=== PATIENT | male | born 1980 | race Caucasian/White ===

== ENCOUNTER 2017-08-29 12:37 | Inpatient (IN) | payer MEDICAID ==
[~2017-08-29] VITALS: Ht 165.1 cm; Wt 66.2 kg
[2017-08-29] VITALS (11 sets, daily range): BP systolic 74–160; BP diastolic 33–112
[2017-08-29] MEDS ORDERED: Acetaminophen 650 MG SUPP RECTAL ONE ×2 (12:42→12:45)
[2017-08-29] MEDS ORDERED: Cefepime HCl 1 GM in NS 55 ML IV STA (12:42)
[2017-08-29] MEDS ORDERED: Midazolam for drip 50 MG in NS 90 ML IV ONE (12:45)
[2017-08-29] MEDS ORDERED: Etomidate 40mg/20ml Inj IV ONE (12:45)
[2017-08-29] MEDS ORDERED: Vancomycin 1 GM in NS 275 ML IV ONE (12:45)
[2017-08-29] MEDS ORDERED: Midazolam 2mg/2ml Inj IVP ONE ×3 (12:45→16:00)
--- NOTE | 2017-08-29 13:05 | Emergency Room Report ---
History of Present Illness General Chief Complaint: Overdose Source: EMS Present Illness HPI Paramedics were called to patient's hotel room - possibly by demand generator manager. Patient found unresponsive with drug paraphernalia. Resp rate elevated, but still given Narcan with possible improvement. Glucose was in 50's and D50 given. Repeat glucose in 100's. Patient hot to touch. No evidence of trauma. No other history available. Allergies: Coded Allergies: UNABLE TO ASSESS (Unverified , 08/29/17) Patient History Limited by: medical condition Past Medical History: see triage record Social History: Reports: drug use Social History Narrative from hotel Reviewed Nursing Documentation: PMH: Agreed; PSxH: Agreed Nursing Documentation-PMH Past Medical History: Deferred Review of Systems All Other Systems: limited Physical Exam Vital Signs Date Time Temp Pulse Resp B/P (MAP) Pulse Ox O2 Delivery O2 Flow Rate FiO2 08/29/17 12:28 101.7 138 28 137/115 89 Non-Rebreather 15.0 101.7 Sp02 EP Interpretation: reviewed, abnormal - interpreted as low by me General Appearance: severe distress, Stupor Head: normocephalic, atraumatic Eyes: bilateral eye PERRL - 4 mm, bilateral eye Scleral Injection ENT: dry mucus membranes - gag present Neck: supple Respiratory: respiratory distress, decreased breath sounds Cardiovascular #1: tachycardia Cardiovascular #2: 2+ radial (L), 2+ femoral (R) Gastrointestinal: decreased bowel sounds, scaphoid Genitourinary: normal inspection Musculoskeletal: back normal, digits/nails normal Neurologic: other - stupor, occasionally moving all 4 - mostely at random Psychiatric: other - stupor Skin: other - fine erythematous rash dependent portions Procedures Critical Care Time Critical Care Time Total Critical Care Time: 120 min bedside evaluation and treatment excludes procedures (EKG, intubation, CVP). Reason for critical care: resp failure, severe sepsis, NSTEMI, rhabdomyolysis, hypotension, sedation Possible complications: hypotension, hypertension, MA, shock, arrhythmias, metabolic acidosis, end organ damage, respiratory failure. Interventions: sepsis resuscitation, repeat eval, intubation, antibiotics, bicarb drip. sedation, discussion with admitting MD and CC MD Course: Patient presents with ALOC, fever and hypoxia with h/o drug paraphernalia. Sepsis resuscitation initiated. Even though gag present, severe hypoxia with evidence of aspiration pneumonia. Intubated. Even on vent , hypoxia and acidosis on ABG. Vent changed. Improved oxygenation. Evidence of metabolic acidosis and rhabdo. Bicarb given. Multiple assessments for sedation on versed as well as sepsis re-evaluation. Hypotension - CVP started. Again fluid bolus as venous pressure by ultrasound low. Levophed begun. Improved mentation needing sedation. OG ordered for vomitus (no new aspiration around ET tube). MD at bedside helping with sedation. + troponin - aspirin given. Unable to give metoprolol and not advised to give heparin/lovanox. Discussed with admitting MD as well as critical career services assistant. Patient improved but critical. Consultations: nursing staff, EMS, admitting and CC MD Performed by: Dr. Gibson Tolerated well condition = critical Central Line Central Line : Consent: Emergent Central Line Lumen: triple Maximal Sterile Barrier Tech: yes cap, yes mask, yes sterile gown, yes sterile gloves, yes large sterile sheet, yes hand hygiene, yes chlorhexidine prep Central Line Postion: femoral (R) Anesthesia: Lidocaine cc's of anesthesia: 2 Complications: none Central Line Post Position: sutured, good blood return Attempts: One Patient Tolerated: Well Complications: None Intubation Intubation : Consent: Emergent Intubation Method: orotracheal Tube Size (cm): 7.5 Medications: Etomidate Breath Sounds after Intubation: equal Intubation Complications: no complications Post Intubation Xray: Yes Attempts: One Medical Decision Making Diagnostic Impression: Primary Impression: Severe sepsis Additional Impressions: Respiratory failure Qualified Codes: J96.01 - Acute respiratory failure with hypoxia NSTEMI (non-ST elevated myocardial infarction) Aspiration pneumonia Qualified Codes: J69.0 - Pneumonitis due to inhalation of food and vomit LUCRECIA (acute kidney injury) Rhabdomyolysis Qualified Codes: T79.6XXA - Traumatic ischemia of muscle, initial encounter Substance abuse ER Course Patient is febrile and tachypneic and unresponsive. Differential includes sepsis, pneumonia, bleed amongst others. The patient is in severe distress at this time and needs immediate intubation and sepsis resuscitation. Antibiotics will be started. The patient is intubated with etomidate.. Breath sounds bilaterally at 23 cm at the teeth. Initially O2 saturation was increased up to 98% and then look like it was decreasing possibly due to faulty sensor. Ventilator settings were ordered and a blood gas will be obtained and a half an hour. Based on ABG, vent changed inc peep and rate. Sats now 100%. BP dropped Bolus again and bicarb drip ordered. CVP started. Bicarb bolus. (Temporarily held versed) During CVP, venous pressure appears low - fluids continuing. BP better and Versed restart with bolus dose. Hypotensive again and levophed ordered. Admit Dr. Anaya and consultation with Dr. Andre. Discussed with both. BP better and 5/5 strength all 4 with eyes open. Vomit food. Versed bolus repeated. No new aspiration. OG ordered. Titrating levophed under my direct supervision. Patient to CT with RN and RT. No bleed. Admit ICU - critical. Laboratory Tests Test 08/29/17 10:50 08/29/17 12:45 08/29/17 13:20 08/29/17 13:48 Lactic Acid Level Pending 5.50 mmol/L (0.4-2.0) H White Blood Count 8.5 K/UL (4.8-10.8) Red Blood Count 5.95 M/UL (4.70-6.10) Hemoglobin 18.4 G/DL (14.2-18.0) *H Hematocrit 56.6 % (42.0-52.0) H Mean Corpuscular Volume 95 FL (80-99) Mean Corpuscular Hemoglobin 30.9 PG (27.0-31.0) Mean Corpuscular Hemoglobin Concent 32.5 G/DL (32.0-36.0) Red Cell Distribution Width 11.8 % (11.6-14.8) Platelet Count 359 K/UL (150-450) Mean Platelet Volume 7.7 FL (6.5-10.1) Neutrophils (%) (Auto) 75.7 % (45.0-75.0) H Lymphocytes (%) (Auto) 10.1 % (20.0-45.0) L Monocytes (%) (Auto) 13.3 % (1.0-10.0) H Eosinophils (%) (Auto) 0.1 % (0.0-3.0) Basophils (%) (Auto) 0.8 % (0.0-2.0) Prothrombin Time 12.2 SEC (9.30-11.50) H Prothrombin Time INR 1.2 (0.9-1.1) H PTT 24 SEC (23-33) Sodium Level 141 MMOL/L (136-145) Potassium Level 5.1 MMOL/L (3.5-5.1) Chloride Level 101 MMOL/L (98-107) Carbon Dioxide Level 22 MMOL/L (21-32) Anion Gap 19 mmol/L (5-15) H Blood Urea Nitrogen 31 mg/dL (7-18) H Creatinine 3.6 MG/DL (0.55-1.30) H Estimate Glomerular Filtration Rate 19.0 mL/min (>60) Glucose Level 99 MG/DL (74-106) Calcium Level 8.7 MG/DL (8.5-10.1) Total Bilirubin 1.2 MG/DL (0.2-1.0) H Direct Bilirubin 0.2 MG/DL (0.0-0.3) Aspartate Amino Transferase (AST) 478 U/L (15-37) H Alanine Aminotransferase (ALT) 159 U/L (12-78) H Alkaline Phosphatase 53 U/L (46-116) Total Creatine Kinase > 77589 U/L (26-308) H Troponin I 1.014 ng/mL (0.000-0.056) Pro-B-Type Natriuretic Peptide 2143 pg/mL (0-125) H Total Protein 7.4 G/DL (6.4-8.2) Albumin 4.0 G/DL (3.4-5.0) Globulin 3.4 g/dL Albumin/Globulin Ratio 1.2 (1.0-2.7) Lipase > 2000 U/L (73-393) H Salicylates Level < 0.2 ug/mL (2.8-20) L Acetaminophen Level < 2 MCG/ML (10-30) L Serum Alcohol < 3 mg/dL Urine Color Yellow Urine Appearance Clear Urine pH 7 (4.5-8.0) Urine Specific [place] 1.010 (1.005-1.035) Urine Protein 2+ (NEGATIVE) H Urine Glucose (UA) Negative (NEGATIVE) Urine Ketones 1+ (NEGATIVE) H Urine Occult Blood Negative (NEGATIVE) Urine Nitrite Negative (NEGATIVE) Urine Bilirubin Negative (NEGATIVE) Urine Urobilinogen Normal MG/DL (0.0-1.0) Urine Leukocyte Esterase 1+ (NEGATIVE) H Urine RBC 5-10 /HPF (0 - 0) H Urine WBC 5-10 /HPF (0 - 0) H Urine Squamous Epithelial Cells None /LPF (NONE/OCC) Urine Bacteria Few /HPF (NONE) Urine Opiates Screen Positive (NEGATIVE) H Urine Barbiturates Screen Negative (NEGATIVE) Phencyclidine (PCP) Screen Negative (NEGATIVE) Urine Amphetamines Screen Positive (NEGATIVE) H Urine Benzodiazepines Screen Negative (NEGATIVE) Urine Cocaine Screen Positive (NEGATIVE) H Urine Marijuana (THC) Screen Positive (NEGATIVE) H Arterial Blood pH 7.200 (7.350-7.450) Arterial Blood Partial Pressure CO2 44.6 mmHg (35.0-45.0) Arterial Blood Partial Pressure O2 38.3 mmHg (75.0-100.0) Arterial Blood HCO3 17.4 mmol/L (22.0-26.0) L Arterial Blood Oxygen Saturation 65.8 % (92.0-98.0) L Arterial Blood Base Excess -10.3 Miguel Test Positive Test 08/29/17 17:13 Lactic Acid Level 4.10 mmol/L (0.66-2.22) H EKG Diagnostic Results Rate: tachycardiac ST Segments: no acute changes Rhythm Strip Diag. Results EP Interpretation: yes Rhythm: no PVC's, no ectopy, other - ST Chest X-Ray Diagnostic Results Chest X-Ray Diagnostic Results : Chest X-Ray Ordered: Yes # of Views/Limited/Complete: 1 View Indication: Other EP Interpretation: Yes Interpretation: no effusion, no pneumothorax, other - R infiltrate Impression: Other Electronically Signed by: Electronically signed by Jean Gibson MD CT/MRI/US Diagnostic Results CT/MRI/US Diagnostic Results : Imaging Test Ordered: head Impression motion - no mass or bleed Last Vital Signs Date Time Temp Pulse Resp B/P (MAP) Pulse Ox O2 Delivery O2 Flow Rate FiO2 08/29/17 12:59 101.8 08/29/17 12:28 138 28 137/115 89 Non-Rebreather 15.0 Status: improved Disposition: ADMITTED INPATIENT Condition: Critical Scripts Unable to Obtain Active Prescriptions or Reported Meds Jean Gibson M.D. Aug 29, 2017 13:05
[2017-08-29 13:13] LABS: INR 1.2 (0.9-1.1)
[2017-08-29 13:15] LABS: BASOPHILS % (AUTO) 0.8 % (0.0-2.0); EOSINOPHILS % (AUTO) 0.1 % (0.0-3.0); HEMATOCRIT 56.6 % (42.0-52.0); LYMPHOCYTES % (AUTO) 10.1 % (20.0-45.0); MEAN CORPUSCULAR VOLUME 95 FL (80-99); MONOCYTES % (AUTO) 13.3 % (1.0-10.0); NEUTROPHILS % (AUTO) 75.7 % (45.0-75.0); PLATELET COUNT 359 K/UL (150-450); RED BLOOD COUNT 5.95 M/UL (4.70-6.10); RED CELL DISTRIBUTION WIDTH 11.8 % (11.6-14.8); WHITE BLOOD COUNT 8.5 K/UL (4.8-10.8)
[2017-08-29 13:23] LABS: ANION GAP 19 mmol/L (5-15); BLOOD UREA NITROGEN 31 mg/dL (7-18); CALCIUM 8.7 MG/DL (8.5-10.1); CARBON DIOXIDE 22 MMOL/L (21-32); CHLORIDE 101 MMOL/L (98-107); CREATININE 3.6 MG/DL (0.55-1.30); POTASSIUM 5.1 MMOL/L (3.5-5.1); SODIUM 141 MMOL/L (136-145)
[2017-08-29 13:24] LABS: HEMOGLOBIN 18.4 G/DL (14.2-18.0)
[2017-08-29 13:32] LABS: ALANINE AMINOTRANSFERASE 159 U/L (12-78); ALBUMIN/GLOBULIN RATIO 1.2 (1.0-2.7); ALKALINE PHOSPHATASE 53 U/L (46-116); ASPARTATE AMINO TRANSFERASE 478 U/L (15-37); BILIRUBIN,TOTAL 1.2 MG/DL (0.2-1.0)
[2017-08-29 13:42] LABS: BILIRUBIN,DIRECT 0.2 MG/DL (0.0-0.3)
[2017-08-29 13:51] LABS: CREATINE KINASE > 10000 U/L (26-308)
[2017-08-29 14:13] LABS: APPEARANCE,URINE CLEAR; BILIRUBIN, URINE NEGATIVE (NEGATIVE); GLUCOSE, URINE (UA) NEGATIVE (NEGATIVE); KETONES,URINE 1+ (NEGATIVE); LEUKOCYTE ESTERASE ,URINE 1+ (NEGATIVE); NITRITE,URINE NEGATIVE (NEGATIVE); PH,URINE 7 (4.5-8.0); PROTEIN,URINE 2+ (NEGATIVE); UROBILINOGEN,URINE NORMAL MG/DL (0.0-1.0)
[2017-08-29] MEDS ORDERED: Sodium Bicarbonate 100 ML in NS 1000ml 1,000 ML IV SCH (14:15)
[2017-08-29 14:25] LABS: COLOR,URINE YELLOW
[2017-08-29] MEDS ORDERED: Sodium Bicarbonate 50ml Carp IV ONE (14:30)
[2017-08-29] MEDS ORDERED: Midazolam 2mg/2ml Inj ONE (14:42)
[2017-08-29] MEDS ORDERED: Nitroglycerin Subl 0.4mg tab SL PRN (14:45)
[2017-08-29] MEDS ORDERED: Albuterol/Ipratropium 3ml neb HHN PRN (14:45)
[2017-08-29] MEDS ORDERED: Miralax 17gm pkt ORAL PRN (14:45)
--- NOTE | 2017-08-29 16:42 | Consultation ---
History of Present Illness General Date patient seen: Aug 29, 2017 Chief Complaint: Overdose Present Illness HPI 37 y/o M with unknown medical history is brought to ED from hotel bed on 08/29 after being found unresponsive, diaphoretic w/ drug paraphernalia on bed and restroom (empty heroin bags and needles). BG 53 and initial BP 67/15 per EMS. Given 2 doses of Narcan 2mg. Patient intubated in the ED. febrile up to 102.4. Allergies: Coded Allergies: UNABLE TO ASSESS (Unverified , 08/29/17) Medication History Unable to Obtain Active Prescriptions or Reported Meds Patient History Healthcare decision maker Resuscitation status Advanced Directive on File Patient History Narrative Pmhx: as above Shx: reviewed Fhx: non contributory Review of Systems ROS Narrative unable to obtain Physical Exam Physical Exam Narrative General: intubated, restless HEENT: ETT in place Heart: RRR, no murmurs Lungs: CTA x2 ABD: S+D, ND, BS+ Extremity no edema or cellulitis Last 24 Hour Vital Signs Date Time Temp Pulse Resp B/P (MAP) Pulse Ox O2 Delivery O2 Flow Rate FiO2 08/29/17 16:10 93/54 08/29/17 16:02 112/47 08/29/17 15:58 126/47 08/29/17 15:55 20 08/29/17 15:53 140/81 08/29/17 15:48 76/53 08/29/17 15:43 100 16 82/61 99 Endotracheal Tube 100 08/29/17 15:43 82/61 08/29/17 15:40 22 08/29/17 15:38 83/35 08/29/17 15:34 70/42 08/29/17 15:30 69/33 08/29/17 15:26 64/41 08/29/17 15:23 61/43 08/29/17 15:15 17 08/29/17 15:12 99 20 100 08/29/17 15:07 111 22 74/33 Endotracheal Tube 08/29/17 15:00 18 08/29/17 14:45 24 08/29/17 14:30 22 08/29/17 14:13 24 08/29/17 14:02 102.4 121 27 160/112 98 Mechanical Ventilator 100 102.4 08/29/17 13:53 27 08/29/17 13:38 30 08/29/17 13:23 28 08/29/17 13:10 132 34 Non-Rebreather 08/29/17 12:59 101.8 08/29/17 12:50 124 26 100 08/29/17 12:49 132 34 152/102 90 Non-Rebreather 15.0 08/29/17 12:28 101.7 138 28 137/115 89 Non-Rebreather 15.0 101.7 Laboratory Tests Test 08/29/17 12:45 08/29/17 13:20 08/29/17 13:48 White Blood Count 8.5 K/UL (4.8-10.8) Red Blood Count 5.95 M/UL (4.70-6.10) Hemoglobin 18.4 G/DL (14.2-18.0) *H Hematocrit 56.6 % (42.0-52.0) H Mean Corpuscular Volume 95 FL (80-99) Mean Corpuscular Hemoglobin 30.9 PG (27.0-31.0) Mean Corpuscular Hemoglobin Concent 32.5 G/DL (32.0-36.0) Red Cell Distribution Width 11.8 % (11.6-14.8) Platelet Count 359 K/UL (150-450) Mean Platelet Volume 7.7 FL (6.5-10.1) Neutrophils (%) (Auto) 75.7 % (45.0-75.0) H Lymphocytes (%) (Auto) 10.1 % (20.0-45.0) L Monocytes (%) (Auto) 13.3 % (1.0-10.0) H Eosinophils (%) (Auto) 0.1 % (0.0-3.0) Basophils (%) (Auto) 0.8 % (0.0-2.0) Prothrombin Time 12.2 SEC (9.30-11.50) H Prothromb Time International Ratio 1.2 (0.9-1.1) H Activated Partial Thromboplast Time 24 SEC (23-33) Sodium Level 141 MMOL/L (136-145) Potassium Level 5.1 MMOL/L (3.5-5.1) Chloride Level 101 MMOL/L (98-107) Carbon Dioxide Level 22 MMOL/L (21-32) Anion Gap 19 mmol/L (5-15) H Blood Urea Nitrogen 31 mg/dL (7-18) H Creatinine 3.6 MG/DL (0.55-1.30) H Estimat Glomerular Filtration Rate 19.0 mL/min (>60) Glucose Level 99 MG/DL (74-106) Lactic Acid Level 5.50 mmol/L (0.4-2.0) H Calcium Level 8.7 MG/DL (8.5-10.1) Total Bilirubin 1.2 MG/DL (0.2-1.0) H Direct Bilirubin 0.2 MG/DL (0.0-0.3) Aspartate Amino Transf (AST/SGOT) 478 U/L (15-37) H Alanine Aminotransferase (ALT/SGPT) 159 U/L (12-78) H Alkaline Phosphatase 53 U/L (46-116) Total Creatine Kinase > 76983 U/L (26-308) H Troponin I 1.014 ng/mL (0.000-0.056) Pro-B-Type Natriuretic Peptide 2143 pg/mL (0-125) H Total Protein 7.4 G/DL (6.4-8.2) Albumin 4.0 G/DL (3.4-5.0) Globulin 3.4 g/dL Albumin/Globulin Ratio 1.2 (1.0-2.7) Lipase > 2000 U/L (73-393) H Salicylates Level < 0.2 ug/mL (2.8-20) L Acetaminophen Level < 2 MCG/ML (10-30) L Serum Alcohol < 3 mg/dL Urine Color Yellow Urine Appearance Clear Urine pH 7 (4.5-8.0) Urine Specific [place] 1.010 (1.005-1.035) Urine Protein 2+ (NEGATIVE) H Urine Glucose (UA) Negative (NEGATIVE) Urine Ketones 1+ (NEGATIVE) H Urine Occult Blood Negative (NEGATIVE) Urine Nitrite Negative (NEGATIVE) Urine Bilirubin Negative (NEGATIVE) Urine Urobilinogen Normal MG/DL (0.0-1.0) Urine Leukocyte Esterase 1+ (NEGATIVE) H Urine RBC 5-10 /HPF (0 - 0) H Urine WBC 5-10 /HPF (0 - 0) H Urine Squamous Epithelial Cells None /LPF (NONE/OCC) Urine Bacteria Few /HPF (NONE) Urine Opiates Screen Positive (NEGATIVE) H Urine Barbiturates Screen Negative (NEGATIVE) Phencyclidine (PCP) Screen Negative (NEGATIVE) Urine Amphetamines Screen Positive (NEGATIVE) H Urine Benzodiazepines Screen Negative (NEGATIVE) Urine Cocaine Screen Positive (NEGATIVE) H Urine Marijuana (THC) Screen Positive (NEGATIVE) H Arterial Blood pH 7.200 (7.350-7.450) Arterial Blood Partial Pressure CO2 44.6 mmHg (35.0-45.0) Arterial Blood Partial Pressure O2 38.3 mmHg (75.0-100.0) Arterial Blood HCO3 17.4 mmol/L (22.0-26.0) L Arterial Blood Oxygen Saturation 65.8 % (92.0-98.0) L Arterial Blood Base Excess -10.3 Miguel Test Positive Height (Feet): 5 Height (Inches): 8.00 Weight (Pounds): 180 Medications Current Medications Medications (Trade) Dose Ordered Sig/Krystyna Route PRN Reason Start Time Stop Time Status Last Admin Dose Admin Acetaminophen (Tylenol) 650 mg Q4H PRN ORAL Fever (temp>100.5F) 08/29/17 14:45 09/28/17 14:44 Albuterol/ Ipratropium (Albuterol/ Ipratropium) 3 ml Q4H PRN HHN Shortness of Breath 08/29/17 14:45 09/03/17 14:44 Dextrose (Dextrose 50%) 25 ml STAT PRN IV Hypoglycemia 08/29/17 14:45 09/28/17 14:44 Dextrose (Dextrose 50%) 50 ml STAT PRN IV Hypoglycemia 08/29/17 16:00 09/28/17 15:59 Dextrose/Sodium Chloride 1,000 ml @ 75 mls/hr [id number] IV 08/29/17 14:41 09/28/17 14:40 UNV Heparin Sodium (Porcine) (Heparin 5000 units/ml) 5,000 units EVERY 12 HOURS SUBQ 08/29/17 21:00 09/28/17 20:59 UNV Lorazepam (Ativan 2mg/ml 1ml) 2 mg Q2H PRN IV agitation 08/29/17 14:45 09/05/17 14:44 Morphine Sulfate (Morphine Sulfate) 4 mg Q4H PRN IVP Severe Pain (Pain Scale 7-10) 08/29/17 14:45 09/05/17 14:44 Nitroglycerin (Ntg) 0.4 mg Q5M PRN SL Prn Chest Pain 08/29/17 14:45 09/28/17 14:44 Norepinephrine Bitartrate 4 mg/ Dextrose 250 ml @ 0 mls/hr Q24H IV 08/29/17 14:30 09/28/17 14:29 08/29/17 15:23 Ondansetron HCl (Zofran) 4 mg Q6H PRN IVP Nausea & Vomiting 08/29/17 14:45 09/28/17 14:44 Polyethylene Glycol (Miralax) 17 gm DAILYPRN PRN ORAL Constipation 08/29/17 14:45 09/28/17 14:44 Sodium Bicarbonate 100 ml/Sodium Chloride 1,100 ml @ 300 mls/hr Q3H40M IV 08/29/17 14:15 09/28/17 14:14 08/29/17 14:30 Assessment/Plan Assessment/Plan Abx: IV Vanco x1 08/29 Cefepime x1 08/29 Flagyl x1 08/29 Assessment: Shock Drug overdose -UDS + opiates, amphetaimines, THC, cocaine -+empty heroin bags/?needles (found on hotel room) Rule out sepsis -CXR p -u/a p -Bcx p Multiorgan failure -LUCRECIA -Transaminitis -VDRF (airway protection) Lactic acidosis Rhabdomyolisis Pancreatitis- drug induced -neg alcohol levels Plan: -Continue IV Vanco and Start IV Zosyn pending cultures -f/u cx (Bcx, u/a, ucx) -CXR -f/u cx -Monitor CBC/CMP, temperatures -ETT care -ICU care/support -aspiration precautions Thank you for this consultation. Will continue to follow along with you. Discussed with Krystal Garcia M.D. Aug 29, 2017 16:42
--- NOTE | 2017-08-29 17:05 | Diagnostic Imaging Report ---
Indication: Post intubation Technique: One view of the chest Comparison: None Findings: There is diffuse bilateral interstitial and airspace disease, more severe on the right than on the left. The pleural spaces are clear. The heart size is normal. There is an endotracheal tube in place, tip projecting approximately 6 cm above the alonzo. Impression: Satisfactory the tracheal intubation Bilateral interstitial and airspace disease, more severe on the right than on the left
--- NOTE | 2017-08-29 17:22 | Diagnostic Imaging Report ---
Indications: Altered mental status Technique: Spiral acquisitions obtained through the brain. Angled axial and coronal 5 x 5 mm slices were reconstructed. Total dose length product 2393 mGycm. CTDI vol(s) 70.38 x2 mGy. Dose reduction achieved using automated exposure control Comparison: None. Findings: There is considerable image degradation due to motion artifact despite repeat images obtained. No gross acute intracranial hemorrhage or edema, mass effect, nor midline shift. Normal-sized ventricles and extra axial CSF spaces. Normal white differentiation grossly. The calvarium is intact. Impression: Limited exam due to motion artifact. No gross acute intracranial bleed or mass effect The CT scanner at [facility] is accredited by the [employer] and the scans are performed using protocols designed to limit radiation exposure to as low as reasonably achievable to attain images of sufficient resolution adequate for diagnostic evaluation.
[2017-08-29] MEDS: LORazepam Inj 2mg/ml 1ml IV PRN (18:10)
[2017-08-29] MEDS: D5 1/2NS 1,000 ML IV SCH (18:10)
[2017-08-29] MEDS: Midazolam/D5W 100ml 100 ML IVPB PRN (18:49)
[2017-08-29] MEDS: Piperacillin/Tazobactam 3.375 GM in NS 110 ML IVPB SCH (20:57)
[2017-08-29] MEDS: Pantoprazole Inj IVP SCH (20:57)
[2017-08-29] MEDS: Heparin 5000 units/ml inj SUBQ SCH (20:59)
[2017-08-29] MEDS: Norepinephrine Bitartrate 8 MG in D5W 500ml 492 ML IV SCH (21:16)
--- NOTE | 2017-08-29 21:45 | History and Physical Report ---
DATE OF ADMISSION: 08/29/2017 CONSULTANTS: 1. Arpita Andre M.D. 2. Carl Carranza M.D. CHIEF COMPLAINT: Respiratory failure and sepsis. BRIEF HISTORY: The patient is a 37-year-old male, presents to [place] ER lethargic, currently intubated, sedated, lethargic in the ER, unable to obtain history, from chart. PAST MEDICAL HISTORY: Aspiration pneumonia, rhabdomyolysis, NSTEMI, LUCRECIA, and sepsis. PAST SURGICAL HISTORY: Unknown. MEDICATIONS: Heparin, dextrose, albuterol, Zofran, nitroglycerin, Tylenol, morphine, MiraLAX, and norepinephrine. ALLERGIES: Unable to obtain. SOCIAL HISTORY: Unable to obtain. PHYSICAL EXAMINATION: GENERAL: The patient is intubated, lethargic in the ER [place], unable to obtain history. VITAL SIGNS: Only thing we have is blood pressure currently 93/54. Other vitals are pending. CARDIOVASCULAR: Distant. LUNGS: Distant. ABDOMEN: Bowel sounds positive. Distant. EXTREMITIES: No cyanosis, clubbing, or edema. NEUROLOGIC: The patient is flaccid in bed, not following directions. LABORATORY AND DIAGNOSTIC DATA: Hemoglobin 18.4, otherwise CBC is normal. BMP shows BUN and creatinine 31/3.6, otherwise BMP is normal. Lactic acid 5.5. AST 478 and ALT 159. Troponin 1.014. BMP 2143. Lipase greater than 2000. INR is 1.2 and PTT 24. Urinalysis 2+ protein, 1+ glucose and 1+ leukocyte esterase. Urine toxicology positive for opiates, amphetamine, cocaine, and marijuana. ASSESSMENT: 1. Respiratory failure. 2. Sepsis. 3. Renal failure. 4. Aspiration pneumonia. 5. Non-ST segment elevation myocardial infarction. 6. Acute kidney injury. 7. Elevated liver function test . 8. Elevated troponin. PLAN: 1. troponin. 2. Antibiotic per Infectious Disease. 3. CBC and BMP in the morning. 4. IV fluids. 5. Dr. Andre, Dr. Carranza, Dr. Veloz, Dr. Chavez, and Dr. Mcdonough to consult. Reid Anaya, D.O. DR: YAHIR JOB#: [id number] CC:
[2017-08-29] MEDS: Morphine Sulfate 4mg/ml Inj (IV USE ONLY) IVP PRN (22:24)
[2017-08-30] VITALS (43 sets, daily range): BP systolic 86–127; BP diastolic 39–86
[2017-08-30] MEDS: LORazepam Inj 2mg/ml 1ml IV PRN ×6 (00:03→22:50)
[2017-08-30] MEDS: Midazolam/D5W 100ml 100 ML IVPB PRN ×3 (04:29→18:58)
[2017-08-30 05:48] LABS: HEMATOCRIT 46.5 % (42.0-52.0); HEMOGLOBIN 16.1 G/DL (14.2-18.0); MEAN CORPUSCULAR VOLUME 94 FL (80-99); PLATELET COUNT 219 K/UL (150-450); RED BLOOD COUNT 4.93 M/UL (4.70-6.10); RED CELL DISTRIBUTION WIDTH 12.3 % (11.6-14.8); WHITE BLOOD COUNT 14.6 K/UL (4.8-10.8)
[2017-08-30 05:51] LABS: INR 1.3 (0.9-1.1)
[2017-08-30 05:59] LABS: ANION GAP 10 mmol/L (5-15); BLOOD UREA NITROGEN 44 mg/dL (7-18); CARBON DIOXIDE 24 MMOL/L (21-32); CHLORIDE 109 MMOL/L (98-107); CREATININE 5.2 MG/DL (0.55-1.30); POTASSIUM 5.7 MMOL/L (3.5-5.1); SODIUM 143 MMOL/L (136-145)
[2017-08-30 06:12] LABS: ALANINE AMINOTRANSFERASE 796 U/L (12-78); ALBUMIN 2.6 G/DL (3.4-5.0); ALKALINE PHOSPHATASE 41 U/L (46-116); ASPARTATE AMINO TRANSFERASE 2439 U/L (15-37); BILIRUBIN,DIRECT 0.2 MG/DL (0.0-0.3); BILIRUBIN,TOTAL 1.2 MG/DL (0.2-1.0); LACTATE DEHYDROGENASE 2627 U/L (81-234); PHOSPHORUS 6.3 MG/DL (2.5-4.9)
[2017-08-30] MEDS: D5 1/2NS 1,000 ML IV SCH (06:50)
[2017-08-30] MEDS: Piperacillin/Tazobactam 3.375 GM in NS 110 ML IVPB SCH ×2 (09:23→21:00)
[2017-08-30] MEDS: Pantoprazole Inj IVP SCH ×2 (09:24→21:15)
[2017-08-30] MEDS: Heparin 5000 units/ml inj SUBQ SCH ×2 (09:26→21:16)
--- NOTE | 2017-08-30 09:54 | Infectious Diseases Prog Note ---
Assessment/Plan Assessment/Plan Abx: IV Vanco x1 08/29 Cefepime x1 08/29 Flagyl x1 08/29 Assessment: Shock Drug overdose -UDS + opiates, amphetamines, THC, cocaine -+empty heroin needles (found on hotel room) Aspiration PNA vs ARDS -CXR: Bilateral interstitial and airspace disease, more severe on the right than on the left Rule out sepsis -u/a wbc 5-10, nit neg, leuk +1; cx p -Bcx p Multiorgan failure -LUCRECIA, worsening -Transaminitis, worse (shock liver) -VDRF (airway protection) Lactic acidosis; improving Rhabdomyolisis Pancreatitis- drug induced -neg alcohol levels Plan: -Continue empiric IV Vanco and IV Zosyn #2 pending cultures -f/u cx (Bcx, ucx) -f/u cx -Monitor CBC/CMP, temperatures -ETT care -ICU care/support -aspiration precautions -CBC, CMP, CK, lipase, lactic acid am Thank you for this consultation. Will continue to follow along with you. Discussed with RN. Subjective Allergies: Coded Allergies: UNABLE TO ASSESS (Unverified , 08/29/17) Subjective Tm 102.4 levo on hold wbc 14 LFTs worsening Lactic acid improving Fio2 100% Objective Vital Signs Last 24 Hour Vital Signs Date Time Temp Pulse Resp B/P (MAP) Pulse Ox O2 Delivery O2 Flow Rate FiO2 08/30/17 09:24 20 08/30/17 09:20 111 30 100 08/30/17 08:00 100 08/30/17 08:00 107 08/30/17 08:00 100.0 111 25 109/57 (74) 97 100.0 08/30/17 08:00 Mechanical Ventilator 08/30/17 07:30 110 24 94/52 (66) 97 08/30/17 07:00 111 22 90/39 (56) 96 110 08/30/17 06:37 108 21 100 08/30/17 06:30 110 22 99/56 (70) 97 110 08/30/17 06:00 20 08/30/17 06:00 109 22 101/60 (74) 97 110 08/30/17 05:30 109 22 94/48 (63) 97 110 08/30/17 05:24 108 21 100 08/30/17 05:00 110 22 98/52 (67) 97 110 /20/18 05:00 98/52 720/18 05:00 20 [id number] 05:00 110 26 98/52 (67) 98 110 7/20/18 04:30 108 22 86/43 (57) 97 110 7/20/18 04:30 108 21 100/43 (62) 99 108 7/20/18 04:29 19 7/20/18 04:00 108 7/20/18 04:00 99.8 108 21 86/43 (57) 99 99.8 108 720/18 04:00 100 [id number] 04:00 85/44 720/18 04:00 Mechanical Ventilator 08/30/17 03:30 110 21 108/60 (76) 99 110 720/18 03:26 111 30 100 720/18 03:00 110 21 100/52 (68) 99 109 7/20/18 03:00 100/52 718 02:30 109 23 119/61 (80) 97 109 20/18 02:00 105/60 720/18 02:00 23 08/30/17 02:00 109 22 105/60 (75) 96 109 720/18 01:30 109 25 123/67 (85) 96 109 20/18 01:30 110 22 100 08/30/18 01:00 109/65 720/18 01:00 22 08/30/17 01:00 108 19 109/65 (80) 96 108 20/18 00:30 107 19 110/63 (79) 96 107 2018 00:00 100 2018 00:00 127/63 720/18 00:00 26 2018 00:00 99.9 108 19 127/63 (84) 96 99.9 108 20/18 00:00 107 2018 00:00 Mechanical Ventilator 08/29/17 23:30 122 21 122/67 (85) 96 106 08/29/18 23:23 108 20 100 7/18 23:00 107 19 112/67 (82) 96 107 18 23:00 112/67 7/18 23:00 19 7/18 22:00 118/70 7/19/18 22:00 108 21 118/70 (86) 96 108 7/19/18 21:30 109 20 106/58 (74) 96 109 7/19/18 21:16 124/63 7/19/18 21:16 21 7/19/18 21:00 111 21 124/63 (83) 96 111 7/19/18 20:38 111 22 100 7/19/18 20:30 109 19 124/68 (86) 96 109 7/19/18 20:00 100 19/18 20:00 138/80 719/18 20:00 18 7//18 20:00 Mechanical Ventilator 18 20:00 99.0 109 20 138/80 (99) 97 99.0 109 08/29/18 19:30 109 20 100 7/19/18 19:30 107 18 Mechanical Ventilator 100 18 19:00 139/77 719/18 18:49 18 7/18 18:45 109 19/18 18:35 86/45 719/18 18:00 60 7/19/18 17:52 Mechanical Ventilator 18 17:03 108 23 60 7/19/18 17:00 102.4 100 20 93/54 99 Endotracheal Tube 15.0 100 102.4 100 08/29/18 16:45 107 19 92 Endotracheal Tube 08/29/18 16:10 93/54 719/18 16:02 112/47 7/19/18 15:58 126/47 719/18 15:55 20 719/18 15:53 140/81 7/19/18 15:48 76/53 7/19/18 15:43 100 16 82/61 99 Endotracheal Tube 100 19/18 15:43 82/61 7/19/18 15:40 22 7/19/18 15:38 83/35 7/19/18 15:34 70/42 7/19/18 15:30 69/33 7/19/18 15:26 64/41 7/19/18 15:23 61/43 7/19/18 15:15 17 7/19/18 15:12 99 20 100 /19/18 15:07 111 22 74/33 Endotracheal Tube 19/18 15:00 18 7/19/18 14:45 24 08/29/17 14:30 22 08/29/17 14:13 24 08/29/17 14:02 102.4 121 27 160/112 98 Mechanical Ventilator 100 102.4 08/29/17 13:53 27 08/29/17 13:38 30 08/29/17 13:23 28 08/29/17 13:10 132 34 Non-Rebreather 08/29/17 12:59 101.8 08/29/17 12:50 124 26 100 08/29/17 12:49 132 34 152/102 90 Non-Rebreather 15.0 08/29/17 12:28 101.7 138 28 137/115 89 Non-Rebreather 15.0 101.7 Height (Feet): 5 Height (Inches): 8.00 Weight (Pounds): 165 Objective General: intubated, restless HEENT: ETT in place Heart: RRR, no murmurs Lungs: CTA x2 ABD: S+D, ND, BS+ Extremity no edema or cellulitis Laboratory Tests Test 08/29/17 12:45 08/29/17 13:20 08/29/17 13:48 08/29/17 17:13 White Blood Count 8.5 K/UL (4.8-10.8) Red Blood Count 5.95 M/UL (4.70-6.10) Hemoglobin 18.4 G/DL (14.2-18.0) *H Hematocrit 56.6 % (42.0-52.0) H Mean Corpuscular Volume 95 FL (80-99) Mean Corpuscular Hemoglobin 30.9 PG (27.0-31.0) Mean Corpuscular Hemoglobin Concent 32.5 G/DL (32.0-36.0) Red Cell Distribution Width 11.8 % (11.6-14.8) Platelet Count 359 K/UL (150-450) Mean Platelet Volume 7.7 FL (6.5-10.1) Neutrophils (%) (Auto) 75.7 % (45.0-75.0) H Lymphocytes (%) (Auto) 10.1 % (20.0-45.0) L Monocytes (%) (Auto) 13.3 % (1.0-10.0) H Eosinophils (%) (Auto) 0.1 % (0.0-3.0) Basophils (%) (Auto) 0.8 % (0.0-2.0) Prothrombin Time 12.2 SEC (9.30-11.50) H Prothromb Time International Ratio 1.2 (0.9-1.1) H Activated Partial Thromboplast Time 24 SEC (23-33) Sodium Level 141 MMOL/L (136-145) Potassium Level 5.1 MMOL/L (3.5-5.1) Chloride Level 101 MMOL/L (98-107) Carbon Dioxide Level 22 MMOL/L (21-32) Anion Gap 19 mmol/L (5-15) H Blood Urea Nitrogen 31 mg/dL (7-18) H Creatinine 3.6 MG/DL (0.55-1.30) H Estimat Glomerular Filtration Rate 19.0 mL/min (>60) Glucose Level 99 MG/DL (74-106) Lactic Acid Level 5.50 mmol/L (0.4-2.0) H 4.10 mmol/L (0.66-2.22) H Calcium Level 8.7 MG/DL (8.5-10.1) Total Bilirubin 1.2 MG/DL (0.2-1.0) H Direct Bilirubin 0.2 MG/DL (0.0-0.3) Aspartate Amino Transf (AST/SGOT) 478 U/L (15-37) H Alanine Aminotransferase (ALT/SGPT) 159 U/L (12-78) H Alkaline Phosphatase 53 U/L (46-116) Total Creatine Kinase > 31981 U/L (26-308) H Troponin I 1.014 ng/mL (0.000-0.056) Pro-B-Type Natriuretic Peptide 2143 pg/mL (0-125) H Total Protein 7.4 G/DL (6.4-8.2) Albumin 4.0 G/DL (3.4-5.0) Globulin 3.4 g/dL Albumin/Globulin Ratio 1.2 (1.0-2.7) Lipase > 2000 U/L (73-393) H Salicylates Level < 0.2 ug/mL (2.8-20) L Acetaminophen Level < 2 MCG/ML (10-30) L Serum Alcohol < 3 mg/dL Urine Color Yellow Urine Appearance Clear Urine pH 7 (4.5-8.0) Urine Specific [place] 1.010 (1.005-1.035) Urine Protein 2+ (NEGATIVE) H Urine Glucose (UA) Negative (NEGATIVE) Urine Ketones 1+ (NEGATIVE) H Urine Occult Blood Negative (NEGATIVE) Urine Nitrite Negative (NEGATIVE) Urine Bilirubin Negative (NEGATIVE) Urine Urobilinogen Normal MG/DL (0.0-1.0) Urine Leukocyte Esterase 1+ (NEGATIVE) H Urine RBC 5-10 /HPF (0 - 0) H Urine WBC 5-10 /HPF (0 - 0) H Urine Squamous Epithelial Cells None /LPF (NONE/OCC) Urine Bacteria Few /HPF (NONE) Urine Opiates Screen Positive (NEGATIVE) H Urine Barbiturates Screen Negative (NEGATIVE) Phencyclidine (PCP) Screen Negative (NEGATIVE) Urine Amphetamines Screen Positive (NEGATIVE) H Urine Benzodiazepines Screen Negative (NEGATIVE) Urine Cocaine Screen Positive (NEGATIVE) H Urine Marijuana (THC) Screen Positive (NEGATIVE) H Arterial Blood pH 7.200 (7.350-7.450) Arterial Blood Partial Pressure CO2 44.6 mmHg (35.0-45.0) Arterial Blood Partial Pressure O2 38.3 mmHg (75.0-100.0) Arterial Blood HCO3 17.4 mmol/L (22.0-26.0) L Arterial Blood Oxygen Saturation 65.8 % (92.0-98.0) L Arterial Blood Base Excess -10.3 Miguel Test Positive Test 08/29/17 22:50 08/30/17 05:20 Lactic Acid Level 5.10 mmol/L (0.4-2.0) H 3.30 mmol/L (0.4-2.0) H White Blood Count 14.6 K/UL (4.8-10.8) #H Red Blood Count 4.93 M/UL (4.70-6.10) Hemoglobin 16.1 G/DL (14.2-18.0) Hematocrit 46.5 % (42.0-52.0) Mean Corpuscular Volume 94 FL (80-99) Mean Corpuscular Hemoglobin 32.7 PG (27.0-31.0) H Mean Corpuscular Hemoglobin Concent 34.6 G/DL (32.0-36.0) Red Cell Distribution Width 12.3 % (11.6-14.8) Platelet Count 219 K/UL (150-450) Mean Platelet Volume 6.8 FL (6.5-10.1) Neutrophils (%) (Auto) % (45.0-75.0) Lymphocytes (%) (Auto) % (20.0-45.0) Monocytes (%) (Auto) % (1.0-10.0) Eosinophils (%) (Auto) % (0.0-3.0) Basophils (%) (Auto) % (0.0-2.0) Differential Total Cells Counted 100 Neutrophils % (Manual) 37 % (45-75) L Lymphocytes % (Manual) 8 % (20-45) L Monocytes % (Manual) 9 % (1-10) Eosinophils % (Manual) 0 % (0-3) Basophils % (Manual) 0 % (0-2) Metamyelocytes % 6 % (0-0) H Band Neutrophils 40 % (0-8) H Platelet Estimate Adequate Platelet Morphology Normal Red Blood Cell Morphology Normal Prothrombin Time 13.4 SEC (9.30-11.50) H Prothromb Time International Ratio 1.3 (0.9-1.1) H Activated Partial Thromboplast Time 32 SEC (23-33) Sodium Level 143 MMOL/L (136-145) Potassium Level 5.7 MMOL/L (3.5-5.1) H Chloride Level 109 MMOL/L (98-107) H Carbon Dioxide Level 24 MMOL/L (21-32) Anion Gap 10 mmol/L (5-15) Blood Urea Nitrogen 44 mg/dL (7-18) H Creatinine 5.2 MG/DL (0.55-1.30) H Estimat Glomerular Filtration Rate 12.4 mL/min (>60) Glucose Level 119 MG/DL (74-106) H Calcium Level 6.0 MG/DL (8.5-10.1) #L Phosphorus Level 6.3 MG/DL (2.5-4.9) H Total Bilirubin 1.2 MG/DL (0.2-1.0) H Direct Bilirubin 0.2 MG/DL (0.0-0.3) Aspartate Amino Transf (AST/SGOT) 2439 U/L (15-37) H Alanine Aminotransferase (ALT/SGPT) 796 U/L (12-78) H Alkaline Phosphatase 41 U/L (46-116) L Lactate Dehydrogenase 2627 U/L (81-234) H Total Protein 5.4 G/DL (6.4-8.2) L Albumin 2.6 G/DL (3.4-5.0) L Current Medications Medications (Trade) Dose Ordered Sig/Krystyna Route PRN Reason Start Time Stop Time Status Last Admin Dose Admin Acetaminophen (Tylenol) 650 mg Q4H PRN ORAL Fever (temp>100.5F) 08/29/17 14:45 09/28/17 14:44 Albuterol/ Ipratropium (Albuterol/ Ipratropium) 3 ml Q4H PRN HHN Shortness of Breath 08/29/17 14:45 09/03/17 14:44 Dextrose (Dextrose 50%) 25 ml STAT PRN IV Hypoglycemia 08/29/17 14:45 09/28/17 14:44 Dextrose (Dextrose 50%) 50 ml STAT PRN IV Hypoglycemia 08/29/17 16:00 09/28/17 15:59 Dextrose/Sodium Chloride 1,000 ml @ 75 mls/hr [id number] IV 08/29/17 18:00 09/28/17 17:59 08/30/17 06:50 Heparin Sodium (Porcine) (Heparin 5000 units/ml) 5,000 units EVERY 12 HOURS SUBQ 08/29/17 21:00 09/28/17 20:59 08/30/17 09:26 Lorazepam (Ativan 2mg/ml 1ml) 2 mg Q2H PRN IV agitation 08/29/17 14:45 09/05/17 14:44 08/30/17 09:41 Midazolam HCl 100 ml @ 0 mls/hr Q24H PRN IVPB See protocol text 08/29/17 18:30 09/05/17 18:29 08/30/17 09:24 Morphine Sulfate (Morphine Sulfate) 4 mg Q4H PRN IVP Severe Pain (Pain Scale 7-10) 08/29/17 14:45 09/05/17 14:44 08/29/17 22:24 Nitroglycerin (Ntg) 0.4 mg Q5M PRN SL Prn Chest Pain 08/29/17 14:45 09/28/17 14:44 Norepinephrine Bitartrate 8 mg/ Dextrose 500 ml @ 0 mls/hr Q24H IV 08/29/17 20:00 09/28/17 19:59 08/29/17 21:16 Ondansetron HCl (Zofran) 4 mg Q6H PRN IVP Nausea & Vomiting 08/29/17 14:45 09/28/17 14:44 08/29/17 18:23 Pantoprazole (Protonix) 40 mg EVERY 12 HOURS IVP 08/29/17 21:00 09/28/17 20:59 08/30/17 09:24 Piperacillin Sod/ Tazobactam Sod 3.375 gm/Sodium Chloride 110 ml @ 27.5 mls/hr EVERY 12 HOURS IVPB 08/29/17 21:00 09/03/17 20:59 08/30/17 09:23 Polyethylene Glycol (Miralax) 17 gm DAILYPRN PRN ORAL Constipation 08/29/17 14:45 09/28/17 14:44 Vancomycin HCl (Vanco rx to dose) 1 ea DAILY PRN MISC Per rx protocol 08/29/17 16:45 09/28/17 16:44 Vancomycin HCl/ Dextrose 250 ml @ 166.667 mls/hr Q36H IVPB 08/30/17 21:00 09/04/17 20:59 Krystal Romero M.D. Aug 30, 2017 09:54
--- NOTE | 2017-08-30 10:14 | Pulmonolgy Critical Care Note ---
Critical Care - Asmt/Plan Problems: (1) Respiratory failure (2) Aspiration pneumonia (3) Rhabdomyolysis (4) LUCRECIA (acute kidney injury) (5) NSTEMI (non-ST elevated myocardial infarction) (6) Substance abuse Respiratory: monitor respiratory rate, adjust FIO2, CXR Cardiac: continue to monitor HR/BP Renal: increase IV fluid Infectious Disease: check cultures Gastrointestinal: continue feedings/current rate Endocrine: check TSH, check HgA1C, continue sliding scale insulin Hematologic: transfuse if hgb<8.5 Neurologic: PRN Ativan, keep patient comfortable Notes Reviewed: r d manager, cardio Discussed with: nurses, consultants, protective services case workermanager club - Objective Last 24 Hour Vital Signs Date Time Temp Pulse Resp B/P (MAP) Pulse Ox O2 Delivery O2 Flow Rate FiO2 08/30/17 10:00 108 19 91/44 (60) 37 08/30/17 09:30 111 27 100/56 (71) 97 08/30/17 09:24 20 08/30/17 09:20 111 30 100 08/30/17 09:00 110 26 98/58 (71) 97 08/30/17 08:30 109 24 94/52 (66) 97 08/30/17 08:00 100 08/30/17 08:00 107 08/30/17 08:00 100.0 111 25 109/57 (74) 97 100.0 08/30/17 08:00 Mechanical Ventilator 08/30/17 07:30 110 24 94/52 (66) 97 08/30/17 07:00 111 22 90/39 (56) 96 110 08/30/17 06:37 108 21 100 08/30/17 06:30 110 22 99/56 (70) 97 110 08/30/17 06:00 20 08/30/17 06:00 109 22 101/60 (74) 97 110 08/30/17 05:30 109 22 94/48 (63) 97 110 08/30/17 05:24 108 21 100 08/30/17 05:00 110 22 98/52 (67) 97 110 08/30/17 05:00 98/52 08/30/17 05:00 20 08/30/17 05:00 110 26 98/52 (67) 98 110 08/30/17 04:30 108 22 86/43 (57) 97 110 7/20/18 04:30 108 21 100/43 (62) 99 108 7/20/18 04:29 19 7/20/18 04:00 108 7/20/18 04:00 99.8 108 21 86/43 (57) 99 99.8 108 20/18 04:00 100 2018 04:00 85/44 720/18 04:00 Mechanical Ventilator 08/30/17 03:30 110 21 108/60 (76) 99 110 720/18 03:26 111 30 100 720/18 03:00 110 21 100/52 (68) 99 109 20/18 03:00 100/52 720/18 02:30 109 23 119/61 (80) 97 109 08/30/ 02:00 105/60 08/30/ 02:00 23 08/30/17 02:00 109 22 105/60 (75) 96 109 08/30/17 01:30 109 25 123/67 (85) 96 109 08/30/17 01:30 110 22 100 18 01:00 109/65 720/18 01:00 22 18 01:00 108 19 109/65 (80) 96 108 20/18 00:30 107 19 110/63 (79) 96 107 2018 00:00 100 2018 00:00 127/63 2018 00:00 26 2018 00:00 99.9 108 19 127/63 (84) 96 99.9 108 2018 00:00 107 20 00:00 Mechanical Ventilator 08/29/17 23:30 122 21 122/67 (85) 96 106 19/18 23:23 108 20 100 19/18 23:00 107 19 112/67 (82) 96 107 08/29/18 23:00 112/67 08/29/18 23:00 19 719/18 22:00 118/70 719/18 22:00 108 21 118/70 (86) 96 108 19/18 21:30 109 20 106/58 (74) 96 109 19/18 21:16 124/63 719/18 21:16 21 7/18 21:00 111 21 124/63 (83) 96 111 7/19/18 20:38 111 22 100 719/18 20:30 109 19 124/68 (86) 96 109 719/18 20:00 100 19/18 20:00 138/80 719/18 20:00 18 7//18 20:00 Mechanical Ventilator 18 20:00 99.0 109 20 138/80 (99) 97 99.0 109 19/18 19:30 109 20 100 719/18 19:30 107 18 Mechanical Ventilator 100 18 19:00 139/77 719/18 18:49 18 7/18 18:45 109 08/29/18 18:35 86/45 7/18 18:00 60 08/29/18 17:52 Mechanical Ventilator 18 17:03 108 23 60 7/19/18 17:00 102.4 100 20 93/54 99 Endotracheal Tube 15.0 100 102.4 100 18 16:45 107 19 92 Endotracheal Tube 18 16:10 93/54 08/29/18 16:02 112/47 7/18 15:58 126/47 7/18 15:55 20 08/29/18 15:53 140/81 7/18 15:48 76/53 719/18 15:43 100 16 82/61 99 Endotracheal Tube 100 08/29/18 15:43 82/61 7/19/18 15:40 22 7/19/18 15:38 83/35 719/18 15:34 70/42 7/19/18 15:30 69/33 7/19/18 15:26 64/41 7/19/18 15:23 61/43 7/19/18 15:15 17 7//18 15:12 99 20 100 19/18 15:07 111 22 74/33 Endotracheal Tube 08/29/18 15:00 18 7/19/18 14:45 24 7/19/18 14:30 22 7/19/18 14:13 24 7/19/18 14:02 102.4 121 27 160/112 98 Mechanical Ventilator 100 102.4 19/18 13:53 27 7/19/18 13:38 30 7/19/18 13:23 28 08/29/17 13:10 132 34 Non-Rebreather 08/29/17 12:59 101.8 08/29/17 12:50 124 26 100 08/29/17 12:49 132 34 152/102 90 Non-Rebreather 15.0 08/29/17 12:28 101.7 138 28 137/115 89 Non-Rebreather 15.0 101.7 Status: obtunded Condition: critical HEENT: atraumatic Lungs: clear Heart: HR/BP unstable Abdomen: soft, non-tender Accucheck: 96 Critical Care - Subjective ROS Limited/Unobtainable: No Interval Events: 37 year old male brought in with ALOC. He was found with used needles next to him. He received Narcan in the filed with some response. He was intubated in ER and was transferred to ICU. Currently he is on Versed drip. His CXr showing RML and RLL infiltrate. FI02: 100 Vent Support Breath Rate: 16 Vent Support Mode: AC Vent Tidal Volume: 500 Sputum Amount: Small PEEP: 0.0 PIP: 18 Fluids: 1/2 NS 75 cc/hour I&O: Intake and Output 08/29/17 08/30/17 19:00 07:00 Intake Total 1485 ml 1236.90 ml Output Total 805 ml 810 ml Balance 680 ml 426.90 ml Intake Oral 0 ml IV Total 1455 ml 1236.90 ml Other 30 ml Output Urine Total 805 ml 660 ml Other 150 ml ET-Tube: 7.5 ET Position: 23 Labs: Laboratory Tests Test 08/29/17 12:45 08/29/17 13:20 08/29/17 13:48 08/29/17 17:13 White Blood Count 8.5 K/UL (4.8-10.8) Red Blood Count 5.95 M/UL (4.70-6.10) Hemoglobin 18.4 G/DL (14.2-18.0) *H Hematocrit 56.6 % (42.0-52.0) H Mean Corpuscular Volume 95 FL (80-99) Mean Corpuscular Hemoglobin 30.9 PG (27.0-31.0) Mean Corpuscular Hemoglobin Concent 32.5 G/DL (32.0-36.0) Red Cell Distribution Width 11.8 % (11.6-14.8) Platelet Count 359 K/UL (150-450) Mean Platelet Volume 7.7 FL (6.5-10.1) Neutrophils (%) (Auto) 75.7 % (45.0-75.0) H Lymphocytes (%) (Auto) 10.1 % (20.0-45.0) L Monocytes (%) (Auto) 13.3 % (1.0-10.0) H Eosinophils (%) (Auto) 0.1 % (0.0-3.0) Basophils (%) (Auto) 0.8 % (0.0-2.0) Prothrombin Time 12.2 SEC (9.30-11.50) H Prothromb Time International Ratio 1.2 (0.9-1.1) H Activated Partial Thromboplast Time 24 SEC (23-33) Sodium Level 141 MMOL/L (136-145) Potassium Level 5.1 MMOL/L (3.5-5.1) Chloride Level 101 MMOL/L (98-107) Carbon Dioxide Level 22 MMOL/L (21-32) Anion Gap 19 mmol/L (5-15) H Blood Urea Nitrogen 31 mg/dL (7-18) H Creatinine 3.6 MG/DL (0.55-1.30) H Estimat Glomerular Filtration Rate 19.0 mL/min (>60) Glucose Level 99 MG/DL (74-106) Lactic Acid Level 5.50 mmol/L (0.4-2.0) H 4.10 mmol/L (0.66-2.22) H Calcium Level 8.7 MG/DL (8.5-10.1) Total Bilirubin 1.2 MG/DL (0.2-1.0) H Direct Bilirubin 0.2 MG/DL (0.0-0.3) Aspartate Amino Transf (AST/SGOT) 478 U/L (15-37) H Alanine Aminotransferase (ALT/SGPT) 159 U/L (12-78) H Alkaline Phosphatase 53 U/L (46-116) Total Creatine Kinase > 52214 U/L (26-308) H Troponin I 1.014 ng/mL (0.000-0.056) Pro-B-Type Natriuretic Peptide 2143 pg/mL (0-125) H Total Protein 7.4 G/DL (6.4-8.2) Albumin 4.0 G/DL (3.4-5.0) Globulin 3.4 g/dL Albumin/Globulin Ratio 1.2 (1.0-2.7) Lipase > 2000 U/L (73-393) H Salicylates Level < 0.2 ug/mL (2.8-20) L Acetaminophen Level < 2 MCG/ML (10-30) L Serum Alcohol < 3 mg/dL Urine Color Yellow Urine Appearance Clear Urine pH 7 (4.5-8.0) Urine Specific [place] 1.010 (1.005-1.035) Urine Protein 2+ (NEGATIVE) H Urine Glucose (UA) Negative (NEGATIVE) Urine Ketones 1+ (NEGATIVE) H Urine Occult Blood Negative (NEGATIVE) Urine Nitrite Negative (NEGATIVE) Urine Bilirubin Negative (NEGATIVE) Urine Urobilinogen Normal MG/DL (0.0-1.0) Urine Leukocyte Esterase 1+ (NEGATIVE) H Urine RBC 5-10 /HPF (0 - 0) H Urine WBC 5-10 /HPF (0 - 0) H Urine Squamous Epithelial Cells None /LPF (NONE/OCC) Urine Bacteria Few /HPF (NONE) Urine Opiates Screen Positive (NEGATIVE) H Urine Barbiturates Screen Negative (NEGATIVE) Phencyclidine (PCP) Screen Negative (NEGATIVE) Urine Amphetamines Screen Positive (NEGATIVE) H Urine Benzodiazepines Screen Negative (NEGATIVE) Urine Cocaine Screen Positive (NEGATIVE) H Urine Marijuana (THC) Screen Positive (NEGATIVE) H Arterial Blood pH 7.200 (7.350-7.450) Arterial Blood Partial Pressure CO2 44.6 mmHg (35.0-45.0) Arterial Blood Partial Pressure O2 38.3 mmHg (75.0-100.0) Arterial Blood HCO3 17.4 mmol/L (22.0-26.0) L Arterial Blood Oxygen Saturation 65.8 % (92.0-98.0) L Arterial Blood Base Excess -10.3 Miguel Test Positive Test 08/29/17 22:50 08/30/17 05:20 Lactic Acid Level 5.10 mmol/L (0.4-2.0) H 3.30 mmol/L (0.4-2.0) H White Blood Count 14.6 K/UL (4.8-10.8) #H Red Blood Count 4.93 M/UL (4.70-6.10) Hemoglobin 16.1 G/DL (14.2-18.0) Hematocrit 46.5 % (42.0-52.0) Mean Corpuscular Volume 94 FL (80-99) Mean Corpuscular Hemoglobin 32.7 PG (27.0-31.0) H Mean Corpuscular Hemoglobin Concent 34.6 G/DL (32.0-36.0) Red Cell Distribution Width 12.3 % (11.6-14.8) Platelet Count 219 K/UL (150-450) Mean Platelet Volume 6.8 FL (6.5-10.1) Neutrophils (%) (Auto) % (45.0-75.0) Lymphocytes (%) (Auto) % (20.0-45.0) Monocytes (%) (Auto) % (1.0-10.0) Eosinophils (%) (Auto) % (0.0-3.0) Basophils (%) (Auto) % (0.0-2.0) Differential Total Cells Counted 100 Neutrophils % (Manual) 37 % (45-75) L Lymphocytes % (Manual) 8 % (20-45) L Monocytes % (Manual) 9 % (1-10) Eosinophils % (Manual) 0 % (0-3) Basophils % (Manual) 0 % (0-2) Metamyelocytes % 6 % (0-0) H Band Neutrophils 40 % (0-8) H Platelet Estimate Adequate Platelet Morphology Normal Red Blood Cell Morphology Normal Prothrombin Time 13.4 SEC (9.30-11.50) H Prothromb Time International Ratio 1.3 (0.9-1.1) H Activated Partial Thromboplast Time 32 SEC (23-33) Sodium Level 143 MMOL/L (136-145) Potassium Level 5.7 MMOL/L (3.5-5.1) H Chloride Level 109 MMOL/L (98-107) H Carbon Dioxide Level 24 MMOL/L (21-32) Anion Gap 10 mmol/L (5-15) Blood Urea Nitrogen 44 mg/dL (7-18) H Creatinine 5.2 MG/DL (0.55-1.30) H Estimat Glomerular Filtration Rate 12.4 mL/min (>60) Glucose Level 119 MG/DL (74-106) H Uric Acid Pending Calcium Level 6.0 MG/DL (8.5-10.1) #L Phosphorus Level 6.3 MG/DL (2.5-4.9) H Total Bilirubin 1.2 MG/DL (0.2-1.0) H Direct Bilirubin 0.2 MG/DL (0.0-0.3) Aspartate Amino Transf (AST/SGOT) 2439 U/L (15-37) H Alanine Aminotransferase (ALT/SGPT) 796 U/L (12-78) H Alkaline Phosphatase 41 U/L (46-116) L Lactate Dehydrogenase 2627 U/L (81-234) H Total Creatine Kinase Pending Total Protein 5.4 G/DL (6.4-8.2) L Albumin 2.6 G/DL (3.4-5.0) L Arpita Andre MD Aug 30, 2017 10:14
[2017-08-30] MEDS ORDERED: Haloperidol 5mg/ml Inj IVPB PRN (10:15)
--- NOTE | 2017-08-30 10:41 | Diagnostic Imaging Report ---
Indication: Post central line placement Technique: One view of the pelvis Comparison: none Findings: There is a right femoral central venous catheter, tip which projects at the level of the right common iliac vein just below the common iliac confluence. There is a Andersen catheter in place. The bones are grossly unremarkable Impression: Satisfactory right femoral central line placement This agrees with the preliminary interpretation provided overnight by [facility].
--- NOTE | 2017-08-30 10:43 | Diagnostic Imaging Report ---
Indication: Post nasogastric tube placement Technique: Supine view of the upper abdomen Comparison: None Findings: There is a nasogastric tube in place, tip which projects at the level gastric body, optimal port well beyond the gastroesophageal junction. The visualized bowel gas is grossly unremarkable. There is consolidation at the right lung base Impression: Satisfactory nasogastric intubation This agrees with the preliminary interpretation provided overnight by [facility].
[2017-08-30 10:53] LABS: APPEARANCE,URINE TURBID; BILIRUBIN, URINE NEGATIVE (NEGATIVE); GLUCOSE, URINE (UA) NEGATIVE (NEGATIVE); KETONES,URINE 1+ (NEGATIVE); LEUKOCYTE ESTERASE ,URINE 1+ (NEGATIVE); NITRITE,URINE POSITIVE (NEGATIVE); PH,URINE 5 (4.5-8.0); PROTEIN,URINE 3+ (NEGATIVE); UROBILINOGEN,URINE NORMAL MG/DL (0.0-1.0)
[2017-08-30 11:09] LABS: COLOR,URINE YELLOW
[2017-08-30] MEDS ORDERED: D5 1/2NS 1,000 ML IV SCH (11:30)
[2017-08-30 11:55] LABS: CREATINE KINASE > 10000 U/L (26-308)
--- NOTE | 2017-08-30 12:26 | General Progress Note ---
Assessment/Plan Problem List: (1) Substance abuse ICD Codes: F19.10 - Other psychoactive substance abuse, uncomplicated SNOMED: 14209530 (2) Respiratory failure ICD Codes: J96.90 - Respiratory failure, unspecified, unspecified whether with hypoxia or hypercapnia SNOMED: 817078821 Qualifiers: Qualified Codes: J96.01 - Acute respiratory failure with hypoxia (3) Rhabdomyolysis ICD Codes: M62.82 - Rhabdomyolysis SNOMED: 798479816 Qualifiers: Qualified Codes: T79.6XXA - Traumatic ischemia of muscle, initial encounter (4) NSTEMI (non-ST elevated myocardial infarction) ICD Codes: I21.4 - Non-ST elevation (NSTEMI) myocardial infarction SNOMED: 054260683 (5) LUCRECIA (acute kidney injury) ICD Codes: N17.9 - Acute kidney failure, unspecified SNOMED: 04365364 Status: unchanged Assessment/Plan vent abx cbc bmp am Subjective Constitutional: Reports: weakness Allergies: Coded Allergies: UNABLE TO ASSESS (Unverified , 08/29/17) All Systems: reviewed and negative except above Subjective intub sedated ng in icu Objective Last 24 Hour Vital Signs Date Time Temp Pulse Resp B/P (MAP) Pulse Ox O2 Delivery O2 Flow Rate FiO2 08/30/17 11:00 104 21 94/57 (69) 99 08/30/17 10:44 107 20 100 08/30/17 10:30 109 25 108/50 (69) 98 08/30/17 10:00 108 19 91/44 (60) 37 08/30/17 09:30 111 27 100/56 (71) 97 08/30/17 09:24 20 08/30/17 09:20 111 30 100 08/30/17 09:00 110 26 98/58 (71) 97 08/30/17 08:30 109 24 94/52 (66) 97 08/30/17 08:00 100 08/30/17 08:00 107 08/30/17 08:00 100.0 111 25 109/57 (74) 97 100.0 08/30/17 08:00 Mechanical Ventilator 08/30/17 07:30 110 24 94/52 (66) 97 08/30/17 07:00 111 22 90/39 (56) 96 110 08/30/17 06:37 108 21 100 7/20/18 06:30 110 22 99/56 (70) 97 110 7/20/18 06:00 20 7/20/18 06:00 109 22 101/60 (74) 97 110 7/20/18 05:30 109 22 94/48 (63) 97 110 7/20/18 05:24 108 21 100 7/20/18 05:00 110 22 98/52 (67) 97 110 7/20/18 05:00 98/52 7/20/18 05:00 20 7/20/18 05:00 110 26 98/52 (67) 98 110 7/20/18 04:30 108 22 86/43 (57) 97 110 7/20/18 04:30 108 21 100/43 (62) 99 108 7/20/18 04:29 19 7/20/18 04:00 108 7/20/18 04:00 99.8 108 21 86/43 (57) 99 99.8 108 7/20/18 04:00 100 7/20/18 04:00 85/44 720/18 04:00 Mechanical Ventilator 18 03:30 110 21 108/60 (76) 99 110 7/20/18 03:26 111 30 100 7/20/18 03:00 110 21 100/52 (68) 99 109 7/20/18 03:00 100/52 720/18 02:30 109 23 119/61 (80) 97 109 7/20/18 02:00 105/60 7/20/18 02:00 23 720/18 02:00 109 22 105/60 (75) 96 109 7/20/18 01:30 109 25 123/67 (85) 96 109 7/20/18 01:30 110 22 100 7/20/18 01:00 109/65 7/20/18 01:00 22 720/18 01:00 108 19 109/65 (80) 96 108 7/20/18 00:30 107 19 110/63 (79) 96 107 7/20/18 00:00 100 720/18 00:00 127/63 720/18 00:00 26 720/18 00:00 99.9 108 19 127/63 (84) 96 99.9 108 7/20/18 00:00 107 7/20/18 00:00 Mechanical Ventilator 18 23:30 122 21 122/67 (85) 96 106 7/19/18 23:23 108 20 100 7/19/18 23:00 107 19 112/67 (82) 96 107 /19/18 23:00 112/67 7/19/18 23:00 19 719/18 22:00 118/70 7/19/18 22:00 108 21 118/70 (86) 96 108 7/19/18 21:30 109 20 106/58 (74) 96 109 719/18 21:16 124/63 719/18 21:16 21 719/18 21:00 111 21 124/63 (83) 96 111 08/29/18 20:38 111 22 100 08/29/18 20:30 109 19 124/68 (86) 96 109 19/18 20:00 100 1918 20:00 138/80 19/18 20:00 18 18 20:00 Mechanical Ventilator 18 20:00 99.0 109 20 138/80 (99) 97 99.0 109 19/18 19:30 109 20 100 19/18 19:30 107 18 Mechanical Ventilator 100 18 19:00 139/77 08/29/18 18:49 18 08/29/18 18:45 109 19/18 18:35 86/45 08/29/18 18:00 60 19/18 17:52 Mechanical Ventilator 18 17:03 108 23 60 7/18 17:00 102.4 100 20 93/54 99 Endotracheal Tube 15.0 100 102.4 100 19/18 16:45 107 19 92 Endotracheal Tube 18 16:10 93/54 19/18 16:02 112/47 719/18 15:58 126/47 19/18 15:55 20 719/18 15:53 140/81 719/18 15:48 76/53 719/18 15:43 100 16 82/61 99 Endotracheal Tube 100 08/29/18 15:43 82/61 719/18 15:40 22 719/18 15:38 83/35 719/18 15:34 70/42 08/29/17 15:30 69/33 08/29/17 15:26 64/41 08/29/17 15:23 61/43 08/29/17 15:15 17 08/29/17 15:12 99 20 100 08/29/17 15:07 111 22 74/33 Endotracheal Tube 08/29/17 15:00 18 08/29/17 14:45 24 08/29/17 14:30 22 08/29/17 14:13 24 08/29/17 14:02 102.4 121 27 160/112 98 Mechanical Ventilator 100 102.4 08/29/17 13:53 27 08/29/17 13:38 30 08/29/17 13:23 28 08/29/17 13:10 132 34 Non-Rebreather 08/29/17 12:59 101.8 08/29/17 12:50 124 26 100 08/29/17 12:49 132 34 152/102 90 Non-Rebreather 15.0 08/29/17 12:28 101.7 138 28 137/115 89 Non-Rebreather 15.0 101.7 Intake and Output 08/29/17 08/30/17 19:00 07:00 Intake Total 1485 ml 1236.90 ml Output Total 805 ml 810 ml Balance 680 ml 426.90 ml Intake Oral 0 ml IV Total 1455 ml 1236.90 ml Other 30 ml Output Urine Total 805 ml 660 ml Other 150 ml Laboratory Tests 08/29/17 12:45: White Blood Count 8.5, Red Blood Count 5.95, Hemoglobin 18.4*H, Hematocrit 56.6H , Mean Corpuscular Volume 95, Mean Corpuscular Hemoglobin 30.9, Mean Corpuscular Hemoglobin Concent 32.5, Red Cell Distribution Width 11.8, Platelet Count 359, Mean Platelet Volume 7.7, Neutrophils (%) (Auto) 75.7H, Lymphocytes ( %) (Auto) 10.1L, Monocytes (%) (Auto) 13.3H, Eosinophils (%) (Auto) 0.1, Basophils (%) (Auto) 0.8, Prothrombin Time 12.2H, Prothromb Time International Ratio 1.2H, Activated Partial Thromboplast Time 24, Sodium Level 141, Potassium Level 5.1, Chloride Level 101, Carbon Dioxide Level 22, Anion Gap 19H, Blood Urea Nitrogen 31H, Creatinine 3.6H, Estimat Glomerular Filtration Rate 19.0, Glucose Level 99, Lactic Acid Level 5.50H, Calcium Level 8.7, Total Bilirubin 1.2H, Direct Bilirubin 0.2, Aspartate Amino Transf (AST/SGOT) 478H, Alanine Aminotransferase (ALT/SGPT) 159H, Alkaline Phosphatase 53, Total Creatine Kinase > 70923H, Troponin I 1.014H, Pro-B-Type Natriuretic Peptide 2143H, Total Protein 7.4, Albumin 4.0, Globulin 3.4, Albumin/Globulin Ratio 1.2, Lipase > 2000H, Salicylates Level < 0.2L, Acetaminophen Level < 2L, Serum Alcohol < 3 08/29/17 13:20: Urine Color Yellow, Urine Appearance Clear, Urine pH 7, Urine Specific [place] 1.010, Urine Protein 2+H, Urine Glucose (UA) Negative, Urine Ketones 1+H, Urine Occult Blood Negative, Urine Nitrite Negative, Urine Bilirubin Negative, Urine Urobilinogen Normal, Urine Leukocyte Esterase 1+H, Urine RBC 5-10H, Urine WBC 5- 10H, Urine Squamous Epithelial Cells None, Urine Bacteria Few, Urine Opiates Screen PositiveH, Urine Barbiturates Screen Negative, Phencyclidine (PCP) Screen Negative, Urine Amphetamines Screen PositiveH, Urine Benzodiazepines Screen Negative, Urine Cocaine Screen PositiveH, Urine Marijuana (THC) Screen PositiveH 08/29/17 13:48: Arterial Blood pH 7.200*L, Arterial Blood Partial Pressure CO2 44.6, Arterial Blood Partial Pressure O2 38.3*L, Arterial Blood HCO3 17.4L, Arterial Blood Oxygen Saturation 65.8L, Arterial Blood Base Excess -10.3, Miguel Test Positive 08/29/17 17:13: Lactic Acid Level 4.10H 08/29/17 22:50: Lactic Acid Level 5.10H 08/30/17 05:20: Lactic Acid Level 3.30H, White Blood Count 14.6#H, Red Blood Count 4.93, Hemoglobin 16.1, Hematocrit 46.5, Mean Corpuscular Volume 94, Mean Corpuscular Hemoglobin 32.7H, Mean Corpuscular Hemoglobin Concent 34.6, Red Cell Distribution Width 12.3, Platelet Count 219, Mean Platelet Volume 6.8, Neutrophils (%) (Auto) , Lymphocytes (%) (Auto) , Monocytes (%) (Auto) , Eosinophils (%) (Auto) , Basophils (%) (Auto) , Differential Total Cells Counted 100, Neutrophils % (Manual) 37L, Lymphocytes % (Manual) 8L, Monocytes % (Manual) 9, Eosinophils % (Manual) 0, Basophils % (Manual) 0, Metamyelocytes % 6H, Band Neutrophils 40H, Platelet Estimate Adequate, Platelet Morphology Normal , Red Blood Cell Morphology Normal, Prothrombin Time 13.4H, Prothromb Time International Ratio 1.3H, Activated Partial Thromboplast Time 32, Sodium Level 143, Potassium Level 5.7H, Chloride Level 109H, Carbon Dioxide Level 24, Anion Gap 10, Blood Urea Nitrogen 44H, Creatinine 5.2H, Estimat Glomerular Filtration Rate 12.4, Glucose Level 119H, Uric Acid 10.4H, Calcium Level 6.0#L, Phosphorus Level 6.3H, Total Bilirubin 1.2H, Direct Bilirubin 0.2, Aspartate Amino Transf ( AST/SGOT) 2439H, Alanine Aminotransferase (ALT/SGPT) 796H, Alkaline Phosphatase 41L, Lactate Dehydrogenase 2627H, Total Creatine Kinase > 74109W, Total Protein 5.4L, Albumin 2.6L 08/30/17 10:20: Urine Color Yellow, Urine Appearance Turbid, Urine pH 5, Urine Specific [place] 1.015, Urine Protein 3+H, Urine Glucose (UA) Negative, Urine Ketones 1+H, Urine Occult Blood 5+H, Urine Nitrite PositiveH, Urine Bilirubin Negative, Urine Urobilinogen Normal, Urine Leukocyte Esterase 1+H, Urine RBC 5-10H, Urine WBC 2- 4, Urine Squamous Epithelial Cells Few, Urine Amorphous Sediment ModerateH, Urine Bacteria ManyH, Urine Granular Casts 0-2H, Urine Eosinophils None seen, Urine Random Sodium 59, Urine Potassium Timed 63H, Chlamydia trachomatis RNA [ Pending], Neisseria gonorrhoeae RNA [Pending] 08/30/17 11:00: Lactic Acid Level 2.80H 08/30/17 12:10: Lactic Acid Level [Pending] Height (Feet): 5 Height (Inches): 8.00 Weight (Pounds): 165 General Appearance: lethargic EENT: normal ENT inspection Neck: normal alignment Cardiovascular: normal peripheral pulses, normal rate, regular rhythm Respiratory/Chest: chest wall non-tender, lungs clear, normal breath sounds Abdomen: normal bowel sounds, non tender, soft Extremities: normal inspection Edema: no edema noted Arm (L), no edema noted Arm (R), no edema noted Leg (L), no edema noted Leg (R), no edema noted Pedal (L), no edema noted Pedal (R), no edema noted Generalized Neurologic: motor weakness Skin: normal pigmentation, warm/dry Reid Anaya DO Aug 30, 2017 12:25
--- NOTE | 2017-08-30 14:08 | General Progress Note ---
Progress Note Progress Note Pt needs HD access. there is no family available to sing and pt is unable to sign the consent. Arpita Andre MD Aug 30, 2017 14:08
[2017-08-30] MEDS ORDERED: Heparin 2000 units/Ns 1000ml INJ SCH (14:15)
[2017-08-30] MEDS: SODIUM BICARBONATE IV SCH ×2 (14:31→21:16)
[2017-08-30] MEDS: D5 IV SCH ×2 (14:31→21:16)
[2017-08-30] MEDS: [UNRECOGNIZED DRUG - OTHER] IV SCH ×2 (14:31→21:16)
[2017-08-30] MEDS ORDERED: Lidocaine 1% Plain 30 ml INJ SCH (15:00)
--- NOTE | 2017-08-30 15:29 | General Progress Note ---
Progress Note Progress Note [id number] full consult dictated dialysis order was placed Aixa Veloz MD Aug 30, 2017 15:28
--- NOTE | 2017-08-30 16:15 | Diagnostic Imaging Report ---
Indication: Needs dialysis access Technique: Procedure performed at bedside. Procedural timeout performed. Total sterile technique, including sterile probe cover and sterile gel, sterile gloves, hand hygiene, hat, mask, sterile gown, large sterile drape, and preparation with 2% chlorhexidine utilized. Local anesthesia with 1% lidocaine. Under real-time ultrasound guidance, puncture right internal jugular vein using 21-gauge needle, passage 0.018 guidewire, insertion 4 [place] micropuncture introducer, passage 0.035 guidewire, over which was passed serial dilators and then a 13 [place] 15 cm triple-lumen temporary dialysis catheter. Guidewire was removed. Catheter ports were aspirated and flushed. The catheter was fixed to the skin. Patient tolerated procedure well. A chest x-ray was obtained, documents catheter tip position at the needle superior vena cava. Comparison: Chest Compare due to yesterday Findings: As above Impression: Successful bedside placement of right transjugular temporary dialysis catheter, as described.
--- NOTE | 2017-08-30 16:56 | Cardiology Report ---
APPROVED REPORT EKG Measurement Heart [id number] Sinus tachycardia Otherwise normal ECG
--- NOTE | 2017-08-30 18:31 | GI Initial Consult Note ---
History of Present Illness General Date patient seen: Aug 30, 2017 Time patient seen: 10:00 Reason for Hospitalization: Overdose Referring physician: MARCELL FERNANDO Reason for Consultation: TRANSAMINITIS Present Illness HPI The patient is a 37-year-old male, presents to [facility] lethargic, currently intubated, sedated, lethargic in the ER, unable to obtain history, from chart. GI consulted for transaminitis. ROS limited, Pt OD from polysubstance abuse as noted on urine toxicity. Found unresponsive in apartment. Currently intubated in the ICU. NGT placed. Presents today with transaminitis, elevated AST over 2K. No known history of endoscopy / colonoscopy. Home Meds Unable to Obtain Active Prescriptions or Reported Meds Med list reviewed/reconciled: Yes Allergies: Coded Allergies: UNABLE TO ASSESS (Unverified , 08/29/17) Patient History Limited by: medical condition History Provided By: Medical Record [facility] Narrative PAST MEDICAL HISTORY: Aspiration pneumonia, rhabdomyolysis, NSTEMI, LUCRECIA, and sepsis. PAST SURGICAL HISTORY: Unknown. Social History: Reports: drug use Review of Systems All Other Systems: limited Physical Exam Vital Signs Date Time Temp Pulse Resp B/P (MAP) Pulse Ox O2 Delivery O2 Flow Rate FiO2 08/29/17 12:28 101.7 138 28 137/115 89 Non-Rebreather 15.0 101.7 08/29/17 12:50 100 Sp02 EP Interpretation: reviewed, normal Labs Laboratory Tests Test 08/29/17 22:50 08/30/17 05:20 08/30/17 10:20 08/30/17 11:00 Lactic Acid Level 5.10 mmol/L (0.4-2.0) H 3.30 mmol/L (0.4-2.0) H 2.80 mmol/L (0.4-2.0) H White Blood Count 14.6 K/UL (4.8-10.8) #H Red Blood Count 4.93 M/UL (4.70-6.10) Hemoglobin 16.1 G/DL (14.2-18.0) Hematocrit 46.5 % (42.0-52.0) Mean Corpuscular Volume 94 FL (80-99) Mean Corpuscular Hemoglobin 32.7 PG (27.0-31.0) H Mean Corpuscular Hemoglobin Concent 34.6 G/DL (32.0-36.0) Red Cell Distribution Width 12.3 % (11.6-14.8) Platelet Count 219 K/UL (150-450) Mean Platelet Volume 6.8 FL (6.5-10.1) Neutrophils (%) (Auto) % (45.0-75.0) Lymphocytes (%) (Auto) % (20.0-45.0) Monocytes (%) (Auto) % (1.0-10.0) Eosinophils (%) (Auto) % (0.0-3.0) Basophils (%) (Auto) % (0.0-2.0) Differential Total Cells Counted 100 Neutrophils % (Manual) 37 % (45-75) L Lymphocytes % (Manual) 8 % (20-45) L Monocytes % (Manual) 9 % (1-10) Eosinophils % (Manual) 0 % (0-3) Basophils % (Manual) 0 % (0-2) Metamyelocytes % 6 % (0-0) H Band Neutrophils 40 % (0-8) H Platelet Estimate Adequate Platelet Morphology Normal Red Blood Cell Morphology Normal Prothrombin Time 13.4 SEC (9.30-11.50) H Prothromb Time International Ratio 1.3 (0.9-1.1) H Activated Partial Thromboplast Time 32 SEC (23-33) Sodium Level 143 MMOL/L (136-145) Potassium Level 5.7 MMOL/L (3.5-5.1) H Chloride Level 109 MMOL/L (98-107) H Carbon Dioxide Level 24 MMOL/L (21-32) Anion Gap 10 mmol/L (5-15) Blood Urea Nitrogen 44 mg/dL (7-18) H Creatinine 5.2 MG/DL (0.55-1.30) H Estimat Glomerular Filtration Rate 12.4 mL/min (>60) Glucose Level 119 MG/DL (74-106) H Uric Acid 10.4 MG/DL (2.6-7.2) H Calcium Level 6.0 MG/DL (8.5-10.1) #L Phosphorus Level 6.3 MG/DL (2.5-4.9) H Total Bilirubin 1.2 MG/DL (0.2-1.0) H Direct Bilirubin 0.2 MG/DL (0.0-0.3) Aspartate Amino Transf (AST/SGOT) 2439 U/L (15-37) H Alanine Aminotransferase (ALT/SGPT) 796 U/L (12-78) H Alkaline Phosphatase 41 U/L (46-116) L Lactate Dehydrogenase 2627 U/L (81-234) H Total Creatine Kinase > 17167 U/L (26-308) H Total Protein 5.4 G/DL (6.4-8.2) L Albumin 2.6 G/DL (3.4-5.0) L Urine Color Yellow Urine Appearance Turbid Urine pH 5 (4.5-8.0) Urine Specific [place] 1.015 (1.005-1.035) Urine Protein 3+ (NEGATIVE) H Urine Glucose (UA) Negative (NEGATIVE) Urine Ketones 1+ (NEGATIVE) H Urine Occult Blood 5+ (NEGATIVE) H Urine Nitrite Positive (NEGATIVE) H Urine Bilirubin Negative (NEGATIVE) Urine Urobilinogen Normal MG/DL (0.0-1.0) Urine Leukocyte Esterase 1+ (NEGATIVE) H Urine RBC 5-10 /HPF (0 - 0) H Urine WBC 2-4 /HPF (0 - 0) Urine Squamous Epithelial Cells Few /LPF (NONE/OCC) Urine Amorphous Sediment Moderate /LPF (NONE) H Urine Bacteria Many /HPF (NONE) H Urine Granular Casts 0-2 /LPF (NONE) H Urine Eosinophils None seen Urine Random Sodium 59 mmol/L (20-110) Urine Potassium Timed 63 mmol/L (12-62) H Chlamydia trachomatis RNA Pending Neisseria gonorrhoeae RNA Pending Test 08/30/17 12:10 08/30/17 17:55 Lactic Acid Level 2.40 mmol/L (0.66-2.22) H Pending Random Vancomycin Level Pending General Appearance: no apparent distress Head: normocephalic EENT: PERRL/EOMI, normal ENT inspection Neck: supple Respiratory: normal breath sounds, no respiratory distress Cardiovascular: normal rate Gastrointestinal: normal inspection, non tender, soft, normal bowel sounds, non -distended Rectal: deferred Genitourinary: deferred Skin: normal inspection, normal color, no rash, warm/dry, palpation normal, well hydrated Lymphatic: normal inspection, no adenopathy Current Medications Current Medications Medications (Trade) Dose Ordered Sig/Krystyna Route PRN Reason Start Time Stop Time Status Last Admin Dose Admin Acetaminophen (Tylenol) 650 mg Q4H PRN ORAL Fever (temp>100.5F) 08/29/17 14:45 09/28/17 14:44 08/30/17 16:10 Albuterol/ Ipratropium (Albuterol/ Ipratropium) 3 ml Q4H PRN HHN Shortness of Breath 08/29/17 14:45 09/03/17 14:44 Chlorhexidine Gluconate (Jyotsna-Hex 2%) 1 applic DAILY@2000 TOPIC 08/30/17 20:00 09/29/17 19:59 Dextrose (Dextrose 50%) 25 ml STAT PRN IV Hypoglycemia 08/29/17 14:45 09/28/17 14:44 Dextrose (Dextrose 50%) 50 ml STAT PRN IV Hypoglycemia 08/29/17 16:00 09/28/17 15:59 Haloperidol Lactate 5 mg/ Dextrose 56 ml @ 112 mls/hr Q1H PRN IVPB SEVERE AGITATION 08/30/17 11:30 09/29/17 11:29 Heparin Sodium (Porcine) (Heparin 5000 units/ml) 5,000 units EVERY 12 HOURS SUBQ 08/29/17 21:00 09/28/17 20:59 08/30/17 09:26 Heparin Sodium/ Sodium Chloride (Heparin 2000 units/Ns 1000ml premix) 2,000 unit ONCE INJ 08/30/17 14:15 09/01/17 14:14 08/30/17 14:30 Lidocaine HCl (Xylocaine 1% 30ml) 30 ml ONCE INJ 08/30/17 15:00 09/01/17 14:59 08/30/17 14:30 Lorazepam (Ativan 2mg/ml 1ml) 2 mg Q2H PRN IV agitation 08/29/17 14:45 09/05/17 14:44 08/30/17 17:50 Midazolam HCl 100 ml @ 0 mls/hr Q24H PRN IVPB See protocol text 08/29/17 18:30 09/05/17 18:29 08/30/17 09:24 Morphine Sulfate (Morphine Sulfate) 4 mg Q4H PRN IVP Severe Pain (Pain Scale 7-10) 08/29/17 14:45 09/05/17 14:44 7/19/18 22:24 Nitroglycerin (Ntg) 0.4 mg Q5M PRN SL Prn Chest Pain 08/29/17 14:45 09/28/17 14:44 Norepinephrine Bitartrate 8 mg/ Dextrose 500 ml @ 0 mls/hr Q24H IV 08/29/17 20:00 09/28/17 19:59 08/29/17 21:16 Ondansetron HCl (Zofran) 4 mg Q6H PRN IVP Nausea & Vomiting 08/29/17 14:45 09/28/17 14:44 08/29/17 18:23 Pantoprazole (Protonix) 40 mg EVERY 12 HOURS IVP 08/29/17 21:00 09/28/17 20:59 08/30/17 09:24 Piperacillin Sod/ Tazobactam Sod 3.375 gm/Sodium Chloride 110 ml @ 27.5 mls/hr EVERY 12 HOURS IVPB 08/29/17 21:00 09/03/17 20:59 08/30/17 09:23 Polyethylene Glycol (Miralax) 17 gm DAILYPRN PRN ORAL Constipation 08/29/17 14:45 09/28/17 14:44 Sodium Bicarbonate 50 ml/ Dextrose/Sodium Chloride 1,000 ml @ 125 mls/hr Q8H IV 08/30/17 13:30 09/29/17 13:29 08/30/17 14:31 Vancomycin HCl (Vanco rx to dose) 1 ea DAILY PRN MISC Per rx protocol 08/29/17 16:45 09/28/17 16:44 GI: Plan Problems: (1) Transaminitis (2) Severe sepsis (3) Rhabdomyolysis Plan drug induced transaminitis >> will r/o hepatitis defer any GI procedures at this time maintain NPO IV hydration electrolyte correction ppi fu labs, trend LFTs NGTFs when stable Discussed with Dr. Chavez. Thank you for this patient referral, we will follow. The patient was seen and examined at bedside and all new and available data was reviewed in the patients chart. I agree with the above findings, impression and plan. (Patient seen earlier today. Signature stamp does not reflect patient encounter time.). - MD Jessica Schneider,Karen-Joao ENGINEERING TECHNICAL WRITER Aug 30, 2017 18:31
[2017-08-30] MEDS: Dyna-Hex 2% Top Sol 2oz TOPIC SCH (20:00)
[2017-08-30] MEDS: Morphine Sulfate 4mg/ml Inj (IV USE ONLY) IVP PRN (20:00)
[2017-08-30] MEDS: Norepinephrine Bitartrate 8 MG in D5W 500ml 492 ML IV SCH (20:00)
--- NOTE | 2017-08-30 20:01 | Cardiology Progress Note ---
Assessment/Plan Assessment/Plan The patient is seen and examined, full consult note will be dictated. Objective Last 24 Hour Vital Signs Date Time Temp Pulse Resp B/P (MAP) Pulse Ox O2 Delivery O2 Flow Rate FiO2 08/30/17 19:00 101 28 119/57 (77) 99 72018 18:58 22 18 18:30 93 19 111/54 (73) 97 18 18:00 24 08/30/17 18:00 111 33 124/58 (80) 98 08/30/17 17:55 98.7 18 17:30 96 21 110/57 (74) 97 08/30/17 17:25 98 22 100 08/30/17 17:00 98 20 105/58 (74) 98 08/30/17 17:00 25 08/30/17 16:30 99 21 111/55 (73) 96 08/30/17 16:10 100.5 08/30/17 16:00 Mechanical Ventilator 08/30/17 16:00 100 08/30/17 16:00 100.5 102 23 118/60 (79) 96 100.5 08/30/17 16:00 105 08/30/17 16:00 24 08/30/17 15:40 Mechanical Ventilator 100 08/30/17 15:30 104 26 112/54 (73) 96 08/30/17 15:05 104 24 100 08/30/17 15:00 108 24 116/86 (96) 97 08/30/17 15:00 21 08/30/17 14:30 107 26 114/56 (75) 97 08/30/17 14:00 99 24 99/48 (65) 96 18 14:00 22 08/30/17 13:30 99 21 99/56 (70) 96 08/30/17 13:12 101 23 100 08/30/17 13:00 99 20 99/48 (65) 96 18 13:00 22 08/30/17 12:30 101 19 102/46 (64) 97 18 12:00 100 08/30/17 12:00 22 08/30/17 12:00 Mechanical Ventilator 08/30/17 12:00 99.1 102 19 92/55 (67) 97 99.1 7/20/18 12:00 103 7/20/18 11:30 103 21 100/54 (69) 98 7/20/18 11:00 104 21 94/57 (69) 99 7/20/18 11:00 23 7/20/18 10:44 107 20 100 7/20/18 10:30 109 25 108/50 (69) 98 7/20/18 10:00 108 19 91/44 (60) 37 7/20/18 10:00 23 7/20/18 09:30 111 27 100/56 (71) 97 7/20/18 09:24 20 7/20/18 09:20 111 30 100 7/20/18 09:00 110 26 98/58 (71) 97 7/20/18 09:00 19 7/20/18 08:30 109 24 94/52 (66) 97 7/20/18 08:00 100 7/20/18 08:00 107 7/20/18 08:00 100.0 111 25 109/57 (74) 97 100.0 720/18 08:00 24 7/20/18 08:00 Mechanical Ventilator 18 07:30 110 24 94/52 (66) 97 7/20/18 07:00 111 22 90/39 (56) 96 110 720/18 07:00 23 720/18 06:37 108 21 100 7/20/18 06:30 110 22 99/56 (70) 97 110 7/20/18 06:00 20 7/20/18 06:00 109 22 101/60 (74) 97 110 7/20/18 05:30 109 22 94/48 (63) 97 110 7/20/18 05:24 108 21 100 7/20/18 05:00 110 22 98/52 (67) 97 110 7/20/18 05:00 98/52 7/20/18 05:00 20 7/20/18 05:00 110 26 98/52 (67) 98 110 7/20/18 04:30 108 22 86/43 (57) 97 110 7/20/18 04:30 108 21 100/43 (62) 99 108 7/20/18 04:29 19 7/20/18 04:00 108 7/20/18 04:00 99.8 108 21 86/43 (57) 99 99.8 108 7/20/18 04:00 100 08/30/17 04:00 85/44 08/30/17 04:00 Mechanical Ventilator 08/30/17 03:30 110 21 108/60 (76) 99 110 08/30/17 03:26 111 30 100 08/30/17 03:00 110 21 100/52 (68) 99 109 08/30/17 03:00 100/52 08/30/17 02:30 109 23 119/61 (80) 97 109 08/30/17 02:00 105/60 08/30/17 02:00 23 08/30/17 02:00 109 22 105/60 (75) 96 109 08/30/17 01:30 109 25 123/67 (85) 96 109 08/30/17 01:30 110 22 100 08/30/17 01:00 109/65 08/30/17 01:00 22 08/30/17 01:00 108 19 109/65 (80) 96 108 08/30/17 00:30 107 19 110/63 (79) 96 107 08/30/17 00:00 100 08/30/17 00:00 127/63 08/30/17 00:00 26 08/30/17 00:00 99.9 108 19 127/63 (84) 96 99.9 108 08/30/17 00:00 107 08/30/17 00:00 Mechanical Ventilator 08/29/17 23:30 122 21 122/67 (85) 96 106 08/29/17 23:23 108 20 100 08/29/17 23:00 107 19 112/67 (82) 96 107 18 23:00 112/67 18 23:00 19 18 22:00 118/70 18 22:00 108 21 118/70 (86) 96 108 18 21:30 109 20 106/58 (74) 96 109 18 21:16 124/63 18 21:16 21 18 21:00 111 21 124/63 (83) 96 111 18 20:38 111 22 100 18 20:30 109 19 124/68 (86) 96 109 Intake and Output 08/29/17 08/30/17 19:00 07:00 Intake Total 1485 ml 1261.90 ml Output Total 805 ml 810 ml Balance 680 ml 451.90 ml Intake Oral 0 ml IV Total 1455 ml 1261.90 ml Other 30 ml Output Urine Total 805 ml 660 ml Other 150 ml Laboratory Tests Test 08/29/17 22:50 08/30/17 05:20 08/30/17 10:20 08/30/17 11:00 Lactic Acid Level 5.10 mmol/L (0.4-2.0) H 3.30 mmol/L (0.4-2.0) H 2.80 mmol/L (0.4-2.0) H White Blood Count 14.6 K/UL (4.8-10.8) #H Red Blood Count 4.93 M/UL (4.70-6.10) Hemoglobin 16.1 G/DL (14.2-18.0) Hematocrit 46.5 % (42.0-52.0) Mean Corpuscular Volume 94 FL (80-99) Mean Corpuscular Hemoglobin 32.7 PG (27.0-31.0) H Mean Corpuscular Hemoglobin Concent 34.6 G/DL (32.0-36.0) Red Cell Distribution Width 12.3 % (11.6-14.8) Platelet Count 219 K/UL (150-450) Mean Platelet Volume 6.8 FL (6.5-10.1) Neutrophils (%) (Auto) % (45.0-75.0) Lymphocytes (%) (Auto) % (20.0-45.0) Monocytes (%) (Auto) % (1.0-10.0) Eosinophils (%) (Auto) % (0.0-3.0) Basophils (%) (Auto) % (0.0-2.0) Differential Total Cells Counted 100 Neutrophils % (Manual) 37 % (45-75) L Lymphocytes % (Manual) 8 % (20-45) L Monocytes % (Manual) 9 % (1-10) Eosinophils % (Manual) 0 % (0-3) Basophils % (Manual) 0 % (0-2) Metamyelocytes % 6 % (0-0) H Band Neutrophils 40 % (0-8) H Platelet Estimate Adequate Platelet Morphology Normal Red Blood Cell Morphology Normal Prothrombin Time 13.4 SEC (9.30-11.50) H Prothromb Time International Ratio 1.3 (0.9-1.1) H Activated Partial Thromboplast Time 32 SEC (23-33) Sodium Level 143 MMOL/L (136-145) Potassium Level 5.7 MMOL/L (3.5-5.1) H Chloride Level 109 MMOL/L (98-107) H Carbon Dioxide Level 24 MMOL/L (21-32) Anion Gap 10 mmol/L (5-15) Blood Urea Nitrogen 44 mg/dL (7-18) H Creatinine 5.2 MG/DL (0.55-1.30) H Estimat Glomerular Filtration Rate 12.4 mL/min (>60) Glucose Level 119 MG/DL (74-106) H Uric Acid 10.4 MG/DL (2.6-7.2) H Calcium Level 6.0 MG/DL (8.5-10.1) #L Phosphorus Level 6.3 MG/DL (2.5-4.9) H Total Bilirubin 1.2 MG/DL (0.2-1.0) H Direct Bilirubin 0.2 MG/DL (0.0-0.3) Aspartate Amino Transf (AST/SGOT) 2439 U/L (15-37) H Alanine Aminotransferase (ALT/SGPT) 796 U/L (12-78) H Alkaline Phosphatase 41 U/L (46-116) L Lactate Dehydrogenase 2627 U/L (81-234) H Total Creatine Kinase > 05032 U/L (26-308) H Total Protein 5.4 G/DL (6.4-8.2) L Albumin 2.6 G/DL (3.4-5.0) L Urine Color Yellow Urine Appearance Turbid Urine pH 5 (4.5-8.0) Urine Specific [place] 1.015 (1.005-1.035) Urine Protein 3+ (NEGATIVE) H Urine Glucose (UA) Negative (NEGATIVE) Urine Ketones 1+ (NEGATIVE) H Urine Occult Blood 5+ (NEGATIVE) H Urine Nitrite Positive (NEGATIVE) H Urine Bilirubin Negative (NEGATIVE) Urine Urobilinogen Normal MG/DL (0.0-1.0) Urine Leukocyte Esterase 1+ (NEGATIVE) H Urine RBC 5-10 /HPF (0 - 0) H Urine WBC 2-4 /HPF (0 - 0) Urine Squamous Epithelial Cells Few /LPF (NONE/OCC) Urine Amorphous Sediment Moderate /LPF (NONE) H Urine Bacteria Many /HPF (NONE) H Urine Granular Casts 0-2 /LPF (NONE) H Urine Eosinophils None seen Urine Random Sodium 59 mmol/L (20-110) Urine Potassium Timed 63 mmol/L (12-62) H Chlamydia trachomatis RNA Pending Neisseria gonorrhoeae RNA Pending Test 08/30/17 12:10 08/30/17 17:55 Lactic Acid Level 2.40 mmol/L (0.66-2.22) H 3.00 mmol/L (0.4-2.0) H Random Vancomycin Level 4.8 ug/mL Jorge Mcdonough MD Aug 30, 2017 20:01
[2017-08-30] MEDS ORDERED: Vancomycin 1.5 GM/D5W 250ML IVPB ONE (20:15)
[2017-08-30] MEDS ORDERED: Vancomycin 1250mg/D5W 250ml IVPB SCH (21:00)
[2017-08-30] MEDS: Haloperidol Lactate 5 MG in D5W 55 ML IVPB PRN (23:34)
[2017-08-31] VITALS (30 sets, daily range): BP systolic 86–170; BP diastolic 41–104
--- NOTE | 2017-08-31 00:30 | Consultation ---
DATE OF CONSULTATION: 08/30/2017 CARDIOLOGY CONSULTATION CONSULTING PHYSICIAN: Jorge Mcdonough M.D. REFERRING PHYSICIAN: Reid Anaya D.O. REASON FOR CONSULTATION: Management of tachycardia. HISTORY OF PRESENT ILLNESS: The patient is a very unfortunate 37-year-old gentleman, who is brought in after he was found down in the hotel room, unresponsive with drug paraphernalia. He had some temporary response to Narcan. Blood sugar in the field was 50. D50 was given, which increased the blood sugar to 100. He was very warm to touch. There was no evidence of trauma. He was brought in to the emergency department in severe distress. Initial blood pressure was 137/115 mmHg, heart rate of 138, and temperature was 101.7 degrees Fahrenheit. A 12-lead electrocardiogram showed sinus tachycardia at the rate of 124 with normal QT interval and no acute ST and T-wave abnormalities. He was admitted to the intensive care unit for further evaluation and management of altered level of consciousness and prevention of cardiac arrhythmia. Cardiology consultation was made at the request of Dr. Anaya to assess and address sinus tachycardia. PAST MEDICAL HISTORY: Unknown. MEDICATIONS: List of medications in the outpatient setting, none. ALLERGIES: Unable to assess. FAMILY HISTORY: Unknown. SOCIAL HISTORY: Unclear. The patient has been using drugs. REVIEW OF SYSTEMS: A 12-system review cannot be obtained as the patient is comatose on the vent. PHYSICAL EXAMINATION: VITAL SIGNS: In the emergency department, blood pressure was 137/115, respirations 28, pulse of 138, temperature 101.7 degrees Fahrenheit, and O2 saturation of 89% on non-rebreather mask at 15 liter/minute. The patient was intubated in the emergency department. Central line was placed. GENERAL: Comatose with respiratory distress, on the vent, intubated. HEENT: Atraumatic and normocephalic. Pupils are equal, round, and reactive to light and accommodation. Scleral injection in both eyes. Dry mucosal membranes. NECK: JVP cannot be assessed due to positive inspiratory pressure of intubation on the ventilator. CVS: Normal S1, S2. Tachycardic. Cannot appreciate any murmurs, gallops, or rubs. LUNGS: Clear to auscultation bilaterally. ABDOMEN: Soft, nontender, and nondistended. No hepatosplenomegaly. Positive bowel sounds. EXTREMITIES: No evidence of edema, clubbing, or cyanosis. IMAGING DATA: CT of head showed no gross acute intracranial bleed or mass effect. A chest x-ray showed bilateral interstitial and airspace disease, severe on the right than the left. A 12-lead electrocardiogram, sinus tachycardia at the rate of 124, otherwise normal. LABORATORY FINDINGS: WBC was 8.5, hemoglobin 18.4, hematocrit of 56.6, and platelet count is 359,000. Chemistry showed sodium 141, potassium is 5.1, chloride 101, bicarbonate 22, BUN of 31, and creatinine 3.6. Glucose is 99. Calcium is 8.7. AST was 478 and ALT was 159. Troponin I was 1.01. ProBNP was 3143. INR was 1.2. Toxicology showed positive marijuana, cocaine, amphetamine, and opiates. Blood gas initially in the emergency department, pH was 7.2, pCO2 44.6, pO2 of 38.3, bicarbonate 17.4, and O2 saturation of 65.8. ASSESSMENT AND PLAN: The patient is a very unfortunate 37-year-old gentleman seen in Cardiology consultation at the request of Dr. Anaya. 1. Sinus tachycardia likely due to the increased adrenergic flow given cocaine and amphetamine drug over dose. The patient will benefit from calcium channel omer and nitrates if the blood pressure up. 2. 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 Conservative therapy and hemodynamic management with normal saline ideally with bicarbonate addition. We will continue to measure QT interval in this patient. I will obtain 2D echocardiography to assess left ventricular systolic function. I would like to thank, Dr. Anaya, for allowing me to participate in the care of this patient. Jorge Mcdonough M.D. DR: PAUL JOB#: [id number] CC:
[2017-08-31] MEDS: Morphine Sulfate 4mg/ml Inj (IV USE ONLY) IVP PRN ×4 (00:31→16:06)
[2017-08-31] MEDS: Midazolam/D5W 100ml 100 ML IVPB PRN ×4 (02:09→20:41)
--- NOTE | 2017-08-31 03:15 | Consultation ---
DATE OF CONSULTATION: 08/30/2017 NEPHROLOGY CONSULTATION CONSULTING PHYSICIAN: Aixa Veloz M.D. REFERRING PHYSICIAN: Reid Anaya D.O. REASON FOR CONSULTATION: Acute renal failure and hyperkalemia. HISTORY OF PRESENT ILLNESS: The patient is a 37-year-old male with a history of multiple drug abuse. The patient was found in the hotel bed at 7:19 after being found unresponsive and diaphoretic. The civil engineer helper was called. The patient was found to have an empty bag of heroin and needle in his room. The patient was brought into the emergency room. Initial blood glucose was 53 and blood pressure . The patient was given two amps of Narcan, intubated at the field, and brought into ICU. Apparently overnight, the patient was making urine, but this morning, the patient's urine continued to be decreasing and also the patient was found to be hyperkalemic and hyperuricemic. The patient was found to have severe rhabdo. CK-MB more than 10,000. The patient was found to have a shock liver and in unstable condition, I was called for management of renal disease and electrolyte imbalance. PAST MEDICAL HISTORY: Unknown. SOCIAL HISTORY: Based on the information from the chart, the patient has a history of cocaine, amphetamine, and heroin use. FAMILY HISTORY: Unknown. REVIEW OF SYSTEMS: Unable to obtain. The patient is intubated and unable to provide any history for me. PHYSICAL EXAMINATION: VITAL SIGNS: The patient had temperature of 98 degrees, blood pressure 112/74, pulse rate of 100, and respiratory rate of 18. HEAD AND NECK: No JVP. No LAD. G-tube is in place. Head is atraumatic and normocephalic. LUNGS: He has decreased breathing sounds on the both sides. CARDIAC: Regular rate and rhythm. S1 and S2. No murmur. No rub. ABDOMEN: Soft. Bowel sounds positive. EXTREMITIES: No edema. No clubbing. No cyanosis. LABORATORY AND DIAGNOSTIC DATA: The patient was found to have WBC count of 14,000, hemoglobin is 16, hematocrit of 46, and platelet count of 219,000. Chemistry was done revealed sodium of 143, potassium 5.7, chloride 109, bicarbonate 24, BUN of 44, creatinine of 5.2, glucose of 119, and calcium was 6. Uric acid was 10. Lactic acid was 2.4. CPK more than 10,000. The urine tox was positive for opiates, positive for amphetamine, and positive for cocaine and marijuana. UA reveals specific gravity of 1.015, protein 3+, ketones 1+, blood 5+, rbc's of 5 to 10, and wbc's of 2 to 4. Urine sodium of 59. ASSESSMENT: 1. Acute rhabdomyolysis. 2. Hypocalcemia. 3. Hyperkalemia. 4. Lactic acidosis. 5. Shock liver. 6. History of multiple drug use. PLAN: The patient this morning when I saw him, he did not have any urine output and based on the discussion I had with the social media marketing specialist, Dr. Andre, we decided to bolus the patient with normal saline about 3 liters. The patient did not respond to any IV fluids at this time and due to electrolyte abnormality, we decided to place the monitoring catheter and dialyze for electrolyte abnormality and anuria. I also changed the IV fluid to D5 half plus 1 amp of bicarb for alkalinizing the urine. I would like to order urine protein-creatinine 4+ protein, but clearly based on the urine test, the patient has rhabdo and based on the uric acid, hypocalcemia, and hyperkalemia. I would monitor the patient. I would declare that at this point, the patient is in very critical condition and poor prognosis due to multiorgan failure. I would consider dialyzing the patient and alkalinizing the urine and also urine study. Again, I would like to thank Dr. Reid Anaya for allowing me to participate in the care of this patient. Aixa Veloz M.D. DR: LEX JOB#: [id number] CC:
[2017-08-31] MEDS: LORazepam Inj 2mg/ml 1ml IV PRN ×3 (04:44→16:04)
[2017-08-31] MEDS: D5 IV SCH ×3 (04:58→18:15)
[2017-08-31] MEDS: [UNRECOGNIZED DRUG - OTHER] IV SCH ×3 (04:58→18:15)
[2017-08-31] MEDS: SODIUM BICARBONATE IV SCH ×3 (04:58→18:15)
[2017-08-31 05:30] LABS: HEMATOCRIT 41.1 % (42.0-52.0); MEAN CORPUSCULAR VOLUME 94 FL (80-99); PLATELET COUNT 184 K/UL (150-450); RED BLOOD COUNT 4.35 M/UL (4.70-6.10); RED CELL DISTRIBUTION WIDTH 11.7 % (11.6-14.8); WHITE BLOOD COUNT 16.2 K/UL (4.8-10.8)
[2017-08-31 05:38] LABS: PHOSPHORUS 6.6 MG/DL (2.5-4.9)
[2017-08-31] MEDS: Haloperidol Lactate 5 MG in D5W 55 ML IVPB PRN ×2 (05:52→20:33)
[2017-08-31 06:13] LABS: ALANINE AMINOTRANSFERASE 1124 U/L (12-78); ALBUMIN 2.4 G/DL (3.4-5.0); ALBUMIN/GLOBULIN RATIO 0.8 (1.0-2.7); ALKALINE PHOSPHATASE 60 U/L (46-116); ANION GAP 9 mmol/L (5-15); BILIRUBIN,TOTAL 1.4 MG/DL (0.2-1.0); BLOOD UREA NITROGEN 39 mg/dL (7-18); CALCIUM 6.5 MG/DL (8.5-10.1); CARBON DIOXIDE 26 MMOL/L (21-32); CHLORIDE 104 MMOL/L (98-107); CREATININE 4.7 MG/DL (0.55-1.30); POTASSIUM 4.8 MMOL/L (3.5-5.1); SODIUM 139 MMOL/L (136-145)
[2017-08-31 06:17] LABS: BILIRUBIN,DIRECT 0.3 MG/DL (0.0-0.3)
[2017-08-31 07:07] LABS: ASPARTATE AMINO TRANSFERASE 3755 U/L (15-37)
--- NOTE | 2017-08-31 07:17 | General Progress Note ---
Assessment/Plan Problem List: (1) Substance abuse ICD Codes: F19.10 - Other psychoactive substance abuse, uncomplicated SNOMED: 25515917 (2) Respiratory failure ICD Codes: J96.90 - Respiratory failure, unspecified, unspecified whether with hypoxia or hypercapnia SNOMED: 335000292 Qualifiers: Qualified Codes: J96.01 - Acute respiratory failure with hypoxia (3) Rhabdomyolysis ICD Codes: M62.82 - Rhabdomyolysis SNOMED: 639455976 Qualifiers: Qualified Codes: T79.6XXA - Traumatic ischemia of muscle, initial encounter (4) NSTEMI (non-ST elevated myocardial infarction) ICD Codes: I21.4 - Non-ST elevation (NSTEMI) myocardial infarction SNOMED: 603680295 (5) LUCRECIA (acute kidney injury) ICD Codes: N17.9 - Acute kidney failure, unspecified SNOMED: 76367730 Status: unchanged Assessment/Plan vent abx neuro psyc eval cbc bmp am Subjective Constitutional: Reports: weakness Allergies: Coded Allergies: UNABLE TO ASSESS (Unverified , 08/29/17) All Systems: reviewed and negative except above Subjective intub sedated ng in icu Objective Last 24 Hour Vital Signs Date Time Temp Pulse Resp B/P (MAP) Pulse Ox O2 Delivery O2 Flow Rate FiO2 08/31/17 07:10 93 34 100 08/31/17 07:00 100.0 92 25 122/61 (81) 91 100.0 08/31/17 07:00 20 08/31/17 06:00 99.9 101 29 142/80 (100) 90 99.9 08/31/17 06:00 24 08/31/17 05:12 98 30 100 08/31/17 05:00 96 30 136/73 (94) 91 08/31/17 04:00 Mechanical Ventilator 08/31/17 04:00 90 08/31/17 04:00 24 08/31/17 04:00 100 08/31/17 04:00 98.5 103 26 139/82 (101) 88 98.5 08/31/17 03:00 24 08/31/17 03:00 96 26 151/85 (107) 88 08/31/17 02:54 95 25 100 08/31/17 02:09 26 08/31/17 02:00 100.1 96 26 161/104 (123) 88 100.1 7/21/18 02:00 26 718 01:09 89 25 100 718 01:00 91 22 127/79 (95) 89 18 01:00 20 18 00:00 100 7/18 00:00 110 718 00:00 Mechanical Ventilator 08/31/17 00:00 22 08/31/17 00:00 99.0 91 34 170/79 (109) 88 99.0 2018 23:34 23 720/18 23:00 95 22 112/71 (85) 90 72018 23:00 24 18 22:55 96 28 100 18 22:00 20 18 22:00 93 25 115/63 (80) 96 2018 21:05 99 23 100 72018 21:00 109 34 92/50 (64) 99 18 21:00 25 18 20:00 103 2018 20:00 119/57 72018 20:00 20 2018 20:00 Mechanical Ventilator 08/30/17 20:00 100 718 20:00 102.8 112 30 100/53 (69) 97 102.8 720/18 19:00 101 28 119/57 (77) 99 7/20/18 18:58 22 7/18 18:45 Mechanical Ventilator 100 18 18:35 96 32 100 720/18 18:30 93 19 111/54 (73) 97 720/18 18:00 24 720/18 18:00 111 33 124/58 (80) 98 7/20/18 17:55 98.7 7/20/18 17:30 96 21 110/57 (74) 97 7/20/18 17:25 98 22 100 7/20/18 17:00 98 20 105/58 (74) 98 7/20/18 17:00 25 720/18 16:30 99 21 111/55 (73) 96 7/20/18 16:10 100.5 720/18 16:00 Mechanical Ventilator 18 16:00 100 720/18 16:00 100.5 102 23 118/60 (79) 96 100.5 7/20/18 16:00 105 7/20/18 16:00 24 7/20/18 15:40 Mechanical Ventilator 100 7/20/18 15:30 104 26 112/54 (73) 96 7/20/18 15:05 104 24 100 7/20/18 15:00 108 24 116/86 (96) 97 7/20/18 15:00 21 7/20/18 14:30 107 26 114/56 (75) 97 7/20/18 14:00 99 24 99/48 (65) 96 7/20/18 14:00 22 7/20/18 13:30 99 21 99/56 (70) 96 7/20/18 13:12 101 23 100 7/20/18 13:00 99 20 99/48 (65) 96 7/20/18 13:00 22 7/20/18 12:30 101 19 102/46 (64) 97 7/20/18 12:00 100 7/20/18 12:00 22 7/20/18 12:00 Mechanical Ventilator 72018 12:00 99.1 102 19 92/55 (67) 97 99.1 7/20/18 12:00 103 7/20/18 11:30 103 21 100/54 (69) 98 7/20/18 11:00 104 21 94/57 (69) 99 7/20/18 11:00 23 7/20/18 10:44 107 20 100 7/20/18 10:30 109 25 108/50 (69) 98 7/20/18 10:00 108 19 91/44 (60) 37 7/20/18 10:00 23 7/20/18 09:30 111 27 100/56 (71) 97 7/20/18 09:24 20 7/20/18 09:20 111 30 100 7/20/18 09:00 110 26 98/58 (71) 97 7/20/18 09:00 19 7/20/18 08:30 109 24 94/52 (66) 97 7/20/18 08:00 100 7/20/18 08:00 107 7/20/18 08:00 100.0 111 25 109/57 (74) 97 100.0 7/20/18 08:00 24 7/20/18 08:00 Mechanical Ventilator 08/30/17 07:30 110 24 94/52 (66) 97 Intake and Output 08/30/17 08/31/17 19:00 07:00 Intake Total 4435.0 ml 1572 ml Output Total 270 ml 115 ml Balance 4165.0 ml 1457 ml Free Water 200 ml IV Total 4125.0 ml 1572 ml Other 110 ml Output Urine Total 270 ml 115 ml Hemodialysis UF 0 ml Laboratory Tests 08/30/17 10:20: Urine Color Yellow, Urine Appearance Turbid, Urine pH 5, Urine Specific [place] 1.015, Urine Protein 3+H, Urine Glucose (UA) Negative, Urine Ketones 1+H, Urine Occult Blood 5+H, Urine Nitrite PositiveH, Urine Bilirubin Negative, Urine Urobilinogen Normal, Urine Leukocyte Esterase 1+H, Urine RBC 5-10H, Urine WBC 2- 4, Urine Squamous Epithelial Cells Few, Urine Amorphous Sediment ModerateH, Urine Bacteria ManyH, Urine Granular Casts 0-2H, Urine Eosinophils None seen, Urine Random Sodium 59, Urine Potassium Timed 63H, Chlamydia trachomatis RNA [ Pending], Neisseria gonorrhoeae RNA [Pending] 08/30/17 11:00: Lactic Acid Level 2.80H 08/30/17 12:10: Lactic Acid Level 2.40H 08/30/17 17:55: Lactic Acid Level 3.00H, Random Vancomycin Level 4.8 08/31/17 05:00: White Blood Count 16.2H, Red Blood Count 4.35L, Hemoglobin 14.0L, Hematocrit 41.1L, Mean Corpuscular Volume 94, Mean Corpuscular Hemoglobin 32.2H, Mean Corpuscular Hemoglobin Concent 34.1, Red Cell Distribution Width 11.7, Platelet Count 184, Mean Platelet Volume 6.9, Neutrophils (%) (Auto) , Lymphocytes (%) ( Auto) , Monocytes (%) (Auto) , Eosinophils (%) (Auto) , Basophils (%) (Auto) , Neutrophils % (Manual) [Pending], Lymphocytes % (Manual) [Pending], Platelet Estimate [Pending], Platelet Morphology [Pending], Sodium Level 139, Potassium Level 4.8, Chloride Level 104, Carbon Dioxide Level 26, Anion Gap 9, Blood Urea Nitrogen 39H, Creatinine 4.7H, Estimat Glomerular Filtration Rate 13.9, Glucose Level 133H, Lactic Acid Level 3.10H, Calcium Level 6.5L, Phosphorus Level 6.6H, Magnesium Level 2.0, Total Bilirubin 1.4H, Direct Bilirubin 0.3, Aspartate Amino Transf (AST/SGOT) 3755H, Alanine Aminotransferase (ALT/SGPT) 1124H, Alkaline Phosphatase 60, Total Creatine Kinase [Pending], Total Protein 5.5L, Albumin 2.4L, Globulin 3.1, Albumin/Globulin Ratio 0.8L, Lipase 452H, Rapid Plasma Reagin [Pending], Treponema pallidum Ab (FTA-ABS) [Pending], Hepatitis A IgM Antibody [Pending], Hepatitis A Antibody Total [Pending], Hepatitis B Surface Antigen [Pending], Hepatitis B Surface Antibody [Pending], Hepatitis B Core Total Antibody [Pending], Hepatitis B Core IgM Antibody [Pending], Hepatitis C Antibody [Pending], HIV-1 RNA (PCR) log10 Value [Pending], HIV-1 RNA Ultraquantitative (PCR) [Pending], HIV (1&2) Antibody Rapid Negative Height (Feet): 5 Height (Inches): 8.00 Weight (Pounds): 180 General Appearance: lethargic EENT: normal ENT inspection Neck: normal alignment Cardiovascular: normal peripheral pulses, normal rate, regular rhythm Respiratory/Chest: chest wall non-tender, lungs clear, normal breath sounds Abdomen: normal bowel sounds, non tender, soft Extremities: normal inspection Edema: no edema noted Arm (L), no edema noted Arm (R), no edema noted Leg (L), no edema noted Leg (R), no edema noted Pedal (L), no edema noted Pedal (R), no edema noted Generalized Neurologic: motor weakness Skin: normal pigmentation, warm/dry Reid Anaya DO Aug 31, 2017 07:17
[2017-08-31 08:13] LABS: CREATINE KINASE > 10000 U/L (26-308)
[2017-08-31] MEDS: Pantoprazole Inj IVP SCH ×2 (08:47→21:16)
[2017-08-31] MEDS: Heparin 5000 units/ml inj SUBQ SCH ×2 (08:50→21:19)
[2017-08-31] MEDS: Piperacillin/Tazobactam 3.375 GM in NS 110 ML IVPB SCH ×2 (09:04→21:17)
--- NOTE | 2017-08-31 10:04 | Pulmonolgy Critical Care Note ---
Critical Care - Asmt/Plan Problems: (1) Respiratory failure (2) Aspiration pneumonia (3) Rhabdomyolysis (4) LUCRECIA (acute kidney injury) (5) NSTEMI (non-ST elevated myocardial infarction) (6) Substance abuse Respiratory: monitor respiratory rate, adjust FIO2, CXR, other - severe pulmonary edema Cardiac: continue to monitor HR/BP, other - echo showing EF of 55 Renal: keep IV fluid Infectious Disease: check cultures, add antibiotics Gastrointestinal: continue feedings/current rate Endocrine: monitor blood sugar Hematologic: monitor H/H Neurologic: PRN Ativan, PRN Morphine Prophylaxis: Protonix, Heparin Notes Reviewed: cardio, renal Discussed with: nurses, consultants, case workermanager msw - Objective Last 24 Hour Vital Signs Date Time Temp Pulse Resp B/P (MAP) Pulse Ox O2 Delivery O2 Flow Rate FiO2 08/31/17 09:50 97.4 08/31/17 09:09 89 25 100 08/31/17 08:53 27 08/31/17 07:10 93 34 100 08/31/17 07:00 100.0 92 25 122/61 (81) 91 100.0 08/31/17 07:00 20 08/31/17 06:00 99.9 101 29 142/80 (100) 90 99.9 08/31/17 06:00 24 08/31/17 05:12 98 30 100 08/31/17 05:00 96 30 136/73 (94) 91 08/31/17 04:00 Mechanical Ventilator 08/31/17 04:00 90 08/31/17 04:00 24 08/31/17 04:00 100 08/31/17 04:00 98.5 103 26 139/82 (101) 88 98.5 08/31/17 03:00 24 08/31/17 03:00 96 26 151/85 (107) 88 08/31/17 02:54 95 25 100 08/31/17 02:09 26 08/31/17 02:00 100.1 96 26 161/104 (123) 88 100.1 08/31/17 02:00 26 08/31/17 01:09 89 25 100 08/31/17 01:00 91 22 127/79 (95) 89 08/31/17 01:00 20 08/31/17 00:00 100 7/21/18 00:00 110 7/21/18 00:00 Mechanical Ventilator 7/18 00:00 22 7//18 00:00 99.0 91 34 170/79 (109) 88 99.0 7/20/18 23:34 23 7/20/18 23:00 95 22 112/71 (85) 90 7/20/18 23:00 24 7/20/18 22:55 96 28 100 7/20/18 22:00 20 7/20/18 22:00 93 25 115/63 (80) 96 7/20/18 21:05 99 23 100 7/20/18 21:00 109 34 92/50 (64) 99 7/20/18 21:00 25 7/20/18 20:00 103 7/20/18 20:00 119/57 7/20/18 20:00 20 7/20/18 20:00 Mechanical Ventilator 720/18 20:00 100 7/20/18 20:00 102.8 112 30 100/53 (69) 97 102.8 7/20/18 19:00 101 28 119/57 (77) 99 7/20/18 18:58 22 7/20/18 18:45 Mechanical Ventilator 100 7/20/18 18:35 96 32 100 7/20/18 18:30 93 19 111/54 (73) 97 7/20/18 18:00 24 7/20/18 18:00 111 33 124/58 (80) 98 7/20/18 17:55 98.7 7/20/18 17:30 96 21 110/57 (74) 97 7/20/18 17:25 98 22 100 7/20/18 17:00 98 20 105/58 (74) 98 7/20/18 17:00 25 7/20/18 16:30 99 21 111/55 (73) 96 7/20/18 16:10 100.5 7/20/18 16:00 Mechanical Ventilator 7/20/18 16:00 100 7/20/18 16:00 100.5 102 23 118/60 (79) 96 100.5 7/20/18 16:00 105 7/20/18 16:00 24 7/20/18 15:40 Mechanical Ventilator 100 7/20/18 15:30 104 26 112/54 (73) 96 7/20/18 15:05 104 24 100 08/30/17 15:00 108 24 116/86 (96) 97 08/30/17 15:00 21 08/30/17 14:30 107 26 114/56 (75) 97 08/30/17 14:00 99 24 99/48 (65) 96 08/30/17 14:00 22 08/30/17 13:30 99 21 99/56 (70) 96 08/30/17 13:12 101 23 100 08/30/17 13:00 99 20 99/48 (65) 96 08/30/17 13:00 22 08/30/17 12:30 101 19 102/46 (64) 97 08/30/17 12:00 100 08/30/17 12:00 22 08/30/17 12:00 Mechanical Ventilator 08/30/17 12:00 99.1 102 19 92/55 (67) 97 99.1 08/30/17 12:00 103 08/30/17 11:30 103 21 100/54 (69) 98 08/30/17 11:00 104 21 94/57 (69) 99 08/30/17 11:00 23 08/30/17 10:44 107 20 100 08/30/17 10:30 109 25 108/50 (69) 98 Status: awake Condition: critical HEENT: atraumatic Lungs: clear, chest wall tender Heart: HR/BP stable Abdomen: soft Extremities: no C/C/E Decubiti: location Micro: Microbiology Date/Time Source Procedure Growth Status 08/29/17 12:45 Blood Blood Culture - Preliminary NO GROWTH AFTER 24 HOURS Resulted 08/29/17 12:35 Blood Blood Culture - Preliminary NO GROWTH AFTER 24 HOURS Resulted 08/29/17 17:50 Nasal Nares MRSA Culture - Final NO METHICILLIN RESISTANT STAPH AUREUS... Complete 08/30/17 10:20 Urine,Clean Catch Urine Culture - Preliminary NO GROWTH Resulted Accucheck: 96 Critical Care - Subjective ROS Limited/Unobtainable: Yes Condition: critical EKG Rhythm: Sinus Rhythm FI02: 100 Vent Support Breath Rate: 16 Vent Support Mode: AC Vent Tidal Volume: 500 Sputum Amount: Moderate PEEP: 0.0 PIP: 7 I&O: Intake and Output 08/30/17 08/31/17 19:00 07:00 Intake Total 4435.0 ml 1572 ml Output Total 270 ml 115 ml Balance 4165.0 ml 1457 ml Free Water 200 ml IV Total 4125.0 ml 1572 ml Other 110 ml Output Urine Total 270 ml 115 ml Hemodialysis UF 0 ml CXR: bilateral edema ET-Tube: 7.5 ET Position: 23 Labs: Laboratory Tests Test 08/30/17 10:20 08/30/17 11:00 08/30/17 12:10 08/30/17 17:55 Urine Color Yellow Urine Appearance Turbid Urine pH 5 (4.5-8.0) Urine Specific [place] 1.015 (1.005-1.035) Urine Protein 3+ (NEGATIVE) H Urine Glucose (UA) Negative (NEGATIVE) Urine Ketones 1+ (NEGATIVE) H Urine Occult Blood 5+ (NEGATIVE) H Urine Nitrite Positive (NEGATIVE) H Urine Bilirubin Negative (NEGATIVE) Urine Urobilinogen Normal MG/DL (0.0-1.0) Urine Leukocyte Esterase 1+ (NEGATIVE) H Urine RBC 5-10 /HPF (0 - 0) H Urine WBC 2-4 /HPF (0 - 0) Urine Squamous Epithelial Cells Few /LPF (NONE/OCC) Urine Amorphous Sediment Moderate /LPF (NONE) H Urine Bacteria Many /HPF (NONE) H Urine Granular Casts 0-2 /LPF (NONE) H Urine Eosinophils None seen Urine Random Sodium 59 mmol/L (20-110) Urine Potassium Timed 63 mmol/L (12-62) H Chlamydia trachomatis RNA Pending Neisseria gonorrhoeae RNA Pending Lactic Acid Level 2.80 mmol/L (0.4-2.0) H 2.40 mmol/L (0.66-2.22) H 3.00 mmol/L (0.4-2.0) H Random Vancomycin Level 4.8 ug/mL Test 08/31/17 04:00 08/31/17 05:00 08/31/17 09:30 Arterial Blood pH 7.316 (7.350-7.450) Arterial Blood Partial Pressure CO2 46.6 mmHg (35.0-45.0) H Arterial Blood Partial Pressure O2 48.5 mmHg (75.0-100.0) Arterial Blood HCO3 23.3 mmol/L (22.0-26.0) Arterial Blood Oxygen Saturation 83.3 % (92.0-98.0) L Arterial Blood Base Excess -3.1 Miguel Test Positive White Blood Count 16.2 K/UL (4.8-10.8) H Red Blood Count 4.35 M/UL (4.70-6.10) L Hemoglobin 14.0 G/DL (14.2-18.0) L Hematocrit 41.1 % (42.0-52.0) L Mean Corpuscular Volume 94 FL (80-99) Mean Corpuscular Hemoglobin 32.2 PG (27.0-31.0) H Mean Corpuscular Hemoglobin Concent 34.1 G/DL (32.0-36.0) Red Cell Distribution Width 11.7 % (11.6-14.8) Platelet Count 184 K/UL (150-450) Mean Platelet Volume 6.9 FL (6.5-10.1) Neutrophils (%) (Auto) % (45.0-75.0) Lymphocytes (%) (Auto) % (20.0-45.0) Monocytes (%) (Auto) % (1.0-10.0) Eosinophils (%) (Auto) % (0.0-3.0) Basophils (%) (Auto) % (0.0-2.0) Differential Total Cells Counted 100 Neutrophils % (Manual) 75 % (45-75) Lymphocytes % (Manual) 6 % (20-45) L Monocytes % (Manual) 6 % (1-10) Eosinophils % (Manual) 0 % (0-3) Basophils % (Manual) 0 % (0-2) Band Neutrophils 13 % (0-8) H Platelet Estimate Adequate Platelet Morphology Normal Red Blood Cell Morphology Normal Sodium Level 139 MMOL/L (136-145) Potassium Level 4.8 MMOL/L (3.5-5.1) Chloride Level 104 MMOL/L (98-107) Carbon Dioxide Level 26 MMOL/L (21-32) Anion Gap 9 mmol/L (5-15) Blood Urea Nitrogen 39 mg/dL (7-18) H Creatinine 4.7 MG/DL (0.55-1.30) H Estimat Glomerular Filtration Rate 13.9 mL/min (>60) Glucose Level 133 MG/DL (74-106) H Lactic Acid Level 3.10 mmol/L (0.4-2.0) H Pending Calcium Level 6.5 MG/DL (8.5-10.1) L Phosphorus Level 6.6 MG/DL (2.5-4.9) H Magnesium Level 2.0 MG/DL (1.8-2.4) Total Bilirubin 1.4 MG/DL (0.2-1.0) H Direct Bilirubin 0.3 MG/DL (0.0-0.3) Aspartate Amino Transf (AST/SGOT) 3755 U/L (15-37) H Alanine Aminotransferase (ALT/SGPT) 1124 U/L (12-78) H Alkaline Phosphatase 60 U/L (46-116) Total Creatine Kinase > 66178 U/L (26-308) H Total Protein 5.5 G/DL (6.4-8.2) L Albumin 2.4 G/DL (3.4-5.0) L Globulin 3.1 g/dL Albumin/Globulin Ratio 0.8 (1.0-2.7) L Lipase 452 U/L (73-393) H Rapid Plasma Reagin Pending Treponema pallidum Ab (FTA-ABS) Pending Hepatitis A IgM Antibody Pending Hepatitis A Antibody Total Pending Hepatitis B Surface Antigen Pending Hepatitis B Surface Antibody Pending Hepatitis B Core Total Antibody Pending Hepatitis B Core IgM Antibody Pending Hepatitis C Antibody Pending HIV-1 RNA (PCR) log10 Value Pending HIV-1 RNA Ultraquantitative (PCR) Pending HIV (1&2) Antibody Rapid Negative (NEGATIVE) Arpita Andre MD Aug 31, 2017 10:04
--- NOTE | 2017-08-31 10:23 | Diagnostic Imaging Report ---
History: DYSPNEA Exam: XR CXR 1 VIEW Comparison: 08/29/2017 FINDINGS/IMPRESSION: Endotracheal tube 4.5 cm above the alonzo. Nasogastric tube within the stomach and extends off inferior edge of the film. Right IJ line noted. More consolidated areas within the diffuse airspace opacity within the right lung and now possible right pleural effusion. The patient is rotated to the right. Interval increase in patchy left perihilar airspace opacities. May represent component of pulmonary edema or aspiration pneumonitis. There is now appearance of possible left pleural effusion.
--- NOTE | 2017-08-31 11:02 | Infectious Diseases Prog Note ---
Assessment/Plan Assessment/Plan Assessment: Shock Aspiration PNA vs ARDS -CXR:More consolidated areas within the diffuse airspace opacity within the right lung and now possible right pleural effusion. The patient is rotated to the right. Interval increase in patchy left perihilar airspace opacities. May represent component of pulmonary edema or aspiration pneumonitis. Rule out sepsis -u/a wbc 5-10, nit neg, leuk +1; cx p -Bcx p Drug overdose -UDS + opiates, amphetamines, THC, cocaine -+empty heroin needles (found on hotel room) Multiorgan failure -LUCRECIA, worsening -Transaminitis, worse (shock liver) -VDRF (airway protection) Lactic acidosis; improving Rhabdomyolisis Pancreatitis- drug induced -neg alcohol levels Plan: -Continue empiric IV Vanco and IV Zosyn # 3 pending cultures -f/u cx (Bcx, ucx) -Monitor CBC/CMP, temperatures -ETT care -ICU care/support -aspiration precautions -CBC, CMP, CK, lipase, lactic acid am Subjective Constitutional: Denies: no symptoms, fever, chills, fatigue, anorexia, drenching sweats, other Allergies: Coded Allergies: UNABLE TO ASSESS (Unverified , 08/29/17) Objective Vital Signs Last 24 Hour Vital Signs Date Time Temp Pulse Resp B/P (MAP) Pulse Ox O2 Delivery O2 Flow Rate FiO2 08/31/17 09:50 97.4 08/31/17 09:09 89 25 100 08/31/17 08:53 27 08/31/17 07:10 93 34 100 08/31/17 07:00 100.0 92 25 122/61 (81) 91 100.0 08/31/17 07:00 20 08/31/17 06:00 99.9 101 29 142/80 (100) 90 99.9 08/31/17 06:00 24 08/31/17 05:12 98 30 100 08/31/17 05:00 96 30 136/73 (94) 91 08/31/17 04:00 Mechanical Ventilator 08/31/17 04:00 90 08/31/17 04:00 24 08/31/17 04:00 100 08/31/17 04:00 98.5 103 26 139/82 (101) 88 98.5 08/31/17 03:00 24 08/31/17 03:00 96 26 151/85 (107) 88 718 02:54 95 25 100 18 02:09 26 08/31/17 02:00 100.1 96 26 161/104 (123) 88 100.1 18 02:00 26 08/31/17 01:09 89 25 100 18 01:00 91 22 127/79 (95) 89 08/31/17 01:00 20 08/31/17 00:00 100 08/31/17 00:00 110 08/31/17 00:00 Mechanical Ventilator 08/31/17 00:00 22 08/31/17 00:00 99.0 91 34 170/79 (109) 88 99.0 08/30/17 23:34 23 [id number] 23:00 95 22 112/71 (85) 90 08/30/17 23:00 24 20/18 22:55 96 28 100 20/18 22:00 20 18 22:00 93 25 115/63 (80) 96 720/18 21:05 99 23 100 720/18 21:00 109 34 92/50 (64) 99 7/20/18 21:00 25 720/18 20:00 103 7/20/18 20:00 119/57 720/18 20:00 20 7/20/18 20:00 Mechanical Ventilator 08/30/17 20:00 100 7/20/18 20:00 102.8 112 30 100/53 (69) 97 102.8 720/18 19:00 101 28 119/57 (77) 99 7/20/18 18:58 22 7/20/18 18:45 Mechanical Ventilator 100 7/20/18 18:35 96 32 100 7/20/18 18:30 93 19 111/54 (73) 97 7/20/18 18:00 24 7/20/18 18:00 111 33 124/58 (80) 98 7/20/18 17:55 98.7 7/20/18 17:30 96 21 110/57 (74) 97 7/20/18 17:25 98 22 100 7/20/18 17:00 98 20 105/58 (74) 98 7/20/18 17:00 25 7/20/18 16:30 99 21 111/55 (73) 96 08/30/17 16:10 100.5 08/30/17 16:00 Mechanical Ventilator 08/30/17 16:00 100 08/30/17 16:00 100.5 102 23 118/60 (79) 96 100.5 08/30/17 16:00 105 08/30/17 16:00 24 08/30/17 15:40 Mechanical Ventilator 100 08/30/17 15:30 104 26 112/54 (73) 96 08/30/17 15:05 104 24 100 08/30/17 15:00 108 24 116/86 (96) 97 08/30/17 15:00 21 08/30/17 14:30 107 26 114/56 (75) 97 08/30/17 14:00 99 24 99/48 (65) 96 08/30/17 14:00 22 08/30/17 13:30 99 21 99/56 (70) 96 08/30/17 13:12 101 23 100 08/30/17 13:00 99 20 99/48 (65) 96 08/30/17 13:00 22 08/30/17 12:30 101 19 102/46 (64) 97 08/30/17 12:00 100 08/30/17 12:00 22 08/30/17 12:00 Mechanical Ventilator 08/30/17 12:00 99.1 102 19 92/55 (67) 97 99.1 08/30/17 12:00 103 08/30/17 11:30 103 21 100/54 (69) 98 08/30/17 11:00 104 21 94/57 (69) 99 08/30/17 11:00 23 Height (Feet): 5 Height (Inches): 8.00 Weight (Pounds): 180 HEENT: anicteric Respiratory/Chest: no respiratory distress Cardiovascular: regular rhythm Abdomen: no organomegaly Microbiology Date/Time Source Procedure Growth Status 08/29/17 12:45 Blood Blood Culture - Preliminary NO GROWTH AFTER 24 HOURS Resulted 08/29/17 12:35 Blood Blood Culture - Preliminary NO GROWTH AFTER 24 HOURS Resulted 08/29/17 17:50 Nasal Nares MRSA Culture - Final NO METHICILLIN RESISTANT STAPH AUREUS... Complete 08/30/17 10:20 Urine,Clean Catch Urine Culture - Preliminary NO GROWTH Resulted 08/29/17 17:50 Rectum VRE Culture - Final NO VANCOMYCIN RESISTANT ENTEROCOCCUS ... Complete 08/29/17 17:50 Rectum - Final NO CARBAPENEM-RESISTANT ENTEROBACTERI... Complete Laboratory Tests Test 08/30/17 11:00 08/30/17 12:10 08/30/17 17:55 08/31/17 04:00 Lactic Acid Level 2.80 mmol/L (0.4-2.0) H 2.40 mmol/L (0.66-2.22) H 3.00 mmol/L (0.4-2.0) H Random Vancomycin Level 4.8 ug/mL Arterial Blood pH 7.316 (7.350-7.450) Arterial Blood Partial Pressure CO2 46.6 mmHg (35.0-45.0) H Arterial Blood Partial Pressure O2 48.5 mmHg (75.0-100.0) Arterial Blood HCO3 23.3 mmol/L (22.0-26.0) Arterial Blood Oxygen Saturation 83.3 % (92.0-98.0) L Arterial Blood Base Excess -3.1 Miguel Test Positive Test 08/31/17 05:00 08/31/17 09:30 White Blood Count 16.2 K/UL (4.8-10.8) H Red Blood Count 4.35 M/UL (4.70-6.10) L Hemoglobin 14.0 G/DL (14.2-18.0) L Hematocrit 41.1 % (42.0-52.0) L Mean Corpuscular Volume 94 FL (80-99) Mean Corpuscular Hemoglobin 32.2 PG (27.0-31.0) H Mean Corpuscular Hemoglobin Concent 34.1 G/DL (32.0-36.0) Red Cell Distribution Width 11.7 % (11.6-14.8) Platelet Count 184 K/UL (150-450) Mean Platelet Volume 6.9 FL (6.5-10.1) Neutrophils (%) (Auto) % (45.0-75.0) Lymphocytes (%) (Auto) % (20.0-45.0) Monocytes (%) (Auto) % (1.0-10.0) Eosinophils (%) (Auto) % (0.0-3.0) Basophils (%) (Auto) % (0.0-2.0) Differential Total Cells Counted 100 Neutrophils % (Manual) 75 % (45-75) Lymphocytes % (Manual) 6 % (20-45) L Monocytes % (Manual) 6 % (1-10) Eosinophils % (Manual) 0 % (0-3) Basophils % (Manual) 0 % (0-2) Band Neutrophils 13 % (0-8) H Platelet Estimate Adequate Platelet Morphology Normal Red Blood Cell Morphology Normal Sodium Level 139 MMOL/L (136-145) Potassium Level 4.8 MMOL/L (3.5-5.1) Chloride Level 104 MMOL/L (98-107) Carbon Dioxide Level 26 MMOL/L (21-32) Anion Gap 9 mmol/L (5-15) Blood Urea Nitrogen 39 mg/dL (7-18) H Creatinine 4.7 MG/DL (0.55-1.30) H Estimat Glomerular Filtration Rate 13.9 mL/min (>60) Glucose Level 133 MG/DL (74-106) H Lactic Acid Level 3.10 mmol/L (0.4-2.0) H Pending Calcium Level 6.5 MG/DL (8.5-10.1) L Phosphorus Level 6.6 MG/DL (2.5-4.9) H Magnesium Level 2.0 MG/DL (1.8-2.4) Total Bilirubin 1.4 MG/DL (0.2-1.0) H Direct Bilirubin 0.3 MG/DL (0.0-0.3) Aspartate Amino Transf (AST/SGOT) 3755 U/L (15-37) H Alanine Aminotransferase (ALT/SGPT) 1124 U/L (12-78) H Alkaline Phosphatase 60 U/L (46-116) Total Creatine Kinase > 44900 U/L (26-308) H Total Protein 5.5 G/DL (6.4-8.2) L Albumin 2.4 G/DL (3.4-5.0) L Globulin 3.1 g/dL Albumin/Globulin Ratio 0.8 (1.0-2.7) L Lipase 452 U/L (73-393) H Rapid Plasma Reagin Pending Treponema pallidum Ab (FTA-ABS) Pending Hepatitis A IgM Antibody Pending Hepatitis A Antibody Total Pending Hepatitis B Surface Antigen Pending Hepatitis B Surface Antibody Pending Hepatitis B Core Total Antibody Pending Hepatitis B Core IgM Antibody Pending Hepatitis C Antibody Pending HIV-1 RNA (PCR) log10 Value Pending HIV-1 RNA Ultraquantitative (PCR) Pending HIV (1&2) Antibody Rapid Negative (NEGATIVE) Current Medications Medications (Trade) Dose Ordered Sig/Krystyna Route PRN Reason Start Time Stop Time Status Last Admin Dose Admin Acetaminophen (Tylenol) 650 mg Q4H PRN ORAL Fever (temp>100.5F) 08/29/17 14:45 09/28/17 14:44 08/31/17 08:48 Albuterol/ Ipratropium (Albuterol/ Ipratropium) 3 ml Q4H PRN HHN Shortness of Breath 08/29/17 14:45 09/03/17 14:44 Chlorhexidine Gluconate (Jyotsna-Hex 2%) 1 applic DAILY@2000 TOPIC 08/30/17 20:00 09/29/17 19:59 08/30/17 20:00 Dextrose (Dextrose 50%) 25 ml STAT PRN IV Hypoglycemia 08/29/17 14:45 09/28/17 14:44 Dextrose (Dextrose 50%) 50 ml STAT PRN IV Hypoglycemia 08/29/17 16:00 09/28/17 15:59 Fentanyl Citrate 1000 mcg/Sodium Chloride 100 ml @ 0 mls/hr Q24H IV 08/31/17 11:00 09/07/17 10:59 Furosemide (Lasix) 100 mg EVERY 12 HOURS IV 08/31/17 10:30 09/30/17 10:29 Haloperidol Lactate 5 mg/ Dextrose 56 ml @ 112 mls/hr Q1H PRN IVPB SEVERE AGITATION 08/30/17 11:30 09/29/17 11:29 08/31/17 05:52 Heparin Sodium (Porcine) (Heparin 5000 units/ml) 5,000 units EVERY 12 HOURS SUBQ 08/29/17 21:00 09/28/17 20:59 08/31/17 08:50 Heparin Sodium/ Sodium Chloride (Heparin 2000 units/Ns 1000ml premix) 2,000 unit ONCE INJ 08/30/17 14:15 09/01/17 14:14 08/30/17 14:30 Lidocaine HCl (Xylocaine 1% 30ml) 30 ml ONCE INJ 08/30/17 15:00 09/01/17 14:59 08/30/17 14:30 Lorazepam (Ativan 2mg/ml 1ml) 2 mg Q2H PRN IV agitation 08/29/17 14:45 09/05/17 14:44 08/31/17 08:50 Midazolam HCl 100 ml @ 0 mls/hr Q24H PRN IVPB See protocol text 08/29/17 18:30 09/05/17 18:29 08/31/17 08:53 Morphine Sulfate (Morphine Sulfate) 4 mg Q4H PRN IVP Severe Pain (Pain Scale 7-10) 08/29/17 14:45 09/05/17 14:44 08/31/17 09:50 Nitroglycerin (Ntg) 0.4 mg Q5M PRN SL Prn Chest Pain 08/29/17 14:45 09/28/17 14:44 Norepinephrine Bitartrate 8 mg/ Dextrose 500 ml @ 0 mls/hr Q24H IV 08/29/17 20:00 09/28/17 19:59 08/29/17 21:16 Ondansetron HCl (Zofran) 4 mg Q6H PRN IVP Nausea & Vomiting 08/29/17 14:45 09/28/17 14:44 08/29/17 18:23 Pantoprazole (Protonix) 40 mg EVERY 12 HOURS IVP 08/29/17 21:00 09/28/17 20:59 08/31/17 08:47 Piperacillin Sod/ Tazobactam Sod 3.375 gm/Sodium Chloride 110 ml @ 27.5 mls/hr EVERY 12 HOURS IVPB 08/29/17 21:00 09/03/17 20:59 08/31/17 09:04 Polyethylene Glycol (Miralax) 17 gm DAILYPRN PRN ORAL Constipation 08/29/17 14:45 09/28/17 14:44 Sodium Bicarbonate 50 ml/ Dextrose/Sodium Chloride 1,000 ml @ 125 mls/hr Q8H IV 08/30/17 13:30 09/29/17 13:29 08/31/17 04:58 Vancomycin HCl (Vanco rx to dose) 1 ea DAILY PRN MISC Per rx protocol 08/29/17 16:45 09/28/17 16:44 Carl Carranza MD Aug 31, 2017 11:02
--- NOTE | 2017-08-31 11:37 | Nephrology Progress Note ---
Assessment/Plan Assessment 1. Acute rhabdomyolysis. 2. Hypocalcemia. 3. Hyperkalemia. 4. Lactic acidosis. 5. Shock liver. 6. History of multiple drug use. Plan continue bicarbonate drip daily dialysis monitoring renal function decrease ivf monitoring out put Subjective ROS Limited/Unobtainable: Yes Constitutional: Reports: no symptoms HEENT: Reports: no symptoms Genitourinary: Reports: no symptoms Neurologic/Psychiatric: Reports: no symptoms Subjective intubated had dialysis yesterday continue to have low urine out put Objective Objective Last 24 Hour Vital Signs Date Time Temp Pulse Resp B/P (MAP) Pulse Ox O2 Delivery O2 Flow Rate FiO2 08/31/17 11:17 21 08/31/17 11:06 81 26 65 08/31/17 09:50 97.4 08/31/17 09:47 97.4 08/31/17 09:23 97.4 08/31/17 09:23 97.4 08/31/17 09:09 89 25 100 08/31/17 08:53 27 08/31/17 07:10 93 34 100 08/31/17 07:00 100.0 92 25 122/61 (81) 91 100.0 08/31/17 07:00 20 08/31/17 06:00 99.9 101 29 142/80 (100) 90 99.9 08/31/17 06:00 24 08/31/17 05:12 98 30 100 08/31/17 05:00 96 30 136/73 (94) 91 08/31/17 04:00 Mechanical Ventilator 08/31/17 04:00 90 08/31/17 04:00 24 08/31/17 04:00 100 08/31/17 04:00 98.5 103 26 139/82 (101) 88 98.5 08/31/17 03:00 24 08/31/17 03:00 96 26 151/85 (107) 88 08/31/17 02:54 95 25 100 08/31/17 02:09 26 08/31/17 02:00 100.1 96 26 161/104 (123) 88 100.1 08/31/17 02:00 26 08/31/17 01:09 89 25 100 08/31/17 01:00 91 22 127/79 (95) 89 08/31/17 01:00 20 7/21/18 00:00 100 7/21/18 00:00 110 7/21/18 00:00 Mechanical Ventilator 718 00:00 22 7//18 00:00 99.0 91 34 170/79 (109) 88 99.0 7/20/18 23:34 23 7/20/18 23:00 95 22 112/71 (85) 90 7/20/18 23:00 24 7/20/18 22:55 96 28 100 7/20/18 22:00 20 7/20/18 22:00 93 25 115/63 (80) 96 7/20/18 21:05 99 23 100 7/20/18 21:00 109 34 92/50 (64) 99 7/20/18 21:00 25 7/20/18 20:00 103 7/20/18 20:00 119/57 7/20/18 20:00 20 7/20/18 20:00 Mechanical Ventilator 720/18 20:00 100 7/20/18 20:00 102.8 112 30 100/53 (69) 97 102.8 7/20/18 19:00 101 28 119/57 (77) 99 7/20/18 18:58 22 7/20/18 18:45 Mechanical Ventilator 100 720/18 18:35 96 32 100 7/20/18 18:30 93 19 111/54 (73) 97 7/20/18 18:00 24 7/20/18 18:00 111 33 124/58 (80) 98 7/20/18 17:30 96 21 110/57 (74) 97 7/20/18 17:25 98 22 100 7/20/18 17:00 98 20 105/58 (74) 98 7/20/18 17:00 25 7/20/18 16:30 99 21 111/55 (73) 96 7/20/18 16:10 100.5 7/20/18 16:00 Mechanical Ventilator 720/18 16:00 100 7/20/18 16:00 100.5 102 23 118/60 (79) 96 100.5 7/20/18 16:00 105 7/20/18 16:00 24 7/20/18 15:40 Mechanical Ventilator 100 7/20/18 15:30 104 26 112/54 (73) 96 7/20/18 15:05 104 24 100 08/30/17 15:00 108 24 116/86 (96) 97 08/30/17 15:00 21 08/30/17 14:30 107 26 114/56 (75) 97 08/30/17 14:00 99 24 99/48 (65) 96 08/30/17 14:00 22 08/30/17 13:30 99 21 99/56 (70) 96 08/30/17 13:12 101 23 100 08/30/17 13:00 99 20 99/48 (65) 96 08/30/17 13:00 22 08/30/17 12:30 101 19 102/46 (64) 97 08/30/17 12:00 100 08/30/17 12:00 22 08/30/17 12:00 Mechanical Ventilator 08/30/17 12:00 99.1 102 19 92/55 (67) 97 99.1 08/30/17 12:00 103 Intake and Output 08/30/17 08/31/17 19:00 07:00 Intake Total 4435.0 ml 1572 ml Output Total 270 ml 115 ml Balance 4165.0 ml 1457 ml Free Water 200 ml IV Total 4125.0 ml 1572 ml Other 110 ml Output Urine Total 270 ml 115 ml Hemodialysis UF 0 ml Laboratory Tests 08/30/17 12:10: Lactic Acid Level 2.40H 08/30/17 17:55: Lactic Acid Level 3.00H, Random Vancomycin Level 4.8 08/31/17 04:00: Arterial Blood pH 7.316L, Arterial Blood Partial Pressure CO2 46.6H, Arterial Blood Partial Pressure O2 48.5*L, Arterial Blood HCO3 23.3, Arterial Blood Oxygen Saturation 83.3L, Arterial Blood Base Excess -3.1, Miguel Test Positive 08/31/17 05:00: Lactic Acid Level 3.10H, White Blood Count 16.2H, Red Blood Count 4.35L, Hemoglobin 14.0L, Hematocrit 41.1L, Mean Corpuscular Volume 94, Mean Corpuscular Hemoglobin 32.2H, Mean Corpuscular Hemoglobin Concent 34.1, Red Cell Distribution Width 11.7, Platelet Count 184, Mean Platelet Volume 6.9, Neutrophils (%) (Auto) , Lymphocytes (%) (Auto) , Monocytes (%) (Auto) , Eosinophils (%) (Auto) , Basophils (%) (Auto) , Differential Total Cells Counted 100, Neutrophils % (Manual) 75, Lymphocytes % (Manual) 6L, Monocytes % ( Manual) 6, Eosinophils % (Manual) 0, Basophils % (Manual) 0, Band Neutrophils 13H, Platelet Estimate Adequate, Platelet Morphology Normal, Red Blood Cell Morphology Normal, Sodium Level 139, Potassium Level 4.8, Chloride Level 104, Carbon Dioxide Level 26, Anion Gap 9, Blood Urea Nitrogen 39H, Creatinine 4.7H, Estimat Glomerular Filtration Rate 13.9, Glucose Level 133H, Calcium Level 6.5L , Phosphorus Level 6.6H, Magnesium Level 2.0, Total Bilirubin 1.4H, Direct Bilirubin 0.3, Aspartate Amino Transf (AST/SGOT) 3755H, Alanine Aminotransferase (ALT/SGPT) 1124H, Alkaline Phosphatase 60, Total Creatine Kinase > 89014R, Total Protein 5.5L, Albumin 2.4L, Globulin 3.1, Albumin/ Globulin Ratio 0.8L, Lipase 452H, Rapid Plasma Reagin [Pending], Treponema pallidum Ab (FTA-ABS) [Pending], Hepatitis A IgM Antibody [Pending], Hepatitis A Antibody Total [Pending], Hepatitis B Surface Antigen [Pending], Hepatitis B Surface Antibody [Pending], Hepatitis B Core Total Antibody [Pending], Hepatitis B Core IgM Antibody [Pending], Hepatitis C Antibody [Pending], HIV-1 RNA (PCR) log10 Value [Pending], HIV-1 RNA Ultraquantitative (PCR) [Pending], HIV (1&2) Antibody Rapid Negative 08/31/17 09:30: Lactic Acid Level 2.90H Height (Feet): 5 Height (Inches): 8.00 Weight (Pounds): 180 Objective HEAD AND NECK: No JVP. No LAD. G-tube is in place. Head is atraumatic and normocephalic. LUNGS: He has decreased breathing sounds on the both sides. CARDIAC: Regular rate and rhythm. S1 and S2. No murmur. No rub. ABDOMEN: Soft. Bowel sounds positive. EXTREMITIES: No edema. No clubbing. No cyanosis. Aixa Veloz MD Aug 31, 2017 11:37
[2017-08-31] MEDS ORDERED: Sterile Water Irrig 1000ml IRRIG ONE (17:39)
[2017-08-31] MEDS ORDERED: Tubing IV Secondary IV ONE (17:39)
--- NOTE | 2017-08-31 18:44 | Cardiology Progress Note ---
Assessment/Plan Assessment/Plan 1. Sinus tachycardia, resolved likely due to SIRS, increased adrenergic flow in response to cocaine and amphetamine abuse. Continue hydration. 2. LUCRECIA due to rhabdomyolysis. 3. Shock liver 4. Acute pancreatitis with systemic inflammatory response disease. 5. Elevated troponin I level likely myocarditis, sepsis, or due to shock. Subjective Subjective Sinus rhythm at 80. HD initiated. Intubated on the ventilator. Objective Last 24 Hour Vital Signs Date Time Temp Pulse Resp B/P (MAP) Pulse Ox O2 Delivery O2 Flow Rate FiO2 08/31/17 18:00 18 08/31/17 17:16 88 24 65 08/31/17 17:00 90 26 103/55 (71) 100 08/31/17 17:00 20 08/31/17 16:06 99.0 08/31/17 16:00 99.2 91 26 125/63 (83) 100 99.2 08/31/17 16:00 18 08/31/17 16:00 Mechanical Ventilator 08/31/17 16:00 99.7 91 26 109/59 (76) 100 99.7 08/31/17 16:00 65 08/31/17 15:15 99.0 94 24 121/76 (91) 99.0 08/31/17 15:15 Mechanical Ventilator 55 08/31/17 15:05 97.0 08/31/17 15:00 99.1 96 26 121/76 (91) 100 99.1 08/31/17 15:00 24 08/31/17 14:37 97 29 65 08/31/17 14:35 24 08/31/17 14:00 98 26 112/66 (81) 100 08/31/17 14:00 30 08/31/17 13:00 6 08/31/17 13:00 96 25 113/71 (85) 97 08/31/17 13:00 98 28 65 08/31/17 12:00 95 25 122/66 (84) 97 08/31/17 12:00 93 08/31/17 12:00 23 08/31/17 12:00 65 08/31/17 12:00 Mechanical Ventilator 08/31/17 11:47 97.0 08/31/17 11:17 21 08/31/17 11:06 81 26 65 08/31/17 11:00 97.0 83 24 119/62 (81) 90 97.0 08/31/17 11:00 22 08/31/17 11:00 65 08/31/17 10:00 22 08/31/17 10:00 86 25 115/63 (80) 89 08/31/17 09:50 97.4 08/31/17 09:47 97.4 08/31/17 09:23 97.4 08/31/17 09:09 89 25 100 08/31/17 09:00 22 08/31/17 09:00 90 134/75 (94) 08/31/17 08:53 27 08/31/17 08:00 100 08/31/17 08:00 Mechanical Ventilator 08/31/17 08:00 109 08/31/17 08:00 90 25 124/66 (85) 89 08/31/17 07:10 93 34 100 08/31/17 07:00 100.0 92 25 122/61 (81) 91 100.0 08/31/17 07:00 20 08/31/17 06:00 99.9 101 29 142/80 (100) 90 99.9 08/31/17 06:00 24 08/31/17 05:12 98 30 100 08/31/17 05:00 96 30 136/73 (94) 91 08/31/17 04:00 Mechanical Ventilator 08/31/17 04:00 90 08/31/17 04:00 24 08/31/17 04:00 100 08/31/17 04:00 98.5 103 26 139/82 (101) 88 98.5 08/31/17 03:00 24 08/31/17 03:00 96 26 151/85 (107) 88 08/31/17 02:54 95 25 100 08/31/17 02:09 26 08/31/17 02:00 100.1 96 26 161/104 (123) 88 100.1 08/31/17 02:00 26 08/31/17 01:09 89 25 100 08/31/17 01:00 91 22 127/79 (95) 89 08/31/17 01:00 20 08/31/17 00:00 100 08/31/17 00:00 110 08/31/17 00:00 Mechanical Ventilator 08/31/17 00:00 22 08/31/17 00:00 99.0 91 34 170/79 (109) 88 99.0 08/30/17 23:34 23 08/30/17 23:00 95 22 112/71 (85) 90 08/30/17 23:00 24 08/30/17 22:55 96 28 100 08/30/17 22:00 20 08/30/17 22:00 93 25 115/63 (80) 96 08/30/17 21:05 99 23 100 08/30/17 21:00 109 34 92/50 (64) 99 08/30/17 21:00 25 08/30/17 20:00 103 08/30/17 20:00 119/57 08/30/17 20:00 20 08/30/17 20:00 Mechanical Ventilator 08/30/17 20:00 100 08/30/17 20:00 102.8 112 30 100/53 (69) 97 102.8 08/30/17 19:00 101 28 119/57 (77) 99 08/30/17 18:58 22 08/30/17 18:45 Mechanical Ventilator 100 Intake and Output 08/30/17 08/31/17 19:00 07:00 Intake Total 4435.0 ml 1572 ml Output Total 270 ml 115 ml Balance 4165.0 ml 1457 ml Free Water 200 ml IV Total 4125.0 ml 1572 ml Other 110 ml Output Urine Total 270 ml 115 ml Hemodialysis UF 0 ml 2D Echo: LVEF 55-60% Laboratory Tests Test 08/31/17 04:00 08/31/17 05:00 08/31/17 09:30 08/31/17 15:40 Arterial Blood pH 7.316 (7.350-7.450) Arterial Blood Partial Pressure CO2 46.6 mmHg (35.0-45.0) H Arterial Blood Partial Pressure O2 48.5 mmHg (75.0-100.0) Arterial Blood HCO3 23.3 mmol/L (22.0-26.0) Arterial Blood Oxygen Saturation 83.3 % (92.0-98.0) L Arterial Blood Base Excess -3.1 Miguel Test Positive White Blood Count 16.2 K/UL (4.8-10.8) H Red Blood Count 4.35 M/UL (4.70-6.10) L Hemoglobin 14.0 G/DL (14.2-18.0) L Hematocrit 41.1 % (42.0-52.0) L Mean Corpuscular Volume 94 FL (80-99) Mean Corpuscular Hemoglobin 32.2 PG (27.0-31.0) H Mean Corpuscular Hemoglobin Concent 34.1 G/DL (32.0-36.0) Red Cell Distribution Width 11.7 % (11.6-14.8) Platelet Count 184 K/UL (150-450) Mean Platelet Volume 6.9 FL (6.5-10.1) Neutrophils (%) (Auto) % (45.0-75.0) Lymphocytes (%) (Auto) % (20.0-45.0) Monocytes (%) (Auto) % (1.0-10.0) Eosinophils (%) (Auto) % (0.0-3.0) Basophils (%) (Auto) % (0.0-2.0) Differential Total Cells Counted 100 Neutrophils % (Manual) 75 % (45-75) Lymphocytes % (Manual) 6 % (20-45) L Monocytes % (Manual) 6 % (1-10) Eosinophils % (Manual) 0 % (0-3) Basophils % (Manual) 0 % (0-2) Band Neutrophils 13 % (0-8) H Platelet Estimate Adequate Platelet Morphology Normal Red Blood Cell Morphology Normal Sodium Level 139 MMOL/L (136-145) Potassium Level 4.8 MMOL/L (3.5-5.1) Chloride Level 104 MMOL/L (98-107) Carbon Dioxide Level 26 MMOL/L (21-32) Anion Gap 9 mmol/L (5-15) Blood Urea Nitrogen 39 mg/dL (7-18) H Creatinine 4.7 MG/DL (0.55-1.30) H Estimat Glomerular Filtration Rate 13.9 mL/min (>60) Glucose Level 133 MG/DL (74-106) H Lactic Acid Level 3.10 mmol/L (0.4-2.0) H 2.90 mmol/L (0.66-2.22) H 0.60 mmol/L (0.4-2.0) Calcium Level 6.5 MG/DL (8.5-10.1) L Phosphorus Level 6.6 MG/DL (2.5-4.9) H Magnesium Level 2.0 MG/DL (1.8-2.4) Total Bilirubin 1.4 MG/DL (0.2-1.0) H Direct Bilirubin 0.3 MG/DL (0.0-0.3) Aspartate Amino Transf (AST/SGOT) 3755 U/L (15-37) H Alanine Aminotransferase (ALT/SGPT) 1124 U/L (12-78) H Alkaline Phosphatase 60 U/L (46-116) Total Creatine Kinase > 98635 U/L (26-308) H Total Protein 5.5 G/DL (6.4-8.2) L Albumin 2.4 G/DL (3.4-5.0) L Globulin 3.1 g/dL Albumin/Globulin Ratio 0.8 (1.0-2.7) L Lipase 452 U/L (73-393) H Rapid Plasma Reagin Pending Treponema pallidum Ab (FTA-ABS) Pending Hepatitis A IgM Antibody Pending Hepatitis A Antibody Total Pending Hepatitis B Surface Antigen Pending Hepatitis B Surface Antibody Pending Hepatitis B Core Total Antibody Pending Hepatitis B Core IgM Antibody Pending Hepatitis C Antibody Pending HIV-1 RNA (PCR) log10 Value Pending HIV-1 RNA Ultraquantitative (PCR) Pending HIV (1&2) Antibody Rapid Negative (NEGATIVE) Microbiology Date/Time Source Procedure Growth Status 08/29/17 12:45 Blood Blood Culture - Preliminary NO GROWTH AFTER 24 HOURS Resulted 08/29/17 12:35 Blood Blood Culture - Preliminary NO GROWTH AFTER 24 HOURS Resulted 08/29/17 17:50 Nasal Nares MRSA Culture - Final NO METHICILLIN RESISTANT STAPH AUREUS... Complete 08/30/17 10:20 Urine,Clean Catch Urine Culture - Preliminary NO GROWTH Resulted 08/29/17 17:50 Rectum VRE Culture - Final NO VANCOMYCIN RESISTANT ENTEROCOCCUS ... Complete 08/29/17 17:50 Rectum - Final NO CARBAPENEM-RESISTANT ENTEROBACTERI... Complete Objective HEENT: Atraumatic and normocephalic. Pupils are equal, round, and reactive to light and accommodation. Scleral injection in both eyes. Dry mucosal membranes. NECK: JVP cannot be assessed due to positive inspiratory pressure of intubation on the ventilator. CVS: Normal S1, S2. Cannot appreciate any murmurs, gallops, or rubs. LUNGS: Clear to auscultation bilaterally. ABDOMEN: Soft, nontender, and nondistended. No hepatosplenomegaly. Positive bowel sounds. EXTREMITIES: No evidence of edema, clubbing, or cyanosis. Jorge Mcdonough MD Aug 31, 2017 18:44
[2017-08-31] MEDS: Norepinephrine Bitartrate 8 MG in D5W 500ml 492 ML IV SCH (20:00)
[2017-08-31] MEDS: Dyna-Hex 2% Top Sol 2oz TOPIC SCH (20:07)
[2017-09-01] VITALS (37 sets, daily range): BP systolic 90–134; BP diastolic 43–79
[2017-09-01] MEDS: Midazolam/D5W 100ml 100 ML IVPB PRN ×2 (01:51→08:03)
[2017-09-01] MEDS: Morphine Sulfate 4mg/ml Inj (IV USE ONLY) IVP PRN ×2 (04:29→18:53)
[2017-09-01 05:07] LABS: HEMATOCRIT 33.2 % (42.0-52.0); HEMOGLOBIN 11.7 G/DL (14.2-18.0); MEAN CORPUSCULAR VOLUME 92 FL (80-99); PLATELET COUNT 149 K/UL (150-450); RED CELL DISTRIBUTION WIDTH 11.5 % (11.6-14.8); WHITE BLOOD COUNT 17.2 K/UL (4.8-10.8)
[2017-09-01 05:15] LABS: PHOSPHORUS 4.8 MG/DL (2.5-4.9)
[2017-09-01 05:18] LABS: ALANINE AMINOTRANSFERASE 899 U/L (12-78); ALBUMIN 1.9 G/DL (3.4-5.0); ALBUMIN/GLOBULIN RATIO 0.6 (1.0-2.7); ALKALINE PHOSPHATASE 65 U/L (46-116); ANION GAP 9 mmol/L (5-15); ASPARTATE AMINO TRANSFERASE 1574 U/L (15-37); BILIRUBIN,TOTAL 1.9 MG/DL (0.2-1.0); BLOOD UREA NITROGEN 39 mg/dL (7-18); CALCIUM 7.3 MG/DL (8.5-10.1); CARBON DIOXIDE 27 MMOL/L (21-32); CHLORIDE 99 MMOL/L (98-107); POTASSIUM 4.6 MMOL/L (3.5-5.1); SODIUM 135 MMOL/L (136-145)
[2017-09-01 05:22] LABS: BILIRUBIN,DIRECT 0.4 MG/DL (0.0-0.3)
--- NOTE | 2017-09-01 06:39 | General Progress Note ---
Assessment/Plan Problem List: (1) Substance abuse ICD Codes: F19.10 - Other psychoactive substance abuse, uncomplicated SNOMED: 73562484 (2) Respiratory failure ICD Codes: J96.90 - Respiratory failure, unspecified, unspecified whether with hypoxia or hypercapnia SNOMED: 055068687 Qualifiers: Qualified Codes: J96.01 - Acute respiratory failure with hypoxia (3) Rhabdomyolysis ICD Codes: M62.82 - Rhabdomyolysis SNOMED: 510886474 Qualifiers: Qualified Codes: T79.6XXA - Traumatic ischemia of muscle, initial encounter (4) NSTEMI (non-ST elevated myocardial infarction) ICD Codes: I21.4 - Non-ST elevation (NSTEMI) myocardial infarction SNOMED: 408220681 (5) LUCRECIA (acute kidney injury) ICD Codes: N17.9 - Acute kidney failure, unspecified SNOMED: 45230061 Status: unchanged Assessment/Plan vent abx neuro psyc eval cbc bmp am Subjective Constitutional: Reports: weakness Allergies: Coded Allergies: UNABLE TO ASSESS (Unverified , 08/29/17) All Systems: reviewed and negative except above Subjective intub sedated ng in icu Objective Last 24 Hour Vital Signs Date Time Temp Pulse Resp B/P (MAP) Pulse Ox O2 Delivery O2 Flow Rate FiO2 09/01/17 06:00 21 09/01/17 06:00 21 09/01/17 05:30 91 23 115/66 (82) 100 09/01/17 05:00 87 23 127/66 (86) 100 09/01/17 05:00 17 09/01/17 05:00 17 09/01/17 04:40 87 24 40 09/01/17 04:30 88 23 134/64 (87) 100 09/01/17 04:00 65 09/01/17 04:00 136 09/01/17 04:00 23 09/01/17 04:00 23 09/01/17 04:00 99.0 91 23 105/63 (77) 100 99.0 09/01/17 04:00 Mechanical Ventilator 09/01/17 03:30 87 20 109/67 (81) 100 09/01/17 03:00 91 23 105/63 (77) 100 09/01/17 03:00 20 09/01/17 03:00 20 7/22/18 02:55 95 20 40 09/01/17 02:30 101.0 85 20 97/53 (68) 96 101.0 09/01/17 02:00 99 20 95/43 (60) 96 09/01/17 02:00 22 09/01/17 02:00 22 09/01/17 01:51 20 09/01/17 01:30 97 20 90/43 (59) 96 09/01/17 01:08 98 20 40 09/01/17 01:00 20 09/01/17 01:00 20 09/01/17 01:00 96 20 95/43 (60) 96 09/01/17 00:30 102.0 100 20 94/44 (61) 95 102.0 09/01/17 00:00 99 20 95/43 (60) 96 09/01/17 00:00 65 09/01/17 00:00 Mechanical Ventilator 09/01/17 00:00 99 09/01/17 00:00 21 09/01/17 00:00 20 08/31/17 23:30 97 20 92/41 (58) 97 08/31/17 23:00 20 08/31/17 23:00 20 08/31/17 23:00 97 20 93/41 (58) 97 08/31/17 22:59 96 20 40 08/31/17 22:30 97 20 91/46 (61) 95 08/31/17 22:00 97 20 94/51 (65) 95 08/31/17 22:00 20 08/31/17 22:00 20 08/31/17 22:00 20 08/31/17 21:30 96 21 99/51 (67) 93 18 21:06 95 20 40 18 21:00 19 08/31/17 21:00 20 08/31/17 21:00 20 08/31/17 21:00 93 20 93/43 (60) 93 18 20:41 20 18 20:30 96 20 86/47 (60) 95 18 20:00 65 18 20:00 18 18 20:00 20 08/31/17 20:00 92/41 08/31/17 20:00 19 08/31/17 20:00 101.0 95 19 88/52 (64) 93 101.0 08/31/17 20:00 86 08/31/17 20:00 Mechanical Ventilator 08/31/17 19:30 95 19 92/48 (63) 95 08/31/17 19:00 94 20 99/53 (68) 100 18 18:47 Mechanical Ventilator 55 18 18:45 97.7 92 24 106/66 (79) 97.7 08/31/17 18:35 95 20 55 08/31/17 18:00 18 08/31/17 17:16 88 24 65 08/31/17 17:00 90 26 103/55 (71) 100 08/31/17 17:00 20 08/31/17 16:36 97.7 08/31/17 16:06 99.0 08/31/17 16:00 101 08/31/17 16:00 99.2 91 26 125/63 (83) 100 99.2 08/31/17 16:00 18 08/31/17 16:00 18 08/31/17 16:00 Mechanical Ventilator 08/31/17 16:00 99.7 91 26 109/59 (76) 100 99.7 08/31/17 16:00 65 08/31/17 15:15 99.0 94 24 121/76 (91) 99.0 08/31/17 15:15 Mechanical Ventilator 55 08/31/17 15:05 97.0 08/31/17 15:00 99.1 96 26 121/76 (91) 100 99.1 08/31/17 15:00 24 08/31/17 15:00 24 08/31/17 14:37 97 29 65 08/31/17 14:35 24 08/31/17 14:00 98 26 112/66 (81) 100 08/31/17 14:00 30 08/31/17 14:00 30 08/31/17 13:00 20 08/31/17 13:00 6 08/31/17 13:00 96 25 113/71 (85) 97 08/31/17 13:00 98 28 65 08/31/17 12:00 95 25 122/66 (84) 97 08/31/17 12:00 93 08/31/17 12:00 20 08/31/17 12:00 23 08/31/17 12:00 65 08/31/17 12:00 Mechanical Ventilator 08/31/17 11:47 97.0 08/31/17 11:17 21 08/31/17 11:06 81 26 65 08/31/17 11:00 97.0 83 24 119/62 (81) 90 97.0 08/31/17 11:00 22 08/31/17 11:00 65 08/31/17 10:00 22 08/31/17 10:00 86 25 115/63 (80) 89 08/31/17 09:50 97.4 08/31/17 09:47 97.4 08/31/17 09:09 89 25 100 08/31/17 09:00 22 08/31/17 09:00 90 134/75 (94) 08/31/17 08:53 27 08/31/17 08:00 100 08/31/17 08:00 Mechanical Ventilator 08/31/17 08:00 109 08/31/17 08:00 90 25 124/66 (85) 89 08/31/17 07:10 93 34 100 08/31/17 07:00 100.0 92 25 122/61 (81) 91 100.0 08/31/17 07:00 20 Intake and Output 08/31/17 09/01/17 19:00 07:00 Intake Total 118 ml 1246.0 ml Output Total 2315 ml 270 ml Balance -2197 ml 976.0 ml IV Total 118 ml 1246.0 ml Output Urine Total 190 ml 270 ml Hemodialysis UF 2125 ml Laboratory Tests 08/31/17 09:30: Lactic Acid Level 2.90H 08/31/17 15:40: Lactic Acid Level 0.60 09/01/17 04:00: White Blood Count 17.2H, Red Blood Count 3.60L, Hemoglobin 11.7L, Hematocrit 33.2L, Mean Corpuscular Volume 92, Mean Corpuscular Hemoglobin 32.4H, Mean Corpuscular Hemoglobin Concent 35.1, Red Cell Distribution Width 11.5L, Platelet Count 149L, Mean Platelet Volume 7.2, Neutrophils (%) (Auto) , Lymphocytes (%) (Auto) , Monocytes (%) (Auto) , Eosinophils (%) (Auto) , Basophils (%) (Auto) , Neutrophils % (Manual) [Pending], Lymphocytes % (Manual) [Pending], Platelet Estimate [Pending], Platelet Morphology [Pending], Sodium Level 135L, Potassium Level 4.6, Chloride Level 99, Carbon Dioxide Level 27, Anion Gap 9, Blood Urea Nitrogen 39H, Creatinine 5.0H, Estimat Glomerular Filtration Rate 13.0, Glucose Level 110H, Calcium Level 7.3L, Phosphorus Level 4.8, Magnesium Level 2.0, Total Bilirubin 1.9H, Direct Bilirubin 0.4H, Aspartate Amino Transf (AST/SGOT) 1574H, Alanine Aminotransferase (ALT/SGPT) 899H, Alkaline Phosphatase 65, Total Protein 5.3L, Albumin 1.9L, Globulin 3.4, Albumin/Globulin Ratio 0.6L, Random Vancomycin Level 13.2 Height (Feet): 5 Height (Inches): 8.00 Weight (Pounds): 180 General Appearance: lethargic EENT: normal ENT inspection Neck: normal alignment Cardiovascular: normal peripheral pulses, normal rate, regular rhythm Respiratory/Chest: chest wall non-tender, lungs clear, normal breath sounds Abdomen: normal bowel sounds, non tender, soft Extremities: normal inspection Edema: no edema noted Arm (L), no edema noted Arm (R), no edema noted Leg (L), no edema noted Leg (R), no edema noted Pedal (L), no edema noted Pedal (R), no edema noted Generalized Neurologic: motor weakness Skin: normal pigmentation, warm/dry Reid Anaya DO Sep 01, 2017 06:39
[2017-09-01 07:02] LABS: ANION GAP 11 mmol/L (5-15); BLOOD UREA NITROGEN 39 mg/dL (7-18); CALCIUM 7.1 MG/DL (8.5-10.1); CARBON DIOXIDE 25 MMOL/L (21-32); CHLORIDE 99 MMOL/L (98-107); CREATININE 5.1 MG/DL (0.55-1.30); POTASSIUM 4.6 MMOL/L (3.5-5.1); SODIUM 135 MMOL/L (136-145)
[2017-09-01] MEDS ORDERED: Vancomycin 1.5 GM/D5W 250ML IVPB SCH (08:00)
[2017-09-01] MEDS: Piperacillin/Tazobactam 3.375 GM in NS 110 ML IVPB SCH ×2 (08:04→20:35)
[2017-09-01] MEDS: Heparin 5000 units/ml inj SUBQ SCH ×2 (08:39→20:38)
[2017-09-01] MEDS: Pantoprazole Inj IVP SCH ×2 (08:40→20:36)
[2017-09-01] MEDS: SODIUM BICARBONATE IV SCH ×2 (08:40→14:47)
[2017-09-01] MEDS: D5 IV SCH ×2 (08:40→14:47)
[2017-09-01] MEDS: [UNRECOGNIZED DRUG - OTHER] IV SCH ×2 (08:40→14:47)
--- NOTE | 2017-09-01 09:30 | General Progress Note ---
Assessment/Plan Problem List: (1) Rhabdomyolysis ICD Codes: M62.82 - Rhabdomyolysis SNOMED: 981096601 Qualifiers: Qualified Codes: T79.6XXA - Traumatic ischemia of muscle, initial encounter (2) Aspiration pneumonia ICD Codes: J69.0 - Pneumonitis due to inhalation of food and vomit SNOMED: 856433215 Qualifiers: Qualified Codes: J69.0 - Pneumonitis due to inhalation of food and vomit (3) Substance abuse ICD Codes: F19.10 - Other psychoactive substance abuse, uncomplicated SNOMED: 09443042 (4) Transaminitis ICD Codes: R74.0 - Nonspecific elevation of levels of transaminase and lactic acid dehydrogenase [LDH] SNOMED: 632016580, [id number] Assessment/Plan start NG fu labs supportive care Subjective ROS Limited/Unobtainable: No Allergies: Coded Allergies: UNABLE TO ASSESS (Unverified , 08/29/17) Objective Last 24 Hour Vital Signs Date Time Temp Pulse Resp B/P (MAP) Pulse Ox O2 Delivery O2 Flow Rate FiO2 09/01/17 09:20 20 09/01/17 08:03 22 09/01/17 06:37 81 26 40 09/01/17 06:30 91 23 124/63 (83) 100 09/01/17 06:00 21 09/01/17 06:00 21 09/01/17 06:00 98.4 91 23 115/66 (82) 100 98.4 09/01/17 05:30 91 23 115/66 (82) 100 09/01/17 05:00 87 23 127/66 (86) 100 09/01/17 05:00 17 09/01/17 05:00 17 09/01/17 04:40 87 24 40 09/01/17 04:30 88 23 134/64 (87) 100 09/01/17 04:00 65 09/01/17 04:00 136 09/01/17 04:00 23 09/01/17 04:00 23 09/01/17 04:00 99.0 91 23 105/63 (77) 100 99.0 09/01/17 04:00 Mechanical Ventilator 09/01/17 03:30 87 20 109/67 (81) 100 09/01/17 03:00 91 23 105/63 (77) 100 09/01/17 03:00 20 09/01/17 03:00 20 09/01/17 02:55 95 20 40 09/01/17 02:30 101.0 85 20 97/53 (68) 96 101.0 09/01/17 02:00 99 20 95/43 (60) 96 09/01/17 02:00 22 09/01/17 02:00 22 09/01/17 01:51 20 09/01/17 01:30 97 20 90/43 (59) 96 09/01/17 01:08 98 20 40 09/01/17 01:00 20 09/01/17 01:00 20 09/01/17 01:00 96 20 95/43 (60) 96 09/01/17 00:30 102.0 100 20 94/44 (61) 95 102.0 09/01/17 00:00 99 20 95/43 (60) 96 09/01/17 00:00 65 09/01/17 00:00 Mechanical Ventilator 09/01/17 00:00 99 09/01/17 00:00 21 09/01/17 00:00 20 08/31/17 23:30 97 20 92/41 (58) 97 08/31/17 23:00 20 08/31/17 23:00 20 08/31/17 23:00 97 20 93/41 (58) 97 08/31/17 22:59 96 20 40 08/31/17 22:30 97 20 91/46 (61) 95 08/31/17 22:00 97 20 94/51 (65) 95 08/31/17 22:00 20 08/31/17 22:00 20 08/31/17 22:00 20 08/31/17 21:30 96 21 99/51 (67) 93 08/31/17 21:06 95 20 40 08/31/17 21:00 19 08/31/17 21:00 20 08/31/17 21:00 20 08/31/17 21:00 93 20 93/43 (60) 93 18 20:41 20 08/31/17 20:30 96 20 86/47 (60) 95 18 20:00 65 08/31/17 20:00 18 08/31/17 20:00 20 08/31/17 20:00 92/41 08/31/17 20:00 19 08/31/17 20:00 101.0 95 19 88/52 (64) 93 101.0 08/31/17 20:00 86 08/31/17 20:00 Mechanical Ventilator 08/31/17 19:30 95 19 92/48 (63) 95 08/31/17 19:00 94 20 99/53 (68) 100 18 18:47 Mechanical Ventilator 55 08/31/17 18:45 97.7 92 24 106/66 (79) 97.7 08/31/17 18:35 95 20 55 08/31/17 18:00 18 08/31/17 17:16 88 24 65 08/31/17 17:00 90 26 103/55 (71) 100 08/31/17 17:00 20 08/31/17 16:36 97.7 08/31/17 16:06 99.0 08/31/17 16:00 101 08/31/17 16:00 99.2 91 26 125/63 (83) 100 99.2 08/31/17 16:00 18 08/31/17 16:00 18 08/31/17 16:00 Mechanical Ventilator 08/31/17 16:00 99.7 91 26 109/59 (76) 100 99.7 08/31/17 16:00 65 08/31/17 15:15 99.0 94 24 121/76 (91) 99.0 08/31/17 15:15 Mechanical Ventilator 55 08/31/17 15:05 97.0 08/31/17 15:00 99.1 96 26 121/76 (91) 100 99.1 08/31/17 15:00 24 08/31/17 15:00 24 08/31/17 14:37 97 29 65 08/31/17 14:35 24 08/31/17 14:00 98 26 112/66 (81) 100 08/31/17 14:00 30 08/31/17 14:00 30 08/31/17 13:00 20 08/31/17 13:00 6 08/31/17 13:00 96 25 113/71 (85) 97 08/31/17 13:00 98 28 65 08/31/17 12:00 95 25 122/66 (84) 97 7/21/18 12:00 93 08/31/17 12:00 20 08/31/17 12:00 23 08/31/17 12:00 65 08/31/17 12:00 Mechanical Ventilator 08/31/17 11:47 97.0 08/31/17 11:17 21 08/31/17 11:06 81 26 65 08/31/17 11:00 97.0 83 24 119/62 (81) 90 97.0 08/31/17 11:00 22 08/31/17 11:00 65 08/31/17 10:00 22 08/31/17 10:00 86 25 115/63 (80) 89 08/31/17 09:50 97.4 08/31/17 09:47 97.4 Intake and Output 08/31/17 09/01/17 19:00 07:00 Intake Total 118 ml 1246.0 ml Output Total 2315 ml 270 ml Balance -2197 ml 976.0 ml IV Total 118 ml 1246.0 ml Output Urine Total 190 ml 270 ml Hemodialysis UF 2125 ml Laboratory Tests 08/31/17 09:30: Lactic Acid Level 2.90H 08/31/17 15:40: Lactic Acid Level 0.60 09/01/17 04:00: White Blood Count 17.2H, Red Blood Count 3.60L, Hemoglobin 11.7L, Hematocrit 33.2L, Mean Corpuscular Volume 92, Mean Corpuscular Hemoglobin 32.4H, Mean Corpuscular Hemoglobin Concent 35.1, Red Cell Distribution Width 11.5L, Platelet Count 149L, Mean Platelet Volume 7.2, Neutrophils (%) (Auto) , Lymphocytes (%) (Auto) , Monocytes (%) (Auto) , Eosinophils (%) (Auto) , Basophils (%) (Auto) , Differential Total Cells Counted 100, Neutrophils % ( Manual) 75, Lymphocytes % (Manual) 8L, Monocytes % (Manual) 10, Eosinophils % ( Manual) 1, Basophils % (Manual) 0, Band Neutrophils 6, Platelet Estimate Adequate, Platelet Morphology Normal, Red Blood Cell Morphology Normal, Sodium Level 135L, Potassium Level 4.6, Chloride Level 99, Carbon Dioxide Level 27, Anion Gap 9, Blood Urea Nitrogen 39H, Creatinine 5.0H, Estimat Glomerular Filtration Rate 13.0, Glucose Level 110H, Calcium Level 7.3L, Phosphorus Level 4.8, Magnesium Level 2.0, Total Bilirubin 1.9H, Direct Bilirubin 0.4H, Aspartate Amino Transf (AST/SGOT) 1574H, Alanine Aminotransferase (ALT/SGPT) 899H, Alkaline Phosphatase 65, Total Protein 5.3L, Albumin 1.9L, Globulin 3.4, Albumin/Globulin Ratio 0.6L, Random Vancomycin Level 13.2 Height (Feet): 5 Height (Inches): 8.00 Weight (Pounds): 185 General Appearance: lethargic EENT: normal ENT inspection Neck: supple Cardiovascular: normal rate Respiratory/Chest: decreased breath sounds Abdomen: soft, hypoactive bowel sounds Extremities: non-tender Efrain Chavez MD Sep 01, 2017 09:30
--- NOTE | 2017-09-01 10:33 | Diagnostic Imaging Report ---
History: DYSPNEA Exam: XR CXR 1 VIEW Comparison: 08/29 and FINDINGS/IMPRESSION: Endotracheal and nasogastric tubes and right IJ line again noted. Interval resolution of bilateral perihilar ill-defined opacities with some decrease in the consolidation at the right lower lung. Some clearing of consolidation, opacity at the right upper lobe. Mild patchy opacity at the left base may represent atelectasis.
--- NOTE | 2017-09-01 12:14 | Pulmonolgy Critical Care Note ---
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, 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, 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0 09/01/17 06:37 81 26 40 09/01/17 06:30 91 23 124/63 (83) 100 09/01/17 06:00 21 09/01/17 06:00 21 09/01/17 06:00 98.4 91 23 115/66 (82) 100 98.4 09/01/17 05:30 91 23 115/66 (82) 100 09/01/17 05:00 87 23 127/66 (86) 100 09/01/17 05:00 17 09/01/17 05:00 17 09/01/17 04:40 87 24 40 09/01/17 04:30 88 23 134/64 (87) 100 09/01/17 04:00 65 09/01/17 04:00 136 09/01/17 04:00 23 09/01/17 04:00 23 09/01/17 04:00 99.0 91 23 105/63 (77) 100 99.0 09/01/17 04:00 Mechanical Ventilator 09/01/17 03:30 87 20 109/67 (81) 100 09/01/17 03:00 91 23 105/63 (77) 100 09/01/17 03:00 20 09/01/17 03:00 20 09/01/17 02:55 95 20 40 09/01/17 02:30 101.0 85 20 97/53 (68) 96 101.0 09/01/17 02:00 99 20 95/43 (60) 96 09/01/17 02:00 22 09/01/17 02:00 22 09/01/17 01:51 20 09/01/17 01:30 97 20 90/43 (59) 96 09/01/17 01:08 98 20 40 09/01/17 01:00 20 09/01/17 01:00 20 09/01/17 01:00 96 20 95/43 (60) 96 09/01/17 00:30 102.0 100 20 94/44 (61) 95 102.0 09/01/17 00:00 99 20 95/43 (60) 96 09/01/17 00:00 65 09/01/17 00:00 Mechanical Ventilator 09/01/17 00:00 99 09/01/17 00:00 21 09/01/17 00:00 20 08/31/17 23:30 97 20 92/41 (58) 97 18 23:00 20 08/31/17 23:00 20 08/31/17 23:00 97 20 93/41 (58) 97 18 22:59 96 20 40 08/31/17 22:30 97 20 91/46 (61) 95 08/31/17 22:00 97 20 94/51 (65) 95 08/31/17 22:00 20 08/31/17 22:00 20 08/31/17 22:00 20 08/31/17 21:30 96 21 99/51 (67) 93 08/31/17 21:06 95 20 40 08/31/17 21:00 19 18 21:00 20 08/31/17 21:00 20 08/31/17 21:00 93 20 93/43 (60) 93 08/31/17 20:41 20 18 20:30 96 20 86/47 (60) 95 18 20:00 65 18 20:00 18 08/31/17 20:00 20 08/31/17 20:00 92/41 08/31/17 20:00 19 08/31/17 20:00 101.0 95 19 88/52 (64) 93 101.0 08/31/17 20:00 86 08/31/17 20:00 Mechanical Ventilator 08/31/17 19:30 95 19 92/48 (63) 95 08/31/17 19:00 94 20 99/53 (68) 100 08/31/17 18:47 Mechanical Ventilator 55 08/31/17 18:45 97.7 92 24 106/66 (79) 97.7 08/31/17 18:35 95 20 55 08/31/17 18:00 18 08/31/17 17:16 88 24 65 08/31/17 17:00 90 26 103/55 (71) 100 08/31/17 17:00 20 08/31/17 16:36 97.7 08/31/17 16:06 99.0 08/31/17 16:00 101 08/31/17 16:00 99.2 91 26 125/63 (83) 100 99.2 08/31/17 16:00 18 08/31/17 16:00 18 08/31/17 16:00 Mechanical Ventilator 08/31/17 16:00 99.7 91 26 109/59 (76) 100 99.7 08/31/17 16:00 65 08/31/17 15:15 99.0 94 24 121/76 (91) 99.0 08/31/17 15:15 Mechanical Ventilator 55 08/31/17 15:00 99.1 96 26 121/76 (91) 100 99.1 08/31/17 15:00 24 18 15:00 24 18 14:37 97 29 65 18 14:35 24 08/31/17 14:00 98 26 112/66 (81) 100 08/31/17 14:00 30 08/31/17 14:00 30 08/31/17 13:00 20 08/31/17 13:00 6 08/31/17 13:00 96 25 113/71 (85) 97 08/31/17 13:00 98 28 65 Status: awake Condition: critical HEENT: atraumatic Heart: HR/BP stable, regular Abdomen: feeding tube Extremities: no C/C/E Micro: Microbiology Date/Time Source Procedure Growth Status 08/29/17 12:45 Blood Blood Culture - Preliminary NO GROWTH AFTER 48 HOURS Resulted 08/29/17 12:35 Blood Blood Culture - Preliminary NO GROWTH AFTER 48 HOURS Resulted 08/30/17 17:00 Sputum Induced Gram Stain - Final Resulted 08/30/17 17:00 Sputum Induced Sputum Culture - Preliminary NO GROWTH Resulted 08/29/17 17:50 Nasal Nares MRSA Culture - Final NO METHICILLIN RESISTANT STAPH AUREUS... Complete 08/30/17 10:20 Urine,Clean Catch Urine Culture - Preliminary NO GROWTH AFTER 24 HOURS Resulted 08/29/17 17:50 Rectum VRE Culture - Final NO VANCOMYCIN RESISTANT ENTEROCOCCUS ... Complete 08/29/17 17:50 Rectum - Final NO CARBAPENEM-RESISTANT ENTEROBACTERI... Complete Accucheck: 96 Critical Care - Subjective ROS Limited/Unobtainable: Yes Condition: critical FI02: 40 Vent Support Breath Rate: 20 Vent Support Mode: AC Vent Tidal Volume: 650 Sputum Amount: Large PEEP: 5.0 PIP: 38 I&O: Intake and Output 08/31/17 09/01/17 19:00 07:00 Intake Total 118 ml 1246.0 ml Output Total 2315 ml 290 ml Balance -2197 ml 956.0 ml IV Total 118 ml 1246.0 ml Output Urine Total 190 ml 290 ml Hemodialysis UF 2125 ml CXR: much better ET-Tube: 7.5 ET Position: 23 Labs: Laboratory Tests Test 08/31/17 15:40 09/01/17 04:00 Lactic Acid Level 0.60 mmol/L (0.4-2.0) White Blood Count 17.2 K/UL (4.8-10.8) H Red Blood Count 3.60 M/UL (4.70-6.10) L Hemoglobin 11.7 G/DL (14.2-18.0) L Hematocrit 33.2 % (42.0-52.0) L Mean Corpuscular Volume 92 FL (80-99) Mean Corpuscular Hemoglobin 32.4 PG (27.0-31.0) H Mean Corpuscular Hemoglobin Concent 35.1 G/DL (32.0-36.0) Red Cell Distribution Width 11.5 % (11.6-14.8) L Platelet Count 149 K/UL (150-450) L Mean Platelet Volume 7.2 FL (6.5-10.1) Neutrophils (%) (Auto) % (45.0-75.0) Lymphocytes (%) (Auto) % (20.0-45.0) Monocytes (%) (Auto) % (1.0-10.0) Eosinophils (%) (Auto) % (0.0-3.0) Basophils (%) (Auto) % (0.0-2.0) Differential Total Cells Counted 100 Neutrophils % (Manual) 75 % (45-75) Lymphocytes % (Manual) 8 % (20-45) L Monocytes % (Manual) 10 % (1-10) Eosinophils % (Manual) 1 % (0-3) Basophils % (Manual) 0 % (0-2) Band Neutrophils 6 % (0-8) Platelet Estimate Adequate Platelet Morphology Normal Red Blood Cell Morphology Normal Sodium Level 135 MMOL/L (136-145) L Potassium Level 4.6 MMOL/L (3.5-5.1) Chloride Level 99 MMOL/L (98-107) Carbon Dioxide Level 27 MMOL/L (21-32) Anion Gap 9 mmol/L (5-15) Blood Urea Nitrogen 39 mg/dL (7-18) H Creatinine 5.0 MG/DL (0.55-1.30) H Estimat Glomerular Filtration Rate 13.0 mL/min (>60) Glucose Level 110 MG/DL (74-106) H Calcium Level 7.3 MG/DL (8.5-10.1) L Phosphorus Level 4.8 MG/DL (2.5-4.9) Magnesium Level 2.0 MG/DL (1.8-2.4) Total Bilirubin 1.9 MG/DL (0.2-1.0) H Direct Bilirubin 0.4 MG/DL (0.0-0.3) H Aspartate Amino Transf (AST/SGOT) 1574 U/L (15-37) H Alanine Aminotransferase (ALT/SGPT) 899 U/L (12-78) H Alkaline Phosphatase 65 U/L (46-116) Total Protein 5.3 G/DL (6.4-8.2) L Albumin 1.9 G/DL (3.4-5.0) L Globulin 3.4 g/dL Albumin/Globulin Ratio 0.6 (1.0-2.7) L Random Vancomycin Level 13.2 ug/mL Arpita Andre MD Sep 01, 2017 12:14
--- NOTE | 2017-09-01 15:33 | Nephrology Progress Note ---
Assessment/Plan Assessment 1. Acute rhabdomyolysis. 2. Hypocalcemia. 3. Hyperkalemia. 4. Lactic acidosis. 5. Shock liver. 6. History of multiple drug use. Plan continue bicarbonate drip daily dialysis monitoring renal function decrease ivf monitoring out put Subjective HEENT: Reports: no symptoms Genitourinary: Reports: no symptoms Neurologic/Psychiatric: Reports: no symptoms Subjective intubated had dialysis yesterday continue to have low urine out put Objective Objective Last 24 Hour Vital Signs Date Time Temp Pulse Resp B/P (MAP) Pulse Ox O2 Delivery O2 Flow Rate FiO2 09/01/17 14:00 80 20 119/59 (79) 100 09/01/17 13:00 98.8 79 20 117/65 (82) 100 98.8 09/01/17 12:44 80 20 40 09/01/17 12:30 Mechanical Ventilator 15.0 40 09/01/17 12:00 Mechanical Ventilator 09/01/17 12:00 80 20 115/68 (84) 100 09/01/17 12:00 77 09/01/17 12:00 22 09/01/17 12:00 40 09/01/17 11:00 22 09/01/17 11:00 77 20 110/65 (80) 100 09/01/17 10:39 74 20 40 09/01/17 10:00 76 20 108/65 (79) 100 09/01/17 10:00 20 09/01/17 09:30 78 20 119/61 (80) 100 09/01/17 09:20 20 09/01/17 09:19 77 20 40 09/01/17 09:00 80 23 115/66 (82) 100 09/01/17 09:00 20 09/01/17 08:33 98.0 09/01/17 08:33 98.0 09/01/17 08:03 22 09/01/17 08:00 40 09/01/17 08:00 82 09/01/17 08:00 83 23 122/66 (84) 100 09/01/17 08:00 Mechanical Ventilator 09/01/17 07:00 98.0 83 20 120/65 (83) 100 98.0 09/01/17 07:00 20 09/01/17 06:37 81 26 40 09/01/17 06:30 91 23 124/63 (83) 100 09/01/17 06:00 21 09/01/17 06:00 21 09/01/17 06:00 98.4 91 23 115/66 (82) 100 98.4 09/01/17 05:30 91 23 115/66 (82) 100 09/01/17 05:00 87 23 127/66 (86) 100 09/01/17 05:00 17 09/01/17 05:00 17 09/01/17 04:40 87 24 40 09/01/17 04:30 88 23 134/64 (87) 100 09/01/17 04:00 65 09/01/17 04:00 136 09/01/17 04:00 23 09/01/17 04:00 23 09/01/17 04:00 99.0 91 23 105/63 (77) 100 99.0 09/01/17 04:00 Mechanical Ventilator 09/01/17 03:30 87 20 109/67 (81) 100 09/01/17 03:00 91 23 105/63 (77) 100 09/01/17 03:00 20 09/01/17 03:00 20 09/01/17 02:55 95 20 40 09/01/17 02:30 101.0 85 20 97/53 (68) 96 101.0 09/01/17 02:00 99 20 95/43 (60) 96 09/01/17 02:00 22 09/01/17 02:00 22 09/01/17 01:51 20 09/01/17 01:30 97 20 90/43 (59) 96 09/01/17 01:08 98 20 40 09/01/17 01:00 20 09/01/17 01:00 20 09/01/17 01:00 96 20 95/43 (60) 96 09/01/17 00:30 102.0 100 20 94/44 (61) 95 102.0 09/01/17 00:00 99 20 95/43 (60) 96 09/01/17 00:00 65 09/01/17 00:00 Mechanical Ventilator 09/01/17 00:00 99 09/01/17 00:00 21 09/01/17 00:00 20 08/31/17 23:30 97 20 92/41 (58) 97 08/31/17 23:00 20 08/31/17 23:00 20 08/31/17 23:00 97 20 93/41 (58) 97 18 22:59 96 20 40 08/31/17 22:30 97 20 91/46 (61) 95 08/31/17 22:00 97 20 94/51 (65) 95 18 22:00 20 08/31/17 22:00 20 18 22:00 20 08/31/17 21:30 96 21 99/51 (67) 93 08/31/17 21:06 95 20 40 08/31/17 21:00 19 08/31/17 21:00 20 08/31/17 21:00 20 08/31/17 21:00 93 20 93/43 (60) 93 08/31/17 20:41 20 08/31/17 20:30 96 20 86/47 (60) 95 08/31/17 20:00 65 08/31/17 20:00 18 08/31/17 20:00 20 08/31/17 20:00 92/41 08/31/17 20:00 19 08/31/17 20:00 101.0 95 19 88/52 (64) 93 101.0 08/31/17 20:00 86 08/31/17 20:00 Mechanical Ventilator 08/31/17 19:30 95 19 92/48 (63) 95 08/31/17 19:00 94 20 99/53 (68) 100 08/31/17 18:47 Mechanical Ventilator 55 08/31/17 18:45 97.7 92 24 106/66 (79) 97.7 08/31/17 18:35 95 20 55 08/31/17 18:00 18 08/31/17 17:16 88 24 65 08/31/17 17:00 90 26 103/55 (71) 100 08/31/17 17:00 20 08/31/17 16:36 97.7 08/31/17 16:06 99.0 08/31/17 16:00 101 08/31/17 16:00 99.2 91 26 125/63 (83) 100 99.2 08/31/17 16:00 18 08/31/17 16:00 18 08/31/17 16:00 Mechanical Ventilator 08/31/17 16:00 99.7 91 26 109/59 (76) 100 99.7 08/31/17 16:00 65 Intake and Output 08/31/17 09/01/17 19:00 07:00 Intake Total 118 ml 1256.0 ml Output Total 2315 ml 290 ml Balance -2197 ml 966.0 ml IV Total 118 ml 1256.0 ml Output Urine Total 190 ml 290 ml Hemodialysis UF 2125 ml Laboratory Tests 08/31/17 15:40: Lactic Acid Level 0.60 09/01/17 04:00: White Blood Count 17.2H, Red Blood Count 3.60L, Hemoglobin 11.7L, Hematocrit 33.2L, Mean Corpuscular Volume 92, Mean Corpuscular Hemoglobin 32.4H, Mean Corpuscular Hemoglobin Concent 35.1, Red Cell Distribution Width 11.5L, Platelet Count 149L, Mean Platelet Volume 7.2, Neutrophils (%) (Auto) , Lymphocytes (%) (Auto) , Monocytes (%) (Auto) , Eosinophils (%) (Auto) , Basophils (%) (Auto) , Differential Total Cells Counted 100, Neutrophils % ( Manual) 75, Lymphocytes % (Manual) 8L, Monocytes % (Manual) 10, Eosinophils % ( Manual) 1, Basophils % (Manual) 0, Band Neutrophils 6, Platelet Estimate Adequate, Platelet Morphology Normal, Red Blood Cell Morphology Normal, Sodium Level 135L, Potassium Level 4.6, Chloride Level 99, Carbon Dioxide Level 27, Anion Gap 9, Blood Urea Nitrogen 39H, Creatinine 5.0H, Estimat Glomerular Filtration Rate 13.0, Glucose Level 110H, Calcium Level 7.3L, Phosphorus Level 4.8, Magnesium Level 2.0, Total Bilirubin 1.9H, Direct Bilirubin 0.4H, Aspartate Amino Transf (AST/SGOT) 1574H, Alanine Aminotransferase (ALT/SGPT) 899H, Alkaline Phosphatase 65, Total Protein 5.3L, Albumin 1.9L, Globulin 3.4, Albumin/Globulin Ratio 0.6L, Random Vancomycin Level 13.2 Height (Feet): 5 Height (Inches): 8.00 Weight (Pounds): 185 Objective HEAD AND NECK: No JVP. No LAD. G-tube is in place. Head is atraumatic and normocephalic. LUNGS: He has decreased breathing sounds on the both sides. CARDIAC: Regular rate and rhythm. S1 and S2. No murmur. No rub. ABDOMEN: Soft. Bowel sounds positive. EXTREMITIES: No edema. No clubbing. No cyanosis. Aixa Veloz MD Sep 01, 2017 15:33
[2017-09-01] MEDS: Dyna-Hex 2% Top Sol 2oz TOPIC SCH (19:54)
[2017-09-01] MEDS: Haloperidol Lactate 5 MG in D5W 55 ML IVPB PRN ×2 (20:22→22:22)
--- NOTE | 2017-09-01 23:42 | Cardiology Progress Note ---
Assessment/Plan Assessment/Plan 1. Sinus tachycardia, resolved likely due to SIRS, increased adrenergic flow in response to cocaine and amphetamine abuse. Continue hydration. Repeat 12 lead ECG to check QT interval. 2. LUCRECIA due to rhabdomyolysis. 3. Shock liver 4. Acute pancreatitis with systemic inflammatory response disease. 5. Elevated troponin I level likely myocarditis, sepsis, or due to shock. Subjective Subjective Sinus rhythm at 83. Intubated on the ventilator. Objective Last 24 Hour Vital Signs Date Time Temp Pulse Resp B/P (MAP) Pulse Ox O2 Delivery O2 Flow Rate FiO2 09/01/17 22:53 83 20 40 09/01/17 22:00 83 20 119/55 (76) 100 09/01/17 22:00 20 09/01/17 21:30 85 20 113/58 (76) 100 09/01/17 21:04 88 20 40 09/01/17 21:00 85 20 104/51 (68) 100 09/01/17 21:00 20 09/01/17 20:30 78 20 113/62 (79) 100 09/01/17 20:00 Mechanical Ventilator 09/01/17 20:00 20 09/01/17 20:00 40 09/01/17 20:00 98.6 81 20 120/66 (84) 100 98.6 09/01/17 19:30 84 20 127/74 (91) 99 09/01/17 19:23 98.6 09/01/17 19:00 89 20 40 09/01/17 19:00 88 26 134/79 (97) 97 09/01/17 19:00 22 09/01/17 18:00 98.6 87 21 132/77 (95) 100 98.6 09/01/17 18:00 22 09/01/17 17:00 18 09/01/17 17:00 99.6 61 21 112/49 (70) 100 99.6 09/01/17 16:45 84 20 40 09/01/17 16:23 Mechanical Ventilator 15.0 40 09/01/17 16:00 Mechanical Ventilator 09/01/17 16:00 89 21 119/64 (82) 100 09/01/17 16:00 84 09/01/17 16:00 40 09/01/17 15:00 84 20 119/64 (82) 100 09/01/17 14:57 85 20 40 09/01/17 14:00 80 20 119/59 (79) 100 09/01/17 13:00 98.8 79 20 117/65 (82) 100 98.8 09/01/17 12:44 80 20 40 09/01/17 12:30 Mechanical Ventilator 15.0 40 09/01/17 12:00 Mechanical Ventilator 09/01/17 12:00 80 20 115/68 (84) 100 09/01/17 12:00 77 09/01/17 12:00 22 09/01/17 12:00 40 09/01/17 11:00 22 09/01/17 11:00 77 20 110/65 (80) 100 09/01/17 10:39 74 20 40 09/01/17 10:00 76 20 108/65 (79) 100 09/01/17 10:00 20 09/01/17 09:30 78 20 119/61 (80) 100 09/01/17 09:20 20 09/01/17 09:19 77 20 40 09/01/17 09:00 80 23 115/66 (82) 100 09/01/17 09:00 20 09/01/17 08:33 98.0 09/01/17 08:33 98.0 09/01/17 08:03 22 09/01/17 08:00 40 09/01/17 08:00 20 09/01/17 08:00 82 09/01/17 08:00 83 23 122/66 (84) 100 09/01/17 08:00 Mechanical Ventilator 09/01/17 07:00 98.0 83 20 120/65 (83) 100 98.0 09/01/17 07:00 20 09/01/17 07:00 20 09/01/17 06:37 81 26 40 09/01/17 06:30 91 23 124/63 (83) 100 09/01/17 06:00 21 09/01/17 06:00 21 09/01/17 06:00 98.4 91 23 115/66 (82) 100 98.4 09/01/17 05:30 91 23 115/66 (82) 100 09/01/17 05:00 87 23 127/66 (86) 100 09/01/17 05:00 17 09/01/17 05:00 17 7/22/18 04:40 87 24 40 09/01/17 04:30 88 23 134/64 (87) 100 09/01/17 04:00 65 09/01/17 04:00 136 09/01/17 04:00 23 09/01/17 04:00 23 09/01/17 04:00 99.0 91 23 105/63 (77) 100 99.0 09/01/17 04:00 Mechanical Ventilator 09/01/17 03:30 87 20 109/67 (81) 100 09/01/17 03:00 91 23 105/63 (77) 100 09/01/17 03:00 20 09/01/17 03:00 20 09/01/17 02:55 95 20 40 09/01/17 02:30 101.0 85 20 97/53 (68) 96 101.0 09/01/17 02:00 99 20 95/43 (60) 96 09/01/17 02:00 22 09/01/17 02:00 22 09/01/17 01:51 20 09/01/17 01:30 97 20 90/43 (59) 96 09/01/17 01:08 98 20 40 09/01/17 01:00 20 09/01/17 01:00 20 09/01/17 01:00 96 20 95/43 (60) 96 09/01/17 00:30 102.0 100 20 94/44 (61) 95 102.0 09/01/17 00:00 99 20 95/43 (60) 96 09/01/17 00:00 65 09/01/17 00:00 Mechanical Ventilator 09/01/17 00:00 99 09/01/17 00:00 21 09/01/17 00:00 20 Intake and Output 08/31/17 09/01/17 19:00 07:00 Intake Total 118 ml 1332.0 ml Output Total 2315 ml 290 ml Balance -2197 ml 1042.0 ml IV Total 118 ml 1332.0 ml Output Urine Total 190 ml 290 ml Hemodialysis UF 2125 ml 2D Echo: LVEF 55-60% Laboratory Tests Test 09/01/17 04:00 White Blood Count 17.2 K/UL (4.8-10.8) H Red Blood Count 3.60 M/UL (4.70-6.10) L Hemoglobin 11.7 G/DL (14.2-18.0) L Hematocrit 33.2 % (42.0-52.0) L Mean Corpuscular Volume 92 FL (80-99) Mean Corpuscular Hemoglobin 32.4 PG (27.0-31.0) H Mean Corpuscular Hemoglobin Concent 35.1 G/DL (32.0-36.0) Red Cell Distribution Width 11.5 % (11.6-14.8) L Platelet Count 149 K/UL (150-450) L Mean Platelet Volume 7.2 FL (6.5-10.1) Neutrophils (%) (Auto) % (45.0-75.0) Lymphocytes (%) (Auto) % (20.0-45.0) Monocytes (%) (Auto) % (1.0-10.0) Eosinophils (%) (Auto) % (0.0-3.0) Basophils (%) (Auto) % (0.0-2.0) Differential Total Cells Counted 100 Neutrophils % (Manual) 75 % (45-75) Lymphocytes % (Manual) 8 % (20-45) L Monocytes % (Manual) 10 % (1-10) Eosinophils % (Manual) 1 % (0-3) Basophils % (Manual) 0 % (0-2) Band Neutrophils 6 % (0-8) Platelet Estimate Adequate Platelet Morphology Normal Red Blood Cell Morphology Normal Sodium Level 135 MMOL/L (136-145) L Potassium Level 4.6 MMOL/L (3.5-5.1) Chloride Level 99 MMOL/L (98-107) Carbon Dioxide Level 27 MMOL/L (21-32) Anion Gap 9 mmol/L (5-15) Blood Urea Nitrogen 39 mg/dL (7-18) H Creatinine 5.0 MG/DL (0.55-1.30) H Estimat Glomerular Filtration Rate 13.0 mL/min (>60) Glucose Level 110 MG/DL (74-106) H Calcium Level 7.3 MG/DL (8.5-10.1) L Phosphorus Level 4.8 MG/DL (2.5-4.9) Magnesium Level 2.0 MG/DL (1.8-2.4) Total Bilirubin 1.9 MG/DL (0.2-1.0) H Direct Bilirubin 0.4 MG/DL (0.0-0.3) H Aspartate Amino Transf (AST/SGOT) 1574 U/L (15-37) H Alanine Aminotransferase (ALT/SGPT) 899 U/L (12-78) H Alkaline Phosphatase 65 U/L (46-116) Total Protein 5.3 G/DL (6.4-8.2) L Albumin 1.9 G/DL (3.4-5.0) L Globulin 3.4 g/dL Albumin/Globulin Ratio 0.6 (1.0-2.7) L Random Vancomycin Level 13.2 ug/mL Microbiology Date/Time Source Procedure Growth Status 08/30/17 17:00 Sputum Induced Gram Stain - Final Resulted 08/30/17 17:00 Sputum Induced Sputum Culture - Preliminary NO GROWTH Resulted 08/30/17 10:20 Urine,Clean Catch Urine Culture - Preliminary NO GROWTH AFTER 24 HOURS Resulted Objective HEENT: Atraumatic and normocephalic. Pupils are equal, round, and reactive to light and accommodation. Scleral injection in both eyes. Dry mucosal membranes. NECK: JVP cannot be assessed due to positive inspiratory pressure of intubation on the ventilator. CVS: Normal S1, S2. Cannot appreciate any murmurs, gallops, or rubs. LUNGS: Clear to auscultation bilaterally. ABDOMEN: Soft, nontender, and nondistended. No hepatosplenomegaly. Positive bowel sounds. EXTREMITIES: No evidence of edema, clubbing, or cyanosis. Jorge Mcdonough MD Sep 01, 2017 23:42
[2017-09-02] VITALS (36 sets, daily range): BP systolic 115–160; BP diastolic 50–90
[2017-09-02] MEDS: Haloperidol Lactate 5 MG in D5W 55 ML IVPB PRN ×3 (03:56→18:53)
[2017-09-02 06:08] LABS: BASOPHILS % (AUTO) 0.4 % (0.0-2.0); EOSINOPHILS % (AUTO) 2.6 % (0.0-3.0); HEMOGLOBIN 10.9 G/DL (14.2-18.0); LYMPHOCYTES % (AUTO) 8.4 % (20.0-45.0); MEAN CORPUSCULAR VOLUME 92 FL (80-99); MONOCYTES % (AUTO) 6.9 % (1.0-10.0); NEUTROPHILS % (AUTO) 81.7 % (45.0-75.0); PLATELET COUNT 164 K/UL (150-450); RED BLOOD COUNT 3.49 M/UL (4.70-6.10); RED CELL DISTRIBUTION WIDTH 11.7 % (11.6-14.8)
[2017-09-02 06:28] LABS: PHOSPHORUS 4.2 MG/DL (2.5-4.9)
[2017-09-02 06:38] LABS: ALANINE AMINOTRANSFERASE 772 U/L (12-78); ALBUMIN 1.8 G/DL (3.4-5.0); ALBUMIN/GLOBULIN RATIO 0.5 (1.0-2.7); ALKALINE PHOSPHATASE 175 U/L (46-116); ANION GAP 10 mmol/L (5-15); ASPARTATE AMINO TRANSFERASE 1123 U/L (15-37); BILIRUBIN,TOTAL 1.2 MG/DL (0.2-1.0); BLOOD UREA NITROGEN 46 mg/dL (7-18); CALCIUM 7.6 MG/DL (8.5-10.1); CARBON DIOXIDE 26 MMOL/L (21-32); CHLORIDE 99 MMOL/L (98-107); CREATININE 5.6 MG/DL (0.55-1.30); POTASSIUM 3.6 MMOL/L (3.5-5.1); SODIUM 135 MMOL/L (136-145)
[2017-09-02 06:49] LABS: BILIRUBIN,DIRECT 0.4 MG/DL (0.0-0.3)
[2017-09-02] MEDS: Pantoprazole Inj IVP SCH ×2 (08:53→21:04)
[2017-09-02] MEDS: Morphine Sulfate 4mg/ml Inj (IV USE ONLY) IVP PRN (08:53)
[2017-09-02] MEDS: Heparin 5000 units/ml inj SUBQ SCH ×2 (08:54→21:05)
--- NOTE | 2017-09-02 08:57 | Nephrology Progress Note ---
Assessment/Plan Assessment 1. Acute rhabdomyolysis.(anuric ) 2. Hypocalcemia. 3. Hyperkalemia. 4. Lactic acidosis. 5. Shock liver. 6. History of multiple drug use. Plan continue bicarbonate drip dialysis based on blood est monitoring renal function decrease ivf monitoring out put Subjective Constitutional: Reports: no symptoms HEENT: Reports: no symptoms Genitourinary: Reports: no symptoms Neurologic/Psychiatric: Reports: no symptoms Subjective intubated had dialysis yesterday removed 2.5 L continue to have low urine out put Objective Objective Last 24 Hour Vital Signs Date Time Temp Pulse Resp B/P (MAP) Pulse Ox O2 Delivery O2 Flow Rate FiO2 09/02/17 07:40 89 16 40 09/02/17 07:00 21 09/02/17 07:00 98 21 152/84 (106) 100 09/02/17 06:44 93 22 40 09/02/17 06:30 98 21 154/88 (110) 99 09/02/17 06:00 95 20 141/78 (99) 98 09/02/17 06:00 20 09/02/17 05:30 26 09/02/17 05:30 100 21 142/77 (98) 97 09/02/17 05:00 23 09/02/17 05:00 93 20 144/79 (100) 100 09/02/17 04:57 92 20 40 09/02/17 04:30 90 20 126/72 (90) 98 09/02/17 04:01 89 09/02/17 04:00 Mechanical Ventilator 09/02/17 04:00 20 09/02/17 04:00 99.8 90 20 137/67 (90) 99 99.8 09/02/17 04:00 40 09/02/17 03:30 89 20 139/73 (95) 98 09/02/17 03:21 89 20 40 09/02/17 03:00 20 09/02/17 03:00 88 20 125/67 (86) 100 09/02/17 02:30 84 20 115/50 (71) 100 09/02/17 02:00 20 09/02/17 02:00 87 20 125/67 (86) 100 09/02/17 01:30 85 20 115/59 (77) 100 09/02/17 01:05 80 20 40 09/02/17 01:00 86 20 119/64 (82) 100 09/02/17 01:00 20 09/02/17 00:30 84 20 123/65 (84) 100 09/02/17 00:01 84 09/02/17 00:00 20 09/02/17 00:00 99.1 79 20 123/65 (84) 100 99.1 09/02/17 00:00 Mechanical Ventilator 09/01/17 23:30 81 20 109/59 (76) 100 09/01/17 23:00 20 09/01/17 23:00 81 20 113/60 (77) 100 09/01/17 22:53 83 20 40 09/01/17 22:30 83 20 120/59 (79) 100 09/01/17 22:00 83 20 119/55 (76) 100 09/01/17 22:00 20 09/01/17 21:30 85 20 113/58 (76) 100 09/01/17 21:04 88 20 40 09/01/17 21:00 85 20 104/51 (68) 100 09/01/17 21:00 20 09/01/17 20:30 78 20 113/62 (79) 100 09/01/17 20:00 Mechanical Ventilator 09/01/17 20:00 79 09/01/17 20:00 20 09/01/17 20:00 40 09/01/17 20:00 98.6 81 20 120/66 (84) 100 98.6 09/01/17 19:30 84 20 127/74 (91) 99 09/01/17 19:23 98.6 09/01/17 19:00 89 20 40 09/01/17 19:00 88 26 134/79 (97) 97 09/01/17 19:00 22 09/01/17 18:00 98.6 87 21 132/77 (95) 100 98.6 09/01/17 18:00 22 09/01/17 17:00 18 09/01/17 17:00 99.6 61 21 112/49 (70) 100 99.6 09/01/17 16:45 84 20 40 09/01/17 16:23 Mechanical Ventilator 15.0 40 09/01/17 16:00 Mechanical Ventilator 09/01/17 16:00 89 21 119/64 (82) 100 09/01/17 16:00 84 09/01/17 16:00 40 09/01/17 15:00 84 20 119/64 (82) 100 09/01/17 14:57 85 20 40 09/01/17 14:00 80 20 119/59 (79) 100 09/01/17 13:00 98.8 79 20 117/65 (82) 100 98.8 09/01/17 12:44 80 20 40 09/01/17 12:30 Mechanical Ventilator 15.0 40 09/01/17 12:00 Mechanical Ventilator 09/01/17 12:00 80 20 115/68 (84) 100 09/01/17 12:00 77 09/01/17 12:00 22 09/01/17 12:00 40 09/01/17 11:00 22 09/01/17 11:00 77 20 110/65 (80) 100 09/01/17 10:39 74 20 40 09/01/17 10:00 76 20 108/65 (79) 100 09/01/17 10:00 20 09/01/17 09:30 78 20 119/61 (80) 100 09/01/17 09:20 20 09/01/17 09:19 77 20 40 09/01/17 09:00 80 23 115/66 (82) 100 09/01/17 09:00 20 Intake and Output 09/01/17 09/02/17 19:00 07:00 Intake Total 796.0 ml 1424.5 ml Output Total 2545 ml 20 ml Balance -1749.0 ml 1404.5 ml IV Total 612.0 ml 1002.5 ml Tube Feeding 184 ml 422 ml Output Urine Total 45 ml 20 ml Hemodialysis UF 2500 ml # Bowel Movements 1 2 Laboratory Tests 09/02/17 04:25: White Blood Count 13.0H, Red Blood Count 3.49L, Hemoglobin 10.9L, Hematocrit 32.0L, Mean Corpuscular Volume 92, Mean Corpuscular Hemoglobin 31.2H, Mean Corpuscular Hemoglobin Concent 34.0, Red Cell Distribution Width 11.7, Platelet Count 164, Mean Platelet Volume 7.3, Neutrophils (%) (Auto) 81.7H, Lymphocytes ( %) (Auto) 8.4L, Monocytes (%) (Auto) 6.9, Eosinophils (%) (Auto) 2.6, Basophils (%) (Auto) 0.4, Sodium Level 135L, Potassium Level 3.6, Chloride Level 99, Carbon Dioxide Level 26, Anion Gap 10, Blood Urea Nitrogen 46H, Creatinine 5.6H , Estimat Glomerular Filtration Rate 11.4, Glucose Level 110H, Calcium Level 7.6L, Phosphorus Level 4.2, Magnesium Level 2.4, Total Bilirubin 1.2H, Direct Bilirubin 0.4H, Aspartate Amino Transf (AST/SGOT) 1123H, Alanine Aminotransferase (ALT/SGPT) 772H, Alkaline Phosphatase 175H, Total Protein 5.3L , Albumin 1.8L, Globulin 3.5, Albumin/Globulin Ratio 0.5L, Random Vancomycin Level 22.4 Height (Feet): 5 Height (Inches): 8.00 Weight (Pounds): 187 Objective HEAD AND NECK: No JVP. No LAD. G-tube is in place. Head is atraumatic and normocephalic. LUNGS: He has decreased breathing sounds on the both sides. CARDIAC: Regular rate and rhythm. S1 and S2. No murmur. No rub. ABDOMEN: Soft. Bowel sounds positive. EXTREMITIES: No edema. No clubbing. No cyanosis. Aixa Veloz MD Sep 02, 2017 08:57
--- NOTE | 2017-09-02 09:53 | Consultation ---
Consult Note Consult Note NEUROLOGY CONSULTATION: Full note dictated #[id number] 37 y/o, CM of ?H who was found unconscious in a hotel room on 08/29/17. Paramedics were called to patient's hotel room. He found unresponsive with drug paraphernalia. Resp rate was elevated, but still given Narcan with possible improvement. Glucose was in 50's and D50 given. Repeat glucose in 100's. He was hot to touch. He was brought to the [facility] ER and was thought to have a drug OD and sepsis. He had to be intubated and sedated. He was treated for sepsis. He continues to have an altered MS and thus this consult. ON EXAM: On Fentanyl - cannot be aroused for more than a few seconds. Unable to cooperate for MS testing. No focal or lateralizing findings. CT of brain done on 08/29/17 benign. IMPRESSION: Altered MS due to toxic/metabolic encephalopathy. REC: Wean off mind-altering drugs. Rx of sepsis. W/U for other treatable encephalopathy. Chris Ricketts M.D., M.S.P.H. CHRIS RICKETTS Sep 02, 2017 09:53
--- NOTE | 2017-09-02 09:55 | Pulmonolgy Critical Care Note ---
Critical Care - Asmt/Plan Problems: (1) Respiratory failure (2) Aspiration pneumonia (3) Rhabdomyolysis (4) LUCRECIA (acute kidney injury) (5) NSTEMI (non-ST elevated myocardial infarction) (6) Substance abuse Assessment/Plan: didn't tolerate weaning earlier today, will try again later. off versed drip since yesterday afternoon. cut Fentanyl to half and use Haldol prn for agitation. 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 - Objective Last 24 Hour Vital Signs Date Time Temp Pulse Resp B/P (MAP) Pulse Ox O2 Delivery O2 Flow Rate FiO2 09/02/17 09:23 101.0 09/02/17 09:18 101.0 09/02/17 09:15 93 22 40 09/02/17 09:15 97 09/02/17 09:00 96 21 143/87 (105) 100 09/02/17 08:53 100.1 09/02/17 08:00 Mechanical Ventilator 09/02/17 08:00 103 09/02/17 08:00 40 09/02/17 08:00 99.6 90 20 124/68 (86) 99 99.6 09/02/17 07:40 89 16 40 09/02/17 07:00 21 09/02/17 07:00 98 21 152/84 (106) 100 09/02/17 06:44 93 22 40 09/02/17 06:30 98 21 154/88 (110) 99 09/02/17 06:00 95 20 141/78 (99) 98 09/02/17 06:00 20 09/02/17 05:30 26 09/02/17 05:30 100 21 142/77 (98) 97 09/02/17 05:00 23 09/02/17 05:00 93 20 144/79 (100) 100 09/02/17 04:57 92 20 40 09/02/17 04:30 90 20 126/72 (90) 98 09/02/17 04:01 89 09/02/17 04:00 Mechanical Ventilator 09/02/17 04:00 20 09/02/17 04:00 99.8 90 20 137/67 (90) 99 99.8 09/02/17 04:00 40 09/02/17 03:30 89 20 139/73 (95) 98 09/02/17 03:21 89 20 40 09/02/17 03:00 20 09/02/17 03:00 88 20 125/67 (86) 100 09/02/17 02:30 84 20 115/50 (71) 100 09/02/17 02:00 20 09/02/17 02:00 87 20 125/67 (86) 100 09/02/17 01:30 85 20 115/59 (77) 100 09/02/17 01:05 80 20 40 09/02/17 01:00 86 20 119/64 (82) 100 09/02/17 01:00 20 09/02/17 00:30 84 20 123/65 (84) 100 09/02/17 00:01 84 09/02/17 00:00 20 09/02/17 00:00 99.1 79 20 123/65 (84) 100 99.1 09/02/17 00:00 Mechanical Ventilator 09/01/17 23:30 81 20 109/59 (76) 100 09/01/17 23:00 20 09/01/17 23:00 81 20 113/60 (77) 100 09/01/17 22:53 83 20 40 09/01/17 22:30 83 20 120/59 (79) 100 09/01/17 22:00 83 20 119/55 (76) 100 09/01/17 22:00 20 09/01/17 21:30 85 20 113/58 (76) 100 09/01/17 21:04 88 20 40 09/01/17 21:00 85 20 104/51 (68) 100 09/01/17 21:00 20 09/01/17 20:30 78 20 113/62 (79) 100 09/01/17 20:00 Mechanical Ventilator 09/01/17 20:00 79 09/01/17 20:00 20 09/01/17 20:00 40 09/01/17 20:00 98.6 81 20 120/66 (84) 100 98.6 09/01/17 19:30 84 20 127/74 (91) 99 09/01/17 19:00 89 20 40 09/01/17 19:00 88 26 134/79 (97) 97 09/01/17 19:00 22 09/01/17 18:00 98.6 87 21 132/77 (95) 100 98.6 09/01/17 18:00 22 09/01/17 17:00 18 09/01/17 17:00 99.6 61 21 112/49 (70) 100 99.6 09/01/17 16:45 84 20 40 09/01/17 16:23 Mechanical Ventilator 15.0 40 09/01/17 16:00 Mechanical Ventilator 09/01/17 16:00 89 21 119/64 (82) 100 09/01/17 16:00 84 09/01/17 16:00 40 09/01/17 15:00 84 20 119/64 (82) 100 09/01/17 14:57 85 20 40 09/01/17 14:00 80 20 119/59 (79) 100 09/01/17 13:00 98.8 79 20 117/65 (82) 100 98.8 09/01/17 12:44 80 20 40 09/01/17 12:30 Mechanical Ventilator 15.0 40 09/01/17 12:00 Mechanical Ventilator 09/01/17 12:00 80 20 115/68 (84) 100 09/01/17 12:00 77 09/01/17 12:00 22 09/01/17 12:00 40 09/01/17 11:00 22 09/01/17 11:00 77 20 110/65 (80) 100 09/01/17 10:39 74 20 40 09/01/17 10:00 76 20 108/65 (79) 100 09/01/17 10:00 20 Status: awake Condition: critical HEENT: atraumatic Neck: full ROM Lungs: clear Heart: HR/BP stable Abdomen: soft, non-tender Extremities: no C/C/E Decubiti: location Micro: Microbiology Date/Time Source Procedure Growth Status 08/30/17 17:00 Sputum Induced Gram Stain - Final Complete 08/30/17 17:00 Sputum Induced Sputum Culture - Final NORMAL UPPER RESPIRATORY CLAUDIA PRESENT Complete 08/30/17 10:20 Urine,Clean Catch Urine Culture - Final NO GROWTH AFTER 48 HOURS Complete Accucheck: 96 Critical Care - Subjective ROS Limited/Unobtainable: No Condition: critical EKG Rhythm: Sinus Rhythm FI02: 40 Vent Support Breath Rate: 20 Vent Support Mode: AC Vent Tidal Volume: 650 Sputum Amount: Moderate PEEP: 5.0 PIP: 37 Tube Feeding Amount: 40 I&O: Intake and Output 09/01/17 09/02/17 19:00 07:00 Intake Total 796.0 ml 1424.5 ml Output Total 2545 ml 20 ml Balance -1749.0 ml 1404.5 ml IV Total 612.0 ml 1002.5 ml Tube Feeding 184 ml 422 ml Output Urine Total 45 ml 20 ml Hemodialysis UF 2500 ml # Bowel Movements 1 2 CXR: less edema, ET in good position ET-Tube: 7.5 ET Position: 23 Labs: Laboratory Tests Test 09/02/17 04:25 09/02/17 09:15 White Blood Count 13.0 K/UL (4.8-10.8) H Red Blood Count 3.49 M/UL (4.70-6.10) L Hemoglobin 10.9 G/DL (14.2-18.0) L Hematocrit 32.0 % (42.0-52.0) L Mean Corpuscular Volume 92 FL (80-99) Mean Corpuscular Hemoglobin 31.2 PG (27.0-31.0) H Mean Corpuscular Hemoglobin Concent 34.0 G/DL (32.0-36.0) Red Cell Distribution Width 11.7 % (11.6-14.8) Platelet Count 164 K/UL (150-450) Mean Platelet Volume 7.3 FL (6.5-10.1) Neutrophils (%) (Auto) 81.7 % (45.0-75.0) H Lymphocytes (%) (Auto) 8.4 % (20.0-45.0) L Monocytes (%) (Auto) 6.9 % (1.0-10.0) Eosinophils (%) (Auto) 2.6 % (0.0-3.0) Basophils (%) (Auto) 0.4 % (0.0-2.0) Sodium Level 135 MMOL/L (136-145) L Potassium Level 3.6 MMOL/L (3.5-5.1) Chloride Level 99 MMOL/L (98-107) Carbon Dioxide Level 26 MMOL/L (21-32) Anion Gap 10 mmol/L (5-15) Blood Urea Nitrogen 46 mg/dL (7-18) H Creatinine 5.6 MG/DL (0.55-1.30) H Estimat Glomerular Filtration Rate 11.4 mL/min (>60) Glucose Level 110 MG/DL (74-106) H Calcium Level 7.6 MG/DL (8.5-10.1) L Phosphorus Level 4.2 MG/DL (2.5-4.9) Magnesium Level 2.4 MG/DL (1.8-2.4) Total Bilirubin 1.2 MG/DL (0.2-1.0) H Direct Bilirubin 0.4 MG/DL (0.0-0.3) H Aspartate Amino Transf (AST/SGOT) 1123 U/L (15-37) H Alanine Aminotransferase (ALT/SGPT) 772 U/L (12-78) H Alkaline Phosphatase 175 U/L (46-116) H Total Protein 5.3 G/DL (6.4-8.2) L Albumin 1.8 G/DL (3.4-5.0) L Globulin 3.5 g/dL Albumin/Globulin Ratio 0.5 (1.0-2.7) L Random Vancomycin Level 22.4 ug/mL Arterial Blood pH 7.378 (7.350-7.450) Arterial Blood Partial Pressure CO2 41.2 mmHg (35.0-45.0) Arterial Blood Partial Pressure O2 85.9 mmHg (75.0-100.0) Arterial Blood HCO3 23.7 mmol/L (22.0-26.0) Arterial Blood Oxygen Saturation 96.5 % (92.0-98.0) Arterial Blood Base Excess -1.4 Miguel Test Positive Arpita Andre MD Sep 02, 2017 09:55
[2017-09-02] MEDS ORDERED: NS 275ml ONE (10:22)
[2017-09-02] MEDS ORDERED: Tubing IV Secondary IV ONE ×2 (10:22→10:32)
[2017-09-02] MEDS: Zosyn 2.25 gm in D5W 55ml IV SCH ×3 (10:29→21:52)
[2017-09-02] MEDS ORDERED: D5NS 1000ml IV ONE (10:32)
[2017-09-02] MEDS ORDERED: D5 1/2NS 1000ml IV ONE (10:32)
[2017-09-02] MEDS ORDERED: NS 500ML ONE (10:32)
[2017-09-02] MEDS ORDERED: Sterile Water Irrig 1000ml IRRIG ONE (10:32)
[2017-09-02] MEDS: D5 IV SCH (11:22)
[2017-09-02] MEDS: [UNRECOGNIZED DRUG - OTHER] IV SCH (11:22)
[2017-09-02] MEDS: SODIUM BICARBONATE IV SCH (11:22)
--- NOTE | 2017-09-02 11:35 | GI Progress Note ---
Assessment/Plan Problems: (1) Severe sepsis ICD Codes: A41.9 - Sepsis, unspecified organism; R65.20 - Severe sepsis without septic shock SNOMED: 02266639 (2) Rhabdomyolysis ICD Codes: M62.82 - Rhabdomyolysis SNOMED: 292758101 Qualifiers: Qualified Codes: T79.6XXA - Traumatic ischemia of muscle, initial encounter (3) Aspiration pneumonia ICD Codes: J69.0 - Pneumonitis due to inhalation of food and vomit SNOMED: 621645958 Qualifiers: Qualified Codes: J69.0 - Pneumonitis due to inhalation of food and vomit (4) Substance abuse ICD Codes: F19.10 - Other psychoactive substance abuse, uncomplicated SNOMED: 20481543 (5) Transaminitis ICD Codes: R74.0 - Nonspecific elevation of levels of transaminase and lactic acid dehydrogenase [LDH] SNOMED: 481175510, 912849858 Status: stable Status Narrative Discussed with Dr. Chavez. Assessment/Plan Hx of Hep A Hep C positive start NGTFs fu labs, trend LFTs supportive care outpatient Hep C tx The patient was seen and examined at bedside and all new and available data was reviewed in the patients chart. I agree with the above findings, impression and plan. (Patient seen earlier today. Signature stamp does not reflect patient encounter time.). - Efrain Chavez MD Subjective Subjective limited Objective Last 24 Hour Vital Signs Date Time Temp Pulse Resp B/P (MAP) Pulse Ox O2 Delivery O2 Flow Rate FiO2 09/02/17 11:22 20 09/02/17 11:00 89 21 136/66 (89) 99 09/02/17 10:17 100.3 09/02/17 10:00 100 21 116/66 (83) 97 09/02/17 09:23 101.0 09/02/17 09:18 101.0 09/02/17 09:15 93 22 40 09/02/17 09:15 97 09/02/17 09:00 96 21 143/87 (105) 100 09/02/17 08:53 100.1 09/02/17 08:00 Mechanical Ventilator 09/02/17 08:00 103 09/02/17 08:00 40 09/02/17 08:00 99.6 90 20 124/68 (86) 99 99.6 09/02/17 07:40 89 16 40 09/02/17 07:00 21 09/02/17 07:00 98 21 152/84 (106) 100 09/02/17 06:44 93 22 40 09/02/17 06:30 98 21 154/88 (110) 99 09/02/17 06:00 95 20 141/78 (99) 98 09/02/17 06:00 20 09/02/17 05:30 26 09/02/17 05:30 100 21 142/77 (98) 97 09/02/17 05:00 23 09/02/17 05:00 93 20 144/79 (100) 100 09/02/17 04:57 92 20 40 09/02/17 04:30 90 20 126/72 (90) 98 09/02/17 04:01 89 09/02/17 04:00 Mechanical Ventilator 09/02/17 04:00 20 09/02/17 04:00 99.8 90 20 137/67 (90) 99 99.8 09/02/17 04:00 40 09/02/17 03:30 89 20 139/73 (95) 98 09/02/17 03:21 89 20 40 09/02/17 03:00 20 09/02/17 03:00 88 20 125/67 (86) 100 09/02/17 02:30 84 20 115/50 (71) 100 09/02/17 02:00 20 09/02/17 02:00 87 20 125/67 (86) 100 09/02/17 01:30 85 20 115/59 (77) 100 09/02/17 01:05 80 20 40 09/02/17 01:00 86 20 119/64 (82) 100 09/02/17 01:00 20 09/02/17 00:30 84 20 123/65 (84) 100 09/02/17 00:01 84 09/02/17 00:00 20 09/02/17 00:00 99.1 79 20 123/65 (84) 100 99.1 09/02/17 00:00 Mechanical Ventilator 09/01/17 23:30 81 20 109/59 (76) 100 09/01/17 23:00 20 09/01/17 23:00 81 20 113/60 (77) 100 09/01/17 22:53 83 20 40 09/01/17 22:30 83 20 120/59 (79) 100 09/01/17 22:00 83 20 119/55 (76) 100 09/01/17 22:00 20 09/01/17 21:30 85 20 113/58 (76) 100 18 21:04 88 20 40 09/01/17 21:00 85 20 104/51 (68) 100 09/01/17 21:00 20 09/01/17 20:30 78 20 113/62 (79) 100 09/01/17 20:00 Mechanical Ventilator 09/01/17 20:00 79 09/01/17 20:00 20 09/01/17 20:00 40 09/01/17 20:00 98.6 81 20 120/66 (84) 100 98.6 09/01/17 19:30 84 20 127/74 (91) 99 09/01/17 19:00 89 20 40 09/01/17 19:00 88 26 134/79 (97) 97 09/01/17 19:00 22 09/01/17 18:00 98.6 87 21 132/77 (95) 100 98.6 09/01/17 18:00 22 09/01/17 17:00 18 09/01/17 17:00 99.6 61 21 112/49 (70) 100 99.6 09/01/17 16:45 84 20 40 09/01/17 16:23 Mechanical Ventilator 15.0 40 09/01/17 16:00 Mechanical Ventilator 09/01/17 16:00 89 21 119/64 (82) 100 09/01/17 16:00 84 09/01/17 16:00 40 09/01/17 15:00 84 20 119/64 (82) 100 09/01/17 14:57 85 20 40 09/01/17 14:00 80 20 119/59 (79) 100 09/01/17 13:00 98.8 79 20 117/65 (82) 100 98.8 09/01/17 12:44 80 20 40 09/01/17 12:30 Mechanical Ventilator 15.0 40 09/01/17 12:00 Mechanical Ventilator 09/01/17 12:00 80 20 115/68 (84) 100 09/01/17 12:00 77 09/01/17 12:00 22 09/01/17 12:00 40 Intake and Output 09/01/17 09/02/17 19:00 07:00 Intake Total 796.0 ml 1424.5 ml Output Total 2545 ml 20 ml Balance -1749.0 ml 1404.5 ml IV Total 612.0 ml 1002.5 ml Tube Feeding 184 ml 422 ml Output Urine Total 45 ml 20 ml Hemodialysis UF 2500 ml # Bowel Movements 1 2 Laboratory Tests Test 09/02/17 04:20 09/02/17 04:25 09/02/17 09:15 Erythrocyte Sedimentation Rate 99 MM/HR (0-15) H Hemoglobin A1c 5.3 % (4.3-6.0) Vitamin B12 Level 1571 PG/ML (193-986) H Vitamin D 25-Hydroxy Pending 25-Hydroxy Vitamin D2 Pending 25-Hydroxy Vitamin D3 Pending Folate 11.2 NG/ML (8.6-58.9) Thyroid Stimulating Hormone (TSH) 4.721 uiU/mL (0.358-3.740) White Blood Count 13.0 K/UL (4.8-10.8) H Red Blood Count 3.49 M/UL (4.70-6.10) L Hemoglobin 10.9 G/DL (14.2-18.0) L Hematocrit 32.0 % (42.0-52.0) L Mean Corpuscular Volume 92 FL (80-99) Mean Corpuscular Hemoglobin 31.2 PG (27.0-31.0) H Mean Corpuscular Hemoglobin Concent 34.0 G/DL (32.0-36.0) Red Cell Distribution Width 11.7 % (11.6-14.8) Platelet Count 164 K/UL (150-450) Mean Platelet Volume 7.3 FL (6.5-10.1) Neutrophils (%) (Auto) 81.7 % (45.0-75.0) H Lymphocytes (%) (Auto) 8.4 % (20.0-45.0) L Monocytes (%) (Auto) 6.9 % (1.0-10.0) Eosinophils (%) (Auto) 2.6 % (0.0-3.0) Basophils (%) (Auto) 0.4 % (0.0-2.0) Sodium Level 135 MMOL/L (136-145) L Potassium Level 3.6 MMOL/L (3.5-5.1) Chloride Level 99 MMOL/L (98-107) Carbon Dioxide Level 26 MMOL/L (21-32) Anion Gap 10 mmol/L (5-15) Blood Urea Nitrogen 46 mg/dL (7-18) H Creatinine 5.6 MG/DL (0.55-1.30) H Estimat Glomerular Filtration Rate 11.4 mL/min (>60) Glucose Level 110 MG/DL (74-106) H Calcium Level 7.6 MG/DL (8.5-10.1) L Phosphorus Level 4.2 MG/DL (2.5-4.9) Magnesium Level 2.4 MG/DL (1.8-2.4) Total Bilirubin 1.2 MG/DL (0.2-1.0) H Direct Bilirubin 0.4 MG/DL (0.0-0.3) H Aspartate Amino Transf (AST/SGOT) 1123 U/L (15-37) H Alanine Aminotransferase (ALT/SGPT) 772 U/L (12-78) H Alkaline Phosphatase 175 U/L (46-116) H Total Protein 5.3 G/DL (6.4-8.2) L Albumin 1.8 G/DL (3.4-5.0) L Globulin 3.5 g/dL Albumin/Globulin Ratio 0.5 (1.0-2.7) L Random Vancomycin Level 22.4 ug/mL Arterial Blood pH 7.378 (7.350-7.450) Arterial Blood Partial Pressure CO2 41.2 mmHg (35.0-45.0) Arterial Blood Partial Pressure O2 85.9 mmHg (75.0-100.0) Arterial Blood HCO3 23.7 mmol/L (22.0-26.0) Arterial Blood Oxygen Saturation 96.5 % (92.0-98.0) Arterial Blood Base Excess -1.4 Miguel Test Positive Height (Feet): 5 Height (Inches): 8.00 Weight (Pounds): 187 General Appearance: WD/WN, no apparent distress, alert Cardiovascular: normal rate Respiratory/Chest: normal breath sounds, no respiratory distress Abdominal Exam: normal bowel sounds, non tender, soft Extremities: normal range of motion, non-tender Carlos Lopez [employer] Sep 02, 2017 11:34
--- NOTE | 2017-09-02 14:21 | General Progress Note ---
Assessment/Plan Problem List: (1) Substance abuse ICD Codes: F19.10 - Other psychoactive substance abuse, uncomplicated SNOMED: 92159232 (2) Respiratory failure ICD Codes: J96.90 - Respiratory failure, unspecified, unspecified whether with hypoxia or hypercapnia SNOMED: 059371165 Qualifiers: Qualified Codes: J96.01 - Acute respiratory failure with hypoxia (3) Rhabdomyolysis ICD Codes: M62.82 - Rhabdomyolysis SNOMED: 183857431 Qualifiers: Qualified Codes: T79.6XXA - Traumatic ischemia of muscle, initial encounter (4) NSTEMI (non-ST elevated myocardial infarction) ICD Codes: I21.4 - Non-ST elevation (NSTEMI) myocardial infarction SNOMED: 429035388 (5) LUCRECIA (acute kidney injury) ICD Codes: N17.9 - Acute kidney failure, unspecified SNOMED: 08510073 Status: unchanged Assessment/Plan vent abx neuro psyc eval cbc bmp am Subjective Constitutional: Reports: weakness Allergies: Coded Allergies: UNABLE TO ASSESS (Unverified , 08/29/17) All Systems: reviewed and negative except above Subjective intub sedated ng in icu Objective Last 24 Hour Vital Signs Date Time Temp Pulse Resp B/P (MAP) Pulse Ox O2 Delivery O2 Flow Rate FiO2 09/02/17 13:04 86 20 40 09/02/17 13:00 21 09/02/17 13:00 92 21 131/78 (95) 99 09/02/17 12:00 103 09/02/17 12:00 Mechanical Ventilator 09/02/17 12:00 40 09/02/17 12:00 21 09/02/17 12:00 99.4 92 20 160/90 (113) 99 99.4 09/02/17 11:52 99.9 09/02/17 11:22 20 09/02/17 11:21 86 20 40 09/02/17 11:00 89 21 136/66 (89) 99 09/02/17 11:00 20 09/02/17 10:17 100.3 09/02/17 10:00 100 21 116/66 (83) 97 09/02/17 10:00 20 09/02/17 09:23 101.0 09/02/17 09:18 101.0 09/02/17 09:15 93 22 40 09/02/17 09:15 97 09/02/17 09:00 21 09/02/17 09:00 96 21 143/87 (105) 100 09/02/17 08:53 100.1 09/02/17 08:00 Mechanical Ventilator 09/02/17 08:00 20 09/02/17 08:00 103 09/02/17 08:00 40 09/02/17 08:00 99.6 90 20 124/68 (86) 99 99.6 09/02/17 07:40 89 16 40 09/02/17 07:00 21 09/02/17 07:00 98 21 152/84 (106) 100 09/02/17 06:44 93 22 40 09/02/17 06:30 98 21 154/88 (110) 99 09/02/17 06:00 95 20 141/78 (99) 98 09/02/17 06:00 20 09/02/17 05:30 26 09/02/17 05:30 100 21 142/77 (98) 97 09/02/17 05:00 23 09/02/17 05:00 93 20 144/79 (100) 100 09/02/17 04:57 92 20 40 09/02/17 04:30 90 20 126/72 (90) 98 09/02/17 04:01 89 09/02/17 04:00 Mechanical Ventilator 09/02/17 04:00 20 09/02/17 04:00 99.8 90 20 137/67 (90) 99 99.8 09/02/17 04:00 40 09/02/17 03:30 89 20 139/73 (95) 98 09/02/17 03:21 89 20 40 09/02/17 03:00 20 09/02/17 03:00 88 20 125/67 (86) 100 09/02/17 02:30 84 20 115/50 (71) 100 09/02/17 02:00 20 09/02/17 02:00 87 20 125/67 (86) 100 09/02/17 01:30 85 20 115/59 (77) 100 09/02/17 01:05 80 20 40 09/02/17 01:00 86 20 119/64 (82) 100 09/02/17 01:00 20 09/02/17 00:30 84 20 123/65 (84) 100 09/02/17 00:01 84 09/02/17 00:00 20 09/02/17 00:00 99.1 79 20 123/65 (84) 100 99.1 09/02/17 00:00 Mechanical Ventilator 09/01/17 23:30 81 20 109/59 (76) 100 09/01/17 23:00 20 09/01/17 23:00 81 20 113/60 (77) 100 09/01/17 22:53 83 20 40 09/01/17 22:30 83 20 120/59 (79) 100 09/01/17 22:00 83 20 119/55 (76) 100 09/01/17 22:00 20 09/01/17 21:30 85 20 113/58 (76) 100 09/01/17 21:04 88 20 40 09/01/17 21:00 85 20 104/51 (68) 100 09/01/17 21:00 20 09/01/17 20:30 78 20 113/62 (79) 100 09/01/17 20:00 Mechanical Ventilator 09/01/17 20:00 79 09/01/17 20:00 20 09/01/17 20:00 40 09/01/17 20:00 98.6 81 20 120/66 (84) 100 98.6 09/01/17 19:30 84 20 127/74 (91) 99 09/01/17 19:00 89 20 40 09/01/17 19:00 88 26 134/79 (97) 97 09/01/17 19:00 22 09/01/17 18:00 98.6 87 21 132/77 (95) 100 98.6 09/01/17 18:00 22 09/01/17 17:00 18 09/01/17 17:00 99.6 61 21 112/49 (70) 100 99.6 09/01/17 16:45 84 20 40 09/01/17 16:23 Mechanical Ventilator 15.0 40 09/01/17 16:00 Mechanical Ventilator 09/01/17 16:00 89 21 119/64 (82) 100 09/01/17 16:00 84 09/01/17 16:00 40 09/01/17 15:00 84 20 119/64 (82) 100 09/01/17 14:57 85 20 40 Intake and Output 09/01/17 09/02/17 19:00 07:00 Intake Total 796.0 ml 1424.5 ml Output Total 2545 ml 20 ml Balance -1749.0 ml 1404.5 ml IV Total 612.0 ml 1002.5 ml Tube Feeding 184 ml 422 ml Output Urine Total 45 ml 20 ml Hemodialysis UF 2500 ml # Bowel Movements 1 2 Laboratory Tests 09/02/17 04:20: Erythrocyte Sedimentation Rate 99H, Hemoglobin A1c 5.3, Vitamin B12 Level 1571H , Vitamin D 25-Hydroxy [Pending], 25-Hydroxy Vitamin D2 [Pending], 25-Hydroxy Vitamin D3 [Pending], Folate 11.2, Thyroid Stimulating Hormone (TSH) 4.721H 09/02/17 04:25: White Blood Count 13.0H, Red Blood Count 3.49L, Hemoglobin 10.9L, Hematocrit 32.0L, Mean Corpuscular Volume 92, Mean Corpuscular Hemoglobin 31.2H, Mean Corpuscular Hemoglobin Concent 34.0, Red Cell Distribution Width 11.7, Platelet Count 164, Mean Platelet Volume 7.3, Neutrophils (%) (Auto) 81.7H, Lymphocytes ( %) (Auto) 8.4L, Monocytes (%) (Auto) 6.9, Eosinophils (%) (Auto) 2.6, Basophils (%) (Auto) 0.4, Sodium Level 135L, Potassium Level 3.6, Chloride Level 99, Carbon Dioxide Level 26, Anion Gap 10, Blood Urea Nitrogen 46H, Creatinine 5.6H , Estimat Glomerular Filtration Rate 11.4, Glucose Level 110H, Calcium Level 7.6L, Phosphorus Level 4.2, Magnesium Level 2.4, Total Bilirubin 1.2H, Direct Bilirubin 0.4H, Aspartate Amino Transf (AST/SGOT) 1123H, Alanine Aminotransferase (ALT/SGPT) 772H, Alkaline Phosphatase 175H, Total Protein 5.3L , Albumin 1.8L, Globulin 3.5, Albumin/Globulin Ratio 0.5L, Random Vancomycin Level 22.4 09/02/17 09:15: Arterial Blood pH 7.378, Arterial Blood Partial Pressure CO2 41.2, Arterial Blood Partial Pressure O2 85.9, Arterial Blood HCO3 23.7, Arterial Blood Oxygen Saturation 96.5, Arterial Blood Base Excess -1.4, Miguel Test Positive Height (Feet): 5 Height (Inches): 8.00 Weight (Pounds): 187 General Appearance: lethargic EENT: normal ENT inspection Neck: normal alignment Cardiovascular: normal peripheral pulses, normal rate, regular rhythm Respiratory/Chest: chest wall non-tender, lungs clear, normal breath sounds Abdomen: normal bowel sounds, non tender, soft Extremities: normal inspection Edema: no edema noted Arm (L), no edema noted Arm (R), no edema noted Leg (L), no edema noted Leg (R), no edema noted Pedal (L), no edema noted Pedal (R), no edema noted Generalized Neurologic: motor weakness Skin: normal pigmentation, warm/dry Reid Anaya DO Sep 02, 2017 14:21
--- NOTE | 2017-09-02 15:29 | Diagnostic Imaging Report ---
Indication: Dyspnea Technique: XRAY Chest 1v Comparison: 09/01/2017 Findings: Endotracheal tube, noncontrasted analysis catheter and enteric tube unchanged. Heart size and mediastinal contours stable. Increasing patchy opacities in the right lung. No pneumothorax. Costophrenic sulci remain sharp. Osseous structures stable. IMPRESSION: Increasing right sided patchy opacities with evidence of right-sided volume loss compared to the prior exam likely related to atelectasis and worsening airspace disease.
--- NOTE | 2017-09-02 16:00 | Infectious Diseases Prog Note ---
Assessment/Plan Assessment/Plan Assessment: Shock, SP Aspiration PNA vs ARDS -CXR:More consolidated areas within the diffuse airspace opacity within the right lung and now possible right pleural effusion. The patient is rotated to the right. Interval increase in patchy left perihilar airspace opacities. May represent component of pulmonary edema or aspiration pneumonitis. -sp cx normal ann Rule out sepsis -u/a wbc 5-10, nit neg, leuk +1; cx neg -Bcx NTD -2d Echo (limited but no vegetations seen) Drug overdose -UDS + opiates, amphetamines, THC, cocaine -+empty heroin needles (found on hotel room) Multiorgan failure -LUCRECIA, worsening -Transaminitis, worse (shock liver) -VDRF (airway protection) Lactic acidosis; improving Rhabdomyolisis Pancreatitis- drug induced -neg alcohol levels Encephalopathy- 2ry to above- r.o ischemia, r/o abscess (fever, IVDA +) -CT head 08/29: Limited exam due to motion artifact. No gross acute intracranial bleed or mass effect Hep C +; VL pending -r/o chirrosis, malignancy -Hep A and B immune Plan: -Continue empiric IV Vanco and IV Zosyn # 5 for now and add IV Azithromycin for atypicals/legionella coverage -f/u cx -Repeat Bcx x2 and sp cx -legionella ag urine -Brain MRI to eval for ischemia and/or abscess (+persistent fevers, +IVDA) -Monitor CBC/CMP, temperatures -ETT care -ICU care/support -aspiration precautions -CBC, CMP, CK, lipase, lactic acid am -Neuro,c ardio, renal, GI f/u -Abd US Discussed with RN. Subjective Allergies: Coded Allergies: UNABLE TO ASSESS (Unverified , 08/29/17) Subjective continue to be febrile, Tm 101 Fio2 40% all cx NTD remains encephalopathic and anuric leukocytosis improving off pressors Objective Vital Signs Last 24 Hour Vital Signs Date Time Temp Pulse Resp B/P (MAP) Pulse Ox O2 Delivery O2 Flow Rate FiO2 09/02/17 13:04 86 20 40 09/02/17 13:00 21 09/02/17 13:00 92 21 131/78 (95) 99 09/02/17 12:00 103 09/02/17 12:00 Mechanical Ventilator 09/02/17 12:00 40 09/02/17 12:00 21 09/02/17 12:00 99.4 92 20 160/90 (113) 99 99.4 09/02/17 11:52 99.9 09/02/17 11:22 20 09/02/17 11:21 86 20 40 09/02/17 11:00 89 21 136/66 (89) 99 09/02/17 11:00 20 09/02/17 10:17 100.3 09/02/17 10:00 100 21 116/66 (83) 97 09/02/17 10:00 20 09/02/17 09:23 101.0 09/02/17 09:18 101.0 09/02/17 09:15 93 22 40 09/02/17 09:15 97 09/02/17 09:00 21 09/02/17 09:00 96 21 143/87 (105) 100 09/02/17 08:53 100.1 09/02/17 08:00 Mechanical Ventilator 09/02/17 08:00 20 09/02/17 08:00 103 09/02/17 08:00 40 09/02/17 08:00 99.6 90 20 124/68 (86) 99 99.6 09/02/17 07:40 89 16 40 09/02/17 07:00 21 09/02/17 07:00 98 21 152/84 (106) 100 09/02/17 06:44 93 22 40 09/02/17 06:30 98 21 154/88 (110) 99 09/02/17 06:00 95 20 141/78 (99) 98 09/02/17 06:00 20 09/02/17 05:30 26 09/02/17 05:30 100 21 142/77 (98) 97 09/02/17 05:00 23 09/02/17 05:00 93 20 144/79 (100) 100 09/02/17 04:57 92 20 40 09/02/17 04:30 90 20 126/72 (90) 98 09/02/17 04:01 89 09/02/17 04:00 Mechanical Ventilator 09/02/17 04:00 20 09/02/17 04:00 99.8 90 20 137/67 (90) 99 99.8 09/02/17 04:00 40 09/02/17 03:30 89 20 139/73 (95) 98 09/02/17 03:21 89 20 40 09/02/17 03:00 20 09/02/17 03:00 88 20 125/67 (86) 100 09/02/17 02:30 84 20 115/50 (71) 100 09/02/17 02:00 20 09/02/17 02:00 87 20 125/67 (86) 100 09/02/17 01:30 85 20 115/59 (77) 100 09/02/17 01:05 80 20 40 09/02/17 01:00 86 20 119/64 (82) 100 09/02/17 01:00 20 09/02/17 00:30 84 20 123/65 (84) 100 09/02/17 00:01 84 09/02/17 00:00 20 09/02/17 00:00 99.1 79 20 123/65 (84) 100 99.1 09/02/17 00:00 Mechanical Ventilator 09/01/17 23:30 81 20 109/59 (76) 100 09/01/17 23:00 20 09/01/17 23:00 81 20 113/60 (77) 100 09/01/17 22:53 83 20 40 09/01/17 22:30 83 20 120/59 (79) 100 09/01/17 22:00 83 20 119/55 (76) 100 09/01/17 22:00 20 09/01/17 21:30 85 20 113/58 (76) 100 09/01/17 21:04 88 20 40 09/01/17 21:00 85 20 104/51 (68) 100 09/01/17 21:00 20 09/01/17 20:30 78 20 113/62 (79) 100 09/01/17 20:00 Mechanical Ventilator 09/01/17 20:00 79 09/01/17 20:00 20 09/01/17 20:00 40 09/01/17 20:00 98.6 81 20 120/66 (84) 100 98.6 09/01/17 19:30 84 20 127/74 (91) 99 09/01/17 19:00 89 20 40 09/01/17 19:00 88 26 134/79 (97) 97 09/01/17 19:00 22 09/01/17 18:00 98.6 87 21 132/77 (95) 100 98.6 09/01/17 18:00 22 09/01/17 17:00 18 09/01/17 17:00 99.6 61 21 112/49 (70) 100 99.6 09/01/17 16:45 84 20 40 09/01/17 16:23 Mechanical Ventilator 15.0 40 09/01/17 16:00 Mechanical Ventilator 09/01/17 16:00 89 21 119/64 (82) 100 09/01/17 16:00 84 09/01/17 16:00 40 Height (Feet): 5 Height (Inches): 8.00 Weight (Pounds): 187 Objective General: intubated, restless HEENT: ETT in place Heart: RRR, no murmurs Lungs: CTA x2 ABD: S+D, ND, BS+ Extremity no edema or cellulitis Microbiology Date/Time Source Procedure Growth Status 08/30/17 17:00 Sputum Induced Gram Stain - Final Complete 08/30/17 17:00 Sputum Induced Sputum Culture - Final NORMAL UPPER RESPIRATORY ANN PRESENT Complete Laboratory Tests Test 09/02/17 04:20 09/02/17 04:25 09/02/17 09:15 Erythrocyte Sedimentation Rate 99 MM/HR (0-15) H Hemoglobin A1c 5.3 % (4.3-6.0) Vitamin B12 Level 1571 PG/ML (193-986) H Vitamin D 25-Hydroxy Pending 25-Hydroxy Vitamin D2 Pending 25-Hydroxy Vitamin D3 Pending Folate 11.2 NG/ML (8.6-58.9) Thyroid Stimulating Hormone (TSH) 4.721 uiU/mL (0.358-3.740) White Blood Count 13.0 K/UL (4.8-10.8) H Red Blood Count 3.49 M/UL (4.70-6.10) L Hemoglobin 10.9 G/DL (14.2-18.0) L Hematocrit 32.0 % (42.0-52.0) L Mean Corpuscular Volume 92 FL (80-99) Mean Corpuscular Hemoglobin 31.2 PG (27.0-31.0) H Mean Corpuscular Hemoglobin Concent 34.0 G/DL (32.0-36.0) Red Cell Distribution Width 11.7 % (11.6-14.8) Platelet Count 164 K/UL (150-450) Mean Platelet Volume 7.3 FL (6.5-10.1) Neutrophils (%) (Auto) 81.7 % (45.0-75.0) H Lymphocytes (%) (Auto) 8.4 % (20.0-45.0) L Monocytes (%) (Auto) 6.9 % (1.0-10.0) Eosinophils (%) (Auto) 2.6 % (0.0-3.0) Basophils (%) (Auto) 0.4 % (0.0-2.0) Sodium Level 135 MMOL/L (136-145) L Potassium Level 3.6 MMOL/L (3.5-5.1) Chloride Level 99 MMOL/L (98-107) Carbon Dioxide Level 26 MMOL/L (21-32) Anion Gap 10 mmol/L (5-15) Blood Urea Nitrogen 46 mg/dL (7-18) H Creatinine 5.6 MG/DL (0.55-1.30) H Estimat Glomerular Filtration Rate 11.4 mL/min (>60) Glucose Level 110 MG/DL (74-106) H Calcium Level 7.6 MG/DL (8.5-10.1) L Phosphorus Level 4.2 MG/DL (2.5-4.9) Magnesium Level 2.4 MG/DL (1.8-2.4) Total Bilirubin 1.2 MG/DL (0.2-1.0) H Direct Bilirubin 0.4 MG/DL (0.0-0.3) H Aspartate Amino Transf (AST/SGOT) 1123 U/L (15-37) H Alanine Aminotransferase (ALT/SGPT) 772 U/L (12-78) H Alkaline Phosphatase 175 U/L (46-116) H Total Protein 5.3 G/DL (6.4-8.2) L Albumin 1.8 G/DL (3.4-5.0) L Globulin 3.5 g/dL Albumin/Globulin Ratio 0.5 (1.0-2.7) L Random Vancomycin Level 22.4 ug/mL Arterial Blood pH 7.378 (7.350-7.450) Arterial Blood Partial Pressure CO2 41.2 mmHg (35.0-45.0) Arterial Blood Partial Pressure O2 85.9 mmHg (75.0-100.0) Arterial Blood HCO3 23.7 mmol/L (22.0-26.0) Arterial Blood Oxygen Saturation 96.5 % (92.0-98.0) Arterial Blood Base Excess -1.4 Miguel Test Positive Current Medications Medications (Trade) Dose Ordered Sig/Krystyna Route PRN Reason Start Time Stop Time Status Last Admin Dose Admin Acetaminophen (Tylenol) 650 mg Q4H PRN ORAL Fever (temp>100.5F) 08/29/17 14:45 09/28/17 14:44 09/02/17 09:18 Albuterol/ Ipratropium (Albuterol/ Ipratropium) 3 ml Q4H PRN HHN Shortness of Breath 08/29/17 14:45 09/03/17 14:44 Chlorhexidine Gluconate (Jyotsna-Hex 2%) 1 applic DAILY@2000 TOPIC 08/30/17 20:00 09/29/17 19:59 09/01/17 19:54 Dextrose (Dextrose 50%) 25 ml STAT PRN IV Hypoglycemia 08/29/17 14:45 09/28/17 14:44 Dextrose (Dextrose 50%) 50 ml STAT PRN IV Hypoglycemia 08/29/17 16:00 09/28/17 15:59 Fentanyl Citrate 1000 mcg/Sodium Chloride 100 ml @ 0 mls/hr Q24H IV 08/31/17 11:00 09/07/17 10:59 09/02/17 11:22 Haloperidol Lactate 5 mg/ Dextrose 56 ml @ 112 mls/hr Q1H PRN IVPB SEVERE AGITATION 08/30/17 11:30 09/29/17 11:29 09/02/17 05:18 Heparin Sodium (Porcine) (Heparin 5000 units/ml) 5,000 units EVERY 12 HOURS SUBQ 08/29/17 21:00 09/28/17 20:59 09/02/17 08:54 Midazolam HCl 100 ml @ 0 mls/hr Q24H PRN IVPB See protocol text 08/29/17 18:30 09/05/17 18:29 09/01/17 08:03 Morphine Sulfate (Morphine Sulfate) 4 mg Q4H PRN IVP Severe Pain (Pain Scale 7-10) 08/29/17 14:45 09/05/17 14:44 09/02/17 08:53 Nitroglycerin (Ntg) 0.4 mg Q5M PRN SL Prn Chest Pain 08/29/17 14:45 09/28/17 14:44 Pantoprazole (Protonix) 40 mg EVERY 12 HOURS IVP 08/29/17 21:00 09/28/17 20:59 09/02/17 08:53 Piperacillin Sod/ Tazobactam Sod 2.25 gm/Dextrose 55 ml @ 110 mls/hr Q8HR IV 09/02/17 10:00 09/07/17 09:59 09/02/17 15:33 Sodium Bicarbonate 50 ml/ Dextrose/Sodium Chloride 1,000 ml @ 50 mls/hr Q20H IV 09/01/17 14:00 09/30/17 13:59 09/02/17 11:22 Vancomycin HCl (Vanco rx to dose) 1 ea DAILY PRN MISC Per rx protocol 08/29/17 16:45 09/28/17 16:44 Vancomycin HCl 1 gm/Dextrose 275 ml @ 183.708 mls/hr ONCE ONCE IVPB 09/03/17 10:00 09/03/17 11:29 Krystal Romero M.D. Sep 02, 2017 16:00
--- NOTE | 2017-09-02 16:45 | Consultation ---
DATE OF CONSULTATION: 09/02/2017 NEUROLOGY CONSULTATION CONSULTING PHYSICIAN: Sohail Ricketts M.D. REQUESTING PHYSICIAN: Reid Anaya D.O. HISTORY: Mr. Enoch Stover is a 37-year-old, gentleman, of unknown handedness, who was found unconscious in a hotel room on 08/29/2017. The paramedics were called in to his room and he was found unresponsive with drug paraphernalia close by. He was breathing rapidly, but he was still given Narcan with some possible improvement in his mental state. His blood sugar was measured and was in the 50s. He was given an ampule of D50 and repeat blood glucose was in the 100s. He was hot to touch and was quite unwell. He was brought into the [facility] emergency room and was thought to be septic with a drug overdose. He had to be intubated and sedated and treated aggressively for sepsis. At this point in time, he is in an intensive care unit bed, unresponsive, but on a fentanyl drip. As per the nurse, when the fentanyl was discontinued earlier he was quite agitated. PAST MEDICAL HISTORY: Unavailable. FAMILY HISTORY: Unavailable. PERSONAL HISTORY: Unavailable. PRESENT MEDICATIONS: Vancomycin, piperacillin and tazobactam, fentanyl drip, Haldol, heparin for DVT prophylaxis, pantoprazole, midazolam - which has been discontinued now, DuoNeb inhaler, nitroglycerin p.r.n., Tylenol p.r.n., and morphine p.r.n. PHYSICAL EXAMINATION: GENERAL: He is a well-developed, well-nourished, gentleman, lying in an ICU bed, connected to a ventilator via an orotracheal tube. VITAL SIGNS: Pulse 93 per minute, blood pressure 152/84 mmHg, respirations 22 per minute, and temperature 101 degrees Fahrenheit. HEAD: Normocephalic and atraumatic. EENT: Examination benign. NECK: No neck rigidity was observed. NEUROLOGIC EXAMINATION: MENTAL STATUS EXAMINATION: He only responded to the pain with brief eye opening. He was unable to maintain arousal. Further mental status testing was impossible. SPEECH: Could not be tested. LANGUAGE: Could not be tested. CRANIAL NERVE EXAMINATION: II: When he was aroused briefly, he did blink to threat. III, IV & : The external ocular movements were present on oculocephalic maneuvers. The pupils were 3 mm in diameter and reactive sluggishly to light. V & VII: The corneal reflexes were present and equally brisk bilaterally. VIII: He did respond to sounds and had no nystagmus. IX & X: The gag reflex was subdued on manipulating the endotracheal tube. XI: The sternocleidomastoids and trapezii could not be tested adequately. XII: Could not be tested. MOTOR SYSTEM: The tone was normal in all four extremities. Examination of muscle mass revealed no focal wasting. Examination of power was difficult to perform because he was unable to cooperate. However, he did move all four extremities minimally on applying deep painful stimuli. SENSORY EXAMINATION: He responded appropriately to deep pain. Other sensory modalities could not be tested. REFLEXES: Trace+ and bilaterally symmetrical at the biceps, triceps, brachioradialis, and knees, 0 at both ankles. The plantar responses were flexor bilaterally. COORDINATION, STANCE & GAIT: Could not be tested. DIAGNOSTIC IMPRESSION: 1. Mr. Enoch Stover is a 37-year-old, gentleman, of unknown handedness, who was found unconscious in a hotel room on 08/29/2017 after he had used multiple drugs. He was found to be possibly febrile, hypoglycemic, and breathing rapidly. Since then, he has been hospitalized and treated for sepsis. When his sedation is diminished he becomes quite agitated. 2. On neurological examination, at this time, he is sedated with fentanyl. Even after the fentanyl is discontinued for a brief period of time, he is difficult to arouse for more than a few seconds. He is unable to cooperate for mental status testing. He does not show any cranial nerve focal dysfunction. He also does not demonstrate any definite focal or lateralizing neurological findings. 3. The CT scan of the brain performed on 08/29/2017 is benign for acute pathology. 4. Laboratory data obtained thus far revealed, on admission, his hemoglobin was elevated to 18.4, his WBC was normal at 8,500, but since then his WBCs have peaked to 17,200. His chemistry panel on admission revealed BUN elevated to 31, creatinine elevated to 3.6, lactic acid elevated to 5.5, bilirubin elevated at 1.2, AST elevated at 478, ALT elevated to 159, CK elevated to greater than 10,000, troponin elevated at 1.01, BNP elevated to 2143. His urine toxicology screen was positive for opiates, amphetamines, cocaine, and marijuana. His INR was elevated at 1.2. 5. The patient's history, neurological examination, laboratory data, and imaging studies are most compatible with an altered mental state due to a toxic metabolic encephalopathy. 6. The most likely etiology for the encephalopathy is the sepsis, possibly a period of hypoglycemia and ongoing multiple metabolic imbalances and the toxic imbalances. In addition the present fentanyl use is also causing a significant encephalopathy. RECOMMENDATIONS: 1. Agree with management thus far. 2. Would try to wean the patient off mind-altering drugs. 3. Continue aggressive treatment of the patient's sepsis. 4. The patient should be worked up thoroughly for other treatable causes of encephalopathy with an addition to the laboratory tests already done, a B12 level, folate level, vitamin D level, ESR, TSH, and glycohemoglobin. 5. The patient to be observed closely and depending on how he fares over the next day or so, further recommendations will be given. Thank you for entrusting me with the care of Mr. Stover. I shall follow him with you. Sohail Ricketts M.D., M.S.P.H. : KAREN JOB#: [id number] RAJNI
[2017-09-02] MEDS: Azithromycin 500 MG in D5W 275 ML IV SCH (18:06)
--- NOTE | 2017-09-02 20:23 | Cardiology Report ---
APPROVED REPORT EXAM: Two-dimensional and M-mode echocardiogram with Doppler and color Doppler. INDICATION Acute myocard infarction Technically difficult study due to poor acoustical windows. Patient on a vent and was on restrains. Normal left ventricular chamber size, systolic function and wall motion. M-mode measurements not obtainable due to cardiac structure. Left ventricular ejection fraction estimated to be 55-60%. No evidence of left ventricular hypertrophy. No evidence of pericardial or pleural effusion. All other cardiac chamber sizes are within normal limits. Focal aortic valve sclerosis with adequate cusp excursion. Normal mitral valve leaflets with normal excursion. Normal mitral annulus and aortic root calcification. Pulmonic valve not well visualized. Normal tricuspid valve structure. IVC is normal in size and collapsible with respiration. A color flow and spectral Doppler study was performed and revealed: No aortic regurgitation. No mitral regurgitation. Normal mitral diastolic function. No tricuspid regurgitation.
[2017-09-02] MEDS: Dyna-Hex 2% Top Sol 2oz TOPIC SCH (21:04)
[2017-09-03] VITALS (39 sets, daily range): BP systolic 96–156; BP diastolic 50–99
[2017-09-03] MEDS: Haloperidol Lactate 5 MG in D5W 55 ML IVPB PRN ×3 (00:08→07:58)
[2017-09-03] MEDS: Zosyn 2.25 gm in D5W 55ml IV SCH ×3 (05:21→22:04)
[2017-09-03] MEDS: [UNRECOGNIZED DRUG - OTHER] IV SCH (05:22)
[2017-09-03] MEDS: SODIUM BICARBONATE IV SCH (05:22)
[2017-09-03] MEDS: D5 IV SCH (05:22)
[2017-09-03 05:30] LABS: BASOPHILS % (AUTO) 0.7 % (0.0-2.0); EOSINOPHILS % (AUTO) 1.6 % (0.0-3.0); HEMATOCRIT 29.6 % (42.0-52.0); HEMOGLOBIN 10.1 G/DL (14.2-18.0); LYMPHOCYTES % (AUTO) 4.8 % (20.0-45.0); MEAN CORPUSCULAR VOLUME 93 FL (80-99); MONOCYTES % (AUTO) 10.6 % (1.0-10.0); NEUTROPHILS % (AUTO) 82.2 % (45.0-75.0); PLATELET COUNT 165 K/UL (150-450); RED BLOOD COUNT 3.19 M/UL (4.70-6.10); RED CELL DISTRIBUTION WIDTH 11.6 % (11.6-14.8)
[2017-09-03 05:52] LABS: ALANINE AMINOTRANSFERASE 716 U/L (12-78); ALBUMIN 1.8 G/DL (3.4-5.0); ALBUMIN/GLOBULIN RATIO 0.5 (1.0-2.7); ALKALINE PHOSPHATASE 212 U/L (46-116); ANION GAP 10 mmol/L (5-15); ASPARTATE AMINO TRANSFERASE 953 U/L (15-37); BLOOD UREA NITROGEN 68 mg/dL (7-18); CARBON DIOXIDE 26 MMOL/L (21-32); CHLORIDE 99 MMOL/L (98-107); PHOSPHORUS 4.6 MG/DL (2.5-4.9); POTASSIUM 3.9 MMOL/L (3.5-5.1); SODIUM 135 MMOL/L (136-145)
[2017-09-03 06:29] LABS: CREATINE KINASE 18992 U/L (26-308)
--- NOTE | 2017-09-03 07:36 | Nephrology Progress Note ---
Assessment/Plan Assessment 1. Acute rhabdomyolysis.(anuric ) 2. Hypocalcemia. 3. Hyperkalemia. 4. Lactic acidosis. 5. Shock liver. 6. History of multiple drug use. Plan continue bicarbonate drip dialysis today monitoring renal function monitoring out put Subjective ROS Limited/Unobtainable: Yes Subjective intubated 5cc of urine out put over night no changes in MS Objective Objective Last 24 Hour Vital Signs Date Time Temp Pulse Resp B/P (MAP) Pulse Ox O2 Delivery O2 Flow Rate FiO2 09/03/17 07:11 88 20 40 09/03/17 07:00 89 20 113/67 (82) 97 09/03/17 06:30 92 20 108/66 (80) 96 09/03/17 06:00 20 09/03/17 06:00 96 20 107/64 (78) 97 09/03/17 05:30 102 20 113/64 (80) 97 09/03/17 05:00 20 09/03/17 05:00 99 20 153/99 (117) 97 09/03/17 04:42 106 20 40 09/03/17 04:30 109 16 153/99 (117) 99 09/03/17 04:05 113 09/03/17 04:05 40 09/03/17 04:03 Mechanical Ventilator 09/03/17 04:00 20 09/03/17 04:00 98.7 114 14 153/99 (117) 100 98.7 09/03/17 03:49 20 09/03/17 03:30 92 20 125/69 (87) 98 09/03/17 03:18 92 20 40 09/03/17 03:00 93 20 118/68 (85) 98 09/03/17 03:00 20 09/03/17 02:30 96 20 113/64 (80) 98 09/03/17 02:00 101 20 120/66 (84) 97 09/03/17 02:00 20 09/03/17 01:30 105 20 130/69 (89) 96 09/03/17 01:00 20 09/03/17 01:00 99.9 09/03/17 01:00 103 20 132/74 (93) 97 09/03/17 00:35 117 24 40 09/03/17 00:30 100.8 117 24 135/97 (110) 98 100.8 09/03/17 00:00 93 09/03/17 00:00 40 09/03/17 00:00 Mechanical Ventilator 09/03/17 00:00 20 09/03/17 00:00 93 20 125/82 (96) 99 09/02/17 23:54 100.8 09/02/17 23:30 92 12 134/69 (90) 98 09/02/17 23:16 90 20 40 09/02/17 23:00 88 20 127/77 (94) 100 09/02/17 23:00 12 09/02/17 22:30 87 20 133/74 (93) 100 09/02/17 22:00 20 09/02/17 22:00 87 20 131/76 (94) 100 09/02/17 21:30 86 20 128/71 (90) 100 09/02/17 21:18 89 20 40 09/02/17 21:06 20 09/02/17 21:00 88 20 128/72 (90) 99 09/02/17 20:30 90 19 141/80 (100) 99 09/02/17 20:00 89 20 119/66 (83) 98 09/02/17 20:00 40 09/02/17 20:00 89 09/02/17 20:00 20 09/02/17 20:00 Mechanical Ventilator 09/02/17 19:30 99.0 92 20 118/69 (85) 96 99.0 09/02/17 19:16 91 20 40 09/02/17 19:00 20 09/02/17 19:00 98 20 118/61 (80) 96 09/02/17 18:00 87 25 136/64 (88) 99 18 18:00 22 09/02/17 17:02 91 20 40 09/02/17 17:00 89 25 134/71 (92) 97 09/02/17 17:00 21 09/02/17 16:00 40 09/02/17 16:00 Mechanical Ventilator 09/02/17 16:00 99.4 87 20 116/68 (84) 99 99.4 09/02/17 16:00 22 09/02/17 16:00 92 09/02/17 15:15 86 20 40 09/02/17 15:00 21 7/23/18 15:00 87 25 125/73 (90) 99 09/02/17 14:00 89 24 124/78 (93) 98 09/02/17 14:00 21 09/02/17 13:04 86 20 40 09/02/17 13:00 21 09/02/17 13:00 92 21 131/78 (95) 99 09/02/17 12:00 103 09/02/17 12:00 Mechanical Ventilator 09/02/17 12:00 40 09/02/17 12:00 21 09/02/17 12:00 99.4 92 20 160/90 (113) 99 99.4 09/02/17 11:52 99.9 09/02/17 11:22 20 09/02/17 11:21 86 20 40 09/02/17 11:00 89 21 136/66 (89) 99 09/02/17 11:00 20 09/02/17 10:00 100 21 116/66 (83) 97 09/02/17 10:00 20 09/02/17 09:23 101.0 09/02/17 09:18 101.0 09/02/17 09:15 93 22 40 09/02/17 09:15 97 09/02/17 09:00 21 09/02/17 09:00 96 21 143/87 (105) 100 09/02/17 08:53 100.1 09/02/17 08:00 Mechanical Ventilator 09/02/17 08:00 20 09/02/17 08:00 103 09/02/17 08:00 40 09/02/17 08:00 99.6 90 20 124/68 (86) 99 99.6 09/02/17 07:40 89 16 40 Intake and Output 09/02/17 09/03/17 19:00 07:00 Intake Total 1530.0 ml 1142 ml Output Total 35 ml 5 ml Balance 1495.0 ml 1137 ml IV Total 1050.0 ml 942 ml Tube Feeding 480 ml 200 ml Output Urine Total 35 ml 5 ml # Bowel Movements 4 3 Laboratory Tests 09/02/17 09:15: Arterial Blood pH 7.378, Arterial Blood Partial Pressure CO2 41.2, Arterial Blood Partial Pressure O2 85.9, Arterial Blood HCO3 23.7, Arterial Blood Oxygen Saturation 96.5, Arterial Blood Base Excess -1.4, Miguel Test Positive 09/02/17 16:30: Urine Legionella Antigen [Pending] 09/03/17 05:00: White Blood Count 12.0H, Red Blood Count 3.19L, Hemoglobin 10.1L, Hematocrit 29.6L, Mean Corpuscular Volume 93, Mean Corpuscular Hemoglobin 31.7H, Mean Corpuscular Hemoglobin Concent 34.1, Red Cell Distribution Width 11.6, Platelet Count 165, Mean Platelet Volume 6.4L, Neutrophils (%) (Auto) 82.2H, Lymphocytes (%) (Auto) 4.8L, Monocytes (%) (Auto) 10.6H, Eosinophils (%) (Auto) 1.6, Basophils (%) (Auto) 0.7, Sodium Level 135L, Potassium Level 3.9, Chloride Level 99, Carbon Dioxide Level 26, Anion Gap 10, Blood Urea Nitrogen 68H, Creatinine 8.0H, Estimat Glomerular Filtration Rate 7.5, Glucose Level 111H, Lactic Acid Level 1.10, Calcium Level 8.0L, Phosphorus Level 4.6, Magnesium Level 2.6H, Total Bilirubin 1.0, Aspartate Amino Transf (AST/SGOT) 953H, Alanine Aminotransferase (ALT/SGPT) 716H, Alkaline Phosphatase 212H, Total Creatine Kinase 01260N, C-Reactive Protein, Quantitative 12.2H, Total Protein 5.4L, Albumin 1.8L, Globulin 3.6, Albumin/Globulin Ratio 0.5L Height (Feet): 5 Height (Inches): 8.00 Weight (Pounds): 194 Objective HEAD AND NECK: No JVP. No LAD. G-tube is in place. Head is atraumatic and normocephalic. LUNGS: He has decreased breathing sounds on the both sides. CARDIAC: Regular rate and rhythm. S1 and S2. No murmur. No rub. ABDOMEN: Soft. Bowel sounds positive. EXTREMITIES: No edema. No clubbing. No cyanosis. Aixa Veloz MD Sep 03, 2017 07:36
[2017-09-03] MEDS: Morphine Sulfate 4mg/ml Inj (IV USE ONLY) IVP PRN ×2 (08:52→20:26)
--- NOTE | 2017-09-03 09:59 | Pulmonolgy Critical Care Note ---
Critical Care - Asmt/Plan Problems: (1) Respiratory failure (2) Aspiration pneumonia (3) Rhabdomyolysis (4) LUCRECIA (acute kidney injury) (5) NSTEMI (non-ST elevated myocardial infarction) (6) Substance abuse Assessment/Plan: will use haldol to keep pt comfortable and extubate today Respiratory: monitor respiratory rate, adjust FIO2, CXR, ABG, weaning trial Cardiac: continue to monitor HR/BP Renal: F/U I&O Infectious Disease: check cultures, continue antibiotics Gastrointestinal: continue feedings/current rate Endocrine: monitor blood sugar, check HgA1C Neurologic: PRN Ativan Affect: PRN ativan Prophylaxis: Heparin Time Spent (Minutes): 40 Notes Reviewed: community center worker, renal Discussed with: nurses, block and case makermanager home - Objective Last 24 Hour Vital Signs Date Time Temp Pulse Resp B/P (MAP) Pulse Ox O2 Delivery O2 Flow Rate FiO2 09/03/17 09:25 129 23 40 09/03/17 09:00 131 31 144/64 (90) 98 09/03/17 08:57 35 09/03/17 08:30 130 28 156/54 (88) 94 09/03/17 08:03 40 09/03/17 08:02 97 09/03/17 08:00 98.9 91 19 132/81 (98) 98 98.9 09/03/17 08:00 40 09/03/17 07:30 84 20 113/66 (82) 97 09/03/17 07:11 88 20 40 09/03/17 07:00 89 20 113/67 (82) 97 09/03/17 06:30 92 20 108/66 (80) 96 09/03/17 06:00 20 09/03/17 06:00 96 20 107/64 (78) 97 09/03/17 05:30 102 20 113/64 (80) 97 09/03/17 05:00 20 09/03/17 05:00 99 20 153/99 (117) 97 09/03/17 04:42 106 20 40 09/03/17 04:30 109 16 153/99 (117) 99 09/03/17 04:05 113 09/03/17 04:05 40 09/03/17 04:03 Mechanical Ventilator 09/03/17 04:00 20 09/03/17 04:00 98.7 114 14 153/99 (117) 100 98.7 09/03/17 03:49 20 09/03/17 03:30 92 20 125/69 (87) 98 09/03/17 03:18 92 20 40 09/03/17 03:00 93 20 118/68 (85) 98 09/03/17 03:00 20 09/03/17 02:30 96 20 113/64 (80) 98 09/03/17 02:00 101 20 120/66 (84) 97 09/03/17 02:00 20 09/03/17 01:30 105 20 130/69 (89) 96 09/03/17 01:00 20 09/03/17 01:00 99.9 09/03/17 01:00 103 20 132/74 (93) 97 09/03/17 00:35 117 24 40 09/03/17 00:30 100.8 117 24 135/97 (110) 98 100.8 09/03/17 00:00 93 09/03/17 00:00 40 09/03/17 00:00 Mechanical Ventilator 09/03/17 00:00 20 09/03/17 00:00 93 20 125/82 (96) 99 09/02/17 23:54 100.8 09/02/17 23:30 92 12 134/69 (90) 98 09/02/17 23:16 90 20 40 09/02/17 23:00 88 20 127/77 (94) 100 09/02/17 23:00 12 09/02/17 22:30 87 20 133/74 (93) 100 09/02/17 22:00 20 09/02/17 22:00 87 20 131/76 (94) 100 09/02/17 21:30 86 20 128/71 (90) 100 09/02/17 21:18 89 20 40 09/02/17 21:06 20 09/02/17 21:00 88 20 128/72 (90) 99 09/02/17 20:30 90 19 141/80 (100) 99 09/02/17 20:00 89 20 119/66 (83) 98 09/02/17 20:00 40 09/02/17 20:00 89 09/02/17 20:00 20 09/02/17 20:00 Mechanical Ventilator 09/02/17 19:30 99.0 92 20 118/69 (85) 96 99.0 09/02/17 19:16 91 20 40 09/02/17 19:00 20 09/02/17 19:00 98 20 118/61 (80) 96 09/02/17 18:00 87 25 136/64 (88) 99 09/02/17 18:00 22 09/02/17 17:02 91 20 40 09/02/17 17:00 89 25 134/71 (92) 97 09/02/17 17:00 21 09/02/17 16:00 40 09/02/17 16:00 Mechanical Ventilator 09/02/17 16:00 99.4 87 20 116/68 (84) 99 99.4 09/02/17 16:00 22 09/02/17 16:00 92 09/02/17 15:15 86 20 40 09/02/17 15:00 21 09/02/17 15:00 87 25 125/73 (90) 99 09/02/17 14:00 89 24 124/78 (93) 98 09/02/17 14:00 21 09/02/17 13:04 86 20 40 09/02/17 13:00 21 09/02/17 13:00 92 21 131/78 (95) 99 09/02/17 12:00 103 09/02/17 12:00 Mechanical Ventilator 09/02/17 12:00 40 09/02/17 12:00 21 09/02/17 12:00 99.4 92 20 160/90 (113) 99 99.4 09/02/17 11:52 99.9 09/02/17 11:22 20 09/02/17 11:21 86 20 40 09/02/17 11:00 89 21 136/66 (89) 99 09/02/17 11:00 20 09/02/17 10:00 100 21 116/66 (83) 97 09/02/17 10:00 20 Status: obtunded Condition: critical HEENT: atraumatic Lungs: chest wall tender Heart: HR/BP stable Abdomen: non-tender, active bowel sounds Extremities: no C/C/E, edema Micro: Microbiology Date/Time Source Procedure Growth Status 09/02/17 17:20 Sputum Gram Stain Pending Resulted 09/02/17 17:20 Sputum Culture - Preliminary Staphylococcus Aureus Resulted Accucheck: 96 Critical Care - Subjective ROS Limited/Unobtainable: Yes Condition: critical FI02: 40 Vent Support Breath Rate: 20 Vent Support Mode: AC Vent Tidal Volume: 650 Sputum Amount: Small PEEP: 5.0 PIP: 46 Tube Feeding Amount: 0 I&O: Intake and Output 09/02/17 09/03/17 19:00 07:00 Intake Total 1530.0 ml 1142 ml Output Total 35 ml 8 ml Balance 1495.0 ml 1134 ml IV Total 1050.0 ml 942 ml Tube Feeding 480 ml 200 ml Output Urine Total 35 ml 8 ml # Bowel Movements 4 3 CXR: clear, tube in good position ET-Tube: 7.5 ET Position: 23 Arpita Andre MD Sep 03, 2017 09:59
[2017-09-03] MEDS ORDERED: Vancomycin 1gm/D5W 275ml IVPB ONE ×2 (10:00)
[2017-09-03] MEDS: Haloperidol Lactate 10 MG in D5W 55 ML IVPB PRN ×2 (10:09→22:57)
[2017-09-03] MEDS: Pantoprazole Inj IVP SCH ×2 (10:47→22:15)
[2017-09-03] MEDS: Heparin 5000 units/ml inj SUBQ SCH ×2 (10:47→22:18)
--- NOTE | 2017-09-03 12:21 | Diagnostic Imaging Report ---
Indication: Dyspnea Technique: One view of the chest Comparison: 09/02/2017 Findings: Stable satisfactory positions of endotracheal and nasogastric tubes. Stable satisfactory position right jugular temporary dialysis catheter. The lungs and pleural spaces are clear; previously demonstrated bilateral pulmonary edema has essentially resolved. Impression: Marked improvement of previously demonstrated bilateral pulmonary edema, over one day Stable tube and line positions as described
--- NOTE | 2017-09-03 14:50 | GI Progress Note ---
Assessment/Plan Problems: (1) Severe sepsis ICD Codes: A41.9 - Sepsis, unspecified organism; R65.20 - Severe sepsis without septic shock SNOMED: 60513919 (2) Rhabdomyolysis ICD Codes: M62.82 - Rhabdomyolysis SNOMED: 182341155 Qualifiers: Qualified Codes: T79.6XXA - Traumatic ischemia of muscle, initial encounter (3) Aspiration pneumonia ICD Codes: J69.0 - Pneumonitis due to inhalation of food and vomit SNOMED: 475406758 Qualifiers: Qualified Codes: J69.0 - Pneumonitis due to inhalation of food and vomit (4) Substance abuse ICD Codes: F19.10 - Other psychoactive substance abuse, uncomplicated SNOMED: 98754555 (5) Transaminitis ICD Codes: R74.0 - Nonspecific elevation of levels of transaminase and lactic acid dehydrogenase [LDH] SNOMED: 506731336, 820715633 Status: unchanged Status Narrative Discussed with Dr. Chavez. Assessment/Plan Hx of Hep A Hep C positive NGTFs fu labs, trend LFTs supportive care outpatient Hep C tx The patient was seen and examined at bedside and all new and available data was reviewed in the patients chart. I agree with the above findings, impression and plan. (Patient seen earlier today. Signature stamp does not reflect patient encounter time.). - Efrain Chavez MD Subjective Subjective limited Objective Last 24 Hour Vital Signs Date Time Temp Pulse Resp B/P (MAP) Pulse Ox O2 Delivery O2 Flow Rate FiO2 09/03/17 13:23 88 20 40 09/03/17 12:00 40 09/03/17 12:00 Mechanical Ventilator 09/03/17 11:49 88 20 40 09/03/17 10:30 20 09/03/17 10:15 20 09/03/17 10:00 20 09/03/17 09:45 20 09/03/17 09:30 20 09/03/17 09:30 40 09/03/17 09:25 129 23 40 09/03/17 09:00 20 09/03/17 09:00 131 31 144/64 (90) 98 09/03/17 08:57 35 09/03/17 08:30 130 28 156/54 (88) 94 09/03/17 08:03 40 09/03/17 08:02 97 09/03/17 08:00 Mechanical Ventilator 09/03/17 08:00 98.9 91 19 132/81 (98) 98 98.9 09/03/17 08:00 40 18 08:00 24 09/03/17 07:30 84 20 113/66 (82) 97 09/03/17 07:11 88 20 40 18 07:00 89 20 113/67 (82) 97 09/03/17 07:00 20 09/03/17 06:30 92 20 108/66 (80) 96 09/03/17 06:00 20 09/03/17 06:00 96 20 107/64 (78) 97 09/03/17 05:30 102 20 113/64 (80) 97 09/03/17 05:00 20 09/03/17 05:00 99 20 153/99 (117) 97 09/03/17 04:42 106 20 40 09/03/17 04:30 109 16 153/99 (117) 99 09/03/17 04:05 113 09/03/17 04:05 40 09/03/17 04:03 Mechanical Ventilator 09/03/17 04:00 20 09/03/17 04:00 98.7 114 14 153/99 (117) 100 98.7 09/03/17 03:49 20 09/03/17 03:30 92 20 125/69 (87) 98 09/03/17 03:18 92 20 40 09/03/17 03:00 93 20 118/68 (85) 98 18 03:00 20 09/03/17 02:30 96 20 113/64 (80) 98 09/03/17 02:00 101 20 120/66 (84) 97 18 02:00 20 18 01:30 105 20 130/69 (89) 96 18 01:00 20 09/03/17 01:00 99.9 09/03/17 01:00 103 20 132/74 (93) 97 18 00:35 117 24 40 09/03/17 00:30 100.8 117 24 135/97 (110) 98 100.8 09/03/17 00:00 93 09/03/17 00:00 40 09/03/17 00:00 Mechanical Ventilator 09/03/17 00:00 20 09/03/17 00:00 93 20 125/82 (96) 99 09/02/17 23:54 100.8 09/02/17 23:30 92 12 134/69 (90) 98 09/02/17 23:16 90 20 40 09/02/17 23:00 88 20 127/77 (94) 100 09/02/17 23:00 12 09/02/17 22:30 87 20 133/74 (93) 100 09/02/17 22:00 20 09/02/17 22:00 87 20 131/76 (94) 100 09/02/17 21:30 86 20 128/71 (90) 100 09/02/17 21:18 89 20 40 09/02/17 21:06 20 09/02/17 21:00 88 20 128/72 (90) 99 09/02/17 20:30 90 19 141/80 (100) 99 09/02/17 20:00 89 20 119/66 (83) 98 09/02/17 20:00 40 09/02/17 20:00 89 09/02/17 20:00 20 09/02/17 20:00 Mechanical Ventilator 09/02/17 19:30 99.0 92 20 118/69 (85) 96 99.0 09/02/17 19:16 91 20 40 09/02/17 19:00 20 09/02/17 19:00 98 20 118/61 (80) 96 09/02/17 18:00 87 25 136/64 (88) 99 09/02/17 18:00 22 09/02/17 17:02 91 20 40 09/02/17 17:00 89 25 134/71 (92) 97 09/02/17 17:00 21 09/02/17 16:00 40 09/02/17 16:00 Mechanical Ventilator 09/02/17 16:00 99.4 87 20 116/68 (84) 99 99.4 09/02/17 16:00 22 09/02/17 16:00 92 09/02/17 15:15 86 20 40 09/02/17 15:00 21 09/02/17 15:00 87 25 125/73 (90) 99 Intake and Output 18 09/03/17 19:00 07:00 Intake Total 1530.0 ml 1192 ml Output Total 35 ml 8 ml Balance 1495.0 ml 1184 ml IV Total 1050.0 ml 992 ml Tube Feeding 480 ml 200 ml Output Urine Total 35 ml 8 ml # Bowel Movements 4 3 Laboratory Tests Test 09/02/17 16:30 09/03/17 05:00 09/03/17 09:00 Urine Legionella Antigen Pending White Blood Count 12.0 K/UL (4.8-10.8) H Red Blood Count 3.19 M/UL (4.70-6.10) L Hemoglobin 10.1 G/DL (14.2-18.0) L Hematocrit 29.6 % (42.0-52.0) L Mean Corpuscular Volume 93 FL (80-99) Mean Corpuscular Hemoglobin 31.7 PG (27.0-31.0) H Mean Corpuscular Hemoglobin Concent 34.1 G/DL (32.0-36.0) Red Cell Distribution Width 11.6 % (11.6-14.8) Platelet Count 165 K/UL (150-450) Mean Platelet Volume 6.4 FL (6.5-10.1) L Neutrophils (%) (Auto) 82.2 % (45.0-75.0) H Lymphocytes (%) (Auto) 4.8 % (20.0-45.0) L Monocytes (%) (Auto) 10.6 % (1.0-10.0) H Eosinophils (%) (Auto) 1.6 % (0.0-3.0) Basophils (%) (Auto) 0.7 % (0.0-2.0) Sodium Level 135 MMOL/L (136-145) L Potassium Level 3.9 MMOL/L (3.5-5.1) Chloride Level 99 MMOL/L (98-107) Carbon Dioxide Level 26 MMOL/L (21-32) Anion Gap 10 mmol/L (5-15) Blood Urea Nitrogen 68 mg/dL (7-18) H Creatinine 8.0 MG/DL (0.55-1.30) H Estimat Glomerular Filtration Rate 7.5 mL/min (>60) Glucose Level 111 MG/DL (74-106) H Lactic Acid Level 1.10 mmol/L (0.4-2.0) Calcium Level 8.0 MG/DL (8.5-10.1) L Phosphorus Level 4.6 MG/DL (2.5-4.9) Magnesium Level 2.6 MG/DL (1.8-2.4) H Total Bilirubin 1.0 MG/DL (0.2-1.0) Aspartate Amino Transf (AST/SGOT) 953 U/L (15-37) H Alanine Aminotransferase (ALT/SGPT) 716 U/L (12-78) H Alkaline Phosphatase 212 U/L (46-116) H Total Creatine Kinase 52184 U/L (26-308) H C-Reactive Protein, Quantitative 12.2 mg/dL (0.00-0.90) H Total Protein 5.4 G/DL (6.4-8.2) L Albumin 1.8 G/DL (3.4-5.0) L Globulin 3.6 g/dL Albumin/Globulin Ratio 0.5 (1.0-2.7) L Arterial Blood pH 7.168 (7.350-7.450) Arterial Blood Partial Pressure CO2 70.5 mmHg (35.0-45.0) *H Arterial Blood Partial Pressure O2 59.5 mmHg (75.0-100.0) L Arterial Blood HCO3 25.0 mmol/L (22.0-26.0) Arterial Blood Oxygen Saturation 84.5 % (92.0-98.0) L Arterial Blood Base Excess -4.5 Miguel Test Positive Microbiology Date/Time Source Procedure Growth Status 09/02/17 17:20 Sputum Gram Stain - Final Resulted 09/02/17 17:20 Sputum Culture - Preliminary Staphylococcus Aureus Resulted Height (Feet): 5 Height (Inches): 8.00 Weight (Pounds): 194 General Appearance: no apparent distress Cardiovascular: normal rate Respiratory/Chest: normal breath sounds, no respiratory distress, other - intubated Abdominal Exam: normal bowel sounds, non tender, soft, other - NGT Extremities: non-tender Carlos Lopez UX RESEARCHER Sep 03, 2017 14:50
--- NOTE | 2017-09-03 15:51 | General Progress Note ---
Assessment/Plan Problem List: (1) Substance abuse ICD Codes: F19.10 - Other psychoactive substance abuse, uncomplicated SNOMED: 76195631 (2) Respiratory failure ICD Codes: J96.90 - Respiratory failure, unspecified, unspecified whether with hypoxia or hypercapnia SNOMED: 131097729 Qualifiers: Qualified Codes: J96.01 - Acute respiratory failure with hypoxia (3) Rhabdomyolysis ICD Codes: M62.82 - Rhabdomyolysis SNOMED: 883024211 Qualifiers: Qualified Codes: T79.6XXA - Traumatic ischemia of muscle, initial encounter (4) NSTEMI (non-ST elevated myocardial infarction) ICD Codes: I21.4 - Non-ST elevation (NSTEMI) myocardial infarction SNOMED: 002748753 (5) LUCRECIA (acute kidney injury) ICD Codes: N17.9 - Acute kidney failure, unspecified SNOMED: 19348150 Status: stable, progressing Assessment/Plan vent abx neuro psyc eval cbc bmp am extubating Subjective Constitutional: Reports: weakness Allergies: Coded Allergies: NO KNOWN ALLERGIES (Verified Allergy, Unknown, 09/02/17) All Systems: reviewed and negative except above Subjective intub alert in icu Objective Last 24 Hour Vital Signs Date Time Temp Pulse Resp B/P (MAP) Pulse Ox O2 Delivery O2 Flow Rate FiO2 09/03/17 15:44 97 Nasal Cannula 3.0 32 09/03/17 15:44 Nasal Cannula 3.0 32 09/03/17 15:30 Nasal Cannula 3.0 32 09/03/17 13:23 88 20 40 09/03/17 13:00 86 19 133/75 (94) 100 09/03/17 12:30 91 19 142/83 (102) 92 09/03/17 12:00 40 09/03/17 12:00 Mechanical Ventilator 09/03/17 12:00 99.0 85 20 133/78 (96) 90 99.0 09/03/17 11:49 88 20 40 09/03/17 11:30 86 20 132/72 (92) 89 09/03/17 11:00 87 20 117/79 (92) 93 09/03/17 10:30 20 09/03/17 10:30 93 20 103/64 (77) 100 09/03/17 10:15 20 09/03/17 10:00 99 20 104/58 (73) 99 7/2418 10:00 20 72418 09:45 20 72418 09:30 20 72418 09:30 111 20 96/50 (65) 93 18 09:30 40 724/18 09:25 129 23 40 18 09:00 20 18 09:00 131 31 144/64 (90) 98 18 08:57 35 18 08:30 130 28 156/54 (88) 94 18 08:03 40 18 08:02 97 09/03/17 08:00 Mechanical Ventilator 09/03/17 08:00 98.9 91 19 132/81 (98) 98 98.9 09/03/17 08:00 40 18 08:00 24 09/03/17 07:30 84 20 113/66 (82) 97 18 07:11 88 20 40 09/03/17 07:00 89 20 113/67 (82) 97 18 07:00 20 18 06:30 92 20 108/66 (80) 96 18 06:00 20 18 06:00 96 20 107/64 (78) 97 18 05:30 102 20 113/64 (80) 97 18 05:00 20 18 05:00 99 20 153/99 (117) 97 18 04:42 106 20 40 18 04:30 109 16 153/99 (117) 99 18 04:05 113 18 04:05 40 18 04:03 Mechanical Ventilator 09/03/17 04:00 20 18 04:00 98.7 114 14 153/99 (117) 100 98.7 18 03:49 20 18 03:30 92 20 125/69 (87) 98 72418 03:18 92 20 40 18 03:00 93 20 118/68 (85) 98 18 03:00 20 18 02:30 96 20 113/64 (80) 98 7/24/18 02:00 101 20 120/66 (84) 97 09/03/17 02:00 20 09/03/17 01:30 105 20 130/69 (89) 96 09/03/17 01:00 20 09/03/17 01:00 99.9 09/03/17 01:00 103 20 132/74 (93) 97 09/03/17 00:35 117 24 40 09/03/17 00:30 100.8 117 24 135/97 (110) 98 100.8 09/03/17 00:00 93 09/03/17 00:00 40 09/03/17 00:00 Mechanical Ventilator 09/03/17 00:00 20 09/03/17 00:00 93 20 125/82 (96) 99 09/02/17 23:54 100.8 09/02/17 23:30 92 12 134/69 (90) 98 09/02/17 23:16 90 20 40 09/02/17 23:00 88 20 127/77 (94) 100 09/02/17 23:00 12 09/02/17 22:30 87 20 133/74 (93) 100 09/02/17 22:00 20 09/02/17 22:00 87 20 131/76 (94) 100 09/02/17 21:30 86 20 128/71 (90) 100 09/02/17 21:18 89 20 40 09/02/17 21:06 20 09/02/17 21:00 88 20 128/72 (90) 99 18 20:30 90 19 141/80 (100) 99 09/02/17 20:00 89 20 119/66 (83) 98 18 20:00 40 18 20:00 89 09/02/17 20:00 20 09/02/17 20:00 Mechanical Ventilator 09/02/17 19:30 99.0 92 20 118/69 (85) 96 99.0 09/02/17 19:16 91 20 40 09/02/17 19:00 20 09/02/17 19:00 98 20 118/61 (80) 96 09/02/17 18:00 87 25 136/64 (88) 99 09/02/17 18:00 22 09/02/17 17:02 91 20 40 09/02/17 17:00 89 25 134/71 (92) 97 09/02/17 17:00 21 09/02/17 16:00 40 09/02/17 16:00 Mechanical Ventilator 09/02/17 16:00 99.4 87 20 116/68 (84) 99 99.4 09/02/17 16:00 22 09/02/17 16:00 92 Intake and Output 09/02/17 09/03/17 19:00 07:00 Intake Total 1530.0 ml 1192 ml Output Total 35 ml 8 ml Balance 1495.0 ml 1184 ml IV Total 1050.0 ml 992 ml Tube Feeding 480 ml 200 ml Output Urine Total 35 ml 8 ml # Bowel Movements 4 3 Laboratory Tests 09/02/17 16:30: Urine Legionella Antigen [Pending] 09/03/17 05:00: White Blood Count 12.0H, Red Blood Count 3.19L, Hemoglobin 10.1L, Hematocrit 29.6L, Mean Corpuscular Volume 93, Mean Corpuscular Hemoglobin 31.7H, Mean Corpuscular Hemoglobin Concent 34.1, Red Cell Distribution Width 11.6, Platelet Count 165, Mean Platelet Volume 6.4L, Neutrophils (%) (Auto) 82.2H, Lymphocytes (%) (Auto) 4.8L, Monocytes (%) (Auto) 10.6H, Eosinophils (%) (Auto) 1.6, Basophils (%) (Auto) 0.7, Sodium Level 135L, Potassium Level 3.9, Chloride Level 99, Carbon Dioxide Level 26, Anion Gap 10, Blood Urea Nitrogen 68H, Creatinine 8.0H, Estimat Glomerular Filtration Rate 7.5, Glucose Level 111H, Lactic Acid Level 1.10, Calcium Level 8.0L, Phosphorus Level 4.6, Magnesium Level 2.6H, Total Bilirubin 1.0, Aspartate Amino Transf (AST/SGOT) 953H, Alanine Aminotransferase (ALT/SGPT) 716H, Alkaline Phosphatase 212H, Total Creatine Kinase 09897Y, C-Reactive Protein, Quantitative 12.2H, Total Protein 5.4L, Albumin 1.8L, Globulin 3.6, Albumin/Globulin Ratio 0.5L 09/03/17 09:00: Arterial Blood pH 7.168*L, Arterial Blood Partial Pressure CO2 70.5*H, Arterial Blood Partial Pressure O2 59.5L, Arterial Blood HCO3 25.0, Arterial Blood Oxygen Saturation 84.5L, Arterial Blood Base Excess -4.5, Miguel Test Positive Height (Feet): 5 Height (Inches): 8.00 Weight (Pounds): 194 General Appearance: alert EENT: normal ENT inspection Neck: normal alignment Cardiovascular: normal peripheral pulses, normal rate, regular rhythm Respiratory/Chest: chest wall non-tender, lungs clear, normal breath sounds Abdomen: normal bowel sounds, non tender, soft Extremities: normal inspection Edema: no edema noted Arm (L), no edema noted Arm (R), no edema noted Leg (L), no edema noted Leg (R), no edema noted Pedal (L), no edema noted Pedal (R), no edema noted Generalized Neurologic: motor weakness Skin: normal pigmentation, warm/dry Reid Anaya DO Sep 03, 2017 15:51
--- NOTE | 2017-09-03 16:30 | Infectious Diseases Prog Note ---
Assessment/Plan Assessment/Plan Assessment: Shock, SP Aspiration PNA -CXR 09/03: Marked improvement of previously demonstrated bilateral pulmonary edema, over one day -CXR:More consolidated areas within the diffuse airspace opacity within the right lung and now possible right pleural effusion. The patient is rotated to the right. Interval increase in patchy left perihilar airspace opacities. May represent component of pulmonary edema or aspiration pneumonitis. -sp cx normal ann; repeat sp cx S.aureus Rule out sepsis -u/a wbc 5-10, nit neg, leuk +1; cx neg -Bcx NTD -2d Echo (limited but no vegetations seen) Drug overdose -UDS + opiates, amphetamines, THC, cocaine -+empty heroin needles (found on hotel room) Multiorgan failure -LUCRECIA, worsening- on HD -Transaminitis, worse (shock liver) -VDRF (airway protection)- now extubaetd 09/03 Lactic acidosis; resolved Rhabdomyolisis Pancreatitis- drug induced -neg alcohol levels Encephalopathy- 2ry to above- r.o ischemia, r/o abscess (fever, IVDA +); much improved -CT head 08/29: Limited exam due to motion artifact. No gross acute intracranial bleed or mass effect Hep C +; VL pending -r/o chirrosis, malignancy -Hep A and B immune Plan: -Continue empiric IV Vanco # 6 pending S. aureus sensins and continue IV Azithromycin #2 for atypicals/legionella coverage -d/c Zosyn #6 -f/u cx ,legionella ag urine -f/u Brain MRI to eval for ischemia and/or abscess (+persistent fevers, +IVDA) -if persistent fevers and neg brain MRI and cultures may need KATELYN -Monitor CBC/CMP, temperatures -ICU care/support -aspiration precautions -Neuro,c ardio, renal, GI f/u -f/u Abd US, vd uplex Discussed with RN and mom at bedside. Subjective Allergies: Coded Allergies: NO KNOWN ALLERGIES (Verified Allergy, Unknown, 09/02/17) Subjective Tm 100.8 WBC improving repeat Bcx p extubated, now on 3L more awake, nodding to questions and following command Objective Vital Signs Last 24 Hour Vital Signs Date Time Temp Pulse Resp B/P (MAP) Pulse Ox O2 Delivery O2 Flow Rate FiO2 7/24/18 15:44 97 Nasal Cannula 3.0 32 18 15:44 Nasal Cannula 3.0 32 718 15:30 Nasal Cannula 3.0 32 18 13:23 88 20 40 18 13:00 86 19 133/75 (94) 100 7 12:30 91 19 142/83 (102) 92 09/03/17 12:00 40 09/03/17 12:00 Mechanical Ventilator 09/03/17 12:00 99.0 85 20 133/78 (96) 90 99.0 09/03/17 11:49 88 20 40 09/03/17 11:30 86 20 132/72 (92) 89 09/03/17 11:00 87 20 117/79 (92) 93 09/03/17 10:30 20 09/03/17 10:30 93 20 103/64 (77) 100 09/03/17 10:15 20 09/03/17 10:00 99 20 104/58 (73) 99 09/03/17 10:00 20 09/03/17 09:45 20 18 09:30 20 18 09:30 111 20 96/50 (65) 93 18 09:30 40 09/03/17 09:25 129 23 40 09/03/17 09:00 20 09/03/17 09:00 131 31 144/64 (90) 98 09/03/17 08:57 35 09/03/17 08:30 130 28 156/54 (88) 94 09/03/17 08:03 40 09/03/17 08:02 97 09/03/17 08:00 Mechanical Ventilator 09/03/17 08:00 98.9 91 19 132/81 (98) 98 98.9 09/03/17 08:00 40 18 08:00 24 09/03/17 07:30 84 20 113/66 (82) 97 18 07:11 88 20 40 18 07:00 89 20 113/67 (82) 97 18 07:00 20 09/03/17 06:30 92 20 108/66 (80) 96 09/03/17 06:00 20 09/03/17 06:00 96 20 107/64 (78) 97 7/24/18 05:30 102 20 113/64 (80) 97 18 05:00 20 09/03/17 05:00 99 20 153/99 (117) 97 09/03/17 04:42 106 20 40 18 04:30 109 16 153/99 (117) 99 18 04:05 113 09/03/17 04:05 40 09/03/17 04:03 Mechanical Ventilator 09/03/17 04:00 20 09/03/17 04:00 98.7 114 14 153/99 (117) 100 98.7 09/03/17 03:49 20 09/03/17 03:30 92 20 125/69 (87) 98 09/03/17 03:18 92 20 40 09/03/17 03:00 93 20 118/68 (85) 98 09/03/17 03:00 20 09/03/17 02:30 96 20 113/64 (80) 98 09/03/17 02:00 101 20 120/66 (84) 97 09/03/17 02:00 20 09/03/17 01:30 105 20 130/69 (89) 96 18 01:00 20 09/03/17 01:00 99.9 09/03/17 01:00 103 20 132/74 (93) 97 09/03/17 00:35 117 24 40 09/03/17 00:30 100.8 117 24 135/97 (110) 98 100.8 09/03/17 00:00 93 09/03/17 00:00 40 09/03/17 00:00 Mechanical Ventilator 09/03/17 00:00 20 09/03/17 00:00 93 20 125/82 (96) 99 09/02/17 23:54 100.8 09/02/17 23:30 92 12 134/69 (90) 98 09/02/17 23:16 90 20 40 09/02/17 23:00 88 20 127/77 (94) 100 18 23:00 12 09/02/17 22:30 87 20 133/74 (93) 100 18 22:00 20 09/02/17 22:00 87 20 131/76 (94) 100 09/02/17 21:30 86 20 128/71 (90) 100 09/02/17 21:18 89 20 40 09/02/17 21:06 20 09/02/17 21:00 88 20 128/72 (90) 99 09/02/17 20:30 90 19 141/80 (100) 99 09/02/17 20:00 89 20 119/66 (83) 98 09/02/17 20:00 40 09/02/17 20:00 89 09/02/17 20:00 20 09/02/17 20:00 Mechanical Ventilator 09/02/17 19:30 99.0 92 20 118/69 (85) 96 99.0 09/02/17 19:16 91 20 40 09/02/17 19:00 20 09/02/17 19:00 98 20 118/61 (80) 96 09/02/17 18:00 87 25 136/64 (88) 99 09/02/17 18:00 22 09/02/17 17:02 91 20 40 09/02/17 17:00 89 25 134/71 (92) 97 09/02/17 17:00 21 Height (Feet): 5 Height (Inches): 8.00 Weight (Pounds): 194 Objective General: intubated, restless HEENT: ETT in place Heart: RRR, no murmurs Lungs: CTA x2 ABD: S+D, ND, BS+ Extremity no edema or cellulitis Microbiology Date/Time Source Procedure Growth Status 09/02/17 17:20 Sputum Gram Stain - Final Resulted 09/02/17 17:20 Sputum Culture - Preliminary Staphylococcus Aureus Resulted Laboratory Tests Test 09/02/17 16:30 09/03/17 05:00 09/03/17 09:00 Urine Legionella Antigen Pending White Blood Count 12.0 K/UL (4.8-10.8) H Red Blood Count 3.19 M/UL (4.70-6.10) L Hemoglobin 10.1 G/DL (14.2-18.0) L Hematocrit 29.6 % (42.0-52.0) L Mean Corpuscular Volume 93 FL (80-99) Mean Corpuscular Hemoglobin 31.7 PG (27.0-31.0) H Mean Corpuscular Hemoglobin Concent 34.1 G/DL (32.0-36.0) Red Cell Distribution Width 11.6 % (11.6-14.8) Platelet Count 165 K/UL (150-450) Mean Platelet Volume 6.4 FL (6.5-10.1) L Neutrophils (%) (Auto) 82.2 % (45.0-75.0) H Lymphocytes (%) (Auto) 4.8 % (20.0-45.0) L Monocytes (%) (Auto) 10.6 % (1.0-10.0) H Eosinophils (%) (Auto) 1.6 % (0.0-3.0) Basophils (%) (Auto) 0.7 % (0.0-2.0) Sodium Level 135 MMOL/L (136-145) L Potassium Level 3.9 MMOL/L (3.5-5.1) Chloride Level 99 MMOL/L (98-107) Carbon Dioxide Level 26 MMOL/L (21-32) Anion Gap 10 mmol/L (5-15) Blood Urea Nitrogen 68 mg/dL (7-18) H Creatinine 8.0 MG/DL (0.55-1.30) H Estimat Glomerular Filtration Rate 7.5 mL/min (>60) Glucose Level 111 MG/DL (74-106) H Lactic Acid Level 1.10 mmol/L (0.4-2.0) Calcium Level 8.0 MG/DL (8.5-10.1) L Phosphorus Level 4.6 MG/DL (2.5-4.9) Magnesium Level 2.6 MG/DL (1.8-2.4) H Total Bilirubin 1.0 MG/DL (0.2-1.0) Aspartate Amino Transf (AST/SGOT) 953 U/L (15-37) H Alanine Aminotransferase (ALT/SGPT) 716 U/L (12-78) H Alkaline Phosphatase 212 U/L (46-116) H Total Creatine Kinase 91026 U/L (26-308) H C-Reactive Protein, Quantitative 12.2 mg/dL (0.00-0.90) H Total Protein 5.4 G/DL (6.4-8.2) L Albumin 1.8 G/DL (3.4-5.0) L Globulin 3.6 g/dL Albumin/Globulin Ratio 0.5 (1.0-2.7) L Arterial Blood pH 7.168 (7.350-7.450) Arterial Blood Partial Pressure CO2 70.5 mmHg (35.0-45.0) *H Arterial Blood Partial Pressure O2 59.5 mmHg (75.0-100.0) L Arterial Blood HCO3 25.0 mmol/L (22.0-26.0) Arterial Blood Oxygen Saturation 84.5 % (92.0-98.0) L Arterial Blood Base Excess -4.5 Miguel Test Positive Current Medications Medications (Trade) Dose Ordered Sig/Krystyna Route PRN Reason Start Time Stop Time Status Last Admin Dose Admin Acetaminophen (Tylenol) 650 mg Q4H PRN ORAL Fever (temp>100.5F) 08/29/17 14:45 09/28/17 14:44 09/02/17 23:54 Azithromycin 500 mg/Dextrose 275 ml @ 275 mls/hr Q24HRS IV 09/02/17 17:00 09/08/17 17:59 09/02/17 18:06 Chlorhexidine Gluconate (Jyotsna-Hex 2%) 1 applic DAILY@2000 TOPIC 08/30/17 20:00 09/29/17 19:59 09/02/17 21:04 Dextrose (Dextrose 50%) 25 ml STAT PRN IV Hypoglycemia 08/29/17 14:45 09/28/17 14:44 Dextrose (Dextrose 50%) 50 ml STAT PRN IV Hypoglycemia 08/29/17 16:00 09/28/17 15:59 Fentanyl Citrate 1000 mcg/Sodium Chloride 100 ml @ 0 mls/hr Q24H IV 08/31/17 11:00 09/07/17 10:59 09/03/17 08:57 Haloperidol Lactate 10 mg/ Dextrose 57 ml @ 112 mls/hr Q1H PRN IVPB SEVERE AGITATION 09/03/17 10:05 09/29/17 10:04 09/03/17 10:09 Heparin Sodium (Porcine) (Heparin 5000 units/ml) 5,000 units EVERY 12 HOURS SUBQ 08/29/17 21:00 09/28/17 20:59 09/03/17 10:47 Midazolam HCl 100 ml @ 0 mls/hr Q24H PRN IVPB See protocol text 08/29/17 18:30 09/05/17 18:29 09/01/17 08:03 Morphine Sulfate (Morphine Sulfate) 4 mg Q4H PRN IVP Severe Pain (Pain Scale 7-10) 08/29/17 14:45 09/05/17 14:44 09/03/17 08:52 Nitroglycerin (Ntg) 0.4 mg Q5M PRN SL Prn Chest Pain 08/29/17 14:45 09/28/17 14:44 Pantoprazole (Protonix) 40 mg EVERY 12 HOURS IVP 08/29/17 21:00 09/28/17 20:59 09/03/17 10:47 Piperacillin Sod/ Tazobactam Sod 2.25 gm/Dextrose 55 ml @ 110 mls/hr Q8HR IV 09/02/17 10:00 09/07/17 09:59 09/03/17 14:55 Sodium Bicarbonate 50 ml/ Dextrose/Sodium Chloride 1,000 ml @ 50 mls/hr Q20H IV 09/01/17 14:00 09/30/17 13:59 09/03/17 05:22 Vancomycin HCl (Vanco rx to dose) 1 ea DAILY PRN MISC Per rx protocol 08/29/17 16:45 09/28/17 16:44 Krsytal Romero M.D. Sep 03, 2017 16:30
--- NOTE | 2017-09-03 17:56 | Neurology Progress Note ---
Interim History Interim History Interim History Mr. Stover feels better today. He has been extubated. He could have been unconscious for ~ 12 hours before he was found. He is undergoing HD now. He says he was using alcohol, meth, cocaine and heroin prior to his hospitalization. He continues to be encephalopathic. Review of Systems Neuro Review of Systems Benign. Objective Physical Exam Last Vital Signs Date Time Temp Pulse Resp B/P (MAP) Pulse Ox O2 Delivery O2 Flow Rate FiO2 09/03/17 17:00 17 09/03/17 16:00 3.0 09/03/17 16:00 Mechanical Ventilator Nasal Cannula 09/03/17 15:44 97 32 09/03/17 13:23 88 09/03/17 13:00 133/75 (94) 09/03/17 12:00 99.0 99.0 Laboratory Tests Test 09/03/17 05:00 09/03/17 09:00 White Blood Count 12.0 K/UL (4.8-10.8) H Red Blood Count 3.19 M/UL (4.70-6.10) L Hemoglobin 10.1 G/DL (14.2-18.0) L Hematocrit 29.6 % (42.0-52.0) L Mean Corpuscular Volume 93 FL (80-99) Mean Corpuscular Hemoglobin 31.7 PG (27.0-31.0) H Mean Corpuscular Hemoglobin Concent 34.1 G/DL (32.0-36.0) Red Cell Distribution Width 11.6 % (11.6-14.8) Platelet Count 165 K/UL (150-450) Mean Platelet Volume 6.4 FL (6.5-10.1) L Neutrophils (%) (Auto) 82.2 % (45.0-75.0) H Lymphocytes (%) (Auto) 4.8 % (20.0-45.0) L Monocytes (%) (Auto) 10.6 % (1.0-10.0) H Eosinophils (%) (Auto) 1.6 % (0.0-3.0) Basophils (%) (Auto) 0.7 % (0.0-2.0) Sodium Level 135 MMOL/L (136-145) L Potassium Level 3.9 MMOL/L (3.5-5.1) Chloride Level 99 MMOL/L (98-107) Carbon Dioxide Level 26 MMOL/L (21-32) Anion Gap 10 mmol/L (5-15) Blood Urea Nitrogen 68 mg/dL (7-18) H Creatinine 8.0 MG/DL (0.55-1.30) H Estimat Glomerular Filtration Rate 7.5 mL/min (>60) Glucose Level 111 MG/DL (74-106) H Lactic Acid Level 1.10 mmol/L (0.4-2.0) Calcium Level 8.0 MG/DL (8.5-10.1) L Phosphorus Level 4.6 MG/DL (2.5-4.9) Magnesium Level 2.6 MG/DL (1.8-2.4) H Total Bilirubin 1.0 MG/DL (0.2-1.0) Aspartate Amino Transf (AST/SGOT) 953 U/L (15-37) H Alanine Aminotransferase (ALT/SGPT) 716 U/L (12-78) H Alkaline Phosphatase 212 U/L (46-116) H Total Creatine Kinase 52388 U/L (26-308) H C-Reactive Protein, Quantitative 12.2 mg/dL (0.00-0.90) H Total Protein 5.4 G/DL (6.4-8.2) L Albumin 1.8 G/DL (3.4-5.0) L Globulin 3.6 g/dL Albumin/Globulin Ratio 0.5 (1.0-2.7) L Arterial Blood pH 7.168 (7.350-7.450) Arterial Blood Partial Pressure CO2 70.5 mmHg (35.0-45.0) *H Arterial Blood Partial Pressure O2 59.5 mmHg (75.0-100.0) L Arterial Blood HCO3 25.0 mmol/L (22.0-26.0) Arterial Blood Oxygen Saturation 84.5 % (92.0-98.0) L Arterial Blood Base Excess -4.5 Miguel Test Positive Neurologic Exam Objective PHYSICAL EXAMINATION: GENERAL: He is a well-developed, well-nourished, gentleman, lying in an ICU bed undergoing HD. HEAD: Normocephalic and atraumatic. EENT: Examination benign. NECK: No neck rigidity was observed. NEUROLOGIC EXAMINATION: MENTAL STATUS EXAMINATION: He was awake but not completely alert. He was oriented to self and month only. Further mental status testing was impossible. SPEECH: He had no dysarthria. LANGUAGE: He had no aphasia. CRANIAL NERVE EXAMINATION: II: The visual dinh were intact on confrontation testing. III, IV & : The external ocular movements were present on oculocephalic maneuvers. The pupils were 3 mm in diameter and reactive sluggishly to light. V & VII: The corneal reflexes were present and equally brisk bilaterally. VIII: He did respond to sounds and had no nystagmus. IX & X: The gag reflex was subdued on manipulating the endotracheal tube. XI: The sternocleidomastoids and trapezii could not be tested adequately. XII: Could not be tested. MOTOR SYSTEM: The tone was normal in all four extremities. Examination of muscle mass revealed no focal wasting. Examination of power revealed G 5/5 power in all muscle groups. SENSORY EXAMINATION: He responded appropriately to light touch. REFLEXES: Trace+ and bilaterally symmetrical at the biceps, triceps, brachioradialis, and knees, 0 at both ankles. The plantar responses were flexor bilaterally. COORDINATION: He performed well on finger to nose testing. STANCE & GAIT: Could not be tested. Impression/Recommendations Diagnostic Impression 1. Mr. Enoch Stover is a 37-year-old, gentleman, of unknown handedness, who was found unconscious in a hotel room on 08/29/2017 after he had used multiple drugs. He was found to be possibly febrile, hypoglycemic, and breathing rapidly. Since then, he has been hospitalized and treated for sepsis. 2. He feels better today. He has been extubated. He could have been unconscious for ~ 12 hours before he was found. He is undergoing HD now. He says he was using alcohol, meth, cocaine and heroin prior to his hospitalization. He continues to be encephalopathic. 3. On neurological examination, at this time, he is awake but not completely alert. He is oriented to self and month only. Further mental status testing is impossible. His speech and language are normal. His cranial nerves are also functioning normally. His motor function is good and his sensations preserved. His deep tendon reflexes are diminished but his plntar responses are flexor. He also does not demonstrate any definite focal or lateralizing neurological findings. 4. The CT scan of the brain performed on 08/29/2017 is benign for acute pathology. 5. Laboratory data obtained thus far revealed, on admission, his hemoglobin was elevated to 18.4, his WBC was normal at 8,500, but since then his WBCs have peaked to 17,200. His chemistry panel on admission revealed BUN elevated to 31 , creatinine elevated to 3.6, lactic acid elevated to 5.5, bilirubin elevated at 1.2, AST elevated at 478, ALT elevated to 159, CK elevated to greater than 10 ,000, troponin elevated at 1.01, BNP elevated to 2143. His urine toxicology screen was positive for opiates, amphetamines, cocaine, and marijuana. His INR was elevated at 1.2. His TSH is elevated at 4.72 6. The patient's history, neurological examination, laboratory data, and imaging studies are most compatible with an altered mental state due to a toxic metabolic encephalopathy. 7. The most likely etiology for the encephalopathy is the sepsis, possibly a period of hypoglycemia and ongoing multiple metabolic imbalances and the toxic imbalances. In addition the present fentanyl use is also causing a significant encephalopathy. 8. His encephalopathy is improving. Recommendations 1.Continue present management. 2. Try to wean the patient off mind-altering drugs. 3. Continue aggressive treatment of the patient's sepsis. 4. Aggressive management of toxic/metabolic imbalances. 5. Check T3 and T4 as his TSH is elevated. 6. Observe closely. Chris Ricketts M.D., M.S.P.CHRIS GARDINER Sep 03, 2017 17:56
--- NOTE | 2017-09-03 19:44 | Cardiology Progress Note ---
Assessment/Plan Assessment/Plan 1. Sinus tachycardia, likely due to SIRS, increased adrenergic flow in response to cocaine and amphetamine abuse. Continue hydration. 2. LUCRECIA due to rhabdomyolysis. 3. Shock liver 4. Acute pancreatitis with systemic inflammatory response disease. 5. Elevated troponin I level likely myocarditis, sepsis, or due to shock. Subjective Subjective Sinus rhythm at 83. Extubated now on NC oxygen. Objective Last 24 Hour Vital Signs Date Time Temp Pulse Resp B/P (MAP) Pulse Ox O2 Delivery O2 Flow Rate FiO2 09/03/17 19:33 Nasal Cannula 3.0 32 09/03/17 19:00 17 09/03/17 18:00 83 19 124/67 (86) 95 09/03/17 18:00 17 09/03/17 17:30 89 19 144/80 (101) 95 09/03/17 17:00 17 09/03/17 17:00 88 18 141/77 (98) 96 09/03/17 16:30 92 19 132/73 (92) 97 09/03/17 16:30 17 09/03/17 16:00 97 09/03/17 16:00 3.0 09/03/17 16:00 Mechanical Ventilator 3.0 Nasal Cannula 09/03/17 16:00 98.9 96 22 138/85 (102) 96 98.9 09/03/17 15:44 97 Nasal Cannula 3.0 32 09/03/17 15:44 Nasal Cannula 3.0 32 09/03/17 15:30 Nasal Cannula 3.0 32 09/03/17 15:30 3.0 09/03/17 15:25 Mechanical Ventilator 15.0 40 09/03/17 15:00 89 20 142/88 (106) 100 09/03/17 14:00 85 20 134/77 (96) 100 09/03/17 13:30 85 20 140/75 (96) 100 09/03/17 13:23 88 20 40 09/03/17 13:00 86 19 133/75 (94) 100 09/03/17 12:30 91 19 142/83 (102) 92 09/03/17 12:00 40 09/03/17 12:00 Mechanical Ventilator 09/03/17 12:00 113 09/03/17 12:00 99.0 85 20 133/78 (96) 90 99.0 7/24/18 11:49 88 20 40 7/24/18 11:30 86 20 132/72 (92) 89 7/24/18 11:00 87 20 117/79 (92) 93 [id number] 10:30 20 7/24/18 10:30 93 20 103/64 (77) 100 7/2418 10:15 20 718 10:00 99 20 104/58 (73) 99 718 10:00 20 18 09:45 20 72418 09:30 20 724/18 09:30 111 20 96/50 (65) 93 718 09:30 40 718 09:25 129 23 40 09/03/17 09:00 20 18 09:00 131 31 144/64 (90) 98 718 08:57 35 09/03/17 08:30 130 28 156/54 (88) 94 09/03/17 08:03 40 09/03/17 08:02 97 09/03/17 08:00 Mechanical Ventilator 09/03/17 08:00 109 18 08:00 98.9 91 19 132/81 (98) 98 98.9 18 08:00 40 18 08:00 24 09/03/17 07:30 84 20 113/66 (82) 97 724/18 07:11 88 20 40 18 07:00 89 20 113/67 (82) 97 718 07:00 20 18 06:30 92 20 108/66 (80) 96 18 06:00 20 18 06:00 96 20 107/64 (78) 97 718 05:30 102 20 113/64 (80) 97 718 05:00 20 18 05:00 99 20 153/99 (117) 97 718 04:42 106 20 40 718 04:30 109 16 153/99 (117) 99 724/18 04:05 113 18 04:05 40 18 04:03 Mechanical Ventilator 09/03/17 04:00 20 18 04:00 98.7 114 14 153/99 (117) 100 98.7 09/03/17 03:49 20 09/03/17 03:30 92 20 125/69 (87) 98 09/03/17 03:18 92 20 40 09/03/17 03:00 93 20 118/68 (85) 98 09/03/17 03:00 20 09/03/17 02:30 96 20 113/64 (80) 98 09/03/17 02:00 101 20 120/66 (84) 97 09/03/17 02:00 20 09/03/17 01:30 105 20 130/69 (89) 96 09/03/17 01:00 20 09/03/17 01:00 99.9 09/03/17 01:00 103 20 132/74 (93) 97 09/03/17 00:35 117 24 40 09/03/17 00:30 100.8 117 24 135/97 (110) 98 100.8 09/03/17 00:00 93 09/03/17 00:00 40 09/03/17 00:00 Mechanical Ventilator 09/03/17 00:00 20 09/03/17 00:00 93 20 125/82 (96) 99 09/02/17 23:54 100.8 09/02/17 23:30 92 12 134/69 (90) 98 09/02/17 23:16 90 20 40 09/02/17 23:00 88 20 127/77 (94) 100 09/02/17 23:00 12 09/02/17 22:30 87 20 133/74 (93) 100 09/02/17 22:00 20 09/02/17 22:00 87 20 131/76 (94) 100 09/02/17 21:30 86 20 128/71 (90) 100 09/02/17 21:18 89 20 40 09/02/17 21:06 20 09/02/17 21:00 88 20 128/72 (90) 99 09/02/17 20:30 90 19 141/80 (100) 99 09/02/17 20:00 89 20 119/66 (83) 98 09/02/17 20:00 40 09/02/17 20:00 89 09/02/17 20:00 20 09/02/17 20:00 Mechanical Ventilator Intake and Output 09/02/17 09/03/17 19:00 07:00 Intake Total 1530.0 ml 1192 ml Output Total 35 ml 8 ml Balance 1495.0 ml 1184 ml IV Total 1050.0 ml 992 ml Tube Feeding 480 ml 200 ml Output Urine Total 35 ml 8 ml # Bowel Movements 4 3 2D Echo: LVEF 55-60% Laboratory Tests Test 09/03/17 05:00 09/03/17 09:00 White Blood Count 12.0 K/UL (4.8-10.8) H Red Blood Count 3.19 M/UL (4.70-6.10) L Hemoglobin 10.1 G/DL (14.2-18.0) L Hematocrit 29.6 % (42.0-52.0) L Mean Corpuscular Volume 93 FL (80-99) Mean Corpuscular Hemoglobin 31.7 PG (27.0-31.0) H Mean Corpuscular Hemoglobin Concent 34.1 G/DL (32.0-36.0) Red Cell Distribution Width 11.6 % (11.6-14.8) Platelet Count 165 K/UL (150-450) Mean Platelet Volume 6.4 FL (6.5-10.1) L Neutrophils (%) (Auto) 82.2 % (45.0-75.0) H Lymphocytes (%) (Auto) 4.8 % (20.0-45.0) L Monocytes (%) (Auto) 10.6 % (1.0-10.0) H Eosinophils (%) (Auto) 1.6 % (0.0-3.0) Basophils (%) (Auto) 0.7 % (0.0-2.0) Sodium Level 135 MMOL/L (136-145) L Potassium Level 3.9 MMOL/L (3.5-5.1) Chloride Level 99 MMOL/L (98-107) Carbon Dioxide Level 26 MMOL/L (21-32) Anion Gap 10 mmol/L (5-15) Blood Urea Nitrogen 68 mg/dL (7-18) H Creatinine 8.0 MG/DL (0.55-1.30) H Estimat Glomerular Filtration Rate 7.5 mL/min (>60) Glucose Level 111 MG/DL (74-106) H Lactic Acid Level 1.10 mmol/L (0.4-2.0) Calcium Level 8.0 MG/DL (8.5-10.1) L Phosphorus Level 4.6 MG/DL (2.5-4.9) Magnesium Level 2.6 MG/DL (1.8-2.4) H Total Bilirubin 1.0 MG/DL (0.2-1.0) Aspartate Amino Transf (AST/SGOT) 953 U/L (15-37) H Alanine Aminotransferase (ALT/SGPT) 716 U/L (12-78) H Alkaline Phosphatase 212 U/L (46-116) H Total Creatine Kinase 19642 U/L (26-308) H C-Reactive Protein, Quantitative 12.2 mg/dL (0.00-0.90) H Total Protein 5.4 G/DL (6.4-8.2) L Albumin 1.8 G/DL (3.4-5.0) L Globulin 3.6 g/dL Albumin/Globulin Ratio 0.5 (1.0-2.7) L Free Thyroxine Pending Free Triiodothyronine Pending Arterial Blood pH 7.168 (7.350-7.450) Arterial Blood Partial Pressure CO2 70.5 mmHg (35.0-45.0) *H Arterial Blood Partial Pressure O2 59.5 mmHg (75.0-100.0) L Arterial Blood HCO3 25.0 mmol/L (22.0-26.0) Arterial Blood Oxygen Saturation 84.5 % (92.0-98.0) L Arterial Blood Base Excess -4.5 Miguel Test Positive Microbiology Date/Time Source Procedure Growth Status 09/02/17 17:20 Sputum Gram Stain - Final Resulted 09/02/17 17:20 Sputum Culture - Preliminary Staphylococcus Aureus Resulted Objective HEENT: Atraumatic and normocephalic. Pupils are equal, round, and reactive to light and accommodation. Scleral injection in both eyes. Dry mucosal membranes. Extubated earlier today. NECK: JVP cannot be assessed. CVS: Normal S1, S2. Cannot appreciate any murmurs, gallops, or rubs. LUNGS: Clear to auscultation bilaterally. ABDOMEN: Soft, nontender, and nondistended. No hepatosplenomegaly. Positive bowel sounds. EXTREMITIES: No evidence of edema, clubbing, or cyanosis. Jorge Mcdonough MD Sep 03, 2017 19:44
[2017-09-03] MEDS: Azithromycin 500 MG in D5W 275 ML IV SCH (21:27)
[2017-09-03] MEDS: Dyna-Hex 2% Top Sol 2oz TOPIC SCH (21:28)
[2017-09-04] VITALS (20 sets, daily range): BP systolic 128–163; BP diastolic 67–89
[2017-09-04] MEDS: Morphine Sulfate 4mg/ml Inj (IV USE ONLY) IVP PRN ×2 (00:36→08:22)
[2017-09-04] MEDS: [UNRECOGNIZED DRUG - OTHER] IV SCH ×2 (00:46→23:09)
[2017-09-04] MEDS: D5 IV SCH ×2 (00:46→23:09)
[2017-09-04] MEDS: SODIUM BICARBONATE IV SCH ×2 (00:46→23:09)
[2017-09-04] MEDS: Haloperidol Lactate 10 MG in D5W 55 ML IVPB PRN (02:47)
[2017-09-04] MEDS: Zosyn 2.25 gm in D5W 55ml IV SCH (06:10)
[2017-09-04 06:33] LABS: BASOPHILS % (AUTO) 0.8 % (0.0-2.0); EOSINOPHILS % (AUTO) 1.7 % (0.0-3.0); HEMATOCRIT 28.4 % (42.0-52.0); HEMOGLOBIN 9.8 G/DL (14.2-18.0); LYMPHOCYTES % (AUTO) 6.1 % (20.0-45.0); MEAN CORPUSCULAR VOLUME 93 FL (80-99); MONOCYTES % (AUTO) 11.5 % (1.0-10.0); PLATELET COUNT 223 K/UL (150-450); RED BLOOD COUNT 3.07 M/UL (4.70-6.10); RED CELL DISTRIBUTION WIDTH 11.7 % (11.6-14.8); WHITE BLOOD COUNT 15.9 K/UL (4.8-10.8)
[2017-09-04 06:57] LABS: ALANINE AMINOTRANSFERASE 684 U/L (12-78); ALBUMIN 1.8 G/DL (3.4-5.0); ALBUMIN/GLOBULIN RATIO 0.5 (1.0-2.7); ALKALINE PHOSPHATASE 157 U/L (46-116); ANION GAP 10 mmol/L (5-15); ASPARTATE AMINO TRANSFERASE 736 U/L (15-37); BILIRUBIN,TOTAL 1.1 MG/DL (0.2-1.0); BLOOD UREA NITROGEN 58 mg/dL (7-18); CALCIUM 8.3 MG/DL (8.5-10.1); CARBON DIOXIDE 26 MMOL/L (21-32); CHLORIDE 99 MMOL/L (98-107); CREATININE 7.7 MG/DL (0.55-1.30); POTASSIUM 3.6 MMOL/L (3.5-5.1); SODIUM 135 MMOL/L (136-145)
[2017-09-04 07:14] LABS: BILIRUBIN,DIRECT 0.3 MG/DL (0.0-0.3)
--- NOTE | 2017-09-04 07:39 | Diagnostic Imaging Report ---
APPROVED REPORT CPT Code: 70299 Present Symptoms Shortness of breath BILATERAL: Imaging reveals a patent deep venous system bilaterally. There is no evidence of thrombus within the femoral, popliteal or tibial segments. The greater saphenous veins are also within normal limits. Doppler indicates normal spontaneous flow within these segments.
--- NOTE | 2017-09-04 09:46 | Pulmonolgy Critical Care Note ---
Critical Care - Asmt/Plan Problems: (1) Respiratory failure (2) Aspiration pneumonia (3) Rhabdomyolysis (4) LUCRECIA (acute kidney injury) (5) NSTEMI (non-ST elevated myocardial infarction) (6) Substance abuse Assessment/Plan: extubated, c/o buttock pain Respiratory: monitor respiratory rate, adjust FIO2, CXR Cardiac: continue to monitor HR/BP Renal: F/U I&O, keep IV fluid Infectious Disease: check cultures Gastrointestinal: start feedings Endocrine: monitor blood sugar Hematologic: monitor H/H Neurologic: PRN Ativan Affect: PRN ativan Prophylaxis: Heparin Notes Reviewed: ripsaw matcher, renal Discussed with: nurses, consultants, casework supervisordiabetes manager - Objective Last 24 Hour Vital Signs Date Time Temp Pulse Resp B/P (MAP) Pulse Ox O2 Delivery O2 Flow Rate FiO2 09/04/17 07:50 Room Air 09/04/17 07:49 95 Room Air 21 09/04/17 07:00 88 20 142/82 (102) 95 09/04/17 06:00 20 09/04/17 06:00 88 21 133/74 (93) 95 09/04/17 05:00 19 09/04/17 05:00 81 21 130/78 (95) 96 09/04/17 04:00 Room Air Room Air 09/04/17 04:00 86 09/04/17 04:00 20 09/04/17 04:00 98.0 86 20 139/78 (98) 96 98.0 09/04/17 03:00 85 21 128/67 (87) 99 09/04/17 03:00 20 09/04/17 02:00 93 22 130/76 (94) 97 09/04/17 02:00 21 09/04/17 01:00 19 09/04/17 01:00 80 22 134/76 (95) 96 09/04/17 00:46 21 09/04/17 00:00 90 09/04/17 00:00 Room Air Room Air 09/04/17 00:00 98.2 90 21 136/71 (92) 97 98.2 09/03/17 23:00 93 22 122/63 (82) 97 09/03/17 22:00 93 23 130/80 (97) 96 09/03/17 21:00 92 21 145/77 (99) 96 09/03/17 20:00 98.4 91 21 120/70 (87) 96 98.4 09/03/17 20:00 91 09/03/17 20:00 Room Air Room Air 09/03/17 19:33 Nasal Cannula 3.0 32 09/03/17 19:00 17 09/03/17 18:00 83 19 124/67 (86) 95 09/03/17 18:00 17 09/03/17 17:30 89 19 144/80 (101) 95 09/03/17 17:00 17 09/03/17 17:00 88 18 141/77 (98) 96 09/03/17 16:30 92 19 132/73 (92) 97 09/03/17 16:30 17 09/03/17 16:00 97 09/03/17 16:00 3.0 09/03/17 16:00 Mechanical Ventilator 3.0 Nasal Cannula 09/03/17 16:00 98.9 96 22 138/85 (102) 96 98.9 09/03/17 15:44 97 Nasal Cannula 3.0 32 09/03/17 15:44 Nasal Cannula 3.0 32 09/03/17 15:30 Nasal Cannula 3.0 32 09/03/17 15:30 3.0 09/03/17 15:25 Mechanical Ventilator 15.0 40 09/03/17 15:00 89 20 142/88 (106) 100 09/03/17 14:00 85 20 134/77 (96) 100 09/03/17 13:30 85 20 140/75 (96) 100 09/03/17 13:23 88 20 40 09/03/17 13:00 86 19 133/75 (94) 100 09/03/17 12:30 91 19 142/83 (102) 92 09/03/17 12:00 40 09/03/17 12:00 Mechanical Ventilator 09/03/17 12:00 113 09/03/17 12:00 99.0 85 20 133/78 (96) 90 99.0 09/03/17 11:49 88 20 40 09/03/17 11:30 86 20 132/72 (92) 89 09/03/17 11:00 87 20 117/79 (92) 93 09/03/17 10:30 20 09/03/17 10:30 93 20 103/64 (77) 100 09/03/17 10:15 20 09/03/17 10:00 99 20 104/58 (73) 99 09/03/17 10:00 20 09/03/17 09:45 20 Status: somnolent Condition: critical HEENT: atraumatic Lungs: clear Heart: HR/BP stable Abdomen: non-tender Extremities: no C/C/E, edema Micro: Microbiology Date/Time Source Procedure Growth Status 09/02/17 16:40 Blood Blood Culture - Preliminary NO GROWTH AFTER 24 HOURS Resulted 09/02/17 16:30 Blood Blood Culture - Preliminary NO GROWTH AFTER 24 HOURS Resulted 09/02/17 17:20 Sputum Gram Stain - Final Complete 09/02/17 17:20 Sputum Culture - Final Staphylococcus Aureus Complete Accucheck: 96 Critical Care - Subjective ROS Limited/Unobtainable: Yes ICU Day: 6 Intubation Day: extubated yesterday Condition: critical FI02: 21 Vent Support Breath Rate: 20 Vent Support Mode: AC Vent Tidal Volume: 650 Sputum Amount: Small PEEP: 5.0 PIP: 49 Tube Feeding Amount: 0 I&O: Intake and Output 09/03/17 09/04/17 19:00 07:00 Intake Total 1491.916 ml 620 ml Output Total 69 ml 2326 ml Balance 1422.916 ml -1706 ml Intake Oral 210 ml IV Total 1491.916 ml 410 ml Tube Feeding 0 ml 0 ml Output Urine Total 69 ml 26 ml Hemodialysis UF 2300 ml # Voids 3 # Bowel Movements 7 2 CXR: right sided infiltrate ET-Tube: 7.5 ET Position: 23 Labs: Laboratory Tests Test 09/04/17 05:00 09/04/17 08:50 White Blood Count 15.9 K/UL (4.8-10.8) H Red Blood Count 3.07 M/UL (4.70-6.10) L Hemoglobin 9.8 G/DL (14.2-18.0) L Hematocrit 28.4 % (42.0-52.0) L Mean Corpuscular Volume 93 FL (80-99) Mean Corpuscular Hemoglobin 32.1 PG (27.0-31.0) H Mean Corpuscular Hemoglobin Concent 34.6 G/DL (32.0-36.0) Red Cell Distribution Width 11.7 % (11.6-14.8) Platelet Count 223 K/UL (150-450) Mean Platelet Volume 7.9 FL (6.5-10.1) Neutrophils (%) (Auto) 80.0 % (45.0-75.0) H Lymphocytes (%) (Auto) 6.1 % (20.0-45.0) L Monocytes (%) (Auto) 11.5 % (1.0-10.0) H Eosinophils (%) (Auto) 1.7 % (0.0-3.0) Basophils (%) (Auto) 0.8 % (0.0-2.0) Sodium Level 135 MMOL/L (136-145) L Potassium Level 3.6 MMOL/L (3.5-5.1) Chloride Level 99 MMOL/L (98-107) Carbon Dioxide Level 26 MMOL/L (21-32) Anion Gap 10 mmol/L (5-15) Blood Urea Nitrogen 58 mg/dL (7-18) H Creatinine 7.7 MG/DL (0.55-1.30) H Estimat Glomerular Filtration Rate 7.9 mL/min (>60) Glucose Level 126 MG/DL (74-106) H Calcium Level 8.3 MG/DL (8.5-10.1) L Phosphorus Level 4.0 MG/DL (2.5-4.9) Magnesium Level 2.5 MG/DL (1.8-2.4) H Total Bilirubin 1.1 MG/DL (0.2-1.0) H Direct Bilirubin 0.3 MG/DL (0.0-0.3) Aspartate Amino Transf (AST/SGOT) 736 U/L (15-37) H Alanine Aminotransferase (ALT/SGPT) 684 U/L (12-78) H Alkaline Phosphatase 157 U/L (46-116) H Total Protein 5.3 G/DL (6.4-8.2) L Albumin 1.8 G/DL (3.4-5.0) L Globulin 3.5 g/dL Albumin/Globulin Ratio 0.5 (1.0-2.7) L Hepatitis C Antibody Pending Hepatitis C RNA (PCR) IUs/ml Pending Hepatitis C RNA (PCR) log IUs/ml Pending Arterial Blood pH 7.449 (7.350-7.450) Arterial Blood Partial Pressure CO2 31.6 mmHg (35.0-45.0) L Arterial Blood Partial Pressure O2 72.7 mmHg (75.0-100.0) L Arterial Blood HCO3 21.4 mmol/L (22.0-26.0) L Arterial Blood Oxygen Saturation 94.7 % (92.0-98.0) Arterial Blood Base Excess -1.9 Miguel Test Positive Arpita Andre MD Sep 04, 2017 09:46
[2017-09-04] MEDS: Heparin 5000 units/ml inj SUBQ SCH ×2 (09:52→20:47)
[2017-09-04] MEDS: Pantoprazole Inj IVP SCH ×2 (09:55→20:44)
[2017-09-04] MEDS ORDERED: Isovue-300 100ml vial INJ PRN (10:00)
--- NOTE | 2017-09-04 10:20 | Diagnostic Imaging Report ---
Indication: Abnormal liver function tests, abdominal distention, Technique: Pacheco-scale and duplex images of the upper abdomen were obtained Comparison: none Findings: Gallbladder demonstrates sludge. No stones, wall thickening, nor pericholecystic fluid. Sonographic Griggs's sign is negative. Common bile duct measures to mm in diameter. No intrahepatic biliary ductal dilatation. Liver demonstrates equivocally increased echogenicity. It is borderline enlarged. Portal vein and hepatic veins are patent. Pancreas is unremarkable. Spleen is unremarkable. Left kidney measures 12 cm in length. Right kidney measures 11.5 cm length. Both kidneys demonstrate mildly increased echogenicity There is no hydronephrosis. No focal abnormality . Non-aneurysmal abdominal aorta . Incidentally noted is a left pleural effusion Impression: Gallbladder sludge. Negative for gallstones or dilated ducts Equivocal increased hepatic echogenicity, if real could indicate hepatocellular disease such as fatty change. Borderline hepatomegaly Mildly increased renal echogenicity, could indicate medical renal disease. Correlate with renal function tests Left pleural effusion
--- NOTE | 2017-09-04 10:28 | Diagnostic Imaging Report ---
Indication: Cough Technique: One view of the chest Comparison: 09/03/2017 Findings: Interim extubation. Less optimal inspiration. Hazy interstitial and airspace disease is now present in the right lung somewhat diffusely. The left lung and bilateral pleural spaces remain clear. The heart size is normal. Right jugular temporary dialysis catheter remains Impression: Interim development of hazy interstitial and airspace disease in the right lung. This may to some extent be an artifact of less optimal inspiration, however. Interim extubation Other findings as noted
[2017-09-04] MEDS ORDERED: Isovue-370 150ml vial INJ PRN ×2 (12:30)
--- NOTE | 2017-09-04 13:45 | GI Progress Note ---
Assessment/Plan Problems: (1) Severe sepsis ICD Codes: A41.9 - Sepsis, unspecified organism; R65.20 - Severe sepsis without septic shock SNOMED: 53503215 (2) Rhabdomyolysis ICD Codes: M62.82 - Rhabdomyolysis SNOMED: 499455097 Qualifiers: Qualified Codes: T79.6XXA - Traumatic ischemia of muscle, initial encounter (3) Aspiration pneumonia ICD Codes: J69.0 - Pneumonitis due to inhalation of food and vomit SNOMED: 406839544 Qualifiers: Qualified Codes: J69.0 - Pneumonitis due to inhalation of food and vomit (4) Substance abuse ICD Codes: F19.10 - Other psychoactive substance abuse, uncomplicated SNOMED: 50290621 (5) Transaminitis ICD Codes: R74.0 - Nonspecific elevation of levels of transaminase and lactic acid dehydrogenase [LDH] SNOMED: 550574582, 897990524 Status: stable, progressing Status Narrative Discussed with Dr. Chavez. Assessment/Plan Hx of Hep A Hep C positive extubated transaminitis >> downtrending regular diet, tolerating fu labs, trend LFTs supportive care outpatient Hep C tx The patient was seen and examined at bedside and all new and available data was reviewed in the patients chart. I agree with the above findings, impression and plan. (Patient seen earlier today. Signature stamp does not reflect patient encounter time.). - Efrain Chavez MD Subjective Subjective limited Objective Last 24 Hour Vital Signs Date Time Temp Pulse Resp B/P (MAP) Pulse Ox O2 Delivery O2 Flow Rate FiO2 09/04/17 07:50 Room Air 09/04/17 07:49 95 Room Air 21 09/04/17 07:00 88 20 142/82 (102) 95 09/04/17 06:00 20 09/04/17 06:00 88 21 133/74 (93) 95 09/04/17 05:00 19 09/04/17 05:00 81 21 130/78 (95) 96 09/04/17 04:00 Room Air Room Air 09/04/17 04:00 86 09/04/17 04:00 20 09/04/17 04:00 98.0 86 20 139/78 (98) 96 98.0 09/04/17 03:00 85 21 128/67 (87) 99 09/04/17 03:00 20 09/04/17 02:00 93 22 130/76 (94) 97 09/04/17 02:00 21 09/04/17 01:00 19 09/04/17 01:00 80 22 134/76 (95) 96 09/04/17 00:46 21 09/04/17 00:00 90 09/04/17 00:00 Room Air Room Air 09/04/17 00:00 98.2 90 21 136/71 (92) 97 98.2 09/03/17 23:00 93 22 122/63 (82) 97 09/03/17 22:00 93 23 130/80 (97) 96 09/03/17 21:00 92 21 145/77 (99) 96 09/03/17 20:00 98.4 91 21 120/70 (87) 96 98.4 09/03/17 20:00 91 09/03/17 20:00 Room Air Room Air 09/03/17 19:33 Nasal Cannula 3.0 32 09/03/17 19:00 17 09/03/17 18:00 83 19 124/67 (86) 95 09/03/17 18:00 17 09/03/17 17:30 89 19 144/80 (101) 95 09/03/17 17:00 17 09/03/17 17:00 88 18 141/77 (98) 96 09/03/17 16:30 92 19 132/73 (92) 97 09/03/17 16:30 17 09/03/17 16:00 97 09/03/17 16:00 3.0 09/03/17 16:00 Mechanical Ventilator 3.0 Nasal Cannula 09/03/17 16:00 98.9 96 22 138/85 (102) 96 98.9 09/03/17 15:44 97 Nasal Cannula 3.0 32 09/03/17 15:44 Nasal Cannula 3.0 32 09/03/17 15:30 Nasal Cannula 3.0 32 09/03/17 15:30 3.0 09/03/17 15:25 Mechanical Ventilator 15.0 40 09/03/17 15:00 89 20 142/88 (106) 100 09/03/17 14:00 85 20 134/77 (96) 100 Intake and Output 09/03/17 09/04/17 18:59 06:59 Intake Total 1481.916 ml 680 ml Output Total 72 ml 2326 ml Balance 1409.916 ml -1646 ml Intake Oral 210 ml IV Total 1481.916 ml 470 ml Tube Feeding 0 ml 0 ml Output Urine Total 72 ml 26 ml Hemodialysis UF 2300 ml # Voids 3 # Bowel Movements 7 2 Laboratory Tests Test 09/04/17 05:00 09/04/17 08:50 White Blood Count 15.9 K/UL (4.8-10.8) H Red Blood Count 3.07 M/UL (4.70-6.10) L Hemoglobin 9.8 G/DL (14.2-18.0) L Hematocrit 28.4 % (42.0-52.0) L Mean Corpuscular Volume 93 FL (80-99) Mean Corpuscular Hemoglobin 32.1 PG (27.0-31.0) H Mean Corpuscular Hemoglobin Concent 34.6 G/DL (32.0-36.0) Red Cell Distribution Width 11.7 % (11.6-14.8) Platelet Count 223 K/UL (150-450) Mean Platelet Volume 7.9 FL (6.5-10.1) Neutrophils (%) (Auto) 80.0 % (45.0-75.0) H Lymphocytes (%) (Auto) 6.1 % (20.0-45.0) L Monocytes (%) (Auto) 11.5 % (1.0-10.0) H Eosinophils (%) (Auto) 1.7 % (0.0-3.0) Basophils (%) (Auto) 0.8 % (0.0-2.0) Sodium Level 135 MMOL/L (136-145) L Potassium Level 3.6 MMOL/L (3.5-5.1) Chloride Level 99 MMOL/L (98-107) Carbon Dioxide Level 26 MMOL/L (21-32) Anion Gap 10 mmol/L (5-15) Blood Urea Nitrogen 58 mg/dL (7-18) H Creatinine 7.7 MG/DL (0.55-1.30) H Estimat Glomerular Filtration Rate 7.9 mL/min (>60) Glucose Level 126 MG/DL (74-106) H Calcium Level 8.3 MG/DL (8.5-10.1) L Phosphorus Level 4.0 MG/DL (2.5-4.9) Magnesium Level 2.5 MG/DL (1.8-2.4) H Total Bilirubin 1.1 MG/DL (0.2-1.0) H Direct Bilirubin 0.3 MG/DL (0.0-0.3) Aspartate Amino Transf (AST/SGOT) 736 U/L (15-37) H Alanine Aminotransferase (ALT/SGPT) 684 U/L (12-78) H Alkaline Phosphatase 157 U/L (46-116) H Total Protein 5.3 G/DL (6.4-8.2) L Albumin 1.8 G/DL (3.4-5.0) L Globulin 3.5 g/dL Albumin/Globulin Ratio 0.5 (1.0-2.7) L Hepatitis C Antibody Pending Hepatitis C RNA (PCR) IUs/ml Pending Hepatitis C RNA (PCR) log IUs/ml Pending Arterial Blood pH 7.449 (7.350-7.450) Arterial Blood Partial Pressure CO2 31.6 mmHg (35.0-45.0) L Arterial Blood Partial Pressure O2 72.7 mmHg (75.0-100.0) L Arterial Blood HCO3 21.4 mmol/L (22.0-26.0) L Arterial Blood Oxygen Saturation 94.7 % (92.0-98.0) Arterial Blood Base Excess -1.9 Miguel Test Positive Height (Feet): 5 Height (Inches): 8.00 Weight (Pounds): 181 General Appearance: WD/WN, no apparent distress, alert Cardiovascular: normal rate Respiratory/Chest: normal breath sounds, no respiratory distress Abdominal Exam: normal bowel sounds, non tender, soft Extremities: non-tender Carlos Lopez DESCRIPTIVE CATALOG LIBRARIAN Sep 04, 2017 13:44
--- NOTE | 2017-09-04 14:25 | General Progress Note ---
Assessment/Plan Problem List: (1) Substance abuse ICD Codes: F19.10 - Other psychoactive substance abuse, uncomplicated SNOMED: 09316341 (2) Respiratory failure ICD Codes: J96.90 - Respiratory failure, unspecified, unspecified whether with hypoxia or hypercapnia SNOMED: 328280920 Qualifiers: Qualified Codes: J96.01 - Acute respiratory failure with hypoxia (3) Rhabdomyolysis ICD Codes: M62.82 - Rhabdomyolysis SNOMED: 649588717 Qualifiers: Qualified Codes: T79.6XXA - Traumatic ischemia of muscle, initial encounter (4) NSTEMI (non-ST elevated myocardial infarction) ICD Codes: I21.4 - Non-ST elevation (NSTEMI) myocardial infarction SNOMED: 892411877 (5) LUCRECIA (acute kidney injury) ICD Codes: N17.9 - Acute kidney failure, unspecified SNOMED: 80978083 Status: stable, progressing Assessment/Plan vent abx neuro psyc eval cbc bmp am Subjective Constitutional: Reports: weakness Allergies: Coded Allergies: NO KNOWN ALLERGIES (Verified Allergy, Unknown, 09/02/17) All Systems: reviewed and negative except above Subjective sl anxious in bed, wants to go home Objective Last 24 Hour Vital Signs Date Time Temp Pulse Resp B/P (MAP) Pulse Ox O2 Delivery O2 Flow Rate FiO2 09/04/17 12:00 Room Air Room Air 09/04/17 08:00 Room Air Room Air 09/04/17 07:50 Room Air 09/04/17 07:49 95 Room Air 21 09/04/17 07:00 88 20 142/82 (102) 95 09/04/17 06:00 20 09/04/17 06:00 88 21 133/74 (93) 95 09/04/17 05:00 19 09/04/17 05:00 81 21 130/78 (95) 96 09/04/17 04:00 Room Air Room Air 09/04/17 04:00 86 09/04/17 04:00 20 09/04/17 04:00 98.0 86 20 139/78 (98) 96 98.0 09/04/17 03:00 85 21 128/67 (87) 99 09/04/17 03:00 20 09/04/17 02:00 93 22 130/76 (94) 97 09/04/17 02:00 21 09/04/17 01:00 19 09/04/17 01:00 80 22 134/76 (95) 96 09/04/17 00:46 21 09/04/17 00:00 90 09/04/17 00:00 Room Air Room Air 09/04/17 00:00 98.2 90 21 136/71 (92) 97 98.2 09/03/17 23:00 93 22 122/63 (82) 97 09/03/17 22:00 93 23 130/80 (97) 96 09/03/17 21:00 92 21 145/77 (99) 96 09/03/17 20:00 98.4 91 21 120/70 (87) 96 98.4 09/03/17 20:00 91 09/03/17 20:00 Room Air Room Air 09/03/17 19:33 Nasal Cannula 3.0 32 09/03/17 19:00 17 09/03/17 18:00 83 19 124/67 (86) 95 09/03/17 18:00 17 09/03/17 17:30 89 19 144/80 (101) 95 09/03/17 17:00 17 09/03/17 17:00 88 18 141/77 (98) 96 09/03/17 16:30 92 19 132/73 (92) 97 09/03/17 16:30 17 09/03/17 16:00 97 09/03/17 16:00 3.0 09/03/17 16:00 Mechanical Ventilator 3.0 Nasal Cannula 09/03/17 16:00 98.9 96 22 138/85 (102) 96 98.9 09/03/17 15:44 97 Nasal Cannula 3.0 32 09/03/17 15:44 Nasal Cannula 3.0 32 09/03/17 15:30 Nasal Cannula 3.0 32 09/03/17 15:30 3.0 09/03/17 15:25 Mechanical Ventilator 15.0 40 09/03/17 15:00 89 20 142/88 (106) 100 Intake and Output 09/03/17 09/04/17 19:00 07:00 Intake Total 1491.916 ml 620 ml Output Total 69 ml 2326 ml Balance 1422.916 ml -1706 ml Intake Oral 210 ml IV Total 1491.916 ml 410 ml Tube Feeding 0 ml 0 ml Output Urine Total 69 ml 26 ml Hemodialysis UF 2300 ml # Voids 3 # Bowel Movements 7 2 Laboratory Tests 09/04/17 05:00: White Blood Count 15.9H, Red Blood Count 3.07L, Hemoglobin 9.8L, Hematocrit 28.4L, Mean Corpuscular Volume 93, Mean Corpuscular Hemoglobin 32.1H, Mean Corpuscular Hemoglobin Concent 34.6, Red Cell Distribution Width 11.7, Platelet Count 223, Mean Platelet Volume 7.9, Neutrophils (%) (Auto) 80.0H, Lymphocytes ( %) (Auto) 6.1L, Monocytes (%) (Auto) 11.5H, Eosinophils (%) (Auto) 1.7, Basophils (%) (Auto) 0.8, Sodium Level 135L, Potassium Level 3.6, Chloride Level 99, Carbon Dioxide Level 26, Anion Gap 10, Blood Urea Nitrogen 58H, Creatinine 7.7H, Estimat Glomerular Filtration Rate 7.9, Glucose Level 126H, Calcium Level 8.3L, Phosphorus Level 4.0, Magnesium Level 2.5H, Total Bilirubin 1.1H, Direct Bilirubin 0.3, Aspartate Amino Transf (AST/SGOT) 736H, Alanine Aminotransferase (ALT/SGPT) 684H, Alkaline Phosphatase 157H, Total Protein 5.3L , Albumin 1.8L, Globulin 3.5, Albumin/Globulin Ratio 0.5L, Hepatitis C Antibody [Pending], Hepatitis C RNA (PCR) IUs/ml [Pending], Hepatitis C RNA (PCR) log IUs /ml [Pending] 09/04/17 08:50: Arterial Blood pH 7.449, Arterial Blood Partial Pressure CO2 31.6L, Arterial Blood Partial Pressure O2 72.7L, Arterial Blood HCO3 21.4L, Arterial Blood Oxygen Saturation 94.7, Arterial Blood Base Excess -1.9, Miguel Test Positive Height (Feet): 5 Height (Inches): 8.00 Weight (Pounds): 181 General Appearance: alert EENT: normal ENT inspection Neck: normal alignment Cardiovascular: normal peripheral pulses, normal rate, regular rhythm Respiratory/Chest: chest wall non-tender, lungs clear, normal breath sounds Abdomen: normal bowel sounds, non tender, soft Extremities: normal inspection Edema: no edema noted Arm (L), no edema noted Arm (R), no edema noted Leg (L), no edema noted Leg (R), no edema noted Pedal (L), no edema noted Pedal (R), no edema noted Generalized Neurologic: responsive, motor weakness Skin: normal pigmentation, warm/dry Reid Anaya DO Sep 04, 2017 14:25
--- NOTE | 2017-09-04 15:11 | Diagnostic Imaging Report ---
Indications: Fall with head trauma Technique: Spiral acquisitions obtained through the brain. Angled axial and coronal 5 x 5 mm slices were reconstructed. Total dose length product 1470.63 mGycm. CTDI vol(s) 70.38 mGy. Dose reduction achieved using automated exposure control Comparison: 08/29/2017 Findings: Interim development of unusual thickening of the scalp at the vertex, symmetric and bilateral, which is lower in attenuation than is usually seen with a typical scalp contusion. No underlying calvarial fracture demonstrated. No acute intracranial hemorrhage or edema, mass effect, or midline shift demonstrated. Normal size ventricles and extra-axial CSF spaces. Normal cadena-white differentiation. There is minimal mastoid opacification on the right, not evident previously. There is sphenoid sinus disease. The orbits are unremarkable Impression: Unusual scalp contusion, new since prior study 08/29/2017. No evidence of underlying calvarial trauma Negative for acute intracranial bleed or mass effect The CT scanner at [facility] is accredited by the [employer] and the scans are performed using protocols designed to limit radiation exposure to as low as reasonably achievable to attain images of sufficient resolution adequate for diagnostic evaluation.
--- NOTE | 2017-09-04 15:41 | Cardiology Report ---
APPROVED REPORT EKG Measurement Heart [id number] MD [id number] and T wave abnormality Abnormal ECG
--- NOTE | 2017-09-04 15:43 | Nephrology Progress Note ---
Assessment/Plan Assessment 1. Acute rhabdomyolysis.(anuric ) 2. Hypocalcemia. 3. Hyperkalemia. 4. Lactic acidosis. 5. Shock liver. 6. History of multiple drug use. Plan continue bicarbonate drip dialysis today monitoring renal function monitoring out put Subjective Constitutional: Reports: no symptoms HEENT: Reports: no symptoms Genitourinary: Reports: no symptoms Neurologic/Psychiatric: Reports: no symptoms Subjective extubated alert and awake Objective Objective Last 24 Hour Vital Signs Date Time Temp Pulse Resp B/P (MAP) Pulse Ox O2 Delivery O2 Flow Rate FiO2 09/04/17 12:00 Room Air Room Air 09/04/17 08:00 Room Air Room Air 09/04/17 07:50 Room Air 09/04/17 07:49 95 Room Air 21 09/04/17 07:00 88 20 142/82 (102) 95 09/04/17 06:00 20 09/04/17 06:00 88 21 133/74 (93) 95 09/04/17 05:00 19 09/04/17 05:00 81 21 130/78 (95) 96 09/04/17 04:00 Room Air Room Air 09/04/17 04:00 86 09/04/17 04:00 20 09/04/17 04:00 98.0 86 20 139/78 (98) 96 98.0 09/04/17 03:00 85 21 128/67 (87) 99 09/04/17 03:00 20 09/04/17 02:00 93 22 130/76 (94) 97 09/04/17 02:00 21 09/04/17 01:00 19 09/04/17 01:00 80 22 134/76 (95) 96 09/04/17 00:46 21 09/04/17 00:00 90 09/04/17 00:00 Room Air Room Air 09/04/17 00:00 98.2 90 21 136/71 (92) 97 98.2 09/03/17 23:00 93 22 122/63 (82) 97 09/03/17 22:00 93 23 130/80 (97) 96 09/03/17 21:00 92 21 145/77 (99) 96 09/03/17 20:00 98.4 91 21 120/70 (87) 96 98.4 09/03/17 20:00 91 09/03/17 20:00 Room Air Room Air 09/03/17 19:33 Nasal Cannula 3.0 32 09/03/17 19:00 17 09/03/17 18:00 83 19 124/67 (86) 95 09/03/17 18:00 17 09/03/17 17:30 89 19 144/80 (101) 95 09/03/17 17:00 17 09/03/17 17:00 88 18 141/77 (98) 96 09/03/17 16:30 92 19 132/73 (92) 97 09/03/17 16:30 17 09/03/17 16:00 97 09/03/17 16:00 3.0 09/03/17 16:00 Mechanical Ventilator 3.0 Nasal Cannula 09/03/17 16:00 98.9 96 22 138/85 (102) 96 98.9 09/03/17 15:44 97 Nasal Cannula 3.0 32 09/03/17 15:44 Nasal Cannula 3.0 32 Intake and Output 09/03/17 09/04/17 19:00 07:00 Intake Total 1491.916 ml 620 ml Output Total 69 ml 2326 ml Balance 1422.916 ml -1706 ml Intake Oral 210 ml IV Total 1491.916 ml 410 ml Tube Feeding 0 ml 0 ml Output Urine Total 69 ml 26 ml Hemodialysis UF 2300 ml # Voids 3 # Bowel Movements 7 2 Laboratory Tests 09/04/17 05:00: White Blood Count 15.9H, Red Blood Count 3.07L, Hemoglobin 9.8L, Hematocrit 28.4L, Mean Corpuscular Volume 93, Mean Corpuscular Hemoglobin 32.1H, Mean Corpuscular Hemoglobin Concent 34.6, Red Cell Distribution Width 11.7, Platelet Count 223, Mean Platelet Volume 7.9, Neutrophils (%) (Auto) 80.0H, Lymphocytes ( %) (Auto) 6.1L, Monocytes (%) (Auto) 11.5H, Eosinophils (%) (Auto) 1.7, Basophils (%) (Auto) 0.8, Sodium Level 135L, Potassium Level 3.6, Chloride Level 99, Carbon Dioxide Level 26, Anion Gap 10, Blood Urea Nitrogen 58H, Creatinine 7.7H, Estimat Glomerular Filtration Rate 7.9, Glucose Level 126H, Calcium Level 8.3L, Phosphorus Level 4.0, Magnesium Level 2.5H, Total Bilirubin 1.1H, Direct Bilirubin 0.3, Aspartate Amino Transf (AST/SGOT) 736H, Alanine Aminotransferase (ALT/SGPT) 684H, Alkaline Phosphatase 157H, Total Protein 5.3L , Albumin 1.8L, Globulin 3.5, Albumin/Globulin Ratio 0.5L, Hepatitis C Antibody [Pending], Hepatitis C RNA (PCR) IUs/ml [Pending], Hepatitis C RNA (PCR) log IUs /ml [Pending] 09/04/17 08:50: Arterial Blood pH 7.449, Arterial Blood Partial Pressure CO2 31.6L, Arterial Blood Partial Pressure O2 72.7L, Arterial Blood HCO3 21.4L, Arterial Blood Oxygen Saturation 94.7, Arterial Blood Base Excess -1.9, Miguel Test Positive Height (Feet): 5 Height (Inches): 8.00 Weight (Pounds): 181 Objective HEAD AND NECK: No JVP. No LAD. G-tube is in place. Head is atraumatic and normocephalic. LUNGS: He has decreased breathing sounds on the both sides. CARDIAC: Regular rate and rhythm. S1 and S2. No murmur. No rub. ABDOMEN: Soft. Bowel sounds positive. EXTREMITIES: No edema. No clubbing. No cyanosis. Aixa Veloz MD Sep 04, 2017 15:43
--- NOTE | 2017-09-04 15:48 | Infectious Diseases Prog Note ---
Assessment/Plan Assessment/Plan Assessment: Shock, SP Aspiration PNA -CXR 09/04 : Interim development of hazy interstitial and airspace disease in the right lung. This may to some extent be an artifact of less optimal inspiration, however. Interim extubation -CXR 09/03: Marked improvement of previously demonstrated bilateral pulmonary edema, over one day -CXR:More consolidated areas within the diffuse airspace opacity within the right lung and now possible right pleural effusion. The patient is rotated to the right. Interval increase in patchy left perihilar airspace opacities. May represent component of pulmonary edema or aspiration pneumonitis. -sp cx normal ann; repeat sp cx MSSA -legionella ag urine neg Rule out sepsis -u/a wbc 5-10, nit neg, leuk +1; cx neg -Bcx NTD -2d Echo (limited but no vegetations seen) Fever/leukocytosis- suspect reactive and 2ry to PNA -v/duplex no DVT Drug overdose -UDS + opiates, amphetamines, THC, cocaine -+empty heroin needles (found on hotel room) -HIV ab sc and VL neg, RPR/FTA, GC/CL neg Multiorgan failure -LUCRECIA, worsening- on HD -Transaminitis, worse (shock liver) -VDRF (airway protection)- now extubaetd 09/03 Lactic acidosis; resolved Rhabdomyolisis Pancreatitis- drug induced -neg alcohol levels Encephalopathy- 2ry to above- r.o ischemia, r/o abscess (fever, IVDA +); much improved -CT head 09/04: Unusual scalp contusion, new since prior study 08/29/2017. No evidence of underlying calvarial trauma. Negative for acute intracranial bleed or mass effect -CT head 08/29: Limited exam due to motion artifact. No gross acute intracranial bleed or mass effect Hep C +; VL pending -ABD US: Gallbladder sludge. Negative for gallstones or dilated ducts. Equivocal increased hepatic echogenicity, if real could indicate hepatocellular disease such as fatty change. Borderline hepatomegaly. Mildly increased renal echogenicity, could indicate medical renal disease. Correlate with renal function tests. Left pleural effusion -Hep A and B immune Plan: -Switch IV Vanco # [id number] to IV Ancef for MSSA PNA -D/c IV Azithromycin #3 -09/03 SP Zosyn #6 -f/u cx -if persistent fevers may need KATELYN to eval for endocarditis given +IVDA -Monitor CBC/CMP, temperatures -ICU care/support -aspiration precautions -Neuro,c ardio, renal, GI f/u -if T>101, please obtain Bcx x2 -Cdiff if diarrhea Discussed with RN and mom at bedside. Subjective Allergies: Coded Allergies: NO KNOWN ALLERGIES (Verified Allergy, Unknown, 09/02/17) Subjective afebrile in 36hrs WBC increased BCx NTD Objective Vital Signs Last 24 Hour Vital Signs Date Time Temp Pulse Resp B/P (MAP) Pulse Ox O2 Delivery O2 Flow Rate FiO2 09/04/17 12:00 Room Air Room Air 09/04/17 08:00 Room Air Room Air 09/04/17 07:50 Room Air 09/04/17 07:49 95 Room Air 21 09/04/17 07:00 88 20 142/82 (102) 95 09/04/17 06:00 20 09/04/17 06:00 88 21 133/74 (93) 95 09/04/17 05:00 19 09/04/17 05:00 81 21 130/78 (95) 96 09/04/17 04:00 Room Air Room Air 09/04/17 04:00 86 09/04/17 04:00 20 09/04/17 04:00 98.0 86 20 139/78 (98) 96 98.0 09/04/17 03:00 85 21 128/67 (87) 99 09/04/17 03:00 20 09/04/17 02:00 93 22 130/76 (94) 97 09/04/17 02:00 21 09/04/17 01:00 19 09/04/17 01:00 80 22 134/76 (95) 96 09/04/17 00:46 21 09/04/17 00:00 90 09/04/17 00:00 Room Air Room Air 09/04/17 00:00 98.2 90 21 136/71 (92) 97 98.2 09/03/17 23:00 93 22 122/63 (82) 97 09/03/17 22:00 93 23 130/80 (97) 96 09/03/17 21:00 92 21 145/77 (99) 96 09/03/17 20:00 98.4 91 21 120/70 (87) 96 98.4 09/03/17 20:00 91 09/03/17 20:00 Room Air Room Air 09/03/17 19:33 Nasal Cannula 3.0 32 09/03/17 19:00 17 09/03/17 18:00 83 19 124/67 (86) 95 09/03/17 18:00 17 09/03/17 17:30 89 19 144/80 (101) 95 09/03/17 17:00 17 09/03/17 17:00 88 18 141/77 (98) 96 09/03/17 16:30 92 19 132/73 (92) 97 09/03/17 16:30 17 09/03/17 16:00 97 09/03/17 16:00 3.0 09/03/17 16:00 Mechanical Ventilator 3.0 Nasal Cannula 09/03/17 16:00 98.9 96 22 138/85 (102) 96 98.9 09/03/17 15:44 97 Nasal Cannula 3.0 32 09/03/17 15:44 Nasal Cannula 3.0 32 09/03/17 15:30 Nasal Cannula 3.0 32 09/03/17 15:30 3.0 09/03/17 15:25 Mechanical Ventilator 15.0 40 Height (Feet): 5 Height (Inches): 8.00 Weight (Pounds): 181 Objective General: intubated, restless HEENT: ETT in place Heart: RRR, no murmurs Lungs: CTA x2 ABD: S+D, ND, BS+ Extremity no edema or cellulitis Microbiology Date/Time Source Procedure Growth Status 09/02/17 16:40 Blood Blood Culture - Preliminary NO GROWTH AFTER 24 HOURS Resulted 09/02/17 16:30 Blood Blood Culture - Preliminary NO GROWTH AFTER 24 HOURS Resulted 09/02/17 17:20 Sputum Gram Stain - Final Complete 09/02/17 17:20 Sputum Culture - Final Staphylococcus Aureus Complete Laboratory Tests Test 09/04/17 05:00 09/04/17 08:50 White Blood Count 15.9 K/UL (4.8-10.8) H Red Blood Count 3.07 M/UL (4.70-6.10) L Hemoglobin 9.8 G/DL (14.2-18.0) L Hematocrit 28.4 % (42.0-52.0) L Mean Corpuscular Volume 93 FL (80-99) Mean Corpuscular Hemoglobin 32.1 PG (27.0-31.0) H Mean Corpuscular Hemoglobin Concent 34.6 G/DL (32.0-36.0) Red Cell Distribution Width 11.7 % (11.6-14.8) Platelet Count 223 K/UL (150-450) Mean Platelet Volume 7.9 FL (6.5-10.1) Neutrophils (%) (Auto) 80.0 % (45.0-75.0) H Lymphocytes (%) (Auto) 6.1 % (20.0-45.0) L Monocytes (%) (Auto) 11.5 % (1.0-10.0) H Eosinophils (%) (Auto) 1.7 % (0.0-3.0) Basophils (%) (Auto) 0.8 % (0.0-2.0) Sodium Level 135 MMOL/L (136-145) L Potassium Level 3.6 MMOL/L (3.5-5.1) Chloride Level 99 MMOL/L (98-107) Carbon Dioxide Level 26 MMOL/L (21-32) Anion Gap 10 mmol/L (5-15) Blood Urea Nitrogen 58 mg/dL (7-18) H Creatinine 7.7 MG/DL (0.55-1.30) H Estimat Glomerular Filtration Rate 7.9 mL/min (>60) Glucose Level 126 MG/DL (74-106) H Calcium Level 8.3 MG/DL (8.5-10.1) L Phosphorus Level 4.0 MG/DL (2.5-4.9) Magnesium Level 2.5 MG/DL (1.8-2.4) H Total Bilirubin 1.1 MG/DL (0.2-1.0) H Direct Bilirubin 0.3 MG/DL (0.0-0.3) Aspartate Amino Transf (AST/SGOT) 736 U/L (15-37) H Alanine Aminotransferase (ALT/SGPT) 684 U/L (12-78) H Alkaline Phosphatase 157 U/L (46-116) H Total Protein 5.3 G/DL (6.4-8.2) L Albumin 1.8 G/DL (3.4-5.0) L Globulin 3.5 g/dL Albumin/Globulin Ratio 0.5 (1.0-2.7) L Hepatitis C Antibody Pending Hepatitis C RNA (PCR) IUs/ml Pending Hepatitis C RNA (PCR) log IUs/ml Pending Arterial Blood pH 7.449 (7.350-7.450) Arterial Blood Partial Pressure CO2 31.6 mmHg (35.0-45.0) L Arterial Blood Partial Pressure O2 72.7 mmHg (75.0-100.0) L Arterial Blood HCO3 21.4 mmol/L (22.0-26.0) L Arterial Blood Oxygen Saturation 94.7 % (92.0-98.0) Arterial Blood Base Excess -1.9 Miguel Test Positive Current Medications Medications (Trade) Dose Ordered Sig/Krystyna Route PRN Reason Start Time Stop Time Status Last Admin Dose Admin Acetaminophen (Tylenol) 650 mg Q4H PRN ORAL Fever (temp>100.5F) 08/29/17 14:45 09/28/17 14:44 09/03/17 22:05 Azithromycin 500 mg/Dextrose 275 ml @ 275 mls/hr Q24HRS IV 09/02/17 17:00 09/08/17 17:59 09/03/17 21:27 Chlorhexidine Gluconate (Jyotsna-Hex 2%) 1 applic DAILY@2000 TOPIC 08/30/17 20:00 09/29/17 19:59 09/03/17 21:28 Dextrose (Dextrose 50%) 25 ml STAT PRN IV Hypoglycemia 08/29/17 14:45 09/28/17 14:44 Dextrose (Dextrose 50%) 50 ml STAT PRN IV Hypoglycemia 08/29/17 16:00 09/28/17 15:59 Fentanyl Citrate 1000 mcg/Sodium Chloride 100 ml @ 0 mls/hr Q24H IV 08/31/17 11:00 09/07/17 10:59 09/04/17 00:46 Haloperidol Lactate 10 mg/ Dextrose 57 ml @ 112 mls/hr Q1H PRN IVPB SEVERE AGITATION 09/03/17 10:05 09/29/17 10:04 09/04/17 02:47 Heparin Sodium (Porcine) (Heparin 5000 units/ml) 5,000 units EVERY 12 HOURS SUBQ 08/29/17 21:00 09/28/17 20:59 09/04/17 09:52 Iopamidol (Isovue-370 150ml) 150 ml NOW PRN INJ Radiology Procedure 09/04/17 12:30 09/05/17 12:29 Methadone HCl (Methadone HCl) 5 mg Q6H PRN ORAL For Pain 1-6 09/04/17 11:00 09/11/17 10:44 09/04/17 11:50 Midazolam HCl 100 ml @ 0 mls/hr Q24H PRN IVPB See protocol text 08/29/17 18:30 09/05/17 18:29 09/01/17 08:03 Morphine Sulfate (Morphine Sulfate) 4 mg Q4H PRN IVP Severe Pain (Pain Scale 7-10) 08/29/17 14:45 09/05/17 14:44 09/04/17 08:22 Nitroglycerin (Ntg) 0.4 mg Q5M PRN SL Prn Chest Pain 08/29/17 14:45 09/28/17 14:44 Pantoprazole (Protonix) 40 mg EVERY 12 HOURS IVP 08/29/17 21:00 09/28/17 20:59 09/04/17 09:55 Sodium Bicarbonate 50 ml/ Dextrose/Sodium Chloride 1,000 ml @ 50 mls/hr Q20H IV 09/01/17 14:00 09/30/17 13:59 09/04/17 00:46 Vancomycin HCl (Vanco rx to dose) 1 ea DAILY PRN MISC Per rx protocol 08/29/17 16:45 09/28/17 16:44 Krystal Romero M.D. Sep 04, 2017 15:48
[2017-09-04] MEDS ORDERED: cloNIDine 0.2mg Tab ORAL SCH (16:00)
--- NOTE | 2017-09-04 16:10 | Consultation ---
History of Present Illness General Date patient seen: Sep 04, 2017 Chief Complaint: Overdose Referring physician: MARCELL FERNANDO Reason for Consultation: TRANSAMINITIS Present Illness Allergies: Coded Allergies: NO KNOWN ALLERGIES (Verified Allergy, Unknown, 09/02/17) Medication History Unable to Obtain Active Prescriptions or Reported Meds Patient History Healthcare decision maker Resuscitation status Full Code Advanced Directive on File Physical Exam Last 24 Hour Vital Signs Date Time Temp Pulse Resp B/P (MAP) Pulse Ox O2 Delivery O2 Flow Rate FiO2 09/04/17 12:00 Room Air Room Air 09/04/17 08:00 Room Air Room Air 09/04/17 07:50 Room Air 09/04/17 07:49 95 Room Air 21 09/04/17 07:00 88 20 142/82 (102) 95 09/04/17 06:00 20 09/04/17 06:00 88 21 133/74 (93) 95 09/04/17 05:00 19 09/04/17 05:00 81 21 130/78 (95) 96 09/04/17 04:00 Room Air Room Air 09/04/17 04:00 86 09/04/17 04:00 20 09/04/17 04:00 98.0 86 20 139/78 (98) 96 98.0 09/04/17 03:00 85 21 128/67 (87) 99 09/04/17 03:00 20 09/04/17 02:00 93 22 130/76 (94) 97 09/04/17 02:00 21 09/04/17 01:00 19 09/04/17 01:00 80 22 134/76 (95) 96 09/04/17 00:46 21 09/04/17 00:00 90 09/04/17 00:00 Room Air Room Air 09/04/17 00:00 98.2 90 21 136/71 (92) 97 98.2 09/03/17 23:00 93 22 122/63 (82) 97 09/03/17 22:00 93 23 130/80 (97) 96 09/03/17 21:00 92 21 145/77 (99) 96 09/03/17 20:00 98.4 91 21 120/70 (87) 96 98.4 09/03/17 20:00 91 09/03/17 20:00 Room Air Room Air 09/03/17 19:33 Nasal Cannula 3.0 32 09/03/17 19:00 17 09/03/17 18:00 83 19 124/67 (86) 95 09/03/17 18:00 17 09/03/17 17:30 89 19 144/80 (101) 95 09/03/17 17:00 17 09/03/17 17:00 88 18 141/77 (98) 96 09/03/17 16:30 92 19 132/73 (92) 97 09/03/17 16:30 17 Intake and Output 09/03/17 09/04/17 19:00 07:00 Intake Total 1491.916 ml 620 ml Output Total 69 ml 2326 ml Balance 1422.916 ml -1706 ml Intake Oral 210 ml IV Total 1491.916 ml 410 ml Tube Feeding 0 ml 0 ml Output Urine Total 69 ml 26 ml Hemodialysis UF 2300 ml # Voids 3 # Bowel Movements 7 2 Laboratory Tests Test 09/04/17 05:00 09/04/17 08:50 White Blood Count 15.9 K/UL (4.8-10.8) H Red Blood Count 3.07 M/UL (4.70-6.10) L Hemoglobin 9.8 G/DL (14.2-18.0) L Hematocrit 28.4 % (42.0-52.0) L Mean Corpuscular Volume 93 FL (80-99) Mean Corpuscular Hemoglobin 32.1 PG (27.0-31.0) H Mean Corpuscular Hemoglobin Concent 34.6 G/DL (32.0-36.0) Red Cell Distribution Width 11.7 % (11.6-14.8) Platelet Count 223 K/UL (150-450) Mean Platelet Volume 7.9 FL (6.5-10.1) Neutrophils (%) (Auto) 80.0 % (45.0-75.0) H Lymphocytes (%) (Auto) 6.1 % (20.0-45.0) L Monocytes (%) (Auto) 11.5 % (1.0-10.0) H Eosinophils (%) (Auto) 1.7 % (0.0-3.0) Basophils (%) (Auto) 0.8 % (0.0-2.0) Sodium Level 135 MMOL/L (136-145) L Potassium Level 3.6 MMOL/L (3.5-5.1) Chloride Level 99 MMOL/L (98-107) Carbon Dioxide Level 26 MMOL/L (21-32) Anion Gap 10 mmol/L (5-15) Blood Urea Nitrogen 58 mg/dL (7-18) H Creatinine 7.7 MG/DL (0.55-1.30) H Estimat Glomerular Filtration Rate 7.9 mL/min (>60) Glucose Level 126 MG/DL (74-106) H Calcium Level 8.3 MG/DL (8.5-10.1) L Phosphorus Level 4.0 MG/DL (2.5-4.9) Magnesium Level 2.5 MG/DL (1.8-2.4) H Total Bilirubin 1.1 MG/DL (0.2-1.0) H Direct Bilirubin 0.3 MG/DL (0.0-0.3) Aspartate Amino Transf (AST/SGOT) 736 U/L (15-37) H Alanine Aminotransferase (ALT/SGPT) 684 U/L (12-78) H Alkaline Phosphatase 157 U/L (46-116) H Total Protein 5.3 G/DL (6.4-8.2) L Albumin 1.8 G/DL (3.4-5.0) L Globulin 3.5 g/dL Albumin/Globulin Ratio 0.5 (1.0-2.7) L Hepatitis C Antibody Pending Hepatitis C RNA (PCR) IUs/ml Pending Hepatitis C RNA (PCR) log IUs/ml Pending Arterial Blood pH 7.449 (7.350-7.450) Arterial Blood Partial Pressure CO2 31.6 mmHg (35.0-45.0) L Arterial Blood Partial Pressure O2 72.7 mmHg (75.0-100.0) L Arterial Blood HCO3 21.4 mmol/L (22.0-26.0) L Arterial Blood Oxygen Saturation 94.7 % (92.0-98.0) Arterial Blood Base Excess -1.9 Miguel Test Positive Height (Feet): 5 Height (Inches): 8.00 Weight (Pounds): 181 Medications Current Medications Medications (Trade) Dose Ordered Sig/Krystyna Route PRN Reason Start Time Stop Time Status Last Admin Dose Admin Acetaminophen (Tylenol) 650 mg Q4H PRN ORAL Fever (temp>100.5F) 08/29/17 14:45 09/28/17 14:44 09/03/17 22:05 Cefazolin Sodium 1 gm/Dextrose 55 ml @ 110 mls/hr Q24HRS IVPB 09/04/17 17:00 09/11/17 16:59 Chlorhexidine Gluconate (Jyotsna-Hex 2%) 1 applic DAILY@2000 TOPIC 08/30/17 20:00 09/29/17 19:59 09/03/17 21:28 Clonidine HCl (Catapres tab) 0.2 mg Q6H ORAL 09/04/17 16:00 10/04/17 15:59 Dextrose (Dextrose 50%) 25 ml STAT PRN IV Hypoglycemia 08/29/17 14:45 09/28/17 14:44 Dextrose (Dextrose 50%) 50 ml STAT PRN IV Hypoglycemia 08/29/17 16:00 09/28/17 15:59 Fentanyl Citrate 1000 mcg/Sodium Chloride 100 ml @ 0 mls/hr Q24H IV 08/31/17 11:00 09/07/17 10:59 09/04/17 00:46 Heparin Sodium (Porcine) (Heparin 5000 units/ml) 5,000 units EVERY 12 HOURS SUBQ 08/29/17 21:00 09/28/17 20:59 09/04/17 09:52 Iopamidol (Isovue-370 150ml) 150 ml NOW PRN INJ Radiology Procedure 09/04/17 12:30 09/05/17 12:29 Lorazepam (Ativan) 2 mg TIDPRN PRN ORAL Agitation 09/04/17 16:15 09/11/17 16:14 Methadone HCl (Methadone HCl) 10 mg Q6H PRN ORAL For Pain 1-6 09/04/17 17:00 09/11/17 16:59 Mirtazapine (Remeron) 15 mg BEDTIME ORAL 09/04/17 21:00 10/04/17 20:59 UNV Nitroglycerin (Ntg) 0.4 mg Q5M PRN SL Prn Chest Pain 08/29/17 14:45 09/28/17 14:44 Pantoprazole (Protonix) 40 mg EVERY 12 HOURS IVP 08/29/17 21:00 09/28/17 20:59 09/04/17 09:55 Sodium Bicarbonate 50 ml/ Dextrose/Sodium Chloride 1,000 ml @ 50 mls/hr Q20H IV 09/01/17 14:00 09/30/17 13:59 09/04/17 00:46 Assessment/Plan Assessment/Plan mdd polysubstance dependence opioid and benzo withdrawal -cont methadone increased the dose -cont clonidine -cont ativan prn -cont remeron -psych when medically cleared dc morphine dc midazolam spoke with Leida Irene MD Sep 04, 2017 16:10
[2017-09-04] MEDS ORDERED: LORazepam 1mg tab ORAL PRN ×2 (16:15→22:00)
--- NOTE | 2017-09-04 16:22 | Diagnostic Imaging Report ---
Indication: Pain, status post fall Technique: Supine view of the abdomen Comparison: 09/04/2017 limited upper abdomen Findings: Contrast is seen within the colon; uncertain as to the origin of this as no bowel contrast studies are seen in the patient's folder. Bowel gas pattern is unremarkable. There is a right femoral central venous catheter. No gross bony abnormality. A calcification projects in the epigastric region Impression: No gross acute process Bowel contrast, origin uncertain
[2017-09-04] MEDS ORDERED: ceFAZolin sod 1 GM in D5W 55 ML IVPB SCH (17:00)
--- NOTE | 2017-09-04 18:38 | Neurology Progress Note ---
Interim History Interim History Interim History Mr. Stover feels better today. As per his nurse he has been delirious. He got up on his own and fell earlier. He is now in 2 point soft restraints. He is behaving better now. He is aware that he was indulging in dangerous behavior prior to his hospitalization. Review of Systems Neuro Review of Systems Benign. Objective Physical Exam Last Vital Signs Date Time Temp Pulse Resp B/P (MAP) Pulse Ox O2 Delivery O2 Flow Rate FiO2 09/04/17 17:00 97 23 147/77 (100) 96 09/04/17 16:00 98.1 98.1 09/04/17 16:00 Room Air Room Air 09/04/17 07:49 21 09/03/17 19:33 3.0 Laboratory Tests Test 09/04/17 05:00 09/04/17 08:50 White Blood Count 15.9 K/UL (4.8-10.8) H Red Blood Count 3.07 M/UL (4.70-6.10) L Hemoglobin 9.8 G/DL (14.2-18.0) L Hematocrit 28.4 % (42.0-52.0) L Mean Corpuscular Volume 93 FL (80-99) Mean Corpuscular Hemoglobin 32.1 PG (27.0-31.0) H Mean Corpuscular Hemoglobin Concent 34.6 G/DL (32.0-36.0) Red Cell Distribution Width 11.7 % (11.6-14.8) Platelet Count 223 K/UL (150-450) Mean Platelet Volume 7.9 FL (6.5-10.1) Neutrophils (%) (Auto) 80.0 % (45.0-75.0) H Lymphocytes (%) (Auto) 6.1 % (20.0-45.0) L Monocytes (%) (Auto) 11.5 % (1.0-10.0) H Eosinophils (%) (Auto) 1.7 % (0.0-3.0) Basophils (%) (Auto) 0.8 % (0.0-2.0) Sodium Level 135 MMOL/L (136-145) L Potassium Level 3.6 MMOL/L (3.5-5.1) Chloride Level 99 MMOL/L (98-107) Carbon Dioxide Level 26 MMOL/L (21-32) Anion Gap 10 mmol/L (5-15) Blood Urea Nitrogen 58 mg/dL (7-18) H Creatinine 7.7 MG/DL (0.55-1.30) H Estimat Glomerular Filtration Rate 7.9 mL/min (>60) Glucose Level 126 MG/DL (74-106) H Calcium Level 8.3 MG/DL (8.5-10.1) L Phosphorus Level 4.0 MG/DL (2.5-4.9) Magnesium Level 2.5 MG/DL (1.8-2.4) H Total Bilirubin 1.1 MG/DL (0.2-1.0) H Direct Bilirubin 0.3 MG/DL (0.0-0.3) Aspartate Amino Transf (AST/SGOT) 736 U/L (15-37) H Alanine Aminotransferase (ALT/SGPT) 684 U/L (12-78) H Alkaline Phosphatase 157 U/L (46-116) H Total Protein 5.3 G/DL (6.4-8.2) L Albumin 1.8 G/DL (3.4-5.0) L Globulin 3.5 g/dL Albumin/Globulin Ratio 0.5 (1.0-2.7) L Hepatitis C Antibody Pending Hepatitis C RNA (PCR) IUs/ml Pending Hepatitis C RNA (PCR) log IUs/ml Pending Arterial Blood pH 7.449 (7.350-7.450) Arterial Blood Partial Pressure CO2 31.6 mmHg (35.0-45.0) L Arterial Blood Partial Pressure O2 72.7 mmHg (75.0-100.0) L Arterial Blood HCO3 21.4 mmol/L (22.0-26.0) L Arterial Blood Oxygen Saturation 94.7 % (92.0-98.0) Arterial Blood Base Excess -1.9 Miguel Test Positive Neurologic Exam Objective PHYSICAL EXAMINATION: GENERAL: He is a well-developed, well-nourished, gentleman, lying in an ICU bed undergoing HD. HEAD: Normocephalic and atraumatic. EENT: Examination benign. NECK: No neck rigidity was observed. NEUROLOGIC EXAMINATION: MENTAL STATUS EXAMINATION: He was awake and much more alert. He was oriented to self, [facility] and date. He was able to recll 3/3 words immediately, but could only remember 2/3 in 1 and 3 minutes. He was able to remember presidents Trump through Tao only. SPEECH: He had no dysarthria. LANGUAGE: He had no aphasia. CRANIAL NERVE EXAMINATION: II: The visual dinh were intact on confrontation testing. III, IV & : The external ocular movements were present on oculocephalic maneuvers. The pupils were 3 mm in diameter and reactive sluggishly to light. V & VII: The corneal reflexes were present and equally brisk bilaterally. VIII: He did respond to sounds and had no nystagmus. IX & X: The gag reflex was subdued on manipulating the endotracheal tube. XI: The sternocleidomastoids and trapezii could not be tested adequately. XII: Could not be tested. MOTOR SYSTEM: The tone was normal in all four extremities. Examination of muscle mass revealed no focal wasting. Examination of power revealed G 5/5 power in all muscle groups. SENSORY EXAMINATION: He responded appropriately to light touch. REFLEXES: Trace+ and bilaterally symmetrical at the biceps, triceps, brachioradialis, and knees, 0 at both ankles. The plantar responses were flexor bilaterally. COORDINATION: He performed well on finger to nose testing. STANCE & GAIT: Could not be tested. Impression/Recommendations Diagnostic Impression 1. Mr. Enoch Stover is a 37-year-old, gentleman, of unknown handedness, who was found unconscious in a hotel room on 08/29/2017 after he had used multiple drugs. He was found to be possibly febrile, hypoglycemic, and breathing rapidly. Since then, he has been hospitalized and treated for sepsis. 2. He feels better today. As per his nurse he has been delirious. He got up on his own and fell earlier. He is now in 2 point soft restraints. He is behaving better now. He is aware that he was indulging in dangerous behavior prior to his hospitalization. 3. On neurological examination, at this time, he is awake and much more alert. He is fully oriented. He does have problems with recent and remote memory. His speech and language are normal. His cranial nerves are also functioning normally. His motor function is good and his sensations preserved. His deep tendon reflexes are diminished but his plantar responses are flexor. He also does not demonstrate any definite focal or lateralizing neurological findings. 4. The CT scan of the brain performed on 08/29/2017 and repeated on 09/04/17 is benign for acute pathology. 5. Laboratory data obtained thus far revealed, on admission, his hemoglobin was elevated to 18.4, his WBC was normal at 8,500, but since then his WBCs have peaked to 17,200. His chemistry panel on admission revealed BUN elevated to 31 , creatinine elevated to 3.6, lactic acid elevated to 5.5, bilirubin elevated at 1.2, AST elevated at 478, ALT elevated to 159, CK elevated to greater than 10 ,000, troponin elevated at 1.01, BNP elevated to 2143. His urine toxicology screen was positive for opiates, amphetamines, cocaine, and marijuana. His INR was elevated at 1.2. His TSH is elevated at 4.72. The T3 is low but the T4 is normal. 6. The patient's history, neurological examination, laboratory data, and imaging studies are most compatible with an altered mental state due to a toxic metabolic encephalopathy. 7. The most likely etiology for the encephalopathy is the sepsis, possibly a period of hypoglycemia and ongoing multiple metabolic imbalances and the toxic imbalances. In addition the use of mind-altering drugs could also be contributing. 8. His encephalopathy is improving. Recommendations 1. Continue present management. 2. Try to wean the patient off mind-altering drugs. 3. Continue aggressive treatment of the patient's sepsis. 4. Aggressive management of toxic/metabolic imbalances. 5. Observe closely. Chris Ricketts M.D., M.S.P.CHRIS GARDINER Sep 04, 2017 18:38
[2017-09-04] MEDS: Dyna-Hex 2% Top Sol 2oz TOPIC SCH (20:44)
[2017-09-04] MEDS ORDERED: Nitroglycerin Subl 0.4mg tab SL PRN (21:45)
[2017-09-04] MEDS: cloNIDine 0.2mg Tab ORAL SCH (23:09)
[2017-09-05] VITALS (8 sets, daily range): BP systolic 115–166; BP diastolic 66–86
[2017-09-05] MEDS: cloNIDine 0.2mg Tab ORAL SCH ×4 (04:07→22:13)
[2017-09-05 05:17] LABS: HEMATOCRIT 28.8 % (42.0-52.0); HEMOGLOBIN 9.9 G/DL (14.2-18.0); MEAN CORPUSCULAR VOLUME 91 FL (80-99); PLATELET COUNT 312 K/UL (150-450); RED BLOOD COUNT 3.16 M/UL (4.70-6.10); RED CELL DISTRIBUTION WIDTH 11.4 % (11.6-14.8); WHITE BLOOD COUNT 20.1 K/UL (4.8-10.8)
[2017-09-05 05:48] LABS: ALANINE AMINOTRANSFERASE 529 U/L (12-78); ALBUMIN 1.8 G/DL (3.4-5.0); ALBUMIN/GLOBULIN RATIO 0.5 (1.0-2.7); ALKALINE PHOSPHATASE 145 U/L (46-116); ANION GAP 11 mmol/L (5-15); ASPARTATE AMINO TRANSFERASE 398 U/L (15-37); BILIRUBIN,TOTAL 0.7 MG/DL (0.2-1.0); BLOOD UREA NITROGEN 80 mg/dL (7-18); CALCIUM 8.3 MG/DL (8.5-10.1); CARBON DIOXIDE 23 MMOL/L (21-32); CHLORIDE 99 MMOL/L (98-107); CREATININE 10.2 MG/DL (0.55-1.30); PHOSPHORUS 4.5 MG/DL (2.5-4.9); SODIUM 133 MMOL/L (136-145)
[2017-09-05 06:20] LABS: CREATINE KINASE 6010 U/L (26-308)
[2017-09-05] MEDS ORDERED: Heparin 5000 units/ml inj SUBQ SCH (09:00)
[2017-09-05] MEDS ORDERED: Pantoprazole Inj IVP SCH (09:00)
--- NOTE | 2017-09-05 09:22 | Nephrology Progress Note ---
Assessment/Plan Assessment 1. Acute rhabdomyolysis.(anuric ) 2. Hypocalcemia. 3. Hyperkalemia. 4. Lactic acidosis. 5. Shock liver. 6. History of multiple drug use. Plan continue bicarbonate drip dialysis today monitoring renal function monitoring out put Subjective Subjective extubated alert and awake Objective Objective Last 24 Hour Vital Signs Date Time Temp Pulse Resp B/P (MAP) Pulse Ox O2 Delivery O2 Flow Rate FiO2 09/05/17 08:00 98.8 69 21 123/73 (90) 96 98.8 09/05/17 08:00 Room Air Room Air 09/05/17 04:07 115/66 09/05/17 04:00 Room Air Room Air 09/05/17 04:00 71 09/05/17 04:00 98.9 73 23 115/66 (82) 97 98.9 09/05/17 00:00 Room Air Room Air 09/05/17 00:00 89 09/05/17 00:00 98.9 79 20 126/75 (92) 97 98.9 09/04/17 23:09 140/74 09/04/17 20:00 98.6 94 20 140/74 (96) 97 98.6 09/04/17 20:00 81 09/04/17 20:00 Room Air Room Air 09/04/17 19:10 96 Room Air 21 09/04/17 19:10 Room Air 21 09/04/17 18:00 91 23 163/88 (113) 96 09/04/17 17:00 97 23 147/77 (100) 96 09/04/17 16:44 160/87 09/04/17 16:00 98.1 90 23 160/87 (111) 93 98.1 09/04/17 16:00 90 09/04/17 16:00 Room Air Room Air 09/04/17 15:00 92 23 142/78 (99) 93 09/04/17 14:00 92 23 148/85 (106) 93 09/04/17 13:00 80 21 148/72 (97) 96 09/04/17 12:00 80 09/04/17 12:00 98.3 81 23 154/89 (110) 94 98.3 09/04/17 12:00 Room Air Room Air 09/04/17 11:00 88 24 150/79 (102) 95 09/04/17 10:00 89 24 155/87 (109) 95 Intake and Output 09/04/17 09/05/17 19:00 07:00 Intake Total 1046 ml 550 ml Balance 1046 ml 550 ml Intake Oral 100 ml 150 ml IV Total 946 ml 400 ml Tube Feeding 0 ml # Voids 1 # Bowel Movements 6 4 Laboratory Tests 09/05/17 04:27: White Blood Count 20.1H, Red Blood Count 3.16L, Hemoglobin 9.9L, Hematocrit 28.8L, Mean Corpuscular Volume 91, Mean Corpuscular Hemoglobin 31.4H, Mean Corpuscular Hemoglobin Concent 34.5, Red Cell Distribution Width 11.4L, Platelet Count 312, Mean Platelet Volume 6.4L, Neutrophils (%) (Auto) , Lymphocytes (%) (Auto) , Monocytes (%) (Auto) , Eosinophils (%) (Auto) , Basophils (%) (Auto) , Neutrophils % (Manual) [Pending], Lymphocytes % (Manual) [Pending], Platelet Estimate [Pending], Platelet Morphology [Pending], Erythrocyte Sedimentation Rate 90H, Sodium Level 133L, Potassium Level 4.0, Chloride Level 99, Carbon Dioxide Level 23, Anion Gap 11, Blood Urea Nitrogen 80H, Creatinine 10.2H, Estimat Glomerular Filtration Rate 5.7, Glucose Level 112H, Calcium Level 8.3L, Phosphorus Level 4.5, Magnesium Level 2.9H, Total Bilirubin 0.7, Aspartate Amino Transf (AST/SGOT) 398H, Alanine Aminotransferase (ALT/SGPT) 529H, Alkaline Phosphatase 145H, Total Creatine Kinase 6010H, C- Reactive Protein, Quantitative 10.2H, Total Protein 5.3L, Albumin 1.8L, Globulin 3.5, Albumin/Globulin Ratio 0.5L Height (Feet): 5 Height (Inches): 8.00 Weight (Pounds): 182 Objective HEAD AND NECK: No JVP. No LAD. G-tube is in place. Head is atraumatic and normocephalic. LUNGS: He has decreased breathing sounds on the both sides. CARDIAC: Regular rate and rhythm. S1 and S2. No murmur. No rub. ABDOMEN: Soft. Bowel sounds positive. EXTREMITIES: No edema. No clubbing. No cyanosis. Aixa Veloz MD Sep 05, 2017 09:22
--- NOTE | 2017-09-05 11:35 | Pulmonolgy Critical Care Note ---
Critical Care - Asmt/Plan Problems: (1) Respiratory failure (2) Aspiration pneumonia (3) Rhabdomyolysis (4) LUCRECIA (acute kidney injury) (5) NSTEMI (non-ST elevated myocardial infarction) (6) Substance abuse Respiratory: monitor respiratory rate, adjust FIO2, CXR Cardiac: start pressors, continue pressors, continue to monitor HR/BP Renal: F/U I&O, check electrolytes Infectious Disease: check cultures Gastrointestinal: continue feedings/current rate, hold feedings Endocrine: monitor blood sugar, check TSH Hematologic: monitor H/H, transfuse if hgb<8.5 Neurologic: PRN Ativan, keep patient comfortable Affect: PRN ativan Prophylaxis: Protonix 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, 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 Discussed with: nurses, consultants, telephonic case managerindustrial relations manager - Objective Last 24 Hour Vital Signs Date Time Temp Pulse Resp B/P (MAP) Pulse Ox O2 Delivery O2 Flow Rate FiO2 09/05/17 10:00 107/62 09/05/17 08:00 71 09/05/17 08:00 98.8 69 21 123/73 (90) 96 98.8 09/05/17 08:00 Room Air Room Air 09/05/17 04:07 115/66 09/05/17 04:00 Room Air Room Air 09/05/17 04:00 71 09/05/17 04:00 98.9 73 23 115/66 (82) 97 98.9 09/05/17 00:00 Room Air Room Air 09/05/17 00:00 89 09/05/17 00:00 98.9 79 20 126/75 (92) 97 98.9 09/04/17 23:09 140/74 09/04/17 20:00 98.6 94 20 140/74 (96) 97 98.6 09/04/17 20:00 81 09/04/17 20:00 Room Air Room Air 09/04/17 19:10 96 Room Air 21 09/04/17 19:10 Room Air 21 09/04/17 18:00 91 23 163/88 (113) 96 09/04/17 17:00 97 23 147/77 (100) 96 09/04/17 16:44 160/87 09/04/17 16:00 98.1 90 23 160/87 (111) 93 98.1 09/04/17 16:00 90 09/04/17 16:00 Room Air Room Air 09/04/17 15:00 92 23 142/78 (99) 93 09/04/17 14:00 92 23 148/85 (106) 93 09/04/17 13:00 80 21 148/72 (97) 96 09/04/17 12:00 80 09/04/17 12:00 98.3 81 23 154/89 (110) 94 98.3 09/04/17 12:00 Room Air Room Air Status: awake Condition: critical HEENT: atraumatic Lungs: clear Heart: HR/BP stable, HR/BP unstable Abdomen: soft, active bowel sounds Decubiti: stage Micro: Microbiology Date/Time Source Procedure Growth Status 09/02/17 16:40 Blood Blood Culture - Preliminary NO GROWTH AFTER 48 HOURS Resulted 09/02/17 16:30 Blood Blood Culture - Preliminary NO GROWTH AFTER 48 HOURS Resulted 09/02/17 17:20 Sputum Gram Stain - Final Complete 09/02/17 17:20 Sputum Culture - Final Staphylococcus Aureus Complete 09/04/17 21:10 Stool Clostridium difficile Toxin Assay - Final Complete Accucheck: 96 Critical Care - Subjective ROS Limited/Unobtainable: No Condition: critical EKG Rhythm: Sinus Rhythm FI02: 21 Vent Support Breath Rate: 20 Vent Support Mode: AC Vent Tidal Volume: 650 Sputum Amount: Small PEEP: 5.0 PIP: 49 Tube Feeding Amount: 0 I&O: Intake and Output 09/04/17 09/05/17 19:00 07:00 Intake Total 1046 ml 550 ml Balance 1046 ml 550 ml Intake Oral 100 ml 150 ml IV Total 946 ml 400 ml Tube Feeding 0 ml # Voids 1 # Bowel Movements 6 4 ET-Tube: 7.5 ET Position: 23 Labs: Laboratory Tests Test 09/05/17 04:27 White Blood Count 20.1 K/UL (4.8-10.8) H Red Blood Count 3.16 M/UL (4.70-6.10) L Hemoglobin 9.9 G/DL (14.2-18.0) L Hematocrit 28.8 % (42.0-52.0) L Mean Corpuscular Volume 91 FL (80-99) Mean Corpuscular Hemoglobin 31.4 PG (27.0-31.0) H Mean Corpuscular Hemoglobin Concent 34.5 G/DL (32.0-36.0) Red Cell Distribution Width 11.4 % (11.6-14.8) L Platelet Count 312 K/UL (150-450) Mean Platelet Volume 6.4 FL (6.5-10.1) L Neutrophils (%) (Auto) % (45.0-75.0) Lymphocytes (%) (Auto) % (20.0-45.0) Monocytes (%) (Auto) % (1.0-10.0) Eosinophils (%) (Auto) % (0.0-3.0) Basophils (%) (Auto) % (0.0-2.0) Differential Total Cells Counted 100 Neutrophils % (Manual) 78 % (45-75) H Lymphocytes % (Manual) 5 % (20-45) L Monocytes % (Manual) 10 % (1-10) Eosinophils % (Manual) 1 % (0-3) Basophils % (Manual) 0 % (0-2) Band Neutrophils 6 % (0-8) Platelet Estimate Adequate Platelet Morphology Normal Red Blood Cell Morphology Normal Erythrocyte Sedimentation Rate 90 MM/HR (0-15) H Sodium Level 133 MMOL/L (136-145) L Potassium Level 4.0 MMOL/L (3.5-5.1) Chloride Level 99 MMOL/L (98-107) Carbon Dioxide Level 23 MMOL/L (21-32) Anion Gap 11 mmol/L (5-15) Blood Urea Nitrogen 80 mg/dL (7-18) H Creatinine 10.2 MG/DL (0.55-1.30) H Estimat Glomerular Filtration Rate 5.7 mL/min (>60) Glucose Level 112 MG/DL (74-106) H Calcium Level 8.3 MG/DL (8.5-10.1) L Phosphorus Level 4.5 MG/DL (2.5-4.9) Magnesium Level 2.9 MG/DL (1.8-2.4) H Total Bilirubin 0.7 MG/DL (0.2-1.0) Aspartate Amino Transf (AST/SGOT) 398 U/L (15-37) H Alanine Aminotransferase (ALT/SGPT) 529 U/L (12-78) H Alkaline Phosphatase 145 U/L (46-116) H Total Creatine Kinase 6010 U/L (26-308) H C-Reactive Protein, Quantitative 10.2 mg/dL (0.00-0.90) H Total Protein 5.3 G/DL (6.4-8.2) L Albumin 1.8 G/DL (3.4-5.0) L Globulin 3.5 g/dL Albumin/Globulin Ratio 0.5 (1.0-2.7) L Arpita Andre MD Sep 05, 2017 11:35
--- NOTE | 2017-09-05 12:15 | Diagnostic Imaging Report ---
Indication: Pain, Status post fall Technique: 2 views of the right ankle Comparison: none Findings: Exam is limited as only 2 views were obtained. No gross acute fractures or dislocations. Joint spaces are preserved. There is a small plantar spur No acute fractures. No dislocations. Joint spaces are preserved. Normal mineralization. No radiopaque foreign body. Impression: Somewhat limited exam. No gross acute bony trauma
--- NOTE | 2017-09-05 12:21 | Diagnostic Imaging Report ---
. Indication: Pain, status post fall Technique: 2 views right foot Comparison: None Findings: Exam is somewhat limited as only 2 views were obtained. There is mild metatarsus adductus and mild hallux valgus. No definite acute fractures. No dislocations. There is a small plantar spur. The joint spaces are preserved Impression: Negative
--- NOTE | 2017-09-05 13:33 | General Progress Note ---
Assessment/Plan Status: stable Assessment/Plan mdd polysubstance dependence opioid and benzo withdrawal -cont methadone increased the dose -cont clonidine/ decrease the dose -cont ativan prn -cont remeron -psych when medically cleared Subjective Date patient seen: Sep 05, 2017 Neurologic/Psychiatric: Reports: anxiety, depressed, emotional problems Allergies: Coded Allergies: NO KNOWN ALLERGIES (Verified Allergy, Unknown, 09/02/17) Subjective the pt is more stable. he stated that he was depressed per mom he has suicidal thought. the pt denied si " I just used too much." Objective Last 24 Hour Vital Signs Date Time Temp Pulse Resp B/P (MAP) Pulse Ox O2 Delivery O2 Flow Rate FiO2 09/05/17 12:00 98.6 75 15 130/79 (96) 97 98.6 09/05/17 12:00 Room Air Room Air 09/05/17 10:00 107/62 09/05/17 08:00 71 09/05/17 08:00 98.8 69 21 123/73 (90) 96 98.8 09/05/17 08:00 Room Air Room Air 09/05/17 04:07 115/66 09/05/17 04:00 Room Air Room Air 09/05/17 04:00 71 09/05/17 04:00 98.9 73 23 115/66 (82) 97 98.9 09/05/17 00:00 Room Air Room Air 09/05/17 00:00 89 09/05/17 00:00 98.9 79 20 126/75 (92) 97 98.9 09/04/17 23:09 140/74 09/04/17 20:00 98.6 94 20 140/74 (96) 97 98.6 09/04/17 20:00 81 09/04/17 20:00 Room Air Room Air 09/04/17 19:10 96 Room Air 21 09/04/17 19:10 Room Air 21 09/04/17 18:00 91 23 163/88 (113) 96 09/04/17 17:00 97 23 147/77 (100) 96 09/04/17 16:44 160/87 09/04/17 16:00 98.1 90 23 160/87 (111) 93 98.1 09/04/17 16:00 90 09/04/17 16:00 Room Air Room Air 09/04/17 15:00 92 23 142/78 (99) 93 09/04/17 14:00 92 23 148/85 (106) 93 Intake and Output 09/04/17 09/05/17 19:00 07:00 Intake Total 1046 ml 550 ml Balance 1046 ml 550 ml Intake Oral 100 ml 150 ml IV Total 946 ml 400 ml Tube Feeding 0 ml # Voids 1 # Bowel Movements 6 4 Laboratory Tests 09/05/17 04:27: White Blood Count 20.1H, Red Blood Count 3.16L, Hemoglobin 9.9L, Hematocrit 28.8L, Mean Corpuscular Volume 91, Mean Corpuscular Hemoglobin 31.4H, Mean Corpuscular Hemoglobin Concent 34.5, Red Cell Distribution Width 11.4L, Platelet Count 312, Mean Platelet Volume 6.4L, Neutrophils (%) (Auto) , Lymphocytes (%) (Auto) , Monocytes (%) (Auto) , Eosinophils (%) (Auto) , Basophils (%) (Auto) , Differential Total Cells Counted 100, Neutrophils % ( Manual) 78H, Lymphocytes % (Manual) 5L, Monocytes % (Manual) 10, Eosinophils % ( Manual) 1, Basophils % (Manual) 0, Band Neutrophils 6, Platelet Estimate Adequate, Platelet Morphology Normal, Red Blood Cell Morphology Normal, Erythrocyte Sedimentation Rate 90H, Sodium Level 133L, Potassium Level 4.0, Chloride Level 99, Carbon Dioxide Level 23, Anion Gap 11, Blood Urea Nitrogen 80H, Creatinine 10.2H, Estimat Glomerular Filtration Rate 5.7, Glucose Level 112H, Calcium Level 8.3L, Phosphorus Level 4.5, Magnesium Level 2.9H, Total Bilirubin 0.7, Aspartate Amino Transf (AST/SGOT) 398H, Alanine Aminotransferase (ALT/SGPT) 529H, Alkaline Phosphatase 145H, Total Creatine Kinase 6010H, C- Reactive Protein, Quantitative 10.2H, Total Protein 5.3L, Albumin 1.8L, Globulin 3.5, Albumin/Globulin Ratio 0.5L Height (Feet): 5 Height (Inches): 8.00 Weight (Pounds): 182 General Appearance: no apparent distress, alert Neurologic: oriented x 3, responsive Leida Decker MD Sep 05, 2017 13:33
--- NOTE | 2017-09-05 13:52 | General Progress Note ---
Assessment/Plan Problem List: (1) Substance abuse ICD Codes: F19.10 - Other psychoactive substance abuse, uncomplicated SNOMED: 63585390 (2) Respiratory failure ICD Codes: J96.90 - Respiratory failure, unspecified, unspecified whether with hypoxia or hypercapnia SNOMED: 317094517 Qualifiers: Qualified Codes: J96.01 - Acute respiratory failure with hypoxia (3) Rhabdomyolysis ICD Codes: M62.82 - Rhabdomyolysis SNOMED: 209280817 Qualifiers: Qualified Codes: T79.6XXA - Traumatic ischemia of muscle, initial encounter (4) NSTEMI (non-ST elevated myocardial infarction) ICD Codes: I21.4 - Non-ST elevation (NSTEMI) myocardial infarction SNOMED: 008496768 (5) LUCRECIA (acute kidney injury) ICD Codes: N17.9 - Acute kidney failure, unspecified SNOMED: 83129729 Status: stable, progressing Assessment/Plan vent abx neuro psyc eval cbc bmp am Subjective Allergies: Coded Allergies: NO KNOWN ALLERGIES (Verified Allergy, Unknown, 09/02/17) All Systems: reviewed and negative except above Subjective sl anxious in bed Objective Last 24 Hour Vital Signs Date Time Temp Pulse Resp B/P (MAP) Pulse Ox O2 Delivery O2 Flow Rate FiO2 09/05/17 12:00 98.6 75 15 130/79 (96) 97 98.6 09/05/17 12:00 Room Air Room Air 09/05/17 12:00 75 09/05/17 10:00 107/62 09/05/17 08:00 71 09/05/17 08:00 98.8 69 21 123/73 (90) 96 98.8 09/05/17 08:00 Room Air Room Air 09/05/17 04:07 115/66 09/05/17 04:00 Room Air Room Air 09/05/17 04:00 71 09/05/17 04:00 98.9 73 23 115/66 (82) 97 98.9 09/05/17 00:00 Room Air Room Air 09/05/17 00:00 89 09/05/17 00:00 98.9 79 20 126/75 (92) 97 98.9 09/04/17 23:09 140/74 09/04/17 20:00 98.6 94 20 140/74 (96) 97 98.6 09/04/17 20:00 81 09/04/17 20:00 Room Air Room Air 09/04/17 19:10 96 Room Air 21 09/04/17 19:10 Room Air 21 09/04/17 18:00 91 23 163/88 (113) 96 09/04/17 17:00 97 23 147/77 (100) 96 09/04/17 16:44 160/87 09/04/17 16:00 98.1 90 23 160/87 (111) 93 98.1 09/04/17 16:00 90 09/04/17 16:00 Room Air Room Air 09/04/17 15:00 92 23 142/78 (99) 93 09/04/17 14:00 92 23 148/85 (106) 93 Intake and Output 09/04/17 09/05/17 19:00 07:00 Intake Total 1046 ml 550 ml Balance 1046 ml 550 ml Intake Oral 100 ml 150 ml IV Total 946 ml 400 ml Tube Feeding 0 ml # Voids 1 # Bowel Movements 6 4 Laboratory Tests 09/05/17 04:27: White Blood Count 20.1H, Red Blood Count 3.16L, Hemoglobin 9.9L, Hematocrit 28.8L, Mean Corpuscular Volume 91, Mean Corpuscular Hemoglobin 31.4H, Mean Corpuscular Hemoglobin Concent 34.5, Red Cell Distribution Width 11.4L, Platelet Count 312, Mean Platelet Volume 6.4L, Neutrophils (%) (Auto) , Lymphocytes (%) (Auto) , Monocytes (%) (Auto) , Eosinophils (%) (Auto) , Basophils (%) (Auto) , Differential Total Cells Counted 100, Neutrophils % ( Manual) 78H, Lymphocytes % (Manual) 5L, Monocytes % (Manual) 10, Eosinophils % ( Manual) 1, Basophils % (Manual) 0, Band Neutrophils 6, Platelet Estimate Adequate, Platelet Morphology Normal, Red Blood Cell Morphology Normal, Erythrocyte Sedimentation Rate 90H, Sodium Level 133L, Potassium Level 4.0, Chloride Level 99, Carbon Dioxide Level 23, Anion Gap 11, Blood Urea Nitrogen 80H, Creatinine 10.2H, Estimat Glomerular Filtration Rate 5.7, Glucose Level 112H, Calcium Level 8.3L, Phosphorus Level 4.5, Magnesium Level 2.9H, Total Bilirubin 0.7, Aspartate Amino Transf (AST/SGOT) 398H, Alanine Aminotransferase (ALT/SGPT) 529H, Alkaline Phosphatase 145H, Total Creatine Kinase 6010H, C- Reactive Protein, Quantitative 10.2H, Total Protein 5.3L, Albumin 1.8L, Globulin 3.5, Albumin/Globulin Ratio 0.5L Height (Feet): 5 Height (Inches): 8.00 Weight (Pounds): 182 General Appearance: lethargic EENT: normal ENT inspection Neck: normal alignment Cardiovascular: normal peripheral pulses, normal rate, regular rhythm Respiratory/Chest: chest wall non-tender, lungs clear, normal breath sounds Abdomen: normal bowel sounds, non tender, soft Extremities: normal inspection Edema: no edema noted Arm (L), no edema noted Arm (R), no edema noted Leg (L), no edema noted Leg (R), no edema noted Pedal (L), no edema noted Pedal (R), no edema noted Generalized Neurologic: motor weakness Skin: normal pigmentation, warm/dry Reid Anaya DO Sep 05, 2017 13:52
--- NOTE | 2017-09-05 14:24 | GI Progress Note ---
Assessment/Plan Problems: (1) Severe sepsis ICD Codes: A41.9 - Sepsis, unspecified organism; R65.20 - Severe sepsis without septic shock SNOMED: 06637786 (2) Rhabdomyolysis ICD Codes: M62.82 - Rhabdomyolysis SNOMED: 230285557 Qualifiers: Qualified Codes: T79.6XXA - Traumatic ischemia of muscle, initial encounter (3) Aspiration pneumonia ICD Codes: J69.0 - Pneumonitis due to inhalation of food and vomit SNOMED: 386026412 Qualifiers: Qualified Codes: J69.0 - Pneumonitis due to inhalation of food and vomit (4) Substance abuse ICD Codes: F19.10 - Other psychoactive substance abuse, uncomplicated SNOMED: 24484949 (5) Transaminitis ICD Codes: R74.0 - Nonspecific elevation of levels of transaminase and lactic acid dehydrogenase [LDH] SNOMED: 136919605, 503828295 Status: progressing Status Narrative Discussed with Dr. Chavez. Assessment/Plan Hep A immunity Hep C positive extubated transaminitis >> downtrending regular diet, tolerating fu labs, trend LFTs supportive care outpatient Hep C tx The patient was seen and examined at bedside and all new and available data was reviewed in the patients chart. I agree with the above findings, impression and plan. (Patient seen earlier today. Signature stamp does not reflect patient encounter time.). - Efrain Chavez MD Subjective Subjective generalized weakness Objective Last 24 Hour Vital Signs Date Time Temp Pulse Resp B/P (MAP) Pulse Ox O2 Delivery O2 Flow Rate FiO2 09/05/17 12:00 98.6 75 15 130/79 (96) 97 98.6 09/05/17 12:00 Room Air Room Air 09/05/17 12:00 75 09/05/17 10:00 107/62 09/05/17 08:00 71 09/05/17 08:00 98.8 69 21 123/73 (90) 96 98.8 09/05/17 08:00 Room Air Room Air 09/05/17 04:07 115/66 09/05/17 04:00 Room Air Room Air 09/05/17 04:00 71 09/05/17 04:00 98.9 73 23 115/66 (82) 97 98.9 09/05/17 00:00 Room Air Room Air 09/05/17 00:00 89 09/05/17 00:00 98.9 79 20 126/75 (92) 97 98.9 09/04/17 23:09 140/74 09/04/17 20:00 98.6 94 20 140/74 (96) 97 98.6 09/04/17 20:00 81 09/04/17 20:00 Room Air Room Air 09/04/17 19:10 96 Room Air 21 09/04/17 19:10 Room Air 21 09/04/17 18:00 91 23 163/88 (113) 96 09/04/17 17:00 97 23 147/77 (100) 96 09/04/17 16:44 160/87 09/04/17 16:00 98.1 90 23 160/87 (111) 93 98.1 09/04/17 16:00 90 09/04/17 16:00 Room Air Room Air 09/04/17 15:00 92 23 142/78 (99) 93 Intake and Output 09/04/17 09/05/17 19:00 07:00 Intake Total 1046 ml 550 ml Balance 1046 ml 550 ml Intake Oral 100 ml 150 ml IV Total 946 ml 400 ml Tube Feeding 0 ml # Voids 1 # Bowel Movements 6 4 Laboratory Tests Test 09/05/17 04:27 White Blood Count 20.1 K/UL (4.8-10.8) H Red Blood Count 3.16 M/UL (4.70-6.10) L Hemoglobin 9.9 G/DL (14.2-18.0) L Hematocrit 28.8 % (42.0-52.0) L Mean Corpuscular Volume 91 FL (80-99) Mean Corpuscular Hemoglobin 31.4 PG (27.0-31.0) H Mean Corpuscular Hemoglobin Concent 34.5 G/DL (32.0-36.0) Red Cell Distribution Width 11.4 % (11.6-14.8) L Platelet Count 312 K/UL (150-450) Mean Platelet Volume 6.4 FL (6.5-10.1) L Neutrophils (%) (Auto) % (45.0-75.0) Lymphocytes (%) (Auto) % (20.0-45.0) Monocytes (%) (Auto) % (1.0-10.0) Eosinophils (%) (Auto) % (0.0-3.0) Basophils (%) (Auto) % (0.0-2.0) Differential Total Cells Counted 100 Neutrophils % (Manual) 78 % (45-75) H Lymphocytes % (Manual) 5 % (20-45) L Monocytes % (Manual) 10 % (1-10) Eosinophils % (Manual) 1 % (0-3) Basophils % (Manual) 0 % (0-2) Band Neutrophils 6 % (0-8) Platelet Estimate Adequate Platelet Morphology Normal Red Blood Cell Morphology Normal Erythrocyte Sedimentation Rate 90 MM/HR (0-15) H Sodium Level 133 MMOL/L (136-145) L Potassium Level 4.0 MMOL/L (3.5-5.1) Chloride Level 99 MMOL/L (98-107) Carbon Dioxide Level 23 MMOL/L (21-32) Anion Gap 11 mmol/L (5-15) Blood Urea Nitrogen 80 mg/dL (7-18) H Creatinine 10.2 MG/DL (0.55-1.30) H Estimat Glomerular Filtration Rate 5.7 mL/min (>60) Glucose Level 112 MG/DL (74-106) H Calcium Level 8.3 MG/DL (8.5-10.1) L Phosphorus Level 4.5 MG/DL (2.5-4.9) Magnesium Level 2.9 MG/DL (1.8-2.4) H Total Bilirubin 0.7 MG/DL (0.2-1.0) Aspartate Amino Transf (AST/SGOT) 398 U/L (15-37) H Alanine Aminotransferase (ALT/SGPT) 529 U/L (12-78) H Alkaline Phosphatase 145 U/L (46-116) H Total Creatine Kinase 6010 U/L (26-308) H C-Reactive Protein, Quantitative 10.2 mg/dL (0.00-0.90) H Total Protein 5.3 G/DL (6.4-8.2) L Albumin 1.8 G/DL (3.4-5.0) L Globulin 3.5 g/dL Albumin/Globulin Ratio 0.5 (1.0-2.7) L Microbiology Date/Time Source Procedure Growth Status 09/04/17 21:10 Stool Clostridium difficile Toxin Assay - Final Complete Height (Feet): 5 Height (Inches): 8.00 Weight (Pounds): 182 General Appearance: WD/WN, no apparent distress, alert Cardiovascular: normal rate Respiratory/Chest: normal breath sounds, no respiratory distress Abdominal Exam: normal bowel sounds, non tender, soft Extremities: normal range of motion, non-tender Carlos Lopez NP Sep 05, 2017 14:24
--- NOTE | 2017-09-05 15:53 | Diagnostic Imaging Report ---
Clinical Indication: Abdominal pain Technique: Patient given oral contrast. IV administration nonionic contrast. Venous phase spiral acquisition obtained through the abdomen and pelvis. Multiplanar reconstructions were generated. Total dose length product 723.05 mGycm. CTDIvol(s) 13.68 mGy. Dose reduction achieved using automated exposure control Comparison: none Findings: Exam is somewhat limited. The top of the liver was not included in the original imaging volume, and patient did not wish to have repeat images performed. There is also mild image degradation due to respiratory motion artifact. The appendix is not definitely identified, but no findings to suggest acute appendicitis are evident. Contrast is seen throughout the entirety of the small bowel and throughout the entirety of the colon. There is no evidence of diverticulosis or diverticulitis. No small bowel distention or small bowel wall thickening. There is trace free intraperitoneal fluid. No loculated fluid collections are demonstrated. No free intraperitoneal gas. The visualized portions of the liver, gallbladder, bile ducts, pancreas, spleen, adrenals, kidneys are all unremarkable. There are prominent although not frankly enlarged para-aortic lymph nodes.. No pelvic mass or adenopathy. There is gas within the bladder lumen There is diffuse edema of the subcutaneous, mesenteric, and retroperitoneal fat. There is fairly geographic and fairly symmetrical low attenuation of the lateral gluteus maximums muscles bilaterally, and much of the gluteus medius and minimus muscles. Uncertain as to whether this is a real finding versus artifact due to beam hardening. There is also slight thickening and low-attenuation of the left obturator internus muscle which is slightly asymmetric as compared to the right. There is a right groin central venous catheter. There is a small to moderate left pleural effusion. There is trace pleural fluid on the right. There are compressive atelectatic changes of both lung bases posteriorly. The bones are unremarkable except for mild degenerative spondylosis at the lumbosacral junction. Impression: Somewhat limited exam, as described Evidence of anasarca, with diffuse edema of the subcutaneous, mesenteric, and retroperitoneal fat, trace ascites fluid, and bilateral pleural effusions Very questionable low-attenuation of the bilateral gluteal musculature, as described, as well as slight thickening and low-attenuation of the left obturator internus muscle. This could be artifactual due to beam hardening. Nonetheless, the possibility of myositis should be considered. MRI of the pelvis may be useful to clarify if clinically indicated Compressive atelectasis at both lung bases Gas within the bladder lumen. Most likely due to recent instrumentation. If no recent instrumentation, then the possibility of emphysematous cystitis should be considered Right groin central venous catheter Incidental findings degenerative spondylosis The CT scanner at [facility] is accredited by the [employer] and the scans are performed using protocols designed to limit radiation exposure to as low as reasonably achievable to attain images of sufficient resolution adequate for diagnostic evaluation.
--- NOTE | 2017-09-05 16:45 | Infectious Diseases Prog Note ---
Assessment/Plan Assessment/Plan Assessment: Shock, SP Aspiration PNA -CXR 09/04 : Interim development of hazy interstitial and airspace disease in the right lung. This may to some extent be an artifact of less optimal inspiration, however. Interim extubation -CXR 09/03: Marked improvement of previously demonstrated bilateral pulmonary edema, over one day -CXR:More consolidated areas within the diffuse airspace opacity within the right lung and now possible right pleural effusion. The patient is rotated to the right. Interval increase in patchy left perihilar airspace opacities. May represent component of pulmonary edema or aspiration pneumonitis. -sp cx normal ann; repeat sp cx MSSA -legionella ag urine neg Rule out sepsis -u/a wbc 5-10, nit neg, leuk +1; cx neg -Bcx NTD -2d Echo (limited but no vegetations seen) Fever/leukocytosis- suspect reactive and 2ry to PNA; fever improving, Leukocytosis increasing -Cdiff neg -v/duplex no DVT Drug overdose -UDS + opiates, amphetamines, THC, cocaine -+empty heroin needles (found on hotel room) -HIV ab sc and VL neg, RPR/FTA, GC/CL neg Multiorgan failure -LUCRECIA, - on HD -Transaminitis, (shock liver); improving -VDRF (airway protection)- now extubaetd 09/03 Lactic acidosis; resolved Rhabdomyolisis; improving3 Pancreatitis- drug induced -neg alcohol levels Encephalopathy- 2ry to above- r.o ischemia, r/o abscess (fever, IVDA +); much improved -CT head 09/04: Unusual scalp contusion, new since prior study 08/29/2017. No evidence of underlying calvarial trauma. Negative for acute intracranial bleed or mass effect -CT head 08/29: Limited exam due to motion artifact. No gross acute intracranial bleed or mass effect Hep C +; VL pending -ABD US: Gallbladder sludge. Negative for gallstones or dilated ducts. Equivocal increased hepatic echogenicity, if real could indicate hepatocellular disease such as fatty change. Borderline hepatomegaly. Mildly increased renal echogenicity, could indicate medical renal disease. Correlate with renal function tests. Left pleural effusion -Hep A and B immune Plan: -Continue IV Ancef abx d # 8/10-14 for MSSA PNA -09/04 SP IV Azithromycin #3 -09/03 SP Zosyn #6 -Repeat Bcx x2 -f/u cx -if persistent fevers may need KATELYN to eval for endocarditis given +IVDA -Monitor CBC/CMP, temperatures -aspiration precautions -Neuro,c ardio, renal, GI f/u -if T>101, please obtain Bcx x2 -CXR am Discussed with RN and mom at bedside. Subjective Allergies: Coded Allergies: NO KNOWN ALLERGIES (Verified Allergy, Unknown, 09/02/17) Subjective afebrile in 48 hrs WBC increased BCx NTD transferred to [facility] Objective Vital Signs Last 24 Hour Vital Signs Date Time Temp Pulse Resp B/P (MAP) Pulse Ox O2 Delivery O2 Flow Rate FiO2 09/05/17 16:00 Room Air Room Air 09/05/17 14:30 Room Air 09/05/17 14:30 97.4 71 20 141/80 (100) 97.4 09/05/17 12:00 98.6 75 15 130/79 (96) 97 98.6 09/05/17 12:00 Room Air Room Air 09/05/17 12:00 75 09/05/17 10:00 107/62 09/05/17 08:00 71 09/05/17 08:00 98.8 69 21 123/73 (90) 96 98.8 09/05/17 08:00 Room Air Room Air 09/05/17 04:07 115/66 09/05/17 04:00 Room Air Room Air 09/05/17 04:00 71 09/05/17 04:00 98.9 73 23 115/66 (82) 97 98.9 09/05/17 00:00 Room Air Room Air 09/05/17 00:00 89 09/05/17 00:00 98.9 79 20 126/75 (92) 97 98.9 09/04/17 23:09 140/74 09/04/17 20:00 98.6 94 20 140/74 (96) 97 98.6 09/04/17 20:00 81 09/04/17 20:00 Room Air Room Air 09/04/17 19:10 96 Room Air 21 09/04/17 19:10 Room Air 21 09/04/17 18:00 91 23 163/88 (113) 96 09/04/17 17:00 97 23 147/77 (100) 96 09/04/17 16:44 160/87 Height (Feet): 5 Height (Inches): 8.00 Weight (Pounds): 182 Objective General: intubated, restless HEENT: ETT in place Heart: RRR, no murmurs Lungs: CTA x2 ABD: S+D, ND, BS+ Extremity no edema or cellulitis Microbiology Date/Time Source Procedure Growth Status 09/02/17 16:40 Blood Blood Culture - Preliminary NO GROWTH AFTER 48 HOURS Resulted 09/02/17 17:20 Sputum Gram Stain - Final Complete 09/02/17 17:20 Sputum Culture - Final Staphylococcus Aureus Complete 09/04/17 21:10 Stool Clostridium difficile Toxin Assay - Final Complete Laboratory Tests Test 09/05/17 04:27 White Blood Count 20.1 K/UL (4.8-10.8) H Red Blood Count 3.16 M/UL (4.70-6.10) L Hemoglobin 9.9 G/DL (14.2-18.0) L Hematocrit 28.8 % (42.0-52.0) L Mean Corpuscular Volume 91 FL (80-99) Mean Corpuscular Hemoglobin 31.4 PG (27.0-31.0) H Mean Corpuscular Hemoglobin Concent 34.5 G/DL (32.0-36.0) Red Cell Distribution Width 11.4 % (11.6-14.8) L Platelet Count 312 K/UL (150-450) Mean Platelet Volume 6.4 FL (6.5-10.1) L Neutrophils (%) (Auto) % (45.0-75.0) Lymphocytes (%) (Auto) % (20.0-45.0) Monocytes (%) (Auto) % (1.0-10.0) Eosinophils (%) (Auto) % (0.0-3.0) Basophils (%) (Auto) % (0.0-2.0) Differential Total Cells Counted 100 Neutrophils % (Manual) 78 % (45-75) H Lymphocytes % (Manual) 5 % (20-45) L Monocytes % (Manual) 10 % (1-10) Eosinophils % (Manual) 1 % (0-3) Basophils % (Manual) 0 % (0-2) Band Neutrophils 6 % (0-8) Platelet Estimate Adequate Platelet Morphology Normal Red Blood Cell Morphology Normal Erythrocyte Sedimentation Rate 90 MM/HR (0-15) H Sodium Level 133 MMOL/L (136-145) L Potassium Level 4.0 MMOL/L (3.5-5.1) Chloride Level 99 MMOL/L (98-107) Carbon Dioxide Level 23 MMOL/L (21-32) Anion Gap 11 mmol/L (5-15) Blood Urea Nitrogen 80 mg/dL (7-18) H Creatinine 10.2 MG/DL (0.55-1.30) H Estimat Glomerular Filtration Rate 5.7 mL/min (>60) Glucose Level 112 MG/DL (74-106) H Calcium Level 8.3 MG/DL (8.5-10.1) L Phosphorus Level 4.5 MG/DL (2.5-4.9) Magnesium Level 2.9 MG/DL (1.8-2.4) H Total Bilirubin 0.7 MG/DL (0.2-1.0) Aspartate Amino Transf (AST/SGOT) 398 U/L (15-37) H Alanine Aminotransferase (ALT/SGPT) 529 U/L (12-78) H Alkaline Phosphatase 145 U/L (46-116) H Total Creatine Kinase 6010 U/L (26-308) H C-Reactive Protein, Quantitative 10.2 mg/dL (0.00-0.90) H Total Protein 5.3 G/DL (6.4-8.2) L Albumin 1.8 G/DL (3.4-5.0) L Globulin 3.5 g/dL Albumin/Globulin Ratio 0.5 (1.0-2.7) L Current Medications Medications (Trade) Dose Ordered Sig/Krystyna Route PRN Reason Start Time Stop Time Status Last Admin Dose Admin Acetaminophen (Tylenol) 650 mg Q4H PRN ORAL Fever (temp>100.5F) 09/05/17 01:30 10/05/17 01:29 Cefazolin Sodium 1 gm/Dextrose 55 ml @ 110 mls/hr Q24HRS IVPB 09/05/17 17:00 09/11/17 16:59 Chlorhexidine Gluconate (Jyotsna-Hex 2%) 1 applic DAILY@2000 TOPIC 09/05/17 20:00 09/29/17 19:59 Clonidine HCl (Catapres tab) 0.2 mg Q6H ORAL 7/25/18 22:00 10/04/17 15:59 09/05/17 04:07 Dextrose (Dextrose 50%) 25 ml STAT PRN IV Hypoglycemia 09/04/17 22:00 10/04/17 21:59 Dextrose (Dextrose 50%) 50 ml STAT PRN IV Hypoglycemia 09/04/17 22:00 10/04/17 21:59 Heparin Sodium (Porcine) (Heparin 5000 units/ml) 5,000 units EVERY 12 HOURS SUBQ 09/05/17 09:00 09/28/17 20:59 09/05/17 08:49 Lorazepam (Ativan) 2 mg TIDPRN PRN ORAL Agitation 09/04/17 22:00 09/11/17 21:59 Methadone HCl (Methadone HCl) 10 mg Q6H PRN ORAL For Pain 1-6 09/04/17 22:00 09/11/17 21:59 Mirtazapine (Remeron) 15 mg BEDTIME ORAL 09/05/17 21:00 10/04/17 20:59 Nitroglycerin (Ntg) 0.4 mg Q5M PRN SL Prn Chest Pain 09/04/17 21:45 09/28/17 14:44 Pantoprazole (Protonix) 40 mg EVERY 12 HOURS IVP 09/05/17 09:00 09/28/17 20:59 09/05/17 08:47 Sodium Bicarbonate 50 ml/ Dextrose/Sodium Chloride 1,000 ml @ 50 mls/hr Q20H IV 09/04/17 21:45 09/30/17 13:59 09/04/17 23:09 Krystal Romero M.D. Sep 05, 2017 16:45
[2017-09-05] MEDS ORDERED: ceFAZolin sod 1 GM in D5W 55 ML IVPB SCH (17:00)
--- NOTE | 2017-09-05 17:01 | Neurology Progress Note ---
Interim History Interim History Interim History Mr. Stover feels better. He was transferred out of the ICU. As per his nurse he has been delirious. He has not been out of bed today. He is in 2 point soft restraints. He is undergoing HD now. He is behaving better now. He is aware that he was indulging in dangerous behavior prior to his hospitalization. Review of Systems Neuro Review of Systems Benign. Objective Physical Exam Last Vital Signs Date Time Temp Pulse Resp B/P (MAP) Pulse Ox O2 Delivery O2 Flow Rate FiO2 09/05/17 16:00 97.4 62 16 132/78 (96) 97 97.4 62 09/05/17 16:00 Room Air Room Air 09/04/17 19:10 21 09/03/17 19:33 3.0 Laboratory Tests Test 09/05/17 04:27 White Blood Count 20.1 K/UL (4.8-10.8) H Red Blood Count 3.16 M/UL (4.70-6.10) L Hemoglobin 9.9 G/DL (14.2-18.0) L Hematocrit 28.8 % (42.0-52.0) L Mean Corpuscular Volume 91 FL (80-99) Mean Corpuscular Hemoglobin 31.4 PG (27.0-31.0) H Mean Corpuscular Hemoglobin Concent 34.5 G/DL (32.0-36.0) Red Cell Distribution Width 11.4 % (11.6-14.8) L Platelet Count 312 K/UL (150-450) Mean Platelet Volume 6.4 FL (6.5-10.1) L Neutrophils (%) (Auto) % (45.0-75.0) Lymphocytes (%) (Auto) % (20.0-45.0) Monocytes (%) (Auto) % (1.0-10.0) Eosinophils (%) (Auto) % (0.0-3.0) Basophils (%) (Auto) % (0.0-2.0) Differential Total Cells Counted 100 Neutrophils % (Manual) 78 % (45-75) H Lymphocytes % (Manual) 5 % (20-45) L Monocytes % (Manual) 10 % (1-10) Eosinophils % (Manual) 1 % (0-3) Basophils % (Manual) 0 % (0-2) Band Neutrophils 6 % (0-8) Platelet Estimate Adequate Platelet Morphology Normal Red Blood Cell Morphology Normal Erythrocyte Sedimentation Rate 90 MM/HR (0-15) H Sodium Level 133 MMOL/L (136-145) L Potassium Level 4.0 MMOL/L (3.5-5.1) Chloride Level 99 MMOL/L (98-107) Carbon Dioxide Level 23 MMOL/L (21-32) Anion Gap 11 mmol/L (5-15) Blood Urea Nitrogen 80 mg/dL (7-18) H Creatinine 10.2 MG/DL (0.55-1.30) H Estimat Glomerular Filtration Rate 5.7 mL/min (>60) Glucose Level 112 MG/DL (74-106) H Calcium Level 8.3 MG/DL (8.5-10.1) L Phosphorus Level 4.5 MG/DL (2.5-4.9) Magnesium Level 2.9 MG/DL (1.8-2.4) H Total Bilirubin 0.7 MG/DL (0.2-1.0) Aspartate Amino Transf (AST/SGOT) 398 U/L (15-37) H Alanine Aminotransferase (ALT/SGPT) 529 U/L (12-78) H Alkaline Phosphatase 145 U/L (46-116) H Total Creatine Kinase 6010 U/L (26-308) H C-Reactive Protein, Quantitative 10.2 mg/dL (0.00-0.90) H Total Protein 5.3 G/DL (6.4-8.2) L Albumin 1.8 G/DL (3.4-5.0) L Globulin 3.5 g/dL Albumin/Globulin Ratio 0.5 (1.0-2.7) L Neurologic Exam Objective PHYSICAL EXAMINATION: GENERAL: He is a well-developed, well-nourished, gentleman, lying in bed undergoing HD. HEAD: Normocephalic and atraumatic. EENT: Examination benign. NECK: No neck rigidity was observed. NEUROLOGIC EXAMINATION: MENTAL STATUS EXAMINATION: He was awake and much more alert. He was oriented to self, hospital and August 2017 only. He was able to recll 3/3 words immediately, but could only remember 2/3 in 1 and 3 minutes. He was able to remember presidents Trump through Tao only. SPEECH: He had no dysarthria. LANGUAGE: He had no aphasia. CRANIAL NERVE EXAMINATION: II: The visual dnih were intact on confrontation testing. III, IV & : The external ocular movements were present. The pupils were 3 mm in diameter and reactive sluggishly to light. V & VII: The corneal reflexes were present and equally brisk bilaterally. VIII: He was able to hear well and had no nystagmus. IX & X: The gag reflex was subdued on manipulating the endotracheal tube. XI: The sternocleidomastoids and trapezii functioned well. XII: The tongue was in the midline. MOTOR SYSTEM: The tone was normal in all four extremities. Examination of muscle mass revealed no focal wasting. Examination of power revealed G 5/5 power in all muscle groups. SENSORY EXAMINATION: He responded appropriately to light touch. REFLEXES: Trace+ and bilaterally symmetrical at the biceps, triceps, brachioradialis, and knees, 0 at both ankles. The plantar responses were flexor bilaterally. COORDINATION: He performed well on finger to nose testing. STANCE & GAIT: Could not be tested. Impression/Recommendations Diagnostic Impression 1. Mr. Enoch Stover is a 37-year-old, gentleman, of unknown handedness, who was found unconscious in a hotel room on 08/29/2017 after he had used multiple drugs. He was found to be possibly febrile, hypoglycemic, and breathing rapidly. Since then, he has been hospitalized and treated for sepsis. 2. He feels better. He was transferred out of the ICU. As per his nurse he has been delirious. He has not been out of bed today. He is in 2 point soft restraints. He is undergoing HD now. He is behaving better now. He is aware that he was indulging in dangerous behavior prior to his hospitalization. 3. On neurological examination, at this time, he is awake but not completely alert. He is disoriented to the exact date and name of the hospital. He does have problems with recent and remote memory. His speech and language are normal. His cranial nerves are also functioning normally. His motor function is good and his sensations preserved. His deep tendon reflexes are diminished but his plantar responses are flexor. He also does not demonstrate any definite focal or lateralizing neurological findings. 4. The CT scan of the brain performed on 08/29/2017 and repeated on 09/04/17 is benign for acute pathology. 5. Laboratory data obtained thus far revealed, on admission, his hemoglobin was elevated to 18.4, his WBC was normal at 8,500, but since then his WBCs have peaked to 17,200. His chemistry panel on admission revealed BUN elevated to 31 , creatinine elevated to 3.6, lactic acid elevated to 5.5, bilirubin elevated at 1.2, AST elevated at 478, ALT elevated to 159, CK elevated to greater than 10 ,000, troponin elevated at 1.01, BNP elevated to 2143. His urine toxicology screen was positive for opiates, amphetamines, cocaine, and marijuana. His INR was elevated at 1.2. His TSH is elevated at 4.72. The T3 is low but the T4 is normal. 6. The patient's history, neurological examination, laboratory data, and imaging studies are most compatible with an altered mental state due to a toxic metabolic encephalopathy. 7. The most likely etiology for the encephalopathy is the sepsis, possibly a period of hypoglycemia and ongoing multiple metabolic imbalances and the toxic imbalances. In addition the use of mind-altering drugs could also be contributing. 8. His encephalopathy is still waxing and waning and is minimally worse today. Recommendations 1. Continue present management. 2. Try to wean the patient off mind-altering drugs. 3. Continue aggressive treatment of the patient's sepsis. 4. Aggressive management of toxic/metabolic imbalances. 5. Observe closely. Chris Ricketts M.D., M.S.P.CHRIS GARDINER Sep 05, 2017 17:01
[2017-09-05] MEDS: SODIUM BICARBONATE IV SCH ×2 (17:45→20:50)
[2017-09-05] MEDS: [UNRECOGNIZED DRUG - OTHER] IV SCH ×2 (17:45→20:50)
[2017-09-05] MEDS: D5 IV SCH ×2 (17:45→20:50)
[2017-09-05] MEDS ORDERED: LORazepam 1mg tab ORAL PRN (18:00)
[2017-09-05] MEDS ORDERED: Nitroglycerin Subl 0.4mg tab SL PRN (18:30)
[2017-09-05 18:52] LABS: ALANINE AMINOTRANSFERASE 443 U/L (12-78); ALBUMIN 2.1 G/DL (3.4-5.0); ALKALINE PHOSPHATASE 204 U/L (46-116); ASPARTATE AMINO TRANSFERASE 315 U/L (15-37); BILIRUBIN,DIRECT 0.3 MG/DL (0.0-0.3); BILIRUBIN,TOTAL 0.8 MG/DL (0.2-1.0)
[2017-09-05] MEDS ORDERED: Dyna-Hex 2% Top Sol 2oz TOPIC SCH (20:00)
[2017-09-05] MEDS: Dyna-Hex 2% Top Sol 2oz TOPIC SCH (20:50)
[2017-09-05] MEDS: Pantoprazole Inj IVP SCH (20:50)
[2017-09-05] MEDS: Heparin 5000 units/ml inj SUBQ SCH (20:51)
--- NOTE | 2017-09-05 23:16 | Cardiology Progress Note ---
Assessment/Plan Assessment/Plan 1. Sinus tachycardia, resolved likely due to SIRS, increased adrenergic flow in response to cocaine and amphetamine abuse. Continue hydration. Normal QT interval. 2. LUCRECIA due to rhabdomyolysis. 3. Shock liver 4. Acute pancreatitis with systemic inflammatory response disease. 5. Elevated troponin I level likely myocarditis, sepsis, or due to shock. Subjective Subjective Sinus rhythm at 83. Transferred to [facility]. Objective Last 24 Hour Vital Signs Date Time Temp Pulse Resp B/P (MAP) Pulse Ox O2 Delivery O2 Flow Rate FiO2 09/05/17 22:13 140/76 09/05/17 18:45 Room Air 09/05/17 18:43 98.2 83 20 166/86 (112) 98.2 09/05/17 16:00 97.4 62 16 132/78 (96) 97 97.4 62 09/05/17 16:00 Room Air Room Air 09/05/17 14:30 Room Air 09/05/17 14:30 97.4 71 20 141/80 (100) 97.4 09/05/17 12:00 98.6 75 15 130/79 (96) 97 98.6 09/05/17 12:00 Room Air Room Air 09/05/17 12:00 75 09/05/17 10:00 107/62 09/05/17 08:00 71 09/05/17 08:00 98.8 69 21 123/73 (90) 96 98.8 09/05/17 08:00 Room Air Room Air 09/05/17 04:07 115/66 09/05/17 04:00 Room Air Room Air 09/05/17 04:00 71 09/05/17 04:00 98.9 73 23 115/66 (82) 97 98.9 09/05/17 00:00 Room Air Room Air 09/05/17 00:00 89 09/05/17 00:00 98.9 79 20 126/75 (92) 97 98.9 Intake and Output 09/04/17 09/05/17 19:00 07:00 Intake Total 1046 ml 550 ml Balance 1046 ml 550 ml Intake Oral 100 ml 150 ml IV Total 946 ml 400 ml Tube Feeding 0 ml # Voids 1 # Bowel Movements 6 4 2D Echo: LVEF 55-60% Laboratory Tests Test 09/05/17 04:27 7/26/18 18:00 White Blood Count 20.1 K/UL (4.8-10.8) H Red Blood Count 3.16 M/UL (4.70-6.10) L Hemoglobin 9.9 G/DL (14.2-18.0) L Hematocrit 28.8 % (42.0-52.0) L Mean Corpuscular Volume 91 FL (80-99) Mean Corpuscular Hemoglobin 31.4 PG (27.0-31.0) H Mean Corpuscular Hemoglobin Concent 34.5 G/DL (32.0-36.0) Red Cell Distribution Width 11.4 % (11.6-14.8) L Platelet Count 312 K/UL (150-450) Mean Platelet Volume 6.4 FL (6.5-10.1) L Neutrophils (%) (Auto) % (45.0-75.0) Lymphocytes (%) (Auto) % (20.0-45.0) Monocytes (%) (Auto) % (1.0-10.0) Eosinophils (%) (Auto) % (0.0-3.0) Basophils (%) (Auto) % (0.0-2.0) Differential Total Cells Counted 100 Neutrophils % (Manual) 78 % (45-75) H Lymphocytes % (Manual) 5 % (20-45) L Monocytes % (Manual) 10 % (1-10) Eosinophils % (Manual) 1 % (0-3) Basophils % (Manual) 0 % (0-2) Band Neutrophils 6 % (0-8) Platelet Estimate Adequate Platelet Morphology Normal Red Blood Cell Morphology Normal Erythrocyte Sedimentation Rate 90 MM/HR (0-15) H Sodium Level 133 MMOL/L (136-145) L Potassium Level 4.0 MMOL/L (3.5-5.1) Chloride Level 99 MMOL/L (98-107) Carbon Dioxide Level 23 MMOL/L (21-32) Anion Gap 11 mmol/L (5-15) Blood Urea Nitrogen 80 mg/dL (7-18) H Creatinine 10.2 MG/DL (0.55-1.30) H Estimat Glomerular Filtration Rate 5.7 mL/min (>60) Glucose Level 112 MG/DL (74-106) H Calcium Level 8.3 MG/DL (8.5-10.1) L Phosphorus Level 4.5 MG/DL (2.5-4.9) Magnesium Level 2.9 MG/DL (1.8-2.4) H Total Bilirubin 0.7 MG/DL (0.2-1.0) 0.8 MG/DL (0.2-1.0) Aspartate Amino Transf (AST/SGOT) 398 U/L (15-37) H 315 U/L (15-37) H Alanine Aminotransferase (ALT/SGPT) 529 U/L (12-78) H 443 U/L (12-78) H Alkaline Phosphatase 145 U/L (46-116) H 204 U/L (46-116) H Total Creatine Kinase 6010 U/L (26-308) H C-Reactive Protein, Quantitative 10.2 mg/dL (0.00-0.90) H Total Protein 5.3 G/DL (6.4-8.2) L 5.4 G/DL (6.4-8.2) L Albumin 1.8 G/DL (3.4-5.0) L 2.1 G/DL (3.4-5.0) L Globulin 3.5 g/dL Albumin/Globulin Ratio 0.5 (1.0-2.7) L Direct Bilirubin 0.3 MG/DL (0.0-0.3) Microbiology Date/Time Source Procedure Growth Status 09/04/17 21:10 Stool Clostridium difficile Toxin Assay - Final Complete Objective HEENT: Atraumatic and normocephalic. Pupils are equal, round, and reactive to light and accommodation. Scleral injection in both eyes. Dry mucosal membranes. NECK: JVP cannot be assessed. CVS: Normal S1, S2. Cannot appreciate any murmurs, gallops, or rubs. LUNGS: Clear to auscultation bilaterally. ABDOMEN: Soft, nontender, and nondistended. No hepatosplenomegaly. Positive bowel sounds. EXTREMITIES: No evidence of edema, clubbing, or cyanosis. Jorge Mcdonough MD Sep 05, 2017 23:16
[2017-09-06] VITALS: BP 138/84
[2017-09-06 04:00] VITALS: BP 129/77
[2017-09-06] MEDS: cloNIDine 0.2mg Tab ORAL SCH ×4 (04:43→22:17)
[2017-09-06 06:38] LABS: HEMATOCRIT 28.1 % (42.0-52.0); HEMOGLOBIN 9.8 G/DL (14.2-18.0); MEAN CORPUSCULAR VOLUME 91 FL (80-99); PLATELET COUNT 420 K/UL (150-450); RED BLOOD COUNT 3.08 M/UL (4.70-6.10); RED CELL DISTRIBUTION WIDTH 11.7 % (11.6-14.8)
[2017-09-06 06:45] LABS: ANION GAP 13 mmol/L (5-15); BLOOD UREA NITROGEN 100 mg/dL (7-18); CALCIUM 8.2 MG/DL (8.5-10.1); CARBON DIOXIDE 22 MMOL/L (21-32); CHLORIDE 98 MMOL/L (98-107); CREATININE 12.1 MG/DL (0.55-1.30); POTASSIUM 4.3 MMOL/L (3.5-5.1); SODIUM 133 MMOL/L (136-145)
[2017-09-06 06:53] LABS: WHITE BLOOD COUNT 25.4 K/UL (4.8-10.8)
[2017-09-06 08:00] VITALS: BP 136/71
[2017-09-06] MEDS: Heparin 5000 units/ml inj SUBQ SCH ×2 (09:10→21:07)
[2017-09-06] MEDS: Pantoprazole Inj IVP SCH (09:11)
--- NOTE | 2017-09-06 09:52 | Diagnostic Imaging Report ---
Indication: Cough Technique: One view of the chest Comparison: 09/04/2017 Findings: Right jugular temporary dialysis catheter is again demonstrated. Interstitial and airspace disease in the right mid and upper lung is probably unchanged, allowing for differences in degree of inspiration. Left lung, bilateral pleural spaces remain clear. Heart size is normal. Impression: Unchanged right mid and upper lung infiltrates, over 2 days Other findings as noted
--- NOTE | 2017-09-06 10:49 | General Progress Note ---
Assessment/Plan Problem List: (1) Substance abuse ICD Codes: F19.10 - Other psychoactive substance abuse, uncomplicated SNOMED: 40710248 (2) Respiratory failure ICD Codes: J96.90 - Respiratory failure, unspecified, unspecified whether with hypoxia or hypercapnia SNOMED: 434977184 Qualifiers: Qualified Codes: J96.01 - Acute respiratory failure with hypoxia (3) Rhabdomyolysis ICD Codes: M62.82 - Rhabdomyolysis SNOMED: 990158864 Qualifiers: Qualified Codes: T79.6XXA - Traumatic ischemia of muscle, initial encounter (4) NSTEMI (non-ST elevated myocardial infarction) ICD Codes: I21.4 - Non-ST elevation (NSTEMI) myocardial infarction SNOMED: 899424311 (5) LUCRECIA (acute kidney injury) ICD Codes: N17.9 - Acute kidney failure, unspecified SNOMED: 53088338 Status: unchanged Assessment/Plan vent abx neuro psyc eval cbc bmp am Subjective Constitutional: Reports: weakness Allergies: Coded Allergies: NO KNOWN ALLERGIES (Verified Allergy, Unknown, 09/02/17) All Systems: reviewed and negative except above Subjective sleepy lethargic Objective Last 24 Hour Vital Signs Date Time Temp Pulse Resp B/P (MAP) Pulse Ox O2 Delivery O2 Flow Rate FiO2 09/06/17 09:10 136/71 09/06/17 08:45 Room Air 09/06/17 08:00 97.5 68 19 136/71 (92) 95 97.5 09/06/17 04:43 129/77 09/06/17 04:00 99.5 72 18 129/77 (94) 96 99.5 09/06/17 02:04 99.5 09/06/17 01:05 101.0 09/06/17 00:00 101.0 78 18 138/84 (102) 97 101.0 09/05/17 22:13 140/76 09/05/17 21:00 Room Air Room Air 09/05/17 20:00 99.7 90 18 140/76 (97) 96 99.7 09/05/17 18:45 Room Air 09/05/17 18:43 98.2 83 20 166/86 (112) 98.2 09/05/17 16:00 97.4 62 16 132/78 (96) 97 97.4 62 09/05/17 16:00 Room Air Room Air 09/05/17 14:30 Room Air 09/05/17 14:30 97.4 71 20 141/80 (100) 97.4 09/05/17 12:00 98.6 75 15 130/79 (96) 97 98.6 09/05/17 12:00 Room Air Room Air 09/05/17 12:00 75 Intake and Output 09/05/17 09/06/17 19:00 07:00 Intake Total 750 ml 500 ml Output Total 2000 ml Balance -1250 ml 500 ml Intake Oral 400 ml IV Total 350 ml 500 ml Hemodialysis UF 2000 ml # Voids 3 # Bowel Movements 5 3 Laboratory Tests 09/05/17 18:00: Total Bilirubin 0.8, Direct Bilirubin 0.3, Aspartate Amino Transf (AST/SGOT) 315H, Alanine Aminotransferase (ALT/SGPT) 443H, Alkaline Phosphatase 204H, Total Protein 5.4L, Albumin 2.1L 09/06/17 06:10: White Blood Count 25.4*H, Red Blood Count 3.08L, Hemoglobin 9.8L, Hematocrit 28.1L, Mean Corpuscular Volume 91, Mean Corpuscular Hemoglobin 32.0H, Mean Corpuscular Hemoglobin Concent 35.1, Red Cell Distribution Width 11.7, Platelet Count 420, Mean Platelet Volume 6.0L, Neutrophils (%) (Auto) , Lymphocytes (%) ( Auto) , Monocytes (%) (Auto) , Eosinophils (%) (Auto) , Basophils (%) (Auto) , Differential Total Cells Counted 100, Neutrophils % (Manual) 78H, Lymphocytes % (Manual) 4L, Monocytes % (Manual) 12H, Eosinophils % (Manual) 0, Basophils % ( Manual) 0, Metamyelocytes % 1H, Myelocytes % 3H, Band Neutrophils 2, Platelet Estimate Adequate, Platelet Morphology Normal, Hypochromasia 1+, Anisocytosis 1+ , Sodium Level 133L, Potassium Level 4.3, Chloride Level 98, Carbon Dioxide Level 22, Anion Gap 13, Blood Urea Nitrogen 100H, Creatinine 12.1H, Estimat Glomerular Filtration Rate 4.7, Glucose Level 130H, Calcium Level 8.2L Height (Feet): 5 Height (Inches): 8.00 Weight (Pounds): 183 General Appearance: lethargic EENT: normal ENT inspection Neck: normal alignment Cardiovascular: normal peripheral pulses, normal rate, regular rhythm Respiratory/Chest: chest wall non-tender, lungs clear, normal breath sounds Abdomen: normal bowel sounds, non tender, soft Extremities: normal inspection Edema: no edema noted Arm (L), no edema noted Arm (R), no edema noted Leg (L), no edema noted Leg (R), no edema noted Pedal (L), no edema noted Pedal (R), no edema noted Generalized Neurologic: motor weakness Skin: normal pigmentation, warm/dry Reid Anaya DO Sep 06, 2017 10:49
[2017-09-06] MEDS ORDERED: NS 500ML ONE (10:58)
[2017-09-06] MEDS ORDERED: NS 275ml ONE (10:58)
[2017-09-06] MEDS ORDERED: Tubing IV Secondary IV ONE (10:58)
[2017-09-06] MEDS ORDERED: D5NS 1000ml IV ONE (11:00)
--- NOTE | 2017-09-06 11:31 | Nephrology Progress Note ---
Assessment/Plan Assessment 1. Acute rhabdomyolysis.(anuric ) 2. Hypocalcemia. 3. Hyperkalemia. 4. Lactic acidosis. 5. Shock liver. 6. History of multiple drug use. Plan continue bicarbonate drip dialysis today monitoring renal function monitoring out put spoke to his sister and father regarding need for hemodialysis and cath placement they agreed on that Subjective Subjective extubated alert and awake Objective Objective Last 24 Hour Vital Signs Date Time Temp Pulse Resp B/P (MAP) Pulse Ox O2 Delivery O2 Flow Rate FiO2 09/06/17 09:10 136/71 09/06/17 08:45 Room Air 09/06/17 08:00 97.5 68 19 136/71 (92) 95 97.5 09/06/17 04:43 129/77 09/06/17 04:00 99.5 72 18 129/77 (94) 96 99.5 09/06/17 02:04 99.5 09/06/17 01:05 101.0 09/06/17 00:00 101.0 78 18 138/84 (102) 97 101.0 09/05/17 22:13 140/76 09/05/17 21:00 Room Air Room Air 09/05/17 20:00 99.7 90 18 140/76 (97) 96 99.7 09/05/17 18:45 Room Air 09/05/17 18:43 98.2 83 20 166/86 (112) 98.2 09/05/17 16:00 97.4 62 16 132/78 (96) 97 97.4 62 09/05/17 16:00 Room Air Room Air 09/05/17 14:30 Room Air 09/05/17 14:30 97.4 71 20 141/80 (100) 97.4 09/05/17 12:00 98.6 75 15 130/79 (96) 97 98.6 09/05/17 12:00 Room Air Room Air 09/05/17 12:00 75 Intake and Output 09/05/17 09/06/17 19:00 07:00 Intake Total 750 ml 500 ml Output Total 2000 ml Balance -1250 ml 500 ml Intake Oral 400 ml IV Total 350 ml 500 ml Hemodialysis UF 2000 ml # Voids 3 # Bowel Movements 5 3 Laboratory Tests 09/05/17 18:00: Total Bilirubin 0.8, Direct Bilirubin 0.3, Aspartate Amino Transf (AST/SGOT) 315H, Alanine Aminotransferase (ALT/SGPT) 443H, Alkaline Phosphatase 204H, Total Protein 5.4L, Albumin 2.1L 09/06/17 06:10: White Blood Count 25.4*H, Red Blood Count 3.08L, Hemoglobin 9.8L, Hematocrit 28.1L, Mean Corpuscular Volume 91, Mean Corpuscular Hemoglobin 32.0H, Mean Corpuscular Hemoglobin Concent 35.1, Red Cell Distribution Width 11.7, Platelet Count 420, Mean Platelet Volume 6.0L, Neutrophils (%) (Auto) , Lymphocytes (%) ( Auto) , Monocytes (%) (Auto) , Eosinophils (%) (Auto) , Basophils (%) (Auto) , Differential Total Cells Counted 100, Neutrophils % (Manual) 78H, Lymphocytes % (Manual) 4L, Monocytes % (Manual) 12H, Eosinophils % (Manual) 0, Basophils % ( Manual) 0, Metamyelocytes % 1H, Myelocytes % 3H, Band Neutrophils 2, Platelet Estimate Adequate, Platelet Morphology Normal, Hypochromasia 1+, Anisocytosis 1+ , Sodium Level 133L, Potassium Level 4.3, Chloride Level 98, Carbon Dioxide Level 22, Anion Gap 13, Blood Urea Nitrogen 100H, Creatinine 12.1H, Estimat Glomerular Filtration Rate 4.7, Glucose Level 130H, Calcium Level 8.2L Height (Feet): 5 Height (Inches): 8.00 Weight (Pounds): 183 Objective HEAD AND NECK: No JVP. No LAD. G-tube is in place. Head is atraumatic and normocephalic. LUNGS: He has decreased breathing sounds on the both sides. CARDIAC: Regular rate and rhythm. S1 and S2. No murmur. No rub. ABDOMEN: Soft. Bowel sounds positive. EXTREMITIES: No edema. No clubbing. No cyanosis. Aixa Veloz MD Sep 06, 2017 11:31
[2017-09-06 12:00] VITALS: BP 109/56
--- NOTE | 2017-09-06 13:22 | General Progress Note ---
Assessment/Plan Assessment/Plan mdd polysubstance dependence opioid and benzo withdrawal -cont methadone increased the dose -cont clonidine/ decrease the dose -cont valuim prn -cont remeron -psych when medically cleared Subjective Date patient seen: Sep 06, 2017 Neurologic/Psychiatric: Reports: anxiety Allergies: Coded Allergies: NO KNOWN ALLERGIES (Verified Allergy, Unknown, 09/02/17) Subjective the pt is more stable. the pt was agitated this am ativan was given Objective Last 24 Hour Vital Signs Date Time Temp Pulse Resp B/P (MAP) Pulse Ox O2 Delivery O2 Flow Rate FiO2 09/06/17 12:00 97.6 70 18 109/56 (73) 97 97.6 09/06/17 09:10 136/71 09/06/17 08:45 Room Air 09/06/17 08:00 97.5 68 19 136/71 (92) 95 97.5 09/06/17 04:43 129/77 09/06/17 04:00 99.5 72 18 129/77 (94) 96 99.5 09/06/17 02:04 99.5 09/06/17 01:05 101.0 09/06/17 00:00 101.0 78 18 138/84 (102) 97 101.0 09/05/17 22:13 140/76 09/05/17 21:00 Room Air Room Air 09/05/17 20:00 99.7 90 18 140/76 (97) 96 99.7 09/05/17 18:45 Room Air 09/05/17 18:43 98.2 83 20 166/86 (112) 98.2 09/05/17 16:00 97.4 62 16 132/78 (96) 97 97.4 62 09/05/17 16:00 Room Air Room Air 09/05/17 14:30 Room Air 09/05/17 14:30 97.4 71 20 141/80 (100) 97.4 Intake and Output 09/05/17 09/06/17 19:00 07:00 Intake Total 750 ml 500 ml Output Total 2000 ml Balance -1250 ml 500 ml Intake Oral 400 ml IV Total 350 ml 500 ml Hemodialysis UF 2000 ml # Voids 3 # Bowel Movements 5 3 Laboratory Tests 09/05/17 18:00: Total Bilirubin 0.8, Direct Bilirubin 0.3, Aspartate Amino Transf (AST/SGOT) 315H, Alanine Aminotransferase (ALT/SGPT) 443H, Alkaline Phosphatase 204H, Total Protein 5.4L, Albumin 2.1L 09/06/17 06:10: White Blood Count 25.4*H, Red Blood Count 3.08L, Hemoglobin 9.8L, Hematocrit 28.1L, Mean Corpuscular Volume 91, Mean Corpuscular Hemoglobin 32.0H, Mean Corpuscular Hemoglobin Concent 35.1, Red Cell Distribution Width 11.7, Platelet Count 420, Mean Platelet Volume 6.0L, Neutrophils (%) (Auto) , Lymphocytes (%) ( Auto) , Monocytes (%) (Auto) , Eosinophils (%) (Auto) , Basophils (%) (Auto) , Differential Total Cells Counted 100, Neutrophils % (Manual) 78H, Lymphocytes % (Manual) 4L, Monocytes % (Manual) 12H, Eosinophils % (Manual) 0, Basophils % ( Manual) 0, Metamyelocytes % 1H, Myelocytes % 3H, Band Neutrophils 2, Platelet Estimate Adequate, Platelet Morphology Normal, Hypochromasia 1+, Anisocytosis 1+ , Sodium Level 133L, Potassium Level 4.3, Chloride Level 98, Carbon Dioxide Level 22, Anion Gap 13, Blood Urea Nitrogen 100H, Creatinine 12.1H, Estimat Glomerular Filtration Rate 4.7, Glucose Level 130H, Calcium Level 8.2L Height (Feet): 5 Height (Inches): 8.00 Weight (Pounds): 183 General Appearance: no apparent distress, lethargic Leida Decker MD Sep 06, 2017 13:22
--- NOTE | 2017-09-06 13:45 | Pulmonology Progress Note ---
Assessment/Plan Problems: (1) Respiratory failure Assessment & Plan: improved (2) LUCRECIA (acute kidney injury) (3) Severe sepsis (4) Overdose Assessment/Plan stewart culture again, WBC increasing abx as per ID Subjective ROS Limited/Unobtainable: No Interval Events: agitated at times Allergies: Coded Allergies: NO KNOWN ALLERGIES (Verified Allergy, Unknown, 09/02/17) Objective Last 24 Hour Vital Signs Date Time Temp Pulse Resp B/P (MAP) Pulse Ox O2 Delivery O2 Flow Rate FiO2 09/06/17 12:00 97.6 70 18 109/56 (73) 97 97.6 09/06/17 09:10 136/71 09/06/17 08:45 Room Air 09/06/17 08:00 97.5 68 19 136/71 (92) 95 97.5 09/06/17 04:43 129/77 09/06/17 04:00 99.5 72 18 129/77 (94) 96 99.5 09/06/17 02:04 99.5 09/06/17 01:05 101.0 09/06/17 00:00 101.0 78 18 138/84 (102) 97 101.0 09/05/17 22:13 140/76 09/05/17 21:00 Room Air Room Air 09/05/17 20:00 99.7 90 18 140/76 (97) 96 99.7 09/05/17 18:45 Room Air 09/05/17 18:43 98.2 83 20 166/86 (112) 98.2 09/05/17 16:00 97.4 62 16 132/78 (96) 97 97.4 62 09/05/17 16:00 Room Air Room Air 09/05/17 14:30 Room Air 09/05/17 14:30 97.4 71 20 141/80 (100) 97.4 Intake and Output 09/05/17 09/06/17 19:00 07:00 Intake Total 750 ml 500 ml Output Total 2000 ml Balance -1250 ml 500 ml Intake Oral 400 ml IV Total 350 ml 500 ml Hemodialysis UF 2000 ml # Voids 3 # Bowel Movements 5 3 General Appearance: WD/WN HEENT: normocephalic Respiratory/Chest: chest wall non-tender, lungs clear Cardiovascular: normal peripheral pulses, regular rhythm Abdomen: normal bowel sounds, no organomegaly Genitourinary: normal external genitalia Extremities: no cyanosis Microbiology Date/Time Source Procedure Growth Status 09/04/17 21:10 Stool Clostridium difficile Toxin Assay - Final Complete Laboratory Tests 09/05/17 18:00: Total Bilirubin 0.8, Direct Bilirubin 0.3, Aspartate Amino Transf (AST/SGOT) 315H, Alanine Aminotransferase (ALT/SGPT) 443H, Alkaline Phosphatase 204H, Total Protein 5.4L, Albumin 2.1L 09/06/17 06:10: White Blood Count 25.4*H, Red Blood Count 3.08L, Hemoglobin 9.8L, Hematocrit 28.1L, Mean Corpuscular Volume 91, Mean Corpuscular Hemoglobin 32.0H, Mean Corpuscular Hemoglobin Concent 35.1, Red Cell Distribution Width 11.7, Platelet Count 420, Mean Platelet Volume 6.0L, Neutrophils (%) (Auto) , Lymphocytes (%) ( Auto) , Monocytes (%) (Auto) , Eosinophils (%) (Auto) , Basophils (%) (Auto) , Differential Total Cells Counted 100, Neutrophils % (Manual) 78H, Lymphocytes % (Manual) 4L, Monocytes % (Manual) 12H, Eosinophils % (Manual) 0, Basophils % ( Manual) 0, Metamyelocytes % 1H, Myelocytes % 3H, Band Neutrophils 2, Platelet Estimate Adequate, Platelet Morphology Normal, Hypochromasia 1+, Anisocytosis 1+ , Sodium Level 133L, Potassium Level 4.3, Chloride Level 98, Carbon Dioxide Level 22, Anion Gap 13, Blood Urea Nitrogen 100H, Creatinine 12.1H, Estimat Glomerular Filtration Rate 4.7, Glucose Level 130H, Calcium Level 8.2L Current Medications Medications (Trade) Dose Ordered Sig/Krystyna Route PRN Reason Start Time Stop Time Status Last Admin Dose Admin Acetaminophen (Tylenol) 650 mg Q4H PRN ORAL Fever (temp>100.5F) 09/05/17 18:30 10/05/17 18:29 09/06/17 01:05 Cefazolin Sodium 1 gm/Dextrose 55 ml @ 110 mls/hr Q24HRS IVPB 09/06/17 17:00 09/11/17 16:59 Chlorhexidine Gluconate (Jyotsna-Hex 2%) 1 applic DAILY@2000 TOPIC 09/05/17 20:00 09/29/17 19:59 09/05/17 20:50 Clonidine HCl (Catapres tab) 0.2 mg Q6H ORAL 09/05/17 22:00 10/04/17 15:59 09/06/17 09:10 Dextrose (Dextrose 50%) 25 ml STAT PRN IV Hypoglycemia 09/05/17 18:30 10/05/17 18:29 Dextrose (Dextrose 50%) 50 ml STAT PRN IV Hypoglycemia 09/05/17 18:30 10/05/17 18:29 Diazepam (Valium) 10 mg EVERY 4 HOURS PRN ORAL For Anxiety 09/06/17 13:15 09/13/17 13:14 Heparin Sodium (Porcine) (Heparin 5000 units/ml) 5,000 units EVERY 12 HOURS SUBQ 09/05/17 21:00 09/28/17 20:59 09/06/17 09:10 Methadone HCl (Methadone HCl) 10 mg Q6H PRN ORAL For Pain 1-6 09/05/17 18:00 09/11/17 17:59 Mirtazapine (Remeron) 15 mg BEDTIME ORAL 09/05/17 21:00 10/04/17 20:59 09/05/17 20:50 Nitroglycerin (Ntg) 0.4 mg Q5M PRN SL Prn Chest Pain 09/05/17 18:30 09/28/17 14:44 Pantoprazole (Protonix) 40 mg EVERY 12 HOURS IVP 09/05/17 21:00 09/28/17 20:59 09/06/17 09:11 Sodium Bicarbonate 50 ml/ Dextrose/Sodium Chloride 1,000 ml @ 50 mls/hr Q20H IV 09/05/17 20:00 09/30/17 19:59 09/05/17 20:50 Arpita Andre MD Sep 06, 2017 13:45
--- NOTE | 2017-09-06 14:00 | Infectious Diseases Prog Note ---
Assessment/Plan Assessment/Plan Assessment: Shock, SP Aspiration PNA -CXR 09/04 : Interim development of hazy interstitial and airspace disease in the right lung. This may to some extent be an artifact of less optimal inspiration, however. Interim extubation -CXR 09/03: Marked improvement of previously demonstrated bilateral pulmonary edema, over one day -CXR:More consolidated areas within the diffuse airspace opacity within the right lung and now possible right pleural effusion. The patient is rotated to the right. Interval increase in patchy left perihilar airspace opacities. May represent component of pulmonary edema or aspiration pneumonitis. -sp cx normal ann; repeat sp cx MSSA -legionella ag urine neg Rule out sepsis -u/a wbc 5-10, nit neg, leuk +1; cx neg -Bcx NTD -2d Echo (limited but no vegetations seen) Fever/leukocytosis- suspect reactive and 2ry to PNA; ongoing- r/o occult infection, endocarditis (+IVDA, possible myositis on CT), ?2ry to pancreatitis -Cdiff neg -v/duplex no DVT Drug overdose -UDS + opiates, amphetamines, THC, cocaine -+empty heroin needles (found on hotel room) -HIV ab sc and VL neg, RPR/FTA, GC/CL neg Multiorgan failure -LUCRECIA, - on HD -Transaminitis, (shock liver); improving -VDRF (airway protection)- now extubaetd 09/03 Lactic acidosis; resolved Rhabdomyolisis; improving3 Pancreatitis- drug induced -neg alcohol levels Encephalopathy- 2ry to above- r.o ischemia, r/o abscess (fever, IVDA +); much improved -CT head 09/04: Unusual scalp contusion, new since prior study 08/29/2017. No evidence of underlying calvarial trauma. Negative for acute intracranial bleed or mass effect -CT head 08/29: Limited exam due to motion artifact. No gross acute intracranial bleed or mass effect Hep C +; VL pending -ABD US: Gallbladder sludge. Negative for gallstones or dilated ducts. Equivocal increased hepatic echogenicity, if real could indicate hepatocellular disease such as fatty change. Borderline hepatomegaly. Mildly increased renal echogenicity, could indicate medical renal disease. Correlate with renal function tests. Left pleural effusion -Hep A and B immune Plan: -D/c IV Ancef abx d # 9 and start IV Vanco and Zosyn -09/04 SP IV Azithromycin #3 -09/03 SP Zosyn #6 -f/u Repeat Bcx x2 -u/a w/ reflex, Spcx -f/u cx - KATELYN to eval for endocarditis given +IVDA -WBC tagged scan to eval for occult infection -Monitor CBC/CMP, temperatures -aspiration precautions -Neuro,c ardio, renal, GI f/u Discussed with RN Subjective Allergies: Coded Allergies: NO KNOWN ALLERGIES (Verified Allergy, Unknown, 09/02/17) Subjective Tm 101 WBC incrased to 25 Bcx NTD at RA Objective Vital Signs Last 24 Hour Vital Signs Date Time Temp Pulse Resp B/P (MAP) Pulse Ox O2 Delivery O2 Flow Rate FiO2 09/06/17 12:00 97.6 70 18 109/56 (73) 97 97.6 09/06/17 09:10 136/71 09/06/17 08:45 Room Air 09/06/17 08:00 97.5 68 19 136/71 (92) 95 97.5 09/06/17 04:43 129/77 09/06/17 04:00 99.5 72 18 129/77 (94) 96 99.5 09/06/17 02:04 99.5 09/06/17 01:05 101.0 09/06/17 00:00 101.0 78 18 138/84 (102) 97 101.0 09/05/17 22:13 140/76 09/05/17 21:00 Room Air Room Air 09/05/17 20:00 99.7 90 18 140/76 (97) 96 99.7 09/05/17 18:45 Room Air 09/05/17 18:43 98.2 83 20 166/86 (112) 98.2 09/05/17 16:00 97.4 62 16 132/78 (96) 97 97.4 62 09/05/17 16:00 Room Air Room Air 09/05/17 14:30 Room Air 09/05/17 14:30 97.4 71 20 141/80 (100) 97.4 Height (Feet): 5 Height (Inches): 8.00 Weight (Pounds): 183 Objective General: intubated, restless HEENT: ETT in place Heart: RRR, no murmurs Lungs: CTA x2 ABD: S+D, ND, BS+ Extremity no edema or cellulitis Microbiology Date/Time Source Procedure Growth Status 09/04/17 21:10 Stool Clostridium difficile Toxin Assay - Final Complete Laboratory Tests Test 09/05/17 18:00 09/06/17 06:10 Total Bilirubin 0.8 MG/DL (0.2-1.0) Direct Bilirubin 0.3 MG/DL (0.0-0.3) Aspartate Amino Transf (AST/SGOT) 315 U/L (15-37) H Alanine Aminotransferase (ALT/SGPT) 443 U/L (12-78) H Alkaline Phosphatase 204 U/L (46-116) H Total Protein 5.4 G/DL (6.4-8.2) L Albumin 2.1 G/DL (3.4-5.0) L White Blood Count 25.4 K/UL (4.8-10.8) *H Red Blood Count 3.08 M/UL (4.70-6.10) L Hemoglobin 9.8 G/DL (14.2-18.0) L Hematocrit 28.1 % (42.0-52.0) L Mean Corpuscular Volume 91 FL (80-99) Mean Corpuscular Hemoglobin 32.0 PG (27.0-31.0) H Mean Corpuscular Hemoglobin Concent 35.1 G/DL (32.0-36.0) Red Cell Distribution Width 11.7 % (11.6-14.8) Platelet Count 420 K/UL (150-450) Mean Platelet Volume 6.0 FL (6.5-10.1) L Neutrophils (%) (Auto) % (45.0-75.0) Lymphocytes (%) (Auto) % (20.0-45.0) Monocytes (%) (Auto) % (1.0-10.0) Eosinophils (%) (Auto) % (0.0-3.0) Basophils (%) (Auto) % (0.0-2.0) Differential Total Cells Counted 100 Neutrophils % (Manual) 78 % (45-75) H Lymphocytes % (Manual) 4 % (20-45) L Monocytes % (Manual) 12 % (1-10) H Eosinophils % (Manual) 0 % (0-3) Basophils % (Manual) 0 % (0-2) Metamyelocytes % 1 % (0-0) H Myelocytes % 3 % (0-0) H Band Neutrophils 2 % (0-8) Platelet Estimate Adequate Platelet Morphology Normal Hypochromasia 1+ Anisocytosis 1+ Sodium Level 133 MMOL/L (136-145) L Potassium Level 4.3 MMOL/L (3.5-5.1) Chloride Level 98 MMOL/L (98-107) Carbon Dioxide Level 22 MMOL/L (21-32) Anion Gap 13 mmol/L (5-15) Blood Urea Nitrogen 100 mg/dL (7-18) H Creatinine 12.1 MG/DL (0.55-1.30) H Estimat Glomerular Filtration Rate 4.7 mL/min (>60) Glucose Level 130 MG/DL (74-106) H Calcium Level 8.2 MG/DL (8.5-10.1) L Current Medications Medications (Trade) Dose Ordered Sig/Krystyna Route PRN Reason Start Time Stop Time Status Last Admin Dose Admin Acetaminophen (Tylenol) 650 mg Q4H PRN ORAL Fever (temp>100.5F) 09/05/17 18:30 10/05/17 18:29 09/06/17 01:05 Cefazolin Sodium 1 gm/Dextrose 55 ml @ 110 mls/hr Q24HRS IVPB 09/06/17 17:00 09/11/17 16:59 Chlorhexidine Gluconate (Jyotsna-Hex 2%) 1 applic DAILY@2000 TOPIC 09/05/17 20:00 09/29/17 19:59 09/05/17 20:50 Clonidine HCl (Catapres tab) 0.2 mg Q6H ORAL 09/05/17 22:00 10/04/17 15:59 09/06/17 09:10 Dextrose (Dextrose 50%) 25 ml STAT PRN IV Hypoglycemia 09/05/17 18:30 10/05/17 18:29 Dextrose (Dextrose 50%) 50 ml STAT PRN IV Hypoglycemia 09/05/17 18:30 10/05/17 18:29 Diazepam (Valium) 10 mg EVERY 4 HOURS PRN ORAL For Anxiety 09/06/17 13:15 09/13/17 13:14 Heparin Sodium (Porcine) (Heparin 5000 units/ml) 5,000 units EVERY 12 HOURS SUBQ 09/05/17 21:00 09/28/17 20:59 09/06/17 09:10 Methadone HCl (Methadone HCl) 10 mg Q6H PRN ORAL For Pain 1-6 09/05/17 18:00 09/11/17 17:59 Mirtazapine (Remeron) 15 mg BEDTIME ORAL 09/05/17 21:00 10/04/17 20:59 09/05/17 20:50 Nitroglycerin (Ntg) 0.4 mg Q5M PRN SL Prn Chest Pain 09/05/17 18:30 09/28/17 14:44 Pantoprazole (Protonix) 40 mg EVERY 12 HOURS IVP 09/05/17 21:00 09/28/17 20:59 09/06/17 09:11 Sodium Bicarbonate 50 ml/ Dextrose/Sodium Chloride 1,000 ml @ 50 mls/hr Q20H IV 09/05/17 20:00 09/30/17 19:59 09/05/17 20:50 Krystal Romero M.D. Sep 06, 2017 14:00
[2017-09-06] MEDS ORDERED: Heparin 1000 units/ml 1ml Vial INJ SCH (15:00)
[2017-09-06] MEDS ORDERED: Sodium Chloride 3% 4ml Nebul Soln INH SCH (15:00)
--- NOTE | 2017-09-06 15:32 | Neurology Progress Note ---
Interim History Interim History Interim History Mr. Stover feels better. The mind is clearing up. He however is still forgetful. He has not been out of bed today. He is behaving better now. His appetite is better and he is eating more. He is still generally weak. He denies any new neurologic symptoms. He specifically denies any weakness on one side or the other, numbness on one side or the other, problems with speech, problems with language, or problems with vision. Review of Systems Neuro Review of Systems Benign. Objective Physical Exam Last Vital Signs Date Time Temp Pulse Resp B/P (MAP) Pulse Ox O2 Delivery O2 Flow Rate FiO2 09/06/17 12:00 97.6 70 18 109/56 (73) 97 97.6 09/06/17 08:45 Room Air 09/04/17 19:10 21 09/03/17 19:33 3.0 Laboratory Tests Test 09/05/17 18:00 09/06/17 06:10 Total Bilirubin 0.8 MG/DL (0.2-1.0) Direct Bilirubin 0.3 MG/DL (0.0-0.3) Aspartate Amino Transf (AST/SGOT) 315 U/L (15-37) H Alanine Aminotransferase (ALT/SGPT) 443 U/L (12-78) H Alkaline Phosphatase 204 U/L (46-116) H Total Protein 5.4 G/DL (6.4-8.2) L Albumin 2.1 G/DL (3.4-5.0) L White Blood Count 25.4 K/UL (4.8-10.8) *H Red Blood Count 3.08 M/UL (4.70-6.10) L Hemoglobin 9.8 G/DL (14.2-18.0) L Hematocrit 28.1 % (42.0-52.0) L Mean Corpuscular Volume 91 FL (80-99) Mean Corpuscular Hemoglobin 32.0 PG (27.0-31.0) H Mean Corpuscular Hemoglobin Concent 35.1 G/DL (32.0-36.0) Red Cell Distribution Width 11.7 % (11.6-14.8) Platelet Count 420 K/UL (150-450) Mean Platelet Volume 6.0 FL (6.5-10.1) L Neutrophils (%) (Auto) % (45.0-75.0) Lymphocytes (%) (Auto) % (20.0-45.0) Monocytes (%) (Auto) % (1.0-10.0) Eosinophils (%) (Auto) % (0.0-3.0) Basophils (%) (Auto) % (0.0-2.0) Differential Total Cells Counted 100 Neutrophils % (Manual) 78 % (45-75) H Lymphocytes % (Manual) 4 % (20-45) L Monocytes % (Manual) 12 % (1-10) H Eosinophils % (Manual) 0 % (0-3) Basophils % (Manual) 0 % (0-2) Metamyelocytes % 1 % (0-0) H Myelocytes % 3 % (0-0) H Band Neutrophils 2 % (0-8) Platelet Estimate Adequate Platelet Morphology Normal Hypochromasia 1+ Anisocytosis 1+ Sodium Level 133 MMOL/L (136-145) L Potassium Level 4.3 MMOL/L (3.5-5.1) Chloride Level 98 MMOL/L (98-107) Carbon Dioxide Level 22 MMOL/L (21-32) Anion Gap 13 mmol/L (5-15) Blood Urea Nitrogen 100 mg/dL (7-18) H Creatinine 12.1 MG/DL (0.55-1.30) H Estimat Glomerular Filtration Rate 4.7 mL/min (>60) Glucose Level 130 MG/DL (74-106) H Calcium Level 8.2 MG/DL (8.5-10.1) L Neurologic Exam Objective PHYSICAL EXAMINATION: GENERAL: He is a well-developed, well-nourished, gentleman, lying in bed undergoing HD. HEAD: Normocephalic and atraumatic. EENT: Examination benign. NECK: No neck rigidity was observed. NEUROLOGIC EXAMINATION: MENTAL STATUS EXAMINATION: He was awake and much more alert. He was oriented to self, hospital and August 2017 only. He was able to recall 3/3 words immediately, but could only remember 2/3 in 1 and 3 minutes. He was unable to remember any [place] presidents. SPEECH: He had no dysarthria. LANGUAGE: He had no aphasia. CRANIAL NERVE EXAMINATION: II: The visual dinh were intact on confrontation testing. III, IV & : The external ocular movements were present. The pupils were 3 mm in diameter and reactive sluggishly to light. V: He had normal facial sensations and the temporales, masseters and pterygoids functioned well. VII: He had normal facial expressions and no facial asymmetry. VIII: He was able to hear well and had no nystagmus. IX: The palate moved symmetrically on phonation. X: He had no hoarseness of voice. XI: The sternocleidomastoids and trapezii functioned well. XII: The tongue was in the midline. MOTOR SYSTEM: The tone was normal in all four extremities. Examination of muscle mass revealed no focal wasting. Examination of power revealed G 5/5 power in all muscle groups. SENSORY EXAMINATION: He responded appropriately to light touch. REFLEXES: Trace+ and bilaterally symmetrical at the biceps, triceps, brachioradialis, and knees, 0 at both ankles. The plantar responses were flexor bilaterally. COORDINATION: He performed well on finger to nose testing. STANCE & GAIT: Could not be tested. Impression/Recommendations Diagnostic Impression 1. Mr. Enoch Stover is a 37-year-old, gentleman, of unknown handedness, who was found unconscious in a hotel room on 08/29/2017 after he had used multiple drugs. He was found to be possibly febrile, hypoglycemic, and breathing rapidly. Since then, he has been hospitalized and treated for sepsis. 2. He feels better. The mind is clearing up. He however is still forgetful. He has not been out of bed today. He is behaving better now. His appetite is better and he is eating more. He is still generally weak. He denies any new neurologic symptoms. 3. On neurological examination, at this time, he is awake but not completely alert. He is disoriented to the exact date and name of the hospital. He does have problems with recent and remote memory. His speech and language are normal. His cranial nerves are also functioning normally. His motor function is good and his sensations preserved. His deep tendon reflexes are diminished but his plantar responses are flexor. He also does not demonstrate any definite focal or lateralizing neurological findings. 4. The CT scan of the brain performed on 08/29/2017 and repeated on 09/04/17 is benign for acute pathology. 5. Laboratory data obtained thus far revealed, on admission, his hemoglobin was elevated to 18.4, his WBC was normal at 8,500, but since then his WBCs have peaked to 17,200. His chemistry panel on admission revealed BUN elevated to 31 , creatinine elevated to 3.6, lactic acid elevated to 5.5, bilirubin elevated at 1.2, AST elevated at 478, ALT elevated to 159, CK elevated to greater than 10 ,000, troponin elevated at 1.01, BNP elevated to 2143. His urine toxicology screen was positive for opiates, amphetamines, cocaine, and marijuana. His INR was elevated at 1.2. His TSH is elevated at 4.72. The T3 is low but the T4 is normal. 6. The patient's history, neurological examination, laboratory data, and imaging studies are most compatible with an altered mental state due to a toxic metabolic encephalopathy. 7. The most likely etiology for the encephalopathy is the sepsis, possibly a period of hypoglycemia and ongoing multiple metabolic imbalances and the toxic imbalances. In addition the use of mind-altering drugs could have also been contributing. 8. His encephalopathy is still waxing and waning and is minimally worse today. Recommendations 1. Continue present management. 2. Try to wean the patient off mind-altering drugs. 3. Continue aggressive treatment of the patient's sepsis. 4. Aggressive management of toxic/metabolic imbalances. 5. Observe closely. Chris Ricketts M.D., M.S.P.H. CHRIS RICKETTS Sep 06, 2017 15:32
--- NOTE | 2017-09-06 15:35 | GI Progress Note ---
Assessment/Plan Problems: (1) Severe sepsis ICD Codes: A41.9 - Sepsis, unspecified organism; R65.20 - Severe sepsis without septic shock SNOMED: 64461647 (2) Rhabdomyolysis ICD Codes: M62.82 - Rhabdomyolysis SNOMED: 922275890 Qualifiers: Qualified Codes: T79.6XXA - Traumatic ischemia of muscle, initial encounter (3) Aspiration pneumonia ICD Codes: J69.0 - Pneumonitis due to inhalation of food and vomit SNOMED: 334211156 Qualifiers: Qualified Codes: J69.0 - Pneumonitis due to inhalation of food and vomit (4) Substance abuse ICD Codes: F19.10 - Other psychoactive substance abuse, uncomplicated SNOMED: 84794702 (5) Transaminitis ICD Codes: R74.0 - Nonspecific elevation of levels of transaminase and lactic acid dehydrogenase [LDH] SNOMED: 067338184, 219619982 Status: progressing Status Narrative Discussed with Dr. Chavez. Assessment/Plan Hep A immunity Hep C positive extubated transaminitis >> downtrending regular diet, tolerating fu labs, trend LFTs supportive care dc ppi, add H2B outpatient Hep C tx The patient was seen and examined at bedside and all new and available data was reviewed in the patients chart. I agree with the above findings, impression and plan. (Patient seen earlier today. Signature stamp does not reflect patient encounter time.). - Efrain Chavez MD Subjective Subjective generalized weakness Objective Last 24 Hour Vital Signs Date Time Temp Pulse Resp B/P (MAP) Pulse Ox O2 Delivery O2 Flow Rate FiO2 09/06/17 12:00 97.6 70 18 109/56 (73) 97 97.6 09/06/17 09:10 136/71 09/06/17 08:45 Room Air 09/06/17 08:00 97.5 68 19 136/71 (92) 95 97.5 09/06/17 04:43 129/77 09/06/17 04:00 99.5 72 18 129/77 (94) 96 99.5 09/06/17 02:04 99.5 09/06/17 01:05 101.0 09/06/17 00:00 101.0 78 18 138/84 (102) 97 101.0 09/05/17 22:13 140/76 09/05/17 21:00 Room Air Room Air 09/05/17 20:00 99.7 90 18 140/76 (97) 96 99.7 09/05/17 18:45 Room Air 09/05/17 18:43 98.2 83 20 166/86 (112) 98.2 09/05/17 16:00 97.4 62 16 132/78 (96) 97 97.4 62 09/05/17 16:00 Room Air Room Air Intake and Output 09/05/17 09/06/17 19:00 07:00 Intake Total 750 ml 500 ml Output Total 2000 ml Balance -1250 ml 500 ml Intake Oral 400 ml IV Total 350 ml 500 ml Hemodialysis UF 2000 ml # Voids 3 # Bowel Movements 5 3 Laboratory Tests Test 09/05/17 18:00 09/06/17 06:10 Total Bilirubin 0.8 MG/DL (0.2-1.0) Direct Bilirubin 0.3 MG/DL (0.0-0.3) Aspartate Amino Transf (AST/SGOT) 315 U/L (15-37) H Alanine Aminotransferase (ALT/SGPT) 443 U/L (12-78) H Alkaline Phosphatase 204 U/L (46-116) H Total Protein 5.4 G/DL (6.4-8.2) L Albumin 2.1 G/DL (3.4-5.0) L White Blood Count 25.4 K/UL (4.8-10.8) *H Red Blood Count 3.08 M/UL (4.70-6.10) L Hemoglobin 9.8 G/DL (14.2-18.0) L Hematocrit 28.1 % (42.0-52.0) L Mean Corpuscular Volume 91 FL (80-99) Mean Corpuscular Hemoglobin 32.0 PG (27.0-31.0) H Mean Corpuscular Hemoglobin Concent 35.1 G/DL (32.0-36.0) Red Cell Distribution Width 11.7 % (11.6-14.8) Platelet Count 420 K/UL (150-450) Mean Platelet Volume 6.0 FL (6.5-10.1) L Neutrophils (%) (Auto) % (45.0-75.0) Lymphocytes (%) (Auto) % (20.0-45.0) Monocytes (%) (Auto) % (1.0-10.0) Eosinophils (%) (Auto) % (0.0-3.0) Basophils (%) (Auto) % (0.0-2.0) Differential Total Cells Counted 100 Neutrophils % (Manual) 78 % (45-75) H Lymphocytes % (Manual) 4 % (20-45) L Monocytes % (Manual) 12 % (1-10) H Eosinophils % (Manual) 0 % (0-3) Basophils % (Manual) 0 % (0-2) Metamyelocytes % 1 % (0-0) H Myelocytes % 3 % (0-0) H Band Neutrophils 2 % (0-8) Platelet Estimate Adequate Platelet Morphology Normal Hypochromasia 1+ Anisocytosis 1+ Sodium Level 133 MMOL/L (136-145) L Potassium Level 4.3 MMOL/L (3.5-5.1) Chloride Level 98 MMOL/L (98-107) Carbon Dioxide Level 22 MMOL/L (21-32) Anion Gap 13 mmol/L (5-15) Blood Urea Nitrogen 100 mg/dL (7-18) H Creatinine 12.1 MG/DL (0.55-1.30) H Estimat Glomerular Filtration Rate 4.7 mL/min (>60) Glucose Level 130 MG/DL (74-106) H Calcium Level 8.2 MG/DL (8.5-10.1) L Height (Feet): 5 Height (Inches): 8.00 Weight (Pounds): 183 General Appearance: WD/WN, no apparent distress, alert, other - periods of confusion Cardiovascular: normal rate Respiratory/Chest: normal breath sounds, no respiratory distress Abdominal Exam: normal bowel sounds, non tender, soft Extremities: normal range of motion, non-tender Carlos Lopez NP Sep 06, 2017 15:35
[2017-09-06 16:00] VITALS: BP 119/65
[2017-09-06] MEDS ORDERED: Vancomycin 1500mg IVPB SCH (16:00)
[2017-09-06] MEDS: Piperacillin/Tazobactam 2.25 GM in D5W 55 ML IVPB SCH ×2 (16:04→22:17)
[2017-09-06] MEDS: SODIUM BICARBONATE IV SCH (16:26)
[2017-09-06] MEDS: D5 IV SCH (16:26)
[2017-09-06] MEDS: [UNRECOGNIZED DRUG - OTHER] IV SCH (16:26)
[2017-09-06] MEDS ORDERED: ceFAZolin sod 1 GM in D5W 55 ML IVPB SCH (17:00)
[2017-09-06 20:00] VITALS: BP 119/69
[2017-09-06] MEDS: Dyna-Hex 2% Top Sol 2oz TOPIC SCH (21:06)
--- NOTE | 2017-09-06 21:18 | Cardiology Progress Note ---
Assessment/Plan Assessment/Plan 1. Sinus tachycardia, resolved, continue hydration. 2. LUCRECIA due to rhabdomyolysis. 3. Shock liver 4. Acute pancreatitis with systemic inflammatory response disease. 5. Elevated troponin I level likely myocarditis, sepsis, or due to shock. 6. Sepsis, ? endocarditis, hx if IV drug abuse, will schedule for KATELYN next week. Subjective Subjective No cardiac events. Transferred to Med-surg unit. Objective Last 24 Hour Vital Signs Date Time Temp Pulse Resp B/P (MAP) Pulse Ox O2 Delivery O2 Flow Rate FiO2 09/06/17 20:26 Room Air 3.0 21 09/06/17 20:11 97 Room Air 21 09/06/17 20:11 Room Air 21 09/06/17 16:01 119/65 09/06/17 16:00 99.0 71 20 119/65 (83) 96 99.0 09/06/17 12:00 97.6 70 18 109/56 (73) 97 97.6 09/06/17 09:10 136/71 09/06/17 08:45 Room Air 09/06/17 08:00 97.5 68 19 136/71 (92) 95 97.5 09/06/17 04:43 129/77 09/06/17 04:00 99.5 72 18 129/77 (94) 96 99.5 09/06/17 02:04 99.5 09/06/17 01:05 101.0 09/06/17 00:00 101.0 78 18 138/84 (102) 97 101.0 09/05/17 22:13 140/76 Intake and Output 09/05/17 09/06/17 19:00 07:00 Intake Total 750 ml 500 ml Output Total 2000 ml Balance -1250 ml 500 ml Intake Oral 400 ml IV Total 350 ml 500 ml Hemodialysis UF 2000 ml # Voids 3 # Bowel Movements 5 3 2D Echo: LVEF 55-60% Laboratory Tests Test 09/06/17 06:10 White Blood Count 25.4 K/UL (4.8-10.8) *H Red Blood Count 3.08 M/UL (4.70-6.10) L Hemoglobin 9.8 G/DL (14.2-18.0) L Hematocrit 28.1 % (42.0-52.0) L Mean Corpuscular Volume 91 FL (80-99) Mean Corpuscular Hemoglobin 32.0 PG (27.0-31.0) H Mean Corpuscular Hemoglobin Concent 35.1 G/DL (32.0-36.0) Red Cell Distribution Width 11.7 % (11.6-14.8) Platelet Count 420 K/UL (150-450) Mean Platelet Volume 6.0 FL (6.5-10.1) L Neutrophils (%) (Auto) % (45.0-75.0) Lymphocytes (%) (Auto) % (20.0-45.0) Monocytes (%) (Auto) % (1.0-10.0) Eosinophils (%) (Auto) % (0.0-3.0) Basophils (%) (Auto) % (0.0-2.0) Differential Total Cells Counted 100 Neutrophils % (Manual) 78 % (45-75) H Lymphocytes % (Manual) 4 % (20-45) L Monocytes % (Manual) 12 % (1-10) H Eosinophils % (Manual) 0 % (0-3) Basophils % (Manual) 0 % (0-2) Metamyelocytes % 1 % (0-0) H Myelocytes % 3 % (0-0) H Band Neutrophils 2 % (0-8) Platelet Estimate Adequate Platelet Morphology Normal Hypochromasia 1+ Anisocytosis 1+ Sodium Level 133 MMOL/L (136-145) L Potassium Level 4.3 MMOL/L (3.5-5.1) Chloride Level 98 MMOL/L (98-107) Carbon Dioxide Level 22 MMOL/L (21-32) Anion Gap 13 mmol/L (5-15) Blood Urea Nitrogen 100 mg/dL (7-18) H Creatinine 12.1 MG/DL (0.55-1.30) H Estimat Glomerular Filtration Rate 4.7 mL/min (>60) Glucose Level 130 MG/DL (74-106) H Calcium Level 8.2 MG/DL (8.5-10.1) L Microbiology Date/Time Source Procedure Growth Status 09/04/17 21:10 Stool Clostridium difficile Toxin Assay - Final Complete Objective HEENT: Atraumatic and normocephalic. Pupils are equal, round, and reactive to light and accommodation. Scleral injection in both eyes. Dry mucosal membranes. NECK: JVP cannot be assessed. CVS: Normal S1, S2. Cannot appreciate any murmurs, gallops, or rubs. LUNGS: Clear to auscultation bilaterally. ABDOMEN: Soft, nontender, and nondistended. No hepatosplenomegaly. Positive bowel sounds. EXTREMITIES: No evidence of edema, clubbing, or cyanosis. Jorge Mcdonough MD Sep 06, 2017 21:18
[2017-09-07 00:32] VITALS: BP 143/69
[2017-09-07 04:00] VITALS: BP 124/71
[2017-09-07] MEDS: cloNIDine 0.2mg Tab ORAL SCH ×4 (04:33→22:00)
[2017-09-07] MEDS: Piperacillin/Tazobactam 2.25 GM in D5W 55 ML IVPB SCH ×3 (05:52→21:59)
[2017-09-07 06:29] LABS: HEMATOCRIT 27.9 % (42.0-52.0); HEMOGLOBIN 10.1 G/DL (14.2-18.0); MEAN CORPUSCULAR VOLUME 91 FL (80-99); PLATELET COUNT 485 K/UL (150-450); RED BLOOD COUNT 3.07 M/UL (4.70-6.10); RED CELL DISTRIBUTION WIDTH 11.3 % (11.6-14.8)
[2017-09-07 06:34] LABS: WHITE BLOOD COUNT 29.2 K/UL (4.8-10.8)
[2017-09-07 06:57] LABS: ALANINE AMINOTRANSFERASE 217 U/L (12-78); ALBUMIN 1.8 G/DL (3.4-5.0); ALBUMIN/GLOBULIN RATIO 0.5 (1.0-2.7); ALKALINE PHOSPHATASE 147 U/L (46-116); ANION GAP 16 mmol/L (5-15); ASPARTATE AMINO TRANSFERASE 161 U/L (15-37); BILIRUBIN,TOTAL 0.6 MG/DL (0.2-1.0); BLOOD UREA NITROGEN 113 mg/dL (7-18); CALCIUM 8.2 MG/DL (8.5-10.1); CARBON DIOXIDE 20 MMOL/L (21-32); CHLORIDE 95 MMOL/L (98-107); CREATININE 14.1 MG/DL (0.55-1.30); POTASSIUM 4.6 MMOL/L (3.5-5.1); SODIUM 130 MMOL/L (136-145)
[2017-09-07 08:00] VITALS: BP 137/68
[2017-09-07] MEDS: Heparin 5000 units/ml inj SUBQ SCH ×2 (09:19→21:16)
--- NOTE | 2017-09-07 11:29 | General Progress Note ---
Assessment/Plan Status: stable Assessment/Plan INTERNAL MEDICINE PROGRESS NOTE Covering for Dr. Anaya # Resp failure #Rhabdomyolysis # NSTEMI # LUCRECIA Assessment/Plan vent abx neuro psyc eval cbc bmp am Subjective Date patient seen: Sep 07, 2017 ROS Limited/Unobtainable: Yes Allergies: Coded Allergies: NO KNOWN ALLERGIES (Verified Allergy, Unknown, 09/02/17) All Systems: reviewed and negative except above Subjective Pt awake and alert. No acute events. WBC elevated, pt on IV abx. Objective Last 24 Hour Vital Signs Date Time Temp Pulse Resp B/P (MAP) Pulse Ox O2 Delivery O2 Flow Rate FiO2 09/07/17 09:17 137/68 09/07/17 09:00 Room Air 09/07/17 08:22 95 Room Air 21 09/07/17 08:22 Room Air 21 09/07/17 08:00 99.1 75 18 137/68 (91) 95 99.1 09/07/17 04:33 124/71 09/07/17 04:00 98.7 77 20 124/71 (88) 95 98.7 09/07/17 00:32 98.1 68 17 143/69 (93) 97 98.1 09/06/17 22:17 119/69 09/06/17 21:00 Room Air 09/06/17 20:26 Room Air 3.0 21 09/06/17 20:11 97 Room Air 21 09/06/17 20:11 Room Air 21 09/06/17 20:00 99.6 69 19 119/69 (86) 98 99.6 09/06/17 16:01 119/65 09/06/17 16:00 99.0 71 20 119/65 (83) 96 99.0 09/06/17 12:00 97.6 70 18 109/56 (73) 97 97.6 Intake and Output 09/06/17 09/07/17 19:00 07:00 Intake Total 1460 ml 730 ml Balance 1460 ml 730 ml Intake Oral 1110 ml 120 ml IV Total 350 ml 610 ml Laboratory Tests 09/07/17 06:00: White Blood Count 29.2*H, Red Blood Count 3.07L, Hemoglobin 10.1L, Hematocrit 27.9L, Mean Corpuscular Volume 91, Mean Corpuscular Hemoglobin 32.9H, Mean Corpuscular Hemoglobin Concent 36.2H, Red Cell Distribution Width 11.3L, Platelet Count 485H, Mean Platelet Volume 5.8L, Neutrophils (%) (Auto) , Lymphocytes (%) (Auto) , Monocytes (%) (Auto) , Eosinophils (%) (Auto) , Basophils (%) (Auto) , Differential Total Cells Counted 100, Neutrophils % ( Manual) 80H, Lymphocytes % (Manual) 5L, Monocytes % (Manual) 13H, Eosinophils % (Manual) 2, Basophils % (Manual) 0, Band Neutrophils 0, Platelet Estimate Adequate, Platelet Morphology Normal, Hypochromasia , Anisocytosis 1+, Sodium Level 130L, Potassium Level 4.6, Chloride Level 95L, Carbon Dioxide Level 20L, Anion Gap 16H, Blood Urea Nitrogen 113H, Creatinine 14.1H, Estimat Glomerular Filtration Rate 3.9, Glucose Level 104, Calcium Level 8.2L, Total Bilirubin 0.6 , Aspartate Amino Transf (AST/SGOT) 161H, Alanine Aminotransferase (ALT/SGPT) 217H, Alkaline Phosphatase 147H, Total Protein 5.6L, Albumin 1.8L, Globulin 3.8 , Albumin/Globulin Ratio 0.5L, Lipase 474H Height (Feet): 5 Height (Inches): 8.00 Weight (Pounds): 199 General Appearance: no apparent distress, alert EENT: PERRL/EOMI Neck: normal alignment, supple Cardiovascular: normal peripheral pulses Respiratory/Chest: no respiratory distress Abdomen: soft Diogenes Flores MD Sep 07, 2017 11:29
[2017-09-07 12:00] VITALS: BP 124/78
--- NOTE | 2017-09-07 12:29 | Infectious Diseases Prog Note ---
Assessment/Plan Assessment/Plan Assessment: Shock, SP Aspiration PNA -CXR 09/04 : Interim development of hazy interstitial and airspace disease in the right lung. This may to some extent be an artifact of less optimal inspiration, however. Interim extubation -CXR 09/03: Marked improvement of previously demonstrated bilateral pulmonary edema, over one day -CXR:More consolidated areas within the diffuse airspace opacity within the right lung and now possible right pleural effusion. The patient is rotated to the right. Interval increase in patchy left perihilar airspace opacities. May represent component of pulmonary edema or aspiration pneumonitis. -sp cx normal ann; repeat sp cx MSSA -legionella ag urine neg Rule out sepsis -u/a wbc 5-10, nit neg, leuk +1; cx neg -Bcx NTD -2d Echo (limited but no vegetations seen) Fever/leukocytosis- initially suspect reactive and 2ry to PNA; now ongoing, worsening leukocytosis- r/o occult infection, endocarditis (+IVDA, possible myositis on CT), ?2ry to pancreatitis -Cdiff neg -v/duplex no DVT Drug overdose -UDS + opiates, amphetamines, THC, cocaine -+empty heroin needles (found on hotel room) -HIV ab sc and VL neg, RPR/FTA, GC/CL neg Multiorgan failure -LUCRECIA, - on HD -Transaminitis, (shock liver); improving -VDRF (airway protection)- now extubaetd 09/03 Lactic acidosis; resolved Rhabdomyolisis; improving3 Pancreatitis- drug induced -neg alcohol levels Encephalopathy- 2ry to above- r.o ischemia, r/o abscess (fever, IVDA +); much improved -CT head 09/04: Unusual scalp contusion, new since prior study 08/29/2017. No evidence of underlying calvarial trauma. Negative for acute intracranial bleed or mass effect -CT head 08/29: Limited exam due to motion artifact. No gross acute intracranial bleed or mass effect Hep C +; VL pending -ABD US: Gallbladder sludge. Negative for gallstones or dilated ducts. Equivocal increased hepatic echogenicity, if real could indicate hepatocellular disease such as fatty change. Borderline hepatomegaly. Mildly increased renal echogenicity, could indicate medical renal disease. Correlate with renal function tests. Left pleural effusion -Hep A and B immune Plan: -Continue empiric IV Vanco and Zosyn #2 (abx d#10) and add IV Micafungin to cover for fungemia given prolonged abx and central line -09/06 SP IV Ancef #4 -09/04 SP IV Azithromycin #3 -09/03 SP Zosyn #6 -f/u Repeat Bcx x2 -u/a w/ reflex, Spcx -f/u cx - KATELYN to eval for endocarditis given +IVDA -WBC tagged scan to eval for occult infection -Monitor CBC/CMP, temperatures -aspiration precautions -Neuro,c ardio, renal, GI f/u Discussed with RN Subjective Allergies: Coded Allergies: NO KNOWN ALLERGIES (Verified Allergy, Unknown, 09/02/17) Subjective afebrile >24hrs WBC up to 29 Bcx NTD anuric Objective Vital Signs Last 24 Hour Vital Signs Date Time Temp Pulse Resp B/P (MAP) Pulse Ox O2 Delivery O2 Flow Rate FiO2 09/07/17 09:17 137/68 09/07/17 09:00 Room Air 09/07/17 08:22 95 Room Air 21 09/07/17 08:22 Room Air 21 09/07/17 08:00 99.1 75 18 137/68 (91) 95 99.1 09/07/17 04:33 124/71 09/07/17 04:00 98.7 77 20 124/71 (88) 95 98.7 09/07/17 00:32 98.1 68 17 143/69 (93) 97 98.1 09/06/17 22:17 119/69 09/06/17 21:00 Room Air 09/06/17 20:26 Room Air 3.0 21 09/06/17 20:11 97 Room Air 21 09/06/17 20:11 Room Air 21 09/06/17 20:00 99.6 69 19 119/69 (86) 98 99.6 09/06/17 16:01 119/65 09/06/17 16:00 99.0 71 20 119/65 (83) 96 99.0 Height (Feet): 5 Height (Inches): 8.00 Weight (Pounds): 199 Objective General: intubated, restless HEENT: ETT in place Heart: RRR, no murmurs Lungs: CTA x2 ABD: S+D, ND, BS+ Extremity no edema or cellulitis Microbiology Date/Time Source Procedure Growth Status 09/05/17 18:00 Blood Blood Culture - Preliminary NO GROWTH AFTER 24 HOURS Resulted 09/05/17 17:00 Blood Blood Culture - Preliminary NO GROWTH AFTER 24 HOURS Resulted 09/04/17 21:10 Stool Clostridium difficile Toxin Assay - Final Complete Laboratory Tests Test 09/07/17 06:00 White Blood Count 29.2 K/UL (4.8-10.8) *H Red Blood Count 3.07 M/UL (4.70-6.10) L Hemoglobin 10.1 G/DL (14.2-18.0) L Hematocrit 27.9 % (42.0-52.0) L Mean Corpuscular Volume 91 FL (80-99) Mean Corpuscular Hemoglobin 32.9 PG (27.0-31.0) H Mean Corpuscular Hemoglobin Concent 36.2 G/DL (32.0-36.0) H Red Cell Distribution Width 11.3 % (11.6-14.8) L Platelet Count 485 K/UL (150-450) H Mean Platelet Volume 5.8 FL (6.5-10.1) L Neutrophils (%) (Auto) % (45.0-75.0) Lymphocytes (%) (Auto) % (20.0-45.0) Monocytes (%) (Auto) % (1.0-10.0) Eosinophils (%) (Auto) % (0.0-3.0) Basophils (%) (Auto) % (0.0-2.0) Differential Total Cells Counted 100 Neutrophils % (Manual) 80 % (45-75) H Lymphocytes % (Manual) 5 % (20-45) L Monocytes % (Manual) 13 % (1-10) H Eosinophils % (Manual) 2 % (0-3) Basophils % (Manual) 0 % (0-2) Band Neutrophils 0 % (0-8) Platelet Estimate Adequate Platelet Morphology Normal Hypochromasia Anisocytosis 1+ Sodium Level 130 MMOL/L (136-145) L Potassium Level 4.6 MMOL/L (3.5-5.1) Chloride Level 95 MMOL/L (98-107) L Carbon Dioxide Level 20 MMOL/L (21-32) L Anion Gap 16 mmol/L (5-15) H Blood Urea Nitrogen 113 mg/dL (7-18) H Creatinine 14.1 MG/DL (0.55-1.30) H Estimat Glomerular Filtration Rate 3.9 mL/min (>60) Glucose Level 104 MG/DL (74-106) Calcium Level 8.2 MG/DL (8.5-10.1) L Total Bilirubin 0.6 MG/DL (0.2-1.0) Aspartate Amino Transf (AST/SGOT) 161 U/L (15-37) H Alanine Aminotransferase (ALT/SGPT) 217 U/L (12-78) H Alkaline Phosphatase 147 U/L (46-116) H Total Protein 5.6 G/DL (6.4-8.2) L Albumin 1.8 G/DL (3.4-5.0) L Globulin 3.8 g/dL Albumin/Globulin Ratio 0.5 (1.0-2.7) L Lipase 474 U/L (73-393) H Current Medications Medications (Trade) Dose Ordered Sig/Krystyna Route PRN Reason Start Time Stop Time Status Last Admin Dose Admin Acetaminophen (Tylenol) 650 mg Q4H PRN ORAL Fever (temp>100.5F) 09/05/17 18:30 10/05/17 18:29 09/06/17 01:05 Chlorhexidine Gluconate (Jyotsna-Hex 2%) 1 applic DAILY@1999 TOPIC 09/05/17 20:00 09/29/17 19:59 09/06/17 21:06 Clonidine HCl (Catapres tab) 0.2 mg Q6H ORAL 09/05/17 22:00 10/04/17 15:59 09/07/17 09:17 Dextrose (Dextrose 50%) 25 ml STAT PRN IV Hypoglycemia 09/05/17 18:30 10/05/17 18:29 Dextrose (Dextrose 50%) 50 ml STAT PRN IV Hypoglycemia 09/05/17 18:30 10/05/17 18:29 Diazepam (Valium) 10 mg EVERY 4 HOURS PRN ORAL For Anxiety 09/06/17 13:15 09/13/17 13:14 09/07/17 00:14 Famotidine (Pepcid) 20 mg DAILY ORAL 09/07/17 09:00 10/07/17 08:59 09/07/17 09:17 Heparin Sodium (Porcine) (Heparin 5000 units/ml) 5,000 units EVERY 12 HOURS SUBQ 09/05/17 21:00 09/28/17 20:59 09/07/17 09:19 Heparin Sodium (Porcine) (Heparin) 2,000 unit ONCE INJ 09/09/17 06:00 09/10/17 23:59 Methadone HCl (Methadone HCl) 10 mg Q6H PRN ORAL For Pain 1-6 09/05/17 18:00 09/11/17 17:59 09/07/17 01:34 Mirtazapine (Remeron) 15 mg BEDTIME ORAL 09/05/17 21:00 10/04/17 20:59 09/06/17 21:06 Nitroglycerin (Ntg) 0.4 mg Q5M PRN SL Prn Chest Pain 09/05/17 18:30 09/28/17 14:44 Piperacillin Sod/ Tazobactam Sod 2.25 gm/Dextrose 55 ml @ 110 mls/hr Q8HR IVPB 09/06/17 16:00 09/11/17 15:59 09/07/17 05:52 Sodium Bicarbonate 50 ml/ Dextrose/Sodium Chloride 1,000 ml @ 50 mls/hr Q20H IV 09/05/17 20:00 09/30/17 19:59 09/06/17 16:26 Vancomycin HCl (Vanco rx to dose) 1 ea DAILY PRN MISC Per rx protocol 09/06/17 15:00 10/06/17 14:59 Krystal Romero M.D. Sep 07, 2017 12:29
[2017-09-07] MEDS ORDERED: Sodium Chloride 3% 4ml Nebul Soln INH ONE (12:30)
[2017-09-07] MEDS: SODIUM BICARBONATE IV SCH (13:16)
[2017-09-07] MEDS: D5 IV SCH (13:16)
[2017-09-07] MEDS: Micafungin 100 MG in NS 110 ML IVPB SCH (13:16)
[2017-09-07] MEDS: [UNRECOGNIZED DRUG - OTHER] IV SCH (13:16)
--- NOTE | 2017-09-07 15:55 | Neurology Progress Note ---
Interim History Interim History Interim History Mr. Stover feels better. The mind is clearing up. He however is still forgetful. He got out of bed and took a few steps with the PT today. He is behaving better now. His appetite is better and he is eating more. He is still generally weak. He denies any new neurologic symptoms. He specifically denies any weakness on one side or the other, numbness on one side or the other, problems with speech, problems with language, or problems with vision. Review of Systems Neuro Review of Systems Benign. Objective Physical Exam Last Vital Signs Date Time Temp Pulse Resp B/P (MAP) Pulse Ox O2 Delivery O2 Flow Rate FiO2 09/07/17 12:00 99.2 72 18 124/78 (93) 95 99.2 09/07/17 09:00 Room Air 09/07/17 08:22 21 09/06/17 20:26 3.0 Laboratory Tests Test 09/07/17 06:00 White Blood Count 29.2 K/UL (4.8-10.8) *H Red Blood Count 3.07 M/UL (4.70-6.10) L Hemoglobin 10.1 G/DL (14.2-18.0) L Hematocrit 27.9 % (42.0-52.0) L Mean Corpuscular Volume 91 FL (80-99) Mean Corpuscular Hemoglobin 32.9 PG (27.0-31.0) H Mean Corpuscular Hemoglobin Concent 36.2 G/DL (32.0-36.0) H Red Cell Distribution Width 11.3 % (11.6-14.8) L Platelet Count 485 K/UL (150-450) H Mean Platelet Volume 5.8 FL (6.5-10.1) L Neutrophils (%) (Auto) % (45.0-75.0) Lymphocytes (%) (Auto) % (20.0-45.0) Monocytes (%) (Auto) % (1.0-10.0) Eosinophils (%) (Auto) % (0.0-3.0) Basophils (%) (Auto) % (0.0-2.0) Differential Total Cells Counted 100 Neutrophils % (Manual) 80 % (45-75) H Lymphocytes % (Manual) 5 % (20-45) L Monocytes % (Manual) 13 % (1-10) H Eosinophils % (Manual) 2 % (0-3) Basophils % (Manual) 0 % (0-2) Band Neutrophils 0 % (0-8) Platelet Estimate Adequate Platelet Morphology Normal Hypochromasia Anisocytosis 1+ Sodium Level 130 MMOL/L (136-145) L Potassium Level 4.6 MMOL/L (3.5-5.1) Chloride Level 95 MMOL/L (98-107) L Carbon Dioxide Level 20 MMOL/L (21-32) L Anion Gap 16 mmol/L (5-15) H Blood Urea Nitrogen 113 mg/dL (7-18) H Creatinine 14.1 MG/DL (0.55-1.30) H Estimat Glomerular Filtration Rate 3.9 mL/min (>60) Glucose Level 104 MG/DL (74-106) Calcium Level 8.2 MG/DL (8.5-10.1) L Total Bilirubin 0.6 MG/DL (0.2-1.0) Aspartate Amino Transf (AST/SGOT) 161 U/L (15-37) H Alanine Aminotransferase (ALT/SGPT) 217 U/L (12-78) H Alkaline Phosphatase 147 U/L (46-116) H Total Protein 5.6 G/DL (6.4-8.2) L Albumin 1.8 G/DL (3.4-5.0) L Globulin 3.8 g/dL Albumin/Globulin Ratio 0.5 (1.0-2.7) L Lipase 474 U/L (73-393) H Neurologic Exam Objective PHYSICAL EXAMINATION: GENERAL: He is a well-developed, well-nourished, gentleman, lying in bed. HEAD: Normocephalic and atraumatic. EENT: Examination benign. NECK: No neck rigidity was observed. NEUROLOGIC EXAMINATION: MENTAL STATUS EXAMINATION: He was awake and much more alert. He was oriented to self, hospital and August 2017 only. He was able to recall 3/3 words immediately, but could only remember 2/3 in 1 and 3 minutes. He was unable to remember any [place] presidents. SPEECH: He had no dysarthria. LANGUAGE: He had no aphasia. CRANIAL NERVE EXAMINATION: II: The visual dinh were intact on confrontation testing. III, IV & : The external ocular movements were present. The pupils were 3 mm in diameter and reactive sluggishly to light. V: He had normal facial sensations and the temporales, masseters and pterygoids functioned well. VII: He had normal facial expressions and no facial asymmetry. VIII: He was able to hear well and had no nystagmus. IX: The palate moved symmetrically on phonation. X: He had no hoarseness of voice. XI: The sternocleidomastoids and trapezii functioned well. XII: The tongue was in the midline. MOTOR SYSTEM: The tone was normal in all four extremities. Examination of muscle mass revealed no focal wasting. Examination of power revealed G 5/5 power in all muscle groups except for G 0/5 in the right ankle dorsiflexors and toe extensors, G 5-/5 in the left ankle dorsiflexors and toe extensors, and G 4/5 in the iliopsoas muscle bilaterally. SENSORY EXAMINATION: He was able to discern pin prick and light ouch but complained of altered sensations in the right peroneal distribution. REFLEXES: Trace+ and bilaterally symmetrical at the biceps, triceps, brachioradialis, and knees, 0 at both ankles. The plantar responses were flexor bilaterally. COORDINATION: He performed well on finger to nose testing. STANCE & GAIT: Could not be tested. Impression/Recommendations Diagnostic Impression 1. Mr. Enoch Stover is a 37-year-old, gentleman, of unknown handedness, who was found unconscious in a hotel room on 08/29/2017 after he had used multiple drugs. He was found to be possibly febrile, hypoglycemic, and breathing rapidly. Since then, he has been hospitalized and treated for sepsis. 2. He feels better. The mind is clearing up. He however is still forgetful. He got out of bed and took a few steps with the PT today. He is behaving better now. His appetite is better and he is eating more. He is still generally weak. He denies any new neurologic symptoms. 3. On neurological examination, at this time, he is awake but not completely alert. He is disoriented to the exact date and name of the hospital. He does have problems with recent and remote memory. His speech and language are normal. His cranial nerves are also functioning normally. His motor function is relatively good he however has mild proximal lower extremity weakness, and in addition right > left distal lower extremity weakness with a severe right peroneal neuropathy. His sensations are also altered in the right peroneal distribution. His deep tendon reflexes are diminished but his plantar responses are flexor. He also does not demonstrate any definite focal or lateralizing neurological findings. 4. The CT scan of the brain performed on 08/29/2017 and repeated on 09/04/17 is benign for acute pathology. 5. Laboratory data obtained thus far revealed, on admission, his hemoglobin was elevated to 18.4, his WBC was normal at 8,500, but since then his WBCs have peaked to 17,200. His chemistry panel on admission revealed BUN elevated to 31 , creatinine elevated to 3.6, lactic acid elevated to 5.5, bilirubin elevated at 1.2, AST elevated at 478, ALT elevated to 159, CK elevated to greater than 10 ,000, troponin elevated at 1.01, BNP elevated to 2143. His urine toxicology screen was positive for opiates, amphetamines, cocaine, and marijuana. His INR was elevated at 1.2. His TSH is elevated at 4.72. The T3 is low but the T4 is normal. 6. The patient's history, neurological examination, laboratory data, and imaging studies are most compatible with an altered mental state due to a toxic metabolic encephalopathy. 7. The most likely etiology for the encephalopathy is the sepsis, possibly a period of hypoglycemia and ongoing multiple metabolic imbalances and the toxic imbalances. In addition the use of mind-altering drugs could have also been contributing. 8. His encephalopathy is still waxing and waning and is minimally worse today. 9. He has also developed bilateral mild proximal lower extremity weakness, and in addition right > left distal lower extremity weakness with a severe right peroneal neuropathy. His sensations are also altered in the right peroneal distribution. Recommendations 1. Continue present management. 2. Continue aggressive treatment of the patient's sepsis. 3. Aggressive management of toxic/metabolic imbalances. 4. AFO for right foot drop. 5. PT/OT. 6. Observe closely. Chris Ricketts M.D., M.S.P.CHRIS GARDINER Sep 07, 2017 15:55
--- NOTE | 2017-09-07 15:56 | Cardiology Progress Note ---
Assessment/Plan Assessment/Plan 1. Sinus tachycardia, resolved, continue hydration. 2. LUCRECIA due to rhabdomyolysis. 3. Shock liver 4. Acute pancreatitis with systemic inflammatory response disease. 5. Elevated troponin I level likely myocarditis, sepsis, or due to shock. 6. Sepsis, ? endocarditis, hx if IV drug abuse, will schedule for [facility] for Saturday. Subjective Subjective No cardiac events. Denies chest pain or SOB. Objective Last 24 Hour Vital Signs Date Time Temp Pulse Resp B/P (MAP) Pulse Ox O2 Delivery O2 Flow Rate FiO2 09/07/17 12:00 99.2 72 18 124/78 (93) 95 99.2 09/07/17 09:17 137/68 09/07/17 09:00 Room Air 09/07/17 08:22 95 Room Air 21 09/07/17 08:22 Room Air 21 09/07/17 08:00 99.1 75 18 137/68 (91) 95 99.1 09/07/17 04:33 124/71 09/07/17 04:00 98.7 77 20 124/71 (88) 95 98.7 09/07/17 00:32 98.1 68 17 143/69 (93) 97 98.1 09/06/17 22:17 119/69 09/06/17 21:00 Room Air 09/06/17 20:26 Room Air 3.0 21 09/06/17 20:11 97 Room Air 21 09/06/17 20:11 Room Air 21 09/06/17 20:00 99.6 69 19 119/69 (86) 98 99.6 09/06/17 16:01 119/65 09/06/17 16:00 99.0 71 20 119/65 (83) 96 99.0 Intake and Output 09/06/17 09/07/17 19:00 07:00 Intake Total 1460 ml 730 ml Balance 1460 ml 730 ml Intake Oral 1110 ml 120 ml IV Total 350 ml 610 ml 2D Echo: LVEF 55-60% Laboratory Tests Test 09/07/17 06:00 White Blood Count 29.2 K/UL (4.8-10.8) *H Red Blood Count 3.07 M/UL (4.70-6.10) L Hemoglobin 10.1 G/DL (14.2-18.0) L Hematocrit 27.9 % (42.0-52.0) L Mean Corpuscular Volume 91 FL (80-99) Mean Corpuscular Hemoglobin 32.9 PG (27.0-31.0) H Mean Corpuscular Hemoglobin Concent 36.2 G/DL (32.0-36.0) H Red Cell Distribution Width 11.3 % (11.6-14.8) L Platelet Count 485 K/UL (150-450) H Mean Platelet Volume 5.8 FL (6.5-10.1) L Neutrophils (%) (Auto) % (45.0-75.0) Lymphocytes (%) (Auto) % (20.0-45.0) Monocytes (%) (Auto) % (1.0-10.0) Eosinophils (%) (Auto) % (0.0-3.0) Basophils (%) (Auto) % (0.0-2.0) Differential Total Cells Counted 100 Neutrophils % (Manual) 80 % (45-75) H Lymphocytes % (Manual) 5 % (20-45) L Monocytes % (Manual) 13 % (1-10) H Eosinophils % (Manual) 2 % (0-3) Basophils % (Manual) 0 % (0-2) Band Neutrophils 0 % (0-8) Platelet Estimate Adequate Platelet Morphology Normal Hypochromasia Anisocytosis 1+ Sodium Level 130 MMOL/L (136-145) L Potassium Level 4.6 MMOL/L (3.5-5.1) Chloride Level 95 MMOL/L (98-107) L Carbon Dioxide Level 20 MMOL/L (21-32) L Anion Gap 16 mmol/L (5-15) H Blood Urea Nitrogen 113 mg/dL (7-18) H Creatinine 14.1 MG/DL (0.55-1.30) H Estimat Glomerular Filtration Rate 3.9 mL/min (>60) Glucose Level 104 MG/DL (74-106) Calcium Level 8.2 MG/DL (8.5-10.1) L Total Bilirubin 0.6 MG/DL (0.2-1.0) Aspartate Amino Transf (AST/SGOT) 161 U/L (15-37) H Alanine Aminotransferase (ALT/SGPT) 217 U/L (12-78) H Alkaline Phosphatase 147 U/L (46-116) H Total Protein 5.6 G/DL (6.4-8.2) L Albumin 1.8 G/DL (3.4-5.0) L Globulin 3.8 g/dL Albumin/Globulin Ratio 0.5 (1.0-2.7) L Lipase 474 U/L (73-393) H Microbiology Date/Time Source Procedure Growth Status 09/05/17 18:00 Blood Blood Culture - Preliminary NO GROWTH AFTER 24 HOURS Resulted 09/05/17 17:00 Blood Blood Culture - Preliminary NO GROWTH AFTER 24 HOURS Resulted 09/04/17 21:10 Stool Clostridium difficile Toxin Assay - Final Complete Objective HEENT: Atraumatic and normocephalic. Pupils are equal, round, and reactive to light and accommodation. Scleral injection in both eyes. Dry mucosal membranes. NECK: JVP cannot be assessed. CVS: Normal S1, S2. Cannot appreciate any murmurs, gallops, or rubs. LUNGS: Clear to auscultation bilaterally. ABDOMEN: Soft, nontender, and nondistended. No hepatosplenomegaly. Positive bowel sounds. EXTREMITIES: No evidence of edema, clubbing, or cyanosis. Jorge Mcdonough MD Sep 07, 2017 15:56
[2017-09-07 16:00] VITALS: BP 122/66
--- NOTE | 2017-09-07 16:43 | General Progress Note ---
Assessment/Plan Assessment/Plan Assessment (1) Severe sepsis ICD Codes: A41.9 - Sepsis, unspecified organism; R65.20 - Severe sepsis without septic shock SNOMED: 67560238 (2) Rhabdomyolysis ICD Codes: M62.82 - Rhabdomyolysis SNOMED: 510424291 Qualifiers: Qualified Codes: T79.6XXA - Traumatic ischemia of muscle, initial encounter (3) Aspiration pneumonia ICD Codes: J69.0 - Pneumonitis due to inhalation of food and vomit SNOMED: 314692124 Qualifiers: Qualified Codes: J69.0 - Pneumonitis due to inhalation of food and vomit (4) Substance abuse ICD Codes: F19.10 - Other psychoactive substance abuse, uncomplicated SNOMED: 10309814 (5) Transaminitis ICD Codes: R74.0 - Nonspecific elevation of levels of transaminase and lactic acid dehydrogenase [LDH] SNOMED: 505425816, 518465255 Status: progressing Assessment/Plan Hep A immunity Hep C positive extubated transaminitis >> downtrending regular diet, tolerating fu labs, trend LFTs supportive care dc ppi, add H2B outpatient Hep C tx Subjective Allergies: Coded Allergies: NO KNOWN ALLERGIES (Verified Allergy, Unknown, 09/02/17) Subjective feel "OK" poor appetite Objective Last 24 Hour Vital Signs Date Time Temp Pulse Resp B/P (MAP) Pulse Ox O2 Delivery O2 Flow Rate FiO2 09/07/17 16:03 124/78 09/07/17 12:00 99.2 72 18 124/78 (93) 95 99.2 09/07/17 09:17 137/68 09/07/17 09:00 Room Air 09/07/17 08:22 95 Room Air 21 09/07/17 08:22 Room Air 21 09/07/17 08:00 99.1 75 18 137/68 (91) 95 99.1 09/07/17 04:33 124/71 09/07/17 04:00 98.7 77 20 124/71 (88) 95 98.7 09/07/17 00:32 98.1 68 17 143/69 (93) 97 98.1 09/06/17 22:17 119/69 09/06/17 21:00 Room Air 09/06/17 20:26 Room Air 3.0 21 09/06/17 20:11 97 Room Air 21 09/06/17 20:11 Room Air 21 09/06/17 20:00 99.6 69 19 119/69 (86) 98 99.6 Intake and Output 09/06/17 09/07/17 19:00 07:00 Intake Total 1460 ml 730 ml Balance 1460 ml 730 ml Intake Oral 1110 ml 120 ml IV Total 350 ml 610 ml Laboratory Tests 09/07/17 06:00: White Blood Count 29.2*H, Red Blood Count 3.07L, Hemoglobin 10.1L, Hematocrit 27.9L, Mean Corpuscular Volume 91, Mean Corpuscular Hemoglobin 32.9H, Mean Corpuscular Hemoglobin Concent 36.2H, Red Cell Distribution Width 11.3L, Platelet Count 485H, Mean Platelet Volume 5.8L, Neutrophils (%) (Auto) , Lymphocytes (%) (Auto) , Monocytes (%) (Auto) , Eosinophils (%) (Auto) , Basophils (%) (Auto) , Differential Total Cells Counted 100, Neutrophils % ( Manual) 80H, Lymphocytes % (Manual) 5L, Monocytes % (Manual) 13H, Eosinophils % (Manual) 2, Basophils % (Manual) 0, Band Neutrophils 0, Platelet Estimate Adequate, Platelet Morphology Normal, Hypochromasia , Anisocytosis 1+, Sodium Level 130L, Potassium Level 4.6, Chloride Level 95L, Carbon Dioxide Level 20L, Anion Gap 16H, Blood Urea Nitrogen 113H, Creatinine 14.1H, Estimat Glomerular Filtration Rate 3.9, Glucose Level 104, Calcium Level 8.2L, Total Bilirubin 0.6 , Aspartate Amino Transf (AST/SGOT) 161H, Alanine Aminotransferase (ALT/SGPT) 217H, Alkaline Phosphatase 147H, Total Protein 5.6L, Albumin 1.8L, Globulin 3.8 , Albumin/Globulin Ratio 0.5L, Lipase 474H Height (Feet): 5 Height (Inches): 8.00 Weight (Pounds): 199 Objective WDWN NCAT supple CTA RRR soft no edema Raffi Huang MD Sep 07, 2017 16:43
[2017-09-07] MEDS ORDERED: NS 275ml ONE (17:57)
[2017-09-07] MEDS ORDERED: Tubing IV Secondary IV ONE (17:57)
[2017-09-07 20:00] VITALS: BP 127/65
[2017-09-07] MEDS: Dyna-Hex 2% Top Sol 2oz TOPIC SCH (21:13)
[2017-09-08 04:00] VITALS: BP 134/74
[2017-09-08] MEDS: cloNIDine 0.2mg Tab ORAL SCH ×4 (04:29→21:45)
[2017-09-08] MEDS: Piperacillin/Tazobactam 2.25 GM in D5W 55 ML IVPB SCH ×3 (05:16→21:43)
[2017-09-08 07:02] LABS: CREATINE KINASE 1624 U/L (26-308)
[2017-09-08 08:00] VITALS: BP 114/70
[2017-09-08] MEDS: [UNRECOGNIZED DRUG - OTHER] IV SCH (08:27)
[2017-09-08] MEDS: SODIUM BICARBONATE IV SCH (08:27)
[2017-09-08] MEDS: D5 IV SCH (08:27)
[2017-09-08] MEDS: Heparin 5000 units/ml inj SUBQ SCH ×2 (08:29→21:45)
[2017-09-08 12:00] VITALS: BP 120/68
[2017-09-08] MEDS: Micafungin 100 MG in NS 110 ML IVPB SCH (12:06)
--- NOTE | 2017-09-08 13:04 | Neurology Progress Note ---
Interim History Interim History Interim History Mr. Stover feels better generally. The mind is clearing up. He however is still forgetful. He got out of bed and took a few steps with the PT today. He is behaving better now. His appetite is better and he is eating more. He is still generally weak. He denies any new neurologic symptoms. He specifically denies any weakness on one side or the other, numbness on one side or the other, problems with speech, problems with language, or problems with vision. Review of Systems Neuro Review of Systems Benign. Objective Physical Exam Last Vital Signs Date Time Temp Pulse Resp B/P (MAP) Pulse Ox O2 Delivery O2 Flow Rate FiO2 09/08/17 10:13 136/70 09/08/17 09:00 Room Air 09/08/17 08:00 98.6 84 20 95 98.6 09/07/17 19:14 3.0 21 Laboratory Tests Test 09/08/17 05:25 Total Creatine Kinase 1624 U/L (26-308) H Random Vancomycin Level 28.4 ug/mL Neurologic Exam Objective PHYSICAL EXAMINATION: GENERAL: He is a well-developed, well-nourished, gentleman, lying in bed. HEAD: Normocephalic and atraumatic. EENT: Examination benign. NECK: No neck rigidity was observed. NEUROLOGIC EXAMINATION: MENTAL STATUS EXAMINATION: He was awake and much more alert. He was oriented to self, hospital and August 2017 only. He was able to recall 3/3 words immediately, but could only remember 2/3 in 1 and 3 minutes. He was unable to remember any [place] presidents. SPEECH: He had no dysarthria. LANGUAGE: He had no aphasia. CRANIAL NERVE EXAMINATION: II: The visual dinh were intact on confrontation testing. III, IV & : The external ocular movements were present. The pupils were 3 mm in diameter and reactive sluggishly to light. V: He had normal facial sensations and the temporales, masseters and pterygoids functioned well. VII: He had normal facial expressions and no facial asymmetry. VIII: He was able to hear well and had no nystagmus. IX: The palate moved symmetrically on phonation. X: He had no hoarseness of voice. XI: The sternocleidomastoids and trapezii functioned well. XII: The tongue was in the midline. MOTOR SYSTEM: The tone was normal in all four extremities. Examination of muscle mass revealed no focal wasting. Examination of power revealed G 5/5 power in all muscle groups except for G 0/5 in the right ankle dorsiflexors and toe extensors, G 3+/5 in the right ankle plantar flexors and toe flexors, G 5-/5 in the left ankle dorsiflexors and toe extensors, and G 4/5 in the iliopsoas muscle bilaterally. SENSORY EXAMINATION: He was able to discern pin prick and light ouch but complained of altered sensations in the right peroneal distribution. REFLEXES: Trace+ and bilaterally symmetrical at the biceps, triceps, brachioradialis, and knees, 0 at both ankles. The plantar responses were flexor bilaterally. COORDINATION: He performed well on finger to nose testing. STANCE & GAIT: Could not be tested. Impression/Recommendations Diagnostic Impression 1. Mr. Enoch Stover is a 37-year-old, gentleman, of unknown handedness, who was found unconscious in a hotel room on 08/29/2017 after he had used multiple drugs. He was found to be possibly febrile, hypoglycemic, and breathing rapidly. Since then, he has been hospitalized and treated for sepsis. 2. He feels better generally. The mind is clearing up. He however is still forgetful. He got out of bed and took a few steps with the PT today. He is behaving better now. His appetite is better and he is eating more. He is still generally weak. He denies any new neurologic symptoms. 3. On neurological examination, at this time, he is awake but not completely alert. He is disoriented to the exact date and name of the hospital. He does have problems with recent and remote memory. His speech and language are normal. His cranial nerves are also functioning normally. His motor function is relatively good he however has mild proximal lower extremity weakness, and in addition right > left distal lower extremity weakness with a severe right peroneal nerve dysfunction and now some right tibial nerve dysfunction. His sensations are also altered in the right peroneal distribution. His deep tendon reflexes are diminished but his plantar responses are flexor. He also does not demonstrate any definite focal or lateralizing neurological findings. 4. The CT scan of the brain performed on 08/29/2017 and repeated on 09/04/17 is benign for acute pathology. 5. Laboratory data obtained thus far revealed, on admission, his hemoglobin was elevated to 18.4, his WBC was normal at 8,500, but since then his WBCs have peaked to 17,200. His chemistry panel on admission revealed BUN elevated to 31 , creatinine elevated to 3.6, lactic acid elevated to 5.5, bilirubin elevated at 1.2, AST elevated at 478, ALT elevated to 159, CK elevated to greater than 10 ,000, troponin elevated at 1.01, BNP elevated to 2143. His urine toxicology screen was positive for opiates, amphetamines, cocaine, and marijuana. His INR was elevated at 1.2. His TSH is elevated at 4.72. The T3 is low but the T4 is normal. 6. The patient's history, neurological examination, laboratory data, and imaging studies are most compatible with an altered mental state due to a toxic metabolic encephalopathy. 7. The most likely etiology for the encephalopathy is the sepsis, possibly a period of hypoglycemia and ongoing multiple metabolic imbalances and the toxic imbalances. In addition the use of mind-altering drugs could have also been contributing. 8. His encephalopathy is still waxing and waning and is stable today. 9. He has also developed bilateral mild proximal lower extremity weakness, and in addition right > left distal lower extremity weakness with a severe right peroneal nerve dysfunction and now some right tibial nerve dysfunction. His sensations are also altered in the right peroneal distribution. Recommendations 1. Continue present management. 2. Continue aggressive treatment of the patient's sepsis. 3. Aggressive management of toxic/metabolic imbalances. 4. AFO for right foot drop. 5. PT/OT. 6. Observe closely. Chris Ricketts M.D., M.S.P.CHRIS GARDINER Sep 08, 2017 13:04
[2017-09-08 16:00] VITALS: BP 127/72
--- NOTE | 2017-09-08 16:34 | General Progress Note ---
Assessment/Plan Assessment/Plan Assessment (1) Severe sepsis / leukocytosis - management per ID ICD Codes: A41.9 - Sepsis, unspecified organism; R65.20 - Severe sepsis without septic shock SNOMED: 41638194 (2) Rhabdomyolysis ICD Codes: M62.82 - Rhabdomyolysis SNOMED: 785861653 Qualifiers: Qualified Codes: T79.6XXA - Traumatic ischemia of muscle, initial encounter (3) Aspiration pneumonia ICD Codes: J69.0 - Pneumonitis due to inhalation of food and vomit SNOMED: 365945154 Qualifiers: Qualified Codes: J69.0 - Pneumonitis due to inhalation of food and vomit (4) Substance abuse ICD Codes: F19.10 - Other psychoactive substance abuse, uncomplicated SNOMED: 44248134 (5) Transaminitis ICD Codes: R74.0 - Nonspecific elevation of levels of transaminase and lactic acid dehydrogenase [LDH] SNOMED: 170966027, 650752879 Status: progressing Assessment/Plan Hep A immunity Hep C positive extubated transaminitis >> downtrending regular diet, tolerating fu labs, trend LFTs supportive care dc ppi, add H2B outpatient Hep C tx Subjective Allergies: Coded Allergies: NO KNOWN ALLERGIES (Verified Allergy, Unknown, 09/02/17) Subjective feel "OK" poor appetite d/w mother at bedside Objective Last 24 Hour Vital Signs Date Time Temp Pulse Resp B/P (MAP) Pulse Ox O2 Delivery O2 Flow Rate FiO2 09/08/17 12:00 97.9 80 20 120/68 (85) 95 97.9 09/08/17 10:13 136/70 09/08/17 09:00 Room Air 09/08/17 08:00 98.6 84 20 114/70 (85) 95 98.6 09/08/17 04:29 134/74 09/08/17 04:00 98.0 82 20 134/74 (94) 90 98.0 09/08/17 00:00 19 09/07/17 22:00 127/65 09/07/17 21:00 Room Air 09/07/17 20:00 98.6 83 18 127/65 (85) 96 98.6 09/07/17 19:14 Room Air 3.0 21 09/07/17 17:30 99.2 Intake and Output 09/07/17 09/08/17 19:00 07:00 Intake Total 50 ml 680 ml Output Total 2100 ml Balance 50 ml -1420 ml Intake Oral 120 ml IV Total 50 ml 560 ml Hemodialysis UF 2100 ml # Bowel Movements 2 2 Laboratory Tests 09/08/17 05:25: Total Creatine Kinase 1624H, Random Vancomycin Level 28.4 Height (Feet): 5 Height (Inches): 8.00 Weight (Pounds): 192 Objective WDWN NCAT supple CTA RRR soft no edema Raffi Huang MD Sep 08, 2017 16:34
--- NOTE | 2017-09-08 17:14 | General Progress Note ---
Assessment/Plan Status: stable Assessment/Plan INTERNAL MEDICINE PROGRESS NOTE Covering for Dr. Anaya # Leukocytosis. --> Closely monitor for improvement. --> WBC remains elevated over 2 days --> Cont IV abx # Anemia. --> Currently stable. No w/u required. Hgb above 11 --> Closely monitor. # Transaminitis. Trending downwards. Subjective Date patient seen: Sep 08, 2017 ROS Limited/Unobtainable: Yes Allergies: Coded Allergies: NO KNOWN ALLERGIES (Verified Allergy, Unknown, 09/02/17) All Systems: reviewed and negative except above Subjective Pt awake and alert. No acute events. WBC remains elevated, pt on IV abx. S/P HD. Objective Last 24 Hour Vital Signs Date Time Temp Pulse Resp B/P (MAP) Pulse Ox O2 Delivery O2 Flow Rate FiO2 09/08/17 16:31 127/72 09/08/17 12:00 97.9 80 20 120/68 (85) 95 97.9 09/08/17 10:13 136/70 09/08/17 09:00 Room Air 09/08/17 08:00 98.6 84 20 114/70 (85) 95 98.6 09/08/17 04:29 134/74 09/08/17 04:00 98.0 82 20 134/74 (94) 90 98.0 09/08/17 00:00 19 09/07/17 22:00 127/65 09/07/17 21:00 Room Air 09/07/17 20:00 98.6 83 18 127/65 (85) 96 98.6 09/07/17 19:14 Room Air 3.0 21 09/07/17 17:30 99.2 Intake and Output 09/07/17 09/08/17 19:00 07:00 Intake Total 50 ml 680 ml Output Total 2100 ml Balance 50 ml -1420 ml Intake Oral 120 ml IV Total 50 ml 560 ml Hemodialysis UF 2100 ml # Bowel Movements 2 2 Laboratory Tests 09/08/17 05:25: Total Creatine Kinase 1624H, Random Vancomycin Level 28.4 Height (Feet): 5 Height (Inches): 8.00 Weight (Pounds): 192 General Appearance: no apparent distress EENT: PERRL/EOMI Neck: normal alignment Cardiovascular: normal peripheral pulses Respiratory/Chest: no respiratory distress Abdomen: soft Kleynberg,Diogenes L. MD Sep 08, 2017 17:14
[2017-09-08 20:00] VITALS: BP 138/76
[2017-09-08] MEDS: Dyna-Hex 2% Top Sol 2oz TOPIC SCH (21:42)
--- NOTE | 2017-09-08 23:15 | Cardiology Progress Note ---
Assessment/Plan Assessment/Plan 1. Sinus tachycardia, resolved, continue hydration. 2. LUCRECIA due to rhabdomyolysis. 3. Shock liver 4. Acute pancreatitis with systemic inflammatory response disease. 5. Elevated troponin I level likely myocarditis, sepsis, or due to shock. 6. Sepsis, ? endocarditis, hx if IV drug abuse, will schedule for [facility] for Saturday. Subjective Subjective No cardiac events. Denies chest pain or SOB. Objective Last 24 Hour Vital Signs Date Time Temp Pulse Resp B/P (MAP) Pulse Ox O2 Delivery O2 Flow Rate FiO2 09/08/17 21:45 138/76 09/08/17 21:44 100.6 09/08/17 16:31 127/72 09/08/17 16:00 97.0 77 20 127/72 (90) 95 97.0 09/08/17 12:00 97.9 80 20 120/68 (85) 95 97.9 09/08/17 10:13 136/70 09/08/17 09:00 Room Air 09/08/17 08:00 98.6 84 20 114/70 (85) 95 98.6 09/08/17 04:29 134/74 09/08/17 04:00 98.0 82 20 134/74 (94) 90 98.0 09/08/17 00:00 19 Intake and Output 09/07/17 09/08/17 19:00 07:00 Intake Total 50 ml 680 ml Output Total 2100 ml Balance 50 ml -1420 ml Intake Oral 120 ml IV Total 50 ml 560 ml Hemodialysis UF 2100 ml # Bowel Movements 2 2 2D Echo: LVEF 55-60% Laboratory Tests Test 09/08/17 05:25 Total Creatine Kinase 1624 U/L (26-308) H Random Vancomycin Level 28.4 ug/mL Microbiology Date/Time Source Procedure Growth Status 09/06/17 12:40 Sputum Induced Gram Stain - Final Resulted 09/06/17 12:40 Sputum Induced Sputum Culture Pending Resulted Objective HEENT: Atraumatic and normocephalic. Pupils are equal, round, and reactive to light and accommodation. Scleral injection in both eyes. Dry mucosal membranes. NECK: JVP cannot be assessed. CVS: Normal S1, S2. Cannot appreciate any murmurs, gallops, or rubs. LUNGS: Clear to auscultation bilaterally. ABDOMEN: Soft, nontender, and nondistended. No hepatosplenomegaly. Positive bowel sounds. EXTREMITIES: No evidence of edema, clubbing, or cyanosis. Right lower extremity with decrease in both motor and sensory function. Jorge Mcdonough MD Sep 08, 2017 23:15
[2017-09-09] VITALS: BP 124/70
[2017-09-09] MEDS: D5 IV SCH (00:19)
[2017-09-09] MEDS: [UNRECOGNIZED DRUG - OTHER] IV SCH (00:19)
[2017-09-09] MEDS: SODIUM BICARBONATE IV SCH (00:19)
[2017-09-09 04:00] VITALS: BP 128/79
[2017-09-09] MEDS: cloNIDine 0.2mg Tab ORAL SCH ×4 (04:00→21:40)
[2017-09-09] MEDS: Heparin 1000 units/ml 1ml Vial INJ SCH (06:00)
[2017-09-09] MEDS: Piperacillin/Tazobactam 2.25 GM in D5W 55 ML IVPB SCH ×3 (06:32→21:40)
[2017-09-09 07:11] LABS: HEMATOCRIT 26.2 % (42.0-52.0); MEAN CORPUSCULAR VOLUME 92 FL (80-99); PLATELET COUNT 612 K/UL (150-450); RED BLOOD COUNT 2.84 M/UL (4.70-6.10); RED CELL DISTRIBUTION WIDTH 11.6 % (11.6-14.8)
[2017-09-09 07:18] LABS: WHITE BLOOD COUNT 25.5 K/UL (4.8-10.8)
[2017-09-09 07:55] LABS: ALANINE AMINOTRANSFERASE 111 U/L (12-78); ALBUMIN 1.8 G/DL (3.4-5.0); ALBUMIN/GLOBULIN RATIO 0.5 (1.0-2.7); ALKALINE PHOSPHATASE 115 U/L (46-116); ANION GAP 13 mmol/L (5-15); ASPARTATE AMINO TRANSFERASE 102 U/L (15-37); BILIRUBIN,TOTAL 0.6 MG/DL (0.2-1.0); BLOOD UREA NITROGEN 91 mg/dL (7-18); CARBON DIOXIDE 25 MMOL/L (21-32); CHLORIDE 97 MMOL/L (98-107); CREATININE 13.5 MG/DL (0.55-1.30); POTASSIUM 4.4 MMOL/L (3.5-5.1); SODIUM 135 MMOL/L (136-145)
[2017-09-09 08:00] VITALS: BP 152/75
[2017-09-09] MEDS: Heparin 5000 units/ml inj SUBQ SCH ×2 (09:27→21:41)
--- NOTE | 2017-09-09 10:34 | Infectious Diseases Prog Note ---
Assessment/Plan Assessment/Plan Shock, SP Aspiration PNA -CXR 09/04 : Interim development of hazy interstitial and airspace disease in the right lung. This may to some extent be an artifact of less optimal inspiration, however. Interim extubation -CXR 09/03: Marked improvement of previously demonstrated bilateral pulmonary edema, over one day -CXR:More consolidated areas within the diffuse airspace opacity within the right lung and now possible right pleural effusion. The patient is rotated to the right. Interval increase in patchy left perihilar airspace opacities. May represent component of pulmonary edema or aspiration pneumonitis. -sp cx normal ann; repeat sp cx MSSA -legionella ag urine neg Rule out sepsis -u/a wbc 5-10, nit neg, leuk +1; cx neg -Bcx NTD -2d Echo (limited but no vegetations seen) Fever/leukocytosis- initially suspect reactive and 2ry to PNA; now ongoing, worsening leukocytosis- r/o occult infection, endocarditis (+IVDA, possible myositis on CT), ?2ry to pancreatitis -Cdiff neg -v/duplex no DVT Drug overdose -UDS + opiates, amphetamines, THC, cocaine -+empty heroin needles (found on hotel room) -HIV ab sc and VL neg, RPR/FTA, GC/CL neg Multiorgan failure -LUCRECIA, - on HD -Transaminitis, (shock liver); improving -VDRF (airway protection)- now extubaetd 09/03 Lactic acidosis; resolved Rhabdomyolisis; improving3 Pancreatitis- drug induced -neg alcohol levels Encephalopathy- 2ry to above- r.o ischemia, r/o abscess (fever, IVDA +); much improved -CT head 09/04: Unusual scalp contusion, new since prior study 08/29/2017. No evidence of underlying calvarial trauma. Negative for acute intracranial bleed or mass effect -CT head 08/29: Limited exam due to motion artifact. No gross acute intracranial bleed or mass effect Hep C +; VL pending -ABD US: Gallbladder sludge. Negative for gallstones or dilated ducts. Equivocal increased hepatic echogenicity, if real could indicate hepatocellular disease such as fatty change. Borderline hepatomegaly. Mildly increased renal echogenicity, could indicate medical renal disease. Correlate with renal function tests. Left pleural effusion -Hep A and B immune Plan: -Continue empiric IV Vanco and Zosyn #4 (abx d#10) and add IV Micafungin #2 to cover for fungemia given prolonged abx and central line -09/06 SP IV Ancef #4 -09/04 SP IV Azithromycin #3 -09/03 SP Zosyn #6 -f/u Repeat Bcx x2 -u/a w/ reflex, Spcx -f/u cx -KATELYN to eval for endocarditis given +IVDA -WBC tagged scan to eval for occult infection -Monitor CBC/CMP, temperatures -aspiration precautions -Neuro,c ardio, renal, GI f/u Subjective Allergies: Coded Allergies: NO KNOWN ALLERGIES (Verified Allergy, Unknown, 09/02/17) Subjective Patient reports that he is sore all over. Poor insight No N/V/D or fever per patient. Did have low grade fever overnight. Objective Vital Signs Last 24 Hour Vital Signs Date Time Temp Pulse Resp B/P (MAP) Pulse Ox O2 Delivery O2 Flow Rate FiO2 09/09/17 04:00 99.3 72 20 128/79 (95) 100 99.3 09/09/17 04:00 128/79 09/09/17 00:00 99.1 67 20 124/70 (88) 94 99.1 09/08/17 22:43 99.1 09/08/17 21:45 138/76 09/08/17 21:44 100.6 09/08/17 21:00 Room Air 09/08/17 20:00 100.6 81 20 138/76 (96) 96 100.6 09/08/17 16:31 127/72 09/08/17 16:00 97.0 77 20 127/72 (90) 95 97.0 09/08/17 12:00 97.9 80 20 120/68 (85) 95 97.9 Height (Feet): 5 Height (Inches): 8.00 Weight (Pounds): 216 Objective General: Awake and talking, Poor insight HEENT: NCAT, MMM, EOMI, PERRL Heart: RRR, no murmurs Lungs: CTA x2 ABD: S+D, ND, BS+ Extremity no edema or cellulitis Microbiology Date/Time Source Procedure Growth Status 09/07/17 21:20 Blood Blood Culture - Preliminary NO GROWTH AFTER 24 HOURS Resulted 09/07/17 20:40 Blood Blood Culture - Preliminary NO GROWTH AFTER 24 HOURS Resulted 09/06/17 12:40 Sputum Induced Gram Stain - Final Resulted 09/06/17 12:40 Sputum Induced Sputum Culture - Preliminary NORMAL UPPER RESPIRATORY ANN AT 24 ... Resulted Laboratory Tests Test 09/09/17 06:05 White Blood Count 25.5 K/UL (4.8-10.8) *H Red Blood Count 2.84 M/UL (4.70-6.10) L Hemoglobin 9.0 G/DL (14.2-18.0) L Hematocrit 26.2 % (42.0-52.0) L Mean Corpuscular Volume 92 FL (80-99) Mean Corpuscular Hemoglobin 31.7 PG (27.0-31.0) H Mean Corpuscular Hemoglobin Concent 34.3 G/DL (32.0-36.0) Red Cell Distribution Width 11.6 % (11.6-14.8) Platelet Count 612 K/UL (150-450) H Mean Platelet Volume 5.5 FL (6.5-10.1) L Neutrophils (%) (Auto) % (45.0-75.0) Lymphocytes (%) (Auto) % (20.0-45.0) Monocytes (%) (Auto) % (1.0-10.0) Eosinophils (%) (Auto) % (0.0-3.0) Basophils (%) (Auto) % (0.0-2.0) Differential Total Cells Counted 100 Neutrophils % (Manual) 84 % (45-75) H Lymphocytes % (Manual) 7 % (20-45) L Monocytes % (Manual) 9 % (1-10) Eosinophils % (Manual) 0 % (0-3) Basophils % (Manual) 0 % (0-2) Band Neutrophils 0 % (0-8) Platelet Estimate Increased H Platelet Morphology Normal Sodium Level 135 MMOL/L (136-145) L Potassium Level 4.4 MMOL/L (3.5-5.1) Chloride Level 97 MMOL/L (98-107) L Carbon Dioxide Level 25 MMOL/L (21-32) Anion Gap 13 mmol/L (5-15) Blood Urea Nitrogen 91 mg/dL (7-18) H Creatinine 13.5 MG/DL (0.55-1.30) H Estimat Glomerular Filtration Rate 4.1 mL/min (>60) Glucose Level 117 MG/DL (74-106) H Calcium Level 8.0 MG/DL (8.5-10.1) L Total Bilirubin 0.6 MG/DL (0.2-1.0) Aspartate Amino Transf (AST/SGOT) 102 U/L (15-37) H Alanine Aminotransferase (ALT/SGPT) 111 U/L (12-78) H Alkaline Phosphatase 115 U/L (46-116) Total Protein 5.5 G/DL (6.4-8.2) L Albumin 1.8 G/DL (3.4-5.0) L Globulin 3.7 g/dL Albumin/Globulin Ratio 0.5 (1.0-2.7) L Random Vancomycin Level 26.7 ug/mL Current Medications Medications (Trade) Dose Ordered Sig/Krystyna Route PRN Reason Start Time Stop Time Status Last Admin Dose Admin Acetaminophen (Tylenol) 650 mg Q4H PRN ORAL Fever (temp>100.5F) 09/05/17 18:30 10/05/17 18:29 09/08/17 21:44 Chlorhexidine Gluconate (Jyotsna-Hex 2%) 1 applic DAILY@1999 TOPIC 09/05/17 20:00 09/29/17 19:59 09/08/17 21:42 Clonidine HCl (Catapres tab) 0.2 mg Q6H ORAL 09/05/17 22:00 10/04/17 15:59 09/08/17 21:45 Dextrose (Dextrose 50%) 25 ml STAT PRN IV Hypoglycemia 09/05/17 18:30 10/05/17 18:29 Dextrose (Dextrose 50%) 50 ml STAT PRN IV Hypoglycemia 09/05/17 18:30 10/05/17 18:29 Diazepam (Valium) 10 mg EVERY 4 HOURS PRN ORAL For Anxiety 09/06/17 13:15 09/13/17 13:14 09/07/17 22:00 Famotidine (Pepcid) 20 mg DAILY ORAL 09/07/17 09:00 10/07/17 08:59 09/09/17 09:25 Heparin Sodium (Porcine) (Heparin 5000 units/ml) 5,000 units EVERY 12 HOURS SUBQ 09/05/17 21:00 09/28/17 20:59 09/09/17 09:27 Heparin Sodium (Porcine) (Heparin) 2,000 unit ONCE INJ 09/09/17 06:00 09/10/17 23:59 Methadone HCl (Methadone HCl) 10 mg Q6H PRN ORAL For Pain 1-6 09/05/17 18:00 09/11/17 17:59 09/07/17 16:03 Micafungin Sodium 100 mg/Sodium Chloride 110 ml @ 110 mls/hr Q24H IVPB 09/07/17 13:00 09/14/17 12:59 09/08/17 12:06 Mirtazapine (Remeron) 15 mg BEDTIME ORAL 09/05/17 21:00 10/04/17 20:59 09/08/17 21:44 Mupirocin (Bactroban Oint) 1 applic BID TOPIC 09/08/17 18:00 09/13/17 17:59 09/09/17 09:29 Nitroglycerin (Ntg) 0.4 mg Q5M PRN SL Prn Chest Pain 09/05/17 18:30 09/28/17 14:44 Piperacillin Sod/ Tazobactam Sod 2.25 gm/Dextrose 55 ml @ 110 mls/hr Q8HR IVPB 09/06/17 16:00 09/11/17 15:59 09/09/17 06:32 Sodium Bicarbonate 50 ml/ Dextrose/Sodium Chloride 1,000 ml @ 50 mls/hr Q20H IV 09/05/17 20:00 09/30/17 19:59 09/09/17 00:19 Vancomycin HCl (Vanco rx to dose) 1 ea DAILY PRN MISC Per rx protocol 09/06/17 15:00 10/06/17 14:59 Jean Cervantes M.D. Sep 09, 2017 10:34
--- NOTE | 2017-09-09 10:53 | GI Progress Note ---
Assessment/Plan Problems: (1) Severe sepsis ICD Codes: A41.9 - Sepsis, unspecified organism; R65.20 - Severe sepsis without septic shock SNOMED: 68797003 (2) Rhabdomyolysis ICD Codes: M62.82 - Rhabdomyolysis SNOMED: 872898801 Qualifiers: Qualified Codes: T79.6XXA - Traumatic ischemia of muscle, initial encounter (3) Aspiration pneumonia ICD Codes: J69.0 - Pneumonitis due to inhalation of food and vomit SNOMED: 760056472 Qualifiers: Qualified Codes: J69.0 - Pneumonitis due to inhalation of food and vomit (4) Substance abuse ICD Codes: F19.10 - Other psychoactive substance abuse, uncomplicated SNOMED: 53468297 (5) Transaminitis ICD Codes: R74.0 - Nonspecific elevation of levels of transaminase and lactic acid dehydrogenase [LDH] SNOMED: 216979503, 697584158 Status: progressing Status Narrative Discussed with Dr. Chavez. Assessment/Plan Hep A immunity Hep C positive transaminitis >> downtrending cdiff negative regular diet, tolerating 50% fu labs, lipase, trend LFTs supportive care ppi outpatient Hep C tx The patient was seen and examined at bedside and all new and available data was reviewed in the patients chart. I agree with the above findings, impression and plan. (Patient seen earlier today. Signature stamp does not reflect patient encounter time.). - Efrain Chavez MD Subjective Subjective generalized weakness hip pain Objective Last 24 Hour Vital Signs Date Time Temp Pulse Resp B/P (MAP) Pulse Ox O2 Delivery O2 Flow Rate FiO2 09/09/17 04:00 99.3 72 20 128/79 (95) 100 99.3 09/09/17 04:00 128/79 09/09/17 00:00 99.1 67 20 124/70 (88) 94 99.1 09/08/17 22:43 99.1 09/08/17 21:45 138/76 09/08/17 21:44 100.6 09/08/17 21:00 Room Air 09/08/17 20:00 100.6 81 20 138/76 (96) 96 100.6 09/08/17 16:31 127/72 09/08/17 16:00 97.0 77 20 127/72 (90) 95 97.0 09/08/17 12:00 97.9 80 20 120/68 (85) 95 97.9 Intake and Output 09/08/17 09/09/17 19:00 07:00 Intake Total 290 ml 740 ml Balance 290 ml 740 ml Intake Oral 240 ml 150 ml IV Total 50 ml 590 ml # Voids 3 # Bowel Movements 4 Laboratory Tests Test 09/09/17 06:05 White Blood Count 25.5 K/UL (4.8-10.8) *H Red Blood Count 2.84 M/UL (4.70-6.10) L Hemoglobin 9.0 G/DL (14.2-18.0) L Hematocrit 26.2 % (42.0-52.0) L Mean Corpuscular Volume 92 FL (80-99) Mean Corpuscular Hemoglobin 31.7 PG (27.0-31.0) H Mean Corpuscular Hemoglobin Concent 34.3 G/DL (32.0-36.0) Red Cell Distribution Width 11.6 % (11.6-14.8) Platelet Count 612 K/UL (150-450) H Mean Platelet Volume 5.5 FL (6.5-10.1) L Neutrophils (%) (Auto) % (45.0-75.0) Lymphocytes (%) (Auto) % (20.0-45.0) Monocytes (%) (Auto) % (1.0-10.0) Eosinophils (%) (Auto) % (0.0-3.0) Basophils (%) (Auto) % (0.0-2.0) Differential Total Cells Counted 100 Neutrophils % (Manual) 84 % (45-75) H Lymphocytes % (Manual) 7 % (20-45) L Monocytes % (Manual) 9 % (1-10) Eosinophils % (Manual) 0 % (0-3) Basophils % (Manual) 0 % (0-2) Band Neutrophils 0 % (0-8) Platelet Estimate Increased H Platelet Morphology Normal Sodium Level 135 MMOL/L (136-145) L Potassium Level 4.4 MMOL/L (3.5-5.1) Chloride Level 97 MMOL/L (98-107) L Carbon Dioxide Level 25 MMOL/L (21-32) Anion Gap 13 mmol/L (5-15) Blood Urea Nitrogen 91 mg/dL (7-18) H Creatinine 13.5 MG/DL (0.55-1.30) H Estimat Glomerular Filtration Rate 4.1 mL/min (>60) Glucose Level 117 MG/DL (74-106) H Calcium Level 8.0 MG/DL (8.5-10.1) L Total Bilirubin 0.6 MG/DL (0.2-1.0) Aspartate Amino Transf (AST/SGOT) 102 U/L (15-37) H Alanine Aminotransferase (ALT/SGPT) 111 U/L (12-78) H Alkaline Phosphatase 115 U/L (46-116) Total Protein 5.5 G/DL (6.4-8.2) L Albumin 1.8 G/DL (3.4-5.0) L Globulin 3.7 g/dL Albumin/Globulin Ratio 0.5 (1.0-2.7) L Random Vancomycin Level 26.7 ug/mL Height (Feet): 5 Height (Inches): 8.00 Weight (Pounds): 216 General Appearance: WD/WN, no apparent distress, alert Cardiovascular: normal rate Respiratory/Chest: normal breath sounds, no respiratory distress Abdominal Exam: normal bowel sounds, non tender, soft Extremities: normal range of motion, non-tender Carlos Lopez NP Sep 09, 2017 10:53
[2017-09-09 12:00] VITALS: BP 134/79
[2017-09-09] MEDS: Micafungin 100 MG in NS 110 ML IVPB SCH (12:22)
--- NOTE | 2017-09-09 14:16 | General Progress Note ---
Assessment/Plan Status: unchanged Assessment/Plan INTERNAL MEDICINE PROGRESS NOTE Covering for Dr. Anaya # Leukocytosis. --> Closely monitor for improvement. --> WBC remains elevated over 2 days --> Cont IV abx --> 09/09 mild fever. # Anemia. --> Currently stable. No w/u required. Hgb above 11 --> Closely monitor. # Transaminitis. Trending downwards. Subjective Date patient seen: Sep 09, 2017 ROS Limited/Unobtainable: Yes Allergies: Coded Allergies: NO KNOWN ALLERGIES (Verified Allergy, Unknown, 09/02/17) All Systems: reviewed and negative except above Subjective Pt awake and alert. No acute events. WBC remains elevated, pt on IV abx. KATELYN scheduled for tomorrow. Objective Last 24 Hour Vital Signs Date Time Temp Pulse Resp B/P (MAP) Pulse Ox O2 Delivery O2 Flow Rate FiO2 09/09/17 12:22 134/79 09/09/17 12:00 98.5 72 18 134/79 (97) 98 98.5 09/09/17 09:00 Room Air 09/09/17 08:00 100.0 82 19 152/75 (100) 94 100.0 09/09/17 04:00 99.3 72 20 128/79 (95) 100 99.3 09/09/17 04:00 128/79 09/09/17 00:00 99.1 67 20 124/70 (88) 94 99.1 09/08/17 22:43 99.1 09/08/17 21:45 138/76 09/08/17 21:44 100.6 09/08/17 21:00 Room Air 09/08/17 20:00 100.6 81 20 138/76 (96) 96 100.6 09/08/17 16:31 127/72 09/08/17 16:00 97.0 77 20 127/72 (90) 95 97.0 Intake and Output 09/08/17 09/09/17 19:00 07:00 Intake Total 290 ml 740 ml Balance 290 ml 740 ml Intake Oral 240 ml 150 ml IV Total 50 ml 590 ml # Voids 3 # Bowel Movements 4 Laboratory Tests 09/09/17 06:05: White Blood Count 25.5*H, Red Blood Count 2.84L, Hemoglobin 9.0L, Hematocrit 26.2L, Mean Corpuscular Volume 92, Mean Corpuscular Hemoglobin 31.7H, Mean Corpuscular Hemoglobin Concent 34.3, Red Cell Distribution Width 11.6, Platelet Count 612H, Mean Platelet Volume 5.5L, Neutrophils (%) (Auto) , Lymphocytes (%) (Auto) , Monocytes (%) (Auto) , Eosinophils (%) (Auto) , Basophils (%) (Auto) , Differential Total Cells Counted 100, Neutrophils % (Manual) 84H, Lymphocytes % (Manual) 7L, Monocytes % (Manual) 9, Eosinophils % (Manual) 0, Basophils % ( Manual) 0, Band Neutrophils 0, Platelet Estimate IncreasedH, Platelet Morphology Normal, Sodium Level 135L, Potassium Level 4.4, Chloride Level 97L, Carbon Dioxide Level 25, Anion Gap 13, Blood Urea Nitrogen 91H, Creatinine 13.5H , Estimat Glomerular Filtration Rate 4.1, Glucose Level 117H, Calcium Level 8.0L , Total Bilirubin 0.6, Aspartate Amino Transf (AST/SGOT) 102H, Alanine Aminotransferase (ALT/SGPT) 111H, Alkaline Phosphatase 115, Total Protein 5.5L, Albumin 1.8L, Globulin 3.7, Albumin/Globulin Ratio 0.5L, Random Vancomycin Level 26.7 Height (Feet): 5 Height (Inches): 8.00 Weight (Pounds): 216 General Appearance: no apparent distress, alert EENT: PERRL/EOMI Neck: normal alignment Cardiovascular: normal peripheral pulses Respiratory/Chest: no respiratory distress Abdomen: soft Diogenes Flores MD Sep 09, 2017 14:16
--- NOTE | 2017-09-09 14:51 | Pulmonology Progress Note ---
Assessment/Plan Problems: (1) Respiratory failure Assessment & Plan: improved (2) LUCRECIA (acute kidney injury) (3) Severe sepsis (4) Overdose Assessment/Plan stewart culture again, WBC increasing continue abx antifungal were added Subjective ROS Limited/Unobtainable: Yes Interval Events: d/w mother at the bed site Allergies: Coded Allergies: NO KNOWN ALLERGIES (Verified Allergy, Unknown, 09/02/17) Objective Last 24 Hour Vital Signs Date Time Temp Pulse Resp B/P (MAP) Pulse Ox O2 Delivery O2 Flow Rate FiO2 09/09/17 12:22 134/79 09/09/17 12:00 98.5 72 18 134/79 (97) 98 98.5 09/09/17 09:00 Room Air 09/09/17 08:00 100.0 82 19 152/75 (100) 94 100.0 09/09/17 04:00 99.3 72 20 128/79 (95) 100 99.3 09/09/17 04:00 128/79 09/09/17 00:00 99.1 67 20 124/70 (88) 94 99.1 09/08/17 22:43 99.1 09/08/17 21:45 138/76 09/08/17 21:44 100.6 09/08/17 21:00 Room Air 09/08/17 20:00 100.6 81 20 138/76 (96) 96 100.6 09/08/17 16:31 127/72 09/08/17 16:00 97.0 77 20 127/72 (90) 95 97.0 Intake and Output 09/08/17 09/09/17 19:00 07:00 Intake Total 290 ml 740 ml Balance 290 ml 740 ml Intake Oral 240 ml 150 ml IV Total 50 ml 590 ml # Voids 3 # Bowel Movements 4 General Appearance: WD/WN HEENT: normocephalic, atraumatic Respiratory/Chest: chest wall non-tender, lungs clear Cardiovascular: normal peripheral pulses, normal rate Abdomen: normal bowel sounds, soft, non tender Genitourinary: normal external genitalia Skin: no rash 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 Lymphatic: no neck adenopathy Microbiology Date/Time Source Procedure Growth Status 09/07/17 21:20 Blood Blood Culture - Preliminary NO GROWTH AFTER 24 HOURS Resulted 09/07/17 20:40 Blood Blood Culture - Preliminary NO GROWTH AFTER 24 HOURS Resulted 09/07/17 18:00 Stool Stool Culture - Preliminary Resulted 09/08/17 17:20 Head Gram Stain - Final Resulted 09/08/17 17:20 Head Wound Culture - Preliminary Resulted Laboratory Tests 09/09/17 06:05: White Blood Count 25.5*H, Red Blood Count 2.84L, Hemoglobin 9.0L, Hematocrit 26.2L, Mean Corpuscular Volume 92, Mean Corpuscular Hemoglobin 31.7H, Mean Corpuscular Hemoglobin Concent 34.3, Red Cell Distribution Width 11.6, Platelet Count 612H, Mean Platelet Volume 5.5L, Neutrophils (%) (Auto) , Lymphocytes (%) (Auto) , Monocytes (%) (Auto) , Eosinophils (%) (Auto) , Basophils (%) (Auto) , Differential Total Cells Counted 100, Neutrophils % (Manual) 84H, Lymphocytes % (Manual) 7L, Monocytes % (Manual) 9, Eosinophils % (Manual) 0, Basophils % ( Manual) 0, Band Neutrophils 0, Platelet Estimate IncreasedH, Platelet Morphology Normal, Sodium Level 135L, Potassium Level 4.4, Chloride Level 97L, Carbon Dioxide Level 25, Anion Gap 13, Blood Urea Nitrogen 91H, Creatinine 13.5H , Estimat Glomerular Filtration Rate 4.1, Glucose Level 117H, Calcium Level 8.0L , Total Bilirubin 0.6, Aspartate Amino Transf (AST/SGOT) 102H, Alanine Aminotransferase (ALT/SGPT) 111H, Alkaline Phosphatase 115, Total Protein 5.5L, Albumin 1.8L, Globulin 3.7, Albumin/Globulin Ratio 0.5L, Random Vancomycin Level 26.7 Current Medications Medications (Trade) Dose Ordered Sig/Krystyna Route PRN Reason Start Time Stop Time Status Last Admin Dose Admin Acetaminophen (Tylenol) 650 mg Q4H PRN ORAL Fever (temp>100.5F) 09/05/17 18:30 10/05/17 18:29 09/08/17 21:44 Chlorhexidine Gluconate (Jyotsna-Hex 2%) 1 applic DAILY@1999 TOPIC 09/05/17 20:00 09/29/17 19:59 09/08/17 21:42 Clonidine HCl (Catapres tab) 0.2 mg Q6H ORAL 09/05/17 22:00 10/04/17 15:59 09/09/17 12:22 Dextrose (Dextrose 50%) 25 ml STAT PRN IV Hypoglycemia 09/05/17 18:30 10/05/17 18:29 Dextrose (Dextrose 50%) 50 ml STAT PRN IV Hypoglycemia 09/05/17 18:30 10/05/17 18:29 Diazepam (Valium) 10 mg EVERY 4 HOURS PRN ORAL For Anxiety 09/06/17 13:15 09/13/17 13:14 09/07/17 22:00 Famotidine (Pepcid) 20 mg DAILY ORAL 09/07/17 09:00 10/07/17 08:59 09/09/17 09:25 Heparin Sodium (Porcine) (Heparin 5000 units/ml) 5,000 units EVERY 12 HOURS SUBQ 09/05/17 21:00 09/28/17 20:59 09/09/17 09:27 Heparin Sodium (Porcine) (Heparin) 2,000 unit ONCE INJ 09/09/17 06:00 09/10/17 23:59 Methadone HCl (Methadone HCl) 10 mg Q6H PRN ORAL For Pain 1-6 09/05/17 18:00 09/11/17 17:59 09/09/17 12:59 Micafungin Sodium 100 mg/Sodium Chloride 110 ml @ 110 mls/hr Q24H IVPB 09/07/17 13:00 09/14/17 12:59 09/09/17 12:22 Mirtazapine (Remeron) 15 mg BEDTIME ORAL 09/05/17 21:00 10/04/17 20:59 09/08/17 21:44 Mupirocin (Bactroban Oint) 1 applic BID TOPIC 09/08/17 18:00 09/13/17 17:59 09/09/17 09:29 Nitroglycerin (Ntg) 0.4 mg Q5M PRN SL Prn Chest Pain 09/05/17 18:30 09/28/17 14:44 Piperacillin Sod/ Tazobactam Sod 2.25 gm/Dextrose 55 ml @ 110 mls/hr Q8HR IVPB 09/06/17 16:00 09/11/17 15:59 09/09/17 14:06 Sodium Bicarbonate 50 ml/ Dextrose/Sodium Chloride 1,000 ml @ 50 mls/hr Q20H IV 09/05/17 20:00 09/30/17 19:59 09/09/17 00:19 Vancomycin HCl (Vanco rx to dose) 1 ea DAILY PRN MISC Per rx protocol 09/06/17 15:00 10/06/17 14:59 Arpita Andre MD Sep 09, 2017 14:51
--- NOTE | 2017-09-09 15:06 | Nephrology Progress Note ---
Assessment/Plan Assessment 1. Acute rhabdomyolysis.(anuric ) 2. Hypocalcemia. 3. Hyperkalemia. 4. Lactic acidosis. 5. Shock liver. 6. History of multiple drug use. Plan continue bicarbonate drip dialysis dialysis monitoring renal function monitoring out put spoke to his sister and father regarding need for hemodialysis and cath placement they agreed on that Subjective Constitutional: Reports: no symptoms HEENT: Reports: no symptoms Genitourinary: Reports: no symptoms Neurologic/Psychiatric: Reports: no symptoms Subjective continue to have very low urine out put alert and awake Objective Objective Last 24 Hour Vital Signs Date Time Temp Pulse Resp B/P (MAP) Pulse Ox O2 Delivery O2 Flow Rate FiO2 09/09/17 12:22 134/79 09/09/17 12:00 98.5 72 18 134/79 (97) 98 98.5 09/09/17 09:00 Room Air 09/09/17 08:00 100.0 82 19 152/75 (100) 94 100.0 09/09/17 04:00 99.3 72 20 128/79 (95) 100 99.3 09/09/17 04:00 128/79 09/09/17 00:00 99.1 67 20 124/70 (88) 94 99.1 09/08/17 22:43 99.1 09/08/17 21:45 138/76 09/08/17 21:44 100.6 09/08/17 21:00 Room Air 09/08/17 20:00 100.6 81 20 138/76 (96) 96 100.6 09/08/17 16:31 127/72 09/08/17 16:00 97.0 77 20 127/72 (90) 95 97.0 Intake and Output 09/08/17 09/09/17 19:00 07:00 Intake Total 290 ml 740 ml Balance 290 ml 740 ml Intake Oral 240 ml 150 ml IV Total 50 ml 590 ml # Voids 3 # Bowel Movements 4 Laboratory Tests 09/09/17 06:05: White Blood Count 25.5*H, Red Blood Count 2.84L, Hemoglobin 9.0L, Hematocrit 26.2L, Mean Corpuscular Volume 92, Mean Corpuscular Hemoglobin 31.7H, Mean Corpuscular Hemoglobin Concent 34.3, Red Cell Distribution Width 11.6, Platelet Count 612H, Mean Platelet Volume 5.5L, Neutrophils (%) (Auto) , Lymphocytes (%) (Auto) , Monocytes (%) (Auto) , Eosinophils (%) (Auto) , Basophils (%) (Auto) , Differential Total Cells Counted 100, Neutrophils % (Manual) 84H, Lymphocytes % (Manual) 7L, Monocytes % (Manual) 9, Eosinophils % (Manual) 0, Basophils % ( Manual) 0, Band Neutrophils 0, Platelet Estimate IncreasedH, Platelet Morphology Normal, Sodium Level 135L, Potassium Level 4.4, Chloride Level 97L, Carbon Dioxide Level 25, Anion Gap 13, Blood Urea Nitrogen 91H, Creatinine 13.5H , Estimat Glomerular Filtration Rate 4.1, Glucose Level 117H, Calcium Level 8.0L , Total Bilirubin 0.6, Aspartate Amino Transf (AST/SGOT) 102H, Alanine Aminotransferase (ALT/SGPT) 111H, Alkaline Phosphatase 115, Total Protein 5.5L, Albumin 1.8L, Globulin 3.7, Albumin/Globulin Ratio 0.5L, Random Vancomycin Level 26.7 Height (Feet): 5 Height (Inches): 8.00 Weight (Pounds): 216 Objective HEAD AND NECK: No JVP. No LAD. G-tube is in place. Head is atraumatic and normocephalic. LUNGS: He has decreased breathing sounds on the both sides. CARDIAC: Regular rate and rhythm. S1 and S2. No murmur. No rub. ABDOMEN: Soft. Bowel sounds positive. EXTREMITIES: No edema. No clubbing. No cyanosis. Aixa Veloz MD Sep 09, 2017 15:06
[2017-09-09 16:00] VITALS: BP 145/77
--- NOTE | 2017-09-09 19:48 | Cardiology Report ---
APPROVED REPORT EKG Measurement Heart [id number] Normal sinus rhythm Nonspecific T wave abnormality Abnormal ECG
[2017-09-09 20:00] VITALS: BP 127/79
[2017-09-09] MEDS: Dyna-Hex 2% Top Sol 2oz TOPIC SCH (20:00)
--- NOTE | 2017-09-09 21:36 | Neurology Progress Note ---
Interim History Interim History Interim History Mr. Stover feels relatively well. He was sleeping when I went to see him but he could be aroused. He feels that his mind is clearing up. He however is still forgetful. He got out of bed and took a few steps with the PT today. He is behaving better. His appetite is better and he is eating more. He is still generally weak. He denies any new neurologic symptoms. He specifically denies any weakness on one side or the other, numbness on one side or the other, problems with speech, problems with language, or problems with vision. Review of Systems Neuro Review of Systems Benign. Objective Physical Exam Last Vital Signs Date Time Temp Pulse Resp B/P (MAP) Pulse Ox O2 Delivery O2 Flow Rate FiO2 09/09/17 20:00 97.6 71 20 127/79 (95) 88 97.6 09/09/17 09:00 Room Air 09/07/17 19:14 3.0 21 Laboratory Tests Test 09/09/17 06:05 White Blood Count 25.5 K/UL (4.8-10.8) *H Red Blood Count 2.84 M/UL (4.70-6.10) L Hemoglobin 9.0 G/DL (14.2-18.0) L Hematocrit 26.2 % (42.0-52.0) L Mean Corpuscular Volume 92 FL (80-99) Mean Corpuscular Hemoglobin 31.7 PG (27.0-31.0) H Mean Corpuscular Hemoglobin Concent 34.3 G/DL (32.0-36.0) Red Cell Distribution Width 11.6 % (11.6-14.8) Platelet Count 612 K/UL (150-450) H Mean Platelet Volume 5.5 FL (6.5-10.1) L Neutrophils (%) (Auto) % (45.0-75.0) Lymphocytes (%) (Auto) % (20.0-45.0) Monocytes (%) (Auto) % (1.0-10.0) Eosinophils (%) (Auto) % (0.0-3.0) Basophils (%) (Auto) % (0.0-2.0) Differential Total Cells Counted 100 Neutrophils % (Manual) 84 % (45-75) H Lymphocytes % (Manual) 7 % (20-45) L Monocytes % (Manual) 9 % (1-10) Eosinophils % (Manual) 0 % (0-3) Basophils % (Manual) 0 % (0-2) Band Neutrophils 0 % (0-8) Platelet Estimate Increased H Platelet Morphology Normal Sodium Level 135 MMOL/L (136-145) L Potassium Level 4.4 MMOL/L (3.5-5.1) Chloride Level 97 MMOL/L (98-107) L Carbon Dioxide Level 25 MMOL/L (21-32) Anion Gap 13 mmol/L (5-15) Blood Urea Nitrogen 91 mg/dL (7-18) H Creatinine 13.5 MG/DL (0.55-1.30) H Estimat Glomerular Filtration Rate 4.1 mL/min (>60) Glucose Level 117 MG/DL (74-106) H Calcium Level 8.0 MG/DL (8.5-10.1) L Total Bilirubin 0.6 MG/DL (0.2-1.0) Aspartate Amino Transf (AST/SGOT) 102 U/L (15-37) H Alanine Aminotransferase (ALT/SGPT) 111 U/L (12-78) H Alkaline Phosphatase 115 U/L (46-116) Total Protein 5.5 G/DL (6.4-8.2) L Albumin 1.8 G/DL (3.4-5.0) L Globulin 3.7 g/dL Albumin/Globulin Ratio 0.5 (1.0-2.7) L Random Vancomycin Level 26.7 ug/mL Neurologic Exam Objective PHYSICAL EXAMINATION: GENERAL: He is a well-developed, well-nourished, gentleman, lying in bed. HEAD: Normocephalic and atraumatic. EENT: Examination benign. NECK: No neck rigidity was observed. NEUROLOGIC EXAMINATION: MENTAL STATUS EXAMINATION: He was drowsy but could be aroused, When aroused he was awake and alert. He was oriented to self, hospital and August 2017 only. He was able to recall 3/3 words immediately, but could only remember 2/3 in 1 and 3 minutes. He was unable to remember any [place] presidents. SPEECH: He had no dysarthria. LANGUAGE: He had no aphasia. CRANIAL NERVE EXAMINATION: II: The visual dinh were intact on confrontation testing. III, IV & : The external ocular movements were present. The pupils were 3 mm in diameter and reactive sluggishly to light. V: He had normal facial sensations and the temporales, masseters and pterygoids functioned well. VII: He had normal facial expressions and no facial asymmetry. VIII: He was able to hear well and had no nystagmus. IX: The palate moved symmetrically on phonation. X: He had no hoarseness of voice. XI: The sternocleidomastoids and trapezii functioned well. XII: The tongue was in the midline. MOTOR SYSTEM: The tone was normal in all four extremities. Examination of muscle mass revealed no focal wasting. Examination of power revealed G 5/5 power in all muscle groups except for G 0/5 in the right ankle dorsiflexors and toe extensors, G 3+/5 in the right ankle plantar flexors and toe flexors, G 5-/5 in the left ankle dorsiflexors and toe extensors, and G 4/5 in the iliopsoas muscle bilaterally. SENSORY EXAMINATION: He was able to discern pin prick and light ouch but complained of altered sensations in the right peroneal distribution. REFLEXES: Trace+ and bilaterally symmetrical at the biceps, triceps, brachioradialis, and knees, 0 at both ankles. The plantar responses were flexor bilaterally. COORDINATION: He performed well on finger to nose testing. STANCE & GAIT: Could not be tested. Impression/Recommendations Status: unchanged Diagnostic Impression 1. Mr. Enoch Stover is a 37-year-old, gentleman, of unknown handedness, who was found unconscious in a hotel room on 08/29/2017 after he had used multiple drugs. He was found to be possibly febrile, hypoglycemic, and breathing rapidly. Since then, he has been hospitalized and treated for sepsis. 2. He feels relatively well. He was sleeping when I went to see him but he could be aroused. He feels that his mind is clearing up. He however is still forgetful. He got out of bed and took a few steps with the PT today. He is behaving better. His appetite is better and he is eating more. He is still generally weak. He denies any new neurologic symptoms. 3. On neurological examination, at this time, he is drowsy but can be aroused. When aroused he is awake but not completely alert. He is disoriented to the exact date and name of the hospital. He does have problems with recent and remote memory. His speech and language are normal. His cranial nerves are also functioning normally. His motor function is relatively good he however has mild proximal lower extremity weakness, and in addition right > left distal lower extremity weakness with a severe right peroneal nerve dysfunction and now some right tibial nerve dysfunction. His sensations are also altered in the right peroneal distribution. His deep tendon reflexes are diminished but his plantar responses are flexor. He also does not demonstrate any definite focal or lateralizing neurological findings. 4. The CT scan of the brain performed on 08/29/2017 and repeated on 09/04/17 is benign for acute pathology. 5. Laboratory data obtained thus far revealed, on admission, his hemoglobin was elevated to 18.4, his WBC was normal at 8,500, but since then his WBCs have peaked to 17,200. His chemistry panel on admission revealed BUN elevated to 31 , creatinine elevated to 3.6, lactic acid elevated to 5.5, bilirubin elevated at 1.2, AST elevated at 478, ALT elevated to 159, CK elevated to greater than 10 ,000, troponin elevated at 1.01, BNP elevated to 2143. His urine toxicology screen was positive for opiates, amphetamines, cocaine, and marijuana. His INR was elevated at 1.2. His TSH is elevated at 4.72. The T3 is low but the T4 is normal. 6. The patient's history, neurological examination, laboratory data, and imaging studies are most compatible with an altered mental state due to a toxic metabolic encephalopathy. 7. The most likely etiology for the encephalopathy is the sepsis, possibly a period of hypoglycemia and ongoing multiple metabolic imbalances and the toxic imbalances. In addition the use of mind-altering drugs could have also been contributing. 8. His encephalopathy is still waxing and waning and is stable today. 9. He has also developed bilateral mild proximal lower extremity weakness, and in addition right > left distal lower extremity weakness with a severe right peroneal nerve dysfunction and now some right tibial nerve dysfunction. His sensations are also altered in the right peroneal distribution. Recommendations 1. Continue present management. 2. Continue aggressive treatment of the patient's sepsis. 3. Aggressive management of toxic/metabolic imbalances. 4. AFO for right foot drop. 5. PT/OT. 6. Observe closely. Chris Ricketts M.D., M.S.P.H. CHRIS RICKETTS Sep 09, 2017 21:36
--- NOTE | 2017-09-09 23:00 | Cardiology Progress Note ---
Assessment/Plan Assessment/Plan 1. Sinus tachycardia, resolved, continue hydration. 2. LUCRECIA due to rhabdomyolysis. 3. Shock liver 4. Acute pancreatitis with systemic inflammatory response disease. 5. Elevated troponin I level likely myocarditis, sepsis, or due to shock. 6. Sepsis, ? endocarditis, hx if IV drug abuse, will schedule for KATELYN for Saturday. NPO from midnight. Subjective Subjective No cardiac events. Denies chest pain or SOB. Confused. Objective Last 24 Hour Vital Signs Date Time Temp Pulse Resp B/P (MAP) Pulse Ox O2 Delivery O2 Flow Rate FiO2 09/09/17 21:40 127/79 09/09/17 20:00 97.6 71 20 127/79 (95) 88 97.6 09/09/17 17:12 145/77 09/09/17 16:00 98.2 69 20 145/77 (99) 98 98.2 09/09/17 12:22 134/79 09/09/17 12:00 98.5 72 18 134/79 (97) 98 98.5 09/09/17 09:00 Room Air 09/09/17 08:00 100.0 82 19 152/75 (100) 94 100.0 09/09/17 04:00 99.3 72 20 128/79 (95) 100 99.3 09/09/17 04:00 128/79 09/09/17 00:00 99.1 67 20 124/70 (88) 94 99.1 Intake and Output 09/08/17 09/09/17 19:00 07:00 Intake Total 290 ml 740 ml Balance 290 ml 740 ml Intake Oral 240 ml 150 ml IV Total 50 ml 590 ml # Voids 3 # Bowel Movements 4 2D Echo: LVEF 55-60% Laboratory Tests Test 09/09/17 06:05 White Blood Count 25.5 K/UL (4.8-10.8) *H Red Blood Count 2.84 M/UL (4.70-6.10) L Hemoglobin 9.0 G/DL (14.2-18.0) L Hematocrit 26.2 % (42.0-52.0) L Mean Corpuscular Volume 92 FL (80-99) Mean Corpuscular Hemoglobin 31.7 PG (27.0-31.0) H Mean Corpuscular Hemoglobin Concent 34.3 G/DL (32.0-36.0) Red Cell Distribution Width 11.6 % (11.6-14.8) Platelet Count 612 K/UL (150-450) H Mean Platelet Volume 5.5 FL (6.5-10.1) L Neutrophils (%) (Auto) % (45.0-75.0) Lymphocytes (%) (Auto) % (20.0-45.0) Monocytes (%) (Auto) % (1.0-10.0) Eosinophils (%) (Auto) % (0.0-3.0) Basophils (%) (Auto) % (0.0-2.0) Differential Total Cells Counted 100 Neutrophils % (Manual) 84 % (45-75) H Lymphocytes % (Manual) 7 % (20-45) L Monocytes % (Manual) 9 % (1-10) Eosinophils % (Manual) 0 % (0-3) Basophils % (Manual) 0 % (0-2) Band Neutrophils 0 % (0-8) Platelet Estimate Increased H Platelet Morphology Normal Sodium Level 135 MMOL/L (136-145) L Potassium Level 4.4 MMOL/L (3.5-5.1) Chloride Level 97 MMOL/L (98-107) L Carbon Dioxide Level 25 MMOL/L (21-32) Anion Gap 13 mmol/L (5-15) Blood Urea Nitrogen 91 mg/dL (7-18) H Creatinine 13.5 MG/DL (0.55-1.30) H Estimat Glomerular Filtration Rate 4.1 mL/min (>60) Glucose Level 117 MG/DL (74-106) H Calcium Level 8.0 MG/DL (8.5-10.1) L Total Bilirubin 0.6 MG/DL (0.2-1.0) Aspartate Amino Transf (AST/SGOT) 102 U/L (15-37) H Alanine Aminotransferase (ALT/SGPT) 111 U/L (12-78) H Alkaline Phosphatase 115 U/L (46-116) Total Protein 5.5 G/DL (6.4-8.2) L Albumin 1.8 G/DL (3.4-5.0) L Globulin 3.7 g/dL Albumin/Globulin Ratio 0.5 (1.0-2.7) L Random Vancomycin Level 26.7 ug/mL Microbiology Date/Time Source Procedure Growth Status 09/07/17 21:20 Blood Blood Culture - Preliminary NO GROWTH AFTER 24 HOURS Resulted 09/07/17 20:40 Blood Blood Culture - Preliminary NO GROWTH AFTER 24 HOURS Resulted 09/07/17 18:00 Stool Stool Culture - Preliminary Resulted 09/08/17 17:20 Head Gram Stain - Final Resulted 09/08/17 17:20 Head Wound Culture - Preliminary Resulted Objective HEENT: Atraumatic and normocephalic. Pupils are equal, round, and reactive to light and accommodation. Scleral injection in both eyes. Dry mucosal membranes. NECK: JVP cannot be assessed. CVS: Normal S1, S2. Cannot appreciate any murmurs, gallops, or rubs. LUNGS: Clear to auscultation bilaterally. ABDOMEN: Soft, nontender, and nondistended. No hepatosplenomegaly. Positive bowel sounds. EXTREMITIES: No evidence of edema, clubbing, or cyanosis. Right lower extremity with decrease in both motor and sensory function. Jorge Mcdonough MD Sep 09, 2017 23:00
--- NOTE | 2017-09-09 23:30 | General Progress Note ---
Assessment/Plan Assessment/Plan mdd polysubstance dependence opioid and benzo withdrawal -cont methadone increased the dose -cont clonidine/ decrease the dose -cont valuim prn -cont remeron -psych when medically cleared Subjective Neurologic/Psychiatric: Reports: anxiety, depressed, emotional problems Allergies: Coded Allergies: NO KNOWN ALLERGIES (Verified Allergy, Unknown, 09/02/17) Subjective the pt is more stable. Objective Last 24 Hour Vital Signs Date Time Temp Pulse Resp B/P (MAP) Pulse Ox O2 Delivery O2 Flow Rate FiO2 09/09/17 21:40 127/79 09/09/17 20:00 97.6 71 20 127/79 (95) 88 97.6 09/09/17 17:12 145/77 09/09/17 16:00 98.2 69 20 145/77 (99) 98 98.2 09/09/17 12:22 134/79 09/09/17 12:00 98.5 72 18 134/79 (97) 98 98.5 09/09/17 09:00 Room Air 09/09/17 08:00 100.0 82 19 152/75 (100) 94 100.0 09/09/17 04:00 99.3 72 20 128/79 (95) 100 99.3 09/09/17 04:00 128/79 09/09/17 00:00 99.1 67 20 124/70 (88) 94 99.1 Intake and Output 09/08/17 09/09/17 19:00 07:00 Intake Total 290 ml 740 ml Balance 290 ml 740 ml Intake Oral 240 ml 150 ml IV Total 50 ml 590 ml # Voids 3 # Bowel Movements 4 Laboratory Tests 09/09/17 06:05: White Blood Count 25.5*H, Red Blood Count 2.84L, Hemoglobin 9.0L, Hematocrit 26.2L, Mean Corpuscular Volume 92, Mean Corpuscular Hemoglobin 31.7H, Mean Corpuscular Hemoglobin Concent 34.3, Red Cell Distribution Width 11.6, Platelet Count 612H, Mean Platelet Volume 5.5L, Neutrophils (%) (Auto) , Lymphocytes (%) (Auto) , Monocytes (%) (Auto) , Eosinophils (%) (Auto) , Basophils (%) (Auto) , Differential Total Cells Counted 100, Neutrophils % (Manual) 84H, Lymphocytes % (Manual) 7L, Monocytes % (Manual) 9, Eosinophils % (Manual) 0, Basophils % ( Manual) 0, Band Neutrophils 0, Platelet Estimate IncreasedH, Platelet Morphology Normal, Sodium Level 135L, Potassium Level 4.4, Chloride Level 97L, Carbon Dioxide Level 25, Anion Gap 13, Blood Urea Nitrogen 91H, Creatinine 13.5H , Estimat Glomerular Filtration Rate 4.1, Glucose Level 117H, Calcium Level 8.0L , Total Bilirubin 0.6, Aspartate Amino Transf (AST/SGOT) 102H, Alanine Aminotransferase (ALT/SGPT) 111H, Alkaline Phosphatase 115, Total Protein 5.5L, Albumin 1.8L, Globulin 3.7, Albumin/Globulin Ratio 0.5L, Random Vancomycin Level 26.7 Height (Feet): 5 Height (Inches): 8.00 Weight (Pounds): 216 Leida Decker MD Sep 09, 2017 23:30
[2017-09-10] VITALS (10 sets, daily range): BP systolic 121–147; BP diastolic 70–106
[2017-09-10] MEDS: D5 IV SCH ×2 (01:23→17:28)
[2017-09-10] MEDS: SODIUM BICARBONATE IV SCH ×2 (01:23→17:28)
[2017-09-10] MEDS: [UNRECOGNIZED DRUG - OTHER] IV SCH ×2 (01:23→17:28)
[2017-09-10] MEDS: cloNIDine 0.2mg Tab ORAL SCH ×4 (04:00→21:50)
[2017-09-10] MEDS: Piperacillin/Tazobactam 2.25 GM in D5W 55 ML IVPB SCH ×3 (05:38→20:52)
[2017-09-10] MEDS: Heparin 1000 units/ml 1ml Vial INJ SCH (06:00)
[2017-09-10 06:32] LABS: HEMATOCRIT 25.2 % (42.0-52.0); HEMOGLOBIN 8.8 G/DL (14.2-18.0); MEAN CORPUSCULAR VOLUME 93 FL (80-99); PLATELET COUNT 681 K/UL (150-450); RED BLOOD COUNT 2.72 M/UL (4.70-6.10); RED CELL DISTRIBUTION WIDTH 11.3 % (11.6-14.8)
[2017-09-10 06:40] LABS: WHITE BLOOD COUNT 23.6 K/UL (4.8-10.8)
[2017-09-10 06:58] LABS: ALANINE AMINOTRANSFERASE 103 U/L (12-78); ALBUMIN 1.9 G/DL (3.4-5.0); ALBUMIN/GLOBULIN RATIO 0.5 (1.0-2.7); ALKALINE PHOSPHATASE 103 U/L (46-116); ANION GAP 16 mmol/L (5-15); ASPARTATE AMINO TRANSFERASE 90 U/L (15-37); BILIRUBIN,TOTAL 0.7 MG/DL (0.2-1.0); BLOOD UREA NITROGEN 100 mg/dL (7-18); CALCIUM 7.9 MG/DL (8.5-10.1); CARBON DIOXIDE 23 MMOL/L (21-32); CHLORIDE 96 MMOL/L (98-107); CREATININE 15.6 MG/DL (0.55-1.30); POTASSIUM 4.7 MMOL/L (3.5-5.1); SODIUM 135 MMOL/L (136-145)
[2017-09-10] MEDS ORDERED: Midazolam 2mg/2ml Inj IVP PRN (07:45)
[2017-09-10] MEDS ORDERED: fentaNYL 100 mcg/2 mL IV PRN (07:45)
[2017-09-10] MEDS ORDERED: Atropine Inj 1mg/10ml Syr IV PRN (07:45)
[2017-09-10] MEDS ORDERED: DiphenhydrAMINE 50mg/ml Inj IVP PRN (07:45)
--- NOTE | 2017-09-10 07:50 | Anethesia Preoperative Eval ---
Anesthesia Pre-op PMH/ROS General Date of Evaluation: Sep 10, 2017 Time of Evaluation: 07:39 Anesthesiologist: leonila ASA Score: ASA 4 Mallampati Score Class I : Soft palate, uvula, fauces, pillars visible Class II: Soft palate, uvula, fauces visible Class III: Soft palate, base of uvula visible Class IV: Only hard plate visible Mallampati Classification: Class II Surgeon: shi Diagnosis: possible endocarditis Surgical Procedure: alex Anesthesia History: none Social History: drug use Family History: no anesthesia problems Allergies: Coded Allergies: NO KNOWN ALLERGIES (Verified Allergy, Unknown, 09/02/17) Medications: see eMAR Past Medical History Cardiovascular: Reports: [place], arrhythmia; Denies: HTN, CAD, valve dz, other Pulmonary: Reports: other - respiratory failure, aspiration pneumonia; Denies: asthma, COPD, ELIZABETH Gastrointestinal/Genitourinary: Reports: other - remi, dialysis, transaminitis, shock liver, acute pancreatitis; Denies: GERD, CRI, ESRD Neurologic/Psychiatric: Reports: depression/anxiety, other - overdose, opioid/ bnz withdrawal, polysubstance abuse; Denies: dementia, CVA, TIA Endocrine: Denies: DM, hypothyroidism, steroids, other HEENT: Denies: cataract (L), cataract (R), glaucoma, [place] (L), [place] (R), other Hematology/Immune: Reports: anemia, other - severe sepsis; Denies: DVT, bleeding disorder Musculoskeletal/Integumentary: Reports: other - rhabdomyolysis,; Denies: OA, RA, DJD, DDD, edema Anesthesia Pre-op Phys. Exam Physician Exam Last Vital Signs Date Time Temp Pulse Resp B/P (MAP) Pulse Ox O2 Delivery O2 Flow Rate FiO2 09/10/17 04:00 98.8 74 20 131/106 (114) 95 98.8 09/09/17 21:00 Room Air 09/07/17 19:14 3.0 21 Constitutional: NAD Neurologic: CN 2-12 intact Cardiovascular: RRR Respiratory: CTA Gastrointestinal: S/NT/ND Airway Exam Mallampati Score: Class II MO: full Neck: iván catheter TMD: 2fb ROM: full Teeth: intact Anesthesia Pre-op A/P Labs Hematology Test 09/10/17 05:20 White Blood Count 23.6 K/UL (4.8-10.8) *H Red Blood Count 2.72 M/UL (4.70-6.10) L Hemoglobin 8.8 G/DL (14.2-18.0) L Hematocrit 25.2 % (42.0-52.0) L Mean Corpuscular Volume 93 FL (80-99) Mean Corpuscular Hemoglobin 32.3 PG (27.0-31.0) H Mean Corpuscular Hemoglobin Concent 34.9 G/DL (32.0-36.0) Red Cell Distribution Width 11.3 % (11.6-14.8) L Platelet Count 681 K/UL (150-450) H Mean Platelet Volume 5.6 FL (6.5-10.1) L Neutrophils (%) (Auto) % (45.0-75.0) Lymphocytes (%) (Auto) % (20.0-45.0) Monocytes (%) (Auto) % (1.0-10.0) Eosinophils (%) (Auto) % (0.0-3.0) Basophils (%) (Auto) % (0.0-2.0) Neutrophils % (Manual) Pending Lymphocytes % (Manual) Pending Platelet Estimate Pending Platelet Morphology Pending Chemistry Test 09/10/17 05:20 Sodium Level 135 MMOL/L (136-145) L Potassium Level 4.7 MMOL/L (3.5-5.1) Chloride Level 96 MMOL/L (98-107) L Carbon Dioxide Level 23 MMOL/L (21-32) Anion Gap 16 mmol/L (5-15) H Blood Urea Nitrogen 100 mg/dL (7-18) H Creatinine 15.6 MG/DL (0.55-1.30) H Estimat Glomerular Filtration Rate 3.5 mL/min (>60) Glucose Level 97 MG/DL (74-106) Calcium Level 7.9 MG/DL (8.5-10.1) L Total Bilirubin 0.7 MG/DL (0.2-1.0) Aspartate Amino Transf (AST/SGOT) 90 U/L (15-37) H Alanine Aminotransferase (ALT/SGPT) 103 U/L (12-78) H Alkaline Phosphatase 103 U/L (46-116) Total Protein 5.7 G/DL (6.4-8.2) L Albumin 1.9 G/DL (3.4-5.0) L Globulin 3.8 g/dL Albumin/Globulin Ratio 0.5 (1.0-2.7) L Lipase 728 U/L (73-393) H Studies Pre-op Studies: EKG - Sinus tachycardia Risk Assessment & Plan Assessment: asa4 Plan: mac Status Change Before Surgery: No Pre-Antibiotics Drug: Glenna Palacios MD Sep 10, 2017 07:50
[2017-09-10] MEDS ORDERED: Propofol 200mg/20ml IV ONE (08:00)
[2017-09-10] MEDS ORDERED: Lidocaine 1% MPF 10mg/ml 5ml ONE (08:00)
--- NOTE | 2017-09-10 08:04 | Infectious Diseases Prog Note ---
Assessment/Plan Assessment/Plan Shock, SP Aspiration PNA -CXR 09/04 : Interim development of hazy interstitial and airspace disease in the right lung. This may to some extent be an artifact of less optimal inspiration, however. Interim extubation -CXR 09/03: Marked improvement of previously demonstrated bilateral pulmonary edema, over one day -CXR:More consolidated areas within the diffuse airspace opacity within the right lung and now possible right pleural effusion. The patient is rotated to the right. Interval increase in patchy left perihilar airspace opacities. May represent component of pulmonary edema or aspiration pneumonitis. -sp cx normal ann; repeat sp cx MSSA -legionella ag urine neg Rule out sepsis -u/a wbc 5-10, nit neg, leuk +1; cx neg -Bcx NTD (09/05 abd 09/07) -2d Echo (limited but no vegetations seen) Fever/leukocytosis- initially suspect reactive and 2ry to PNA; now ongoing, worsening leukocytosis- r/o occult infection, endocarditis (+IVDA, possible myositis on CT), ?2ry to pancreatitis -Cdiff neg -v/duplex no DVT Drug overdose -UDS + opiates, amphetamines, THC, cocaine -+empty heroin needles (found on hotel room) -HIV ab sc and VL neg, RPR/FTA, GC/CL neg Multiorgan failure -LUCRECIA, - on HD -Transaminitis, (shock liver); improving -VDRF (airway protection)- now extubaetd 09/03 Lactic acidosis; resolved Rhabdomyolisis; improving3 Pancreatitis- drug induced -neg alcohol levels Encephalopathy - 2ry to above- r.o ischemia, r/o abscess (fever, IVDA +); much improved -CT head 09/04: Unusual scalp contusion, new since prior study 08/29/2017. No evidence of underlying calvarial trauma. Negative for acute intracranial bleed or mass effect -CT head 08/29: Limited exam due to motion artifact. No gross acute intracranial bleed or mass effect Hep C +; VL pending -ABD US: Gallbladder sludge. Negative for gallstones or dilated ducts. Equivocal increased hepatic echogenicity, if real could indicate hepatocellular disease such as fatty change. Borderline hepatomegaly. Mildly increased renal echogenicity, could indicate medical renal disease. Correlate with renal function tests. Left pleural effusion -Hep A and B immune Plan: -Continue empiric IV Vanco and Zosyn #5 (abx d#10) and add IV Micafungin #3 to cover for fungemia given prolonged abx and central line -09/06 SP IV Ancef #4 -09/04 SP IV Azithromycin #3 -09/03 SP Zosyn #6 -f/u Repeat Bcx x2 -f/u KATELYN to eval for endocarditis given +IVDA -WBC tagged scan to eval for occult infection -Monitor CBC/CMP, temperatures -aspiration precautions -Neuro,c ardio, renal, GI f/u Subjective Allergies: Coded Allergies: NO KNOWN ALLERGIES (Verified Allergy, Unknown, 09/02/17) Subjective Patient reports that he is feeling better today. Less sore. He KATELYN this AM No N/V/D or fever per patient. Objective Vital Signs Last 24 Hour Vital Signs Date Time Temp Pulse Resp B/P (MAP) Pulse Ox O2 Delivery O2 Flow Rate FiO2 09/10/17 04:00 98.8 74 20 131/106 (114) 95 98.8 09/10/17 04:00 131/106 09/10/17 00:00 99.2 77 20 143/81 (101) 93 99.2 09/09/17 21:40 127/79 09/09/17 21:00 Room Air 09/09/17 20:00 97.6 71 20 127/79 (95) 88 97.6 09/09/17 17:12 145/77 09/09/17 16:00 98.2 69 20 145/77 (99) 98 98.2 09/09/17 12:22 134/79 09/09/17 12:00 98.5 72 18 134/79 (97) 98 98.5 09/09/17 09:00 Room Air Height (Feet): 5 Height (Inches): 5.00 Weight (Pounds): 216 Objective General: Awake and talking, Poor insight HEENT: NCAT, MMM, EOMI, PERRL Heart: RRR, no murmurs Lungs: CTA x2, No W/C ABD: S+D, ND, BS+ Extremity no edema or cellulitis Microbiology Date/Time Source Procedure Growth Status 09/07/17 21:20 Blood Blood Culture - Preliminary NO GROWTH AFTER 48 HOURS Resulted 09/07/17 20:40 Blood Blood Culture - Preliminary NO GROWTH AFTER 48 HOURS Resulted 09/07/17 18:00 Stool Stool Culture - Preliminary Resulted 09/08/17 17:20 Head Gram Stain - Final Resulted 09/08/17 17:20 Head Wound Culture - Preliminary Resulted Laboratory Tests Test 09/10/17 05:20 White Blood Count 23.6 K/UL (4.8-10.8) *H Red Blood Count 2.72 M/UL (4.70-6.10) L Hemoglobin 8.8 G/DL (14.2-18.0) L Hematocrit 25.2 % (42.0-52.0) L Mean Corpuscular Volume 93 FL (80-99) Mean Corpuscular Hemoglobin 32.3 PG (27.0-31.0) H Mean Corpuscular Hemoglobin Concent 34.9 G/DL (32.0-36.0) Red Cell Distribution Width 11.3 % (11.6-14.8) L Platelet Count 681 K/UL (150-450) H Mean Platelet Volume 5.6 FL (6.5-10.1) L Neutrophils (%) (Auto) % (45.0-75.0) Lymphocytes (%) (Auto) % (20.0-45.0) Monocytes (%) (Auto) % (1.0-10.0) Eosinophils (%) (Auto) % (0.0-3.0) Basophils (%) (Auto) % (0.0-2.0) Neutrophils % (Manual) Pending Lymphocytes % (Manual) Pending Platelet Estimate Pending Platelet Morphology Pending Sodium Level 135 MMOL/L (136-145) L Potassium Level 4.7 MMOL/L (3.5-5.1) Chloride Level 96 MMOL/L (98-107) L Carbon Dioxide Level 23 MMOL/L (21-32) Anion Gap 16 mmol/L (5-15) H Blood Urea Nitrogen 100 mg/dL (7-18) H Creatinine 15.6 MG/DL (0.55-1.30) H Estimat Glomerular Filtration Rate 3.5 mL/min (>60) Glucose Level 97 MG/DL (74-106) Calcium Level 7.9 MG/DL (8.5-10.1) L Total Bilirubin 0.7 MG/DL (0.2-1.0) Aspartate Amino Transf (AST/SGOT) 90 U/L (15-37) H Alanine Aminotransferase (ALT/SGPT) 103 U/L (12-78) H Alkaline Phosphatase 103 U/L (46-116) Total Protein 5.7 G/DL (6.4-8.2) L Albumin 1.9 G/DL (3.4-5.0) L Globulin 3.8 g/dL Albumin/Globulin Ratio 0.5 (1.0-2.7) L Lipase 728 U/L (73-393) H Current Medications Medications (Trade) Dose Ordered Sig/Krystyna Route PRN Reason Start Time Stop Time Status Last Admin Dose Admin Acetaminophen (Tylenol) 650 mg Q4H PRN ORAL Fever (temp>100.5F) 09/05/17 18:30 10/05/17 18:29 09/08/17 21:44 Al Hydroxide/Mg Hydroxide (Mylanta) 15 ml Q1H PRN ORAL gi upset 09/10/17 07:45 09/10/17 16:00 Atropine Sulfate (Atropine) 0.5 mg Q5M PRN IV bpm less than 45 09/10/17 07:45 09/10/17 16:00 Chlorhexidine Gluconate (Jyotsna-Hex 2%) 1 applic DAILY@2000 TOPIC 09/05/17 20:00 09/29/17 19:59 09/08/17 21:42 Clonidine HCl (Catapres tab) 0.1 mg Q6H ORAL 09/10/17 04:00 10/10/17 03:59 Dextrose (Dextrose 50%) 25 ml STAT PRN IV Hypoglycemia 09/05/17 18:30 10/05/17 18:29 Dextrose (Dextrose 50%) 50 ml STAT PRN IV Hypoglycemia 09/05/17 18:30 10/05/17 18:29 Diazepam (Valium) 10 mg EVERY 4 HOURS PRN ORAL For Anxiety 09/06/17 13:15 09/13/17 13:14 09/10/17 01:05 Diphenhydramine HCl (Benadryl) 25 mg Q15M PRN IVP Itching 09/10/17 07:45 09/10/17 16:00 Famotidine (Pepcid) 20 mg DAILY ORAL 09/07/17 09:00 10/07/17 08:59 09/09/17 09:25 Fentanyl Citrate (Sublimaze 100 mcg/2 mL) 25 mcg Q10M PRN IV Moderate Pain (Pain Scale 4-6) 09/10/17 07:45 09/10/17 16:00 Heparin Sodium (Porcine) (Heparin 5000 units/ml) 5,000 units EVERY 12 HOURS SUBQ 09/05/17 21:00 09/28/17 20:59 09/09/17 21:41 Heparin Sodium (Porcine) (Heparin) 2,000 unit ONCE INJ 09/09/17 06:00 09/10/17 23:59 Methadone HCl (Methadone HCl) 10 mg Q6H PRN ORAL For Pain 1-6 09/05/17 18:00 09/11/17 17:59 09/09/17 12:59 Micafungin Sodium 100 mg/Sodium Chloride 110 ml @ 110 mls/hr Q24H IVPB 09/07/17 13:00 09/14/17 12:59 09/09/17 12:22 Midazolam HCl (Versed 2mg/2ml vial) 1 mg Q15M PRN IVP For Anxiety 09/10/17 07:45 09/10/17 16:00 Mirtazapine (Remeron) 15 mg BEDTIME ORAL 09/05/17 21:00 10/04/17 20:59 09/09/17 21:40 Mupirocin (Bactroban Oint) 1 applic BID TOPIC 09/08/17 18:00 09/13/17 17:59 09/09/17 17:13 Nitroglycerin (Ntg) 0.4 mg Q5M PRN SL Prn Chest Pain 09/05/17 18:30 09/28/17 14:44 Ondansetron HCl (Zofran) 4 mg Q1H PRN IVP Nausea & Vomiting 09/10/17 07:45 09/10/17 16:00 Piperacillin Sod/ Tazobactam Sod 2.25 gm/Dextrose 55 ml @ 110 mls/hr Q8HR IVPB 09/06/17 16:00 09/11/17 15:59 09/10/17 05:38 Sodium Bicarbonate 50 ml/ Dextrose/Sodium Chloride 1,000 ml @ 50 mls/hr Q20H IV 09/09/17 22:00 10/09/17 21:59 09/10/17 01:23 Sodium Chloride 1,000 ml @ 10 mls/hr Q24H IVLG 09/10/17 07:37 09/10/17 16:00 Vancomycin HCl (Vanco rx to dose) 1 ea DAILY PRN MISC Per rx protocol 09/06/17 15:00 10/06/17 14:59 Jean Cervantes M.D. Sep 10, 2017 08:04
[2017-09-10] MEDS ORDERED: NS 500ML IVPB ONE (08:30)
--- NOTE | 2017-09-10 08:30 | Pre-Procedure Note/Attestation ---
Pre-Procedure Note/Attestation Complete Prior to Procedure Procedure Narrative: KATELYN Indications for Procedure Pre-Operative Diagnosis: Sepsis Attestation I attest that I discussed the nature of the procedure; its benefits; risks and complications; and alternatives (and the risks and benefits of such alternatives ), prior to the procedure, with the patient (or the patient's legal community health program representative). I attest that, if there was a reasonable possibility of needing a blood transfusion, the patient (or the patient's legal community health program representative) was given the [facility] standardized written summary, pursuant to the [place] Blood Safety Act ([place] Health and Safety Code # 1645, as amended). I attest that I re-evaluated the patient just prior to the surgery and that there has been no change in the patient's H&P, except as documented below: Jorge Mcdonough MD Sep 10, 2017 08:30
--- NOTE | 2017-09-10 08:54 | Brief Operative Note ---
Immediate Post Operative Note Operative Note Chief Complaint: Sepsis Pre-op Diagnosis: Sepsis Procedure: KATELYN Post-op Diagnosis: Sepsis Mild mitral regurgitation No valvular vegetations Post-op Diagnosis: same as pre-op Surgeon: Jorge mcdonough MD, [facility] Line Mechanic: None Anesthesiologist: Dr. Sahu Anesthesia: general Specimen: none Complications: none Condition: stable Fluids: None Estimated Blood Loss: none Drains: none Implant(s) used?: No Jorge Mcdonough MD Sep 10, 2017 08:54
--- NOTE | 2017-09-10 09:12 | Immediate Post-Op Evaluation ---
Immediate Post-Op Evalulation Immediate Post-Op Evalulation Procedure: alex Date of Evaluation: Sep 10, 2017 Time of Evaluation: 09:07 IV Fluids: 300ml 0.9ns Blood Products: none Estimated Blood Loss: negligible Blood Pressure Systolic: 140 Blood Pressure Diastolic: 80 Pulse Rate: 77 Respiratory Rate: 18 O2 Sat by Pulse Oximetry: 97 Temperature (Fahrenheit): 99.4 Pain Score (1-10): 0 Nausea: No Vomiting: No Complications none Patient Status: awake, reacts, patent Hydration Status: adequate Drug: Glenna Palacios MD Sep 10, 2017 09:12
--- NOTE | 2017-09-10 09:14 | 48 Hour Post Anesthesia Eval ---
Post Anesthesia Evaluation Procedure: alex Date of Evaluation: Sep 10, 2017 Time of Evaluation: 09:09 Blood Pressure Systolic: 140 0: 84 Pulse Rate: 80 Respiratory Rate: 18 Temperature (Fahrenheit): 99.4 O2 Sat by Pulse Oximetry: 97 Airway: patent Nausea: No Vomiting: No Pain Intensity: 0 Hydration Status: adequate Cardiopulmonary Status: stable Mental Status/LOC: patient returned to baseline Post-Anesthesia Complications: none Follow-up care needed: N/A Glenna Mason MD Sep 10, 2017 09:14
[2017-09-10] MEDS: Heparin 5000 units/ml inj SUBQ SCH ×2 (09:52→20:54)
--- NOTE | 2017-09-10 12:30 | Procedure Note ---
TRANSESOPHAGEAL ECHOCARDIOGRAPHY PROCEDURE ATTENDING SURGEON: Jorge Mcdonough M.D., [facility]. PREOPERATIVE DIAGNOSIS: Sepsis with upgoing WBC count with no evidence of growth in the blood cultures, history of drug use with encephalopathy. POSTOPERATIVE FINDINGS: 1. No valvular vegetations. 2. Mild mitral regurgitation. 3. No evidence of left atrial appendage thrombus. 4. Normal LV systolic and diastolic function. PLAN AND RECOMMENDATION: The patient does not have any evidence of infective endocarditis, continuation of IV antibiotic therapy per ID recommendations. DESCRIPTION OF PROCEDURE: After discussing the risks, benefits, and alternatives of the procedure and obtaining the informed consent from the patient, the patient was brought down to the GI laboratory in the fasting state. He was placed in the left lateral decubitus position. Bite block was placed. At the presence of anesthesiologist, while the patient was attached to the environmental monitoring specialist, use of the propofol as a general anesthetic agent, the transesophageal echocardiography probe was advanced through the bite block and was secured in the mid esophageal area at a distance of just about 35 cm from the incisors teeth. After review of the cardiac structures, the probe was removed. The patient tolerated the procedure well with no complications. At the time of exit from the GI laboratory, the patient was in stable condition. CONCLUSION: No evidence of infective endocarditis. Jorge Mcdonough M.D. DR: Thiago JOB#: [id number] CC:
--- NOTE | 2017-09-10 12:52 | Pulmonology Progress Note ---
Assessment/Plan Problems: (1) Respiratory failure Assessment & Plan: improved (2) LUCRECIA (acute kidney injury) (3) Severe sepsis (4) Overdose Assessment/Plan WBC scan done WBC still high stewart culture again, WBC increasing continue abx antifungal were added Subjective ROS Limited/Unobtainable: Yes Interval Events: less sedated Constitutional: Reports: no symptoms HEENT: Repors: no symptoms Respiratory: Reports: no symptoms Allergies: Coded Allergies: NO KNOWN ALLERGIES (Verified Allergy, Unknown, 09/02/17) Objective Last 24 Hour Vital Signs Date Time Temp Pulse Resp B/P (MAP) Pulse Ox O2 Delivery O2 Flow Rate FiO2 09/10/17 12:00 98.6 73 20 144/84 (104) 95 98.6 09/10/17 10:00 140/87 09/10/17 09:19 99 71 18 140/87 96 Room Air 99.0 09/10/17 09:14 68 21 121/76 96 Room Air 09/10/17 09:14 210.9 80 18 97 09/10/17 09:12 210.9 77 18 97 09/10/17 09:05 76 17 133/83 96 Room Air 09/10/17 09:00 73 18 127/78 96 Room Air 09/10/17 09:00 Room Air 09/10/17 08:55 99.4 77 18 140/80 97 Nasal Cannula 3 99.4 09/10/17 04:00 98.8 74 20 131/106 (114) 95 98.8 09/10/17 04:00 131/106 09/10/17 00:00 99.2 77 20 143/81 (101) 93 99.2 09/09/17 21:40 127/79 09/09/17 21:00 Room Air 09/09/17 20:00 97.6 71 20 127/79 (95) 88 97.6 09/09/17 17:12 145/77 09/09/17 16:00 98.2 69 20 145/77 (99) 98 98.2 Intake and Output 09/09/17 09/10/17 19:00 07:00 Intake Total 55 ml Balance 55 ml IV Total 55 ml # Voids 2 # Bowel Movements 3 General Appearance: WD/WN HEENT: normocephalic, atraumatic Respiratory/Chest: chest wall non-tender, lungs clear Cardiovascular: normal peripheral pulses, regular rhythm Abdomen: soft, non tender, no organomegaly Extremities: no cyanosis Skin: no rash Microbiology Date/Time Source Procedure Growth Status 09/07/17 21:20 Blood Blood Culture - Preliminary NO GROWTH AFTER 48 HOURS Resulted 09/07/17 20:40 Blood Blood Culture - Preliminary NO GROWTH AFTER 48 HOURS Resulted 09/07/17 18:00 Stool Stool Culture - Preliminary Resulted 09/08/17 17:20 Head Gram Stain - Final Resulted 09/08/17 17:20 Wound Culture - Preliminary Staphylococcus Sp Coag Neg Resulted Laboratory Tests 09/10/17 05:20: White Blood Count 23.6*H, Red Blood Count 2.72L, Hemoglobin 8.8L, Hematocrit 25.2L, Mean Corpuscular Volume 93, Mean Corpuscular Hemoglobin 32.3H, Mean Corpuscular Hemoglobin Concent 34.9, Red Cell Distribution Width 11.3L, Platelet Count 681H, Mean Platelet Volume 5.6L, Neutrophils (%) (Auto) , Lymphocytes (%) (Auto) , Monocytes (%) (Auto) , Eosinophils (%) (Auto) , Basophils (%) (Auto) , Differential Total Cells Counted 100, Neutrophils % ( Manual) 80H, Lymphocytes % (Manual) 9L, Monocytes % (Manual) 10, Eosinophils % ( Manual) 1, Basophils % (Manual) 0, Band Neutrophils 0, Platelet Estimate IncreasedH, Platelet Morphology Normal, Sodium Level 135L, Potassium Level 4.7, Chloride Level 96L, Carbon Dioxide Level 23, Anion Gap 16H, Blood Urea Nitrogen 100H, Creatinine 15.6H, Estimat Glomerular Filtration Rate 3.5, Glucose Level 97 , Calcium Level 7.9L, Total Bilirubin 0.7, Aspartate Amino Transf (AST/SGOT) 90H , Alanine Aminotransferase (ALT/SGPT) 103H, Alkaline Phosphatase 103, Total Protein 5.7L, Albumin 1.9L, Globulin 3.8, Albumin/Globulin Ratio 0.5L, Lipase 728H Current Medications Medications (Trade) Dose Ordered Sig/Krystyna Route PRN Reason Start Time Stop Time Status Last Admin Dose Admin Acetaminophen (Tylenol) 650 mg Q4H PRN ORAL Fever (temp>100.5F) 09/05/17 18:30 10/05/17 18:29 09/08/17 21:44 Al Hydroxide/Mg Hydroxide (Mylanta) 15 ml Q1H PRN ORAL gi upset 09/10/17 07:45 09/10/17 16:00 Atropine Sulfate (Atropine) 0.5 mg Q5M PRN IV bpm less than 45 09/10/17 07:45 09/10/17 16:00 Chlorhexidine Gluconate (Jyotsna-Hex 2%) 1 applic DAILY@2000 TOPIC 09/05/17 20:00 09/29/17 19:59 09/08/17 21:42 Clonidine HCl (Catapres tab) 0.1 mg Q6H ORAL 09/10/17 04:00 10/10/17 03:59 Dextrose (Dextrose 50%) 25 ml STAT PRN IV Hypoglycemia 09/05/17 18:30 10/05/17 18:29 Dextrose (Dextrose 50%) 50 ml STAT PRN IV Hypoglycemia 09/05/17 18:30 10/05/17 18:29 Diazepam (Valium) 10 mg EVERY 4 HOURS PRN ORAL For Anxiety 09/06/17 13:15 09/13/17 13:14 09/10/17 01:05 Diphenhydramine HCl (Benadryl) 25 mg Q15M PRN IVP Itching 09/10/17 07:45 09/10/17 16:00 Famotidine (Pepcid) 20 mg DAILY ORAL 09/07/17 09:00 10/07/17 08:59 09/09/17 09:25 Fentanyl Citrate (Sublimaze 100 mcg/2 mL) 25 mcg Q10M PRN IV Moderate Pain (Pain Scale 4-6) 09/10/17 07:45 09/10/17 16:00 Heparin Sodium (Porcine) (Heparin 5000 units/ml) 5,000 units EVERY 12 HOURS SUBQ 09/05/17 21:00 09/28/17 20:59 09/10/17 09:52 Heparin Sodium (Porcine) (Heparin) 2,000 unit ONCE INJ 09/09/17 06:00 09/10/17 23:59 Methadone HCl (Methadone HCl) 10 mg Q6H ORAL 09/10/17 12:00 09/16/17 21:00 09/10/17 11:15 Micafungin Sodium 100 mg/Sodium Chloride 110 ml @ 110 mls/hr Q24H IVPB 09/07/17 13:00 09/14/17 12:59 09/09/17 12:22 Midazolam HCl (Versed 2mg/2ml vial) 1 mg Q15M PRN IVP For Anxiety 09/10/17 07:45 09/10/17 16:00 Mirtazapine (Remeron) 15 mg BEDTIME ORAL 09/05/17 21:00 10/04/17 20:59 09/09/17 21:40 Mupirocin (Bactroban Oint) 1 applic BID TOPIC 09/08/17 18:00 09/13/17 17:59 09/10/17 09:51 Nitroglycerin (Ntg) 0.4 mg Q5M PRN SL Prn Chest Pain 09/05/17 18:30 09/28/17 14:44 Ondansetron HCl (Zofran) 4 mg Q1H PRN IVP Nausea & Vomiting 09/10/17 07:45 09/10/17 16:00 Piperacillin Sod/ Tazobactam Sod 2.25 gm/Dextrose 55 ml @ 110 mls/hr Q8HR IVPB 09/06/17 16:00 09/15/17 15:59 09/10/17 05:38 Sodium Bicarbonate 50 ml/ Dextrose/Sodium Chloride 1,000 ml @ 50 mls/hr Q20H IV 09/09/17 22:00 10/09/17 21:59 09/10/17 01:23 Sodium Chloride 1,000 ml @ 10 mls/hr Q24H IVLG 09/10/17 07:37 09/10/17 16:00 09/10/17 09:53 Vancomycin HCl (Vanco rx to dose) 1 ea DAILY PRN MISC Per rx protocol 09/06/17 15:00 10/06/17 14:59 Arpita Andre MD Sep 10, 2017 12:52
--- NOTE | 2017-09-10 13:15 | General Progress Note ---
Assessment/Plan Problem List: (1) Substance abuse ICD Codes: F19.10 - Other psychoactive substance abuse, uncomplicated SNOMED: 27097331 (2) Severe sepsis ICD Codes: A41.9 - Sepsis, unspecified organism; R65.20 - Severe sepsis without septic shock SNOMED: 32255131 (3) LUCRECIA (acute kidney injury) ICD Codes: N17.9 - Acute kidney failure, unspecified SNOMED: 71443802 Status: progressing Assessment/Plan afebrile reviewed chart sepsis no acute events check meds dependence on pain meds manged by dr key Subjective ROS Limited/Unobtainable: Yes Allergies: Coded Allergies: NO KNOWN ALLERGIES (Verified Allergy, Unknown, 09/02/17) Objective Last 24 Hour Vital Signs Date Time Temp Pulse Resp B/P (MAP) Pulse Ox O2 Delivery O2 Flow Rate FiO2 09/10/17 12:00 98.6 73 20 144/84 (104) 95 98.6 09/10/17 10:00 140/87 09/10/17 09:19 99 71 18 140/87 96 Room Air 99.0 09/10/17 09:14 68 21 121/76 96 Room Air 09/10/17 09:14 210.9 80 18 97 09/10/17 09:12 210.9 77 18 97 09/10/17 09:05 76 17 133/83 96 Room Air 09/10/17 09:00 73 18 127/78 96 Room Air 09/10/17 09:00 Room Air 09/10/17 08:55 99.4 77 18 140/80 97 Nasal Cannula 3 99.4 09/10/17 04:00 98.8 74 20 131/106 (114) 95 98.8 09/10/17 04:00 131/106 09/10/17 00:00 99.2 77 20 143/81 (101) 93 99.2 09/09/17 21:40 127/79 09/09/17 21:00 Room Air 09/09/17 20:00 97.6 71 20 127/79 (95) 88 97.6 09/09/17 17:12 145/77 09/09/17 16:00 98.2 69 20 145/77 (99) 98 98.2 Intake and Output 09/09/17 09/10/17 19:00 07:00 Intake Total 55 ml Balance 55 ml IV Total 55 ml # Voids 2 # Bowel Movements 3 Laboratory Tests 09/10/17 05:20: White Blood Count 23.6*H, Red Blood Count 2.72L, Hemoglobin 8.8L, Hematocrit 25.2L, Mean Corpuscular Volume 93, Mean Corpuscular Hemoglobin 32.3H, Mean Corpuscular Hemoglobin Concent 34.9, Red Cell Distribution Width 11.3L, Platelet Count 681H, Mean Platelet Volume 5.6L, Neutrophils (%) (Auto) , Lymphocytes (%) (Auto) , Monocytes (%) (Auto) , Eosinophils (%) (Auto) , Basophils (%) (Auto) , Differential Total Cells Counted 100, Neutrophils % ( Manual) 80H, Lymphocytes % (Manual) 9L, Monocytes % (Manual) 10, Eosinophils % ( Manual) 1, Basophils % (Manual) 0, Band Neutrophils 0, Platelet Estimate IncreasedH, Platelet Morphology Normal, Sodium Level 135L, Potassium Level 4.7, Chloride Level 96L, Carbon Dioxide Level 23, Anion Gap 16H, Blood Urea Nitrogen 100H, Creatinine 15.6H, Estimat Glomerular Filtration Rate 3.5, Glucose Level 97 , Calcium Level 7.9L, Total Bilirubin 0.7, Aspartate Amino Transf (AST/SGOT) 90H , Alanine Aminotransferase (ALT/SGPT) 103H, Alkaline Phosphatase 103, Total Protein 5.7L, Albumin 1.9L, Globulin 3.8, Albumin/Globulin Ratio 0.5L, Lipase 728H Height (Feet): 5 Height (Inches): 5.00 Weight (Pounds): 216 Cardiovascular: normal rate Respiratory/Chest: lungs clear Abdomen: soft Mode Dutta MD Sep 10, 2017 13:15
[2017-09-10] MEDS: Micafungin 100 MG in NS 110 ML IVPB SCH (13:27)
--- NOTE | 2017-09-10 14:19 | General Progress Note ---
Assessment/Plan Status: stable Assessment/Plan mdd polysubstance dependence opioid and benzo withdrawal -cont methadone increased the dose -cont clonidine/ decrease the dose -dc valuim prn -cont remeron -seroquel 50mg q4 prn Subjective Date patient seen: Sep 10, 2017 Neurologic/Psychiatric: Reports: anxiety, depressed, emotional problems Allergies: Coded Allergies: NO KNOWN ALLERGIES (Verified Allergy, Unknown, 09/02/17) Subjective the pt gets agitated around 6:30 everyday. Objective Last 24 Hour Vital Signs Date Time Temp Pulse Resp B/P (MAP) Pulse Ox O2 Delivery O2 Flow Rate FiO2 09/10/17 12:00 98.6 73 20 144/84 (104) 95 98.6 09/10/17 10:00 140/87 09/10/17 09:19 99 71 18 140/87 96 Room Air 99.0 09/10/17 09:14 68 21 121/76 96 Room Air 09/10/17 09:14 210.9 80 18 97 09/10/17 09:12 210.9 77 18 97 09/10/17 09:05 76 17 133/83 96 Room Air 09/10/17 09:00 73 18 127/78 96 Room Air 09/10/17 09:00 Room Air 09/10/17 08:55 99.4 77 18 140/80 97 Nasal Cannula 3 99.4 09/10/17 04:00 98.8 74 20 131/106 (114) 95 98.8 09/10/17 04:00 131/106 09/10/17 00:00 99.2 77 20 143/81 (101) 93 99.2 09/09/17 21:40 127/79 09/09/17 21:00 Room Air 09/09/17 20:00 97.6 71 20 127/79 (95) 88 97.6 09/09/17 17:12 145/77 09/09/17 16:00 98.2 69 20 145/77 (99) 98 98.2 Intake and Output 09/09/17 09/10/17 19:00 07:00 Intake Total 55 ml Balance 55 ml IV Total 55 ml # Voids 2 # Bowel Movements 3 Laboratory Tests 09/10/17 05:20: White Blood Count 23.6*H, Red Blood Count 2.72L, Hemoglobin 8.8L, Hematocrit 25.2L, Mean Corpuscular Volume 93, Mean Corpuscular Hemoglobin 32.3H, Mean Corpuscular Hemoglobin Concent 34.9, Red Cell Distribution Width 11.3L, Platelet Count 681H, Mean Platelet Volume 5.6L, Neutrophils (%) (Auto) , Lymphocytes (%) (Auto) , Monocytes (%) (Auto) , Eosinophils (%) (Auto) , Basophils (%) (Auto) , Differential Total Cells Counted 100, Neutrophils % ( Manual) 80H, Lymphocytes % (Manual) 9L, Monocytes % (Manual) 10, Eosinophils % ( Manual) 1, Basophils % (Manual) 0, Band Neutrophils 0, Platelet Estimate IncreasedH, Platelet Morphology Normal, Sodium Level 135L, Potassium Level 4.7, Chloride Level 96L, Carbon Dioxide Level 23, Anion Gap 16H, Blood Urea Nitrogen 100H, Creatinine 15.6H, Estimat Glomerular Filtration Rate 3.5, Glucose Level 97 , Calcium Level 7.9L, Total Bilirubin 0.7, Aspartate Amino Transf (AST/SGOT) 90H , Alanine Aminotransferase (ALT/SGPT) 103H, Alkaline Phosphatase 103, Total Protein 5.7L, Albumin 1.9L, Globulin 3.8, Albumin/Globulin Ratio 0.5L, Lipase 728H Height (Feet): 5 Height (Inches): 5.00 Weight (Pounds): 216 General Appearance: no apparent distress, lethargic Neurologic: oriented x 3, responsive, depressed affect Leida Decker MD Sep 10, 2017 14:19
--- NOTE | 2017-09-10 14:55 | General Progress Note ---
Assessment/Plan Status: unchanged Assessment/Plan # Leukocytosis. --> Closely monitor for improvement. --> WBC remains elevated over 3 days --> Cont IV abx --> 09/09 mild fever. # Anemia. --> Currently stable. No w/u required. Hgb above 11 --> Closely monitor. # Thrombocytosis. Likely reactive process an will improve. --> Closely monitor PLT count for improvement. # Transaminitis. Trending downwards. The time the note was entered does not necessarily correspond to the time the patient was seen. Subjective Date patient seen: Sep 10, 2017 ROS Limited/Unobtainable: Yes Hematologic/Lymphatic: Reports: anemia Allergies: Coded Allergies: NO KNOWN ALLERGIES (Verified Allergy, Unknown, 09/02/17) All Systems: reviewed and negative except above Subjective Pt awake and alert. No acute events. WBC remains elevated, pt on IV abx. S/P KATELYN , tolerated well. Objective Last 24 Hour Vital Signs Date Time Temp Pulse Resp B/P (MAP) Pulse Ox O2 Delivery O2 Flow Rate FiO2 09/10/17 12:00 98.6 73 20 144/84 (104) 95 98.6 09/10/17 10:00 140/87 09/10/17 09:19 99 71 18 140/87 96 Room Air 99.0 09/10/17 09:14 68 21 121/76 96 Room Air 09/10/17 09:14 210.9 80 18 97 09/10/17 09:12 210.9 77 18 97 09/10/17 09:05 76 17 133/83 96 Room Air 09/10/17 09:00 73 18 127/78 96 Room Air 09/10/17 09:00 Room Air 09/10/17 08:55 99.4 77 18 140/80 97 Nasal Cannula 3 99.4 09/10/17 04:00 98.8 74 20 131/106 (114) 95 98.8 09/10/17 04:00 131/106 09/10/17 00:00 99.2 77 20 143/81 (101) 93 99.2 09/09/17 21:40 127/79 09/09/17 21:00 Room Air 09/09/17 20:00 97.6 71 20 127/79 (95) 88 97.6 09/09/17 17:12 145/77 09/09/17 16:00 98.2 69 20 145/77 (99) 98 98.2 Intake and Output 09/09/17 09/10/17 19:00 07:00 Intake Total 55 ml Balance 55 ml IV Total 55 ml # Voids 2 # Bowel Movements 3 Laboratory Tests 09/10/17 05:20: White Blood Count 23.6*H, Red Blood Count 2.72L, Hemoglobin 8.8L, Hematocrit 25.2L, Mean Corpuscular Volume 93, Mean Corpuscular Hemoglobin 32.3H, Mean Corpuscular Hemoglobin Concent 34.9, Red Cell Distribution Width 11.3L, Platelet Count 681H, Mean Platelet Volume 5.6L, Neutrophils (%) (Auto) , Lymphocytes (%) (Auto) , Monocytes (%) (Auto) , Eosinophils (%) (Auto) , Basophils (%) (Auto) , Differential Total Cells Counted 100, Neutrophils % ( Manual) 80H, Lymphocytes % (Manual) 9L, Monocytes % (Manual) 10, Eosinophils % ( Manual) 1, Basophils % (Manual) 0, Band Neutrophils 0, Platelet Estimate IncreasedH, Platelet Morphology Normal, Sodium Level 135L, Potassium Level 4.7, Chloride Level 96L, Carbon Dioxide Level 23, Anion Gap 16H, Blood Urea Nitrogen 100H, Creatinine 15.6H, Estimat Glomerular Filtration Rate 3.5, Glucose Level 97 , Calcium Level 7.9L, Total Bilirubin 0.7, Aspartate Amino Transf (AST/SGOT) 90H , Alanine Aminotransferase (ALT/SGPT) 103H, Alkaline Phosphatase 103, Total Protein 5.7L, Albumin 1.9L, Globulin 3.8, Albumin/Globulin Ratio 0.5L, Lipase 728H Height (Feet): 5 Height (Inches): 5.00 Weight (Pounds): 216 General Appearance: no apparent distress, alert EENT: PERRL/EOMI Neck: normal alignment Cardiovascular: normal peripheral pulses Respiratory/Chest: no respiratory distress Abdomen: soft Diogenes Flores MD Sep 10, 2017 14:55
--- NOTE | 2017-09-10 15:33 | GI Progress Note ---
Assessment/Plan Problems: (1) Severe sepsis ICD Codes: A41.9 - Sepsis, unspecified organism; R65.20 - Severe sepsis without septic shock SNOMED: 91813134 (2) Rhabdomyolysis ICD Codes: M62.82 - Rhabdomyolysis SNOMED: 534611871 Qualifiers: Qualified Codes: T79.6XXA - Traumatic ischemia of muscle, initial encounter (3) Aspiration pneumonia ICD Codes: J69.0 - Pneumonitis due to inhalation of food and vomit SNOMED: 516774417 Qualifiers: Qualified Codes: J69.0 - Pneumonitis due to inhalation of food and vomit (4) Substance abuse ICD Codes: F19.10 - Other psychoactive substance abuse, uncomplicated SNOMED: 77461884 (5) Transaminitis ICD Codes: R74.0 - Nonspecific elevation of levels of transaminase and lactic acid dehydrogenase [LDH] SNOMED: 636803299, 673978029 Status: stable Status Narrative Discussed with Dr. Chavez. Assessment/Plan Hep A immunity Hep C positive transaminitis >> downtrending cdiff negative regular diet, tolerating 50% fu labs, lipase, trend LFTs supportive care ppi outpatient Hep C tx The patient was seen and examined at bedside and all new and available data was reviewed in the patients chart. I agree with the above findings, impression and plan. (Patient seen earlier today. Signature stamp does not reflect patient encounter time.). - Efrain Chavez MD Subjective Subjective generalized weakness hip pain Objective Last 24 Hour Vital Signs Date Time Temp Pulse Resp B/P (MAP) Pulse Ox O2 Delivery O2 Flow Rate FiO2 09/10/17 12:00 98.6 73 20 144/84 (104) 95 98.6 09/10/17 10:00 140/87 09/10/17 09:19 99 71 18 140/87 96 Room Air 99.0 09/10/17 09:14 68 21 121/76 96 Room Air 09/10/17 09:14 210.9 80 18 97 09/10/17 09:12 210.9 77 18 97 09/10/17 09:05 76 17 133/83 96 Room Air 09/10/17 09:00 73 18 127/78 96 Room Air 09/10/17 09:00 Room Air 09/10/17 08:55 99.4 77 18 140/80 97 Nasal Cannula 3 99.4 09/10/17 04:00 98.8 74 20 131/106 (114) 95 98.8 09/10/17 04:00 131/106 09/10/17 00:00 99.2 77 20 143/81 (101) 93 99.2 09/09/17 21:40 127/79 09/09/17 21:00 Room Air 09/09/17 20:00 97.6 71 20 127/79 (95) 88 97.6 09/09/17 17:12 145/77 09/09/17 16:00 98.2 69 20 145/77 (99) 98 98.2 Intake and Output 09/09/17 09/10/17 19:00 07:00 Intake Total 55 ml Balance 55 ml IV Total 55 ml # Voids 2 # Bowel Movements 3 Laboratory Tests Test 09/10/17 05:20 White Blood Count 23.6 K/UL (4.8-10.8) *H Red Blood Count 2.72 M/UL (4.70-6.10) L Hemoglobin 8.8 G/DL (14.2-18.0) L Hematocrit 25.2 % (42.0-52.0) L Mean Corpuscular Volume 93 FL (80-99) Mean Corpuscular Hemoglobin 32.3 PG (27.0-31.0) H Mean Corpuscular Hemoglobin Concent 34.9 G/DL (32.0-36.0) Red Cell Distribution Width 11.3 % (11.6-14.8) L Platelet Count 681 K/UL (150-450) H Mean Platelet Volume 5.6 FL (6.5-10.1) L Neutrophils (%) (Auto) % (45.0-75.0) Lymphocytes (%) (Auto) % (20.0-45.0) Monocytes (%) (Auto) % (1.0-10.0) Eosinophils (%) (Auto) % (0.0-3.0) Basophils (%) (Auto) % (0.0-2.0) Differential Total Cells Counted 100 Neutrophils % (Manual) 80 % (45-75) H Lymphocytes % (Manual) 9 % (20-45) L Monocytes % (Manual) 10 % (1-10) Eosinophils % (Manual) 1 % (0-3) Basophils % (Manual) 0 % (0-2) Band Neutrophils 0 % (0-8) Platelet Estimate Increased H Platelet Morphology Normal Sodium Level 135 MMOL/L (136-145) L Potassium Level 4.7 MMOL/L (3.5-5.1) Chloride Level 96 MMOL/L (98-107) L Carbon Dioxide Level 23 MMOL/L (21-32) Anion Gap 16 mmol/L (5-15) H Blood Urea Nitrogen 100 mg/dL (7-18) H Creatinine 15.6 MG/DL (0.55-1.30) H Estimat Glomerular Filtration Rate 3.5 mL/min (>60) Glucose Level 97 MG/DL (74-106) Calcium Level 7.9 MG/DL (8.5-10.1) L Total Bilirubin 0.7 MG/DL (0.2-1.0) Aspartate Amino Transf (AST/SGOT) 90 U/L (15-37) H Alanine Aminotransferase (ALT/SGPT) 103 U/L (12-78) H Alkaline Phosphatase 103 U/L (46-116) Total Protein 5.7 G/DL (6.4-8.2) L Albumin 1.9 G/DL (3.4-5.0) L Globulin 3.8 g/dL Albumin/Globulin Ratio 0.5 (1.0-2.7) L Lipase 728 U/L (73-393) H Height (Feet): 5 Height (Inches): 5.00 Weight (Pounds): 216 General Appearance: WD/WN, no apparent distress, alert Cardiovascular: normal rate Respiratory/Chest: normal breath sounds, no respiratory distress Abdominal Exam: normal bowel sounds, non tender, soft Extremities: non-tender Carlos Lopez HARNESS PULLER Sep 10, 2017 15:33
--- NOTE | 2017-09-10 17:48 | Diagnostic Imaging Report ---
WHITE BLOOD CELL SCAN TECHNIQUE: One day following IV administration of indium-111 labeled autologous white blood cells, anterior and posterior images were acquired. Dose 533 microCuries In-111 WBCs CLINICAL INFORMATION: Leukocytosis. Concern for occult infection. Comparison: None. FINDINGS Please note that per the nuclear medicine supervisor charting patient was extremely difficult to scan. He was uncooperative with exam positioning. This results in increased image noise. Within these limitations: Normal physiological tracer activity is noted in the liver and spleen and in the bone marrow of the axial and appendicular skeleton. No definite abnormal focus of radiotracer uptake identified. IMPRESSION Limited exam as above. No definite abnormal focus of radiotracer uptake.
--- NOTE | 2017-09-10 20:49 | Neurology Progress Note ---
Interim History Interim History Interim History Mr. Stover feels relatively well. He was undergoing HD when I went to see him. He was sleeping but he could be aroused. He feels that his mind is clearing up. He however is still forgetful. He is more confused and disoriented today. His appetite is better and he is eating more. He is still generally weak. He denies any new neurologic symptoms. He specifically denies any weakness on one side or the other, numbness on one side or the other, problems with speech, problems with language, or problems with vision. Review of Systems Neuro Review of Systems Benign. Objective Physical Exam Last Vital Signs Date Time Temp Pulse Resp B/P (MAP) Pulse Ox O2 Delivery O2 Flow Rate FiO2 09/10/17 17:29 138/80 09/10/17 16:00 98.8 71 20 95 98.8 09/10/17 09:19 Room Air 09/10/17 08:55 3 09/07/17 19:14 21 Laboratory Tests Test 09/10/17 05:20 09/10/17 16:00 White Blood Count 23.6 K/UL (4.8-10.8) *H Red Blood Count 2.72 M/UL (4.70-6.10) L Hemoglobin 8.8 G/DL (14.2-18.0) L Hematocrit 25.2 % (42.0-52.0) L Mean Corpuscular Volume 93 FL (80-99) Mean Corpuscular Hemoglobin 32.3 PG (27.0-31.0) H Mean Corpuscular Hemoglobin Concent 34.9 G/DL (32.0-36.0) Red Cell Distribution Width 11.3 % (11.6-14.8) L Platelet Count 681 K/UL (150-450) H Mean Platelet Volume 5.6 FL (6.5-10.1) L Neutrophils (%) (Auto) % (45.0-75.0) Lymphocytes (%) (Auto) % (20.0-45.0) Monocytes (%) (Auto) % (1.0-10.0) Eosinophils (%) (Auto) % (0.0-3.0) Basophils (%) (Auto) % (0.0-2.0) Differential Total Cells Counted 100 Neutrophils % (Manual) 80 % (45-75) H Lymphocytes % (Manual) 9 % (20-45) L Monocytes % (Manual) 10 % (1-10) Eosinophils % (Manual) 1 % (0-3) Basophils % (Manual) 0 % (0-2) Band Neutrophils 0 % (0-8) Platelet Estimate Increased H Platelet Morphology Normal Sodium Level 135 MMOL/L (136-145) L Potassium Level 4.7 MMOL/L (3.5-5.1) Chloride Level 96 MMOL/L (98-107) L Carbon Dioxide Level 23 MMOL/L (21-32) Anion Gap 16 mmol/L (5-15) H Blood Urea Nitrogen 100 mg/dL (7-18) H Creatinine 15.6 MG/DL (0.55-1.30) H Estimat Glomerular Filtration Rate 3.5 mL/min (>60) Glucose Level 97 MG/DL (74-106) Calcium Level 7.9 MG/DL (8.5-10.1) L Total Bilirubin 0.7 MG/DL (0.2-1.0) Aspartate Amino Transf (AST/SGOT) 90 U/L (15-37) H Alanine Aminotransferase (ALT/SGPT) 103 U/L (12-78) H Alkaline Phosphatase 103 U/L (46-116) Total Protein 5.7 G/DL (6.4-8.2) L Albumin 1.9 G/DL (3.4-5.0) L Globulin 3.8 g/dL Albumin/Globulin Ratio 0.5 (1.0-2.7) L Lipase 728 U/L (73-393) H Stool Occult Blood Pending Neurologic Exam Objective PHYSICAL EXAMINATION: GENERAL: He is a well-developed, well-nourished, gentleman, lying in bed. HEAD: Normocephalic and atraumatic. EENT: Examination benign. NECK: No neck rigidity was observed. NEUROLOGIC EXAMINATION: MENTAL STATUS EXAMINATION: He was drowsy but could be aroused, When aroused he was awake but not completely alert. He was oriented to self, hospital and August 2017 only. He was able to recall 3/3 words immediately, but could only remember 2/3 in 1 and 3 minutes. He was unable to remember any [place] presidents. SPEECH: He had no dysarthria. LANGUAGE: He had no aphasia. CRANIAL NERVE EXAMINATION: II: The visual dinh were intact on confrontation testing. III, IV & : The external ocular movements were present. The pupils were 3 mm in diameter and reactive sluggishly to light. V: He had normal facial sensations and the temporales, masseters and pterygoids functioned well. VII: He had normal facial expressions and no facial asymmetry. VIII: He was able to hear well and had no nystagmus. IX: The palate moved symmetrically on phonation. X: He had no hoarseness of voice. XI: The sternocleidomastoids and trapezii functioned well. XII: The tongue was in the midline. MOTOR SYSTEM: The tone was normal in all four extremities. Examination of muscle mass revealed no focal wasting. Examination of power revealed G 5/5 power in all muscle groups except for G 0/5 in the right ankle dorsiflexors and toe extensors, G 3+/5 in the right ankle plantar flexors and toe flexors, G 5-/5 in the left ankle dorsiflexors and toe extensors, and G 4/5 in the iliopsoas muscle bilaterally. SENSORY EXAMINATION: He was able to discern pin prick and light ouch but complained of altered sensations in the right peroneal distribution. REFLEXES: Trace+ and bilaterally symmetrical at the biceps, triceps, brachioradialis, and knees, 0 at both ankles. The plantar responses were flexor bilaterally. COORDINATION: He performed well on finger to nose testing. STANCE & GAIT: Could not be tested. Impression/Recommendations Diagnostic Impression 1. Mr. Enoch Stover is a 37-year-old, gentleman, of unknown handedness, who was found unconscious in a hotel room on 08/29/2017 after he had used multiple drugs. He was found to be possibly febrile, hypoglycemic, and breathing rapidly. Since then, he has been hospitalized and treated for sepsis. 2. He feels relatively well. He was undergoing HD when I went to see him. He was sleeping but he could be aroused. He feels that his mind is clearing up. He however is still forgetful. He is more confused and disoriented today. His appetite is better and he is eating more. He is still generally weak. He denies any new neurologic symptoms. 3. On neurological examination, at this time, he is drowsy but can be aroused. When aroused he is awake but not completely alert. He is disoriented to the exact date and name of the hospital. He does have problems with recent and remote memory. His speech and language are normal. His cranial nerves are also functioning normally. His motor function is relatively good he however has mild proximal lower extremity weakness, and in addition right > left distal lower extremity weakness with a severe right peroneal nerve dysfunction and now some right tibial nerve dysfunction. His sensations are also altered in the right peroneal distribution. His deep tendon reflexes are diminished but his plantar responses are flexor. He also does not demonstrate any definite focal or lateralizing neurological findings. 4. The CT scan of the brain performed on 08/29/2017 and repeated on 09/04/17 is benign for acute pathology. 5. Laboratory data obtained thus far revealed, on admission, his hemoglobin was elevated to 18.4, his WBC was normal at 8,500, but since then his WBCs have peaked to 17,200. His chemistry panel on admission revealed BUN elevated to 31 , creatinine elevated to 3.6, lactic acid elevated to 5.5, bilirubin elevated at 1.2, AST elevated at 478, ALT elevated to 159, CK elevated to greater than 10 ,000, troponin elevated at 1.01, BNP elevated to 2143. His urine toxicology screen was positive for opiates, amphetamines, cocaine, and marijuana. His INR was elevated at 1.2. His TSH is elevated at 4.72. The T3 is low but the T4 is normal. 6. The patient's history, neurological examination, laboratory data, and imaging studies are most compatible with an altered mental state due to a toxic metabolic encephalopathy. 7. The most likely etiology for the encephalopathy is the sepsis, possibly a period of hypoglycemia and ongoing multiple metabolic imbalances and the toxic imbalances. In addition the use of mind-altering drugs could have also been contributing. 8. His encephalopathy is still waxing and waning and is minimally worse today. 9. He has also developed bilateral mild proximal lower extremity weakness, and in addition right > left distal lower extremity weakness with a severe right peroneal nerve dysfunction and now some right tibial nerve dysfunction. His sensations are also altered in the right peroneal distribution. Recommendations 1. Continue present management. 2. Continue aggressive treatment of the patient's sepsis. 3. Aggressive management of toxic/metabolic imbalances. 4. AFO for right foot drop. 5. PT/OT. 6. Observe closely. Chris Ricketts M.D., M.S.P.H. CHRIS RICKETTS Sep 10, 2017 20:49
[2017-09-10] MEDS: Dyna-Hex 2% Top Sol 2oz TOPIC SCH (20:52)
--- NOTE | 2017-09-10 23:57 | Cardiology Progress Note ---
Assessment/Plan Assessment/Plan 1. Sepsis, no evidence of infective endocarditis. No bacteremia. Continue IV ABx per ID recs. 2. LUCRECIA due to rhabdomyolysis. 3. Shock liver 4. Acute pancreatitis with systemic inflammatory response disease. 5. Elevated troponin I level likely myocarditis, sepsis, or due to shock. 6. Sinus tachycardia, resolved, continue hydration. 7. Toxic metabolic encephalopathy Subjective Subjective No cardiac events. Lethargic s/p KATELYN this morning Objective Last 24 Hour Vital Signs Date Time Temp Pulse Resp B/P (MAP) Pulse Ox O2 Delivery O2 Flow Rate FiO2 09/10/17 21:50 147/70 09/10/17 21:00 Room Air 09/10/17 20:00 97.3 59 20 147/70 (95) 98 97.3 09/10/17 17:29 138/80 09/10/17 16:00 98.8 71 20 130/79 (96) 95 98.8 09/10/17 12:00 98.6 73 20 144/84 (104) 95 98.6 09/10/17 10:00 140/87 09/10/17 09:19 99 71 18 140/87 96 Room Air 99.0 09/10/17 09:14 68 21 121/76 96 Room Air 09/10/17 09:14 210.9 80 18 97 09/10/17 09:12 210.9 77 18 97 09/10/17 09:05 76 17 133/83 96 Room Air 09/10/17 09:00 73 18 127/78 96 Room Air 09/10/17 09:00 Room Air 09/10/17 08:55 99.4 77 18 140/80 97 Nasal Cannula 3 99.4 09/10/17 04:00 98.8 74 20 131/106 (114) 95 98.8 09/10/17 04:00 131/106 09/10/17 00:00 99.2 77 20 143/81 (101) 93 99.2 Intake and Output 09/09/17 09/10/17 19:00 07:00 Intake Total 55 ml Balance 55 ml IV Total 55 ml # Voids 2 # Bowel Movements 3 2D Echo: KATELYN: Nl LV systolic & diastolic function, Mild MR, No vegetations, Nl RVSP Laboratory Tests Test 09/10/17 05:20 09/10/17 16:00 White Blood Count 23.6 K/UL (4.8-10.8) *H Red Blood Count 2.72 M/UL (4.70-6.10) L Hemoglobin 8.8 G/DL (14.2-18.0) L Hematocrit 25.2 % (42.0-52.0) L Mean Corpuscular Volume 93 FL (80-99) Mean Corpuscular Hemoglobin 32.3 PG (27.0-31.0) H Mean Corpuscular Hemoglobin Concent 34.9 G/DL (32.0-36.0) Red Cell Distribution Width 11.3 % (11.6-14.8) L Platelet Count 681 K/UL (150-450) H Mean Platelet Volume 5.6 FL (6.5-10.1) L Neutrophils (%) (Auto) % (45.0-75.0) Lymphocytes (%) (Auto) % (20.0-45.0) Monocytes (%) (Auto) % (1.0-10.0) Eosinophils (%) (Auto) % (0.0-3.0) Basophils (%) (Auto) % (0.0-2.0) Differential Total Cells Counted 100 Neutrophils % (Manual) 80 % (45-75) H Lymphocytes % (Manual) 9 % (20-45) L Monocytes % (Manual) 10 % (1-10) Eosinophils % (Manual) 1 % (0-3) Basophils % (Manual) 0 % (0-2) Band Neutrophils 0 % (0-8) Platelet Estimate Increased H Platelet Morphology Normal Sodium Level 135 MMOL/L (136-145) L Potassium Level 4.7 MMOL/L (3.5-5.1) Chloride Level 96 MMOL/L (98-107) L Carbon Dioxide Level 23 MMOL/L (21-32) Anion Gap 16 mmol/L (5-15) H Blood Urea Nitrogen 100 mg/dL (7-18) H Creatinine 15.6 MG/DL (0.55-1.30) H Estimat Glomerular Filtration Rate 3.5 mL/min (>60) Glucose Level 97 MG/DL (74-106) Calcium Level 7.9 MG/DL (8.5-10.1) L Total Bilirubin 0.7 MG/DL (0.2-1.0) Aspartate Amino Transf (AST/SGOT) 90 U/L (15-37) H Alanine Aminotransferase (ALT/SGPT) 103 U/L (12-78) H Alkaline Phosphatase 103 U/L (46-116) Total Protein 5.7 G/DL (6.4-8.2) L Albumin 1.9 G/DL (3.4-5.0) L Globulin 3.8 g/dL Albumin/Globulin Ratio 0.5 (1.0-2.7) L Lipase 728 U/L (73-393) H Stool Occult Blood Pending Microbiology Date/Time Source Procedure Growth Status 09/08/17 17:20 Head Gram Stain - Final Resulted 09/08/17 17:20 Wound Culture - Preliminary Staphylococcus Sp Coag Neg Resulted Objective HEENT: Atraumatic and normocephalic. Pupils are equal, round, and reactive to light and accommodation. Scleral injection in both eyes. Dry mucosal membranes. NECK: JVP cannot be assessed. CVS: Normal S1, S2. Cannot appreciate any murmurs, gallops, or rubs. LUNGS: Clear to auscultation bilaterally. ABDOMEN: Soft, nontender, and nondistended. No hepatosplenomegaly. Positive bowel sounds. EXTREMITIES: No evidence of edema, clubbing, or cyanosis. Right lower extremity with decrease in both motor and sensory function. Jorge Mcdonough MD Sep 10, 2017 23:56
[2017-09-11] VITALS (16 sets, daily range): BP systolic 129–159; BP diastolic 67–92
[2017-09-11] MEDS: cloNIDine 0.2mg Tab ORAL SCH ×4 (04:48→21:56)
[2017-09-11] MEDS: Piperacillin/Tazobactam 2.25 GM in D5W 55 ML IVPB SCH ×3 (06:07→20:19)
[2017-09-11 07:27] LABS: HEMATOCRIT 25.9 % (42.0-52.0); HEMOGLOBIN 9.1 G/DL (14.2-18.0); MEAN CORPUSCULAR VOLUME 92 FL (80-99); PLATELET COUNT 807 K/UL (150-450); RED BLOOD COUNT 2.81 M/UL (4.70-6.10); RED CELL DISTRIBUTION WIDTH 11.2 % (11.6-14.8); WHITE BLOOD COUNT 21.3 K/UL (4.8-10.8)
[2017-09-11 07:31] LABS: PHOSPHORUS 8.8 MG/DL (2.5-4.9)
[2017-09-11 07:32] LABS: ALANINE AMINOTRANSFERASE 81 U/L (12-78); ALBUMIN 1.9 G/DL (3.4-5.0); ALBUMIN/GLOBULIN RATIO 0.5 (1.0-2.7); ALKALINE PHOSPHATASE 108 U/L (46-116); ANION GAP 15 mmol/L (5-15); ASPARTATE AMINO TRANSFERASE 72 U/L (15-37); BILIRUBIN,TOTAL 0.6 MG/DL (0.2-1.0); BLOOD UREA NITROGEN 72 mg/dL (7-18); CALCIUM 7.8 MG/DL (8.5-10.1); CARBON DIOXIDE 25 MMOL/L (21-32); CHLORIDE 93 MMOL/L (98-107); CREATININE 12.5 MG/DL (0.55-1.30); POTASSIUM 4.2 MMOL/L (3.5-5.1); SODIUM 133 MMOL/L (136-145)
--- NOTE | 2017-09-11 07:57 | Infectious Diseases Prog Note ---
Assessment/Plan Assessment/Plan Shock, SP Aspiration PNA -CXR 09/04 : Interim development of hazy interstitial and airspace disease in the right lung. This may to some extent be an artifact of less optimal inspiration, however. Interim extubation -CXR 09/03: Marked improvement of previously demonstrated bilateral pulmonary edema, over one day -CXR:More consolidated areas within the diffuse airspace opacity within the right lung and now possible right pleural effusion. The patient is rotated to the right. Interval increase in patchy left perihilar airspace opacities. May represent component of pulmonary edema or aspiration pneumonitis. -sp cx normal ann; repeat sp cx MSSA -legionella ag urine neg Rule out sepsis - Resolving - No new source found -u/a wbc 5-10, nit neg, leuk +1; cx neg -Bcx NTD (09/05 abd 09/07) -2d Echo (limited but no vegetations seen) - No Veg on KATELYN 09/10/17 - Tagged WBCs no focal uptake - MRI pelvis pending Fever/leukocytosis- Resolving - suspect reactive and 2ry to PNA; ?2ry to pancreatitis -Cdiff neg -v/duplex no DVT Drug overdose -UDS + opiates, amphetamines, THC, cocaine -+empty heroin needles (found on hotel room) -HIV ab sc and VL neg, RPR/FTA, GC/CL neg Multiorgan failure -LUCRECIA, - on HD -Transaminitis, (shock liver); improving -VDRF (airway protection)- now extubaetd 09/03 Lactic acidosis; resolved Rhabdomyolisis; improving3 Pancreatitis- drug induced -neg alcohol levels Encephalopathy - 2ry to above- r.o ischemia, r/o abscess (fever, IVDA +); much improved -CT head 09/04: Unusual scalp contusion, new since prior study 08/29/2017. No evidence of underlying calvarial trauma. Negative for acute intracranial bleed or mass effect -CT head 08/29: Limited exam due to motion artifact. No gross acute intracranial bleed or mass effect Hep C +; VL pending -ABD US: Gallbladder sludge. Negative for gallstones or dilated ducts. Equivocal increased hepatic echogenicity, if real could indicate hepatocellular disease such as fatty change. Borderline hepatomegaly. Mildly increased renal echogenicity, could indicate medical renal disease. Correlate with renal function tests. Left pleural effusion -Hep A and B immune Plan: -Continue empiric IV Vanco and Zosyn #6 (abx d#10) and add IV Micafungin #4 to cover for fungemia given prolonged abx and central line -09/06 SP IV Ancef #4 -09/04 SP IV Azithromycin #3 -09/03 SP Zosyn #6 - f/u MRI pelvis -Monitor CBC/CMP, temperatures -aspiration precautions -Neuro,c ardio, renal, GI f/u Patient due to have permacath placed. As his sepsis is resolving without evidence for bacteremia or other active untreated infection at this time placement is reasonable. ID can not grantee that occult infection that could affect the line in the future. Discussed with radiologist. Dr. Blandon Subjective Allergies: Coded Allergies: NO KNOWN ALLERGIES (Verified Allergy, Unknown, 09/02/17) Subjective Patient reports that could likely stay still for MRI today. No N/V/D or fever per patient. Objective Vital Signs Last 24 Hour Vital Signs Date Time Temp Pulse Resp B/P (MAP) Pulse Ox O2 Delivery O2 Flow Rate FiO2 09/11/17 04:48 140/78 09/11/17 04:00 97.5 74 20 142/80 (100) 97 97.5 09/11/17 00:00 97.5 83 20 140/78 (98) 98 97.5 09/10/17 21:50 147/70 09/10/17 21:00 Room Air 09/10/17 20:00 97.3 59 20 147/70 (95) 98 97.3 09/10/17 17:29 138/80 09/10/17 16:00 98.8 71 20 130/79 (96) 95 98.8 09/10/17 12:00 98.6 73 20 144/84 (104) 95 98.6 09/10/17 10:00 140/87 09/10/17 09:19 99 71 18 140/87 96 Room Air 99.0 09/10/17 09:14 68 21 121/76 96 Room Air 09/10/17 09:14 210.9 80 18 97 09/10/17 09:12 210.9 77 18 97 09/10/17 09:05 76 17 133/83 96 Room Air 09/10/17 09:00 73 18 127/78 96 Room Air 09/10/17 09:00 Room Air 09/10/17 08:55 99.4 77 18 140/80 97 Nasal Cannula 3 99.4 Height (Feet): 5 Height (Inches): 5.00 Weight (Pounds): 209 Objective General: Awake and talking, Tired, Poor insight HEENT: NCAT, MMM, EOMI, PERRL Heart: RRR, no murmurs, right HD line in place Lungs: CTA x2, No W/C ABD: S+D, ND, BS+ Extremity no edema or cellulitis Microbiology Date/Time Source Procedure Growth Status 09/08/17 17:20 Head Gram Stain - Final Resulted 09/08/17 17:20 Wound Culture - Preliminary Staphylococcus Sp Coag Neg Resulted Laboratory Tests Test 09/10/17 16:00 09/11/17 06:50 Stool Occult Blood Pending White Blood Count 21.3 K/UL (4.8-10.8) H Red Blood Count 2.81 M/UL (4.70-6.10) L Hemoglobin 9.1 G/DL (14.2-18.0) L Hematocrit 25.9 % (42.0-52.0) L Mean Corpuscular Volume 92 FL (80-99) Mean Corpuscular Hemoglobin 32.4 PG (27.0-31.0) H Mean Corpuscular Hemoglobin Concent 35.1 G/DL (32.0-36.0) Red Cell Distribution Width 11.2 % (11.6-14.8) L Platelet Count 807 K/UL (150-450) H Mean Platelet Volume 5.6 FL (6.5-10.1) L Neutrophils (%) (Auto) % (45.0-75.0) Lymphocytes (%) (Auto) % (20.0-45.0) Monocytes (%) (Auto) % (1.0-10.0) Eosinophils (%) (Auto) % (0.0-3.0) Basophils (%) (Auto) % (0.0-2.0) Neutrophils % (Manual) Pending Lymphocytes % (Manual) Pending Platelet Estimate Pending Platelet Morphology Pending Sodium Level 133 MMOL/L (136-145) L Potassium Level 4.2 MMOL/L (3.5-5.1) Chloride Level 93 MMOL/L (98-107) L Carbon Dioxide Level 25 MMOL/L (21-32) Anion Gap 15 mmol/L (5-15) Blood Urea Nitrogen 72 mg/dL (7-18) H Creatinine 12.5 MG/DL (0.55-1.30) H Estimat Glomerular Filtration Rate 4.5 mL/min (>60) Glucose Level 105 MG/DL (74-106) Calcium Level 7.8 MG/DL (8.5-10.1) L Phosphorus Level 8.8 MG/DL (2.5-4.9) H Magnesium Level 2.7 MG/DL (1.8-2.4) H Total Bilirubin 0.6 MG/DL (0.2-1.0) Aspartate Amino Transf (AST/SGOT) 72 U/L (15-37) H Alanine Aminotransferase (ALT/SGPT) 81 U/L (12-78) H Alkaline Phosphatase 108 U/L (46-116) Total Protein 5.9 G/DL (6.4-8.2) L Albumin 1.9 G/DL (3.4-5.0) L Globulin 4.0 g/dL Albumin/Globulin Ratio 0.5 (1.0-2.7) L Lipase 827 U/L (73-393) H Random Vancomycin Level 19.1 ug/mL Current Medications Medications (Trade) Dose Ordered Sig/Krystyna Route PRN Reason Start Time Stop Time Status Last Admin Dose Admin Acetaminophen (Tylenol) 650 mg Q4H PRN ORAL Fever (temp>100.5F) 09/05/17 18:30 10/05/17 18:29 09/08/17 21:44 Chlorhexidine Gluconate (Jyotsna-Hex 2%) 1 applic DAILY@1999 TOPIC 09/05/17 20:00 09/29/17 19:59 09/10/17 20:52 Clonidine HCl (Catapres tab) 0.1 mg Q6H ORAL 09/10/17 04:00 10/10/17 03:59 09/11/17 04:48 Dextrose (Dextrose 50%) 25 ml STAT PRN IV Hypoglycemia 09/05/17 18:30 10/05/17 18:29 Dextrose (Dextrose 50%) 50 ml STAT PRN IV Hypoglycemia 09/05/17 18:30 10/05/17 18:29 Famotidine (Pepcid) 20 mg DAILY ORAL 09/07/17 09:00 10/07/17 08:59 09/09/17 09:25 Heparin Sodium (Porcine) (Heparin 5000 units/ml) 5,000 units EVERY 12 HOURS SUBQ 09/05/17 21:00 09/28/17 20:59 09/10/17 20:54 Methadone HCl (Methadone HCl) 10 mg Q6H ORAL 09/10/17 12:00 09/16/17 21:00 09/11/17 06:07 Micafungin Sodium 100 mg/Sodium Chloride 110 ml @ 110 mls/hr Q24H IVPB 09/07/17 13:00 09/14/17 12:59 09/10/17 13:27 Mirtazapine (Remeron) 15 mg BEDTIME ORAL 09/05/17 21:00 10/04/17 20:59 09/10/17 20:52 Mupirocin (Bactroban Oint) 1 applic BID TOPIC 09/08/17 18:00 09/13/17 17:59 09/10/17 17:29 Nitroglycerin (Ntg) 0.4 mg Q5M PRN SL Prn Chest Pain 09/05/17 18:30 09/28/17 14:44 Piperacillin Sod/ Tazobactam Sod 2.25 gm/Dextrose 55 ml @ 110 mls/hr Q8HR IVPB 09/06/17 16:00 09/15/17 15:59 09/11/17 06:07 Quetiapine Fumarate (SEROquel) 50 mg Q4H PRN ORAL agitation 09/10/17 14:00 10/10/17 13:59 09/10/17 18:53 Sodium Bicarbonate 50 ml/ Dextrose/Sodium Chloride 1,000 ml @ 50 mls/hr Q20H IV 09/09/17 22:00 10/09/17 21:59 09/10/17 17:28 Vancomycin HCl (Vanco rx to dose) 1 ea DAILY PRN MISC Per rx protocol 09/06/17 15:00 10/06/17 14:59 Jean Cervantes M.D. Sep 11, 2017 07:57
--- NOTE | 2017-09-11 08:46 | Pre-Procedure Note/Attestation ---
Pre-Procedure Note/Attestation Complete Prior to Procedure Planned Procedure: not applicable Procedure Narrative: permacath Indications for Procedure Pre-Operative Diagnosis: renal failure Attestation I attest that I discussed the nature of the procedure; its benefits; risks and complications; and alternatives (and the risks and benefits of such alternatives ), prior to the procedure, with the patient (or the patient's legal applications sales representative). I attest that, if there was a reasonable possibility of needing a blood transfusion, the patient (or the patient's legal applications sales representative) was given the [facility] standardized written summary, pursuant to the Dontrell Evangelista Blood Safety Act ([place] Health and Safety Code # 1645, as amended). I attest that I re-evaluated the patient just prior to the surgery and that there has been no change in the patient's H&P, except as documented below: Discussed by phone with pt's mother Brook Henry at 0845 on 09/11/17 Jan Blandon MD Sep 11, 2017 08:46
--- NOTE | 2017-09-11 08:56 | Nephrology Progress Note ---
Assessment/Plan Assessment 1. Acute rhabdomyolysis.(anuric ) 2. Hypocalcemia. 3. Hyperkalemia. 4. Lactic acidosis. 5. Shock liver. 6. History of multiple drug use. Plan continue bicarbonate drip dialysis dialysis monitoring renal function monitoring out put spoke to his sister and father regarding need for hemodialysis and cath placement they agreed on that Subjective Constitutional: Reports: no symptoms HEENT: Reports: no symptoms Genitourinary: Reports: no symptoms Neurologic/Psychiatric: Reports: no symptoms Subjective continue to have very low urine out put alert and awake Objective Objective Last 24 Hour Vital Signs Date Time Temp Pulse Resp B/P (MAP) Pulse Ox O2 Delivery O2 Flow Rate FiO2 09/11/17 08:00 97.3 82 18 131/89 (103) 94 97.3 09/11/17 04:48 140/78 09/11/17 04:00 97.5 74 20 142/80 (100) 97 97.5 09/11/17 00:00 97.5 83 20 140/78 (98) 98 97.5 09/10/17 21:50 147/70 09/10/17 21:00 Room Air 09/10/17 20:00 97.3 59 20 147/70 (95) 98 97.3 09/10/17 17:29 138/80 09/10/17 16:00 98.8 71 20 130/79 (96) 95 98.8 09/10/17 12:00 98.6 73 20 144/84 (104) 95 98.6 09/10/17 10:00 140/87 09/10/17 09:19 99 71 18 140/87 96 Room Air 99.0 09/10/17 09:14 68 21 121/76 96 Room Air 09/10/17 09:14 210.9 80 18 97 09/10/17 09:12 210.9 77 18 97 09/10/17 09:05 76 17 133/83 96 Room Air 09/10/17 09:00 73 18 127/78 96 Room Air 09/10/17 09:00 Room Air Intake and Output 09/10/17 09/11/17 19:00 07:00 Intake Total 350 ml 855 ml Output Total 0 ml Balance 350 ml 855 ml Intake Oral 250 ml IV Total 350 ml 605 ml Estimated Blood Loss 0 ml # Voids 1 2 Laboratory Tests 09/10/17 16:00: Stool Occult Blood [Pending] 09/11/17 06:50: White Blood Count 21.3H, Red Blood Count 2.81L, Hemoglobin 9.1L, Hematocrit 25.9L, Mean Corpuscular Volume 92, Mean Corpuscular Hemoglobin 32.4H, Mean Corpuscular Hemoglobin Concent 35.1, Red Cell Distribution Width 11.2L, Platelet Count 807H, Mean Platelet Volume 5.6L, Neutrophils (%) (Auto) , Lymphocytes (%) (Auto) , Monocytes (%) (Auto) , Eosinophils (%) (Auto) , Basophils (%) (Auto) , Differential Total Cells Counted 100, Neutrophils % ( Manual) 82H, Lymphocytes % (Manual) 7L, Monocytes % (Manual) 10, Eosinophils % ( Manual) 0, Basophils % (Manual) 0, Band Neutrophils 1, Platelet Estimate IncreasedH, Platelet Morphology Normal, Hypochromasia 2+, Anisocytosis 1+, Spherocytes 1+, Sodium Level 133L, Potassium Level 4.2, Chloride Level 93L, Carbon Dioxide Level 25, Anion Gap 15, Blood Urea Nitrogen 72H, Creatinine 12.5H , Estimat Glomerular Filtration Rate 4.5, Glucose Level 105, Calcium Level 7.8L , Phosphorus Level 8.8H, Magnesium Level 2.7H, Total Bilirubin 0.6, Aspartate Amino Transf (AST/SGOT) 72H, Alanine Aminotransferase (ALT/SGPT) 81H, Alkaline Phosphatase 108, Total Protein 5.9L, Albumin 1.9L, Globulin 4.0, Albumin/ Globulin Ratio 0.5L, Lipase 827H, Random Vancomycin Level 19.1 Height (Feet): 5 Height (Inches): 5.00 Weight (Pounds): 209 Objective HEAD AND NECK: No JVP. No LAD. G-tube is in place. Head is atraumatic and normocephalic. LUNGS: He has decreased breathing sounds on the both sides. CARDIAC: Regular rate and rhythm. S1 and S2. No murmur. No rub. ABDOMEN: Soft. Bowel sounds positive. EXTREMITIES: No edema. No clubbing. No cyanosis. Aixa Veloz MD Sep 11, 2017 08:56
[2017-09-11] MEDS: Heparin 5000 units/ml inj SUBQ SCH ×2 (08:57→20:20)
--- NOTE | 2017-09-11 10:25 | GI Progress Note ---
Assessment/Plan Problems: (1) Severe sepsis ICD Codes: A41.9 - Sepsis, unspecified organism; R65.20 - Severe sepsis without septic shock SNOMED: 48706484 (2) Rhabdomyolysis ICD Codes: M62.82 - Rhabdomyolysis SNOMED: 379484750 Qualifiers: Qualified Codes: T79.6XXA - Traumatic ischemia of muscle, initial encounter (3) Aspiration pneumonia ICD Codes: J69.0 - Pneumonitis due to inhalation of food and vomit SNOMED: 470677147 Qualifiers: Qualified Codes: J69.0 - Pneumonitis due to inhalation of food and vomit (4) Substance abuse ICD Codes: F19.10 - Other psychoactive substance abuse, uncomplicated SNOMED: 14893329 (5) Transaminitis ICD Codes: R74.0 - Nonspecific elevation of levels of transaminase and lactic acid dehydrogenase [LDH] SNOMED: 913878205, 756274863 Status: progressing Status Narrative Discussed with Dr. Chavez. Assessment/Plan Hep A immunity Hep C positive transaminitis >> downtrending cdiff negative elevated lipase regular diet, tolerating about 25% fu labs, lipase, trend LFTs supportive care ppi outpatient Hep C tx The patient was seen and examined at bedside and all new and available data was reviewed in the patients chart. I agree with the above findings, impression and plan. (Patient seen earlier today. Signature stamp does not reflect patient encounter time.). - Efrain Chavez MD Subjective Subjective urge to urinate Objective Last 24 Hour Vital Signs Date Time Temp Pulse Resp B/P (MAP) Pulse Ox O2 Delivery O2 Flow Rate FiO2 09/11/17 09:04 131/89 09/11/17 08:00 97.3 82 18 131/89 (103) 94 97.3 09/11/17 04:48 140/78 09/11/17 04:00 97.5 74 20 142/80 (100) 97 97.5 09/11/17 00:00 97.5 83 20 140/78 (98) 98 97.5 09/10/17 21:50 147/70 09/10/17 21:00 Room Air 09/10/17 20:00 97.3 59 20 147/70 (95) 98 97.3 09/10/17 17:29 138/80 09/10/17 16:00 98.8 71 20 130/79 (96) 95 98.8 09/10/17 12:00 98.6 73 20 144/84 (104) 95 98.6 Intake and Output 09/10/17 09/11/17 19:00 07:00 Intake Total 350 ml 855 ml Output Total 0 ml Balance 350 ml 855 ml Intake Oral 250 ml IV Total 350 ml 605 ml Estimated Blood Loss 0 ml # Voids 1 2 Laboratory Tests Test 09/10/17 16:00 09/11/17 06:50 Stool Occult Blood Pending White Blood Count 21.3 K/UL (4.8-10.8) H Red Blood Count 2.81 M/UL (4.70-6.10) L Hemoglobin 9.1 G/DL (14.2-18.0) L Hematocrit 25.9 % (42.0-52.0) L Mean Corpuscular Volume 92 FL (80-99) Mean Corpuscular Hemoglobin 32.4 PG (27.0-31.0) H Mean Corpuscular Hemoglobin Concent 35.1 G/DL (32.0-36.0) Red Cell Distribution Width 11.2 % (11.6-14.8) L Platelet Count 807 K/UL (150-450) H Mean Platelet Volume 5.6 FL (6.5-10.1) L Neutrophils (%) (Auto) % (45.0-75.0) Lymphocytes (%) (Auto) % (20.0-45.0) Monocytes (%) (Auto) % (1.0-10.0) Eosinophils (%) (Auto) % (0.0-3.0) Basophils (%) (Auto) % (0.0-2.0) Differential Total Cells Counted 100 Neutrophils % (Manual) 82 % (45-75) H Lymphocytes % (Manual) 7 % (20-45) L Monocytes % (Manual) 10 % (1-10) Eosinophils % (Manual) 0 % (0-3) Basophils % (Manual) 0 % (0-2) Band Neutrophils 1 % (0-8) Platelet Estimate Increased H Platelet Morphology Normal Hypochromasia 2+ Anisocytosis 1+ Spherocytes 1+ Sodium Level 133 MMOL/L (136-145) L Potassium Level 4.2 MMOL/L (3.5-5.1) Chloride Level 93 MMOL/L (98-107) L Carbon Dioxide Level 25 MMOL/L (21-32) Anion Gap 15 mmol/L (5-15) Blood Urea Nitrogen 72 mg/dL (7-18) H Creatinine 12.5 MG/DL (0.55-1.30) H Estimat Glomerular Filtration Rate 4.5 mL/min (>60) Glucose Level 105 MG/DL (74-106) Calcium Level 7.8 MG/DL (8.5-10.1) L Phosphorus Level 8.8 MG/DL (2.5-4.9) H Magnesium Level 2.7 MG/DL (1.8-2.4) H Total Bilirubin 0.6 MG/DL (0.2-1.0) Aspartate Amino Transf (AST/SGOT) 72 U/L (15-37) H Alanine Aminotransferase (ALT/SGPT) 81 U/L (12-78) H Alkaline Phosphatase 108 U/L (46-116) Total Protein 5.9 G/DL (6.4-8.2) L Albumin 1.9 G/DL (3.4-5.0) L Globulin 4.0 g/dL Albumin/Globulin Ratio 0.5 (1.0-2.7) L Lipase 827 U/L (73-393) H Random Vancomycin Level 19.1 ug/mL Height (Feet): 5 Height (Inches): 5.00 Weight (Pounds): 209 General Appearance: WD/WN, no apparent distress, alert, other - periods of confusion Cardiovascular: normal rate Respiratory/Chest: normal breath sounds, no respiratory distress Abdominal Exam: normal bowel sounds, non tender, soft Extremities: non-tender, other - BLE anikasarca Carlos Lopez NP Sep 11, 2017 10:25
--- NOTE | 2017-09-11 12:59 | General Progress Note ---
Assessment/Plan Problem List: (1) Substance abuse ICD Codes: F19.10 - Other psychoactive substance abuse, uncomplicated SNOMED: 56544092 (2) Severe sepsis ICD Codes: A41.9 - Sepsis, unspecified organism; R65.20 - Severe sepsis without septic shock SNOMED: 30873774 (3) LUCRECIA (acute kidney injury) ICD Codes: N17.9 - Acute kidney failure, unspecified SNOMED: 33463040 Status: progressing Assessment/Plan reviewed chart and labs amd meds dependence on pain meds manged by dr key sepsis afebrile Subjective ROS Limited/Unobtainable: Yes Allergies: Coded Allergies: NO KNOWN ALLERGIES (Verified Allergy, Unknown, 09/02/17) Objective Last 24 Hour Vital Signs Date Time Temp Pulse Resp B/P (MAP) Pulse Ox O2 Delivery O2 Flow Rate FiO2 09/11/17 12:12 97.2 72 18 133/67 (89) 97 97.2 09/11/17 09:04 131/89 09/11/17 09:00 Room Air 09/11/17 08:00 97.3 82 18 131/89 (103) 94 97.3 09/11/17 04:48 140/78 09/11/17 04:00 97.5 74 20 142/80 (100) 97 97.5 09/11/17 00:00 97.5 83 20 140/78 (98) 98 97.5 09/10/17 21:50 147/70 09/10/17 21:00 Room Air 09/10/17 20:00 97.3 59 20 147/70 (95) 98 97.3 09/10/17 17:29 138/80 09/10/17 16:00 98.8 71 20 130/79 (96) 95 98.8 Intake and Output 09/10/17 09/11/17 19:00 07:00 Intake Total 350 ml 855 ml Output Total 0 ml Balance 350 ml 855 ml Intake Oral 250 ml IV Total 350 ml 605 ml Estimated Blood Loss 0 ml # Voids 1 2 Laboratory Tests 09/10/17 16:00: Stool Occult Blood Negative 09/11/17 06:50: White Blood Count 21.3H, Red Blood Count 2.81L, Hemoglobin 9.1L, Hematocrit 25.9L, Mean Corpuscular Volume 92, Mean Corpuscular Hemoglobin 32.4H, Mean Corpuscular Hemoglobin Concent 35.1, Red Cell Distribution Width 11.2L, Platelet Count 807H, Mean Platelet Volume 5.6L, Neutrophils (%) (Auto) , Lymphocytes (%) (Auto) , Monocytes (%) (Auto) , Eosinophils (%) (Auto) , Basophils (%) (Auto) , Differential Total Cells Counted 100, Neutrophils % ( Manual) 82H, Lymphocytes % (Manual) 7L, Monocytes % (Manual) 10, Eosinophils % ( Manual) 0, Basophils % (Manual) 0, Band Neutrophils 1, Platelet Estimate IncreasedH, Platelet Morphology Normal, Hypochromasia 2+, Anisocytosis 1+, Spherocytes 1+, Sodium Level 133L, Potassium Level 4.2, Chloride Level 93L, Carbon Dioxide Level 25, Anion Gap 15, Blood Urea Nitrogen 72H, Creatinine 12.5H , Estimat Glomerular Filtration Rate 4.5, Glucose Level 105, Calcium Level 7.8L , Phosphorus Level 8.8H, Magnesium Level 2.7H, Total Bilirubin 0.6, Aspartate Amino Transf (AST/SGOT) 72H, Alanine Aminotransferase (ALT/SGPT) 81H, Alkaline Phosphatase 108, Total Protein 5.9L, Albumin 1.9L, Globulin 4.0, Albumin/ Globulin Ratio 0.5L, Lipase 827H, Random Vancomycin Level 19.1 Height (Feet): 5 Height (Inches): 5.00 Weight (Pounds): 209 Cardiovascular: normal rate Respiratory/Chest: lungs clear Abdomen: soft Mode Dutta MD Sep 11, 2017 12:59
[2017-09-11] MEDS ORDERED: Propofol 200mg/20ml IV ONE (13:00)
[2017-09-11] MEDS ORDERED: Lidocaine 1% MPF 10mg/ml 5ml ONE (13:00)
--- NOTE | 2017-09-11 13:12 | Pulmonology Progress Note ---
Assessment/Plan Problems: (1) Respiratory failure Assessment & Plan: improved (2) LUCRECIA (acute kidney injury) (3) Severe sepsis (4) Overdose Assessment/Plan WBC scan done, was negative WBC still high, coming down slowly continue abx antifungal were added Subjective ROS Limited/Unobtainable: No Interval Events: pt is getting Mehurker catheter Allergies: Coded Allergies: NO KNOWN ALLERGIES (Verified Allergy, Unknown, 09/02/17) Objective Last 24 Hour Vital Signs Date Time Temp Pulse Resp B/P (MAP) Pulse Ox O2 Delivery O2 Flow Rate FiO2 09/11/17 12:12 97.2 72 18 133/67 (89) 97 97.2 09/11/17 09:04 131/89 09/11/17 09:00 Room Air 09/11/17 08:00 97.3 82 18 131/89 (103) 94 97.3 09/11/17 04:48 140/78 09/11/17 04:00 97.5 74 20 142/80 (100) 97 97.5 09/11/17 00:00 97.5 83 20 140/78 (98) 98 97.5 09/10/17 21:50 147/70 09/10/17 21:00 Room Air 09/10/17 20:00 97.3 59 20 147/70 (95) 98 97.3 09/10/17 17:29 138/80 09/10/17 16:00 98.8 71 20 130/79 (96) 95 98.8 Intake and Output 09/10/17 09/11/17 19:00 07:00 Intake Total 350 ml 855 ml Output Total 0 ml Balance 350 ml 855 ml Intake Oral 250 ml IV Total 350 ml 605 ml Estimated Blood Loss 0 ml # Voids 1 2 General Appearance: WD/WN HEENT: normocephalic, atraumatic Respiratory/Chest: chest wall non-tender, normal breath sounds Cardiovascular: normal peripheral pulses, regular rhythm Abdomen: normal bowel sounds, soft, non tender, no scars Extremities: no clubbing Skin: no lesions Microbiology Date/Time Source Procedure Growth Status 09/08/17 17:20 Head Gram Stain - Final Complete 09/08/17 17:20 Wound Culture - Final Staphylococcus Sp Coag Neg Complete Laboratory Tests 09/10/17 16:00: Stool Occult Blood Negative 09/11/17 06:50: White Blood Count 21.3H, Red Blood Count 2.81L, Hemoglobin 9.1L, Hematocrit 25.9L, Mean Corpuscular Volume 92, Mean Corpuscular Hemoglobin 32.4H, Mean Corpuscular Hemoglobin Concent 35.1, Red Cell Distribution Width 11.2L, Platelet Count 807H, Mean Platelet Volume 5.6L, Neutrophils (%) (Auto) , Lymphocytes (%) (Auto) , Monocytes (%) (Auto) , Eosinophils (%) (Auto) , Basophils (%) (Auto) , Differential Total Cells Counted 100, Neutrophils % ( Manual) 82H, Lymphocytes % (Manual) 7L, Monocytes % (Manual) 10, Eosinophils % ( Manual) 0, Basophils % (Manual) 0, Band Neutrophils 1, Platelet Estimate IncreasedH, Platelet Morphology Normal, Hypochromasia 2+, Anisocytosis 1+, Spherocytes 1+, Sodium Level 133L, Potassium Level 4.2, Chloride Level 93L, Carbon Dioxide Level 25, Anion Gap 15, Blood Urea Nitrogen 72H, Creatinine 12.5H , Estimat Glomerular Filtration Rate 4.5, Glucose Level 105, Calcium Level 7.8L , Phosphorus Level 8.8H, Magnesium Level 2.7H, Total Bilirubin 0.6, Aspartate Amino Transf (AST/SGOT) 72H, Alanine Aminotransferase (ALT/SGPT) 81H, Alkaline Phosphatase 108, Total Protein 5.9L, Albumin 1.9L, Globulin 4.0, Albumin/ Globulin Ratio 0.5L, Lipase 827H, Random Vancomycin Level 19.1 Current Medications Medications (Trade) Dose Ordered Sig/Krystyna Route PRN Reason Start Time Stop Time Status Last Admin Dose Admin Acetaminophen (Tylenol) 650 mg Q4H PRN ORAL Fever (temp>100.5F) 09/05/17 18:30 10/05/17 18:29 09/08/17 21:44 Chlorhexidine Gluconate (Jyotsna-Hex 2%) 1 applic DAILY@1999 TOPIC 09/05/17 20:00 09/29/17 19:59 09/10/17 20:52 Clonidine HCl (Catapres tab) 0.1 mg Q6H ORAL 09/10/17 04:00 10/10/17 03:59 09/11/17 09:04 Dextrose (Dextrose 50%) 25 ml STAT PRN IV Hypoglycemia 09/05/17 18:30 10/05/17 18:29 Dextrose (Dextrose 50%) 50 ml STAT PRN IV Hypoglycemia 09/05/17 18:30 10/05/17 18:29 Famotidine (Pepcid) 20 mg DAILY ORAL 09/07/17 09:00 10/07/17 08:59 09/11/17 09:01 Heparin Sodium (Porcine) (Heparin 5000 units/ml) 5,000 units EVERY 12 HOURS SUBQ 09/05/17 21:00 09/28/17 20:59 09/10/17 20:54 Methadone HCl (Methadone HCl) 10 mg Q6H ORAL 09/10/17 12:00 09/16/17 21:00 09/11/17 12:07 Micafungin Sodium 100 mg/Sodium Chloride 110 ml @ 110 mls/hr Q24H IVPB 09/07/17 13:00 09/14/17 12:59 09/10/17 13:27 Mirtazapine (Remeron) 15 mg BEDTIME ORAL 09/05/17 21:00 10/04/17 20:59 09/10/17 20:52 Mupirocin (Bactroban Oint) 1 applic BID TOPIC 09/08/17 18:00 09/13/17 17:59 09/11/17 09:01 Nitroglycerin (Ntg) 0.4 mg Q5M PRN SL Prn Chest Pain 09/05/17 18:30 09/28/17 14:44 Piperacillin Sod/ Tazobactam Sod 2.25 gm/Dextrose 55 ml @ 110 mls/hr Q8HR IVPB 09/06/17 16:00 09/15/17 15:59 09/11/17 06:07 Quetiapine Fumarate (SEROquel) 50 mg Q4H PRN ORAL agitation 09/10/17 14:00 10/10/17 13:59 09/11/17 09:19 Sodium Bicarbonate 50 ml/ Dextrose/Sodium Chloride 1,000 ml @ 50 mls/hr Q20H IV 09/09/17 22:00 10/09/17 21:59 09/10/17 17:28 Vancomycin HCl (Vanco rx to dose) 1 ea DAILY PRN MISC Per rx protocol 09/06/17 15:00 10/06/17 14:59 Arpita Andre MD Sep 11, 2017 13:12
--- NOTE | 2017-09-11 13:29 | Anethesia Preoperative Eval ---
Anesthesia Pre-op PMH/ROS General Date of Evaluation: Sep 11, 2017 Time of Evaluation: 13:00 Anesthesiologist: leonila ASA Score: ASA 4 Mallampati Score Class I : Soft palate, uvula, fauces, pillars visible Class II: Soft palate, uvula, fauces visible Class III: Soft palate, base of uvula visible Class IV: Only hard plate visible Mallampati Classification: Class II Surgeon: sterling nicole Diagnosis: need for av dialysis access Surgical Procedure: placement of perm a cath Anesthesia History: none Social History: drug use Family History: no anesthesia problems Allergies: Coded Allergies: NO KNOWN ALLERGIES (Verified Allergy, Unknown, 09/02/17) Medications: see eMAR Past Medical History Cardiovascular: Reports: AR, arrhythmia Pulmonary: Reports: other - aspiration pneumonia, respiratory failure Gastrointestinal/Genitourinary: Reports: other - remi, dialysis, shock liver, acute pancreatitis Neurologic/Psychiatric: Reports: other - polysubstance abuse Hematology/Immune: Reports: anemia, other - sepsis Musculoskeletal/Integumentary: Reports: other - rhabdomyolysis Anesthesia Pre-op Phys. Exam Physician Exam Last Vital Signs Date Time Temp Pulse Resp B/P (MAP) Pulse Ox O2 Delivery O2 Flow Rate FiO2 09/11/17 12:12 97.2 72 18 133/67 (89) 97 97.2 09/11/17 09:00 Room Air 09/10/17 08:55 3 09/07/17 19:14 21 Constitutional: NAD Neurologic: CN 2-12 intact Cardiovascular: RRR Respiratory: CTA Gastrointestinal: S/NT/ND Airway Exam Mallampati Score: Class II MO: full Neck: supple TMD: 2fb ROM: full Teeth: intact Anesthesia Pre-op A/P Labs Hematology Test 09/11/17 06:50 White Blood Count 21.3 K/UL (4.8-10.8) H Red Blood Count 2.81 M/UL (4.70-6.10) L Hemoglobin 9.1 G/DL (14.2-18.0) L Hematocrit 25.9 % (42.0-52.0) L Mean Corpuscular Volume 92 FL (80-99) Mean Corpuscular Hemoglobin 32.4 PG (27.0-31.0) H Mean Corpuscular Hemoglobin Concent 35.1 G/DL (32.0-36.0) Red Cell Distribution Width 11.2 % (11.6-14.8) L Platelet Count 807 K/UL (150-450) H Mean Platelet Volume 5.6 FL (6.5-10.1) L Neutrophils (%) (Auto) % (45.0-75.0) Lymphocytes (%) (Auto) % (20.0-45.0) Monocytes (%) (Auto) % (1.0-10.0) Eosinophils (%) (Auto) % (0.0-3.0) Basophils (%) (Auto) % (0.0-2.0) Differential Total Cells Counted 100 Neutrophils % (Manual) 82 % (45-75) H Lymphocytes % (Manual) 7 % (20-45) L Monocytes % (Manual) 10 % (1-10) Eosinophils % (Manual) 0 % (0-3) Basophils % (Manual) 0 % (0-2) Band Neutrophils 1 % (0-8) Platelet Estimate Increased H Platelet Morphology Normal Hypochromasia 2+ Anisocytosis 1+ Spherocytes 1+ Chemistry Test 09/11/17 06:50 Sodium Level 133 MMOL/L (136-145) L Potassium Level 4.2 MMOL/L (3.5-5.1) Chloride Level 93 MMOL/L (98-107) L Carbon Dioxide Level 25 MMOL/L (21-32) Anion Gap 15 mmol/L (5-15) Blood Urea Nitrogen 72 mg/dL (7-18) H Creatinine 12.5 MG/DL (0.55-1.30) H Estimat Glomerular Filtration Rate 4.5 mL/min (>60) Glucose Level 105 MG/DL (74-106) Calcium Level 7.8 MG/DL (8.5-10.1) L Phosphorus Level 8.8 MG/DL (2.5-4.9) H Magnesium Level 2.7 MG/DL (1.8-2.4) H Total Bilirubin 0.6 MG/DL (0.2-1.0) Aspartate Amino Transf (AST/SGOT) 72 U/L (15-37) H Alanine Aminotransferase (ALT/SGPT) 81 U/L (12-78) H Alkaline Phosphatase 108 U/L (46-116) Total Protein 5.9 G/DL (6.4-8.2) L Albumin 1.9 G/DL (3.4-5.0) L Globulin 4.0 g/dL Albumin/Globulin Ratio 0.5 (1.0-2.7) L Lipase 827 U/L (73-393) H Risk Assessment & Plan Assessment: [email or web address] Plan: mac Status Change Before Surgery: No Pre-Antibiotics Drug: Glenna Palacios MD Sep 11, 2017 13:29
[2017-09-11] MEDS ORDERED: DiphenhydrAMINE 50mg/ml Inj IVP PRN (13:45)
[2017-09-11] MEDS ORDERED: fentaNYL 100 mcg/2 mL IV PRN (13:45)
[2017-09-11] MEDS ORDERED: Midazolam 2mg/2ml Inj IVP PRN (13:45)
[2017-09-11] MEDS ORDERED: Atropine Inj 1mg/10ml Syr IV PRN (13:45)
[2017-09-11] MEDS ORDERED: Heparin Sod 1000 units/ml 10ml INJ SCH (14:00)
[2017-09-11] MEDS ORDERED: Heparin 2000 units/Ns 1000ml INJ SCH (14:00)
[2017-09-11] MEDS ORDERED: Lidocaine 2% 20mg/ml/Epi 0.005mg/ml 20ml vial INJ SCH (14:00)
--- NOTE | 2017-09-11 14:04 | Diagnostic Imaging Report ---
Indication: Reason For Exam: PAIN Technique: Coronal and axial T1 fast spin echo, coronal FSE IR, axial FSE STIR images of the pelvis Comparison: Reference made to CT scan dated 09/05/2017, 09/10/2017 Findings: Exam is considerably limited due to motion artifact The STIR images demonstrate extensive symmetric edema of essentially entirety of the buttock musculature, including the piriformis muscle. There is also edema of the pelvic sidewall musculature. There is a more discrete collection of fluid signal between the deep lateral aspect of the gluteus montez and the superficial aspect of the gluteus medius, which measures 3 x 3 x 7.3 cm, in retrospect identifiable as a subtle area of hypoattenuation on the recent CT. The iliopsoas, groin, and anterior thigh muscles do not appear edematous, nor does the abdominal wall musculature.. There is diffuse edema of the subcutaneous fat. There is scrotal edema. Due to motion artifact, the pelvic viscera are poorly visualized. No gross pelvic visceral abnormality demonstrated Impression: Diffuse symmetric edema of the bilateral buttock musculature, with sparing of the groin, anterior thigh, iliopsoas and abdominal wall musculature. This could be due to myositis, but absence of abnormal activity on recent white blood cell scan does not support this diagnosis. Alternatively, this could be edema of hemodynamic origin, presumably in view of the generalized edema of the surrounding subcutaneous fat. Why the other portions of the musculature are spared is uncertain, however. Discrete 3 x 3 x 7.3 cm fluid collection in the lateral left buttock musculature. While possibly an abscess, negative findings on recent tagged white blood cell scan indicate this is more likely a noninfected fluid collection
--- NOTE | 2017-09-11 14:59 | Immediate Post-Op Evaluation ---
Immediate Post-Op Evalulation Immediate Post-Op Evalulation Procedure: placement of perm a cath Date of Evaluation: Sep 11, 2017 Time of Evaluation: 14:49 IV Fluids: 500ml 0.9ns Blood Products: none Estimated Blood Loss: 35ml Blood Pressure Systolic: 155 Blood Pressure Diastolic: 81 Pulse Rate: 92 Respiratory Rate: 18 O2 Sat by Pulse Oximetry: 99 Temperature (Fahrenheit): 101.1 Pain Score (1-10): 0 Nausea: No Vomiting: No Complications none Patient Status: awake, reacts, patent Hydration Status: adequate Drug: Glenna Palacios MD Sep 11, 2017 14:59
--- NOTE | 2017-09-11 15:01 | 48 Hour Post Anesthesia Eval ---
Post Anesthesia Evaluation Procedure: placement of perm a cath Date of Evaluation: Sep 11, 2017 Time of Evaluation: 14:50 Blood Pressure Systolic: 155 0: 85 Pulse Rate: 93 Respiratory Rate: 18 Temperature (Fahrenheit): 101.1 O2 Sat by Pulse Oximetry: 99 Airway: patent Nausea: No Vomiting: No Pain Intensity: 0 Hydration Status: adequate Cardiopulmonary Status: stable Mental Status/LOC: patient returned to baseline Post-Anesthesia Complications: none Follow-up care needed: N/A Glenna Mason MD Sep 11, 2017 15:01
--- NOTE | 2017-09-11 15:13 | Diagnostic Imaging Report ---
Indications: Needs long-term dialysis access Technique: Informed consent obtained by phone from patient's mother. Procedural timeout performed. Total sterile technique, including sterile probe cover and sterile gel, sterile gloves, hand hygiene, hat, mask,, sterile gown, large sterile drape, and preparation with 2% chlorhexidine utilized. Local anesthesia with 1% lidocaine. Under real-time ultrasound guidance, puncture right internal jugular vein using 21-gauge micropuncture needle, passage 0.018 guidewire, exchange for 4 Kosovan micropuncture introducer. The guidewire was used to measure the appropriate catheter length, and was removed. The sheath was left in place. The subcutaneous tract was then anesthetized with 1% lidocaine. A chest dermatotomy was made . The tunneling device was used to pull a 14.5 Kosovan 23 cm BioFlo catheter through the subcutaneous tunnel to the neck dermatotomy. A guidewire was passed through the neck introducer into the inferior vena cava, and serial dilators were passed over it, followed by the introduction of a 14.5 Kosovan AirGuard peel-away sheath. The catheter was then introduced into the sheath, the peel-away sheath was removed. Digital radiograph documents satisfactory catheter tip position in the high right atrium, no kinking at the insertion site. Both catheter ports aspirated and flushed. Catheter was fixed to the skin. Patient tolerated procedure well without immediate complication. Total fluoroscopy time 0.5 minutes. Total dose area product 23 dGycm2 Total number images-1 Comparison: None. Findings: Completion radiograph documents satisfactory position and course of the catheter, catheter tip at the high right atrium. Impression: Successful placement of right transjugular tunneled dialysis catheter, as described above
--- NOTE | 2017-09-11 15:15 | Brief Operative Note ---
Immediate Post Operative Note Operative Note Pre-op Diagnosis: renal failure Procedure: R IJV permacath Post-op Diagnosis: same as pre-op Findings: consistent w/pre-op dx studies Surgeon: Ankur BLANDON Anesthesia: MAC Specimen: none Complications: none Condition: stable Fluids: none Estimated Blood Loss: none Drains: none Implant(s) used?: No Jan Blandon MD Sep 11, 2017 15:15
[2017-09-11] MEDS: [UNRECOGNIZED DRUG - OTHER] IV SCH (17:03)
[2017-09-11] MEDS: SODIUM BICARBONATE IV SCH (17:03)
[2017-09-11] MEDS: D5 IV SCH (17:03)
[2017-09-11] MEDS: Micafungin 100 MG in NS 110 ML IVPB SCH (17:04)
--- NOTE | 2017-09-11 17:04 | Cardiology Progress Note ---
Assessment/Plan Assessment/Plan 1. Sepsis, no evidence of infective endocarditis. No bacteremia. Continue IV ABx per ID recs. 2. LUCRECIA, s/p Mahurkar catheter placement. 3. Shock liver 4. Acute pancreatitis with systemic inflammatory response disease. 5. Elevated troponin I level likely myocarditis, sepsis, or due to shock. 6. Sinus tachycardia, resolved, continue hydration. 7. Toxic metabolic encephalopathy Subjective Subjective No cardiac events. s/p Mahurkar catheter placement Objective Last 24 Hour Vital Signs Date Time Temp Pulse Resp B/P (MAP) Pulse Ox O2 Delivery O2 Flow Rate FiO2 09/11/17 15:20 76 16 149/81 92 Room Air 09/11/17 15:15 90 16 149/77 92 Room Air 09/11/17 15:10 86 16 138/82 93 Room Air 09/11/17 15:05 80 16 131/80 92 Room Air 09/11/17 15:01 214.0 93 18 99 09/11/17 15:00 81 16 149/92 94 Room Air 09/11/17 14:59 214.0 92 18 99 09/11/17 14:55 89 16 151/84 98 Room Air 09/11/17 14:50 86 16 152/89 100 Simple Mask 10 09/11/17 14:45 83 16 159/81 100 Simple Mask 10 09/11/17 14:40 101.1 83 16 155/81 100 Simple Mask 10 101.1 09/11/17 14:07 86 16 09/11/17 12:12 97.2 72 18 133/67 (89) 97 97.2 09/11/17 09:04 131/89 09/11/17 09:00 Room Air 09/11/17 08:00 97.3 82 18 131/89 (103) 94 97.3 09/11/17 04:48 140/78 09/11/17 04:00 97.5 74 20 142/80 (100) 97 97.5 09/11/17 00:00 97.5 83 20 140/78 (98) 98 97.5 09/10/17 21:50 147/70 09/10/17 21:00 Room Air 09/10/17 20:00 97.3 59 20 147/70 (95) 98 97.3 09/10/17 17:29 138/80 Intake and Output 09/10/17 09/11/17 19:00 07:00 Intake Total 350 ml 855 ml Output Total 0 ml Balance 350 ml 855 ml Intake Oral 250 ml IV Total 350 ml 605 ml Estimated Blood Loss 0 ml # Voids 1 2 2D Echo: KATELYN: Nl LV systolic & diastolic function, Mild MR, No vegetations, Nl RVSP Laboratory Tests Test 09/11/17 06:50 White Blood Count 21.3 K/UL (4.8-10.8) H Red Blood Count 2.81 M/UL (4.70-6.10) L Hemoglobin 9.1 G/DL (14.2-18.0) L Hematocrit 25.9 % (42.0-52.0) L Mean Corpuscular Volume 92 FL (80-99) Mean Corpuscular Hemoglobin 32.4 PG (27.0-31.0) H Mean Corpuscular Hemoglobin Concent 35.1 G/DL (32.0-36.0) Red Cell Distribution Width 11.2 % (11.6-14.8) L Platelet Count 807 K/UL (150-450) H Mean Platelet Volume 5.6 FL (6.5-10.1) L Neutrophils (%) (Auto) % (45.0-75.0) Lymphocytes (%) (Auto) % (20.0-45.0) Monocytes (%) (Auto) % (1.0-10.0) Eosinophils (%) (Auto) % (0.0-3.0) Basophils (%) (Auto) % (0.0-2.0) Differential Total Cells Counted 100 Neutrophils % (Manual) 82 % (45-75) H Lymphocytes % (Manual) 7 % (20-45) L Monocytes % (Manual) 10 % (1-10) Eosinophils % (Manual) 0 % (0-3) Basophils % (Manual) 0 % (0-2) Band Neutrophils 1 % (0-8) Platelet Estimate Increased H Platelet Morphology Normal Hypochromasia 2+ Anisocytosis 1+ Spherocytes 1+ Sodium Level 133 MMOL/L (136-145) L Potassium Level 4.2 MMOL/L (3.5-5.1) Chloride Level 93 MMOL/L (98-107) L Carbon Dioxide Level 25 MMOL/L (21-32) Anion Gap 15 mmol/L (5-15) Blood Urea Nitrogen 72 mg/dL (7-18) H Creatinine 12.5 MG/DL (0.55-1.30) H Estimat Glomerular Filtration Rate 4.5 mL/min (>60) Glucose Level 105 MG/DL (74-106) Calcium Level 7.8 MG/DL (8.5-10.1) L Phosphorus Level 8.8 MG/DL (2.5-4.9) H Magnesium Level 2.7 MG/DL (1.8-2.4) H Total Bilirubin 0.6 MG/DL (0.2-1.0) Aspartate Amino Transf (AST/SGOT) 72 U/L (15-37) H Alanine Aminotransferase (ALT/SGPT) 81 U/L (12-78) H Alkaline Phosphatase 108 U/L (46-116) Total Protein 5.9 G/DL (6.4-8.2) L Albumin 1.9 G/DL (3.4-5.0) L Globulin 4.0 g/dL Albumin/Globulin Ratio 0.5 (1.0-2.7) L Lipase 827 U/L (73-393) H Random Vancomycin Level 19.1 ug/mL Microbiology Date/Time Source Procedure Growth Status 09/08/17 17:20 Head Gram Stain - Final Complete 09/08/17 17:20 Wound Culture - Final Staphylococcus Sp Coag Neg Complete Objective HEENT: Atraumatic and normocephalic. Pupils are equal, round, and reactive to light and accommodation. Scleral injection in both eyes. Dry mucosal membranes. NECK: JVP cannot be assessed. CVS: Normal S1, S2. Cannot appreciate any murmurs, gallops, or rubs. LUNGS: Clear to auscultation bilaterally. ABDOMEN: Soft, nontender, and nondistended. No hepatosplenomegaly. Positive bowel sounds. EXTREMITIES: No evidence of edema, clubbing, or cyanosis. Right lower extremity with decrease in both motor and sensory function. Jorge Mcdonough MD Sep 11, 2017 17:04
--- NOTE | 2017-09-11 18:42 | General Progress Note ---
Assessment/Plan Status: stable Assessment/Plan # Leukocytosis. --> Closely monitor for improvement. --> WBC imroving/trending downwards --> Cont IV abx --> 09/09 mild fever. # Anemia. --> Currently stable. No w/u required. Hgb above 11 --> Closely monitor. # Thrombocytosis. Likely reactive process an will improve. --> Closely monitor PLT count for improvement. # Transaminitis. Trending downwards. The time the note was entered does not necessarily correspond to the time the patient was seen. Subjective Date patient seen: Sep 11, 2017 ROS Limited/Unobtainable: Yes Hematologic/Lymphatic: Reports: anemia Allergies: Coded Allergies: NO KNOWN ALLERGIES (Verified Allergy, Unknown, 09/02/17) All Systems: reviewed and negative except above Subjective Pt awake and alert. S/P perm cath placement. WBC improving. MRI pelvis --> Diffuse symmetric edema of the bilateral buttock musculature, with sparing of the groin, anterior thigh, iliopsoas and abdominal wall musculature. HD scheduled for tomorrow. Objective Last 24 Hour Vital Signs Date Time Temp Pulse Resp B/P (MAP) Pulse Ox O2 Delivery O2 Flow Rate FiO2 09/11/17 16:00 97.9 83 20 141/86 (104) 94 97.9 09/11/17 15:20 76 16 149/81 92 Room Air 09/11/17 15:15 90 16 149/77 92 Room Air 09/11/17 15:10 86 16 138/82 93 Room Air 09/11/17 15:05 80 16 131/80 92 Room Air 09/11/17 15:01 214.0 93 18 99 09/11/17 15:00 81 16 149/92 94 Room Air 09/11/17 14:59 214.0 92 18 99 09/11/17 14:55 89 16 151/84 98 Room Air 09/11/17 14:50 86 16 152/89 100 Simple Mask 10 09/11/17 14:45 83 16 159/81 100 Simple Mask 10 09/11/17 14:40 101.1 83 16 155/81 100 Simple Mask 10 101.1 09/11/17 14:07 86 16 09/11/17 12:12 97.2 72 18 133/67 (89) 97 97.2 09/11/17 09:04 131/89 8/1/18 09:00 Room Air 09/11/17 08:00 97.3 82 18 131/89 (103) 94 97.3 09/11/17 04:48 140/78 09/11/17 04:00 97.5 74 20 142/80 (100) 97 97.5 09/11/17 00:00 97.5 83 20 140/78 (98) 98 97.5 09/10/17 21:50 147/70 09/10/17 21:00 Room Air 09/10/17 20:00 97.3 59 20 147/70 (95) 98 97.3 Intake and Output 09/10/17 09/11/17 19:00 07:00 Intake Total 350 ml 855 ml Output Total 0 ml Balance 350 ml 855 ml Intake Oral 250 ml IV Total 350 ml 605 ml Estimated Blood Loss 0 ml # Voids 1 2 Laboratory Tests 09/11/17 06:50: White Blood Count 21.3H, Red Blood Count 2.81L, Hemoglobin 9.1L, Hematocrit 25.9L, Mean Corpuscular Volume 92, Mean Corpuscular Hemoglobin 32.4H, Mean Corpuscular Hemoglobin Concent 35.1, Red Cell Distribution Width 11.2L, Platelet Count 807H, Mean Platelet Volume 5.6L, Neutrophils (%) (Auto) , Lymphocytes (%) (Auto) , Monocytes (%) (Auto) , Eosinophils (%) (Auto) , Basophils (%) (Auto) , Differential Total Cells Counted 100, Neutrophils % ( Manual) 82H, Lymphocytes % (Manual) 7L, Monocytes % (Manual) 10, Eosinophils % ( Manual) 0, Basophils % (Manual) 0, Band Neutrophils 1, Platelet Estimate IncreasedH, Platelet Morphology Normal, Hypochromasia 2+, Anisocytosis 1+, Spherocytes 1+, Sodium Level 133L, Potassium Level 4.2, Chloride Level 93L, Carbon Dioxide Level 25, Anion Gap 15, Blood Urea Nitrogen 72H, Creatinine 12.5H , Estimat Glomerular Filtration Rate 4.5, Glucose Level 105, Calcium Level 7.8L , Phosphorus Level 8.8H, Magnesium Level 2.7H, Total Bilirubin 0.6, Aspartate Amino Transf (AST/SGOT) 72H, Alanine Aminotransferase (ALT/SGPT) 81H, Alkaline Phosphatase 108, Total Protein 5.9L, Albumin 1.9L, Globulin 4.0, Albumin/ Globulin Ratio 0.5L, Lipase 827H, Random Vancomycin Level 19.1 Height (Feet): 5 Height (Inches): 5.00 Weight (Pounds): 209 General Appearance: no apparent distress EENT: PERRL/EOMI Neck: normal alignment Cardiovascular: normal peripheral pulses Respiratory/Chest: no respiratory distress Abdomen: soft Diogenes Flores MD Sep 11, 2017 18:42
--- NOTE | 2017-09-11 19:10 | Neurology Progress Note ---
Interim History Interim History Interim History Mr. Stover feels relatively well. He is bleeding from his HD access. He was sleeping but he could be aroused. He feels that his mind is clearing up. He however is still forgetful. He is more confused and disoriented today. His appetite is better and he is eating more. He is still generally weak. He denies any new neurologic symptoms. He specifically denies any weakness on one side or the other, numbness on one side or the other, problems with speech, problems with language, or problems with vision. Review of Systems Neuro Review of Systems Benign. Objective Physical Exam Last Vital Signs Date Time Temp Pulse Resp B/P (MAP) Pulse Ox O2 Delivery O2 Flow Rate FiO2 09/11/17 18:45 141/86 09/11/17 16:00 97.9 83 20 94 97.9 09/11/17 15:20 Room Air 09/11/17 14:50 10 09/07/17 19:14 21 Laboratory Tests Test 09/11/17 06:50 White Blood Count 21.3 K/UL (4.8-10.8) H Red Blood Count 2.81 M/UL (4.70-6.10) L Hemoglobin 9.1 G/DL (14.2-18.0) L Hematocrit 25.9 % (42.0-52.0) L Mean Corpuscular Volume 92 FL (80-99) Mean Corpuscular Hemoglobin 32.4 PG (27.0-31.0) H Mean Corpuscular Hemoglobin Concent 35.1 G/DL (32.0-36.0) Red Cell Distribution Width 11.2 % (11.6-14.8) L Platelet Count 807 K/UL (150-450) H Mean Platelet Volume 5.6 FL (6.5-10.1) L Neutrophils (%) (Auto) % (45.0-75.0) Lymphocytes (%) (Auto) % (20.0-45.0) Monocytes (%) (Auto) % (1.0-10.0) Eosinophils (%) (Auto) % (0.0-3.0) Basophils (%) (Auto) % (0.0-2.0) Differential Total Cells Counted 100 Neutrophils % (Manual) 82 % (45-75) H Lymphocytes % (Manual) 7 % (20-45) L Monocytes % (Manual) 10 % (1-10) Eosinophils % (Manual) 0 % (0-3) Basophils % (Manual) 0 % (0-2) Band Neutrophils 1 % (0-8) Platelet Estimate Increased H Platelet Morphology Normal Hypochromasia 2+ Anisocytosis 1+ Spherocytes 1+ Sodium Level 133 MMOL/L (136-145) L Potassium Level 4.2 MMOL/L (3.5-5.1) Chloride Level 93 MMOL/L (98-107) L Carbon Dioxide Level 25 MMOL/L (21-32) Anion Gap 15 mmol/L (5-15) Blood Urea Nitrogen 72 mg/dL (7-18) H Creatinine 12.5 MG/DL (0.55-1.30) H Estimat Glomerular Filtration Rate 4.5 mL/min (>60) Glucose Level 105 MG/DL (74-106) Calcium Level 7.8 MG/DL (8.5-10.1) L Phosphorus Level 8.8 MG/DL (2.5-4.9) H Magnesium Level 2.7 MG/DL (1.8-2.4) H Total Bilirubin 0.6 MG/DL (0.2-1.0) Aspartate Amino Transf (AST/SGOT) 72 U/L (15-37) H Alanine Aminotransferase (ALT/SGPT) 81 U/L (12-78) H Alkaline Phosphatase 108 U/L (46-116) Total Protein 5.9 G/DL (6.4-8.2) L Albumin 1.9 G/DL (3.4-5.0) L Globulin 4.0 g/dL Albumin/Globulin Ratio 0.5 (1.0-2.7) L Lipase 827 U/L (73-393) H Random Vancomycin Level 19.1 ug/mL Neurologic Exam Objective PHYSICAL EXAMINATION: GENERAL: He is a well-developed, well-nourished, gentleman, lying in bed. HEAD: Normocephalic and atraumatic. EENT: Examination benign. NECK: No neck rigidity was observed. NEUROLOGIC EXAMINATION: MENTAL STATUS EXAMINATION: He was drowsy but could be aroused. When aroused he was awake but not completely alert. He was oriented to self, and hospital only. He was able to recall 3/3 words immediately, but could only remember 2/3 in 1 and 3 minutes. He was unable to remember any [place] presidents. SPEECH: He had no dysarthria. LANGUAGE: He had no aphasia. CRANIAL NERVE EXAMINATION: II: The visual dinh were intact on confrontation testing. III, IV & : The external ocular movements were present. The pupils were 3 mm in diameter and reactive sluggishly to light. V: He had normal facial sensations and the temporales, masseters and pterygoids functioned well. VII: He had normal facial expressions and no facial asymmetry. VIII: He was able to hear well and had no nystagmus. IX: The palate moved symmetrically on phonation. X: He had no hoarseness of voice. XI: The sternocleidomastoids and trapezii functioned well. XII: The tongue was in the midline. MOTOR SYSTEM: The tone was normal in all four extremities. Examination of muscle mass revealed no focal wasting. Examination of power revealed G 5/5 power in all muscle groups except for G 0/5 in the right ankle dorsiflexors and toe extensors, G 3+/5 in the right ankle plantar flexors and toe flexors, G 5-/5 in the left ankle dorsiflexors and toe extensors, and G 4/5 in the iliopsoas muscle bilaterally. SENSORY EXAMINATION: He was able to discern pin prick and light ouch but complained of altered sensations in the right peroneal distribution. REFLEXES: Trace+ and bilaterally symmetrical at the biceps, triceps, brachioradialis, and knees, 0 at both ankles. The plantar responses were flexor bilaterally. COORDINATION: He performed well on finger to nose testing. STANCE & GAIT: Could not be tested. Impression/Recommendations Diagnostic Impression 1. Mr. Enoch Stover is a 37-year-old, gentleman, of unknown handedness, who was found unconscious in a hotel room on 08/29/2017 after he had used multiple drugs. He was found to be possibly febrile, hypoglycemic, and breathing rapidly. Since then, he has been hospitalized and treated for sepsis. 2. He feels relatively well. He is bleeding from his HD access. He was sleeping but he could be aroused. He feels that his mind is clearing up. He however is still forgetful. He is more confused and disoriented today. His appetite is better and he is eating more. He is still generally weak. He denies any new neurologic symptoms. 3. On neurological examination, at this time, he is drowsy but can be aroused. When aroused he is awake but not completely alert. He is disoriented to the date and name of the hospital. He does have problems with recent and remote memory. His speech and language are normal. His cranial nerves are also functioning normally. His motor function is relatively good he however has mild proximal lower extremity weakness, and in addition right > left distal lower extremity weakness with a severe right peroneal nerve dysfunction and now some right tibial nerve dysfunction. His sensations are also altered in the right peroneal distribution. His deep tendon reflexes are diminished but his plantar responses are flexor. He also does not demonstrate any definite focal or lateralizing neurological findings. 4. The CT scan of the brain performed on 08/29/2017 and repeated on 09/04/17 is benign for acute pathology. 5. Laboratory data obtained thus far revealed, on admission, his hemoglobin was elevated to 18.4, his WBC was normal at 8,500, but since then his WBCs have peaked to 17,200. His chemistry panel on admission revealed BUN elevated to 31 , creatinine elevated to 3.6, lactic acid elevated to 5.5, bilirubin elevated at 1.2, AST elevated at 478, ALT elevated to 159, CK elevated to greater than 10 ,000, troponin elevated at 1.01, BNP elevated to 2143. His urine toxicology screen was positive for opiates, amphetamines, cocaine, and marijuana. His INR was elevated at 1.2. His TSH is elevated at 4.72. The T3 is low but the T4 is normal. 6. The patient's history, neurological examination, laboratory data, and imaging studies are most compatible with an altered mental state due to a toxic metabolic encephalopathy. 7. The most likely etiology for the encephalopathy is the sepsis, possibly a period of hypoglycemia and ongoing multiple metabolic imbalances and the toxic imbalances. In addition the use of mind-altering drugs could have also been contributing. 8. His encephalopathy is still waxing and waning and is minimally worse today. 9. He has also developed bilateral mild proximal lower extremity weakness, and in addition right > left distal lower extremity weakness with a severe right peroneal nerve dysfunction and now some right tibial nerve dysfunction. His sensations are also altered in the right peroneal distribution. Recommendations 1. Continue present management. 2. Continue aggressive treatment of the patient's sepsis. 3. Aggressive management of toxic/metabolic imbalances. 4. AFO for right foot drop. 5. PT/OT. 6. Observe closely. Chris Ricketts M.D., M.S.[facility]. CHRIS RICKETTS Sep 11, 2017 19:10
[2017-09-11] MEDS: Dyna-Hex 2% Top Sol 2oz TOPIC SCH (20:19)
[2017-09-12] VITALS: BP 129/66
[2017-09-12 04:00] VITALS: BP 145/94
[2017-09-12] MEDS: Piperacillin/Tazobactam 2.25 GM in D5W 55 ML IVPB SCH ×3 (04:21→21:31)
[2017-09-12] MEDS: cloNIDine 0.2mg Tab ORAL SCH ×4 (04:40→23:52)
[2017-09-12 06:59] LABS: HEMOGLOBIN 8.2 G/DL (14.2-18.0); MEAN CORPUSCULAR VOLUME 93 FL (80-99); PLATELET COUNT 739 K/UL (150-450); RED BLOOD COUNT 2.58 M/UL (4.70-6.10); RED CELL DISTRIBUTION WIDTH 11.3 % (11.6-14.8)
[2017-09-12 07:20] LABS: ALANINE AMINOTRANSFERASE 62 U/L (12-78); ALBUMIN 1.8 G/DL (3.4-5.0); ALBUMIN/GLOBULIN RATIO 0.5 (1.0-2.7); ALKALINE PHOSPHATASE 100 U/L (46-116); ANION GAP 14 mmol/L (5-15); ASPARTATE AMINO TRANSFERASE 65 U/L (15-37); BILIRUBIN,TOTAL 0.6 MG/DL (0.2-1.0); BLOOD UREA NITROGEN 79 mg/dL (7-18); CALCIUM 7.3 MG/DL (8.5-10.1); CARBON DIOXIDE 27 MMOL/L (21-32); CHLORIDE 92 MMOL/L (98-107); CREATININE 13.7 MG/DL (0.55-1.30); POTASSIUM 4.3 MMOL/L (3.5-5.1); SODIUM 133 MMOL/L (136-145)
[2017-09-12 08:00] VITALS: BP 154/94
--- NOTE | 2017-09-12 08:58 | General Progress Note ---
Assessment/Plan Status: stable Assessment/Plan # Leukocytosis. --> Closely monitor for improvement. --> WBC improving/trending downwards --> Cont IV abx --> Currently afebrile. # Anemia. --> Currently stable. No w/u required. Hgb above 11 --> Closely monitor. # Thrombocytosis. Likely reactive process an will improve. --> Closely monitor PLT count for improvement. # Transaminitis. Trending downwards. The time the note was entered does not necessarily correspond to the time the patient was seen. Subjective Date patient seen: Sep 12, 2017 ROS Limited/Unobtainable: Yes Allergies: Coded Allergies: NO KNOWN ALLERGIES (Verified Allergy, Unknown, 09/02/17) All Systems: reviewed and negative except above Subjective Pt awake and confused. No acute events. Pt afebrile. Objective Last 24 Hour Vital Signs Date Time Temp Pulse Resp B/P (MAP) Pulse Ox O2 Delivery O2 Flow Rate FiO2 09/12/17 04:40 145/94 09/12/17 04:00 98.2 77 18 145/94 (111) 95 98.2 09/12/17 00:00 100.1 72 18 129/66 (87) 95 100.1 09/11/17 21:56 129/84 09/11/17 21:18 101.1 09/11/17 21:00 Room Air 09/11/17 20:19 102.1 09/11/17 20:15 102.1 88 17 129/84 (99) 94 102.1 09/11/17 18:45 141/86 09/11/17 16:00 97.9 83 20 141/86 (104) 94 97.9 09/11/17 15:20 76 16 149/81 92 Room Air 09/11/17 15:15 90 16 149/77 92 Room Air 09/11/17 15:10 86 16 138/82 93 Room Air 09/11/17 15:05 80 16 131/80 92 Room Air 09/11/17 15:01 214.0 93 18 99 09/11/17 15:00 81 16 149/92 94 Room Air 09/11/17 14:59 214.0 92 18 99 09/11/17 14:55 89 16 151/84 98 Room Air 09/11/17 14:50 86 16 152/89 100 Simple Mask 10 09/11/17 14:45 83 16 159/81 100 Simple Mask 10 09/11/17 14:40 101.1 83 16 155/81 100 Simple Mask 10 101.1 09/11/17 14:07 86 16 09/11/17 12:12 97.2 72 18 133/67 (89) 97 97.2 09/11/17 09:04 131/89 09/11/17 09:00 Room Air Intake and Output 09/11/17 09/12/17 19:00 07:00 Intake Total 850 ml 1010 ml Output Total 15 ml Balance 835 ml 1010 ml Intake Oral 250 ml 350 ml IV Total 600 ml 660 ml Estimated Blood Loss 15 ml # Voids 1 Laboratory Tests 09/12/17 05:41: White Blood Count 21.0H, Red Blood Count 2.58L, Hemoglobin 8.2L, Hematocrit 24.0L, Mean Corpuscular Volume 93, Mean Corpuscular Hemoglobin 31.8H, Mean Corpuscular Hemoglobin Concent 34.3, Red Cell Distribution Width 11.3L, Platelet Count 739H, Mean Platelet Volume 5.6L, Neutrophils (%) (Auto) , Lymphocytes (%) (Auto) , Monocytes (%) (Auto) , Eosinophils (%) (Auto) , Basophils (%) (Auto) , Differential Total Cells Counted 100, Neutrophils % ( Manual) 90H, Lymphocytes % (Manual) 5L, Monocytes % (Manual) 4, Eosinophils % ( Manual) 1, Basophils % (Manual) 0, Band Neutrophils 0, Platelet Estimate IncreasedH, Platelet Morphology Normal, Hypochromasia 2+, Spherocytes 1+, Sodium Level 133L, Potassium Level 4.3, Chloride Level 92L, Carbon Dioxide Level 27, Anion Gap 14, Blood Urea Nitrogen 79H, Creatinine 13.7H, Estimat Glomerular Filtration Rate 4.1, Glucose Level 271#H, Calcium Level 7.3L, Total Bilirubin 0.6, Aspartate Amino Transf (AST/SGOT) 65H, Alanine Aminotransferase ( ALT/SGPT) 62, Alkaline Phosphatase 100, Total Protein 5.7L, Albumin 1.8L, Globulin 3.9, Albumin/Globulin Ratio 0.5L Height (Feet): 5 Height (Inches): 5.00 Weight (Pounds): 214 General Appearance: no apparent distress EENT: PERRL/EOMI Neck: normal alignment Cardiovascular: normal peripheral pulses, irregularly irregular Respiratory/Chest: no respiratory distress Abdomen: soft Diogenes Flores MD Sep 12, 2017 08:58
[2017-09-12] MEDS: Heparin 5000 units/ml inj SUBQ SCH ×2 (09:00→21:33)
[2017-09-12] MEDS: SODIUM BICARBONATE IV SCH (09:24)
[2017-09-12] MEDS: D5 IV SCH (09:24)
[2017-09-12] MEDS: [UNRECOGNIZED DRUG - OTHER] IV SCH (09:24)
--- NOTE | 2017-09-12 10:31 | GI Progress Note ---
Assessment/Plan Problems: (1) Severe sepsis ICD Codes: A41.9 - Sepsis, unspecified organism; R65.20 - Severe sepsis without septic shock SNOMED: 43727507 (2) Rhabdomyolysis ICD Codes: M62.82 - Rhabdomyolysis SNOMED: 682844077 Qualifiers: Qualified Codes: T79.6XXA - Traumatic ischemia of muscle, initial encounter (3) Aspiration pneumonia ICD Codes: J69.0 - Pneumonitis due to inhalation of food and vomit SNOMED: 497609668 Qualifiers: Qualified Codes: J69.0 - Pneumonitis due to inhalation of food and vomit (4) Substance abuse ICD Codes: F19.10 - Other psychoactive substance abuse, uncomplicated SNOMED: 42277331 (5) Transaminitis ICD Codes: R74.0 - Nonspecific elevation of levels of transaminase and lactic acid dehydrogenase [LDH] SNOMED: 455788209, 013259556 Status: progressing Status Narrative Discussed with Dr. Chavez. Assessment/Plan Hep A immunity Hep C positive transaminitis >> downtrending, near normal levels cdiff negative stool culture >> gram negative bacillus elevated lipase OB stool negative regular diet, tolerating about 25% fu labs, lipase, trend LFTs abx supportive care ppi outpatient Hep C tx The patient was seen and examined at bedside and all new and available data was reviewed in the patients chart. I agree with the above findings, impression and plan. (Patient seen earlier today. Signature stamp does not reflect patient encounter time.). - Efrain Chavez MD Subjective Subjective urge to urinate Objective Last 24 Hour Vital Signs Date Time Temp Pulse Resp B/P (MAP) Pulse Ox O2 Delivery O2 Flow Rate FiO2 09/12/17 09:23 145/94 09/12/17 08:00 98.3 93 18 154/94 (114) 98 98.3 09/12/17 04:40 145/94 09/12/17 04:00 98.2 77 18 145/94 (111) 95 98.2 09/12/17 00:00 100.1 72 18 129/66 (87) 95 100.1 09/11/17 21:56 129/84 09/11/17 21:18 101.1 09/11/17 21:00 Room Air 09/11/17 20:19 102.1 09/11/17 20:15 102.1 88 17 129/84 (99) 94 102.1 09/11/17 18:45 141/86 09/11/17 16:00 97.9 83 20 141/86 (104) 94 97.9 09/11/17 15:20 76 16 149/81 92 Room Air 09/11/17 15:15 90 16 149/77 92 Room Air 09/11/17 15:10 86 16 138/82 93 Room Air 09/11/17 15:05 80 16 131/80 92 Room Air 09/11/17 15:01 214.0 93 18 99 09/11/17 15:00 81 16 149/92 94 Room Air 09/11/17 14:59 214.0 92 18 99 09/11/17 14:55 89 16 151/84 98 Room Air 09/11/17 14:50 86 16 152/89 100 Simple Mask 10 09/11/17 14:45 83 16 159/81 100 Simple Mask 10 09/11/17 14:40 101.1 83 16 155/81 100 Simple Mask 10 101.1 09/11/17 14:07 86 16 09/11/17 12:12 97.2 72 18 133/67 (89) 97 97.2 Intake and Output 09/11/17 09/12/17 19:00 07:00 Intake Total 850 ml 1010 ml Output Total 15 ml Balance 835 ml 1010 ml Intake Oral 250 ml 350 ml IV Total 600 ml 660 ml Estimated Blood Loss 15 ml # Voids 1 Laboratory Tests Test 09/12/17 05:41 White Blood Count 21.0 K/UL (4.8-10.8) H Red Blood Count 2.58 M/UL (4.70-6.10) L Hemoglobin 8.2 G/DL (14.2-18.0) L Hematocrit 24.0 % (42.0-52.0) L Mean Corpuscular Volume 93 FL (80-99) Mean Corpuscular Hemoglobin 31.8 PG (27.0-31.0) H Mean Corpuscular Hemoglobin Concent 34.3 G/DL (32.0-36.0) Red Cell Distribution Width 11.3 % (11.6-14.8) L Platelet Count 739 K/UL (150-450) H Mean Platelet Volume 5.6 FL (6.5-10.1) L Neutrophils (%) (Auto) % (45.0-75.0) Lymphocytes (%) (Auto) % (20.0-45.0) Monocytes (%) (Auto) % (1.0-10.0) Eosinophils (%) (Auto) % (0.0-3.0) Basophils (%) (Auto) % (0.0-2.0) Differential Total Cells Counted 100 Neutrophils % (Manual) 90 % (45-75) H Lymphocytes % (Manual) 5 % (20-45) L Monocytes % (Manual) 4 % (1-10) Eosinophils % (Manual) 1 % (0-3) Basophils % (Manual) 0 % (0-2) Band Neutrophils 0 % (0-8) Platelet Estimate Increased H Platelet Morphology Normal Hypochromasia 2+ Spherocytes 1+ Sodium Level 133 MMOL/L (136-145) L Potassium Level 4.3 MMOL/L (3.5-5.1) Chloride Level 92 MMOL/L (98-107) L Carbon Dioxide Level 27 MMOL/L (21-32) Anion Gap 14 mmol/L (5-15) Blood Urea Nitrogen 79 mg/dL (7-18) H Creatinine 13.7 MG/DL (0.55-1.30) H Estimat Glomerular Filtration Rate 4.1 mL/min (>60) Glucose Level 271 MG/DL (74-106) #H Calcium Level 7.3 MG/DL (8.5-10.1) L Total Bilirubin 0.6 MG/DL (0.2-1.0) Aspartate Amino Transf (AST/SGOT) 65 U/L (15-37) H Alanine Aminotransferase (ALT/SGPT) 62 U/L (12-78) Alkaline Phosphatase 100 U/L (46-116) Total Protein 5.7 G/DL (6.4-8.2) L Albumin 1.8 G/DL (3.4-5.0) L Globulin 3.9 g/dL Albumin/Globulin Ratio 0.5 (1.0-2.7) L Height (Feet): 5 Height (Inches): 5.00 Weight (Pounds): 214 General Appearance: WD/WN, no apparent distress, alert Cardiovascular: normal rate Respiratory/Chest: normal breath sounds, no respiratory distress Abdominal Exam: normal bowel sounds, non tender, soft Extremities: non-tender Carlos Lopez NP Sep 12, 2017 10:31
--- NOTE | 2017-09-12 10:57 | Neurology Progress Note ---
Interim History Interim History Interim History Mr. Stover feels better this morning. He is not bleeding from his HD access. He was easily aroused. He feels that his mind is clearing up. He however is still forgetful. He is less confused and better oriented today. His appetite is better and he is eating more. He is still generally weak. He denies any new neurologic symptoms. He specifically denies any weakness on one side or the other, numbness on one side or the other, problems with speech, problems with language, or problems with vision. Review of Systems Neuro Review of Systems Benign. Objective Physical Exam Last Vital Signs Date Time Temp Pulse Resp B/P (MAP) Pulse Ox O2 Delivery O2 Flow Rate FiO2 09/12/17 09:23 145/94 09/12/17 08:00 98.3 93 18 98 98.3 09/11/17 21:00 Room Air 09/11/17 14:50 10 09/07/17 19:14 21 Laboratory Tests Test 09/12/17 05:41 White Blood Count 21.0 K/UL (4.8-10.8) H Red Blood Count 2.58 M/UL (4.70-6.10) L Hemoglobin 8.2 G/DL (14.2-18.0) L Hematocrit 24.0 % (42.0-52.0) L Mean Corpuscular Volume 93 FL (80-99) Mean Corpuscular Hemoglobin 31.8 PG (27.0-31.0) H Mean Corpuscular Hemoglobin Concent 34.3 G/DL (32.0-36.0) Red Cell Distribution Width 11.3 % (11.6-14.8) L Platelet Count 739 K/UL (150-450) H Mean Platelet Volume 5.6 FL (6.5-10.1) L Neutrophils (%) (Auto) % (45.0-75.0) Lymphocytes (%) (Auto) % (20.0-45.0) Monocytes (%) (Auto) % (1.0-10.0) Eosinophils (%) (Auto) % (0.0-3.0) Basophils (%) (Auto) % (0.0-2.0) Differential Total Cells Counted 100 Neutrophils % (Manual) 90 % (45-75) H Lymphocytes % (Manual) 5 % (20-45) L Monocytes % (Manual) 4 % (1-10) Eosinophils % (Manual) 1 % (0-3) Basophils % (Manual) 0 % (0-2) Band Neutrophils 0 % (0-8) Platelet Estimate Increased H Platelet Morphology Normal Hypochromasia 2+ Spherocytes 1+ Sodium Level 133 MMOL/L (136-145) L Potassium Level 4.3 MMOL/L (3.5-5.1) Chloride Level 92 MMOL/L (98-107) L Carbon Dioxide Level 27 MMOL/L (21-32) Anion Gap 14 mmol/L (5-15) Blood Urea Nitrogen 79 mg/dL (7-18) H Creatinine 13.7 MG/DL (0.55-1.30) H Estimat Glomerular Filtration Rate 4.1 mL/min (>60) Glucose Level 271 MG/DL (74-106) #H Calcium Level 7.3 MG/DL (8.5-10.1) L Total Bilirubin 0.6 MG/DL (0.2-1.0) Aspartate Amino Transf (AST/SGOT) 65 U/L (15-37) H Alanine Aminotransferase (ALT/SGPT) 62 U/L (12-78) Alkaline Phosphatase 100 U/L (46-116) Total Protein 5.7 G/DL (6.4-8.2) L Albumin 1.8 G/DL (3.4-5.0) L Globulin 3.9 g/dL Albumin/Globulin Ratio 0.5 (1.0-2.7) L Neurologic Exam Objective PHYSICAL EXAMINATION: GENERAL: He is a well-developed, well-nourished, gentleman, lying in bed. HEAD: Normocephalic and atraumatic. EENT: Examination benign. NECK: No neck rigidity was observed. NEUROLOGIC EXAMINATION: MENTAL STATUS EXAMINATION: He was wawake and much more alert. He was oriented to [facility], [facility], and September only. He was able to recall 3/3 words immediately, but could only remember 2/3 in 1 and 3 minutes. He was able to remember Trump but could not remember other [place] presidents. SPEECH: He had no dysarthria. LANGUAGE: He had no aphasia. CRANIAL NERVE EXAMINATION: II: The visual dinh were intact on confrontation testing. III, IV & : The external ocular movements were present. The pupils were 3 mm in diameter and reactive sluggishly to light. V: He had normal facial sensations and the temporales, masseters and pterygoids functioned well. VII: He had normal facial expressions and no facial asymmetry. VIII: He was able to hear well and had no nystagmus. IX: The palate moved symmetrically on phonation. X: He had no hoarseness of voice. XI: The sternocleidomastoids and trapezii functioned well. XII: The tongue was in the midline. MOTOR SYSTEM: The tone was normal in all four extremities. Examination of muscle mass revealed no focal wasting. Examination of power revealed G 5/5 power in all muscle groups except for G 0/5 in the right ankle dorsiflexors and toe extensors, G 3+/5 in the right ankle plantar flexors and toe flexors, G 5-/5 in the left ankle dorsiflexors and toe extensors, and G 4/5 in the iliopsoas muscle bilaterally. SENSORY EXAMINATION: He was able to discern pin prick and light ouch but complained of altered sensations in the right peroneal distribution. REFLEXES: Trace+ and bilaterally symmetrical at the biceps, triceps, brachioradialis, and knees, 0 at both ankles. The plantar responses were flexor bilaterally. COORDINATION: He performed well on finger to nose testing. STANCE & GAIT: Could not be tested. Impression/Recommendations Diagnostic Impression 1. Mr. Enoch Stover is a 37-year-old, gentleman, of unknown handedness, who was found unconscious in a hotel room on 08/29/2017 after he had used multiple drugs. He was found to be possibly febrile, hypoglycemic, and breathing rapidly. Since then, he has been hospitalized and treated for sepsis. 2. He feels better this morning. He is not bleeding from his HD access. He was easily aroused. He feels that his mind is clearing up. He however is still forgetful. He is less confused and better oriented today. His appetite is better and he is eating more. He is still generally weak. He denies any new neurologic symptoms. 3. On neurological examination, at this time, he is awake and more alert. He is oriented to the month and name of the hospital. He does have problems with recent and remote memory. His speech and language are normal. His cranial nerves are also functioning normally. His motor function is relatively good he however has mild proximal lower extremity weakness, and in addition right > left distal lower extremity weakness with a severe right peroneal nerve dysfunction and now some right tibial nerve dysfunction. His sensations are also altered in the right peroneal distribution. His deep tendon reflexes are diminished but his plantar responses are flexor. He also does not demonstrate any definite focal or lateralizing neurological findings. 4. The CT scan of the brain performed on 08/29/2017 and repeated on 09/04/17 is benign for acute pathology. 5. Laboratory data obtained thus far revealed, on admission, his hemoglobin was elevated to 18.4, his WBC was normal at 8,500, but since then his WBCs have peaked to 17,200. His chemistry panel on admission revealed BUN elevated to 31 , creatinine elevated to 3.6, lactic acid elevated to 5.5, bilirubin elevated at 1.2, AST elevated at 478, ALT elevated to 159, CK elevated to greater than 10 ,000, troponin elevated at 1.01, BNP elevated to 2143. His urine toxicology screen was positive for opiates, amphetamines, cocaine, and marijuana. His INR was elevated at 1.2. His TSH is elevated at 4.72. The T3 is low but the T4 is normal. 6. The patient's history, neurological examination, laboratory data, and imaging studies are most compatible with an altered mental state due to a toxic metabolic encephalopathy. 7. The most likely etiology for the encephalopathy is the sepsis, possibly a period of hypoglycemia and ongoing multiple metabolic imbalances and the toxic imbalances. In addition the use of mind-altering drugs could have also been contributing. 8. His encephalopathy is still waxing and waning and is minimally worse today. 9. He has also developed bilateral mild proximal lower extremity weakness, and in addition right > left distal lower extremity weakness with a severe right peroneal nerve dysfunction and now some right tibial nerve dysfunction. His sensations are also altered in the right peroneal distribution. Recommendations 1. Continue present management. 2. Continue aggressive treatment of the patient's sepsis. 3. Aggressive management of toxic/metabolic imbalances. 4. AFO for right foot drop. 5. PT/OT. 6. Observe closely. Chris Ricketts M.D., M.S.[facility]. CHRIS RICKETTS Sep 12, 2017 10:57
[2017-09-12 12:00] VITALS: BP 129/83
[2017-09-12] MEDS: Micafungin 100 MG in NS 110 ML IVPB SCH (13:25)
--- NOTE | 2017-09-12 14:32 | Pulmonology Progress Note ---
Assessment/Plan Problems: (1) Respiratory failure Assessment & Plan: improved (2) LUCRECIA (acute kidney injury) (3) Severe sepsis (4) Overdose Assessment/Plan permacath is inserted on chronic HD now WBC scan done, was negative WBC still high, coming down slowly continue abx antifungal were added Subjective ROS Limited/Unobtainable: No Constitutional: Reports: no symptoms HEENT: Repors: no symptoms Respiratory: Reports: no symptoms Allergies: Coded Allergies: NO KNOWN ALLERGIES (Verified Allergy, Unknown, 09/02/17) Objective Last 24 Hour Vital Signs Date Time Temp Pulse Resp B/P (MAP) Pulse Ox O2 Delivery O2 Flow Rate FiO2 09/12/17 12:00 98.8 78 18 129/83 (98) 97 98.8 09/12/17 09:23 145/94 09/12/17 09:00 Room Air 09/12/17 08:00 98.3 93 18 154/94 (114) 98 98.3 09/12/17 04:40 145/94 09/12/17 04:00 98.2 77 18 145/94 (111) 95 98.2 09/12/17 00:00 100.1 72 18 129/66 (87) 95 100.1 09/11/17 21:56 129/84 09/11/17 21:18 101.1 09/11/17 21:00 Room Air 09/11/17 20:19 102.1 09/11/17 20:15 102.1 88 17 129/84 (99) 94 102.1 09/11/17 18:45 141/86 09/11/17 16:00 97.9 83 20 141/86 (104) 94 97.9 09/11/17 15:20 76 16 149/81 92 Room Air 09/11/17 15:15 90 16 149/77 92 Room Air 09/11/17 15:10 86 16 138/82 93 Room Air 09/11/17 15:05 80 16 131/80 92 Room Air 09/11/17 15:01 214.0 93 18 99 09/11/17 15:00 81 16 149/92 94 Room Air 09/11/17 14:59 214.0 92 18 99 09/11/17 14:55 89 16 151/84 98 Room Air 09/11/17 14:50 86 16 152/89 100 Simple Mask 10 09/11/17 14:45 83 16 159/81 100 Simple Mask 10 09/11/17 14:40 101.1 83 16 155/81 100 Simple Mask 10 101.1 Intake and Output 09/11/17 09/12/17 19:00 07:00 Intake Total 850 ml 1010 ml Output Total 15 ml Balance 835 ml 1010 ml Intake Oral 250 ml 350 ml IV Total 600 ml 660 ml Estimated Blood Loss 15 ml # Voids 1 General Appearance: WD/WN HEENT: normocephalic, atraumatic Respiratory/Chest: chest wall non-tender, lungs clear Cardiovascular: normal peripheral pulses, normal rate Abdomen: normal bowel sounds, no organomegaly Genitourinary: normal external genitalia Extremities: no clubbing Skin: no rash Laboratory Tests 09/12/17 05:41: White Blood Count 21.0H, Red Blood Count 2.58L, Hemoglobin 8.2L, Hematocrit 24.0L, Mean Corpuscular Volume 93, Mean Corpuscular Hemoglobin 31.8H, Mean Corpuscular Hemoglobin Concent 34.3, Red Cell Distribution Width 11.3L, Platelet Count 739H, Mean Platelet Volume 5.6L, Neutrophils (%) (Auto) , Lymphocytes (%) (Auto) , Monocytes (%) (Auto) , Eosinophils (%) (Auto) , Basophils (%) (Auto) , Differential Total Cells Counted 100, Neutrophils % ( Manual) 90H, Lymphocytes % (Manual) 5L, Monocytes % (Manual) 4, Eosinophils % ( Manual) 1, Basophils % (Manual) 0, Band Neutrophils 0, Platelet Estimate IncreasedH, Platelet Morphology Normal, Hypochromasia 2+, Spherocytes 1+, Sodium Level 133L, Potassium Level 4.3, Chloride Level 92L, Carbon Dioxide Level 27, Anion Gap 14, Blood Urea Nitrogen 79H, Creatinine 13.7H, Estimat Glomerular Filtration Rate 4.1, Glucose Level 271#H, Calcium Level 7.3L, Total Bilirubin 0.6, Aspartate Amino Transf (AST/SGOT) 65H, Alanine Aminotransferase ( ALT/SGPT) 62, Alkaline Phosphatase 100, Total Protein 5.7L, Albumin 1.8L, Globulin 3.9, Albumin/Globulin Ratio 0.5L Current Medications Medications (Trade) Dose Ordered Sig/Krystyna Route PRN Reason Start Time Stop Time Status Last Admin Dose Admin Acetaminophen (Tylenol) 650 mg Q4H PRN ORAL Fever (temp>100.5F) 09/05/17 18:30 10/05/17 18:29 09/11/17 20:19 Chlorhexidine Gluconate (Jyotsna-Hex 2%) 1 applic DAILY@2000 TOPIC 09/05/17 20:00 09/29/17 19:59 09/11/17 20:19 Clonidine HCl (Catapres tab) 0.1 mg Q6H ORAL 09/10/17 04:00 10/10/17 03:59 09/12/17 09:23 Dextrose (Dextrose 50%) 25 ml STAT PRN IV Hypoglycemia 09/05/17 18:30 10/05/17 18:29 Dextrose (Dextrose 50%) 50 ml STAT PRN IV Hypoglycemia 09/05/17 18:30 10/05/17 18:29 Famotidine (Pepcid) 20 mg DAILY ORAL 09/07/17 09:00 10/07/17 08:59 09/12/17 09:23 Heparin Sodium (Porcine) (Heparin 5000 units/ml) 5,000 units EVERY 12 HOURS SUBQ 09/05/17 21:00 09/28/17 20:59 09/10/17 20:54 Methadone HCl (Methadone HCl) 10 mg Q6H ORAL 09/10/17 12:00 09/16/17 21:00 09/12/17 12:50 Micafungin Sodium 100 mg/Sodium Chloride 110 ml @ 110 mls/hr Q24H IVPB 09/07/17 13:00 09/14/17 12:59 09/12/17 13:25 Mirtazapine (Remeron) 15 mg BEDTIME ORAL 09/05/17 21:00 10/04/17 20:59 09/11/17 20:19 Mupirocin (Bactroban Oint) 1 applic BID TOPIC 09/08/17 18:00 09/13/17 17:59 09/12/17 09:23 Nitroglycerin (Ntg) 0.4 mg Q5M PRN SL Prn Chest Pain 09/05/17 18:30 09/28/17 14:44 Piperacillin Sod/ Tazobactam Sod 2.25 gm/Dextrose 55 ml @ 110 mls/hr Q8HR IVPB 09/06/17 16:00 09/15/17 15:59 09/12/17 04:21 Quetiapine Fumarate (SEROquel) 50 mg Q4H PRN ORAL agitation 09/10/17 14:00 10/10/17 13:59 09/12/17 09:23 Sodium Bicarbonate 50 ml/ Dextrose/Sodium Chloride 1,000 ml @ 50 mls/hr Q20H IV 09/09/17 22:00 10/09/17 21:59 09/12/17 09:24 Vancomycin HCl (Vanco rx to dose) 1 ea DAILY PRN MISC Per rx protocol 09/06/17 15:00 10/06/17 14:59 Arpita Andre MD Sep 12, 2017 14:32
[2017-09-12 16:00] VITALS: BP 134/85
--- NOTE | 2017-09-12 16:48 | Cardiology Progress Note ---
Assessment/Plan Assessment/Plan 1. Sepsis, no evidence of infective endocarditis. No bacteremia. Continue IV ABx per ID recs. 2. LUCRECIA, s/p Mahurkar catheter placement. 3. Shock liver 4. Acute pancreatitis with systemic inflammatory response disease. 5. Elevated troponin I level likely myocarditis, sepsis, or due to shock. 6. Sinus tachycardia, resolved, continue hydration. 7. Toxic metabolic encephalopathy Subjective Subjective No cardiac events. s/p Mahurkar catheter placement Objective Last 24 Hour Vital Signs Date Time Temp Pulse Resp B/P (MAP) Pulse Ox O2 Delivery O2 Flow Rate FiO2 09/12/17 12:00 98.8 78 18 129/83 (98) 97 98.8 09/12/17 09:23 145/94 09/12/17 09:00 Room Air 09/12/17 08:00 98.3 93 18 154/94 (114) 98 98.3 09/12/17 04:40 145/94 09/12/17 04:00 98.2 77 18 145/94 (111) 95 98.2 09/12/17 00:00 100.1 72 18 129/66 (87) 95 100.1 09/11/17 21:56 129/84 09/11/17 21:18 101.1 09/11/17 21:00 Room Air 09/11/17 20:19 102.1 09/11/17 20:15 102.1 88 17 129/84 (99) 94 102.1 09/11/17 18:45 141/86 Intake and Output 09/11/17 09/12/17 19:00 07:00 Intake Total 850 ml 1010 ml Output Total 15 ml Balance 835 ml 1010 ml Intake Oral 250 ml 350 ml IV Total 600 ml 660 ml Estimated Blood Loss 15 ml # Voids 1 Laboratory Tests Test 09/12/17 05:41 White Blood Count 21.0 K/UL (4.8-10.8) H Red Blood Count 2.58 M/UL (4.70-6.10) L Hemoglobin 8.2 G/DL (14.2-18.0) L Hematocrit 24.0 % (42.0-52.0) L Mean Corpuscular Volume 93 FL (80-99) Mean Corpuscular Hemoglobin 31.8 PG (27.0-31.0) H Mean Corpuscular Hemoglobin Concent 34.3 G/DL (32.0-36.0) Red Cell Distribution Width 11.3 % (11.6-14.8) L Platelet Count 739 K/UL (150-450) H Mean Platelet Volume 5.6 FL (6.5-10.1) L Neutrophils (%) (Auto) % (45.0-75.0) Lymphocytes (%) (Auto) % (20.0-45.0) Monocytes (%) (Auto) % (1.0-10.0) Eosinophils (%) (Auto) % (0.0-3.0) Basophils (%) (Auto) % (0.0-2.0) Differential Total Cells Counted 100 Neutrophils % (Manual) 90 % (45-75) H Lymphocytes % (Manual) 5 % (20-45) L Monocytes % (Manual) 4 % (1-10) Eosinophils % (Manual) 1 % (0-3) Basophils % (Manual) 0 % (0-2) Band Neutrophils 0 % (0-8) Platelet Estimate Increased H Platelet Morphology Normal Hypochromasia 2+ Spherocytes 1+ Sodium Level 133 MMOL/L (136-145) L Potassium Level 4.3 MMOL/L (3.5-5.1) Chloride Level 92 MMOL/L (98-107) L Carbon Dioxide Level 27 MMOL/L (21-32) Anion Gap 14 mmol/L (5-15) Blood Urea Nitrogen 79 mg/dL (7-18) H Creatinine 13.7 MG/DL (0.55-1.30) H Estimat Glomerular Filtration Rate 4.1 mL/min (>60) Glucose Level 271 MG/DL (74-106) #H Calcium Level 7.3 MG/DL (8.5-10.1) L Total Bilirubin 0.6 MG/DL (0.2-1.0) Aspartate Amino Transf (AST/SGOT) 65 U/L (15-37) H Alanine Aminotransferase (ALT/SGPT) 62 U/L (12-78) Alkaline Phosphatase 100 U/L (46-116) Total Protein 5.7 G/DL (6.4-8.2) L Albumin 1.8 G/DL (3.4-5.0) L Globulin 3.9 g/dL Albumin/Globulin Ratio 0.5 (1.0-2.7) L Objective HEENT: Atraumatic and normocephalic. Pupils are equal, round, and reactive to light and accommodation. Scleral injection in both eyes. Dry mucosal membranes. NECK: JVP cannot be assessed. CVS: Normal S1, S2. Cannot appreciate any murmurs, gallops, or rubs. LUNGS: Clear to auscultation bilaterally. ABDOMEN: Soft, nontender, and nondistended. No hepatosplenomegaly. Positive bowel sounds. EXTREMITIES: No evidence of edema, clubbing, or cyanosis. Right lower extremity with decrease in both motor and sensory function. Jorge Mcdonough MD Sep 12, 2017 16:48
--- NOTE | 2017-09-12 17:40 | Infectious Diseases Prog Note ---
Assessment/Plan Assessment/Plan Shock, SP Aspiration PNA -CXR 09/04 : Interim development of hazy interstitial and airspace disease in the right lung. This may to some extent be an artifact of less optimal inspiration, however. Interim extubation -CXR 09/03: Marked improvement of previously demonstrated bilateral pulmonary edema, over one day -CXR:More consolidated areas within the diffuse airspace opacity within the right lung and now possible right pleural effusion. The patient is rotated to the right. Interval increase in patchy left perihilar airspace opacities. May represent component of pulmonary edema or aspiration pneumonitis. -sp cx normal ann; repeat sp cx MSSA -legionella ag urine neg Rule out sepsis - Resolving - No new source found -u/a wbc 5-10, nit neg, leuk +1; cx neg -Bcx NTD (09/05 abd 09/07) -2d Echo (limited but no vegetations seen) - No Veg on KATELYN 09/10/17 - Tagged WBCs no focal uptake - MRI pelvis 09/11/17 shows Diffuse symmetric edema of the bilateral buttock musculature , with sparing of the groin, anterior thigh, iliopsoas and abdominal wall musculature. This could be due to myositis, but absence of abnormal activity on recent white blood cell scan does not support this diagnosis. Alternatively, this could be edema of hemodynamic origin , presumably in view of the generalized edema of the surrounding subcutaneous fat. Why the other portions of the musculature are spared is uncertain, however. Discrete 3 x 3 x 7.3 cm fluid collection in the lateral left buttock musculature. While possibly an abscess, negative findings on recent tagged white blood cell scan indicate this is more likely a noninfected fluid collection Fever/leukocytosis- Resolving slowly - suspect reactive and 2ry to PNA; ?2ry to pancreatitis -Cdiff neg -v/duplex no DVT Drug overdose -UDS + opiates, amphetamines, THC, cocaine -+empty heroin needles (found on hotel room) -HIV ab sc and VL neg, RPR/FTA, GC/CL neg Multiorgan failure -LUCRECIA, - on HD -Transaminitis, (shock liver); improving -VDRF (airway protection)- now extubaetd 09/03 Lactic acidosis; resolved Rhabdomyolisis; improving3 Pancreatitis- drug induced -neg alcohol levels Encephalopathy - 2ry to above- r.o ischemia, r/o abscess (fever, IVDA +); much improved -CT head 09/04: Unusual scalp contusion, new since prior study 08/29/2017. No evidence of underlying calvarial trauma. Negative for acute intracranial bleed or mass effect -CT head 08/29: Limited exam due to motion artifact. No gross acute intracranial bleed or mass effect Hep C +; VL pending -ABD US: Gallbladder sludge. Negative for gallstones or dilated ducts. Equivocal increased hepatic echogenicity, if real could indicate hepatocellular disease such as fatty change. Borderline hepatomegaly. Mildly increased renal echogenicity, could indicate medical renal disease. Correlate with renal function tests. Left pleural effusion -Hep A and B immune Plan: -Continue empiric IV Vanco and Zosyn #7 (abx d#10) and add IV Micafungin #5/7 to cover for fungemia given prolonged abx and central line -09/06 SP IV Ancef #4 -09/04 SP IV Azithromycin #3 -09/03 SP Zosyn #6 -Consider IR drainage of buttock fluid collection if continued fever and leukocytosis -Monitor CBC/CMP, temperatures -aspiration precautions -Neuro,c ardio, renal, GI f/u Patient due to have permacath placed. As his sepsis is resolving without evidence for bacteremia or other active untreated infection at this time placement is reasonable. ID can not grantee that occult infection that could affect the line in the future. Discussed with radiologist. Dr. Blandon Subjective Allergies: Coded Allergies: NO KNOWN ALLERGIES (Verified Allergy, Unknown, 09/02/17) Subjective Got MRI yesterday Still with some whole body pain No N/V/D or fever per patient. Objective Vital Signs Last 24 Hour Vital Signs Date Time Temp Pulse Resp B/P (MAP) Pulse Ox O2 Delivery O2 Flow Rate FiO2 09/12/17 17:11 129/83 09/12/17 16:00 97.3 89 18 134/85 (101) 95 97.3 09/12/17 12:00 98.8 78 18 129/83 (98) 97 98.8 09/12/17 09:23 145/94 09/12/17 09:00 Room Air 09/12/17 08:00 98.3 93 18 154/94 (114) 98 98.3 09/12/17 04:40 145/94 09/12/17 04:00 98.2 77 18 145/94 (111) 95 98.2 09/12/17 00:00 100.1 72 18 129/66 (87) 95 100.1 09/11/17 21:56 129/84 09/11/17 21:18 101.1 09/11/17 21:00 Room Air 09/11/17 20:19 102.1 09/11/17 20:15 102.1 88 17 129/84 (99) 94 102.1 09/11/17 18:45 141/86 Height (Feet): 5 Height (Inches): 5.00 Weight (Pounds): 214 Objective General: Awake and talking, Poor insight, Getting HD HEENT: NCAT, MMM, EOMI, PERRL Heart: RRR, no murmurs, right HD line in place Lungs: CTA x2, No W/C, HD line right chest ABD: S+D, ND, BS+ Extremity no edema or cellulitis Laboratory Tests Test 09/12/17 05:41 White Blood Count 21.0 K/UL (4.8-10.8) H Red Blood Count 2.58 M/UL (4.70-6.10) L Hemoglobin 8.2 G/DL (14.2-18.0) L Hematocrit 24.0 % (42.0-52.0) L Mean Corpuscular Volume 93 FL (80-99) Mean Corpuscular Hemoglobin 31.8 PG (27.0-31.0) H Mean Corpuscular Hemoglobin Concent 34.3 G/DL (32.0-36.0) Red Cell Distribution Width 11.3 % (11.6-14.8) L Platelet Count 739 K/UL (150-450) H Mean Platelet Volume 5.6 FL (6.5-10.1) L Neutrophils (%) (Auto) % (45.0-75.0) Lymphocytes (%) (Auto) % (20.0-45.0) Monocytes (%) (Auto) % (1.0-10.0) Eosinophils (%) (Auto) % (0.0-3.0) Basophils (%) (Auto) % (0.0-2.0) Differential Total Cells Counted 100 Neutrophils % (Manual) 90 % (45-75) H Lymphocytes % (Manual) 5 % (20-45) L Monocytes % (Manual) 4 % (1-10) Eosinophils % (Manual) 1 % (0-3) Basophils % (Manual) 0 % (0-2) Band Neutrophils 0 % (0-8) Platelet Estimate Increased H Platelet Morphology Normal Hypochromasia 2+ Spherocytes 1+ Sodium Level 133 MMOL/L (136-145) L Potassium Level 4.3 MMOL/L (3.5-5.1) Chloride Level 92 MMOL/L (98-107) L Carbon Dioxide Level 27 MMOL/L (21-32) Anion Gap 14 mmol/L (5-15) Blood Urea Nitrogen 79 mg/dL (7-18) H Creatinine 13.7 MG/DL (0.55-1.30) H Estimat Glomerular Filtration Rate 4.1 mL/min (>60) Glucose Level 271 MG/DL (74-106) #H Calcium Level 7.3 MG/DL (8.5-10.1) L Total Bilirubin 0.6 MG/DL (0.2-1.0) Aspartate Amino Transf (AST/SGOT) 65 U/L (15-37) H Alanine Aminotransferase (ALT/SGPT) 62 U/L (12-78) Alkaline Phosphatase 100 U/L (46-116) Total Protein 5.7 G/DL (6.4-8.2) L Albumin 1.8 G/DL (3.4-5.0) L Globulin 3.9 g/dL Albumin/Globulin Ratio 0.5 (1.0-2.7) L Current Medications Medications (Trade) Dose Ordered Sig/Krystyna Route PRN Reason Start Time Stop Time Status Last Admin Dose Admin Acetaminophen (Tylenol) 650 mg Q4H PRN ORAL Fever (temp>100.5F) 09/05/17 18:30 10/05/17 18:29 09/11/17 20:19 Chlorhexidine Gluconate (Jyotsna-Hex 2%) 1 applic DAILY@1999 TOPIC 09/05/17 20:00 09/29/17 19:59 09/11/17 20:19 Clonidine HCl (Catapres tab) 0.1 mg Q6H ORAL 09/10/17 04:00 10/10/17 03:59 09/12/17 17:11 Dextrose (Dextrose 50%) 25 ml STAT PRN IV Hypoglycemia 09/05/17 18:30 10/05/17 18:29 Dextrose (Dextrose 50%) 50 ml STAT PRN IV Hypoglycemia 09/05/17 18:30 10/05/17 18:29 Famotidine (Pepcid) 20 mg DAILY ORAL 09/07/17 09:00 10/07/17 08:59 09/12/17 09:23 Heparin Sodium (Porcine) (Heparin 5000 units/ml) 5,000 units EVERY 12 HOURS SUBQ 09/05/17 21:00 09/28/17 20:59 09/10/17 20:54 Methadone HCl (Methadone HCl) 10 mg Q6H ORAL 09/10/17 12:00 09/16/17 21:00 09/12/17 17:12 Micafungin Sodium 100 mg/Sodium Chloride 110 ml @ 110 mls/hr Q24H IVPB 09/07/17 13:00 09/14/17 12:59 09/12/17 13:25 Mirtazapine (Remeron) 15 mg BEDTIME ORAL 09/05/17 21:00 10/04/17 20:59 09/11/17 20:19 Mupirocin (Bactroban Oint) 1 applic BID TOPIC 09/08/17 18:00 09/13/17 17:59 09/12/17 17:12 Nitroglycerin (Ntg) 0.4 mg Q5M PRN SL Prn Chest Pain 09/05/17 18:30 09/28/17 14:44 Piperacillin Sod/ Tazobactam Sod 2.25 gm/Dextrose 55 ml @ 110 mls/hr Q8HR IVPB 09/06/17 16:00 09/15/17 15:59 09/12/17 14:32 Quetiapine Fumarate (SEROquel) 50 mg Q4H PRN ORAL agitation 09/10/17 14:00 10/10/17 13:59 09/12/17 09:23 Sodium Bicarbonate 50 ml/ Dextrose/Sodium Chloride 1,000 ml @ 50 mls/hr Q20H IV 09/09/17 22:00 10/09/17 21:59 09/12/17 09:24 Vancomycin HCl (Vanco rx to dose) 1 ea DAILY PRN MISC Per rx protocol 09/06/17 15:00 10/06/17 14:59 Jean Cervantes M.D. Sep 12, 2017 17:40
[2017-09-12 20:00] VITALS: BP 161/67
--- NOTE | 2017-09-12 20:40 | General Progress Note ---
Assessment/Plan Assessment/Plan mdd polysubstance dependence opioid and benzo withdrawal -cont methadone increased the dose -cont clonidine/ decrease the dose -dc valuim prn -cont remeron -seroquel 50mg q4 prn -sroquel 25mg tid Subjective Date patient seen: Sep 12, 2017 Neurologic/Psychiatric: Reports: anxiety, depressed Allergies: Coded Allergies: NO KNOWN ALLERGIES (Verified Allergy, Unknown, 09/02/17) Subjective the pt gets agitated around 6:30 and dialysis the pt s nurse contacted me told to give another dose of Seroquel Objective Last 24 Hour Vital Signs Date Time Temp Pulse Resp B/P (MAP) Pulse Ox O2 Delivery O2 Flow Rate FiO2 09/12/17 20:13 Room Air 10.0 21 09/12/17 17:11 129/83 09/12/17 16:45 Room Air 10.0 21 09/12/17 16:00 97.3 89 18 134/85 (101) 95 97.3 09/12/17 12:00 98.8 78 18 129/83 (98) 97 98.8 09/12/17 09:23 145/94 09/12/17 09:00 Room Air 09/12/17 08:00 98.3 93 18 154/94 (114) 98 98.3 09/12/17 04:40 145/94 09/12/17 04:00 98.2 77 18 145/94 (111) 95 98.2 09/12/17 00:00 100.1 72 18 129/66 (87) 95 100.1 09/11/17 21:56 129/84 09/11/17 21:18 101.1 09/11/17 21:00 Room Air Intake and Output 09/11/17 09/12/17 19:00 07:00 Intake Total 850 ml 1010 ml Output Total 15 ml Balance 835 ml 1010 ml Intake Oral 250 ml 350 ml IV Total 600 ml 660 ml Estimated Blood Loss 15 ml # Voids 1 Laboratory Tests 09/12/17 05:41: White Blood Count 21.0H, Red Blood Count 2.58L, Hemoglobin 8.2L, Hematocrit 24.0L, Mean Corpuscular Volume 93, Mean Corpuscular Hemoglobin 31.8H, Mean Corpuscular Hemoglobin Concent 34.3, Red Cell Distribution Width 11.3L, Platelet Count 739H, Mean Platelet Volume 5.6L, Neutrophils (%) (Auto) , Lymphocytes (%) (Auto) , Monocytes (%) (Auto) , Eosinophils (%) (Auto) , Basophils (%) (Auto) , Differential Total Cells Counted 100, Neutrophils % ( Manual) 90H, Lymphocytes % (Manual) 5L, Monocytes % (Manual) 4, Eosinophils % ( Manual) 1, Basophils % (Manual) 0, Band Neutrophils 0, Platelet Estimate IncreasedH, Platelet Morphology Normal, Hypochromasia 2+, Spherocytes 1+, Sodium Level 133L, Potassium Level 4.3, Chloride Level 92L, Carbon Dioxide Level 27, Anion Gap 14, Blood Urea Nitrogen 79H, Creatinine 13.7H, Estimat Glomerular Filtration Rate 4.1, Glucose Level 271#H, Calcium Level 7.3L, Total Bilirubin 0.6, Aspartate Amino Transf (AST/SGOT) 65H, Alanine Aminotransferase ( ALT/SGPT) 62, Alkaline Phosphatase 100, Total Protein 5.7L, Albumin 1.8L, Globulin 3.9, Albumin/Globulin Ratio 0.5L Height (Feet): 5 Height (Inches): 5.00 Weight (Pounds): 214 General Appearance: no apparent distress, alert, agitated Leida Decker MD Sep 12, 2017 20:39
--- NOTE | 2017-09-12 21:17 | Cardiology Progress Note ---
Assessment/Plan Assessment/Plan 1. Sepsis, no evidence of infective endocarditis. No bacteremia. Continue IV ABx per ID recs. 2. LUCRECIA, s/p Mahurkar catheter placement. 3. Shock liver 4. Acute pancreatitis with systemic inflammatory response disease. 5. Elevated troponin I level likely myocarditis, sepsis, or due to shock. 6. Sinus tachycardia, resolved, continue hydration. 7. Toxic metabolic encephalopathy Subjective Subjective No cardiac events. Objective Last 24 Hour Vital Signs Date Time Temp Pulse Resp B/P (MAP) Pulse Ox O2 Delivery O2 Flow Rate FiO2 09/12/17 20:13 Room Air 10.0 21 09/12/17 17:11 129/83 09/12/17 16:45 Room Air 10.0 21 09/12/17 16:00 97.3 89 18 134/85 (101) 95 97.3 09/12/17 12:00 98.8 78 18 129/83 (98) 97 98.8 09/12/17 09:23 145/94 09/12/17 09:00 Room Air 09/12/17 08:00 98.3 93 18 154/94 (114) 98 98.3 09/12/17 04:40 145/94 09/12/17 04:00 98.2 77 18 145/94 (111) 95 98.2 09/12/17 00:00 100.1 72 18 129/66 (87) 95 100.1 09/11/17 21:56 129/84 09/11/17 21:18 101.1 Intake and Output 09/11/17 09/12/17 19:00 07:00 Intake Total 850 ml 1010 ml Output Total 15 ml Balance 835 ml 1010 ml Intake Oral 250 ml 350 ml IV Total 600 ml 660 ml Estimated Blood Loss 15 ml # Voids 1 2D Echo: KATELYN: Nl LV systolic & diastolic function, Mild MR, No vegetations, Nl RVSP Laboratory Tests Test 09/12/17 05:41 White Blood Count 21.0 K/UL (4.8-10.8) H Red Blood Count 2.58 M/UL (4.70-6.10) L Hemoglobin 8.2 G/DL (14.2-18.0) L Hematocrit 24.0 % (42.0-52.0) L Mean Corpuscular Volume 93 FL (80-99) Mean Corpuscular Hemoglobin 31.8 PG (27.0-31.0) H Mean Corpuscular Hemoglobin Concent 34.3 G/DL (32.0-36.0) Red Cell Distribution Width 11.3 % (11.6-14.8) L Platelet Count 739 K/UL (150-450) H Mean Platelet Volume 5.6 FL (6.5-10.1) L Neutrophils (%) (Auto) % (45.0-75.0) Lymphocytes (%) (Auto) % (20.0-45.0) Monocytes (%) (Auto) % (1.0-10.0) Eosinophils (%) (Auto) % (0.0-3.0) Basophils (%) (Auto) % (0.0-2.0) Differential Total Cells Counted 100 Neutrophils % (Manual) 90 % (45-75) H Lymphocytes % (Manual) 5 % (20-45) L Monocytes % (Manual) 4 % (1-10) Eosinophils % (Manual) 1 % (0-3) Basophils % (Manual) 0 % (0-2) Band Neutrophils 0 % (0-8) Platelet Estimate Increased H Platelet Morphology Normal Hypochromasia 2+ Spherocytes 1+ Sodium Level 133 MMOL/L (136-145) L Potassium Level 4.3 MMOL/L (3.5-5.1) Chloride Level 92 MMOL/L (98-107) L Carbon Dioxide Level 27 MMOL/L (21-32) Anion Gap 14 mmol/L (5-15) Blood Urea Nitrogen 79 mg/dL (7-18) H Creatinine 13.7 MG/DL (0.55-1.30) H Estimat Glomerular Filtration Rate 4.1 mL/min (>60) Glucose Level 271 MG/DL (74-106) #H Calcium Level 7.3 MG/DL (8.5-10.1) L Total Bilirubin 0.6 MG/DL (0.2-1.0) Aspartate Amino Transf (AST/SGOT) 65 U/L (15-37) H Alanine Aminotransferase (ALT/SGPT) 62 U/L (12-78) Alkaline Phosphatase 100 U/L (46-116) Total Protein 5.7 G/DL (6.4-8.2) L Albumin 1.8 G/DL (3.4-5.0) L Globulin 3.9 g/dL Albumin/Globulin Ratio 0.5 (1.0-2.7) L Objective HEENT: Atraumatic and normocephalic. Pupils are equal, round, and reactive to light and accommodation. Scleral injection in both eyes. Dry mucosal membranes. NECK: JVP cannot be assessed. CVS: Normal S1, S2. Cannot appreciate any murmurs, gallops, or rubs. LUNGS: Clear to auscultation bilaterally. ABDOMEN: Soft, nontender, and nondistended. No hepatosplenomegaly. Positive bowel sounds. EXTREMITIES: No evidence of edema, clubbing, or cyanosis. Right lower extremity with decrease in both motor and sensory function. Jorge Mcdonough MD Sep 12, 2017 21:17
--- NOTE | 2017-09-12 21:22 | General Progress Note ---
Assessment/Plan Problem List: (1) Substance abuse ICD Codes: F19.10 - Other psychoactive substance abuse, uncomplicated SNOMED: 68067391 (2) Severe sepsis ICD Codes: A41.9 - Sepsis, unspecified organism; R65.20 - Severe sepsis without septic shock SNOMED: 89706262 (3) LUCRECIA (acute kidney injury) ICD Codes: N17.9 - Acute kidney failure, unspecified SNOMED: 03181712 Status: unchanged Assessment/Plan reviewed chart and labs amd meds dependence on pain meds fluid collection close to buttock consulted dr ramirez for possible abscess collection afebrile Subjective ROS Limited/Unobtainable: Yes Allergies: Coded Allergies: NO KNOWN ALLERGIES (Verified Allergy, Unknown, 09/02/17) Objective Last 24 Hour Vital Signs Date Time Temp Pulse Resp B/P (MAP) Pulse Ox O2 Delivery O2 Flow Rate FiO2 09/12/17 20:13 Room Air 10.0 21 09/12/17 17:11 129/83 09/12/17 16:45 Room Air 10.0 21 09/12/17 16:00 97.3 89 18 134/85 (101) 95 97.3 09/12/17 12:00 98.8 78 18 129/83 (98) 97 98.8 09/12/17 09:23 145/94 09/12/17 09:00 Room Air 09/12/17 08:00 98.3 93 18 154/94 (114) 98 98.3 09/12/17 04:40 145/94 09/12/17 04:00 98.2 77 18 145/94 (111) 95 98.2 09/12/17 00:00 100.1 72 18 129/66 (87) 95 100.1 09/11/17 21:56 129/84 Intake and Output 09/11/17 09/12/17 19:00 07:00 Intake Total 850 ml 1010 ml Output Total 15 ml Balance 835 ml 1010 ml Intake Oral 250 ml 350 ml IV Total 600 ml 660 ml Estimated Blood Loss 15 ml # Voids 1 Laboratory Tests 09/12/17 05:41: White Blood Count 21.0H, Red Blood Count 2.58L, Hemoglobin 8.2L, Hematocrit 24.0L, Mean Corpuscular Volume 93, Mean Corpuscular Hemoglobin 31.8H, Mean Corpuscular Hemoglobin Concent 34.3, Red Cell Distribution Width 11.3L, Platelet Count 739H, Mean Platelet Volume 5.6L, Neutrophils (%) (Auto) , Lymphocytes (%) (Auto) , Monocytes (%) (Auto) , Eosinophils (%) (Auto) , Basophils (%) (Auto) , Differential Total Cells Counted 100, Neutrophils % ( Manual) 90H, Lymphocytes % (Manual) 5L, Monocytes % (Manual) 4, Eosinophils % ( Manual) 1, Basophils % (Manual) 0, Band Neutrophils 0, Platelet Estimate IncreasedH, Platelet Morphology Normal, Hypochromasia 2+, Spherocytes 1+, Sodium Level 133L, Potassium Level 4.3, Chloride Level 92L, Carbon Dioxide Level 27, Anion Gap 14, Blood Urea Nitrogen 79H, Creatinine 13.7H, Estimat Glomerular Filtration Rate 4.1, Glucose Level 271#H, Calcium Level 7.3L, Total Bilirubin 0.6, Aspartate Amino Transf (AST/SGOT) 65H, Alanine Aminotransferase ( ALT/SGPT) 62, Alkaline Phosphatase 100, Total Protein 5.7L, Albumin 1.8L, Globulin 3.9, Albumin/Globulin Ratio 0.5L Height (Feet): 5 Height (Inches): 5.00 Weight (Pounds): 214 Respiratory/Chest: lungs clear Abdomen: non tender Mode Dutta MD Sep 12, 2017 21:22
[2017-09-12] MEDS: Dyna-Hex 2% Top Sol 2oz TOPIC SCH (21:44)
[2017-09-13] VITALS (13 sets, daily range): BP systolic 137–159; BP diastolic 78–92
[2017-09-13] MEDS: cloNIDine 0.2mg Tab ORAL SCH ×4 (04:00→21:37)
[2017-09-13] MEDS: D5 IV SCH (05:52)
[2017-09-13] MEDS: SODIUM BICARBONATE IV SCH (05:52)
[2017-09-13] MEDS: [UNRECOGNIZED DRUG - OTHER] IV SCH (05:52)
[2017-09-13] MEDS: Piperacillin/Tazobactam 2.25 GM in D5W 55 ML IVPB SCH ×3 (05:53→21:36)
--- NOTE | 2017-09-13 07:44 | Infectious Diseases Prog Note ---
Assessment/Plan Assessment/Plan Shock, SP Aspiration PNA -CXR 09/04 : Interim development of hazy interstitial and airspace disease in the right lung. This may to some extent be an artifact of less optimal inspiration, however. Interim extubation -CXR 09/03: Marked improvement of previously demonstrated bilateral pulmonary edema, over one day -CXR:More consolidated areas within the diffuse airspace opacity within the right lung and now possible right pleural effusion. The patient is rotated to the right. Interval increase in patchy left perihilar airspace opacities. May represent component of pulmonary edema or aspiration pneumonitis. -sp cx normal ann; repeat sp cx MSSA -legionella ag urine neg Rule out sepsis - Resolving - No new source found -u/a wbc 5-10, nit neg, leuk +1; cx neg -Bcx NTD (09/05 abd 09/07) -2d Echo (limited but no vegetations seen) - No Veg on KATELYN 09/10/17 - Tagged WBCs no focal uptake - MRI pelvis 09/11/17 shows Diffuse symmetric edema of the bilateral buttock musculature , with sparing of the groin, anterior thigh, iliopsoas and abdominal wall musculature. This could be due to myositis, but absence of abnormal activity on recent white blood cell scan does not support this diagnosis. Alternatively, this could be edema of hemodynamic origin , presumably in view of the generalized edema of the surrounding subcutaneous fat. Why the other portions of the musculature are spared is uncertain, however. Discrete 3 x 3 x 7.3 cm fluid collection in the lateral left buttock musculature. While possibly an abscess, negative findings on recent tagged white blood cell scan indicate this is more likely a noninfected fluid collection Fever/leukocytosis- Resolving slowly - suspect reactive Rhabdo? and/or 2ry to PNA or 2ry to pancreatitis -Cdiff neg -v/duplex no DVT Drug overdose -UDS + opiates, amphetamines, THC, cocaine -+empty heroin needles (found on hotel room) -HIV ab sc and VL neg, RPR/FTA, GC/CL neg Multiorgan failure -LUCRECIA, - on HD -Transaminitis, (shock liver); improving -VDRF (airway protection)- now extubaetd 09/03 Lactic acidosis; resolved Rhabdomyolisis; improving3 Pancreatitis- drug induced -neg alcohol levels Encephalopathy - 2ry to above- r.o ischemia, r/o abscess (fever, IVDA +); much improved -CT head 09/04: Unusual scalp contusion, new since prior study 08/29/2017. No evidence of underlying calvarial trauma. Negative for acute intracranial bleed or mass effect -CT head 08/29: Limited exam due to motion artifact. No gross acute intracranial bleed or mass effect Hep C +; VL pending -ABD US: Gallbladder sludge. Negative for gallstones or dilated ducts. Equivocal increased hepatic echogenicity, if real could indicate hepatocellular disease such as fatty change. Borderline hepatomegaly. Mildly increased renal echogenicity, could indicate medical renal disease. Correlate with renal function tests. Left pleural effusion -Hep A and B immune Plan: -Continue empiric IV Vanco and Zosyn #8 (abx d#10) and add IV Micafungin #6/7 to cover for fungemia given prolonged abx and central line -09/06 SP IV Ancef #4 -09/04 SP IV Azithromycin #3 -09/03 SP Zosyn #6 -Consider IR drainage of buttock fluid collection if continued fever and leukocytosis -Monitor CBC/CMP, temperatures -aspiration precautions -Neuro,cardio, renal, GI f/u Subjective Allergies: Coded Allergies: NO KNOWN ALLERGIES (Verified Allergy, Unknown, 09/02/17) Subjective Got HD yesterday No Acute events No N/V/D or fever per patient. Objective Vital Signs Last 24 Hour Vital Signs Date Time Temp Pulse Resp B/P (MAP) Pulse Ox O2 Delivery O2 Flow Rate FiO2 09/13/17 05:52 151/86 09/13/17 04:00 97.6 86 18 151/86 (107) 95 97.6 09/13/17 04:00 151/86 09/13/17 00:00 97.9 89 18 148/78 (101) 96 97.9 09/12/17 23:52 161/67 09/12/17 22:29 97.9 09/12/17 21:30 100.6 09/12/17 21:00 Room Air 09/12/17 20:13 Room Air 10.0 21 09/12/17 20:00 100.6 82 18 161/67 (98) 96 100.6 09/12/17 17:11 129/83 09/12/17 16:45 Room Air 10.0 21 09/12/17 16:00 97.3 89 18 134/85 (101) 95 97.3 09/12/17 12:00 98.8 78 18 129/83 (98) 97 98.8 09/12/17 09:23 145/94 09/12/17 09:00 Room Air 09/12/17 08:00 98.3 93 18 154/94 (114) 98 98.3 Height (Feet): 5 Height (Inches): 5.00 Weight (Pounds): 206 Objective General: Awake and talking, Poor insight HEENT: NCAT, MMM, EOMI, PERRL Heart: RRR, no murmurs, right HD line in place Lungs: CTA x2, No W/C, HD line right chest ABD: S+D, ND, BS+ Extremity no edema or cellulitis Neuro: A/O x 4, Grossly nonfocal Current Medications Medications (Trade) Dose Ordered Sig/Krystyna Route PRN Reason Start Time Stop Time Status Last Admin Dose Admin Acetaminophen (Tylenol) 650 mg Q4H PRN ORAL Fever (temp>100.5F) 09/05/17 18:30 10/05/17 18:29 09/12/17 21:30 Chlorhexidine Gluconate (Jytosna-Hex 2%) 1 applic DAILY@1999 TOPIC 09/05/17 20:00 09/29/17 19:59 09/12/17 21:44 Clonidine HCl (Catapres tab) 0.1 mg Q6H ORAL 09/10/17 04:00 10/10/17 03:59 09/13/17 05:52 Dextrose (Dextrose 50%) 25 ml STAT PRN IV Hypoglycemia 09/05/17 18:30 10/05/17 18:29 Dextrose (Dextrose 50%) 50 ml STAT PRN IV Hypoglycemia 09/05/17 18:30 10/05/17 18:29 Famotidine (Pepcid) 20 mg DAILY ORAL 09/07/17 09:00 10/07/17 08:59 09/12/17 09:23 Heparin Sodium (Porcine) (Heparin 5000 units/ml) 5,000 units EVERY 12 HOURS SUBQ 09/05/17 21:00 09/28/17 20:59 09/12/17 21:33 Methadone HCl (Methadone HCl) 10 mg Q6H ORAL 09/10/17 12:00 09/16/17 21:00 09/13/17 05:51 Micafungin Sodium 100 mg/Sodium Chloride 110 ml @ 110 mls/hr Q24H IVPB 09/07/17 13:00 09/14/17 12:59 09/12/17 13:25 Mirtazapine (Remeron) 15 mg BEDTIME ORAL 09/05/17 21:00 10/04/17 20:59 09/12/17 21:29 Mupirocin (Bactroban Oint) 1 applic BID TOPIC 09/08/17 18:00 09/13/17 17:59 09/12/17 17:12 Nitroglycerin (Ntg) 0.4 mg Q5M PRN SL Prn Chest Pain 09/05/17 18:30 09/28/17 14:44 Piperacillin Sod/ Tazobactam Sod 2.25 gm/Dextrose 55 ml @ 110 mls/hr Q8HR IVPB 09/06/17 16:00 09/15/17 15:59 09/13/17 05:53 Quetiapine Fumarate (SEROquel) 25 mg TID ORAL 09/12/17 20:45 10/12/17 20:44 Quetiapine Fumarate (SEROquel) 50 mg Q4H PRN ORAL agitation 09/10/17 14:00 10/10/17 13:59 09/12/17 18:27 Sodium Bicarbonate 50 ml/ Dextrose/Sodium Chloride 1,000 ml @ 50 mls/hr Q20H IV 09/09/17 22:00 10/09/17 21:59 09/13/17 05:52 Vancomycin HCl (Vanco rx to dose) 1 ea DAILY PRN MISC Per rx protocol 09/06/17 15:00 10/06/17 14:59 Jean Cervantes M.D. Sep 13, 2017 07:44
[2017-09-13] MEDS: Heparin 5000 units/ml inj SUBQ SCH ×2 (09:00→21:35)
[2017-09-13 09:06] LABS: ANION GAP 10 mmol/L (5-15); BLOOD UREA NITROGEN 60 mg/dL (7-18); CALCIUM 7.6 MG/DL (8.5-10.1); CARBON DIOXIDE 31 MMOL/L (21-32); CHLORIDE 96 MMOL/L (98-107); CREATININE 11.3 MG/DL (0.55-1.30); SODIUM 136 MMOL/L (136-145)
--- NOTE | 2017-09-13 09:14 | General Progress Note ---
Assessment/Plan Status: unchanged Assessment/Plan # Leukocytosis. --> Closely monitor for improvement. --> 09/12: WBC 21.0 --> Cont IV abx --> Currently afebrile. # Anemia. --> Currently stable. No w/u required. Hgb above 11 --> Closely monitor. # Thrombocytosis. Likely reactive process an will improve. --> Closely monitor PLT count for improvement. # Transaminitis. Trending downwards. The time the note was entered does not necessarily correspond to the time the patient was seen. Subjective Date patient seen: Sep 13, 2017 ROS Limited/Unobtainable: Yes Hematologic/Lymphatic: Reports: anemia Allergies: Coded Allergies: NO KNOWN ALLERGIES (Verified Allergy, Unknown, 09/02/17) All Systems: reviewed and negative except above Subjective Pt awake and confused. No acute events. Pt afebrile. Family at bedside. Objective Last 24 Hour Vital Signs Date Time Temp Pulse Resp B/P (MAP) Pulse Ox O2 Delivery O2 Flow Rate FiO2 09/13/17 08:00 97.7 80 20 137/80 (99) 94 97.7 09/13/17 05:52 151/86 09/13/17 04:00 97.6 86 18 151/86 (107) 95 97.6 09/13/17 04:00 151/86 09/13/17 00:00 97.9 89 18 148/78 (101) 96 97.9 09/12/17 23:52 161/67 09/12/17 22:29 97.9 09/12/17 21:30 100.6 09/12/17 21:00 Room Air 09/12/17 20:13 Room Air 10.0 21 09/12/17 20:00 100.6 82 18 161/67 (98) 96 100.6 09/12/17 17:11 129/83 09/12/17 16:45 Room Air 10.0 21 09/12/17 16:00 97.3 89 18 134/85 (101) 95 97.3 09/12/17 12:00 98.8 78 18 129/83 (98) 97 98.8 09/12/17 09:23 145/94 Intake and Output 09/12/17 09/13/17 19:00 07:00 Intake Total 340 ml 55 ml Output Total 2300 ml Balance 340 ml -2245 ml Intake Oral 340 ml IV Total 55 ml Hemodialysis UF 2300 ml # Bowel Movements 4 2 Laboratory Tests 09/13/17 08:40: White Blood Count [Pending], Red Blood Count [Pending], Hemoglobin [Pending], Hematocrit [Pending], Mean Corpuscular Volume [Pending], Mean Corpuscular Hemoglobin [Pending], Mean Corpuscular Hemoglobin Concent [Pending], Red Cell Distribution Width [Pending], Platelet Count [Pending], Mean Platelet Volume [ Pending], Neutrophils (%) (Auto) [Pending], Lymphocytes (%) (Auto) [Pending], Monocytes (%) (Auto) [Pending], Eosinophils (%) (Auto) [Pending], Basophils (%) (Auto) [Pending], Sodium Level 136, Potassium Level 4.0, Chloride Level 96L, Carbon Dioxide Level 31, Anion Gap 10, Blood Urea Nitrogen 60H, Creatinine 11.3H , Estimat Glomerular Filtration Rate 5.1, Glucose Level 161#H, Calcium Level 7.6L, Lipase [Pending] Height (Feet): 5 Height (Inches): 5.00 Weight (Pounds): 206 General Appearance: no apparent distress, confused, agitated EENT: PERRL/EOMI Neck: normal alignment Cardiovascular: normal peripheral pulses Respiratory/Chest: no respiratory distress Abdomen: soft Diogenes Flores MD Sep 13, 2017 09:14
[2017-09-13 09:15] LABS: HEMATOCRIT 24.3 % (42.0-52.0); HEMOGLOBIN 8.2 G/DL (14.2-18.0); MEAN CORPUSCULAR VOLUME 93 FL (80-99); PLATELET COUNT 756 K/UL (150-450); RED BLOOD COUNT 2.62 M/UL (4.70-6.10); RED CELL DISTRIBUTION WIDTH 11.3 % (11.6-14.8)
[2017-09-13 09:17] LABS: WHITE BLOOD COUNT 22.5 K/UL (4.8-10.8)
--- NOTE | 2017-09-13 10:42 | General Progress Note ---
Progress Note Progress Note Surgery: 37M polysubstance abuse found down admitted for care and has been hospitalized since. Multiple medical problems since including renal insufficiency requiring HD, pancreatitis, rhabdo, please review chart. Continues to have intermittent fevers and persistent leukocytosis. recent pelvic MRI identified fluid collection. surgery called to evaluate. patient seen, chart reviewed, patient examined. Discrete 3 x 3 x 7.3 cm fluid collection in the lateral left buttock musculature. While possibly an abscess, negative findings on recent tagged white blood cell scan indicate this is more likely a noninfected fluid collection Images reviewed. exam benign. likely non infected fluid collection but given patients history, complex medical issues since admission, fevers, and persistent leukocytosis would benefit from fluid evaluation to ensure not infected. will see if possible for radiological image guided sample / drain of fluid collection. Vincent Schultz Sep 13, 2017 10:42
--- NOTE | 2017-09-13 10:50 | GI Progress Note ---
Assessment/Plan Problems: (1) Severe sepsis ICD Codes: A41.9 - Sepsis, unspecified organism; R65.20 - Severe sepsis without septic shock SNOMED: 91498474 (2) Rhabdomyolysis ICD Codes: M62.82 - Rhabdomyolysis SNOMED: 862552353 Qualifiers: Qualified Codes: T79.6XXA - Traumatic ischemia of muscle, initial encounter (3) Aspiration pneumonia ICD Codes: J69.0 - Pneumonitis due to inhalation of food and vomit SNOMED: 630324860 Qualifiers: Qualified Codes: J69.0 - Pneumonitis due to inhalation of food and vomit (4) Substance abuse ICD Codes: F19.10 - Other psychoactive substance abuse, uncomplicated SNOMED: 22865079 (5) Transaminitis ICD Codes: R74.0 - Nonspecific elevation of levels of transaminase and lactic acid dehydrogenase [LDH] SNOMED: 020362594, 899131390 Status: progressing Status Narrative Discussed with Dr. Chavez. Assessment/Plan Hep A immunity Hep C positive transaminitis >> downtrending, near normal levels cdiff negative stool culture >> gram negative bacillus elevated lipase >> downtrending OB stool negative regular diet, tolerating about 25% abx supportive care ppi fu labs, lipase, trend LFTs outpatient Hep C tx The patient was seen and examined at bedside and all new and available data was reviewed in the patients chart. I agree with the above findings, impression and plan. (Patient seen earlier today. Signature stamp does not reflect patient encounter time.). - Efrain Chavez MD Subjective Subjective limited, has periods of confusion Objective Last 24 Hour Vital Signs Date Time Temp Pulse Resp B/P (MAP) Pulse Ox O2 Delivery O2 Flow Rate FiO2 09/13/17 08:00 97.7 80 20 137/80 (99) 94 97.7 09/13/17 05:52 151/86 09/13/17 04:00 97.6 86 18 151/86 (107) 95 97.6 09/13/17 04:00 151/86 09/13/17 00:00 97.9 89 18 148/78 (101) 96 97.9 09/12/17 23:52 161/67 09/12/17 22:29 97.9 09/12/17 21:30 100.6 09/12/17 21:00 Room Air 09/12/17 20:13 Room Air 10.0 21 09/12/17 20:00 100.6 82 18 161/67 (98) 96 100.6 09/12/17 17:11 129/83 09/12/17 16:45 Room Air 10.0 21 09/12/17 16:00 97.3 89 18 134/85 (101) 95 97.3 09/12/17 12:00 98.8 78 18 129/83 (98) 97 98.8 Intake and Output 09/12/17 09/13/17 19:00 07:00 Intake Total 340 ml 55 ml Output Total 2300 ml Balance 340 ml -2245 ml Intake Oral 340 ml IV Total 55 ml Hemodialysis UF 2300 ml # Bowel Movements 4 2 Laboratory Tests Test 09/13/17 08:40 White Blood Count 22.5 K/UL (4.8-10.8) *H Red Blood Count 2.62 M/UL (4.70-6.10) L Hemoglobin 8.2 G/DL (14.2-18.0) L Hematocrit 24.3 % (42.0-52.0) L Mean Corpuscular Volume 93 FL (80-99) Mean Corpuscular Hemoglobin 31.3 PG (27.0-31.0) H Mean Corpuscular Hemoglobin Concent 33.9 G/DL (32.0-36.0) Red Cell Distribution Width 11.3 % (11.6-14.8) L Platelet Count 756 K/UL (150-450) H Mean Platelet Volume 5.7 FL (6.5-10.1) L Neutrophils (%) (Auto) % (45.0-75.0) Lymphocytes (%) (Auto) % (20.0-45.0) Monocytes (%) (Auto) % (1.0-10.0) Eosinophils (%) (Auto) % (0.0-3.0) Basophils (%) (Auto) % (0.0-2.0) Differential Total Cells Counted 100 Neutrophils % (Manual) 90 % (45-75) H Lymphocytes % (Manual) 4 % (20-45) L Monocytes % (Manual) 5 % (1-10) Eosinophils % (Manual) 0 % (0-3) Basophils % (Manual) 0 % (0-2) Band Neutrophils 1 % (0-8) Platelet Estimate Increased H Platelet Morphology Normal Hypochromasia 2+ Sodium Level 136 MMOL/L (136-145) Potassium Level 4.0 MMOL/L (3.5-5.1) Chloride Level 96 MMOL/L (98-107) L Carbon Dioxide Level 31 MMOL/L (21-32) Anion Gap 10 mmol/L (5-15) Blood Urea Nitrogen 60 mg/dL (7-18) H Creatinine 11.3 MG/DL (0.55-1.30) H Estimat Glomerular Filtration Rate 5.1 mL/min (>60) Glucose Level 161 MG/DL (74-106) #H Calcium Level 7.6 MG/DL (8.5-10.1) L Lipase 527 U/L (73-393) H Height (Feet): 5 Height (Inches): 5.00 Weight (Pounds): 206 General Appearance: alert, confused Cardiovascular: normal rate Respiratory/Chest: normal breath sounds, no respiratory distress Abdominal Exam: normal bowel sounds, non tender, soft Extremities: normal range of motion - unsteady gait Carlos Lopez NP Sep 13, 2017 10:50
[2017-09-13 11:23] LABS: INR 1.1 (0.9-1.1)
[2017-09-13 12:04] LABS: APPEARANCE,URINE TURBID; BILIRUBIN, URINE NEGATIVE (NEGATIVE); GLUCOSE, URINE (UA) NEGATIVE (NEGATIVE); KETONES,URINE NEGATIVE (NEGATIVE); LEUKOCYTE ESTERASE ,URINE 3+ (NEGATIVE); NITRITE,URINE NEGATIVE (NEGATIVE); PH,URINE 7 (4.5-8.0); PROTEIN,URINE 4+ (NEGATIVE); UROBILINOGEN,URINE NORMAL MG/DL (0.0-1.0)
[2017-09-13 12:05] LABS: COLOR,URINE YELLOW
--- NOTE | 2017-09-13 12:12 | Neurology Progress Note ---
Interim History Interim History Interim History Mr. Stover feels better this morning. He had an agitated night. He feels that his mind is clearing up. He however is still forgetful. He is still confused and not fully oriented. His appetite is better and he is eating more. He is still generally weak. He denies any new neurologic symptoms. He specifically denies any weakness on one side or the other, numbness on one side or the other, problems with speech, problems with language, or problems with vision. Review of Systems Neuro Review of Systems Benign. Objective Physical Exam Last Vital Signs Date Time Temp Pulse Resp B/P (MAP) Pulse Ox O2 Delivery O2 Flow Rate FiO2 09/13/17 09:00 Room Air 09/13/17 08:00 97.7 80 20 137/80 (99) 94 97.7 09/12/17 20:13 10.0 21 Laboratory Tests Test 09/13/17 08:40 09/13/17 11:48 White Blood Count 22.5 K/UL (4.8-10.8) *H Red Blood Count 2.62 M/UL (4.70-6.10) L Hemoglobin 8.2 G/DL (14.2-18.0) L Hematocrit 24.3 % (42.0-52.0) L Mean Corpuscular Volume 93 FL (80-99) Mean Corpuscular Hemoglobin 31.3 PG (27.0-31.0) H Mean Corpuscular Hemoglobin Concent 33.9 G/DL (32.0-36.0) Red Cell Distribution Width 11.3 % (11.6-14.8) L Platelet Count 756 K/UL (150-450) H Mean Platelet Volume 5.7 FL (6.5-10.1) L Neutrophils (%) (Auto) % (45.0-75.0) Lymphocytes (%) (Auto) % (20.0-45.0) Monocytes (%) (Auto) % (1.0-10.0) Eosinophils (%) (Auto) % (0.0-3.0) Basophils (%) (Auto) % (0.0-2.0) Differential Total Cells Counted 100 Neutrophils % (Manual) 90 % (45-75) H Lymphocytes % (Manual) 4 % (20-45) L Monocytes % (Manual) 5 % (1-10) Eosinophils % (Manual) 0 % (0-3) Basophils % (Manual) 0 % (0-2) Band Neutrophils 1 % (0-8) Platelet Estimate Increased H Platelet Morphology Normal Hypochromasia 2+ Prothrombin Time 12.0 SEC (9.30-11.50) H Prothromb Time International Ratio 1.1 (0.9-1.1) Activated Partial Thromboplast Time 31 SEC (23-33) Sodium Level 136 MMOL/L (136-145) Potassium Level 4.0 MMOL/L (3.5-5.1) Chloride Level 96 MMOL/L (98-107) L Carbon Dioxide Level 31 MMOL/L (21-32) Anion Gap 10 mmol/L (5-15) Blood Urea Nitrogen 60 mg/dL (7-18) H Creatinine 11.3 MG/DL (0.55-1.30) H Estimat Glomerular Filtration Rate 5.1 mL/min (>60) Glucose Level 161 MG/DL (74-106) #H Calcium Level 7.6 MG/DL (8.5-10.1) L Lipase 527 U/L (73-393) H Random Vancomycin Level Pending Urine Color Yellow Urine Appearance Turbid Urine pH 7 (4.5-8.0) Urine Specific [place] 1.005 (1.005-1.035) Urine Protein 4+ (NEGATIVE) H Urine Glucose (UA) Negative (NEGATIVE) Urine Ketones Negative (NEGATIVE) Urine Occult Blood 5+ (NEGATIVE) H Urine Nitrite Negative (NEGATIVE) Urine Bilirubin Negative (NEGATIVE) Urine Urobilinogen Normal MG/DL (0.0-1.0) Urine Leukocyte Esterase 3+ (NEGATIVE) H Urine RBC Pending Urine WBC Pending Urine Squamous Epithelial Cells Pending Urine Bacteria Pending Neurologic Exam Objective PHYSICAL EXAMINATION: GENERAL: He is a well-developed, well-nourished, gentleman, lying in bed. HEAD: Normocephalic and atraumatic. EENT: Examination benign. NECK: No neck rigidity was observed. NEUROLOGIC EXAMINATION: MENTAL STATUS EXAMINATION: He was wawake and much more alert. He was oriented to self, [facility], and September only. He was able to recall 3/3 words immediately, but could only remember 2/3 in 1 and 3 minutes. He was able to remember Trump but could not remember other [place] presidents. SPEECH: He had no dysarthria. LANGUAGE: He had no aphasia. CRANIAL NERVE EXAMINATION: II: The visual dinh were intact on confrontation testing. III, IV & : The external ocular movements were present. The pupils were 3 mm in diameter and reactive sluggishly to light. V: He had normal facial sensations and the temporales, masseters and pterygoids functioned well. VII: He had normal facial expressions and no facial asymmetry. VIII: He was able to hear well and had no nystagmus. IX: The palate moved symmetrically on phonation. X: He had no hoarseness of voice. XI: The sternocleidomastoids and trapezii functioned well. XII: The tongue was in the midline. MOTOR SYSTEM: The tone was normal in all four extremities. Examination of muscle mass revealed no focal wasting. Examination of power revealed G 5/5 power in all muscle groups except for G 0/5 in the right ankle dorsiflexors and toe extensors, G 3+/5 in the right ankle plantar flexors and toe flexors, G 5-/5 in the left ankle dorsiflexors and toe extensors, and G 4/5 in the iliopsoas muscle bilaterally. SENSORY EXAMINATION: He was able to discern pin prick and light ouch but complained of altered sensations in the right peroneal distribution. REFLEXES: Trace+ and bilaterally symmetrical at the biceps, triceps, brachioradialis, and knees, 0 at both ankles. The plantar responses were flexor bilaterally. COORDINATION: He performed well on finger to nose testing. STANCE & GAIT: Could not be tested. Impression/Recommendations Diagnostic Impression 1. Mr. Enoch Stover is a 37-year-old, gentleman, of unknown handedness, who was found unconscious in a hotel room on 08/29/2017 after he had used multiple drugs. He was found to be possibly febrile, hypoglycemic, and breathing rapidly. Since then, he has been hospitalized and treated for sepsis. 2. He feels better this morning. He had an agitated night. He feels that his mind is clearing up. He however is still forgetful. He is still confused and not fully oriented. His appetite is better and he is eating more. He is still generally weak. He denies any new neurologic symptoms. 3. On neurological examination, at this time, he is awake and alert. He is oriented to the month and name of the hospital. He does have problems with recent and remote memory. His speech and language are normal. His cranial nerves are also functioning normally. His motor function is relatively good he however has mild proximal lower extremity weakness, and in addition right > left distal lower extremity weakness with a severe right peroneal nerve dysfunction and now some right tibial nerve dysfunction. His sensations are also altered in the right peroneal distribution. His deep tendon reflexes are diminished but his plantar responses are flexor. He also does not demonstrate any definite focal or lateralizing neurological findings. 4. The CT scan of the brain performed on 08/29/2017 and repeated on 09/04/17 is benign for acute pathology. 5. Laboratory data obtained thus far revealed, on admission, his hemoglobin was elevated to 18.4, his WBC was normal at 8,500, but since then his WBCs have peaked to 17,200. His chemistry panel on admission revealed BUN elevated to 31 , creatinine elevated to 3.6, lactic acid elevated to 5.5, bilirubin elevated at 1.2, AST elevated at 478, ALT elevated to 159, CK elevated to greater than 10 ,000, troponin elevated at 1.01, BNP elevated to 2143. His urine toxicology screen was positive for opiates, amphetamines, cocaine, and marijuana. His INR was elevated at 1.2. His TSH is elevated at 4.72. The T3 is low but the T4 is normal. 6. The patient's history, neurological examination, laboratory data, and imaging studies are most compatible with an altered mental state due to a toxic metabolic encephalopathy. 7. The most likely etiology for the encephalopathy is the sepsis, possibly a period of hypoglycemia and ongoing multiple metabolic imbalances and the toxic imbalances. In addition the use of mind-altering drugs could have also been contributing. 8. His encephalopathy is still waxing and waning and is about the same as yesterday. 9. He has also developed bilateral mild proximal lower extremity weakness, and in addition right > left distal lower extremity weakness with a severe right peroneal nerve dysfunction and now some right tibial nerve dysfunction. His sensations are also altered in the right peroneal distribution. Recommendations 1. Continue present management. 2. Continue aggressive treatment of the patient's sepsis. 3. Aggressive management of toxic/metabolic imbalances. 4. AFO for right foot drop. 5. PT/OT. 6. Observe closely. Chris Ricketts M.D., M.S.P.H. CHRIS RICKETTS Sep 13, 2017 12:12
--- NOTE | 2017-09-13 12:12 | General Progress Note ---
Assessment/Plan Problem List: (1) Substance abuse ICD Codes: F19.10 - Other psychoactive substance abuse, uncomplicated SNOMED: 00991048 (2) Severe sepsis ICD Codes: A41.9 - Sepsis, unspecified organism; R65.20 - Severe sepsis without septic shock SNOMED: 04530138 (3) LUCRECIA (acute kidney injury) ICD Codes: N17.9 - Acute kidney failure, unspecified SNOMED: 55191117 Status: progressing Assessment/Plan no acute events abx per id sepsis check labs and reviewed chart fluid collection close to buttock consulted dr ramirez for possible abscess collection afebrile Subjective ROS Limited/Unobtainable: Yes Allergies: Coded Allergies: NO KNOWN ALLERGIES (Verified Allergy, Unknown, 09/02/17) Objective Last 24 Hour Vital Signs Date Time Temp Pulse Resp B/P (MAP) Pulse Ox O2 Delivery O2 Flow Rate FiO2 09/13/17 12:00 97.8 83 19 145/83 (103) 93 97.8 09/13/17 09:00 Room Air 09/13/17 08:00 97.7 80 20 137/80 (99) 94 97.7 09/13/17 05:52 151/86 09/13/17 04:00 97.6 86 18 151/86 (107) 95 97.6 09/13/17 04:00 151/86 09/13/17 00:00 97.9 89 18 148/78 (101) 96 97.9 09/12/17 23:52 161/67 09/12/17 22:29 97.9 09/12/17 21:30 100.6 09/12/17 21:00 Room Air 09/12/17 20:13 Room Air 10.0 21 09/12/17 20:00 100.6 82 18 161/67 (98) 96 100.6 09/12/17 17:11 129/83 09/12/17 16:45 Room Air 10.0 21 09/12/17 16:00 97.3 89 18 134/85 (101) 95 97.3 Intake and Output 09/12/17 09/13/17 19:00 07:00 Intake Total 340 ml 55 ml Output Total 2300 ml Balance 340 ml -2245 ml Intake Oral 340 ml IV Total 55 ml Hemodialysis UF 2300 ml # Bowel Movements 4 2 Laboratory Tests 09/13/17 08:40: White Blood Count 22.5*H, Red Blood Count 2.62L, Hemoglobin 8.2L, Hematocrit 24.3L, Mean Corpuscular Volume 93, Mean Corpuscular Hemoglobin 31.3H, Mean Corpuscular Hemoglobin Concent 33.9, Red Cell Distribution Width 11.3L, Platelet Count 756H, Mean Platelet Volume 5.7L, Neutrophils (%) (Auto) , Lymphocytes (%) (Auto) , Monocytes (%) (Auto) , Eosinophils (%) (Auto) , Basophils (%) (Auto) , Differential Total Cells Counted 100, Neutrophils % ( Manual) 90H, Lymphocytes % (Manual) 4L, Monocytes % (Manual) 5, Eosinophils % ( Manual) 0, Basophils % (Manual) 0, Band Neutrophils 1, Platelet Estimate IncreasedH, Platelet Morphology Normal, Hypochromasia 2+, Prothrombin Time 12.0H , Prothromb Time International Ratio 1.1, Activated Partial Thromboplast Time 31 , Sodium Level 136, Potassium Level 4.0, Chloride Level 96L, Carbon Dioxide Level 31, Anion Gap 10, Blood Urea Nitrogen 60H, Creatinine 11.3H, Estimat Glomerular Filtration Rate 5.1, Glucose Level 161#H, Calcium Level 7.6L, Lipase 527H, Random Vancomycin Level [Pending] 09/13/17 11:48: Urine Color Yellow, Urine Appearance Turbid, Urine pH 7, Urine Specific [place] 1.005, Urine Protein 4+H, Urine Glucose (UA) Negative, Urine Ketones Negative, Urine Occult Blood 5+H, Urine Nitrite Negative, Urine Bilirubin Negative, Urine Urobilinogen Normal, Urine Leukocyte Esterase 3+H, Urine RBC [Pending], Urine WBC [Pending], Urine Squamous Epithelial Cells [Pending], Urine Bacteria [ Pending] Height (Feet): 5 Height (Inches): 5.00 Weight (Pounds): 206 Mode Dutta MD Sep 13, 2017 12:12
--- NOTE | 2017-09-13 12:25 | Pulmonology Progress Note ---
Assessment/Plan Problems: (1) Respiratory failure Assessment & Plan: improved (2) LUCRECIA (acute kidney injury) (3) Severe sepsis (4) Overdose Assessment/Plan on chronic HD now WBC scan done, was negative WBC still high, pnn culture f/u id recommendations continue abx antifungal were added Subjective ROS Limited/Unobtainable: Yes Constitutional: Reports: no symptoms HEENT: Repors: no symptoms Allergies: Coded Allergies: NO KNOWN ALLERGIES (Verified Allergy, Unknown, 09/02/17) Objective Last 24 Hour Vital Signs Date Time Temp Pulse Resp B/P (MAP) Pulse Ox O2 Delivery O2 Flow Rate FiO2 09/13/17 12:00 97.8 83 19 145/83 (103) 93 97.8 09/13/17 09:00 Room Air 09/13/17 08:00 97.7 80 20 137/80 (99) 94 97.7 09/13/17 05:52 151/86 09/13/17 04:00 97.6 86 18 151/86 (107) 95 97.6 09/13/17 04:00 151/86 09/13/17 00:00 97.9 89 18 148/78 (101) 96 97.9 09/12/17 23:52 161/67 09/12/17 22:29 97.9 09/12/17 21:30 100.6 09/12/17 21:00 Room Air 09/12/17 20:13 Room Air 10.0 21 09/12/17 20:00 100.6 82 18 161/67 (98) 96 100.6 09/12/17 17:11 129/83 09/12/17 16:45 Room Air 10.0 21 09/12/17 16:00 97.3 89 18 134/85 (101) 95 97.3 Intake and Output 09/12/17 09/13/17 19:00 07:00 Intake Total 340 ml 55 ml Output Total 2300 ml Balance 340 ml -2245 ml Intake Oral 340 ml IV Total 55 ml Hemodialysis UF 2300 ml # Bowel Movements 4 2 General Appearance: WD/WN HEENT: normocephalic, atraumatic Respiratory/Chest: chest wall non-tender, normal breath sounds Cardiovascular: normal peripheral pulses, regular rhythm Abdomen: normal bowel sounds, no organomegaly Extremities: no clubbing Laboratory Tests 09/13/17 08:40: White Blood Count 22.5*H, Red Blood Count 2.62L, Hemoglobin 8.2L, Hematocrit 24.3L, Mean Corpuscular Volume 93, Mean Corpuscular Hemoglobin 31.3H, Mean Corpuscular Hemoglobin Concent 33.9, Red Cell Distribution Width 11.3L, Platelet Count 756H, Mean Platelet Volume 5.7L, Neutrophils (%) (Auto) , Lymphocytes (%) (Auto) , Monocytes (%) (Auto) , Eosinophils (%) (Auto) , Basophils (%) (Auto) , Differential Total Cells Counted 100, Neutrophils % ( Manual) 90H, Lymphocytes % (Manual) 4L, Monocytes % (Manual) 5, Eosinophils % ( Manual) 0, Basophils % (Manual) 0, Band Neutrophils 1, Platelet Estimate IncreasedH, Platelet Morphology Normal, Hypochromasia 2+, Prothrombin Time 12.0H , Prothromb Time International Ratio 1.1, Activated Partial Thromboplast Time 31 , Sodium Level 136, Potassium Level 4.0, Chloride Level 96L, Carbon Dioxide Level 31, Anion Gap 10, Blood Urea Nitrogen 60H, Creatinine 11.3H, Estimat Glomerular Filtration Rate 5.1, Glucose Level 161#H, Calcium Level 7.6L, Lipase 527H, Random Vancomycin Level 11.9 09/13/17 11:48: Urine Color Yellow, Urine Appearance Turbid, Urine pH 7, Urine Specific [place] 1.005, Urine Protein 4+H, Urine Glucose (UA) Negative, Urine Ketones Negative, Urine Occult Blood 5+H, Urine Nitrite Negative, Urine Bilirubin Negative, Urine Urobilinogen Normal, Urine Leukocyte Esterase 3+H, Urine RBC 30-40H, Urine WBC TntcH, Urine Squamous Epithelial Cells ModerateH, Urine Bacteria Few, Urine Granular Casts 0-2H Current Medications Medications (Trade) Dose Ordered Sig/Krystyna Route PRN Reason Start Time Stop Time Status Last Admin Dose Admin Acetaminophen (Tylenol) 650 mg Q4H PRN ORAL Fever (temp>100.5F) 09/05/17 18:30 10/05/17 18:29 09/12/17 21:30 Chlorhexidine Gluconate (Jyotsna-Hex 2%) 1 applic DAILY@2000 TOPIC 09/05/17 20:00 09/29/17 19:59 09/12/17 21:44 Clonidine HCl (Catapres tab) 0.1 mg Q6H ORAL 09/10/17 04:00 10/10/17 03:59 09/13/17 05:52 Dextrose (Dextrose 50%) 25 ml STAT PRN IV Hypoglycemia 09/05/17 18:30 10/05/17 18:29 Dextrose (Dextrose 50%) 50 ml STAT PRN IV Hypoglycemia 09/05/17 18:30 10/05/17 18:29 Famotidine (Pepcid) 20 mg DAILY ORAL 09/07/17 09:00 10/07/17 08:59 09/13/17 09:02 Heparin Sodium (Porcine) (Heparin 5000 units/ml) 5,000 units EVERY 12 HOURS SUBQ 09/05/17 21:00 09/28/17 20:59 09/12/17 21:33 Methadone HCl (Methadone HCl) 10 mg Q6H ORAL 09/10/17 12:00 09/16/17 21:00 09/13/17 05:51 Micafungin Sodium 100 mg/Sodium Chloride 110 ml @ 110 mls/hr Q24H IVPB 09/07/17 13:00 09/14/17 12:59 09/12/17 13:25 Mirtazapine (Remeron) 15 mg BEDTIME ORAL 09/05/17 21:00 10/04/17 20:59 09/12/17 21:29 Mupirocin (Bactroban Oint) 1 applic BID TOPIC 09/08/17 18:00 09/13/17 17:59 09/13/17 09:03 Nitroglycerin (Ntg) 0.4 mg Q5M PRN SL Prn Chest Pain 09/05/17 18:30 09/28/17 14:44 Piperacillin Sod/ Tazobactam Sod 2.25 gm/Dextrose 55 ml @ 110 mls/hr Q8HR IVPB 09/06/17 16:00 09/15/17 15:59 09/13/17 05:53 Quetiapine Fumarate (SEROquel) 25 mg TID ORAL 09/12/17 20:45 10/12/17 20:44 09/13/17 09:02 Quetiapine Fumarate (SEROquel) 50 mg Q4H PRN ORAL agitation 09/10/17 14:00 10/10/17 13:59 09/12/17 18:27 Sodium Bicarbonate 50 ml/ Dextrose/Sodium Chloride 1,000 ml @ 50 mls/hr Q20H IV 09/09/17 22:00 10/09/17 21:59 09/13/17 05:52 Vancomycin HCl (Vanco rx to dose) 1 ea DAILY PRN MISC Per rx protocol 09/06/17 15:00 10/06/17 14:59 Vancomycin HCl/ Dextrose 250 ml @ 125 mls/hr ONCE ONCE IVPB 09/13/17 13:00 09/13/17 14:59 Arpita Andre MD Sep 13, 2017 12:25
[2017-09-13] MEDS ORDERED: Vancomycin 1500mg IVPB ONE (13:00)
[2017-09-13] MEDS ORDERED: fentaNYL 100 mcg/2 mL IV ONE (13:17)
[2017-09-13] MEDS ORDERED: Propofol 200mg/20ml IV ONE (13:17)
[2017-09-13] MEDS ORDERED: Midazolam 2mg/2ml Inj ONE (13:17)
[2017-09-13] MEDS: Micafungin 100 MG in NS 110 ML IVPB SCH (13:20)
[2017-09-13] MEDS ORDERED: Lidocaine 1% Plain 30 ml INJ ONE (13:30)
--- NOTE | 2017-09-13 14:29 | Pre-Procedure Note/Attestation ---
Pre-Procedure Note/Attestation Complete Prior to Procedure Planned Procedure: left Procedure Narrative: buttock/hip region aspiration under CT Indications for Procedure Pre-Operative Diagnosis: Possible L hip collection Attestation I attest that I discussed the nature of the procedure; its benefits; risks and complications; and alternatives (and the risks and benefits of such alternatives ), prior to the procedure, with the patient (or the patient's legal marketing development representative). I attest that, if there was a reasonable possibility of needing a blood transfusion, the patient (or the patient's legal marketing development representative) was given the [facility] standardized written summary, pursuant to the [place] Blood Safety Act ([place] Health and Safety Code # 1645, as amended). I attest that I re-evaluated the patient just prior to the surgery and that there has been no change in the patient's H&P, except as documented below: Jan Blandon MD Sep 13, 2017 14:29
--- NOTE | 2017-09-13 14:51 | Anethesia Preoperative Eval ---
Anesthesia Pre-op PMH/ROS General Date of Evaluation: Sep 13, 2017 Time of Evaluation: 13:20 Anesthesiologist: Yovani ASA Score: ASA 3 Mallampati Score Class I : Soft palate, uvula, fauces, pillars visible Class II: Soft palate, uvula, fauces visible Class III: Soft palate, base of uvula visible Class IV: Only hard plate visible Mallampati Classification: Class II Surgeon: Vernell Diagnosis: Sepsis Surgical Procedure: CT guided drainage of L gluteal abscess Anesthesia History: none Social History: drug use - IVDA Family History: no anesthesia problems Allergies: Coded Allergies: NO KNOWN ALLERGIES (Verified Allergy, Unknown, 09/02/17) Past Medical History Cardiovascular: Denies: HTN, CAD, IA, valve dz, arrhythmia, other Pulmonary: Reports: other - respiratory failure; Denies: asthma, COPD, ELIZABETH Gastrointestinal/Genitourinary: Reports: other - ARF on dialysis; Denies: GERD, CRI, ESRD Neurologic/Psychiatric: Reports: other - delerious; Denies: dementia, CVA, depression/anxiety, TIA Endocrine: Denies: DM, hypothyroidism, steroids, other HEENT: Denies: cataract (L), cataract (R), glaucoma, [place] (L), [place] (R), other Hematology/Immune: Reports: anemia; Denies: DVT, bleeding disorder, other Musculoskeletal/Integumentary: Denies: OA, RA, DJD, DDD, edema, other PMH Narrative: as above PSxH Narrative: See H&P Anesthesia Pre-op Phys. Exam Physician Exam Last Vital Signs Date Time Temp Pulse Resp B/P (MAP) Pulse Ox O2 Delivery O2 Flow Rate FiO2 09/13/17 12:00 97.8 83 19 145/83 (103) 93 97.8 09/13/17 09:00 Room Air 09/12/17 20:13 10.0 21 Constitutional: NAD Neurologic: other - unable to obtaine Cardiovascular: RRR Respiratory: CTA Gastrointestinal: S/NT/ND Airway Exam Mallampati Score: Class III MO: limited Neck: stiff ROM: limited Teeth: missing Dentures: no upper, no lower Anesthesia Pre-op A/P Labs Hematology Test 09/13/17 08:40 White Blood Count 22.5 K/UL (4.8-10.8) *H Red Blood Count 2.62 M/UL (4.70-6.10) L Hemoglobin 8.2 G/DL (14.2-18.0) L Hematocrit 24.3 % (42.0-52.0) L Mean Corpuscular Volume 93 FL (80-99) Mean Corpuscular Hemoglobin 31.3 PG (27.0-31.0) H Mean Corpuscular Hemoglobin Concent 33.9 G/DL (32.0-36.0) Red Cell Distribution Width 11.3 % (11.6-14.8) L Platelet Count 756 K/UL (150-450) H Mean Platelet Volume 5.7 FL (6.5-10.1) L Neutrophils (%) (Auto) % (45.0-75.0) Lymphocytes (%) (Auto) % (20.0-45.0) Monocytes (%) (Auto) % (1.0-10.0) Eosinophils (%) (Auto) % (0.0-3.0) Basophils (%) (Auto) % (0.0-2.0) Differential Total Cells Counted 100 Neutrophils % (Manual) 90 % (45-75) H Lymphocytes % (Manual) 4 % (20-45) L Monocytes % (Manual) 5 % (1-10) Eosinophils % (Manual) 0 % (0-3) Basophils % (Manual) 0 % (0-2) Band Neutrophils 1 % (0-8) Platelet Estimate Increased H Platelet Morphology Normal Hypochromasia 2+ Coagulation Test 09/13/17 08:40 Prothrombin Time 12.0 SEC (9.30-11.50) H Prothromb Time International Ratio 1.1 (0.9-1.1) Activated Partial Thromboplast Time 31 SEC (23-33) Chemistry Test 09/13/17 08:40 Sodium Level 136 MMOL/L (136-145) Potassium Level 4.0 MMOL/L (3.5-5.1) Chloride Level 96 MMOL/L (98-107) L Carbon Dioxide Level 31 MMOL/L (21-32) Anion Gap 10 mmol/L (5-15) Blood Urea Nitrogen 60 mg/dL (7-18) H Creatinine 11.3 MG/DL (0.55-1.30) H Estimat Glomerular Filtration Rate 5.1 mL/min (>60) Glucose Level 161 MG/DL (74-106) #H Calcium Level 7.6 MG/DL (8.5-10.1) L Lipase 527 U/L (73-393) H Risk Assessment & Plan Assessment: ASA 3 Plan: MAC Status Change Before Surgery: No Pre-Antibiotics Drug: as scheduled Salazar Pina MD Sep 13, 2017 14:51
--- NOTE | 2017-09-13 14:54 | Immediate Post-Op Evaluation ---
Immediate Post-Op Evalulation Immediate Post-Op Evalulation Procedure: CT guided drainege of L gluteal abscess Date of Evaluation: Sep 13, 2017 Time of Evaluation: 14:52 IV Fluids: 300 Blood Products: none Estimated Blood Loss: <50 Urinary Output: none Blood Pressure Systolic: 146 Blood Pressure Diastolic: 72 Pulse Rate: 82 Respiratory Rate: 20 O2 Sat by Pulse Oximetry: 98 Temperature (Fahrenheit): 100.8 Pain Score (1-10): 1 Nausea: No Vomiting: No Complications none Patient Status: reacts, patent, none Hydration Status: adequate Salazar Pina MD Sep 13, 2017 14:54
--- NOTE | 2017-09-13 14:56 | 48 Hour Post Anesthesia Eval ---
Post Anesthesia Evaluation Procedure: CT guided drainege of L gluteal abscess Date of Evaluation: Sep 13, 2017 Time of Evaluation: 15:45 Blood Pressure Systolic: 140 0: 72 Pulse Rate: 68 Respiratory Rate: 22 Temperature (Fahrenheit): 97.6 O2 Sat by Pulse Oximetry: 99 Airway: patent Nausea: No Vomiting: No Pain Intensity: 2 Hydration Status: adequate Cardiopulmonary Status: stable Mental Status/LOC: patient returned to baseline Follow-up Care/Observations: n/a Post-Anesthesia Complications: none Follow-up care needed: N/A Salazar Pina MD Sep 13, 2017 14:56
--- NOTE | 2017-09-13 15:19 | Diagnostic Imaging Report ---
Indication: Possible left buttock fluid collection seen on recent MRI and CT Technique: Prior imaging studies reviewed. Informed consent obtained prior to commencement of the procedure from patient's mother. Areas of interest initially scanned in real-time with ultrasound, showing no discernible fluid collection. Spiral acquisitions obtained through the hip regions. In venipuncture site was marked, localized, sterilely prepped and draped. Local anesthesia with ultrasound lidocaine. Yueh needle advanced into the suspected abnormality. Stylet removed. Yueh needle aspirated, only a few drops of blood aspirated. The 17-gauge guide needle from a biopsy gun was then advanced into the collection. This yielded a few cc of blood. No pus was aspirated.. Specimen was sent to the lab for microbial analysis Total dose length product 1180 mGycm. CTDIvol(s) 18, 19 x 4 mGy. Radiation dose was minimized using automated exposure control. Procedure performed under monitored anesthesia care. The patient tolerated the procedure well, without immediate complication. Comparison: MRI dated 09/11/2017, CT scan dated 09/05/2017 Findings: Images confirm needle placement in the area of suspected abnormality Impression: No purulent material aspirated. Only small amount of blood aspirated. Given this and the absence of visible collection on ultrasound, imaging findings most likely represent an area of cellulitis, possibly with a small component of hematoma The CT scanner at [facility] is accredited by the [employer] and the scans are performed using protocols designed to limit radiation exposure to as low as reasonably achievable to attain images of sufficient resolution adequate for diagnostic evaluation.
[2017-09-13] MEDS: Dyna-Hex 2% Top Sol 2oz TOPIC SCH (21:34)
--- NOTE | 2017-09-13 23:52 | Cardiology Progress Note ---
Assessment/Plan Assessment/Plan 1. Sepsis, no evidence of infective endocarditis. No bacteremia. Continue IV ABx per ID recs. 2. LUCRECIA, s/p Mahurkar catheter placement. 3. Shock liver, resolved. 4. Acute pancreatitis with systemic inflammatory response disease, downtrending lipase. 5. Elevated troponin I level likely due to myocarditis, sepsis, or due to shock. 6. Sinus tachycardia, resolved, continue hydration. 7. Toxic metabolic encephalopathy Subjective Subjective No cardiac events. On non-tele bed. Objective Last 24 Hour Vital Signs Date Time Temp Pulse Resp B/P (MAP) Pulse Ox O2 Delivery O2 Flow Rate FiO2 09/13/17 21:37 150/82 09/13/17 16:09 139/85 09/13/17 16:00 99.3 91 20 139/85 (103) 95 99.3 09/13/17 15:30 99.8 90 16 157/89 97 Nasal Cannula 3 99.8 09/13/17 15:15 89 15 149/84 93 Nasal Cannula 3 09/13/17 15:00 84 12 145/83 92 Nasal Cannula 3 09/13/17 14:56 207.7 68 22 99 09/13/17 14:54 213.4 82 20 98 09/13/17 14:50 86 11 148/87 93 Nasal Cannula 3 09/13/17 14:40 86 11 159/92 95 Simple Mask 6 09/13/17 14:35 81 10 152/89 96 Simple Mask 6 09/13/17 14:32 100.9 83 12 144/89 97 Simple Mask 6 100.9 09/13/17 12:00 97.8 83 19 145/83 (103) 93 97.8 09/13/17 09:00 Room Air 09/13/17 08:00 97.7 80 20 137/80 (99) 94 97.7 09/13/17 05:52 151/86 09/13/17 04:00 97.6 86 18 151/86 (107) 95 97.6 09/13/17 04:00 151/86 09/13/17 00:00 97.9 89 18 148/78 (101) 96 97.9 Intake and Output 09/12/17 09/13/17 19:00 07:00 Intake Total 340 ml 135 ml Output Total 2300 ml Balance 340 ml -2165 ml Intake Oral 340 ml IV Total 135 ml Hemodialysis UF 2300 ml # Bowel Movements 4 2 2D Echo: KATELYN: Nl LV systolic & diastolic function, Mild MR, No vegetations, Nl RVSP Laboratory Tests Test 09/13/17 08:40 09/13/17 11:48 White Blood Count 22.5 K/UL (4.8-10.8) *H Red Blood Count 2.62 M/UL (4.70-6.10) L Hemoglobin 8.2 G/DL (14.2-18.0) L Hematocrit 24.3 % (42.0-52.0) L Mean Corpuscular Volume 93 FL (80-99) Mean Corpuscular Hemoglobin 31.3 PG (27.0-31.0) H Mean Corpuscular Hemoglobin Concent 33.9 G/DL (32.0-36.0) Red Cell Distribution Width 11.3 % (11.6-14.8) L Platelet Count 756 K/UL (150-450) H Mean Platelet Volume 5.7 FL (6.5-10.1) L Neutrophils (%) (Auto) % (45.0-75.0) Lymphocytes (%) (Auto) % (20.0-45.0) Monocytes (%) (Auto) % (1.0-10.0) Eosinophils (%) (Auto) % (0.0-3.0) Basophils (%) (Auto) % (0.0-2.0) Differential Total Cells Counted 100 Neutrophils % (Manual) 90 % (45-75) H Lymphocytes % (Manual) 4 % (20-45) L Monocytes % (Manual) 5 % (1-10) Eosinophils % (Manual) 0 % (0-3) Basophils % (Manual) 0 % (0-2) Band Neutrophils 1 % (0-8) Platelet Estimate Increased H Platelet Morphology Normal Hypochromasia 2+ Prothrombin Time 12.0 SEC (9.30-11.50) H Prothromb Time International Ratio 1.1 (0.9-1.1) Activated Partial Thromboplast Time 31 SEC (23-33) Sodium Level 136 MMOL/L (136-145) Potassium Level 4.0 MMOL/L (3.5-5.1) Chloride Level 96 MMOL/L (98-107) L Carbon Dioxide Level 31 MMOL/L (21-32) Anion Gap 10 mmol/L (5-15) Blood Urea Nitrogen 60 mg/dL (7-18) H Creatinine 11.3 MG/DL (0.55-1.30) H Estimat Glomerular Filtration Rate 5.1 mL/min (>60) Glucose Level 161 MG/DL (74-106) #H Calcium Level 7.6 MG/DL (8.5-10.1) L Lipase 527 U/L (73-393) H Random Vancomycin Level 11.9 ug/mL Urine Color Yellow Urine Appearance Turbid Urine pH 7 (4.5-8.0) Urine Specific [place] 1.005 (1.005-1.035) Urine Protein 4+ (NEGATIVE) H Urine Glucose (UA) Negative (NEGATIVE) Urine Ketones Negative (NEGATIVE) Urine Occult Blood 5+ (NEGATIVE) H Urine Nitrite Negative (NEGATIVE) Urine Bilirubin Negative (NEGATIVE) Urine Urobilinogen Normal MG/DL (0.0-1.0) Urine Leukocyte Esterase 3+ (NEGATIVE) H Urine RBC 30-40 /HPF (0 - 0) H Urine WBC Tntc /HPF (0 - 0) H Urine Squamous Epithelial Cells Moderate /LPF (NONE/OCC) H Urine Bacteria Few /HPF (NONE) Urine Granular Casts 0-2 /LPF (NONE) H Objective HEENT: Atraumatic and normocephalic. Pupils are equal, round, and reactive to light and accommodation. Scleral injection in both eyes. Dry mucosal membranes. NECK: JVP cannot be assessed. CVS: Normal S1, S2. Cannot appreciate any murmurs, gallops, or rubs. LUNGS: Clear to auscultation bilaterally. ABDOMEN: Soft, nontender, and nondistended. No hepatosplenomegaly. Positive bowel sounds. EXTREMITIES: No evidence of edema, clubbing, or cyanosis. Right lower extremity with decrease in both motor and sensory function. Jorge Mcdonough MD Sep 13, 2017 23:52
[2017-09-14] VITALS (7 sets, daily range): BP systolic 130–166; BP diastolic 69–95
--- NOTE | 2017-09-14 00:51 | Diagnostic Imaging Report ---
EXAM: XR Left Hip With Pelvis When Performed, 1 View CLINICAL HISTORY: PAIN TECHNIQUE: Frontal view of the left hip, with pelvis when performed. COMPARISON: No relevant prior studies available. FINDINGS: Bones/joints: Unremarkable. No acute fracture. No dislocation. Soft tissues: Unremarkable. IMPRESSION: No radiographic evidence of acute fracture or dislocation.
--- NOTE | 2017-09-14 00:51 | Diagnostic Imaging Report ---
EXAM: XR Pelvis, 1 or 2 Views CLINICAL HISTORY: PAIN TECHNIQUE: Frontal view of the pelvis. COMPARISON: No relevant prior studies available. FINDINGS: Bones/joints: Unremarkable. No acute fracture. No dislocation. Soft tissues: Unremarkable. IMPRESSION: No radiographic evidence of acute fracture or dislocation.
--- NOTE | 2017-09-14 00:52 | Diagnostic Imaging Report ---
EXAM: XR Right Hip With Pelvis When Performed, 1 View CLINICAL HISTORY: PAIN TECHNIQUE: Frontal view of the right hip, with pelvis when performed. COMPARISON: No relevant prior studies available. FINDINGS: Bones/joints: Unremarkable. No acute fracture. No dislocation. Soft tissues: Unremarkable. IMPRESSION: No radiographic evidence of acute fracture or dislocation.
[2017-09-14] MEDS: D5 IV SCH ×2 (01:50→20:54)
[2017-09-14] MEDS: [UNRECOGNIZED DRUG - OTHER] IV SCH ×2 (01:50→20:54)
[2017-09-14] MEDS: SODIUM BICARBONATE IV SCH ×2 (01:50→20:54)
[2017-09-14] MEDS: cloNIDine 0.2mg Tab ORAL SCH ×4 (04:00→22:20)
[2017-09-14] MEDS: Piperacillin/Tazobactam 2.25 GM in D5W 55 ML IVPB SCH ×2 (05:42→14:19)
[2017-09-14 06:16] LABS: HEMOGLOBIN 7.2 G/DL (14.2-18.0); MEAN CORPUSCULAR VOLUME 94 FL (80-99); PLATELET COUNT 659 K/UL (150-450); RED BLOOD COUNT 2.13 M/UL (4.70-6.10); RED CELL DISTRIBUTION WIDTH 11.4 % (11.6-14.8); WHITE BLOOD COUNT 21.3 K/UL (4.8-10.8)
[2017-09-14 06:55] LABS: ALANINE AMINOTRANSFERASE 58 U/L (12-78); ALBUMIN 1.9 G/DL (3.4-5.0); ALBUMIN/GLOBULIN RATIO 0.4 (1.0-2.7); ALKALINE PHOSPHATASE 90 U/L (46-116); ANION GAP 14 mmol/L (5-15); ASPARTATE AMINO TRANSFERASE 61 U/L (15-37); BILIRUBIN,TOTAL 0.5 MG/DL (0.2-1.0); BLOOD UREA NITROGEN 73 mg/dL (7-18); CALCIUM 7.7 MG/DL (8.5-10.1); CARBON DIOXIDE 28 MMOL/L (21-32); CHLORIDE 96 MMOL/L (98-107); CREATININE 12.3 MG/DL (0.55-1.30); POTASSIUM 4.1 MMOL/L (3.5-5.1); SODIUM 138 MMOL/L (136-145)
--- NOTE | 2017-09-14 09:52 | Pulmonology Progress Note ---
Assessment/Plan Problems: (1) Respiratory failure Assessment & Plan: improved (2) LUCRECIA (acute kidney injury) (3) Severe sepsis (4) Overdose Assessment/Plan on chronic HD now WBC scan done, was negative WBC still high, pnn culture f/u id recommendations continue abx antifungal were added Subjective ROS Limited/Unobtainable: No Constitutional: Reports: no symptoms HEENT: Repors: no symptoms Respiratory: Reports: no symptoms Allergies: Coded Allergies: NO KNOWN ALLERGIES (Verified Allergy, Unknown, 09/02/17) Objective Last 24 Hour Vital Signs Date Time Temp Pulse Resp B/P (MAP) Pulse Ox O2 Delivery O2 Flow Rate FiO2 09/14/17 07:45 97.2 83 21 146/92 (110) 95 97.2 09/14/17 06:44 98.1 98.1 09/14/17 04:00 100.0 81 18 144/84 (104) 93 100.0 09/14/17 04:00 144/84 09/14/17 00:00 101.8 81 18 144/95 (111) 92 101.8 09/13/17 21:37 150/82 09/13/17 21:00 Nasal Cannula 4.0 09/13/17 20:00 99.9 84 18 150/82 (104) 96 99.9 09/13/17 16:09 139/85 09/13/17 16:00 99.3 91 20 139/85 (103) 95 99.3 09/13/17 15:30 99.8 90 16 157/89 97 Nasal Cannula 3 99.8 09/13/17 15:15 89 15 149/84 93 Nasal Cannula 3 09/13/17 15:00 84 12 145/83 92 Nasal Cannula 3 09/13/17 14:56 207.7 68 22 99 09/13/17 14:54 213.4 82 20 98 09/13/17 14:50 86 11 148/87 93 Nasal Cannula 3 09/13/17 14:40 86 11 159/92 95 Simple Mask 6 09/13/17 14:35 81 10 152/89 96 Simple Mask 6 09/13/17 14:32 100.9 83 12 144/89 97 Simple Mask 6 100.9 09/13/17 12:00 97.8 83 19 145/83 (103) 93 97.8 Intake and Output 09/13/17 09/14/17 19:00 07:00 Intake Total 1700 ml 660 ml Output Total 0 ml Balance 1700 ml 660 ml Intake Oral 400 ml IV Total 1300 ml 660 ml Estimated Blood Loss 0 ml # Voids 1 3 # Bowel Movements 2 6 General Appearance: WD/WN HEENT: normocephalic Respiratory/Chest: chest wall non-tender, lungs clear Cardiovascular: normal peripheral pulses, regular rhythm Abdomen: soft, non tender, non distended Genitourinary: normal external genitalia Skin: no rash Microbiology Date/Time Source Procedure Growth Status 09/13/17 14:20 Drainage Fluid Gram Stain - Final Resulted 09/13/17 14:20 Drainage Fluid Body Fluid Culture - Preliminary NO GROWTH Resulted 09/13/17 11:48 Urine,Clean Catch Urine Culture - Preliminary NO GROWTH Resulted Laboratory Tests 09/13/17 11:48: Urine Color Yellow, Urine Appearance Turbid, Urine pH 7, Urine Specific [place] 1.005, Urine Protein 4+H, Urine Glucose (UA) Negative, Urine Ketones Negative, Urine Occult Blood 5+H, Urine Nitrite Negative, Urine Bilirubin Negative, Urine Urobilinogen Normal, Urine Leukocyte Esterase 3+H, Urine RBC 30-40H, Urine WBC TntcH, Urine Squamous Epithelial Cells ModerateH, Urine Bacteria Few, Urine Granular Casts 0-2H 09/14/17 05:35: White Blood Count 21.3H, Red Blood Count 2.13L, Hemoglobin 7.2L, Hematocrit 20.0L, Mean Corpuscular Volume 94, Mean Corpuscular Hemoglobin 33.7H, Mean Corpuscular Hemoglobin Concent 35.9, Red Cell Distribution Width 11.4L, Platelet Count 659H, Mean Platelet Volume 5.8L, Neutrophils (%) (Auto) , Lymphocytes (%) (Auto) , Monocytes (%) (Auto) , Eosinophils (%) (Auto) , Basophils (%) (Auto) , Differential Total Cells Counted 100, Neutrophils % ( Manual) 88H, Lymphocytes % (Manual) 5L, Monocytes % (Manual) 7, Eosinophils % ( Manual) 0, Basophils % (Manual) 0, Band Neutrophils 0, Platelet Estimate IncreasedH, Platelet Morphology Normal, Hypochromasia 3+, Anisocytosis 1+, Spherocytes 2+, Sodium Level 138, Potassium Level 4.1, Chloride Level 96L, Carbon Dioxide Level 28, Anion Gap 14, Blood Urea Nitrogen 73H, Creatinine 12.3H , Estimat Glomerular Filtration Rate 4.6, Glucose Level 130H, Calcium Level 7.7L , Total Bilirubin 0.5, Aspartate Amino Transf (AST/SGOT) 61H, Alanine Aminotransferase (ALT/SGPT) 58, Alkaline Phosphatase 90, Total Protein 6.2L, Albumin 1.9L, Globulin 4.3, Albumin/Globulin Ratio 0.4L Current Medications Medications (Trade) Dose Ordered Sig/Krystyna Route PRN Reason Start Time Stop Time Status Last Admin Dose Admin Acetaminophen (Tylenol) 650 mg Q4H PRN ORAL Fever (temp>100.5F) 09/05/17 18:30 10/05/17 18:29 09/12/17 21:30 Chlorhexidine Gluconate (Jyotsna-Hex 2%) 1 applic DAILY@2000 TOPIC 09/05/17 20:00 09/29/17 19:59 09/13/17 21:34 Clonidine HCl (Catapres tab) 0.1 mg Q6H ORAL 09/10/17 04:00 10/10/17 03:59 09/13/17 21:37 Dextrose (Dextrose 50%) 25 ml STAT PRN IV Hypoglycemia 09/05/17 18:30 10/05/17 18:29 Dextrose (Dextrose 50%) 50 ml STAT PRN IV Hypoglycemia 09/05/17 18:30 10/05/17 18:29 Famotidine (Pepcid) 20 mg DAILY ORAL 09/07/17 09:00 10/07/17 08:59 09/13/17 09:02 Heparin Sodium (Porcine) (Heparin 5000 units/ml) 5,000 units EVERY 12 HOURS SUBQ 09/05/17 21:00 09/28/17 20:59 09/13/17 21:35 Methadone HCl (Methadone HCl) 10 mg Q6H ORAL 09/10/17 12:00 09/16/17 21:00 09/13/17 17:29 Micafungin Sodium 100 mg/Sodium Chloride 110 ml @ 110 mls/hr Q24H IVPB 09/07/17 13:00 09/14/17 12:59 09/13/17 13:20 Mirtazapine (Remeron) 15 mg BEDTIME ORAL 09/05/17 21:00 10/04/17 20:59 09/13/17 21:34 Nitroglycerin (Ntg) 0.4 mg Q5M PRN SL Prn Chest Pain 09/05/17 18:30 09/28/17 14:44 Piperacillin Sod/ Tazobactam Sod 2.25 gm/Dextrose 55 ml @ 110 mls/hr Q8HR IVPB 09/06/17 16:00 09/15/17 15:59 09/14/17 05:42 Quetiapine Fumarate (SEROquel) 25 mg TID ORAL 09/12/17 20:45 10/12/17 20:44 09/13/17 17:28 Quetiapine Fumarate (SEROquel) 50 mg Q4H PRN ORAL agitation 09/10/17 14:00 10/10/17 13:59 09/12/17 18:27 Sodium Bicarbonate 50 ml/ Dextrose/Sodium Chloride 1,000 ml @ 50 mls/hr Q20H IV 09/09/17 22:00 10/09/17 21:59 09/14/17 01:50 Vancomycin HCl (Vanco rx to dose) 1 ea DAILY PRN MISC Per rx protocol 09/06/17 15:00 10/06/17 14:59 Arpita Andre MD Sep 14, 2017 09:52
[2017-09-14] MEDS: Heparin 5000 units/ml inj SUBQ SCH ×2 (10:09→20:56)
--- NOTE | 2017-09-14 12:10 | General Progress Note ---
Assessment/Plan Problem List: (1) Substance abuse ICD Codes: F19.10 - Other psychoactive substance abuse, uncomplicated SNOMED: 81811172 (2) Severe sepsis ICD Codes: A41.9 - Sepsis, unspecified organism; R65.20 - Severe sepsis without septic shock SNOMED: 14290266 (3) LUCRECIA (acute kidney injury) ICD Codes: N17.9 - Acute kidney failure, unspecified SNOMED: 45869474 Status: progressing Assessment/Plan abx per id afebrile fluid collection close to buttock consulted dr ramirez for possible abscess collection poly substance use azotemia Subjective ROS Limited/Unobtainable: Yes Allergies: Coded Allergies: NO KNOWN ALLERGIES (Verified Allergy, Unknown, 09/02/17) Objective Last 24 Hour Vital Signs Date Time Temp Pulse Resp B/P (MAP) Pulse Ox O2 Delivery O2 Flow Rate FiO2 09/14/17 10:08 130/79 09/14/17 10:06 81 130/79 (96) 09/14/17 09:00 Room Air 09/14/17 07:45 97.2 83 21 146/92 (110) 95 97.2 09/14/17 06:44 98.1 98.1 09/14/17 04:00 100.0 81 18 144/84 (104) 93 100.0 09/14/17 04:00 144/84 09/14/17 00:00 101.8 81 18 144/95 (111) 92 101.8 09/13/17 21:37 150/82 09/13/17 21:00 Nasal Cannula 4.0 09/13/17 20:00 99.9 84 18 150/82 (104) 96 99.9 09/13/17 16:09 139/85 09/13/17 16:00 99.3 91 20 139/85 (103) 95 99.3 09/13/17 15:30 99.8 90 16 157/89 97 Nasal Cannula 3 99.8 09/13/17 15:15 89 15 149/84 93 Nasal Cannula 3 09/13/17 15:00 84 12 145/83 92 Nasal Cannula 3 09/13/17 14:56 207.7 68 22 99 09/13/17 14:54 213.4 82 20 98 09/13/17 14:50 86 11 148/87 93 Nasal Cannula 3 09/13/17 14:40 86 11 159/92 95 Simple Mask 6 09/13/17 14:35 81 10 152/89 96 Simple Mask 6 09/13/17 14:32 100.9 83 12 144/89 97 Simple Mask 6 100.9 Intake and Output 09/13/17 09/14/17 19:00 07:00 Intake Total 1700 ml 660 ml Output Total 0 ml Balance 1700 ml 660 ml Intake Oral 400 ml IV Total 1300 ml 660 ml Estimated Blood Loss 0 ml # Voids 1 3 # Bowel Movements 2 6 Laboratory Tests 09/14/17 05:35: White Blood Count 21.3H, Red Blood Count 2.13L, Hemoglobin 7.2L, Hematocrit 20.0L, Mean Corpuscular Volume 94, Mean Corpuscular Hemoglobin 33.7H, Mean Corpuscular Hemoglobin Concent 35.9, Red Cell Distribution Width 11.4L, Platelet Count 659H, Mean Platelet Volume 5.8L, Neutrophils (%) (Auto) , Lymphocytes (%) (Auto) , Monocytes (%) (Auto) , Eosinophils (%) (Auto) , Basophils (%) (Auto) , Differential Total Cells Counted 100, Neutrophils % ( Manual) 88H, Lymphocytes % (Manual) 5L, Monocytes % (Manual) 7, Eosinophils % ( Manual) 0, Basophils % (Manual) 0, Band Neutrophils 0, Platelet Estimate IncreasedH, Platelet Morphology Normal, Hypochromasia 3+, Anisocytosis 1+, Spherocytes 2+, Sodium Level 138, Potassium Level 4.1, Chloride Level 96L, Carbon Dioxide Level 28, Anion Gap 14, Blood Urea Nitrogen 73H, Creatinine 12.3H , Estimat Glomerular Filtration Rate 4.6, Glucose Level 130H, Calcium Level 7.7L , Total Bilirubin 0.5, Aspartate Amino Transf (AST/SGOT) 61H, Alanine Aminotransferase (ALT/SGPT) 58, Alkaline Phosphatase 90, Total Protein 6.2L, Albumin 1.9L, Globulin 4.3, Albumin/Globulin Ratio 0.4L Height (Feet): 5 Height (Inches): 5.00 Weight (Pounds): 207 Respiratory/Chest: lungs clear Abdomen: soft Mode Dutta MD Sep 14, 2017 12:10
[2017-09-14] MEDS: Micafungin 100 MG in NS 110 ML IVPB SCH (13:11)
--- NOTE | 2017-09-14 13:33 | Infectious Diseases Prog Note ---
Assessment/Plan Assessment/Plan A: Aspiration PNA -CXR 09/04 : Interim development of hazy interstitial and airspace disease in the right lung. This may to some extent be an artifact of less optimal inspiration, however. Interim extubation -sp cx normal ann; repeat sp cx MSSA -legionella ag urine neg Sp sepsis - Leukocytosis No source found -u/a wbc 5-10, nit neg, leuk +1; cx neg -Bcx NTD (09/05 abd 09/07) -2d Echo (limited but no vegetations seen) - No Veg on KATELYN 09/10/17 - Tagged WBCs no focal uptake - MRI pelvis 09/11/17 : Diffuse symmetric edema of the bilateral buttock musculature , ? Myositis Discrete 3 x 3 x 7.3 cm fluid collection in the lateral left buttock musculature 09/13 SP No purulent material aspirated. Only small amount of blood aspirated Cx : P Fever: soruce ? Rhabdo vs pancreatitis -Cdiff neg -v/duplex no DVT -HIV ab sc and VL neg, RPR/FTA, GC/CL neg Hep C +; VL pending -ABD US: Gallbladder sludge. Negative for gallstones or dilated ducts. Equivocal increased hepatic echogenicity, if real could indicate hepatocellular disease such as fatty change. Borderline hepatomegaly. Mildly increased renal echogenicity, could indicate medical renal disease. Correlate with renal function tests. Left pleural effusion -Hep A and B immune Drug overdose -UDS + opiates, amphetamines, THC, cocaine -+empty heroin needles (found on hotel room) Multiorgan failure -LUCRECIA, - on HD -Transaminitis, (shock liver); improving -VDRF (airway protection)- extubaetd 09/03 Lactic acidosis; resolved Rhabdomyolisis; improving Pancreatitis- drug induced -neg alcohol levels Encephalopathy - improved -CT head 09/04: Unusual scalp contusion, new since prior study 08/29/2017. No evidence of underlying calvarial trauma. Negative for acute intracranial bleed or mass effect Plan: -Continue IV Micafungin # /-10 ( Emperic coverage of fungemia ) add IV Dapto d# 1 ( may stop Dapto if CK worsen or more than 10x Nl ) and Merrem d# 1 ( empirically ) and DC empiric IV Vanco and Zosyn # 9 -09/04 SP IV Azithromycin #3 -09/03 SP Zosyn #6 - Blood Cx - monitor Buttock drainage Cx -Monitor CBC/CMP, temperatures -aspiration precautions - P Smear in AM -CRP - Monitor CK -Neuro,cardio, renal, GI f/u Subjective Allergies: Coded Allergies: NO KNOWN ALLERGIES (Verified Allergy, Unknown, 09/02/17) Subjective Febrile SP aspiration of non purulent material Objective Vital Signs Last 24 Hour Vital Signs Date Time Temp Pulse Resp B/P (MAP) Pulse Ox O2 Delivery O2 Flow Rate FiO2 09/14/17 12:51 100.8 09/14/17 12:09 100.8 86 22 135/69 (91) 95 100.8 09/14/17 10:08 130/79 09/14/17 10:06 81 130/79 (96) 09/14/17 09:00 Room Air 09/14/17 07:45 97.2 83 21 146/92 (110) 95 97.2 09/14/17 06:44 98.1 98.1 09/14/17 04:00 100.0 81 18 144/84 (104) 93 100.0 09/14/17 04:00 144/84 09/14/17 00:00 101.8 81 18 144/95 (111) 92 101.8 09/13/17 21:37 150/82 09/13/17 21:00 Nasal Cannula 4.0 09/13/17 20:00 99.9 84 18 150/82 (104) 96 99.9 09/13/17 16:09 139/85 09/13/17 16:00 99.3 91 20 139/85 (103) 95 99.3 09/13/17 15:30 99.8 90 16 157/89 97 Nasal Cannula 3 99.8 09/13/17 15:15 89 15 149/84 93 Nasal Cannula 3 09/13/17 15:00 84 12 145/83 92 Nasal Cannula 3 09/13/17 14:56 207.7 68 22 99 09/13/17 14:54 213.4 82 20 98 09/13/17 14:50 86 11 148/87 93 Nasal Cannula 3 09/13/17 14:40 86 11 159/92 95 Simple Mask 6 09/13/17 14:35 81 10 152/89 96 Simple Mask 6 09/13/17 14:32 100.9 83 12 144/89 97 Simple Mask 6 100.9 Height (Feet): 5 Height (Inches): 5.00 Weight (Pounds): 207 HEENT: anicteric Respiratory/Chest: normal breath sounds Cardiovascular: normal peripheral pulses Abdomen: non distended Microbiology Date/Time Source Procedure Growth Status 09/13/17 14:20 Drainage Fluid Gram Stain - Final Resulted 09/13/17 14:20 Drainage Fluid Body Fluid Culture - Preliminary NO GROWTH Resulted 09/13/17 11:48 Urine,Clean Catch Urine Culture - Preliminary NO GROWTH Resulted Laboratory Tests Test 09/14/17 05:35 White Blood Count 21.3 K/UL (4.8-10.8) H Red Blood Count 2.13 M/UL (4.70-6.10) L Hemoglobin 7.2 G/DL (14.2-18.0) L Hematocrit 20.0 % (42.0-52.0) L Mean Corpuscular Volume 94 FL (80-99) Mean Corpuscular Hemoglobin 33.7 PG (27.0-31.0) H Mean Corpuscular Hemoglobin Concent 35.9 G/DL (32.0-36.0) Red Cell Distribution Width 11.4 % (11.6-14.8) L Platelet Count 659 K/UL (150-450) H Mean Platelet Volume 5.8 FL (6.5-10.1) L Neutrophils (%) (Auto) % (45.0-75.0) Lymphocytes (%) (Auto) % (20.0-45.0) Monocytes (%) (Auto) % (1.0-10.0) Eosinophils (%) (Auto) % (0.0-3.0) Basophils (%) (Auto) % (0.0-2.0) Differential Total Cells Counted 100 Neutrophils % (Manual) 88 % (45-75) H Lymphocytes % (Manual) 5 % (20-45) L Monocytes % (Manual) 7 % (1-10) Eosinophils % (Manual) 0 % (0-3) Basophils % (Manual) 0 % (0-2) Band Neutrophils 0 % (0-8) Platelet Estimate Increased H Platelet Morphology Normal Hypochromasia 3+ Anisocytosis 1+ Spherocytes 2+ Sodium Level 138 MMOL/L (136-145) Potassium Level 4.1 MMOL/L (3.5-5.1) Chloride Level 96 MMOL/L (98-107) L Carbon Dioxide Level 28 MMOL/L (21-32) Anion Gap 14 mmol/L (5-15) Blood Urea Nitrogen 73 mg/dL (7-18) H Creatinine 12.3 MG/DL (0.55-1.30) H Estimat Glomerular Filtration Rate 4.6 mL/min (>60) Glucose Level 130 MG/DL (74-106) H Calcium Level 7.7 MG/DL (8.5-10.1) L Total Bilirubin 0.5 MG/DL (0.2-1.0) Aspartate Amino Transf (AST/SGOT) 61 U/L (15-37) H Alanine Aminotransferase (ALT/SGPT) 58 U/L (12-78) Alkaline Phosphatase 90 U/L (46-116) Total Protein 6.2 G/DL (6.4-8.2) L Albumin 1.9 G/DL (3.4-5.0) L Globulin 4.3 g/dL Albumin/Globulin Ratio 0.4 (1.0-2.7) L Current Medications Medications (Trade) Dose Ordered Sig/Krystyna Route PRN Reason Start Time Stop Time Status Last Admin Dose Admin Acetaminophen (Tylenol) 650 mg Q4H PRN ORAL Fever (temp>100.5F) 09/05/17 18:30 10/05/17 18:29 09/14/17 12:51 Chlorhexidine Gluconate (Jyotsna-Hex 2%) 1 applic DAILY@1999 TOPIC 09/05/17 20:00 09/29/17 19:59 09/13/17 21:34 Clonidine HCl (Catapres tab) 0.1 mg Q6H ORAL 09/10/17 04:00 10/10/17 03:59 09/14/17 10:08 Dextrose (Dextrose 50%) 25 ml STAT PRN IV Hypoglycemia 09/05/17 18:30 10/05/17 18:29 Dextrose (Dextrose 50%) 50 ml STAT PRN IV Hypoglycemia 09/05/17 18:30 10/05/17 18:29 Famotidine (Pepcid) 20 mg DAILY ORAL 09/07/17 09:00 10/07/17 08:59 09/14/17 10:08 Heparin Sodium (Porcine) (Heparin 5000 units/ml) 5,000 units EVERY 12 HOURS SUBQ 09/05/17 21:00 09/28/17 20:59 09/14/17 10:09 Methadone HCl (Methadone HCl) 10 mg Q6H ORAL 09/10/17 12:00 09/16/17 21:00 09/13/17 17:29 Micafungin Sodium 100 mg/Sodium Chloride 110 ml @ 110 mls/hr Q24H IVPB 09/07/17 13:00 09/14/17 23:59 09/14/17 13:11 Mirtazapine (Remeron) 15 mg BEDTIME ORAL 09/05/17 21:00 10/04/17 20:59 09/13/17 21:34 Nitroglycerin (Ntg) 0.4 mg Q5M PRN SL Prn Chest Pain 09/05/17 18:30 09/28/17 14:44 Piperacillin Sod/ Tazobactam Sod 2.25 gm/Dextrose 55 ml @ 110 mls/hr Q8HR IVPB 09/06/17 16:00 09/15/17 23:59 09/14/17 05:42 Quetiapine Fumarate (SEROquel) 25 mg TID ORAL 09/12/17 20:45 10/12/17 20:44 09/14/17 10:08 Quetiapine Fumarate (SEROquel) 50 mg Q4H PRN ORAL agitation 09/10/17 14:00 10/10/17 13:59 09/12/17 18:27 Sodium Bicarbonate 50 ml/ Dextrose/Sodium Chloride 1,000 ml @ 50 mls/hr Q20H IV 09/09/17 22:00 10/09/17 21:59 09/14/17 01:50 Vancomycin HCl (Vanco rx to dose) 1 ea DAILY PRN MISC Per rx protocol 09/06/17 15:00 10/06/17 14:59 Carl Carranza MD Sep 14, 2017 13:33
--- NOTE | 2017-09-14 13:51 | Neurology Progress Note ---
Interim History Interim History Interim History Mr. Stover feels better. He slept relatively well last night. He feels that his mind is clearing up. He however is still forgetful. He is still gets confused and has problems with orientation. His appetite is better and he is eating more. He is generally stronger and walked with the help of his therapist today. He denies any new neurologic symptoms. He specifically denies any weakness on one side or the other, numbness on one side or the other, problems with speech, problems with language, or problems with vision. Review of Systems Neuro Review of Systems Benign. Objective Physical Exam Last Vital Signs Date Time Temp Pulse Resp B/P (MAP) Pulse Ox O2 Delivery O2 Flow Rate FiO2 09/14/17 12:51 100.8 09/14/17 12:09 86 22 135/69 (91) 95 09/14/17 09:00 Room Air 09/13/17 21:00 4.0 09/12/17 20:13 21 Laboratory Tests Test 09/14/17 05:35 White Blood Count 21.3 K/UL (4.8-10.8) H Red Blood Count 2.13 M/UL (4.70-6.10) L Hemoglobin 7.2 G/DL (14.2-18.0) L Hematocrit 20.0 % (42.0-52.0) L Mean Corpuscular Volume 94 FL (80-99) Mean Corpuscular Hemoglobin 33.7 PG (27.0-31.0) H Mean Corpuscular Hemoglobin Concent 35.9 G/DL (32.0-36.0) Red Cell Distribution Width 11.4 % (11.6-14.8) L Platelet Count 659 K/UL (150-450) H Mean Platelet Volume 5.8 FL (6.5-10.1) L Neutrophils (%) (Auto) % (45.0-75.0) Lymphocytes (%) (Auto) % (20.0-45.0) Monocytes (%) (Auto) % (1.0-10.0) Eosinophils (%) (Auto) % (0.0-3.0) Basophils (%) (Auto) % (0.0-2.0) Differential Total Cells Counted 100 Neutrophils % (Manual) 88 % (45-75) H Lymphocytes % (Manual) 5 % (20-45) L Monocytes % (Manual) 7 % (1-10) Eosinophils % (Manual) 0 % (0-3) Basophils % (Manual) 0 % (0-2) Band Neutrophils 0 % (0-8) Platelet Estimate Increased H Platelet Morphology Normal Hypochromasia 3+ Anisocytosis 1+ Spherocytes 2+ Sodium Level 138 MMOL/L (136-145) Potassium Level 4.1 MMOL/L (3.5-5.1) Chloride Level 96 MMOL/L (98-107) L Carbon Dioxide Level 28 MMOL/L (21-32) Anion Gap 14 mmol/L (5-15) Blood Urea Nitrogen 73 mg/dL (7-18) H Creatinine 12.3 MG/DL (0.55-1.30) H Estimat Glomerular Filtration Rate 4.6 mL/min (>60) Glucose Level 130 MG/DL (74-106) H Calcium Level 7.7 MG/DL (8.5-10.1) L Total Bilirubin 0.5 MG/DL (0.2-1.0) Aspartate Amino Transf (AST/SGOT) 61 U/L (15-37) H Alanine Aminotransferase (ALT/SGPT) 58 U/L (12-78) Alkaline Phosphatase 90 U/L (46-116) Total Protein 6.2 G/DL (6.4-8.2) L Albumin 1.9 G/DL (3.4-5.0) L Globulin 4.3 g/dL Albumin/Globulin Ratio 0.4 (1.0-2.7) L Neurologic Exam Objective PHYSICAL EXAMINATION: GENERAL: He is a well-developed, well-nourished, gentleman, lying in bed. HEAD: Normocephalic and atraumatic. EENT: Examination benign. NECK: No neck rigidity was observed. NEUROLOGIC EXAMINATION: MENTAL STATUS EXAMINATION: He was awake and much more alert. He was oriented to self, and September 2017. He did not know the exact date and name of the hospital. He was able to recall 3/3 words immediately, but could only remember 2/3 in 1 and 3 minutes. He was able to remember Trump but could not remember other [place] presidents. SPEECH: He had no dysarthria. LANGUAGE: He had no aphasia. CRANIAL NERVE EXAMINATION: II: The visual dinh were intact on confrontation testing. III, IV & : The external ocular movements were present. The pupils were 3 mm in diameter and reactive sluggishly to light. V: He had normal facial sensations and the temporales, masseters and pterygoids functioned well. VII: He had normal facial expressions and no facial asymmetry. VIII: He was able to hear well and had no nystagmus. IX: The palate moved symmetrically on phonation. X: He had no hoarseness of voice. XI: The sternocleidomastoids and trapezii functioned well. XII: The tongue was in the midline. MOTOR SYSTEM: The tone was normal in all four extremities. Examination of muscle mass revealed no focal wasting. Examination of power revealed G 5/5 power in all muscle groups except for G 0/5 in the right ankle dorsiflexors and toe extensors, G 3+/5 in the right ankle plantar flexors and toe flexors, G 5-/5 in the left ankle dorsiflexors and toe extensors, and G 4/5 in the iliopsoas muscle bilaterally. SENSORY EXAMINATION: He was able to discern pin prick and light ouch but complained of altered sensations in the right peroneal distribution. REFLEXES: Trace+ and bilaterally symmetrical at the biceps, triceps, brachioradialis, and knees, 0 at both ankles. The plantar responses were flexor bilaterally. COORDINATION: He performed well on finger to nose testing. STANCE & GAIT: Could not be tested. Impression/Recommendations Diagnostic Impression 1. Mr. Enoch Stover is a 37-year-old, gentleman, of unknown handedness, who was found unconscious in a hotel room on 08/29/2017 after he had used multiple drugs. He was found to be possibly febrile, hypoglycemic, and breathing rapidly. Since then, he has been hospitalized and treated for sepsis. 2. He feels better. He slept relatively well last night. He feels that his mind is clearing up. He however is still forgetful. He is still gets confused and has problems with orientation. His appetite is better and he is eating more. He is generally stronger and walked with the help of his therapist today. He denies any new neurologic symptoms. 3. On neurological examination, at this time, he is awake and alert. He is oriented to the month and year, but not to the exact date and the name of the hospital. He does have problems with recent and remote memory. His speech and language are normal. His cranial nerves are also functioning normally. His motor function is relatively good he however has mild proximal lower extremity weakness, and in addition right > left distal lower extremity weakness with a severe right peroneal nerve dysfunction and now some right tibial nerve dysfunction. His sensations are also altered in the right peroneal distribution. His deep tendon reflexes are diminished but his plantar responses are flexor. He also does not demonstrate any definite focal or lateralizing neurological findings. 4. The CT scan of the brain performed on 08/29/2017 and repeated on 09/04/17 is benign for acute pathology. 5. Laboratory data obtained thus far revealed, on admission, his hemoglobin was elevated to 18.4, his WBC was normal at 8,500, but since then his WBCs have peaked to 17,200. His chemistry panel on admission revealed BUN elevated to 31 , creatinine elevated to 3.6, lactic acid elevated to 5.5, bilirubin elevated at 1.2, AST elevated at 478, ALT elevated to 159, CK elevated to greater than 10 ,000, troponin elevated at 1.01, BNP elevated to 2143. His urine toxicology screen was positive for opiates, amphetamines, cocaine, and marijuana. His INR was elevated at 1.2. His TSH is elevated at 4.72. The T3 is low but the T4 is normal. 6. The patient's history, neurological examination, laboratory data, and imaging studies are most compatible with an altered mental state due to a toxic metabolic encephalopathy. 7. The most likely etiology for the encephalopathy is the sepsis, possibly a period of hypoglycemia and ongoing multiple metabolic imbalances and the toxic imbalances. In addition the use of mind-altering drugs could have also been contributing. 8. His encephalopathy is still waxing and waning and is better today. 9. He has also developed bilateral mild proximal lower extremity weakness, and in addition right > left distal lower extremity weakness with a severe right peroneal nerve dysfunction and now some right tibial nerve dysfunction. His sensations are also altered in the right peroneal distribution. Recommendations 1. Continue present management. 2. Continue aggressive treatment of the patient's infectious process. 3. Aggressive management of toxic/metabolic imbalances. 4. AFO for right foot drop. 5. PT/OT. 6. Observe closely. Chris Ricketts M.D., M.S.[facility].H. CHRIS RICKETTS Sep 14, 2017 13:51
[2017-09-14] MEDS ORDERED: Meropenem 1 GM in NS 55 ML IVPB ONE (16:00)
[2017-09-14] MEDS ORDERED: DAPTOmycin 550 MG in NS 55 ML IV SCH (17:00)
[2017-09-14] MEDS ORDERED: Meropenem 1 GM in NS 55 ML IVPB SCH (20:00)
[2017-09-14] MEDS: DAPTOmycin 550 MG in NS 55 ML IV SCH (20:53)
[2017-09-14] MEDS: Dyna-Hex 2% Top Sol 2oz TOPIC SCH (20:55)
[2017-09-15] VITALS: BP 141/81
[2017-09-15 04:00] VITALS: BP 147/79
[2017-09-15] MEDS: cloNIDine 0.2mg Tab ORAL SCH ×4 (04:56→21:23)
[2017-09-15 07:21] VITALS: BP 138/71
[2017-09-15 07:54] LABS: HEMATOCRIT 20.5 % (42.0-52.0); HEMOGLOBIN 6.8 G/DL (14.2-18.0); MEAN CORPUSCULAR VOLUME 95 FL (80-99); PLATELET COUNT 702 K/UL (150-450); RED BLOOD COUNT 2.16 M/UL (4.70-6.10); RED CELL DISTRIBUTION WIDTH 11.7 % (11.6-14.8); WHITE BLOOD COUNT 19.4 K/UL (4.8-10.8)
[2017-09-15 08:22] LABS: CREATINE KINASE 471 U/L (26-308)
--- NOTE | 2017-09-15 08:23 | General Progress Note ---
Assessment/Plan Problem List: (1) Substance abuse ICD Codes: F19.10 - Other psychoactive substance abuse, uncomplicated SNOMED: 20412423 (2) Respiratory failure ICD Codes: J96.90 - Respiratory failure, unspecified, unspecified whether with hypoxia or hypercapnia SNOMED: 577712066 Qualifiers: Qualified Codes: J96.01 - Acute respiratory failure with hypoxia (3) Rhabdomyolysis ICD Codes: M62.82 - Rhabdomyolysis SNOMED: 110392882 Qualifiers: Qualified Codes: T79.6XXA - Traumatic ischemia of muscle, initial encounter (4) NSTEMI (non-ST elevated myocardial infarction) ICD Codes: I21.4 - Non-ST elevation (NSTEMI) myocardial infarction SNOMED: 214747913 (5) LUCRECIA (acute kidney injury) ICD Codes: N17.9 - Acute kidney failure, unspecified SNOMED: 02167885 Status: unchanged Assessment/Plan vent abx neuro psyc eval cbc bmp am Subjective Constitutional: Reports: weakness Allergies: Coded Allergies: NO KNOWN ALLERGIES (Verified Allergy, Unknown, 09/02/17) All Systems: reviewed and negative except above Subjective sleepy lethargic Objective Last 24 Hour Vital Signs Date Time Temp Pulse Resp B/P (MAP) Pulse Ox O2 Delivery O2 Flow Rate FiO2 09/15/17 07:21 98.8 86 21 138/71 (93) 97 98.8 09/15/17 04:56 147/79 09/15/17 04:00 99.8 82 22 147/79 (101) 95 99.8 09/15/17 00:00 100.3 89 21 141/81 (101) 93 100.3 09/14/17 23:22 100.0 09/14/17 22:23 101.6 09/14/17 22:20 166/91 09/14/17 21:00 Room Air 09/14/17 20:33 Room Air 4.0 21 09/14/17 20:00 99.1 71 21 166/91 (116) 100 99.1 09/14/17 16:00 149/87 09/14/17 15:47 99.1 87 18 149/87 (107) 94 99.1 09/14/17 15:10 Room Air 4.0 21 09/14/17 12:51 100.8 09/14/17 12:09 100.8 86 22 135/69 (91) 95 100.8 09/14/17 10:08 130/79 09/14/17 10:06 81 130/79 (96) 09/14/17 09:00 Room Air Intake and Output 09/14/17 09/15/17 19:00 07:00 Intake Total 1220 ml 505 ml Output Total 2800 ml Balance 1220 ml -2295 ml Intake Oral 620 ml IV Total 500 ml 505 ml Other 100 ml Output Urine Total 500 ml Hemodialysis UF 2300 ml # Voids 2 # Bowel Movements 2 Laboratory Tests 09/15/17 05:45: White Blood Count 19.4H, Red Blood Count 2.16L, Hemoglobin 6.8*L, Hematocrit 20.5L, Mean Corpuscular Volume 95, Mean Corpuscular Hemoglobin 31.7H, Mean Corpuscular Hemoglobin Concent 33.4, Red Cell Distribution Width 11.7, Platelet Count 702H, Mean Platelet Volume 5.8L, Neutrophils (%) (Auto) , Lymphocytes (%) (Auto) , Monocytes (%) (Auto) , Eosinophils (%) (Auto) , Basophils (%) (Auto) , Neutrophils % (Manual) [Pending], Lymphocytes % (Manual) [Pending], Platelet Estimate [Pending], Platelet Morphology [Pending], Total Creatine Kinase [ Pending], C-Reactive Protein, Quantitative [Pending] Height (Feet): 5 Height (Inches): 5.00 Weight (Pounds): 218 General Appearance: lethargic EENT: normal ENT inspection Neck: normal alignment Cardiovascular: normal peripheral pulses Respiratory/Chest: chest wall non-tender, lungs clear, normal breath sounds Abdomen: normal bowel sounds, non tender, soft Extremities: normal inspection Edema: no edema noted Arm (L), no edema noted Arm (R), no edema noted Leg (L), no edema noted Leg (R), no edema noted Pedal (L), no edema noted Pedal (R), no edema noted Generalized Neurologic: motor weakness Skin: normal pigmentation, warm/dry Reid Anaya DO Sep 15, 2017 08:23
[2017-09-15] MEDS: Heparin 5000 units/ml inj SUBQ SCH ×2 (09:00→21:26)
[2017-09-15] MEDS ORDERED: Tubing IV Secondary IV ONE (09:08)
[2017-09-15 12:00] VITALS: BP 146/79
--- NOTE | 2017-09-15 13:41 | Neurology Progress Note ---
Interim History Interim History Interim History Mr. Stover feels better. He slept well last night. He feels more energetic. He just got a RBC transfusion. He feels that his mind is clearing up. He however is still forgetful. He is still gets confused and has problems with orientation. His appetite is better and he is eating more. He is generally stronger. He has not walked today. He denies any new neurologic symptoms. He specifically denies any weakness on one side or the other, numbness on one side or the other, problems with speech, problems with language, or problems with vision. Review of Systems Neuro Review of Systems Benign. Objective Physical Exam Last Vital Signs Date Time Temp Pulse Resp B/P (MAP) Pulse Ox O2 Delivery O2 Flow Rate FiO2 09/15/17 12:00 97.5 76 20 146/79 (101) 96 97.5 09/14/17 21:00 Room Air 09/14/17 20:33 4.0 21 Laboratory Tests Test 09/15/17 05:45 White Blood Count 19.4 K/UL (4.8-10.8) H Red Blood Count 2.16 M/UL (4.70-6.10) L Hemoglobin 6.8 G/DL (14.2-18.0) *L Hematocrit 20.5 % (42.0-52.0) L Mean Corpuscular Volume 95 FL (80-99) Mean Corpuscular Hemoglobin 31.7 PG (27.0-31.0) H Mean Corpuscular Hemoglobin Concent 33.4 G/DL (32.0-36.0) Red Cell Distribution Width 11.7 % (11.6-14.8) Platelet Count 702 K/UL (150-450) H Mean Platelet Volume 5.8 FL (6.5-10.1) L Neutrophils (%) (Auto) % (45.0-75.0) Lymphocytes (%) (Auto) % (20.0-45.0) Monocytes (%) (Auto) % (1.0-10.0) Eosinophils (%) (Auto) % (0.0-3.0) Basophils (%) (Auto) % (0.0-2.0) Differential Total Cells Counted 100 Neutrophils % (Manual) 86 % (45-75) H Lymphocytes % (Manual) 3 % (20-45) L Monocytes % (Manual) 10 % (1-10) Eosinophils % (Manual) 1 % (0-3) Basophils % (Manual) 0 % (0-2) Band Neutrophils 0 % (0-8) Platelet Estimate Increased H Platelet Morphology Normal Hypochromasia 1+ Total Creatine Kinase 471 U/L (26-308) H C-Reactive Protein, Quantitative 25.0 mg/dL (0.00-0.90) H Neurologic Exam Objective PHYSICAL EXAMINATION: GENERAL: He is a well-developed, well-nourished, gentleman, lying in bed. HEAD: Normocephalic and atraumatic. EENT: Examination benign. NECK: No neck rigidity was observed. NEUROLOGIC EXAMINATION: MENTAL STATUS EXAMINATION: He was awake and alert. He was oriented to [facility] and September 2017. He did not know the exact date. He was able to recall 3/3 words immediately, but could only remember 2/3 in 1 and 3 minutes. He was able to remember Trump but could not remember other [place] presidents. SPEECH: He had no dysarthria. LANGUAGE: He had no aphasia. CRANIAL NERVE EXAMINATION: II: The visual dinh were intact on confrontation testing. III, IV & : The external ocular movements were present. The pupils were 3 mm in diameter and reactive sluggishly to light. V: He had normal facial sensations and the temporales, masseters and pterygoids functioned well. VII: He had normal facial expressions and no facial asymmetry. VIII: He was able to hear well and had no nystagmus. IX: The palate moved symmetrically on phonation. X: He had no hoarseness of voice. XI: The sternocleidomastoids and trapezii functioned well. XII: The tongue was in the midline. MOTOR SYSTEM: The tone was normal in all four extremities. Examination of muscle mass revealed no focal wasting. Examination of power revealed G 5/5 power in all muscle groups except for G 0/5 in the right ankle dorsiflexors, toe extensors, ankle plantar flexors and toe flexors, G 5-/5 in the left ankle dorsiflexors and toe extensors, and G 4/5 in the iliopsoas muscle bilaterally. SENSORY EXAMINATION: He was able to discern pin prick and light touch but complained of altered sensations in the right peroneal distribution. REFLEXES: Trace+ and bilaterally symmetrical at the biceps, triceps, brachioradialis, and knees, 0 at both ankles. The plantar responses were flexor bilaterally. COORDINATION: He performed well on finger to nose testing. STANCE & GAIT: Could not be tested. Impression/Recommendations Diagnostic Impression 1. Mr. Enoch Stover is a 37-year-old, gentleman, of unknown handedness, who was found unconscious in a hotel room on 08/29/2017 after he had used multiple drugs. He was found to be possibly febrile, hypoglycemic, and breathing rapidly. Since then, he has been hospitalized and treated for sepsis. 2. He feels feels better. He slept well last night. He feels more energetic. He just got a RBC transfusion. He feels that his mind is clearing up. He however is still forgetful. He is still gets confused and has problems with orientation. His appetite is better and he is eating more. He is generally stronger. He has not walked today. He denies any new neurologic symptoms. 3. On neurological examination, at this time, he is awake and alert. He is well oriented except to the exact date. He does have problems with recent and remote memory. His speech and language are normal. His cranial nerves are also functioning normally. His motor function is relatively good he however has mild proximal lower extremity weakness, and mild distal left lower extremity weakness with no movement in the right ankle and toes. His sensations are altered in the right peroneal distribution. His deep tendon reflexes are diminished but his plantar responses are flexor. He also does not demonstrate any definite focal or lateralizing neurological findings. 4. The CT scan of the brain performed on 08/29/2017 and repeated on 09/04/17 is benign for acute pathology. 5. Laboratory data obtained thus far revealed, on admission, his hemoglobin was elevated to 18.4, his WBC was normal at 8,500, but since then his WBCs have peaked to 17,200. His chemistry panel on admission revealed BUN elevated to 31 , creatinine elevated to 3.6, lactic acid elevated to 5.5, bilirubin elevated at 1.2, AST elevated at 478, ALT elevated to 159, CK elevated to greater than 10 ,000, troponin elevated at 1.01, BNP elevated to 2143. His urine toxicology screen was positive for opiates, amphetamines, cocaine, and marijuana. His INR was elevated at 1.2. His TSH is elevated at 4.72. The T3 is low but the T4 is normal. 6. The patient's history, neurological examination, laboratory data, and imaging studies are most compatible with an altered mental state due to a toxic metabolic encephalopathy. 7. The most likely etiology for the encephalopathy is the sepsis, possibly a period of hypoglycemia and ongoing multiple metabolic imbalances and the toxic imbalances. In addition the use of mind-altering drugs could have also been contributing. 8. His encephalopathy is still waxing and waning and is better today. 9. He has also developed bilateral mild proximal lower extremity weakness, and in addition severe right distal lower extremity weakness with severe right peroneal and tibial nerve dysfunction. His sensations are also altered in the right peroneal distribution. Recommendations 1. Continue present management. 2. Continue aggressive treatment of the patient's infectious process. 3. Aggressive management of toxic/metabolic imbalances. 4. AFO for right foot drop. 5. PT/OT. 6. Observe closely. Chris Ricketts M.D., M.S.P.CHRIS GARDINER Sep 15, 2017 13:41
[2017-09-15 16:00] VITALS: BP 142/87
[2017-09-15] MEDS: Meropenem 500mg/NS 55ml IVPB SCH ×2 (16:50)
[2017-09-15] MEDS: D5 IV SCH ×2 (18:38→22:30)
[2017-09-15] MEDS: [UNRECOGNIZED DRUG - OTHER] IV SCH ×2 (18:38→22:30)
[2017-09-15] MEDS: SODIUM BICARBONATE IV SCH ×2 (18:38→22:30)
[2017-09-15 20:00] VITALS: BP 151/83
--- NOTE | 2017-09-15 20:46 | General Progress Note ---
Assessment/Plan Assessment/Plan # Leukocytosis. due to infection, however no source is found --> Closely monitor for improvement. --> 09/12: WBC 21.0 --> Cont IV abx as per ID --> Currently afebrile. # Anemia of chronic disease --> Currently stable. --> obtain further workup with ferritin and tibc --> Closely monitor. # Thrombocytosis. Likely reactive process to anemia --> Closely monitor PLT count for improvement. --> should improve with improvement in anemia as well # Transaminitis. Trending downwards. The time the note was entered does not necessarily correspond to the time the patient was seen. Subjective Date patient seen: Sep 14, 2017 Allergies: Coded Allergies: NO KNOWN ALLERGIES (Verified Allergy, Unknown, 09/02/17) All Systems: reviewed and negative except above Subjective Pt awake and confused. No acute events. Pt afebrile. Family at bedside. Objective Last 24 Hour Vital Signs Date Time Temp Pulse Resp B/P (MAP) Pulse Ox O2 Delivery O2 Flow Rate FiO2 09/15/17 20:00 100.7 85 21 151/83 (105) 94 100.7 09/15/17 18:10 99.7 09/15/17 17:11 101.2 09/15/17 16:53 142/87 09/15/17 16:00 101.2 87 20 142/87 (105) 96 101.2 09/15/17 12:00 97.5 76 20 146/79 (101) 96 97.5 09/15/17 10:09 99.1 09/15/17 09:28 138/71 09/15/17 09:00 Room Air 09/15/17 07:21 98.8 86 21 138/71 (93) 97 98.8 09/15/17 04:56 147/79 09/15/17 04:00 99.8 82 22 147/79 (101) 95 99.8 09/15/17 00:00 100.3 89 21 141/81 (101) 93 100.3 09/14/17 22:23 101.6 09/14/17 22:20 166/91 09/14/17 21:00 Room Air Intake and Output 09/14/17 09/15/17 19:00 07:00 Intake Total 1220 ml 505 ml Output Total 2800 ml Balance 1220 ml -2295 ml Intake Oral 620 ml IV Total 500 ml 505 ml Other 100 ml Output Urine Total 500 ml Hemodialysis UF 2300 ml # Voids 2 # Bowel Movements 2 Laboratory Tests 09/15/17 05:45: White Blood Count 19.4H, Red Blood Count 2.16L, Hemoglobin 6.8*L, Hematocrit 20.5L, Mean Corpuscular Volume 95, Mean Corpuscular Hemoglobin 31.7H, Mean Corpuscular Hemoglobin Concent 33.4, Red Cell Distribution Width 11.7, Platelet Count 702H, Mean Platelet Volume 5.8L, Neutrophils (%) (Auto) , Lymphocytes (%) (Auto) , Monocytes (%) (Auto) , Eosinophils (%) (Auto) , Basophils (%) (Auto) , Differential Total Cells Counted 100, Neutrophils % (Manual) 86H, Lymphocytes % (Manual) 3L, Monocytes % (Manual) 10, Eosinophils % (Manual) 1, Basophils % ( Manual) 0, Band Neutrophils 0, Platelet Estimate IncreasedH, Platelet Morphology Normal, Hypochromasia 1+, Total Creatine Kinase 471H, C-Reactive Protein, Quantitative 25.0H Height (Feet): 5 Height (Inches): 5.00 Weight (Pounds): 218 General Appearance: alert EENT: TMs normal Cardiovascular: normal rate Respiratory/Chest: no respiratory distress Abdomen: non tender Extremities: non-tender Neurologic: alert Skin: normal pigmentation Diogenes Flores MD Sep 15, 2017 20:46
[2017-09-15] MEDS: Dyna-Hex 2% Top Sol 2oz TOPIC SCH (21:22)
[2017-09-15 21:32] LABS: % IRON SATURATION 19 % (15-50); IRON 24 ug/dL (50-175); TOTAL IRON BINDING CAPACITY 126 ug/dL (250-450)
[2017-09-15 21:45] LABS: FERRITIN 1053 NG/ML (8-388)
[2017-09-16] VITALS: BP 145/88
[2017-09-16 04:00] VITALS: BP 137/87
[2017-09-16] MEDS: cloNIDine 0.2mg Tab ORAL SCH ×4 (04:16→21:10)
[2017-09-16 06:18] LABS: HEMATOCRIT 21.8 % (42.0-52.0); HEMOGLOBIN 7.4 G/DL (14.2-18.0); MEAN CORPUSCULAR VOLUME 94 FL (80-99); PLATELET COUNT 634 K/UL (150-450); RED BLOOD COUNT 2.32 M/UL (4.70-6.10); RED CELL DISTRIBUTION WIDTH 12.2 % (11.6-14.8); WHITE BLOOD COUNT 17.2 K/UL (4.8-10.8)
[2017-09-16 06:26] LABS: ANION GAP 9 mmol/L (5-15); BLOOD UREA NITROGEN 57 mg/dL (7-18); CALCIUM 8.3 MG/DL (8.5-10.1); CARBON DIOXIDE 32 MMOL/L (21-32); CHLORIDE 99 MMOL/L (98-107); CREATININE 9.7 MG/DL (0.55-1.30); POTASSIUM 3.5 MMOL/L (3.5-5.1); SODIUM 140 MMOL/L (136-145)
[2017-09-16 08:00] VITALS: BP 130/84
[2017-09-16] MEDS: Heparin 5000 units/ml inj SUBQ SCH ×2 (09:00→21:12)
--- NOTE | 2017-09-16 09:54 | General Progress Note ---
Assessment/Plan Status: stable Assessment/Plan # Anemia of chronic disease. --> Continue to closely monitor for stability. --> Obtain further workup with ferritin and tibc --> Hgb goal above >7 --> 09/15 1 unit PRBC. # Leukocytosis. due to infection, however no source is found --> Closely monitor for improvement. --> 09/15: WBC 19.4 --> Currently not on abx. --> Currently afebrile. # Thrombocytosis. Likely reactive process to anemia --> Closely monitor PLT count for improvement. --> should improve with improvement in anemia as well --> 09/15: PLT count of 702, remains elevated. # Transaminitis. Trending downwards. The time the note was entered does not necessarily correspond to the time the patient was seen. Subjective Date patient seen: Sep 15, 2017 ROS Limited/Unobtainable: Yes Hematologic/Lymphatic: Reports: anemia Allergies: Coded Allergies: NO KNOWN ALLERGIES (Verified Allergy, Unknown, 09/02/17) All Systems: reviewed and negative except above Subjective Pt awake and confused. Hgb of 6.8, blood tx planned. Objective Last 24 Hour Vital Signs Date Time Temp Pulse Resp B/P (MAP) Pulse Ox O2 Delivery O2 Flow Rate FiO2 09/16/17 09:00 Room Air 09/16/17 08:00 98.7 66 20 130/84 (99) 93 98.7 09/16/17 04:16 137/87 09/16/17 04:00 98.4 65 21 137/87 (104) 91 98.4 09/16/17 00:00 98.2 71 21 145/88 (107) 92 98.2 09/15/17 22:22 98.2 09/15/17 21:23 151/83 09/15/17 21:23 100.7 09/15/17 21:00 Room Air 09/15/17 20:00 100.7 85 21 151/83 (105) 94 100.7 09/15/17 17:11 101.2 09/15/17 16:53 142/87 09/15/17 16:00 101.2 87 20 142/87 (105) 96 101.2 09/15/17 12:00 97.5 76 20 146/79 (101) 96 97.5 09/15/17 10:09 99.1 Intake and Output 09/15/17 09/16/17 19:00 07:00 Intake Total 370 ml 550 ml Output Total 250 ml 650 ml Balance 120 ml -100 ml Intake Oral 320 ml IV Total 50 ml 550 ml Output Urine Total 250 ml 650 ml # Voids 3 # Bowel Movements 4 2 Laboratory Tests 09/16/17 05:25: White Blood Count 17.2H, Red Blood Count 2.32L, Hemoglobin 7.4L, Hematocrit 21.8L, Mean Corpuscular Volume 94, Mean Corpuscular Hemoglobin 31.9H, Mean Corpuscular Hemoglobin Concent 34.0, Red Cell Distribution Width 12.2, Platelet Count 634H, Mean Platelet Volume 5.9L, Neutrophils (%) (Auto) , Lymphocytes (%) (Auto) , Monocytes (%) (Auto) , Eosinophils (%) (Auto) , Basophils (%) (Auto) , Differential Total Cells Counted 100, Neutrophils % (Manual) 80H, Lymphocytes % (Manual) 10L, Monocytes % (Manual) 8, Eosinophils % (Manual) 2, Basophils % ( Manual) 0, Band Neutrophils 0, Platelet Estimate IncreasedH, Platelet Morphology Normal, Hypochromasia 3+, Anisocytosis 1+, Sodium Level 140, Potassium Level 3.5, Chloride Level 99, Carbon Dioxide Level 32, Anion Gap 9, Blood Urea Nitrogen 57H, Creatinine 9.7H, Estimat Glomerular Filtration Rate 6.0 , Glucose Level 105, Calcium Level 8.3L Height (Feet): 5 Height (Inches): 5.00 Weight (Pounds): 210 General Appearance: no apparent distress EENT: PERRL/EOMI Neck: normal alignment Cardiovascular: normal peripheral pulses Respiratory/Chest: no respiratory distress Abdomen: soft Diogenes Flores MD Sep 16, 2017 09:54
--- NOTE | 2017-09-16 10:08 | GI Progress Note ---
Assessment/Plan Problems: (1) Severe sepsis ICD Codes: A41.9 - Sepsis, unspecified organism; R65.20 - Severe sepsis without septic shock SNOMED: 12474556 (2) Rhabdomyolysis ICD Codes: M62.82 - Rhabdomyolysis SNOMED: 783447294 Qualifiers: Qualified Codes: T79.6XXA - Traumatic ischemia of muscle, initial encounter (3) Aspiration pneumonia ICD Codes: J69.0 - Pneumonitis due to inhalation of food and vomit SNOMED: 554432287 Qualifiers: Qualified Codes: J69.0 - Pneumonitis due to inhalation of food and vomit (4) Substance abuse ICD Codes: F19.10 - Other psychoactive substance abuse, uncomplicated SNOMED: 90949518 (5) Transaminitis ICD Codes: R74.0 - Nonspecific elevation of levels of transaminase and lactic acid dehydrogenase [LDH] SNOMED: 505821923, 800157716 Status: progressing Status Narrative Discussed with Dr. Chavez. Assessment/Plan Hep A immunity Hep C positive transaminitis >> downtrending, near normal levels cdiff negative stool culture >> gram negative bacillus elevated lipase >> downtrending OB stool negative renal diet abx supportive care ppi fu labs, lipase, trend LFTs outpatient Hep C tx The patient was seen and examined at bedside and all new and available data was reviewed in the patients chart. I agree with the above findings, impression and plan. (Patient seen earlier today. Signature stamp does not reflect patient encounter time.). - Efrain Chavez MD Subjective Subjective limited, has periods of confusion Objective Last 24 Hour Vital Signs Date Time Temp Pulse Resp B/P (MAP) Pulse Ox O2 Delivery O2 Flow Rate FiO2 09/16/17 10:03 140/73 09/16/17 09:00 Room Air 09/16/17 08:00 98.7 66 20 130/84 (99) 93 98.7 09/16/17 04:16 137/87 09/16/17 04:00 98.4 65 21 137/87 (104) 91 98.4 09/16/17 00:00 98.2 71 21 145/88 (107) 92 98.2 09/15/17 22:22 98.2 09/15/17 21:23 151/83 09/15/17 21:23 100.7 09/15/17 21:00 Room Air 09/15/17 20:00 100.7 85 21 151/83 (105) 94 100.7 09/15/17 17:11 101.2 09/15/17 16:53 142/87 09/15/17 16:00 101.2 87 20 142/87 (105) 96 101.2 09/15/17 12:00 97.5 76 20 146/79 (101) 96 97.5 09/15/17 10:09 99.1 Intake and Output 09/15/17 09/16/17 19:00 07:00 Intake Total 370 ml 550 ml Output Total 250 ml 650 ml Balance 120 ml -100 ml Intake Oral 320 ml IV Total 50 ml 550 ml Output Urine Total 250 ml 650 ml # Voids 3 # Bowel Movements 4 2 Laboratory Tests Test 09/16/17 05:25 White Blood Count 17.2 K/UL (4.8-10.8) H Red Blood Count 2.32 M/UL (4.70-6.10) L Hemoglobin 7.4 G/DL (14.2-18.0) L Hematocrit 21.8 % (42.0-52.0) L Mean Corpuscular Volume 94 FL (80-99) Mean Corpuscular Hemoglobin 31.9 PG (27.0-31.0) H Mean Corpuscular Hemoglobin Concent 34.0 G/DL (32.0-36.0) Red Cell Distribution Width 12.2 % (11.6-14.8) Platelet Count 634 K/UL (150-450) H Mean Platelet Volume 5.9 FL (6.5-10.1) L Neutrophils (%) (Auto) % (45.0-75.0) Lymphocytes (%) (Auto) % (20.0-45.0) Monocytes (%) (Auto) % (1.0-10.0) Eosinophils (%) (Auto) % (0.0-3.0) Basophils (%) (Auto) % (0.0-2.0) Differential Total Cells Counted 100 Neutrophils % (Manual) 80 % (45-75) H Lymphocytes % (Manual) 10 % (20-45) L Monocytes % (Manual) 8 % (1-10) Eosinophils % (Manual) 2 % (0-3) Basophils % (Manual) 0 % (0-2) Band Neutrophils 0 % (0-8) Platelet Estimate Increased H Platelet Morphology Normal Hypochromasia 3+ Anisocytosis 1+ Sodium Level 140 MMOL/L (136-145) Potassium Level 3.5 MMOL/L (3.5-5.1) Chloride Level 99 MMOL/L (98-107) Carbon Dioxide Level 32 MMOL/L (21-32) Anion Gap 9 mmol/L (5-15) Blood Urea Nitrogen 57 mg/dL (7-18) H Creatinine 9.7 MG/DL (0.55-1.30) H Estimat Glomerular Filtration Rate 6.0 mL/min (>60) Glucose Level 105 MG/DL (74-106) Calcium Level 8.3 MG/DL (8.5-10.1) L Height (Feet): 5 Height (Inches): 5.00 Weight (Pounds): 210 General Appearance: WD/WN, no apparent distress, alert Cardiovascular: normal rate Respiratory/Chest: normal breath sounds, no respiratory distress Abdominal Exam: normal bowel sounds, non tender, soft Extremities: non-tender Carlos Lopez [employer]IDENT[employer] HOUSEKEEPER Sep 16, 2017 10:08
--- NOTE | 2017-09-16 10:54 | Infectious Diseases Prog Note ---
Assessment/Plan Assessment/Plan Aspiration PNA -CXR 09/04 : Interim development of hazy interstitial and airspace disease in the right lung. This may to some extent be an artifact of less optimal inspiration, however. Interim extubation -sp cx normal ann; repeat sp cx MSSA -legionella ag urine neg Sp sepsis - Leukocytosis - Improving - No source found - Pancreatitis ? -u/a wbc 5-10, nit neg, leuk +1; cx neg -Bcx NTD (09/05 abd 09/07) -2d Echo (limited but no vegetations seen) - No Veg on KATELYN 09/10/17 - Tagged WBCs no focal uptake - MRI pelvis 09/11/17 : Diffuse symmetric edema of the bilateral buttock musculature , ? Myositis Discrete 3 x 3 x 7.3 cm fluid collection in the lateral left buttock musculature 09/13 SP No purulent material aspirated. Only small amount of blood aspirated Cx : P Fever: soruce ? Rhabdo vs pancreatitis -Cdiff neg -v/duplex no DVT -HIV ab sc and VL neg, RPR/FTA, GC/CL neg Hep C +; VL pending -ABD US: Gallbladder sludge. Negative for gallstones or dilated ducts. Equivocal increased hepatic echogenicity, if real could indicate hepatocellular disease such as fatty change. Borderline hepatomegaly. Mildly increased renal echogenicity, could indicate medical renal disease. Correlate with renal function tests. Left pleural effusion -Hep A and B immune Drug overdose -UDS + opiates, amphetamines, THC, cocaine -+empty heroin needles (found on hotel room) Multiorgan failure -LUCRECIA, - on HD -Transaminitis, (shock liver); improving -VDRF (airway protection)- extubaetd 09/03 Lactic acidosis; resolved Rhabdomyolisis; improving Pancreatitis- drug induced -neg alcohol levels Encephalopathy - improved -CT head 09/04: Unusual scalp contusion, new since prior study 08/29/2017. No evidence of underlying calvarial trauma. Negative for acute intracranial bleed or mass effect Plan: - Contuinue IV Dapto d# 3 ( may stop Dapto if CK worsen or more than 10x Nl ) and Merrem d# 3 ( empirically ) - 09/14/17 - SP IV Micafungin # 7 ( Emperic coverage of fungemia ) -09/14/17 - S/P IV Vanco and Zosyn # 9 -7/25 SP IV Azithromycin #3 -09/03 SP Zosyn #6 - Blood Cx - monitor Buttock drainage Cx -Monitor CBC/CMP, temperatures -aspiration precautions - P Smear in AM -CRP - Monitor CK -Neuro,cardio, renal, GI f/u Subjective Allergies: Coded Allergies: NO KNOWN ALLERGIES (Verified Allergy, Unknown, 09/02/17) Subjective No Acute events, Says he has more energy today No N/V/D or fever. Objective Vital Signs Last 24 Hour Vital Signs Date Time Temp Pulse Resp B/P (MAP) Pulse Ox O2 Delivery O2 Flow Rate FiO2 09/16/17 10:03 140/73 09/16/17 09:00 Room Air 09/16/17 08:00 98.7 66 20 130/84 (99) 93 98.7 09/16/17 04:16 137/87 09/16/17 04:00 98.4 65 21 137/87 (104) 91 98.4 09/16/17 00:00 98.2 71 21 145/88 (107) 92 98.2 09/15/17 22:22 98.2 09/15/17 21:23 151/83 09/15/17 21:23 100.7 09/15/17 21:00 Room Air 09/15/17 20:00 100.7 85 21 151/83 (105) 94 100.7 09/15/17 17:11 101.2 09/15/17 16:53 142/87 09/15/17 16:00 101.2 87 20 142/87 (105) 96 101.2 09/15/17 12:00 97.5 76 20 146/79 (101) 96 97.5 Height (Feet): 5 Height (Inches): 5.00 Weight (Pounds): 210 Objective General: Awake and talking, Poor insight but seems to have more energy today. HEENT: NCAT, MMM, EOMI Heart: RRR, no murmurs, right HD line in place CLISA = 0 Lungs: CTA x2, No W/C, HD line right chest ABD: Soft, NT, ND, BS+ Extremity: no edema or cellulitis Neuro: A/O x 4, Grossly nonfocal Microbiology Date/Time Source Procedure Growth Status 09/13/17 14:20 Drainage Fluid Gram Stain - Final Resulted 09/13/17 14:20 Drainage Fluid Body Fluid Culture - Preliminary Resulted 09/13/17 11:48 Urine,Clean Catch Urine Culture - Final Maggie Parapsilosis Complete Laboratory Tests Test 09/16/17 05:25 White Blood Count 17.2 K/UL (4.8-10.8) H Red Blood Count 2.32 M/UL (4.70-6.10) L Hemoglobin 7.4 G/DL (14.2-18.0) L Hematocrit 21.8 % (42.0-52.0) L Mean Corpuscular Volume 94 FL (80-99) Mean Corpuscular Hemoglobin 31.9 PG (27.0-31.0) H Mean Corpuscular Hemoglobin Concent 34.0 G/DL (32.0-36.0) Red Cell Distribution Width 12.2 % (11.6-14.8) Platelet Count 634 K/UL (150-450) H Mean Platelet Volume 5.9 FL (6.5-10.1) L Neutrophils (%) (Auto) % (45.0-75.0) Lymphocytes (%) (Auto) % (20.0-45.0) Monocytes (%) (Auto) % (1.0-10.0) Eosinophils (%) (Auto) % (0.0-3.0) Basophils (%) (Auto) % (0.0-2.0) Differential Total Cells Counted 100 Neutrophils % (Manual) 80 % (45-75) H Lymphocytes % (Manual) 10 % (20-45) L Monocytes % (Manual) 8 % (1-10) Eosinophils % (Manual) 2 % (0-3) Basophils % (Manual) 0 % (0-2) Band Neutrophils 0 % (0-8) Platelet Estimate Increased H Platelet Morphology Normal Hypochromasia 3+ Anisocytosis 1+ Sodium Level 140 MMOL/L (136-145) Potassium Level 3.5 MMOL/L (3.5-5.1) Chloride Level 99 MMOL/L (98-107) Carbon Dioxide Level 32 MMOL/L (21-32) Anion Gap 9 mmol/L (5-15) Blood Urea Nitrogen 57 mg/dL (7-18) H Creatinine 9.7 MG/DL (0.55-1.30) H Estimat Glomerular Filtration Rate 6.0 mL/min (>60) Glucose Level 105 MG/DL (74-106) Calcium Level 8.3 MG/DL (8.5-10.1) L Current Medications Medications (Trade) Dose Ordered Sig/Krystyna Route PRN Reason Start Time Stop Time Status Last Admin Dose Admin Acetaminophen (Tylenol) 650 mg Q4H PRN ORAL Fever (temp>100.5F) 09/05/17 18:30 10/05/17 18:29 09/15/17 21:23 Chlorhexidine Gluconate (Jyotsna-Hex 2%) 1 applic DAILY@2000 TOPIC 09/05/17 20:00 09/29/17 19:59 09/15/17 21:22 Clonidine HCl (Catapres tab) 0.1 mg Q6H ORAL 09/10/17 04:00 10/10/17 03:59 09/16/17 10:03 Daptomycin 550 mg/ Sodium Chloride 55 ml @ 100 mls/hr Q48H IV 09/14/17 19:00 09/21/17 18:59 09/14/17 20:53 Dextrose (Dextrose 50%) 25 ml STAT PRN IV Hypoglycemia 09/05/17 18:30 10/05/17 18:29 Dextrose (Dextrose 50%) 50 ml STAT PRN IV Hypoglycemia 09/05/17 18:30 10/05/17 18:29 Famotidine (Pepcid) 20 mg DAILY ORAL 09/07/17 09:00 10/07/17 08:59 09/16/17 09:02 Heparin Sodium (Porcine) (Heparin 5000 units/ml) 5,000 units EVERY 12 HOURS SUBQ 09/05/17 21:00 09/28/17 20:59 09/15/17 21:26 Meropenem 500 mg/ Sodium Chloride 55 ml @ 110 mls/hr Q24H IVPB 09/15/17 16:00 09/20/17 15:59 09/15/17 16:50 Methadone HCl (Methadone HCl) 10 mg Q6H ORAL 09/10/17 12:00 09/16/17 21:00 09/16/17 05:42 Mirtazapine (Remeron) 15 mg BEDTIME ORAL 09/05/17 21:00 10/04/17 20:59 09/15/17 21:23 Nitroglycerin (Ntg) 0.4 mg Q5M PRN SL Prn Chest Pain 09/05/17 18:30 09/28/17 14:44 Quetiapine Fumarate (SEROquel) 25 mg TID ORAL 09/12/17 20:45 10/12/17 20:44 09/16/17 09:01 Quetiapine Fumarate (SEROquel) 50 mg Q4H PRN ORAL agitation 09/10/17 14:00 10/10/17 13:59 09/12/17 18:27 Sodium Bicarbonate 50 ml/ Dextrose/Sodium Chloride 1,000 ml @ 50 mls/hr Q20H IV 09/09/17 22:00 10/09/17 21:59 09/15/17 22:30 Jean Cervantes M.D. Sep 16, 2017 10:54
--- NOTE | 2017-09-16 11:22 | General Progress Note ---
Assessment/Plan Problem List: (1) Substance abuse ICD Codes: F19.10 - Other psychoactive substance abuse, uncomplicated SNOMED: 13085307 (2) Respiratory failure ICD Codes: J96.90 - Respiratory failure, unspecified, unspecified whether with hypoxia or hypercapnia SNOMED: 753558379 Qualifiers: Qualified Codes: J96.01 - Acute respiratory failure with hypoxia (3) Rhabdomyolysis ICD Codes: M62.82 - Rhabdomyolysis SNOMED: 808217541 Qualifiers: Qualified Codes: T79.6XXA - Traumatic ischemia of muscle, initial encounter (4) NSTEMI (non-ST elevated myocardial infarction) ICD Codes: I21.4 - Non-ST elevation (NSTEMI) myocardial infarction SNOMED: 017220127 (5) LUCRECIA (acute kidney injury) ICD Codes: N17.9 - Acute kidney failure, unspecified SNOMED: 44454370 Status: stable, progressing Assessment/Plan ot pt diet abx neuro psyc eval cbc bmp am Subjective Constitutional: Reports: weakness Allergies: Coded Allergies: NO KNOWN ALLERGIES (Verified Allergy, Unknown, 09/02/17) All Systems: reviewed and negative except above Subjective calm in bed Objective Last 24 Hour Vital Signs Date Time Temp Pulse Resp B/P (MAP) Pulse Ox O2 Delivery O2 Flow Rate FiO2 09/16/17 10:03 140/73 09/16/17 09:00 Room Air 09/16/17 08:00 98.7 66 20 130/84 (99) 93 98.7 09/16/17 04:16 137/87 09/16/17 04:00 98.4 65 21 137/87 (104) 91 98.4 09/16/17 00:00 98.2 71 21 145/88 (107) 92 98.2 09/15/17 22:22 98.2 09/15/17 21:23 151/83 09/15/17 21:23 100.7 09/15/17 21:00 Room Air 09/15/17 20:00 100.7 85 21 151/83 (105) 94 100.7 09/15/17 17:11 101.2 09/15/17 16:53 142/87 09/15/17 16:00 101.2 87 20 142/87 (105) 96 101.2 09/15/17 12:00 97.5 76 20 146/79 (101) 96 97.5 Intake and Output 09/15/17 09/16/17 19:00 07:00 Intake Total 370 ml 550 ml Output Total 250 ml 650 ml Balance 120 ml -100 ml Intake Oral 320 ml IV Total 50 ml 550 ml Output Urine Total 250 ml 650 ml # Voids 3 # Bowel Movements 4 2 Laboratory Tests 09/16/17 05:25: White Blood Count 17.2H, Red Blood Count 2.32L, Hemoglobin 7.4L, Hematocrit 21.8L, Mean Corpuscular Volume 94, Mean Corpuscular Hemoglobin 31.9H, Mean Corpuscular Hemoglobin Concent 34.0, Red Cell Distribution Width 12.2, Platelet Count 634H, Mean Platelet Volume 5.9L, Neutrophils (%) (Auto) , Lymphocytes (%) (Auto) , Monocytes (%) (Auto) , Eosinophils (%) (Auto) , Basophils (%) (Auto) , Differential Total Cells Counted 100, Neutrophils % (Manual) 80H, Lymphocytes % (Manual) 10L, Monocytes % (Manual) 8, Eosinophils % (Manual) 2, Basophils % ( Manual) 0, Band Neutrophils 0, Platelet Estimate IncreasedH, Platelet Morphology Normal, Hypochromasia 3+, Anisocytosis 1+, Sodium Level 140, Potassium Level 3.5, Chloride Level 99, Carbon Dioxide Level 32, Anion Gap 9, Blood Urea Nitrogen 57H, Creatinine 9.7H, Estimat Glomerular Filtration Rate 6.0 , Glucose Level 105, Calcium Level 8.3L Height (Feet): 5 Height (Inches): 5.00 Weight (Pounds): 210 General Appearance: alert EENT: normal ENT inspection Neck: normal alignment Cardiovascular: normal peripheral pulses, normal rate, regular rhythm Respiratory/Chest: chest wall non-tender, lungs clear, normal breath sounds Abdomen: normal bowel sounds, non tender, soft Extremities: normal inspection Edema: no edema noted Arm (L), no edema noted Arm (R), no edema noted Leg (L), no edema noted Leg (R), no edema noted Pedal (L), no edema noted Pedal (R), no edema noted Generalized Neurologic: responsive, motor weakness Skin: normal pigmentation, warm/dry Reid Anaya DO Sep 16, 2017 11:22
[2017-09-16 12:00] VITALS: BP 139/78
--- NOTE | 2017-09-16 12:24 | General Progress Note ---
Assessment/Plan Status: stable Assessment/Plan mdd polysubstance dependence opioid and benzo withdrawal -cont methadone increased the dose -cont clonidine/ decrease the dose -dc Remeron -Seroquel 50mg q4 prn -Seroquel 50mg bid -Seroquel 100mg qhs Subjective Date patient seen: Sep 16, 2017 Neurologic/Psychiatric: Reports: anxiety, depressed Allergies: Coded Allergies: NO KNOWN ALLERGIES (Verified Allergy, Unknown, 09/02/17) Subjective the pt is calm and cooperative. The pt more lucid. the pt fell on Saturday when the sitter was in the room. the pt was agitated and psychotic the MD was not notified. The was able to answer the questions appropriately today. Objective Last 24 Hour Vital Signs Date Time Temp Pulse Resp B/P (MAP) Pulse Ox O2 Delivery O2 Flow Rate FiO2 09/16/17 12:00 97.9 60 20 139/78 (98) 93 97.9 09/16/17 10:03 140/73 09/16/17 09:00 Room Air 09/16/17 08:00 98.7 66 20 130/84 (99) 93 98.7 09/16/17 04:16 137/87 09/16/17 04:00 98.4 65 21 137/87 (104) 91 98.4 09/16/17 00:00 98.2 71 21 145/88 (107) 92 98.2 09/15/17 22:22 98.2 09/15/17 21:23 151/83 09/15/17 21:23 100.7 09/15/17 21:00 Room Air 09/15/17 20:00 100.7 85 21 151/83 (105) 94 100.7 09/15/17 17:11 101.2 09/15/17 16:53 142/87 09/15/17 16:00 101.2 87 20 142/87 (105) 96 101.2 Intake and Output 09/15/17 09/16/17 19:00 07:00 Intake Total 370 ml 550 ml Output Total 250 ml 650 ml Balance 120 ml -100 ml Intake Oral 320 ml IV Total 50 ml 550 ml Output Urine Total 250 ml 650 ml # Voids 3 # Bowel Movements 4 2 Laboratory Tests 09/16/17 05:25: White Blood Count 17.2H, Red Blood Count 2.32L, Hemoglobin 7.4L, Hematocrit 21.8L, Mean Corpuscular Volume 94, Mean Corpuscular Hemoglobin 31.9H, Mean Corpuscular Hemoglobin Concent 34.0, Red Cell Distribution Width 12.2, Platelet Count 634H, Mean Platelet Volume 5.9L, Neutrophils (%) (Auto) , Lymphocytes (%) (Auto) , Monocytes (%) (Auto) , Eosinophils (%) (Auto) , Basophils (%) (Auto) , Differential Total Cells Counted 100, Neutrophils % (Manual) 80H, Lymphocytes % (Manual) 10L, Monocytes % (Manual) 8, Eosinophils % (Manual) 2, Basophils % ( Manual) 0, Band Neutrophils 0, Platelet Estimate IncreasedH, Platelet Morphology Normal, Hypochromasia 3+, Anisocytosis 1+, Sodium Level 140, Potassium Level 3.5, Chloride Level 99, Carbon Dioxide Level 32, Anion Gap 9, Blood Urea Nitrogen 57H, Creatinine 9.7H, Estimat Glomerular Filtration Rate 6.0 , Glucose Level 105, Calcium Level 8.3L Height (Feet): 5 Height (Inches): 5.00 Weight (Pounds): 210 General Appearance: no apparent distress, alert Neurologic: oriented x 3, responsive, depressed affect Leida Decker MD Sep 16, 2017 12:24
[2017-09-16] MEDS: [UNRECOGNIZED DRUG - OTHER] IV SCH (14:00)
[2017-09-16] MEDS: SODIUM BICARBONATE IV SCH (14:00)
[2017-09-16] MEDS: D5 IV SCH (14:00)
[2017-09-16 16:00] VITALS: BP 129/81
[2017-09-16] MEDS: Meropenem 500mg/NS 55ml IVPB SCH ×2 (16:58)
--- NOTE | 2017-09-16 18:01 | General Progress Note ---
Assessment/Plan Status: stable Assessment/Plan # Anemia of chronic disease. --> Continue to closely monitor for stability. --> Obtain further workup with ferritin and tibc --> Hgb goal above >7 --> 09/15 1 unit PRBC. --> 09/16: Hgb at 7.4 # Leukocytosis. due to infection, however no source is found --> Closely monitor for improvement. --> 09/16: WBC 17.2, trending downwards. --> Currently on IV abx. --> Currently afebrile. # Thrombocytosis. Likely reactive process to anemia --> Closely monitor PLT count for improvement. --> should improve with improvement in anemia as well --> 09/16: PLT count of 634, remains elevated. # Transaminitis. Trending downwards. The time the note was entered does not necessarily correspond to the time the patient was seen. Subjective Date patient seen: Sep 16, 2017 ROS Limited/Unobtainable: Yes Hematologic/Lymphatic: Reports: anemia Allergies: Coded Allergies: NO KNOWN ALLERGIES (Verified Allergy, Unknown, 09/02/17) All Systems: reviewed and negative except above Subjective Pt awake and confused. S/P 1 unit PRBC, tolerated well. Hgb improved to 7.4. DC planning. Objective Last 24 Hour Vital Signs Date Time Temp Pulse Resp B/P (MAP) Pulse Ox O2 Delivery O2 Flow Rate FiO2 09/16/17 16:57 129/81 09/16/17 16:00 97.9 67 20 129/81 (97) 94 97.9 09/16/17 12:00 97.9 60 20 139/78 (98) 93 97.9 09/16/17 10:03 140/73 09/16/17 09:00 Room Air 09/16/17 08:00 98.7 66 20 130/84 (99) 93 98.7 09/16/17 04:16 137/87 09/16/17 04:00 98.4 65 21 137/87 (104) 91 98.4 09/16/17 00:00 98.2 71 21 145/88 (107) 92 98.2 09/15/17 22:22 98.2 09/15/17 21:23 151/83 09/15/17 21:23 100.7 09/15/17 21:00 Room Air 09/15/17 20:00 100.7 85 21 151/83 (105) 94 100.7 Intake and Output 09/15/17 09/16/17 19:00 07:00 Intake Total 370 ml 550 ml Output Total 250 ml 650 ml Balance 120 ml -100 ml Intake Oral 320 ml IV Total 50 ml 550 ml Output Urine Total 250 ml 650 ml # Voids 3 # Bowel Movements 4 2 Laboratory Tests 09/16/17 05:25: White Blood Count 17.2H, Red Blood Count 2.32L, Hemoglobin 7.4L, Hematocrit 21.8L, Mean Corpuscular Volume 94, Mean Corpuscular Hemoglobin 31.9H, Mean Corpuscular Hemoglobin Concent 34.0, Red Cell Distribution Width 12.2, Platelet Count 634H, Mean Platelet Volume 5.9L, Neutrophils (%) (Auto) , Lymphocytes (%) (Auto) , Monocytes (%) (Auto) , Eosinophils (%) (Auto) , Basophils (%) (Auto) , Differential Total Cells Counted 100, Neutrophils % (Manual) 80H, Lymphocytes % (Manual) 10L, Monocytes % (Manual) 8, Eosinophils % (Manual) 2, Basophils % ( Manual) 0, Band Neutrophils 0, Platelet Estimate IncreasedH, Platelet Morphology Normal, Hypochromasia 3+, Anisocytosis 1+, Sodium Level 140, Potassium Level 3.5, Chloride Level 99, Carbon Dioxide Level 32, Anion Gap 9, Blood Urea Nitrogen 57H, Creatinine 9.7H, Estimat Glomerular Filtration Rate 6.0 , Glucose Level 105, Calcium Level 8.3L Height (Feet): 5 Height (Inches): 5.00 Weight (Pounds): 210 General Appearance: no apparent distress EENT: PERRL/EOMI Neck: normal alignment Cardiovascular: normal peripheral pulses Respiratory/Chest: no respiratory distress Abdomen: soft Diogenes Flores MD Sep 16, 2017 18:01
[2017-09-16] MEDS: DAPTOmycin 550 MG in NS 55 ML IV SCH (18:57)
[2017-09-16 20:00] VITALS: BP 153/92
--- NOTE | 2017-09-16 20:34 | Neurology Progress Note ---
Interim History Interim History Interim History Mr. Stover feels better generally. He is a little more confused and agitated this evening. He was delusional and thought he was in a usp. He however could be easily redirected. He feels more energetic. He feels that his mind is relatively clear. He however is still forgetful. He is still gets confused and has problems with orientation. His appetite is better and he is eating more. He is generally stronger. He has not walked today. He denies any new neurologic symptoms. He specifically denies any weakness on one side or the other, numbness on one side or the other, problems with speech, problems with language, or problems with vision. Review of Systems Neuro Review of Systems Benign. Objective Physical Exam Last Vital Signs Date Time Temp Pulse Resp B/P (MAP) Pulse Ox O2 Delivery O2 Flow Rate FiO2 09/16/17 20:00 98.8 85 21 153/92 (112) 96 98.8 09/16/17 09:00 Room Air 09/14/17 20:33 4.0 21 Laboratory Tests Test 09/16/17 05:25 White Blood Count 17.2 K/UL (4.8-10.8) H Red Blood Count 2.32 M/UL (4.70-6.10) L Hemoglobin 7.4 G/DL (14.2-18.0) L Hematocrit 21.8 % (42.0-52.0) L Mean Corpuscular Volume 94 FL (80-99) Mean Corpuscular Hemoglobin 31.9 PG (27.0-31.0) H Mean Corpuscular Hemoglobin Concent 34.0 G/DL (32.0-36.0) Red Cell Distribution Width 12.2 % (11.6-14.8) Platelet Count 634 K/UL (150-450) H Mean Platelet Volume 5.9 FL (6.5-10.1) L Neutrophils (%) (Auto) % (45.0-75.0) Lymphocytes (%) (Auto) % (20.0-45.0) Monocytes (%) (Auto) % (1.0-10.0) Eosinophils (%) (Auto) % (0.0-3.0) Basophils (%) (Auto) % (0.0-2.0) Differential Total Cells Counted 100 Neutrophils % (Manual) 80 % (45-75) H Lymphocytes % (Manual) 10 % (20-45) L Monocytes % (Manual) 8 % (1-10) Eosinophils % (Manual) 2 % (0-3) Basophils % (Manual) 0 % (0-2) Band Neutrophils 0 % (0-8) Platelet Estimate Increased H Platelet Morphology Normal Hypochromasia 3+ Anisocytosis 1+ Sodium Level 140 MMOL/L (136-145) Potassium Level 3.5 MMOL/L (3.5-5.1) Chloride Level 99 MMOL/L (98-107) Carbon Dioxide Level 32 MMOL/L (21-32) Anion Gap 9 mmol/L (5-15) Blood Urea Nitrogen 57 mg/dL (7-18) H Creatinine 9.7 MG/DL (0.55-1.30) H Estimat Glomerular Filtration Rate 6.0 mL/min (>60) Glucose Level 105 MG/DL (74-106) Calcium Level 8.3 MG/DL (8.5-10.1) L Neurologic Exam Objective PHYSICAL EXAMINATION: GENERAL: He is a well-developed, well-nourished, gentleman, lying in bed. HEAD: Normocephalic and atraumatic. EENT: Examination benign. NECK: No neck rigidity was observed. NEUROLOGIC EXAMINATION: MENTAL STATUS EXAMINATION: He was awake and alert. He was oriented to [facility] and September 2017. He did not know the exact date. He was able to recall 3/3 words immediately, but could only remember 2/3 in 1 and 3 minutes. He was able to remember Trump but could not remember other [place] presidents. He was delusional. SPEECH: He had no dysarthria. LANGUAGE: He had no aphasia. CRANIAL NERVE EXAMINATION: II: The visual dinh were intact on confrontation testing. III, IV & : The external ocular movements were present. The pupils were 3 mm in diameter and reactive sluggishly to light. V: He had normal facial sensations and the temporales, masseters and pterygoids functioned well. VII: He had normal facial expressions and no facial asymmetry. VIII: He was able to hear well and had no nystagmus. IX: The palate moved symmetrically on phonation. X: He had no hoarseness of voice. XI: The sternocleidomastoids and trapezii functioned well. XII: The tongue was in the midline. MOTOR SYSTEM: The tone was normal in all four extremities. Examination of muscle mass revealed no focal wasting. Examination of power revealed G 5/5 power in all muscle groups except for G 0/5 in the right ankle dorsiflexors, toe extensors, ankle plantar flexors and toe flexors, G 5-/5 in the left ankle dorsiflexors and toe extensors, and G 4/5 in the iliopsoas muscle bilaterally. SENSORY EXAMINATION: He had altered sensations in the right peroneal distribution. REFLEXES: Trace+ and bilaterally symmetrical at the biceps, triceps, brachioradialis, and knees, 0 at both ankles. The plantar responses were flexor bilaterally. COORDINATION: He performed well on finger to nose testing. STANCE & GAIT: Could not be tested. Impression/Recommendations Diagnostic Impression 1. Mr. Enoch Stover is a 37-year-old, gentleman, of unknown handedness, who was found unconscious in a hotel room on 08/29/2017 after he had used multiple drugs. He was found to be possibly febrile, hypoglycemic, and breathing rapidly. Since then, he has been hospitalized and treated for sepsis. 2. He feels better generally. He is a little more confused and agitated this evening. He was delusional and thought he was in a usp. He however could be easily redirected. He feels more energetic. He feels that his mind is relatively clear. He however is still forgetful. He is still gets confused and has problems with orientation. His appetite is better and he is eating more. He is generally stronger. He has not walked today. He denies any new neurologic symptoms. 3. On neurological examination, at this time, he is awake and alert. He is well oriented except to the exact date. He does have problems with recent and remote memory. he is delusional. His speech and language are normal. His cranial nerves are also functioning normally. His motor function is relatively good he however has mild proximal lower extremity weakness, and mild distal left lower extremity weakness with no movement in the right ankle and toes. His sensations are altered in the right peroneal distribution. His deep tendon reflexes are diminished but his plantar responses are flexor. He also does not demonstrate any definite focal or lateralizing neurological findings. 4. The CT scan of the brain performed on 08/29/2017 and repeated on 09/04/17 is benign for acute pathology. 5. Laboratory data obtained thus far revealed, on admission, his hemoglobin was elevated to 18.4, his WBC was normal at 8,500, but since then his WBCs have peaked to 17,200. His chemistry panel on admission revealed BUN elevated to 31 , creatinine elevated to 3.6, lactic acid elevated to 5.5, bilirubin elevated at 1.2, AST elevated at 478, ALT elevated to 159, CK elevated to greater than 10 ,000, troponin elevated at 1.01, BNP elevated to 2143. His urine toxicology screen was positive for opiates, amphetamines, cocaine, and marijuana. His INR was elevated at 1.2. His TSH is elevated at 4.72. The T3 is low but the T4 is normal. 6. The patient's history, neurological examination, laboratory data, and imaging studies are most compatible with an altered mental state due to a toxic metabolic encephalopathy. 7. The most likely etiology for the encephalopathy is the sepsis, possibly a period of hypoglycemia and ongoing multiple metabolic imbalances and the toxic imbalances. In addition the use of mind-altering drugs could have also been contributing. 8. His encephalopathy is still waxing and waning. 9. He has also developed bilateral mild proximal lower extremity weakness, and in addition severe right distal lower extremity weakness with severe right peroneal and tibial nerve dysfunction. His sensations are also altered in the right peroneal distribution. Recommendations 1. Continue present management. 2. Continue aggressive treatment of the patient's infectious process. 3. Aggressive management of toxic/metabolic imbalances. 4. AFO for right foot drop. 5. PT/OT. 6. If patient develops delusions re-direct him. 7. Observe closely. Chris Ricketts M.D., M.S.P.Luz. CHRIS RICKETTS Sep 16, 2017 20:34
[2017-09-16] MEDS: Dyna-Hex 2% Top Sol 2oz TOPIC SCH (21:10)
[2017-09-17] MEDS: SODIUM BICARBONATE IV SCH (00:49)
[2017-09-17] MEDS: [UNRECOGNIZED DRUG - OTHER] IV SCH (00:49)
[2017-09-17] MEDS: D5 IV SCH (00:49)
[2017-09-17 04:00] VITALS: BP 137/75
[2017-09-17 05:37] LABS: APPEARANCE,URINE CLEAR; BILIRUBIN, URINE NEGATIVE (NEGATIVE); COLOR,URINE PALE YELLOW; GLUCOSE, URINE (UA) NEGATIVE (NEGATIVE); KETONES,URINE NEGATIVE (NEGATIVE); LEUKOCYTE ESTERASE ,URINE 3+ (NEGATIVE); NITRITE,URINE NEGATIVE (NEGATIVE); PH,URINE 8 (4.5-8.0); PROTEIN,URINE 3+ (NEGATIVE); UROBILINOGEN,URINE NORMAL (NORMAL)
[2017-09-17] MEDS: cloNIDine 0.2mg Tab ORAL SCH ×2 (06:12→09:27)
[2017-09-17 06:21] LABS: HEMATOCRIT 22.5 % (42.0-52.0); HEMOGLOBIN 7.5 G/DL (14.2-18.0); MEAN CORPUSCULAR VOLUME 95 FL (80-99); PLATELET COUNT 595 K/UL (150-450); RED BLOOD COUNT 2.38 M/UL (4.70-6.10); RED CELL DISTRIBUTION WIDTH 12.1 % (11.6-14.8); WHITE BLOOD COUNT 15.6 K/UL (4.8-10.8)
[2017-09-17 07:01] LABS: ANION GAP 11 mmol/L (5-15); BLOOD UREA NITROGEN 66 mg/dL (7-18); CALCIUM 8.3 MG/DL (8.5-10.1); CARBON DIOXIDE 31 MMOL/L (21-32); CHLORIDE 101 MMOL/L (98-107); CREATININE 10.4 MG/DL (0.55-1.30); POTASSIUM 3.6 MMOL/L (3.5-5.1); SODIUM 143 MMOL/L (136-145)
--- NOTE | 2017-09-17 07:58 | Infectious Diseases Prog Note ---
Assessment/Plan Assessment/Plan Aspiration PNA -CXR 09/04 : Interim development of hazy interstitial and airspace disease in the right lung. This may to some extent be an artifact of less optimal inspiration, however. Interim extubation -sp cx normal ann; repeat sp cx MSSA -legionella ag urine neg Sp sepsis - Leukocytosis - Improving - No source found - Pancreatitis ? -u/a wbc 5-10, nit neg, leuk +1; cx neg -Bcx NTD (09/05 abd 09/07) -2d Echo (limited but no vegetations seen) - No Veg on KATELYN 09/10/17 - Tagged WBCs no focal uptake - MRI pelvis 09/11/17 : Diffuse symmetric edema of the bilateral buttock musculature , ? Myositis Discrete 3 x 3 x 7.3 cm fluid collection in the lateral left buttock musculature 09/13 SP No purulent material aspirated. Only small amount of blood aspirated Cx : P Fever: soruce ? Rhabdo vs pancreatitis -Cdiff neg -v/duplex no DVT -HIV ab sc and VL neg, RPR/FTA, GC/CL neg Hep C +; VL pending -ABD US: Gallbladder sludge. Negative for gallstones or dilated ducts. Equivocal increased hepatic echogenicity, if real could indicate hepatocellular disease such as fatty change. Borderline hepatomegaly. Mildly increased renal echogenicity, could indicate medical renal disease. Correlate with renal function tests. Left pleural effusion -Hep A and B immune Drug overdose -UDS + opiates, amphetamines, THC, cocaine -+empty heroin needles (found on hotel room) Multiorgan failure -LUCRECIA, - on HD -Transaminitis, (shock liver); improving -VDRF (airway protection)- extubaetd 09/03 Lactic acidosis; resolved Rhabdomyolisis; improving Pancreatitis- drug induced -neg alcohol levels Encephalopathy - improved -CT head 09/04: Unusual scalp contusion, new since prior study 08/29/2017. No evidence of underlying calvarial trauma. Negative for acute intracranial bleed or mass effect Plan: - Contuinue IV Dapto d# 4/ ( may stop Dapto if CK worsen or more than 10x Nl ) and Merrem d# 4/7 ( empirically ) - 09/14/17 - SP IV Micafungin # 7 ( Emperic coverage of fungemia ) -09/14/17 - S/P IV Vanco and Zosyn # 9 -09/04 SP IV Azithromycin #3 -09/03 SP Zosyn #6 -Monitor Buttock drainage Cx - Monitor CBC/CMP, temperatures - aspiration precautions - P Smear in AM - CRP - Monitor CK - Neuro,cardio, renal, GI f/u Subjective Allergies: Coded Allergies: NO KNOWN ALLERGIES (Verified Allergy, Unknown, 09/02/17) Subjective No Acute events over night No N/V/D or fever. Objective Vital Signs Last 24 Hour Vital Signs Date Time Temp Pulse Resp B/P (MAP) Pulse Ox O2 Delivery O2 Flow Rate FiO2 09/17/17 06:12 137/75 09/17/17 04:00 98.8 77 21 137/75 (95) 93 98.8 09/16/17 21:10 153/92 09/16/17 21:00 Room Air 09/16/17 20:00 98.8 85 21 153/92 (112) 96 98.8 09/16/17 16:57 129/81 09/16/17 16:00 97.9 67 20 129/81 (97) 94 97.9 09/16/17 12:00 97.9 60 20 139/78 (98) 93 97.9 09/16/17 10:03 140/73 09/16/17 09:00 Room Air 09/16/17 08:00 98.7 66 20 130/84 (99) 93 98.7 Height (Feet): 5 Height (Inches): 5.00 Weight (Pounds): 207 Objective General: NAD, Awake and talking, HEENT: NCAT, MMM, EOMI Heart: RRR, no murmurs, right HD line in place CLISA = 0 Lungs: CTA x2, No W/C, HD line right chest ABD: Soft, NT, ND, BS+ Extremity: no edema or cellulitis Neuro: A/O x 4, Grossly nonfocal Laboratory Tests Test 09/17/17 05:00 09/17/17 05:40 Urine Color Pale yellow Urine Appearance Clear Urine pH 8 (4.5-8.0) Urine Specific [place] 1.010 (1.005-1.035) Urine Protein 3+ (NEGATIVE) H Urine Glucose (UA) Negative (NEGATIVE) Urine Ketones Negative (NEGATIVE) Urine Occult Blood 4+ (NEGATIVE) H Urine Nitrite Negative (NEGATIVE) Urine Bilirubin Negative (NEGATIVE) Urine Urobilinogen Normal MG/DL (NORMAL) Urine Leukocyte Esterase 3+ (NEGATIVE) H Urine RBC 2-4 /HPF (0 - 0) H Urine WBC 10-15 /HPF (0 - 0) H Urine Squamous Epithelial Cells Occasional /LPF Urine Bacteria Occasional /HPF (NONE) White Blood Count 15.6 K/UL (4.8-10.8) H Red Blood Count 2.38 M/UL (4.70-6.10) L Hemoglobin 7.5 G/DL (14.2-18.0) L Hematocrit 22.5 % (42.0-52.0) L Mean Corpuscular Volume 95 FL (80-99) Mean Corpuscular Hemoglobin 31.5 PG (27.0-31.0) H Mean Corpuscular Hemoglobin Concent 33.2 G/DL (32.0-36.0) Red Cell Distribution Width 12.1 % (11.6-14.8) Platelet Count 595 K/UL (150-450) H Mean Platelet Volume 5.9 FL (6.5-10.1) L Neutrophils (%) (Auto) % (45.0-75.0) Lymphocytes (%) (Auto) % (20.0-45.0) Monocytes (%) (Auto) % (1.0-10.0) Eosinophils (%) (Auto) % (0.0-3.0) Basophils (%) (Auto) % (0.0-2.0) Sodium Level 143 MMOL/L (136-145) Potassium Level 3.6 MMOL/L (3.5-5.1) Chloride Level 101 MMOL/L (98-107) Carbon Dioxide Level 31 MMOL/L (21-32) Anion Gap 11 mmol/L (5-15) Blood Urea Nitrogen 66 mg/dL (7-18) H Creatinine 10.4 MG/DL (0.55-1.30) H Estimat Glomerular Filtration Rate 5.6 mL/min (>60) Glucose Level 110 MG/DL (74-106) H Calcium Level 8.3 MG/DL (8.5-10.1) L Current Medications Medications (Trade) Dose Ordered Sig/Krystyna Route PRN Reason Start Time Stop Time Status Last Admin Dose Admin Acetaminophen (Tylenol) 650 mg Q4H PRN ORAL Fever (temp>100.5F) 09/05/17 18:30 10/05/17 18:29 09/15/17 21:23 Chlorhexidine Gluconate (Jyotsna-Hex 2%) 1 applic DAILY@2000 TOPIC 09/05/17 20:00 09/29/17 19:59 09/16/17 21:10 Clonidine HCl (Catapres tab) 0.1 mg Q6H ORAL 09/10/17 04:00 10/10/17 03:59 09/17/17 06:12 Daptomycin 550 mg/ Sodium Chloride 55 ml @ 100 mls/hr Q48H IV 09/14/17 19:00 09/21/17 18:59 09/16/17 18:57 Dextrose (Dextrose 50%) 25 ml STAT PRN IV Hypoglycemia 09/05/17 18:30 10/05/17 18:29 Dextrose (Dextrose 50%) 50 ml STAT PRN IV Hypoglycemia 09/05/17 18:30 10/05/17 18:29 Famotidine (Pepcid) 20 mg DAILY ORAL 09/07/17 09:00 10/07/17 08:59 09/16/17 09:02 Heparin Sodium (Porcine) (Heparin 5000 units/ml) 5,000 units EVERY 12 HOURS SUBQ 09/05/17 21:00 09/28/17 20:59 09/16/17 21:12 Meropenem 500 mg/ Sodium Chloride 55 ml @ 110 mls/hr Q24H IVPB 09/15/17 16:00 09/20/17 15:59 09/16/17 16:58 Mirtazapine (Remeron) 15 mg BEDTIME ORAL 09/05/17 21:00 10/04/17 20:59 09/16/17 21:09 Nitroglycerin (Ntg) 0.4 mg Q5M PRN SL Prn Chest Pain 09/05/17 18:30 09/28/17 14:44 Quetiapine Fumarate (SEROquel) 50 mg DAILY ORAL 09/17/17 09:00 10/17/17 08:59 Quetiapine Fumarate (SEROquel) 50 mg Q4H PRN ORAL agitation 09/10/17 14:00 10/10/17 13:59 09/16/17 16:57 Quetiapine Fumarate (SEROquel) 50 mg QLUNCH ORAL 09/17/17 11:30 10/17/17 11:29 Quetiapine Fumarate (SEROquel) 100 mg BEDTIME ORAL 09/16/17 21:00 10/16/17 20:59 09/16/17 21:09 Sodium Bicarbonate 50 ml/ Dextrose/Sodium Chloride 1,000 ml @ 50 mls/hr Q20H IV 09/09/17 22:00 10/09/17 21:59 09/17/17 00:49 Jean Cervantes M.D. Sep 17, 2017 07:58
[2017-09-17 08:00] VITALS: BP 138/78
[2017-09-17] MEDS: Heparin 5000 units/ml inj SUBQ SCH (09:31)
--- NOTE | 2017-09-17 11:24 | Nephrology Progress Note ---
Assessment/Plan Problem List: (1) LUCRECIA (acute kidney injury) (2) Overdose (3) Rhabdomyolysis Assessment . Acute renal failure- On HD . Acute rhabdomyolysis.(anuric ) On admit . Hypocalcemia. . Hyperkalemia. Lactic acidosis. . Shock liver. . History of multiple drug use. Plan HD today check labs adjust meds Subjective ROS Limited/Unobtainable: No Constitutional: Reports: malaise, weakness - coverage for Dr Veloz Objective Objective Last 24 Hour Vital Signs Date Time Temp Pulse Resp B/P (MAP) Pulse Ox O2 Delivery O2 Flow Rate FiO2 09/17/17 09:27 138/78 09/17/17 09:00 Room Air 09/17/17 08:00 97.8 77 19 138/78 (98) 96 97.8 09/17/17 06:12 137/75 09/17/17 04:00 98.8 77 21 137/75 (95) 93 98.8 09/16/17 21:10 153/92 09/16/17 21:00 Room Air 09/16/17 20:00 98.8 85 21 153/92 (112) 96 98.8 09/16/17 16:57 129/81 09/16/17 16:00 97.9 67 20 129/81 (97) 94 97.9 09/16/17 12:00 97.9 60 20 139/78 (98) 93 97.9 Intake and Output 09/16/17 09/17/17 19:00 07:00 Intake Total 1250 ml 250 ml Balance 1250 ml 250 ml Intake Oral 540 ml IV Total 710 ml 250 ml # Voids 5 5 # Bowel Movements 2 Laboratory Tests 09/17/17 05:00: Urine Color Pale yellow, Urine Appearance Clear, Urine pH 8, Urine Specific [place] 1.010, Urine Protein 3+H, Urine Glucose (UA) Negative, Urine Ketones Negative, Urine Occult Blood 4+H, Urine Nitrite Negative, Urine Bilirubin Negative, Urine Urobilinogen Normal, Urine Leukocyte Esterase 3+H, Urine RBC 2- 4H, Urine WBC 10-15H, Urine Squamous Epithelial Cells Occasional, Urine Bacteria Occasional 09/17/17 05:40: White Blood Count 15.6H, Red Blood Count 2.38L, Hemoglobin 7.5L, Hematocrit 22.5L, Mean Corpuscular Volume 95, Mean Corpuscular Hemoglobin 31.5H, Mean Corpuscular Hemoglobin Concent 33.2, Red Cell Distribution Width 12.1, Platelet Count 595H, Mean Platelet Volume 5.9L, Neutrophils (%) (Auto) , Lymphocytes (%) (Auto) , Monocytes (%) (Auto) , Eosinophils (%) (Auto) , Basophils (%) (Auto) , Sodium Level 143, Potassium Level 3.6, Chloride Level 101, Carbon Dioxide Level 31, Anion Gap 11, Blood Urea Nitrogen 66H, Creatinine 10.4H, Estimat Glomerular Filtration Rate 5.6, Glucose Level 110H, Calcium Level 8.3L Height (Feet): 5 Height (Inches): 5.00 Weight (Pounds): 207 General Appearance: no apparent distress Cardiovascular: normal rate Respiratory/Chest: decreased breath sounds Abdomen: soft Ernesto Santillan MD Sep 17, 2017 11:24
--- NOTE | 2017-09-17 11:38 | General Progress Note ---
Progress Note Progress Note Surgery: improving. right tunneled line clean without bleeding. cultures from buttock drainage negative. recent blood cultures negative. no drain or I&D necessary. exam benign. cognitively improved no n/v/f/c labs reviewed no acute surgical intervention necessary thank you Vincent Schultz Sep 17, 2017 11:38
[2017-09-17 11:48] LABS: ALANINE AMINOTRANSFERASE 77 U/L (12-78); ALKALINE PHOSPHATASE 71 U/L (46-116); ASPARTATE AMINO TRANSFERASE 39 U/L (15-37); BILIRUBIN,DIRECT 0.2 MG/DL (0.0-0.3); BILIRUBIN,TOTAL 0.5 MG/DL (0.2-1.0); PHOSPHORUS 8.3 MG/DL (2.5-4.9)
[2017-09-17 12:00] VITALS: BP 133/81
[2017-09-17 12:08] LABS: CREATINE KINASE 326 U/L (26-308); GAMMA GLUTAMYL TRANSPEPTIDASE 119 U/L (5-85)
[2017-09-17] MEDS: Docusate 100mg cap ORAL SCH ×2 (12:10→18:31)
--- NOTE | 2017-09-17 13:17 | GI Progress Note ---
Assessment/Plan Problems: (1) Severe sepsis ICD Codes: A41.9 - Sepsis, unspecified organism; R65.20 - Severe sepsis without septic shock SNOMED: 94293933 (2) Rhabdomyolysis ICD Codes: M62.82 - Rhabdomyolysis SNOMED: 449830929 Qualifiers: Qualified Codes: T79.6XXA - Traumatic ischemia of muscle, initial encounter (3) Aspiration pneumonia ICD Codes: J69.0 - Pneumonitis due to inhalation of food and vomit SNOMED: 848129414 Qualifiers: Qualified Codes: J69.0 - Pneumonitis due to inhalation of food and vomit (4) Substance abuse ICD Codes: F19.10 - Other psychoactive substance abuse, uncomplicated SNOMED: 30248035 (5) Transaminitis ICD Codes: R74.0 - Nonspecific elevation of levels of transaminase and lactic acid dehydrogenase [LDH] SNOMED: 705652205, 785614742 Status: stable Status Narrative Discussed with Dr. Chavez. Assessment/Plan Hep A immunity Hep C positive transaminitis >> downtrending, near normal levels cdiff negative stool culture >> gram negative bacillus elevated lipase >> downtrending OB stool negative renal diet abx supportive care ppi fu labs, lipase, trend LFTs outpatient Hep C tx The patient was seen and examined at bedside and all new and available data was reviewed in the patients chart. I agree with the above findings, impression and plan. (Patient seen earlier today. Signature stamp does not reflect patient encounter time.). - Efrain Chavez MD Subjective Subjective limited, has periods of confusion Objective Last 24 Hour Vital Signs Date Time Temp Pulse Resp B/P (MAP) Pulse Ox O2 Delivery O2 Flow Rate FiO2 09/17/17 12:15 100.5 09/17/17 12:00 100.5 85 20 133/81 (98) 96 100.5 09/17/17 09:27 138/78 09/17/17 09:00 Room Air 09/17/17 08:00 97.8 77 19 138/78 (98) 96 97.8 09/17/17 06:12 137/75 09/17/17 04:00 98.8 77 21 137/75 (95) 93 98.8 09/16/17 21:10 153/92 09/16/17 21:00 Room Air 09/16/17 20:00 98.8 85 21 153/92 (112) 96 98.8 09/16/17 16:57 129/81 09/16/17 16:00 97.9 67 20 129/81 (97) 94 97.9 Intake and Output 09/16/17 09/17/17 19:00 07:00 Intake Total 1250 ml 250 ml Balance 1250 ml 250 ml Intake Oral 540 ml IV Total 710 ml 250 ml # Voids 5 5 # Bowel Movements 2 Laboratory Tests Test 09/17/17 05:00 09/17/17 05:40 Urine Color Pale yellow Urine Appearance Clear Urine pH 8 (4.5-8.0) Urine Specific [place] 1.010 (1.005-1.035) Urine Protein 3+ (NEGATIVE) H Urine Glucose (UA) Negative (NEGATIVE) Urine Ketones Negative (NEGATIVE) Urine Occult Blood 4+ (NEGATIVE) H Urine Nitrite Negative (NEGATIVE) Urine Bilirubin Negative (NEGATIVE) Urine Urobilinogen Normal MG/DL (NORMAL) Urine Leukocyte Esterase 3+ (NEGATIVE) H Urine RBC 2-4 /HPF (0 - 0) H Urine WBC 10-15 /HPF (0 - 0) H Urine Squamous Epithelial Cells Occasional /LPF Urine Bacteria Occasional /HPF (NONE) White Blood Count 15.6 K/UL (4.8-10.8) H Red Blood Count 2.38 M/UL (4.70-6.10) L Hemoglobin 7.5 G/DL (14.2-18.0) L Hematocrit 22.5 % (42.0-52.0) L Mean Corpuscular Volume 95 FL (80-99) Mean Corpuscular Hemoglobin 31.5 PG (27.0-31.0) H Mean Corpuscular Hemoglobin Concent 33.2 G/DL (32.0-36.0) Red Cell Distribution Width 12.1 % (11.6-14.8) Platelet Count 595 K/UL (150-450) H Mean Platelet Volume 5.9 FL (6.5-10.1) L Neutrophils (%) (Auto) % (45.0-75.0) Lymphocytes (%) (Auto) % (20.0-45.0) Monocytes (%) (Auto) % (1.0-10.0) Eosinophils (%) (Auto) % (0.0-3.0) Basophils (%) (Auto) % (0.0-2.0) Sodium Level 143 MMOL/L (136-145) Potassium Level 3.6 MMOL/L (3.5-5.1) Chloride Level 101 MMOL/L (98-107) Carbon Dioxide Level 31 MMOL/L (21-32) Anion Gap 11 mmol/L (5-15) Blood Urea Nitrogen 66 mg/dL (7-18) H Creatinine 10.4 MG/DL (0.55-1.30) H Estimat Glomerular Filtration Rate 5.6 mL/min (>60) Glucose Level 110 MG/DL (74-106) H Uric Acid 7.4 MG/DL (2.6-7.2) H Calcium Level 8.3 MG/DL (8.5-10.1) L Phosphorus Level 8.3 MG/DL (2.5-4.9) H Magnesium Level 2.5 MG/DL (1.8-2.4) H Total Bilirubin 0.5 MG/DL (0.2-1.0) Direct Bilirubin 0.2 MG/DL (0.0-0.3) Gamma Glutamyl Transpeptidase 119 U/L (5-85) H Aspartate Amino Transf (AST/SGOT) 39 U/L (15-37) H Alanine Aminotransferase (ALT/SGPT) 77 U/L (12-78) Alkaline Phosphatase 71 U/L (46-116) Total Creatine Kinase 326 U/L (26-308) H Total Protein 6.7 G/DL (6.4-8.2) Albumin 2.0 G/DL (3.4-5.0) L Height (Feet): 5 Height (Inches): 5.00 Weight (Pounds): 207 General Appearance: WD/WN, no apparent distress, alert Cardiovascular: normal rate Respiratory/Chest: normal breath sounds, no respiratory distress Abdominal Exam: normal bowel sounds, non tender, soft Extremities: normal range of motion, non-tender Carlos Lopez NP Sep 17, 2017 13:17
--- NOTE | 2017-09-17 14:34 | General Progress Note ---
Assessment/Plan Problem List: (1) Substance abuse ICD Codes: F19.10 - Other psychoactive substance abuse, uncomplicated SNOMED: 11758433 (2) Respiratory failure ICD Codes: J96.90 - Respiratory failure, unspecified, unspecified whether with hypoxia or hypercapnia SNOMED: 045428528 Qualifiers: Qualified Codes: J96.01 - Acute respiratory failure with hypoxia (3) Rhabdomyolysis ICD Codes: M62.82 - Rhabdomyolysis SNOMED: 652863843 Qualifiers: Qualified Codes: T79.6XXA - Traumatic ischemia of muscle, initial encounter (4) NSTEMI (non-ST elevated myocardial infarction) ICD Codes: I21.4 - Non-ST elevation (NSTEMI) myocardial infarction SNOMED: 362864339 (5) LUCRECIA (acute kidney injury) ICD Codes: N17.9 - Acute kidney failure, unspecified SNOMED: 83665683 Status: unchanged Assessment/Plan ot pt diet abx neuro psyc eval cbc bmp am Subjective Constitutional: Reports: weakness Allergies: Coded Allergies: NO KNOWN ALLERGIES (Verified Allergy, Unknown, 09/02/17) All Systems: reviewed and negative except above Subjective calm in bed Objective Last 24 Hour Vital Signs Date Time Temp Pulse Resp B/P (MAP) Pulse Ox O2 Delivery O2 Flow Rate FiO2 09/17/17 13:14 100.7 09/17/17 12:15 100.5 09/17/17 12:00 100.5 85 20 133/81 (98) 96 100.5 09/17/17 09:27 138/78 09/17/17 09:00 Room Air 09/17/17 08:00 97.8 77 19 138/78 (98) 96 97.8 09/17/17 06:12 137/75 09/17/17 04:00 98.8 77 21 137/75 (95) 93 98.8 09/16/17 21:10 153/92 09/16/17 21:00 Room Air 09/16/17 20:00 98.8 85 21 153/92 (112) 96 98.8 09/16/17 16:57 129/81 09/16/17 16:00 97.9 67 20 129/81 (97) 94 97.9 Intake and Output 09/16/17 09/17/17 19:00 07:00 Intake Total 1250 ml 250 ml Balance 1250 ml 250 ml Intake Oral 540 ml IV Total 710 ml 250 ml # Voids 5 5 # Bowel Movements 2 Laboratory Tests 09/17/17 05:00: Urine Color Pale yellow, Urine Appearance Clear, Urine pH 8, Urine Specific [place] 1.010, Urine Protein 3+H, Urine Glucose (UA) Negative, Urine Ketones Negative, Urine Occult Blood 4+H, Urine Nitrite Negative, Urine Bilirubin Negative, Urine Urobilinogen Normal, Urine Leukocyte Esterase 3+H, Urine RBC 2- 4H, Urine WBC 10-15H, Urine Squamous Epithelial Cells Occasional, Urine Bacteria Occasional 09/17/17 05:40: White Blood Count 15.6H, Red Blood Count 2.38L, Hemoglobin 7.5L, Hematocrit 22.5L, Mean Corpuscular Volume 95, Mean Corpuscular Hemoglobin 31.5H, Mean Corpuscular Hemoglobin Concent 33.2, Red Cell Distribution Width 12.1, Platelet Count 595H, Mean Platelet Volume 5.9L, Neutrophils (%) (Auto) , Lymphocytes (%) (Auto) , Monocytes (%) (Auto) , Eosinophils (%) (Auto) , Basophils (%) (Auto) , Sodium Level 143, Potassium Level 3.6, Chloride Level 101, Carbon Dioxide Level 31, Anion Gap 11, Blood Urea Nitrogen 66H, Creatinine 10.4H, Estimat Glomerular Filtration Rate 5.6, Glucose Level 110H, Uric Acid 7.4H, Calcium Level 8.3L, Phosphorus Level 8.3H, Magnesium Level 2.5H, Total Bilirubin 0.5, Direct Bilirubin 0.2, Gamma Glutamyl Transpeptidase 119H, Aspartate Amino Transf (AST/ SGOT) 39H, Alanine Aminotransferase (ALT/SGPT) 77, Alkaline Phosphatase 71, Total Creatine Kinase 326H, Total Protein 6.7, Albumin 2.0L Height (Feet): 5 Height (Inches): 5.00 Weight (Pounds): 207 General Appearance: lethargic EENT: normal ENT inspection Neck: normal alignment Cardiovascular: normal peripheral pulses, normal rate, regular rhythm Respiratory/Chest: chest wall non-tender, lungs clear, normal breath sounds Abdomen: normal bowel sounds, non tender, soft Extremities: normal inspection Edema: no edema noted Arm (L), no edema noted Arm (R), no edema noted Leg (L), no edema noted Leg (R), no edema noted Pedal (L), no edema noted Pedal (R), no edema noted Generalized Neurologic: motor weakness Skin: normal pigmentation, warm/dry Reid Anaya DO Sep 17, 2017 14:34
--- NOTE | 2017-09-17 15:25 | General Progress Note ---
Assessment/Plan Status: unchanged Assessment/Plan # Anemia of chronic disease. --> Continue to closely monitor for stability. --> Obtain further workup with ferritin and tibc --> Hgb goal above >7 --> 09/15 1 unit PRBC. --> 09/17: Hgb at 7.5 # Leukocytosis. due to infection, however no source is found --> Closely monitor for improvement. --> 09/17: WBC 15.6, trending downwards. --> Currently on IV abx. --> 09/17: Currently febrile at 102.4 # Thrombocytosis. Likely reactive process to anemia --> Closely monitor PLT count for improvement. --> should improve with improvement in anemia as well --> 09/17: PLT count of 595, remains elevated but trending downwards. # Transaminitis. Trending downwards. The time the note was entered does not necessarily correspond to the time the patient was seen. Subjective Date patient seen: Sep 17, 2017 ROS Limited/Unobtainable: Yes Constitutional: Reports: fever Hematologic/Lymphatic: Reports: anemia Allergies: Coded Allergies: NO KNOWN ALLERGIES (Verified Allergy, Unknown, 09/02/17) All Systems: reviewed and negative except above Subjective Pt awake and confused. Pt febrile at 102.4. HD planned for today. Objective Last 24 Hour Vital Signs Date Time Temp Pulse Resp B/P (MAP) Pulse Ox O2 Delivery O2 Flow Rate FiO2 09/17/17 13:14 100.7 09/17/17 12:15 100.5 09/17/17 12:00 100.5 85 20 133/81 (98) 96 100.5 09/17/17 09:27 138/78 09/17/17 09:00 Room Air 09/17/17 08:00 97.8 77 19 138/78 (98) 96 97.8 09/17/17 06:12 137/75 09/17/17 04:00 98.8 77 21 137/75 (95) 93 98.8 09/16/17 21:10 153/92 09/16/17 21:00 Room Air 09/16/17 20:00 98.8 85 21 153/92 (112) 96 98.8 09/16/17 16:57 129/81 09/16/17 16:00 97.9 67 20 129/81 (97) 94 97.9 Intake and Output 09/16/17 09/17/17 19:00 07:00 Intake Total 1250 ml 250 ml Balance 1250 ml 250 ml Intake Oral 540 ml IV Total 710 ml 250 ml # Voids 5 5 # Bowel Movements 2 Laboratory Tests 09/17/17 05:00: Urine Color Pale yellow, Urine Appearance Clear, Urine pH 8, Urine Specific [place] 1.010, Urine Protein 3+H, Urine Glucose (UA) Negative, Urine Ketones Negative, Urine Occult Blood 4+H, Urine Nitrite Negative, Urine Bilirubin Negative, Urine Urobilinogen Normal, Urine Leukocyte Esterase 3+H, Urine RBC 2- 4H, Urine WBC 10-15H, Urine Squamous Epithelial Cells Occasional, Urine Bacteria Occasional 09/17/17 05:40: White Blood Count 15.6H, Red Blood Count 2.38L, Hemoglobin 7.5L, Hematocrit 22.5L, Mean Corpuscular Volume 95, Mean Corpuscular Hemoglobin 31.5H, Mean Corpuscular Hemoglobin Concent 33.2, Red Cell Distribution Width 12.1, Platelet Count 595H, Mean Platelet Volume 5.9L, Neutrophils (%) (Auto) , Lymphocytes (%) (Auto) , Monocytes (%) (Auto) , Eosinophils (%) (Auto) , Basophils (%) (Auto) , Sodium Level 143, Potassium Level 3.6, Chloride Level 101, Carbon Dioxide Level 31, Anion Gap 11, Blood Urea Nitrogen 66H, Creatinine 10.4H, Estimat Glomerular Filtration Rate 5.6, Glucose Level 110H, Uric Acid 7.4H, Calcium Level 8.3L, Phosphorus Level 8.3H, Magnesium Level 2.5H, Total Bilirubin 0.5, Direct Bilirubin 0.2, Gamma Glutamyl Transpeptidase 119H, Aspartate Amino Transf (AST/ SGOT) 39H, Alanine Aminotransferase (ALT/SGPT) 77, Alkaline Phosphatase 71, Total Creatine Kinase 326H, Total Protein 6.7, Albumin 2.0L Height (Feet): 5 Height (Inches): 5.00 Weight (Pounds): 207 General Appearance: no apparent distress, confused EENT: PERRL/EOMI Neck: normal alignment Cardiovascular: normal peripheral pulses Respiratory/Chest: no respiratory distress Abdomen: soft Diogenes Flores MD Sep 17, 2017 15:25
--- NOTE | 2017-09-17 15:38 | General Progress Note ---
Assessment/Plan Status: unchanged Assessment/Plan mdd polysubstance dependence opioid and benzo withdrawal -cont methadone increased the dose -cont clonidine/ decrease the dose -dc Remeron -Seroquel 50mg q4 prn -Seroquel 50mg bid -Seroquel 100mg qhs Subjective Date patient seen: Sep 17, 2017 Neurologic/Psychiatric: Reports: anxiety, depressed Allergies: Coded Allergies: NO KNOWN ALLERGIES (Verified Allergy, Unknown, 09/02/17) Subjective the pt is more confused not agitated. Objective Last 24 Hour Vital Signs Date Time Temp Pulse Resp B/P (MAP) Pulse Ox O2 Delivery O2 Flow Rate FiO2 09/17/17 13:14 100.7 09/17/17 12:15 100.5 09/17/17 12:00 100.5 85 20 133/81 (98) 96 100.5 09/17/17 09:27 138/78 09/17/17 09:00 Room Air 09/17/17 08:00 97.8 77 19 138/78 (98) 96 97.8 09/17/17 06:12 137/75 09/17/17 04:00 98.8 77 21 137/75 (95) 93 98.8 09/16/17 21:10 153/92 09/16/17 21:00 Room Air 09/16/17 20:00 98.8 85 21 153/92 (112) 96 98.8 09/16/17 16:57 129/81 09/16/17 16:00 97.9 67 20 129/81 (97) 94 97.9 Intake and Output 09/16/17 09/17/17 19:00 07:00 Intake Total 1250 ml 250 ml Balance 1250 ml 250 ml Intake Oral 540 ml IV Total 710 ml 250 ml # Voids 5 5 # Bowel Movements 2 Laboratory Tests 09/17/17 05:00: Urine Color Pale yellow, Urine Appearance Clear, Urine pH 8, Urine Specific [place] 1.010, Urine Protein 3+H, Urine Glucose (UA) Negative, Urine Ketones Negative, Urine Occult Blood 4+H, Urine Nitrite Negative, Urine Bilirubin Negative, Urine Urobilinogen Normal, Urine Leukocyte Esterase 3+H, Urine RBC 2- 4H, Urine WBC 10-15H, Urine Squamous Epithelial Cells Occasional, Urine Bacteria Occasional 09/17/17 05:40: White Blood Count 15.6H, Red Blood Count 2.38L, Hemoglobin 7.5L, Hematocrit 22.5L, Mean Corpuscular Volume 95, Mean Corpuscular Hemoglobin 31.5H, Mean Corpuscular Hemoglobin Concent 33.2, Red Cell Distribution Width 12.1, Platelet Count 595H, Mean Platelet Volume 5.9L, Neutrophils (%) (Auto) , Lymphocytes (%) (Auto) , Monocytes (%) (Auto) , Eosinophils (%) (Auto) , Basophils (%) (Auto) , Sodium Level 143, Potassium Level 3.6, Chloride Level 101, Carbon Dioxide Level 31, Anion Gap 11, Blood Urea Nitrogen 66H, Creatinine 10.4H, Estimat Glomerular Filtration Rate 5.6, Glucose Level 110H, Uric Acid 7.4H, Calcium Level 8.3L, Phosphorus Level 8.3H, Magnesium Level 2.5H, Total Bilirubin 0.5, Direct Bilirubin 0.2, Gamma Glutamyl Transpeptidase 119H, Aspartate Amino Transf (AST/ SGOT) 39H, Alanine Aminotransferase (ALT/SGPT) 77, Alkaline Phosphatase 71, Total Creatine Kinase 326H, Total Protein 6.7, Albumin 2.0L Height (Feet): 5 Height (Inches): 5.00 Weight (Pounds): 207 General Appearance: no apparent distress, alert, confused Leida Decker MD Sep 17, 2017 15:38
[2017-09-17] MEDS: Meropenem 500mg/NS 55ml IVPB SCH ×2 (15:48)
[2017-09-17 16:00] VITALS: BP 147/88
--- NOTE | 2017-09-17 18:40 | Neurology Progress Note ---
Interim History Interim History Interim History Mr. Stover feels unwell today. He feels hot and has a fever. He is more confused and agitated. He feels less energetic. He feels that his mind is less clear. He is still forgetful. He is still gets confused and has problems with orientation. His appetite is poor. He is generally weaker. He has not walked today. He denies any new neurologic symptoms. He specifically denies any weakness on one side or the other, numbness on one side or the other, problems with speech, problems with language, or problems with vision. Review of Systems Neuro Review of Systems Benign. Objective Physical Exam Last Vital Signs Date Time Temp Pulse Resp B/P (MAP) Pulse Ox O2 Delivery O2 Flow Rate FiO2 09/17/17 18:31 147/88 09/17/17 18:00 100.8 100.8 09/17/17 16:00 98 21 97 09/17/17 09:00 Room Air 09/14/17 20:33 4.0 21 Laboratory Tests Test 09/17/17 05:00 09/17/17 05:40 Urine Color Pale yellow Urine Appearance Clear Urine pH 8 (4.5-8.0) Urine Specific [place] 1.010 (1.005-1.035) Urine Protein 3+ (NEGATIVE) H Urine Glucose (UA) Negative (NEGATIVE) Urine Ketones Negative (NEGATIVE) Urine Occult Blood 4+ (NEGATIVE) H Urine Nitrite Negative (NEGATIVE) Urine Bilirubin Negative (NEGATIVE) Urine Urobilinogen Normal MG/DL (NORMAL) Urine Leukocyte Esterase 3+ (NEGATIVE) H Urine RBC 2-4 /HPF (0 - 0) H Urine WBC 10-15 /HPF (0 - 0) H Urine Squamous Epithelial Cells Occasional /LPF Urine Bacteria Occasional /HPF (NONE) White Blood Count 15.6 K/UL (4.8-10.8) H Red Blood Count 2.38 M/UL (4.70-6.10) L Hemoglobin 7.5 G/DL (14.2-18.0) L Hematocrit 22.5 % (42.0-52.0) L Mean Corpuscular Volume 95 FL (80-99) Mean Corpuscular Hemoglobin 31.5 PG (27.0-31.0) H Mean Corpuscular Hemoglobin Concent 33.2 G/DL (32.0-36.0) Red Cell Distribution Width 12.1 % (11.6-14.8) Platelet Count 595 K/UL (150-450) H Mean Platelet Volume 5.9 FL (6.5-10.1) L Neutrophils (%) (Auto) % (45.0-75.0) Lymphocytes (%) (Auto) % (20.0-45.0) Monocytes (%) (Auto) % (1.0-10.0) Eosinophils (%) (Auto) % (0.0-3.0) Basophils (%) (Auto) % (0.0-2.0) Sodium Level 143 MMOL/L (136-145) Potassium Level 3.6 MMOL/L (3.5-5.1) Chloride Level 101 MMOL/L (98-107) Carbon Dioxide Level 31 MMOL/L (21-32) Anion Gap 11 mmol/L (5-15) Blood Urea Nitrogen 66 mg/dL (7-18) H Creatinine 10.4 MG/DL (0.55-1.30) H Estimat Glomerular Filtration Rate 5.6 mL/min (>60) Glucose Level 110 MG/DL (74-106) H Uric Acid 7.4 MG/DL (2.6-7.2) H Calcium Level 8.3 MG/DL (8.5-10.1) L Phosphorus Level 8.3 MG/DL (2.5-4.9) H Magnesium Level 2.5 MG/DL (1.8-2.4) H Total Bilirubin 0.5 MG/DL (0.2-1.0) Direct Bilirubin 0.2 MG/DL (0.0-0.3) Gamma Glutamyl Transpeptidase 119 U/L (5-85) H Aspartate Amino Transf (AST/SGOT) 39 U/L (15-37) H Alanine Aminotransferase (ALT/SGPT) 77 U/L (12-78) Alkaline Phosphatase 71 U/L (46-116) Total Creatine Kinase 326 U/L (26-308) H Total Protein 6.7 G/DL (6.4-8.2) Albumin 2.0 G/DL (3.4-5.0) L Neurologic Exam Objective PHYSICAL EXAMINATION: GENERAL: He is a well-developed, well-nourished, gentleman, lying in bed. HEAD: Normocephalic and atraumatic. EENT: Examination benign. NECK: No neck rigidity was observed. NEUROLOGIC EXAMINATION: MENTAL STATUS EXAMINATION: He was awake and alert. He was oriented to self, and [facility] only He was able to recall 3/3 words immediately, but could only could not remember any of them in 1 and 3 minutes. He was unable to remember any [place] presidents. SPEECH: He had no dysarthria. LANGUAGE: He had a moderate anomia. CRANIAL NERVE EXAMINATION: II: The visual dinh were intact on confrontation testing. III, IV & : The external ocular movements were present. The pupils were 3 mm in diameter and reactive sluggishly to light. V: He had normal facial sensations and the temporales, masseters and pterygoids functioned well. VII: He had normal facial expressions and no facial asymmetry. VIII: He was able to hear well and had no nystagmus. IX: The palate moved symmetrically on phonation. X: He had no hoarseness of voice. XI: The sternocleidomastoids and trapezii functioned well. XII: The tongue was in the midline. MOTOR SYSTEM: The tone was normal in all four extremities. Examination of muscle mass revealed no focal wasting. Examination of power revealed G 5/5 power in all muscle groups except for G 0/5 in the right ankle dorsiflexors, toe extensors, ankle plantar flexors and toe flexors, G 5-/5 in the left ankle dorsiflexors and toe extensors, and G 4/5 in the iliopsoas muscle bilaterally. SENSORY EXAMINATION: He had altered sensations in the right peroneal distribution. REFLEXES: Trace+ and bilaterally symmetrical at the biceps, triceps, brachioradialis, and knees, 0 at both ankles. The plantar responses were flexor bilaterally. COORDINATION: He performed well on finger to nose testing. STANCE & GAIT: Could not be tested. Impression/Recommendations Diagnostic Impression 1. Mr. Enoch Stover is a 37-year-old, gentleman, of unknown handedness, who was found unconscious in a hotel room on 08/29/2017 after he had used multiple drugs. He was found to be possibly febrile, hypoglycemic, and breathing rapidly. Since then, he has been hospitalized and treated for sepsis. 2. He feels unwell today. He feels hot and has a fever. He is more confused and agitated. He feels less energetic. He feels that his mind is less clear. He is still forgetful. He is still gets confused and has problems with orientation. His appetite is poor. He is generally weaker. He has not walked today. He denies any new neurologic symptoms. 3. On neurological examination, at this time, he is awake but not alert. He is well oriented to self and place only. His problems with recent and remote memory are significantly worse. His speech is normal. He has a moderate anomia.His cranial nerves are also functioning normally. His motor function is relatively good he however has mild proximal lower extremity weakness, and mild distal left lower extremity weakness with no movement in the right ankle and toes. His sensations are altered in the right peroneal distribution. His deep tendon reflexes are diminished but his plantar responses are flexor. He also does not demonstrate any definite focal or lateralizing neurological findings. 4. The CT scan of the brain performed on 08/29/2017 and repeated on 09/04/17 is benign for acute pathology. 5. Laboratory data obtained thus far revealed, on admission, his hemoglobin was elevated to 18.4, his WBC was normal at 8,500, but since then his WBCs have peaked to 17,200. His chemistry panel on admission revealed BUN elevated to 31 , creatinine elevated to 3.6, lactic acid elevated to 5.5, bilirubin elevated at 1.2, AST elevated at 478, ALT elevated to 159, CK elevated to greater than 10 ,000, troponin elevated at 1.01, BNP elevated to 2143. His urine toxicology screen was positive for opiates, amphetamines, cocaine, and marijuana. His INR was elevated at 1.2. His TSH is elevated at 4.72. The T3 is low but the T4 is normal. 6. The patient's history, neurological examination, laboratory data, and imaging studies are most compatible with an altered mental state due to a toxic metabolic encephalopathy. 7. The most likely etiology for the encephalopathy is the sepsis, possibly a period of hypoglycemia and ongoing multiple metabolic imbalances and the toxic imbalances. In addition the use of mind-altering drugs could have also been contributing. 8. His encephalopathy is still waxing and waning and significantly worse today most probably due to his toxic state. 9. He has also developed bilateral mild proximal lower extremity weakness, and in addition severe right distal lower extremity weakness with severe right peroneal and tibial nerve dysfunction. His sensations are also altered in the right peroneal distribution. Recommendations 1. Continue present management. 2. Continue aggressive treatment of the patient's infectious process. 3. Aggressive management of toxic/metabolic imbalances. 4. AFO for right foot drop. 5. PT/OT. 6. Observe closely. Chris Rikcetts M.D., M.S.P.H. CHRIS RICKETTS Sep 17, 2017 18:40
[2017-09-17 20:12] VITALS: BP 162/87
[2017-09-17 20:30] VITALS: BP 162/91
--- NOTE | 2017-09-17 21:30 | Consultation ---
DATE OF CONSULTATION: 09/17/2017 REASON FOR CONSULTATION: Scrotal swelling. HISTORY OF PRESENT ILLNESS: The patient is a 37-year-old male, who was admitted to the hospital and found unresponsive and is going through multiple different evaluations. He developed scrotal edema. ALLERGIES: We are unable to access his history. Also medical history was unobtainable. REVIEW OF SYMPTOMS: Essentially as above except he has an enlarged scrotum and complaints. PHYSICAL EXAM: VITAL SIGNS: He is afebrile. Vital signs stable. NEUROLOGICAL: As above. LUNGS: Clear. CARDIOVASCULAR: Regular rate and rhythm. ABDOMEN: Soft. Slightly distended in the suprapubic area. GENITOURINARY: Scrotum was enlarged and swollen. No transillumination. LABORATORY DATA: Reviewed. Showed a white count of 15.6, hematocrit is 22.5, and creatinine of 10.4. ASSESSMENT/PLAN: The patient has scrotal edema, which is interstitial and relates to the third spacing. I recommend scrotal elevation and observation. No aggressive procedures needs to be done at this point. Karan Bhatia M.D. DR: DAISY JOB#: [id number] CC:
[2017-09-18] VITALS (7 sets, daily range): BP systolic 112–158; BP diastolic 75–90
[2017-09-18] MEDS: Dyna-Hex 2% Top Sol 2oz TOPIC SCH ×2 (00:51→21:37)
[2017-09-18] MEDS: Heparin 5000 units/ml inj SUBQ SCH ×3 (00:52→21:38)
[2017-09-18 06:13] LABS: HEMATOCRIT 18.2 % (42.0-52.0); MEAN CORPUSCULAR VOLUME 93 FL (80-99); PLATELET COUNT 475 K/UL (150-450); RED BLOOD COUNT 1.96 M/UL (4.70-6.10); RED CELL DISTRIBUTION WIDTH 11.4 % (11.6-14.8)
[2017-09-18 06:26] LABS: HEMOGLOBIN 6.2 G/DL (14.2-18.0); WHITE BLOOD COUNT 29.6 K/UL (4.8-10.8)
[2017-09-18 06:36] LABS: ANION GAP 12 mmol/L (5-15); BLOOD UREA NITROGEN 69 mg/dL (7-18); CALCIUM 7.9 MG/DL (8.5-10.1); CARBON DIOXIDE 27 MMOL/L (21-32); CHLORIDE 101 MMOL/L (98-107); POTASSIUM 3.5 MMOL/L (3.5-5.1); SODIUM 140 MMOL/L (136-145)
[2017-09-18 06:49] LABS: APPEARANCE,URINE CLEAR; BILIRUBIN, URINE NEGATIVE (NEGATIVE); COLOR,URINE PALE YELLOW; GLUCOSE, URINE (UA) NEGATIVE (NEGATIVE); KETONES,URINE NEGATIVE (NEGATIVE); LEUKOCYTE ESTERASE ,URINE 3+ (NEGATIVE); NITRITE,URINE NEGATIVE (NEGATIVE); PH,URINE 8 (4.5-8.0); PROTEIN,URINE 3+ (NEGATIVE); UROBILINOGEN,URINE NORMAL (NORMAL)
[2017-09-18] MEDS: Docusate 100mg cap ORAL SCH ×3 (09:14→18:00)
--- NOTE | 2017-09-18 10:16 | GI Progress Note ---
Assessment/Plan Problems: (1) Severe sepsis ICD Codes: A41.9 - Sepsis, unspecified organism; R65.20 - Severe sepsis without septic shock SNOMED: 04190819 (2) Rhabdomyolysis ICD Codes: M62.82 - Rhabdomyolysis SNOMED: 382165639 Qualifiers: Qualified Codes: T79.6XXA - Traumatic ischemia of muscle, initial encounter (3) Aspiration pneumonia ICD Codes: J69.0 - Pneumonitis due to inhalation of food and vomit SNOMED: 834270221 Qualifiers: Qualified Codes: J69.0 - Pneumonitis due to inhalation of food and vomit (4) Substance abuse ICD Codes: F19.10 - Other psychoactive substance abuse, uncomplicated SNOMED: 84300934 (5) Transaminitis ICD Codes: R74.0 - Nonspecific elevation of levels of transaminase and lactic acid dehydrogenase [LDH] SNOMED: 982248607, 680643262 Status: stable Status Narrative Discussed with Dr. Chavez. Assessment/Plan Hep A immunity Hep C positive transaminitis >> downtrending, near normal levels cdiff negative stool culture >> gram negative bacillus elevated lipase >> now normal OB stool negative drop in Hgb today send for addition OB stool prn transfusions renal diet abx supportive care ppi fu labs, lipase, trend LFTs outpatient Hep C tx The patient was seen and examined at bedside and all new and available data was reviewed in the patients chart. I agree with the above findings, impression and plan. (Patient seen earlier today. Signature stamp does not reflect patient encounter time.). - Efrain Chavez MD Subjective Subjective limited, has periods of confusion Objective Last 24 Hour Vital Signs Date Time Temp Pulse Resp B/P (MAP) Pulse Ox O2 Delivery O2 Flow Rate FiO2 09/18/17 09:14 145/85 09/18/17 08:47 98.6 09/18/17 07:48 101.7 09/18/17 07:27 101.7 94 19 145/85 (105) 96 101.7 09/18/17 04:09 99.9 104 20 147/90 (109) 93 99.9 09/18/17 02:42 143/91 09/18/17 01:01 102.7 09/18/17 00:27 99.5 102 17 145/75 (98) 95 99.5 09/18/17 00:00 99.5 78 16 158/77 (104) 99.5 09/18/17 00:00 Room Air 09/17/17 21:00 Room Air 09/17/17 20:30 Room Air 09/17/17 20:30 99.0 102 16 162/91 (114) 99.0 09/17/17 20:12 98.2 62 20 162/87 (112) 100 98.2 09/17/17 18:31 147/88 09/17/17 18:00 100.8 100.8 09/17/17 16:00 101.8 98 21 147/88 (107) 97 101.8 09/17/17 15:49 102.4 09/17/17 12:15 100.5 09/17/17 12:00 100.5 85 20 133/81 (98) 96 100.5 Intake and Output 09/17/17 09/18/17 19:00 07:00 Intake Total 460 ml Output Total 1090 ml Balance 460 ml -1090 ml Intake Oral 150 ml IV Total 310 ml Hemodialysis UF 1090 ml # Voids 4 # Bowel Movements 1 Laboratory Tests Test 09/18/17 05:35 White Blood Count 29.6 K/UL (4.8-10.8) #*H Red Blood Count 1.96 M/UL (4.70-6.10) L Hemoglobin 6.2 G/DL (14.2-18.0) *L Hematocrit 18.2 % (42.0-52.0) L Mean Corpuscular Volume 93 FL (80-99) Mean Corpuscular Hemoglobin 31.5 PG (27.0-31.0) H Mean Corpuscular Hemoglobin Concent 33.9 G/DL (32.0-36.0) Red Cell Distribution Width 11.4 % (11.6-14.8) L Platelet Count 475 K/UL (150-450) H Mean Platelet Volume 5.8 FL (6.5-10.1) L Neutrophils (%) (Auto) % (45.0-75.0) Lymphocytes (%) (Auto) % (20.0-45.0) Monocytes (%) (Auto) % (1.0-10.0) Eosinophils (%) (Auto) % (0.0-3.0) Basophils (%) (Auto) % (0.0-2.0) Differential Total Cells Counted 100 Neutrophils % (Manual) 87 % (45-75) H Lymphocytes % (Manual) 7 % (20-45) L Monocytes % (Manual) 5 % (1-10) Eosinophils % (Manual) 0 % (0-3) Basophils % (Manual) 0 % (0-2) Band Neutrophils 1 % (0-8) Platelet Estimate Increased H Platelet Morphology Normal Red Blood Cell Morphology Hypochromasia 1+ Sodium Level 140 MMOL/L (136-145) Potassium Level 3.5 MMOL/L (3.5-5.1) Chloride Level 101 MMOL/L (98-107) Carbon Dioxide Level 27 MMOL/L (21-32) Anion Gap 12 mmol/L (5-15) Blood Urea Nitrogen 69 mg/dL (7-18) H Creatinine 10.0 MG/DL (0.55-1.30) H Estimat Glomerular Filtration Rate 5.8 mL/min (>60) Glucose Level 115 MG/DL (74-106) H Calcium Level 7.9 MG/DL (8.5-10.1) L Lipase 361 U/L (73-393) Height (Feet): 5 Height (Inches): 5.00 Weight (Pounds): 210 General Appearance: WD/WN, no apparent distress, alert Cardiovascular: normal rate Respiratory/Chest: normal breath sounds, no respiratory distress Abdominal Exam: normal bowel sounds, non tender, soft Extremities: normal range of motion, non-tender Carlos Lopez NP Sep 18, 2017 10:16
--- NOTE | 2017-09-18 11:50 | Infectious Diseases Prog Note ---
Assessment/Plan Assessment/Plan Aspiration PNA -CXR 09/04 : Interim development of hazy interstitial and airspace disease in the right lung. This may to some extent be an artifact of less optimal inspiration, however. Interim extubation -sp cx normal ann; repeat sp cx MSSA -legionella ag urine neg Sp sepsis - Leukocytosis - Improving - No source found - Pancreatitis ? -u/a wbc 5-10, nit neg, leuk +1; cx neg -Bcx NTD (09/05 abd 09/07) -2d Echo (limited but no vegetations seen) - No Veg on KATELYN 09/10/17 - Tagged WBCs no focal uptake - MRI pelvis 09/11/17 : Diffuse symmetric edema of the bilateral buttock musculature , ? Myositis Discrete 3 x 3 x 7.3 cm fluid collection in the lateral left buttock musculature 09/13 SP No purulent material aspirated. Only small amount of blood aspirated Cx : Negative Fever: soruce ? Rhabdo vs pancreatitis -Cdiff neg -v/duplex no DVT -HIV ab sc and VL neg, RPR/FTA, GC/CL neg Hep C +; VL pending -ABD US: Gallbladder sludge. Negative for gallstones or dilated ducts. Equivocal increased hepatic echogenicity, if real could indicate hepatocellular disease such as fatty change. Borderline hepatomegaly. Mildly increased renal echogenicity, could indicate medical renal disease. Correlate with renal function tests. Left pleural effusion -Hep A and B immune Drug overdose -UDS + opiates, amphetamines, THC, cocaine -+empty heroin needles (found on hotel room) Multiorgan failure -LUCRECIA, - on HD -Transaminitis, (shock liver); improving -VDRF (airway protection)- extubaetd 09/03 Lactic acidosis; resolved Rhabdomyolisis; improving Pancreatitis- drug induced -neg alcohol levels Encephalopathy - improved -CT head 09/04: Unusual scalp contusion, new since prior study 08/29/2017. No evidence of underlying calvarial trauma. Negative for acute intracranial bleed or mass effect Plan: - If has another fever or leukocytosis not down trending will likely restart antifungal - F/U Cultures - Contuinue IV Dapto d# 5/7 ( may stop Dapto if CK worsen or more than 10x Nl ) and Merrem d# 5/7 ( empirically ) - 09/14/17 - SP IV Micafungin # 7 ( Emperic coverage of fungemia ) -09/14/17 - S/P IV Vanco and Zosyn # 9 -09/04 SP IV Azithromycin #3 -09/03 SP Zosyn #6 - Monitor CBC/CMP, temperatures - aspiration precautions - CRP - Monitor CK - Neuro,cardio, renal, GI f/u Subjective Allergies: Coded Allergies: NO KNOWN ALLERGIES (Verified Allergy, Unknown, 09/02/17) Subjective Patient spike fever yesterday now resolved. No N/V/D, No Pain. Objective Vital Signs Last 24 Hour Vital Signs Date Time Temp Pulse Resp B/P (MAP) Pulse Ox O2 Delivery O2 Flow Rate FiO2 09/18/17 11:25 99.0 105 19 112/76 (88) 95 99.0 09/18/17 09:14 145/85 09/18/17 08:47 98.6 09/18/17 08:30 Room Air 09/18/17 07:48 101.7 09/18/17 07:27 101.7 94 19 145/85 (105) 96 101.7 09/18/17 04:09 99.9 104 20 147/90 (109) 93 99.9 09/18/17 02:42 143/91 09/18/17 01:01 102.7 09/18/17 00:27 99.5 102 17 145/75 (98) 95 99.5 09/18/17 00:00 99.5 78 16 158/77 (104) 99.5 09/18/17 00:00 Room Air 09/17/17 21:00 Room Air 09/17/17 20:30 Room Air 09/17/17 20:30 99.0 102 16 162/91 (114) 99.0 09/17/17 20:12 98.2 62 20 162/87 (112) 100 98.2 09/17/17 18:31 147/88 09/17/17 18:00 100.8 100.8 09/17/17 16:00 101.8 98 21 147/88 (107) 97 101.8 09/17/17 15:49 102.4 09/17/17 12:15 100.5 09/17/17 12:00 100.5 85 20 133/81 (98) 96 100.5 Height (Feet): 5 Height (Inches): 5.00 Weight (Pounds): 210 Objective General: NAD, Awake and talking HEENT: NCAT, MMM, EOMI, PERRL Heart: RRR, no m/r/g, right HD line in place CLISA = 0 Lungs: CTA x2, No W/C, HD line right chest ABD: Soft, NT, ND, BS+ Extremity: no edema or cellulitis Neuro: A/O x 4, Grossly nonfocal Microbiology Date/Time Source Procedure Growth Status 09/17/17 05:00 Urine,Clean Catch Urine Culture - Preliminary Gram Negative Bacillus 1 Resulted Laboratory Tests Test 09/18/17 05:35 White Blood Count 29.6 K/UL (4.8-10.8) #*H Red Blood Count 1.96 M/UL (4.70-6.10) L Hemoglobin 6.2 G/DL (14.2-18.0) *L Hematocrit 18.2 % (42.0-52.0) L Mean Corpuscular Volume 93 FL (80-99) Mean Corpuscular Hemoglobin 31.5 PG (27.0-31.0) H Mean Corpuscular Hemoglobin Concent 33.9 G/DL (32.0-36.0) Red Cell Distribution Width 11.4 % (11.6-14.8) L Platelet Count 475 K/UL (150-450) H Mean Platelet Volume 5.8 FL (6.5-10.1) L Neutrophils (%) (Auto) % (45.0-75.0) Lymphocytes (%) (Auto) % (20.0-45.0) Monocytes (%) (Auto) % (1.0-10.0) Eosinophils (%) (Auto) % (0.0-3.0) Basophils (%) (Auto) % (0.0-2.0) Differential Total Cells Counted 100 Neutrophils % (Manual) 87 % (45-75) H Lymphocytes % (Manual) 7 % (20-45) L Monocytes % (Manual) 5 % (1-10) Eosinophils % (Manual) 0 % (0-3) Basophils % (Manual) 0 % (0-2) Band Neutrophils 1 % (0-8) Platelet Estimate Increased H Platelet Morphology Normal Red Blood Cell Morphology Hypochromasia 1+ Sodium Level 140 MMOL/L (136-145) Potassium Level 3.5 MMOL/L (3.5-5.1) Chloride Level 101 MMOL/L (98-107) Carbon Dioxide Level 27 MMOL/L (21-32) Anion Gap 12 mmol/L (5-15) Blood Urea Nitrogen 69 mg/dL (7-18) H Creatinine 10.0 MG/DL (0.55-1.30) H Estimat Glomerular Filtration Rate 5.8 mL/min (>60) Glucose Level 115 MG/DL (74-106) H Calcium Level 7.9 MG/DL (8.5-10.1) L Lipase 361 U/L (73-393) Current Medications Medications (Trade) Dose Ordered Sig/Krystyna Route PRN Reason Start Time Stop Time Status Last Admin Dose Admin Acetaminophen (Tylenol) 650 mg Q4H PRN ORAL Fever (temp>100.5F) 09/05/17 18:30 10/05/17 18:29 09/18/17 07:48 Chlorhexidine Gluconate (Jyotsna-Hex 2%) 1 applic DAILY@2000 TOPIC 09/05/17 20:00 09/29/17 19:59 09/18/17 00:51 Clonidine HCl (Catapres Tab) 0.1 mg Q8H ORAL 09/17/17 18:00 10/10/17 03:59 09/18/17 09:14 Daptomycin 550 mg/ Sodium Chloride 55 ml @ 100 mls/hr Q48H IV 09/14/17 19:00 09/21/17 18:59 09/16/17 18:57 Dextrose (Dextrose 50%) 25 ml STAT PRN IV Hypoglycemia 09/05/17 18:30 10/05/17 18:29 Dextrose (Dextrose 50%) 50 ml STAT PRN IV Hypoglycemia 09/05/17 18:30 10/05/17 18:29 Docusate Sodium (Colace) 100 mg TID ORAL 09/17/17 13:00 10/17/17 12:59 09/18/17 09:14 Famotidine (Pepcid) 20 mg DAILY ORAL 09/07/17 09:00 10/07/17 08:59 09/18/17 09:14 Heparin Sodium (Porcine) (Heparin 5000 units/ml) 5,000 units EVERY 12 HOURS SUBQ 09/05/17 21:00 09/28/17 20:59 8/8/18 09:14 Meropenem 500 mg/ Sodium Chloride 55 ml @ 110 mls/hr Q24H IVPB 09/15/17 16:00 09/20/17 15:59 09/17/17 15:48 Mirtazapine (Remeron) 15 mg BEDTIME ORAL 09/05/17 21:00 10/04/17 20:59 09/18/17 00:51 Nitroglycerin (Ntg) 0.4 mg Q5M PRN SL Prn Chest Pain 09/05/17 18:30 09/28/17 14:44 Quetiapine Fumarate (SEROquel) 50 mg DAILY ORAL 09/17/17 09:00 10/17/17 08:59 09/18/17 09:13 Quetiapine Fumarate (SEROquel) 50 mg Q4H PRN ORAL agitation 09/10/17 14:00 10/10/17 13:59 09/18/17 01:47 Quetiapine Fumarate (SEROquel) 50 mg QLUNCH ORAL 09/17/17 11:30 10/17/17 11:29 09/17/17 12:10 Quetiapine Fumarate (SEROquel) 100 mg BEDTIME ORAL 09/16/17 21:00 10/16/17 20:59 09/17/17 20:19 Sevelamer Carbonate (Renvela) 1,600 mg THREE TIMES A DAY ORAL 09/18/17 09:00 10/18/17 08:59 09/18/17 09:14 Jean Cervantes M.D. Sep 18, 2017 11:50
--- NOTE | 2017-09-18 12:22 | General Progress Note ---
Assessment/Plan Problem List: (1) Substance abuse ICD Codes: F19.10 - Other psychoactive substance abuse, uncomplicated SNOMED: 57139271 (2) Respiratory failure ICD Codes: J96.90 - Respiratory failure, unspecified, unspecified whether with hypoxia or hypercapnia SNOMED: 750316964 Qualifiers: Qualified Codes: J96.01 - Acute respiratory failure with hypoxia (3) Rhabdomyolysis ICD Codes: M62.82 - Rhabdomyolysis SNOMED: 149318838 Qualifiers: Qualified Codes: T79.6XXA - Traumatic ischemia of muscle, initial encounter (4) NSTEMI (non-ST elevated myocardial infarction) ICD Codes: I21.4 - Non-ST elevation (NSTEMI) myocardial infarction SNOMED: 871255941 (5) LUCRECIA (acute kidney injury) ICD Codes: N17.9 - Acute kidney failure, unspecified SNOMED: 47662612 Status: unchanged Assessment/Plan ot pt diet abx neuro psyc eval cbc bmp am Subjective Constitutional: Reports: weakness Allergies: Coded Allergies: NO KNOWN ALLERGIES (Verified Allergy, Unknown, 09/02/17) All Systems: reviewed and negative except above Subjective calm in bed sleepy Objective Last 24 Hour Vital Signs Date Time Temp Pulse Resp B/P (MAP) Pulse Ox O2 Delivery O2 Flow Rate FiO2 09/18/17 11:25 99.0 105 19 112/76 (88) 95 99.0 09/18/17 09:14 145/85 09/18/17 08:47 98.6 09/18/17 08:30 Room Air 09/18/17 07:48 101.7 09/18/17 07:27 101.7 94 19 145/85 (105) 96 101.7 09/18/17 04:09 99.9 104 20 147/90 (109) 93 99.9 09/18/17 02:42 143/91 09/18/17 01:01 102.7 09/18/17 00:27 99.5 102 17 145/75 (98) 95 99.5 09/18/17 00:00 99.5 78 16 158/77 (104) 99.5 09/18/17 00:00 Room Air 09/17/17 21:00 Room Air 09/17/17 20:30 Room Air 09/17/17 20:30 99.0 102 16 162/91 (114) 99.0 8/7/18 20:12 98.2 62 20 162/87 (112) 100 98.2 09/17/17 18:31 147/88 09/17/17 18:00 100.8 100.8 09/17/17 16:00 101.8 98 21 147/88 (107) 97 101.8 09/17/17 15:49 102.4 Intake and Output 09/17/17 09/18/17 19:00 07:00 Intake Total 460 ml Output Total 1090 ml Balance 460 ml -1090 ml Intake Oral 150 ml IV Total 310 ml Hemodialysis UF 1090 ml # Voids 4 # Bowel Movements 1 Laboratory Tests 09/18/17 05:35: White Blood Count 29.6#*H, Red Blood Count 1.96L, Hemoglobin 6.2*L, Hematocrit 18.2L, Mean Corpuscular Volume 93, Mean Corpuscular Hemoglobin 31.5H, Mean Corpuscular Hemoglobin Concent 33.9, Red Cell Distribution Width 11.4L, Platelet Count 475H, Mean Platelet Volume 5.8L, Neutrophils (%) (Auto) , Lymphocytes (%) (Auto) , Monocytes (%) (Auto) , Eosinophils (%) (Auto) , Basophils (%) (Auto) , Differential Total Cells Counted 100, Neutrophils % ( Manual) 87H, Lymphocytes % (Manual) 7L, Monocytes % (Manual) 5, Eosinophils % ( Manual) 0, Basophils % (Manual) 0, Band Neutrophils 1, Platelet Estimate IncreasedH, Platelet Morphology Normal, Red Blood Cell Morphology , Hypochromasia 1+, Sodium Level 140, Potassium Level 3.5, Chloride Level 101, Carbon Dioxide Level 27, Anion Gap 12, Blood Urea Nitrogen 69H, Creatinine 10.0H , Estimat Glomerular Filtration Rate 5.8, Glucose Level 115H, Calcium Level 7.9L , Lipase 361 Height (Feet): 5 Height (Inches): 5.00 Weight (Pounds): 210 General Appearance: lethargic EENT: normal ENT inspection Neck: normal alignment Cardiovascular: normal peripheral pulses, normal rate, regular rhythm Respiratory/Chest: chest wall non-tender, lungs clear, normal breath sounds Abdomen: normal bowel sounds, non tender, soft Extremities: normal inspection Edema: no edema noted Arm (L), no edema noted Arm (R), no edema noted Leg (L), no edema noted Leg (R), no edema noted Pedal (L), no edema noted Pedal (R), no edema noted Generalized Reid Anaya DO Sep 18, 2017 12:22
--- NOTE | 2017-09-18 13:24 | Nephrology Progress Note ---
Assessment/Plan Problem List: (1) LUCRECIA (acute kidney injury) (2) Overdose (3) Rhabdomyolysis Assessment . Acute renal failure- On HD . Acute rhabdomyolysis.(anuric ) On admit . Hypocalcemia. . Hyperkalemia. Lactic acidosis. . Shock liver. . History of multiple drug use. Plan HD in am- check labs adjust meds- Phos binders- stool softner TRANSFUSION , RN notified and ordered Subjective ROS Limited/Unobtainable: No Constitutional: Reports: malaise Objective Objective Last 24 Hour Vital Signs Date Time Temp Pulse Resp B/P (MAP) Pulse Ox O2 Delivery O2 Flow Rate FiO2 09/18/17 11:25 99.0 105 19 112/76 (88) 95 99.0 09/18/17 09:14 145/85 09/18/17 08:47 98.6 09/18/17 08:30 Room Air 09/18/17 07:48 101.7 09/18/17 07:27 101.7 94 19 145/85 (105) 96 101.7 09/18/17 04:09 99.9 104 20 147/90 (109) 93 99.9 09/18/17 02:42 143/91 09/18/17 01:01 102.7 09/18/17 00:27 99.5 102 17 145/75 (98) 95 99.5 09/18/17 00:00 99.5 78 16 158/77 (104) 99.5 09/18/17 00:00 Room Air 09/17/17 21:00 Room Air 09/17/17 20:30 Room Air 09/17/17 20:30 99.0 102 16 162/91 (114) 99.0 09/17/17 20:12 98.2 62 20 162/87 (112) 100 98.2 09/17/17 18:31 147/88 09/17/17 18:00 100.8 100.8 09/17/17 16:00 101.8 98 21 147/88 (107) 97 101.8 09/17/17 15:49 102.4 Intake and Output 09/17/17 09/18/17 19:00 07:00 Intake Total 460 ml Output Total 1090 ml Balance 460 ml -1090 ml Intake Oral 150 ml IV Total 310 ml Hemodialysis UF 1090 ml # Voids 4 # Bowel Movements 1 Laboratory Tests 8/8/18 05:35: White Blood Count 29.6#*H, Red Blood Count 1.96L, Hemoglobin 6.2*L, Hematocrit 18.2L, Mean Corpuscular Volume 93, Mean Corpuscular Hemoglobin 31.5H, Mean Corpuscular Hemoglobin Concent 33.9, Red Cell Distribution Width 11.4L, Platelet Count 475H, Mean Platelet Volume 5.8L, Neutrophils (%) (Auto) , Lymphocytes (%) (Auto) , Monocytes (%) (Auto) , Eosinophils (%) (Auto) , Basophils (%) (Auto) , Differential Total Cells Counted 100, Neutrophils % ( Manual) 87H, Lymphocytes % (Manual) 7L, Monocytes % (Manual) 5, Eosinophils % ( Manual) 0, Basophils % (Manual) 0, Band Neutrophils 1, Platelet Estimate IncreasedH, Platelet Morphology Normal, Red Blood Cell Morphology , Hypochromasia 1+, Sodium Level 140, Potassium Level 3.5, Chloride Level 101, Carbon Dioxide Level 27, Anion Gap 12, Blood Urea Nitrogen 69H, Creatinine 10.0H , Estimat Glomerular Filtration Rate 5.8, Glucose Level 115H, Calcium Level 7.9L , Lipase 361 Height (Feet): 5 Height (Inches): 5.00 Weight (Pounds): 210 General Appearance: no apparent distress Cardiovascular: tachycardia Respiratory/Chest: decreased breath sounds Abdomen: soft Objective no change Ernesto Santillan MD Sep 18, 2017 13:24
[2017-09-18] MEDS ORDERED: Acetaminophen 500mg (ES) tab ORAL PRN (13:45)
[2017-09-18] MEDS: Aluminum Hydroxide Gel Susp 15ml ORAL SCH ×2 (14:33→22:35)
[2017-09-18] MEDS: Meropenem 500mg/NS 55ml IVPB SCH ×2 (15:56)
--- NOTE | 2017-09-18 16:34 | Neurology Progress Note ---
Interim History Interim History Interim History Mr. Stover feels relatively well. He is less confused and agitated. He feels more energetic. He feels that his mind is clearer. He is still forgetful. He is still gets confused and has problems with orientation. His appetite is better. He is generally stronger. He stood up with the PT and took a few steps. He denies any new neurologic symptoms. He specifically denies any weakness on one side or the other, numbness on one side or the other, problems with speech, problems with language, or problems with vision. Review of Systems Neuro Review of Systems Benign. Objective Physical Exam Last Vital Signs Date Time Temp Pulse Resp B/P (MAP) Pulse Ox O2 Delivery O2 Flow Rate FiO2 09/18/17 15:32 99.0 09/18/17 11:25 105 19 112/76 (88) 95 09/18/17 08:30 Room Air 09/14/17 20:33 4.0 21 Laboratory Tests Test 09/18/17 05:35 White Blood Count 29.6 K/UL (4.8-10.8) #*H Red Blood Count 1.96 M/UL (4.70-6.10) L Hemoglobin 6.2 G/DL (14.2-18.0) *L Hematocrit 18.2 % (42.0-52.0) L Mean Corpuscular Volume 93 FL (80-99) Mean Corpuscular Hemoglobin 31.5 PG (27.0-31.0) H Mean Corpuscular Hemoglobin Concent 33.9 G/DL (32.0-36.0) Red Cell Distribution Width 11.4 % (11.6-14.8) L Platelet Count 475 K/UL (150-450) H Mean Platelet Volume 5.8 FL (6.5-10.1) L Neutrophils (%) (Auto) % (45.0-75.0) Lymphocytes (%) (Auto) % (20.0-45.0) Monocytes (%) (Auto) % (1.0-10.0) Eosinophils (%) (Auto) % (0.0-3.0) Basophils (%) (Auto) % (0.0-2.0) Differential Total Cells Counted 100 Neutrophils % (Manual) 87 % (45-75) H Lymphocytes % (Manual) 7 % (20-45) L Monocytes % (Manual) 5 % (1-10) Eosinophils % (Manual) 0 % (0-3) Basophils % (Manual) 0 % (0-2) Band Neutrophils 1 % (0-8) Platelet Estimate Increased H Platelet Morphology Normal Red Blood Cell Morphology Hypochromasia 1+ Sodium Level 140 MMOL/L (136-145) Potassium Level 3.5 MMOL/L (3.5-5.1) Chloride Level 101 MMOL/L (98-107) Carbon Dioxide Level 27 MMOL/L (21-32) Anion Gap 12 mmol/L (5-15) Blood Urea Nitrogen 69 mg/dL (7-18) H Creatinine 10.0 MG/DL (0.55-1.30) H Estimat Glomerular Filtration Rate 5.8 mL/min (>60) Glucose Level 115 MG/DL (74-106) H Calcium Level 7.9 MG/DL (8.5-10.1) L Lipase 361 U/L (73-393) Neurologic Exam Objective PHYSICAL EXAMINATION: GENERAL: He is a well-developed, well-nourished, gentleman, lying in bed. HEAD: Normocephalic and atraumatic. EENT: Examination benign. NECK: No neck rigidity was observed. NEUROLOGIC EXAMINATION: MENTAL STATUS EXAMINATION: He was awake and alert. He was oriented to self, and [facility] and September 2017. He was able to recall 3/3 words immediately, but could only could only remember 1/3 in 1 and 3 minutes. He was able to remember presidents Trump and Obama only. SPEECH: He had no dysarthria. LANGUAGE: He had a moderate anomia. CRANIAL NERVE EXAMINATION: II: The visual dinh were intact on confrontation testing. III, IV & : The external ocular movements were present. The pupils were 3 mm in diameter and reactive sluggishly to light. V: He had normal facial sensations and the temporales, masseters and pterygoids functioned well. VII: He had normal facial expressions and no facial asymmetry. VIII: He was able to hear well and had no nystagmus. IX: The palate moved symmetrically on phonation. X: He had no hoarseness of voice. XI: The sternocleidomastoids and trapezii functioned well. XII: The tongue was in the midline. MOTOR SYSTEM: The tone was normal in all four extremities. Examination of muscle mass revealed no focal wasting. Examination of power revealed G 5/5 power in all muscle groups except for G 0/5 in the right ankle dorsiflexors, toe extensors, ankle plantar flexors and toe flexors, G 5-/5 in the left ankle dorsiflexors and toe extensors, and G 4/5 in the iliopsoas muscle bilaterally. SENSORY EXAMINATION: He had altered sensations in the right peroneal distribution. REFLEXES: Trace+ and bilaterally symmetrical at the biceps, triceps, brachioradialis, and knees, 0 at both ankles. The plantar responses were flexor bilaterally. COORDINATION: He performed well on finger to nose testing. STANCE & GAIT: Could not be tested. Impression/Recommendations Diagnostic Impression 1. Mr. Enoch Stover is a 37-year-old, gentleman, of unknown handedness, who was found unconscious in a hotel room on 08/29/2017 after he had used multiple drugs. He was found to be possibly febrile, hypoglycemic, and breathing rapidly. Since then, he has been hospitalized and treated for sepsis. 2. He feels relatively well. He is less confused and agitated. He feels more energetic. He feels that his mind is clearer. He is still forgetful. He is still gets confused and has problems with orientation. His appetite is better. He is generally stronger. He stood up with the PT and took a few steps. He denies any new neurologic symptoms. 3. On neurological examination, at this time, he is awake but not alert. He is well oriented except to the exact date. His problems with recent and remote memory are better. His speech is normal. He has a moderate anomia. His cranial nerves are functioning normally. His motor function is relatively good he however has mild proximal lower extremity weakness, and mild distal left lower extremity weakness with no movement in the right ankle and toes. His sensations are altered in the right peroneal distribution. His deep tendon reflexes are diminished but his plantar responses are flexor. He also does not demonstrate any definite focal or lateralizing neurological findings. 4. The CT scan of the brain performed on 08/29/2017 and repeated on 09/04/17 is benign for acute pathology. 5. Laboratory data obtained thus far revealed, on admission, his hemoglobin was elevated to 18.4, his WBC was normal at 8,500, but since then his WBCs have peaked to 17,200. His chemistry panel on admission revealed BUN elevated to 31 , creatinine elevated to 3.6, lactic acid elevated to 5.5, bilirubin elevated at 1.2, AST elevated at 478, ALT elevated to 159, CK elevated to greater than 10 ,000, troponin elevated at 1.01, BNP elevated to 2143. His urine toxicology screen was positive for opiates, amphetamines, cocaine, and marijuana. His INR was elevated at 1.2. His TSH is elevated at 4.72. The T3 is low but the T4 is normal. 6. The patient's history, neurological examination, laboratory data, and imaging studies are most compatible with an altered mental state due to a toxic metabolic encephalopathy. 7. The most likely etiology for the encephalopathy is the sepsis, possibly a period of hypoglycemia and ongoing multiple metabolic imbalances and the toxic imbalances. In addition the use of mind-altering drugs could have also been contributing. 8. His encephalopathy is still waxing and waning but is better today. 9. He has also developed bilateral mild proximal lower extremity weakness, and in addition severe right distal lower extremity weakness with severe right peroneal and tibial nerve dysfunction. His sensations are also altered in the right peroneal distribution. Recommendations 1. Continue present management. 2. Continue aggressive treatment of the patient's infectious process. 3. Aggressive management of toxic/metabolic imbalances. 4. AFO for right foot drop. 5. PT/OT. 6. Observe closely. Chris Ricketts M.D., M.S.P.H. CHRIS RICKETTS Sep 18, 2017 16:34
[2017-09-18 17:47] LABS: HEMATOCRIT 17.5 % (42.0-52.0); MEAN CORPUSCULAR VOLUME 92 FL (80-99); PLATELET COUNT 482 K/UL (150-450); RED CELL DISTRIBUTION WIDTH 11.3 % (11.6-14.8)
[2017-09-18] MEDS: Micafungin 100 MG in NS 110 ML IVPB SCH (18:03)
[2017-09-18 18:05] LABS: HEMOGLOBIN 6.2 G/DL (14.2-18.0); WHITE BLOOD COUNT 28.2 K/UL (4.8-10.8)
[2017-09-18] MEDS: DAPTOmycin 550 MG in NS 55 ML IV SCH (19:14)
[2017-09-19] VITALS (7 sets, daily range): BP systolic 94–163; BP diastolic 59–93
[2017-09-19] MEDS: Aluminum Hydroxide Gel Susp 15ml ORAL SCH ×3 (06:21→23:06)
[2017-09-19 06:23] LABS: HEMATOCRIT 22.4 % (42.0-52.0); HEMOGLOBIN 7.9 G/DL (14.2-18.0); MEAN CORPUSCULAR VOLUME 92 FL (80-99); PLATELET COUNT 434 K/UL (150-450); RED BLOOD COUNT 2.45 M/UL (4.70-6.10); RED CELL DISTRIBUTION WIDTH 11.8 % (11.6-14.8)
[2017-09-19 06:27] LABS: WHITE BLOOD COUNT 23.9 K/UL (4.8-10.8)
[2017-09-19 07:22] LABS: ALANINE AMINOTRANSFERASE 29 U/L (12-78); ALBUMIN 1.8 G/DL (3.4-5.0); ALBUMIN/GLOBULIN RATIO 0.4 (1.0-2.7); ALKALINE PHOSPHATASE 67 U/L (46-116); ANION GAP 13 mmol/L (5-15); ASPARTATE AMINO TRANSFERASE 27 U/L (15-37); BILIRUBIN,TOTAL 0.8 MG/DL (0.2-1.0); BLOOD UREA NITROGEN 72 mg/dL (7-18); CALCIUM 8.2 MG/DL (8.5-10.1); CARBON DIOXIDE 28 MMOL/L (21-32); CHLORIDE 102 MMOL/L (98-107); CREATININE 9.6 MG/DL (0.55-1.30); PHOSPHORUS 7.8 MG/DL (2.5-4.9); POTASSIUM 3.2 MMOL/L (3.5-5.1); SODIUM 142 MMOL/L (136-145)
[2017-09-19] MEDS: Docusate 100mg cap ORAL SCH ×3 (08:37→18:00)
[2017-09-19] MEDS: Heparin 5000 units/ml inj SUBQ SCH ×2 (08:38→21:08)
--- NOTE | 2017-09-19 09:37 | Infectious Diseases Prog Note ---
Assessment/Plan Assessment/Plan Aspiration PNA -CXR 09/04 : Interim development of hazy interstitial and airspace disease in the right lung. This may to some extent be an artifact of less optimal inspiration, however. Interim extubation -sp cx normal ann; repeat sp cx MSSA -legionella ag urine neg Sp sepsis - Leukocytosis - Improving - No source found - Pancreatitis ? -u/a wbc 5-10, nit neg, leuk +1; cx neg -Bcx NTD (09/05 abd 09/07) -2d Echo (limited but no vegetations seen) - No Veg on KATELYN 09/10/17 - Tagged WBCs no focal uptake - MRI pelvis 09/11/17 : Diffuse symmetric edema of the bilateral buttock musculature , ? Myositis Discrete 3 x 3 x 7.3 cm fluid collection in the lateral left buttock musculature 09/13 SP No purulent material aspirated. Only small amount of blood aspirated Cx : Negative Blood Cx 09/18/17 - NGTD Urine Cx 09/18/17 - NGTD Fever: soruce ? Rhabdo vs pancreatitis -Cdiff neg -v/duplex no DVT -HIV ab sc and VL neg, RPR/FTA, GC/CL neg Hep C +; VL pending -ABD US: Gallbladder sludge. Negative for gallstones or dilated ducts. Equivocal increased hepatic echogenicity, if real could indicate hepatocellular disease such as fatty change. Borderline hepatomegaly. Mildly increased renal echogenicity, could indicate medical renal disease. Correlate with renal function tests. Left pleural effusion -Hep A and B immune Drug overdose -UDS + opiates, amphetamines, THC, cocaine -+empty heroin needles (found on hotel room) Multiorgan failure -LUCRECIA, - on HD -Transaminitis, (shock liver); improving -VDRF (airway protection)- extubaetd 09/03 Lactic acidosis; resolved Rhabdomyolisis; improving Pancreatitis- drug induced -neg alcohol levels Encephalopathy - improved -CT head 09/04: Unusual scalp contusion, new since prior study 08/29/2017. No evidence of underlying calvarial trauma. Negative for acute intracranial bleed or mass effect Plan: - Leukocytosis improving - Continue to monitor - F/U Cultures - Contuinue IV Dapto d# 6/10 ( may stop Dapto if CK worsen or more than 10x Nl ) and Merrem d# 6/10 ( empirically ) - Continue Micafungin #2/7 - 09/14/17 - SP IV Micafungin # 7 ( Emperic coverage of fungemia ) -09/14/17 - S/P IV Vanco and Zosyn # 9 -09/04 SP IV Azithromycin #3 -09/03 SP Zosyn #6 - Monitor CBC/CMP, temperatures - aspiration precautions - CRP - Monitor CK - Neuro,cardio, renal, GI f/u Subjective Allergies: Coded Allergies: NO KNOWN ALLERGIES (Verified Allergy, Unknown, 09/02/17) Subjective Patient with continued low grade fever Got transfusion last night. No N/V/D, No Pain. Objective Vital Signs Last 24 Hour Vital Signs Date Time Temp Pulse Resp B/P (MAP) Pulse Ox O2 Delivery O2 Flow Rate FiO2 09/19/17 09:04 163/93 09/19/17 09:04 100.4 09/19/17 08:00 100.7 84 21 163/93 (116) 95 100.7 09/19/17 04:00 98.4 89 19 126/88 (101) 97 98.4 09/19/17 02:20 144/90 09/19/17 00:00 99.7 90 19 124/79 (94) 96 99.7 09/18/17 22:51 99.7 09/18/17 21:52 100.6 09/18/17 21:00 Room Air 09/18/17 20:00 98.6 85 19 125/79 (94) 96 98.6 09/18/17 18:03 125/74 09/18/17 16:38 100.4 86 19 128/87 (101) 100.4 09/18/17 15:32 99.0 09/18/17 11:25 99.0 105 19 112/76 (88) 95 99.0 Height (Feet): 5 Height (Inches): 5.00 Weight (Pounds): 202 Objective General: NAD, Awake and talking HEENT: NCAT, MMM, EOMI, No oral lesions. Heart: RRR, no m/r/g, right HD line in place CLISA = 0 Lungs: CTA x2, No W/C, HD line right chest ABD: Soft, NT, ND, BS+ Extremity: no edema or cellulitis Neuro: A/O x 4, Grossly nonfocal Microbiology Date/Time Source Procedure Growth Status 09/17/17 15:30 Blood Blood Culture - Preliminary NO GROWTH AFTER 24 HOURS Resulted 09/17/17 15:30 Blood Blood Culture - Preliminary NO GROWTH AFTER 24 HOURS Resulted 09/17/17 05:55 Urine,Clean Catch Urine Culture - Preliminary NO GROWTH Resulted 09/17/17 05:00 Urine,Clean Catch Urine Culture - Final Acinetobacter Baumannii Complx Complete Laboratory Tests Test 09/18/17 17:20 09/18/17 18:30 09/19/17 05:55 White Blood Count 28.2 K/UL (4.8-10.8) *H 23.9 K/UL (4.8-10.8) *H Red Blood Count 1.90 M/UL (4.70-6.10) L 2.45 M/UL (4.70-6.10) L Hemoglobin 6.2 G/DL (14.2-18.0) *L 7.9 G/DL (14.2-18.0) L Hematocrit 17.5 % (42.0-52.0) L 22.4 % (42.0-52.0) L Mean Corpuscular Volume 92 FL (80-99) 92 FL (80-99) Mean Corpuscular Hemoglobin 32.6 PG (27.0-31.0) H 32.3 PG (27.0-31.0) H Mean Corpuscular Hemoglobin Concent 35.4 G/DL (32.0-36.0) 35.3 G/DL (32.0-36.0) Red Cell Distribution Width 11.3 % (11.6-14.8) L 11.8 % (11.6-14.8) Platelet Count 482 K/UL (150-450) H 434 K/UL (150-450) Mean Platelet Volume 5.6 FL (6.5-10.1) L 5.9 FL (6.5-10.1) L Neutrophils (%) (Auto) % (45.0-75.0) % (45.0-75.0) Lymphocytes (%) (Auto) % (20.0-45.0) % (20.0-45.0) Monocytes (%) (Auto) % (1.0-10.0) % (1.0-10.0) Eosinophils (%) (Auto) % (0.0-3.0) % (0.0-3.0) Basophils (%) (Auto) % (0.0-2.0) % (0.0-2.0) Differential Total Cells Counted 100 100 Neutrophils % (Manual) 78 % (45-75) H 84 % (45-75) H Lymphocytes % (Manual) 11 % (20-45) L 7 % (20-45) L Monocytes % (Manual) 7 % (1-10) 7 % (1-10) Eosinophils % (Manual) 2 % (0-3) 1 % (0-3) Basophils % (Manual) 0 % (0-2) 0 % (0-2) Band Neutrophils 2 % (0-8) 1 % (0-8) Platelet Estimate Increased H Increased H Platelet Morphology Normal Normal Hypochromasia 1+ 1+ Anisocytosis 1+ Stool Occult Blood Negative (NEGATIVE) Sodium Level 142 MMOL/L (136-145) Potassium Level 3.2 MMOL/L (3.5-5.1) L Chloride Level 102 MMOL/L (98-107) Carbon Dioxide Level 28 MMOL/L (21-32) Anion Gap 13 mmol/L (5-15) Blood Urea Nitrogen 72 mg/dL (7-18) H Creatinine 9.6 MG/DL (0.55-1.30) H Estimat Glomerular Filtration Rate 6.1 mL/min (>60) Glucose Level 106 MG/DL (74-106) Uric Acid 9.0 MG/DL (2.6-7.2) H Calcium Level 8.2 MG/DL (8.5-10.1) L Phosphorus Level 7.8 MG/DL (2.5-4.9) H Magnesium Level 2.4 MG/DL (1.8-2.4) Total Bilirubin 0.8 MG/DL (0.2-1.0) Aspartate Amino Transf (AST/SGOT) 27 U/L (15-37) Alanine Aminotransferase (ALT/SGPT) 29 U/L (12-78) Alkaline Phosphatase 67 U/L (46-116) C-Reactive Protein, Quantitative 30.3 mg/dL (0.00-0.90) H Pro-B-Type Natriuretic Peptide 9332 pg/mL (0-125) H Total Protein 6.1 G/DL (6.4-8.2) L Albumin 1.8 G/DL (3.4-5.0) L Globulin 4.3 g/dL Albumin/Globulin Ratio 0.4 (1.0-2.7) L Current Medications Medications (Trade) Dose Ordered Sig/Krystyna Route PRN Reason Start Time Stop Time Status Last Admin Dose Admin Acetaminophen (Tylenol) 650 mg Q4H PRN ORAL Fever (temp>100.5F) 09/05/17 18:30 10/05/17 18:29 09/19/17 09:04 Aluminum Hydroxide (Amphojel) 1,920 mg Q8H ORAL 09/18/17 15:00 10/18/17 14:59 09/19/17 06:21 Chlorhexidine Gluconate (Jyotsna-Hex 2%) 1 applic DAILY@2000 TOPIC 09/05/17 20:00 09/29/17 19:59 09/18/17 21:37 Clonidine HCl (Catapres Tab) 0.1 mg Q8H ORAL 09/17/17 18:00 10/10/17 03:59 09/19/17 09:04 Daptomycin 550 mg/ Sodium Chloride 55 ml @ 100 mls/hr Q48H IV 09/14/17 19:00 09/21/17 18:59 09/18/17 19:14 Dextrose (Dextrose 50%) 25 ml STAT PRN IV Hypoglycemia 09/05/17 18:30 10/05/17 18:29 Dextrose (Dextrose 50%) 50 ml STAT PRN IV Hypoglycemia 09/05/17 18:30 10/05/17 18:29 Docusate Sodium (Colace) 100 mg TID ORAL 09/17/17 13:00 10/17/17 12:59 09/19/17 08:37 Heparin Sodium (Porcine) (Heparin 5000 units/ml) 5,000 units EVERY 12 HOURS SUBQ 09/05/17 21:00 09/28/17 20:59 09/19/17 08:38 Meropenem 500 mg/ Sodium Chloride 55 ml @ 110 mls/hr Q24H IVPB 09/15/17 16:00 09/20/17 15:59 09/18/17 15:56 Micafungin Sodium 100 mg/Sodium Chloride 110 ml @ 110 mls/hr Q24H IVPB 09/18/17 18:00 09/25/17 17:59 09/18/17 18:03 Mirtazapine (Remeron) 15 mg BEDTIME ORAL 09/05/17 21:00 10/04/17 20:59 09/18/17 21:37 Nitroglycerin (Ntg) 0.4 mg Q5M PRN SL Prn Chest Pain 09/05/17 18:30 09/28/17 14:44 Pantoprazole (Protonix) 40 mg Q12HR ORAL 09/18/17 14:00 10/18/17 13:59 09/19/17 08:37 Quetiapine Fumarate (SEROquel) 50 mg DAILY ORAL 09/17/17 09:00 10/17/17 08:59 09/19/17 08:37 Quetiapine Fumarate (SEROquel) 50 mg Q4H PRN ORAL agitation 09/10/17 14:00 10/10/17 13:59 09/18/17 01:47 Quetiapine Fumarate (SEROquel) 50 mg QLUNCH ORAL 09/17/17 11:30 10/17/17 11:29 09/17/17 12:10 Quetiapine Fumarate (SEROquel) 100 mg BEDTIME ORAL 09/16/17 21:00 10/16/17 20:59 09/18/17 21:37 Sevelamer Carbonate (Renvela) 1,600 mg THREE TIMES A DAY ORAL 09/18/17 09:00 10/18/17 08:59 09/19/17 08:37 Jean Cervantes M.D. Sep 19, 2017 09:37
--- NOTE | 2017-09-19 10:42 | General Progress Note ---
Assessment/Plan Problem List: (1) Rhabdomyolysis ICD Codes: M62.82 - Rhabdomyolysis SNOMED: 751087456 Qualifiers: Qualified Codes: T79.6XXA - Traumatic ischemia of muscle, initial encounter (2) Aspiration pneumonia ICD Codes: J69.0 - Pneumonitis due to inhalation of food and vomit SNOMED: 711817822 Qualifiers: Qualified Codes: J69.0 - Pneumonitis due to inhalation of food and vomit (3) Substance abuse ICD Codes: F19.10 - Other psychoactive substance abuse, uncomplicated SNOMED: 45709178 (4) Transaminitis ICD Codes: R74.0 - Nonspecific elevation of levels of transaminase and lactic acid dehydrogenase [LDH] SNOMED: 000544733, 222615742 Assessment/Plan Hep A immunity Hep C positive transaminitis >> downtrending, near normal levels cdiff negative stool culture >> gram negative bacillus elevated lipase >> now normal OB stool negative drop in Hgb today send for addition OB stool prn transfusions renal diet abx supportive care ppi fu labs, lipase, trend LFTs outpatient Hep C tx Subjective ROS Limited/Unobtainable: No Allergies: Coded Allergies: NO KNOWN ALLERGIES (Verified Allergy, Unknown, 09/02/17) Objective Last 24 Hour Vital Signs Date Time Temp Pulse Resp B/P (MAP) Pulse Ox O2 Delivery O2 Flow Rate FiO2 09/19/17 10:03 98.6 09/19/17 09:04 163/93 09/19/17 09:04 100.4 09/19/17 09:00 Room Air 09/19/17 08:00 100.7 84 21 163/93 (116) 95 100.7 09/19/17 04:00 98.4 89 19 126/88 (101) 97 98.4 09/19/17 02:20 144/90 09/19/17 00:00 99.7 90 19 124/79 (94) 96 99.7 09/18/17 21:52 100.6 09/18/17 21:00 Room Air 09/18/17 20:00 98.6 85 19 125/79 (94) 96 98.6 09/18/17 18:03 125/74 09/18/17 16:38 100.4 86 19 128/87 (101) 100.4 09/18/17 15:32 99.0 09/18/17 11:25 99.0 105 19 112/76 (88) 95 99.0 Intake and Output 09/18/17 09/19/17 19:00 07:00 Intake Total 900 ml 55 ml Output Total 300 ml 1000 ml Balance 600 ml -945 ml IV Total 55 ml Other 900 ml Output Urine Total 300 ml 1000 ml # Voids 8 # Bowel Movements 2 3 Laboratory Tests 09/18/17 17:20: White Blood Count 28.2*H, Red Blood Count 1.90L, Hemoglobin 6.2*L, Hematocrit 17.5L, Mean Corpuscular Volume 92, Mean Corpuscular Hemoglobin 32.6H, Mean Corpuscular Hemoglobin Concent 35.4, Red Cell Distribution Width 11.3L, Platelet Count 482H, Mean Platelet Volume 5.6L, Neutrophils (%) (Auto) , Lymphocytes (%) (Auto) , Monocytes (%) (Auto) , Eosinophils (%) (Auto) , Basophils (%) (Auto) , Differential Total Cells Counted 100, Neutrophils % ( Manual) 78H, Lymphocytes % (Manual) 11L, Monocytes % (Manual) 7, Eosinophils % ( Manual) 2, Basophils % (Manual) 0, Band Neutrophils 2, Platelet Estimate IncreasedH, Platelet Morphology Normal, Hypochromasia 1+, Anisocytosis 1+ 09/18/17 18:30: Stool Occult Blood Negative 09/19/17 05:55: White Blood Count 23.9*H, Red Blood Count 2.45L, Hemoglobin 7.9L, Hematocrit 22.4L, Mean Corpuscular Volume 92, Mean Corpuscular Hemoglobin 32.3H, Mean Corpuscular Hemoglobin Concent 35.3, Red Cell Distribution Width 11.8, Platelet Count 434, Mean Platelet Volume 5.9L, Neutrophils (%) (Auto) , Lymphocytes (%) ( Auto) , Monocytes (%) (Auto) , Eosinophils (%) (Auto) , Basophils (%) (Auto) , Differential Total Cells Counted 100, Neutrophils % (Manual) 84H, Lymphocytes % (Manual) 7L, Monocytes % (Manual) 7, Eosinophils % (Manual) 1, Basophils % ( Manual) 0, Band Neutrophils 1, Platelet Estimate IncreasedH, Platelet Morphology Normal, Hypochromasia 1+, Sodium Level 142, Potassium Level 3.2L, Chloride Level 102, Carbon Dioxide Level 28, Anion Gap 13, Blood Urea Nitrogen 72H, Creatinine 9.6H, Estimat Glomerular Filtration Rate 6.1, Glucose Level 106 , Uric Acid 9.0H, Calcium Level 8.2L, Phosphorus Level 7.8H, Magnesium Level 2.4 , Total Bilirubin 0.8, Aspartate Amino Transf (AST/SGOT) 27, Alanine Aminotransferase (ALT/SGPT) 29, Alkaline Phosphatase 67, C-Reactive Protein, Quantitative 30.3H, Pro-B-Type Natriuretic Peptide 9332H, Total Protein 6.1L, Albumin 1.8L, Globulin 4.3, Albumin/Globulin Ratio 0.4L Height (Feet): 5 Height (Inches): 5.00 Weight (Pounds): 202 General Appearance: no apparent distress EENT: normal ENT inspection Neck: supple Cardiovascular: normal rate Respiratory/Chest: decreased breath sounds Abdomen: non tender, soft, hypoactive bowel sounds Extremities: non-tender Efrain Chavez MD Sep 19, 2017 10:42
--- NOTE | 2017-09-19 10:53 | Nephrology Progress Note ---
Assessment/Plan Assessment 1. Acute rhabdomyolysis.(anuric ) 2. Hypocalcemia. 3. Hyperkalemia. 4. Lactic acidosis. 5. Shock liver. 6. History of multiple drug use. Plan dialysis as schedule monitoring renal function monitoring out put Subjective Subjective continue to have very low urine out put alert and awake Objective Objective Last 24 Hour Vital Signs Date Time Temp Pulse Resp B/P (MAP) Pulse Ox O2 Delivery O2 Flow Rate FiO2 09/19/17 10:03 98.6 09/19/17 09:04 163/93 09/19/17 09:04 100.4 09/19/17 09:00 Room Air 09/19/17 08:00 100.7 84 21 163/93 (116) 95 100.7 09/19/17 04:00 98.4 89 19 126/88 (101) 97 98.4 09/19/17 02:20 144/90 09/19/17 00:00 99.7 90 19 124/79 (94) 96 99.7 09/18/17 21:52 100.6 09/18/17 21:00 Room Air 09/18/17 20:00 98.6 85 19 125/79 (94) 96 98.6 09/18/17 18:03 125/74 09/18/17 16:38 100.4 86 19 128/87 (101) 100.4 09/18/17 15:32 99.0 09/18/17 11:25 99.0 105 19 112/76 (88) 95 99.0 Intake and Output 09/18/17 09/19/17 19:00 07:00 Intake Total 900 ml 55 ml Output Total 300 ml 1000 ml Balance 600 ml -945 ml IV Total 55 ml Other 900 ml Output Urine Total 300 ml 1000 ml # Voids 8 # Bowel Movements 2 3 Laboratory Tests 09/18/17 17:20: White Blood Count 28.2*H, Red Blood Count 1.90L, Hemoglobin 6.2*L, Hematocrit 17.5L, Mean Corpuscular Volume 92, Mean Corpuscular Hemoglobin 32.6H, Mean Corpuscular Hemoglobin Concent 35.4, Red Cell Distribution Width 11.3L, Platelet Count 482H, Mean Platelet Volume 5.6L, Neutrophils (%) (Auto) , Lymphocytes (%) (Auto) , Monocytes (%) (Auto) , Eosinophils (%) (Auto) , Basophils (%) (Auto) , Differential Total Cells Counted 100, Neutrophils % ( Manual) 78H, Lymphocytes % (Manual) 11L, Monocytes % (Manual) 7, Eosinophils % ( Manual) 2, Basophils % (Manual) 0, Band Neutrophils 2, Platelet Estimate IncreasedH, Platelet Morphology Normal, Hypochromasia 1+, Anisocytosis 1+ 09/18/17 18:30: Stool Occult Blood Negative 09/19/17 05:55: White Blood Count 23.9*H, Red Blood Count 2.45L, Hemoglobin 7.9L, Hematocrit 22.4L, Mean Corpuscular Volume 92, Mean Corpuscular Hemoglobin 32.3H, Mean Corpuscular Hemoglobin Concent 35.3, Red Cell Distribution Width 11.8, Platelet Count 434, Mean Platelet Volume 5.9L, Neutrophils (%) (Auto) , Lymphocytes (%) ( Auto) , Monocytes (%) (Auto) , Eosinophils (%) (Auto) , Basophils (%) (Auto) , Differential Total Cells Counted 100, Neutrophils % (Manual) 84H, Lymphocytes % (Manual) 7L, Monocytes % (Manual) 7, Eosinophils % (Manual) 1, Basophils % ( Manual) 0, Band Neutrophils 1, Platelet Estimate IncreasedH, Platelet Morphology Normal, Hypochromasia 1+, Sodium Level 142, Potassium Level 3.2L, Chloride Level 102, Carbon Dioxide Level 28, Anion Gap 13, Blood Urea Nitrogen 72H, Creatinine 9.6H, Estimat Glomerular Filtration Rate 6.1, Glucose Level 106 , Uric Acid 9.0H, Calcium Level 8.2L, Phosphorus Level 7.8H, Magnesium Level 2.4 , Total Bilirubin 0.8, Aspartate Amino Transf (AST/SGOT) 27, Alanine Aminotransferase (ALT/SGPT) 29, Alkaline Phosphatase 67, C-Reactive Protein, Quantitative 30.3H, Pro-B-Type Natriuretic Peptide 9332H, Total Protein 6.1L, Albumin 1.8L, Globulin 4.3, Albumin/Globulin Ratio 0.4L Height (Feet): 5 Height (Inches): 5.00 Weight (Pounds): 202 Objective HEAD AND NECK: No JVP. No LAD. G-tube is in place. Head is atraumatic and normocephalic. LUNGS: He has decreased breathing sounds on the both sides. CARDIAC: Regular rate and rhythm. S1 and S2. No murmur. No rub. ABDOMEN: Soft. Bowel sounds positive. EXTREMITIES: No edema. No clubbing. No cyanosis. Aixa Veloz MD Sep 19, 2017 10:53
--- NOTE | 2017-09-19 11:50 | Neurology Progress Note ---
Interim History Interim History Interim History Mr. Stover feels better today. The mind is clearer. He feels less confused. He feels more energetic. He is less forgetful. He is still gets confused but is better oriented. His appetite is better. He is generally stronger. He stood up with the PT and took a few steps yesterday but has not been out of bed today. He denies any new neurologic symptoms. He specifically denies any weakness on one side or the other, numbness on one side or the other, problems with speech, problems with language, or problems with vision. Review of Systems Neuro Review of Systems Benign. Objective Physical Exam Last Vital Signs Date Time Temp Pulse Resp B/P (MAP) Pulse Ox O2 Delivery O2 Flow Rate FiO2 09/19/17 10:03 98.6 09/19/17 09:04 163/93 09/19/17 09:00 Room Air 09/19/17 08:00 84 21 95 09/14/17 20:33 4.0 21 Laboratory Tests Test 09/18/17 17:20 09/18/17 18:30 09/19/17 05:55 White Blood Count 28.2 K/UL (4.8-10.8) *H 23.9 K/UL (4.8-10.8) *H Red Blood Count 1.90 M/UL (4.70-6.10) L 2.45 M/UL (4.70-6.10) L Hemoglobin 6.2 G/DL (14.2-18.0) *L 7.9 G/DL (14.2-18.0) L Hematocrit 17.5 % (42.0-52.0) L 22.4 % (42.0-52.0) L Mean Corpuscular Volume 92 FL (80-99) 92 FL (80-99) Mean Corpuscular Hemoglobin 32.6 PG (27.0-31.0) H 32.3 PG (27.0-31.0) H Mean Corpuscular Hemoglobin Concent 35.4 G/DL (32.0-36.0) 35.3 G/DL (32.0-36.0) Red Cell Distribution Width 11.3 % (11.6-14.8) L 11.8 % (11.6-14.8) Platelet Count 482 K/UL (150-450) H 434 K/UL (150-450) Mean Platelet Volume 5.6 FL (6.5-10.1) L 5.9 FL (6.5-10.1) L Neutrophils (%) (Auto) % (45.0-75.0) % (45.0-75.0) Lymphocytes (%) (Auto) % (20.0-45.0) % (20.0-45.0) Monocytes (%) (Auto) % (1.0-10.0) % (1.0-10.0) Eosinophils (%) (Auto) % (0.0-3.0) % (0.0-3.0) Basophils (%) (Auto) % (0.0-2.0) % (0.0-2.0) Differential Total Cells Counted 100 100 Neutrophils % (Manual) 78 % (45-75) H 84 % (45-75) H Lymphocytes % (Manual) 11 % (20-45) L 7 % (20-45) L Monocytes % (Manual) 7 % (1-10) 7 % (1-10) Eosinophils % (Manual) 2 % (0-3) 1 % (0-3) Basophils % (Manual) 0 % (0-2) 0 % (0-2) Band Neutrophils 2 % (0-8) 1 % (0-8) Platelet Estimate Increased H Increased H Platelet Morphology Normal Normal Hypochromasia 1+ 1+ Anisocytosis 1+ Stool Occult Blood Negative (NEGATIVE) Sodium Level 142 MMOL/L (136-145) Potassium Level 3.2 MMOL/L (3.5-5.1) L Chloride Level 102 MMOL/L (98-107) Carbon Dioxide Level 28 MMOL/L (21-32) Anion Gap 13 mmol/L (5-15) Blood Urea Nitrogen 72 mg/dL (7-18) H Creatinine 9.6 MG/DL (0.55-1.30) H Estimat Glomerular Filtration Rate 6.1 mL/min (>60) Glucose Level 106 MG/DL (74-106) Uric Acid 9.0 MG/DL (2.6-7.2) H Calcium Level 8.2 MG/DL (8.5-10.1) L Phosphorus Level 7.8 MG/DL (2.5-4.9) H Magnesium Level 2.4 MG/DL (1.8-2.4) Total Bilirubin 0.8 MG/DL (0.2-1.0) Aspartate Amino Transf (AST/SGOT) 27 U/L (15-37) Alanine Aminotransferase (ALT/SGPT) 29 U/L (12-78) Alkaline Phosphatase 67 U/L (46-116) C-Reactive Protein, Quantitative 30.3 mg/dL (0.00-0.90) H Pro-B-Type Natriuretic Peptide 9332 pg/mL (0-125) H Total Protein 6.1 G/DL (6.4-8.2) L Albumin 1.8 G/DL (3.4-5.0) L Globulin 4.3 g/dL Albumin/Globulin Ratio 0.4 (1.0-2.7) L Neurologic Exam Objective PHYSICAL EXAMINATION: GENERAL: He is a well-developed, well-nourished, gentleman, lying in bed. HEAD: Normocephalic and atraumatic. EENT: Examination benign. NECK: No neck rigidity was observed. NEUROLOGIC EXAMINATION: MENTAL STATUS EXAMINATION: He was awake and alert. He was oriented to [facility], and [facility] and September 19, 2017. He was able to recall 3/3 words immediately, and could remember them in 1 and 3 minutes. He was able to remember presidents Trump through [employer] with hints. His mathematical skills were minimally impaired. His visuospatial function was good. SPEECH: He had no dysarthria. LANGUAGE: He had a moderate anomia. CRANIAL NERVE EXAMINATION: II: The visual dinh were intact on confrontation testing. III, IV & : The external ocular movements were present. The pupils were 3 mm in diameter and reactive sluggishly to light. V: He had normal facial sensations and the temporales, masseters and pterygoids functioned well. VII: He had normal facial expressions and no facial asymmetry. VIII: He was able to hear well and had no nystagmus. IX: The palate moved symmetrically on phonation. X: He had no hoarseness of voice. XI: The sternocleidomastoids and trapezii functioned well. XII: The tongue was in the midline. MOTOR SYSTEM: The tone was normal in all four extremities. Examination of muscle mass revealed no focal wasting. Examination of power revealed G 5/5 power in all muscle groups except for G 0/5 in the right ankle dorsiflexors, toe extensors, ankle plantar flexors and toe flexors, G 5-/5 in the left ankle dorsiflexors and toe extensors, and G 4/5 in the iliopsoas muscle bilaterally. SENSORY EXAMINATION: He had altered sensations in the right peroneal distribution. REFLEXES: Trace+ and bilaterally symmetrical at the biceps, triceps, brachioradialis, and knees, 0 at both ankles. The plantar responses were flexor bilaterally. COORDINATION: He performed well on finger to nose testing. STANCE & GAIT: Could not be tested. Impression/Recommendations Diagnostic Impression 1. Mr. Enoch Stover is a 37-year-old, gentleman, of unknown handedness, who was found unconscious in a hotel room on 08/29/2017 after he had used multiple drugs. He was found to be possibly febrile, hypoglycemic, and breathing rapidly. Since then, he has been hospitalized and treated for sepsis. 2. He feels better today. The mind is clearer. He feels less confused. He feels more energetic. He is less forgetful. He is still gets confused but is better oriented. His appetite is better. He is generally stronger. He stood up with the PT and took a few steps yesterday but has not been out of bed today. He denies any new neurologic symptoms. 3. On neurological examination, at this time, he is awake and alert. He is fully oriented. His problems with recent and remote memory are significantly better. His speech is normal. He has a moderate anomia. His cranial nerves are functioning normally. His motor function is relatively good he however has mild proximal lower extremity weakness, and mild distal left lower extremity weakness with no movement in the right ankle and toes. His sensations are altered in the right peroneal distribution. His deep tendon reflexes are diminished but his plantar responses are flexor. He also does not demonstrate any definite focal or lateralizing neurological findings. 4. The CT scan of the brain performed on 08/29/2017 and repeated on 09/04/17 is benign for acute pathology. 5. Laboratory data obtained thus far revealed, on admission, his hemoglobin was elevated to 18.4, his WBC was normal at 8,500, but since then his WBCs have peaked to 17,200. His chemistry panel on admission revealed BUN elevated to 31 , creatinine elevated to 3.6, lactic acid elevated to 5.5, bilirubin elevated at 1.2, AST elevated at 478, ALT elevated to 159, CK elevated to greater than 10 ,000, troponin elevated at 1.01, BNP elevated to 2143. His urine toxicology screen was positive for opiates, amphetamines, cocaine, and marijuana. His INR was elevated at 1.2. His TSH is elevated at 4.72. The T3 is low but the T4 is normal. 6. The patient's history, neurological examination, laboratory data, and imaging studies are most compatible with an altered mental state due to a toxic metabolic encephalopathy. 7. The most likely etiology for the encephalopathy is the sepsis, possibly a period of hypoglycemia and ongoing multiple metabolic imbalances and the toxic imbalances. In addition the use of mind-altering drugs could have also been contributing. 8. His encephalopathy is still waxing and waning but is better today. 9. He has also developed bilateral mild proximal lower extremity weakness, and in addition severe right distal lower extremity weakness with severe right peroneal and tibial nerve dysfunction. His sensations are also altered in the right peroneal distribution. Recommendations 1. Continue present management. 2. Continue aggressive treatment of the patient's infectious process. 3. Aggressive management of toxic/metabolic imbalances. 4. AFO for right foot drop. 5. PT/OT. 6. Observe closely. Chris Gomez M.D., M.S.P.H. CHRIS GOMEZ Sep 19, 2017 11:50
--- NOTE | 2017-09-19 12:18 | Diagnostic Imaging Report ---
Indication: Reason For Exam: ABSCESS Technique: Spiral acquisitions obtained through the abdomen and pelvis. No oral contrast utilized, per emergency room physician request No IV contrast utilized, per referring physician request.. Multiplanar reconstructions were generated. Total dose length product 1174.88 mGycm. CTDIvol(s) 14.36,19.28 mGy. Dose reduction achieved using automated exposure control Comparison: 09/05/2017 Findings: Previously described low-attenuation within the bilateral buttock musculature is less striking than on the previous exam. There is some higher attenuation within the right gluteal musculature, predominantly within the fat between the gluteus montez and gluteus medius but also within the body of the gluteus montez, likely a small hematoma. This continues caudad beyond the imaging volume. This area measures approximately 6 cm transverse by 3.5 cm AP by at least 11 cm craniocaudad, extending beyond the imaging volume as mentioned before. Again demonstrated is diffuse and extensive edema of the subcutaneous fat and intra-abdominal and retroperitoneal fat. There is increasing bilateral pleural fluid, and increasing and progressive bilateral basilar pulmonary parenchymal atelectasis. There is also diffuse mild groundglass opacity throughout the lung bases which is a new finding. The tip of the patient's dialysis catheter is seen within the right atrium. The lack of IV contrast limits assessment of the solid organs. The gallbladder contains some higher attenuation material dependently, not evident previously and possibly representing sludge. There is a 12 mm focus of low attenuation within the dome of the right hepatic lobe which may have been excluded from the prior imaging volume. This is not clearly cystic. No other focal hepatic abnormality demonstrated. The bile ducts, pancreas, spleen, adrenals, kidneys are unremarkable. The bladder is massively distended. There is moderate amount retained stool within the distal colon. However, contrast is seen throughout the entirety of the small bowel and most of the way through the colon. There are scattered colonic diverticula. No evidence of diverticulitis. The appendix is probably normal. No small bowel distention. No free intraperitoneal gas or fluid is evident. The distal esophagus, stomach, duodenum are unremarkable. The bones are unremarkable except for degenerative spondylosis changes at the lumbosacral junction.. Impression: Interim development of what is probably a right buttock hematoma, measuring 6 x 3.5 by at least 11 cm Previously demonstrated low attenuation of the bilateral gluteal musculature is less striking currently. This is probably due to the lack of IV contrast administration on the current exam Worsening anasarca, with increased edema of the subcutaneous and abdominal fat and increasing bilateral pleural effusions Mild pulmonary groundglass opacity, likely represents pulmonary edema 12 mm focus of low attenuation within the dome of the right hepatic lobe. Not evident previously although likely excluded from the prior imaging volume. This is not clearly cystic, could represent a complex cyst, early hepatic abscess, less likely neoplasm given patient's age. Consider further evaluation with sonography to see if this is sonographically visible Distended bladder Probable sludge within the gallbladder Diverticulosis. No evidence of diverticulitis Other findings as noted, including degenerative spondylosis, dialysis catheter The CT scanner at [facility] is accredited by the [employer] and the scans are performed using protocols designed to limit radiation exposure to as low as reasonably achievable to attain images of sufficient resolution adequate for diagnostic evaluation.
--- NOTE | 2017-09-19 13:42 | General Progress Note ---
Assessment/Plan Problem List: (1) Substance abuse ICD Codes: F19.10 - Other psychoactive substance abuse, uncomplicated SNOMED: 08503277 (2) Respiratory failure ICD Codes: J96.90 - Respiratory failure, unspecified, unspecified whether with hypoxia or hypercapnia SNOMED: 762303120 Qualifiers: Qualified Codes: J96.01 - Acute respiratory failure with hypoxia (3) Rhabdomyolysis ICD Codes: M62.82 - Rhabdomyolysis SNOMED: 029783399 Qualifiers: Qualified Codes: T79.6XXA - Traumatic ischemia of muscle, initial encounter (4) NSTEMI (non-ST elevated myocardial infarction) ICD Codes: I21.4 - Non-ST elevation (NSTEMI) myocardial infarction SNOMED: 759776862 (5) LUCRECIA (acute kidney injury) ICD Codes: N17.9 - Acute kidney failure, unspecified SNOMED: 33200465 Status: unchanged Assessment/Plan ot pt diet abx neuro psyc eval cbc bmp am Subjective Constitutional: Reports: weakness Allergies: Coded Allergies: NO KNOWN ALLERGIES (Verified Allergy, Unknown, 09/02/17) All Systems: reviewed and negative except above Subjective calm in bed sleepy Objective Last 24 Hour Vital Signs Date Time Temp Pulse Resp B/P (MAP) Pulse Ox O2 Delivery O2 Flow Rate FiO2 09/19/17 12:00 100.2 72 22 129/78 (95) 97 100.2 09/19/17 10:03 98.6 09/19/17 09:04 163/93 09/19/17 09:04 100.4 09/19/17 09:00 Room Air 09/19/17 08:00 100.7 84 21 163/93 (116) 95 100.7 09/19/17 04:00 98.4 89 19 126/88 (101) 97 98.4 09/19/17 02:20 144/90 09/19/17 00:00 99.7 90 19 124/79 (94) 96 99.7 09/18/17 21:52 100.6 09/18/17 21:00 Room Air 09/18/17 20:00 98.6 85 19 125/79 (94) 96 98.6 09/18/17 18:03 125/74 09/18/17 16:38 100.4 86 19 128/87 (101) 100.4 09/18/17 15:32 99.0 Intake and Output 09/18/17 09/19/17 19:00 07:00 Intake Total 900 ml 55 ml Output Total 300 ml 1000 ml Balance 600 ml -945 ml IV Total 55 ml Other 900 ml Output Urine Total 300 ml 1000 ml # Voids 8 # Bowel Movements 2 3 Laboratory Tests 09/18/17 17:20: White Blood Count 28.2*H, Red Blood Count 1.90L, Hemoglobin 6.2*L, Hematocrit 17.5L, Mean Corpuscular Volume 92, Mean Corpuscular Hemoglobin 32.6H, Mean Corpuscular Hemoglobin Concent 35.4, Red Cell Distribution Width 11.3L, Platelet Count 482H, Mean Platelet Volume 5.6L, Neutrophils (%) (Auto) , Lymphocytes (%) (Auto) , Monocytes (%) (Auto) , Eosinophils (%) (Auto) , Basophils (%) (Auto) , Differential Total Cells Counted 100, Neutrophils % ( Manual) 78H, Lymphocytes % (Manual) 11L, Monocytes % (Manual) 7, Eosinophils % ( Manual) 2, Basophils % (Manual) 0, Band Neutrophils 2, Platelet Estimate IncreasedH, Platelet Morphology Normal, Hypochromasia 1+, Anisocytosis 1+ 09/18/17 18:30: Stool Occult Blood Negative 09/19/17 05:55: White Blood Count 23.9*H, Red Blood Count 2.45L, Hemoglobin 7.9L, Hematocrit 22.4L, Mean Corpuscular Volume 92, Mean Corpuscular Hemoglobin 32.3H, Mean Corpuscular Hemoglobin Concent 35.3, Red Cell Distribution Width 11.8, Platelet Count 434, Mean Platelet Volume 5.9L, Neutrophils (%) (Auto) , Lymphocytes (%) ( Auto) , Monocytes (%) (Auto) , Eosinophils (%) (Auto) , Basophils (%) (Auto) , Differential Total Cells Counted 100, Neutrophils % (Manual) 84H, Lymphocytes % (Manual) 7L, Monocytes % (Manual) 7, Eosinophils % (Manual) 1, Basophils % ( Manual) 0, Band Neutrophils 1, Platelet Estimate IncreasedH, Platelet Morphology Normal, Hypochromasia 1+, Sodium Level 142, Potassium Level 3.2L, Chloride Level 102, Carbon Dioxide Level 28, Anion Gap 13, Blood Urea Nitrogen 72H, Creatinine 9.6H, Estimat Glomerular Filtration Rate 6.1, Glucose Level 106 , Uric Acid 9.0H, Calcium Level 8.2L, Phosphorus Level 7.8H, Magnesium Level 2.4 , Total Bilirubin 0.8, Aspartate Amino Transf (AST/SGOT) 27, Alanine Aminotransferase (ALT/SGPT) 29, Alkaline Phosphatase 67, C-Reactive Protein, Quantitative 30.3H, Pro-B-Type Natriuretic Peptide 9332H, Total Protein 6.1L, Albumin 1.8L, Globulin 4.3, Albumin/Globulin Ratio 0.4L Height (Feet): 5 Height (Inches): 5.00 Weight (Pounds): 202 General Appearance: lethargic EENT: normal ENT inspection Neck: normal alignment Cardiovascular: normal peripheral pulses, normal rate, regular rhythm Respiratory/Chest: chest wall non-tender, lungs clear, normal breath sounds Abdomen: normal bowel sounds, non tender, soft Extremities: normal inspection Edema: no edema noted Arm (L), no edema noted Arm (R), no edema noted Leg (L), no edema noted Leg (R), no edema noted Pedal (L), no edema noted Pedal (R), no edema noted Generalized Neurologic: motor weakness Skin: normal pigmentation, warm/dry Reid Anaya DO Sep 19, 2017 13:42
--- NOTE | 2017-09-19 15:33 | General Surgery Progress Note ---
General Surgery-Progress Note Subjective Symptoms: improved Additional Comments looks better today. ambulatory. holds conversation. Objective Last 24 Hour Vital Signs Date Time Temp Pulse Resp B/P (MAP) Pulse Ox O2 Delivery O2 Flow Rate FiO2 09/19/17 12:00 100.2 72 22 129/78 (95) 97 100.2 09/19/17 10:03 98.6 09/19/17 09:04 163/93 09/19/17 09:04 100.4 09/19/17 09:00 Room Air 09/19/17 08:00 100.7 84 21 163/93 (116) 95 100.7 09/19/17 04:00 98.4 89 19 126/88 (101) 97 98.4 09/19/17 02:20 144/90 09/19/17 00:00 99.7 90 19 124/79 (94) 96 99.7 09/18/17 21:52 100.6 09/18/17 21:00 Room Air 09/18/17 20:00 98.6 85 19 125/79 (94) 96 98.6 09/18/17 18:03 125/74 09/18/17 16:38 100.4 86 19 128/87 (101) 100.4 09/18/17 15:32 99.0 I&O Intake and Output 09/18/17 09/19/17 19:00 07:00 Intake Total 900 ml 55 ml Output Total 300 ml 1000 ml Balance 600 ml -945 ml IV Total 55 ml Other 900 ml Output Urine Total 300 ml 1000 ml # Voids 8 # Bowel Movements 2 3 Drains: none Cardiovascular: RSR Respiratory: clear Abdomen: soft, flat Extremities: no cyanosis Laboratory Tests Test 09/18/17 17:20 09/18/17 18:30 09/19/17 05:55 White Blood Count 28.2 K/UL (4.8-10.8) *H 23.9 K/UL (4.8-10.8) *H Red Blood Count 1.90 M/UL (4.70-6.10) L 2.45 M/UL (4.70-6.10) L Hemoglobin 6.2 G/DL (14.2-18.0) *L 7.9 G/DL (14.2-18.0) L Hematocrit 17.5 % (42.0-52.0) L 22.4 % (42.0-52.0) L Mean Corpuscular Volume 92 FL (80-99) 92 FL (80-99) Mean Corpuscular Hemoglobin 32.6 PG (27.0-31.0) H 32.3 PG (27.0-31.0) H Mean Corpuscular Hemoglobin Concent 35.4 G/DL (32.0-36.0) 35.3 G/DL (32.0-36.0) Red Cell Distribution Width 11.3 % (11.6-14.8) L 11.8 % (11.6-14.8) Platelet Count 482 K/UL (150-450) H 434 K/UL (150-450) Mean Platelet Volume 5.6 FL (6.5-10.1) L 5.9 FL (6.5-10.1) L Neutrophils (%) (Auto) % (45.0-75.0) % (45.0-75.0) Lymphocytes (%) (Auto) % (20.0-45.0) % (20.0-45.0) Monocytes (%) (Auto) % (1.0-10.0) % (1.0-10.0) Eosinophils (%) (Auto) % (0.0-3.0) % (0.0-3.0) Basophils (%) (Auto) % (0.0-2.0) % (0.0-2.0) Differential Total Cells Counted 100 100 Neutrophils % (Manual) 78 % (45-75) H 84 % (45-75) H Lymphocytes % (Manual) 11 % (20-45) L 7 % (20-45) L Monocytes % (Manual) 7 % (1-10) 7 % (1-10) Eosinophils % (Manual) 2 % (0-3) 1 % (0-3) Basophils % (Manual) 0 % (0-2) 0 % (0-2) Band Neutrophils 2 % (0-8) 1 % (0-8) Platelet Estimate Increased H Increased H Platelet Morphology Normal Normal Hypochromasia 1+ 1+ Anisocytosis 1+ Stool Occult Blood Negative (NEGATIVE) Sodium Level 142 MMOL/L (136-145) Potassium Level 3.2 MMOL/L (3.5-5.1) L Chloride Level 102 MMOL/L (98-107) Carbon Dioxide Level 28 MMOL/L (21-32) Anion Gap 13 mmol/L (5-15) Blood Urea Nitrogen 72 mg/dL (7-18) H Creatinine 9.6 MG/DL (0.55-1.30) H Estimat Glomerular Filtration Rate 6.1 mL/min (>60) Glucose Level 106 MG/DL (74-106) Uric Acid 9.0 MG/DL (2.6-7.2) H Calcium Level 8.2 MG/DL (8.5-10.1) L Phosphorus Level 7.8 MG/DL (2.5-4.9) H Magnesium Level 2.4 MG/DL (1.8-2.4) Total Bilirubin 0.8 MG/DL (0.2-1.0) Aspartate Amino Transf (AST/SGOT) 27 U/L (15-37) Alanine Aminotransferase (ALT/SGPT) 29 U/L (12-78) Alkaline Phosphatase 67 U/L (46-116) C-Reactive Protein, Quantitative 30.3 mg/dL (0.00-0.90) H Pro-B-Type Natriuretic Peptide 9332 pg/mL (0-125) H Total Protein 6.1 G/DL (6.4-8.2) L Albumin 1.8 G/DL (3.4-5.0) L Globulin 4.3 g/dL Albumin/Globulin Ratio 0.4 (1.0-2.7) L Plan Problems: (1) Severe sepsis Assessment & Plan: leukocytosis improving CT reviewed. hematoma in buttock. fluid collection simple. anasarca. no etiology of wbc identified. blood cultures negative. urine culture noted. no acute surgical intervention necessary at this time. thank Vincent Velasquez Sep 19, 2017 15:33
[2017-09-19] MEDS: Meropenem 500mg/NS 55ml IVPB SCH ×2 (16:02)
[2017-09-19] MEDS: Micafungin 100 MG in NS 110 ML IVPB SCH (18:36)
[2017-09-19] MEDS: Dyna-Hex 2% Top Sol 2oz TOPIC SCH (21:07)
[2017-09-20 04:00] VITALS: BP 157/98
[2017-09-20] MEDS: Aluminum Hydroxide Gel Susp 15ml ORAL SCH ×3 (06:04→22:20)
[2017-09-20 06:22] LABS: HEMATOCRIT 24.1 % (42.0-52.0); HEMOGLOBIN 8.2 G/DL (14.2-18.0); MEAN CORPUSCULAR VOLUME 92 FL (80-99); PLATELET COUNT 458 K/UL (150-450); RED BLOOD COUNT 2.62 M/UL (4.70-6.10); WHITE BLOOD COUNT 18.5 K/UL (4.8-10.8)
[2017-09-20 06:30] LABS: ANION GAP 8 mmol/L (5-15); BLOOD UREA NITROGEN 58 mg/dL (7-18); CARBON DIOXIDE 31 MMOL/L (21-32); CHLORIDE 101 MMOL/L (98-107); POTASSIUM 2.9 MMOL/L (3.5-5.1); SODIUM 140 MMOL/L (136-145)
--- NOTE | 2017-09-20 07:53 | General Progress Note ---
Assessment/Plan Status: unchanged Assessment/Plan # Anemia of chronic disease. --> Continue to closely monitor for stability. --> Obtain further workup with ferritin and tibc --> Hgb goal above >7 --> 09/15 1 unit PRBC, 09/19: 1 unit, --> 09/19: Hgb at 7.9 # Leukocytosis. due to infection, however no source is found --> Closely monitor for improvement. --> 09/19: WBC 23.9 trending upwards. --> Currently on IV abx. --> 09/19: Currently febrile at 99.9 # Thrombocytosis. Likely reactive process to anemia --> Closely monitor PLT count for improvement. --> should improve with improvement in anemia as well --> 09/19: PLT count of 434, wnl # Transaminitis. Trending downwards. The time the note was entered does not necessarily correspond to the time the patient was seen. Subjective Date patient seen: Sep 19, 2017 ROS Limited/Unobtainable: Yes Constitutional: Reports: fever Hematologic/Lymphatic: Reports: anemia Allergies: Coded Allergies: NO KNOWN ALLERGIES (Verified Allergy, Unknown, 09/02/17) All Systems: reviewed and negative except above Subjective Pt S/P 1 unit PRBC, tolerated well. Hgb improved to 7.9 CT today shows: worsening anasarca and mild pulmonary groundglass opacity, likely represents pulmonary edema. Objective Last 24 Hour Vital Signs Date Time Temp Pulse Resp B/P (MAP) Pulse Ox O2 Delivery O2 Flow Rate FiO2 09/20/17 06:05 98.2 98.2 09/20/17 04:00 99.1 88 18 157/98 (117) 95 99.1 09/20/17 02:53 143/87 09/19/17 23:45 99.7 76 16 143/87 (105) 99.7 09/19/17 23:45 Room Air 09/19/17 21:00 Room Air 09/19/17 20:00 100.0 84 94/59 (71) 100.0 09/19/17 20:00 Room Air 09/19/17 20:00 100.9 84 16 94/59 (71) 100.9 09/19/17 18:37 138/84 09/19/17 15:52 100.1 76 21 138/84 (102) 99 100.1 09/19/17 12:00 100.2 72 22 129/78 (95) 97 100.2 09/19/17 10:03 98.6 09/19/17 09:04 163/93 09/19/17 09:04 100.4 09/19/17 09:00 Room Air 09/19/17 08:00 100.7 84 21 163/93 (116) 95 100.7 Intake and Output 09/19/17 09/20/17 19:00 07:00 Intake Total 535 ml 110 ml Output Total 3150 ml Balance 535 ml -3040 ml Intake Oral 480 ml IV Total 55 ml 110 ml Output Urine Total 1150 ml Hemodialysis UF 2000 ml # Bowel Movements 3 2 Laboratory Tests 09/20/17 05:10: White Blood Count 18.5H, Red Blood Count 2.62L, Hemoglobin 8.2L, Hematocrit 24.1L, Mean Corpuscular Volume 92, Mean Corpuscular Hemoglobin 31.4H, Mean Corpuscular Hemoglobin Concent 34.1, Red Cell Distribution Width 12.0, Platelet Count 458H, Mean Platelet Volume 6.0L, Neutrophils (%) (Auto) , Lymphocytes (%) (Auto) , Monocytes (%) (Auto) , Eosinophils (%) (Auto) , Basophils (%) (Auto) , Neutrophils % (Manual) [Pending], Lymphocytes % (Manual) [Pending], Platelet Estimate [Pending], Platelet Morphology [Pending], Sodium Level 140, Potassium Level 2.9L, Chloride Level 101, Carbon Dioxide Level 31, Anion Gap 8, Blood Urea Nitrogen 58H, Creatinine 7.0H, Estimat Glomerular Filtration Rate 8.8, Glucose Level 104, Calcium Level 8.0L Height (Feet): 5 Height (Inches): 5.00 Weight (Pounds): 202 General Appearance: no apparent distress EENT: PERRL/EOMI Neck: normal alignment Cardiovascular: normal peripheral pulses Respiratory/Chest: no respiratory distress Abdomen: soft Diogenes Flores MD Sep 20, 2017 07:53
[2017-09-20 08:00] VITALS: BP 141/55
--- NOTE | 2017-09-20 09:08 | Infectious Diseases Prog Note ---
Assessment/Plan Assessment/Plan Aspiration PNA -CXR 09/04 : Interim development of hazy interstitial and airspace disease in the right lung. This may to some extent be an artifact of less optimal inspiration, however. Interim extubation -sp cx normal ann; repeat sp cx MSSA -legionella ag urine neg Sp sepsis - Leukocytosis - Improving - No source found - Pancreatitis ? -u/a wbc 5-10, nit neg, leuk +1; cx neg -Bcx NTD (09/05 abd 09/07) -2d Echo (limited but no vegetations seen) - No Veg on KATELYN 09/10/17 - Tagged WBCs no focal uptake - MRI pelvis 09/11/17 : Diffuse symmetric edema of the bilateral buttock musculature , ? Myositis Discrete 3 x 3 x 7.3 cm fluid collection in the lateral left buttock musculature 09/13 SP No purulent material aspirated. Only small amount of blood aspirated Cx : Negative Blood Cx 09/18/17 - NGTD Urine Cx 09/18/17 - Low counts Fever: soruce ? Rhabdo vs pancreatitis - CT scan 09/19/17 - Interim development of what is probably a right buttock hematoma, measuring 6 x 3.5 by at least 11 cm, Worsening anasarca, Mild pulmonary groundglass opacity, likely represents pulmonary edema, 12 mm focus of low attenuation within the dome of the right hepatic lobe. Complex cyst , early hepatic abscess, less likely neoplasm given patient's age. Consider further evaluation with sonography to see if this is sonographically visible Diverticulosis. No evidence of diverticulitis -Cdiff neg -v/duplex no DVT -HIV ab sc and VL neg, RPR/FTA, GC/CL neg Hep C +; VL pending -ABD US: Gallbladder sludge. Negative for gallstones or dilated ducts. Equivocal increased hepatic echogenicity, if real could indicate hepatocellular disease such as fatty change. Borderline hepatomegaly. Mildly increased renal echogenicity, could indicate medical renal disease. Correlate with renal function tests. Left pleural effusion -Hep A and B immune Drug overdose -UDS + opiates, amphetamines, THC, cocaine -+empty heroin needles (found on hotel room) Multiorgan failure -LUCRECIA, - on HD -Transaminitis, (shock liver); improving -VDRF (airway protection)- extubaetd 09/03 Lactic acidosis; resolved Rhabdomyolisis; improving Pancreatitis- drug induced -neg alcohol levels Encephalopathy - improved -CT head 09/04: Unusual scalp contusion, new since prior study 08/29/2017. No evidence of underlying calvarial trauma. Negative for acute intracranial bleed or mass effect Plan: - Leukocytosis improving - Continue to monitor - F/U Cultures - Contuinue IV Dapto d# / ( may stop Dapto if CK worsen or more than 10x Nl ) and Merrem d# / ( empirically ) - Continue Micafungin #2/7 - 09/14/17 - SP IV Micafungin # 7 ( Emperic coverage of fungemia ) -09/14/17 - S/P IV Vanco and Zosyn # 9 -09/04 SP IV Azithromycin #3 -09/03 SP Zosyn #6 - Monitor CBC/CMP, temperatures - aspiration precautions - CRP - Monitor CK - Neuro,cardio, renal, GI f/u - Consider liver abscess if leukocytosis does not resolve. Subjective Allergies: Coded Allergies: NO KNOWN ALLERGIES (Verified Allergy, Unknown, 09/02/17) Subjective No acute events Patient with continued low grade fever No N/V/D, No Pain. Objective Vital Signs Last 24 Hour Vital Signs Date Time Temp Pulse Resp B/P (MAP) Pulse Ox O2 Delivery O2 Flow Rate FiO2 09/20/17 08:00 99.7 68 18 141/55 (83) 94 99.7 09/20/17 06:05 98.2 98.2 09/20/17 04:00 99.1 88 18 157/98 (117) 95 99.1 09/20/17 02:53 143/87 09/19/17 23:45 99.7 76 16 143/87 (105) 99.7 09/19/17 23:45 Room Air 09/19/17 21:00 Room Air 09/19/17 20:00 100.0 84 94/59 (71) 100.0 09/19/17 20:00 Room Air 09/19/17 20:00 100.9 84 16 94/59 (71) 100.9 09/19/17 18:37 138/84 09/19/17 15:52 100.1 76 21 138/84 (102) 99 100.1 09/19/17 12:00 100.2 72 22 129/78 (95) 97 100.2 09/19/17 10:03 98.6 Height (Feet): 5 Height (Inches): 5.00 Weight (Pounds): 202 Objective General: NAD, Awake and talking HEENT: NCAT, MMM, EOMI, No oral lesions. Heart: RRR, no m/r/g, right HD line in place CLISA = 0 Lungs: CTA x2, No W/C ABD: Soft, NT, ND, BS+ Extremity: no edema or cellulitis Neuro: A/O x 4, Grossly nonfocal Microbiology Date/Time Source Procedure Growth Status 09/17/17 15:30 Blood Blood Culture - Preliminary NO GROWTH AFTER 48 HOURS Resulted 09/17/17 15:30 Blood Blood Culture - Preliminary NO GROWTH AFTER 48 HOURS Resulted Laboratory Tests Test 09/20/17 05:10 White Blood Count 18.5 K/UL (4.8-10.8) H Red Blood Count 2.62 M/UL (4.70-6.10) L Hemoglobin 8.2 G/DL (14.2-18.0) L Hematocrit 24.1 % (42.0-52.0) L Mean Corpuscular Volume 92 FL (80-99) Mean Corpuscular Hemoglobin 31.4 PG (27.0-31.0) H Mean Corpuscular Hemoglobin Concent 34.1 G/DL (32.0-36.0) Red Cell Distribution Width 12.0 % (11.6-14.8) Platelet Count 458 K/UL (150-450) H Mean Platelet Volume 6.0 FL (6.5-10.1) L Neutrophils (%) (Auto) % (45.0-75.0) Lymphocytes (%) (Auto) % (20.0-45.0) Monocytes (%) (Auto) % (1.0-10.0) Eosinophils (%) (Auto) % (0.0-3.0) Basophils (%) (Auto) % (0.0-2.0) Differential Total Cells Counted 100 Neutrophils % (Manual) 81 % (45-75) H Lymphocytes % (Manual) 9 % (20-45) L Monocytes % (Manual) 9 % (1-10) Eosinophils % (Manual) 0 % (0-3) Basophils % (Manual) 1 % (0-2) Band Neutrophils 0 % (0-8) Platelet Estimate Increased H Platelet Morphology Normal Sodium Level 140 MMOL/L (136-145) Potassium Level 2.9 MMOL/L (3.5-5.1) L Chloride Level 101 MMOL/L (98-107) Carbon Dioxide Level 31 MMOL/L (21-32) Anion Gap 8 mmol/L (5-15) Blood Urea Nitrogen 58 mg/dL (7-18) H Creatinine 7.0 MG/DL (0.55-1.30) H Estimat Glomerular Filtration Rate 8.8 mL/min (>60) Glucose Level 104 MG/DL (74-106) Calcium Level 8.0 MG/DL (8.5-10.1) L Current Medications Medications (Trade) Dose Ordered Sig/Krystyna Route PRN Reason Start Time Stop Time Status Last Admin Dose Admin Acetaminophen (Tylenol) 650 mg Q4H PRN ORAL Fever (temp>100.5F) 09/05/17 18:30 10/05/17 18:29 09/19/17 09:04 Aluminum Hydroxide (Amphojel) 1,920 mg Q8H ORAL 09/18/17 15:00 10/18/17 14:59 09/20/17 06:04 Chlorhexidine Gluconate (Jyotsna-Hex 2%) 1 applic DAILY@1999 TOPIC 09/05/17 20:00 09/29/17 19:59 09/19/17 21:07 Clonidine HCl (Catapres Tab) 0.1 mg Q8H ORAL 09/17/17 18:00 10/10/17 03:59 09/20/17 02:53 Daptomycin 550 mg/ Sodium Chloride 55 ml @ 100 mls/hr Q48H IV 09/14/17 19:00 09/21/17 18:59 09/18/17 19:14 Dextrose (Dextrose 50%) 25 ml STAT PRN IV Hypoglycemia 09/05/17 18:30 10/05/17 18:29 Dextrose (Dextrose 50%) 50 ml STAT PRN IV Hypoglycemia 09/05/17 18:30 10/05/17 18:29 Docusate Sodium (Colace) 100 mg TID ORAL 09/17/17 13:00 10/17/17 12:59 09/19/17 08:37 Heparin Sodium (Porcine) (Heparin 5000 units/ml) 5,000 units EVERY 12 HOURS SUBQ 09/05/17 21:00 09/28/17 20:59 09/19/17 21:08 Meropenem 500 mg/ Sodium Chloride 55 ml @ 110 mls/hr Q24H IVPB 09/15/17 16:00 09/24/17 15:59 09/19/17 16:02 Micafungin Sodium 100 mg/Sodium Chloride 110 ml @ 110 mls/hr Q24H IVPB 09/18/17 18:00 09/25/17 17:59 09/19/17 18:36 Mirtazapine (Remeron) 15 mg BEDTIME ORAL 09/05/17 21:00 10/04/17 20:59 09/19/17 21:07 Nitroglycerin (Ntg) 0.4 mg Q5M PRN SL Prn Chest Pain 09/05/17 18:30 09/28/17 14:44 Pantoprazole (Protonix) 40 mg Q12HR ORAL 09/18/17 14:00 10/18/17 13:59 09/19/17 21:07 Quetiapine Fumarate (SEROquel) 50 mg DAILY ORAL 09/17/17 09:00 10/17/17 08:59 09/19/17 08:37 Quetiapine Fumarate (SEROquel) 50 mg Q4H PRN ORAL agitation 09/10/17 14:00 10/10/17 13:59 09/18/17 01:47 Quetiapine Fumarate (SEROquel) 50 mg QLUNCH ORAL 09/17/17 11:30 10/17/17 11:29 09/19/17 11:20 Quetiapine Fumarate (SEROquel) 100 mg BEDTIME ORAL 09/16/17 21:00 10/16/17 20:59 09/19/17 21:07 Sevelamer Carbonate (Renvela) 1,600 mg THREE TIMES A DAY ORAL 09/18/17 09:00 10/18/17 08:59 09/19/17 18:36 Jean Cervantes M.D. Sep 20, 2017 09:08
[2017-09-20] MEDS: Docusate 100mg cap ORAL SCH ×3 (09:28→18:12)
[2017-09-20] MEDS: Heparin 5000 units/ml inj SUBQ SCH ×2 (09:29→20:39)
--- NOTE | 2017-09-20 10:09 | General Progress Note ---
Assessment/Plan Problem List: (1) Rhabdomyolysis ICD Codes: M62.82 - Rhabdomyolysis SNOMED: 763448369 Qualifiers: Qualified Codes: T79.6XXA - Traumatic ischemia of muscle, initial encounter (2) Aspiration pneumonia ICD Codes: J69.0 - Pneumonitis due to inhalation of food and vomit SNOMED: 655245134 Qualifiers: Qualified Codes: J69.0 - Pneumonitis due to inhalation of food and vomit (3) Substance abuse ICD Codes: F19.10 - Other psychoactive substance abuse, uncomplicated SNOMED: 87614513 (4) Transaminitis ICD Codes: R74.0 - Nonspecific elevation of levels of transaminase and lactic acid dehydrogenase [LDH] SNOMED: 242720832, 015861494 Assessment/Plan Hep A immunity Hep C positive transaminitis >> downtrending, near normal levels cdiff negative stool culture >> gram negative bacillus elevated lipase >> now normal OB stool negative x2 prn transfusions renal diet abx supportive care ppi fu labs, lipase, trend LFTs outpatient Hep C tx Subjective Allergies: Coded Allergies: NO KNOWN ALLERGIES (Verified Allergy, Unknown, 09/02/17) Objective Last 24 Hour Vital Signs Date Time Temp Pulse Resp B/P (MAP) Pulse Ox O2 Delivery O2 Flow Rate FiO2 09/20/17 08:00 99.7 68 18 141/55 (83) 94 99.7 09/20/17 06:05 98.2 98.2 09/20/17 04:00 99.1 88 18 157/98 (117) 95 99.1 09/20/17 02:53 143/87 09/19/17 23:45 99.7 76 16 143/87 (105) 99.7 09/19/17 23:45 Room Air 09/19/17 21:00 Room Air 09/19/17 20:00 100.0 84 94/59 (71) 100.0 09/19/17 20:00 Room Air 09/19/17 20:00 100.9 84 16 94/59 (71) 100.9 09/19/17 18:37 138/84 09/19/17 15:52 100.1 76 21 138/84 (102) 99 100.1 09/19/17 12:00 100.2 72 22 129/78 (95) 97 100.2 Intake and Output 09/19/17 09/20/17 19:00 07:00 Intake Total 535 ml 110 ml Output Total 3150 ml Balance 535 ml -3040 ml Intake Oral 480 ml IV Total 55 ml 110 ml Output Urine Total 1150 ml Hemodialysis UF 2000 ml # Bowel Movements 3 2 Laboratory Tests 09/20/17 05:10: White Blood Count 18.5H, Red Blood Count 2.62L, Hemoglobin 8.2L, Hematocrit 24.1L, Mean Corpuscular Volume 92, Mean Corpuscular Hemoglobin 31.4H, Mean Corpuscular Hemoglobin Concent 34.1, Red Cell Distribution Width 12.0, Platelet Count 458H, Mean Platelet Volume 6.0L, Neutrophils (%) (Auto) , Lymphocytes (%) (Auto) , Monocytes (%) (Auto) , Eosinophils (%) (Auto) , Basophils (%) (Auto) , Differential Total Cells Counted 100, Neutrophils % (Manual) 81H, Lymphocytes % (Manual) 9L, Monocytes % (Manual) 9, Eosinophils % (Manual) 0, Basophils % ( Manual) 1, Band Neutrophils 0, Platelet Estimate IncreasedH, Platelet Morphology Normal, Sodium Level 140, Potassium Level 2.9L, Chloride Level 101, Carbon Dioxide Level 31, Anion Gap 8, Blood Urea Nitrogen 58H, Creatinine 7.0H, Estimat Glomerular Filtration Rate 8.8, Glucose Level 104, Calcium Level 8.0L Height (Feet): 5 Height (Inches): 5.00 Weight (Pounds): 202 General Appearance: no apparent distress EENT: normal ENT inspection Neck: supple Cardiovascular: normal rate Respiratory/Chest: decreased breath sounds Abdomen: normal bowel sounds, non tender, soft Extremities: non-tender Efrain Chavez MD Sep 20, 2017 10:09
--- NOTE | 2017-09-20 11:08 | Nephrology Progress Note ---
Assessment/Plan Assessment 1. Acute rhabdomyolysis.(anuric ),dialysis dependent 2. Hypocalcemia. 3. Hyperkalemia. 4. Lactic acidosis. 5. Shock liver. 6. History of multiple drug use. Plan dialysis as schedule monitoring renal function monitoring out put Subjective Constitutional: Reports: no symptoms HEENT: Reports: no symptoms Neurologic/Psychiatric: Reports: no symptoms Subjective alert and awake Objective Objective Last 24 Hour Vital Signs Date Time Temp Pulse Resp B/P (MAP) Pulse Ox O2 Delivery O2 Flow Rate FiO2 09/20/17 10:18 141/55 09/20/17 08:00 99.7 68 18 141/55 (83) 94 99.7 09/20/17 06:05 98.2 98.2 09/20/17 04:00 99.1 88 18 157/98 (117) 95 99.1 09/20/17 02:53 143/87 09/19/17 23:45 99.7 76 16 143/87 (105) 99.7 09/19/17 23:45 Room Air 09/19/17 21:00 Room Air 09/19/17 20:00 100.0 84 94/59 (71) 100.0 09/19/17 20:00 Room Air 09/19/17 20:00 100.9 84 16 94/59 (71) 100.9 09/19/17 18:37 138/84 09/19/17 15:52 100.1 76 21 138/84 (102) 99 100.1 09/19/17 12:00 100.2 72 22 129/78 (95) 97 100.2 Intake and Output 09/19/17 09/20/17 19:00 07:00 Intake Total 535 ml 110 ml Output Total 3150 ml Balance 535 ml -3040 ml Intake Oral 480 ml IV Total 55 ml 110 ml Output Urine Total 1150 ml Hemodialysis UF 2000 ml # Bowel Movements 3 2 Laboratory Tests 09/20/17 05:10: White Blood Count 18.5H, Red Blood Count 2.62L, Hemoglobin 8.2L, Hematocrit 24.1L, Mean Corpuscular Volume 92, Mean Corpuscular Hemoglobin 31.4H, Mean Corpuscular Hemoglobin Concent 34.1, Red Cell Distribution Width 12.0, Platelet Count 458H, Mean Platelet Volume 6.0L, Neutrophils (%) (Auto) , Lymphocytes (%) (Auto) , Monocytes (%) (Auto) , Eosinophils (%) (Auto) , Basophils (%) (Auto) , Differential Total Cells Counted 100, Neutrophils % (Manual) 81H, Lymphocytes % (Manual) 9L, Monocytes % (Manual) 9, Eosinophils % (Manual) 0, Basophils % ( Manual) 1, Band Neutrophils 0, Platelet Estimate IncreasedH, Platelet Morphology Normal, Sodium Level 140, Potassium Level 2.9L, Chloride Level 101, Carbon Dioxide Level 31, Anion Gap 8, Blood Urea Nitrogen 58H, Creatinine 7.0H, Estimat Glomerular Filtration Rate 8.8, Glucose Level 104, Calcium Level 8.0L Height (Feet): 5 Height (Inches): 5.00 Weight (Pounds): 202 Objective HEAD AND NECK: No JVP. No LAD. G-tube is in place. Head is atraumatic and normocephalic. LUNGS: He has decreased breathing sounds on the both sides. CARDIAC: Regular rate and rhythm. S1 and S2. No murmur. No rub. ABDOMEN: Soft. Bowel sounds positive. EXTREMITIES: No edema. No clubbing. No cyanosis. Aixa Veloz MD Sep 20, 2017 11:08
--- NOTE | 2017-09-20 11:19 | General Progress Note ---
Assessment/Plan Problem List: (1) Substance abuse ICD Codes: F19.10 - Other psychoactive substance abuse, uncomplicated SNOMED: 81412165 (2) Respiratory failure ICD Codes: J96.90 - Respiratory failure, unspecified, unspecified whether with hypoxia or hypercapnia SNOMED: 766467773 Qualifiers: Qualified Codes: J96.01 - Acute respiratory failure with hypoxia (3) Rhabdomyolysis ICD Codes: M62.82 - Rhabdomyolysis SNOMED: 410047886 Qualifiers: Qualified Codes: T79.6XXA - Traumatic ischemia of muscle, initial encounter (4) NSTEMI (non-ST elevated myocardial infarction) ICD Codes: I21.4 - Non-ST elevation (NSTEMI) myocardial infarction SNOMED: 485908121 (5) LUCRECIA (acute kidney injury) ICD Codes: N17.9 - Acute kidney failure, unspecified SNOMED: 64592049 Status: unchanged Assessment/Plan ot pt diet abx neuro psyc eval cbc bmp am aru eval Subjective Constitutional: Reports: weakness Allergies: Coded Allergies: NO KNOWN ALLERGIES (Verified Allergy, Unknown, 09/02/17) All Systems: reviewed and negative except above Subjective calm in bed sleepy Objective Last 24 Hour Vital Signs Date Time Temp Pulse Resp B/P (MAP) Pulse Ox O2 Delivery O2 Flow Rate FiO2 09/20/17 10:18 141/55 09/20/17 08:00 99.7 68 18 141/55 (83) 94 99.7 09/20/17 06:05 98.2 98.2 09/20/17 04:00 99.1 88 18 157/98 (117) 95 99.1 09/20/17 02:53 143/87 09/19/17 23:45 99.7 76 16 143/87 (105) 99.7 09/19/17 23:45 Room Air 09/19/17 21:00 Room Air 09/19/17 20:00 100.0 84 94/59 (71) 100.0 09/19/17 20:00 Room Air 09/19/17 20:00 100.9 84 16 94/59 (71) 100.9 09/19/17 18:37 138/84 09/19/17 15:52 100.1 76 21 138/84 (102) 99 100.1 09/19/17 12:00 100.2 72 22 129/78 (95) 97 100.2 Intake and Output 09/19/17 09/20/17 19:00 07:00 Intake Total 535 ml 110 ml Output Total 3150 ml Balance 535 ml -3040 ml Intake Oral 480 ml IV Total 55 ml 110 ml Output Urine Total 1150 ml Hemodialysis UF 2000 ml # Bowel Movements 3 2 Laboratory Tests 09/20/17 05:10: White Blood Count 18.5H, Red Blood Count 2.62L, Hemoglobin 8.2L, Hematocrit 24.1L, Mean Corpuscular Volume 92, Mean Corpuscular Hemoglobin 31.4H, Mean Corpuscular Hemoglobin Concent 34.1, Red Cell Distribution Width 12.0, Platelet Count 458H, Mean Platelet Volume 6.0L, Neutrophils (%) (Auto) , Lymphocytes (%) (Auto) , Monocytes (%) (Auto) , Eosinophils (%) (Auto) , Basophils (%) (Auto) , Differential Total Cells Counted 100, Neutrophils % (Manual) 81H, Lymphocytes % (Manual) 9L, Monocytes % (Manual) 9, Eosinophils % (Manual) 0, Basophils % ( Manual) 1, Band Neutrophils 0, Platelet Estimate IncreasedH, Platelet Morphology Normal, Sodium Level 140, Potassium Level 2.9L, Chloride Level 101, Carbon Dioxide Level 31, Anion Gap 8, Blood Urea Nitrogen 58H, Creatinine 7.0H, Estimat Glomerular Filtration Rate 8.8, Glucose Level 104, Calcium Level 8.0L Height (Feet): 5 Height (Inches): 5.00 Weight (Pounds): 202 General Appearance: lethargic EENT: normal ENT inspection Neck: normal alignment Cardiovascular: normal peripheral pulses, normal rate, regular rhythm Respiratory/Chest: chest wall non-tender, lungs clear, normal breath sounds Abdomen: normal bowel sounds, non tender, soft Extremities: normal inspection Edema: 1+ Arm (L), 1+ Arm (R), 1+ Leg (L), 1+ Leg (R), 1+ Pedal (L), 1+ Pedal ( R), 1+ Generalized Edema: trace edema Neurologic: responsive, motor weakness Skin: normal pigmentation, warm/dry Reid Anaya DO Sep 20, 2017 11:18
[2017-09-20 11:59] VITALS: BP 135/79
[2017-09-20] MEDS: Tamsulosin 0.4mg cap ORAL SCH ×2 (12:41→20:37)
--- NOTE | 2017-09-20 13:45 | Neurology Progress Note ---
Interim History Interim History Interim History Mr. Stover feels better. He was sleeping when I javier to see him. The mind is clearer. He feels less confused. He however still gets agitated at times. He feels more energetic. He is less forgetful. He is still gets confused but is better oriented. His appetite is better. He is generally stronger. He stood up with the PT and took a few steps yesterday but has not been out of bed today. He denies any new neurologic symptoms. He specifically denies any weakness on one side or the other, numbness on one side or the other, problems with speech, problems with language, or problems with vision. Review of Systems Neuro Review of Systems Benign. Objective Physical Exam Last Vital Signs Date Time Temp Pulse Resp B/P (MAP) Pulse Ox O2 Delivery O2 Flow Rate FiO2 09/20/17 11:59 99.3 72 18 135/79 (97) 94 99.3 09/20/17 08:10 Room Air 09/14/17 20:33 4.0 21 Laboratory Tests Test 09/20/17 05:10 White Blood Count 18.5 K/UL (4.8-10.8) H Red Blood Count 2.62 M/UL (4.70-6.10) L Hemoglobin 8.2 G/DL (14.2-18.0) L Hematocrit 24.1 % (42.0-52.0) L Mean Corpuscular Volume 92 FL (80-99) Mean Corpuscular Hemoglobin 31.4 PG (27.0-31.0) H Mean Corpuscular Hemoglobin Concent 34.1 G/DL (32.0-36.0) Red Cell Distribution Width 12.0 % (11.6-14.8) Platelet Count 458 K/UL (150-450) H Mean Platelet Volume 6.0 FL (6.5-10.1) L Neutrophils (%) (Auto) % (45.0-75.0) Lymphocytes (%) (Auto) % (20.0-45.0) Monocytes (%) (Auto) % (1.0-10.0) Eosinophils (%) (Auto) % (0.0-3.0) Basophils (%) (Auto) % (0.0-2.0) Differential Total Cells Counted 100 Neutrophils % (Manual) 81 % (45-75) H Lymphocytes % (Manual) 9 % (20-45) L Monocytes % (Manual) 9 % (1-10) Eosinophils % (Manual) 0 % (0-3) Basophils % (Manual) 1 % (0-2) Band Neutrophils 0 % (0-8) Platelet Estimate Increased H Platelet Morphology Normal Sodium Level 140 MMOL/L (136-145) Potassium Level 2.9 MMOL/L (3.5-5.1) L Chloride Level 101 MMOL/L (98-107) Carbon Dioxide Level 31 MMOL/L (21-32) Anion Gap 8 mmol/L (5-15) Blood Urea Nitrogen 58 mg/dL (7-18) H Creatinine 7.0 MG/DL (0.55-1.30) H Estimat Glomerular Filtration Rate 8.8 mL/min (>60) Glucose Level 104 MG/DL (74-106) Calcium Level 8.0 MG/DL (8.5-10.1) L Neurologic Exam Objective PHYSICAL EXAMINATION: GENERAL: He is a well-developed, well-nourished, gentleman, lying in bed. HEAD: Normocephalic and atraumatic. EENT: Examination benign. NECK: No neck rigidity was observed. NEUROLOGIC EXAMINATION: MENTAL STATUS EXAMINATION: He was awake and alert. He was oriented to [facility], and [facility] and September 20, 2017. He was able to recall 3/3 words immediately, and could remember them in 1 and 3 minutes. He was able to remember presidents Trump through [employer] with hints. His mathematical skills were minimally impaired. His visuospatial function was good. SPEECH: He had no dysarthria. LANGUAGE: He had a moderate anomia. CRANIAL NERVE EXAMINATION: II: The visual dinh were intact on confrontation testing. III, IV & : The external ocular movements were present. The pupils were 3 mm in diameter and reactive sluggishly to light. V: He had normal facial sensations and the temporales, masseters and pterygoids functioned well. VII: He had normal facial expressions and no facial asymmetry. VIII: He was able to hear well and had no nystagmus. IX: The palate moved symmetrically on phonation. X: He had no hoarseness of voice. XI: The sternocleidomastoids and trapezii functioned well. XII: The tongue was in the midline. MOTOR SYSTEM: The tone was normal in all four extremities. Examination of muscle mass revealed no focal wasting. Examination of power revealed G 5/5 power in all muscle groups except for G 0/5 in the right ankle dorsiflexors, toe extensors, ankle plantar flexors and toe flexors, G 5-/5 in the left ankle dorsiflexors and toe extensors, and G 4/5 in the iliopsoas muscle bilaterally. SENSORY EXAMINATION: He had altered sensations in the right peroneal distribution. REFLEXES: Trace+ and bilaterally symmetrical at the biceps, triceps, brachioradialis, and knees, 0 at both ankles. The plantar responses were flexor bilaterally. COORDINATION: He performed well on finger to nose testing. STANCE & GAIT: Could not be tested. Impression/Recommendations Diagnostic Impression 1. Mr. Enoch Stover is a 37-year-old, gentleman, of unknown handedness, who was found unconscious in a hotel room on 08/29/2017 after he had used multiple drugs. He was found to be possibly febrile, hypoglycemic, and breathing rapidly. Since then, he has been hospitalized and treated for sepsis. 2. He feels better. He was sleeping when I went to see him. The mind is clearer. He feels less confused. He however still gets agitated at times. He feels more energetic. He is less forgetful. He is still gets confused but is better oriented. His appetite is better. He is generally stronger. He stood up with the PT and took a few steps yesterday but has not been out of bed today. He denies any new neurologic symptoms. 3. On neurological examination, at this time, he is awake and alert. He is fully oriented. His problems with recent and remote memory are significantly better. His speech is normal. He has a moderate anomia. His cranial nerves are functioning normally. His motor function is relatively good he however has mild proximal lower extremity weakness, and mild distal left lower extremity weakness with no movement in the right ankle and toes. His sensations are altered in the right peroneal distribution. His deep tendon reflexes are diminished but his plantar responses are flexor. He also does not demonstrate any definite focal or lateralizing neurological findings. 4. The CT scan of the brain performed on 08/29/2017 and repeated on 09/04/17 is benign for acute pathology. 5. Laboratory data obtained thus far revealed, on admission, his hemoglobin was elevated to 18.4, his WBC was normal at 8,500, but since then his WBCs have peaked to 17,200. His chemistry panel on admission revealed BUN elevated to 31 , creatinine elevated to 3.6, lactic acid elevated to 5.5, bilirubin elevated at 1.2, AST elevated at 478, ALT elevated to 159, CK elevated to greater than 10 ,000, troponin elevated at 1.01, BNP elevated to 2143. His urine toxicology screen was positive for opiates, amphetamines, cocaine, and marijuana. His INR was elevated at 1.2. His TSH is elevated at 4.72. The T3 is low but the T4 is normal. 6. The patient's history, neurological examination, laboratory data, and imaging studies are most compatible with an altered mental state due to a toxic metabolic encephalopathy. 7. The most likely etiology for the encephalopathy is the sepsis, possibly a period of hypoglycemia and ongoing multiple metabolic imbalances and the toxic imbalances. In addition the use of mind-altering drugs could have also been contributing. 8. His encephalopathy is still waxing and waning but is better today. 9. He has also developed bilateral mild proximal lower extremity weakness, and in addition severe right distal lower extremity weakness with severe right peroneal and tibial nerve dysfunction. His sensations are also altered in the right peroneal distribution. Recommendations 1. Continue present management. 2. Continue aggressive treatment of the patient's infectious process. 3. Aggressive management of toxic/metabolic imbalances. 4. AFO for right foot drop. 5. PT/OT. 6. Observe closely. Chris Gomez M.D., M.S.P.Luz. CHRIS GOMEZ Sep 20, 2017 13:45
[2017-09-20 16:00] VITALS: BP 120/65
--- NOTE | 2017-09-20 16:50 | Diagnostic Imaging Report ---
APPROVED REPORT CPT Code: 37664 Present Symptoms Comments: Swelling of right arm Hx of Line RIGHT UPPER EXTREMITY: Imaging reveals patency of the internal jugular, subclavian, axillary and brachial veins. The cephalic and basilic veins are also within normal limits. The Doppler indicates normal spontaneous flow within these venous segments.
--- NOTE | 2017-09-20 16:50 | Diagnostic Imaging Report ---
APPROVED REPORT CPT Code: 05069 Present Symptoms Lower Extremity Edema: Bilateral Comments: Pain BILATERAL: Imaging reveals a patent deep venous system bilaterally. There is no evidence of thrombus within the femoral, popliteal or tibial segments. The greater saphenous veins are also within normal limits. Doppler indicates normal spontaneous flow within these segments. Note: Common femoral veins were not completely compressed, due to bilateral enlarged lymph nodes and pain.
[2017-09-20] MEDS: Meropenem 500mg/NS 55ml IVPB SCH ×2 (17:01)
--- NOTE | 2017-09-20 18:11 | Cardiology Progress Note ---
Assessment/Plan Assessment/Plan 1. Sepsis, no evidence of infective endocarditis. No bacteremia. Continue IV ABx per ID recs. 2. LUCRECIA, s/p Mahurkar catheter placement. 3. Shock liver, resolved. 4. Acute pancreatitis with systemic inflammatory response disease, downtrending lipase. 5. Elevated troponin I level likely due to myocarditis, sepsis, or due to shock. 6. Sinus tachycardia, resolved, continue hydration. 7. Toxic metabolic encephalopathy Subjective Subjective No cardiac events. Objective Last 24 Hour Vital Signs Date Time Temp Pulse Resp B/P (MAP) Pulse Ox O2 Delivery O2 Flow Rate FiO2 09/20/17 16:31 Room Air 09/20/17 16:00 97.6 70 21 120/65 (83) 97 97.6 09/20/17 11:59 99.3 72 18 135/79 (97) 94 99.3 09/20/17 10:18 141/55 09/20/17 08:10 Room Air 09/20/17 08:00 99.7 68 18 141/55 (83) 94 99.7 09/20/17 06:05 98.2 98.2 09/20/17 04:00 99.1 88 18 157/98 (117) 95 99.1 09/20/17 02:53 143/87 09/19/17 23:45 99.7 76 16 143/87 (105) 99.7 09/19/17 23:45 Room Air 09/19/17 21:00 Room Air 09/19/17 20:00 100.0 84 94/59 (71) 100.0 09/19/17 20:00 Room Air 09/19/17 20:00 100.9 84 16 94/59 (71) 100.9 09/19/17 18:37 138/84 Intake and Output 09/19/17 09/20/17 19:00 07:00 Intake Total 535 ml 110 ml Output Total 3150 ml Balance 535 ml -3040 ml Intake Oral 480 ml IV Total 55 ml 110 ml Output Urine Total 1150 ml Hemodialysis UF 2000 ml # Bowel Movements 3 2 2D Echo: KATELYN: Nl LV systolic & diastolic function, Mild MR, No vegetations, Nl RVSP Laboratory Tests Test 09/20/17 05:10 White Blood Count 18.5 K/UL (4.8-10.8) H Red Blood Count 2.62 M/UL (4.70-6.10) L Hemoglobin 8.2 G/DL (14.2-18.0) L Hematocrit 24.1 % (42.0-52.0) L Mean Corpuscular Volume 92 FL (80-99) Mean Corpuscular Hemoglobin 31.4 PG (27.0-31.0) H Mean Corpuscular Hemoglobin Concent 34.1 G/DL (32.0-36.0) Red Cell Distribution Width 12.0 % (11.6-14.8) Platelet Count 458 K/UL (150-450) H Mean Platelet Volume 6.0 FL (6.5-10.1) L Neutrophils (%) (Auto) % (45.0-75.0) Lymphocytes (%) (Auto) % (20.0-45.0) Monocytes (%) (Auto) % (1.0-10.0) Eosinophils (%) (Auto) % (0.0-3.0) Basophils (%) (Auto) % (0.0-2.0) Differential Total Cells Counted 100 Neutrophils % (Manual) 81 % (45-75) H Lymphocytes % (Manual) 9 % (20-45) L Monocytes % (Manual) 9 % (1-10) Eosinophils % (Manual) 0 % (0-3) Basophils % (Manual) 1 % (0-2) Band Neutrophils 0 % (0-8) Platelet Estimate Increased H Platelet Morphology Normal Sodium Level 140 MMOL/L (136-145) Potassium Level 2.9 MMOL/L (3.5-5.1) L Chloride Level 101 MMOL/L (98-107) Carbon Dioxide Level 31 MMOL/L (21-32) Anion Gap 8 mmol/L (5-15) Blood Urea Nitrogen 58 mg/dL (7-18) H Creatinine 7.0 MG/DL (0.55-1.30) H Estimat Glomerular Filtration Rate 8.8 mL/min (>60) Glucose Level 104 MG/DL (74-106) Calcium Level 8.0 MG/DL (8.5-10.1) L Objective HEENT: Atraumatic and normocephalic. Pupils are equal, round, and reactive to light and accommodation. Scleral injection in both eyes. Dry mucosal membranes. NECK: JVP cannot be assessed. CVS: Normal S1, S2. Cannot appreciate any murmurs, gallops, or rubs. LUNGS: Clear to auscultation bilaterally. ABDOMEN: Soft, nontender, and nondistended. No hepatosplenomegaly. Positive bowel sounds. EXTREMITIES: No evidence of edema, clubbing, or cyanosis. Right lower extremity with decrease in both motor and sensory function. Jorge Mcdonough MD Sep 20, 2017 18:11
[2017-09-20] MEDS: Micafungin 100 MG in NS 110 ML IVPB SCH (18:13)
[2017-09-20] MEDS: DAPTOmycin 550 MG in NS 55 ML IV SCH (19:11)
[2017-09-20 20:00] VITALS: BP 150/88
[2017-09-20] MEDS: Dyna-Hex 2% Top Sol 2oz TOPIC SCH (20:37)
[2017-09-21] VITALS (7 sets, daily range): BP systolic 136–148; BP diastolic 77–88
[2017-09-21 06:19] LABS: HEMATOCRIT 21.5 % (42.0-52.0); HEMOGLOBIN 7.6 G/DL (14.2-18.0); MEAN CORPUSCULAR VOLUME 92 FL (80-99); PLATELET COUNT 416 K/UL (150-450); RED BLOOD COUNT 2.33 M/UL (4.70-6.10); RED CELL DISTRIBUTION WIDTH 11.7 % (11.6-14.8); WHITE BLOOD COUNT 13.5 K/UL (4.8-10.8)
[2017-09-21] MEDS: Aluminum Hydroxide Gel Susp 15ml ORAL SCH ×3 (06:23→23:07)
[2017-09-21 06:37] LABS: ANION GAP 9 mmol/L (5-15); BLOOD UREA NITROGEN 55 mg/dL (7-18); CALCIUM 8.6 MG/DL (8.5-10.1); CARBON DIOXIDE 30 MMOL/L (21-32); CHLORIDE 107 MMOL/L (98-107); CREATININE 5.8 MG/DL (0.55-1.30); POTASSIUM 3.5 MMOL/L (3.5-5.1); SODIUM 145 MMOL/L (136-145)
--- NOTE | 2017-09-21 08:38 | Infectious Diseases Prog Note ---
Assessment/Plan Assessment/Plan Aspiration PNA -CXR 09/04 : Interim development of hazy interstitial and airspace disease in the right lung. This may to some extent be an artifact of less optimal inspiration, however. Interim extubation -sp cx normal ann; repeat sp cx MSSA -legionella ag urine neg Sp sepsis - Leukocytosis - Improving - No source found - Pancreatitis ? -u/a wbc 5-10, nit neg, leuk +1; cx neg -Bcx NTD (09/05 abd 09/07) -2d Echo (limited but no vegetations seen) - No Veg on KATELYN 09/10/17 - Tagged WBCs no focal uptake - MRI pelvis 09/11/17 : Diffuse symmetric edema of the bilateral buttock musculature , ? Myositis Discrete 3 x 3 x 7.3 cm fluid collection in the lateral left buttock musculature 09/13 SP No purulent material aspirated. Only small amount of blood aspirated Cx : Negative Blood Cx 09/18/17 - NGTD Urine Cx 09/18/17 - Low counts Fever: soruce ? Rhabdo vs pancreatitis - CT scan 09/19/17 - Interim development of what is probably a right buttock hematoma, measuring 6 x 3.5 by at least 11 cm, Worsening anasarca, Mild pulmonary groundglass opacity, likely represents pulmonary edema, 12 mm focus of low attenuation within the dome of the right hepatic lobe. Complex cyst , early hepatic abscess, less likely neoplasm given patient's age. Consider further evaluation with sonography to see if this is sonographically visible Diverticulosis. No evidence of diverticulitis -Cdiff neg -v/duplex no DVT -HIV ab sc and VL neg, RPR/FTA, GC/CL neg Hep C +; VL pending -ABD US: Gallbladder sludge. Negative for gallstones or dilated ducts. Equivocal increased hepatic echogenicity, if real could indicate hepatocellular disease such as fatty change. Borderline hepatomegaly. Mildly increased renal echogenicity, could indicate medical renal disease. Correlate with renal function tests. Left pleural effusion -Hep A and B immune Drug overdose -UDS + opiates, amphetamines, THC, cocaine -+empty heroin needles (found on hotel room) Multiorgan failure -LUCRECIA, - on HD -Transaminitis, (shock liver); improving -VDRF (airway protection)- extubaetd 09/03 Lactic acidosis; resolved Rhabdomyolisis; improving Pancreatitis- drug induced -neg alcohol levels Encephalopathy - improved -CT head 09/04: Unusual scalp contusion, new since prior study 08/29/2017. No evidence of underlying calvarial trauma. Negative for acute intracranial bleed or mass effect Plan: - Leukocytosis improving - Continue to monitor - Afebrile - Contuinue IV Dapto d# 08/20 ( may stop Dapto if CK worsen or more than 10x Nl ) and Merrem d# 08/20 ( empirically ) - Continue Micafungin #3/6 - 09/14/17 - SP IV Micafungin # 7 ( Emperic coverage of fungemia ) -09/14/17 - S/P IV Vanco and Zosyn # 9 -09/04 SP IV Azithromycin #3 -09/03 SP Zosyn #6 - Monitor CBC/CMP, temperatures - aspiration precautions - CRP - Monitor CK - Neuro,cardio, renal, GI f/u - Consider liver abscess if leukocytosis does not resolve. Subjective Allergies: Coded Allergies: NO KNOWN ALLERGIES (Verified Allergy, Unknown, 09/02/17) Subjective No acute events Patient afebrile No N/V/D, No Pain. Objective Vital Signs Last 24 Hour Vital Signs Date Time Temp Pulse Resp B/P (MAP) Pulse Ox O2 Delivery O2 Flow Rate FiO2 09/21/17 08:00 99.3 70 18 139/80 (99) 94 99.3 09/21/17 04:00 97.2 56 19 147/85 (105) 97 97.2 09/21/17 02:09 136/81 09/21/17 00:00 98.5 62 19 136/81 (99) 95 98.5 09/20/17 21:00 Room Air 09/20/17 20:00 98.0 73 19 150/88 (108) 97 98.0 09/20/17 18:00 120/65 09/20/17 16:31 Room Air 09/20/17 16:00 97.6 70 21 120/65 (83) 97 97.6 09/20/17 11:59 99.3 72 18 135/79 (97) 94 99.3 09/20/17 10:18 141/55 Height (Feet): 5 Height (Inches): 5.00 Weight (Pounds): 198 Objective General: NAD, Awake and talking, sitting up in bed HEENT: NCAT, MMM, EOMI, No oral lesions. Heart: RRR, no m/r/g, right HD line in place CLISA = 0 Lungs: CTA x2, No W/C ABD: Soft, NT, ND, BS+ Extremity: no edema or cellulitis Neuro: A/O x 4, Grossly nonfocal Microbiology Date/Time Source Procedure Growth Status 09/20/17 16:20 Indwelling Cath Urine Culture - Preliminary NO GROWTH Resulted Laboratory Tests Test 09/21/17 05:25 White Blood Count 13.5 K/UL (4.8-10.8) H Red Blood Count 2.33 M/UL (4.70-6.10) L Hemoglobin 7.6 G/DL (14.2-18.0) L Hematocrit 21.5 % (42.0-52.0) L Mean Corpuscular Volume 92 FL (80-99) Mean Corpuscular Hemoglobin 32.8 PG (27.0-31.0) H Mean Corpuscular Hemoglobin Concent 35.4 G/DL (32.0-36.0) Red Cell Distribution Width 11.7 % (11.6-14.8) Platelet Count 416 K/UL (150-450) Mean Platelet Volume 6.0 FL (6.5-10.1) L Neutrophils (%) (Auto) % (45.0-75.0) Lymphocytes (%) (Auto) % (20.0-45.0) Monocytes (%) (Auto) % (1.0-10.0) Eosinophils (%) (Auto) % (0.0-3.0) Basophils (%) (Auto) % (0.0-2.0) Neutrophils % (Manual) Pending Lymphocytes % (Manual) Pending Platelet Estimate Pending Platelet Morphology Pending Sodium Level 145 MMOL/L (136-145) Potassium Level 3.5 MMOL/L (3.5-5.1) Chloride Level 107 MMOL/L (98-107) Carbon Dioxide Level 30 MMOL/L (21-32) Anion Gap 9 mmol/L (5-15) Blood Urea Nitrogen 55 mg/dL (7-18) H Creatinine 5.8 MG/DL (0.55-1.30) H Estimat Glomerular Filtration Rate 10.9 mL/min (>60) Glucose Level 120 MG/DL (74-106) H Calcium Level 8.6 MG/DL (8.5-10.1) Current Medications Medications (Trade) Dose Ordered Sig/Krystyna Route PRN Reason Start Time Stop Time Status Last Admin Dose Admin Acetaminophen (Tylenol) 650 mg Q4H PRN ORAL Fever (temp>100.5F) 09/05/17 18:30 10/05/17 18:29 09/19/17 09:04 Aluminum Hydroxide (Amphojel) 1,920 mg Q8H ORAL 09/18/17 15:00 10/18/17 14:59 09/21/17 06:23 Chlorhexidine Gluconate (Jyotsna-Hex 2%) 1 applic DAILY@2000 TOPIC 09/05/17 20:00 09/29/17 19:59 09/20/17 20:37 Clonidine HCl (Catapres Tab) 0.1 mg Q8H ORAL 09/17/17 18:00 10/10/17 03:59 09/21/17 02:09 Daptomycin 550 mg/ Sodium Chloride 55 ml @ 100 mls/hr Q48H IV 09/14/17 19:00 09/21/17 18:59 09/20/17 19:11 Dextrose (Dextrose 50%) 25 ml STAT PRN IV Hypoglycemia 09/05/17 18:30 10/05/17 18:29 Dextrose (Dextrose 50%) 50 ml STAT PRN IV Hypoglycemia 09/05/17 18:30 10/05/17 18:29 Docusate Sodium (Colace) 100 mg TID ORAL 09/17/17 13:00 10/17/17 12:59 09/20/17 18:12 Heparin Sodium (Porcine) (Heparin 5000 units/ml) 5,000 units EVERY 12 HOURS SUBQ 09/05/17 21:00 09/28/17 20:59 09/20/17 20:39 Meropenem 500 mg/ Sodium Chloride 55 ml @ 110 mls/hr Q24H IVPB 09/15/17 16:00 09/24/17 15:59 09/20/17 17:01 Micafungin Sodium 100 mg/Sodium Chloride 110 ml @ 110 mls/hr Q24H IVPB 09/18/17 18:00 09/25/17 17:59 09/20/17 18:13 Mirtazapine (Remeron) 15 mg BEDTIME ORAL 09/05/17 21:00 10/04/17 20:59 09/20/17 20:37 Nitroglycerin (Ntg) 0.4 mg Q5M PRN SL Prn Chest Pain 09/05/17 18:30 09/28/17 14:44 Pantoprazole (Protonix) 40 mg Q12HR ORAL 09/18/17 14:00 10/18/17 13:59 09/20/17 20:37 Quetiapine Fumarate (SEROquel) 50 mg DAILY ORAL 09/17/17 09:00 10/17/17 08:59 09/20/17 09:28 Quetiapine Fumarate (SEROquel) 50 mg Q4H PRN ORAL agitation 09/10/17 14:00 10/10/17 13:59 09/18/17 01:47 Quetiapine Fumarate (SEROquel) 50 mg QLUNCH ORAL 09/17/17 11:30 10/17/17 11:29 09/20/17 11:11 Quetiapine Fumarate (SEROquel) 100 mg BEDTIME ORAL 09/16/17 21:00 10/16/17 20:59 09/20/17 20:37 Sevelamer Carbonate (Renvela) 1,600 mg THREE TIMES A DAY ORAL 09/18/17 09:00 10/18/17 08:59 09/20/17 18:12 Tamsulosin HCl (Flomax) 0.4 mg BEDTIME ORAL 09/20/17 12:00 10/20/17 11:59 09/20/17 20:37 Jean Cervantes M.D. Sep 21, 2017 08:38
--- NOTE | 2017-09-21 08:59 | General Progress Note ---
Assessment/Plan Problem List: (1) Substance abuse ICD Codes: F19.10 - Other psychoactive substance abuse, uncomplicated SNOMED: 35347186 (2) Respiratory failure ICD Codes: J96.90 - Respiratory failure, unspecified, unspecified whether with hypoxia or hypercapnia SNOMED: 936400645 Qualifiers: Qualified Codes: J96.01 - Acute respiratory failure with hypoxia (3) Rhabdomyolysis ICD Codes: M62.82 - Rhabdomyolysis SNOMED: 603103461 Qualifiers: Qualified Codes: T79.6XXA - Traumatic ischemia of muscle, initial encounter (4) NSTEMI (non-ST elevated myocardial infarction) ICD Codes: I21.4 - Non-ST elevation (NSTEMI) myocardial infarction SNOMED: 783339830 (5) LUCRECIA (acute kidney injury) ICD Codes: N17.9 - Acute kidney failure, unspecified SNOMED: 77470846 Status: stable, progressing Assessment/Plan ot pt diet abx neuro psyc eval cbc bmp am aru eval Subjective Constitutional: Reports: weakness Allergies: Coded Allergies: NO KNOWN ALLERGIES (Verified Allergy, Unknown, 09/02/17) All Systems: reviewed and negative except above Subjective calm in bed sleepy Objective Last 24 Hour Vital Signs Date Time Temp Pulse Resp B/P (MAP) Pulse Ox O2 Delivery O2 Flow Rate FiO2 09/21/17 08:00 99.3 70 18 139/80 (99) 94 99.3 09/21/17 04:00 97.2 56 19 147/85 (105) 97 97.2 09/21/17 02:09 136/81 09/21/17 00:00 98.5 62 19 136/81 (99) 95 98.5 09/20/17 21:00 Room Air 09/20/17 20:00 98.0 73 19 150/88 (108) 97 98.0 09/20/17 18:00 120/65 09/20/17 16:31 Room Air 09/20/17 16:00 97.6 70 21 120/65 (83) 97 97.6 09/20/17 11:59 99.3 72 18 135/79 (97) 94 99.3 09/20/17 10:18 141/55 Intake and Output 09/20/17 09/21/17 19:00 07:00 Intake Total 330 ml Output Total 2700 ml 5775 ml Balance -2370 ml -5775 ml Intake Oral 330 ml Output Urine Total 2700 ml 5775 ml Laboratory Tests 09/21/17 05:25: White Blood Count 13.5H, Red Blood Count 2.33L, Hemoglobin 7.6L, Hematocrit 21.5L, Mean Corpuscular Volume 92, Mean Corpuscular Hemoglobin 32.8H, Mean Corpuscular Hemoglobin Concent 35.4, Red Cell Distribution Width 11.7, Platelet Count 416, Mean Platelet Volume 6.0L, Neutrophils (%) (Auto) , Lymphocytes (%) ( Auto) , Monocytes (%) (Auto) , Eosinophils (%) (Auto) , Basophils (%) (Auto) , Neutrophils % (Manual) [Pending], Lymphocytes % (Manual) [Pending], Platelet Estimate [Pending], Platelet Morphology [Pending], Sodium Level 145, Potassium Level 3.5, Chloride Level 107, Carbon Dioxide Level 30, Anion Gap 9, Blood Urea Nitrogen 55H, Creatinine 5.8H, Estimat Glomerular Filtration Rate 10.9, Glucose Level 120H, Calcium Level 8.6 Height (Feet): 5 Height (Inches): 5.00 Weight (Pounds): 198 General Appearance: lethargic EENT: normal ENT inspection Neck: normal alignment Cardiovascular: normal peripheral pulses, normal rate, regular rhythm Respiratory/Chest: chest wall non-tender, lungs clear, normal breath sounds Abdomen: normal bowel sounds, non tender, soft Extremities: normal inspection Edema: 1+ Arm (L), 1+ Arm (R), 1+ Leg (L), 1+ Leg (R), 1+ Pedal (L), 1+ Pedal ( R), 1+ Generalized Edema: trace edema Neurologic: motor weakness Skin: normal pigmentation, warm/dry Reid Anaya DO Sep 21, 2017 08:59
[2017-09-21] MEDS: Docusate 100mg cap ORAL SCH ×3 (09:00→17:22)
[2017-09-21] MEDS: Heparin 5000 units/ml inj SUBQ SCH ×2 (09:52→20:59)
--- NOTE | 2017-09-21 10:18 | General Progress Note ---
Assessment/Plan Status: stable Assessment/Plan # Anemia of chronic disease. Anemia w/u has been reviewed. Will trend CBC daily. --> Continue to closely monitor for stability. --> Ferritin and tibc reviewed, consistent with anemia of chronic disease --> Hgb goal above >7 --> 09/15 1 unit PRBC, 09/19: 1 unit, --> 09/21: Hgb at 7.6 --> given elev Cr, will start low dose epogen once a week dosing # Leukocytosis. due to infection, however no source is found --> Closely monitor for improvement. --> 09/21: WBC 13.5, IMPROVING --> Currently on IV abx. --> 09/21: Mild grade fever of 99.3 # Thrombocytosis. Likely reactive process to anemia --> Closely monitor PLT count for improvement. --> should improve with improvement in anemia as well --> 09/21: PLT count of 416, wnl # Transaminitis. Trending downwards. The time the note was entered does not necessarily correspond to the time the patient was seen. Subjective Date patient seen: Sep 21, 2017 ROS Limited/Unobtainable: Yes Hematologic/Lymphatic: Reports: anemia Allergies: Coded Allergies: NO KNOWN ALLERGIES (Verified Allergy, Unknown, 09/02/17) All Systems: reviewed and negative except above Subjective Pt awake and alert. No acute events. WBC improving. Objective Last 24 Hour Vital Signs Date Time Temp Pulse Resp B/P (MAP) Pulse Ox O2 Delivery O2 Flow Rate FiO2 09/21/17 08:00 99.3 70 18 139/80 (99) 94 99.3 09/21/17 04:00 97.2 56 19 147/85 (105) 97 97.2 09/21/17 02:09 136/81 09/21/17 00:00 98.5 62 19 136/81 (99) 95 98.5 09/20/17 21:00 Room Air 09/20/17 20:00 98.0 73 19 150/88 (108) 97 98.0 09/20/17 18:00 120/65 09/20/17 16:31 Room Air 09/20/17 16:00 97.6 70 21 120/65 (83) 97 97.6 09/20/17 11:59 99.3 72 18 135/79 (97) 94 99.3 09/20/17 10:18 141/55 Intake and Output 09/20/17 09/21/17 19:00 07:00 Intake Total 330 ml Output Total 2700 ml 5775 ml Balance -2370 ml -5775 ml Intake Oral 330 ml Output Urine Total 2700 ml 5775 ml Laboratory Tests 09/21/17 05:25: White Blood Count 13.5H, Red Blood Count 2.33L, Hemoglobin 7.6L, Hematocrit 21.5L, Mean Corpuscular Volume 92, Mean Corpuscular Hemoglobin 32.8H, Mean Corpuscular Hemoglobin Concent 35.4, Red Cell Distribution Width 11.7, Platelet Count 416, Mean Platelet Volume 6.0L, Neutrophils (%) (Auto) , Lymphocytes (%) ( Auto) , Monocytes (%) (Auto) , Eosinophils (%) (Auto) , Basophils (%) (Auto) , Differential Total Cells Counted 100, Neutrophils % (Manual) 82H, Lymphocytes % (Manual) 7L, Monocytes % (Manual) 11H, Eosinophils % (Manual) 0, Basophils % ( Manual) 0, Band Neutrophils 0, Platelet Estimate Adequate, Platelet Morphology Normal, Sodium Level 145, Potassium Level 3.5, Chloride Level 107, Carbon Dioxide Level 30, Anion Gap 9, Blood Urea Nitrogen 55H, Creatinine 5.8H, Estimat Glomerular Filtration Rate 10.9, Glucose Level 120H, Calcium Level 8.6 Height (Feet): 5 Height (Inches): 5.00 Weight (Pounds): 198 General Appearance: no apparent distress EENT: PERRL/EOMI Neck: normal alignment Cardiovascular: normal peripheral pulses Respiratory/Chest: no respiratory distress Abdomen: normal bowel sounds Diogenes Flores MD Sep 21, 2017 10:18
--- NOTE | 2017-09-21 13:04 | Neurology Progress Note ---
Interim History Interim History Interim History Mr. Stover feels well. He was sleeping when I javier to see him but could be easily aroused. He was getting agitated when people in the room were talking to his roommate as he could not comprehend if they were talking to him or someone else. The mind is clearer. He feels less confused. He however still gets agitated at times. He feels more energetic. He is less forgetful. His appetite is better. He is generally stronger. He has not been out of bed today. He denies any new neurologic symptoms. He specifically denies any weakness on one side or the other, numbness on one side or the other, problems with speech, problems with language, or problems with vision. Review of Systems Neuro Review of Systems Benign. Objective Physical Exam Last Vital Signs Date Time Temp Pulse Resp B/P (MAP) Pulse Ox O2 Delivery O2 Flow Rate FiO2 09/21/17 08:00 99.3 70 18 139/80 (99) 94 99.3 09/20/17 21:00 Room Air 09/14/17 20:33 4.0 21 Laboratory Tests Test 09/21/17 05:25 White Blood Count 13.5 K/UL (4.8-10.8) H Red Blood Count 2.33 M/UL (4.70-6.10) L Hemoglobin 7.6 G/DL (14.2-18.0) L Hematocrit 21.5 % (42.0-52.0) L Mean Corpuscular Volume 92 FL (80-99) Mean Corpuscular Hemoglobin 32.8 PG (27.0-31.0) H Mean Corpuscular Hemoglobin Concent 35.4 G/DL (32.0-36.0) Red Cell Distribution Width 11.7 % (11.6-14.8) Platelet Count 416 K/UL (150-450) Mean Platelet Volume 6.0 FL (6.5-10.1) L Neutrophils (%) (Auto) % (45.0-75.0) Lymphocytes (%) (Auto) % (20.0-45.0) Monocytes (%) (Auto) % (1.0-10.0) Eosinophils (%) (Auto) % (0.0-3.0) Basophils (%) (Auto) % (0.0-2.0) Differential Total Cells Counted 100 Neutrophils % (Manual) 82 % (45-75) H Lymphocytes % (Manual) 7 % (20-45) L Monocytes % (Manual) 11 % (1-10) H Eosinophils % (Manual) 0 % (0-3) Basophils % (Manual) 0 % (0-2) Band Neutrophils 0 % (0-8) Platelet Estimate Adequate Platelet Morphology Normal Sodium Level 145 MMOL/L (136-145) Potassium Level 3.5 MMOL/L (3.5-5.1) Chloride Level 107 MMOL/L (98-107) Carbon Dioxide Level 30 MMOL/L (21-32) Anion Gap 9 mmol/L (5-15) Blood Urea Nitrogen 55 mg/dL (7-18) H Creatinine 5.8 MG/DL (0.55-1.30) H Estimat Glomerular Filtration Rate 10.9 mL/min (>60) Glucose Level 120 MG/DL (74-106) H Calcium Level 8.6 MG/DL (8.5-10.1) Neurologic Exam Objective PHYSICAL EXAMINATION: GENERAL: He is a well-developed, well-nourished, gentleman, lying in bed. HEAD: Normocephalic and atraumatic. EENT: Examination benign. NECK: No neck rigidity was observed. NEUROLOGIC EXAMINATION: MENTAL STATUS EXAMINATION: He was awake and alert. He was oriented to self, and [facility] and September 21, 2017. He was able to recall 3/3 words immediately, and could remember them in 1 and 3 minutes. He was able to remember presidents Trump through [employer] with hints. His mathematical skills were minimally impaired. His visuospatial function was good. SPEECH: He had no dysarthria. LANGUAGE: He had a moderate anomia. CRANIAL NERVE EXAMINATION: II: The visual dinh were intact on confrontation testing. III, IV & : The external ocular movements were present. The pupils were 3 mm in diameter and reactive sluggishly to light. V: He had normal facial sensations and the temporales, masseters and pterygoids functioned well. VII: He had normal facial expressions and no facial asymmetry. VIII: He was able to hear well and had no nystagmus. IX: The palate moved symmetrically on phonation. X: He had no hoarseness of voice. XI: The sternocleidomastoids and trapezii functioned well. XII: The tongue was in the midline. MOTOR SYSTEM: The tone was normal in all four extremities. Examination of muscle mass revealed no focal wasting. Examination of power revealed G 5/5 power in all muscle groups except for G 0/5 in the right ankle dorsiflexors, toe extensors, ankle plantar flexors and toe flexors, G 5-/5 in the left ankle dorsiflexors and toe extensors, and G 4/5 in the iliopsoas muscle bilaterally. SENSORY EXAMINATION: He had altered sensations in the right peroneal distribution. REFLEXES: Trace+ and bilaterally symmetrical at the biceps, triceps, brachioradialis, and knees, 0 at both ankles. The plantar responses were flexor bilaterally. COORDINATION: He performed well on finger to nose testing. STANCE & GAIT: Could not be tested. Impression/Recommendations Diagnostic Impression 1. Mr. Enoch Stover is a 37-year-old, gentleman, of unknown handedness, who was found unconscious in a hotel room on 08/29/2017 after he had used multiple drugs. He was found to be possibly febrile, hypoglycemic, and breathing rapidly. Since then, he has been hospitalized and treated for sepsis. 2. He feels well. He was sleeping when I when to see him but could be easily aroused. He was getting agitated when people in the room were talking to his roommate as he could not comprehend if they were talking to him or someone else. The mind is clearer. He feels less confused. He however still gets agitated at times. He feels more energetic. He is less forgetful. His appetite is better. He is generally stronger. He has not been out of bed today. He denies any new neurologic symptoms. He specifically denies any weakness on one side or the other, numbness on one side or the other, problems with speech, problems with language, or problems with vision. 3. On neurological examination, at this time, he is awake and alert. He is fully oriented. His problems with recent and remote memory are significantly better. His speech is normal. He has a moderate anomia. His cranial nerves are functioning normally. His motor function is relatively good he however has mild proximal lower extremity weakness, and mild distal left lower extremity weakness with no movement in the right ankle and toes. His sensations are altered in the right peroneal distribution. His deep tendon reflexes are diminished but his plantar responses are flexor. He also does not demonstrate any definite focal or lateralizing neurological findings. 4. The CT scan of the brain performed on 08/29/2017 and repeated on 09/04/17 is benign for acute pathology. 5. Laboratory data obtained thus far revealed, on admission, his hemoglobin was elevated to 18.4, his WBC was normal at 8,500, but since then his WBCs have peaked to 17,200. His chemistry panel on admission revealed BUN elevated to 31 , creatinine elevated to 3.6, lactic acid elevated to 5.5, bilirubin elevated at 1.2, AST elevated at 478, ALT elevated to 159, CK elevated to greater than 10 ,000, troponin elevated at 1.01, BNP elevated to 2143. His urine toxicology screen was positive for opiates, amphetamines, cocaine, and marijuana. His INR was elevated at 1.2. His TSH is elevated at 4.72. The T3 is low but the T4 is normal. 6. The patient's history, neurological examination, laboratory data, and imaging studies are most compatible with an altered mental state due to a toxic metabolic encephalopathy. 7. The most likely etiology for the encephalopathy is the sepsis, possibly a period of hypoglycemia and ongoing multiple metabolic imbalances and the toxic imbalances. In addition the use of mind-altering drugs could have also been contributing. 8. His encephalopathy is still waxing and waning but is better today. 9. He has also developed bilateral mild proximal lower extremity weakness, and in addition severe right distal lower extremity weakness with severe right peroneal and tibial nerve dysfunction. His sensations are also altered in the right peroneal distribution. Recommendations 1. Continue present management. 2. Continue aggressive treatment of the patient's infectious process. 3. Aggressive management of toxic/metabolic imbalances. 4. AFO for right foot drop. 5. PT/OT. 6. Observe closely. Chris Gomez M.D., M.S.Isabela.Luz. CHRIS GOMEZ Sep 21, 2017 13:04
--- NOTE | 2017-09-21 16:39 | Nephrology Progress Note ---
Assessment/Plan Assessment 1. Acute rhabdomyolysis yesterday rivera cath was placed had more than 3000 ml of urine out continue to have good urine out put 2. Hypocalcemia. 3. Hyperkalemia. 4. Lactic acidosis. 5. Shock liver. 6. History of multiple drug use. Plan hold dialysis monitoring renal function monitoring out put Subjective Constitutional: Reports: no symptoms HEENT: Reports: no symptoms Subjective alert and awake Objective Objective Last 24 Hour Vital Signs Date Time Temp Pulse Resp B/P (MAP) Pulse Ox O2 Delivery O2 Flow Rate FiO2 09/21/17 16:00 99.1 56 18 144/77 (99) 95 99.1 09/21/17 14:07 138/78 09/21/17 12:00 99.2 68 20 138/78 (98) 96 99.2 09/21/17 09:00 Room Air 09/21/17 08:00 99.3 70 18 139/80 (99) 94 99.3 09/21/17 04:00 97.2 56 19 147/85 (105) 97 97.2 09/21/17 02:09 136/81 09/21/17 00:00 98.5 62 19 136/81 (99) 95 98.5 09/20/17 21:00 Room Air 09/20/17 20:00 98.0 73 19 150/88 (108) 97 98.0 09/20/17 18:00 120/65 Intake and Output 09/20/17 09/21/17 19:00 07:00 Intake Total 330 ml Output Total 2700 ml 5775 ml Balance -2370 ml -5775 ml Intake Oral 330 ml Output Urine Total 2700 ml 5775 ml Laboratory Tests 09/21/17 05:25: White Blood Count 13.5H, Red Blood Count 2.33L, Hemoglobin 7.6L, Hematocrit 21.5L, Mean Corpuscular Volume 92, Mean Corpuscular Hemoglobin 32.8H, Mean Corpuscular Hemoglobin Concent 35.4, Red Cell Distribution Width 11.7, Platelet Count 416, Mean Platelet Volume 6.0L, Neutrophils (%) (Auto) , Lymphocytes (%) ( Auto) , Monocytes (%) (Auto) , Eosinophils (%) (Auto) , Basophils (%) (Auto) , Differential Total Cells Counted 100, Neutrophils % (Manual) 82H, Lymphocytes % (Manual) 7L, Monocytes % (Manual) 11H, Eosinophils % (Manual) 0, Basophils % ( Manual) 0, Band Neutrophils 0, Platelet Estimate Adequate, Platelet Morphology Normal, Sodium Level 145, Potassium Level 3.5, Chloride Level 107, Carbon Dioxide Level 30, Anion Gap 9, Blood Urea Nitrogen 55H, Creatinine 5.8H, Estimat Glomerular Filtration Rate 10.9, Glucose Level 120H, Calcium Level 8.6 Height (Feet): 5 Height (Inches): 5.00 Weight (Pounds): 198 Objective HEAD AND NECK: No JVP. No LAD. G-tube is in place. Head is atraumatic and normocephalic. LUNGS: He has decreased breathing sounds on the both sides. CARDIAC: Regular rate and rhythm. S1 and S2. No murmur. No rub. ABDOMEN: Soft. Bowel sounds positive. EXTREMITIES: No edema. No clubbing. No cyanosis. Aixa Veloz MD Sep 21, 2017 16:38
[2017-09-21] MEDS: Micafungin 100 MG in NS 110 ML IVPB SCH ×2 (17:22→18:27)
--- NOTE | 2017-09-21 17:22 | Cardiology Progress Note ---
Assessment/Plan Assessment/Plan 1. Sepsis, no evidence of infective endocarditis. No bacteremia. Continue IV ABx per ID recs. 2. LUCRECIA, on HD. 3. Shock liver, resolved. 4. Acute pancreatitis with systemic inflammatory response disease, downtrending lipase. 5. Elevated troponin I level likely due to myocarditis, sepsis, or due to shock. 6. Sinus tachycardia, resolved, continue hydration. 7. Toxic metabolic encephalopathy Subjective Subjective No chest pain or SOB. Objective Last 24 Hour Vital Signs Date Time Temp Pulse Resp B/P (MAP) Pulse Ox O2 Delivery O2 Flow Rate FiO2 09/21/17 16:00 99.1 56 18 144/77 (99) 95 99.1 09/21/17 14:07 138/78 09/21/17 12:00 99.2 68 20 138/78 (98) 96 99.2 09/21/17 09:00 Room Air 09/21/17 08:00 99.3 70 18 139/80 (99) 94 99.3 09/21/17 04:00 97.2 56 19 147/85 (105) 97 97.2 09/21/17 02:09 136/81 09/21/17 00:00 98.5 62 19 136/81 (99) 95 98.5 09/20/17 21:00 Room Air 09/20/17 20:00 98.0 73 19 150/88 (108) 97 98.0 09/20/17 18:00 120/65 Intake and Output 09/20/17 09/21/17 19:00 07:00 Intake Total 330 ml Output Total 2700 ml 5775 ml Balance -2370 ml -5775 ml Intake Oral 330 ml Output Urine Total 2700 ml 5775 ml 2D Echo: KATELYN: Nl LV systolic & diastolic function, Mild MR, No vegetations, Nl RVSP Laboratory Tests Test 09/21/17 05:25 White Blood Count 13.5 K/UL (4.8-10.8) H Red Blood Count 2.33 M/UL (4.70-6.10) L Hemoglobin 7.6 G/DL (14.2-18.0) L Hematocrit 21.5 % (42.0-52.0) L Mean Corpuscular Volume 92 FL (80-99) Mean Corpuscular Hemoglobin 32.8 PG (27.0-31.0) H Mean Corpuscular Hemoglobin Concent 35.4 G/DL (32.0-36.0) Red Cell Distribution Width 11.7 % (11.6-14.8) Platelet Count 416 K/UL (150-450) Mean Platelet Volume 6.0 FL (6.5-10.1) L Neutrophils (%) (Auto) % (45.0-75.0) Lymphocytes (%) (Auto) % (20.0-45.0) Monocytes (%) (Auto) % (1.0-10.0) Eosinophils (%) (Auto) % (0.0-3.0) Basophils (%) (Auto) % (0.0-2.0) Differential Total Cells Counted 100 Neutrophils % (Manual) 82 % (45-75) H Lymphocytes % (Manual) 7 % (20-45) L Monocytes % (Manual) 11 % (1-10) H Eosinophils % (Manual) 0 % (0-3) Basophils % (Manual) 0 % (0-2) Band Neutrophils 0 % (0-8) Platelet Estimate Adequate Platelet Morphology Normal Sodium Level 145 MMOL/L (136-145) Potassium Level 3.5 MMOL/L (3.5-5.1) Chloride Level 107 MMOL/L (98-107) Carbon Dioxide Level 30 MMOL/L (21-32) Anion Gap 9 mmol/L (5-15) Blood Urea Nitrogen 55 mg/dL (7-18) H Creatinine 5.8 MG/DL (0.55-1.30) H Estimat Glomerular Filtration Rate 10.9 mL/min (>60) Glucose Level 120 MG/DL (74-106) H Calcium Level 8.6 MG/DL (8.5-10.1) Microbiology Date/Time Source Procedure Growth Status 09/20/17 16:20 Indwelling Cath Urine Culture - Preliminary NO GROWTH Resulted Objective HEENT: Atraumatic and normocephalic. Pupils are equal, round, and reactive to light and accommodation. Scleral injection in both eyes. Dry mucosal membranes. NECK: JVP cannot be assessed. CVS: Normal S1, S2. Cannot appreciate any murmurs, gallops, or rubs. LUNGS: Clear to auscultation bilaterally. ABDOMEN: Soft, nontender, and nondistended. No hepatosplenomegaly. Positive bowel sounds. EXTREMITIES: No evidence of edema, clubbing, or cyanosis. Right lower extremity with decrease in both motor and sensory function. Jorge Mcdonough MD Sep 21, 2017 17:22
[2017-09-21] MEDS: Meropenem 500mg/NS 55ml IVPB SCH ×2 (17:24)
[2017-09-21] MEDS: Dyna-Hex 2% Top Sol 2oz TOPIC SCH (20:56)
[2017-09-21] MEDS: Tamsulosin 0.4mg cap ORAL SCH (20:57)
[2017-09-21] MEDS ORDERED: NS 275ml ONE (21:11)
[2017-09-21] MEDS ORDERED: Tubing IV Secondary IV ONE (21:11)
[2017-09-21] MEDS ORDERED: Tubing Blood Filter IV ONE (21:11)
[2017-09-22] VITALS: BP 158/95
[2017-09-22 04:00] VITALS: BP 139/83
[2017-09-22 06:56] LABS: HEMATOCRIT 22.1 % (42.0-52.0); HEMOGLOBIN 7.4 G/DL (14.2-18.0); MEAN CORPUSCULAR VOLUME 93 FL (80-99); PLATELET COUNT 415 K/UL (150-450); RED BLOOD COUNT 2.37 M/UL (4.70-6.10); RED CELL DISTRIBUTION WIDTH 11.6 % (11.6-14.8); WHITE BLOOD COUNT 14.5 K/UL (4.8-10.8)
[2017-09-22 07:07] LABS: ALANINE AMINOTRANSFERASE 26 U/L (12-78); ALBUMIN 2.3 G/DL (3.4-5.0); ALBUMIN/GLOBULIN RATIO 0.5 (1.0-2.7); ALKALINE PHOSPHATASE 65 U/L (46-116); ANION GAP 12 mmol/L (5-15); ASPARTATE AMINO TRANSFERASE 34 U/L (15-37); BILIRUBIN,TOTAL 0.6 MG/DL (0.2-1.0); BLOOD UREA NITROGEN 44 mg/dL (7-18); CALCIUM 8.7 MG/DL (8.5-10.1); CARBON DIOXIDE 28 MMOL/L (21-32); CHLORIDE 107 MMOL/L (98-107); CREATININE 3.7 MG/DL (0.55-1.30); POTASSIUM 2.9 MMOL/L (3.5-5.1); SODIUM 147 MMOL/L (136-145)
[2017-09-22] MEDS: Aluminum Hydroxide Gel Susp 15ml ORAL SCH ×3 (07:24→23:07)
[2017-09-22 08:00] VITALS: BP 143/85
[2017-09-22] MEDS: Heparin 5000 units/ml inj SUBQ SCH ×2 (08:43→20:32)
[2017-09-22] MEDS: Docusate 100mg cap ORAL SCH ×3 (08:49→17:33)
--- NOTE | 2017-09-22 08:58 | General Progress Note ---
Assessment/Plan Problem List: (1) Substance abuse ICD Codes: F19.10 - Other psychoactive substance abuse, uncomplicated SNOMED: 13589438 (2) Respiratory failure ICD Codes: J96.90 - Respiratory failure, unspecified, unspecified whether with hypoxia or hypercapnia SNOMED: 598104047 Qualifiers: Qualified Codes: J96.01 - Acute respiratory failure with hypoxia (3) Rhabdomyolysis ICD Codes: M62.82 - Rhabdomyolysis SNOMED: 054212776 Qualifiers: Qualified Codes: T79.6XXA - Traumatic ischemia of muscle, initial encounter (4) NSTEMI (non-ST elevated myocardial infarction) ICD Codes: I21.4 - Non-ST elevation (NSTEMI) myocardial infarction SNOMED: 516598600 (5) LUCRECIA (acute kidney injury) ICD Codes: N17.9 - Acute kidney failure, unspecified SNOMED: 93305874 Status: stable, progressing Assessment/Plan ot pt diet abx neuro psyc eval cbc bmp am aru eval Subjective Constitutional: Reports: weakness Allergies: Coded Allergies: NO KNOWN ALLERGIES (Verified Allergy, Unknown, 09/02/17) All Systems: reviewed and negative except above Subjective calm in bed sleepy Objective Last 24 Hour Vital Signs Date Time Temp Pulse Resp B/P (MAP) Pulse Ox O2 Delivery O2 Flow Rate FiO2 09/22/17 08:42 101.5 09/22/17 08:00 101.5 56 18 143/85 (104) 98 101.5 09/22/17 04:00 98.6 57 20 139/83 (101) 97 98.6 09/22/17 00:00 98.4 53 20 158/95 (116) 98 98.4 09/21/17 21:57 99.0 09/21/17 21:00 Room Air 09/21/17 20:58 100.4 09/21/17 20:00 100.4 54 18 148/86 (106) 94 100.4 09/21/17 18:25 52 148/88 (108) 96 09/21/17 18:00 148/88 09/21/17 16:00 99.1 56 18 144/77 (99) 95 99.1 09/21/17 14:07 138/78 09/21/17 12:00 99.2 68 20 138/78 (98) 96 99.2 09/21/17 09:00 Room Air Intake and Output 09/21/17 09/22/17 19:00 07:00 Intake Total 55 ml Output Total 2900 ml 2050 ml Balance -2845 ml -2050 ml IV Total 55 ml Output Urine Total 2900 ml 2050 ml # Bowel Movements 2 2 Laboratory Tests 09/22/17 05:50: White Blood Count 14.5H, Red Blood Count 2.37L, Hemoglobin 7.4L, Hematocrit 22.1L, Mean Corpuscular Volume 93, Mean Corpuscular Hemoglobin 31.5H, Mean Corpuscular Hemoglobin Concent 33.7, Red Cell Distribution Width 11.6, Platelet Count 415, Mean Platelet Volume 6.1L, Neutrophils (%) (Auto) , Lymphocytes (%) ( Auto) , Monocytes (%) (Auto) , Eosinophils (%) (Auto) , Basophils (%) (Auto) , Neutrophils % (Manual) [Pending], Lymphocytes % (Manual) [Pending], Platelet Estimate [Pending], Platelet Morphology [Pending], Sodium Level 147H, Potassium Level 2.9L, Chloride Level 107, Carbon Dioxide Level 28, Anion Gap 12, Blood Urea Nitrogen 44H, Creatinine 3.7H, Estimat Glomerular Filtration Rate 18.4, Glucose Level 110H, Calcium Level 8.7, Total Bilirubin 0.6, Aspartate Amino Transf (AST/SGOT) 34, Alanine Aminotransferase (ALT/SGPT) 26, Alkaline Phosphatase 65, Total Protein 7.0, Albumin 2.3L, Globulin 4.7, Albumin/Globulin Ratio 0.5L Height (Feet): 5 Height (Inches): 5.00 Weight (Pounds): 196 General Appearance: lethargic EENT: normal ENT inspection Neck: normal alignment Cardiovascular: normal peripheral pulses, normal rate, regular rhythm Respiratory/Chest: chest wall non-tender, lungs clear, normal breath sounds Abdomen: normal bowel sounds, non tender, soft Extremities: normal inspection Edema: no edema noted Arm (L), no edema noted Arm (R), no edema noted Leg (L), no edema noted Leg (R), no edema noted Pedal (L), no edema noted Pedal (R), no edema noted Generalized Neurologic: motor weakness Skin: normal pigmentation, warm/dry Reid Anaya DO Sep 22, 2017 08:58
--- NOTE | 2017-09-22 09:50 | General Progress Note ---
Assessment/Plan Status: unchanged Assessment/Plan # Anemia of chronic disease. Anemia w/u has been reviewed. Will trend CBC daily. --> Continue to closely monitor for stability. --> Ferritin and tibc reviewed, consistent with anemia of chronic disease --> Hgb goal above >7 --> 09/15 1 unit PRBC, 09/19: 1 unit, --> 09/22: Hgb at 7.4 --> given elev Cr, will start low dose epogen once a week dosing # Leukocytosis. due to infection, however no source is found --> Closely monitor for improvement. --> 09/22: WBC 14.5, IMPROVING --> Currently on IV abx. --> 09/22: fever of 101.5 # Thrombocytosis. Likely reactive process to anemia --> Closely monitor PLT count for improvement. --> should improve with improvement in anemia as well --> 09/22: PLT count of 415, wnl # Transaminitis. Trending downwards. The time the note was entered does not necessarily correspond to the time the patient was seen. Subjective Date patient seen: Sep 22, 2017 ROS Limited/Unobtainable: Yes Constitutional: Reports: fever Hematologic/Lymphatic: Reports: anemia Allergies: Coded Allergies: NO KNOWN ALLERGIES (Verified Allergy, Unknown, 09/02/17) All Systems: reviewed and negative except above Subjective Pt awake and alert. WBC improving. Pt febrile with temp of 101.5. Bradycardia. Hgb of 7.4, no new orders. Objective Last 24 Hour Vital Signs Date Time Temp Pulse Resp B/P (MAP) Pulse Ox O2 Delivery O2 Flow Rate FiO2 09/22/17 08:42 101.5 09/22/17 08:00 101.5 56 18 143/85 (104) 98 101.5 09/22/17 04:00 98.6 57 20 139/83 (101) 97 98.6 09/22/17 00:00 98.4 53 20 158/95 (116) 98 98.4 09/21/17 21:57 99.0 09/21/17 21:00 Room Air 09/21/17 20:58 100.4 09/21/17 20:00 100.4 54 18 148/86 (106) 94 100.4 09/21/17 18:25 52 148/88 (108) 96 09/21/17 18:00 148/88 09/21/17 16:00 99.1 56 18 144/77 (99) 95 99.1 09/21/17 14:07 138/78 09/21/17 12:00 99.2 68 20 138/78 (98) 96 99.2 Intake and Output 09/21/17 09/22/17 19:00 07:00 Intake Total 55 ml Output Total 2900 ml 2050 ml Balance -2845 ml -2050 ml IV Total 55 ml Output Urine Total 2900 ml 2050 ml # Bowel Movements 2 2 Laboratory Tests 09/22/17 05:50: White Blood Count 14.5H, Red Blood Count 2.37L, Hemoglobin 7.4L, Hematocrit 22.1L, Mean Corpuscular Volume 93, Mean Corpuscular Hemoglobin 31.5H, Mean Corpuscular Hemoglobin Concent 33.7, Red Cell Distribution Width 11.6, Platelet Count 415, Mean Platelet Volume 6.1L, Neutrophils (%) (Auto) , Lymphocytes (%) ( Auto) , Monocytes (%) (Auto) , Eosinophils (%) (Auto) , Basophils (%) (Auto) , Differential Total Cells Counted 100, Neutrophils % (Manual) 80H, Lymphocytes % (Manual) 10L, Monocytes % (Manual) 9, Eosinophils % (Manual) 1, Basophils % ( Manual) 0, Band Neutrophils 0, Platelet Estimate Adequate, Platelet Morphology Normal, Hypochromasia 1+, Sodium Level 147H, Potassium Level 2.9L, Chloride Level 107, Carbon Dioxide Level 28, Anion Gap 12, Blood Urea Nitrogen 44H, Creatinine 3.7H, Estimat Glomerular Filtration Rate 18.4, Glucose Level 110H, Calcium Level 8.7, Total Bilirubin 0.6, Aspartate Amino Transf (AST/SGOT) 34, Alanine Aminotransferase (ALT/SGPT) 26, Alkaline Phosphatase 65, Total Protein 7.0, Albumin 2.3L, Globulin 4.7, Albumin/Globulin Ratio 0.5L Height (Feet): 5 Height (Inches): 5.00 Weight (Pounds): 196 General Appearance: no apparent distress EENT: PERRL/EOMI Neck: normal alignment Cardiovascular: bradycardia Respiratory/Chest: no respiratory distress Abdomen: soft Diogenes Flores MD Sep 22, 2017 09:50
[2017-09-22 12:00] VITALS: BP 137/80
--- NOTE | 2017-09-22 12:21 | Neurology Progress Note ---
Interim History Interim History Interim History Mr. Stover feels better. He was awake and alert. The mind is clearer. He feels less confused. He still gets agitated at times. He feels more energetic. He is less forgetful. His appetite is better. He is generally stronger. He says he stood up and took a few steps today. He denies any new neurologic symptoms. He specifically denies any increased weakness on one side or the other, numbness on one side or the other, problems with speech, problems with language , or problems with vision. Review of Systems Neuro Review of Systems Benign. Review of Systems Neuro Review of Systems Benign. Objective Physical Exam Last Vital Signs Date Time Temp Pulse Resp B/P (MAP) Pulse Ox O2 Delivery O2 Flow Rate FiO2 09/22/17 10:00 143/85 09/22/17 09:41 98.2 09/22/17 08:00 56 18 98 09/21/17 21:00 Room Air 09/14/17 20:33 4.0 21 Laboratory Tests Test 09/22/17 05:50 White Blood Count 14.5 K/UL (4.8-10.8) H Red Blood Count 2.37 M/UL (4.70-6.10) L Hemoglobin 7.4 G/DL (14.2-18.0) L Hematocrit 22.1 % (42.0-52.0) L Mean Corpuscular Volume 93 FL (80-99) Mean Corpuscular Hemoglobin 31.5 PG (27.0-31.0) H Mean Corpuscular Hemoglobin Concent 33.7 G/DL (32.0-36.0) Red Cell Distribution Width 11.6 % (11.6-14.8) Platelet Count 415 K/UL (150-450) Mean Platelet Volume 6.1 FL (6.5-10.1) L Neutrophils (%) (Auto) % (45.0-75.0) Lymphocytes (%) (Auto) % (20.0-45.0) Monocytes (%) (Auto) % (1.0-10.0) Eosinophils (%) (Auto) % (0.0-3.0) Basophils (%) (Auto) % (0.0-2.0) Differential Total Cells Counted 100 Neutrophils % (Manual) 80 % (45-75) H Lymphocytes % (Manual) 10 % (20-45) L Monocytes % (Manual) 9 % (1-10) Eosinophils % (Manual) 1 % (0-3) Basophils % (Manual) 0 % (0-2) Band Neutrophils 0 % (0-8) Platelet Estimate Adequate Platelet Morphology Normal Hypochromasia 1+ Sodium Level 147 MMOL/L (136-145) H Potassium Level 2.9 MMOL/L (3.5-5.1) L Chloride Level 107 MMOL/L (98-107) Carbon Dioxide Level 28 MMOL/L (21-32) Anion Gap 12 mmol/L (5-15) Blood Urea Nitrogen 44 mg/dL (7-18) H Creatinine 3.7 MG/DL (0.55-1.30) H Estimat Glomerular Filtration Rate 18.4 mL/min (>60) Glucose Level 110 MG/DL (74-106) H Calcium Level 8.7 MG/DL (8.5-10.1) Total Bilirubin 0.6 MG/DL (0.2-1.0) Aspartate Amino Transf (AST/SGOT) 34 U/L (15-37) Alanine Aminotransferase (ALT/SGPT) 26 U/L (12-78) Alkaline Phosphatase 65 U/L (46-116) Total Protein 7.0 G/DL (6.4-8.2) Albumin 2.3 G/DL (3.4-5.0) L Globulin 4.7 g/dL Albumin/Globulin Ratio 0.5 (1.0-2.7) L Neurologic Exam Objective PHYSICAL EXAMINATION: GENERAL: He is a well-developed, well-nourished, gentleman, lying in bed. HEAD: Normocephalic and atraumatic. EENT: Examination benign. NECK: No neck rigidity was observed. NEUROLOGIC EXAMINATION: MENTAL STATUS EXAMINATION: He was awake and alert. He was oriented to self, and [facility] and September 22, 2017. He was able to recall 3/3 words immediately, but could only remember 2/3 in 1 and 3 minutes. He was able to remember presidents Trump through [employer]. His mathematical skills were minimally impaired. His visuospatial function was good. SPEECH: He had no dysarthria. LANGUAGE: He had a moderate anomia. CRANIAL NERVE EXAMINATION: II: The visual dinh were intact on confrontation testing. III, IV & : The external ocular movements were present. The pupils were 3 mm in diameter and reactive sluggishly to light. V: He had normal facial sensations and the temporales, masseters and pterygoids functioned well. VII: He had normal facial expressions and no facial asymmetry. VIII: He was able to hear well and had no nystagmus. IX: The palate moved symmetrically on phonation. X: He had no hoarseness of voice. XI: The sternocleidomastoids and trapezii functioned well. XII: The tongue was in the midline. MOTOR SYSTEM: The tone was normal in all four extremities. Examination of muscle mass revealed no focal wasting. Examination of power revealed G 5/5 power in all muscle groups except for G 0/5 in the right ankle dorsiflexors, toe extensors, ankle plantar flexors and toe flexors, G 5-/5 in the left ankle dorsiflexors and toe extensors, and G 4/5 in the iliopsoas muscle bilaterally. SENSORY EXAMINATION: He had altered sensations in the right peroneal distribution. REFLEXES: Trace+ and bilaterally symmetrical at the biceps, triceps, brachioradialis, and knees, 0 at both ankles. The plantar responses were flexor bilaterally. COORDINATION: He performed well on finger to nose testing. STANCE & GAIT: Could not be tested. Impression/Recommendations Diagnostic Impression 1. Mr. Enoch Stover is a 37-year-old, gentleman, of unknown handedness, who was found unconscious in a hotel room on 08/29/2017 after he had used multiple drugs. He was found to be possibly febrile, hypoglycemic, and breathing rapidly. Since then, he has been hospitalized and treated for sepsis. 2. He feels better. He was awake and alert. The mind is clearer. He feels less confused. He still gets agitated at times. He feels more energetic. He is less forgetful. His appetite is better. He is generally stronger. He says he stood up and took a few steps today. He denies any new neurologic symptoms. 3. On neurological examination, at this time, he is awake and alert. He is fully oriented. He has mild problems with memory. His speech is normal. He has a mild anomia. His cranial nerves are functioning normally. His motor function is relatively good he however has mild proximal lower extremity weakness, and mild distal left lower extremity weakness with no movement in the right ankle and toes. His sensations are altered in the right peroneal distribution. His deep tendon reflexes are diminished but his plantar responses are flexor. He also does not demonstrate any definite focal or lateralizing neurological findings. 4. The CT scan of the brain performed on 08/29/2017 and repeated on 09/04/17 is benign for acute pathology. 5. Laboratory data obtained thus far revealed, on admission, his hemoglobin was elevated to 18.4, his WBC was normal at 8,500, but since then his WBCs have peaked to 17,200. His chemistry panel on admission revealed BUN elevated to 31 , creatinine elevated to 3.6, lactic acid elevated to 5.5, bilirubin elevated at 1.2, AST elevated at 478, ALT elevated to 159, CK elevated to greater than 10 ,000, troponin elevated at 1.01, BNP elevated to 2143. His urine toxicology screen was positive for opiates, amphetamines, cocaine, and marijuana. His INR was elevated at 1.2. His TSH is elevated at 4.72. The T3 is low but the T4 is normal. 6. The patient's history, neurological examination, laboratory data, and imaging studies are most compatible with an altered mental state due to a toxic metabolic encephalopathy. 7. The most likely etiology for the encephalopathy is the sepsis, possibly a period of hypoglycemia and ongoing multiple metabolic imbalances and the toxic imbalances. In addition the use of mind-altering drugs could have also been contributing. 8. His encephalopathy is still waxing and waning but is better today. 9. He has also developed bilateral mild proximal lower extremity weakness, and in addition severe right distal lower extremity weakness with severe right peroneal and tibial nerve dysfunction. His sensations are also altered in the right peroneal distribution. Recommendations 1. Continue present management. 2. Continue aggressive treatment of the patient's infectious process. 3. Aggressive management of toxic/metabolic imbalances. 4. AFO for right foot drop. 5. PT/OT. 6. Observe closely. Chris Ricketts M.D., M.S.P.CHRIS GARDINER Sep 22, 2017 12:21
--- NOTE | 2017-09-22 12:27 | Nephrology Progress Note ---
Assessment/Plan Assessment 1. Acute rhabdomyolysis yesterday rivera cath was placed had more than 3000 ml of urine out continue to have good urine out put 2. Hypocalcemia. 3. Hypokalemia Plan hold dialysis monitoring renal function monitoring out put Subjective Constitutional: Reports: no symptoms Subjective alert and awake continue to have good urine out put Objective Objective Last 24 Hour Vital Signs Date Time Temp Pulse Resp B/P (MAP) Pulse Ox O2 Delivery O2 Flow Rate FiO2 09/22/17 10:00 143/85 09/22/17 09:41 98.2 09/22/17 09:00 98.2 98.2 09/22/17 08:42 101.5 09/22/17 08:00 101.5 56 18 143/85 (104) 98 101.5 09/22/17 04:00 98.6 57 20 139/83 (101) 97 98.6 09/22/17 00:00 98.4 53 20 158/95 (116) 98 98.4 09/21/17 21:00 Room Air 09/21/17 20:58 100.4 09/21/17 20:00 100.4 54 18 148/86 (106) 94 100.4 09/21/17 18:25 52 148/88 (108) 96 09/21/17 18:00 148/88 09/21/17 16:00 99.1 56 18 144/77 (99) 95 99.1 09/21/17 14:07 138/78 Intake and Output 09/21/17 09/22/17 19:00 07:00 Intake Total 55 ml Output Total 2900 ml 2050 ml Balance -2845 ml -2050 ml IV Total 55 ml Output Urine Total 2900 ml 2050 ml # Bowel Movements 2 2 Laboratory Tests 09/22/17 05:50: White Blood Count 14.5H, Red Blood Count 2.37L, Hemoglobin 7.4L, Hematocrit 22.1L, Mean Corpuscular Volume 93, Mean Corpuscular Hemoglobin 31.5H, Mean Corpuscular Hemoglobin Concent 33.7, Red Cell Distribution Width 11.6, Platelet Count 415, Mean Platelet Volume 6.1L, Neutrophils (%) (Auto) , Lymphocytes (%) ( Auto) , Monocytes (%) (Auto) , Eosinophils (%) (Auto) , Basophils (%) (Auto) , Differential Total Cells Counted 100, Neutrophils % (Manual) 80H, Lymphocytes % (Manual) 10L, Monocytes % (Manual) 9, Eosinophils % (Manual) 1, Basophils % ( Manual) 0, Band Neutrophils 0, Platelet Estimate Adequate, Platelet Morphology Normal, Hypochromasia 1+, Sodium Level 147H, Potassium Level 2.9L, Chloride Level 107, Carbon Dioxide Level 28, Anion Gap 12, Blood Urea Nitrogen 44H, Creatinine 3.7H, Estimat Glomerular Filtration Rate 18.4, Glucose Level 110H, Calcium Level 8.7, Total Bilirubin 0.6, Aspartate Amino Transf (AST/SGOT) 34, Alanine Aminotransferase (ALT/SGPT) 26, Alkaline Phosphatase 65, Total Protein 7.0, Albumin 2.3L, Globulin 4.7, Albumin/Globulin Ratio 0.5L Height (Feet): 5 Height (Inches): 5.00 Weight (Pounds): 196 Objective HEAD AND NECK: No JVP. No LAD. G-tube is in place. Head is atraumatic and normocephalic. LUNGS: He has decreased breathing sounds on the both sides. CARDIAC: Regular rate and rhythm. S1 and S2. No murmur. No rub. ABDOMEN: Soft. Bowel sounds positive. EXTREMITIES: No edema. No clubbing. No cyanosis. Aixa Veloz MD Sep 22, 2017 12:27
[2017-09-22 16:00] VITALS: BP 150/96
[2017-09-22] MEDS: Meropenem 500mg/NS 55ml IVPB SCH ×2 (16:13)
[2017-09-22] MEDS: Micafungin 100 MG in NS 110 ML IVPB SCH (18:16)
[2017-09-22] MEDS: DAPTOmycin 550 MG in NS 55 ML IV SCH (18:56)
[2017-09-22] MEDS: Dyna-Hex 2% Top Sol 2oz TOPIC SCH (20:00)
[2017-09-22 20:13] VITALS: BP 150/95
[2017-09-22] MEDS: Tamsulosin 0.4mg cap ORAL SCH (20:30)
--- NOTE | 2017-09-22 23:06 | Cardiology Progress Note ---
Assessment/Plan Assessment/Plan 1. Sepsis, Continue IV ABx per ID recs. 2. Elevated troponin I level likely due to myocarditis, sepsis, or due to shock. Continue conservative management. 3. Sinus tachycardia, resolved, continue hydration. 4. HTN, start amlodipine 2.5mg daily. 5. Acute pancreatitis with systemic inflammatory response disease. 6. LUCRCEIA, on HD. 7. Shock liver, resolved. 8. Toxic metabolic encephalopathy Subjective Subjective No chest pain or SOB. Objective Last 24 Hour Vital Signs Date Time Temp Pulse Resp B/P (MAP) Pulse Ox O2 Delivery O2 Flow Rate FiO2 09/22/17 20:13 99.9 61 18 150/95 (113) 96 99.9 09/22/17 17:32 150/96 09/22/17 16:00 98.2 64 18 150/96 (114) 95 98.2 09/22/17 12:00 98.2 67 18 137/80 (99) 97 98.2 09/22/17 10:00 143/85 09/22/17 09:41 98.2 09/22/17 09:00 98.2 98.2 09/22/17 08:42 101.5 09/22/17 08:00 101.5 56 18 143/85 (104) 98 101.5 09/22/17 04:00 98.6 57 20 139/83 (101) 97 98.6 09/22/17 00:00 98.4 53 20 158/95 (116) 98 98.4 Intake and Output 09/21/17 09/22/17 19:00 07:00 Intake Total 55 ml Output Total 2900 ml 2050 ml Balance -2845 ml -2050 ml IV Total 55 ml Output Urine Total 2900 ml 2050 ml # Bowel Movements 2 2 2D Echo: KATELYN: Nl LV systolic & diastolic function, Mild MR, No vegetations, Nl RVSP Laboratory Tests Test 09/22/17 05:50 White Blood Count 14.5 K/UL (4.8-10.8) H Red Blood Count 2.37 M/UL (4.70-6.10) L Hemoglobin 7.4 G/DL (14.2-18.0) L Hematocrit 22.1 % (42.0-52.0) L Mean Corpuscular Volume 93 FL (80-99) Mean Corpuscular Hemoglobin 31.5 PG (27.0-31.0) H Mean Corpuscular Hemoglobin Concent 33.7 G/DL (32.0-36.0) Red Cell Distribution Width 11.6 % (11.6-14.8) Platelet Count 415 K/UL (150-450) Mean Platelet Volume 6.1 FL (6.5-10.1) L Neutrophils (%) (Auto) % (45.0-75.0) Lymphocytes (%) (Auto) % (20.0-45.0) Monocytes (%) (Auto) % (1.0-10.0) Eosinophils (%) (Auto) % (0.0-3.0) Basophils (%) (Auto) % (0.0-2.0) Differential Total Cells Counted 100 Neutrophils % (Manual) 80 % (45-75) H Lymphocytes % (Manual) 10 % (20-45) L Monocytes % (Manual) 9 % (1-10) Eosinophils % (Manual) 1 % (0-3) Basophils % (Manual) 0 % (0-2) Band Neutrophils 0 % (0-8) Platelet Estimate Adequate Platelet Morphology Normal Hypochromasia 1+ Sodium Level 147 MMOL/L (136-145) H Potassium Level 2.9 MMOL/L (3.5-5.1) L Chloride Level 107 MMOL/L (98-107) Carbon Dioxide Level 28 MMOL/L (21-32) Anion Gap 12 mmol/L (5-15) Blood Urea Nitrogen 44 mg/dL (7-18) H Creatinine 3.7 MG/DL (0.55-1.30) H Estimat Glomerular Filtration Rate 18.4 mL/min (>60) Glucose Level 110 MG/DL (74-106) H Calcium Level 8.7 MG/DL (8.5-10.1) Total Bilirubin 0.6 MG/DL (0.2-1.0) Aspartate Amino Transf (AST/SGOT) 34 U/L (15-37) Alanine Aminotransferase (ALT/SGPT) 26 U/L (12-78) Alkaline Phosphatase 65 U/L (46-116) Total Protein 7.0 G/DL (6.4-8.2) Albumin 2.3 G/DL (3.4-5.0) L Globulin 4.7 g/dL Albumin/Globulin Ratio 0.5 (1.0-2.7) L Microbiology Date/Time Source Procedure Growth Status 09/20/17 16:20 Indwelling Cath Urine Culture - Preliminary NO GROWTH AFTER 24 HOURS Resulted Objective HEENT: Atraumatic and normocephalic. Pupils are equal, round, and reactive to light and accommodation. NECK: JVP cannot be assessed. CVS: Normal S1, S2. Cannot appreciate any murmurs, gallops, or rubs. LUNGS: Clear to auscultation bilaterally. ABDOMEN: Soft, nontender, and nondistended. No hepatosplenomegaly. Positive bowel sounds. EXTREMITIES: No evidence of edema, clubbing, or cyanosis. Right lower extremity with decrease in both motor and sensory function. Jorge Mcdonough MD Sep 22, 2017 23:06
[2017-09-23] VITALS (7 sets, daily range): BP systolic 143–155; BP diastolic 84–101
[2017-09-23] MEDS: Aluminum Hydroxide Gel Susp 15ml ORAL SCH ×3 (07:32→23:44)
[2017-09-23] MEDS: Docusate 100mg cap ORAL SCH ×3 (09:00→17:42)
[2017-09-23] MEDS: Heparin 5000 units/ml inj SUBQ SCH ×2 (09:24→21:47)
[2017-09-23 09:32] LABS: ALANINE AMINOTRANSFERASE 29 U/L (12-78); ALBUMIN 2.5 G/DL (3.4-5.0); ALBUMIN/GLOBULIN RATIO 0.5 (1.0-2.7); ALKALINE PHOSPHATASE 71 U/L (46-116); ANION GAP 12 mmol/L (5-15); ASPARTATE AMINO TRANSFERASE 38 U/L (15-37); BILIRUBIN,TOTAL 0.6 MG/DL (0.2-1.0); BLOOD UREA NITROGEN 33 mg/dL (7-18); CALCIUM 8.4 MG/DL (8.5-10.1); CARBON DIOXIDE 25 MMOL/L (21-32); CHLORIDE 107 MMOL/L (98-107); CREATININE 2.3 MG/DL (0.55-1.30); POTASSIUM 3.3 MMOL/L (3.5-5.1); SODIUM 144 MMOL/L (136-145)
--- NOTE | 2017-09-23 09:35 | Infectious Diseases Prog Note ---
Assessment/Plan Assessment/Plan Aspiration PNA -CXR 09/04 : Interim development of hazy interstitial and airspace disease in the right lung. This may to some extent be an artifact of less optimal inspiration, however. Interim extubation -sp cx normal ann; repeat sp cx MSSA -legionella ag urine neg Sp sepsis - Leukocytosis - Improving - No source found - Pancreatitis ? -u/a wbc 5-10, nit neg, leuk +1; cx neg -Bcx NTD (09/05 abd 09/07) -2d Echo (limited but no vegetations seen) - No Veg on KATELYN 09/10/17 - Tagged WBCs no focal uptake - MRI pelvis 09/11/17 : Diffuse symmetric edema of the bilateral buttock musculature , ? Myositis Discrete 3 x 3 x 7.3 cm fluid collection in the lateral left buttock musculature 09/13 SP No purulent material aspirated. Only small amount of blood aspirated Cx : Negative Blood Cx 09/18/17 - NGTD Urine Cx 09/18/17 - Low counts Fever: soruce ? Rhabdo vs pancreatitis - CT scan 09/19/17 - Interim development of what is probably a right buttock hematoma, measuring 6 x 3.5 by at least 11 cm, Worsening anasarca, Mild pulmonary groundglass opacity, likely represents pulmonary edema, 12 mm focus of low attenuation within the dome of the right hepatic lobe. Complex cyst , early hepatic abscess, less likely neoplasm given patient's age. Consider further evaluation with sonography to see if this is sonographically visible Diverticulosis. No evidence of diverticulitis -Cdiff neg -v/duplex no DVT -HIV ab sc and VL neg, RPR/FTA, GC/CL neg Hep C +; VL pending -ABD US: Gallbladder sludge. Negative for gallstones or dilated ducts. Equivocal increased hepatic echogenicity, if real could indicate hepatocellular disease such as fatty change. Borderline hepatomegaly. Mildly increased renal echogenicity, could indicate medical renal disease. Correlate with renal function tests. Left pleural effusion -Hep A and B immune Drug overdose -UDS + opiates, amphetamines, THC, cocaine -+empty heroin needles (found on hotel room) Multiorgan failure -LUCRECIA, - on HD -Transaminitis, (shock liver); improving -VDRF (airway protection)- extubaetd 09/03 Lactic acidosis; resolved Rhabdomyolisis; improving Pancreatitis- drug induced -neg alcohol levels Encephalopathy - improved -CT head 09/04: Unusual scalp contusion, new since prior study 08/29/2017. No evidence of underlying calvarial trauma. Negative for acute intracranial bleed or mass effect Plan: - Leukocytosis improving - Continue to monitor - Afebrile today - Contuinue IV Dapto d# 9/10 ( may stop Dapto if CK worsen or more than 10x Nl ) and Merrem d# 9/10 ( empirically ) - Continue Micafungin #5/6 - 09/14/17 - SP IV Micafungin # 7 ( Emperic coverage of fungemia ) -09/14/17 - S/P IV Vanco and Zosyn # 9 -09/04 SP IV Azithromycin #3 -09/03 SP Zosyn #6 - Monitor CBC/CMP, temperatures - aspiration precautions - CRP - Monitor CK - Neuro,cardio, renal, GI f/u - Consider liver abscess if leukocytosis does not resolve. Subjective Allergies: Coded Allergies: NO KNOWN ALLERGIES (Verified Allergy, Unknown, 09/02/17) Subjective No acute events Patient afebrile No abdominal pain N/V/D. Objective Vital Signs Last 24 Hour Vital Signs Date Time Temp Pulse Resp B/P (MAP) Pulse Ox O2 Delivery O2 Flow Rate FiO2 09/23/17 09:23 61 143/84 09/23/17 09:23 143/84 09/23/17 08:02 99.3 61 18 143/84 (103) 98 99.3 09/23/17 04:00 98.6 75 17 152/93 (112) 96 98.6 09/23/17 02:28 151/93 09/23/17 00:00 99.5 67 18 151/93 (112) 96 99.5 09/22/17 20:13 99.9 61 18 150/95 (113) 96 99.9 09/22/17 17:32 150/96 09/22/17 16:00 98.2 64 18 150/96 (114) 95 98.2 09/22/17 12:00 98.2 67 18 137/80 (99) 97 98.2 09/22/17 10:00 143/85 09/22/17 09:41 98.2 Height (Feet): 5 Height (Inches): 5.00 Weight (Pounds): 191 Objective General: NAD, Awake and talking, sitting up in bed HEENT: NCAT, MMM, EOMI, PERRL Heart: RRR, no m/r/g, right HD line in place CLISA = 0 Lungs: CTAB, No W/C ABD: Soft, NT, ND, BS+ Extremity: no edema or cellulitis Neuro: A/O x 4, Grossly nonfocal Microbiology Date/Time Source Procedure Growth Status 09/20/17 16:20 Indwelling Cath Urine Culture - Final NO GROWTH AFTER 48 HOURS Complete Laboratory Tests Test 09/23/17 07:50 Sodium Level Pending Potassium Level Pending Chloride Level Pending Carbon Dioxide Level Pending Anion Gap 12 mmol/L (5-15) Blood Urea Nitrogen Pending Creatinine Pending Estimat Glomerular Filtration Rate Pending Glucose Level Pending Calcium Level Pending Total Bilirubin 0.6 MG/DL (0.2-1.0) Aspartate Amino Transf (AST/SGOT) 38 U/L (15-37) H Alanine Aminotransferase (ALT/SGPT) 29 U/L (12-78) Alkaline Phosphatase 71 U/L (46-116) Total Protein 7.2 G/DL (6.4-8.2) Albumin 2.5 G/DL (3.4-5.0) L Globulin 4.7 g/dL Albumin/Globulin Ratio 0.5 (1.0-2.7) L Current Medications Medications (Trade) Dose Ordered Sig/Krystyna Route PRN Reason Start Time Stop Time Status Last Admin Dose Admin Acetaminophen (Tylenol) 650 mg Q4H PRN ORAL Fever (temp>100.5F) 09/05/17 18:30 10/05/17 18:29 09/22/17 08:42 Aluminum Hydroxide (Amphojel) 1,920 mg Q8H ORAL 09/18/17 15:00 10/18/17 14:59 09/23/17 07:32 Amlodipine Besylate (Norvasc) 2.5 mg DAILY ORAL 09/23/17 09:00 10/23/17 08:59 09/23/17 09:23 Chlorhexidine Gluconate (Jyotsna-Hex 2%) 1 applic DAILY@2000 TOPIC 09/05/17 20:00 09/29/17 19:59 09/21/17 20:56 Clonidine HCl (Catapres Tab) 0.1 mg Q8H ORAL 09/17/17 18:00 10/10/17 03:59 09/23/17 09:23 Daptomycin 550 mg/ Sodium Chloride 55 ml @ 100 mls/hr Q48H IV 09/14/17 19:00 09/24/17 23:59 09/22/17 18:56 Dextrose (Dextrose 50%) 25 ml STAT PRN IV Hypoglycemia 09/05/17 18:30 10/05/17 18:29 Dextrose (Dextrose 50%) 50 ml STAT PRN IV Hypoglycemia 09/05/17 18:30 10/05/17 18:29 Docusate Sodium (Colace) 100 mg TID ORAL 09/17/17 13:00 10/17/17 12:59 09/20/17 18:12 Epoetin Joel (Procrit (for non ESRD use)) 3,000 units SAT-SAT-SAT SUBQ 09/23/17 21:00 10/23/17 20:59 Heparin Sodium (Porcine) (Heparin 5000 units/ml) 5,000 units EVERY 12 HOURS SUBQ 09/05/17 21:00 09/28/17 20:59 09/23/17 09:24 Meropenem 500 mg/ Sodium Chloride 55 ml @ 110 mls/hr Q24H IVPB 09/15/17 16:00 09/24/17 23:59 09/22/17 16:13 Micafungin Sodium 100 mg/Sodium Chloride 110 ml @ 110 mls/hr Q24H IVPB 09/18/17 18:00 09/25/17 17:59 09/22/17 18:16 Mirtazapine (Remeron) 15 mg BEDTIME ORAL 09/05/17 21:00 10/04/17 20:59 09/22/17 20:30 Nitroglycerin (Ntg) 0.4 mg Q5M PRN SL Prn Chest Pain 09/05/17 18:30 09/28/17 14:44 Pantoprazole (Protonix) 40 mg Q12HR ORAL 09/18/17 14:00 10/18/17 13:59 09/23/17 09:23 Potassium Chloride (K-Dur) 40 meq TWICE A DAY GT 09/22/17 18:00 10/22/17 17:59 09/23/17 09:23 Quetiapine Fumarate (SEROquel) 50 mg DAILY ORAL 09/17/17 09:00 10/17/17 08:59 09/23/17 09:23 Quetiapine Fumarate (SEROquel) 50 mg Q4H PRN ORAL agitation 09/10/17 14:00 10/10/17 13:59 09/18/17 01:47 Quetiapine Fumarate (SEROquel) 50 mg QLUNCH ORAL 09/17/17 11:30 10/17/17 11:29 09/22/17 12:08 Quetiapine Fumarate (SEROquel) 100 mg BEDTIME ORAL 09/16/17 21:00 10/16/17 20:59 09/22/17 20:30 Sevelamer Carbonate (Renvela) 1,600 mg THREE TIMES A DAY ORAL 09/18/17 09:00 10/18/17 08:59 09/23/17 09:23 Tamsulosin HCl (Flomax) 0.4 mg BEDTIME ORAL 09/20/17 12:00 10/20/17 11:59 09/22/17 20:30 Jean Cervantes M.D. Sep 23, 2017 09:35
[2017-09-23 09:58] LABS: ANION GAP 13 mmol/L (5-15); BLOOD UREA NITROGEN 34 mg/dL (7-18); CALCIUM 8.3 MG/DL (8.5-10.1); CARBON DIOXIDE 26 MMOL/L (21-32); CHLORIDE 107 MMOL/L (98-107); CREATININE 2.4 MG/DL (0.55-1.30); POTASSIUM 3.3 MMOL/L (3.5-5.1); SODIUM 145 MMOL/L (136-145)
--- NOTE | 2017-09-23 10:16 | General Progress Note ---
Assessment/Plan Status: stable Assessment/Plan # Anemia of chronic disease. Anemia w/u has been reviewed. Will trend CBC daily. --> Continue to closely monitor for stability. --> Ferritin and tibc reviewed, consistent with anemia of chronic disease --> Hgb goal above >7 --> 09/15 1 unit PRBC, 09/19: 1 unit, --> 09/22: Hgb at 7.4 --> given elev Cr, will start low dose epogen once a week dosing # Leukocytosis. due to infection, however no source is found. AFEBRILE --> Closely monitor for improvement. --> 09/22: WBC 14.5, IMPROVING --> Currently on IV abx. --> Consider liver abscess if leukocytosis does not resolve. # Thrombocytosis. Likely reactive process to anemia --> Closely monitor PLT count for improvement. --> should improve with improvement in anemia as well --> 09/22: PLT count of 415, wnl # Transaminitis. Trending downwards. The time the note was entered does not necessarily correspond to the time the patient was seen. Subjective Date patient seen: Sep 23, 2017 ROS Limited/Unobtainable: Yes Hematologic/Lymphatic: Reports: anemia Allergies: Coded Allergies: NO KNOWN ALLERGIES (Verified Allergy, Unknown, 09/02/17) All Systems: reviewed and negative except above Subjective Pt awake and alert. No acute events. H/H stable. Objective Last 24 Hour Vital Signs Date Time Temp Pulse Resp B/P (MAP) Pulse Ox O2 Delivery O2 Flow Rate FiO2 09/23/17 09:23 61 143/84 09/23/17 09:23 143/84 09/23/17 08:02 99.3 61 18 143/84 (103) 98 99.3 09/23/17 04:00 98.6 75 17 152/93 (112) 96 98.6 09/23/17 02:28 151/93 09/23/17 00:00 99.5 67 18 151/93 (112) 96 99.5 09/22/17 20:13 99.9 61 18 150/95 (113) 96 99.9 09/22/17 17:32 150/96 09/22/17 16:00 98.2 64 18 150/96 (114) 95 98.2 09/22/17 12:00 98.2 67 18 137/80 (99) 97 98.2 Intake and Output 09/22/17 09/23/17 19:00 07:00 Intake Total 480 ml 295 ml Output Total 2000 ml 1950 ml Balance -1520 ml -1655 ml Intake Oral 480 ml 240 ml IV Total 55 ml Output Urine Total 2000 ml 1950 ml # Bowel Movements 2 Laboratory Tests 09/23/17 07:50: Sodium Level 145, Potassium Level 3.3L, Chloride Level 107, Carbon Dioxide Level 26, Anion Gap 13, Blood Urea Nitrogen 34H, Creatinine 2.4H, Estimat Glomerular Filtration Rate 30.3, Glucose Level 148H, Calcium Level 8.3L, Total Bilirubin 0.6, Aspartate Amino Transf (AST/SGOT) 38H, Alanine Aminotransferase ( ALT/SGPT) 29, Alkaline Phosphatase 71, Total Protein 7.2, Albumin 2.5L, Globulin 4.7, Albumin/Globulin Ratio 0.5L Height (Feet): 5 Height (Inches): 5.00 Weight (Pounds): 191 General Appearance: no apparent distress EENT: PERRL/EOMI Neck: normal alignment Cardiovascular: normal peripheral pulses Respiratory/Chest: no respiratory distress Abdomen: soft Diogenes Flores MD Sep 23, 2017 10:16
--- NOTE | 2017-09-23 10:41 | GI Progress Note ---
Assessment/Plan Problems: (1) Severe sepsis ICD Codes: A41.9 - Sepsis, unspecified organism; R65.20 - Severe sepsis without septic shock SNOMED: 06207131 (2) Rhabdomyolysis ICD Codes: M62.82 - Rhabdomyolysis SNOMED: 202158089 Qualifiers: Qualified Codes: T79.6XXA - Traumatic ischemia of muscle, initial encounter (3) Aspiration pneumonia ICD Codes: J69.0 - Pneumonitis due to inhalation of food and vomit SNOMED: 020291186 Qualifiers: Qualified Codes: J69.0 - Pneumonitis due to inhalation of food and vomit (4) Substance abuse ICD Codes: F19.10 - Other psychoactive substance abuse, uncomplicated SNOMED: 41077047 (5) Transaminitis ICD Codes: R74.0 - Nonspecific elevation of levels of transaminase and lactic acid dehydrogenase [LDH] SNOMED: 231361071, 578669177 Status: stable, progressing Status Narrative Discussed with Dr. Chavez. Assessment/Plan Hep A immunity Hep C positive transaminitis >> downtrending, near normal levels cdiff negative stool culture >> gram negative bacillus elevated lipase >> now normal OB stool negative x2 supportive care prn transfusions renal diet abx supportive care ppi fu labs, lipase, trend LFTs outpatient Hep C tx The patient was seen and examined at bedside and all new and available data was reviewed in the patients chart. I agree with the above findings, impression and plan. (Patient seen earlier today. Signature stamp does not reflect patient encounter time.). - Efrain Chavez MD Subjective Gastrointestinal/Abdominal: Reports: no symptoms Objective Last 24 Hour Vital Signs Date Time Temp Pulse Resp B/P (MAP) Pulse Ox O2 Delivery O2 Flow Rate FiO2 09/23/17 09:23 61 143/84 09/23/17 09:23 143/84 09/23/17 08:02 99.3 61 18 143/84 (103) 98 99.3 09/23/17 04:00 98.6 75 17 152/93 (112) 96 98.6 09/23/17 02:28 151/93 09/23/17 00:00 99.5 67 18 151/93 (112) 96 99.5 09/22/17 20:13 99.9 61 18 150/95 (113) 96 99.9 09/22/17 17:32 150/96 09/22/17 16:00 98.2 64 18 150/96 (114) 95 98.2 09/22/17 12:00 98.2 67 18 137/80 (99) 97 98.2 Intake and Output 09/22/17 09/23/17 19:00 07:00 Intake Total 480 ml 295 ml Output Total 2000 ml 1950 ml Balance -1520 ml -1655 ml Intake Oral 480 ml 240 ml IV Total 55 ml Output Urine Total 2000 ml 1950 ml # Bowel Movements 2 Laboratory Tests Test 09/23/17 07:50 Sodium Level 145 MMOL/L (136-145) Potassium Level 3.3 MMOL/L (3.5-5.1) L Chloride Level 107 MMOL/L (98-107) Carbon Dioxide Level 26 MMOL/L (21-32) Anion Gap 13 mmol/L (5-15) Blood Urea Nitrogen 34 mg/dL (7-18) H Creatinine 2.4 MG/DL (0.55-1.30) H Estimat Glomerular Filtration Rate 30.3 mL/min (>60) Glucose Level 148 MG/DL (74-106) H Calcium Level 8.3 MG/DL (8.5-10.1) L Total Bilirubin 0.6 MG/DL (0.2-1.0) Aspartate Amino Transf (AST/SGOT) 38 U/L (15-37) H Alanine Aminotransferase (ALT/SGPT) 29 U/L (12-78) Alkaline Phosphatase 71 U/L (46-116) Total Protein 7.2 G/DL (6.4-8.2) Albumin 2.5 G/DL (3.4-5.0) L Globulin 4.7 g/dL Albumin/Globulin Ratio 0.5 (1.0-2.7) L Height (Feet): 5 Height (Inches): 5.00 Weight (Pounds): 191 General Appearance: WD/WN, no apparent distress, alert Cardiovascular: normal rate Respiratory/Chest: normal breath sounds, no respiratory distress Abdominal Exam: normal bowel sounds, non tender, soft Extremities: normal range of motion, non-tender Carlos Lopez NP Sep 23, 2017 10:41
--- NOTE | 2017-09-23 11:44 | Neurology Progress Note ---
Interim History Interim History Interim History Mr. Stover feels well today. He was sleeping when I went to see him but could be easily aroused. The mind is clearer. He feels less confused. He still gets agitated at times. He feels more energetic. He is less forgetful. His appetite is better. He is generally stronger. He says he stood up and took a few steps yesterday. He denies any new neurologic symptoms. He specifically denies any increased weakness on one side or the other, numbness on one side or the other, problems with speech, problems with language , or problems with vision. Review of Systems Neuro Review of Systems Benign. Objective Physical Exam Last Vital Signs Date Time Temp Pulse Resp B/P (MAP) Pulse Ox O2 Delivery O2 Flow Rate FiO2 09/23/17 09:23 61 143/84 09/23/17 08:02 99.3 18 98 99.3 09/21/17 21:00 Room Air 09/14/17 20:33 4.0 21 Laboratory Tests Test 09/23/17 07:50 Sodium Level 145 MMOL/L (136-145) Potassium Level 3.3 MMOL/L (3.5-5.1) L Chloride Level 107 MMOL/L (98-107) Carbon Dioxide Level 26 MMOL/L (21-32) Anion Gap 13 mmol/L (5-15) Blood Urea Nitrogen 34 mg/dL (7-18) H Creatinine 2.4 MG/DL (0.55-1.30) H Estimat Glomerular Filtration Rate 30.3 mL/min (>60) Glucose Level 148 MG/DL (74-106) H Calcium Level 8.3 MG/DL (8.5-10.1) L Total Bilirubin 0.6 MG/DL (0.2-1.0) Aspartate Amino Transf (AST/SGOT) 38 U/L (15-37) H Alanine Aminotransferase (ALT/SGPT) 29 U/L (12-78) Alkaline Phosphatase 71 U/L (46-116) Total Protein 7.2 G/DL (6.4-8.2) Albumin 2.5 G/DL (3.4-5.0) L Globulin 4.7 g/dL Albumin/Globulin Ratio 0.5 (1.0-2.7) L Neurologic Exam Objective PHYSICAL EXAMINATION: GENERAL: He is a well-developed, well-nourished, gentleman, lying in bed. HEAD: Normocephalic and atraumatic. EENT: Examination benign. NECK: No neck rigidity was observed. NEUROLOGIC EXAMINATION: MENTAL STATUS EXAMINATION: He was awake and alert, when aroused. He was oriented to self, and [facility] and September 2017. He did not know the exact date. He was able to recall 3/3 words immediately, but could only remember 2/3 in 1 and 3 minutes. He was able to remember presidents Trump through [employer]. His mathematical skills were minimally impaired. His visuospatial function was good. SPEECH: He had no dysarthria. LANGUAGE: He had a moderate anomia. CRANIAL NERVE EXAMINATION: II: The visual dinh were intact on confrontation testing. III, IV & : The external ocular movements were present. The pupils were 3 mm in diameter and reactive sluggishly to light. V: He had normal facial sensations and the temporales, masseters and pterygoids functioned well. VII: He had normal facial expressions and no facial asymmetry. VIII: He was able to hear well and had no nystagmus. IX: The palate moved symmetrically on phonation. X: He had no hoarseness of voice. XI: The sternocleidomastoids and trapezii functioned well. XII: The tongue was in the midline. MOTOR SYSTEM: The tone was normal in all four extremities. Examination of muscle mass revealed no focal wasting. Examination of power revealed G 5/5 power in all muscle groups except for G 0/5 in the right ankle dorsiflexors, toe extensors, ankle plantar flexors and toe flexors, G 5-/5 in the left ankle dorsiflexors and toe extensors, and G 4/5 in the iliopsoas muscle bilaterally. SENSORY EXAMINATION: He had altered sensations in the right peroneal distribution. REFLEXES: Trace+ and bilaterally symmetrical at the biceps, triceps, brachioradialis, and knees, 0 at both ankles. The plantar responses were flexor bilaterally. COORDINATION: He performed well on finger to nose testing. STANCE & GAIT: Could not be tested. Impression/Recommendations Diagnostic Impression 1. Mr. Enoch Stover is a 37-year-old, gentleman, of unknown handedness, who was found unconscious in a hotel room on 08/29/2017 after he had used multiple drugs. He was found to be possibly febrile, hypoglycemic, and breathing rapidly. Since then, he has been hospitalized and treated for sepsis. 2. He feels well today. He was sleeping when I went to see him but could be easily aroused. The mind is clearer. He feels less confused. He still gets agitated at times. He feels more energetic. He is less forgetful. His appetite is better. He is generally stronger. He says he stood up and took a few steps yesterday. He denies any new neurologic symptoms. 3. On neurological examination, at this time, he is awake and alert. He is well oriented, except for the exact date. He has mild problems with memory. His speech is normal. He has a mild anomia. His cranial nerves are functioning normally. His motor function is relatively good, he however has mild proximal lower extremity weakness, and mild distal left lower extremity weakness with no movement in the right ankle and toes. His sensations are altered in the right peroneal distribution. His deep tendon reflexes are diminished but his plantar responses are flexor. He also does not demonstrate any definite focal or lateralizing neurological findings. 4. The CT scan of the brain performed on 08/29/2017 and repeated on 09/04/17 is benign for acute pathology. 5. Laboratory data obtained thus far revealed, on admission, his hemoglobin was elevated to 18.4, his WBC was normal at 8,500, but since then his WBCs have peaked to 17,200. His chemistry panel on admission revealed BUN elevated to 31 , creatinine elevated to 3.6, lactic acid elevated to 5.5, bilirubin elevated at 1.2, AST elevated at 478, ALT elevated to 159, CK elevated to greater than 10 ,000, troponin elevated at 1.01, BNP elevated to 2143. His urine toxicology screen was positive for opiates, amphetamines, cocaine, and marijuana. His INR was elevated at 1.2. His TSH is elevated at 4.72. The T3 is low but the T4 is normal. 6. The patient's history, neurological examination, laboratory data, and imaging studies are most compatible with an altered mental state due to a toxic metabolic encephalopathy. 7. The most likely etiology for the encephalopathy is the sepsis, possibly a period of hypoglycemia and ongoing multiple metabolic imbalances and the toxic imbalances. In addition the use of mind-altering drugs could have also been contributing. 8. His encephalopathy is still waxing and waning. 9. He has also developed bilateral mild proximal lower extremity weakness, and in addition severe right distal lower extremity weakness with severe right peroneal and tibial nerve dysfunction. His sensations are also altered in the right peroneal distribution. Recommendations 1. Continue present management. 2. Continue aggressive treatment of the patient's infectious process. 3. Aggressive management of toxic/metabolic imbalances. 4. AFO for right foot drop. 5. Make sure that his legs are not kept on any hard surface. 6. PT/OT. 7. Observe closely. Chris Gomez M.D., M.S.P.H. CHRIS GOMEZ Sep 23, 2017 11:44
--- NOTE | 2017-09-23 12:50 | General Progress Note ---
Assessment/Plan Problem List: (1) Substance abuse ICD Codes: F19.10 - Other psychoactive substance abuse, uncomplicated SNOMED: 10066751 (2) Respiratory failure ICD Codes: J96.90 - Respiratory failure, unspecified, unspecified whether with hypoxia or hypercapnia SNOMED: 817828264 Qualifiers: Qualified Codes: J96.01 - Acute respiratory failure with hypoxia (3) Rhabdomyolysis ICD Codes: M62.82 - Rhabdomyolysis SNOMED: 423438200 Qualifiers: Qualified Codes: T79.6XXA - Traumatic ischemia of muscle, initial encounter (4) NSTEMI (non-ST elevated myocardial infarction) ICD Codes: I21.4 - Non-ST elevation (NSTEMI) myocardial infarction SNOMED: 694354913 (5) LUCRECIA (acute kidney injury) ICD Codes: N17.9 - Acute kidney failure, unspecified SNOMED: 80652577 Status: stable, progressing Assessment/Plan ot pt diet abx neuro psyc eval cbc bmp am aru eval Subjective Constitutional: Reports: weakness Allergies: Coded Allergies: NO KNOWN ALLERGIES (Verified Allergy, Unknown, 09/02/17) All Systems: reviewed and negative except above Subjective calm in bed sleepy Objective Last 24 Hour Vital Signs Date Time Temp Pulse Resp B/P (MAP) Pulse Ox O2 Delivery O2 Flow Rate FiO2 09/23/17 12:10 101.7 09/23/17 12:00 101.7 57 16 146/95 (112) 96 101.7 09/23/17 09:23 61 143/84 09/23/17 09:23 143/84 09/23/17 08:02 99.3 61 18 143/84 (103) 98 99.3 09/23/17 04:00 98.6 75 17 152/93 (112) 96 98.6 09/23/17 02:28 151/93 09/23/17 00:00 99.5 67 18 151/93 (112) 96 99.5 09/22/17 20:13 99.9 61 18 150/95 (113) 96 99.9 09/22/17 17:32 150/96 09/22/17 16:00 98.2 64 18 150/96 (114) 95 98.2 Intake and Output 09/22/17 09/23/17 19:00 07:00 Intake Total 480 ml 295 ml Output Total 2000 ml 1950 ml Balance -1520 ml -1655 ml Intake Oral 480 ml 240 ml IV Total 55 ml Output Urine Total 2000 ml 1950 ml # Bowel Movements 2 Laboratory Tests 09/23/17 07:50: Sodium Level 145, Potassium Level 3.3L, Chloride Level 107, Carbon Dioxide Level 26, Anion Gap 13, Blood Urea Nitrogen 34H, Creatinine 2.4H, Estimat Glomerular Filtration Rate 30.3, Glucose Level 148H, Calcium Level 8.3L, Total Bilirubin 0.6, Aspartate Amino Transf (AST/SGOT) 38H, Alanine Aminotransferase ( ALT/SGPT) 29, Alkaline Phosphatase 71, Total Protein 7.2, Albumin 2.5L, Globulin 4.7, Albumin/Globulin Ratio 0.5L Height (Feet): 5 Height (Inches): 5.00 Weight (Pounds): 191 General Appearance: lethargic EENT: normal ENT inspection Neck: normal alignment Cardiovascular: normal peripheral pulses, normal rate, regular rhythm Respiratory/Chest: chest wall non-tender, lungs clear, normal breath sounds Abdomen: normal bowel sounds, non tender, soft Extremities: normal inspection Edema: no edema noted Arm (L), no edema noted Arm (R), no edema noted Leg (L), no edema noted Leg (R), no edema noted Pedal (L), no edema noted Pedal (R), no edema noted Generalized Neurologic: responsive, motor weakness Skin: normal pigmentation, warm/dry Reid Anaya DO Sep 23, 2017 12:50
[2017-09-23] MEDS: Meropenem 500mg/NS 55ml IVPB SCH ×2 (16:07)
[2017-09-23] MEDS: Micafungin 100 MG in NS 110 ML IVPB SCH (18:18)
--- NOTE | 2017-09-23 19:51 | Nephrology Progress Note ---
Assessment/Plan Assessment 1. Acute rhabdomyolysis yesterday rivera cath was placed had more than 3000 ml of urine out continue to have good urine out put 2. Hypocalcemia. 3. Hypokalemia Plan hold dialysis monitoring renal function monitoring out put Subjective Subjective alert and awake continue to have good urine out put Objective Objective Last 24 Hour Vital Signs Date Time Temp Pulse Resp B/P (MAP) Pulse Ox O2 Delivery O2 Flow Rate FiO2 09/23/17 19:32 99.1 60 18 147/96 (113) 99 99.1 09/23/17 17:38 147/88 09/23/17 16:00 98.6 64 18 147/88 (107) 95 98.6 09/23/17 13:36 100.6 100.6 09/23/17 13:09 100.6 09/23/17 12:10 101.7 09/23/17 12:00 101.7 57 16 146/95 (112) 96 101.7 09/23/17 09:23 61 143/84 09/23/17 09:23 143/84 09/23/17 08:02 99.3 61 18 143/84 (103) 98 99.3 09/23/17 04:00 98.6 75 17 152/93 (112) 96 98.6 09/23/17 02:28 151/93 09/23/17 00:00 99.5 67 18 151/93 (112) 96 99.5 09/22/17 20:13 99.9 61 18 150/95 (113) 96 99.9 Intake and Output 09/22/17 09/23/17 19:00 07:00 Intake Total 480 ml 295 ml Output Total 2000 ml 1950 ml Balance -1520 ml -1655 ml Intake Oral 480 ml 240 ml IV Total 55 ml Output Urine Total 2000 ml 1950 ml # Bowel Movements 2 Laboratory Tests 09/23/17 07:50: Sodium Level 145, Potassium Level 3.3L, Chloride Level 107, Carbon Dioxide Level 26, Anion Gap 13, Blood Urea Nitrogen 34H, Creatinine 2.4H, Estimat Glomerular Filtration Rate 30.3, Glucose Level 148H, Calcium Level 8.3L, Total Bilirubin 0.6, Aspartate Amino Transf (AST/SGOT) 38H, Alanine Aminotransferase ( ALT/SGPT) 29, Alkaline Phosphatase 71, Total Protein 7.2, Albumin 2.5L, Globulin 4.7, Albumin/Globulin Ratio 0.5L Height (Feet): 5 Height (Inches): 5.00 Weight (Pounds): 191 Objective HEAD AND NECK: No JVP. No LAD. G-tube is in place. Head is atraumatic and normocephalic. LUNGS: He has decreased breathing sounds on the both sides. CARDIAC: Regular rate and rhythm. S1 and S2. No murmur. No rub. ABDOMEN: Soft. Bowel sounds positive. EXTREMITIES: No edema. No clubbing. No cyanosis. Aixa Veloz MD Sep 23, 2017 19:51
[2017-09-23] MEDS: Dyna-Hex 2% Top Sol 2oz TOPIC SCH (20:00)
[2017-09-23] MEDS: Epogen (for non ESRD use) SUBQ SCH (21:45)
[2017-09-23] MEDS: Tamsulosin 0.4mg cap ORAL SCH (21:45)
--- NOTE | 2017-09-23 23:52 | Cardiology Progress Note ---
Assessment/Plan Assessment/Plan 1. Sepsis, Continue IV ABx per ID recs. 2. Elevated troponin I level likely due to myocarditis, sepsis, or due to shock. Continue conservative management. 3. Sinus tachycardia, resolved, continue hydration. 4. HTN, continue amlodipine daily. 5. Acute pancreatitis with systemic inflammatory response disease. 6. LUCRECIA, on HD. 7. Shock liver, resolved. 8. Toxic metabolic encephalopathy Subjective Subjective No cardiac events noted. Objective Last 24 Hour Vital Signs Date Time Temp Pulse Resp B/P (MAP) Pulse Ox O2 Delivery O2 Flow Rate FiO2 09/23/17 19:32 99.1 60 18 147/96 (113) 99 99.1 09/23/17 17:38 147/88 09/23/17 16:00 98.6 64 18 147/88 (107) 95 98.6 09/23/17 13:36 100.6 100.6 09/23/17 13:09 100.6 09/23/17 12:10 101.7 09/23/17 12:00 101.7 57 16 146/95 (112) 96 101.7 09/23/17 09:23 61 143/84 09/23/17 09:23 143/84 09/23/17 08:02 99.3 61 18 143/84 (103) 98 99.3 09/23/17 04:00 98.6 75 17 152/93 (112) 96 98.6 09/23/17 02:28 151/93 09/23/17 00:00 99.5 67 18 151/93 (112) 96 99.5 Intake and Output 09/22/17 09/23/17 19:00 07:00 Intake Total 480 ml 295 ml Output Total 2000 ml 1950 ml Balance -1520 ml -1655 ml Intake Oral 480 ml 240 ml IV Total 55 ml Output Urine Total 2000 ml 1950 ml # Bowel Movements 2 2D Echo: KATELYN: Nl LV systolic & diastolic function, Mild MR, No vegetations, Nl RVSP Laboratory Tests Test 09/23/17 07:50 Sodium Level 145 MMOL/L (136-145) Potassium Level 3.3 MMOL/L (3.5-5.1) L Chloride Level 107 MMOL/L (98-107) Carbon Dioxide Level 26 MMOL/L (21-32) Anion Gap 13 mmol/L (5-15) Blood Urea Nitrogen 34 mg/dL (7-18) H Creatinine 2.4 MG/DL (0.55-1.30) H Estimat Glomerular Filtration Rate 30.3 mL/min (>60) Glucose Level 148 MG/DL (74-106) H Calcium Level 8.3 MG/DL (8.5-10.1) L Total Bilirubin 0.6 MG/DL (0.2-1.0) Aspartate Amino Transf (AST/SGOT) 38 U/L (15-37) H Alanine Aminotransferase (ALT/SGPT) 29 U/L (12-78) Alkaline Phosphatase 71 U/L (46-116) Total Protein 7.2 G/DL (6.4-8.2) Albumin 2.5 G/DL (3.4-5.0) L Globulin 4.7 g/dL Albumin/Globulin Ratio 0.5 (1.0-2.7) L Objective HEENT: Atraumatic and normocephalic. Pupils are equal, round, and reactive to light and accommodation. NECK: JVP cannot be assessed. CVS: Normal S1, S2. Cannot appreciate any murmurs, gallops, or rubs. LUNGS: Clear to auscultation bilaterally. ABDOMEN: Soft, nontender, and nondistended. No hepatosplenomegaly. Positive bowel sounds. EXTREMITIES: No evidence of edema, clubbing, or cyanosis. Right lower extremity with decrease in both motor and sensory function. Jorge Mcdonough MD Sep 23, 2017 23:52
[2017-09-24 04:00] VITALS: BP 148/88
[2017-09-24] MEDS: Aluminum Hydroxide Gel Susp 15ml ORAL SCH ×3 (06:21→23:57)
[2017-09-24 07:15] LABS: BASOPHILS % (AUTO) 1.3 % (0.0-2.0); EOSINOPHILS % (AUTO) 1.3 % (0.0-3.0); HEMATOCRIT 23.7 % (42.0-52.0); HEMOGLOBIN 8.2 G/DL (14.2-18.0); LYMPHOCYTES % (AUTO) 9.3 % (20.0-45.0); MEAN CORPUSCULAR VOLUME 93 FL (80-99); MONOCYTES % (AUTO) 8.9 % (1.0-10.0); NEUTROPHILS % (AUTO) 79.1 % (45.0-75.0); PLATELET COUNT 481 K/UL (150-450); RED BLOOD COUNT 2.55 M/UL (4.70-6.10); RED CELL DISTRIBUTION WIDTH 11.8 % (11.6-14.8)
[2017-09-24 07:36] LABS: ALANINE AMINOTRANSFERASE 27 U/L (12-78); ALBUMIN 2.4 G/DL (3.4-5.0); ALBUMIN/GLOBULIN RATIO 0.5 (1.0-2.7); ALKALINE PHOSPHATASE 73 U/L (46-116); ANION GAP 10 mmol/L (5-15); ASPARTATE AMINO TRANSFERASE 36 U/L (15-37); BILIRUBIN,TOTAL 0.6 MG/DL (0.2-1.0); BLOOD UREA NITROGEN 28 mg/dL (7-18); CALCIUM 8.7 MG/DL (8.5-10.1); CARBON DIOXIDE 25 MMOL/L (21-32); CHLORIDE 109 MMOL/L (98-107); CREATININE 1.8 MG/DL (0.55-1.30); POTASSIUM 3.8 MMOL/L (3.5-5.1); SODIUM 144 MMOL/L (136-145)
[2017-09-24 08:00] VITALS: BP 147/85
[2017-09-24] MEDS: Heparin 5000 units/ml inj SUBQ SCH ×2 (08:56→20:35)
[2017-09-24] MEDS: Docusate 100mg cap ORAL SCH ×3 (09:00→17:56)
--- NOTE | 2017-09-24 09:51 | Infectious Diseases Prog Note ---
Assessment/Plan Assessment/Plan Aspiration PNA -CXR 09/04 : Interim development of hazy interstitial and airspace disease in the right lung. This may to some extent be an artifact of less optimal inspiration, however. Interim extubation -sp cx normal ann; repeat sp cx MSSA -legionella ag urine neg Sp sepsis - Leukocytosis - Improving - No source found - Pancreatitis ? -u/a wbc 5-10, nit neg, leuk +1; cx neg -Bcx NTD (09/05 abd 09/07) -2d Echo (limited but no vegetations seen) - No Veg on KATELYN 09/10/17 - Tagged WBCs no focal uptake - MRI pelvis 09/11/17 : Diffuse symmetric edema of the bilateral buttock musculature , ? Myositis Discrete 3 x 3 x 7.3 cm fluid collection in the lateral left buttock musculature 09/13 SP No purulent material aspirated. Only small amount of blood aspirated Cx : Negative Blood Cx 09/18/17 - NGTD Urine Cx 09/18/17 - Low counts Fever: soruce ? Rhabdo vs pancreatitis - CT scan 09/19/17 - Interim development of what is probably a right buttock hematoma, measuring 6 x 3.5 by at least 11 cm, Worsening anasarca, Mild pulmonary groundglass opacity, likely represents pulmonary edema, 12 mm focus of low attenuation within the dome of the right hepatic lobe. Complex cyst , early hepatic abscess, less likely neoplasm given patient's age. Consider further evaluation with sonography to see if this is sonographically visible Diverticulosis. No evidence of diverticulitis -Cdiff neg -v/duplex no DVT -HIV ab sc and VL neg, RPR/FTA, GC/CL neg Hep C +; VL pending -ABD US: Gallbladder sludge. Negative for gallstones or dilated ducts. Equivocal increased hepatic echogenicity, if real could indicate hepatocellular disease such as fatty change. Borderline hepatomegaly. Mildly increased renal echogenicity, could indicate medical renal disease. Correlate with renal function tests. Left pleural effusion -Hep A and B immune Drug overdose -UDS + opiates, amphetamines, THC, cocaine -+empty heroin needles (found on hotel room) Multiorgan failure -LUCRECIA, - on HD -Transaminitis, (shock liver); improving -VDRF (airway protection)- extubaetd 09/03 Lactic acidosis; resolved Rhabdomyolisis; improving Pancreatitis- drug induced -neg alcohol levels Encephalopathy - improved -CT head 09/04: Unusual scalp contusion, new since prior study 08/29/2017. No evidence of underlying calvarial trauma. Negative for acute intracranial bleed or mass effect Plan: - Leukocytosis generally improving - Continue to monitor - Afebrile today Will stop Abx tomorrow if patient stable - Contuinue IV Dapto d# 10/ ( may stop Dapto if CK worsen or more than 10x Nl ) and Merrem d# 10/10 ( empirically ) - Continue Micafungin #6/6 - 09/14/17 - SP IV Micafungin # 7 ( Emperic coverage of fungemia ) -09/14/17 - S/P IV Vanco and Zosyn # 9 -09/04 SP IV Azithromycin #3 -09/03 SP Zosyn #6 - Monitor CBC/CMP, temperatures - aspiration precautions - CRP - Monitor CK - Neuro,cardio, renal, GI f/u - Consider liver abscess if leukocytosis does not resolve. Subjective Allergies: Coded Allergies: NO KNOWN ALLERGIES (Verified Allergy, Unknown, 09/02/17) Subjective No acute events Patient afebrile No abdominal pain Objective Vital Signs Last 24 Hour Vital Signs Date Time Temp Pulse Resp B/P (MAP) Pulse Ox O2 Delivery O2 Flow Rate FiO2 09/24/17 08:50 86 147/85 09/24/17 08:00 98.8 86 20 147/85 (105) 96 98.8 09/24/17 04:00 99.9 53 18 148/88 (108) 99 99.9 09/24/17 01:45 155/101 09/23/17 23:59 97.0 77 18 155/101 (119) 97 97.0 09/23/17 19:32 99.1 60 18 147/96 (113) 99 99.1 09/23/17 17:38 147/88 09/23/17 16:00 98.6 64 18 147/88 (107) 95 98.6 09/23/17 13:36 100.6 100.6 09/23/17 13:09 100.6 09/23/17 12:10 101.7 09/23/17 12:00 101.7 57 16 146/95 (112) 96 101.7 Height (Feet): 5 Height (Inches): 5.00 Weight (Pounds): 190 Objective General: NAD, Awake and talking HEENT: NCAT, MMM, EOMI Heart: RRR, no m/r/g, right HD line in place CLISA = 0 Lungs: CTAB, No W/C ABD: Soft, NT, ND, BS+ Extremity: no edema or cellulitis Neuro: A/O x 4, Grossly nonfocal Laboratory Tests Test 09/24/17 05:30 White Blood Count 17.0 K/UL (4.8-10.8) H Red Blood Count 2.55 M/UL (4.70-6.10) L Hemoglobin 8.2 G/DL (14.2-18.0) L Hematocrit 23.7 % (42.0-52.0) L Mean Corpuscular Volume 93 FL (80-99) Mean Corpuscular Hemoglobin 32.1 PG (27.0-31.0) H Mean Corpuscular Hemoglobin Concent 34.5 G/DL (32.0-36.0) Red Cell Distribution Width 11.8 % (11.6-14.8) Platelet Count 481 K/UL (150-450) H Mean Platelet Volume 6.3 FL (6.5-10.1) L Neutrophils (%) (Auto) 79.1 % (45.0-75.0) H Lymphocytes (%) (Auto) 9.3 % (20.0-45.0) L Monocytes (%) (Auto) 8.9 % (1.0-10.0) Eosinophils (%) (Auto) 1.3 % (0.0-3.0) Basophils (%) (Auto) 1.3 % (0.0-2.0) Sodium Level 144 MMOL/L (136-145) Potassium Level 3.8 MMOL/L (3.5-5.1) Chloride Level 109 MMOL/L (98-107) H Carbon Dioxide Level 25 MMOL/L (21-32) Anion Gap 10 mmol/L (5-15) Blood Urea Nitrogen 28 mg/dL (7-18) H Creatinine 1.8 MG/DL (0.55-1.30) H Estimat Glomerular Filtration Rate 42.2 mL/min (>60) Glucose Level 100 MG/DL (74-106) Calcium Level 8.7 MG/DL (8.5-10.1) Total Bilirubin 0.6 MG/DL (0.2-1.0) Aspartate Amino Transf (AST/SGOT) 36 U/L (15-37) Alanine Aminotransferase (ALT/SGPT) 27 U/L (12-78) Alkaline Phosphatase 73 U/L (46-116) Total Protein 7.1 G/DL (6.4-8.2) Albumin 2.4 G/DL (3.4-5.0) L Globulin 4.7 g/dL Albumin/Globulin Ratio 0.5 (1.0-2.7) L Current Medications Medications (Trade) Dose Ordered Sig/Krystyna Route PRN Reason Start Time Stop Time Status Last Admin Dose Admin Acetaminophen (Tylenol) 650 mg Q4H PRN ORAL Fever (temp>100.5F) 09/05/17 18:30 10/05/17 18:29 09/23/17 12:10 Aluminum Hydroxide (Amphojel) 1,920 mg Q8H ORAL 09/18/17 15:00 10/18/17 14:59 09/23/17 23:44 Amlodipine Besylate (Norvasc) 2.5 mg DAILY ORAL 09/23/17 09:00 10/23/17 08:59 09/24/17 08:50 Chlorhexidine Gluconate (Jyotsna-Hex 2%) 1 applic DAILY@2000 TOPIC 09/05/17 20:00 09/29/17 19:59 09/21/17 20:56 Clonidine HCl (Catapres Tab) 0.1 mg Q8H ORAL 09/17/17 18:00 10/10/17 03:59 09/24/17 01:45 Daptomycin 550 mg/ Sodium Chloride 55 ml @ 100 mls/hr Q48H IV 09/14/17 19:00 09/24/17 23:59 09/22/17 18:56 Dextrose (Dextrose 50%) 25 ml STAT PRN IV Hypoglycemia 09/05/17 18:30 10/05/17 18:29 Dextrose (Dextrose 50%) 50 ml STAT PRN IV Hypoglycemia 09/05/17 18:30 10/05/17 18:29 Docusate Sodium (Colace) 100 mg TID ORAL 09/17/17 13:00 10/17/17 12:59 09/23/17 12:10 Epoetin Joel (Procrit (for non ESRD use)) 3,000 units SAT-SAT-SAT SUBQ 09/23/17 21:00 10/23/17 20:59 09/23/17 21:45 Heparin Sodium (Porcine) (Heparin 5000 units/ml) 5,000 units EVERY 12 HOURS SUBQ 09/05/17 21:00 09/28/17 20:59 09/24/17 08:56 Meropenem 500 mg/ Sodium Chloride 55 ml @ 110 mls/hr Q24H IVPB 09/15/17 16:00 09/24/17 23:59 09/23/17 16:07 Micafungin Sodium 100 mg/Sodium Chloride 110 ml @ 110 mls/hr Q24H IVPB 09/18/17 18:00 09/25/17 17:59 09/23/17 18:18 Mirtazapine (Remeron) 15 mg BEDTIME ORAL 09/05/17 21:00 10/04/17 20:59 09/23/17 21:45 Nitroglycerin (Ntg) 0.4 mg Q5M PRN SL Prn Chest Pain 09/05/17 18:30 09/28/17 14:44 Pantoprazole (Protonix) 40 mg Q12HR ORAL 09/18/17 14:00 10/18/17 13:59 09/24/17 08:50 Potassium Chloride (K-Dur) 40 meq TWICE A DAY GT 09/22/17 18:00 10/22/17 17:59 09/24/17 08:50 Quetiapine Fumarate (SEROquel) 50 mg DAILY ORAL 09/17/17 09:00 10/17/17 08:59 09/24/17 08:50 Quetiapine Fumarate (SEROquel) 50 mg Q4H PRN ORAL agitation 09/10/17 14:00 10/10/17 13:59 09/18/17 01:47 Quetiapine Fumarate (SEROquel) 50 mg QLUNCH ORAL 09/17/17 11:30 10/17/17 11:29 09/23/17 12:10 Quetiapine Fumarate (SEROquel) 100 mg BEDTIME ORAL 09/16/17 21:00 10/16/17 20:59 09/23/17 21:45 Sevelamer Carbonate (Renvela) 1,600 mg THREE TIMES A DAY ORAL 09/18/17 09:00 10/18/17 08:59 09/24/17 08:50 Tamsulosin HCl (Flomax) 0.4 mg BEDTIME ORAL 09/20/17 12:00 10/20/17 11:59 09/23/17 21:45 Jean Cervantes M.D. Sep 24, 2017 09:51
--- NOTE | 2017-09-24 11:53 | Pulmonology Progress Note ---
Assessment/Plan Problems: (1) Respiratory failure Assessment & Plan: improved (2) LUCERCIA (acute kidney injury) (3) Severe sepsis (4) Overdose Assessment/Plan renal failure improving WBC still high, pnn culture f/u id recommendations pt/ot Subjective ROS Limited/Unobtainable: No Constitutional: Reports: no symptoms HEENT: Repors: no symptoms Respiratory: Reports: no symptoms Cardiovascular: Reports: no symptoms Gastrointestinal/Abdominal: Reports: no symptoms Allergies: Coded Allergies: NO KNOWN ALLERGIES (Verified Allergy, Unknown, 09/02/17) Objective Last 24 Hour Vital Signs Date Time Temp Pulse Resp B/P (MAP) Pulse Ox O2 Delivery O2 Flow Rate FiO2 09/24/17 11:09 148/94 09/24/17 08:50 86 147/85 09/24/17 08:00 98.8 86 20 147/85 (105) 96 98.8 09/24/17 04:00 99.9 53 18 148/88 (108) 99 99.9 09/24/17 01:45 155/101 09/23/17 23:59 97.0 77 18 155/101 (119) 97 97.0 09/23/17 19:32 99.1 60 18 147/96 (113) 99 99.1 09/23/17 17:38 147/88 09/23/17 16:00 98.6 64 18 147/88 (107) 95 98.6 09/23/17 13:36 100.6 100.6 09/23/17 13:09 100.6 09/23/17 12:10 101.7 09/23/17 12:00 101.7 57 16 146/95 (112) 96 101.7 Intake and Output 09/23/17 09/24/17 19:00 07:00 Intake Total 600 ml 110 ml Output Total 1200 ml 2800 ml Balance -600 ml -2690 ml Intake Oral 600 ml IV Total 110 ml Output Urine Total 1200 ml 2800 ml # Bowel Movements 5 General Appearance: WD/WN HEENT: normocephalic Respiratory/Chest: chest wall non-tender, lungs clear Cardiovascular: normal peripheral pulses, normal rate Abdomen: normal bowel sounds, soft, non tender Genitourinary: normal external genitalia 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 Lymphatic: no neck adenopathy Laboratory Tests 09/24/17 05:30: White Blood Count 17.0H, Red Blood Count 2.55L, Hemoglobin 8.2L, Hematocrit 23.7L, Mean Corpuscular Volume 93, Mean Corpuscular Hemoglobin 32.1H, Mean Corpuscular Hemoglobin Concent 34.5, Red Cell Distribution Width 11.8, Platelet Count 481H, Mean Platelet Volume 6.3L, Neutrophils (%) (Auto) 79.1H, Lymphocytes (%) (Auto) 9.3L, Monocytes (%) (Auto) 8.9, Eosinophils (%) (Auto) 1.3, Basophils (%) (Auto) 1.3, Sodium Level 144, Potassium Level 3.8, Chloride Level 109H, Carbon Dioxide Level 25, Anion Gap 10, Blood Urea Nitrogen 28H, Creatinine 1.8H, Estimat Glomerular Filtration Rate 42.2, Glucose Level 100, Calcium Level 8.7, Total Bilirubin 0.6, Aspartate Amino Transf (AST/SGOT) 36, Alanine Aminotransferase (ALT/SGPT) 27, Alkaline Phosphatase 73, Total Protein 7.1, Albumin 2.4L, Globulin 4.7, Albumin/Globulin Ratio 0.5L Current Medications Medications (Trade) Dose Ordered Sig/Krystyna Route PRN Reason Start Time Stop Time Status Last Admin Dose Admin Acetaminophen (Tylenol) 650 mg Q4H PRN ORAL Fever (temp>100.5F) 09/05/17 18:30 10/05/17 18:29 09/23/17 12:10 Aluminum Hydroxide (Amphojel) 1,920 mg Q8H ORAL 09/18/17 15:00 10/18/17 14:59 09/23/17 23:44 Amlodipine Besylate (Norvasc) 2.5 mg DAILY ORAL 09/23/17 09:00 10/23/17 08:59 09/24/17 08:50 Chlorhexidine Gluconate (Jyotsna-Hex 2%) 1 applic DAILY@2000 TOPIC 09/05/17 20:00 09/29/17 19:59 09/21/17 20:56 Clonidine HCl (Catapres Tab) 0.1 mg Q8H ORAL 09/17/17 18:00 10/10/17 03:59 09/24/17 11:09 Daptomycin 550 mg/ Sodium Chloride 55 ml @ 100 mls/hr Q48H IV 09/14/17 19:00 09/24/17 23:59 09/22/17 18:56 Dextrose (Dextrose 50%) 25 ml STAT PRN IV Hypoglycemia 09/05/17 18:30 10/05/17 18:29 Dextrose (Dextrose 50%) 50 ml STAT PRN IV Hypoglycemia 09/05/17 18:30 10/05/17 18:29 Docusate Sodium (Colace) 100 mg TID ORAL 09/17/17 13:00 10/17/17 12:59 09/23/17 12:10 Epoetin Joel (Procrit (for non ESRD use)) 3,000 units SAT-SAT-SAT SUBQ 09/23/17 21:00 10/23/17 20:59 09/23/17 21:45 Heparin Sodium (Porcine) (Heparin 5000 units/ml) 5,000 units EVERY 12 HOURS SUBQ 09/05/17 21:00 09/28/17 20:59 09/24/17 08:56 Meropenem 500 mg/ Sodium Chloride 55 ml @ 110 mls/hr Q24H IVPB 09/15/17 16:00 09/24/17 23:59 09/23/17 16:07 Micafungin Sodium 100 mg/Sodium Chloride 110 ml @ 110 mls/hr Q24H IVPB 09/18/17 18:00 09/25/17 17:59 09/23/17 18:18 Mirtazapine (Remeron) 15 mg BEDTIME ORAL 09/05/17 21:00 10/04/17 20:59 09/23/17 21:45 Nitroglycerin (Ntg) 0.4 mg Q5M PRN SL Prn Chest Pain 09/05/17 18:30 09/28/17 14:44 Pantoprazole (Protonix) 40 mg Q12HR ORAL 09/18/17 14:00 10/18/17 13:59 09/24/17 08:50 Potassium Chloride (K-Dur) 40 meq TWICE A DAY GT 09/22/17 18:00 10/22/17 17:59 09/24/17 08:50 Quetiapine Fumarate (SEROquel) 50 mg DAILY ORAL 09/17/17 09:00 10/17/17 08:59 09/24/17 08:50 Quetiapine Fumarate (SEROquel) 50 mg Q4H PRN ORAL agitation 09/10/17 14:00 10/10/17 13:59 09/18/17 01:47 Quetiapine Fumarate (SEROquel) 50 mg QLUNCH ORAL 09/17/17 11:30 10/17/17 11:29 09/24/17 11:09 Quetiapine Fumarate (SEROquel) 100 mg BEDTIME ORAL 09/16/17 21:00 10/16/17 20:59 09/23/17 21:45 Sevelamer Carbonate (Renvela) 1,600 mg THREE TIMES A DAY ORAL 09/18/17 09:00 10/18/17 08:59 09/24/17 08:50 Tamsulosin HCl (Flomax) 0.4 mg BEDTIME ORAL 09/20/17 12:00 10/20/17 11:59 09/23/17 21:45 Arpita Andre MD Sep 24, 2017 11:53
[2017-09-24 12:00] VITALS: BP 148/94
--- NOTE | 2017-09-24 12:27 | General Progress Note ---
Assessment/Plan Status: stable Assessment/Plan # Anemia of chronic disease. Anemia w/u has been reviewed. Will trend CBC daily. --> Continue to closely monitor for stability. --> Ferritin and tibc reviewed, consistent with anemia of chronic disease --> Hgb goal above >7 --> 09/15: 1 unit PRBC, 09/19: 1 unit, --> 09/24: Hgb at 8.2 --> given elev Cr, will start low dose epogen once a week dosing # Leukocytosis. due to infection, however no source is found. AFEBRILE --> Closely monitor for improvement. --> 09/24: WBC 17.0, elevated --> Currently on IV abx. --> Consider liver abscess if leukocytosis does not resolve. # Thrombocytosis. Likely reactive process to anemia --> Closely monitor PLT count for improvement. --> should improve with improvement in anemia as well --> 09/24: PLT count of 481, elevated. # Transaminitis. Trending downwards. The time the note was entered does not necessarily correspond to the time the patient was seen. Subjective Date patient seen: Sep 24, 2017 ROS Limited/Unobtainable: Yes Hematologic/Lymphatic: Reports: anemia Allergies: Coded Allergies: NO KNOWN ALLERGIES (Verified Allergy, Unknown, 09/02/17) All Systems: reviewed and negative except above Subjective Pt awake and alert. No acute events. H/H stable. Objective Last 24 Hour Vital Signs Date Time Temp Pulse Resp B/P (MAP) Pulse Ox O2 Delivery O2 Flow Rate FiO2 09/24/17 11:09 148/94 09/24/17 08:50 86 147/85 09/24/17 08:00 98.8 86 20 147/85 (105) 96 98.8 09/24/17 04:00 99.9 53 18 148/88 (108) 99 99.9 09/24/17 01:45 155/101 09/23/17 23:59 97.0 77 18 155/101 (119) 97 97.0 09/23/17 19:32 99.1 60 18 147/96 (113) 99 99.1 09/23/17 17:38 147/88 09/23/17 16:00 98.6 64 18 147/88 (107) 95 98.6 09/23/17 13:36 100.6 100.6 09/23/17 13:09 100.6 Intake and Output 09/23/17 09/24/17 19:00 07:00 Intake Total 600 ml 110 ml Output Total 1200 ml 2800 ml Balance -600 ml -2690 ml Intake Oral 600 ml IV Total 110 ml Output Urine Total 1200 ml 2800 ml # Bowel Movements 5 Laboratory Tests 09/24/17 05:30: White Blood Count 17.0H, Red Blood Count 2.55L, Hemoglobin 8.2L, Hematocrit 23.7L, Mean Corpuscular Volume 93, Mean Corpuscular Hemoglobin 32.1H, Mean Corpuscular Hemoglobin Concent 34.5, Red Cell Distribution Width 11.8, Platelet Count 481H, Mean Platelet Volume 6.3L, Neutrophils (%) (Auto) 79.1H, Lymphocytes (%) (Auto) 9.3L, Monocytes (%) (Auto) 8.9, Eosinophils (%) (Auto) 1.3, Basophils (%) (Auto) 1.3, Sodium Level 144, Potassium Level 3.8, Chloride Level 109H, Carbon Dioxide Level 25, Anion Gap 10, Blood Urea Nitrogen 28H, Creatinine 1.8H, Estimat Glomerular Filtration Rate 42.2, Glucose Level 100, Calcium Level 8.7, Total Bilirubin 0.6, Aspartate Amino Transf (AST/SGOT) 36, Alanine Aminotransferase (ALT/SGPT) 27, Alkaline Phosphatase 73, Total Protein 7.1, Albumin 2.4L, Globulin 4.7, Albumin/Globulin Ratio 0.5L Height (Feet): 5 Height (Inches): 5.00 Weight (Pounds): 190 General Appearance: no apparent distress EENT: PERRL/EOMI Neck: normal alignment Cardiovascular: normal peripheral pulses Respiratory/Chest: no respiratory distress Abdomen: soft Diogenes Flores MD Sep 24, 2017 12:27
--- NOTE | 2017-09-24 14:14 | General Progress Note ---
Assessment/Plan Problem List: (1) Substance abuse ICD Codes: F19.10 - Other psychoactive substance abuse, uncomplicated SNOMED: 31680541 (2) Respiratory failure ICD Codes: J96.90 - Respiratory failure, unspecified, unspecified whether with hypoxia or hypercapnia SNOMED: 595064329 Qualifiers: Qualified Codes: J96.01 - Acute respiratory failure with hypoxia (3) Rhabdomyolysis ICD Codes: M62.82 - Rhabdomyolysis SNOMED: 167837927 Qualifiers: Qualified Codes: T79.6XXA - Traumatic ischemia of muscle, initial encounter (4) NSTEMI (non-ST elevated myocardial infarction) ICD Codes: I21.4 - Non-ST elevation (NSTEMI) myocardial infarction SNOMED: 056212457 (5) LUCRECIA (acute kidney injury) ICD Codes: N17.9 - Acute kidney failure, unspecified SNOMED: 83101746 Status: stable, progressing Assessment/Plan ot pt diet abx neuro psyc eval cbc bmp am aru eval Subjective Constitutional: Reports: weakness Allergies: Coded Allergies: NO KNOWN ALLERGIES (Verified Allergy, Unknown, 09/02/17) All Systems: reviewed and negative except above Subjective calm in bed sleepy Objective Last 24 Hour Vital Signs Date Time Temp Pulse Resp B/P (MAP) Pulse Ox O2 Delivery O2 Flow Rate FiO2 09/24/17 12:00 98.6 64 19 148/94 (112) 97 98.6 09/24/17 11:09 148/94 09/24/17 08:50 86 147/85 09/24/17 08:00 98.8 86 20 147/85 (105) 96 98.8 09/24/17 04:00 99.9 53 18 148/88 (108) 99 99.9 09/24/17 01:45 155/101 09/23/17 23:59 97.0 77 18 155/101 (119) 97 97.0 09/23/17 19:32 99.1 60 18 147/96 (113) 99 99.1 09/23/17 17:38 147/88 09/23/17 16:00 98.6 64 18 147/88 (107) 95 98.6 Intake and Output 09/23/17 09/24/17 19:00 07:00 Intake Total 600 ml 110 ml Output Total 1200 ml 2800 ml Balance -600 ml -2690 ml Intake Oral 600 ml IV Total 110 ml Output Urine Total 1200 ml 2800 ml # Bowel Movements 5 Laboratory Tests 09/24/17 05:30: White Blood Count 17.0H, Red Blood Count 2.55L, Hemoglobin 8.2L, Hematocrit 23.7L, Mean Corpuscular Volume 93, Mean Corpuscular Hemoglobin 32.1H, Mean Corpuscular Hemoglobin Concent 34.5, Red Cell Distribution Width 11.8, Platelet Count 481H, Mean Platelet Volume 6.3L, Neutrophils (%) (Auto) 79.1H, Lymphocytes (%) (Auto) 9.3L, Monocytes (%) (Auto) 8.9, Eosinophils (%) (Auto) 1.3, Basophils (%) (Auto) 1.3, Sodium Level 144, Potassium Level 3.8, Chloride Level 109H, Carbon Dioxide Level 25, Anion Gap 10, Blood Urea Nitrogen 28H, Creatinine 1.8H, Estimat Glomerular Filtration Rate 42.2, Glucose Level 100, Calcium Level 8.7, Total Bilirubin 0.6, Aspartate Amino Transf (AST/SGOT) 36, Alanine Aminotransferase (ALT/SGPT) 27, Alkaline Phosphatase 73, Total Protein 7.1, Albumin 2.4L, Globulin 4.7, Albumin/Globulin Ratio 0.5L Height (Feet): 5 Height (Inches): 5.00 Weight (Pounds): 190 General Appearance: lethargic EENT: normal ENT inspection Neck: normal alignment Cardiovascular: normal peripheral pulses, normal rate, regular rhythm Respiratory/Chest: chest wall non-tender, lungs clear, normal breath sounds Abdomen: normal bowel sounds, non tender, soft Extremities: normal inspection Edema: no edema noted Arm (L), no edema noted Arm (R), no edema noted Leg (L), no edema noted Leg (R), no edema noted Pedal (L), no edema noted Pedal (R), no edema noted Generalized Neurologic: motor weakness Skin: normal pigmentation, warm/dry Reid Anaya DO Sep 24, 2017 14:14
--- NOTE | 2017-09-24 14:49 | GI Progress Note ---
Assessment/Plan Problems: (1) Severe sepsis ICD Codes: A41.9 - Sepsis, unspecified organism; R65.20 - Severe sepsis without septic shock SNOMED: 52437656 (2) Rhabdomyolysis ICD Codes: M62.82 - Rhabdomyolysis SNOMED: 382700341 Qualifiers: Qualified Codes: T79.6XXA - Traumatic ischemia of muscle, initial encounter (3) Aspiration pneumonia ICD Codes: J69.0 - Pneumonitis due to inhalation of food and vomit SNOMED: 987409259 Qualifiers: Qualified Codes: J69.0 - Pneumonitis due to inhalation of food and vomit (4) Substance abuse ICD Codes: F19.10 - Other psychoactive substance abuse, uncomplicated SNOMED: 49119142 (5) Transaminitis ICD Codes: R74.0 - Nonspecific elevation of levels of transaminase and lactic acid dehydrogenase [LDH] SNOMED: 036559847, 403474439 Status: stable, progressing Status Narrative Discussed with Dr. Chavez. Assessment/Plan Hep A immunity Hep C positive transaminitis >> downtrending, near normal levels cdiff negative stool culture >> gram negative bacillus elevated lipase >> now normal OB stool negative x2 supportive care prn transfusions renal diet abx supportive care ppi fu labs, lipase, trend LFTs outpatient Hep C tx The patient was seen and examined at bedside and all new and available data was reviewed in the patients chart. I agree with the above findings, impression and plan. (Patient seen earlier today. Signature stamp does not reflect patient encounter time.). - Efrain Chavez MD Subjective Gastrointestinal/Abdominal: Reports: no symptoms Objective Last 24 Hour Vital Signs Date Time Temp Pulse Resp B/P (MAP) Pulse Ox O2 Delivery O2 Flow Rate FiO2 09/24/17 12:00 98.6 64 19 148/94 (112) 97 98.6 09/24/17 11:09 148/94 09/24/17 08:50 86 147/85 09/24/17 08:00 98.8 86 20 147/85 (105) 96 98.8 09/24/17 04:00 99.9 53 18 148/88 (108) 99 99.9 09/24/17 01:45 155/101 09/23/17 23:59 97.0 77 18 155/101 (119) 97 97.0 09/23/17 19:32 99.1 60 18 147/96 (113) 99 99.1 09/23/17 17:38 147/88 09/23/17 16:00 98.6 64 18 147/88 (107) 95 98.6 Intake and Output 09/23/17 09/24/17 19:00 07:00 Intake Total 600 ml 110 ml Output Total 1200 ml 2800 ml Balance -600 ml -2690 ml Intake Oral 600 ml IV Total 110 ml Output Urine Total 1200 ml 2800 ml # Bowel Movements 5 Laboratory Tests Test 09/24/17 05:30 White Blood Count 17.0 K/UL (4.8-10.8) H Red Blood Count 2.55 M/UL (4.70-6.10) L Hemoglobin 8.2 G/DL (14.2-18.0) L Hematocrit 23.7 % (42.0-52.0) L Mean Corpuscular Volume 93 FL (80-99) Mean Corpuscular Hemoglobin 32.1 PG (27.0-31.0) H Mean Corpuscular Hemoglobin Concent 34.5 G/DL (32.0-36.0) Red Cell Distribution Width 11.8 % (11.6-14.8) Platelet Count 481 K/UL (150-450) H Mean Platelet Volume 6.3 FL (6.5-10.1) L Neutrophils (%) (Auto) 79.1 % (45.0-75.0) H Lymphocytes (%) (Auto) 9.3 % (20.0-45.0) L Monocytes (%) (Auto) 8.9 % (1.0-10.0) Eosinophils (%) (Auto) 1.3 % (0.0-3.0) Basophils (%) (Auto) 1.3 % (0.0-2.0) Sodium Level 144 MMOL/L (136-145) Potassium Level 3.8 MMOL/L (3.5-5.1) Chloride Level 109 MMOL/L (98-107) H Carbon Dioxide Level 25 MMOL/L (21-32) Anion Gap 10 mmol/L (5-15) Blood Urea Nitrogen 28 mg/dL (7-18) H Creatinine 1.8 MG/DL (0.55-1.30) H Estimat Glomerular Filtration Rate 42.2 mL/min (>60) Glucose Level 100 MG/DL (74-106) Calcium Level 8.7 MG/DL (8.5-10.1) Total Bilirubin 0.6 MG/DL (0.2-1.0) Aspartate Amino Transf (AST/SGOT) 36 U/L (15-37) Alanine Aminotransferase (ALT/SGPT) 27 U/L (12-78) Alkaline Phosphatase 73 U/L (46-116) Total Protein 7.1 G/DL (6.4-8.2) Albumin 2.4 G/DL (3.4-5.0) L Globulin 4.7 g/dL Albumin/Globulin Ratio 0.5 (1.0-2.7) L Height (Feet): 5 Height (Inches): 5.00 Weight (Pounds): 190 General Appearance: WD/WN, no apparent distress, alert Cardiovascular: normal rate Respiratory/Chest: normal breath sounds, no respiratory distress Abdominal Exam: normal bowel sounds, non tender, soft Extremities: normal range of motion, non-tender Carlos Lopez NP Sep 24, 2017 14:49
[2017-09-24] MEDS: Meropenem 500mg/NS 55ml IVPB SCH ×2 (15:41)
[2017-09-24 15:42] VITALS: BP 137/94
[2017-09-24] MEDS: Micafungin 100 MG in NS 110 ML IVPB SCH (17:55)
--- NOTE | 2017-09-24 18:40 | Neurology Progress Note ---
Interim History Interim History Interim History Mr. Stover feels well. He was awake and alert. The mind is clearer. He feels less confused. He denies any agitation. He feels more energetic. He is less forgetful. His appetite is better. He is generally stronger. He says he stood up and took a few steps. He denies any new neurologic symptoms. He specifically denies any increased weakness on one side or the other, numbness on one side or the other, problems with speech, problems with language , or problems with vision. Review of Systems Neuro Review of Systems Benign. Objective Physical Exam Last Vital Signs Date Time Temp Pulse Resp B/P (MAP) Pulse Ox O2 Delivery O2 Flow Rate FiO2 09/24/17 17:58 98.6 09/24/17 17:56 137/94 09/24/17 15:42 65 19 97 09/21/17 21:00 Room Air Laboratory Tests Test 09/24/17 05:30 White Blood Count 17.0 K/UL (4.8-10.8) H Red Blood Count 2.55 M/UL (4.70-6.10) L Hemoglobin 8.2 G/DL (14.2-18.0) L Hematocrit 23.7 % (42.0-52.0) L Mean Corpuscular Volume 93 FL (80-99) Mean Corpuscular Hemoglobin 32.1 PG (27.0-31.0) H Mean Corpuscular Hemoglobin Concent 34.5 G/DL (32.0-36.0) Red Cell Distribution Width 11.8 % (11.6-14.8) Platelet Count 481 K/UL (150-450) H Mean Platelet Volume 6.3 FL (6.5-10.1) L Neutrophils (%) (Auto) 79.1 % (45.0-75.0) H Lymphocytes (%) (Auto) 9.3 % (20.0-45.0) L Monocytes (%) (Auto) 8.9 % (1.0-10.0) Eosinophils (%) (Auto) 1.3 % (0.0-3.0) Basophils (%) (Auto) 1.3 % (0.0-2.0) Sodium Level 144 MMOL/L (136-145) Potassium Level 3.8 MMOL/L (3.5-5.1) Chloride Level 109 MMOL/L (98-107) H Carbon Dioxide Level 25 MMOL/L (21-32) Anion Gap 10 mmol/L (5-15) Blood Urea Nitrogen 28 mg/dL (7-18) H Creatinine 1.8 MG/DL (0.55-1.30) H Estimat Glomerular Filtration Rate 42.2 mL/min (>60) Glucose Level 100 MG/DL (74-106) Calcium Level 8.7 MG/DL (8.5-10.1) Total Bilirubin 0.6 MG/DL (0.2-1.0) Aspartate Amino Transf (AST/SGOT) 36 U/L (15-37) Alanine Aminotransferase (ALT/SGPT) 27 U/L (12-78) Alkaline Phosphatase 73 U/L (46-116) Total Protein 7.1 G/DL (6.4-8.2) Albumin 2.4 G/DL (3.4-5.0) L Globulin 4.7 g/dL Albumin/Globulin Ratio 0.5 (1.0-2.7) L Neurologic Exam Objective PHYSICAL EXAMINATION: GENERAL: He is a well-developed, well-nourished, gentleman, lying in bed. HEAD: Normocephalic and atraumatic. EENT: Examination benign. NECK: No neck rigidity was observed. NEUROLOGIC EXAMINATION: MENTAL STATUS EXAMINATION: He was awake and alert, when aroused. He was oriented to self, and [facility] and September 24, 2017. He was able to recall 3/3 words immediately, but could only remember 2/3 in 1 and 3 minutes. He was able to remember presidents Trump through [employer]. His mathematical skills were minimally impaired. His visuospatial function was good. SPEECH: He had no dysarthria. LANGUAGE: He had a moderate anomia. CRANIAL NERVE EXAMINATION: II: The visual dinh were intact on confrontation testing. III, IV & : The external ocular movements were present. The pupils were 3 mm in diameter and reactive sluggishly to light. V: He had normal facial sensations and the temporales, masseters and pterygoids functioned well. VII: He had normal facial expressions and no facial asymmetry. VIII: He was able to hear well and had no nystagmus. IX: The palate moved symmetrically on phonation. X: He had no hoarseness of voice. XI: The sternocleidomastoids and trapezii functioned well. XII: The tongue was in the midline. MOTOR SYSTEM: The tone was normal in all four extremities. Examination of muscle mass revealed no focal wasting. Examination of power revealed G 5/5 power in all muscle groups except for G 0/5 in the right ankle dorsiflexors, toe extensors, ankle plantar flexors and toe flexors, G 5-/5 in the left ankle dorsiflexors and toe extensors, and G 4/5 in the iliopsoas muscle bilaterally. SENSORY EXAMINATION: He had altered sensations in the right peroneal distribution. REFLEXES: Trace+ and bilaterally symmetrical at the biceps, triceps, brachioradialis, and knees, 0 at both ankles. The plantar responses were flexor bilaterally. COORDINATION: He performed well on finger to nose testing. STANCE & GAIT: Could not be tested. Impression/Recommendations Diagnostic Impression 1. Mr. Enoch Stover is a 37-year-old, gentleman, of unknown handedness, who was found unconscious in a hotel room on 08/29/2017 after he had used multiple drugs. He was found to be possibly febrile, hypoglycemic, and breathing rapidly. Since then, he has been hospitalized and treated for sepsis. 2. He feels well. He was awake and alert. The mind is clearer. He feels less confused. He denies any agitation. He feels more energetic. He is less forgetful. His appetite is better. He is generally stronger. He says he stood up and took a few steps. He denies any new neurologic symptoms. 3. On neurological examination, at this time, he is awake and alert. He is fully oriented. He has mild problems with memory. His speech is normal. He has a mild anomia. His cranial nerves are functioning normally. His motor function is relatively good, he however has mild proximal lower extremity weakness, and mild distal left lower extremity weakness with no movement in the right ankle and toes. His sensations are altered in the right peroneal distribution. His deep tendon reflexes are diminished but his plantar responses are flexor. He also does not demonstrate any definite focal or lateralizing neurological findings. 4. The CT scan of the brain performed on 08/29/2017 and repeated on 09/04/17 is benign for acute pathology. 5. Laboratory data obtained thus far revealed, on admission, his hemoglobin was elevated to 18.4, his WBC was normal at 8,500, but since then his WBCs have peaked to 17,200. His chemistry panel on admission revealed BUN elevated to 31 , creatinine elevated to 3.6, lactic acid elevated to 5.5, bilirubin elevated at 1.2, AST elevated at 478, ALT elevated to 159, CK elevated to greater than 10 ,000, troponin elevated at 1.01, BNP elevated to 2143. His urine toxicology screen was positive for opiates, amphetamines, cocaine, and marijuana. His INR was elevated at 1.2. His TSH is elevated at 4.72. The T3 is low but the T4 is normal. 6. The patient's history, neurological examination, laboratory data, and imaging studies are most compatible with an altered mental state due to a toxic metabolic encephalopathy. 7. The most likely etiology for the encephalopathy is the sepsis, possibly a period of hypoglycemia and ongoing multiple metabolic imbalances and the toxic imbalances. In addition the use of mind-altering drugs could have also been contributing. 8. His encephalopathy is improving. 9. He has also developed bilateral mild proximal lower extremity weakness, and in addition severe right distal lower extremity weakness with severe right peroneal and tibial nerve dysfunction. His sensations are also altered in the right peroneal distribution. Recommendations 1. Continue present management. 2. Continue aggressive treatment of the patient's infectious process. 3. Aggressive management of toxic/metabolic imbalances. 4. AFO for right foot drop. 5. Make sure that his legs are not kept on any hard surface. 6. PT/OT. 7. Observe closely. Chris Ricketts M.D., M.S.P.CHRIS GARDINER Sep 24, 2017 18:40
[2017-09-24 20:00] VITALS: BP 148/96
--- NOTE | 2017-09-24 20:16 | Nephrology Progress Note ---
Assessment/Plan Assessment 1. Acute rhabdomyolysis yesterday rivera cath was placed had more than 3000 ml of urine out continue to have good urine out put 2. Hypocalcemia. 3. Hypokalemia Plan hold dialysis monitoring renal function monitoring out put Subjective Subjective alert and awake continue to have good urine out put Objective Objective Last 24 Hour Vital Signs Date Time Temp Pulse Resp B/P (MAP) Pulse Ox O2 Delivery O2 Flow Rate FiO2 09/24/17 18:57 98.6 09/24/17 17:58 98.6 09/24/17 17:56 137/94 09/24/17 15:42 98.6 65 19 137/94 (108) 97 98.6 09/24/17 12:00 98.6 64 19 148/94 (112) 97 98.6 09/24/17 11:09 148/94 09/24/17 08:50 86 147/85 09/24/17 08:00 98.8 86 20 147/85 (105) 96 98.8 09/24/17 04:00 99.9 53 18 148/88 (108) 99 99.9 09/24/17 01:45 155/101 09/23/17 23:59 97.0 77 18 155/101 (119) 97 97.0 Intake and Output 09/23/17 09/24/17 19:00 07:00 Intake Total 600 ml 110 ml Output Total 1200 ml 2800 ml Balance -600 ml -2690 ml Intake Oral 600 ml IV Total 110 ml Output Urine Total 1200 ml 2800 ml # Bowel Movements 5 Laboratory Tests 09/24/17 05:30: White Blood Count 17.0H, Red Blood Count 2.55L, Hemoglobin 8.2L, Hematocrit 23.7L, Mean Corpuscular Volume 93, Mean Corpuscular Hemoglobin 32.1H, Mean Corpuscular Hemoglobin Concent 34.5, Red Cell Distribution Width 11.8, Platelet Count 481H, Mean Platelet Volume 6.3L, Neutrophils (%) (Auto) 79.1H, Lymphocytes (%) (Auto) 9.3L, Monocytes (%) (Auto) 8.9, Eosinophils (%) (Auto) 1.3, Basophils (%) (Auto) 1.3, Sodium Level 144, Potassium Level 3.8, Chloride Level 109H, Carbon Dioxide Level 25, Anion Gap 10, Blood Urea Nitrogen 28H, Creatinine 1.8H, Estimat Glomerular Filtration Rate 42.2, Glucose Level 100, Calcium Level 8.7, Total Bilirubin 0.6, Aspartate Amino Transf (AST/SGOT) 36, Alanine Aminotransferase (ALT/SGPT) 27, Alkaline Phosphatase 73, Total Protein 7.1, Albumin 2.4L, Globulin 4.7, Albumin/Globulin Ratio 0.5L Height (Feet): 5 Height (Inches): 5.00 Weight (Pounds): 190 Objective HEAD AND NECK: No JVP. No LAD. G-tube is in place. Head is atraumatic and normocephalic. LUNGS: He has decreased breathing sounds on the both sides. CARDIAC: Regular rate and rhythm. S1 and S2. No murmur. No rub. ABDOMEN: Soft. Bowel sounds positive. EXTREMITIES: No edema. No clubbing. No cyanosis. Aixa Veloz MD Sep 24, 2017 20:16
[2017-09-24] MEDS: Tamsulosin 0.4mg cap ORAL SCH (20:30)
[2017-09-24] MEDS: Dyna-Hex 2% Top Sol 2oz TOPIC SCH (20:30)
[2017-09-24] MEDS: DAPTOmycin 550 MG in NS 55 ML IV SCH (20:30)
--- NOTE | 2017-09-24 23:57 | Cardiology Progress Note ---
Assessment/Plan Assessment/Plan 1. Sepsis, Continue IV ABx per ID recs. 2. Elevated troponin I level likely due to myocarditis, sepsis, or due to shock. Continue conservative management. 3. Sinus tachycardia, resolved, continue hydration. 4. HTN, continue amlodipine daily. 5. Acute pancreatitis with systemic inflammatory response disease. 6. LUCRECIA, on HD, improving. 7. Shock liver, resolved. 8. Toxic metabolic encephalopathy Subjective Subjective No cardiac events noted. Denies chest pain or SOB. Objective Last 24 Hour Vital Signs Date Time Temp Pulse Resp B/P (MAP) Pulse Ox O2 Delivery O2 Flow Rate FiO2 09/24/17 20:00 98.2 66 19 148/96 (113) 100 98.2 09/24/17 18:57 98.6 09/24/17 17:58 98.6 09/24/17 17:56 137/94 09/24/17 15:42 98.6 65 19 137/94 (108) 97 98.6 09/24/17 12:00 98.6 64 19 148/94 (112) 97 98.6 09/24/17 11:09 148/94 09/24/17 08:50 86 147/85 09/24/17 08:00 98.8 86 20 147/85 (105) 96 98.8 09/24/17 04:00 99.9 53 18 148/88 (108) 99 99.9 09/24/17 01:45 155/101 09/23/17 23:59 97.0 77 18 155/101 (119) 97 97.0 Intake and Output 09/23/17 09/24/17 19:00 07:00 Intake Total 600 ml 110 ml Output Total 1200 ml 2800 ml Balance -600 ml -2690 ml Intake Oral 600 ml IV Total 110 ml Output Urine Total 1200 ml 2800 ml # Bowel Movements 5 2D Echo: KATELYN: Nl LV systolic & diastolic function, Mild MR, No vegetations, Nl RVSP Laboratory Tests Test 09/24/17 05:30 White Blood Count 17.0 K/UL (4.8-10.8) H Red Blood Count 2.55 M/UL (4.70-6.10) L Hemoglobin 8.2 G/DL (14.2-18.0) L Hematocrit 23.7 % (42.0-52.0) L Mean Corpuscular Volume 93 FL (80-99) Mean Corpuscular Hemoglobin 32.1 PG (27.0-31.0) H Mean Corpuscular Hemoglobin Concent 34.5 G/DL (32.0-36.0) Red Cell Distribution Width 11.8 % (11.6-14.8) Platelet Count 481 K/UL (150-450) H Mean Platelet Volume 6.3 FL (6.5-10.1) L Neutrophils (%) (Auto) 79.1 % (45.0-75.0) H Lymphocytes (%) (Auto) 9.3 % (20.0-45.0) L Monocytes (%) (Auto) 8.9 % (1.0-10.0) Eosinophils (%) (Auto) 1.3 % (0.0-3.0) Basophils (%) (Auto) 1.3 % (0.0-2.0) Sodium Level 144 MMOL/L (136-145) Potassium Level 3.8 MMOL/L (3.5-5.1) Chloride Level 109 MMOL/L (98-107) H Carbon Dioxide Level 25 MMOL/L (21-32) Anion Gap 10 mmol/L (5-15) Blood Urea Nitrogen 28 mg/dL (7-18) H Creatinine 1.8 MG/DL (0.55-1.30) H Estimat Glomerular Filtration Rate 42.2 mL/min (>60) Glucose Level 100 MG/DL (74-106) Calcium Level 8.7 MG/DL (8.5-10.1) Total Bilirubin 0.6 MG/DL (0.2-1.0) Aspartate Amino Transf (AST/SGOT) 36 U/L (15-37) Alanine Aminotransferase (ALT/SGPT) 27 U/L (12-78) Alkaline Phosphatase 73 U/L (46-116) Total Protein 7.1 G/DL (6.4-8.2) Albumin 2.4 G/DL (3.4-5.0) L Globulin 4.7 g/dL Albumin/Globulin Ratio 0.5 (1.0-2.7) L Objective HEENT: Atraumatic and normocephalic. Pupils are equal, round, and reactive to light and accommodation. NECK: JVP cannot be assessed. CVS: Normal S1, S2. Cannot appreciate any murmurs, gallops, or rubs. LUNGS: Clear to auscultation bilaterally. ABDOMEN: Soft, nontender, and nondistended. No hepatosplenomegaly. Positive bowel sounds. EXTREMITIES: No evidence of edema, clubbing, or cyanosis. Right lower extremity with decrease in both motor and sensory function. Jorge Mcdonough MD Sep 24, 2017 23:57
[2017-09-25] VITALS: BP 147/96
[2017-09-25 04:00] VITALS: BP 145/93
[2017-09-25] MEDS: Aluminum Hydroxide Gel Susp 15ml ORAL SCH ×2 (06:28→15:34)
[2017-09-25 06:46] LABS: BASOPHILS % (AUTO) 1.2 % (0.0-2.0); EOSINOPHILS % (AUTO) 1.5 % (0.0-3.0); HEMATOCRIT 25.3 % (42.0-52.0); HEMOGLOBIN 8.5 G/DL (14.2-18.0); LYMPHOCYTES % (AUTO) 14.4 % (20.0-45.0); MEAN CORPUSCULAR VOLUME 94 FL (80-99); MONOCYTES % (AUTO) 5.3 % (1.0-10.0); NEUTROPHILS % (AUTO) 77.6 % (45.0-75.0); PLATELET COUNT 501 K/UL (150-450); RED CELL DISTRIBUTION WIDTH 11.5 % (11.6-14.8)
[2017-09-25 07:10] LABS: ANION GAP 11 mmol/L (5-15); BLOOD UREA NITROGEN 25 mg/dL (7-18); CALCIUM 8.7 MG/DL (8.5-10.1); CARBON DIOXIDE 22 MMOL/L (21-32); CHLORIDE 109 MMOL/L (98-107); CREATININE 1.4 MG/DL (0.55-1.30); POTASSIUM 3.7 MMOL/L (3.5-5.1); SODIUM 142 MMOL/L (136-145)
[2017-09-25 08:12] VITALS: BP 147/89
--- NOTE | 2017-09-25 08:35 | Nephrology Progress Note ---
Assessment/Plan Assessment 1. Acute rhabdomyolysis yesterday rivera cath was placed had more than 3000 ml of urine out continue to have good urine out put 2. Hypocalcemia. 3. Hypokalemia Plan hold dialysis monitoring renal function monitoring out put Subjective Subjective alert and awake continue to have good urine out put Objective Objective Last 24 Hour Vital Signs Date Time Temp Pulse Resp B/P (MAP) Pulse Ox O2 Delivery O2 Flow Rate FiO2 09/25/17 08:12 97.9 79 18 147/89 (108) 96 97.9 09/25/17 04:00 98.0 60 18 145/93 (110) 98 98.0 09/25/17 02:55 147/96 09/25/17 00:00 97.9 63 18 147/96 (113) 98 97.9 09/24/17 20:00 98.2 66 19 148/96 (113) 100 98.2 09/24/17 18:57 98.6 09/24/17 17:58 98.6 09/24/17 17:56 137/94 09/24/17 15:42 98.6 65 19 137/94 (108) 97 98.6 09/24/17 12:00 98.6 64 19 148/94 (112) 97 98.6 09/24/17 11:09 148/94 09/24/17 08:50 86 147/85 Intake and Output 09/24/17 09/25/17 19:00 07:00 Intake Total 600 ml 500 ml Output Total 2100 ml 2350 ml Balance -1500 ml -1850 ml Intake Oral 600 ml 400 ml IV Total 100 ml Output Urine Total 2100 ml 2350 ml # Bowel Movements 3 3 Laboratory Tests 09/25/17 06:05: White Blood Count 15.0H, Red Blood Count 2.70L, Hemoglobin 8.5L, Hematocrit 25.3L, Mean Corpuscular Volume 94, Mean Corpuscular Hemoglobin 31.6H, Mean Corpuscular Hemoglobin Concent 33.7, Red Cell Distribution Width 11.5L, Platelet Count 501H, Mean Platelet Volume 6.0L, Neutrophils (%) (Auto) 77.6H, Lymphocytes (%) (Auto) 14.4L, Monocytes (%) (Auto) 5.3, Eosinophils (%) (Auto) 1.5, Basophils (%) (Auto) 1.2, Sodium Level 142, Potassium Level 3.7, Chloride Level 109H, Carbon Dioxide Level 22, Anion Gap 11, Blood Urea Nitrogen 25H, Creatinine 1.4H, Estimat Glomerular Filtration Rate 56.4, Glucose Level 104, Calcium Level 8.7 Height (Feet): 5 Height (Inches): 5.00 Weight (Pounds): 185 Objective HEAD AND NECK: No JVP. No LAD. G-tube is in place. Head is atraumatic and normocephalic. LUNGS: He has decreased breathing sounds on the both sides. CARDIAC: Regular rate and rhythm. S1 and S2. No murmur. No rub. ABDOMEN: Soft. Bowel sounds positive. EXTREMITIES: No edema. No clubbing. No cyanosis. Aixa Veloz MD Sep 25, 2017 08:34
[2017-09-25] MEDS: Docusate 100mg cap ORAL SCH ×3 (09:48→17:34)
[2017-09-25] MEDS: Heparin 5000 units/ml inj SUBQ SCH ×2 (09:50→21:32)
[2017-09-25] MEDS ORDERED: Lidocaine 2% 20mg/ml/Epi 0.005mg/ml 20ml vial INJ ONE (10:45)
--- NOTE | 2017-09-25 11:30 | GI Progress Note ---
Assessment/Plan Problems: (1) Severe sepsis ICD Codes: A41.9 - Sepsis, unspecified organism; R65.20 - Severe sepsis without septic shock SNOMED: 71392972 (2) Rhabdomyolysis ICD Codes: M62.82 - Rhabdomyolysis SNOMED: 560634484 Qualifiers: Qualified Codes: T79.6XXA - Traumatic ischemia of muscle, initial encounter (3) Aspiration pneumonia ICD Codes: J69.0 - Pneumonitis due to inhalation of food and vomit SNOMED: 957918340 Qualifiers: Qualified Codes: J69.0 - Pneumonitis due to inhalation of food and vomit (4) Substance abuse ICD Codes: F19.10 - Other psychoactive substance abuse, uncomplicated SNOMED: 76571273 (5) Transaminitis ICD Codes: R74.0 - Nonspecific elevation of levels of transaminase and lactic acid dehydrogenase [LDH] SNOMED: 082892563, 960100541 Status: stable, progressing Status Narrative Discussed with Dr. Chavez. Assessment/Plan Hep A immunity Hep C positive transaminitis >> resolved cdiff negative stool culture >> gram negative bacillus elevated lipase >> now normal OB stool negative x2 supportive care prn transfusions renal diet abx supportive care ppi fu labs, lipase, trend LFTs outpatient Hep C tx The patient was seen and examined at bedside and all new and available data was reviewed in the patients chart. I agree with the above findings, impression and plan. (Patient seen earlier today. Signature stamp does not reflect patient encounter time.). - Efrain Chavez MD Subjective Gastrointestinal/Abdominal: Reports: no symptoms Objective Last 24 Hour Vital Signs Date Time Temp Pulse Resp B/P (MAP) Pulse Ox O2 Delivery O2 Flow Rate FiO2 09/25/17 11:24 147/89 09/25/17 09:48 79 147/89 09/25/17 08:12 97.9 79 18 147/89 (108) 96 97.9 09/25/17 04:00 98.0 60 18 145/93 (110) 98 98.0 09/25/17 02:55 147/96 09/25/17 00:00 97.9 63 18 147/96 (113) 98 97.9 09/24/17 20:00 98.2 66 19 148/96 (113) 100 98.2 09/24/17 18:57 98.6 09/24/17 17:58 98.6 09/24/17 17:56 137/94 09/24/17 15:42 98.6 65 19 137/94 (108) 97 98.6 09/24/17 12:00 98.6 64 19 148/94 (112) 97 98.6 Intake and Output 09/24/17 09/25/17 19:00 07:00 Intake Total 600 ml 500 ml Output Total 2100 ml 2350 ml Balance -1500 ml -1850 ml Intake Oral 600 ml 400 ml IV Total 100 ml Output Urine Total 2100 ml 2350 ml # Bowel Movements 3 3 Laboratory Tests Test 09/25/17 06:05 White Blood Count 15.0 K/UL (4.8-10.8) H Red Blood Count 2.70 M/UL (4.70-6.10) L Hemoglobin 8.5 G/DL (14.2-18.0) L Hematocrit 25.3 % (42.0-52.0) L Mean Corpuscular Volume 94 FL (80-99) Mean Corpuscular Hemoglobin 31.6 PG (27.0-31.0) H Mean Corpuscular Hemoglobin Concent 33.7 G/DL (32.0-36.0) Red Cell Distribution Width 11.5 % (11.6-14.8) L Platelet Count 501 K/UL (150-450) H Mean Platelet Volume 6.0 FL (6.5-10.1) L Neutrophils (%) (Auto) 77.6 % (45.0-75.0) H Lymphocytes (%) (Auto) 14.4 % (20.0-45.0) L Monocytes (%) (Auto) 5.3 % (1.0-10.0) Eosinophils (%) (Auto) 1.5 % (0.0-3.0) Basophils (%) (Auto) 1.2 % (0.0-2.0) Sodium Level 142 MMOL/L (136-145) Potassium Level 3.7 MMOL/L (3.5-5.1) Chloride Level 109 MMOL/L (98-107) H Carbon Dioxide Level 22 MMOL/L (21-32) Anion Gap 11 mmol/L (5-15) Blood Urea Nitrogen 25 mg/dL (7-18) H Creatinine 1.4 MG/DL (0.55-1.30) H Estimat Glomerular Filtration Rate 56.4 mL/min (>60) Glucose Level 104 MG/DL (74-106) Calcium Level 8.7 MG/DL (8.5-10.1) Height (Feet): 5 Height (Inches): 5.00 Weight (Pounds): 185 General Appearance: WD/WN, no apparent distress, alert Cardiovascular: normal rate Respiratory/Chest: normal breath sounds, no respiratory distress Abdominal Exam: normal bowel sounds, non tender, soft Extremities: normal range of motion, non-tender Carlos Lopez NP Sep 25, 2017 11:30
--- NOTE | 2017-09-25 12:32 | Infectious Diseases Prog Note ---
Assessment/Plan Assessment/Plan Aspiration PNA -CXR 09/04 : Interim development of hazy interstitial and airspace disease in the right lung. This may to some extent be an artifact of less optimal inspiration, however. Interim extubation -sp cx normal ann; repeat sp cx MSSA -legionella ag urine neg Sp sepsis - Leukocytosis - Improving - No source found - Pancreatitis ? -u/a wbc 5-10, nit neg, leuk +1; cx neg -Bcx NTD (09/05 abd 09/07) -2d Echo (limited but no vegetations seen) - No Veg on KATELYN 09/10/17 - Tagged WBCs no focal uptake - MRI pelvis 09/11/17 : Diffuse symmetric edema of the bilateral buttock musculature , ? Myositis Discrete 3 x 3 x 7.3 cm fluid collection in the lateral left buttock musculature 09/13 SP No purulent material aspirated. Only small amount of blood aspirated Cx : Negative Blood Cx 09/18/17 - NGTD Urine Cx 09/18/17 - Low counts Fever: soruce ? Rhabdo vs pancreatitis - CT scan 09/19/17 - Interim development of what is probably a right buttock hematoma, measuring 6 x 3.5 by at least 11 cm, Worsening anasarca, Mild pulmonary groundglass opacity, likely represents pulmonary edema, 12 mm focus of low attenuation within the dome of the right hepatic lobe. Complex cyst , early hepatic abscess, less likely neoplasm given patient's age. Consider further evaluation with sonography to see if this is sonographically visible Diverticulosis. No evidence of diverticulitis -Cdiff neg -v/duplex no DVT -HIV ab sc and VL neg, RPR/FTA, GC/CL neg Hep C +; VL pending -ABD US: Gallbladder sludge. Negative for gallstones or dilated ducts. Equivocal increased hepatic echogenicity, if real could indicate hepatocellular disease such as fatty change. Borderline hepatomegaly. Mildly increased renal echogenicity, could indicate medical renal disease. Correlate with renal function tests. Left pleural effusion -Hep A and B immune Drug overdose -UDS + opiates, amphetamines, THC, cocaine -+empty heroin needles (found on hotel room) Multiorgan failure -LUCRECIA, - on HD -Transaminitis, (shock liver); improving -VDRF (airway protection)- extubaetd 09/03 Lactic acidosis; resolved Rhabdomyolisis; improving Pancreatitis- drug induced -neg alcohol levels Encephalopathy - improved -CT head 09/04: Unusual scalp contusion, new since prior study 08/29/2017. No evidence of underlying calvarial trauma. Negative for acute intracranial bleed or mass effect Plan: - Leukocytosis generally improving - Continue to monitor - Afebrile today Continue to monitor off abx Stop Abx 09/25 SP Dapto d#10, Merrem d#10, Micafungin #6 - 09/14/17 - SP IV Micafungin # 7 ( Emperic coverage of fungemia ) -09/14/17 - S/P IV Vanco and Zosyn # 9 -09/04 SP IV Azithromycin #3 -09/03 SP Zosyn #6 - Monitor CBC/CMP, temperatures - aspiration precautions - CRP - Monitor CK - Neuro,cardio, renal, GI f/u - Consider liver abscess if leukocytosis does not resolve. Subjective Allergies: Coded Allergies: NO KNOWN ALLERGIES (Verified Allergy, Unknown, 09/02/17) Subjective Patient afebrile No N/V/D or fever Objective Vital Signs Last 24 Hour Vital Signs Date Time Temp Pulse Resp B/P (MAP) Pulse Ox O2 Delivery O2 Flow Rate FiO2 09/25/17 11:24 147/89 09/25/17 09:48 79 147/89 09/25/17 08:12 97.9 79 18 147/89 (108) 96 97.9 09/25/17 04:00 98.0 60 18 145/93 (110) 98 98.0 09/25/17 02:55 147/96 09/25/17 00:00 97.9 63 18 147/96 (113) 98 97.9 09/24/17 20:00 98.2 66 19 148/96 (113) 100 98.2 09/24/17 18:57 98.6 09/24/17 17:58 98.6 09/24/17 17:56 137/94 09/24/17 15:42 98.6 65 19 137/94 (108) 97 98.6 Height (Feet): 5 Height (Inches): 5.00 Weight (Pounds): 185 Objective General: NAD, Awake and talking, Laying in bed HEENT: NCAT, MMM, EOMI Heart: RRR, no m/r/g, right HD line in place CLISA = 0 Lungs: CTAB, No W/C ABD: Soft, NT, ND, BS+ Extremity: no edema or cellulitis Neuro: A/O x 4, Grossly nonfocal Laboratory Tests Test 09/25/17 06:05 White Blood Count 15.0 K/UL (4.8-10.8) H Red Blood Count 2.70 M/UL (4.70-6.10) L Hemoglobin 8.5 G/DL (14.2-18.0) L Hematocrit 25.3 % (42.0-52.0) L Mean Corpuscular Volume 94 FL (80-99) Mean Corpuscular Hemoglobin 31.6 PG (27.0-31.0) H Mean Corpuscular Hemoglobin Concent 33.7 G/DL (32.0-36.0) Red Cell Distribution Width 11.5 % (11.6-14.8) L Platelet Count 501 K/UL (150-450) H Mean Platelet Volume 6.0 FL (6.5-10.1) L Neutrophils (%) (Auto) 77.6 % (45.0-75.0) H Lymphocytes (%) (Auto) 14.4 % (20.0-45.0) L Monocytes (%) (Auto) 5.3 % (1.0-10.0) Eosinophils (%) (Auto) 1.5 % (0.0-3.0) Basophils (%) (Auto) 1.2 % (0.0-2.0) Sodium Level 142 MMOL/L (136-145) Potassium Level 3.7 MMOL/L (3.5-5.1) Chloride Level 109 MMOL/L (98-107) H Carbon Dioxide Level 22 MMOL/L (21-32) Anion Gap 11 mmol/L (5-15) Blood Urea Nitrogen 25 mg/dL (7-18) H Creatinine 1.4 MG/DL (0.55-1.30) H Estimat Glomerular Filtration Rate 56.4 mL/min (>60) Glucose Level 104 MG/DL (74-106) Calcium Level 8.7 MG/DL (8.5-10.1) Current Medications Medications (Trade) Dose Ordered Sig/Krystyna Route PRN Reason Start Time Stop Time Status Last Admin Dose Admin Acetaminophen (Tylenol) 650 mg Q4H PRN ORAL Fever (temp>100.5F) 09/05/17 18:30 10/05/17 18:29 09/24/17 17:58 Aluminum Hydroxide (Amphojel) 1,920 mg Q8H ORAL 09/18/17 15:00 10/18/17 14:59 09/25/17 06:28 Amlodipine Besylate (Norvasc) 2.5 mg DAILY ORAL 09/23/17 09:00 10/23/17 08:59 09/25/17 09:48 Chlorhexidine Gluconate (Jyotsna-Hex 2%) 1 applic DAILY@2000 TOPIC 09/05/17 20:00 09/29/17 19:59 09/24/17 20:30 Clonidine HCl (Catapres Tab) 0.1 mg Q8H ORAL 09/17/17 18:00 10/10/17 03:59 09/25/17 11:24 Daptomycin 550 mg/ Sodium Chloride 55 ml @ 100 mls/hr Q48H IV 09/14/17 19:00 09/25/17 18:59 09/24/17 20:30 Dextrose (Dextrose 50%) 25 ml STAT PRN IV Hypoglycemia 09/05/17 18:30 10/05/17 18:29 Dextrose (Dextrose 50%) 50 ml STAT PRN IV Hypoglycemia 09/05/17 18:30 10/05/17 18:29 Docusate Sodium (Colace) 100 mg TID ORAL 09/17/17 13:00 10/17/17 12:59 09/25/17 09:48 Epoetin Joel (Procrit (for non ESRD use)) 3,000 units SAT-SAT-SAT SUBQ 09/23/17 21:00 10/23/17 20:59 09/23/17 21:45 Heparin Sodium (Porcine) (Heparin 5000 units/ml) 5,000 units EVERY 12 HOURS SUBQ 09/05/17 21:00 09/28/17 20:59 09/25/17 09:50 Meropenem 500 mg/ Sodium Chloride 55 ml @ 110 mls/hr Q24H IVPB 09/15/17 16:00 09/25/17 15:59 09/24/17 15:41 Micafungin Sodium 100 mg/Sodium Chloride 110 ml @ 110 mls/hr Q24H IVPB 8/8/18 18:00 09/25/17 17:59 09/24/17 17:55 Mirtazapine (Remeron) 15 mg BEDTIME ORAL 09/05/17 21:00 10/04/17 20:59 09/24/17 20:30 Nitroglycerin (Ntg) 0.4 mg Q5M PRN SL Prn Chest Pain 09/05/17 18:30 09/28/17 14:44 Pantoprazole (Protonix) 40 mg Q12HR ORAL 09/18/17 14:00 10/18/17 13:59 09/25/17 09:48 Potassium Chloride (K-Dur) 40 meq TWICE A DAY GT 09/22/17 18:00 10/22/17 17:59 09/25/17 09:49 Quetiapine Fumarate (SEROquel) 50 mg DAILY ORAL 09/17/17 09:00 10/17/17 08:59 09/25/17 09:48 Quetiapine Fumarate (SEROquel) 50 mg Q4H PRN ORAL agitation 09/10/17 14:00 10/10/17 13:59 09/18/17 01:47 Quetiapine Fumarate (SEROquel) 50 mg QLUNCH ORAL 09/17/17 11:30 10/17/17 11:29 09/24/17 11:09 Quetiapine Fumarate (SEROquel) 100 mg BEDTIME ORAL 09/16/17 21:00 10/16/17 20:59 09/24/17 20:30 Sevelamer Carbonate (Renvela) 1,600 mg THREE TIMES A DAY ORAL 09/18/17 09:00 10/18/17 08:59 09/25/17 09:48 Tamsulosin HCl (Flomax) 0.4 mg BEDTIME ORAL 09/20/17 12:00 10/20/17 11:59 09/24/17 20:30 Jean Cervantes M.D. Sep 25, 2017 12:32
[2017-09-25 12:36] VITALS: BP 151/98
--- NOTE | 2017-09-25 13:32 | Pre-Procedure Note/Attestation ---
Pre-Procedure Note/Attestation Complete Prior to Procedure Planned Procedure: not applicable Procedure Narrative: Permacath removal Indications for Procedure Pre-Operative Diagnosis: recovery from acute renal failure; no longer needed Attestation I attest that I discussed the nature of the procedure; its benefits; risks and complications; and alternatives (and the risks and benefits of such alternatives ), prior to the procedure, with the patient (or the patient's legal medical office representative). I attest that, if there was a reasonable possibility of needing a blood transfusion, the patient (or the patient's legal medical office representative) was given the [facility] standardized written summary, pursuant to the Dontrell Braswell Blood Safety Act ([place] Health and Safety Code # 1645, as amended). I attest that I re-evaluated the patient just prior to the surgery and that there has been no change in the patient's H&P, except as documented below: D/W pts mother by phone at 1134 a.m. Jan Blandon MD Sep 25, 2017 13:32
--- NOTE | 2017-09-25 14:23 | General Progress Note ---
Assessment/Plan Problem List: (1) Substance abuse ICD Codes: F19.10 - Other psychoactive substance abuse, uncomplicated SNOMED: 46774716 (2) Respiratory failure ICD Codes: J96.90 - Respiratory failure, unspecified, unspecified whether with hypoxia or hypercapnia SNOMED: 248812285 Qualifiers: Qualified Codes: J96.01 - Acute respiratory failure with hypoxia (3) Rhabdomyolysis ICD Codes: M62.82 - Rhabdomyolysis SNOMED: 258185129 Qualifiers: Qualified Codes: T79.6XXA - Traumatic ischemia of muscle, initial encounter (4) NSTEMI (non-ST elevated myocardial infarction) ICD Codes: I21.4 - Non-ST elevation (NSTEMI) myocardial infarction SNOMED: 289059984 (5) LUCRECIA (acute kidney injury) ICD Codes: N17.9 - Acute kidney failure, unspecified SNOMED: 18475125 Status: stable, progressing Assessment/Plan ot pt diet abx neuro psyc eval cbc bmp am aru eval Subjective Constitutional: Reports: weakness Allergies: Coded Allergies: NO KNOWN ALLERGIES (Verified Allergy, Unknown, 09/02/17) All Systems: reviewed and negative except above Subjective calm in bed sleepy Objective Last 24 Hour Vital Signs Date Time Temp Pulse Resp B/P (MAP) Pulse Ox O2 Delivery O2 Flow Rate FiO2 09/25/17 12:38 97.3 09/25/17 12:36 97.3 75 18 151/98 (115) 97.3 09/25/17 11:24 147/89 09/25/17 09:48 79 147/89 09/25/17 08:12 97.9 79 18 147/89 (108) 96 97.9 09/25/17 04:00 98.0 60 18 145/93 (110) 98 98.0 09/25/17 02:55 147/96 09/25/17 00:00 97.9 63 18 147/96 (113) 98 97.9 09/24/17 20:00 98.2 66 19 148/96 (113) 100 98.2 09/24/17 18:57 98.6 09/24/17 17:58 98.6 09/24/17 17:56 137/94 09/24/17 15:42 98.6 65 19 137/94 (108) 97 98.6 Intake and Output 09/24/17 09/25/17 19:00 07:00 Intake Total 600 ml 500 ml Output Total 2100 ml 2350 ml Balance -1500 ml -1850 ml Intake Oral 600 ml 400 ml IV Total 100 ml Output Urine Total 2100 ml 2350 ml # Bowel Movements 3 3 Laboratory Tests 09/25/17 06:05: White Blood Count 15.0H, Red Blood Count 2.70L, Hemoglobin 8.5L, Hematocrit 25.3L, Mean Corpuscular Volume 94, Mean Corpuscular Hemoglobin 31.6H, Mean Corpuscular Hemoglobin Concent 33.7, Red Cell Distribution Width 11.5L, Platelet Count 501H, Mean Platelet Volume 6.0L, Neutrophils (%) (Auto) 77.6H, Lymphocytes (%) (Auto) 14.4L, Monocytes (%) (Auto) 5.3, Eosinophils (%) (Auto) 1.5, Basophils (%) (Auto) 1.2, Sodium Level 142, Potassium Level 3.7, Chloride Level 109H, Carbon Dioxide Level 22, Anion Gap 11, Blood Urea Nitrogen 25H, Creatinine 1.4H, Estimat Glomerular Filtration Rate 56.4, Glucose Level 104, Calcium Level 8.7 Height (Feet): 5 Height (Inches): 5.00 Weight (Pounds): 185 General Appearance: lethargic EENT: normal ENT inspection Neck: normal alignment Cardiovascular: normal peripheral pulses, normal rate, regular rhythm Respiratory/Chest: chest wall non-tender, lungs clear, normal breath sounds Abdomen: normal bowel sounds, non tender, soft Extremities: normal inspection Edema: no edema noted Arm (L), no edema noted Arm (R), no edema noted Leg (L), no edema noted Leg (R), no edema noted Pedal (L), no edema noted Pedal (R), no edema noted Generalized Neurologic: motor weakness Skin: normal pigmentation, warm/dry Reid Anaya DO Sep 25, 2017 14:23
[2017-09-25 16:23] VITALS: BP 142/91
--- NOTE | 2017-09-25 16:33 | Brief Operative Note ---
Immediate Post Operative Note Operative Note Pre-op Diagnosis: recovery from acute renal failure; no longer needed Procedure: permacath removal Post-op Diagnosis: same as pre-op Surgeon: Ankur BLANDON Anesthesia: local Specimen: none Complications: none Fluids: none Implant(s) used?: No Jan Blandon MD Sep 25, 2017 16:33
--- NOTE | 2017-09-25 16:58 | Diagnostic Imaging Report ---
Indications: Restored renal function, permacath no longer needed Technique: Sterile prepping and draping right chest. Using gentle traction the catheter was removed. Digital fluoroscopic spot radiographs document position of the catheter preremoval, and document complete removal of the catheter on the post removal images. The patient tolerated the procedure well, without immediate complication. Comparison: None. Findings: Preremoval images demonstrate a tunneled dialysis catheter in the expected position. Completion digital fluoroscopy spot radiograph documents complete removal of the tunneled dialysis catheter. Impression: Successful removal of tunneled dialysis catheter, as noted.
--- NOTE | 2017-09-25 17:58 | Neurology Progress Note ---
Interim History Interim History Interim History Mr. Stover feels very well. He is awake and brighter. The mind is clearer. He feels less confused. He denies any agitation. He feels more energetic. He is less forgetful. His appetite is better. He is generally stronger. He says he stood up and took a few walks today. He denies any new neurologic symptoms. He specifically denies any increased weakness on one side or the other, numbness on one side or the other, problems with speech, problems with language , or problems with vision. Review of Systems Neuro Review of Systems Benign. Objective Physical Exam Last Vital Signs Date Time Temp Pulse Resp B/P (MAP) Pulse Ox O2 Delivery O2 Flow Rate FiO2 09/25/17 16:23 97.5 65 18 142/91 (108) 98 97.5 09/21/17 21:00 Room Air Laboratory Tests Test 09/25/17 06:05 White Blood Count 15.0 K/UL (4.8-10.8) H Red Blood Count 2.70 M/UL (4.70-6.10) L Hemoglobin 8.5 G/DL (14.2-18.0) L Hematocrit 25.3 % (42.0-52.0) L Mean Corpuscular Volume 94 FL (80-99) Mean Corpuscular Hemoglobin 31.6 PG (27.0-31.0) H Mean Corpuscular Hemoglobin Concent 33.7 G/DL (32.0-36.0) Red Cell Distribution Width 11.5 % (11.6-14.8) L Platelet Count 501 K/UL (150-450) H Mean Platelet Volume 6.0 FL (6.5-10.1) L Neutrophils (%) (Auto) 77.6 % (45.0-75.0) H Lymphocytes (%) (Auto) 14.4 % (20.0-45.0) L Monocytes (%) (Auto) 5.3 % (1.0-10.0) Eosinophils (%) (Auto) 1.5 % (0.0-3.0) Basophils (%) (Auto) 1.2 % (0.0-2.0) Sodium Level 142 MMOL/L (136-145) Potassium Level 3.7 MMOL/L (3.5-5.1) Chloride Level 109 MMOL/L (98-107) H Carbon Dioxide Level 22 MMOL/L (21-32) Anion Gap 11 mmol/L (5-15) Blood Urea Nitrogen 25 mg/dL (7-18) H Creatinine 1.4 MG/DL (0.55-1.30) H Estimat Glomerular Filtration Rate 56.4 mL/min (>60) Glucose Level 104 MG/DL (74-106) Calcium Level 8.7 MG/DL (8.5-10.1) Neurologic Exam Objective PHYSICAL EXAMINATION: GENERAL: He is a well-developed, well-nourished, gentleman, lying in bed. HEAD: Normocephalic and atraumatic. EENT: Examination benign. NECK: No neck rigidity was observed. NEUROLOGIC EXAMINATION: MENTAL STATUS EXAMINATION: He was awake and alert. He was oriented to self, and [facility] and September 25, 2017. He was able to recall 3/3 words immediately, but could only remember them in 1 and 3 minutes with minimal hints. He was able to remember presidents Trump through [employer]. His mathematical skills were minimally impaired. His visuospatial function was good. SPEECH: He had no dysarthria. LANGUAGE: He had a mild anomia for low frequency words. CRANIAL NERVE EXAMINATION: II: The visual dinh were intact on confrontation testing. III, IV & : The external ocular movements were present. The pupils were 3 mm in diameter and reactive sluggishly to light. V: He had normal facial sensations and the temporales, masseters and pterygoids functioned well. VII: He had normal facial expressions and no facial asymmetry. VIII: He was able to hear well and had no nystagmus. IX: The palate moved symmetrically on phonation. X: He had no hoarseness of voice. XI: The sternocleidomastoids and trapezii functioned well. XII: The tongue was in the midline. MOTOR SYSTEM: The tone was normal in all four extremities. Examination of muscle mass revealed no focal wasting. Examination of power revealed G 5/5 power in all muscle groups except for G 0/5 in the right ankle dorsiflexors, toe extensors, ankle plantar flexors and toe flexors, G 5-/5 in the left ankle dorsiflexors and toe extensors, and G 4/5 in the iliopsoas muscle bilaterally. SENSORY EXAMINATION: He had altered sensations in the right peroneal distribution. REFLEXES: Trace+ and bilaterally symmetrical at the biceps, triceps, brachioradialis, and knees, 0 at both ankles. The plantar responses were flexor bilaterally. COORDINATION: He performed well on finger to nose testing. STANCE & GAIT: Could not be tested. Impression/Recommendations Diagnostic Impression 1. Mr. Enoch Stover is a 37-year-old, gentleman, of unknown handedness, who was found unconscious in a hotel room on 08/29/2017 after he had used multiple drugs. He was found to be possibly febrile, hypoglycemic, and breathing rapidly. Since then, he has been hospitalized and treated for sepsis. 2. He feels well. He is awake and brighter. The mind is clearer. He feels less confused. He denies any agitation. He feels more energetic. He is less forgetful. His appetite is better. He is generally stronger. He says he stood up and walked a little. He denies any new neurologic symptoms. 3. On neurological examination, at this time, he is awake and alert. He is fully oriented. He has mild problems with memory. His speech is normal. He has a mild anomia. His cranial nerves are functioning normally. His motor function is relatively good, he however has mild proximal lower extremity weakness, and mild distal left lower extremity weakness with no movement in the right ankle and toes. His sensations are altered in the right peroneal distribution. His deep tendon reflexes are diminished but his plantar responses are flexor. He also does not demonstrate any definite focal or lateralizing neurological findings. 4. The CT scan of the brain performed on 08/29/2017 and repeated on 09/04/17 is benign for acute pathology. 5. Laboratory data obtained thus far revealed, on admission, his hemoglobin was elevated to 18.4, his WBC was normal at 8,500, but since then his WBCs have peaked to 17,200. His chemistry panel on admission revealed BUN elevated to 31 , creatinine elevated to 3.6, lactic acid elevated to 5.5, bilirubin elevated at 1.2, AST elevated at 478, ALT elevated to 159, CK elevated to greater than 10 ,000, troponin elevated at 1.01, BNP elevated to 2143. His urine toxicology screen was positive for opiates, amphetamines, cocaine, and marijuana. His INR was elevated at 1.2. His TSH is elevated at 4.72. The T3 is low but the T4 is normal. 6. The patient's history, neurological examination, laboratory data, and imaging studies are most compatible with an altered mental state due to a toxic metabolic encephalopathy. 7. The most likely etiology for the encephalopathy is the sepsis, possibly a period of hypoglycemia and ongoing multiple metabolic imbalances and the toxic imbalances. In addition the use of mind-altering drugs could have also been contributing. 8. His encephalopathy is improving. 9. He has also developed bilateral mild proximal lower extremity weakness, and in addition severe right distal lower extremity weakness with severe right peroneal and tibial nerve dysfunction. His sensations are also altered in the right peroneal distribution. Recommendations 1. Continue present management. 2. Continue aggressive treatment of the patient's infectious process. 3. Aggressive management of toxic/metabolic imbalances. 4. AFO for right foot drop. 5. Make sure that his legs are not kept on any hard surface. 6. PT/OT. 7. Observe closely. Chris Ricketts M.D., M.S.P.CHRIS GARDINER Sep 25, 2017 17:58
--- NOTE | 2017-09-25 18:00 | General Progress Note ---
Assessment/Plan Status: stable Assessment/Plan # Anemia of chronic disease. Anemia w/u has been reviewed. Will trend CBC daily. --> Continue to closely monitor for stability. --> Ferritin and tibc reviewed, consistent with anemia of chronic disease --> Hgb goal above >7 --> 8: 1 unit PRBC, 09/19: 1 unit, --> 09/25: Hgb at 8.5 --> given elev Cr, will start low dose epogen once a week dosing # Leukocytosis. due to infection, however no source is found. AFEBRILE --> Closely monitor for improvement. --> 09/25: WBC 15.0, improving --> Currently on IV abx. --> Consider liver abscess if leukocytosis does not resolve. # Thrombocytosis. Likely reactive process to anemia --> Closely monitor PLT count for improvement. --> should improve with improvement in anemia as well --> 09/25: PLT count of 501, elevated. # Transaminitis. Trending downwards. The time the note was entered does not necessarily correspond to the time the patient was seen. Subjective Date patient seen: Sep 25, 2017 ROS Limited/Unobtainable: Yes Hematologic/Lymphatic: Reports: anemia Allergies: Coded Allergies: NO KNOWN ALLERGIES (Verified Allergy, Unknown, 09/02/17) All Systems: reviewed and negative except above Subjective Pt awake and alert. No acute events. H/H stable. Objective Last 24 Hour Vital Signs Date Time Temp Pulse Resp B/P (MAP) Pulse Ox O2 Delivery O2 Flow Rate FiO2 09/25/17 16:23 97.5 65 18 142/91 (108) 98 97.5 09/25/17 13:37 97.3 09/25/17 12:38 97.3 09/25/17 12:36 97.3 75 18 151/98 (115) 97.3 09/25/17 11:24 147/89 09/25/17 09:48 79 147/89 09/25/17 08:12 97.9 79 18 147/89 (108) 96 97.9 09/25/17 04:00 98.0 60 18 145/93 (110) 98 98.0 09/25/17 02:55 147/96 09/25/17 00:00 97.9 63 18 147/96 (113) 98 97.9 09/24/17 20:00 98.2 66 19 148/96 (113) 100 98.2 Intake and Output 09/24/17 09/25/17 19:00 07:00 Intake Total 600 ml 500 ml Output Total 2100 ml 2350 ml Balance -1500 ml -1850 ml Intake Oral 600 ml 400 ml IV Total 100 ml Output Urine Total 2100 ml 2350 ml # Bowel Movements 3 3 Laboratory Tests 09/25/17 06:05: White Blood Count 15.0H, Red Blood Count 2.70L, Hemoglobin 8.5L, Hematocrit 25.3L, Mean Corpuscular Volume 94, Mean Corpuscular Hemoglobin 31.6H, Mean Corpuscular Hemoglobin Concent 33.7, Red Cell Distribution Width 11.5L, Platelet Count 501H, Mean Platelet Volume 6.0L, Neutrophils (%) (Auto) 77.6H, Lymphocytes (%) (Auto) 14.4L, Monocytes (%) (Auto) 5.3, Eosinophils (%) (Auto) 1.5, Basophils (%) (Auto) 1.2, Sodium Level 142, Potassium Level 3.7, Chloride Level 109H, Carbon Dioxide Level 22, Anion Gap 11, Blood Urea Nitrogen 25H, Creatinine 1.4H, Estimat Glomerular Filtration Rate 56.4, Glucose Level 104, Calcium Level 8.7 Height (Feet): 5 Height (Inches): 5.00 Weight (Pounds): 185 General Appearance: no apparent distress EENT: PERRL/EOMI Neck: normal alignment Cardiovascular: irregularly irregular Respiratory/Chest: no respiratory distress Abdomen: soft Diogenes Flores MD Sep 25, 2017 18:00
[2017-09-25 20:00] VITALS: BP 145/92
[2017-09-25] MEDS: Dyna-Hex 2% Top Sol 2oz TOPIC SCH (20:00)
[2017-09-25] MEDS: Epogen (for non ESRD use) SUBQ SCH (21:00)
[2017-09-25] MEDS: Tamsulosin 0.4mg cap ORAL SCH (21:30)
--- NOTE | 2017-09-25 23:45 | Cardiology Progress Note ---
Assessment/Plan Assessment/Plan 1. Sepsis, Continue IV ABx per ID recs. 2. Elevated troponin I level likely due to myocarditis, sepsis, or due to shock. Continue conservative management. 3. Sinus tachycardia, resolved, continue hydration. 4. HTN, continue amlodipine daily. 5. Acute pancreatitis with systemic inflammatory response disease. 6. LUCRECIA, improving, off HD. Creat down to 1.4. 7. Shock liver, resolved. 8. Toxic metabolic encephalopathy Subjective Subjective No cardiac events noted. Objective Last 24 Hour Vital Signs Date Time Temp Pulse Resp B/P (MAP) Pulse Ox O2 Delivery O2 Flow Rate FiO2 09/25/17 18:57 142/91 09/25/17 16:23 97.5 65 18 142/91 (108) 98 97.5 09/25/17 13:37 97.3 09/25/17 12:38 97.3 09/25/17 12:36 97.3 75 18 151/98 (115) 97.3 09/25/17 11:24 147/89 09/25/17 09:48 79 147/89 09/25/17 08:12 97.9 79 18 147/89 (108) 96 97.9 09/25/17 04:00 98.0 60 18 145/93 (110) 98 98.0 09/25/17 02:55 147/96 09/25/17 00:00 97.9 63 18 147/96 (113) 98 97.9 Intake and Output 09/24/17 09/25/17 19:00 07:00 Intake Total 600 ml 500 ml Output Total 2100 ml 2350 ml Balance -1500 ml -1850 ml Intake Oral 600 ml 400 ml IV Total 100 ml Output Urine Total 2100 ml 2350 ml # Bowel Movements 3 3 2D Echo: KATELYN: Nl LV systolic & diastolic function, Mild MR, No vegetations, Nl RVSP Laboratory Tests Test 09/25/17 06:05 White Blood Count 15.0 K/UL (4.8-10.8) H Red Blood Count 2.70 M/UL (4.70-6.10) L Hemoglobin 8.5 G/DL (14.2-18.0) L Hematocrit 25.3 % (42.0-52.0) L Mean Corpuscular Volume 94 FL (80-99) Mean Corpuscular Hemoglobin 31.6 PG (27.0-31.0) H Mean Corpuscular Hemoglobin Concent 33.7 G/DL (32.0-36.0) Red Cell Distribution Width 11.5 % (11.6-14.8) L Platelet Count 501 K/UL (150-450) H Mean Platelet Volume 6.0 FL (6.5-10.1) L Neutrophils (%) (Auto) 77.6 % (45.0-75.0) H Lymphocytes (%) (Auto) 14.4 % (20.0-45.0) L Monocytes (%) (Auto) 5.3 % (1.0-10.0) Eosinophils (%) (Auto) 1.5 % (0.0-3.0) Basophils (%) (Auto) 1.2 % (0.0-2.0) Sodium Level 142 MMOL/L (136-145) Potassium Level 3.7 MMOL/L (3.5-5.1) Chloride Level 109 MMOL/L (98-107) H Carbon Dioxide Level 22 MMOL/L (21-32) Anion Gap 11 mmol/L (5-15) Blood Urea Nitrogen 25 mg/dL (7-18) H Creatinine 1.4 MG/DL (0.55-1.30) H Estimat Glomerular Filtration Rate 56.4 mL/min (>60) Glucose Level 104 MG/DL (74-106) Calcium Level 8.7 MG/DL (8.5-10.1) Objective HEENT: Atraumatic and normocephalic. Pupils are equal, round, and reactive to light and accommodation. NECK: JVP cannot be assessed. CVS: Normal S1, S2. Cannot appreciate any murmurs, gallops, or rubs. LUNGS: Clear to auscultation bilaterally. ABDOMEN: Soft, nontender, and nondistended. No hepatosplenomegaly. Positive bowel sounds. EXTREMITIES: No evidence of edema, clubbing, or cyanosis. Right lower extremity with decrease in both motor and sensory function. Jorge Mcdonough MD Sep 25, 2017 23:45
[2017-09-26] VITALS (7 sets, daily range): BP systolic 137–146; BP diastolic 78–89
[2017-09-26] MEDS: Aluminum Hydroxide Gel Susp 15ml ORAL SCH ×4 (00:19→23:33)
[2017-09-26 06:48] LABS: BASOPHILS % (AUTO) 1.3 % (0.0-2.0); EOSINOPHILS % (AUTO) 1.6 % (0.0-3.0); HEMATOCRIT 23.9 % (42.0-52.0); HEMOGLOBIN 8.1 G/DL (14.2-18.0); LYMPHOCYTES % (AUTO) 12.2 % (20.0-45.0); MEAN CORPUSCULAR VOLUME 92 FL (80-99); MONOCYTES % (AUTO) 8.2 % (1.0-10.0); NEUTROPHILS % (AUTO) 76.7 % (45.0-75.0); PLATELET COUNT 560 K/UL (150-450); RED BLOOD COUNT 2.59 M/UL (4.70-6.10); RED CELL DISTRIBUTION WIDTH 11.4 % (11.6-14.8); WHITE BLOOD COUNT 12.6 K/UL (4.8-10.8)
[2017-09-26 07:18] LABS: ALANINE AMINOTRANSFERASE 24 U/L (12-78); ALBUMIN 2.7 G/DL (3.4-5.0); ALBUMIN/GLOBULIN RATIO 0.6 (1.0-2.7); ALKALINE PHOSPHATASE 82 U/L (46-116); ANION GAP 9 mmol/L (5-15); ASPARTATE AMINO TRANSFERASE 27 U/L (15-37); BILIRUBIN,TOTAL 0.5 MG/DL (0.2-1.0); BLOOD UREA NITROGEN 24 mg/dL (7-18); CALCIUM 8.8 MG/DL (8.5-10.1); CARBON DIOXIDE 23 MMOL/L (21-32); CHLORIDE 109 MMOL/L (98-107); CREATININE 1.4 MG/DL (0.55-1.30); PHOSPHORUS 2.6 MG/DL (2.5-4.9); POTASSIUM 4.1 MMOL/L (3.5-5.1); SODIUM 141 MMOL/L (136-145)
--- NOTE | 2017-09-26 08:41 | Nephrology Progress Note ---
Assessment/Plan Assessment 1.LUCRECIA resolving off dialysis 2.Drug overdose 3.hypomagnesemia Plan replace mg monitoring renal function monitoring out put Subjective Constitutional: Reports: no symptoms HEENT: Reports: no symptoms Genitourinary: Reports: no symptoms Neurologic/Psychiatric: Reports: no symptoms Subjective perm cath was removed Objective Objective Last 24 Hour Vital Signs Date Time Temp Pulse Resp B/P (MAP) Pulse Ox O2 Delivery O2 Flow Rate FiO2 09/26/17 07:42 99.7 79 20 139/78 (98) 98 99.7 09/26/17 04:00 97.0 18 146/83 (104) 98 97.0 09/26/17 02:56 142/89 09/26/17 00:00 97.5 69 18 142/89 (106) 97 97.5 09/25/17 20:00 97.0 66 18 145/92 (109) 98 97.0 09/25/17 18:57 142/91 09/25/17 16:23 97.5 65 18 142/91 (108) 98 97.5 09/25/17 13:37 97.3 09/25/17 12:38 97.3 09/25/17 12:36 97.3 75 18 151/98 (115) 97.3 09/25/17 11:24 147/89 09/25/17 09:48 79 147/89 Intake and Output 09/25/17 09/26/17 19:00 07:00 Intake Total 480 ml Output Total 1500 ml 1900 ml Balance -1020 ml -1900 ml Intake Oral 480 ml Output Urine Total 1500 ml 1900 ml # Bowel Movements 3 1 Laboratory Tests 09/26/17 05:55: White Blood Count 12.6H, Red Blood Count 2.59L, Hemoglobin 8.1L, Hematocrit 23.9L, Mean Corpuscular Volume 92, Mean Corpuscular Hemoglobin 31.4H, Mean Corpuscular Hemoglobin Concent 33.9, Red Cell Distribution Width 11.4L, Platelet Count 560H, Mean Platelet Volume 6.3L, Neutrophils (%) (Auto) 76.7H, Lymphocytes (%) (Auto) 12.2L, Monocytes (%) (Auto) 8.2, Eosinophils (%) (Auto) 1.6, Basophils (%) (Auto) 1.3, Sodium Level 141, Potassium Level 4.1, Chloride Level 109H, Carbon Dioxide Level 23, Anion Gap 9, Blood Urea Nitrogen 24H, Creatinine 1.4H, Estimat Glomerular Filtration Rate 56.4, Glucose Level 102, Calcium Level 8.8, Phosphorus Level 2.6, Magnesium Level 1.6L, Total Bilirubin 0.5, Aspartate Amino Transf (AST/SGOT) 27, Alanine Aminotransferase (ALT/SGPT) 24, Alkaline Phosphatase 82, Total Protein 7.2, Albumin 2.7L, Globulin 4.5, Albumin/Globulin Ratio 0.6L Height (Feet): 5 Height (Inches): 5.00 Weight (Pounds): 161 Objective HEAD AND NECK: No JVP. No LAD. G-tube is in place. Head is atraumatic and normocephalic. LUNGS: He has decreased breathing sounds on the both sides. CARDIAC: Regular rate and rhythm. S1 and S2. No murmur. No rub. ABDOMEN: Soft. Bowel sounds positive. EXTREMITIES: No edema. No clubbing. No cyanosis. Aixa Veloz MD Sep 26, 2017 08:41
[2017-09-26] MEDS: Docusate 100mg cap ORAL SCH ×3 (09:00→18:00)
[2017-09-26] MEDS: Heparin 5000 units/ml inj SUBQ SCH ×2 (09:26→20:54)
--- NOTE | 2017-09-26 10:35 | GI Progress Note ---
Assessment/Plan Problems: (1) Severe sepsis ICD Codes: A41.9 - Sepsis, unspecified organism; R65.20 - Severe sepsis without septic shock SNOMED: 41142381 (2) Rhabdomyolysis ICD Codes: M62.82 - Rhabdomyolysis SNOMED: 225318867 Qualifiers: Qualified Codes: T79.6XXA - Traumatic ischemia of muscle, initial encounter (3) Aspiration pneumonia ICD Codes: J69.0 - Pneumonitis due to inhalation of food and vomit SNOMED: 565204591 Qualifiers: Qualified Codes: J69.0 - Pneumonitis due to inhalation of food and vomit (4) Substance abuse ICD Codes: F19.10 - Other psychoactive substance abuse, uncomplicated SNOMED: 02884885 (5) Transaminitis ICD Codes: R74.0 - Nonspecific elevation of levels of transaminase and lactic acid dehydrogenase [LDH] SNOMED: 295819680, 953707474 Status: doing well, stable Status Narrative Discussed with Dr. Chavez. Assessment/Plan Hep A immunity Hep C positive transaminitis >> resolved cdiff negative stool culture >> gram negative bacillus elevated lipase >> now normal OB stool negative x2 supportive care prn transfusions renal diet abx ppi fu labs outpatient Hep C tx The patient was seen and examined at bedside and all new and available data was reviewed in the patients chart. I agree with the above findings, impression and plan. (Patient seen earlier today. Signature stamp does not reflect patient encounter time.). - Efrain Chavez MD Subjective Gastrointestinal/Abdominal: Reports: no symptoms Objective Last 24 Hour Vital Signs Date Time Temp Pulse Resp B/P (MAP) Pulse Ox O2 Delivery O2 Flow Rate FiO2 09/26/17 09:24 81 140/86 09/26/17 09:14 81 140/86 (104) 09/26/17 07:42 99.7 79 20 139/78 (98) 98 99.7 09/26/17 04:00 97.0 18 146/83 (104) 98 97.0 09/26/17 02:56 142/89 09/26/17 00:00 97.5 69 18 142/89 (106) 97 97.5 09/25/17 20:00 97.0 66 18 145/92 (109) 98 97.0 09/25/17 18:57 142/91 09/25/17 16:23 97.5 65 18 142/91 (108) 98 97.5 09/25/17 13:37 97.3 09/25/17 12:38 97.3 09/25/17 12:36 97.3 75 18 151/98 (115) 97.3 09/25/17 11:24 147/89 Intake and Output 09/25/17 09/26/17 19:00 07:00 Intake Total 480 ml Output Total 1500 ml 1900 ml Balance -1020 ml -1900 ml Intake Oral 480 ml Output Urine Total 1500 ml 1900 ml # Bowel Movements 3 1 Laboratory Tests Test 09/26/17 05:55 White Blood Count 12.6 K/UL (4.8-10.8) H Red Blood Count 2.59 M/UL (4.70-6.10) L Hemoglobin 8.1 G/DL (14.2-18.0) L Hematocrit 23.9 % (42.0-52.0) L Mean Corpuscular Volume 92 FL (80-99) Mean Corpuscular Hemoglobin 31.4 PG (27.0-31.0) H Mean Corpuscular Hemoglobin Concent 33.9 G/DL (32.0-36.0) Red Cell Distribution Width 11.4 % (11.6-14.8) L Platelet Count 560 K/UL (150-450) H Mean Platelet Volume 6.3 FL (6.5-10.1) L Neutrophils (%) (Auto) 76.7 % (45.0-75.0) H Lymphocytes (%) (Auto) 12.2 % (20.0-45.0) L Monocytes (%) (Auto) 8.2 % (1.0-10.0) Eosinophils (%) (Auto) 1.6 % (0.0-3.0) Basophils (%) (Auto) 1.3 % (0.0-2.0) Sodium Level 141 MMOL/L (136-145) Potassium Level 4.1 MMOL/L (3.5-5.1) Chloride Level 109 MMOL/L (98-107) H Carbon Dioxide Level 23 MMOL/L (21-32) Anion Gap 9 mmol/L (5-15) Blood Urea Nitrogen 24 mg/dL (7-18) H Creatinine 1.4 MG/DL (0.55-1.30) H Estimat Glomerular Filtration Rate 56.4 mL/min (>60) Glucose Level 102 MG/DL (74-106) Calcium Level 8.8 MG/DL (8.5-10.1) Phosphorus Level 2.6 MG/DL (2.5-4.9) Magnesium Level 1.6 MG/DL (1.8-2.4) L Total Bilirubin 0.5 MG/DL (0.2-1.0) Aspartate Amino Transf (AST/SGOT) 27 U/L (15-37) Alanine Aminotransferase (ALT/SGPT) 24 U/L (12-78) Alkaline Phosphatase 82 U/L (46-116) Total Protein 7.2 G/DL (6.4-8.2) Albumin 2.7 G/DL (3.4-5.0) L Globulin 4.5 g/dL Albumin/Globulin Ratio 0.6 (1.0-2.7) L Height (Feet): 5 Height (Inches): 5.00 Weight (Pounds): 161 General Appearance: WD/WN, no apparent distress, alert Cardiovascular: normal rate Respiratory/Chest: normal breath sounds, no respiratory distress Abdominal Exam: normal bowel sounds, non tender, soft Extremities: normal range of motion, non-tender Carlos Lopez NP Sep 26, 2017 10:35
--- NOTE | 2017-09-26 12:08 | Infectious Diseases Prog Note ---
Assessment/Plan Assessment/Plan Assessment/Plan Leukocytosis - Improving - No source found - Pancreatitis ?, R gluteal hematoma -u/a wbc 5-10, nit neg, leuk +1; cx neg -Bcx NTD (09/05 abd 09/07) -2d Echo (limited but no vegetations seen) - No Veg on KATELYN 09/10/17 - Tagged WBCs no focal uptake - MRI pelvis 09/11/17 : Diffuse symmetric edema of the bilateral buttock musculature , ? Myositis Discrete 3 x 3 x 7.3 cm fluid collection in the lateral left buttock musculature 09/13 SP No purulent material aspirated. Only small amount of blood aspirated Cx : Negative Blood Cx 09/17/17 - Neg Urine Cx 09/18/17 - Low counts MDR ABC (colonizers) Fever:; resolving- source ? Rhabdo vs pancreatitis, R gluteal hemotoma - CT scan 09/19/17 - Interim development of what is probably a right buttock hematoma, measuring 6 x 3.5 by at least 11 cm, Worsening anasarca, Mild pulmonary groundglass opacity, likely represents pulmonary edema, 12 mm focus of low attenuation within the dome of the right hepatic lobe. Complex cyst , early hepatic abscess, less likely neoplasm given patient's age. Consider further evaluation with sonography to see if this is sonographically visible Diverticulosis. No evidence of diverticulitis -Cdiff neg -v/duplex no DVT -HIV ab sc and VL neg, RPR/FTA, GC/CL neg Aspiration PNA , s/p Rx -CXR 09/04 : Interim development of hazy interstitial and airspace disease in the right lung. This may to some extent be an artifact of less optimal inspiration, however. Interim extubation -sp cx normal ann; repeat sp cx MSSA -legionella ag urine neg Sp sepsis - Hep C +; VL ND -ABD US: Gallbladder sludge. Negative for gallstones or dilated ducts. Equivocal increased hepatic echogenicity, if real could indicate hepatocellular disease such as fatty change. Borderline hepatomegaly. Mildly increased renal echogenicity, could indicate medical renal disease. Correlate with renal function tests. Left pleural effusion -Hep A and B immune Drug overdose -UDS + opiates, amphetamines, THC, cocaine -+empty heroin needles (found on hotel room) Multiorgan failure -LUCRECIA, - on HD; now off HD, permacath removed 09/25 -Transaminitis, (shock liver); improving -VDRF (airway protection)- extubated 09/03 Lactic acidosis; resolved Rhabdomyolisis; improving Pancreatitis- drug induced -neg alcohol levels Encephalopathy - improved -CT head 09/04: Unusual scalp contusion, new since prior study 08/29/2017. No evidence of underlying calvarial trauma. Negative for acute intracranial bleed or mass effect Plan: - Leukocytosis generally improving - Continue to monitor - Afebrile in >48hrs Continue to monitor off abx 09/25 SP Dapto d#10, Merrem d#10, Micafungin #6 - 09/14/17 - SP IV Micafungin # 7 ( Emperic coverage of fungemia ) -09/14/17 - S/P IV Vanco and Zosyn # 9 -09/04 SP IV Azithromycin #3 -09/03 SP Zosyn #6 - Monitor CBC/CMP, temperatures - aspiration precautions - CRP - Monitor CK - Neuro,cardio, renal, GI f/u - Consider liver abscess if leukocytosis does not resolve. Subjective Allergies: Coded Allergies: NO KNOWN ALLERGIES (Verified Allergy, Unknown, 09/02/17) Subjective afebrile >48hrs leukocytosis and Cr improving HD cath removed now off HD Objective Vital Signs Last 24 Hour Vital Signs Date Time Temp Pulse Resp B/P (MAP) Pulse Ox O2 Delivery O2 Flow Rate FiO2 09/26/17 11:12 147/89 09/26/17 09:24 81 140/86 09/26/17 09:14 81 140/86 (104) 09/26/17 07:42 99.7 79 20 139/78 (98) 98 99.7 09/26/17 04:00 97.0 18 146/83 (104) 98 97.0 09/26/17 02:56 142/89 09/26/17 00:00 97.5 69 18 142/89 (106) 97 97.5 09/25/17 20:00 97.0 66 18 145/92 (109) 98 97.0 09/25/17 18:57 142/91 09/25/17 16:23 97.5 65 18 142/91 (108) 98 97.5 09/25/17 13:37 97.3 09/25/17 12:38 97.3 09/25/17 12:36 97.3 75 18 151/98 (115) 97.3 Height (Feet): 5 Height (Inches): 5.00 Weight (Pounds): 161 Objective General: intubated, restless HEENT: ETT in place Heart: RRR, no murmurs Lungs: CTA x2 ABD: S+D, ND, BS+ Extremity no edema or cellulitis Laboratory Tests Test 09/26/17 05:55 White Blood Count 12.6 K/UL (4.8-10.8) H Red Blood Count 2.59 M/UL (4.70-6.10) L Hemoglobin 8.1 G/DL (14.2-18.0) L Hematocrit 23.9 % (42.0-52.0) L Mean Corpuscular Volume 92 FL (80-99) Mean Corpuscular Hemoglobin 31.4 PG (27.0-31.0) H Mean Corpuscular Hemoglobin Concent 33.9 G/DL (32.0-36.0) Red Cell Distribution Width 11.4 % (11.6-14.8) L Platelet Count 560 K/UL (150-450) H Mean Platelet Volume 6.3 FL (6.5-10.1) L Neutrophils (%) (Auto) 76.7 % (45.0-75.0) H Lymphocytes (%) (Auto) 12.2 % (20.0-45.0) L Monocytes (%) (Auto) 8.2 % (1.0-10.0) Eosinophils (%) (Auto) 1.6 % (0.0-3.0) Basophils (%) (Auto) 1.3 % (0.0-2.0) Sodium Level 141 MMOL/L (136-145) Potassium Level 4.1 MMOL/L (3.5-5.1) Chloride Level 109 MMOL/L (98-107) H Carbon Dioxide Level 23 MMOL/L (21-32) Anion Gap 9 mmol/L (5-15) Blood Urea Nitrogen 24 mg/dL (7-18) H Creatinine 1.4 MG/DL (0.55-1.30) H Estimat Glomerular Filtration Rate 56.4 mL/min (>60) Glucose Level 102 MG/DL (74-106) Calcium Level 8.8 MG/DL (8.5-10.1) Phosphorus Level 2.6 MG/DL (2.5-4.9) Magnesium Level 1.6 MG/DL (1.8-2.4) L Total Bilirubin 0.5 MG/DL (0.2-1.0) Aspartate Amino Transf (AST/SGOT) 27 U/L (15-37) Alanine Aminotransferase (ALT/SGPT) 24 U/L (12-78) Alkaline Phosphatase 82 U/L (46-116) Total Protein 7.2 G/DL (6.4-8.2) Albumin 2.7 G/DL (3.4-5.0) L Globulin 4.5 g/dL Albumin/Globulin Ratio 0.6 (1.0-2.7) L Current Medications Medications (Trade) Dose Ordered Sig/Krystyna Route PRN Reason Start Time Stop Time Status Last Admin Dose Admin Acetaminophen (Tylenol) 650 mg Q4H PRN ORAL Fever (temp>100.5F) 09/05/17 18:30 10/05/17 18:29 09/25/17 21:31 Aluminum Hydroxide (Amphojel) 1,920 mg Q8H ORAL 09/18/17 15:00 10/18/17 14:59 09/26/17 06:31 Amlodipine Besylate (Norvasc) 2.5 mg DAILY ORAL 09/23/17 09:00 10/23/17 08:59 09/26/17 09:24 Chlorhexidine Gluconate (Jyotsna-Hex 2%) 1 applic DAILY@1999 TOPIC 09/05/17 20:00 09/29/17 19:59 09/24/17 20:30 Clonidine HCl (Catapres Tab) 0.1 mg Q8H ORAL 09/17/17 18:00 10/10/17 03:59 09/26/17 11:12 Dextrose (Dextrose 50%) 25 ml STAT PRN IV Hypoglycemia 09/05/17 18:30 10/05/17 18:29 Dextrose (Dextrose 50%) 50 ml STAT PRN IV Hypoglycemia 09/05/17 18:30 10/05/17 18:29 Docusate Sodium (Colace) 100 mg TID ORAL 09/17/17 13:00 10/17/17 12:59 09/25/17 17:34 Epoetin Joel (Procrit (for non ESRD use)) 3,000 units SAT-SAT-SAT SUBQ 09/23/17 21:00 10/23/17 20:59 09/23/17 21:45 Heparin Sodium (Porcine) (Heparin 5000 units/ml) 5,000 units EVERY 12 HOURS SUBQ 09/05/17 21:00 09/28/17 20:59 09/26/17 09:26 Magnesium Sulfate 100 ml @ 100 mls/hr Q1H IVPB 09/26/17 10:00 09/26/17 11:59 09/26/17 11:04 Mirtazapine (Remeron) 15 mg BEDTIME ORAL 09/05/17 21:00 10/04/17 20:59 09/25/17 21:30 Nitroglycerin (Ntg) 0.4 mg Q5M PRN SL Prn Chest Pain 09/05/17 18:30 09/28/17 14:44 Pantoprazole (Protonix) 40 mg Q12HR ORAL 09/18/17 14:00 10/18/17 13:59 09/26/17 09:25 Potassium Chloride (K-Dur) 40 meq TWICE A DAY GT 09/22/17 18:00 10/22/17 17:59 09/26/17 09:33 Quetiapine Fumarate (SEROquel) 50 mg DAILY ORAL 09/17/17 09:00 10/17/17 08:59 09/26/17 09:25 Quetiapine Fumarate (SEROquel) 50 mg Q4H PRN ORAL agitation 09/10/17 14:00 10/10/17 13:59 09/18/17 01:47 Quetiapine Fumarate (SEROquel) 50 mg QLUNCH ORAL 09/17/17 11:30 10/17/17 11:29 09/25/17 12:37 Quetiapine Fumarate (SEROquel) 100 mg BEDTIME ORAL 09/16/17 21:00 10/16/17 20:59 09/25/17 21:30 Sevelamer Carbonate (Renvela) 1,600 mg THREE TIMES A DAY ORAL 09/18/17 09:00 10/18/17 08:59 09/26/17 09:25 Tamsulosin HCl (Flomax) 0.4 mg BEDTIME ORAL 8/10/18 12:00 10/20/17 11:59 09/25/17 21:30 Krystal Romero M.D. Sep 26, 2017 12:08
--- NOTE | 2017-09-26 13:31 | General Progress Note ---
Assessment/Plan Status: stable Assessment/Plan # Anemia of chronic disease. Anemia w/u has been reviewed. Will trend CBC daily. --> Continue to closely monitor for stability. --> Ferritin and tibc reviewed, consistent with anemia of chronic disease --> Hgb goal above >7 --> 09/15: 1 unit PRBC, 09/19: 1 unit, --> 09/26: Hgb at 8.1 --> given elev Cr, will start low dose epogen once a week dosing # Leukocytosis. due to infection, however no source is found. AFEBRILE --> Closely monitor for improvement. --> 09/26: WBC 12.6, elevated but improving --> Currently on IV abx. --> Consider liver abscess if leukocytosis does not resolve. # Thrombocytosis. Likely reactive process to anemia --> Closely monitor PLT count for improvement. --> should improve with improvement in anemia as well --> 09/26: PLT count of 560, elevated. # Transaminitis. Trending downwards. The time the note was entered does not necessarily correspond to the time the patient was seen. Subjective Date patient seen: Sep 26, 2017 ROS Limited/Unobtainable: Yes Hematologic/Lymphatic: Reports: anemia Allergies: Coded Allergies: NO KNOWN ALLERGIES (Verified Allergy, Unknown, 09/02/17) All Systems: reviewed and negative except above Subjective Pt awake and alert. No acute events. H/H stable. Objective Last 24 Hour Vital Signs Date Time Temp Pulse Resp B/P (MAP) Pulse Ox O2 Delivery O2 Flow Rate FiO2 09/26/17 12:00 99.0 82 20 137/88 (104) 97 99.0 09/26/17 11:12 147/89 09/26/17 09:24 81 140/86 09/26/17 09:14 81 140/86 (104) 09/26/17 07:42 99.7 79 20 139/78 (98) 98 99.7 09/26/17 04:00 97.0 18 146/83 (104) 98 97.0 09/26/17 02:56 142/89 09/26/17 00:00 97.5 69 18 142/89 (106) 97 97.5 09/25/17 20:00 97.0 66 18 145/92 (109) 98 97.0 09/25/17 18:57 142/91 09/25/17 16:23 97.5 65 18 142/91 (108) 98 97.5 09/25/17 13:37 97.3 Intake and Output 09/25/17 09/26/17 19:00 07:00 Intake Total 480 ml Output Total 1500 ml 1900 ml Balance -1020 ml -1900 ml Intake Oral 480 ml Output Urine Total 1500 ml 1900 ml # Bowel Movements 3 1 Laboratory Tests 09/26/17 05:55: White Blood Count 12.6H, Red Blood Count 2.59L, Hemoglobin 8.1L, Hematocrit 23.9L, Mean Corpuscular Volume 92, Mean Corpuscular Hemoglobin 31.4H, Mean Corpuscular Hemoglobin Concent 33.9, Red Cell Distribution Width 11.4L, Platelet Count 560H, Mean Platelet Volume 6.3L, Neutrophils (%) (Auto) 76.7H, Lymphocytes (%) (Auto) 12.2L, Monocytes (%) (Auto) 8.2, Eosinophils (%) (Auto) 1.6, Basophils (%) (Auto) 1.3, Sodium Level 141, Potassium Level 4.1, Chloride Level 109H, Carbon Dioxide Level 23, Anion Gap 9, Blood Urea Nitrogen 24H, Creatinine 1.4H, Estimat Glomerular Filtration Rate 56.4, Glucose Level 102, Calcium Level 8.8, Phosphorus Level 2.6, Magnesium Level 1.6L, Total Bilirubin 0.5, Aspartate Amino Transf (AST/SGOT) 27, Alanine Aminotransferase (ALT/SGPT) 24, Alkaline Phosphatase 82, Total Protein 7.2, Albumin 2.7L, Globulin 4.5, Albumin/Globulin Ratio 0.6L Height (Feet): 5 Height (Inches): 5.00 Weight (Pounds): 161 General Appearance: no apparent distress EENT: PERRL/EOMI Neck: normal alignment Cardiovascular: normal peripheral pulses, irregularly irregular Respiratory/Chest: no respiratory distress Abdomen: soft Diogenes Flores MD Sep 26, 2017 13:31
--- NOTE | 2017-09-26 15:47 | General Progress Note ---
Assessment/Plan Problem List: (1) Substance abuse ICD Codes: F19.10 - Other psychoactive substance abuse, uncomplicated SNOMED: 17385206 (2) Respiratory failure ICD Codes: J96.90 - Respiratory failure, unspecified, unspecified whether with hypoxia or hypercapnia SNOMED: 703926060 Qualifiers: Qualified Codes: J96.01 - Acute respiratory failure with hypoxia (3) Rhabdomyolysis ICD Codes: M62.82 - Rhabdomyolysis SNOMED: 173515053 Qualifiers: Qualified Codes: T79.6XXA - Traumatic ischemia of muscle, initial encounter (4) NSTEMI (non-ST elevated myocardial infarction) ICD Codes: I21.4 - Non-ST elevation (NSTEMI) myocardial infarction SNOMED: 495728688 (5) LUCRECIA (acute kidney injury) ICD Codes: N17.9 - Acute kidney failure, unspecified SNOMED: 25520237 Status: stable, progressing Assessment/Plan ot pt diet abx neuro psyc eval cbc bmp am dc plan snf Subjective Constitutional: Reports: weakness Allergies: Coded Allergies: NO KNOWN ALLERGIES (Verified Allergy, Unknown, 09/02/17) All Systems: reviewed and negative except above Subjective calm in bed sleepy Objective Last 24 Hour Vital Signs Date Time Temp Pulse Resp B/P (MAP) Pulse Ox O2 Delivery O2 Flow Rate FiO2 09/26/17 12:00 99.0 82 20 137/88 (104) 97 99.0 09/26/17 11:12 147/89 09/26/17 09:24 81 140/86 09/26/17 09:14 81 140/86 (104) 09/26/17 07:42 99.7 79 20 139/78 (98) 98 99.7 09/26/17 04:00 97.0 18 146/83 (104) 98 97.0 09/26/17 02:56 142/89 09/26/17 00:00 97.5 69 18 142/89 (106) 97 97.5 09/25/17 20:00 97.0 66 18 145/92 (109) 98 97.0 09/25/17 18:57 142/91 09/25/17 16:23 97.5 65 18 142/91 (108) 98 97.5 Intake and Output 09/25/17 09/26/17 19:00 07:00 Intake Total 480 ml Output Total 1500 ml 1900 ml Balance -1020 ml -1900 ml Intake Oral 480 ml Output Urine Total 1500 ml 1900 ml # Bowel Movements 3 1 Laboratory Tests 09/26/17 05:55: White Blood Count 12.6H, Red Blood Count 2.59L, Hemoglobin 8.1L, Hematocrit 23.9L, Mean Corpuscular Volume 92, Mean Corpuscular Hemoglobin 31.4H, Mean Corpuscular Hemoglobin Concent 33.9, Red Cell Distribution Width 11.4L, Platelet Count 560H, Mean Platelet Volume 6.3L, Neutrophils (%) (Auto) 76.7H, Lymphocytes (%) (Auto) 12.2L, Monocytes (%) (Auto) 8.2, Eosinophils (%) (Auto) 1.6, Basophils (%) (Auto) 1.3, Sodium Level 141, Potassium Level 4.1, Chloride Level 109H, Carbon Dioxide Level 23, Anion Gap 9, Blood Urea Nitrogen 24H, Creatinine 1.4H, Estimat Glomerular Filtration Rate 56.4, Glucose Level 102, Calcium Level 8.8, Phosphorus Level 2.6, Magnesium Level 1.6L, Total Bilirubin 0.5, Aspartate Amino Transf (AST/SGOT) 27, Alanine Aminotransferase (ALT/SGPT) 24, Alkaline Phosphatase 82, Total Protein 7.2, Albumin 2.7L, Globulin 4.5, Albumin/Globulin Ratio 0.6L Height (Feet): 5 Height (Inches): 5.00 Weight (Pounds): 161 General Appearance: lethargic EENT: normal ENT inspection Neck: normal alignment Cardiovascular: normal peripheral pulses, normal rate, regular rhythm Respiratory/Chest: chest wall non-tender, lungs clear, normal breath sounds Abdomen: normal bowel sounds, non tender, soft Extremities: normal inspection Edema: no edema noted Arm (L), no edema noted Arm (R), no edema noted Leg (L), no edema noted Leg (R), no edema noted Pedal (L), no edema noted Pedal (R), no edema noted Generalized Neurologic: responsive, motor weakness Skin: normal pigmentation, warm/dry Reid Anaya DO Sep 26, 2017 15:47
--- NOTE | 2017-09-26 18:45 | Neurology Progress Note ---
Interim History Interim History Interim History Mr. Stover feels well. He is now alert and bright throughout the day. The mind is clear. He denies any agitation. His energy level is close to normal. His memory is also close to normal. His appetite is better. He is generally stronger. He says he stood up and took a few walks today. He denies any new neurologic symptoms. He specifically denies any increased weakness on one side or the other, numbness on one side or the other, problems with speech, problems with language , or problems with vision. Review of Systems Neuro Review of Systems Benign. Objective Physical Exam Last Vital Signs Date Time Temp Pulse Resp B/P (MAP) Pulse Ox O2 Delivery O2 Flow Rate FiO2 09/26/17 15:52 99.5 71 20 137/87 (104) 98 99.5 09/21/17 21:00 Room Air Laboratory Tests Test 09/26/17 05:55 White Blood Count 12.6 K/UL (4.8-10.8) H Red Blood Count 2.59 M/UL (4.70-6.10) L Hemoglobin 8.1 G/DL (14.2-18.0) L Hematocrit 23.9 % (42.0-52.0) L Mean Corpuscular Volume 92 FL (80-99) Mean Corpuscular Hemoglobin 31.4 PG (27.0-31.0) H Mean Corpuscular Hemoglobin Concent 33.9 G/DL (32.0-36.0) Red Cell Distribution Width 11.4 % (11.6-14.8) L Platelet Count 560 K/UL (150-450) H Mean Platelet Volume 6.3 FL (6.5-10.1) L Neutrophils (%) (Auto) 76.7 % (45.0-75.0) H Lymphocytes (%) (Auto) 12.2 % (20.0-45.0) L Monocytes (%) (Auto) 8.2 % (1.0-10.0) Eosinophils (%) (Auto) 1.6 % (0.0-3.0) Basophils (%) (Auto) 1.3 % (0.0-2.0) Sodium Level 141 MMOL/L (136-145) Potassium Level 4.1 MMOL/L (3.5-5.1) Chloride Level 109 MMOL/L (98-107) H Carbon Dioxide Level 23 MMOL/L (21-32) Anion Gap 9 mmol/L (5-15) Blood Urea Nitrogen 24 mg/dL (7-18) H Creatinine 1.4 MG/DL (0.55-1.30) H Estimat Glomerular Filtration Rate 56.4 mL/min (>60) Glucose Level 102 MG/DL (74-106) Calcium Level 8.8 MG/DL (8.5-10.1) Phosphorus Level 2.6 MG/DL (2.5-4.9) Magnesium Level 1.6 MG/DL (1.8-2.4) L Total Bilirubin 0.5 MG/DL (0.2-1.0) Aspartate Amino Transf (AST/SGOT) 27 U/L (15-37) Alanine Aminotransferase (ALT/SGPT) 24 U/L (12-78) Alkaline Phosphatase 82 U/L (46-116) Total Protein 7.2 G/DL (6.4-8.2) Albumin 2.7 G/DL (3.4-5.0) L Globulin 4.5 g/dL Albumin/Globulin Ratio 0.6 (1.0-2.7) L Neurologic Exam Objective PHYSICAL EXAMINATION: GENERAL: He is a well-developed, well-nourished, gentleman, lying in bed. HEAD: Normocephalic and atraumatic. EENT: Examination benign. NECK: No neck rigidity was observed. NEUROLOGIC EXAMINATION: MENTAL STATUS EXAMINATION: He was awake and alert. He was oriented to self, and [facility] and September 26, 2017. He was able to recall 3/3 words immediately, and could remember them in 1 and 3 minutes. He was able to remember presidents Trump through [employer]. His mathematical skills were good. His visuospatial function was good. SPEECH: He had no dysarthria. LANGUAGE: He had a mild anomia for low frequency words. CRANIAL NERVE EXAMINATION: II: The visual dinh were intact on confrontation testing. III, IV & : The external ocular movements were present. The pupils were 3 mm in diameter and reactive sluggishly to light. V: He had normal facial sensations and the temporales, masseters and pterygoids functioned well. VII: He had normal facial expressions and no facial asymmetry. VIII: He was able to hear well and had no nystagmus. IX: The palate moved symmetrically on phonation. X: He had no hoarseness of voice. XI: The sternocleidomastoids and trapezii functioned well. XII: The tongue was in the midline. MOTOR SYSTEM: The tone was normal in all four extremities. Examination of muscle mass revealed no focal wasting. Examination of power revealed G 5/5 power in all muscle groups except for G 0/5 in the right ankle dorsiflexors, toe extensors, ankle plantar flexors and toe flexors, G 5-/5 in the left ankle dorsiflexors and toe extensors, and G 4/5 in the iliopsoas muscle bilaterally. SENSORY EXAMINATION: He had altered sensations in the right peroneal distribution. REFLEXES: Trace+ and bilaterally symmetrical at the biceps, triceps, brachioradialis, and knees, 0 at both ankles. The plantar responses were flexor bilaterally. COORDINATION: He performed well on finger to nose and heel to jolley testing. STANCE & GAIT: Could not be tested. Impression/Recommendations Diagnostic Impression 1. Mr. Enoch Stover is a 37-year-old, gentleman, of unknown handedness, who was found unconscious in a hotel room on 08/29/2017 after he had used multiple drugs. He was found to be possibly febrile, hypoglycemic, and breathing rapidly. Since then, he has been hospitalized and treated for sepsis. 2. He feels well. He is now alert and bright throughout the day. The mind is clear. He denies any agitation. His energy level is close to normal. His memory is also close to normal. His appetite is better. He is generally stronger. He says he stood up and took a few walks today. He denies any new neurologic symptoms. 3. On neurological examination, at this time, he is awake and alert. He is fully oriented. His memory has normalized. His speech is normal. He has a mild anomia. His cranial nerves are functioning normally. His motor function is relatively good, he however has mild proximal lower extremity weakness, and mild distal left lower extremity weakness with no movement in the right ankle and toes. His sensations are altered in the right peroneal distribution. His deep tendon reflexes are diminished but his plantar responses are flexor. He also does not demonstrate any definite focal or lateralizing neurological findings. 4. The CT scan of the brain performed on 08/29/2017 and repeated on 09/04/17 is benign for acute pathology. 5. Laboratory data obtained thus far revealed, on admission, his hemoglobin was elevated to 18.4, his WBC was normal at 8,500, but since then his WBCs have peaked to 17,200. His chemistry panel on admission revealed BUN elevated to 31 , creatinine elevated to 3.6, lactic acid elevated to 5.5, bilirubin elevated at 1.2, AST elevated at 478, ALT elevated to 159, CK elevated to greater than 10 ,000, troponin elevated at 1.01, BNP elevated to 2143. His urine toxicology screen was positive for opiates, amphetamines, cocaine, and marijuana. His INR was elevated at 1.2. His TSH is elevated at 4.72. The T3 is low but the T4 is normal. 6. The patient's history, neurological examination, laboratory data, and imaging studies are most compatible with an altered mental state due to a toxic metabolic encephalopathy. 7. The most likely etiology for the encephalopathy was the sepsis, possibly a period of hypoglycemia and ongoing multiple metabolic imbalances and the toxic imbalances. In addition the use of mind-altering drugs could have also been contributing. 8. His encephalopathy has improved markedly and continues to improve. 9. He has also developed bilateral mild proximal lower extremity weakness, and in addition severe right distal lower extremity weakness with severe right peroneal and tibial nerve dysfunction. His sensations are also altered in the right peroneal distribution. Recommendations 1. Continue present management. 2. Continue aggressive treatment of the patient's infectious process. 3. Aggressive management of toxic/metabolic imbalances. 4. AFO for right foot drop. 5. PT/OT. 6. Observe closely. Chris Ricketts M.D., M.S.P.CHRIS GARDINER Sep 26, 2017 18:45
[2017-09-26] MEDS: Dyna-Hex 2% Top Sol 2oz TOPIC SCH (20:00)
[2017-09-26] MEDS: Tamsulosin 0.4mg cap ORAL SCH (20:52)
--- NOTE | 2017-09-26 23:57 | Cardiology Progress Note ---
Assessment/Plan Assessment/Plan 1. Elevated troponin I level likely due to myocarditis, sepsis, or due to shock. Continue conservative management. 2. Sepsis, Continue IV ABx per ID recs. 3. Sinus tachycardia, resolved, continue hydration. 4. HTN, continue amlodipine daily. 5. Acute pancreatitis with systemic inflammatory response disease. 6. LUCRECIA, on HD, improving. 7. Shock liver, resolved. 8. Toxic metabolic encephalopathy Subjective Subjective No cardiac events noted. Denies chest pain or SOB. Objective Last 24 Hour Vital Signs Date Time Temp Pulse Resp B/P (MAP) Pulse Ox O2 Delivery O2 Flow Rate FiO2 09/26/17 20:52 100.2 09/26/17 20:00 100.2 72 18 141/86 (104) 97 100.2 09/26/17 18:40 143/92 09/26/17 15:52 99.5 71 20 137/87 (104) 98 99.5 09/26/17 12:00 99.0 82 20 137/88 (104) 97 99.0 09/26/17 11:12 147/89 09/26/17 09:24 81 140/86 09/26/17 09:14 81 140/86 (104) 09/26/17 07:42 99.7 79 20 139/78 (98) 98 99.7 09/26/17 04:00 97.0 18 146/83 (104) 98 97.0 09/26/17 02:56 142/89 09/26/17 00:00 97.5 69 18 142/89 (106) 97 97.5 Intake and Output 09/25/17 09/26/17 19:00 07:00 Intake Total 480 ml Output Total 1500 ml 1900 ml Balance -1020 ml -1900 ml Intake Oral 480 ml Output Urine Total 1500 ml 1900 ml # Bowel Movements 3 1 2D Echo: KATELYN: Nl LV systolic & diastolic function, Mild MR, No vegetations, Nl RVSP Laboratory Tests Test 09/26/17 05:55 White Blood Count 12.6 K/UL (4.8-10.8) H Red Blood Count 2.59 M/UL (4.70-6.10) L Hemoglobin 8.1 G/DL (14.2-18.0) L Hematocrit 23.9 % (42.0-52.0) L Mean Corpuscular Volume 92 FL (80-99) Mean Corpuscular Hemoglobin 31.4 PG (27.0-31.0) H Mean Corpuscular Hemoglobin Concent 33.9 G/DL (32.0-36.0) Red Cell Distribution Width 11.4 % (11.6-14.8) L Platelet Count 560 K/UL (150-450) H Mean Platelet Volume 6.3 FL (6.5-10.1) L Neutrophils (%) (Auto) 76.7 % (45.0-75.0) H Lymphocytes (%) (Auto) 12.2 % (20.0-45.0) L Monocytes (%) (Auto) 8.2 % (1.0-10.0) Eosinophils (%) (Auto) 1.6 % (0.0-3.0) Basophils (%) (Auto) 1.3 % (0.0-2.0) Sodium Level 141 MMOL/L (136-145) Potassium Level 4.1 MMOL/L (3.5-5.1) Chloride Level 109 MMOL/L (98-107) H Carbon Dioxide Level 23 MMOL/L (21-32) Anion Gap 9 mmol/L (5-15) Blood Urea Nitrogen 24 mg/dL (7-18) H Creatinine 1.4 MG/DL (0.55-1.30) H Estimat Glomerular Filtration Rate 56.4 mL/min (>60) Glucose Level 102 MG/DL (74-106) Calcium Level 8.8 MG/DL (8.5-10.1) Phosphorus Level 2.6 MG/DL (2.5-4.9) Magnesium Level 1.6 MG/DL (1.8-2.4) L Total Bilirubin 0.5 MG/DL (0.2-1.0) Aspartate Amino Transf (AST/SGOT) 27 U/L (15-37) Alanine Aminotransferase (ALT/SGPT) 24 U/L (12-78) Alkaline Phosphatase 82 U/L (46-116) Total Protein 7.2 G/DL (6.4-8.2) Albumin 2.7 G/DL (3.4-5.0) L Globulin 4.5 g/dL Albumin/Globulin Ratio 0.6 (1.0-2.7) L Objective HEENT: Atraumatic and normocephalic. Pupils are equal, round, and reactive to light and accommodation. NECK: JVP cannot be assessed. CVS: Normal S1, S2. Cannot appreciate any murmurs, gallops, or rubs. LUNGS: Clear to auscultation bilaterally. ABDOMEN: Soft, nontender, and nondistended. No hepatosplenomegaly. Positive bowel sounds. EXTREMITIES: No evidence of edema, clubbing, or cyanosis. Right lower extremity with decrease in both motor and sensory function. Jorge Mcdonough MD Sep 26, 2017 23:57
[2017-09-27] VITALS: BP 148/94
[2017-09-27 04:00] VITALS: BP 146/89
[2017-09-27] MEDS: Aluminum Hydroxide Gel Susp 15ml ORAL SCH ×3 (06:57→21:59)
[2017-09-27 07:01] LABS: BASOPHILS % (AUTO) 0.9 % (0.0-2.0); EOSINOPHILS % (AUTO) 1.4 % (0.0-3.0); HEMATOCRIT 26.6 % (42.0-52.0); LYMPHOCYTES % (AUTO) 11.7 % (20.0-45.0); MEAN CORPUSCULAR VOLUME 93 FL (80-99); MONOCYTES % (AUTO) 6.8 % (1.0-10.0); NEUTROPHILS % (AUTO) 79.2 % (45.0-75.0); PLATELET COUNT 624 K/UL (150-450); RED BLOOD COUNT 2.86 M/UL (4.70-6.10); RED CELL DISTRIBUTION WIDTH 11.6 % (11.6-14.8); WHITE BLOOD COUNT 15.4 K/UL (4.8-10.8)
[2017-09-27 07:28] LABS: ANION GAP 10 mmol/L (5-15); BLOOD UREA NITROGEN 25 mg/dL (7-18); CALCIUM 8.8 MG/DL (8.5-10.1); CARBON DIOXIDE 23 MMOL/L (21-32); CHLORIDE 108 MMOL/L (98-107); CREATININE 1.3 MG/DL (0.55-1.30); POTASSIUM 4.2 MMOL/L (3.5-5.1); SODIUM 141 MMOL/L (136-145)
[2017-09-27 08:00] VITALS: BP 139/88
--- NOTE | 2017-09-27 08:04 | General Progress Note ---
Assessment/Plan Problem List: (1) Substance abuse ICD Codes: F19.10 - Other psychoactive substance abuse, uncomplicated SNOMED: 36697013 (2) Respiratory failure ICD Codes: J96.90 - Respiratory failure, unspecified, unspecified whether with hypoxia or hypercapnia SNOMED: 840164550 Qualifiers: Qualified Codes: J96.01 - Acute respiratory failure with hypoxia (3) Rhabdomyolysis ICD Codes: M62.82 - Rhabdomyolysis SNOMED: 685943462 Qualifiers: Qualified Codes: T79.6XXA - Traumatic ischemia of muscle, initial encounter (4) NSTEMI (non-ST elevated myocardial infarction) ICD Codes: I21.4 - Non-ST elevation (NSTEMI) myocardial infarction SNOMED: 608686661 (5) LUCRECIA (acute kidney injury) ICD Codes: N17.9 - Acute kidney failure, unspecified SNOMED: 45462595 Status: stable, progressing Assessment/Plan ot pt diet abx neuro psyc eval cbc bmp am dc plan snf Subjective Constitutional: Reports: weakness Allergies: Coded Allergies: NO KNOWN ALLERGIES (Verified Allergy, Unknown, 09/02/17) All Systems: reviewed and negative except above Subjective calm in bed sleepy Objective Last 24 Hour Vital Signs Date Time Temp Pulse Resp B/P (MAP) Pulse Ox O2 Delivery O2 Flow Rate FiO2 09/27/17 04:00 98.2 67 18 146/89 (108) 97 98.2 09/27/17 03:07 148/94 09/27/17 00:00 99.0 64 18 148/94 (112) 97 99.0 09/26/17 21:51 99.0 09/26/17 20:52 100.2 09/26/17 20:00 100.2 72 18 141/86 (104) 97 100.2 09/26/17 18:40 143/92 09/26/17 15:52 99.5 71 20 137/87 (104) 98 99.5 09/26/17 12:00 99.0 82 20 137/88 (104) 97 99.0 09/26/17 11:12 147/89 09/26/17 09:24 81 140/86 09/26/17 09:14 81 140/86 (104) Intake and Output 09/26/17 09/27/17 19:00 07:00 Intake Total 720 ml 200 ml Output Total 1600 ml 1650 ml Balance -880 ml -1450 ml Intake Oral 720 ml 200 ml Output Urine Total 1600 ml 1650 ml Stool Total 0 ml # Bowel Movements 2 Laboratory Tests 09/27/17 05:55: White Blood Count 15.4H, Red Blood Count 2.86L, Hemoglobin 9.0L, Hematocrit 26.6L, Mean Corpuscular Volume 93, Mean Corpuscular Hemoglobin 31.6H, Mean Corpuscular Hemoglobin Concent 33.9, Red Cell Distribution Width 11.6, Platelet Count 624H, Mean Platelet Volume 5.9L, Neutrophils (%) (Auto) 79.2H, Lymphocytes (%) (Auto) 11.7L, Monocytes (%) (Auto) 6.8, Eosinophils (%) (Auto) 1.4, Basophils (%) (Auto) 0.9, Sodium Level 141, Potassium Level 4.2, Chloride Level 108H, Carbon Dioxide Level 23, Anion Gap 10, Blood Urea Nitrogen 25H, Creatinine 1.3, Estimat Glomerular Filtration Rate > 60, Glucose Level 96, Calcium Level 8.8 Height (Feet): 5 Height (Inches): 5.00 Weight (Pounds): 155 General Appearance: lethargic EENT: normal ENT inspection Neck: normal alignment Cardiovascular: normal peripheral pulses, normal rate, regular rhythm Respiratory/Chest: chest wall non-tender, lungs clear, normal breath sounds Abdomen: normal bowel sounds, non tender, soft Extremities: normal inspection Edema: no edema noted Arm (L), no edema noted Arm (R), no edema noted Leg (L), no edema noted Leg (R), no edema noted Pedal (L), no edema noted Pedal (R), no edema noted Generalized Neurologic: responsive, motor weakness Skin: normal pigmentation, warm/dry Reid Anaya DO Sep 27, 2017 08:04
[2017-09-27] MEDS: Docusate 100mg cap ORAL SCH ×4 (09:37→17:27)
[2017-09-27] MEDS: Heparin 5000 units/ml inj SUBQ SCH ×2 (09:39→20:29)
--- NOTE | 2017-09-27 09:46 | General Progress Note ---
Assessment/Plan Status: stable Assessment/Plan # Anemia of chronic disease. Anemia w/u has been reviewed. Will trend CBC daily. --> Continue to closely monitor for stability. --> Ferritin and tibc reviewed, consistent with anemia of chronic disease --> Hgb goal above >7 --> 09/15: 1 unit PRBC, 09/18: 1 unit, 09/19: 1 unit, --> 09/27: Hgb at 9.0 --> given elev Cr, will start low dose epogen once a week dosing # Leukocytosis. due to infection, however no source is found. AFEBRILE --> Closely monitor for improvement. --> 09/27: WBC 15.4, elevated but improving --> Currently on IV abx. --> Consider liver abscess if leukocytosis does not resolve. # Thrombocytosis. Likely reactive process to anemia --> Closely monitor PLT count for improvement. --> should improve with improvement in anemia as well --> 09/27: PLT count of 624, elevated. # Transaminitis. Trending downwards. The time the note was entered does not necessarily correspond to the time the patient was seen. Subjective Date patient seen: Sep 27, 2017 ROS Limited/Unobtainable: Yes Constitutional: Reports: fever Hematologic/Lymphatic: Reports: anemia Allergies: Coded Allergies: NO KNOWN ALLERGIES (Verified Allergy, Unknown, 09/02/17) All Systems: reviewed and negative except above Subjective Pt awake and alert. Pt with fever overnight, temp currently at 98.6 . H/H stable. DC planning. Objective Last 24 Hour Vital Signs Date Time Temp Pulse Resp B/P (MAP) Pulse Ox O2 Delivery O2 Flow Rate FiO2 09/27/17 09:38 76 139/88 09/27/17 08:00 98.6 76 20 139/88 (105) 98 98.6 09/27/17 04:00 98.2 67 18 146/89 (108) 97 98.2 09/27/17 03:07 148/94 09/27/17 00:00 99.0 64 18 148/94 (112) 97 99.0 09/26/17 21:51 99.0 09/26/17 20:52 100.2 09/26/17 20:00 100.2 72 18 141/86 (104) 97 100.2 09/26/17 18:40 143/92 09/26/17 15:52 99.5 71 20 137/87 (104) 98 99.5 09/26/17 12:00 99.0 82 20 137/88 (104) 97 99.0 09/26/17 11:12 147/89 Intake and Output 09/26/17 09/27/17 18:59 06:59 Intake Total 720 ml 200 ml Output Total 1600 ml 1650 ml Balance -880 ml -1450 ml Intake Oral 720 ml 200 ml Output Urine Total 1600 ml 1650 ml Stool Total 0 ml # Bowel Movements 2 Laboratory Tests 09/27/17 05:55: White Blood Count 15.4H, Red Blood Count 2.86L, Hemoglobin 9.0L, Hematocrit 26.6L, Mean Corpuscular Volume 93, Mean Corpuscular Hemoglobin 31.6H, Mean Corpuscular Hemoglobin Concent 33.9, Red Cell Distribution Width 11.6, Platelet Count 624H, Mean Platelet Volume 5.9L, Neutrophils (%) (Auto) 79.2H, Lymphocytes (%) (Auto) 11.7L, Monocytes (%) (Auto) 6.8, Eosinophils (%) (Auto) 1.4, Basophils (%) (Auto) 0.9, Sodium Level 141, Potassium Level 4.2, Chloride Level 108H, Carbon Dioxide Level 23, Anion Gap 10, Blood Urea Nitrogen 25H, Creatinine 1.3, Estimat Glomerular Filtration Rate > 60, Glucose Level 96, Calcium Level 8.8 Height (Feet): 5 Height (Inches): 5.00 Weight (Pounds): 155 General Appearance: no apparent distress EENT: PERRL/EOMI Neck: normal alignment Cardiovascular: normal peripheral pulses Respiratory/Chest: no respiratory distress Abdomen: soft Diogenes Flores MD Sep 27, 2017 09:46
--- NOTE | 2017-09-27 10:41 | General Progress Note ---
Assessment/Plan Problem List: (1) Rhabdomyolysis ICD Codes: M62.82 - Rhabdomyolysis SNOMED: 292002308 Qualifiers: Qualified Codes: T79.6XXA - Traumatic ischemia of muscle, initial encounter (2) Aspiration pneumonia ICD Codes: J69.0 - Pneumonitis due to inhalation of food and vomit SNOMED: 065282137 Qualifiers: Qualified Codes: J69.0 - Pneumonitis due to inhalation of food and vomit (3) Substance abuse ICD Codes: F19.10 - Other psychoactive substance abuse, uncomplicated SNOMED: 37470286 (4) Transaminitis ICD Codes: R74.0 - Nonspecific elevation of levels of transaminase and lactic acid dehydrogenase [LDH] SNOMED: 880374783, 114398460 Assessment/Plan Hep A immunity Hep C positive transaminitis >> downtrending, near normal levels cdiff negative stool culture >> gram negative bacillus elevated lipase >> now normal OB stool negative x2 prn transfusions renal diet abx supportive care ppi fu labs, lipase, trend LFTs outpatient Hep C tx Subjective ROS Limited/Unobtainable: Yes Allergies: Coded Allergies: NO KNOWN ALLERGIES (Verified Allergy, Unknown, 09/02/17) Objective Last 24 Hour Vital Signs Date Time Temp Pulse Resp B/P (MAP) Pulse Ox O2 Delivery O2 Flow Rate FiO2 09/27/17 10:10 139/88 09/27/17 09:38 76 139/88 09/27/17 08:00 98.6 76 20 139/88 (105) 98 98.6 09/27/17 04:00 98.2 67 18 146/89 (108) 97 98.2 09/27/17 03:07 148/94 09/27/17 00:00 99.0 64 18 148/94 (112) 97 99.0 09/26/17 21:51 99.0 09/26/17 20:52 100.2 09/26/17 20:00 100.2 72 18 141/86 (104) 97 100.2 09/26/17 18:40 143/92 09/26/17 15:52 99.5 71 20 137/87 (104) 98 99.5 09/26/17 12:00 99.0 82 20 137/88 (104) 97 99.0 09/26/17 11:12 147/89 Intake and Output 09/26/17 09/27/17 19:00 07:00 Intake Total 720 ml 200 ml Output Total 1600 ml 1650 ml Balance -880 ml -1450 ml Intake Oral 720 ml 200 ml Output Urine Total 1600 ml 1650 ml Stool Total 0 ml # Bowel Movements 2 Laboratory Tests 09/27/17 05:55: White Blood Count 15.4H, Red Blood Count 2.86L, Hemoglobin 9.0L, Hematocrit 26.6L, Mean Corpuscular Volume 93, Mean Corpuscular Hemoglobin 31.6H, Mean Corpuscular Hemoglobin Concent 33.9, Red Cell Distribution Width 11.6, Platelet Count 624H, Mean Platelet Volume 5.9L, Neutrophils (%) (Auto) 79.2H, Lymphocytes (%) (Auto) 11.7L, Monocytes (%) (Auto) 6.8, Eosinophils (%) (Auto) 1.4, Basophils (%) (Auto) 0.9, Sodium Level 141, Potassium Level 4.2, Chloride Level 108H, Carbon Dioxide Level 23, Anion Gap 10, Blood Urea Nitrogen 25H, Creatinine 1.3, Estimat Glomerular Filtration Rate > 60, Glucose Level 96, Calcium Level 8.8 Height (Feet): 5 Height (Inches): 5.00 Weight (Pounds): 155 General Appearance: no apparent distress EENT: normal ENT inspection Neck: supple Cardiovascular: normal rate Respiratory/Chest: decreased breath sounds Abdomen: normal bowel sounds, non tender, soft Extremities: non-tender Efrain Chavez MD Sep 27, 2017 10:41
--- NOTE | 2017-09-27 11:53 | Nephrology Progress Note ---
Assessment/Plan Assessment 1.LUCRECIA resolving off dialysis 2.Drug overdose 3.hypomagnesemia Plan replace mg monitoring renal function monitoring out put Subjective Constitutional: Reports: no symptoms HEENT: Reports: no symptoms Genitourinary: Reports: no symptoms Neurologic/Psychiatric: Reports: no symptoms Subjective no complaints Objective Objective Last 24 Hour Vital Signs Date Time Temp Pulse Resp B/P (MAP) Pulse Ox O2 Delivery O2 Flow Rate FiO2 09/27/17 10:10 139/88 09/27/17 09:38 76 139/88 09/27/17 08:00 98.6 76 20 139/88 (105) 98 98.6 09/27/17 04:00 98.2 67 18 146/89 (108) 97 98.2 09/27/17 03:07 148/94 09/27/17 00:00 99.0 64 18 148/94 (112) 97 99.0 09/26/17 21:51 99.0 09/26/17 20:52 100.2 09/26/17 20:00 100.2 72 18 141/86 (104) 97 100.2 09/26/17 18:40 143/92 09/26/17 15:52 99.5 71 20 137/87 (104) 98 99.5 09/26/17 12:00 99.0 82 20 137/88 (104) 97 99.0 Intake and Output 09/26/17 09/27/17 19:00 07:00 Intake Total 720 ml 200 ml Output Total 1600 ml 1650 ml Balance -880 ml -1450 ml Intake Oral 720 ml 200 ml Output Urine Total 1600 ml 1650 ml Stool Total 0 ml # Bowel Movements 2 Laboratory Tests 09/27/17 05:55: White Blood Count 15.4H, Red Blood Count 2.86L, Hemoglobin 9.0L, Hematocrit 26.6L, Mean Corpuscular Volume 93, Mean Corpuscular Hemoglobin 31.6H, Mean Corpuscular Hemoglobin Concent 33.9, Red Cell Distribution Width 11.6, Platelet Count 624H, Mean Platelet Volume 5.9L, Neutrophils (%) (Auto) 79.2H, Lymphocytes (%) (Auto) 11.7L, Monocytes (%) (Auto) 6.8, Eosinophils (%) (Auto) 1.4, Basophils (%) (Auto) 0.9, Sodium Level 141, Potassium Level 4.2, Chloride Level 108H, Carbon Dioxide Level 23, Anion Gap 10, Blood Urea Nitrogen 25H, Creatinine 1.3, Estimat Glomerular Filtration Rate > 60, Glucose Level 96, Calcium Level 8.8 Height (Feet): 5 Height (Inches): 5.00 Weight (Pounds): 155 Objective HEAD AND NECK: No JVP. No LAD. G-tube is in place. Head is atraumatic and normocephalic. LUNGS: He has decreased breathing sounds on the both sides. CARDIAC: Regular rate and rhythm. S1 and S2. No murmur. No rub. ABDOMEN: Soft. Bowel sounds positive. EXTREMITIES: No edema. No clubbing. No cyanosis. Aixa Veloz MD Sep 27, 2017 11:52
[2017-09-27 12:00] VITALS: BP 133/86
--- NOTE | 2017-09-27 13:42 | Neurology Progress Note ---
Interim History Interim History Interim History Mr. Stover feels well. He is alert and bright now. Earlier he was sedated after he got Seroquel. The mind is clear. He denies any agitation. His energy level is close to normal. His memory is also close to normal. His appetite is better. He is generally stronger. He has not walked much today. The left foot is painful. He denies any new neurologic symptoms. He specifically denies any increased weakness on one side or the other, numbness on one side or the other, problems with speech, problems with language , or problems with vision. Review of Systems Neuro Review of Systems Benign. Objective Physical Exam Last Vital Signs Date Time Temp Pulse Resp B/P (MAP) Pulse Ox O2 Delivery O2 Flow Rate FiO2 09/27/17 12:00 97.9 82 18 133/86 (102) 98 97.9 09/21/17 21:00 Room Air Laboratory Tests Test 09/27/17 05:55 White Blood Count 15.4 K/UL (4.8-10.8) H Red Blood Count 2.86 M/UL (4.70-6.10) L Hemoglobin 9.0 G/DL (14.2-18.0) L Hematocrit 26.6 % (42.0-52.0) L Mean Corpuscular Volume 93 FL (80-99) Mean Corpuscular Hemoglobin 31.6 PG (27.0-31.0) H Mean Corpuscular Hemoglobin Concent 33.9 G/DL (32.0-36.0) Red Cell Distribution Width 11.6 % (11.6-14.8) Platelet Count 624 K/UL (150-450) H Mean Platelet Volume 5.9 FL (6.5-10.1) L Neutrophils (%) (Auto) 79.2 % (45.0-75.0) H Lymphocytes (%) (Auto) 11.7 % (20.0-45.0) L Monocytes (%) (Auto) 6.8 % (1.0-10.0) Eosinophils (%) (Auto) 1.4 % (0.0-3.0) Basophils (%) (Auto) 0.9 % (0.0-2.0) Sodium Level 141 MMOL/L (136-145) Potassium Level 4.2 MMOL/L (3.5-5.1) Chloride Level 108 MMOL/L (98-107) H Carbon Dioxide Level 23 MMOL/L (21-32) Anion Gap 10 mmol/L (5-15) Blood Urea Nitrogen 25 mg/dL (7-18) H Creatinine 1.3 MG/DL (0.55-1.30) Estimat Glomerular Filtration Rate > 60 mL/min (>60) Glucose Level 96 MG/DL (74-106) Calcium Level 8.8 MG/DL (8.5-10.1) Neurologic Exam Objective PHYSICAL EXAMINATION: GENERAL: He is a well-developed, well-nourished, gentleman, lying in bed. HEAD: Normocephalic and atraumatic. EENT: Examination benign. NECK: No neck rigidity was observed. NEUROLOGIC EXAMINATION: MENTAL STATUS EXAMINATION: He was awake and alert. He was oriented to self, and [facility] and September 27, 2017. He was able to recall 3/3 words immediately, and could remember them in 1 and 3 minutes. He was able to remember presidents Trump through [employer]. His mathematical skills were good. His visuospatial function was good. SPEECH: He had no dysarthria. LANGUAGE: He had a mild anomia for low frequency words. CRANIAL NERVE EXAMINATION: II: The visual dinh were intact on confrontation testing. III, IV & : The external ocular movements were present. The pupils were 3 mm in diameter and reactive sluggishly to light. V: He had normal facial sensations and the temporales, masseters and pterygoids functioned well. VII: He had normal facial expressions and no facial asymmetry. VIII: He was able to hear well and had no nystagmus. IX: The palate moved symmetrically on phonation. X: He had no hoarseness of voice. XI: The sternocleidomastoids and trapezii functioned well. XII: The tongue was in the midline. MOTOR SYSTEM: The tone was normal in all four extremities. Examination of muscle mass revealed no focal wasting. Examination of power revealed G 5/5 power in all muscle groups except for G 0/5 in the right ankle dorsiflexors, toe extensors, ankle plantar flexors and toe flexors, G 5-/5 in the left ankle dorsiflexors and toe extensors, and G 4/5 in the iliopsoas muscle bilaterally. SENSORY EXAMINATION: He had altered sensations in the right peroneal distribution. REFLEXES: Trace+ and bilaterally symmetrical at the biceps, triceps, brachioradialis, and knees, 0 at both ankles. The plantar responses were flexor bilaterally. COORDINATION: He performed well on finger to nose and heel to jolley testing. STANCE & GAIT: Could not be tested. Impression/Recommendations Diagnostic Impression 1. Mr. Enoch Stover is a 37-year-old, gentleman, of unknown handedness, who was found unconscious in a hotel room on 08/29/2017 after he had used multiple drugs. He was found to be possibly febrile, hypoglycemic, and breathing rapidly. Since then, he has been hospitalized and treated for sepsis. 2. He feels well. He is alert and bright now. Earlier he was sedated after he got Seroquel. The mind is clear. He denies any agitation. His energy level is close to normal. His memory is also close to normal. His appetite is better. He is generally stronger. He has not walked much today. The left foot is painful. He denies any new neurologic symptoms. 3. On neurological examination, at this time, he is awake and alert. He is fully oriented. His memory has normalized. His speech is normal. He has a mild anomia. His cranial nerves are functioning normally. His motor function is relatively good, he however has mild proximal lower extremity weakness, and mild distal left lower extremity weakness with no movement in the right ankle and toes. His sensations are altered in the right peroneal distribution. His deep tendon reflexes are diminished but his plantar responses are flexor. He also does not demonstrate any definite focal or lateralizing neurological findings. 4. The CT scan of the brain performed on 08/29/2017 and repeated on 09/04/17 is benign for acute pathology. 5. Laboratory data obtained thus far revealed, on admission, his hemoglobin was elevated to 18.4, his WBC was normal at 8,500, but since then his WBCs have peaked to 17,200. His chemistry panel on admission revealed BUN elevated to 31 , creatinine elevated to 3.6, lactic acid elevated to 5.5, bilirubin elevated at 1.2, AST elevated at 478, ALT elevated to 159, CK elevated to greater than 10 ,000, troponin elevated at 1.01, BNP elevated to 2143. His urine toxicology screen was positive for opiates, amphetamines, cocaine, and marijuana. His INR was elevated at 1.2. His TSH is elevated at 4.72. The T3 is low but the T4 is normal. 6. The patient's history, neurological examination, laboratory data, and imaging studies are most compatible with an altered mental state due to a toxic metabolic encephalopathy. 7. The most likely etiology for the encephalopathy was the sepsis, possibly a period of hypoglycemia and ongoing multiple metabolic imbalances and the toxic imbalances. In addition the use of mind-altering drugs could have also been contributing. 8. His encephalopathy has improved markedly and continues to improve. 9. He has also developed bilateral mild proximal lower extremity weakness, and in addition severe right distal lower extremity weakness with severe right peroneal and tibial nerve dysfunction. His sensations are also altered in the right peroneal distribution. He is bothered by left foot pain for the last day or two. Recommendations 1. Continue present management. 2. Continue aggressive treatment of the patient's infectious process. 3. Aggressive management of toxic/metabolic imbalances. 4. AFO for right foot drop. 5. PT/OT. 6. Observe closely. Chris Gomez M.D., M.S.P.Luz. CHRIS GOMEZ Sep 27, 2017 13:42
[2017-09-27 16:00] VITALS: BP 136/78
--- NOTE | 2017-09-27 17:49 | Infectious Diseases Prog Note ---
Assessment/Plan Assessment/Plan Assessment/Plan Leukocytosis - Improving - No source found - Pancreatitis ?, R gluteal hematoma -u/a wbc 5-10, nit neg, leuk +1; cx neg -Bcx NTD (09/05 abd 09/07) -2d Echo (limited but no vegetations seen) - No Veg on KATELYN 09/10/17 - Tagged WBCs no focal uptake - MRI pelvis 09/11/17 : Diffuse symmetric edema of the bilateral buttock musculature , ? Myositis Discrete 3 x 3 x 7.3 cm fluid collection in the lateral left buttock musculature 09/13 SP No purulent material aspirated. Only small amount of blood aspirated Cx : Negative Blood Cx 09/17/17 - Neg Urine Cx 09/18/17 - Low counts MDR ABC (colonizers) Fever:; resolving- source ? Rhabdo vs pancreatitis, R gluteal hemotoma - CT scan 09/19/17 - Interim development of what is probably a right buttock hematoma, measuring 6 x 3.5 by at least 11 cm, Worsening anasarca, Mild pulmonary groundglass opacity, likely represents pulmonary edema, 12 mm focus of low attenuation within the dome of the right hepatic lobe. Complex cyst , early hepatic abscess, less likely neoplasm given patient's age. Consider further evaluation with sonography to see if this is sonographically visible Diverticulosis. No evidence of diverticulitis -Cdiff neg -v/duplex no DVT -HIV ab sc and VL neg, RPR/FTA, GC/CL neg Aspiration PNA , s/p Rx -CXR 09/04 : Interim development of hazy interstitial and airspace disease in the right lung. This may to some extent be an artifact of less optimal inspiration, however. Interim extubation -sp cx normal ann; repeat sp cx MSSA -legionella ag urine neg Sp sepsis - Hep C +; VL ND -ABD US: Gallbladder sludge. Negative for gallstones or dilated ducts. Equivocal increased hepatic echogenicity, if real could indicate hepatocellular disease such as fatty change. Borderline hepatomegaly. Mildly increased renal echogenicity, could indicate medical renal disease. Correlate with renal function tests. Left pleural effusion -Hep A and B immune Drug overdose -UDS + opiates, amphetamines, THC, cocaine -+empty heroin needles (found on hotel room) Multiorgan failure -LUCRECIA, - on HD; now off HD, permacath removed 09/25 -Transaminitis, (shock liver); improving -VDRF (airway protection)- extubated 09/03 Lactic acidosis; resolved Rhabdomyolisis; improving Pancreatitis- drug induced -neg alcohol levels Encephalopathy - improved -CT head 09/04: Unusual scalp contusion, new since prior study 08/29/2017. No evidence of underlying calvarial trauma. Negative for acute intracranial bleed or mass effect Plan: Continue to monitor off abx 09/25 SP Dapto d#10, Merrem d#10, Micafungin #6 - 09/14/17 - SP IV Micafungin # 7 ( Emperic coverage of fungemia ) -09/14/17 - S/P IV Vanco and Zosyn # 9 -09/04 SP IV Azithromycin #3 -09/03 SP Zosyn #6 -May need repeat CT abd/p if persistent fevers and leukocytosis - Monitor CBC/CMP, temperatures - aspiration precautions - CRP - Monitor CK - Neuro,cardio, renal, GI f/u - Consider liver abscess if leukocytosis does not resolve. -Bcx x2, CXR 2v am Subjective Allergies: Coded Allergies: NO KNOWN ALLERGIES (Verified Allergy, Unknown, 09/02/17) Subjective Tm 100.2 wbc 15.4 Cr improving Objective Vital Signs Last 24 Hour Vital Signs Date Time Temp Pulse Resp B/P (MAP) Pulse Ox O2 Delivery O2 Flow Rate FiO2 09/27/17 17:27 136/78 09/27/17 16:00 98.4 80 17 136/78 (97) 98 98.4 09/27/17 12:00 97.9 82 18 133/86 (102) 98 97.9 09/27/17 10:10 139/88 09/27/17 09:38 76 139/88 09/27/17 08:00 98.6 76 20 139/88 (105) 98 98.6 09/27/17 04:00 98.2 67 18 146/89 (108) 97 98.2 09/27/17 03:07 148/94 09/27/17 00:00 99.0 64 18 148/94 (112) 97 99.0 09/26/17 21:51 99.0 09/26/17 20:52 100.2 09/26/17 20:00 100.2 72 18 141/86 (104) 97 100.2 09/26/17 18:40 143/92 Height (Feet): 5 Height (Inches): 5.00 Weight (Pounds): 155 Objective General: intubated, restless HEENT: ETT in place Heart: RRR, no murmurs Lungs: CTA x2 ABD: S+D, ND, BS+ Extremity no edema or cellulitis Laboratory Tests Test 09/27/17 05:55 White Blood Count 15.4 K/UL (4.8-10.8) H Red Blood Count 2.86 M/UL (4.70-6.10) L Hemoglobin 9.0 G/DL (14.2-18.0) L Hematocrit 26.6 % (42.0-52.0) L Mean Corpuscular Volume 93 FL (80-99) Mean Corpuscular Hemoglobin 31.6 PG (27.0-31.0) H Mean Corpuscular Hemoglobin Concent 33.9 G/DL (32.0-36.0) Red Cell Distribution Width 11.6 % (11.6-14.8) Platelet Count 624 K/UL (150-450) H Mean Platelet Volume 5.9 FL (6.5-10.1) L Neutrophils (%) (Auto) 79.2 % (45.0-75.0) H Lymphocytes (%) (Auto) 11.7 % (20.0-45.0) L Monocytes (%) (Auto) 6.8 % (1.0-10.0) Eosinophils (%) (Auto) 1.4 % (0.0-3.0) Basophils (%) (Auto) 0.9 % (0.0-2.0) Sodium Level 141 MMOL/L (136-145) Potassium Level 4.2 MMOL/L (3.5-5.1) Chloride Level 108 MMOL/L (98-107) H Carbon Dioxide Level 23 MMOL/L (21-32) Anion Gap 10 mmol/L (5-15) Blood Urea Nitrogen 25 mg/dL (7-18) H Creatinine 1.3 MG/DL (0.55-1.30) Estimat Glomerular Filtration Rate > 60 mL/min (>60) Glucose Level 96 MG/DL (74-106) Calcium Level 8.8 MG/DL (8.5-10.1) Current Medications Medications (Trade) Dose Ordered Sig/Krystyna Route PRN Reason Start Time Stop Time Status Last Admin Dose Admin Acetaminophen (Tylenol) 650 mg Q4H PRN ORAL Fever (temp>100.5F) 09/05/17 18:30 10/05/17 18:29 09/27/17 11:35 Aluminum Hydroxide (Amphojel) 1,920 mg Q8H ORAL 09/18/17 15:00 10/18/17 14:59 09/27/17 15:25 Amlodipine Besylate (Norvasc) 2.5 mg DAILY ORAL 09/23/17 09:00 10/23/17 08:59 09/27/17 09:38 Chlorhexidine Gluconate (Jyotsna-Hex 2%) 1 applic DAILY@1999 TOPIC 09/05/17 20:00 09/29/17 19:59 09/24/17 20:30 Clonidine HCl (Catapres Tab) 0.1 mg Q8H ORAL 09/17/17 18:00 10/10/17 03:59 09/27/17 17:27 Dextrose (Dextrose 50%) 25 ml STAT PRN IV Hypoglycemia 09/05/17 18:30 10/05/17 18:29 Dextrose (Dextrose 50%) 50 ml STAT PRN IV Hypoglycemia 09/05/17 18:30 10/05/17 18:29 Docusate Sodium (Colace) 100 mg TID ORAL 09/17/17 13:00 10/17/17 12:59 09/25/17 17:34 Epoetin Joel (Procrit (for non ESRD use)) 3,000 units SAT-SAT-SAT SUBQ 09/23/17 21:00 10/23/17 20:59 09/23/17 21:45 Heparin Sodium (Porcine) (Heparin 5000 units/ml) 5,000 units EVERY 12 HOURS SUBQ 09/05/17 21:00 09/28/17 20:59 09/27/17 09:39 Mirtazapine (Remeron) 15 mg BEDTIME ORAL 09/05/17 21:00 10/04/17 20:59 09/26/17 20:51 Nitroglycerin (Ntg) 0.4 mg Q5M PRN SL Prn Chest Pain 09/05/17 18:30 09/28/17 14:44 Pantoprazole (Protonix) 40 mg Q12HR ORAL 09/18/17 14:00 10/18/17 13:59 09/27/17 09:37 Potassium Chloride (K-Dur) 40 meq TWICE A DAY GT 09/22/17 18:00 10/22/17 17:59 09/27/17 17:27 Quetiapine Fumarate (SEROquel) 50 mg DAILY ORAL 09/17/17 09:00 10/17/17 08:59 09/27/17 09:37 Quetiapine Fumarate (SEROquel) 50 mg Q4H PRN ORAL agitation 09/10/17 14:00 10/10/17 13:59 09/18/17 01:47 Quetiapine Fumarate (SEROquel) 50 mg QLUNCH ORAL 09/17/17 11:30 10/17/17 11:29 09/27/17 11:34 Quetiapine Fumarate (SEROquel) 100 mg BEDTIME ORAL 09/16/17 21:00 10/16/17 20:59 09/26/17 20:52 Sevelamer Carbonate (Renvela) 1,600 mg THREE TIMES A DAY ORAL 09/18/17 09:00 10/18/17 08:59 09/27/17 17:26 Tamsulosin HCl (Flomax) 0.4 mg BEDTIME ORAL 09/20/17 12:00 10/20/17 11:59 09/26/17 20:52 Krystal Romero M.D. Sep 27, 2017 17:49
[2017-09-27 20:00] VITALS: BP 140/84
[2017-09-27] MEDS: Tamsulosin 0.4mg cap ORAL SCH (20:26)
[2017-09-27] MEDS: Dyna-Hex 2% Top Sol 2oz TOPIC SCH (20:27)
[2017-09-27] MEDS: Epogen (for non ESRD use) SUBQ SCH (22:00)
[2017-09-28] VITALS: BP 128/80
[2017-09-28 04:00] VITALS: BP 138/92
[2017-09-28] MEDS: Aluminum Hydroxide Gel Susp 15ml ORAL SCH ×3 (07:00→23:00)
[2017-09-28 07:38] LABS: HEMATOCRIT 28.1 % (42.0-52.0); HEMOGLOBIN 9.3 G/DL (14.2-18.0); MEAN CORPUSCULAR VOLUME 94 FL (80-99); PLATELET COUNT 711 K/UL (150-450); RED CELL DISTRIBUTION WIDTH 11.8 % (11.6-14.8); WHITE BLOOD COUNT 18.5 K/UL (4.8-10.8)
[2017-09-28 07:46] LABS: ANION GAP 11 mmol/L (5-15); BLOOD UREA NITROGEN 27 mg/dL (7-18); CALCIUM 9.5 MG/DL (8.5-10.1); CARBON DIOXIDE 25 MMOL/L (21-32); CHLORIDE 106 MMOL/L (98-107); CREATININE 1.4 MG/DL (0.55-1.30); POTASSIUM 4.9 MMOL/L (3.5-5.1); SODIUM 142 MMOL/L (136-145)
[2017-09-28 07:55] VITALS: BP 141/92
--- NOTE | 2017-09-28 08:10 | General Progress Note ---
Assessment/Plan Problem List: (1) Rhabdomyolysis ICD Codes: M62.82 - Rhabdomyolysis SNOMED: 943475030 Qualifiers: Qualified Codes: T79.6XXA - Traumatic ischemia of muscle, initial encounter (2) Aspiration pneumonia ICD Codes: J69.0 - Pneumonitis due to inhalation of food and vomit SNOMED: 248042232 Qualifiers: Qualified Codes: J69.0 - Pneumonitis due to inhalation of food and vomit (3) Substance abuse ICD Codes: F19.10 - Other psychoactive substance abuse, uncomplicated SNOMED: 99220751 (4) Transaminitis ICD Codes: R74.0 - Nonspecific elevation of levels of transaminase and lactic acid dehydrogenase [LDH] SNOMED: 240150997, 489874355 Assessment/Plan Hep A immunity Hep C positive transaminitis >> downtrending, near normal levels cdiff negative stool culture >> gram negative bacillus elevated lipase >> now normal OB stool negative x2 prn transfusions renal diet abx supportive care ppi fu labs, lipase, trend LFTs outpatient Hep C tx Subjective ROS Limited/Unobtainable: Yes Allergies: Coded Allergies: NO KNOWN ALLERGIES (Verified Allergy, Unknown, 09/02/17) Objective Last 24 Hour Vital Signs Date Time Temp Pulse Resp B/P (MAP) Pulse Ox O2 Delivery O2 Flow Rate FiO2 09/28/17 07:55 98.2 85 20 141/92 (108) 97 98.2 09/28/17 04:00 98.0 75 20 138/92 (107) 98 98.0 09/28/17 01:59 127/73 09/28/17 00:00 98.1 62 19 128/80 (96) 97 98.1 09/27/17 20:00 98.4 69 19 140/84 (102) 98 98.4 09/27/17 17:27 136/78 09/27/17 16:00 98.4 80 17 136/78 (97) 98 98.4 09/27/17 12:00 97.9 82 18 133/86 (102) 98 97.9 09/27/17 10:10 139/88 09/27/17 09:38 76 139/88 Intake and Output 09/27/17 09/28/17 19:00 07:00 Intake Total 1200 ml Output Total 1800 ml 2750 ml Balance -1800 ml -1550 ml Intake Oral 1200 ml Output Urine Total 1800 ml 2750 ml # Voids 2 # Bowel Movements 1 Laboratory Tests 09/28/17 07:00: White Blood Count 18.5H, Red Blood Count 3.00L, Hemoglobin 9.3L, Hematocrit 28.1L, Mean Corpuscular Volume 94, Mean Corpuscular Hemoglobin 31.0, Mean Corpuscular Hemoglobin Concent 33.1, Red Cell Distribution Width 11.8, Platelet Count 711H, Mean Platelet Volume 6.0L, Neutrophils (%) (Auto) , Lymphocytes (%) (Auto) , Monocytes (%) (Auto) , Eosinophils (%) (Auto) , Basophils (%) (Auto) , Neutrophils % (Manual) [Pending], Lymphocytes % (Manual) [Pending], Platelet Estimate [Pending], Platelet Morphology [Pending], Sodium Level 142, Potassium Level 4.9, Chloride Level 106, Carbon Dioxide Level 25, Anion Gap 11, Blood Urea Nitrogen 27H, Creatinine 1.4H, Estimat Glomerular Filtration Rate 56.4, Glucose Level 95, Calcium Level 9.5 Height (Feet): 5 Height (Inches): 5.00 Weight (Pounds): 154 General Appearance: alert EENT: normal ENT inspection Neck: supple Cardiovascular: normal rate Respiratory/Chest: decreased breath sounds Abdomen: normal bowel sounds, non tender, soft Extremities: non-tender Efrain Chavez MD Sep 28, 2017 08:10
[2017-09-28] MEDS: Docusate 100mg cap ORAL SCH ×3 (09:00→17:27)
--- NOTE | 2017-09-28 09:00 | General Progress Note ---
Assessment/Plan Problem List: (1) Substance abuse ICD Codes: F19.10 - Other psychoactive substance abuse, uncomplicated SNOMED: 19466625 (2) Respiratory failure ICD Codes: J96.90 - Respiratory failure, unspecified, unspecified whether with hypoxia or hypercapnia SNOMED: 253572360 Qualifiers: Qualified Codes: J96.01 - Acute respiratory failure with hypoxia (3) Rhabdomyolysis ICD Codes: M62.82 - Rhabdomyolysis SNOMED: 301786266 Qualifiers: Qualified Codes: T79.6XXA - Traumatic ischemia of muscle, initial encounter (4) NSTEMI (non-ST elevated myocardial infarction) ICD Codes: I21.4 - Non-ST elevation (NSTEMI) myocardial infarction SNOMED: 438190149 (5) LUCRECIA (acute kidney injury) ICD Codes: N17.9 - Acute kidney failure, unspecified SNOMED: 95144195 Status: stable, progressing Assessment/Plan ot pt diet abx neuro psyc eval cbc bmp am dc plan snf Subjective Constitutional: Reports: weakness Allergies: Coded Allergies: NO KNOWN ALLERGIES (Verified Allergy, Unknown, 09/02/17) All Systems: reviewed and negative except above Subjective calm in bed sleepy Objective Last 24 Hour Vital Signs Date Time Temp Pulse Resp B/P (MAP) Pulse Ox O2 Delivery O2 Flow Rate FiO2 09/28/17 07:55 98.2 85 20 141/92 (108) 97 98.2 09/28/17 04:00 98.0 75 20 138/92 (107) 98 98.0 09/28/17 01:59 127/73 09/28/17 00:00 98.1 62 19 128/80 (96) 97 98.1 09/27/17 20:00 98.4 69 19 140/84 (102) 98 98.4 09/27/17 17:27 136/78 09/27/17 16:00 98.4 80 17 136/78 (97) 98 98.4 09/27/17 12:00 97.9 82 18 133/86 (102) 98 97.9 09/27/17 10:10 139/88 09/27/17 09:38 76 139/88 Intake and Output 09/27/17 09/28/17 19:00 07:00 Intake Total 1200 ml Output Total 1800 ml 2750 ml Balance -1800 ml -1550 ml Intake Oral 1200 ml Output Urine Total 1800 ml 2750 ml # Voids 2 # Bowel Movements 1 Laboratory Tests 09/28/17 07:00: White Blood Count 18.5H, Red Blood Count 3.00L, Hemoglobin 9.3L, Hematocrit 28.1L, Mean Corpuscular Volume 94, Mean Corpuscular Hemoglobin 31.0, Mean Corpuscular Hemoglobin Concent 33.1, Red Cell Distribution Width 11.8, Platelet Count 711H, Mean Platelet Volume 6.0L, Neutrophils (%) (Auto) , Lymphocytes (%) (Auto) , Monocytes (%) (Auto) , Eosinophils (%) (Auto) , Basophils (%) (Auto) , Neutrophils % (Manual) [Pending], Lymphocytes % (Manual) [Pending], Platelet Estimate [Pending], Platelet Morphology [Pending], Sodium Level 142, Potassium Level 4.9, Chloride Level 106, Carbon Dioxide Level 25, Anion Gap 11, Blood Urea Nitrogen 27H, Creatinine 1.4H, Estimat Glomerular Filtration Rate 56.4, Glucose Level 95, Calcium Level 9.5 Height (Feet): 5 Height (Inches): 5.00 Weight (Pounds): 154 General Appearance: lethargic EENT: normal ENT inspection Neck: normal alignment Cardiovascular: normal peripheral pulses, normal rate, regular rhythm Respiratory/Chest: chest wall non-tender, lungs clear, normal breath sounds Abdomen: normal bowel sounds, non tender, soft Extremities: normal inspection Edema: no edema noted Arm (L), no edema noted Arm (R), no edema noted Leg (L), no edema noted Leg (R), no edema noted Pedal (L), no edema noted Pedal (R), no edema noted Generalized Neurologic: responsive, motor weakness Skin: normal pigmentation, warm/dry Reid Anaya DO Sep 28, 2017 09:00
[2017-09-28] MEDS: Heparin 5000 units/ml inj SUBQ SCH (09:08)
--- NOTE | 2017-09-28 10:31 | Diagnostic Imaging Report ---
Chest PA and lateral views INDICATION: Cough COMPARISON: Chest x-ray dated 09/06/17 FINDINGS: PA and lateral views of the chest are obtained. Removal of right internal jugular catheter. Improved aeration of the right lung. The cardiomediastinal silhouette is within normal limits. Increased pulmonary markings. No pleural effusions. Bony elements are within normal limits. IMPRESSION: Increased pulmonary markings suggestive of congestion. Otherwise, no acute cardiopulmonary disease.
--- NOTE | 2017-09-28 11:18 | Nephrology Progress Note ---
Assessment/Plan Assessment 1.LUCRECIA resolving off dialysis 2.Drug overdose 3.hypomagnesemia Plan replace electrolyte as need it monitoring renal function monitoring out put Subjective Constitutional: Reports: no symptoms HEENT: Reports: no symptoms Neurologic/Psychiatric: Reports: no symptoms Subjective no complaints Objective Objective Last 24 Hour Vital Signs Date Time Temp Pulse Resp B/P (MAP) Pulse Ox O2 Delivery O2 Flow Rate FiO2 09/28/17 09:09 141/92 09/28/17 09:06 85 141/92 09/28/17 07:55 98.2 85 20 141/92 (108) 97 98.2 09/28/17 04:00 98.0 75 20 138/92 (107) 98 98.0 09/28/17 01:59 127/73 09/28/17 00:00 98.1 62 19 128/80 (96) 97 98.1 09/27/17 20:00 98.4 69 19 140/84 (102) 98 98.4 09/27/17 17:27 136/78 09/27/17 16:00 98.4 80 17 136/78 (97) 98 98.4 09/27/17 12:00 97.9 82 18 133/86 (102) 98 97.9 Intake and Output 09/27/17 09/28/17 19:00 07:00 Intake Total 1200 ml Output Total 1800 ml 2750 ml Balance -1800 ml -1550 ml Intake Oral 1200 ml Output Urine Total 1800 ml 2750 ml # Voids 2 # Bowel Movements 1 Laboratory Tests 09/28/17 07:00: White Blood Count 18.5H, Red Blood Count 3.00L, Hemoglobin 9.3L, Hematocrit 28.1L, Mean Corpuscular Volume 94, Mean Corpuscular Hemoglobin 31.0, Mean Corpuscular Hemoglobin Concent 33.1, Red Cell Distribution Width 11.8, Platelet Count 711H, Mean Platelet Volume 6.0L, Neutrophils (%) (Auto) , Lymphocytes (%) (Auto) , Monocytes (%) (Auto) , Eosinophils (%) (Auto) , Basophils (%) (Auto) , Differential Total Cells Counted 100, Neutrophils % (Manual) 85H, Lymphocytes % (Manual) 13L, Monocytes % (Manual) 1, Eosinophils % (Manual) 0, Basophils % ( Manual) 1, Band Neutrophils 0, Platelet Estimate IncreasedH, Platelet Morphology Normal, Hypochromasia 2+, Anisocytosis 1+, Spherocytes 1+, Sodium Level 142, Potassium Level 4.9, Chloride Level 106, Carbon Dioxide Level 25, Anion Gap 11, Blood Urea Nitrogen 27H, Creatinine 1.4H, Estimat Glomerular Filtration Rate 56.4, Glucose Level 95, Calcium Level 9.5 Height (Feet): 5 Height (Inches): 5.00 Weight (Pounds): 154 Objective HEAD AND NECK: No JVP. No LAD. G-tube is in place. Head is atraumatic and normocephalic. LUNGS: He has decreased breathing sounds on the both sides. CARDIAC: Regular rate and rhythm. S1 and S2. No murmur. No rub. ABDOMEN: Soft. Bowel sounds positive. EXTREMITIES: No edema. No clubbing. No cyanosis. Aixa Veloz MD Sep 28, 2017 11:18
[2017-09-28] MEDS ORDERED: D5NS 1000ml IV ONE (11:25)
[2017-09-28] MEDS ORDERED: NS 275ml ONE (11:25)
[2017-09-28 11:59] VITALS: BP 149/81
--- NOTE | 2017-09-28 12:45 | Infectious Diseases Prog Note ---
Assessment/Plan Assessment/Plan Assessment/Plan Leukocytosis No source found - Pancreatitis ?, R gluteal hematoma vs liver abscess; increased now -Bcx 09/27 p CXR: Increased pulmonary markings suggestive of congestion. Otherwise, no acute cardiopulmonary disease. -u/a wbc 5-10, nit neg, leuk +1; cx neg -Bcx NTD (09/05 abd 09/07) -2d Echo (limited but no vegetations seen) - No Veg on KATELYN 09/10/17 - Tagged WBCs no focal uptake - MRI pelvis 09/11/17 : Diffuse symmetric edema of the bilateral buttock musculature , ? Myositis Discrete 3 x 3 x 7.3 cm fluid collection in the lateral left buttock musculature 09/13 SP No purulent material aspirated. Only small amount of blood aspirated Cx : Negative Blood Cx 09/17/17 - Neg Urine Cx 09/18/17 - Low counts MDR ABC (colonizers) Fever:; resolving- source ? Rhabdo vs pancreatitis, R gluteal hemotoma - CT scan 09/19/17 - Interim development of what is probably a right buttock hematoma, measuring 6 x 3.5 by at least 11 cm, Worsening anasarca, Mild pulmonary groundglass opacity, likely represents pulmonary edema, 12 mm focus of low attenuation within the dome of the right hepatic lobe. Complex cyst , early hepatic abscess, less likely neoplasm given patient's age. Consider further evaluation with sonography to see if this is sonographically visible Diverticulosis. No evidence of diverticulitis -Cdiff neg -v/duplex no DVT -HIV ab sc and VL neg, RPR/FTA, GC/CL neg Aspiration PNA , s/p Rx -CXR 09/04 : Interim development of hazy interstitial and airspace disease in the right lung. This may to some extent be an artifact of less optimal inspiration, however. Interim extubation -sp cx normal ann; repeat sp cx MSSA -legionella ag urine neg Sp sepsis - Hep C +; VL ND -ABD US: Gallbladder sludge. Negative for gallstones or dilated ducts. Equivocal increased hepatic echogenicity, if real could indicate hepatocellular disease such as fatty change. Borderline hepatomegaly. Mildly increased renal echogenicity, could indicate medical renal disease. Correlate with renal function tests. Left pleural effusion -Hep A and B immune Drug overdose -UDS + opiates, amphetamines, THC, cocaine -+empty heroin needles (found on hotel room) Multiorgan failure -LUCRECIA, - on HD; now off HD, permacath removed 09/25 -Transaminitis, (shock liver); improving -VDRF (airway protection)- extubated 09/03 Lactic acidosis; resolved Rhabdomyolisis; improving Pancreatitis- drug induced -neg alcohol levels Encephalopathy - improved -CT head 09/04: Unusual scalp contusion, new since prior study 08/29/2017. No evidence of underlying calvarial trauma. Negative for acute intracranial bleed or mass effect Plan: Continue to monitor off abx unless increased fever, WBC 09/25 SP Dapto d#10, Merrem d#10, Micafungin #6 - 09/14/17 - SP IV Micafungin # 7 ( Emperic coverage of fungemia ) -09/14/17 - S/P IV Vanco and Zosyn # 9 -09/04 SP IV Azithromycin #3 -09/03 SP Zosyn #6 -May need repeat CT abd/p if persistent fevers and leukocytosis - Monitor CBC/CMP, temperatures - aspiration precautions - Monitor CK - Neuro,cardio, renal, GI f/u - Consider liver abscess if leukocytosis does not resolve. -f/u repeat Bcx x2 -CBC, CMP, CRP am Subjective Allergies: Coded Allergies: NO KNOWN ALLERGIES (Verified Allergy, Unknown, 09/02/17) Subjective afebrile in 36hrs no cbc today Bcx p Objective Vital Signs Last 24 Hour Vital Signs Date Time Temp Pulse Resp B/P (MAP) Pulse Ox O2 Delivery O2 Flow Rate FiO2 09/28/17 11:59 97.7 81 20 149/81 (103) 99 97.7 09/28/17 09:09 141/92 09/28/17 09:06 85 141/92 09/28/17 07:55 98.2 85 20 141/92 (108) 97 98.2 09/28/17 04:00 98.0 75 20 138/92 (107) 98 98.0 09/28/17 01:59 127/73 09/28/17 00:00 98.1 62 19 128/80 (96) 97 98.1 09/27/17 20:00 98.4 69 19 140/84 (102) 98 98.4 09/27/17 17:27 136/78 09/27/17 16:00 98.4 80 17 136/78 (97) 98 98.4 Height (Feet): 5 Height (Inches): 5.00 Weight (Pounds): 154 Objective General: intubated, restless HEENT: ETT in place Heart: RRR, no murmurs Lungs: CTA x2 ABD: S+D, ND, BS+ Extremity no edema or cellulitis Laboratory Tests Test 09/28/17 07:00 White Blood Count 18.5 K/UL (4.8-10.8) H Red Blood Count 3.00 M/UL (4.70-6.10) L Hemoglobin 9.3 G/DL (14.2-18.0) L Hematocrit 28.1 % (42.0-52.0) L Mean Corpuscular Volume 94 FL (80-99) Mean Corpuscular Hemoglobin 31.0 PG (27.0-31.0) Mean Corpuscular Hemoglobin Concent 33.1 G/DL (32.0-36.0) Red Cell Distribution Width 11.8 % (11.6-14.8) Platelet Count 711 K/UL (150-450) H Mean Platelet Volume 6.0 FL (6.5-10.1) L Neutrophils (%) (Auto) % (45.0-75.0) Lymphocytes (%) (Auto) % (20.0-45.0) Monocytes (%) (Auto) % (1.0-10.0) Eosinophils (%) (Auto) % (0.0-3.0) Basophils (%) (Auto) % (0.0-2.0) Differential Total Cells Counted 100 Neutrophils % (Manual) 85 % (45-75) H Lymphocytes % (Manual) 13 % (20-45) L Monocytes % (Manual) 1 % (1-10) Eosinophils % (Manual) 0 % (0-3) Basophils % (Manual) 1 % (0-2) Band Neutrophils 0 % (0-8) Platelet Estimate Increased H Platelet Morphology Normal Hypochromasia 2+ Anisocytosis 1+ Spherocytes 1+ Sodium Level 142 MMOL/L (136-145) Potassium Level 4.9 MMOL/L (3.5-5.1) Chloride Level 106 MMOL/L (98-107) Carbon Dioxide Level 25 MMOL/L (21-32) Anion Gap 11 mmol/L (5-15) Blood Urea Nitrogen 27 mg/dL (7-18) H Creatinine 1.4 MG/DL (0.55-1.30) H Estimat Glomerular Filtration Rate 56.4 mL/min (>60) Glucose Level 95 MG/DL (74-106) Calcium Level 9.5 MG/DL (8.5-10.1) Current Medications Medications (Trade) Dose Ordered Sig/Krystyna Route PRN Reason Start Time Stop Time Status Last Admin Dose Admin Acetaminophen (Tylenol) 650 mg Q4H PRN ORAL Fever (temp>100.5F) 09/05/17 18:30 10/05/17 18:29 09/27/17 20:28 Aluminum Hydroxide (Amphojel) 1,920 mg Q8H ORAL 09/18/17 15:00 10/18/17 14:59 09/27/17 21:59 Amlodipine Besylate (Norvasc) 2.5 mg DAILY ORAL 09/23/17 09:00 10/23/17 08:59 09/28/17 09:06 Chlorhexidine Gluconate (Jyotsna-Hex 2%) 1 applic DAILY@2000 TOPIC 09/05/17 20:00 09/29/17 19:59 09/27/17 20:27 Clonidine HCl (Catapres Tab) 0.1 mg Q8H ORAL 09/17/17 18:00 10/10/17 03:59 09/28/17 09:09 Dextrose (Dextrose 50%) 25 ml STAT PRN IV Hypoglycemia 09/05/17 18:30 10/05/17 18:29 Dextrose (Dextrose 50%) 50 ml STAT PRN IV Hypoglycemia 09/05/17 18:30 10/05/17 18:29 Docusate Sodium (Colace) 100 mg TID ORAL 09/17/17 13:00 10/17/17 12:59 09/25/17 17:34 Epoetin Joel (Procrit (for non ESRD use)) 3,000 units SAT-SAT-SAT SUBQ 09/23/17 21:00 10/23/17 20:59 09/27/17 22:00 Heparin Sodium (Porcine) (Heparin 5000 units/ml) 5,000 units EVERY 12 HOURS SUBQ 09/05/17 21:00 09/28/17 20:59 09/28/17 09:08 Mirtazapine (Remeron) 15 mg BEDTIME ORAL 09/05/17 21:00 10/04/17 20:59 09/27/17 20:27 Nitroglycerin (Ntg) 0.4 mg Q5M PRN SL Prn Chest Pain 09/05/17 18:30 09/28/17 14:44 Pantoprazole (Protonix) 40 mg Q12HR ORAL 09/18/17 14:00 10/18/17 13:59 09/28/17 09:07 Potassium Chloride (K-Dur) 40 meq TWICE A DAY GT 09/22/17 18:00 10/22/17 17:59 09/28/17 09:06 Quetiapine Fumarate (SEROquel) 50 mg DAILY ORAL 09/17/17 09:00 10/17/17 08:59 09/27/17 09:37 Quetiapine Fumarate (SEROquel) 50 mg Q4H PRN ORAL agitation 09/10/17 14:00 10/10/17 13:59 09/18/17 01:47 Quetiapine Fumarate (SEROquel) 50 mg QLUNCH ORAL 09/17/17 11:30 10/17/17 11:29 09/27/17 11:34 Quetiapine Fumarate (SEROquel) 100 mg BEDTIME ORAL 09/16/17 21:00 10/16/17 20:59 09/27/17 20:27 Sevelamer Carbonate (Renvela) 1,600 mg THREE TIMES A DAY ORAL 09/18/17 09:00 10/18/17 08:59 09/28/17 09:06 Tamsulosin HCl (Flomax) 0.4 mg BEDTIME ORAL 09/20/17 12:00 10/20/17 11:59 09/27/17 20:26 Krystal Romero M.D. Sep 28, 2017 12:45
--- NOTE | 2017-09-28 14:40 | General Progress Note ---
Assessment/Plan Status: stable Assessment/Plan # Anemia of chronic disease. Anemia w/u has been reviewed. Will trend CBC daily. --> Continue to closely monitor for stability. --> Ferritin and tibc reviewed, consistent with anemia of chronic disease --> Hgb goal above >7 --> 8/5: 1 unit PRBC, 88: 1 unit, 09/19: 1 unit, --> CURRENT Hgb at 9.3 --> given elev Cr, will start low dose epogen once a week dosing # Leukocytosis. due to infection, however no source is found. AFEBRILE --> Closely monitor for improvement. --> CURRENT WBC 18.5, elevated --> Currently on IV abx. --> Consider liver abscess if leukocytosis does not resolve. # Thrombocytosis. Likely reactive process to anemia --> Closely monitor PLT count for improvement. --> should improve with improvement in anemia as well --> CURRENT PLT count of 711, elevated. # Transaminitis. Trending downwards. The time the note was entered does not necessarily correspond to the time the patient was seen. Subjective Date patient seen: Sep 28, 2017 ROS Limited/Unobtainable: Yes Hematologic/Lymphatic: Reports: anemia Allergies: Coded Allergies: NO KNOWN ALLERGIES (Verified Allergy, Unknown, 09/02/17) All Systems: reviewed and negative except above Subjective Pt awake and alert. No acute events. H/H stable. DC planning. Objective Last 24 Hour Vital Signs Date Time Temp Pulse Resp B/P (MAP) Pulse Ox O2 Delivery O2 Flow Rate FiO2 09/28/17 11:59 97.7 81 20 149/81 (103) 99 97.7 09/28/17 09:09 141/92 09/28/17 09:06 85 141/92 09/28/17 07:55 98.2 85 20 141/92 (108) 97 98.2 09/28/17 04:00 98.0 75 20 138/92 (107) 98 98.0 09/28/17 01:59 127/73 09/28/17 00:00 98.1 62 19 128/80 (96) 97 98.1 09/27/17 20:00 98.4 69 19 140/84 (102) 98 98.4 09/27/17 17:27 136/78 09/27/17 16:00 98.4 80 17 136/78 (97) 98 98.4 Intake and Output 09/27/17 09/28/17 19:00 07:00 Intake Total 1200 ml Output Total 1800 ml 2750 ml Balance -1800 ml -1550 ml Intake Oral 1200 ml Output Urine Total 1800 ml 2750 ml # Voids 2 # Bowel Movements 1 Laboratory Tests 09/28/17 07:00: White Blood Count 18.5H, Red Blood Count 3.00L, Hemoglobin 9.3L, Hematocrit 28.1L, Mean Corpuscular Volume 94, Mean Corpuscular Hemoglobin 31.0, Mean Corpuscular Hemoglobin Concent 33.1, Red Cell Distribution Width 11.8, Platelet Count 711H, Mean Platelet Volume 6.0L, Neutrophils (%) (Auto) , Lymphocytes (%) (Auto) , Monocytes (%) (Auto) , Eosinophils (%) (Auto) , Basophils (%) (Auto) , Differential Total Cells Counted 100, Neutrophils % (Manual) 85H, Lymphocytes % (Manual) 13L, Monocytes % (Manual) 1, Eosinophils % (Manual) 0, Basophils % ( Manual) 1, Band Neutrophils 0, Platelet Estimate IncreasedH, Platelet Morphology Normal, Hypochromasia 2+, Anisocytosis 1+, Spherocytes 1+, Sodium Level 142, Potassium Level 4.9, Chloride Level 106, Carbon Dioxide Level 25, Anion Gap 11, Blood Urea Nitrogen 27H, Creatinine 1.4H, Estimat Glomerular Filtration Rate 56.4, Glucose Level 95, Calcium Level 9.5 Height (Feet): 5 Height (Inches): 5.00 Weight (Pounds): 154 General Appearance: no apparent distress EENT: PERRL/EOMI Neck: normal alignment Cardiovascular: normal peripheral pulses Respiratory/Chest: no respiratory distress Abdomen: soft Diogenes Flores MD Sep 28, 2017 14:40
[2017-09-28 15:57] VITALS: BP 139/94
--- NOTE | 2017-09-28 16:48 | Diagnostic Imaging Report ---
EXAM: XR Left Foot Complete, 3 or More Views CLINICAL HISTORY: PAIN TECHNIQUE: Frontal, lateral and oblique views of the left foot. COMPARISON: No relevant prior studies available. FINDINGS: Bones/joints: Unremarkable. No visible displaced fracture. No dislocation. No osseous erosions. Visualized joint spaces appear unremarkable. Soft tissues: Unremarkable. No radiopaque foreign body. IMPRESSION: Unremarkable left foot x-rays.
--- NOTE | 2017-09-28 16:58 | Neurology Progress Note ---
Interim History Interim History Interim History Mr. Stover feels relatively well. The left foot is painful when there is any pressure on the sole of the foot. X-Rays of the left foot have been taken but the results are pending. He is alert and bright. The mind is clear. He denies any agitation. His energy level is close to normal. His memory is also close to normal. His appetite is better. He is generally stronger. He has not walked much today. He denies any new neurologic symptoms. He specifically denies any increased weakness on one side or the other, numbness on one side or the other, problems with speech, problems with language , or problems with vision. Review of Systems Neuro Review of Systems Benign. Objective Physical Exam Last Vital Signs Date Time Temp Pulse Resp B/P (MAP) Pulse Ox O2 Delivery O2 Flow Rate FiO2 09/28/17 15:57 97.9 87 20 139/94 (109) 99 97.9 09/21/17 21:00 Room Air Laboratory Tests Test 09/28/17 07:00 White Blood Count 18.5 K/UL (4.8-10.8) H Red Blood Count 3.00 M/UL (4.70-6.10) L Hemoglobin 9.3 G/DL (14.2-18.0) L Hematocrit 28.1 % (42.0-52.0) L Mean Corpuscular Volume 94 FL (80-99) Mean Corpuscular Hemoglobin 31.0 PG (27.0-31.0) Mean Corpuscular Hemoglobin Concent 33.1 G/DL (32.0-36.0) Red Cell Distribution Width 11.8 % (11.6-14.8) Platelet Count 711 K/UL (150-450) H Mean Platelet Volume 6.0 FL (6.5-10.1) L Neutrophils (%) (Auto) % (45.0-75.0) Lymphocytes (%) (Auto) % (20.0-45.0) Monocytes (%) (Auto) % (1.0-10.0) Eosinophils (%) (Auto) % (0.0-3.0) Basophils (%) (Auto) % (0.0-2.0) Differential Total Cells Counted 100 Neutrophils % (Manual) 85 % (45-75) H Lymphocytes % (Manual) 13 % (20-45) L Monocytes % (Manual) 1 % (1-10) Eosinophils % (Manual) 0 % (0-3) Basophils % (Manual) 1 % (0-2) Band Neutrophils 0 % (0-8) Platelet Estimate Increased H Platelet Morphology Normal Hypochromasia 2+ Anisocytosis 1+ Spherocytes 1+ Sodium Level 142 MMOL/L (136-145) Potassium Level 4.9 MMOL/L (3.5-5.1) Chloride Level 106 MMOL/L (98-107) Carbon Dioxide Level 25 MMOL/L (21-32) Anion Gap 11 mmol/L (5-15) Blood Urea Nitrogen 27 mg/dL (7-18) H Creatinine 1.4 MG/DL (0.55-1.30) H Estimat Glomerular Filtration Rate 56.4 mL/min (>60) Glucose Level 95 MG/DL (74-106) Calcium Level 9.5 MG/DL (8.5-10.1) Neurologic Exam Objective PHYSICAL EXAMINATION: GENERAL: He is a well-developed, well-nourished, gentleman, lying in bed. HEAD: Normocephalic and atraumatic. EENT: Examination benign. NECK: No neck rigidity was observed. NEUROLOGIC EXAMINATION: MENTAL STATUS EXAMINATION: He was awake and alert. He was oriented to [facility], and [facility] and September 27, 2017. He was able to recall 3/3 words immediately, and could remember them in 1 and 3 minutes. He was able to remember presidents Trump through [employer]. His mathematical skills were good. His visuospatial function was good. SPEECH: He had no dysarthria. LANGUAGE: He had a mild anomia for low frequency words. CRANIAL NERVE EXAMINATION: II: The visual dinh were intact on confrontation testing. III, IV & : The external ocular movements were present. The pupils were 3 mm in diameter and reactive sluggishly to light. V: He had normal facial sensations and the temporales, masseters and pterygoids functioned well. VII: He had normal facial expressions and no facial asymmetry. VIII: He was able to hear well and had no nystagmus. IX: The palate moved symmetrically on phonation. X: He had no hoarseness of voice. XI: The sternocleidomastoids and trapezii functioned well. XII: The tongue was in the midline. MOTOR SYSTEM: The tone was normal in all four extremities. Examination of muscle mass revealed no focal wasting. Examination of power revealed G 5/5 power in all muscle groups except for G 0/5 in the right ankle dorsiflexors, toe extensors, ankle plantar flexors and toe flexors, G 5-/5 in the left ankle dorsiflexors and toe extensors, and G 4/5 in the iliopsoas muscle bilaterally. SENSORY EXAMINATION: He had altered sensations in the right peroneal distribution. He had tenderness with possibly neuropathic pain in the sole of his left foot. REFLEXES: Trace+ and bilaterally symmetrical at the biceps, triceps, brachioradialis, and knees, 0 at both ankles. The plantar responses were flexor bilaterally. COORDINATION: He performed well on finger to nose and heel to jolley testing. STANCE & GAIT: Could not be tested. Impression/Recommendations Diagnostic Impression 1. Mr. Enoch Stover is a 37-year-old, gentleman, of unknown handedness, who was found unconscious in a hotel room on 08/29/2017 after he had used multiple drugs. He was found to be possibly febrile, hypoglycemic, and breathing rapidly. Since then, he has been hospitalized and treated for sepsis. 2. He feels relatively well. The left foot is painful when there is any pressure on the sole of the foot. X-Rays of the left foot have been taken but the results are pending. He is alert and bright. The mind is clear. He denies any agitation. His energy level is close to normal. His memory is also close to normal. His appetite is better. He is generally stronger. He has not walked much today. He denies any new neurologic symptoms. 3. On neurological examination, at this time, he is awake and alert. He is fully oriented. His memory has normalized. His speech is normal. He has a mild anomia. His cranial nerves are functioning normally. His motor function is relatively good, he however has mild proximal lower extremity weakness, and mild distal left lower extremity weakness with no movement in the right ankle and toes. His sensations are altered in the right peroneal distribution. In addition the middle of the left sole of the foot is tender and he complains of neuropathic pain . His deep tendon reflexes are diminished but his plantar responses are flexor. He also does not demonstrate any definite focal or lateralizing neurological findings. 4. The CT scan of the brain performed on 08/29/2017 and repeated on 09/04/17 is benign for acute pathology. 5. Laboratory data obtained thus far revealed, on admission, his hemoglobin was elevated to 18.4, his WBC was normal at 8,500, but since then his WBCs have peaked to 17,200. His chemistry panel on admission revealed BUN elevated to 31 , creatinine elevated to 3.6, lactic acid elevated to 5.5, bilirubin elevated at 1.2, AST elevated at 478, ALT elevated to 159, CK elevated to greater than 10 ,000, troponin elevated at 1.01, BNP elevated to 2143. His urine toxicology screen was positive for opiates, amphetamines, cocaine, and marijuana. His INR was elevated at 1.2. His TSH is elevated at 4.72. The T3 is low but the T4 is normal. 6. The patient's history, neurological examination, laboratory data, and imaging studies are most compatible with an altered mental state due to a toxic metabolic encephalopathy. 7. The most likely etiology for the encephalopathy was the sepsis, possibly a period of hypoglycemia and ongoing multiple metabolic imbalances and the toxic imbalances. In addition the use of mind-altering drugs could have also been contributing. 8. His encephalopathy has improved markedly and continues to improve. 9. He has also developed bilateral mild proximal lower extremity weakness, and in addition severe right distal lower extremity weakness with severe right peroneal and tibial nerve dysfunction. His sensations are also altered in the right peroneal distribution. He is bothered by left foot pain for the last day or two. 10. Since 09/27/17 he has developed pain in the middle of the left sole of the foot and neuropathic pain when pressure is applied to the mid sole. Recommendations 1. Continue present management. 2. Continue aggressive treatment of the patient's infectious process. 3. Aggressive management of toxic/metabolic imbalances. 4. AFO for right foot drop. 5. PT/OT. 6. Await results of left foot X-Rays. 7. Observe closely. Chris Ricketts M.D., M.S.P.CHRIS GARDINER Sep 28, 2017 16:58
[2017-09-28 20:00] VITALS: BP 139/91
[2017-09-28] MEDS: Tamsulosin 0.4mg cap ORAL SCH (20:24)
[2017-09-28] MEDS: Dyna-Hex 2% Top Sol 2oz TOPIC SCH (20:24)
[2017-09-29] VITALS: BP 138/80
[2017-09-29 04:00] VITALS: BP 133/79
[2017-09-29] MEDS: Aluminum Hydroxide Gel Susp 15ml ORAL SCH ×3 (06:17→22:36)
--- NOTE | 2017-09-29 07:17 | General Progress Note ---
Assessment/Plan Problem List: (1) Rhabdomyolysis ICD Codes: M62.82 - Rhabdomyolysis SNOMED: 260051355 Qualifiers: Qualified Codes: T79.6XXA - Traumatic ischemia of muscle, initial encounter (2) Aspiration pneumonia ICD Codes: J69.0 - Pneumonitis due to inhalation of food and vomit SNOMED: 905843220 Qualifiers: Qualified Codes: J69.0 - Pneumonitis due to inhalation of food and vomit (3) Substance abuse ICD Codes: F19.10 - Other psychoactive substance abuse, uncomplicated SNOMED: 30759186 (4) Transaminitis ICD Codes: R74.0 - Nonspecific elevation of levels of transaminase and lactic acid dehydrogenase [LDH] SNOMED: 562506557, 223901649 Assessment/Plan Hep A immunity Hep C positive transaminitis >> downtrending, near normal levels cdiff negative stool culture >> gram negative bacillus elevated lipase >> now normal OB stool negative x2 prn transfusions renal diet abx supportive care ppi fu labs, lipase, trend LFTs outpatient Hep C tx Subjective ROS Limited/Unobtainable: Yes Allergies: Coded Allergies: NO KNOWN ALLERGIES (Verified Allergy, Unknown, 09/02/17) Subjective no event over night Objective Last 24 Hour Vital Signs Date Time Temp Pulse Resp B/P (MAP) Pulse Ox O2 Delivery O2 Flow Rate FiO2 09/29/17 04:00 98.2 79 20 133/79 (97) 98 98.2 09/29/17 02:00 128/76 09/29/17 00:00 98.2 86 20 138/80 (99) 96 98.2 09/28/17 20:00 98.4 83 20 139/91 (107) 98 98.4 09/28/17 17:31 139/94 09/28/17 15:57 97.9 87 20 139/94 (109) 99 97.9 09/28/17 11:59 97.7 81 20 149/81 (103) 99 97.7 09/28/17 09:09 141/92 09/28/17 09:06 85 141/92 09/28/17 07:55 98.2 85 20 141/92 (108) 97 98.2 Intake and Output 09/28/17 09/29/17 19:00 07:00 Intake Total 1250 ml Output Total 1800 ml 2100 ml Balance -550 ml -2100 ml Intake Oral 1250 ml Output Urine Total 1800 ml 2100 ml # Bowel Movements 4 Laboratory Tests 09/29/17 06:00: White Blood Count [Pending], Red Blood Count [Pending], Hemoglobin [Pending], Hematocrit [Pending], Mean Corpuscular Volume [Pending], Mean Corpuscular Hemoglobin [Pending], Mean Corpuscular Hemoglobin Concent [Pending], Red Cell Distribution Width [Pending], Platelet Count [Pending], Mean Platelet Volume [ Pending], Neutrophils (%) (Auto) [Pending], Lymphocytes (%) (Auto) [Pending], Monocytes (%) (Auto) [Pending], Eosinophils (%) (Auto) [Pending], Basophils (%) (Auto) [Pending], Sodium Level [Pending], Potassium Level [Pending], Chloride Level [Pending], Carbon Dioxide Level [Pending], Blood Urea Nitrogen [Pending], Creatinine [Pending], Estimat Glomerular Filtration Rate [Pending], Glucose Level [Pending], Calcium Level [Pending], Total Bilirubin [Pending], Aspartate Amino Transf (AST/SGOT) [Pending], Alanine Aminotransferase (ALT/SGPT) [Pending] , Alkaline Phosphatase [Pending], C-Reactive Protein, Quantitative [Pending], Total Protein [Pending], Albumin [Pending], Globulin [Pending] Height (Feet): 5 Height (Inches): 5.00 Weight (Pounds): 149 General Appearance: alert EENT: normal ENT inspection Neck: supple Cardiovascular: normal rate Respiratory/Chest: decreased breath sounds Abdomen: normal bowel sounds, non tender, soft Extremities: non-tender Efrain Chavez MD Sep 29, 2017 07:17
[2017-09-29 07:22] LABS: HEMATOCRIT 26.8 % (42.0-52.0); HEMOGLOBIN 9.4 G/DL (14.2-18.0); MEAN CORPUSCULAR VOLUME 94 FL (80-99); PLATELET COUNT 677 K/UL (150-450); RED BLOOD COUNT 2.84 M/UL (4.70-6.10); RED CELL DISTRIBUTION WIDTH 12.8 % (11.6-14.8); WHITE BLOOD COUNT 19.8 K/UL (4.8-10.8)
[2017-09-29 07:50] LABS: ALANINE AMINOTRANSFERASE 22 U/L (12-78); ALBUMIN 3.2 G/DL (3.4-5.0); ALBUMIN/GLOBULIN RATIO 0.6 (1.0-2.7); ALKALINE PHOSPHATASE 99 U/L (46-116); ANION GAP 12 mmol/L (5-15); ASPARTATE AMINO TRANSFERASE 18 U/L (15-37); BILIRUBIN,TOTAL 0.5 MG/DL (0.2-1.0); BLOOD UREA NITROGEN 26 mg/dL (7-18); CALCIUM 9.5 MG/DL (8.5-10.1); CARBON DIOXIDE 25 MMOL/L (21-32); CHLORIDE 104 MMOL/L (98-107); CREATININE 1.4 MG/DL (0.55-1.30); POTASSIUM 4.7 MMOL/L (3.5-5.1); SODIUM 141 MMOL/L (136-145)
[2017-09-29 08:00] VITALS: BP 134/72
[2017-09-29] MEDS: Docusate 100mg cap ORAL SCH ×3 (08:27→17:39)
--- NOTE | 2017-09-29 11:40 | Neurology Progress Note ---
Interim History Interim History Interim History Mr. Stover feels relatively well. The left foot pain is better. X-Rays of the left foot are benign by report. He is alert and bright. The mind is clear. He denies any agitation. His energy level is close to normal. His memory is also close to normal. His appetite is better. He is generally stronger. He has not walked much today. He denies any new neurologic symptoms. He specifically denies any increased weakness on one side or the other, numbness on one side or the other, problems with speech, problems with language , or problems with vision. Review of Systems Neuro Review of Systems Benign. Objective Physical Exam Last Vital Signs Date Time Temp Pulse Resp B/P (MAP) Pulse Ox O2 Delivery O2 Flow Rate FiO2 09/29/17 10:52 140/82 09/29/17 08:32 92 09/29/17 08:00 98.2 21 95 98.2 09/21/17 21:00 Room Air Laboratory Tests Test 09/29/17 06:00 White Blood Count 19.8 K/UL (4.8-10.8) H Red Blood Count 2.84 M/UL (4.70-6.10) L Hemoglobin 9.4 G/DL (14.2-18.0) L Hematocrit 26.8 % (42.0-52.0) L Mean Corpuscular Volume 94 FL (80-99) Mean Corpuscular Hemoglobin 33.0 PG (27.0-31.0) H Mean Corpuscular Hemoglobin Concent 34.9 G/DL (32.0-36.0) Red Cell Distribution Width 12.8 % (11.6-14.8) Platelet Count 677 K/UL (150-450) H Mean Platelet Volume 5.8 FL (6.5-10.1) L Neutrophils (%) (Auto) % (45.0-75.0) Lymphocytes (%) (Auto) % (20.0-45.0) Monocytes (%) (Auto) % (1.0-10.0) Eosinophils (%) (Auto) % (0.0-3.0) Basophils (%) (Auto) % (0.0-2.0) Differential Total Cells Counted 100 Neutrophils % (Manual) 90 % (45-75) H Lymphocytes % (Manual) 5 % (20-45) L Monocytes % (Manual) 5 % (1-10) Eosinophils % (Manual) 0 % (0-3) Basophils % (Manual) 0 % (0-2) Band Neutrophils 0 % (0-8) Platelet Estimate Increased H Platelet Morphology Normal Hypochromasia 1+ Sodium Level 141 MMOL/L (136-145) Potassium Level 4.7 MMOL/L (3.5-5.1) Chloride Level 104 MMOL/L (98-107) Carbon Dioxide Level 25 MMOL/L (21-32) Anion Gap 12 mmol/L (5-15) Blood Urea Nitrogen 26 mg/dL (7-18) H Creatinine 1.4 MG/DL (0.55-1.30) H Estimat Glomerular Filtration Rate 56.4 mL/min (>60) Glucose Level 94 MG/DL (74-106) Calcium Level 9.5 MG/DL (8.5-10.1) Total Bilirubin 0.5 MG/DL (0.2-1.0) Aspartate Amino Transf (AST/SGOT) 18 U/L (15-37) Alanine Aminotransferase (ALT/SGPT) 22 U/L (12-78) Alkaline Phosphatase 99 U/L (46-116) C-Reactive Protein, Quantitative 1.8 mg/dL (0.00-0.90) H Total Protein 8.3 G/DL (6.4-8.2) H Albumin 3.2 G/DL (3.4-5.0) L Globulin 5.1 g/dL Albumin/Globulin Ratio 0.6 (1.0-2.7) L Neurologic Exam Objective PHYSICAL EXAMINATION: GENERAL: He is a well-developed, well-nourished, gentleman, lying in bed. HEAD: Normocephalic and atraumatic. EENT: Examination benign. NECK: No neck rigidity was observed. NEUROLOGIC EXAMINATION: MENTAL STATUS EXAMINATION: He was awake and alert. He was oriented to self, and [facility] and September 29, 2017. He was able to recall 3/3 words immediately, and could remember them in 1 and 3 minutes. He was able to remember presidents Trump through [employer]. His mathematical skills were good. His visuospatial function was good. SPEECH: He had no dysarthria. LANGUAGE: He had a mild anomia for low frequency words. CRANIAL NERVE EXAMINATION: II: The visual dinh were intact on confrontation testing. III, IV & : The external ocular movements were present. The pupils were 3 mm in diameter and reactive sluggishly to light. V: He had normal facial sensations and the temporales, masseters and pterygoids functioned well. VII: He had normal facial expressions and no facial asymmetry. VIII: He was able to hear well and had no nystagmus. IX: The palate moved symmetrically on phonation. X: He had no hoarseness of voice. XI: The sternocleidomastoids and trapezii functioned well. XII: The tongue was in the midline. MOTOR SYSTEM: The tone was normal in all four extremities. Examination of muscle mass revealed no focal wasting. Examination of power revealed G 5/5 power in all muscle groups except for G 0/5 in the right ankle dorsiflexors, toe extensors, ankle plantar flexors and toe flexors, G 5-/5 in the left ankle dorsiflexors and toe extensors, and G 4/5 in the iliopsoas muscle bilaterally. SENSORY EXAMINATION: He had altered sensations in the right peroneal distribution. He had mild tenderness with possibly neuropathic pain in the sole of his left foot. REFLEXES: Trace+ and bilaterally symmetrical at the biceps, triceps, brachioradialis, and knees, 0 at both ankles. The plantar responses were flexor bilaterally. COORDINATION: He performed well on finger to nose and heel to jolley testing. STANCE & GAIT: Could not be tested. Impression/Recommendations Diagnostic Impression 1. Mr. Enoch Stover is a 37-year-old, gentleman, of unknown handedness, who was found unconscious in a hotel room on 08/29/2017 after he had used multiple drugs. He was found to be possibly febrile, hypoglycemic, and breathing rapidly. Since then, he has been hospitalized and treated for sepsis. 2. He feels relatively well. The left foot pain is better. X-Rays of the left foot are benign by report. He is alert and bright. The mind is clear. He denies any agitation. His energy level is close to normal. His memory is also close to normal. His appetite is better. He is generally stronger. He has not walked much today. He denies any new neurologic symptoms. 3. On neurological examination, at this time, he is awake and alert. He is fully oriented. His memory has normalized. His speech is normal. He has a mild anomia. His cranial nerves are functioning normally. His motor function is relatively good, he however has mild proximal lower extremity weakness, and mild distal left lower extremity weakness with no movement in the right ankle and toes. His sensations are altered in the right peroneal distribution. In addition the middle of the left sole of the foot is tender and he complains of neuropathic pain however it is less severe today. His deep tendon reflexes are diminished but his plantar responses are flexor. He also does not demonstrate any definite focal or lateralizing neurological findings. 4. The CT scan of the brain performed on 08/29/2017 and repeated on 09/04/17 is benign for acute pathology. 5. Laboratory data obtained thus far revealed, on admission, his hemoglobin was elevated to 18.4, his WBC was normal at 8,500, but since then his WBCs have peaked to 17,200. His chemistry panel on admission revealed BUN elevated to 31 , creatinine elevated to 3.6, lactic acid elevated to 5.5, bilirubin elevated at 1.2, AST elevated at 478, ALT elevated to 159, CK elevated to greater than 10 ,000, troponin elevated at 1.01, BNP elevated to 2143. His urine toxicology screen was positive for opiates, amphetamines, cocaine, and marijuana. His INR was elevated at 1.2. His TSH is elevated at 4.72. The T3 is low but the T4 is normal. 6. The patient's history, neurological examination, laboratory data, and imaging studies are most compatible with an altered mental state due to a toxic metabolic encephalopathy. 7. The most likely etiology for the encephalopathy was the sepsis, possibly a period of hypoglycemia and ongoing multiple metabolic imbalances and the toxic imbalances. In addition the use of mind-altering drugs could have also been contributing. 8. His encephalopathy has improved markedly and continues to improve. 9. He has also developed bilateral mild proximal lower extremity weakness, and in addition severe right distal lower extremity weakness with severe right peroneal and tibial nerve dysfunction. His sensations are also altered in the right peroneal distribution. He is bothered by left foot pain for the last day or two. 10. Since 09/27/17 he has developed pain in the middle of the left sole of the foot and neuropathic pain when pressure is applied to the mid sole. Recommendations 1. Continue present management. 2. Continue aggressive treatment of the patient's infectious process. 3. Aggressive management of toxic/metabolic imbalances. 4. AFO for right foot drop. 5. PT/OT. 6. Observe closely. Chris Gomez M.D., M.S.P.H. CHRIS GOMEZ Sep 29, 2017 11:39
[2017-09-29 12:00] VITALS: BP 131/79
--- NOTE | 2017-09-29 14:52 | General Progress Note ---
Assessment/Plan Problem List: (1) Substance abuse ICD Codes: F19.10 - Other psychoactive substance abuse, uncomplicated SNOMED: 15229732 (2) Severe sepsis ICD Codes: A41.9 - Sepsis, unspecified organism; R65.20 - Severe sepsis without septic shock SNOMED: 88980249 (3) LUCRECIA (acute kidney injury) ICD Codes: N17.9 - Acute kidney failure, unspecified SNOMED: 21224905 Status: progressing Assessment/Plan sepsis afebrile abx per id no acute events abscess collection poly substance use azotemia Subjective ROS Limited/Unobtainable: Yes Allergies: Coded Allergies: NO KNOWN ALLERGIES (Verified Allergy, Unknown, 09/02/17) Objective Last 24 Hour Vital Signs Date Time Temp Pulse Resp B/P (MAP) Pulse Ox O2 Delivery O2 Flow Rate FiO2 09/29/17 12:00 98.6 95 22 131/79 (96) 99 98.6 09/29/17 10:52 140/82 09/29/17 08:32 92 09/29/17 08:26 105 134/72 09/29/17 08:00 98.2 105 21 134/72 (92) 95 98.2 09/29/17 04:00 98.2 79 20 133/79 (97) 98 98.2 09/29/17 02:00 128/76 09/29/17 00:00 98.2 86 20 138/80 (99) 96 98.2 09/28/17 20:00 98.4 83 20 139/91 (107) 98 98.4 09/28/17 17:31 139/94 09/28/17 15:57 97.9 87 20 139/94 (109) 99 97.9 Intake and Output 09/28/17 09/29/17 19:00 07:00 Intake Total 1250 ml Output Total 1800 ml 2100 ml Balance -550 ml -2100 ml Intake Oral 1250 ml Output Urine Total 1800 ml 2100 ml # Bowel Movements 4 Laboratory Tests 09/29/17 06:00: White Blood Count 19.8H, Red Blood Count 2.84L, Hemoglobin 9.4L, Hematocrit 26.8L, Mean Corpuscular Volume 94, Mean Corpuscular Hemoglobin 33.0H, Mean Corpuscular Hemoglobin Concent 34.9, Red Cell Distribution Width 12.8, Platelet Count 677H, Mean Platelet Volume 5.8L, Neutrophils (%) (Auto) , Lymphocytes (%) (Auto) , Monocytes (%) (Auto) , Eosinophils (%) (Auto) , Basophils (%) (Auto) , Differential Total Cells Counted 100, Neutrophils % (Manual) 90H, Lymphocytes % (Manual) 5L, Monocytes % (Manual) 5, Eosinophils % (Manual) 0, Basophils % ( Manual) 0, Band Neutrophils 0, Platelet Estimate IncreasedH, Platelet Morphology Normal, Hypochromasia 1+, Sodium Level 141, Potassium Level 4.7, Chloride Level 104, Carbon Dioxide Level 25, Anion Gap 12, Blood Urea Nitrogen 26H, Creatinine 1.4H, Estimat Glomerular Filtration Rate 56.4, Glucose Level 94 , Calcium Level 9.5, Total Bilirubin 0.5, Aspartate Amino Transf (AST/SGOT) 18, Alanine Aminotransferase (ALT/SGPT) 22, Alkaline Phosphatase 99, C-Reactive Protein, Quantitative 1.8H, Total Protein 8.3H, Albumin 3.2L, Globulin 5.1, Albumin/Globulin Ratio 0.6L Height (Feet): 5 Height (Inches): 5.00 Weight (Pounds): 149 Cardiovascular: regular rhythm Respiratory/Chest: lungs clear Abdomen: soft Mode Dutta MD Sep 29, 2017 14:52
[2017-09-29 16:00] VITALS: BP 140/89
[2017-09-29 20:00] VITALS: BP 140/98
[2017-09-29] MEDS: Tamsulosin 0.4mg cap ORAL SCH (21:10)
[2017-09-29] MEDS: Analgesic Balm 15gm TOPIC PRN (21:13)
--- NOTE | 2017-09-29 22:44 | Nephrology Progress Note ---
Assessment/Plan Assessment 1.LUCRECIA resolving off dialysis 2.Drug overdose 3.hypomagnesemia Plan replace electrolyte as need it monitoring renal function monitoring out put Subjective Constitutional: Reports: no symptoms HEENT: Reports: no symptoms Genitourinary: Reports: no symptoms Neurologic/Psychiatric: Reports: no symptoms Subjective no complaints Objective Objective Last 24 Hour Vital Signs Date Time Temp Pulse Resp B/P (MAP) Pulse Ox O2 Delivery O2 Flow Rate FiO2 09/29/17 22:12 98.9 09/29/17 21:13 99.4 09/29/17 20:00 99.4 88 20 140/98 (112) 98 99.4 09/29/17 17:49 144/86 09/29/17 16:00 98.2 86 23 140/89 (106) 97 98.2 09/29/17 12:00 98.6 95 22 131/79 (96) 99 98.6 09/29/17 10:52 140/82 09/29/17 08:32 92 09/29/17 08:26 105 134/72 09/29/17 08:00 98.2 105 21 134/72 (92) 95 98.2 09/29/17 04:00 98.2 79 20 133/79 (97) 98 98.2 09/29/17 02:00 128/76 09/29/17 00:00 98.2 86 20 138/80 (99) 96 98.2 Intake and Output 09/28/17 09/29/17 19:00 07:00 Intake Total 1250 ml Output Total 1800 ml 2100 ml Balance -550 ml -2100 ml Intake Oral 1250 ml Output Urine Total 1800 ml 2100 ml # Bowel Movements 4 Laboratory Tests 09/29/17 06:00: White Blood Count 19.8H, Red Blood Count 2.84L, Hemoglobin 9.4L, Hematocrit 26.8L, Mean Corpuscular Volume 94, Mean Corpuscular Hemoglobin 33.0H, Mean Corpuscular Hemoglobin Concent 34.9, Red Cell Distribution Width 12.8, Platelet Count 677H, Mean Platelet Volume 5.8L, Neutrophils (%) (Auto) , Lymphocytes (%) (Auto) , Monocytes (%) (Auto) , Eosinophils (%) (Auto) , Basophils (%) (Auto) , Differential Total Cells Counted 100, Neutrophils % (Manual) 90H, Lymphocytes % (Manual) 5L, Monocytes % (Manual) 5, Eosinophils % (Manual) 0, Basophils % ( Manual) 0, Band Neutrophils 0, Platelet Estimate IncreasedH, Platelet Morphology Normal, Hypochromasia 1+, Sodium Level 141, Potassium Level 4.7, Chloride Level 104, Carbon Dioxide Level 25, Anion Gap 12, Blood Urea Nitrogen 26H, Creatinine 1.4H, Estimat Glomerular Filtration Rate 56.4, Glucose Level 94 , Calcium Level 9.5, Total Bilirubin 0.5, Aspartate Amino Transf (AST/SGOT) 18, Alanine Aminotransferase (ALT/SGPT) 22, Alkaline Phosphatase 99, C-Reactive Protein, Quantitative 1.8H, Total Protein 8.3H, Albumin 3.2L, Globulin 5.1, Albumin/Globulin Ratio 0.6L Height (Feet): 5 Height (Inches): 5.00 Weight (Pounds): 149 Objective HEAD AND NECK: No JVP. No LAD. G-tube is in place. Head is atraumatic and normocephalic. LUNGS: He has decreased breathing sounds on the both sides. CARDIAC: Regular rate and rhythm. S1 and S2. No murmur. No rub. ABDOMEN: Soft. Bowel sounds positive. EXTREMITIES: No edema. No clubbing. No cyanosis. Aixa Veloz MD Sep 29, 2017 22:44
--- NOTE | 2017-09-29 23:48 | Cardiology Progress Note ---
Assessment/Plan Assessment/Plan 1. Elevated troponin I level likely due to myocarditis, sepsis, or due to shock. Continue conservative management. 2. Sinus tachycardia, resolved, continue hydration. 3. HTN, well controlled, continue amlodipine. Subjective Subjective No cardiac events noted. Not on tele bed. Objective Last 24 Hour Vital Signs Date Time Temp Pulse Resp B/P (MAP) Pulse Ox O2 Delivery O2 Flow Rate FiO2 09/29/17 22:12 98.9 09/29/17 21:13 99.4 09/29/17 20:00 99.4 88 20 140/98 (112) 98 99.4 09/29/17 17:49 144/86 09/29/17 16:00 98.2 86 23 140/89 (106) 97 98.2 09/29/17 12:00 98.6 95 22 131/79 (96) 99 98.6 09/29/17 10:52 140/82 09/29/17 08:32 92 09/29/17 08:26 105 134/72 09/29/17 08:00 98.2 105 21 134/72 (92) 95 98.2 09/29/17 04:00 98.2 79 20 133/79 (97) 98 98.2 09/29/17 02:00 128/76 09/29/17 00:00 98.2 86 20 138/80 (99) 96 98.2 Intake and Output 09/28/17 09/29/17 19:00 07:00 Intake Total 1250 ml Output Total 1800 ml 2100 ml Balance -550 ml -2100 ml Intake Oral 1250 ml Output Urine Total 1800 ml 2100 ml # Bowel Movements 4 2D Echo: KATELYN: Nl LV systolic & diastolic function, Mild MR, No vegetations, Nl RVSP Laboratory Tests Test 09/29/17 06:00 White Blood Count 19.8 K/UL (4.8-10.8) H Red Blood Count 2.84 M/UL (4.70-6.10) L Hemoglobin 9.4 G/DL (14.2-18.0) L Hematocrit 26.8 % (42.0-52.0) L Mean Corpuscular Volume 94 FL (80-99) Mean Corpuscular Hemoglobin 33.0 PG (27.0-31.0) H Mean Corpuscular Hemoglobin Concent 34.9 G/DL (32.0-36.0) Red Cell Distribution Width 12.8 % (11.6-14.8) Platelet Count 677 K/UL (150-450) H Mean Platelet Volume 5.8 FL (6.5-10.1) L Neutrophils (%) (Auto) % (45.0-75.0) Lymphocytes (%) (Auto) % (20.0-45.0) Monocytes (%) (Auto) % (1.0-10.0) Eosinophils (%) (Auto) % (0.0-3.0) Basophils (%) (Auto) % (0.0-2.0) Differential Total Cells Counted 100 Neutrophils % (Manual) 90 % (45-75) H Lymphocytes % (Manual) 5 % (20-45) L Monocytes % (Manual) 5 % (1-10) Eosinophils % (Manual) 0 % (0-3) Basophils % (Manual) 0 % (0-2) Band Neutrophils 0 % (0-8) Platelet Estimate Increased H Platelet Morphology Normal Hypochromasia 1+ Sodium Level 141 MMOL/L (136-145) Potassium Level 4.7 MMOL/L (3.5-5.1) Chloride Level 104 MMOL/L (98-107) Carbon Dioxide Level 25 MMOL/L (21-32) Anion Gap 12 mmol/L (5-15) Blood Urea Nitrogen 26 mg/dL (7-18) H Creatinine 1.4 MG/DL (0.55-1.30) H Estimat Glomerular Filtration Rate 56.4 mL/min (>60) Glucose Level 94 MG/DL (74-106) Calcium Level 9.5 MG/DL (8.5-10.1) Total Bilirubin 0.5 MG/DL (0.2-1.0) Aspartate Amino Transf (AST/SGOT) 18 U/L (15-37) Alanine Aminotransferase (ALT/SGPT) 22 U/L (12-78) Alkaline Phosphatase 99 U/L (46-116) C-Reactive Protein, Quantitative 1.8 mg/dL (0.00-0.90) H Total Protein 8.3 G/DL (6.4-8.2) H Albumin 3.2 G/DL (3.4-5.0) L Globulin 5.1 g/dL Albumin/Globulin Ratio 0.6 (1.0-2.7) L Microbiology Date/Time Source Procedure Growth Status 09/27/17 18:40 Blood Blood Culture - Preliminary NO GROWTH AFTER 24 HOURS Resulted 09/27/17 18:35 Blood Blood Culture - Preliminary NO GROWTH AFTER 24 HOURS Resulted Objective HEENT: Atraumatic and normocephalic. Pupils are equal, round, and reactive to light and accommodation. NECK: JVP cannot be assessed. CVS: Normal S1, S2. Cannot appreciate any murmurs, gallops, or rubs. LUNGS: Clear to auscultation bilaterally. ABDOMEN: Soft, nontender, and nondistended. No hepatosplenomegaly. Positive bowel sounds. EXTREMITIES: No evidence of edema, clubbing, or cyanosis. Right lower extremity with decrease in both motor and sensory function. Jorge Mcdonough MD Sep 29, 2017 23:48
[2017-09-30] VITALS: BP 145/80
[2017-09-30 04:00] VITALS: BP 138/94
[2017-09-30] MEDS: Aluminum Hydroxide Gel Susp 15ml ORAL SCH ×3 (06:22→23:12)
[2017-09-30 08:08] VITALS: BP 135/90
[2017-09-30] MEDS: Docusate 100mg cap ORAL SCH ×3 (08:24→17:02)
--- NOTE | 2017-09-30 10:20 | GI Progress Note ---
Assessment/Plan Problems: (1) Severe sepsis ICD Codes: A41.9 - Sepsis, unspecified organism; R65.20 - Severe sepsis without septic shock SNOMED: 42505244 (2) Rhabdomyolysis ICD Codes: M62.82 - Rhabdomyolysis SNOMED: 666324321 Qualifiers: Qualified Codes: T79.6XXA - Traumatic ischemia of muscle, initial encounter (3) Aspiration pneumonia ICD Codes: J69.0 - Pneumonitis due to inhalation of food and vomit SNOMED: 432449641 Qualifiers: Qualified Codes: J69.0 - Pneumonitis due to inhalation of food and vomit (4) Substance abuse ICD Codes: F19.10 - Other psychoactive substance abuse, uncomplicated SNOMED: 25472226 (5) Transaminitis ICD Codes: R74.0 - Nonspecific elevation of levels of transaminase and lactic acid dehydrogenase [LDH] SNOMED: 747397565, 363296563 Status: stable Status Narrative Discussed with Dr. Chavez. Assessment/Plan Hep A immunity Hep C positive transaminitis >> resolved cdiff negative stool culture >> gram negative bacillus elevated lipase >> now normal OB stool negative x2 supportive care prn transfusions renal diet abx ppi fu labs outpatient Hep C tx The patient was seen and examined at bedside and all new and available data was reviewed in the patients chart. I agree with the above findings, impression and plan. (Patient seen earlier today. Signature stamp does not reflect patient encounter time.). - Efrain Chavez MD Subjective Gastrointestinal/Abdominal: Reports: no symptoms Objective Last 24 Hour Vital Signs Date Time Temp Pulse Resp B/P (MAP) Pulse Ox O2 Delivery O2 Flow Rate FiO2 09/30/17 08:22 96 135/90 09/30/17 08:08 98.2 96 18 135/90 (105) 97 98.2 09/30/17 04:00 99.1 89 20 138/94 (109) 94 99.1 09/30/17 00:00 97.6 88 20 145/80 (101) 97 97.6 09/29/17 22:12 98.9 09/29/17 21:13 99.4 09/29/17 20:00 99.4 88 20 140/98 (112) 98 99.4 09/29/17 17:49 144/86 09/29/17 16:00 98.2 86 23 140/89 (106) 97 98.2 09/29/17 12:00 98.6 95 22 131/79 (96) 99 98.6 09/29/17 10:52 140/82 Intake and Output 09/29/17 09/30/17 18:59 06:59 Intake Total 960 ml Output Total 850 ml Balance 110 ml Intake Oral 960 ml Output Urine Total 850 ml # Voids 4 4 # Bowel Movements 1 Height (Feet): 5 Height (Inches): 5.00 Weight (Pounds): 156 General Appearance: WD/WN, no apparent distress, alert Cardiovascular: normal rate Respiratory/Chest: normal breath sounds, no respiratory distress Abdominal Exam: normal bowel sounds, non tender, soft Extremities: normal range of motion, non-tender Carlos Lopez NP Sep 30, 2017 10:20
[2017-09-30 12:20] VITALS: BP 139/97
--- NOTE | 2017-09-30 13:02 | Infectious Diseases Prog Note ---
Assessment/Plan Assessment/Plan Assessment/Plan Leukocytosis,persistent No source found - Pancreatitis ?, R gluteal hematoma vs liver abscess; increased now -Bcx 09/27 NTD CXR: Increased pulmonary markings suggestive of congestion. Otherwise, no acute cardiopulmonary disease. -u/a wbc 5-10, nit neg, leuk +1; cx neg -Bcx NTD (09/05 abd 09/07) -2d Echo (limited but no vegetations seen) - No Veg on KATELYN 09/10/17 - Tagged WBCs no focal uptake - MRI pelvis 09/11/17 : Diffuse symmetric edema of the bilateral buttock musculature , ? Myositis Discrete 3 x 3 x 7.3 cm fluid collection in the lateral left buttock musculature 09/13 SP No purulent material aspirated. Only small amount of blood aspirated Cx : Negative Blood Cx 09/17/17 - Neg Urine Cx 09/18/17 - Low counts MDR ABC (colonizers) Fever:; resolving- source ? Rhabdo vs pancreatitis, R gluteal hemotoma - CT scan 09/19/17 - Interim development of what is probably a right buttock hematoma, measuring 6 x 3.5 by at least 11 cm, Worsening anasarca, Mild pulmonary groundglass opacity, likely represents pulmonary edema, 12 mm focus of low attenuation within the dome of the right hepatic lobe. Complex cyst , early hepatic abscess, less likely neoplasm given patient's age. Consider further evaluation with sonography to see if this is sonographically visible Diverticulosis. No evidence of diverticulitis -Cdiff neg -v/duplex no DVT -HIV ab sc and VL neg, RPR/FTA, GC/CL neg Aspiration PNA , s/p Rx -CXR 09/04 : Interim development of hazy interstitial and airspace disease in the right lung. This may to some extent be an artifact of less optimal inspiration, however. Interim extubation -sp cx normal ann; repeat sp cx MSSA -legionella ag urine neg Sp sepsis - Hep C +; VL ND -ABD US: Gallbladder sludge. Negative for gallstones or dilated ducts. Equivocal increased hepatic echogenicity, if real could indicate hepatocellular disease such as fatty change. Borderline hepatomegaly. Mildly increased renal echogenicity, could indicate medical renal disease. Correlate with renal function tests. Left pleural effusion -Hep A and B immune Drug overdose -UDS + opiates, amphetamines, THC, cocaine -+empty heroin needles (found on hotel room) Multiorgan failure -LUCRECIA, - on HD; now off HD, permacath removed 09/25 -Transaminitis, (shock liver); improving -VDRF (airway protection)- extubated 09/03 Lactic acidosis; resolved Rhabdomyolisis; improving Pancreatitis- drug induced -neg alcohol levels Encephalopathy - improved -CT head 09/04: Unusual scalp contusion, new since prior study 08/29/2017. No evidence of underlying calvarial trauma. Negative for acute intracranial bleed or mass effect Plan: Continue to monitor off abx unless increased fever, WBC 09/25 SP Dapto d#10, Merrem d#10, Micafungin #6 - 09/14/17 - SP IV Micafungin # 7 ( Emperic coverage of fungemia ) -09/14/17 - S/P IV Vanco and Zosyn # 9 -09/04 SP IV Azithromycin #3 -09/03 SP Zosyn #6 -May need repeat CT abd/p or MRI w/ if persistent fevers and leukocytosis - Monitor CBC/CMP, temperatures - aspiration precautions - Monitor CK - Neuro,cardio, renal, GI f/u - Consider liver abscess if leukocytosis does not resolve. -f/u repeat Bcx x2 Subjective Allergies: Coded Allergies: NO KNOWN ALLERGIES (Verified Allergy, Unknown, 09/02/17) Subjective afebrile BCx NTD wbc increased Objective Vital Signs Last 24 Hour Vital Signs Date Time Temp Pulse Resp B/P (MAP) Pulse Ox O2 Delivery O2 Flow Rate FiO2 09/30/17 12:20 97.2 95 18 139/97 (111) 98 97.2 09/30/17 12:06 139/97 09/30/17 08:22 96 135/90 09/30/17 08:08 98.2 96 18 135/90 (105) 97 98.2 09/30/17 04:00 99.1 89 20 138/94 (109) 94 99.1 09/30/17 00:00 97.6 88 20 145/80 (101) 97 97.6 09/29/17 22:12 98.9 09/29/17 21:13 99.4 09/29/17 20:00 99.4 88 20 140/98 (112) 98 99.4 09/29/17 17:49 144/86 09/29/17 16:00 98.2 86 23 140/89 (106) 97 98.2 Height (Feet): 5 Height (Inches): 5.00 Weight (Pounds): 156 Objective General: intubated, restless HEENT: ETT in place Heart: RRR, no murmurs Lungs: CTA x2 ABD: S+D, ND, BS+ Extremity no edema or cellulitis Microbiology Date/Time Source Procedure Growth Status 09/27/17 18:40 Blood Blood Culture - Preliminary NO GROWTH AFTER 48 HOURS Resulted 09/27/17 18:35 Blood Blood Culture - Preliminary NO GROWTH AFTER 48 HOURS Resulted Current Medications Medications (Trade) Dose Ordered Sig/Krystyna Route PRN Reason Start Time Stop Time Status Last Admin Dose Admin Acetaminophen (Tylenol) 650 mg Q4H PRN ORAL Fever (temp>100.5F) 09/05/17 18:30 10/05/17 18:29 09/29/17 21:13 Aluminum Hydroxide (Amphojel) 1,920 mg Q8H ORAL 09/18/17 15:00 10/18/17 14:59 09/30/17 06:22 Amlodipine Besylate (Norvasc) 2.5 mg DAILY ORAL 09/23/17 09:00 10/23/17 08:59 09/30/17 08:22 Clonidine HCl (Catapres Tab) 0.1 mg Q8H ORAL 09/17/17 18:00 10/10/17 03:59 09/30/17 12:06 Dextrose (Dextrose 50%) 25 ml STAT PRN IV Hypoglycemia 09/05/17 18:30 10/05/17 18:29 Dextrose (Dextrose 50%) 50 ml STAT PRN IV Hypoglycemia 09/05/17 18:30 10/05/17 18:29 Docusate Sodium (Colace) 100 mg TID ORAL 09/17/17 13:00 10/17/17 12:59 09/25/17 17:34 Epoetin Joel (Procrit (for non ESRD use)) 3,000 units MON-WED-FRI SUBQ 09/23/17 21:00 10/23/17 20:59 09/27/17 22:00 Menthol/Methyl Salicylate (Bengay) 1 applic Q6H PRN TOPIC For Pain 09/28/17 14:15 10/28/17 14:14 09/29/17 21:13 Mirtazapine (Remeron) 15 mg BEDTIME ORAL 09/05/17 21:00 10/04/17 20:59 09/29/17 21:10 Pantoprazole (Protonix) 40 mg Q12HR ORAL 09/18/17 14:00 10/18/17 13:59 09/30/17 08:22 Potassium Chloride (K-Dur) 40 meq TWICE A DAY GT 09/22/17 18:00 10/22/17 17:59 09/29/17 08:27 Quetiapine Fumarate (SEROquel) 50 mg DAILY ORAL 09/17/17 09:00 10/17/17 08:59 09/29/17 08:26 Quetiapine Fumarate (SEROquel) 50 mg Q4H PRN ORAL agitation 09/10/17 14:00 10/10/17 13:59 09/18/17 01:47 Quetiapine Fumarate (SEROquel) 50 mg QLUNCH ORAL 09/17/17 11:30 10/17/17 11:29 09/27/17 11:34 Quetiapine Fumarate (SEROquel) 100 mg BEDTIME ORAL 09/16/17 21:00 10/16/17 20:59 09/29/17 21:10 Sevelamer Carbonate (Renvela) 1,600 mg THREE TIMES A DAY ORAL 09/18/17 09:00 10/18/17 08:59 09/29/17 12:13 Tamsulosin HCl (Flomax) 0.4 mg BEDTIME ORAL 09/20/17 12:00 10/20/17 11:59 09/29/17 21:10 Krystal Romero M.D. Sep 30, 2017 13:02
[2017-09-30 15:23] VITALS: BP 134/80
--- NOTE | 2017-09-30 18:31 | Neurology Progress Note ---
Interim History Interim History Interim History Mr. Stover feels well. He is on good spirits. The left foot pain is better. He is alert and bright. The mind is clear. He denies any agitation. His energy level is close to normal. His memory is also close to normal. His appetite is better. He is generally stronger. He has not walked much today. He denies any new neurologic symptoms. He specifically denies any increased weakness on one side or the other, numbness on one side or the other, problems with speech, problems with language , or problems with vision. Review of Systems Neuro Review of Systems Benign. Objective Physical Exam Last Vital Signs Date Time Temp Pulse Resp B/P (MAP) Pulse Ox O2 Delivery O2 Flow Rate FiO2 09/30/17 15:23 98.1 94 18 134/80 (98) 98 98.1 09/21/17 21:00 Room Air Neurologic Exam Objective PHYSICAL EXAMINATION: GENERAL: He is a well-developed, well-nourished, gentleman, lying in bed. HEAD: Normocephalic and atraumatic. EENT: Examination benign. NECK: No neck rigidity was observed. NEUROLOGIC EXAMINATION: MENTAL STATUS EXAMINATION: He was awake and alert. He was oriented to [facility], and [facility] and September 30, 2017. He was able to recall 3/3 words immediately, and could remember them in 1 and 3 minutes. He was able to remember presidents Trump through [employer]. His mathematical skills were good. His visuospatial function was good. SPEECH: He had no dysarthria. LANGUAGE: He had a mild anomia for low frequency words. CRANIAL NERVE EXAMINATION: II: The visual dinh were intact on confrontation testing. III, IV & : The external ocular movements were present. The pupils were 3 mm in diameter and reactive sluggishly to light. V: He had normal facial sensations and the temporales, masseters and pterygoids functioned well. VII: He had normal facial expressions and no facial asymmetry. VIII: He was able to hear well and had no nystagmus. IX: The palate moved symmetrically on phonation. X: He had no hoarseness of voice. XI: The sternocleidomastoids and trapezii functioned well. XII: The tongue was in the midline. MOTOR SYSTEM: The tone was normal in all four extremities. Examination of muscle mass revealed no focal wasting. Examination of power revealed G 5/5 power in all muscle groups except for G 0/5 in the right ankle dorsiflexors, toe extensors, ankle plantar flexors and toe flexors, G 5-/5 in the left ankle dorsiflexors and toe extensors, and G 4/5 in the iliopsoas muscle bilaterally. SENSORY EXAMINATION: He had altered sensations in the right peroneal distribution. He had mild tenderness with possibly neuropathic pain in the sole of his left foot. REFLEXES: Trace+ and bilaterally symmetrical at the biceps, triceps, brachioradialis, and knees, 0 at both ankles. The plantar responses were flexor bilaterally. COORDINATION: He performed well on finger to nose and heel to jolley testing. STANCE & GAIT: Could not be tested. Impression/Recommendations Diagnostic Impression 1. Mr. Enoch Stover is a 37-year-old, gentleman, of unknown handedness, who was found unconscious in a hotel room on 08/29/2017 after he had used multiple drugs. He was found to be possibly febrile, hypoglycemic, and breathing rapidly. Since then, he has been hospitalized and treated for sepsis. 2. He feels well. He is on good spirits. The left foot pain is better. He is alert and bright. The mind is clear. He denies any agitation. His energy level is close to normal. His memory is also close to normal. His appetite is better. He is generally stronger. He has not walked much today. He denies any new neurologic symptoms. 3. On neurological examination, at this time, he is awake and alert. He is fully oriented. His memory has normalized. His speech is normal. He has a mild anomia. His cranial nerves are functioning normally. His motor function is relatively good, he however has mild proximal lower extremity weakness, and mild distal left lower extremity weakness with no movement in the right ankle and toes. His sensations are altered in the right peroneal distribution. In addition the middle of the left sole of the foot is tender and he complains of neuropathic pain however it is less severe today. His deep tendon reflexes are diminished but his plantar responses are flexor. He also does not demonstrate any definite focal or lateralizing neurological findings. 4. The CT scan of the brain performed on 08/29/2017 and repeated on 09/04/17 is benign for acute pathology. 5. Laboratory data obtained thus far revealed, on admission, his hemoglobin was elevated to 18.4, his WBC was normal at 8,500, but since then his WBCs have peaked to 17,200. His chemistry panel on admission revealed BUN elevated to 31 , creatinine elevated to 3.6, lactic acid elevated to 5.5, bilirubin elevated at 1.2, AST elevated at 478, ALT elevated to 159, CK elevated to greater than 10 ,000, troponin elevated at 1.01, BNP elevated to 2143. His urine toxicology screen was positive for opiates, amphetamines, cocaine, and marijuana. His INR was elevated at 1.2. His TSH is elevated at 4.72. The T3 is low but the T4 is normal. 6. The patient's history, neurological examination, laboratory data, and imaging studies are most compatible with an altered mental state due to a toxic metabolic encephalopathy. 7. The most likely etiology for the encephalopathy was the sepsis, possibly a period of hypoglycemia and ongoing multiple metabolic imbalances and the toxic imbalances. In addition the use of mind-altering drugs could have also been contributing. 8. His encephalopathy has improved markedly and continues to improve. 9. He has also developed bilateral mild proximal lower extremity weakness, and in addition severe right distal lower extremity weakness with severe right peroneal and tibial nerve dysfunction. His sensations are also altered in the right peroneal distribution. He is bothered by left foot pain for the last day or two. 10. Since 09/27/17 he has developed pain in the middle of the left sole of the foot and neuropathic pain when pressure is applied to the mid sole. This pain is better. Recommendations 1. Continue present management. 2. Continue aggressive treatment of the patient's infectious process. 3. Aggressive management of toxic/metabolic imbalances. 4. AFO for right foot drop. 5. PT/OT. 6. Observe closely. Chris Gomez M.D., M.S.P.H. CHRIS GOMEZ Sep 30, 2017 18:31
[2017-09-30 20:00] VITALS: BP 124/80
[2017-09-30] MEDS: Epogen (for non ESRD use) SUBQ SCH (21:38)
[2017-09-30] MEDS: Tamsulosin 0.4mg cap ORAL SCH (21:39)
--- NOTE | 2017-09-30 22:25 | General Progress Note ---
Assessment/Plan Problem List: (1) Substance abuse ICD Codes: F19.10 - Other psychoactive substance abuse, uncomplicated SNOMED: 06902840 (2) Severe sepsis ICD Codes: A41.9 - Sepsis, unspecified organism; R65.20 - Severe sepsis without septic shock SNOMED: 58280783 (3) LUCRECIA (acute kidney injury) ICD Codes: N17.9 - Acute kidney failure, unspecified SNOMED: 80751666 Status: stable Assessment/Plan sepsis abx per id no acute events abscess collection poly substance chronic pain Subjective ROS Limited/Unobtainable: Yes Allergies: Coded Allergies: NO KNOWN ALLERGIES (Verified Allergy, Unknown, 09/02/17) Objective Last 24 Hour Vital Signs Date Time Temp Pulse Resp B/P (MAP) Pulse Ox O2 Delivery O2 Flow Rate FiO2 09/30/17 15:23 98.1 94 18 134/80 (98) 98 98.1 09/30/17 12:20 97.2 95 18 139/97 (111) 98 97.2 09/30/17 12:06 139/97 09/30/17 08:22 96 135/90 09/30/17 08:08 98.2 96 18 135/90 (105) 97 98.2 09/30/17 04:00 99.1 89 20 138/94 (109) 94 99.1 09/30/17 00:00 97.6 88 20 145/80 (101) 97 97.6 Intake and Output 09/29/17 09/30/17 19:00 07:00 Intake Total 960 ml Output Total 850 ml Balance 110 ml Intake Oral 960 ml Output Urine Total 850 ml # Voids 4 4 # Bowel Movements 1 Height (Feet): 5 Height (Inches): 5.00 Weight (Pounds): 156 Mode Dutta MD Sep 30, 2017 22:25
--- NOTE | 2017-09-30 23:52 | Cardiology Progress Note ---
Assessment/Plan Assessment/Plan 1. Elevated troponin I level likely due to myocarditis, sepsis, or due to shock. Continue conservative management. 2. Sinus tachycardia, resolved, continue hydration. 3. HTN, well controlled, continue amlodipine. Subjective Subjective No cardiac events noted. Not on telemetry bed. Objective Last 24 Hour Vital Signs Date Time Temp Pulse Resp B/P (MAP) Pulse Ox O2 Delivery O2 Flow Rate FiO2 09/30/17 20:00 99.2 87 20 124/80 (95) 97 99.2 09/30/17 15:23 98.1 94 18 134/80 (98) 98 98.1 09/30/17 12:20 97.2 95 18 139/97 (111) 98 97.2 09/30/17 12:06 139/97 09/30/17 08:22 96 135/90 09/30/17 08:08 98.2 96 18 135/90 (105) 97 98.2 09/30/17 04:00 99.1 89 20 138/94 (109) 94 99.1 09/30/17 00:00 97.6 88 20 145/80 (101) 97 97.6 Intake and Output 09/29/17 09/30/17 19:00 07:00 Intake Total 960 ml Output Total 850 ml Balance 110 ml Intake Oral 960 ml Output Urine Total 850 ml # Voids 4 4 # Bowel Movements 1 2D Echo: KATELYN: Nl LV systolic & diastolic function, Mild MR, No vegetations, Nl RVSP Objective HEENT: Atraumatic and normocephalic. Pupils are equal, round, and reactive to light and accommodation. NECK: JVP cannot be assessed. CVS: Normal S1, S2. tachycardic, do not appreciate any murmurs, gallops, or rubs. LUNGS: Clear to auscultation bilaterally. ABDOMEN: Soft, nontender, and nondistended. No hepatosplenomegaly. Positive bowel sounds. EXTREMITIES: No evidence of edema, clubbing, or cyanosis. Right lower extremity with decrease in both motor and sensory function. Jorge Mcdonough MD Sep 30, 2017 23:52
[2017-10-01] VITALS: BP 138/79
[2017-10-01 04:00] VITALS: BP 133/81
[2017-10-01] MEDS: Aluminum Hydroxide Gel Susp 15ml ORAL SCH ×3 (07:55→23:56)
[2017-10-01 08:00] VITALS: BP 145/81
[2017-10-01 08:02] LABS: EOSINOPHILS % (AUTO) 1.1 % (0.0-3.0); HEMATOCRIT 29.9 % (42.0-52.0); HEMOGLOBIN 9.9 G/DL (14.2-18.0); MEAN CORPUSCULAR VOLUME 94 FL (80-99); MONOCYTES % (AUTO) 7.3 % (1.0-10.0); NEUTROPHILS % (AUTO) 78.6 % (45.0-75.0); PLATELET COUNT 678 K/UL (150-450); RED BLOOD COUNT 3.17 M/UL (4.70-6.10); RED CELL DISTRIBUTION WIDTH 13.2 % (11.6-14.8); WHITE BLOOD COUNT 14.2 K/UL (4.8-10.8)
--- NOTE | 2017-10-01 08:07 | Podiatric Progress Note ---
Assessment/Plan Patient Enoch Stover is a 37 year old male who was admitted on Aug 29, 2017 at 14 :14 with Assessment/Plan A/ Non specific left foot pain possible 2/2 to disuse LUCRECIA - NSAIDS CI P/ Will order MRI of left foot to assess Patient requested cortisone injection but unclear where source of his pain is 2/ 2 diffuse history of pain Subjective Constitutional: no symptoms Allergies: Coded Allergies: NO KNOWN ALLERGIES (Verified Allergy, Unknown, 09/02/17) Subjective Patient complains of pain in left foot from midfoot to toes. He has been here for one month recovery from overdose and sepsis. He states that he began PT and was doing fine but after about 5 days started to feel the pain in the left foot. He is unable to bear weight on it. Admits to drop foot RLE 2/2 laying unconscious. Objective Exam Last 24 Hour Vital Signs Date Time Temp Pulse Resp B/P (MAP) Pulse Ox O2 Delivery O2 Flow Rate FiO2 10/01/17 04:00 98.5 84 18 133/81 (98) 97 98.5 10/01/17 02:00 138/79 10/01/17 00:00 98.9 95 19 138/79 (98) 96 98.9 09/30/17 20:00 99.2 87 20 124/80 (95) 97 99.2 09/30/17 15:23 98.1 94 18 134/80 (98) 98 98.1 09/30/17 12:20 97.2 95 18 139/97 (111) 98 97.2 09/30/17 12:06 139/97 09/30/17 08:22 96 135/90 09/30/17 08:08 98.2 96 18 135/90 (105) 97 98.2 Laboratory Tests Test 10/01/17 07:30 White Blood Count Pending Red Blood Count Pending Hemoglobin Pending Hematocrit Pending Mean Corpuscular Volume Pending Mean Corpuscular Hemoglobin Pending Mean Corpuscular Hemoglobin Concent Pending Red Cell Distribution Width Pending Platelet Count Pending Mean Platelet Volume Pending Neutrophils (%) (Auto) Pending Lymphocytes (%) (Auto) Pending Monocytes (%) (Auto) Pending Eosinophils (%) (Auto) Pending Basophils (%) (Auto) Pending Sodium Level Pending Potassium Level Pending Chloride Level Pending Carbon Dioxide Level Pending Blood Urea Nitrogen Pending Creatinine Pending Estimat Glomerular Filtration Rate Pending Glucose Level Pending Calcium Level Pending Microbiology Date/Time Source Procedure Growth Status 09/27/17 18:40 Blood Blood Culture - Preliminary NO GROWTH AFTER 72 HOURS Resulted 09/13/17 14:20 Drainage Fluid Gram Stain - Final Complete 09/13/17 14:20 Drainage Fluid Body Fluid Culture - Final NO GROWTH Complete 09/06/17 12:40 Sputum Induced Gram Stain - Final Complete 09/06/17 12:40 Sputum Induced Sputum Culture - Final NORMAL UPPER RESPIRATORY CLAUDIA PRESENT Complete 09/07/17 18:00 Stool Stool Culture - Final NO SALMONELLA,SHIGELLA,OR CAMPYLOBACT... Complete 09/20/17 16:20 Indwelling Cath Urine Culture - Final NO GROWTH AFTER 48 HOURS Complete 09/08/17 17:20 Head Gram Stain - Final Complete 09/08/17 17:20 Wound Culture - Final Staphylococcus Sp Coag Neg Complete General Appearance: WD/WN, no apparent distress Musculoskeletal Muscle strength grading: grade 4 - muscle strength of LLE in all quadrants. Has drop foot RLE Assistive devices: wheelchair Vascular Pulses: 2 dorsalis pedis (R), 2 dorsalis pedis (L), 2 posterior tibial (R), 2 posterior tibial (L) Edema: no edema noted foot (L), no edema noted foot (R), no edema noted ankle ( L), no edema noted ankle (R), no edema noted leg (L), no edema noted leg (R) Temperature: within normal limits Dermatological Dermatological Narrative no open wounds or signs of infection Ranulfo Marie DPM Oct 01, 2017 08:07
[2017-10-01 08:18] LABS: ANION GAP 13 mmol/L (5-15); BLOOD UREA NITROGEN 27 mg/dL (7-18); CALCIUM 9.6 MG/DL (8.5-10.1); CARBON DIOXIDE 22 MMOL/L (21-32); CHLORIDE 103 MMOL/L (98-107); CREATININE 1.2 MG/DL (0.55-1.30); POTASSIUM 4.3 MMOL/L (3.5-5.1); SODIUM 138 MMOL/L (136-145)
[2017-10-01] MEDS: Docusate 100mg cap ORAL SCH ×3 (08:21→17:45)
[2017-10-01 12:00] VITALS: BP 126/90
--- NOTE | 2017-10-01 12:15 | Infectious Diseases Prog Note ---
Assessment/Plan Assessment/Plan Assessment/Plan Leukocytosis,persistent ; now improving No source found - Pancreatitis ?, R gluteal hematoma vs liver abscess (doubt, no pain, clinically improved) -Bcx 09/27 NTD CXR: Increased pulmonary markings suggestive of congestion. Otherwise, no acute cardiopulmonary disease. -u/a wbc 5-10, nit neg, leuk +1; cx neg -Bcx NTD (09/05 abd 09/07) -2d Echo (limited but no vegetations seen) - No Veg on KATELYN 09/10/17 - Tagged WBCs no focal uptake - MRI pelvis 09/11/17 : Diffuse symmetric edema of the bilateral buttock musculature , ? Myositis Discrete 3 x 3 x 7.3 cm fluid collection in the lateral left buttock musculature 09/13 SP No purulent material aspirated. Only small amount of blood aspirated Cx : Negative Blood Cx 09/17/17 - Neg Urine Cx 09/18/17 - Low counts MDR ABC (colonizers) Fever:; resolving- source ? Rhabdo vs pancreatitis, R gluteal hemotoma - CT scan 09/19/17 - Interim development of what is probably a right buttock hematoma, measuring 6 x 3.5 by at least 11 cm, Worsening anasarca, Mild pulmonary groundglass opacity, likely represents pulmonary edema, 12 mm focus of low attenuation within the dome of the right hepatic lobe. Complex cyst , early hepatic abscess, less likely neoplasm given patient's age. Consider further evaluation with sonography to see if this is sonographically visible Diverticulosis. No evidence of diverticulitis -Cdiff neg -v/duplex no DVT -HIV ab sc and VL neg, RPR/FTA, GC/CL neg Aspiration PNA , s/p Rx -CXR 09/04 : Interim development of hazy interstitial and airspace disease in the right lung. This may to some extent be an artifact of less optimal inspiration, however. Interim extubation -sp cx normal ann; repeat sp cx MSSA -legionella ag urine neg Sp sepsis - Hep C +; VL ND -ABD US: Gallbladder sludge. Negative for gallstones or dilated ducts. Equivocal increased hepatic echogenicity, if real could indicate hepatocellular disease such as fatty change. Borderline hepatomegaly. Mildly increased renal echogenicity, could indicate medical renal disease. Correlate with renal function tests. Left pleural effusion -Hep A and B immune Drug overdose -UDS + opiates, amphetamines, THC, cocaine -+empty heroin needles (found on hotel room) Multiorgan failure -LUCRECIA, - on HD; now off HD, permacath removed 09/25 -Transaminitis, (shock liver); improving -VDRF (airway protection)- extubated 09/03 Lactic acidosis; resolved Rhabdomyolisis; improving Pancreatitis- drug induced -neg alcohol levels Encephalopathy - improved -CT head 09/04: Unusual scalp contusion, new since prior study 08/29/2017. No evidence of underlying calvarial trauma. Negative for acute intracranial bleed or mass effect Plan: Continue to monitor off abx unless increased fever, WBC 09/25 SP Dapto d#10, Merrem d#10, Micafungin #6 - 09/14/17 - SP IV Micafungin # 7 ( Emperic coverage of fungemia ) -09/14/17 - S/P IV Vanco and Zosyn # 9 -09/04 SP IV Azithromycin #3 -09/03 SP Zosyn #6 -May need repeat CT abd/p or MRI w/ if persistent fevers and leukocytosis - Monitor CBC/CMP, temperatures - aspiration precautions - Monitor CK - Neuro,cardio, renal, GI f/u - Consider liver abscess if leukocytosis does not resolve. -f/u repeat Bcx x2 Subjective Allergies: Coded Allergies: NO KNOWN ALLERGIES (Verified Allergy, Unknown, 09/02/17) Subjective afebrile BCx NTD wbc improved eval for podiatry; MRI foot ordered Objective Vital Signs Last 24 Hour Vital Signs Date Time Temp Pulse Resp B/P (MAP) Pulse Ox O2 Delivery O2 Flow Rate FiO2 10/01/17 08:23 98 148/79 10/01/17 08:00 97.7 97 19 145/81 (102) 100 97.7 10/01/17 04:00 98.5 84 18 133/81 (98) 97 98.5 10/01/17 02:00 138/79 10/01/17 00:00 98.9 95 19 138/79 (98) 96 98.9 09/30/17 20:00 99.2 87 20 124/80 (95) 97 99.2 09/30/17 15:23 98.1 94 18 134/80 (98) 98 98.1 09/30/17 12:20 97.2 95 18 139/97 (111) 98 97.2 Height (Feet): 5 Height (Inches): 5.00 Weight (Pounds): 156 Objective General: intubated, restless HEENT: ETT in place Heart: RRR, no murmurs Lungs: CTA x2 ABD: S+D, ND, BS+ Extremity no edema or cellulitis Laboratory Tests Test 10/01/17 07:30 White Blood Count 14.2 K/UL (4.8-10.8) H Red Blood Count 3.17 M/UL (4.70-6.10) L Hemoglobin 9.9 G/DL (14.2-18.0) L Hematocrit 29.9 % (42.0-52.0) L Mean Corpuscular Volume 94 FL (80-99) Mean Corpuscular Hemoglobin 31.3 PG (27.0-31.0) H Mean Corpuscular Hemoglobin Concent 33.1 G/DL (32.0-36.0) Red Cell Distribution Width 13.2 % (11.6-14.8) Platelet Count 678 K/UL (150-450) H Mean Platelet Volume 5.8 FL (6.5-10.1) L Neutrophils (%) (Auto) 78.6 % (45.0-75.0) H Lymphocytes (%) (Auto) 12.0 % (20.0-45.0) L Monocytes (%) (Auto) 7.3 % (1.0-10.0) Eosinophils (%) (Auto) 1.1 % (0.0-3.0) Basophils (%) (Auto) 1.0 % (0.0-2.0) Sodium Level 138 MMOL/L (136-145) Potassium Level 4.3 MMOL/L (3.5-5.1) Chloride Level 103 MMOL/L (98-107) Carbon Dioxide Level 22 MMOL/L (21-32) Anion Gap 13 mmol/L (5-15) Blood Urea Nitrogen 27 mg/dL (7-18) H Creatinine 1.2 MG/DL (0.55-1.30) Estimat Glomerular Filtration Rate > 60 mL/min (>60) Glucose Level 141 MG/DL (74-106) H Calcium Level 9.6 MG/DL (8.5-10.1) Current Medications Medications (Trade) Dose Ordered Sig/Krystyna Route PRN Reason Start Time Stop Time Status Last Admin Dose Admin Acetaminophen (Tylenol) 650 mg Q4H PRN ORAL Fever (temp>100.5F) 09/05/17 18:30 10/05/17 18:29 09/29/17 21:13 Aluminum Hydroxide (Amphojel) 1,920 mg Q8H ORAL 09/18/17 15:00 10/18/17 14:59 10/01/17 07:55 Amlodipine Besylate (Norvasc) 2.5 mg DAILY ORAL 09/23/17 09:00 10/23/17 08:59 10/01/17 08:23 Clonidine HCl (Catapres Tab) 0.1 mg Q8H ORAL 09/17/17 18:00 10/10/17 03:59 09/30/17 12:06 Dextrose (Dextrose 50%) 25 ml STAT PRN IV Hypoglycemia 09/05/17 18:30 10/05/17 18:29 Dextrose (Dextrose 50%) 50 ml STAT PRN IV Hypoglycemia 09/05/17 18:30 10/05/17 18:29 Docusate Sodium (Colace) 100 mg TID ORAL 09/17/17 13:00 10/17/17 12:59 09/25/17 17:34 Epoetin Joel (Procrit (for non ESRD use)) 3,000 units SAT-SAT-SAT SUBQ 09/23/17 21:00 10/23/17 20:59 09/30/17 21:38 Menthol/Methyl Salicylate (Bengay) 1 applic Q6H PRN TOPIC For Pain 09/28/17 14:15 10/28/17 14:14 09/29/17 21:13 Mirtazapine (Remeron) 15 mg BEDTIME ORAL 09/05/17 21:00 10/04/17 20:59 09/30/17 21:38 Pantoprazole (Protonix) 40 mg Q12HR ORAL 09/18/17 14:00 10/18/17 13:59 10/01/17 08:23 Potassium Chloride (K-Dur) 40 meq TWICE A DAY GT 09/22/17 18:00 10/22/17 17:59 09/29/17 08:27 Quetiapine Fumarate (SEROquel) 50 mg DAILY ORAL 09/17/17 09:00 10/17/17 08:59 10/01/17 08:22 Quetiapine Fumarate (SEROquel) 50 mg Q4H PRN ORAL agitation 09/10/17 14:00 10/10/17 13:59 09/18/17 01:47 Quetiapine Fumarate (SEROquel) 50 mg QLUNCH ORAL 09/17/17 11:30 10/17/17 11:29 09/27/17 11:34 Quetiapine Fumarate (SEROquel) 100 mg BEDTIME ORAL 09/16/17 21:00 10/16/17 20:59 09/30/17 21:38 Tamsulosin HCl (Flomax) 0.4 mg BEDTIME ORAL 09/20/17 12:00 10/20/17 11:59 09/30/17 21:39 Krystal Romero M.D. Oct 01, 2017 12:15
--- NOTE | 2017-10-01 13:13 | GI Progress Note ---
Assessment/Plan Problems: (1) Severe sepsis ICD Codes: A41.9 - Sepsis, unspecified organism; R65.20 - Severe sepsis without septic shock SNOMED: 37484466 (2) Rhabdomyolysis ICD Codes: M62.82 - Rhabdomyolysis SNOMED: 567714034 Qualifiers: Qualified Codes: T79.6XXA - Traumatic ischemia of muscle, initial encounter (3) Aspiration pneumonia ICD Codes: J69.0 - Pneumonitis due to inhalation of food and vomit SNOMED: 085983022 Qualifiers: Qualified Codes: J69.0 - Pneumonitis due to inhalation of food and vomit (4) Substance abuse ICD Codes: F19.10 - Other psychoactive substance abuse, uncomplicated SNOMED: 66261999 (5) Transaminitis ICD Codes: R74.0 - Nonspecific elevation of levels of transaminase and lactic acid dehydrogenase [LDH] SNOMED: 536151648, 426681120 Status: doing well, stable Status Narrative Discussed with Dr. Chavez. Assessment/Plan Hep A immunity Hep C positive, 2nd draw was negative transaminitis >> resolved cdiff negative stool culture >> gram negative bacillus elevated lipase >> now normal OB stool negative x2 supportive care prn transfusions change to regular diet, tolerating abx ppi fu labs dc planning The patient was seen and examined at bedside and all new and available data was reviewed in the patients chart. I agree with the above findings, impression and plan. (Patient seen earlier today. Signature stamp does not reflect patient encounter time.). - Efrain Chavez MD Subjective Gastrointestinal/Abdominal: Reports: no symptoms Objective Last 24 Hour Vital Signs Date Time Temp Pulse Resp B/P (MAP) Pulse Ox O2 Delivery O2 Flow Rate FiO2 10/01/17 12:00 97.5 105 20 126/90 (102) 97.5 10/01/17 09:00 Room Air 10/01/17 08:23 98 148/79 10/01/17 08:00 97.7 97 19 145/81 (102) 100 97.7 10/01/17 04:00 98.5 84 18 133/81 (98) 97 98.5 10/01/17 02:00 138/79 10/01/17 00:00 98.9 95 19 138/79 (98) 96 98.9 09/30/17 20:00 99.2 87 20 124/80 (95) 97 99.2 09/30/17 15:23 98.1 94 18 134/80 (98) 98 98.1 Intake and Output 09/30/17 10/01/17 19:00 07:00 Intake Total 360 ml Balance 360 ml Intake Oral 360 ml # Voids 3 4 Laboratory Tests Test 10/01/17 07:30 White Blood Count 14.2 K/UL (4.8-10.8) H Red Blood Count 3.17 M/UL (4.70-6.10) L Hemoglobin 9.9 G/DL (14.2-18.0) L Hematocrit 29.9 % (42.0-52.0) L Mean Corpuscular Volume 94 FL (80-99) Mean Corpuscular Hemoglobin 31.3 PG (27.0-31.0) H Mean Corpuscular Hemoglobin Concent 33.1 G/DL (32.0-36.0) Red Cell Distribution Width 13.2 % (11.6-14.8) Platelet Count 678 K/UL (150-450) H Mean Platelet Volume 5.8 FL (6.5-10.1) L Neutrophils (%) (Auto) 78.6 % (45.0-75.0) H Lymphocytes (%) (Auto) 12.0 % (20.0-45.0) L Monocytes (%) (Auto) 7.3 % (1.0-10.0) Eosinophils (%) (Auto) 1.1 % (0.0-3.0) Basophils (%) (Auto) 1.0 % (0.0-2.0) Sodium Level 138 MMOL/L (136-145) Potassium Level 4.3 MMOL/L (3.5-5.1) Chloride Level 103 MMOL/L (98-107) Carbon Dioxide Level 22 MMOL/L (21-32) Anion Gap 13 mmol/L (5-15) Blood Urea Nitrogen 27 mg/dL (7-18) H Creatinine 1.2 MG/DL (0.55-1.30) Estimat Glomerular Filtration Rate > 60 mL/min (>60) Glucose Level 141 MG/DL (74-106) H Calcium Level 9.6 MG/DL (8.5-10.1) Height (Feet): 5 Height (Inches): 5.00 Weight (Pounds): 156 General Appearance: WD/WN, no apparent distress, alert Cardiovascular: normal rate Respiratory/Chest: normal breath sounds, no respiratory distress Abdominal Exam: normal bowel sounds, non tender, soft Extremities: normal range of motion, non-tender Carlos Lopez NP Oct 01, 2017 13:13
--- NOTE | 2017-10-01 15:40 | Diagnostic Imaging Report ---
Indication: Abdominal distention Technique: Supine view of the abdomen Comparison: 09/04/2017 Findings: There is persistent although decreased contrast in the ascending colon. Bowel gas pattern is unremarkable. Previously demonstrated right groin central line is again demonstrated. Impression: Decreased colonic contrast, otherwise little change coordinator 3 days, findings as noted
[2017-10-01 16:00] VITALS: BP 148/86
--- NOTE | 2017-10-01 17:05 | Diagnostic Imaging Report ---
Indication: Chronic left forefoot pain Technique: Sagittal and coronal T1 fast spin echo, sagittal T2 fat saturated, axial proton density, axial proton density fat saturated, coronal fast spin echo STIR images of the left forefoot Comparison: Plain radiographs dated 09/28/2017 Findings: There is apparent increased STIR and T2 signal within the distal phalanges, but the corresponding T1 signal is normal, suspect that this is artifactual due to inhomogeneous fat saturation. No other definite marrow signal abnormality is evident. No focal drainable fluid collection demonstrated. Apparent edema of the deep compartments on the STIR images is likewise probably artifactual. A small cyst is seen in the base of the third metatarsal. The tendons are grossly intact. There is mild metatarsus adductus Impression: No acute or significant abnormality demonstrated Small cyst, probably degenerative, at the base of the third metatarsal.
--- NOTE | 2017-10-01 19:15 | Nephrology Progress Note ---
Assessment/Plan Assessment 1.LUCRECIA resolving off dialysis 2.Drug overdose 3.hypomagnesemia Plan replace electrolyte as need it monitoring renal function monitoring out put Subjective Constitutional: Reports: no symptoms HEENT: Reports: no symptoms Genitourinary: Reports: no symptoms Neurologic/Psychiatric: Reports: no symptoms Subjective no complaints Objective Objective Last 24 Hour Vital Signs Date Time Temp Pulse Resp B/P (MAP) Pulse Ox O2 Delivery O2 Flow Rate FiO2 10/01/17 17:45 148/86 10/01/17 16:00 98.2 98 18 148/86 (106) 96 98.2 10/01/17 12:00 97.5 105 20 126/90 (102) 97.5 10/01/17 09:00 Room Air 10/01/17 08:23 98 148/79 10/01/17 08:00 97.7 97 19 145/81 (102) 100 97.7 10/01/17 04:00 98.5 84 18 133/81 (98) 97 98.5 10/01/17 02:00 138/79 10/01/17 00:00 98.9 95 19 138/79 (98) 96 98.9 09/30/17 20:00 99.2 87 20 124/80 (95) 97 99.2 Intake and Output 09/30/17 10/01/17 19:00 07:00 Intake Total 360 ml Balance 360 ml Intake Oral 360 ml # Voids 3 4 Laboratory Tests 10/01/17 07:30: White Blood Count 14.2H, Red Blood Count 3.17L, Hemoglobin 9.9L, Hematocrit 29.9L, Mean Corpuscular Volume 94, Mean Corpuscular Hemoglobin 31.3H, Mean Corpuscular Hemoglobin Concent 33.1, Red Cell Distribution Width 13.2, Platelet Count 678H, Mean Platelet Volume 5.8L, Neutrophils (%) (Auto) 78.6H, Lymphocytes (%) (Auto) 12.0L, Monocytes (%) (Auto) 7.3, Eosinophils (%) (Auto) 1.1, Basophils (%) (Auto) 1.0, Sodium Level 138, Potassium Level 4.3, Chloride Level 103, Carbon Dioxide Level 22, Anion Gap 13, Blood Urea Nitrogen 27H, Creatinine 1.2, Estimat Glomerular Filtration Rate > 60, Glucose Level 141H, Calcium Level 9.6 Height (Feet): 5 Height (Inches): 5.00 Weight (Pounds): 156 Objective HEAD AND NECK: No JVP. No LAD. G-tube is in place. Head is atraumatic and normocephalic. LUNGS: He has decreased breathing sounds on the both sides. CARDIAC: Regular rate and rhythm. S1 and S2. No murmur. No rub. ABDOMEN: Soft. Bowel sounds positive. EXTREMITIES: No edema. No clubbing. No cyanosis. Aixa Veloz MD Oct 01, 2017 19:15
--- NOTE | 2017-10-01 19:52 | Neurology Progress Note ---
Interim History Interim History Interim History Mr. Stover feels better generally. He is in good spirits. The left foot pain is better - it is now localized to just anterior to his heel pad. In addition the neuropathic component is much less marked. He is alert and bright. The mind is clear. He denies any agitation. His energy level is close to normal. His memory is also close to normal. His appetite is better. He is generally stronger. He walked a little today but it was difficult. He denies any new neurologic symptoms. He specifically denies any increased weakness on one side or the other, numbness on one side or the other, problems with speech, problems with language , or problems with vision. Review of Systems Neuro Review of Systems Benign. Objective Physical Exam Last Vital Signs Date Time Temp Pulse Resp B/P (MAP) Pulse Ox O2 Delivery O2 Flow Rate FiO2 10/01/17 17:45 148/86 10/01/17 16:00 98.2 98 18 96 98.2 10/01/17 09:00 Room Air Laboratory Tests Test 10/01/17 07:30 White Blood Count 14.2 K/UL (4.8-10.8) H Red Blood Count 3.17 M/UL (4.70-6.10) L Hemoglobin 9.9 G/DL (14.2-18.0) L Hematocrit 29.9 % (42.0-52.0) L Mean Corpuscular Volume 94 FL (80-99) Mean Corpuscular Hemoglobin 31.3 PG (27.0-31.0) H Mean Corpuscular Hemoglobin Concent 33.1 G/DL (32.0-36.0) Red Cell Distribution Width 13.2 % (11.6-14.8) Platelet Count 678 K/UL (150-450) H Mean Platelet Volume 5.8 FL (6.5-10.1) L Neutrophils (%) (Auto) 78.6 % (45.0-75.0) H Lymphocytes (%) (Auto) 12.0 % (20.0-45.0) L Monocytes (%) (Auto) 7.3 % (1.0-10.0) Eosinophils (%) (Auto) 1.1 % (0.0-3.0) Basophils (%) (Auto) 1.0 % (0.0-2.0) Sodium Level 138 MMOL/L (136-145) Potassium Level 4.3 MMOL/L (3.5-5.1) Chloride Level 103 MMOL/L (98-107) Carbon Dioxide Level 22 MMOL/L (21-32) Anion Gap 13 mmol/L (5-15) Blood Urea Nitrogen 27 mg/dL (7-18) H Creatinine 1.2 MG/DL (0.55-1.30) Estimat Glomerular Filtration Rate > 60 mL/min (>60) Glucose Level 141 MG/DL (74-106) H Calcium Level 9.6 MG/DL (8.5-10.1) Neurologic Exam Objective PHYSICAL EXAMINATION: GENERAL: He is a well-developed, well-nourished, gentleman, lying in bed. HEAD: Normocephalic and atraumatic. EENT: Examination benign. NECK: No neck rigidity was observed. NEUROLOGIC EXAMINATION: MENTAL STATUS EXAMINATION: He was awake and alert. He was oriented to self, and [facility] and October 01, 2017. He was able to recall 3/3 words immediately, and could remember them in 1 and 3 minutes. He was able to remember presidents Trump through [employer]. His mathematical skills were good. His visuospatial function was good. SPEECH: He had no dysarthria. LANGUAGE: He had a mild anomia for low frequency words. CRANIAL NERVE EXAMINATION: II: The visual dinh were intact on confrontation testing. III, IV & : The external ocular movements were present. The pupils were 3 mm in diameter and reactive sluggishly to light. V: He had normal facial sensations and the temporales, masseters and pterygoids functioned well. VII: He had normal facial expressions and no facial asymmetry. VIII: He was able to hear well and had no nystagmus. IX: The palate moved symmetrically on phonation. X: He had no hoarseness of voice. XI: The sternocleidomastoids and trapezii functioned well. XII: The tongue was in the midline. MOTOR SYSTEM: The tone was normal in all four extremities. Examination of muscle mass revealed no focal wasting. Examination of power revealed G 5/5 power in all muscle groups except for G 0/5 in the right ankle dorsiflexors, toe extensors, ankle plantar flexors and toe flexors, G 5-/5 in the left ankle dorsiflexors and toe extensors, and G 4/5 in the iliopsoas muscle bilaterally. SENSORY EXAMINATION: He had altered sensations in the right peroneal distribution. In the left foot, he had moderate tenderness at the insertion of the plantar fascia. The neuropathic component to the pain was markedly diminished. REFLEXES: Trace+ and bilaterally symmetrical at the biceps, triceps, brachioradialis, and knees, 0 at both ankles. The plantar responses were flexor bilaterally. COORDINATION: He performed well on finger to nose and heel to jolley testing. STANCE & GAIT: Could not be tested. Impression/Recommendations Diagnostic Impression 1. Mr. Enoch Stover is a 37-year-old, gentleman, of unknown handedness, who was found unconscious in a hotel room on 08/29/2017 after he had used multiple drugs. He was found to be possibly febrile, hypoglycemic, and breathing rapidly. Since then, he has been hospitalized and treated for sepsis. 2. He feels better generally. He is in good spirits. The left foot pain is better - it is now localized to just anterior to his heel pad. In addition the neuropathic component is much less marked. He is alert and bright. The mind is clear. He denies any agitation. His energy level is close to normal. His memory is also close to normal. His appetite is better. He is generally stronger. He walked a little today but it was difficult. He denies any new neurologic symptoms. 3. On neurological examination, at this time, he is awake and alert. He is fully oriented. His memory has normalized. His speech is normal. He has a mild anomia. His cranial nerves are functioning normally. His motor function is relatively good, he however has mild proximal lower extremity weakness, and mild distal left lower extremity weakness with no movement in the right ankle and toes. His sensations are altered in the right peroneal distribution. In the left foot, he had moderate tenderness at the insertion of the plantar fascia. The neuropathic component to the pain was markedly diminished. His deep tendon reflexes are diminished but his plantar responses are flexor. He also does not demonstrate any definite focal or lateralizing neurological findings. 4. The CT scan of the brain performed on 08/29/2017 and repeated on 09/04/17 is benign for acute pathology. 5. Laboratory data obtained thus far revealed, on admission, his hemoglobin was elevated to 18.4, his WBC was normal at 8,500, but since then his WBCs have peaked to 17,200. His chemistry panel on admission revealed BUN elevated to 31 , creatinine elevated to 3.6, lactic acid elevated to 5.5, bilirubin elevated at 1.2, AST elevated at 478, ALT elevated to 159, CK elevated to greater than 10 ,000, troponin elevated at 1.01, BNP elevated to 2143. His urine toxicology screen was positive for opiates, amphetamines, cocaine, and marijuana. His INR was elevated at 1.2. His TSH is elevated at 4.72. The T3 is low but the T4 is normal. 6. The patient's history, neurological examination, laboratory data, and imaging studies are most compatible with an altered mental state due to a toxic metabolic encephalopathy. 7. The most likely etiology for the encephalopathy was the sepsis, possibly a period of hypoglycemia and ongoing multiple metabolic imbalances and the toxic imbalances. In addition the use of mind-altering drugs could have also been contributing. 8. His encephalopathy has improved markedly and continues to improve. 9. He has also developed bilateral mild proximal lower extremity weakness, and in addition severe right distal lower extremity weakness with severe right peroneal and tibial nerve dysfunction. His sensations are also altered in the right peroneal distribution. He is bothered by left foot pain for the last day or two. 10. Since 09/27/17 he has developed pain in the sole of the left foot. In the left foot, he has moderate tenderness at the insertion of the plantar fascia. The neuropathic component to the pain has markedly diminished. Recommendations 1. Continue present management. 2. Continue aggressive treatment of the patient's infectious process. 3. Aggressive management of toxic/metabolic imbalances. 4. AFO for right foot drop. 5. Consider having plantar fascia injected. 6. PT/OT. 7. Would refrain from use of anticonvulsant drugs to treat foot pain as it will slow down his brain recovery. 8. Observe closely. Chris Ricketts M.D., M.S.P.CHRIS GARDINER Oct 01, 2017 19:52
[2017-10-01 20:00] VITALS: BP 146/94
--- NOTE | 2017-10-01 20:09 | General Progress Note ---
Progress Note Progress Note Podiatry Follow up note from today MRI reviewed - no pathology noted Likely disuse atrophy and pain. Recommend continued PT to manage, possibly with therapeutic ultrasound and contrast baths Will follow peripherally Ranulfo Marie DPM Oct 01, 2017 20:09
[2017-10-01] MEDS: Tamsulosin 0.4mg cap ORAL SCH (21:43)
--- NOTE | 2017-10-01 21:59 | General Progress Note ---
Assessment/Plan Problem List: (1) Substance abuse ICD Codes: F19.10 - Other psychoactive substance abuse, uncomplicated SNOMED: 18967670 (2) Severe sepsis ICD Codes: A41.9 - Sepsis, unspecified organism; R65.20 - Severe sepsis without septic shock SNOMED: 65778903 (3) LUCRECIA (acute kidney injury) ICD Codes: N17.9 - Acute kidney failure, unspecified SNOMED: 40939140 Status: progressing Assessment/Plan leukocytosis is improving no fever antibiotic per id no acute events abscess collection poly substance chronic pain Subjective ROS Limited/Unobtainable: Yes Allergies: Coded Allergies: NO KNOWN ALLERGIES (Verified Allergy, Unknown, 09/02/17) Objective Last 24 Hour Vital Signs Date Time Temp Pulse Resp B/P (MAP) Pulse Ox O2 Delivery O2 Flow Rate FiO2 10/01/17 20:00 98.6 94 18 146/94 (111) 98 98.6 10/01/17 17:45 148/86 10/01/17 16:00 98.2 98 18 148/86 (106) 96 98.2 10/01/17 12:00 97.5 105 20 126/90 (102) 97.5 10/01/17 09:00 Room Air 10/01/17 08:23 98 148/79 10/01/17 08:00 97.7 97 19 145/81 (102) 100 97.7 10/01/17 04:00 98.5 84 18 133/81 (98) 97 98.5 10/01/17 02:00 138/79 10/01/17 00:00 98.9 95 19 138/79 (98) 96 98.9 Intake and Output 09/30/17 10/01/17 19:00 07:00 Intake Total 360 ml Balance 360 ml Intake Oral 360 ml # Voids 3 4 Laboratory Tests 10/01/17 07:30: White Blood Count 14.2H, Red Blood Count 3.17L, Hemoglobin 9.9L, Hematocrit 29.9L, Mean Corpuscular Volume 94, Mean Corpuscular Hemoglobin 31.3H, Mean Corpuscular Hemoglobin Concent 33.1, Red Cell Distribution Width 13.2, Platelet Count 678H, Mean Platelet Volume 5.8L, Neutrophils (%) (Auto) 78.6H, Lymphocytes (%) (Auto) 12.0L, Monocytes (%) (Auto) 7.3, Eosinophils (%) (Auto) 1.1, Basophils (%) (Auto) 1.0, Sodium Level 138, Potassium Level 4.3, Chloride Level 103, Carbon Dioxide Level 22, Anion Gap 13, Blood Urea Nitrogen 27H, Creatinine 1.2, Estimat Glomerular Filtration Rate > 60, Glucose Level 141H, Calcium Level 9.6 Height (Feet): 5 Height (Inches): 5.00 Weight (Pounds): 156 Mode Dutta MD Oct 01, 2017 21:59
--- NOTE | 2017-10-01 23:55 | Cardiology Progress Note ---
Assessment/Plan Assessment/Plan 1. Elevated troponin I level likely due to myocarditis, sepsis, or due to shock. Continue conservative management. 2. Sinus tachycardia, resolved, continue hydration. 3. HTN, well controlled, continue amlodipine. Subjective Subjective No cardiac events noted. Clinically the same. Objective Last 24 Hour Vital Signs Date Time Temp Pulse Resp B/P (MAP) Pulse Ox O2 Delivery O2 Flow Rate FiO2 10/01/17 21:00 Room Air 10/01/17 20:00 98.6 94 18 146/94 (111) 98 98.6 10/01/17 17:45 148/86 10/01/17 16:00 98.2 98 18 148/86 (106) 96 98.2 10/01/17 12:00 97.5 105 20 126/90 (102) 97.5 10/01/17 09:00 Room Air 10/01/17 08:23 98 148/79 10/01/17 08:00 97.7 97 19 145/81 (102) 100 97.7 10/01/17 04:00 98.5 84 18 133/81 (98) 97 98.5 10/01/17 02:00 138/79 10/01/17 00:00 98.9 95 19 138/79 (98) 96 98.9 Intake and Output 09/30/17 10/01/17 19:00 07:00 Intake Total 360 ml Balance 360 ml Intake Oral 360 ml # Voids 3 4 2D Echo: KATELYN: Nl LV systolic & diastolic function, Mild MR, No vegetations, Nl RVSP Laboratory Tests Test 10/01/17 07:30 White Blood Count 14.2 K/UL (4.8-10.8) H Red Blood Count 3.17 M/UL (4.70-6.10) L Hemoglobin 9.9 G/DL (14.2-18.0) L Hematocrit 29.9 % (42.0-52.0) L Mean Corpuscular Volume 94 FL (80-99) Mean Corpuscular Hemoglobin 31.3 PG (27.0-31.0) H Mean Corpuscular Hemoglobin Concent 33.1 G/DL (32.0-36.0) Red Cell Distribution Width 13.2 % (11.6-14.8) Platelet Count 678 K/UL (150-450) H Mean Platelet Volume 5.8 FL (6.5-10.1) L Neutrophils (%) (Auto) 78.6 % (45.0-75.0) H Lymphocytes (%) (Auto) 12.0 % (20.0-45.0) L Monocytes (%) (Auto) 7.3 % (1.0-10.0) Eosinophils (%) (Auto) 1.1 % (0.0-3.0) Basophils (%) (Auto) 1.0 % (0.0-2.0) Sodium Level 138 MMOL/L (136-145) Potassium Level 4.3 MMOL/L (3.5-5.1) Chloride Level 103 MMOL/L (98-107) Carbon Dioxide Level 22 MMOL/L (21-32) Anion Gap 13 mmol/L (5-15) Blood Urea Nitrogen 27 mg/dL (7-18) H Creatinine 1.2 MG/DL (0.55-1.30) Estimat Glomerular Filtration Rate > 60 mL/min (>60) Glucose Level 141 MG/DL (74-106) H Calcium Level 9.6 MG/DL (8.5-10.1) Objective HEENT: Atraumatic and normocephalic. Pupils are equal, round, and reactive to light and accommodation. NECK: JVP cannot be assessed. CVS: Normal S1, S2, regular rate and rhythm, no murmurs, gallops, or rubs. LUNGS: Clear to auscultation bilaterally. ABDOMEN: Soft, nontender, and nondistended. No hepatosplenomegaly. Positive bowel sounds. EXTREMITIES: No evidence of edema, clubbing, or cyanosis. Right lower extremity with decrease in both motor and sensory function. Jorge Mcdonough MD Oct 01, 2017 23:55
[2017-10-02 00:29] VITALS: BP 139/97
[2017-10-02 04:00] VITALS: BP 138/90
[2017-10-02] MEDS: Aluminum Hydroxide Gel Susp 15ml ORAL SCH ×2 (07:45→15:26)
[2017-10-02] MEDS: Docusate 100mg cap ORAL SCH ×3 (07:59→17:22)
[2017-10-02 08:00] VITALS: BP 124/84
[2017-10-02 12:00] VITALS: BP 131/90
--- NOTE | 2017-10-02 12:20 | GI Progress Note ---
Assessment/Plan Problems: (1) Severe sepsis ICD Codes: A41.9 - Sepsis, unspecified organism; R65.20 - Severe sepsis without septic shock SNOMED: 08810703 (2) Rhabdomyolysis ICD Codes: M62.82 - Rhabdomyolysis SNOMED: 113829611 Qualifiers: Qualified Codes: T79.6XXA - Traumatic ischemia of muscle, initial encounter (3) Aspiration pneumonia ICD Codes: J69.0 - Pneumonitis due to inhalation of food and vomit SNOMED: 436652739 Qualifiers: Qualified Codes: J69.0 - Pneumonitis due to inhalation of food and vomit (4) Substance abuse ICD Codes: F19.10 - Other psychoactive substance abuse, uncomplicated SNOMED: 72313185 (5) Transaminitis ICD Codes: R74.0 - Nonspecific elevation of levels of transaminase and lactic acid dehydrogenase [LDH] SNOMED: 454320429, 282752534 Status: doing well, stable Status Narrative Discussed with Dr. Chavez. Assessment/Plan Hep A immunity Hep C positive, 2nd draw was negative transaminitis >> resolved cdiff negative stool culture >> gram negative bacillus elevated lipase >> now normal OB stool negative x2 supportive care prn transfusions change to regular diet, tolerating abx ppi fu labs dc planning The patient was seen and examined at bedside and all new and available data was reviewed in the patients chart. I agree with the above findings, impression and plan. (Patient seen earlier today. Signature stamp does not reflect patient encounter time.). - Efrain Chavez MD Subjective Gastrointestinal/Abdominal: Reports: no symptoms Objective Last 24 Hour Vital Signs Date Time Temp Pulse Resp B/P (MAP) Pulse Ox O2 Delivery O2 Flow Rate FiO2 10/02/17 12:00 98.2 88 19 131/90 (104) 98.2 10/02/17 09:00 Room Air 10/02/17 08:00 97.7 109 20 124/84 (97) 97 97.7 10/02/17 04:00 97.7 96 19 138/90 (106) 98 97.7 10/02/17 02:12 139/97 10/02/17 00:29 98.2 88 16 139/97 (111) 98 98.2 10/01/17 21:00 Room Air 10/01/17 20:00 98.6 94 18 146/94 (111) 98 98.6 10/01/17 17:45 148/86 10/01/17 16:00 98.2 98 18 148/86 (106) 96 98.2 Intake and Output 10/01/17 10/02/17 18:59 06:59 Intake Total 520 ml 300 ml Output Total 400 ml Balance 520 ml -100 ml Intake Oral 520 ml 300 ml Output Urine Total 400 ml # Bowel Movements 1 1 Height (Feet): 5 Height (Inches): 5.00 Weight (Pounds): 148 General Appearance: WD/WN, no apparent distress, alert Cardiovascular: normal rate Respiratory/Chest: normal breath sounds, no respiratory distress Abdominal Exam: normal bowel sounds, non tender, soft Extremities: normal range of motion, non-tender Carlos Lopez NP Oct 02, 2017 12:20
--- NOTE | 2017-10-02 12:24 | General Progress Note ---
Progress Note Progress Note Surgery: doing well. no acute events. states feels much better. no n/v/f/c. pending placement no pain, no unhealed wounds, no abscess noted. leukocytosis improved cultures negative micro reviewed. buttock without wounds and resolving scalp wound healing okay to d/c from surgical standpoint stable for d/c wounds healing Vincent Schultz Oct 02, 2017 12:24
[2017-10-02 15:23] VITALS: BP 133/87
--- NOTE | 2017-10-02 15:55 | General Progress Note ---
Assessment/Plan Problem List: (1) Substance abuse ICD Codes: F19.10 - Other psychoactive substance abuse, uncomplicated SNOMED: 18983456 (2) Severe sepsis ICD Codes: A41.9 - Sepsis, unspecified organism; R65.20 - Severe sepsis without septic shock SNOMED: 76845325 (3) LUCRECIA (acute kidney injury) ICD Codes: N17.9 - Acute kidney failure, unspecified SNOMED: 59666192 Status: progressing Assessment/Plan foot pain consulted dr hamm for pain management afebrile abscess collection poly substance chronic pain Subjective ROS Limited/Unobtainable: Yes Allergies: Coded Allergies: NO KNOWN ALLERGIES (Verified Allergy, Unknown, 09/02/17) Objective Last 24 Hour Vital Signs Date Time Temp Pulse Resp B/P (MAP) Pulse Ox O2 Delivery O2 Flow Rate FiO2 10/02/17 15:23 98.5 97 20 133/87 (102) 98 98.5 10/02/17 12:00 98.2 88 19 131/90 (104) 98.2 10/02/17 09:00 Room Air 10/02/17 08:00 97.7 109 20 124/84 (97) 97 97.7 10/02/17 04:00 97.7 96 19 138/90 (106) 98 97.7 10/02/17 02:12 139/97 10/02/17 00:29 98.2 88 16 139/97 (111) 98 98.2 10/01/17 21:00 Room Air 10/01/17 20:00 98.6 94 18 146/94 (111) 98 98.6 10/01/17 17:45 148/86 10/01/17 16:00 98.2 98 18 148/86 (106) 96 98.2 Intake and Output 10/01/17 10/02/17 19:00 07:00 Intake Total 520 ml 300 ml Output Total 400 ml Balance 520 ml -100 ml Intake Oral 520 ml 300 ml Output Urine Total 400 ml # Bowel Movements 1 1 Height (Feet): 5 Height (Inches): 5.00 Weight (Pounds): 148 Neck: supple Cardiovascular: normal rate Respiratory/Chest: lungs clear Abdomen: soft Mode Dutta MD Oct 02, 2017 15:55
--- NOTE | 2017-10-02 16:35 | Infectious Diseases Prog Note ---
Assessment/Plan Assessment/Plan Assessment/Plan Leukocytosis,persistent ; now improving No source found - Pancreatitis ?, R gluteal hematoma vs liver abscess (doubt, no pain, clinically improved) -Bcx 09/27 NTD CXR: Increased pulmonary markings suggestive of congestion. Otherwise, no acute cardiopulmonary disease. -u/a wbc 5-10, nit neg, leuk +1; cx neg -Bcx NTD (09/05 abd 09/07) -2d Echo (limited but no vegetations seen) - No Veg on KATELYN 09/10/17 - Tagged WBCs no focal uptake - MRI pelvis 09/11/17 : Diffuse symmetric edema of the bilateral buttock musculature , ? Myositis Discrete 3 x 3 x 7.3 cm fluid collection in the lateral left buttock musculature 09/13 SP No purulent material aspirated. Only small amount of blood aspirated Cx : Negative Blood Cx 09/17/17 - Neg Urine Cx 09/18/17 - Low counts MDR ABC (colonizers) Fever:; resolving- source ? Rhabdo vs pancreatitis, R gluteal hemotoma - CT scan 09/19/17 - Interim development of what is probably a right buttock hematoma, measuring 6 x 3.5 by at least 11 cm, Worsening anasarca, Mild pulmonary groundglass opacity, likely represents pulmonary edema, 12 mm focus of low attenuation within the dome of the right hepatic lobe. Complex cyst , early hepatic abscess, less likely neoplasm given patient's age. Consider further evaluation with sonography to see if this is sonographically visible Diverticulosis. No evidence of diverticulitis -Cdiff neg -v/duplex no DVT -HIV ab sc and VL neg, RPR/FTA, GC/CL neg Aspiration PNA , s/p Rx -CXR 09/04 : Interim development of hazy interstitial and airspace disease in the right lung. This may to some extent be an artifact of less optimal inspiration, however. Interim extubation -sp cx normal ann; repeat sp cx MSSA -legionella ag urine neg Sp sepsis - L foot pain 2ry to cyst vs component of plantar fascitis -MRI R foot: No acute or significant abnormality demonstrated. Small cyst, probably degenerative, at the base of the third metatarsal. Hep C +; VL ND -ABD US: Gallbladder sludge. Negative for gallstones or dilated ducts. Equivocal increased hepatic echogenicity, if real could indicate hepatocellular disease such as fatty change. Borderline hepatomegaly. Mildly increased renal echogenicity, could indicate medical renal disease. Correlate with renal function tests. Left pleural effusion -Hep A and B immune Drug overdose -UDS + opiates, amphetamines, THC, cocaine -+empty heroin needles (found on hotel room) Multiorgan failure -LUCRECIA, - on HD; now off HD, permacath removed 09/25 -Transaminitis, (shock liver); improving -VDRF (airway protection)- extubated 09/03 Lactic acidosis; resolved Rhabdomyolisis; improving Pancreatitis- drug induced -neg alcohol levels Encephalopathy - improved -CT head 09/04: Unusual scalp contusion, new since prior study 08/29/2017. No evidence of underlying calvarial trauma. Negative for acute intracranial bleed or mass effect Plan: Continue to monitor off abx unless increased fever, WBC 09/25 SP Dapto d#10, Merrem d#10, Micafungin #6 - 09/14/17 - SP IV Micafungin # 7 ( Emperic coverage of fungemia ) -09/14/17 - S/P IV Vanco and Zosyn # 9 -09/04 SP IV Azithromycin #3 -09/03 SP Zosyn #6 -May need repeat CT abd/p or MRI w/ if persistent fevers and leukocytosis - Monitor CBC/CMP, temperatures - aspiration precautions - Monitor CK - Neuro,cardio, renal, GI f/u - Consider liver abscess if leukocytosis does not resolve. -f/u repeat Bcx x2 -Podiatry f/u Subjective Allergies: Coded Allergies: NO KNOWN ALLERGIES (Verified Allergy, Unknown, 09/02/17) Subjective afebrile BCx NTD wbc improved; no cbc today Objective Vital Signs Last 24 Hour Vital Signs Date Time Temp Pulse Resp B/P (MAP) Pulse Ox O2 Delivery O2 Flow Rate FiO2 10/02/17 15:23 98.5 97 20 133/87 (102) 98 98.5 10/02/17 12:00 98.2 88 19 131/90 (104) 98.2 10/02/17 09:00 Room Air 10/02/17 08:00 97.7 109 20 124/84 (97) 97 97.7 10/02/17 04:00 97.7 96 19 138/90 (106) 98 97.7 10/02/17 02:12 139/97 10/02/17 00:29 98.2 88 16 139/97 (111) 98 98.2 10/01/17 21:00 Room Air 10/01/17 20:00 98.6 94 18 146/94 (111) 98 98.6 10/01/17 17:45 148/86 Height (Feet): 5 Height (Inches): 5.00 Weight (Pounds): 148 Objective General: intubated, restless HEENT: ETT in place Heart: RRR, no murmurs Lungs: CTA x2 ABD: S+D, ND, BS+ Extremity no edema or cellulitis Current Medications Medications (Trade) Dose Ordered Sig/Krystyna Route PRN Reason Start Time Stop Time Status Last Admin Dose Admin Acetaminophen (Tylenol) 650 mg Q4H PRN ORAL Fever (temp>100.5F) 09/05/17 18:30 10/05/17 18:29 09/29/17 21:13 Aluminum Hydroxide (Amphojel) 1,920 mg Q8H ORAL 09/18/17 15:00 10/18/17 14:59 10/02/17 15:26 Amlodipine Besylate (Norvasc) 2.5 mg DAILY ORAL 09/23/17 09:00 10/23/17 08:59 10/01/17 08:23 Clonidine HCl (Catapres Tab) 0.1 mg Q8H ORAL 09/17/17 18:00 10/10/17 03:59 10/02/17 02:12 Dextrose (Dextrose 50%) 25 ml STAT PRN IV Hypoglycemia 09/05/17 18:30 10/05/17 18:29 Dextrose (Dextrose 50%) 50 ml STAT PRN IV Hypoglycemia 09/05/17 18:30 10/05/17 18:29 Docusate Sodium (Colace) 100 mg TID ORAL 09/17/17 13:00 10/17/17 12:59 09/25/17 17:34 Epoetin Joel (Procrit (for non ESRD use)) 3,000 units MON-WED-FRI SUBQ 09/23/17 21:00 10/23/17 20:59 09/30/17 21:38 Menthol/Methyl Salicylate (Bengay) 1 applic Q6H PRN TOPIC For Pain 09/28/17 14:15 10/28/17 14:14 09/29/17 21:13 Mirtazapine (Remeron) 15 mg BEDTIME ORAL 09/05/17 21:00 10/04/17 20:59 10/01/17 21:43 Pantoprazole (Protonix) 40 mg Q12HR ORAL 09/18/17 14:00 10/18/17 13:59 10/02/17 08:01 Potassium Chloride (K-Dur) 40 meq TWICE A DAY GT 09/22/17 18:00 10/22/17 17:59 09/29/17 08:27 Quetiapine Fumarate (SEROquel) 50 mg DAILY ORAL 09/17/17 09:00 10/17/17 08:59 10/01/17 08:22 Quetiapine Fumarate (SEROquel) 50 mg Q4H PRN ORAL agitation 09/10/17 14:00 10/10/17 13:59 09/18/17 01:47 Quetiapine Fumarate (SEROquel) 50 mg QLUNCH ORAL 09/17/17 11:30 10/17/17 11:29 09/27/17 11:34 Quetiapine Fumarate (SEROquel) 100 mg BEDTIME ORAL 09/16/17 21:00 10/16/17 20:59 10/01/17 21:44 Tamsulosin HCl (Flomax) 0.4 mg BEDTIME ORAL 09/20/17 12:00 10/20/17 11:59 10/01/17 21:43 Krystal Romero M.D. Oct 02, 2017 16:35
--- NOTE | 2017-10-02 17:09 | Neurology Progress Note ---
Interim History Interim History Interim History Mr. Stover feels better. He is in good spirits. The left foot pain is still bothersome - it is now localized to just anterior to his heel pad. In addition the neuropathic component is much less marked. He is alert and bright. The mind is clear. He denies any agitation. His energy level is close to normal. His memory is also close to normal. His appetite is better. He is generally stronger. He walked a little today but it was difficult. He denies any new neurologic symptoms. He specifically denies any increased weakness on one side or the other, numbness on one side or the other, problems with speech, problems with language , or problems with vision. He was fitted for his right AFO today. Review of Systems Neuro Review of Systems Benign. Objective Physical Exam Last Vital Signs Date Time Temp Pulse Resp B/P (MAP) Pulse Ox O2 Delivery O2 Flow Rate FiO2 10/02/17 15:23 98.5 97 20 133/87 (102) 98 98.5 10/02/17 09:00 Room Air Neurologic Exam Objective PHYSICAL EXAMINATION: GENERAL: He is a well-developed, well-nourished, gentleman, lying in bed. HEAD: Normocephalic and atraumatic. EENT: Examination benign. NECK: No neck rigidity was observed. NEUROLOGIC EXAMINATION: MENTAL STATUS EXAMINATION: He was awake and alert. He was oriented to self, and [facility] and October 01, 2017. He was able to recall 3/3 words immediately, and could remember them in 1 and 3 minutes. He was able to remember presidents Trump through [employer]. His mathematical skills were good. His visuospatial function was good. SPEECH: He had no dysarthria. LANGUAGE: He had a mild anomia for low frequency words. CRANIAL NERVE EXAMINATION: II: The visual dinh were intact on confrontation testing. III, IV & : The external ocular movements were present. The pupils were 3 mm in diameter and reactive sluggishly to light. V: He had normal facial sensations and the temporales, masseters and pterygoids functioned well. VII: He had normal facial expressions and no facial asymmetry. VIII: He was able to hear well and had no nystagmus. IX: The palate moved symmetrically on phonation. X: He had no hoarseness of voice. XI: The sternocleidomastoids and trapezii functioned well. XII: The tongue was in the midline. MOTOR SYSTEM: The tone was normal in all four extremities. Examination of muscle mass revealed no focal wasting. Examination of power revealed G 5/5 power in all muscle groups except for G 0/5 in the right ankle dorsiflexors, toe extensors, ankle plantar flexors and toe flexors, G 5-/5 in the left ankle dorsiflexors and toe extensors, and G 4/5 in the iliopsoas muscle bilaterally. SENSORY EXAMINATION: He had altered sensations in the right peroneal distribution. In the left foot, he had moderate tenderness at the insertion of the plantar fascia. The neuropathic component to the pain was markedly diminished. REFLEXES: Trace+ and bilaterally symmetrical at the biceps, triceps, brachioradialis, and knees, 0 at both ankles. The plantar responses were flexor bilaterally. COORDINATION: He performed well on finger to nose and heel to jolley testing. STANCE & GAIT: Could not be tested. Impression/Recommendations Diagnostic Impression 1. Mr. Enoch Stover is a 37-year-old, gentleman, of unknown handedness, who was found unconscious in a hotel room on 08/29/2017 after he had used multiple drugs. He was found to be possibly febrile, hypoglycemic, and breathing rapidly. Since then, he has been hospitalized and treated for sepsis. 2. He feels better. He is in good spirits. The left foot pain is still bothersome - it is now localized to just anterior to his heel pad. In addition the neuropathic component is much less marked. He is alert and bright. The mind is clear. He denies any agitation. His energy level is close to normal. His memory is also close to normal. His appetite is better. He is generally stronger. He walked a little today but it was difficult. He denies any new neurologic symptoms. 3. On neurological examination, at this time, he is awake and alert. He is fully oriented. His memory has normalized. His speech is normal. He has a mild anomia. His cranial nerves are functioning normally. His motor function is relatively good, he however has mild proximal lower extremity weakness, and mild distal left lower extremity weakness with no movement in the right ankle and toes. His sensations are altered in the right peroneal distribution. In the left foot, he had moderate tenderness at the insertion of the plantar fascia. The neuropathic component to the pain was markedly diminished. His deep tendon reflexes are diminished but his plantar responses are flexor. He also does not demonstrate any definite focal or lateralizing neurological findings. 4. The CT scan of the brain performed on 08/29/2017 and repeated on 09/04/17 is benign for acute pathology. 5. Laboratory data obtained thus far revealed, on admission, his hemoglobin was elevated to 18.4, his WBC was normal at 8,500, but since then his WBCs have peaked to 17,200. His chemistry panel on admission revealed BUN elevated to 31 , creatinine elevated to 3.6, lactic acid elevated to 5.5, bilirubin elevated at 1.2, AST elevated at 478, ALT elevated to 159, CK elevated to greater than 10 ,000, troponin elevated at 1.01, BNP elevated to 2143. His urine toxicology screen was positive for opiates, amphetamines, cocaine, and marijuana. His INR was elevated at 1.2. His TSH is elevated at 4.72. The T3 is low but the T4 is normal. 6. The patient's history, neurological examination, laboratory data, and imaging studies are most compatible with an altered mental state due to a toxic metabolic encephalopathy. 7. The most likely etiology for the encephalopathy was the sepsis, possibly a period of hypoglycemia and ongoing multiple metabolic imbalances and the toxic imbalances. In addition the use of mind-altering drugs could have also been contributing. 8. His encephalopathy has improved markedly and continues to improve. 9. He has also developed bilateral mild proximal lower extremity weakness, and in addition severe right distal lower extremity weakness with severe right peroneal and tibial nerve dysfunction. His sensations are also altered in the right peroneal distribution. He is bothered by left foot pain for the last day or two. 10. Since 09/27/17 he has developed pain in the sole of the left foot. In the left foot, he has moderate tenderness at the insertion of the plantar fascia. The neuropathic component to the pain has markedly diminished. Recommendations 1. Continue present management. 2. Continue aggressive treatment of the patient's infectious process. 3. Aggressive management of toxic/metabolic imbalances. 4. AFO for right foot drop. 5. Consider having plantar fascia injected. 6. PT/OT. 7. Would refrain from use of anticonvulsant drugs to treat foot pain as it will slow down his brain recovery. 8. Observe closely. Chris Gomez M.D., M.S.P.H. CHRIS GOMEZ Oct 02, 2017 17:09
[2017-10-02 20:00] VITALS: BP 139/96
[2017-10-02] MEDS: Tamsulosin 0.4mg cap ORAL SCH (20:52)
[2017-10-02] MEDS: Epogen (for non ESRD use) SUBQ SCH (20:52)
--- NOTE | 2017-10-02 23:51 | Cardiology Progress Note ---
Assessment/Plan Assessment/Plan 1. Elevated troponin I level likely due to myocarditis, sepsis, or due to shock. Continue conservative management. 2. Sinus tachycardia, resolved, continue hydration. 3. HTN, well controlled, continue amlodipine. Subjective Subjective No cardiac events noted. Objective Last 24 Hour Vital Signs Date Time Temp Pulse Resp B/P (MAP) Pulse Ox O2 Delivery O2 Flow Rate FiO2 10/02/17 21:00 Room Air 10/02/17 20:00 98.8 95 19 139/96 (110) 97 98.8 10/02/17 15:23 98.5 97 20 133/87 (102) 98 98.5 10/02/17 12:00 98.2 88 19 131/90 (104) 98.2 10/02/17 09:00 Room Air 10/02/17 08:00 97.7 109 20 124/84 (97) 97 97.7 10/02/17 04:00 97.7 96 19 138/90 (106) 98 97.7 10/02/17 02:12 139/97 10/02/17 00:29 98.2 88 16 139/97 (111) 98 98.2 Intake and Output 10/01/17 10/02/17 19:00 07:00 Intake Total 520 ml 300 ml Output Total 400 ml Balance 520 ml -100 ml Intake Oral 520 ml 300 ml Output Urine Total 400 ml # Bowel Movements 1 1 2D Echo: KATELYN: Nl LV systolic & diastolic function, Mild MR, No vegetations, Nl RVSP Objective HEENT: Atraumatic and normocephalic. Pupils are equal, round, and reactive to light and accommodation. NECK: JVP cannot be assessed. CVS: Normal S1, S2, regular rate and rhythm, no murmurs, gallops, or rubs. LUNGS: Clear to auscultation bilaterally. ABDOMEN: Soft, nontender, and nondistended. No hepatosplenomegaly. Positive bowel sounds. EXTREMITIES: No evidence of edema, clubbing, or cyanosis. Right lower extremity with decrease in both motor and sensory function. Jorge Mcdonough MD Oct 02, 2017 23:51
[2017-10-03] VITALS: BP 127/79
[2017-10-03 04:00] VITALS: BP 140/98
[2017-10-03 07:31] LABS: BASOPHILS % (AUTO) 1.4 % (0.0-2.0); EOSINOPHILS % (AUTO) 2.3 % (0.0-3.0); HEMATOCRIT 30.1 % (42.0-52.0); LYMPHOCYTES % (AUTO) 15.6 % (20.0-45.0); MEAN CORPUSCULAR VOLUME 95 FL (80-99); MONOCYTES % (AUTO) 8.9 % (1.0-10.0); NEUTROPHILS % (AUTO) 71.9 % (45.0-75.0); PLATELET COUNT 596 K/UL (150-450); RED BLOOD COUNT 3.19 M/UL (4.70-6.10); RED CELL DISTRIBUTION WIDTH 12.7 % (11.6-14.8); WHITE BLOOD COUNT 9.2 K/UL (4.8-10.8)
[2017-10-03 07:33] LABS: ANION GAP 12 mmol/L (5-15); BLOOD UREA NITROGEN 27 mg/dL (7-18); CALCIUM 9.3 MG/DL (8.5-10.1); CARBON DIOXIDE 24 MMOL/L (21-32); CHLORIDE 104 MMOL/L (98-107); CREATININE 1.1 MG/DL (0.55-1.30); PHOSPHORUS 3.5 MG/DL (2.5-4.9); POTASSIUM 4.3 MMOL/L (3.5-5.1); SODIUM 140 MMOL/L (136-145)
[2017-10-03 08:00] VITALS: BP 139/81
[2017-10-03] MEDS: Docusate 100mg cap ORAL SCH ×3 (08:11→18:00)
[2017-10-03] MEDS: Aluminum Hydroxide Gel Susp 15ml ORAL SCH ×2 (08:25→16:27)
--- NOTE | 2017-10-03 11:47 | Infectious Diseases Prog Note ---
Assessment/Plan Assessment/Plan Assessment/Plan Leukocytosis,persistent ; now improving No source found - Pancreatitis ?, R gluteal hematoma vs liver abscess (doubt, no pain, clinically improved) -Bcx 09/27 Neg CXR: Increased pulmonary markings suggestive of congestion. Otherwise, no acute cardiopulmonary disease. -u/a wbc 5-10, nit neg, leuk +1; cx neg -Bcx NTD (09/05 abd 09/07) -2d Echo (limited but no vegetations seen) - No Veg on KATELYN 09/10/17 - Tagged WBCs no focal uptake - MRI pelvis 09/11/17 : Diffuse symmetric edema of the bilateral buttock musculature , ? Myositis Discrete 3 x 3 x 7.3 cm fluid collection in the lateral left buttock musculature 09/13 SP No purulent material aspirated. Only small amount of blood aspirated Cx : Negative Blood Cx 09/17/17 - Neg Urine Cx 09/18/17 - Low counts MDR ABC (colonizers) Fever:; resolving- source ? Rhabdo vs pancreatitis, R gluteal hemotoma - CT scan 09/19/17 - Interim development of what is probably a right buttock hematoma, measuring 6 x 3.5 by at least 11 cm, Worsening anasarca, Mild pulmonary groundglass opacity, likely represents pulmonary edema, 12 mm focus of low attenuation within the dome of the right hepatic lobe. Complex cyst , early hepatic abscess, less likely neoplasm given patient's age. Consider further evaluation with sonography to see if this is sonographically visible Diverticulosis. No evidence of diverticulitis -Cdiff neg -v/duplex no DVT -HIV ab sc and VL neg, RPR/FTA, GC/CL neg Aspiration PNA , s/p Rx -CXR 09/04 : Interim development of hazy interstitial and airspace disease in the right lung. This may to some extent be an artifact of less optimal inspiration, however. Interim extubation -sp cx normal ann; repeat sp cx MSSA -legionella ag urine neg Sp sepsis - L foot pain 2ry to cyst vs component of plantar fascitis -MRI R foot: No acute or significant abnormality demonstrated. Small cyst, probably degenerative, at the base of the third metatarsal. Hep C +; VL ND -ABD US: Gallbladder sludge. Negative for gallstones or dilated ducts. Equivocal increased hepatic echogenicity, if real could indicate hepatocellular disease such as fatty change. Borderline hepatomegaly. Mildly increased renal echogenicity, could indicate medical renal disease. Correlate with renal function tests. Left pleural effusion -Hep A and B immune Drug overdose -UDS + opiates, amphetamines, THC, cocaine -+empty heroin needles (found on hotel room) Multiorgan failure -LUCRECIA, - on HD; now off HD, permacath removed 09/25 -Transaminitis, (shock liver); improving -VDRF (airway protection)- extubated 09/03 Lactic acidosis; resolved Rhabdomyolisis; improving Pancreatitis- drug induced -neg alcohol levels Encephalopathy - improved -CT head 09/04: Unusual scalp contusion, new since prior study 08/29/2017. No evidence of underlying calvarial trauma. Negative for acute intracranial bleed or mass effect Plan: Continue to monitor off abx unless increased fever, WBC 09/25 SP Dapto d#10, Merrem d#10, Micafungin #6 - 09/14/17 - SP IV Micafungin # 7 ( Emperic coverage of fungemia ) -09/14/17 - S/P IV Vanco and Zosyn # 9 -09/04 SP IV Azithromycin #3 -09/03 SP Zosyn #6 -May need repeat CT abd/p or MRI w/ if persistent fevers and leukocytosis - Monitor CBC/CMP, temperatures - aspiration precautions - Monitor CK - Neuro,cardio, renal, GI f/u - Consider liver abscess if leukocytosis does not resolve. -Podiatry f/u Subjective Allergies: Coded Allergies: NO KNOWN ALLERGIES (Verified Allergy, Unknown, 09/02/17) Subjective afebrile BCx NTD wbc improved; no cbc today Objective Vital Signs Last 24 Hour Vital Signs Date Time Temp Pulse Resp B/P (MAP) Pulse Ox O2 Delivery O2 Flow Rate FiO2 10/03/17 08:00 97.3 82 20 139/81 (100) 97 97.3 10/03/17 04:00 98.0 92 19 140/98 (112) 98 98.0 10/03/17 01:33 127/79 10/03/17 00:00 98.9 86 19 127/79 (95) 97 98.9 10/02/17 21:00 Room Air 10/02/17 20:00 98.8 95 19 139/96 (110) 97 98.8 10/02/17 15:23 98.5 97 20 133/87 (102) 98 98.5 10/02/17 12:00 98.2 88 19 131/90 (104) 98.2 Height (Feet): 5 Height (Inches): 5.00 Weight (Pounds): 149 Objective General: intubated, restless HEENT: ETT in place Heart: RRR, no murmurs Lungs: CTA x2 ABD: S+D, ND, BS+ Extremity no edema or cellulitis Laboratory Tests Test 10/03/17 06:45 White Blood Count 9.2 K/UL (4.8-10.8) Red Blood Count 3.19 M/UL (4.70-6.10) L Hemoglobin 10.0 G/DL (14.2-18.0) L Hematocrit 30.1 % (42.0-52.0) L Mean Corpuscular Volume 95 FL (80-99) Mean Corpuscular Hemoglobin 31.4 PG (27.0-31.0) H Mean Corpuscular Hemoglobin Concent 33.2 G/DL (32.0-36.0) Red Cell Distribution Width 12.7 % (11.6-14.8) Platelet Count 596 K/UL (150-450) H Mean Platelet Volume 5.8 FL (6.5-10.1) L Neutrophils (%) (Auto) 71.9 % (45.0-75.0) Lymphocytes (%) (Auto) 15.6 % (20.0-45.0) L Monocytes (%) (Auto) 8.9 % (1.0-10.0) Eosinophils (%) (Auto) 2.3 % (0.0-3.0) Basophils (%) (Auto) 1.4 % (0.0-2.0) Sodium Level 140 MMOL/L (136-145) Potassium Level 4.3 MMOL/L (3.5-5.1) Chloride Level 104 MMOL/L (98-107) Carbon Dioxide Level 24 MMOL/L (21-32) Anion Gap 12 mmol/L (5-15) Blood Urea Nitrogen 27 mg/dL (7-18) H Creatinine 1.1 MG/DL (0.55-1.30) Estimat Glomerular Filtration Rate > 60 mL/min (>60) Glucose Level 104 MG/DL (74-106) Calcium Level 9.3 MG/DL (8.5-10.1) Phosphorus Level 3.5 MG/DL (2.5-4.9) Magnesium Level 1.8 MG/DL (1.8-2.4) Current Medications Medications (Trade) Dose Ordered Sig/Krystyna Route PRN Reason Start Time Stop Time Status Last Admin Dose Admin Acetaminophen (Tylenol) 650 mg Q4H PRN ORAL Fever (temp>100.5F) 09/05/17 18:30 10/05/17 18:29 10/02/17 20:54 Aluminum Hydroxide (Amphojel) 1,920 mg Q8H ORAL 10/03/17 09:00 11/02/17 08:59 10/03/17 08:25 Amlodipine Besylate (Norvasc) 2.5 mg DAILY ORAL 09/23/17 09:00 10/23/17 08:59 10/01/17 08:23 Clonidine HCl (Catapres Tab) 0.1 mg Q8H ORAL 09/17/17 18:00 10/10/17 03:59 10/03/17 01:33 Dextrose (Dextrose 50%) 25 ml STAT PRN IV Hypoglycemia 09/05/17 18:30 10/05/17 18:29 Dextrose (Dextrose 50%) 50 ml STAT PRN IV Hypoglycemia 09/05/17 18:30 10/05/17 18:29 Docusate Sodium (Colace) 100 mg TID ORAL 09/17/17 13:00 10/17/17 12:59 09/25/17 17:34 Epoetin Joel (Procrit (for non ESRD use)) 3,000 units SAT-SAT-SAT SUBQ 09/23/17 21:00 10/23/17 20:59 10/02/17 20:52 Menthol/Methyl Salicylate (Bengay) 1 applic Q6H PRN TOPIC For Pain 09/28/17 14:15 10/28/17 14:14 09/29/17 21:13 Mirtazapine (Remeron) 15 mg BEDTIME ORAL 09/05/17 21:00 10/04/17 20:59 10/02/17 20:52 Pantoprazole (Protonix) 40 mg Q12HR ORAL 09/18/17 14:00 10/18/17 13:59 10/03/17 08:24 Potassium Chloride (K-Dur) 40 meq TWICE A DAY GT 09/22/17 18:00 10/22/17 17:59 09/29/17 08:27 Quetiapine Fumarate (SEROquel) 50 mg DAILY ORAL 09/17/17 09:00 10/17/17 08:59 10/01/17 08:22 Quetiapine Fumarate (SEROquel) 50 mg Q4H PRN ORAL agitation 09/10/17 14:00 10/10/17 13:59 09/18/17 01:47 Quetiapine Fumarate (SEROquel) 50 mg QLUNCH ORAL 09/17/17 11:30 10/17/17 11:29 09/27/17 11:34 Quetiapine Fumarate (SEROquel) 100 mg BEDTIME ORAL 09/16/17 21:00 10/16/17 20:59 10/02/17 20:52 Tamsulosin HCl (Flomax) 0.4 mg BEDTIME ORAL 09/20/17 12:00 10/20/17 11:59 10/02/17 20:52 Krystal Romero M.D. Oct 03, 2017 11:47
[2017-10-03 12:00] VITALS: BP 146/68
--- NOTE | 2017-10-03 12:34 | GI Progress Note ---
Assessment/Plan Problems: (1) Severe sepsis ICD Codes: A41.9 - Sepsis, unspecified organism; R65.20 - Severe sepsis without septic shock SNOMED: 80212572 (2) Rhabdomyolysis ICD Codes: M62.82 - Rhabdomyolysis SNOMED: 681438763 Qualifiers: Qualified Codes: T79.6XXA - Traumatic ischemia of muscle, initial encounter (3) Aspiration pneumonia ICD Codes: J69.0 - Pneumonitis due to inhalation of food and vomit SNOMED: 923674705 Qualifiers: Qualified Codes: J69.0 - Pneumonitis due to inhalation of food and vomit (4) Substance abuse ICD Codes: F19.10 - Other psychoactive substance abuse, uncomplicated SNOMED: 38280698 (5) Transaminitis ICD Codes: R74.0 - Nonspecific elevation of levels of transaminase and lactic acid dehydrogenase [LDH] SNOMED: 813531895, 369039471 Status: doing well Status Narrative Discussed with Dr. Chavez. Assessment/Plan Hep A immunity Hep C positive, 2nd draw was negative transaminitis >> resolved cdiff negative stool culture >> gram negative bacillus elevated lipase >> now normal OB stool negative x2 supportive care prn transfusions change to regular diet, tolerating abx ppi fu labs dc planning The patient was seen and examined at bedside and all new and available data was reviewed in the patients chart. I agree with the above findings, impression and plan. (Patient seen earlier today. Signature stamp does not reflect patient encounter time.). - Efrain Chavez MD Subjective Subjective BLE weakness Objective Last 24 Hour Vital Signs Date Time Temp Pulse Resp B/P (MAP) Pulse Ox O2 Delivery O2 Flow Rate FiO2 10/03/17 12:00 97.7 91 18 146/68 (94) 98 97.7 10/03/17 08:00 97.3 82 20 139/81 (100) 97 97.3 10/03/17 04:00 98.0 92 19 140/98 (112) 98 98.0 10/03/17 01:33 127/79 10/03/17 00:00 98.9 86 19 127/79 (95) 97 98.9 10/02/17 21:00 Room Air 10/02/17 20:00 98.8 95 19 139/96 (110) 97 98.8 10/02/17 15:23 98.5 97 20 133/87 (102) 98 98.5 Intake and Output 10/02/17 10/03/17 19:00 07:00 Intake Total 960 ml 250 ml Output Total 700 ml Balance 960 ml -450 ml Intake Oral 960 ml 250 ml Output Urine Total 700 ml # Voids 3 2 # Bowel Movements 2 Laboratory Tests Test 10/03/17 06:45 White Blood Count 9.2 K/UL (4.8-10.8) Red Blood Count 3.19 M/UL (4.70-6.10) L Hemoglobin 10.0 G/DL (14.2-18.0) L Hematocrit 30.1 % (42.0-52.0) L Mean Corpuscular Volume 95 FL (80-99) Mean Corpuscular Hemoglobin 31.4 PG (27.0-31.0) H Mean Corpuscular Hemoglobin Concent 33.2 G/DL (32.0-36.0) Red Cell Distribution Width 12.7 % (11.6-14.8) Platelet Count 596 K/UL (150-450) H Mean Platelet Volume 5.8 FL (6.5-10.1) L Neutrophils (%) (Auto) 71.9 % (45.0-75.0) Lymphocytes (%) (Auto) 15.6 % (20.0-45.0) L Monocytes (%) (Auto) 8.9 % (1.0-10.0) Eosinophils (%) (Auto) 2.3 % (0.0-3.0) Basophils (%) (Auto) 1.4 % (0.0-2.0) Sodium Level 140 MMOL/L (136-145) Potassium Level 4.3 MMOL/L (3.5-5.1) Chloride Level 104 MMOL/L (98-107) Carbon Dioxide Level 24 MMOL/L (21-32) Anion Gap 12 mmol/L (5-15) Blood Urea Nitrogen 27 mg/dL (7-18) H Creatinine 1.1 MG/DL (0.55-1.30) Estimat Glomerular Filtration Rate > 60 mL/min (>60) Glucose Level 104 MG/DL (74-106) Calcium Level 9.3 MG/DL (8.5-10.1) Phosphorus Level 3.5 MG/DL (2.5-4.9) Magnesium Level 1.8 MG/DL (1.8-2.4) Height (Feet): 5 Height (Inches): 5.00 Weight (Pounds): 149 General Appearance: WD/WN, no apparent distress, alert Cardiovascular: normal rate Respiratory/Chest: normal breath sounds, no respiratory distress Abdominal Exam: normal bowel sounds, non tender, soft Extremities: non-tender Carlos Lopez NP Oct 03, 2017 12:34
--- NOTE | 2017-10-03 12:36 | General Progress Note ---
Assessment/Plan Problem List: (1) Substance abuse ICD Codes: F19.10 - Other psychoactive substance abuse, uncomplicated SNOMED: 99130207 (2) Severe sepsis ICD Codes: A41.9 - Sepsis, unspecified organism; R65.20 - Severe sepsis without septic shock SNOMED: 78535909 (3) LUCRECIA (acute kidney injury) ICD Codes: N17.9 - Acute kidney failure, unspecified SNOMED: 07350603 Status: progressing Assessment/Plan afebrile sepsis is improving antibiotic per id no acute events abscess collection poly substance chronic pain Subjective ROS Limited/Unobtainable: Yes Allergies: Coded Allergies: NO KNOWN ALLERGIES (Verified Allergy, Unknown, 09/02/17) Objective Last 24 Hour Vital Signs Date Time Temp Pulse Resp B/P (MAP) Pulse Ox O2 Delivery O2 Flow Rate FiO2 10/03/17 12:00 97.7 91 18 146/68 (94) 98 97.7 10/03/17 08:00 97.3 82 20 139/81 (100) 97 97.3 10/03/17 04:00 98.0 92 19 140/98 (112) 98 98.0 10/03/17 01:33 127/79 10/03/17 00:00 98.9 86 19 127/79 (95) 97 98.9 10/02/17 21:00 Room Air 10/02/17 20:00 98.8 95 19 139/96 (110) 97 98.8 10/02/17 15:23 98.5 97 20 133/87 (102) 98 98.5 Intake and Output 10/02/17 10/03/17 19:00 07:00 Intake Total 960 ml 250 ml Output Total 700 ml Balance 960 ml -450 ml Intake Oral 960 ml 250 ml Output Urine Total 700 ml # Voids 3 2 # Bowel Movements 2 Laboratory Tests 10/03/17 06:45: White Blood Count 9.2, Red Blood Count 3.19L, Hemoglobin 10.0L, Hematocrit 30.1L , Mean Corpuscular Volume 95, Mean Corpuscular Hemoglobin 31.4H, Mean Corpuscular Hemoglobin Concent 33.2, Red Cell Distribution Width 12.7, Platelet Count 596H, Mean Platelet Volume 5.8L, Neutrophils (%) (Auto) 71.9, Lymphocytes (%) (Auto) 15.6L, Monocytes (%) (Auto) 8.9, Eosinophils (%) (Auto) 2.3, Basophils (%) (Auto) 1.4, Sodium Level 140, Potassium Level 4.3, Chloride Level 104, Carbon Dioxide Level 24, Anion Gap 12, Blood Urea Nitrogen 27H, Creatinine 1.1, Estimat Glomerular Filtration Rate > 60, Glucose Level 104, Calcium Level 9.3, Phosphorus Level 3.5, Magnesium Level 1.8 Height (Feet): 5 Height (Inches): 5.00 Weight (Pounds): 149 Neck: supple Cardiovascular: normal rate Respiratory/Chest: lungs clear Abdomen: soft Mode Dutta MD Oct 03, 2017 12:36
--- NOTE | 2017-10-03 15:41 | Nephrology Progress Note ---
Assessment/Plan Assessment 1.LUCRECIA resolved 2.Drug overdose 3.hypomagnesemia Plan replace electrolyte as need it monitoring renal function monitoring out put Subjective Constitutional: Reports: no symptoms HEENT: Reports: no symptoms Genitourinary: Reports: no symptoms Neurologic/Psychiatric: Reports: no symptoms Subjective no complaints Objective Objective Last 24 Hour Vital Signs Date Time Temp Pulse Resp B/P (MAP) Pulse Ox O2 Delivery O2 Flow Rate FiO2 10/03/17 12:00 97.7 91 18 146/68 (94) 98 97.7 10/03/17 09:00 Room Air 10/03/17 08:00 97.3 82 20 139/81 (100) 97 97.3 10/03/17 04:00 98.0 92 19 140/98 (112) 98 98.0 10/03/17 01:33 127/79 10/03/17 00:00 98.9 86 19 127/79 (95) 97 98.9 10/02/17 21:00 Room Air 10/02/17 20:00 98.8 95 19 139/96 (110) 97 98.8 Intake and Output 10/02/17 10/03/17 19:00 07:00 Intake Total 960 ml 250 ml Output Total 700 ml Balance 960 ml -450 ml Intake Oral 960 ml 250 ml Output Urine Total 700 ml # Voids 3 2 # Bowel Movements 2 Laboratory Tests 10/03/17 06:45: White Blood Count 9.2, Red Blood Count 3.19L, Hemoglobin 10.0L, Hematocrit 30.1L , Mean Corpuscular Volume 95, Mean Corpuscular Hemoglobin 31.4H, Mean Corpuscular Hemoglobin Concent 33.2, Red Cell Distribution Width 12.7, Platelet Count 596H, Mean Platelet Volume 5.8L, Neutrophils (%) (Auto) 71.9, Lymphocytes (%) (Auto) 15.6L, Monocytes (%) (Auto) 8.9, Eosinophils (%) (Auto) 2.3, Basophils (%) (Auto) 1.4, Sodium Level 140, Potassium Level 4.3, Chloride Level 104, Carbon Dioxide Level 24, Anion Gap 12, Blood Urea Nitrogen 27H, Creatinine 1.1, Estimat Glomerular Filtration Rate > 60, Glucose Level 104, Calcium Level 9.3, Phosphorus Level 3.5, Magnesium Level 1.8 Height (Feet): 5 Height (Inches): 5.00 Weight (Pounds): 149 Objective HEAD AND NECK: No JVP. No LAD. G-tube is in place. Head is atraumatic and normocephalic. LUNGS: He has decreased breathing sounds on the both sides. CARDIAC: Regular rate and rhythm. S1 and S2. No murmur. No rub. ABDOMEN: Soft. Bowel sounds positive. EXTREMITIES: No edema. No clubbing. No cyanosis. Aixa Veloz MD Oct 03, 2017 15:41
[2017-10-03 16:00] VITALS: BP 128/85
--- NOTE | 2017-10-03 17:23 | Consultation ---
History of Present Illness General Date patient seen: Oct 03, 2017 Present Illness Allergies: Coded Allergies: NO KNOWN ALLERGIES (Verified Allergy, Unknown, 09/02/17) Medication History Unable to Obtain Active Prescriptions or Reported Meds Patient History Healthcare decision maker Resuscitation status Full Code Advanced Directive on File Physical Exam Last 24 Hour Vital Signs Date Time Temp Pulse Resp B/P (MAP) Pulse Ox O2 Delivery O2 Flow Rate FiO2 10/03/17 16:00 98.4 104 23 128/85 (99) 97 98.4 10/03/17 12:00 97.7 91 18 146/68 (94) 98 97.7 10/03/17 09:00 Room Air 10/03/17 08:00 97.3 82 20 139/81 (100) 97 97.3 10/03/17 04:00 98.0 92 19 140/98 (112) 98 98.0 10/03/17 01:33 127/79 10/03/17 00:00 98.9 86 19 127/79 (95) 97 98.9 10/02/17 21:00 Room Air 10/02/17 20:00 98.8 95 19 139/96 (110) 97 98.8 Intake and Output 10/02/17 10/03/17 19:00 07:00 Intake Total 960 ml 250 ml Output Total 700 ml Balance 960 ml -450 ml Intake Oral 960 ml 250 ml Output Urine Total 700 ml # Voids 3 2 # Bowel Movements 2 Laboratory Tests Test 10/03/17 06:45 White Blood Count 9.2 K/UL (4.8-10.8) Red Blood Count 3.19 M/UL (4.70-6.10) L Hemoglobin 10.0 G/DL (14.2-18.0) L Hematocrit 30.1 % (42.0-52.0) L Mean Corpuscular Volume 95 FL (80-99) Mean Corpuscular Hemoglobin 31.4 PG (27.0-31.0) H Mean Corpuscular Hemoglobin Concent 33.2 G/DL (32.0-36.0) Red Cell Distribution Width 12.7 % (11.6-14.8) Platelet Count 596 K/UL (150-450) H Mean Platelet Volume 5.8 FL (6.5-10.1) L Neutrophils (%) (Auto) 71.9 % (45.0-75.0) Lymphocytes (%) (Auto) 15.6 % (20.0-45.0) L Monocytes (%) (Auto) 8.9 % (1.0-10.0) Eosinophils (%) (Auto) 2.3 % (0.0-3.0) Basophils (%) (Auto) 1.4 % (0.0-2.0) Sodium Level 140 MMOL/L (136-145) Potassium Level 4.3 MMOL/L (3.5-5.1) Chloride Level 104 MMOL/L (98-107) Carbon Dioxide Level 24 MMOL/L (21-32) Anion Gap 12 mmol/L (5-15) Blood Urea Nitrogen 27 mg/dL (7-18) H Creatinine 1.1 MG/DL (0.55-1.30) Estimat Glomerular Filtration Rate > 60 mL/min (>60) Glucose Level 104 MG/DL (74-106) Calcium Level 9.3 MG/DL (8.5-10.1) Phosphorus Level 3.5 MG/DL (2.5-4.9) Magnesium Level 1.8 MG/DL (1.8-2.4) Height (Feet): 5 Height (Inches): 5.00 Weight (Pounds): 149 Medications Current Medications Medications (Trade) Dose Ordered Sig/Krystyna Route PRN Reason Start Time Stop Time Status Last Admin Dose Admin Acetaminophen (Tylenol) 650 mg Q4H PRN ORAL Fever (temp>100.5F) 09/05/17 18:30 10/05/17 18:29 10/02/17 20:54 Aluminum Hydroxide (Amphojel) 1,920 mg Q8H ORAL 10/03/17 09:00 11/02/17 08:59 10/03/17 16:27 Amlodipine Besylate (Norvasc) 2.5 mg DAILY ORAL 09/23/17 09:00 10/23/17 08:59 10/01/17 08:23 Clonidine HCl (Catapres Tab) 0.1 mg Q8H ORAL 09/17/17 18:00 10/10/17 03:59 10/03/17 01:33 Dextrose (Dextrose 50%) 25 ml STAT PRN IV Hypoglycemia 09/05/17 18:30 10/05/17 18:29 Dextrose (Dextrose 50%) 50 ml STAT PRN IV Hypoglycemia 09/05/17 18:30 10/05/17 18:29 Docusate Sodium (Colace) 100 mg TID ORAL 09/17/17 13:00 10/17/17 12:59 09/25/17 17:34 Epoetin Joel (Procrit (for non ESRD use)) 3,000 units SAT-SAT-SAT SUBQ 09/23/17 21:00 10/23/17 20:59 10/02/17 20:52 Menthol/Methyl Salicylate (Bengay) 1 applic Q6H PRN TOPIC For Pain 09/28/17 14:15 10/28/17 14:14 09/29/17 21:13 Mirtazapine (Remeron) 15 mg BEDTIME ORAL 09/05/17 21:00 10/04/17 20:59 10/02/17 20:52 Pantoprazole (Protonix) 40 mg Q12HR ORAL 09/18/17 14:00 10/18/17 13:59 10/03/17 08:24 Potassium Chloride (K-Dur) 40 meq TWICE A DAY GT 09/22/17 18:00 10/22/17 17:59 09/29/17 08:27 Quetiapine Fumarate (SEROquel) 50 mg DAILY ORAL 09/17/17 09:00 10/17/17 08:59 10/01/17 08:22 Quetiapine Fumarate (SEROquel) 50 mg Q4H PRN ORAL agitation 09/10/17 14:00 10/10/17 13:59 09/18/17 01:47 Quetiapine Fumarate (SEROquel) 50 mg QLUNCH ORAL 09/17/17 11:30 10/17/17 11:29 09/27/17 11:34 Quetiapine Fumarate (SEROquel) 100 mg BEDTIME ORAL 09/16/17 21:00 10/16/17 20:59 10/02/17 20:52 Tamsulosin HCl (Flomax) 0.4 mg BEDTIME ORAL 09/20/17 12:00 10/20/17 11:59 10/02/17 20:52 Assessment/Plan Assessment/Plan (1) Polysubstance abuse (2) S/p Drug overdose (3) Rhabdomyolysis (4) Neuropathic pain (5) Left foot pain (6) Right foot drop due to peroneal and tibial nerve dysfunction seen dictated. Cruz Jean Oct 03, 2017 17:23
--- NOTE | 2017-10-03 19:18 | Neurology Progress Note ---
Interim History Interim History Interim History Mr. Stover feels better. He is in good spirits. The left foot pain is still bothersome - it is now localized to just anterior to his heel pad. In addition the neuropathic component is much less marked. He is alert and bright. The mind is clear. He denies any agitation. His energy level is close to normal. His memory is also close to normal. His appetite is better. He is generally stronger. He walked a little today but it was difficult. He denies any new neurologic symptoms. He specifically denies any increased weakness on one side or the other, numbness on one side or the other, problems with speech, problems with language , or problems with vision. He was fitted for his right AFO today. Review of Systems Neuro Review of Systems Benign. Objective Physical Exam Last Vital Signs Date Time Temp Pulse Resp B/P (MAP) Pulse Ox O2 Delivery O2 Flow Rate FiO2 10/03/17 18:00 128/85 10/03/17 16:00 98.4 104 23 97 98.4 10/03/17 09:00 Room Air Laboratory Tests Test 10/03/17 06:45 White Blood Count 9.2 K/UL (4.8-10.8) Red Blood Count 3.19 M/UL (4.70-6.10) L Hemoglobin 10.0 G/DL (14.2-18.0) L Hematocrit 30.1 % (42.0-52.0) L Mean Corpuscular Volume 95 FL (80-99) Mean Corpuscular Hemoglobin 31.4 PG (27.0-31.0) H Mean Corpuscular Hemoglobin Concent 33.2 G/DL (32.0-36.0) Red Cell Distribution Width 12.7 % (11.6-14.8) Platelet Count 596 K/UL (150-450) H Mean Platelet Volume 5.8 FL (6.5-10.1) L Neutrophils (%) (Auto) 71.9 % (45.0-75.0) Lymphocytes (%) (Auto) 15.6 % (20.0-45.0) L Monocytes (%) (Auto) 8.9 % (1.0-10.0) Eosinophils (%) (Auto) 2.3 % (0.0-3.0) Basophils (%) (Auto) 1.4 % (0.0-2.0) Sodium Level 140 MMOL/L (136-145) Potassium Level 4.3 MMOL/L (3.5-5.1) Chloride Level 104 MMOL/L (98-107) Carbon Dioxide Level 24 MMOL/L (21-32) Anion Gap 12 mmol/L (5-15) Blood Urea Nitrogen 27 mg/dL (7-18) H Creatinine 1.1 MG/DL (0.55-1.30) Estimat Glomerular Filtration Rate > 60 mL/min (>60) Glucose Level 104 MG/DL (74-106) Calcium Level 9.3 MG/DL (8.5-10.1) Phosphorus Level 3.5 MG/DL (2.5-4.9) Magnesium Level 1.8 MG/DL (1.8-2.4) Neurologic Exam Objective PHYSICAL EXAMINATION: GENERAL: He is a well-developed, well-nourished, gentleman, lying in bed. HEAD: Normocephalic and atraumatic. EENT: Examination benign. NECK: No neck rigidity was observed. NEUROLOGIC EXAMINATION: MENTAL STATUS EXAMINATION: He was awake and alert. He was oriented to [facility], and [facility] and October 03, 2017. He was able to recall 3/3 words immediately, and could remember them in 1 and 3 minutes. He was able to remember presidents Trump through [employer]. His mathematical skills were good. His visuospatial function was good. SPEECH: He had no dysarthria. LANGUAGE: He had a mild anomia for low frequency words. CRANIAL NERVE EXAMINATION: II: The visual dinh were intact on confrontation testing. III, IV & : The external ocular movements were present. The pupils were 3 mm in diameter and reactive sluggishly to light. V: He had normal facial sensations and the temporales, masseters and pterygoids functioned well. VII: He had normal facial expressions and no facial asymmetry. VIII: He was able to hear well and had no nystagmus. IX: The palate moved symmetrically on phonation. X: He had no hoarseness of voice. XI: The sternocleidomastoids and trapezii functioned well. XII: The tongue was in the midline. MOTOR SYSTEM: The tone was normal in all four extremities. Examination of muscle mass revealed no focal wasting. Examination of power revealed G 5/5 power in all muscle groups except for G 0/5 in the right ankle dorsiflexors, toe extensors, ankle plantar flexors and toe flexors, G 5-/5 in the left ankle dorsiflexors and toe extensors, and G 4/5 in the iliopsoas muscle bilaterally. SENSORY EXAMINATION: He had altered sensations in the right peroneal distribution. In the left foot, he had moderate tenderness at the insertion of the plantar fascia. The neuropathic component to the pain was markedly diminished. REFLEXES: Trace+ and bilaterally symmetrical at the biceps, triceps, brachioradialis, and knees, 0 at both ankles. The plantar responses were flexor bilaterally. COORDINATION: He performed well on finger to nose and heel to jolley testing. STANCE & GAIT: Could not be tested. Impression/Recommendations Diagnostic Impression 1. Mr. Enoch Stover is a 37-year-old, gentleman, of unknown handedness, who was found unconscious in a hotel room on 08/29/2017 after he had used multiple drugs. He was found to be possibly febrile, hypoglycemic, and breathing rapidly. Since then, he has been hospitalized and treated for sepsis. 2. He feels better. He is in good spirits. The left foot pain is still bothersome - it is now localized to just anterior to his heel pad. In addition the neuropathic component is much less marked. He is alert and bright. The mind is clear. He denies any agitation. His energy level is close to normal. His memory is also close to normal. His appetite is better. He is generally stronger. He walked a little today but it was difficult. He denies any new neurologic symptoms. 3. On neurological examination, at this time, he is awake and alert. He is fully oriented. His memory has normalized. His speech is normal. He has a mild anomia. His cranial nerves are functioning normally. His motor function is relatively good, he however has mild proximal lower extremity weakness, and mild distal left lower extremity weakness with no movement in the right ankle and toes. His sensations are altered in the right peroneal distribution. In the left foot, he had moderate tenderness at the insertion of the plantar fascia. The neuropathic component to the pain was markedly diminished. His deep tendon reflexes are diminished but his plantar responses are flexor. He also does not demonstrate any definite focal or lateralizing neurological findings. 4. The CT scan of the brain performed on 08/29/2017 and repeated on 09/04/17 is benign for acute pathology. 5. Laboratory data obtained thus far revealed, on admission, his hemoglobin was elevated to 18.4, his WBC was normal at 8,500, but since then his WBCs have peaked to 17,200. His chemistry panel on admission revealed BUN elevated to 31 , creatinine elevated to 3.6, lactic acid elevated to 5.5, bilirubin elevated at 1.2, AST elevated at 478, ALT elevated to 159, CK elevated to greater than 10 ,000, troponin elevated at 1.01, BNP elevated to 2143. His urine toxicology screen was positive for opiates, amphetamines, cocaine, and marijuana. His INR was elevated at 1.2. His TSH is elevated at 4.72. The T3 is low but the T4 is normal. 6. The patient's history, neurological examination, laboratory data, and imaging studies are most compatible with an altered mental state due to a toxic metabolic encephalopathy. 7. The most likely etiology for the encephalopathy was the sepsis, possibly a period of hypoglycemia and ongoing multiple metabolic imbalances and the toxic imbalances. In addition the use of mind-altering drugs could have also been contributing. 8. His encephalopathy has improved markedly and continues to improve. 9. He has also developed bilateral mild proximal lower extremity weakness, and in addition severe right distal lower extremity weakness with severe right peroneal and tibial nerve dysfunction. His sensations are also altered in the right peroneal distribution. He is bothered by left foot pain for the last day or two. 10. Since 09/27/17 he has developed pain in the sole of the left foot. In the left foot, he has moderate tenderness at the insertion of the plantar fascia. The neuropathic component to the pain has markedly diminished. Recommendations 1. Continue present management. 2. Continue aggressive treatment of the patient's infectious process. 3. Aggressive management of toxic/metabolic imbalances. 4. AFO for right foot drop. 5. Consider having plantar fascia injected. 6. PT/OT. 7. Would refrain from use of anticonvulsant drugs to treat foot pain as it will slow down his brain recovery. 8. Observe closely. Chris Gomez M.D., M.S.P.Luz. CHRIS GOMEZ Oct 03, 2017 19:18
[2017-10-03 20:00] VITALS: BP 137/93
[2017-10-03] MEDS: Tamsulosin 0.4mg cap ORAL SCH (20:50)
[2017-10-04] VITALS: BP 127/81
[2017-10-04] MEDS: Aluminum Hydroxide Gel Susp 15ml ORAL SCH ×3 (01:00→18:32)
[2017-10-04 04:36] VITALS: BP 142/87
--- NOTE | 2017-10-04 06:00 | Consultation ---
DATE OF CONSULTATION: 10/03/2017 CONSULTING PHYSICIAN: Pavel Vigil M.D. REFERRING PHYSICIAN: Mode Dutta MD PHYSICIAN TOUCH UP PAINTER: Jesus Ferris CHIEF COMPLAINT: Bilateral lower extremity pain. HISTORY OF PRESENT ILLNESS: The patient is a 37-year-old male who is being seen on the Medical/Surgical floor of [facility] for initial comprehensive pain management consultation. The patient was admitted to the hospital on 08/29/2017, status post polysubstance abuse, overdose, rhabdomyolysis, and sepsis. The patient is having acute toxic encephalopathy and was having a long journey through his recovery, having found to have marked weakness in the lower extremity, more so on the right than the left, now having complaints of left lower extremity pain with right lower extremity footdrop and numbness. We were consulted, so the patient will have adequate pain control while here in the hospital. At this time, the patient is on Benjay for the foot pain with minimal pain relief. I discussed with the patient about the options for lidocaine patch to be applied to the the left lower extremity at the site of the pain, he was thought to have plantar fasciitis and a java core developer needs to be consulted. MRI was be done showing no acute or significant abnormality being demonstrated. We then discussed with the patient that this could have no past elements and discussed with the patient about the option of starting on gabapentin. The patient was very reluctant due to fear of slowed down. I discussed with the patient about starting on a low dose 100 mg 3 times a day. He understands and agrees, and he has no other complaints. PAST MEDICAL HISTORY: Substance abuse. SOCIAL HISTORY: He smokes tobacco, marijuana, cocaine, methamphetamine, and heroin. ALLERGIES: No known drug allergies. REVIEW OF SYSTEMS: Denies rash, fever, chills, sweating, dizziness, drowsiness, blurred vision, sore throat, or change in his weight. No nausea, vomiting, diarrhea, or blood in the stool or urine. No bowel or bladder incontinence. No dysuria. He complains of bilateral lower extremity pain. PHYSICAL EXAMINATION: GENERAL: Alert, awake, and oriented x3. VITAL SIGNS: Blood pressure 128/85, heart rate is 104, oxygen saturation is 99%, respiratory rate is 23, and temperature 98.4 degrees Fahrenheit. HEENT: PERRLA. NECK: Range of motion is full in all directions. No tenderness. No adenopathy. LUNGS: Clear bilaterally to auscultation. HEART: S1 and S2, regular. ABDOMEN: Benign. BACK: Range of motion is full on flexion and extension. No tenderness to paraspinous muscles, trapezius, or rhomboid muscles. EXTREMITIES: Upper extremity range of motion is full in all directions. No cyanosis. No clubbing. No edema. Sensory is intact. ROM decreased due to patient condition. Sensory is reduced. Right footdrop noted. Tenderness to palpation in the left foot at the base of his foot and not the heel. No cyanosis. No clubbing. ASSESSMENT AND PLAN: This is a 37-year-old male with polysubstance abuse, status post drug overdose, rhabdomyolysis, left foot pain, neuropathic pain, and right footdrop. The patient will be started on Neurontin 100 mg tablet 3 times a day with Lidoderm patch to be applied to the left foot at the site of the pain 12 hours on and 12 hours off. The patient was discussed with Dr. Vigil and Dr. Vigil concurred. We will follow the patient. Thank you very much for the courtesy of this consultation. Pavel Vigil M.D. DORINDA Ferris DR: FIDELIA JOB#: [id number] CC: [id number]
[2017-10-04 06:39] LABS: BASOPHILS % (AUTO) 1.3 % (0.0-2.0); EOSINOPHILS % (AUTO) 1.7 % (0.0-3.0); HEMATOCRIT 29.6 % (42.0-52.0); HEMOGLOBIN 9.8 G/DL (14.2-18.0); LYMPHOCYTES % (AUTO) 14.5 % (20.0-45.0); MEAN CORPUSCULAR VOLUME 95 FL (80-99); MONOCYTES % (AUTO) 8.2 % (1.0-10.0); NEUTROPHILS % (AUTO) 74.3 % (45.0-75.0); PLATELET COUNT 561 K/UL (150-450); RED BLOOD COUNT 3.11 M/UL (4.70-6.10); RED CELL DISTRIBUTION WIDTH 12.8 % (11.6-14.8); WHITE BLOOD COUNT 9.9 K/UL (4.8-10.8)
[2017-10-04 07:20] LABS: ANION GAP 12 mmol/L (5-15); BLOOD UREA NITROGEN 21 mg/dL (7-18); CALCIUM 9.3 MG/DL (8.5-10.1); CARBON DIOXIDE 25 MMOL/L (21-32); CHLORIDE 104 MMOL/L (98-107); POTASSIUM 4.1 MMOL/L (3.5-5.1); SODIUM 141 MMOL/L (136-145)
[2017-10-04 08:00] VITALS: BP 123/79
[2017-10-04] MEDS: Docusate 100mg cap ORAL SCH ×3 (08:31→17:00)
[2017-10-04 12:00] VITALS: BP 143/95
--- NOTE | 2017-10-04 12:04 | GI Progress Note ---
Assessment/Plan Problems: (1) Severe sepsis ICD Codes: A41.9 - Sepsis, unspecified organism; R65.20 - Severe sepsis without septic shock SNOMED: 98242735 (2) Rhabdomyolysis ICD Codes: M62.82 - Rhabdomyolysis SNOMED: 302615410 Qualifiers: Qualified Codes: T79.6XXA - Traumatic ischemia of muscle, initial encounter (3) Aspiration pneumonia ICD Codes: J69.0 - Pneumonitis due to inhalation of food and vomit SNOMED: 477229031 Qualifiers: Qualified Codes: J69.0 - Pneumonitis due to inhalation of food and vomit (4) Substance abuse ICD Codes: F19.10 - Other psychoactive substance abuse, uncomplicated SNOMED: 73688914 (5) Transaminitis ICD Codes: R74.0 - Nonspecific elevation of levels of transaminase and lactic acid dehydrogenase [LDH] SNOMED: 467946307, 731453521 Status: stable Status Narrative Discussed with Dr. Chavez. Assessment/Plan Hep A immunity Hep C positive, 2nd draw was negative transaminitis >> resolved cdiff negative stool culture >> gram negative bacillus elevated lipase >> now normal OB stool negative x2 supportive care prn transfusions change to regular diet, tolerating abx ppi fu labs dc planning The patient was seen and examined at bedside and all new and available data was reviewed in the patients chart. I agree with the above findings, impression and plan. (Patient seen earlier today. Signature stamp does not reflect patient encounter time.). - Efrain Chavez MD Subjective Subjective BLE weakness Objective Last 24 Hour Vital Signs Date Time Temp Pulse Resp B/P (MAP) Pulse Ox O2 Delivery O2 Flow Rate FiO2 10/04/17 10:00 123/79 10/04/17 09:00 Room Air 10/04/17 08:00 98.2 107 20 123/79 (94) 98 98.2 10/04/17 04:36 97.6 99 18 142/87 (105) 97 97.6 10/04/17 02:00 124/69 10/04/17 00:00 98.9 92 18 127/81 (96) 96 98.9 10/03/17 21:00 Room Air 10/03/17 20:00 99.5 91 18 137/93 (108) 97 99.5 10/03/17 18:00 128/85 10/03/17 16:00 98.4 104 23 128/85 (99) 97 98.4 Intake and Output 10/03/17 10/04/17 19:00 07:00 Intake Total 960 ml 360 ml Output Total 600 ml Balance 960 ml -240 ml Intake Oral 960 ml 360 ml Output Urine Total 600 ml # Voids 3 # Bowel Movements 1 Laboratory Tests Test 10/04/17 05:45 White Blood Count 9.9 K/UL (4.8-10.8) Red Blood Count 3.11 M/UL (4.70-6.10) L Hemoglobin 9.8 G/DL (14.2-18.0) L Hematocrit 29.6 % (42.0-52.0) L Mean Corpuscular Volume 95 FL (80-99) Mean Corpuscular Hemoglobin 31.6 PG (27.0-31.0) H Mean Corpuscular Hemoglobin Concent 33.2 G/DL (32.0-36.0) Red Cell Distribution Width 12.8 % (11.6-14.8) Platelet Count 561 K/UL (150-450) H Mean Platelet Volume 5.9 FL (6.5-10.1) L Neutrophils (%) (Auto) 74.3 % (45.0-75.0) Lymphocytes (%) (Auto) 14.5 % (20.0-45.0) L Monocytes (%) (Auto) 8.2 % (1.0-10.0) Eosinophils (%) (Auto) 1.7 % (0.0-3.0) Basophils (%) (Auto) 1.3 % (0.0-2.0) Sodium Level 141 MMOL/L (136-145) Potassium Level 4.1 MMOL/L (3.5-5.1) Chloride Level 104 MMOL/L (98-107) Carbon Dioxide Level 25 MMOL/L (21-32) Anion Gap 12 mmol/L (5-15) Blood Urea Nitrogen 21 mg/dL (7-18) H Creatinine 1.0 MG/DL (0.55-1.30) Estimat Glomerular Filtration Rate > 60 mL/min (>60) Glucose Level 120 MG/DL (74-106) H Calcium Level 9.3 MG/DL (8.5-10.1) Height (Feet): 5 Height (Inches): 5.00 Weight (Pounds): 149 General Appearance: WD/WN, no apparent distress, alert Cardiovascular: normal rate Respiratory/Chest: normal breath sounds, no respiratory distress Abdominal Exam: normal bowel sounds, non tender, soft Extremities: non-tender Carlos Lopez NP Oct 04, 2017 12:04
--- NOTE | 2017-10-04 13:46 | Nephrology Progress Note ---
Assessment/Plan Assessment 1.LUCRECIA resolved 2.Drug overdose 3.hypomagnesemia Plan replace electrolyte as need it monitoring renal function monitoring out put Subjective Subjective no complaints Objective Objective Last 24 Hour Vital Signs Date Time Temp Pulse Resp B/P (MAP) Pulse Ox O2 Delivery O2 Flow Rate FiO2 10/04/17 10:00 123/79 10/04/17 09:00 Room Air 10/04/17 08:00 98.2 107 20 123/79 (94) 98 98.2 10/04/17 04:36 97.6 99 18 142/87 (105) 97 97.6 10/04/17 02:00 124/69 10/04/17 00:00 98.9 92 18 127/81 (96) 96 98.9 10/03/17 21:00 Room Air 10/03/17 20:00 99.5 91 18 137/93 (108) 97 99.5 10/03/17 18:00 128/85 10/03/17 16:00 98.4 104 23 128/85 (99) 97 98.4 Intake and Output 10/03/17 10/04/17 19:00 07:00 Intake Total 960 ml 360 ml Output Total 600 ml Balance 960 ml -240 ml Intake Oral 960 ml 360 ml Output Urine Total 600 ml # Voids 3 # Bowel Movements 1 Laboratory Tests 10/04/17 05:45: White Blood Count 9.9, Red Blood Count 3.11L, Hemoglobin 9.8L, Hematocrit 29.6L , Mean Corpuscular Volume 95, Mean Corpuscular Hemoglobin 31.6H, Mean Corpuscular Hemoglobin Concent 33.2, Red Cell Distribution Width 12.8, Platelet Count 561H, Mean Platelet Volume 5.9L, Neutrophils (%) (Auto) 74.3, Lymphocytes (%) (Auto) 14.5L, Monocytes (%) (Auto) 8.2, Eosinophils (%) (Auto) 1.7, Basophils (%) (Auto) 1.3, Sodium Level 141, Potassium Level 4.1, Chloride Level 104, Carbon Dioxide Level 25, Anion Gap 12, Blood Urea Nitrogen 21H, Creatinine 1.0, Estimat Glomerular Filtration Rate > 60, Glucose Level 120H, Calcium Level 9.3 Height (Feet): 5 Height (Inches): 5.00 Weight (Pounds): 149 Objective HEAD AND NECK: No JVP. No LAD. G-tube is in place. Head is atraumatic and normocephalic. LUNGS: He has decreased breathing sounds on the both sides. CARDIAC: Regular rate and rhythm. S1 and S2. No murmur. No rub. ABDOMEN: Soft. Bowel sounds positive. EXTREMITIES: No edema. No clubbing. No cyanosis. Aixa Veloz MD Oct 04, 2017 13:46
--- NOTE | 2017-10-04 13:49 | General Progress Note ---
Assessment/Plan Problem List: (1) Substance abuse ICD Codes: F19.10 - Other psychoactive substance abuse, uncomplicated SNOMED: 49882496 (2) Respiratory failure ICD Codes: J96.90 - Respiratory failure, unspecified, unspecified whether with hypoxia or hypercapnia SNOMED: 061472611 Qualifiers: Qualified Codes: J96.01 - Acute respiratory failure with hypoxia (3) Rhabdomyolysis ICD Codes: M62.82 - Rhabdomyolysis SNOMED: 209834132 Qualifiers: Qualified Codes: T79.6XXA - Traumatic ischemia of muscle, initial encounter (4) NSTEMI (non-ST elevated myocardial infarction) ICD Codes: I21.4 - Non-ST elevation (NSTEMI) myocardial infarction SNOMED: 490036597 (5) LUCRECIA (acute kidney injury) ICD Codes: N17.9 - Acute kidney failure, unspecified SNOMED: 35435943 Status: stable, progressing Assessment/Plan ot pt diet abx neuro psyc eval cbc bmp am dc plan snf Subjective Constitutional: Reports: weakness Allergies: Coded Allergies: NO KNOWN ALLERGIES (Verified Allergy, Unknown, 09/02/17) All Systems: reviewed and negative except above Subjective calm in wc in room Objective Last 24 Hour Vital Signs Date Time Temp Pulse Resp B/P (MAP) Pulse Ox O2 Delivery O2 Flow Rate FiO2 10/04/17 10:00 123/79 10/04/17 09:00 Room Air 10/04/17 08:00 98.2 107 20 123/79 (94) 98 98.2 10/04/17 04:36 97.6 99 18 142/87 (105) 97 97.6 10/04/17 02:00 124/69 10/04/17 00:00 98.9 92 18 127/81 (96) 96 98.9 10/03/17 21:00 Room Air 10/03/17 20:00 99.5 91 18 137/93 (108) 97 99.5 10/03/17 18:00 128/85 10/03/17 16:00 98.4 104 23 128/85 (99) 97 98.4 Intake and Output 10/03/17 10/04/17 19:00 07:00 Intake Total 960 ml 360 ml Output Total 600 ml Balance 960 ml -240 ml Intake Oral 960 ml 360 ml Output Urine Total 600 ml # Voids 3 # Bowel Movements 1 Laboratory Tests 10/04/17 05:45: White Blood Count 9.9, Red Blood Count 3.11L, Hemoglobin 9.8L, Hematocrit 29.6L , Mean Corpuscular Volume 95, Mean Corpuscular Hemoglobin 31.6H, Mean Corpuscular Hemoglobin Concent 33.2, Red Cell Distribution Width 12.8, Platelet Count 561H, Mean Platelet Volume 5.9L, Neutrophils (%) (Auto) 74.3, Lymphocytes (%) (Auto) 14.5L, Monocytes (%) (Auto) 8.2, Eosinophils (%) (Auto) 1.7, Basophils (%) (Auto) 1.3, Sodium Level 141, Potassium Level 4.1, Chloride Level 104, Carbon Dioxide Level 25, Anion Gap 12, Blood Urea Nitrogen 21H, Creatinine 1.0, Estimat Glomerular Filtration Rate > 60, Glucose Level 120H, Calcium Level 9.3 Height (Feet): 5 Height (Inches): 5.00 Weight (Pounds): 149 General Appearance: alert EENT: normal ENT inspection Neck: normal alignment Cardiovascular: normal peripheral pulses, normal rate, regular rhythm Respiratory/Chest: chest wall non-tender, lungs clear, normal breath sounds Abdomen: normal bowel sounds, non tender, soft Extremities: normal inspection Edema: no edema noted Arm (L), no edema noted Arm (R), no edema noted Leg (L), no edema noted Leg (R), no edema noted Pedal (L), no edema noted Pedal (R), no edema noted Generalized Neurologic: responsive, motor weakness Skin: normal pigmentation, warm/dry Reid Anaya Oct 04, 2017 13:49
[2017-10-04 16:00] VITALS: BP 144/92
--- NOTE | 2017-10-04 17:44 | Infectious Diseases Prog Note ---
Assessment/Plan Assessment/Plan Assessment/Plan Leukocytosis,persistent ; now improving No source found - Pancreatitis ?, R gluteal hematoma vs liver abscess (doubt, no pain, clinically improved) -Bcx 09/27 Neg CXR: Increased pulmonary markings suggestive of congestion. Otherwise, no acute cardiopulmonary disease. -u/a wbc 5-10, nit neg, leuk +1; cx neg -Bcx NTD (09/05 abd 09/07) -2d Echo (limited but no vegetations seen) - No Veg on KATELYN 09/10/17 - Tagged WBCs no focal uptake - MRI pelvis 09/11/17 : Diffuse symmetric edema of the bilateral buttock musculature , ? Myositis Discrete 3 x 3 x 7.3 cm fluid collection in the lateral left buttock musculature 09/13 SP No purulent material aspirated. Only small amount of blood aspirated Cx : Negative Blood Cx 09/17/17 - Neg Urine Cx 09/18/17 - Low counts MDR ABC (colonizers) Fever:; resolving- source ? Rhabdo vs pancreatitis, R gluteal hemotoma - CT scan 09/19/17 - Interim development of what is probably a right buttock hematoma, measuring 6 x 3.5 by at least 11 cm, Worsening anasarca, Mild pulmonary groundglass opacity, likely represents pulmonary edema, 12 mm focus of low attenuation within the dome of the right hepatic lobe. Complex cyst , early hepatic abscess, less likely neoplasm given patient's age. Consider further evaluation with sonography to see if this is sonographically visible Diverticulosis. No evidence of diverticulitis -Cdiff neg -v/duplex no DVT -HIV ab sc and VL neg, RPR/FTA, GC/CL neg Aspiration PNA , s/p Rx -CXR 09/04 : Interim development of hazy interstitial and airspace disease in the right lung. This may to some extent be an artifact of less optimal inspiration, however. Interim extubation -sp cx normal ann; repeat sp cx MSSA -legionella ag urine neg Sp sepsis - L foot pain 2ry to cyst vs component of plantar fascitis; neuropathic pain component -MRI R foot: No acute or significant abnormality demonstrated. Small cyst, probably degenerative, at the base of the third metatarsal. Hep C +; VL ND -ABD US: Gallbladder sludge. Negative for gallstones or dilated ducts. Equivocal increased hepatic echogenicity, if real could indicate hepatocellular disease such as fatty change. Borderline hepatomegaly. Mildly increased renal echogenicity, could indicate medical renal disease. Correlate with renal function tests. Left pleural effusion -Hep A and B immune Drug overdose -UDS + opiates, amphetamines, THC, cocaine -+empty heroin needles (found on hotel room) Multiorgan failure -LUCRECIA, - on HD; now off HD, permacath removed 09/25 -Transaminitis, (shock liver); improving -VDRF (airway protection)- extubated 09/03 Lactic acidosis; resolved Rhabdomyolisis; improving Pancreatitis- drug induced -neg alcohol levels Encephalopathy - improved -CT head 09/04: Unusual scalp contusion, new since prior study 08/29/2017. No evidence of underlying calvarial trauma. Negative for acute intracranial bleed or mass effect Plan: Continue to monitor off abx unless increased fever, WBC 09/25 SP Dapto d#10, Merrem d#10, Micafungin #6 - 09/14/17 - SP IV Micafungin # 7 ( Emperic coverage of fungemia ) -09/14/17 - S/P IV Vanco and Zosyn # 9 -09/04 SP IV Azithromycin #3 -09/03 SP Zosyn #6 - Monitor CBC/CMP, temperatures - aspiration precautions - Monitor CK - Neuro,cardio, renal, GI f/u. -Podiatry, pain management f/u Subjective Allergies: Coded Allergies: NO KNOWN ALLERGIES (Verified Allergy, Unknown, 09/02/17) Subjective afebrile BCx NTD leukocytosis resolved started on low dose gapabentin Objective Vital Signs Last 24 Hour Vital Signs Date Time Temp Pulse Resp B/P (MAP) Pulse Ox O2 Delivery O2 Flow Rate FiO2 10/04/17 16:00 98.1 91 19 144/92 (109) 99 98.1 10/04/17 12:00 97.9 94 20 143/95 (111) 99 97.9 10/04/17 10:00 123/79 10/04/17 09:00 Room Air 10/04/17 08:00 98.2 107 20 123/79 (94) 98 98.2 10/04/17 04:36 97.6 99 18 142/87 (105) 97 97.6 10/04/17 02:00 124/69 10/04/17 00:00 98.9 92 18 127/81 (96) 96 98.9 10/03/17 21:00 Room Air 10/03/17 20:00 99.5 91 18 137/93 (108) 97 99.5 10/03/17 18:00 128/85 Height (Feet): 5 Height (Inches): 5.00 Weight (Pounds): 136 Objective General: intubated, restless HEENT: ETT in place Heart: RRR, no murmurs Lungs: CTA x2 ABD: S+D, ND, BS+ Extremity no edema or cellulitis Laboratory Tests Test 10/04/17 05:45 White Blood Count 9.9 K/UL (4.8-10.8) Red Blood Count 3.11 M/UL (4.70-6.10) L Hemoglobin 9.8 G/DL (14.2-18.0) L Hematocrit 29.6 % (42.0-52.0) L Mean Corpuscular Volume 95 FL (80-99) Mean Corpuscular Hemoglobin 31.6 PG (27.0-31.0) H Mean Corpuscular Hemoglobin Concent 33.2 G/DL (32.0-36.0) Red Cell Distribution Width 12.8 % (11.6-14.8) Platelet Count 561 K/UL (150-450) H Mean Platelet Volume 5.9 FL (6.5-10.1) L Neutrophils (%) (Auto) 74.3 % (45.0-75.0) Lymphocytes (%) (Auto) 14.5 % (20.0-45.0) L Monocytes (%) (Auto) 8.2 % (1.0-10.0) Eosinophils (%) (Auto) 1.7 % (0.0-3.0) Basophils (%) (Auto) 1.3 % (0.0-2.0) Sodium Level 141 MMOL/L (136-145) Potassium Level 4.1 MMOL/L (3.5-5.1) Chloride Level 104 MMOL/L (98-107) Carbon Dioxide Level 25 MMOL/L (21-32) Anion Gap 12 mmol/L (5-15) Blood Urea Nitrogen 21 mg/dL (7-18) H Creatinine 1.0 MG/DL (0.55-1.30) Estimat Glomerular Filtration Rate > 60 mL/min (>60) Glucose Level 120 MG/DL (74-106) H Calcium Level 9.3 MG/DL (8.5-10.1) Current Medications Medications (Trade) Dose Ordered Sig/Krystyna Route PRN Reason Start Time Stop Time Status Last Admin Dose Admin Acetaminophen (Tylenol) 650 mg Q4H PRN ORAL Fever (temp>100.5F) 09/05/17 18:30 10/05/17 18:29 10/02/17 20:54 Aluminum Hydroxide (Amphojel) 1,920 mg Q8H ORAL 10/03/17 09:00 11/02/17 08:59 10/04/17 08:21 Amlodipine Besylate (Norvasc) 2.5 mg DAILY ORAL 09/23/17 09:00 10/23/17 08:59 10/01/17 08:23 Clonidine HCl (Catapres Tab) 0.1 mg Q8H ORAL 09/17/17 18:00 10/10/17 03:59 10/03/17 01:33 Dextrose (Dextrose 50%) 25 ml STAT PRN IV Hypoglycemia 09/05/17 18:30 10/05/17 18:29 Dextrose (Dextrose 50%) 50 ml STAT PRN IV Hypoglycemia 09/05/17 18:30 10/05/17 18:29 Docusate Sodium (Colace) 100 mg TID ORAL 09/17/17 13:00 10/17/17 12:59 09/25/17 17:34 Epoetin Joel (Procrit (for non ESRD use)) 3,000 units SAT-SAT-SAT SUBQ 09/23/17 21:00 10/23/17 20:59 10/02/17 20:52 Gabapentin (Neurontin) 100 mg THREE TIMES A DAY ORAL 10/03/17 18:00 11/02/17 17:59 10/04/17 13:40 Lidocaine (Lidoderm 5% PATCH) 1 patch DAILY TDERMAL 10/04/17 09:00 11/03/17 08:59 10/04/17 08:19 Menthol/Methyl Salicylate (Bengay) 1 applic Q6H PRN TOPIC For Pain 09/28/17 14:15 10/28/17 14:14 09/29/17 21:13 Mirtazapine (Remeron) 15 mg BEDTIME ORAL 09/05/17 21:00 10/04/17 20:59 10/03/17 20:50 Pantoprazole (Protonix) 40 mg Q12HR ORAL 09/18/17 14:00 10/18/17 13:59 10/04/17 08:20 Potassium Chloride (K-Dur) 40 meq TWICE A DAY GT 09/22/17 18:00 10/22/17 17:59 09/29/17 08:27 Quetiapine Fumarate (SEROquel) 50 mg DAILY ORAL 09/17/17 09:00 10/17/17 08:59 10/01/17 08:22 Quetiapine Fumarate (SEROquel) 50 mg Q4H PRN ORAL agitation 09/10/17 14:00 10/10/17 13:59 09/18/17 01:47 Quetiapine Fumarate (SEROquel) 50 mg QLUNCH ORAL 09/17/17 11:30 10/17/17 11:29 09/27/17 11:34 Quetiapine Fumarate (SEROquel) 100 mg BEDTIME ORAL 09/16/17 21:00 10/16/17 20:59 10/03/17 20:50 Tamsulosin HCl (Flomax) 0.4 mg BEDTIME ORAL 09/20/17 12:00 10/20/17 11:59 10/03/17 20:50 Krystal Romero M.D. Oct 04, 2017 17:44
[2017-10-04 20:00] VITALS: BP 135/92
[2017-10-04] MEDS: Epogen (for non ESRD use) SUBQ SCH (20:16)
[2017-10-04] MEDS: Tamsulosin 0.4mg cap ORAL SCH (20:16)
--- NOTE | 2017-10-04 23:51 | Cardiology Progress Note ---
Assessment/Plan Assessment/Plan 1. Elevated troponin I level likely due to myocarditis, sepsis, or due to shock. Continue conservative management. 2. Sinus tachycardia, resolved, continue hydration. 3. HTN, well controlled, continue amlodipine. Subjective Subjective No cardiac events noted. Objective Last 24 Hour Vital Signs Date Time Temp Pulse Resp B/P (MAP) Pulse Ox O2 Delivery O2 Flow Rate FiO2 10/04/17 20:00 99.3 92 17 135/92 (106) 98 99.3 10/04/17 18:31 144/92 10/04/17 16:00 98.1 91 19 144/92 (109) 99 98.1 10/04/17 12:00 97.9 94 20 143/95 (111) 99 97.9 10/04/17 10:00 123/79 10/04/17 09:00 Room Air 10/04/17 08:00 98.2 107 20 123/79 (94) 98 98.2 10/04/17 04:36 97.6 99 18 142/87 (105) 97 97.6 10/04/17 02:00 124/69 10/04/17 00:00 98.9 92 18 127/81 (96) 96 98.9 Intake and Output 10/03/17 10/04/17 19:00 07:00 Intake Total 960 ml 360 ml Output Total 600 ml Balance 960 ml -240 ml Intake Oral 960 ml 360 ml Output Urine Total 600 ml # Voids 3 # Bowel Movements 1 2D Echo: KATELYN: Nl LV systolic & diastolic function, Mild MR, No vegetations, Nl RVSP Laboratory Tests Test 10/04/17 05:45 White Blood Count 9.9 K/UL (4.8-10.8) Red Blood Count 3.11 M/UL (4.70-6.10) L Hemoglobin 9.8 G/DL (14.2-18.0) L Hematocrit 29.6 % (42.0-52.0) L Mean Corpuscular Volume 95 FL (80-99) Mean Corpuscular Hemoglobin 31.6 PG (27.0-31.0) H Mean Corpuscular Hemoglobin Concent 33.2 G/DL (32.0-36.0) Red Cell Distribution Width 12.8 % (11.6-14.8) Platelet Count 561 K/UL (150-450) H Mean Platelet Volume 5.9 FL (6.5-10.1) L Neutrophils (%) (Auto) 74.3 % (45.0-75.0) Lymphocytes (%) (Auto) 14.5 % (20.0-45.0) L Monocytes (%) (Auto) 8.2 % (1.0-10.0) Eosinophils (%) (Auto) 1.7 % (0.0-3.0) Basophils (%) (Auto) 1.3 % (0.0-2.0) Sodium Level 141 MMOL/L (136-145) Potassium Level 4.1 MMOL/L (3.5-5.1) Chloride Level 104 MMOL/L (98-107) Carbon Dioxide Level 25 MMOL/L (21-32) Anion Gap 12 mmol/L (5-15) Blood Urea Nitrogen 21 mg/dL (7-18) H Creatinine 1.0 MG/DL (0.55-1.30) Estimat Glomerular Filtration Rate > 60 mL/min (>60) Glucose Level 120 MG/DL (74-106) H Calcium Level 9.3 MG/DL (8.5-10.1) Objective HEENT: Atraumatic and normocephalic. Pupils are equal, round, and reactive to light and accommodation. NECK: JVP cannot be assessed. CVS: Normal S1, S2, regular rate and rhythm, no murmurs, gallops, or rubs. LUNGS: Clear to auscultation bilaterally. ABDOMEN: Soft, nontender, and nondistended. No hepatosplenomegaly. Positive bowel sounds. EXTREMITIES: No evidence of edema, clubbing, or cyanosis. Right lower extremity with decrease in both motor and sensory function. Jorge Mcdonough MD Oct 04, 2017 23:51
[2017-10-05] VITALS: BP 128/87
[2017-10-05] MEDS: Aluminum Hydroxide Gel Susp 15ml ORAL SCH ×3 (01:00→17:22)
[2017-10-05 04:00] VITALS: BP 130/95
[2017-10-05 04:36] LABS: BASOPHILS % (AUTO) 1.8 % (0.0-2.0); EOSINOPHILS % (AUTO) 2.8 % (0.0-3.0); HEMATOCRIT 27.9 % (42.0-52.0); HEMOGLOBIN 9.3 G/DL (14.2-18.0); LYMPHOCYTES % (AUTO) 16.9 % (20.0-45.0); MEAN CORPUSCULAR VOLUME 94 FL (80-99); MONOCYTES % (AUTO) 9.1 % (1.0-10.0); NEUTROPHILS % (AUTO) 69.4 % (45.0-75.0); PLATELET COUNT 492 K/UL (150-450); RED BLOOD COUNT 2.96 M/UL (4.70-6.10); RED CELL DISTRIBUTION WIDTH 12.6 % (11.6-14.8); WHITE BLOOD COUNT 9.7 K/UL (4.8-10.8)
[2017-10-05 04:50] LABS: ANION GAP 8 mmol/L (5-15); BLOOD UREA NITROGEN 25 mg/dL (7-18); CALCIUM 9.6 MG/DL (8.5-10.1); CARBON DIOXIDE 29 MMOL/L (21-32); CHLORIDE 104 MMOL/L (98-107); CREATININE 1.1 MG/DL (0.55-1.30); POTASSIUM 4.2 MMOL/L (3.5-5.1); SODIUM 141 MMOL/L (136-145)
[2017-10-05 08:00] VITALS: BP 134/90
[2017-10-05] MEDS: Docusate 100mg cap ORAL SCH ×4 (09:00→17:27)
--- NOTE | 2017-10-05 10:31 | General Progress Note ---
Assessment/Plan Problem List: (1) Substance abuse ICD Codes: F19.10 - Other psychoactive substance abuse, uncomplicated SNOMED: 34441228 (2) Respiratory failure ICD Codes: J96.90 - Respiratory failure, unspecified, unspecified whether with hypoxia or hypercapnia SNOMED: 515592325 Qualifiers: Qualified Codes: J96.01 - Acute respiratory failure with hypoxia (3) Rhabdomyolysis ICD Codes: M62.82 - Rhabdomyolysis SNOMED: 552714835 Qualifiers: Qualified Codes: T79.6XXA - Traumatic ischemia of muscle, initial encounter (4) NSTEMI (non-ST elevated myocardial infarction) ICD Codes: I21.4 - Non-ST elevation (NSTEMI) myocardial infarction SNOMED: 827712073 (5) LUCRECIA (acute kidney injury) ICD Codes: N17.9 - Acute kidney failure, unspecified SNOMED: 48560747 Status: stable, progressing Assessment/Plan ot pt diet abx neuro psyc eval cbc bmp am dc plan snf Subjective Constitutional: Reports: weakness Allergies: Coded Allergies: NO KNOWN ALLERGIES (Verified Allergy, Unknown, 09/02/17) All Systems: reviewed and negative except above Subjective calm in bed Objective Last 24 Hour Vital Signs Date Time Temp Pulse Resp B/P (MAP) Pulse Ox O2 Delivery O2 Flow Rate FiO2 10/05/17 09:26 91 134/90 10/05/17 08:00 98.4 91 18 134/90 (105) 98 98.4 10/05/17 04:00 98.5 102 17 130/95 (107) 97 98.5 10/05/17 01:43 128/87 10/05/17 00:00 98.9 90 16 128/87 (101) 98.9 10/04/17 21:00 Room Air 10/04/17 20:00 99.3 92 17 135/92 (106) 98 99.3 10/04/17 18:31 144/92 10/04/17 16:00 98.1 91 19 144/92 (109) 99 98.1 10/04/17 12:00 97.9 94 20 143/95 (111) 99 97.9 Intake and Output 10/04/17 10/05/17 19:00 07:00 Intake Total 890 ml 500 ml Balance 890 ml 500 ml Intake Oral 890 ml 500 ml # Voids 3 # Bowel Movements 1 Laboratory Tests 10/05/17 04:00: White Blood Count 9.7, Red Blood Count 2.96L, Hemoglobin 9.3L, Hematocrit 27.9L , Mean Corpuscular Volume 94, Mean Corpuscular Hemoglobin 31.6H, Mean Corpuscular Hemoglobin Concent 33.4, Red Cell Distribution Width 12.6, Platelet Count 492H, Mean Platelet Volume 5.8L, Neutrophils (%) (Auto) 69.4, Lymphocytes (%) (Auto) 16.9L, Monocytes (%) (Auto) 9.1, Eosinophils (%) (Auto) 2.8, Basophils (%) (Auto) 1.8, Sodium Level 141, Potassium Level 4.2, Chloride Level 104, Carbon Dioxide Level 29, Anion Gap 8, Blood Urea Nitrogen 25H, Creatinine 1.1, Estimat Glomerular Filtration Rate > 60, Glucose Level 102, Calcium Level 9.6 Height (Feet): 5 Height (Inches): 5.00 Weight (Pounds): 135 General Appearance: alert EENT: normal ENT inspection Neck: normal alignment Cardiovascular: normal peripheral pulses, normal rate, regular rhythm Respiratory/Chest: chest wall non-tender, lungs clear, normal breath sounds Abdomen: normal bowel sounds, non tender, soft Extremities: normal inspection Edema: no edema noted Arm (L), no edema noted Arm (R), no edema noted Leg (L), no edema noted Leg (R), no edema noted Pedal (L), no edema noted Pedal (R), no edema noted Generalized Neurologic: responsive, motor weakness Skin: normal pigmentation, warm/dry Reid Anaya DO Oct 05, 2017 10:31
[2017-10-05 12:00] VITALS: BP 130/94
--- NOTE | 2017-10-05 13:05 | Infectious Diseases Prog Note ---
Assessment/Plan Assessment/Plan Leukocytosis, sp -Bcx 09/27 Neg CXR: Increased pulmonary markings suggestive of congestion. Otherwise, no acute cardiopulmonary disease. -u/a wbc 5-10, nit neg, leuk +1; cx neg -Bcx NTD (09/05 abd 09/07) -2d Echo (limited but no vegetations seen) - No Veg on KATELYN 09/10/17 - Tagged WBCs no focal uptake - MRI pelvis 09/11/17 : Diffuse symmetric edema of the bilateral buttock musculature , ? Myositis Discrete 3 x 3 x 7.3 cm fluid collection in the lateral left buttock musculature 09/13 SP No purulent material aspirated. Only small amount of blood aspirated Cx : Negative Blood Cx 09/17/17 - Neg Urine Cx 09/18/17 - Low counts MDR ABC (colonizers) Fever:; resolving- source ? Rhabdo vs pancreatitis, R gluteal hemotoma - CT scan 09/19/17 - Interim development of what is probably a right buttock hematoma, measuring 6 x 3.5 by at least 11 cm, Worsening anasarca, Mild pulmonary groundglass opacity, likely represents pulmonary edema, 12 mm focus of low attenuation within the dome of the right hepatic lobe. Complex cyst , early hepatic abscess, less likely neoplasm given patient's age. Consider further evaluation with sonography to see if this is sonographically visible Diverticulosis. No evidence of diverticulitis -Cdiff neg -v/duplex no DVT -HIV ab sc and VL neg, RPR/FTA, GC/CL neg Aspiration PNA , s/p Rx -CXR 09/04 : Interim development of hazy interstitial and airspace disease in the right lung. This may to some extent be an artifact of less optimal inspiration, however. Interim extubation -sp cx normal ann; repeat sp cx MSSA -legionella ag urine neg Sp sepsis - L foot pain 2ry to cyst vs component of plantar fascitis; neuropathic pain component -MRI R foot: No acute or significant abnormality demonstrated. Small cyst, probably degenerative, at the base of the third metatarsal. Hep C +; VL ND -ABD US: Gallbladder sludge. Negative for gallstones or dilated ducts. Equivocal increased hepatic echogenicity, if real could indicate hepatocellular disease such as fatty change. Borderline hepatomegaly. Mildly increased renal echogenicity, could indicate medical renal disease. Correlate with renal function tests. Left pleural effusion -Hep A and B immune Drug overdose -UDS + opiates, amphetamines, THC, cocaine -+empty heroin needles (found on hotel room) Multiorgan failure -LUCRECIA, - on HD; now off HD, permacath removed 09/25 -Transaminitis, (shock liver); improving -VDRF (airway protection)- extubated 09/03 Lactic acidosis; resolved Rhabdomyolisis; improving Pancreatitis- drug induced -neg alcohol levels Encephalopathy - improved -CT head 09/04: Unusual scalp contusion, new since prior study 08/29/2017. No evidence of underlying calvarial trauma. Negative for acute intracranial bleed or mass effect Plan: Continue to monitor off abx unless increased fever, WBC 09/25 SP Dapto d#10, Merrem d#10, Micafungin #6 - 09/14/17 - SP IV Micafungin # 7 ( Emperic coverage of fungemia ) -09/14/17 - S/P IV Vanco and Zosyn # 9 -09/04 SP IV Azithromycin #3 -09/03 SP Zosyn #6 - Monitor CBC/CMP, temperatures - aspiration precautions - Monitor CK - Neuro,cardio, renal, GI f/u. -Podiatry, pain management f/u Subjective Constitutional: Denies: no symptoms, fever, chills, fatigue, anorexia, drenching sweats, other Allergies: Coded Allergies: NO KNOWN ALLERGIES (Verified Allergy, Unknown, 09/02/17) Subjective .no new complain Objective Vital Signs Last 24 Hour Vital Signs Date Time Temp Pulse Resp B/P (MAP) Pulse Ox O2 Delivery O2 Flow Rate FiO2 10/05/17 12:00 99.1 98 18 130/94 (106) 99 99.1 10/05/17 10:59 136/98 10/05/17 09:26 91 134/90 10/05/17 09:00 Room Air 10/05/17 08:00 98.4 91 18 134/90 (105) 98 98.4 10/05/17 04:00 98.5 102 17 130/95 (107) 97 98.5 10/05/17 01:43 128/87 10/05/17 00:00 98.9 90 16 128/87 (101) 98.9 10/04/17 21:00 Room Air 10/04/17 20:00 99.3 92 17 135/92 (106) 98 99.3 10/04/17 18:31 144/92 10/04/17 16:00 98.1 91 19 144/92 (109) 99 98.1 Height (Feet): 5 Height (Inches): 5.00 Weight (Pounds): 135 HEENT: anicteric Respiratory/Chest: normal breath sounds Cardiovascular: regular rhythm Abdomen: no organomegaly Laboratory Tests Test 10/05/17 04:00 White Blood Count 9.7 K/UL (4.8-10.8) Red Blood Count 2.96 M/UL (4.70-6.10) L Hemoglobin 9.3 G/DL (14.2-18.0) L Hematocrit 27.9 % (42.0-52.0) L Mean Corpuscular Volume 94 FL (80-99) Mean Corpuscular Hemoglobin 31.6 PG (27.0-31.0) H Mean Corpuscular Hemoglobin Concent 33.4 G/DL (32.0-36.0) Red Cell Distribution Width 12.6 % (11.6-14.8) Platelet Count 492 K/UL (150-450) H Mean Platelet Volume 5.8 FL (6.5-10.1) L Neutrophils (%) (Auto) 69.4 % (45.0-75.0) Lymphocytes (%) (Auto) 16.9 % (20.0-45.0) L Monocytes (%) (Auto) 9.1 % (1.0-10.0) Eosinophils (%) (Auto) 2.8 % (0.0-3.0) Basophils (%) (Auto) 1.8 % (0.0-2.0) Sodium Level 141 MMOL/L (136-145) Potassium Level 4.2 MMOL/L (3.5-5.1) Chloride Level 104 MMOL/L (98-107) Carbon Dioxide Level 29 MMOL/L (21-32) Anion Gap 8 mmol/L (5-15) Blood Urea Nitrogen 25 mg/dL (7-18) H Creatinine 1.1 MG/DL (0.55-1.30) Estimat Glomerular Filtration Rate > 60 mL/min (>60) Glucose Level 102 MG/DL (74-106) Calcium Level 9.6 MG/DL (8.5-10.1) Current Medications Medications (Trade) Dose Ordered Sig/Krystyna Route PRN Reason Start Time Stop Time Status Last Admin Dose Admin Acetaminophen (Tylenol) 650 mg Q4H PRN ORAL Fever (temp>100.5F) 09/05/17 18:30 10/05/17 18:29 10/02/17 20:54 Aluminum Hydroxide (Amphojel) 1,920 mg Q8H ORAL 10/03/17 09:00 11/02/17 08:59 10/05/17 09:47 Amlodipine Besylate (Norvasc) 2.5 mg DAILY ORAL 09/23/17 09:00 10/23/17 08:59 10/05/17 09:26 Clonidine HCl (Catapres Tab) 0.1 mg Q8H ORAL 09/17/17 18:00 10/10/17 03:59 10/05/17 10:59 Dextrose (Dextrose 50%) 25 ml STAT PRN IV Hypoglycemia 09/05/17 18:30 10/05/17 18:29 Dextrose (Dextrose 50%) 50 ml STAT PRN IV Hypoglycemia 09/05/17 18:30 10/05/17 18:29 Docusate Sodium (Colace) 100 mg TID ORAL 09/17/17 13:00 10/17/17 12:59 09/25/17 17:34 Epoetin Joel (Procrit (for non ESRD use)) 3,000 units SAT-SAT-SAT SUBQ 09/23/17 21:00 10/23/17 20:59 10/04/17 20:16 Gabapentin (Neurontin) 100 mg THREE TIMES A DAY ORAL 10/03/17 18:00 11/02/17 17:59 10/05/17 12:20 Lidocaine (Lidoderm 5% PATCH) 1 patch DAILY TDERMAL 10/04/17 09:00 11/03/17 08:59 10/05/17 09:29 Menthol/Methyl Salicylate (Bengay) 1 applic Q6H PRN TOPIC For Pain 09/28/17 14:15 10/28/17 14:14 09/29/17 21:13 Pantoprazole (Protonix) 40 mg Q12HR ORAL 09/18/17 14:00 10/18/17 13:59 10/05/17 09:26 Potassium Chloride (K-Dur) 40 meq TWICE A DAY GT 09/22/17 18:00 10/22/17 17:59 09/29/17 08:27 Quetiapine Fumarate (SEROquel) 50 mg DAILY ORAL 09/17/17 09:00 10/17/17 08:59 10/01/17 08:22 Quetiapine Fumarate (SEROquel) 50 mg Q4H PRN ORAL agitation 09/10/17 14:00 10/10/17 13:59 09/18/17 01:47 Quetiapine Fumarate (SEROquel) 50 mg QLUNCH ORAL 09/17/17 11:30 10/17/17 11:29 09/27/17 11:34 Quetiapine Fumarate (SEROquel) 100 mg BEDTIME ORAL 09/16/17 21:00 10/16/17 20:59 10/04/17 20:15 Tamsulosin HCl (Flomax) 0.4 mg BEDTIME ORAL 09/20/17 12:00 10/20/17 11:59 10/04/17 20:16 Carl Carranza MD Oct 05, 2017 13:05
[2017-10-05 16:00] VITALS: BP 137/90
--- NOTE | 2017-10-05 18:07 | Nephrology Progress Note ---
Assessment/Plan Assessment 1.LUCRECIA resolved 2.Drug overdose 3.hypomagnesemia Plan replace electrolyte as need it monitoring renal function monitoring out put Subjective Subjective no complaints Objective Objective Last 24 Hour Vital Signs Date Time Temp Pulse Resp B/P (MAP) Pulse Ox O2 Delivery O2 Flow Rate FiO2 10/05/17 16:00 98.1 96 16 137/90 (106) 98 98.1 10/05/17 12:00 99.1 98 18 130/94 (106) 99 99.1 10/05/17 10:59 136/98 10/05/17 09:26 91 134/90 10/05/17 09:00 Room Air 10/05/17 08:00 98.4 91 18 134/90 (105) 98 98.4 10/05/17 04:00 98.5 102 17 130/95 (107) 97 98.5 10/05/17 01:43 128/87 10/05/17 00:00 98.9 90 16 128/87 (101) 98.9 10/04/17 21:00 Room Air 10/04/17 20:00 99.3 92 17 135/92 (106) 98 99.3 10/04/17 18:31 144/92 Intake and Output 10/04/17 10/05/17 19:00 07:00 Intake Total 890 ml 500 ml Balance 890 ml 500 ml Intake Oral 890 ml 500 ml # Voids 3 # Bowel Movements 1 Laboratory Tests 10/05/17 04:00: White Blood Count 9.7, Red Blood Count 2.96L, Hemoglobin 9.3L, Hematocrit 27.9L , Mean Corpuscular Volume 94, Mean Corpuscular Hemoglobin 31.6H, Mean Corpuscular Hemoglobin Concent 33.4, Red Cell Distribution Width 12.6, Platelet Count 492H, Mean Platelet Volume 5.8L, Neutrophils (%) (Auto) 69.4, Lymphocytes (%) (Auto) 16.9L, Monocytes (%) (Auto) 9.1, Eosinophils (%) (Auto) 2.8, Basophils (%) (Auto) 1.8, Sodium Level 141, Potassium Level 4.2, Chloride Level 104, Carbon Dioxide Level 29, Anion Gap 8, Blood Urea Nitrogen 25H, Creatinine 1.1, Estimat Glomerular Filtration Rate > 60, Glucose Level 102, Calcium Level 9.6 Height (Feet): 5 Height (Inches): 5.00 Weight (Pounds): 135 Objective HEAD AND NECK: No JVP. No LAD. G-tube is in place. Head is atraumatic and normocephalic. LUNGS: He has decreased breathing sounds on the both sides. CARDIAC: Regular rate and rhythm. S1 and S2. No murmur. No rub. ABDOMEN: Soft. Bowel sounds positive. EXTREMITIES: No edema. No clubbing. No cyanosis. Aixa Veloz MD Oct 05, 2017 18:07
[2017-10-05 20:00] VITALS: BP 141/97
[2017-10-05] MEDS: Tamsulosin 0.4mg cap ORAL SCH (21:09)
[2017-10-05] MEDS: Analgesic Balm 15gm TOPIC PRN (22:15)
--- NOTE | 2017-10-05 23:24 | Cardiology Progress Note ---
Assessment/Plan Assessment/Plan 1. Elevated troponin I level likely due to myocarditis, sepsis, or due to shock. Continue conservative management. 2. Sinus tachycardia, resolved, continue hydration. 3. HTN, well controlled, continue amlodipine. 4. Right gluteal hematoma 5. HCV infection. 6. Polysubstance abuse Subjective Subjective No cardiac events noted. Objective Last 24 Hour Vital Signs Date Time Temp Pulse Resp B/P (MAP) Pulse Ox O2 Delivery O2 Flow Rate FiO2 10/05/17 21:00 Room Air 10/05/17 20:00 97.7 96 18 141/97 (112) 98 97.7 10/05/17 19:03 137/90 10/05/17 16:00 98.1 96 16 137/90 (106) 98 98.1 10/05/17 12:00 99.1 98 18 130/94 (106) 99 99.1 10/05/17 10:59 136/98 10/05/17 09:26 91 134/90 10/05/17 09:00 Room Air 10/05/17 08:00 98.4 91 18 134/90 (105) 98 98.4 10/05/17 04:00 98.5 102 17 130/95 (107) 97 98.5 10/05/17 01:43 128/87 10/05/17 00:00 98.9 90 16 128/87 (101) 98.9 Intake and Output 10/04/17 10/05/17 19:00 07:00 Intake Total 890 ml 500 ml Balance 890 ml 500 ml Intake Oral 890 ml 500 ml # Voids 3 # Bowel Movements 1 2D Echo: KATELYN: Nl LV systolic & diastolic function, Mild MR, No vegetations, Nl RVSP Laboratory Tests Test 10/05/17 04:00 White Blood Count 9.7 K/UL (4.8-10.8) Red Blood Count 2.96 M/UL (4.70-6.10) L Hemoglobin 9.3 G/DL (14.2-18.0) L Hematocrit 27.9 % (42.0-52.0) L Mean Corpuscular Volume 94 FL (80-99) Mean Corpuscular Hemoglobin 31.6 PG (27.0-31.0) H Mean Corpuscular Hemoglobin Concent 33.4 G/DL (32.0-36.0) Red Cell Distribution Width 12.6 % (11.6-14.8) Platelet Count 492 K/UL (150-450) H Mean Platelet Volume 5.8 FL (6.5-10.1) L Neutrophils (%) (Auto) 69.4 % (45.0-75.0) Lymphocytes (%) (Auto) 16.9 % (20.0-45.0) L Monocytes (%) (Auto) 9.1 % (1.0-10.0) Eosinophils (%) (Auto) 2.8 % (0.0-3.0) Basophils (%) (Auto) 1.8 % (0.0-2.0) Sodium Level 141 MMOL/L (136-145) Potassium Level 4.2 MMOL/L (3.5-5.1) Chloride Level 104 MMOL/L (98-107) Carbon Dioxide Level 29 MMOL/L (21-32) Anion Gap 8 mmol/L (5-15) Blood Urea Nitrogen 25 mg/dL (7-18) H Creatinine 1.1 MG/DL (0.55-1.30) Estimat Glomerular Filtration Rate > 60 mL/min (>60) Glucose Level 102 MG/DL (74-106) Calcium Level 9.6 MG/DL (8.5-10.1) Objective HEENT: Atraumatic and normocephalic. Pupils are equal, round, and reactive to light and accommodation. NECK: JVP cannot be assessed. CVS: Normal S1, S2, regular rate and rhythm, no murmurs, gallops, or rubs. LUNGS: Clear to auscultation bilaterally. ABDOMEN: Soft, nontender, and nondistended. No hepatosplenomegaly. Positive bowel sounds. EXTREMITIES: No evidence of edema, clubbing, or cyanosis. Right lower extremity with decrease in both motor and sensory function. Jorge Mcdonough MD Oct 05, 2017 23:24
[2017-10-06] MEDS: Aluminum Hydroxide Gel Susp 15ml ORAL SCH ×3 (01:00→17:00)
[2017-10-06 04:00] VITALS: BP 127/79
[2017-10-06 07:55] LABS: BASOPHILS % (AUTO) 1.8 % (0.0-2.0); HEMATOCRIT 30.7 % (42.0-52.0); HEMOGLOBIN 9.9 G/DL (14.2-18.0); LYMPHOCYTES % (AUTO) 14.7 % (20.0-45.0); MEAN CORPUSCULAR VOLUME 95 FL (80-99); MONOCYTES % (AUTO) 9.7 % (1.0-10.0); NEUTROPHILS % (AUTO) 70.8 % (45.0-75.0); PLATELET COUNT 460 K/UL (150-450); RED BLOOD COUNT 3.22 M/UL (4.70-6.10); RED CELL DISTRIBUTION WIDTH 12.9 % (11.6-14.8); WHITE BLOOD COUNT 9.3 K/UL (4.8-10.8)
[2017-10-06 08:00] VITALS: BP 120/79
[2017-10-06 08:12] LABS: ANION GAP 9 mmol/L (5-15); BLOOD UREA NITROGEN 21 mg/dL (7-18); CALCIUM 9.7 MG/DL (8.5-10.1); CARBON DIOXIDE 28 MMOL/L (21-32); CHLORIDE 103 MMOL/L (98-107); POTASSIUM 4.3 MMOL/L (3.5-5.1); SODIUM 140 MMOL/L (136-145)
[2017-10-06] MEDS: Docusate 100mg cap ORAL SCH (09:00)
--- NOTE | 2017-10-06 09:43 | General Progress Note ---
Assessment/Plan Problem List: (1) Substance abuse ICD Codes: F19.10 - Other psychoactive substance abuse, uncomplicated SNOMED: 53352803 (2) Respiratory failure ICD Codes: J96.90 - Respiratory failure, unspecified, unspecified whether with hypoxia or hypercapnia SNOMED: 351096146 Qualifiers: Qualified Codes: J96.01 - Acute respiratory failure with hypoxia (3) Rhabdomyolysis ICD Codes: M62.82 - Rhabdomyolysis SNOMED: 102386195 Qualifiers: Qualified Codes: T79.6XXA - Traumatic ischemia of muscle, initial encounter (4) NSTEMI (non-ST elevated myocardial infarction) ICD Codes: I21.4 - Non-ST elevation (NSTEMI) myocardial infarction SNOMED: 261343853 (5) LUCRECIA (acute kidney injury) ICD Codes: N17.9 - Acute kidney failure, unspecified SNOMED: 92242999 Status: stable, progressing Assessment/Plan ot pt diet abx neuro psyc eval cbc bmp am dc plan snf Subjective Constitutional: Reports: weakness Allergies: Coded Allergies: NO KNOWN ALLERGIES (Verified Allergy, Unknown, 09/02/17) All Systems: reviewed and negative except above Subjective calm in bed Objective Last 24 Hour Vital Signs Date Time Temp Pulse Resp B/P (MAP) Pulse Ox O2 Delivery O2 Flow Rate FiO2 10/06/17 09:22 90 120/79 10/06/17 09:21 120/79 10/06/17 08:00 98.0 90 20 120/79 (93) 99 98.0 10/06/17 04:00 98.2 98 20 127/79 (95) 99 98.2 10/06/17 02:33 141/97 10/05/17 21:00 Room Air 10/05/17 20:00 97.7 96 18 141/97 (112) 98 97.7 10/05/17 19:03 137/90 10/05/17 16:00 98.1 96 16 137/90 (106) 98 98.1 10/05/17 12:00 99.1 98 18 130/94 (106) 99 99.1 10/05/17 10:59 136/98 Intake and Output 10/05/17 10/06/17 19:00 07:00 Intake Total 800 ml 600 ml Balance 800 ml 600 ml Intake Oral 800 ml 600 ml # Voids 2 # Bowel Movements 1 Laboratory Tests 10/06/17 06:45: White Blood Count 9.3, Red Blood Count 3.22L, Hemoglobin 9.9L, Hematocrit 30.7L , Mean Corpuscular Volume 95, Mean Corpuscular Hemoglobin 30.9, Mean Corpuscular Hemoglobin Concent 32.4, Red Cell Distribution Width 12.9, Platelet Count 460H, Mean Platelet Volume 5.8L, Neutrophils (%) (Auto) 70.8, Lymphocytes (%) (Auto) 14.7L, Monocytes (%) (Auto) 9.7, Eosinophils (%) (Auto) 3.0, Basophils (%) (Auto) 1.8, Sodium Level 140, Potassium Level 4.3, Chloride Level 103, Carbon Dioxide Level 28, Anion Gap 9, Blood Urea Nitrogen 21H, Creatinine 1.0, Estimat Glomerular Filtration Rate > 60, Glucose Level 98, Calcium Level 9.7 Height (Feet): 5 Height (Inches): 5.00 Weight (Pounds): 140 General Appearance: alert EENT: normal ENT inspection Neck: normal alignment Cardiovascular: normal peripheral pulses, normal rate, regular rhythm Respiratory/Chest: chest wall non-tender, lungs clear, normal breath sounds Abdomen: normal bowel sounds, non tender, soft Extremities: normal inspection Edema: no edema noted Arm (L), no edema noted Arm (R), no edema noted Leg (L), no edema noted Leg (R), no edema noted Pedal (L), no edema noted Pedal (R), no edema noted Generalized Neurologic: responsive, motor weakness Skin: normal pigmentation, warm/dry Reid Anaya DO Oct 06, 2017 09:43
--- NOTE | 2017-10-06 11:25 | General Progress Note ---
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 D/w Dr. Vigil and he concurred. Subjective Date patient seen: Oct 06, 2017 Time patient seen: 10:15 - AM Constitutional: Reports: no symptoms HEENT: Reports: no symptoms Cardiovascular: Reports: no symptoms Respiratory: Reports: no symptoms Gastrointestinal/Abdominal: Reports: no symptoms Genitourinary: Reports: no symptoms Neurologic/Psychiatric: Reports: headache, numbness, weakness Endocrine: Reports: no symptoms Hematologic/Lymphatic: Reports: no symptoms Allergies: Coded Allergies: NO KNOWN ALLERGIES (Verified Allergy, Unknown, 09/02/17) Subjective Patient is sitting in wheel chair and ready to start PT. He reports that the Neurontin has helped in reducing with his pain minimally with no c/o SE. Willing to increase it to 300mg TID. Objective Last 24 Hour Vital Signs Date Time Temp Pulse Resp B/P (MAP) Pulse Ox O2 Delivery O2 Flow Rate FiO2 10/06/17 09:22 90 120/79 10/06/17 09:21 120/79 10/06/17 09:00 Room Air 10/06/17 08:00 98.0 90 20 120/79 (93) 99 98.0 10/06/17 04:00 98.2 98 20 127/79 (95) 99 98.2 10/06/17 02:33 141/97 10/05/17 21:00 Room Air 10/05/17 20:00 97.7 96 18 141/97 (112) 98 97.7 10/05/17 19:03 137/90 10/05/17 16:00 98.1 96 16 137/90 (106) 98 98.1 10/05/17 12:00 99.1 98 18 130/94 (106) 99 99.1 Intake and Output 10/05/17 10/06/17 19:00 07:00 Intake Total 800 ml 600 ml Balance 800 ml 600 ml Intake Oral 800 ml 600 ml # Voids 2 # Bowel Movements 1 Laboratory Tests 10/06/17 06:45: White Blood Count 9.3, Red Blood Count 3.22L, Hemoglobin 9.9L, Hematocrit 30.7L , Mean Corpuscular Volume 95, Mean Corpuscular Hemoglobin 30.9, Mean Corpuscular Hemoglobin Concent 32.4, Red Cell Distribution Width 12.9, Platelet Count 460H, Mean Platelet Volume 5.8L, Neutrophils (%) (Auto) 70.8, Lymphocytes (%) (Auto) 14.7L, Monocytes (%) (Auto) 9.7, Eosinophils (%) (Auto) 3.0, Basophils (%) (Auto) 1.8, Sodium Level 140, Potassium Level 4.3, Chloride Level 103, Carbon Dioxide Level 28, Anion Gap 9, Blood Urea Nitrogen 21H, Creatinine 1.0, Estimat Glomerular Filtration Rate > 60, Glucose Level 98, Calcium Level 9.7 Height (Feet): 5 Height (Inches): 5.00 Weight (Pounds): 140 General Appearance: no apparent distress, alert EENT: PERRL/EOMI, normal ENT inspection Neck: normal alignment, supple Cardiovascular: normal rate, regular rhythm Respiratory/Chest: lungs clear, normal breath sounds Abdomen: normal bowel sounds, non tender, soft Extremities: non-tender - right foot drop noted Edema: no edema noted Arm (L), no edema noted Arm (R), no edema noted Leg (L), no edema noted Leg (R), no edema noted Pedal (L), no edema noted Pedal (R), no edema noted Generalized Neurologic: alert, oriented x 3 Skin: normal pigmentation Cruz Jean Oct 06, 2017 11:25
[2017-10-06 12:00] VITALS: BP 126/86
[2017-10-06 16:00] VITALS: BP 126/86
--- NOTE | 2017-10-06 18:15 | General Progress Note ---
Assessment/Plan Status: stable Assessment/Plan # Anemia of chronic disease. Anemia w/u has been reviewed. Will trend CBC daily. --> Continue to closely monitor for stability. --> Ferritin and tibc reviewed, consistent with anemia of chronic disease --> Hgb goal above >7 --> 8/5: 1 unit PRBC, 8/8: 1 unit, 8/9: 1 unit, --> CURRENT Hgb of 9.9, stable. --> given elev Cr, will start low dose epogen once a week dosing # Leukocytosis. due to infection, however no source is found. AFEBRILE --> Closely monitor for improvement. --> CURRENT WBC 9.3, stable. --> Pt has completed IV abx. --> Consider liver abscess if leukocytosis does not resolve. # Thrombocytosis. Likely reactive process to anemia --> Closely monitor PLT count for improvement. --> should improve with improvement in anemia as well --> CURRENT PLT count of 460, elevated. # Transaminitis. Improved. The time the note was entered does not necessarily correspond to the time the patient was seen. Subjective Date patient seen: Oct 06, 2017 ROS Limited/Unobtainable: Yes Hematologic/Lymphatic: Reports: anemia Allergies: Coded Allergies: NO KNOWN ALLERGIES (Verified Allergy, Unknown, 09/02/17) All Systems: reviewed and negative except above Subjective Pt awake and alert. No acute events. H/H stable. Pt c/o pain. Objective Last 24 Hour Vital Signs Date Time Temp Pulse Resp B/P (MAP) Pulse Ox O2 Delivery O2 Flow Rate FiO2 10/06/17 16:00 98.7 87 20 126/86 (99) 99 98.7 10/06/17 12:00 98.7 87 20 126/86 (99) 99 98.7 10/06/17 09:22 90 120/79 10/06/17 09:21 120/79 10/06/17 09:00 Room Air 10/06/17 08:00 98.0 90 20 120/79 (93) 99 98.0 10/06/17 04:00 98.2 98 20 127/79 (95) 99 98.2 10/06/17 02:33 141/97 10/05/17 21:00 Room Air 10/05/17 20:00 97.7 96 18 141/97 (112) 98 97.7 10/05/17 19:03 137/90 Intake and Output 10/05/17 10/06/17 19:00 07:00 Intake Total 800 ml 600 ml Balance 800 ml 600 ml Intake Oral 800 ml 600 ml # Voids 2 # Bowel Movements 1 Laboratory Tests 10/06/17 06:45: White Blood Count 9.3, Red Blood Count 3.22L, Hemoglobin 9.9L, Hematocrit 30.7L , Mean Corpuscular Volume 95, Mean Corpuscular Hemoglobin 30.9, Mean Corpuscular Hemoglobin Concent 32.4, Red Cell Distribution Width 12.9, Platelet Count 460H, Mean Platelet Volume 5.8L, Neutrophils (%) (Auto) 70.8, Lymphocytes (%) (Auto) 14.7L, Monocytes (%) (Auto) 9.7, Eosinophils (%) (Auto) 3.0, Basophils (%) (Auto) 1.8, Sodium Level 140, Potassium Level 4.3, Chloride Level 103, Carbon Dioxide Level 28, Anion Gap 9, Blood Urea Nitrogen 21H, Creatinine 1.0, Estimat Glomerular Filtration Rate > 60, Glucose Level 98, Calcium Level 9.7 Height (Feet): 5 Height (Inches): 5.00 Weight (Pounds): 140 General Appearance: no apparent distress EENT: PERRL/EOMI Neck: normal alignment Cardiovascular: normal peripheral pulses Respiratory/Chest: no respiratory distress Abdomen: soft Diogenes Flores MD Oct 06, 2017 18:15
[2017-10-06 20:00] VITALS: BP 130/77
[2017-10-06] MEDS: Tamsulosin 0.4mg cap ORAL SCH (20:17)
--- NOTE | 2017-10-06 23:05 | Nephrology Progress Note ---
Assessment/Plan Assessment 1.LUCRECIA resolved 2.Drug overdose 3.hypomagnesemia Plan replace electrolyte as need it monitoring renal function monitoring out put Subjective Subjective no complaints Objective Objective Last 24 Hour Vital Signs Date Time Temp Pulse Resp B/P (MAP) Pulse Ox O2 Delivery O2 Flow Rate FiO2 10/06/17 21:00 Room Air 10/06/17 20:00 98.2 103 20 130/77 (94) 98 98.2 10/06/17 18:00 126/86 10/06/17 16:00 98.7 87 20 126/86 (99) 99 98.7 10/06/17 12:00 98.7 87 20 126/86 (99) 99 98.7 10/06/17 09:22 90 120/79 10/06/17 09:21 120/79 10/06/17 09:00 Room Air 10/06/17 08:00 98.0 90 20 120/79 (93) 99 98.0 10/06/17 04:00 98.2 98 20 127/79 (95) 99 98.2 10/06/17 02:33 141/97 Intake and Output 10/05/17 10/06/17 19:00 07:00 Intake Total 800 ml 600 ml Balance 800 ml 600 ml Intake Oral 800 ml 600 ml # Voids 2 # Bowel Movements 1 Laboratory Tests 10/06/17 06:45: White Blood Count 9.3, Red Blood Count 3.22L, Hemoglobin 9.9L, Hematocrit 30.7L , Mean Corpuscular Volume 95, Mean Corpuscular Hemoglobin 30.9, Mean Corpuscular Hemoglobin Concent 32.4, Red Cell Distribution Width 12.9, Platelet Count 460H, Mean Platelet Volume 5.8L, Neutrophils (%) (Auto) 70.8, Lymphocytes (%) (Auto) 14.7L, Monocytes (%) (Auto) 9.7, Eosinophils (%) (Auto) 3.0, Basophils (%) (Auto) 1.8, Sodium Level 140, Potassium Level 4.3, Chloride Level 103, Carbon Dioxide Level 28, Anion Gap 9, Blood Urea Nitrogen 21H, Creatinine 1.0, Estimat Glomerular Filtration Rate > 60, Glucose Level 98, Calcium Level 9.7 Height (Feet): 5 Height (Inches): 5.00 Weight (Pounds): 140 Objective HEAD AND NECK: No JVP. No LAD. G-tube is in place. Head is atraumatic and normocephalic. LUNGS: He has decreased breathing sounds on the both sides. CARDIAC: Regular rate and rhythm. S1 and S2. No murmur. No rub. ABDOMEN: Soft. Bowel sounds positive. EXTREMITIES: No edema. No clubbing. No cyanosis. Aixa Veloz MD Oct 06, 2017 23:05
--- NOTE | 2017-10-06 23:10 | Cardiology Progress Note ---
Assessment/Plan Assessment/Plan 1. Elevated troponin I level likely due to myocarditis, sepsis, or due to shock. Continue conservative management. 2. Sinus tachycardia, resolved, continue hydration. 3. HTN, well controlled, continue amlodipine. 4. Right gluteal hematoma 5. HCV infection. 6. Polysubstance abuse 7. Anemia Subjective Subjective No cardiac events noted. Clinically the same. Objective Last 24 Hour Vital Signs Date Time Temp Pulse Resp B/P (MAP) Pulse Ox O2 Delivery O2 Flow Rate FiO2 10/06/17 21:00 Room Air 10/06/17 20:00 98.2 103 20 130/77 (94) 98 98.2 10/06/17 18:00 126/86 10/06/17 16:00 98.7 87 20 126/86 (99) 99 98.7 10/06/17 12:00 98.7 87 20 126/86 (99) 99 98.7 10/06/17 09:22 90 120/79 10/06/17 09:21 120/79 10/06/17 09:00 Room Air 10/06/17 08:00 98.0 90 20 120/79 (93) 99 98.0 10/06/17 04:00 98.2 98 20 127/79 (95) 99 98.2 10/06/17 02:33 141/97 Intake and Output 10/05/17 10/06/17 19:00 07:00 Intake Total 800 ml 600 ml Balance 800 ml 600 ml Intake Oral 800 ml 600 ml # Voids 2 # Bowel Movements 1 2D Echo: KATELYN: Nl LV systolic & diastolic function, Mild MR, No vegetations, Nl RVSP Laboratory Tests Test 10/06/17 06:45 White Blood Count 9.3 K/UL (4.8-10.8) Red Blood Count 3.22 M/UL (4.70-6.10) L Hemoglobin 9.9 G/DL (14.2-18.0) L Hematocrit 30.7 % (42.0-52.0) L Mean Corpuscular Volume 95 FL (80-99) Mean Corpuscular Hemoglobin 30.9 PG (27.0-31.0) Mean Corpuscular Hemoglobin Concent 32.4 G/DL (32.0-36.0) Red Cell Distribution Width 12.9 % (11.6-14.8) Platelet Count 460 K/UL (150-450) H Mean Platelet Volume 5.8 FL (6.5-10.1) L Neutrophils (%) (Auto) 70.8 % (45.0-75.0) Lymphocytes (%) (Auto) 14.7 % (20.0-45.0) L Monocytes (%) (Auto) 9.7 % (1.0-10.0) Eosinophils (%) (Auto) 3.0 % (0.0-3.0) Basophils (%) (Auto) 1.8 % (0.0-2.0) Sodium Level 140 MMOL/L (136-145) Potassium Level 4.3 MMOL/L (3.5-5.1) Chloride Level 103 MMOL/L (98-107) Carbon Dioxide Level 28 MMOL/L (21-32) Anion Gap 9 mmol/L (5-15) Blood Urea Nitrogen 21 mg/dL (7-18) H Creatinine 1.0 MG/DL (0.55-1.30) Estimat Glomerular Filtration Rate > 60 mL/min (>60) Glucose Level 98 MG/DL (74-106) Calcium Level 9.7 MG/DL (8.5-10.1) Objective HEENT: Atraumatic and normocephalic. Pupils are equal, round, and reactive to light and accommodation. NECK: JVP cannot be assessed. CVS: Normal S1, S2, regular rate and rhythm, no murmurs, gallops, or rubs. LUNGS: Clear to auscultation bilaterally. ABDOMEN: Soft, nontender, and nondistended. No hepatosplenomegaly. Positive bowel sounds. EXTREMITIES: No evidence of edema, clubbing, or cyanosis. Right lower extremity with decrease in both motor and sensory function. Jorge Mcdonough MD Oct 06, 2017 23:10
[2017-10-07] MEDS: Aluminum Hydroxide Gel Susp 15ml ORAL SCH ×2 (03:28→08:40)
[2017-10-07 04:00] VITALS: BP 126/88
[2017-10-07 08:00] VITALS: BP 128/89
[2017-10-07 08:49] LABS: BASOPHILS % (AUTO) 1.1 % (0.0-2.0); EOSINOPHILS % (AUTO) 3.2 % (0.0-3.0); LYMPHOCYTES % (AUTO) 17.6 % (20.0-45.0); MEAN CORPUSCULAR VOLUME 96 FL (80-99); MONOCYTES % (AUTO) 7.5 % (1.0-10.0); NEUTROPHILS % (AUTO) 70.7 % (45.0-75.0); PLATELET COUNT 480 K/UL (150-450); RED BLOOD COUNT 3.44 M/UL (4.70-6.10); RED CELL DISTRIBUTION WIDTH 13.2 % (11.6-14.8); WHITE BLOOD COUNT 9.4 K/UL (4.8-10.8)
[2017-10-07 09:21] LABS: ANION GAP 12 mmol/L (5-15); BLOOD UREA NITROGEN 21 mg/dL (7-18); CALCIUM 9.7 MG/DL (8.5-10.1); CARBON DIOXIDE 25 MMOL/L (21-32); CHLORIDE 102 MMOL/L (98-107); CREATININE 0.8 MG/DL (0.55-1.30); SODIUM 139 MMOL/L (136-145)
--- NOTE | 2017-10-07 10:27 | GI Progress Note ---
Assessment/Plan Problems: (1) Severe sepsis ICD Codes: A41.9 - Sepsis, unspecified organism; R65.20 - Severe sepsis without septic shock SNOMED: 66544911 (2) Rhabdomyolysis ICD Codes: M62.82 - Rhabdomyolysis SNOMED: 329243582 Qualifiers: Qualified Codes: T79.6XXA - Traumatic ischemia of muscle, initial encounter (3) Aspiration pneumonia ICD Codes: J69.0 - Pneumonitis due to inhalation of food and vomit SNOMED: 839755638 Qualifiers: Qualified Codes: J69.0 - Pneumonitis due to inhalation of food and vomit (4) Substance abuse ICD Codes: F19.10 - Other psychoactive substance abuse, uncomplicated SNOMED: 82757704 (5) Transaminitis ICD Codes: R74.0 - Nonspecific elevation of levels of transaminase and lactic acid dehydrogenase [LDH] SNOMED: 588243671, 356404223 Status: stable Status Narrative Discussed with Dr. Chavez. Assessment/Plan Hep A immunity Hep C positive, 2nd draw was negative transaminitis >> resolved cdiff negative stool culture >> gram negative bacillus elevated lipase >> now normal OB stool negative x2 supportive care prn transfusions change to regular diet, tolerating abx ppi fu labs dc planning The patient was seen and examined at bedside and all new and available data was reviewed in the patients chart. I agree with the above findings, impression and plan. (Patient seen earlier today. Signature stamp does not reflect patient encounter time.). - Efrain Chavez MD Subjective Subjective BLE weakness Objective Last 24 Hour Vital Signs Date Time Temp Pulse Resp B/P (MAP) Pulse Ox O2 Delivery O2 Flow Rate FiO2 10/07/17 10:00 128/89 10/07/17 08:39 100 128/89 10/07/17 08:00 98.4 100 20 128/89 (102) 97 98.4 10/07/17 04:00 98.7 94 20 126/88 (101) 97 98.7 10/07/17 03:28 130/77 10/06/17 21:00 Room Air 10/06/17 20:00 98.2 103 20 130/77 (94) 98 98.2 10/06/17 18:00 126/86 10/06/17 16:00 98.7 87 20 126/86 (99) 99 98.7 10/06/17 12:00 98.7 87 20 126/86 (99) 99 98.7 Intake and Output 10/06/17 10/07/17 19:00 07:00 Intake Total 1000 ml 500 ml Output Total 300 ml Balance 1000 ml 200 ml Intake Oral 1000 ml 500 ml Output Urine Total 300 ml # Voids 2 Laboratory Tests Test 10/07/17 07:40 White Blood Count 9.4 K/UL (4.8-10.8) Red Blood Count 3.44 M/UL (4.70-6.10) L Hemoglobin 11.0 G/DL (14.2-18.0) L Hematocrit 33.0 % (42.0-52.0) L Mean Corpuscular Volume 96 FL (80-99) Mean Corpuscular Hemoglobin 31.9 PG (27.0-31.0) H Mean Corpuscular Hemoglobin Concent 33.4 G/DL (32.0-36.0) Red Cell Distribution Width 13.2 % (11.6-14.8) Platelet Count 480 K/UL (150-450) H Mean Platelet Volume 5.9 FL (6.5-10.1) L Neutrophils (%) (Auto) 70.7 % (45.0-75.0) Lymphocytes (%) (Auto) 17.6 % (20.0-45.0) L Monocytes (%) (Auto) 7.5 % (1.0-10.0) Eosinophils (%) (Auto) 3.2 % (0.0-3.0) H Basophils (%) (Auto) 1.1 % (0.0-2.0) Sodium Level 139 MMOL/L (136-145) Potassium Level 4.0 MMOL/L (3.5-5.1) Chloride Level 102 MMOL/L (98-107) Carbon Dioxide Level 25 MMOL/L (21-32) Anion Gap 12 mmol/L (5-15) Blood Urea Nitrogen 21 mg/dL (7-18) H Creatinine 0.8 MG/DL (0.55-1.30) Estimat Glomerular Filtration Rate > 60 mL/min (>60) Glucose Level 137 MG/DL (74-106) H Calcium Level 9.7 MG/DL (8.5-10.1) Height (Feet): 5 Height (Inches): 5.00 Weight (Pounds): 146 General Appearance: WD/WN, no apparent distress, alert Cardiovascular: normal rate Respiratory/Chest: normal breath sounds, no respiratory distress Abdominal Exam: normal bowel sounds, non tender, soft Extremities: non-tender Carlos Lopez NP Oct 07, 2017 10:27
[2017-10-07 12:00] VITALS: BP 135/89
[2017-10-07] MEDS ORDERED: NORVASC2.5 MG ORAL (12:54)
[2017-10-07] MEDS ORDERED: NEURONTIN300 MG ORAL (12:54)
[2017-10-07] MEDS ORDERED: SEROQUEL100 MG ORAL (12:54)
[2017-10-07] MEDS ORDERED: SEROQUEL25 MG ORAL (12:54)
--- NOTE | 2017-10-07 12:56 | Pulmonology Progress Note ---
Assessment/Plan Problems: (1) Respiratory failure Assessment & Plan: improved (2) LUCRECIA (acute kidney injury) (3) Severe sepsis (4) Overdose Assessment/Plan renal failure improving off dialysis ready to go home pt/ot prescription written Subjective ROS Limited/Unobtainable: No Allergies: Coded Allergies: NO KNOWN ALLERGIES (Verified Allergy, Unknown, 09/02/17) Objective Last 24 Hour Vital Signs Date Time Temp Pulse Resp B/P (MAP) Pulse Ox O2 Delivery O2 Flow Rate FiO2 10/07/17 12:00 97.6 105 20 135/89 (104) 97 97.6 10/07/17 10:00 128/89 10/07/17 09:00 Room Air 10/07/17 08:39 100 128/89 10/07/17 08:00 98.4 100 20 128/89 (102) 97 98.4 10/07/17 04:00 98.7 94 20 126/88 (101) 97 98.7 10/07/17 03:28 130/77 10/06/17 21:00 Room Air 10/06/17 20:00 98.2 103 20 130/77 (94) 98 98.2 10/06/17 18:00 126/86 10/06/17 16:00 98.7 87 20 126/86 (99) 99 98.7 Intake and Output 10/06/17 10/07/17 19:00 07:00 Intake Total 1000 ml 500 ml Output Total 300 ml Balance 1000 ml 200 ml Intake Oral 1000 ml 500 ml Output Urine Total 300 ml # Voids 2 General Appearance: WD/WN HEENT: normocephalic, atraumatic Respiratory/Chest: chest wall non-tender, normal breath sounds Cardiovascular: normal rate, regular rhythm Abdomen: soft, non tender, non distended Skin: no rash, no ulcers Neurologic/Psychiatric: no motor/sensory deficits Lymphatic: no neck adenopathy, no groin adenopathy Musculoskeletal: normal muscle bulk Laboratory Tests 10/07/17 07:40: White Blood Count 9.4, Red Blood Count 3.44L, Hemoglobin 11.0L, Hematocrit 33.0L , Mean Corpuscular Volume 96, Mean Corpuscular Hemoglobin 31.9H, Mean Corpuscular Hemoglobin Concent 33.4, Red Cell Distribution Width 13.2, Platelet Count 480H, Mean Platelet Volume 5.9L, Neutrophils (%) (Auto) 70.7, Lymphocytes (%) (Auto) 17.6L, Monocytes (%) (Auto) 7.5, Eosinophils (%) (Auto) 3.2H, Basophils (%) (Auto) 1.1, Sodium Level 139, Potassium Level 4.0, Chloride Level 102, Carbon Dioxide Level 25, Anion Gap 12, Blood Urea Nitrogen 21H, Creatinine 0.8, Estimat Glomerular Filtration Rate > 60, Glucose Level 137H, Calcium Level 9.7 Current Medications Medications (Trade) Dose Ordered Sig/Krystyna Route PRN Reason Start Time Stop Time Status Last Admin Dose Admin Acetaminophen (Tylenol) 650 mg Q4H PRN ORAL Mild Pain/Temp > 100.5 10/06/17 11:15 11/05/17 11:14 10/07/17 08:40 Aluminum Hydroxide (Amphojel) 1,920 mg Q8H ORAL 10/03/17 09:00 11/02/17 08:59 10/07/17 08:40 Amlodipine Besylate (Norvasc) 2.5 mg DAILY ORAL 09/23/17 09:00 10/23/17 08:59 10/07/17 08:39 Clonidine HCl (Catapres Tab) 0.1 mg Q8H ORAL 09/17/17 18:00 10/10/17 03:59 10/07/17 03:28 Epoetin Joel (Procrit (for non ESRD use)) 3,000 units SAT-SAT-SAT SUBQ 09/23/17 21:00 10/23/17 20:59 10/04/17 20:16 Gabapentin (Neurontin) 300 mg THREE TIMES A DAY ORAL 10/06/17 13:00 11/02/17 17:59 10/07/17 12:15 Lidocaine (Lidoderm 5% PATCH) 1 patch DAILY TDERMAL 10/04/17 09:00 11/03/17 08:59 10/07/17 08:41 Menthol/Methyl Salicylate (Bengay) 1 applic Q6H PRN TOPIC For Pain 09/28/17 14:15 10/28/17 14:14 10/05/17 22:15 Pantoprazole (Protonix) 40 mg Q12HR ORAL 09/18/17 14:00 10/18/17 13:59 10/07/17 08:39 Quetiapine Fumarate (SEROquel) 50 mg DAILY ORAL 09/17/17 09:00 10/17/17 08:59 10/01/17 08:22 Quetiapine Fumarate (SEROquel) 50 mg Q4H PRN ORAL agitation 09/10/17 14:00 10/10/17 13:59 09/18/17 01:47 Quetiapine Fumarate (SEROquel) 50 mg QLUNCH ORAL 09/17/17 11:30 10/17/17 11:29 09/27/17 11:34 Quetiapine Fumarate (SEROquel) 100 mg BEDTIME ORAL 09/16/17 21:00 10/16/17 20:59 10/06/17 20:17 Tamsulosin HCl (Flomax) 0.4 mg BEDTIME ORAL 09/20/17 12:00 10/20/17 11:59 10/06/17 20:17 Arpita Andre MD Oct 07, 2017 12:56
--- NOTE | 2017-10-07 13:05 | Infectious Diseases Prog Note ---
Assessment/Plan Assessment/Plan Leukocytosis, sp -Bcx 09/27 Neg CXR: Increased pulmonary markings suggestive of congestion. Otherwise, no acute cardiopulmonary disease. -u/a wbc 5-10, nit neg, leuk +1; cx neg -Bcx NTD (09/05 abd 09/07) -2d Echo (limited but no vegetations seen) - No Veg on KATELYN 09/10/17 - Tagged WBCs no focal uptake - MRI pelvis 09/11/17 : Diffuse symmetric edema of the bilateral buttock musculature , ? Myositis Discrete 3 x 3 x 7.3 cm fluid collection in the lateral left buttock musculature 09/13 SP No purulent material aspirated. Only small amount of blood aspirated Cx : Negative Blood Cx 09/17/17 - Neg Urine Cx 09/18/17 - Low counts MDR ABC (colonizers) Fever:; resolving- source ? Rhabdo vs pancreatitis, R gluteal hemotoma - CT scan 09/19/17 - Interim development of what is probably a right buttock hematoma, measuring 6 x 3.5 by at least 11 cm, Worsening anasarca, Mild pulmonary groundglass opacity, likely represents pulmonary edema, 12 mm focus of low attenuation within the dome of the right hepatic lobe. Complex cyst , early hepatic abscess, less likely neoplasm given patient's age. Consider further evaluation with sonography to see if this is sonographically visible Diverticulosis. No evidence of diverticulitis -Cdiff neg -v/duplex no DVT -HIV ab sc and VL neg, RPR/FTA, GC/CL neg Aspiration PNA , s/p Rx -CXR 09/04 : Interim development of hazy interstitial and airspace disease in the right lung. This may to some extent be an artifact of less optimal inspiration, however. Interim extubation -sp cx normal ann; repeat sp cx MSSA -legionella ag urine neg Sp sepsis - L foot pain 2ry to cyst vs component of plantar fascitis; neuropathic pain component -MRI R foot: No acute or significant abnormality demonstrated. Small cyst, probably degenerative, at the base of the third metatarsal. Hep C +; VL ND -ABD US: Gallbladder sludge. Negative for gallstones or dilated ducts. Equivocal increased hepatic echogenicity, if real could indicate hepatocellular disease such as fatty change. Borderline hepatomegaly. Mildly increased renal echogenicity, could indicate medical renal disease. Correlate with renal function tests. Left pleural effusion -Hep A and B immune Drug overdose -UDS + opiates, amphetamines, THC, cocaine -+empty heroin needles (found on hotel room) Multiorgan failure -LUCRECIA, - on HD; now off HD, permacath removed 09/25 -Transaminitis, (shock liver); improving -VDRF (airway protection)- extubated 09/03 Lactic acidosis; resolved Rhabdomyolisis; improving Pancreatitis- drug induced -neg alcohol levels Encephalopathy - improved -CT head 09/04: Unusual scalp contusion, new since prior study 08/29/2017. No evidence of underlying calvarial trauma. Negative for acute intracranial bleed or mass effect Plan: Continue to monitor off abx unless increased fever, WBC 09/25 SP Dapto d#10, Merrem d#10, Micafungin #6 - 09/14/17 - SP IV Micafungin # 7 ( Emperic coverage of fungemia ) -09/14/17 - S/P IV Vanco and Zosyn # 9 -09/04 SP IV Azithromycin #3 -09/03 SP Zosyn #6 - Monitor CBC/CMP, temperatures - aspiration precautions - Monitor CK - Neuro,cardio, renal, GI f/u. -Podiatry, pain management f/u Subjective Allergies: Coded Allergies: NO KNOWN ALLERGIES (Verified Allergy, Unknown, 09/02/17) Subjective afebrile no leukocytosis R foot pain improving Objective Vital Signs Last 24 Hour Vital Signs Date Time Temp Pulse Resp B/P (MAP) Pulse Ox O2 Delivery O2 Flow Rate FiO2 10/07/17 12:00 97.6 105 20 135/89 (104) 97 97.6 10/07/17 10:00 128/89 10/07/17 09:00 Room Air 10/07/17 08:39 100 128/89 10/07/17 08:00 98.4 100 20 128/89 (102) 97 98.4 10/07/17 04:00 98.7 94 20 126/88 (101) 97 98.7 10/07/17 03:28 130/77 10/06/17 21:00 Room Air 10/06/17 20:00 98.2 103 20 130/77 (94) 98 98.2 10/06/17 18:00 126/86 8/26/18 16:00 98.7 87 20 126/86 (99) 99 98.7 Height (Feet): 5 Height (Inches): 5.00 Weight (Pounds): 146 Objective General: no distress HEENT: no oral lessions; scalp lesion healing Heart: RRR, no murmurs Lungs: CTA x2 ABD: S+D, ND, BS+ Extremity no edema or cellulitis Laboratory Tests Test 10/07/17 07:40 White Blood Count 9.4 K/UL (4.8-10.8) Red Blood Count 3.44 M/UL (4.70-6.10) L Hemoglobin 11.0 G/DL (14.2-18.0) L Hematocrit 33.0 % (42.0-52.0) L Mean Corpuscular Volume 96 FL (80-99) Mean Corpuscular Hemoglobin 31.9 PG (27.0-31.0) H Mean Corpuscular Hemoglobin Concent 33.4 G/DL (32.0-36.0) Red Cell Distribution Width 13.2 % (11.6-14.8) Platelet Count 480 K/UL (150-450) H Mean Platelet Volume 5.9 FL (6.5-10.1) L Neutrophils (%) (Auto) 70.7 % (45.0-75.0) Lymphocytes (%) (Auto) 17.6 % (20.0-45.0) L Monocytes (%) (Auto) 7.5 % (1.0-10.0) Eosinophils (%) (Auto) 3.2 % (0.0-3.0) H Basophils (%) (Auto) 1.1 % (0.0-2.0) Sodium Level 139 MMOL/L (136-145) Potassium Level 4.0 MMOL/L (3.5-5.1) Chloride Level 102 MMOL/L (98-107) Carbon Dioxide Level 25 MMOL/L (21-32) Anion Gap 12 mmol/L (5-15) Blood Urea Nitrogen 21 mg/dL (7-18) H Creatinine 0.8 MG/DL (0.55-1.30) Estimat Glomerular Filtration Rate > 60 mL/min (>60) Glucose Level 137 MG/DL (74-106) H Calcium Level 9.7 MG/DL (8.5-10.1) Current Medications Medications (Trade) Dose Ordered Sig/Krystyna Route PRN Reason Start Time Stop Time Status Last Admin Dose Admin Acetaminophen (Tylenol) 650 mg Q4H PRN ORAL Mild Pain/Temp > 100.5 10/06/17 11:15 11/05/17 11:14 10/07/17 08:40 Aluminum Hydroxide (Amphojel) 1,920 mg Q8H ORAL 10/03/17 09:00 11/02/17 08:59 10/07/17 08:40 Amlodipine Besylate (Norvasc) 2.5 mg DAILY ORAL 09/23/17 09:00 10/23/17 08:59 10/07/17 08:39 Clonidine HCl (Catapres Tab) 0.1 mg Q8H ORAL 09/17/17 18:00 10/10/17 03:59 10/07/17 03:28 Epoetin Joel (Procrit (for non ESRD use)) 3,000 units SAT-SAT-SAT SUBQ 09/23/17 21:00 10/23/17 20:59 10/04/17 20:16 Gabapentin (Neurontin) 300 mg THREE TIMES A DAY ORAL 10/06/17 13:00 11/02/17 17:59 10/07/17 12:15 Lidocaine (Lidoderm 5% PATCH) 1 patch DAILY TDERMAL 10/04/17 09:00 11/03/17 08:59 10/07/17 08:41 Menthol/Methyl Salicylate (Bengay) 1 applic Q6H PRN TOPIC For Pain 09/28/17 14:15 10/28/17 14:14 10/05/17 22:15 Pantoprazole (Protonix) 40 mg Q12HR ORAL 09/18/17 14:00 10/18/17 13:59 10/07/17 08:39 Quetiapine Fumarate (SEROquel) 50 mg DAILY ORAL 09/17/17 09:00 10/17/17 08:59 10/01/17 08:22 Quetiapine Fumarate (SEROquel) 50 mg Q4H PRN ORAL agitation 09/10/17 14:00 10/10/17 13:59 09/18/17 01:47 Quetiapine Fumarate (SEROquel) 50 mg QLUNCH ORAL 09/17/17 11:30 10/17/17 11:29 09/27/17 11:34 Quetiapine Fumarate (SEROquel) 100 mg BEDTIME ORAL 09/16/17 21:00 10/16/17 20:59 10/06/17 20:17 Tamsulosin HCl (Flomax) 0.4 mg BEDTIME ORAL 09/20/17 12:00 10/20/17 11:59 10/06/17 20:17 Krystal Romero M.D. Oct 07, 2017 13:04
--- NOTE | 2017-10-07 13:37 | General Progress Note ---
Assessment/Plan Problem List: (1) Substance abuse ICD Codes: F19.10 - Other psychoactive substance abuse, uncomplicated SNOMED: 67232177 (2) Respiratory failure ICD Codes: J96.90 - Respiratory failure, unspecified, unspecified whether with hypoxia or hypercapnia SNOMED: 389347298 Qualifiers: Qualified Codes: J96.01 - Acute respiratory failure with hypoxia (3) Rhabdomyolysis ICD Codes: M62.82 - Rhabdomyolysis SNOMED: 325316951 Qualifiers: Qualified Codes: T79.6XXA - Traumatic ischemia of muscle, initial encounter (4) NSTEMI (non-ST elevated myocardial infarction) ICD Codes: I21.4 - Non-ST elevation (NSTEMI) myocardial infarction SNOMED: 225781803 (5) LUCRECIA (acute kidney injury) ICD Codes: N17.9 - Acute kidney failure, unspecified SNOMED: 27940984 Status: stable, progressing Assessment/Plan ot pt diet abx neuro psyc eval dc per pt request Subjective Constitutional: Reports: weakness Allergies: Coded Allergies: NO KNOWN ALLERGIES (Verified Allergy, Unknown, 09/02/17) All Systems: reviewed and negative except above Subjective calm in bed Objective Last 24 Hour Vital Signs Date Time Temp Pulse Resp B/P (MAP) Pulse Ox O2 Delivery O2 Flow Rate FiO2 10/07/17 12:00 97.6 105 20 135/89 (104) 97 97.6 10/07/17 10:00 128/89 10/07/17 09:00 Room Air 10/07/17 08:39 100 128/89 10/07/17 08:00 98.4 100 20 128/89 (102) 97 98.4 10/07/17 04:00 98.7 94 20 126/88 (101) 97 98.7 10/07/17 03:28 130/77 10/06/17 21:00 Room Air 10/06/17 20:00 98.2 103 20 130/77 (94) 98 98.2 10/06/17 18:00 126/86 10/06/17 16:00 98.7 87 20 126/86 (99) 99 98.7 Intake and Output 10/06/17 10/07/17 19:00 07:00 Intake Total 1000 ml 500 ml Output Total 300 ml Balance 1000 ml 200 ml Intake Oral 1000 ml 500 ml Output Urine Total 300 ml # Voids 2 Laboratory Tests 10/07/17 07:40: White Blood Count 9.4, Red Blood Count 3.44L, Hemoglobin 11.0L, Hematocrit 33.0L , Mean Corpuscular Volume 96, Mean Corpuscular Hemoglobin 31.9H, Mean Corpuscular Hemoglobin Concent 33.4, Red Cell Distribution Width 13.2, Platelet Count 480H, Mean Platelet Volume 5.9L, Neutrophils (%) (Auto) 70.7, Lymphocytes (%) (Auto) 17.6L, Monocytes (%) (Auto) 7.5, Eosinophils (%) (Auto) 3.2H, Basophils (%) (Auto) 1.1, Sodium Level 139, Potassium Level 4.0, Chloride Level 102, Carbon Dioxide Level 25, Anion Gap 12, Blood Urea Nitrogen 21H, Creatinine 0.8, Estimat Glomerular Filtration Rate > 60, Glucose Level 137H, Calcium Level 9.7 Height (Feet): 5 Height (Inches): 5.00 Weight (Pounds): 146 General Appearance: alert EENT: normal ENT inspection Neck: normal alignment Cardiovascular: normal peripheral pulses, normal rate, regular rhythm Respiratory/Chest: chest wall non-tender, lungs clear, normal breath sounds Abdomen: normal bowel sounds, non tender, soft Extremities: normal inspection Edema: no edema noted Arm (L), no edema noted Arm (R), no edema noted Leg (L), no edema noted Leg (R), no edema noted Pedal (L), no edema noted Pedal (R), no edema noted Generalized Neurologic: motor weakness Skin: normal pigmentation, warm/dry Reid Anaya DO Oct 07, 2017 13:37
--- NOTE | 2017-10-07 14:05 | General Progress Note ---
Assessment/Plan Status: stable Assessment/Plan # Anemia of chronic disease. Anemia w/u has been reviewed. Will trend CBC daily. --> Continue to closely monitor for stability. --> Ferritin and tibc reviewed, consistent with anemia of chronic disease --> Hgb goal above >7 --> 8/5: 1 unit PRBC, 88: 1 unit, 8/9: 1 unit, --> CURRENT Hgb of 11.0, stable. --> given elev Cr, will start low dose epogen once a week dosing --> Pt on procrit # Leukocytosis. due to infection, however no source is found. Afebrile. --> Closely monitor for improvement. --> CURRENT WBC 9.4, wnl --> Pt has completed IV abx. --> Consider liver abscess if leukocytosis does not resolve. # Thrombocytosis. Likely reactive process to anemia --> Closely monitor PLT count for improvement. --> should improve with improvement in anemia as well --> CURRENT PLT count of 480, elevated. # Transaminitis. Improved. The time the note was entered does not necessarily correspond to the time the patient was seen. Subjective Date patient seen: Oct 07, 2017 ROS Limited/Unobtainable: Yes Hematologic/Lymphatic: Reports: anemia Allergies: Coded Allergies: NO KNOWN ALLERGIES (Verified Allergy, Unknown, 09/02/17) All Systems: reviewed and negative except above Subjective Pt awake and alert. No acute events. H/H stable. DC planning. Objective Last 24 Hour Vital Signs Date Time Temp Pulse Resp B/P (MAP) Pulse Ox O2 Delivery O2 Flow Rate FiO2 10/07/17 12:00 97.6 105 20 135/89 (104) 97 97.6 10/07/17 10:00 128/89 10/07/17 09:00 Room Air 10/07/17 08:39 100 128/89 10/07/17 08:00 98.4 100 20 128/89 (102) 97 98.4 10/07/17 04:00 98.7 94 20 126/88 (101) 97 98.7 10/07/17 03:28 130/77 10/06/17 21:00 Room Air 10/06/17 20:00 98.2 103 20 130/77 (94) 98 98.2 8/26/18 18:00 126/86 10/06/17 16:00 98.7 87 20 126/86 (99) 99 98.7 Intake and Output 10/06/17 10/07/17 19:00 07:00 Intake Total 1000 ml 500 ml Output Total 300 ml Balance 1000 ml 200 ml Intake Oral 1000 ml 500 ml Output Urine Total 300 ml # Voids 2 Laboratory Tests 10/07/17 07:40: White Blood Count 9.4, Red Blood Count 3.44L, Hemoglobin 11.0L, Hematocrit 33.0L , Mean Corpuscular Volume 96, Mean Corpuscular Hemoglobin 31.9H, Mean Corpuscular Hemoglobin Concent 33.4, Red Cell Distribution Width 13.2, Platelet Count 480H, Mean Platelet Volume 5.9L, Neutrophils (%) (Auto) 70.7, Lymphocytes (%) (Auto) 17.6L, Monocytes (%) (Auto) 7.5, Eosinophils (%) (Auto) 3.2H, Basophils (%) (Auto) 1.1, Sodium Level 139, Potassium Level 4.0, Chloride Level 102, Carbon Dioxide Level 25, Anion Gap 12, Blood Urea Nitrogen 21H, Creatinine 0.8, Estimat Glomerular Filtration Rate > 60, Glucose Level 137H, Calcium Level 9.7 Height (Feet): 5 Height (Inches): 5.00 Weight (Pounds): 146 General Appearance: no apparent distress EENT: PERRL/EOMI Neck: normal alignment Cardiovascular: tachycardia Respiratory/Chest: no respiratory distress Abdomen: soft Diogenes Flores MD Oct 07, 2017 14:05
--- NOTE | 2017-10-07 17:11 | Nephrology Progress Note ---
Assessment/Plan Assessment 1.LUCRECIA resolved 2.Drug overdose 3.hypomagnesemia Plan replace electrolyte as need it monitoring renal function monitoring out put Subjective Subjective no complaints Objective Objective Last 24 Hour Vital Signs Date Time Temp Pulse Resp B/P (MAP) Pulse Ox O2 Delivery O2 Flow Rate FiO2 10/07/17 12:00 97.6 105 20 135/89 (104) 97 97.6 10/07/17 10:00 128/89 10/07/17 09:00 Room Air 10/07/17 08:39 100 128/89 10/07/17 08:00 98.4 100 20 128/89 (102) 97 98.4 10/07/17 04:00 98.7 94 20 126/88 (101) 97 98.7 10/07/17 03:28 130/77 10/06/17 21:00 Room Air 10/06/17 20:00 98.2 103 20 130/77 (94) 98 98.2 10/06/17 18:00 126/86 Intake and Output 10/06/17 10/07/17 19:00 07:00 Intake Total 1000 ml 500 ml Output Total 300 ml Balance 1000 ml 200 ml Intake Oral 1000 ml 500 ml Output Urine Total 300 ml # Voids 2 Laboratory Tests 10/07/17 07:40: White Blood Count 9.4, Red Blood Count 3.44L, Hemoglobin 11.0L, Hematocrit 33.0L , Mean Corpuscular Volume 96, Mean Corpuscular Hemoglobin 31.9H, Mean Corpuscular Hemoglobin Concent 33.4, Red Cell Distribution Width 13.2, Platelet Count 480H, Mean Platelet Volume 5.9L, Neutrophils (%) (Auto) 70.7, Lymphocytes (%) (Auto) 17.6L, Monocytes (%) (Auto) 7.5, Eosinophils (%) (Auto) 3.2H, Basophils (%) (Auto) 1.1, Sodium Level 139, Potassium Level 4.0, Chloride Level 102, Carbon Dioxide Level 25, Anion Gap 12, Blood Urea Nitrogen 21H, Creatinine 0.8, Estimat Glomerular Filtration Rate > 60, Glucose Level 137H, Calcium Level 9.7 Height (Feet): 5 Height (Inches): 5.00 Weight (Pounds): 146 Objective HEAD AND NECK: No JVP. No LAD. G-tube is in place. Head is atraumatic and normocephalic. LUNGS: He has decreased breathing sounds on the both sides. CARDIAC: Regular rate and rhythm. S1 and S2. No murmur. No rub. ABDOMEN: Soft. Bowel sounds positive. EXTREMITIES: No edema. No clubbing. No cyanosis. Aixa Veloz MD Oct 07, 2017 17:11
--- NOTE | 2017-10-08 13:07 | Discharge Summary ---
Discharge Summary Discharge Summary _ DATE OF ADMISSION: 08/29/2017 DATE OF DISCHARGE: 10/07/2017 REASON FOR ADMISSION: 37 years old male presented to emergency department unresponsive after drug overdose. Paramedics were called to the patient's hotel room apparently by treasury manager. Patient found to be unresponsive with drug paraphernalia. Patient received Narcan with some improvement. Glucose was in 50s, ampule of glucose administered, repeated glucose improved to 100s. No evidence of trauma. Upon evaluation patient was febrile 101.7, tachycardic with heart rate 138, tachypneic with respiratory rate 28, hypoxemic and unresponsive. Patient required placement on 100% nonrebreathing mask and saturated only 89%. Laboratory workup revealed elevated lactic acid 5.5. No leukocytosis WBC 8.5, stable hemoglobin and hematocrit. BUN 31 creatinine 3.6. Potassium 5.1. AST 478 ,ALT 159. CK above 10,000, lipase above 2000. Troponin - 1.014. EKG revealed sinus tachycardia, no acute ischemic changes. Urine toxicology screen was positive for opiates, cocaine , amphetamine and marijuana. Serum salicylate, Tylenol and alcohol level were negative. Urinalysis without evidence of UTI. ABG with evidence of metabolic acidosis. Patient required emergency oral intubation. CT head revealed no acute intracranial pathology. Chest x-ray revealed diffuse bilateral interstitial and airspace disease, and confirmed placement of endotracheal tube. Venous duplex bilateral lower extremity was negative. Abdominal x-ray confirmed placement of NG tube. Patient had central catheter placed via right femoral artery, and x-ray confirmed placement. Blood pressure was unstable and kept dropping. Patient received few boluses . Patient started on bicarbonate and fentanyl drip. Blood pressure initially responded to boluses, then dropped again. Patient started on Levophed and admitted to ICU for further management with diagnoses of severe sepsis, shock, aspiration pneumonia, multiorgan failure , polysubstance abuse with overdose, rhabdomyolysis, acute respiratory failure , requiring intubation , elevated troponin, possibly NSTEMI, acute kidney injury. CONSULTANTS: muck miner blasting Dr. Mcdonough neurologist Dr. Ricketts pulmonary/critical care Dr. Andre ID specialist Dr. Carranza GI specialist Dr. Chavez spinner concrete pipe Dr. Veloz psychiatrist urologist Dr. Bhatia pain specialist Dr. Vigil HOSPITAL COURSE: Patient admitted to ICU. Ventilator support and pulmonary toilet provided. Outside Deliverer closely followed . Patient was followed up with chest x-ray and ABG. Ventilator setting titrated as needed. Patient started on empiric antibiotics for aspiration pneumonia. Patient was on Levophed drip , titrated to keep mean arterial pressure above 65. patient was able soon to be weaned from Levophed. Patient was able to be extubated on 09/03. Supplemental oxygen provided as needed to keep pulse oximetry above 92%. ID specialist closely followed . Initial blood culture, urine culture and sputum culture were negative. Patient was on antibiotics as per ID specialist recommendations. Integrity Analyst closely followed. Patient undergone insertion off temporary hemodialysis catheter via transjugular right vein by interventional radiology on 08/30. Patient was on gentle hydration initially. Hemodialysis started as per spinner concrete pipe recommendations with close monitoring of renal parameters and electrolytes. Electrolytes corrected as needed. Nephrotoxins were avoided. Patient subsequently undergone permanent hemodialysis catheter placement by interventional radiology on 09/11/2017.. As patient was recovering , renal function returned to normal. Prior to discharge BUN 21, creatinine 0.8, electrolytes stable. Hemodialysis catheter was discontinued on 09/25/2017 by interventional radiologist. Job Development Specialist closely followed. According to muck miner blasting , elevated troponin was due to myocarditis secondary to combination of amphetamine and cocaine use. Patient also demonstrated on admission multiorgan failure such as acute kidney injury , shock liver ,acute pancreatitis, ,myocarditis, respiratory failure and encephalopathy. Job Development Specialist recommended conservative therapy and hemodynamic management with normal saline with bicarbonate . Echocardiogram revealed preserved ejection fraction 55-60%. No evidence of vegetation. Patient continued to have persistent leukocytosis. Patient undergone transesophageal echocardiogram procedure , which revealed no evidence of infected endocarditis. Blood pressure was managed with calcium channel omer, and remained stable. Initial sinus tachycardia was likely due to increased adrenergic flow ,given cocaine and amphetamine overdose. Urologist seen the patient due to evidence of scrotal edema. Car Washer recommended to urologist stated that the fifth was interstitial edema related to the third space and recommended scrotal elevation and observation. No aggressive for procedure was indicated at that time. Neurologist follow patient. According to neurologist patient had the acute toxic and metabolic encephalopathy due to the drug abuse on acute renal failure and on severe sepsis. As patient clinically improved on encephalopathy on improving as well and on discharge and an and resolved on Lasix during the stay in the hospital. 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 Were closely monitored with goal to keep low been above 7 devops architect closely follow. Patient required total of 3 units of packed red blood cell transfusion while in the hospital. Stool for occult blood 2 were negative. Patient was on on GI prophylaxis with a PPI. Thrombocytosis was likely reactive due to anemia. On leukocytosis was due to infectious process which eventually resolved. Lipase AST and LFT old down to normal. Patient complaining of pain in the left food. On pain specialist closely follow pain specialist stated the patient has a neuropathic pain and left foot pain and right foot drop. Podiatry seen the patient stated that left hip pain likely secondary to left x- ray left foot x-ray was negative. MRI of left on foods revealed no acute or significant abnormality. Small cyst likely degenerated at the base of the third metatarsal. Left foot pain likely due to the or component of plantar fasciitis and neuropathic pain. Pain management provided and pain was controlled. On psychiatry seen and evaluated patient diagnosed patient major depression disorder as well as the polysubstance dependency and updated benzodiazepine withdrawal. Psychiatrist optimize psychiatric medication regimen. W Abdominal ultrasound revealed gallbladder sludge but no gallstones or dilated ducts. Possible fatty liver, borderline hepatomegaly. CT of abdomen and pelvis revealed evidence of anasarca with diffuse edema , compressive atelectasis at both lung bases. There was questionable low attenuation of the bilateral gluteal muscular nature as well as the slight thickening of the left obturator muscle would be active active follow-up nonspecific the . possibility of myositis should be considered. Indium scan white blood cell scan done due to persistent leukocytosis to rule out occult infection revealed no definite abnormal focus of radiotracer uptake. MRI of the pelvis revealed discrete 3 x 3 but by 7.3 cm fluid collection in the lateral left buttock muscular nature. Mild probably an abscess, negative finding on recent tonsillectomy blood cell scan indicated was probably it is noninfected fluid collection. Surgeon consult was requested. Surgeon on revealed on review the MRI results and stated that he the clinic physical exam was benign patient likely have noninfected fluid collection but given patient's history and complex medical issues as well as the fevers and persistent leukocytosis patient will benefit from fluid evaluation to ensure that is not infected. Patient subsequently undergone drainage of CT guided on abscess left buttock fluid collection which revealed no purulent material aspirated only small amount of blood was aspirated. Given the finding and absence of visible collection ultrasound imaging most likely represent an area of cellulitis possibly a small component of hematoma. Repeated CT of the abdomen and pelvis on revealed interim development of right buttock hematoma measuring 6 x 3.5 by at least 11 cm.. Surgeon revealed a review CT of the abdomen and pelvis and stated that fluid collection was sent to sepsis and pelvis on and no etiology AND BLOOD CULTURE NEGATIVE ON NO ON NO ACUTE SURGICAL INTERVENTION WAS NECESSARY AT THIS TIME. Per infectious disease specialist, patient status post treatment with a for aspiration pneumonia and for antibiotics. Blood culture negative. On last the bedside like blood cell negative. On culture off the on fluid collection negative. Urine culture is a low account likely colonizer fever resolved leukocytosis resolved patient status post antibiotics. Infectious disease doctor recommended to keep patient off antibiotics. Patient was counseled on abstinence from street drugs. Patient was working with physical and occupational therapists. grocery worker met throughout the patient stay and prior to discharge with patient and his mother. grocery worker received denial for service from [facility]. grocery worker met with patient to address further discharge planning. grocery worker discussed outpatient rehabilitation in [facility] at outpatient rehabilitation department for 3 times a week for one month. Mother declined and stated that she was planning to drive her son to [place] where he could receive outpatient services. Mother was provided with information on [facility], where she wanted her son to go. Initial contact was made by phone with elementary school social worker. Information on location and phone number provided to patient. AFO boot was delivered today. Front wheel walker provided to patient. Medication were filled in [facility] pharmacy. Unfortunately Medical did not cover wheelchair. grocery worker provided patient's mother with surrounding area suppliers of the wheelchair. Mother will purchase wheelchair out of pocket. Patient was stable for discharge . FINAL DIAGNOSES: Severe sepsis with shock Acute respiratory failure , requiring intubation ( s/p intubation extubation ) Polysubstance abuse with drug overdose Aspiration pneumonia Acute renal failure requiring hemodialysis , resolved Multiorgan failure - resolved Transaminitis, likely shock liver - resolved Elevated troponin , most likely secondary to myocarditis Possible NSTEMI Hypertension Toxic metabolic encephalopathy, secondary to overdose, severe sepsis and acute kidney injury-resolved Right gluteal hematoma Rhabdomyolysis-resolved Acute pancreatitis- resolved Lactic acidosis -resolved Anemia of chronic disease HCV infection Scrotal edema Neuropathic pain Left foot pain probably due to cyst versus component of plantar fasciitis and neuropathic pain Right foot drop DISCHARGE MEDICATIONS: See Medication Reconciliation list. DISCHARGE INSTRUCTIONS: Patient was discharged home, accompanied by his mother, Mother will drive patient to her place in [place] with outpatient follow up at Rehabilitation center. Find and follow up with primary care provider at the new location. I have been assigned to dictate discharge summary for this account. I was not involved in the patient's management. Jaymie Chavez NP Oct 08, 2017 13:06
== END 2017-10-07 16:56 | disposition home or self-care (01) | DRG 720 ==
LOC: EMR 13:01 → ICU 14:14 → EDBEDREQ 14:34 → 2W 09-04 20:44 → 4E 09-05 19:23
PROC: 0BH17EZ Insertion of Endotracheal Airway into Trachea, Via Natural or Artificial Opening (ICD-10-PCS; principal; 2017-08-29)
PROC: 5A1955Z Respiratory Ventilation, Greater than 96 Consecutive Hours (ICD-10-PCS; principal; 2017-08-29)
PROC: 06HM33Z Insertion of Infusion Device into Right Femoral Vein, Percutaneous Approach (ICD-10-PCS; principal; 2017-08-29)
PROC: 02HV33Z Insertion of Infusion Device into Superior Vena Cava, Percutaneous Approach (ICD-10-PCS; 2017-08-30)
PROC: B548ZZA Ultrasonography of Superior Vena Cava, Guidance (ICD-10-PCS; 2017-08-30)
PROC: B245ZZ4 Ultrasonography of Left Heart, Transesophageal (ICD-10-PCS; 2017-09-10)
PROC: 05HM33Z Insertion of Infusion Device into Right Internal Jugular Vein, Percutaneous Approach (ICD-10-PCS; 2017-09-11)
PROC: 0J993ZZ Drainage of Buttock Subcutaneous Tissue and Fascia, Percutaneous Approach (ICD-10-PCS; 2017-09-13)
PROC: 05PYX3Z Removal of Infusion Device from Upper Vein, External Approach (ICD-10-PCS; 2017-09-25)
DX: A41.9 Sepsis, unspecified organism (principal); I21.4 Non-ST elevation (NSTEMI) myocardial infarction; J96.01 Acute respiratory failure with hypoxia; K72.00 Acute and subacute hepatic failure without coma; J69.0 Pneumonitis due to inhalation of food and vomit; G92 Toxic encephalopathy; K85.90 Acute pancreatitis without necrosis or infection, unspecified; N17.9 Acute kidney failure, unspecified; M62.82 Rhabdomyolysis; E83.51 Hypocalcemia; T40.5X1A Poisoning by cocaine, accidental (unintentional), initial encounter; T43.621A Poisoning by amphetamines, accidental (unintentional), initial encounter; Y92.89 Other specified places as the place of occurrence of the external cause; E87.5 Hyperkalemia; F32.9 Major depressive disorder, single episode, unspecified; F11.23 Opioid dependence with withdrawal; N50.89 Other specified disorders of the male genital organs; M21.371 Foot drop, right foot; G62.9 Polyneuropathy, unspecified; I10 Essential (primary) hypertension; M79.81 Nontraumatic hematoma of soft tissue; D64.9 Anemia, unspecified; R74.0 Nonspecific elevation of levels of transaminase and lactic acid dehydrogenase [LDH]; K57.90 Diverticulosis of intestine, part unspecified, without perforation or abscess without bleeding; B19.20 Unspecified viral hepatitis C without hepatic coma; G57.31 Lesion of lateral popliteal nerve, right lower limb; G57.41 Lesion of medial popliteal nerve, right lower limb; E16.2 Hypoglycemia, unspecified; D47.3 Essential (hemorrhagic) thrombocythemia
CPT/HCPCS: 36415; 36569; 36590; 36600; 70450; 71045; 71046; 72170; 72195; 73502; 74018; 74176; 74177; 75989; 76000; 76700; 76937; 78807; 80048; 80053; 80076; 80202; 80307; 80329; 81001; 81003; 82164; 82248; 82270; 82306; 82550; 82607; 82728; 82746; 82803; 82977; 83036; 83540; 83550; 83605; 83615; 83690; 83735; 83880; 84100; 84133; 84300; 84439; 84443; 84481; 84484; 84550; 85007; 85025; 85060; 85610; 85651; 85730; 86140; 86592; 86703; 86704; 86705; 86708; 86709; 86780; 86803; 86850; 86900; 86901; 86920; 87040; 87045; 87070; 87081; 87086; 87181; 87205; 87324; 87340; 87491; 87517; 87522; 87536; 87590; 89050; 93005; 93306; 93312; 93970; 94002; 94003; 94150; 94664; 94760; 97803; 99291; A9570; J2250; J2405; J8499